=== PATIENT | male | born 1965 | race Hispanic/Latino ===

== ENCOUNTER 2021-01-22 10:44 | Inpatient (IN) | payer SELFPAY ==
[2021-01-22] MEDS ORDERED: cefTRIAXone/NS 1 GM/50 ML 1 GM/50 ML BAG IV NR (11:04)
[2021-01-22] MEDS ORDERED: AZITHROMYCIN/NS 500 MG/250 ML 500 MG/250 ML BAG IV NR (11:04)
--- NOTE | 2021-01-22 11:13 | Emergency Department Report ---
ED Fever HPI - General Chief Complaint: Dyspnea/Respdistress Stated Complaint: ASHLEIGH/COVID POSS X 6 DAYS PUI?: Yes Time Seen by Provider: 01/22/21 10:58 Source: patient, EMS Exam Limitations: no limitations - History of Present Illness Initial Comments: Chief complaint: Shortness of breath, Covid positive HPI: This is a 55-year-old male with history of severe obesity weight 268 pounds and venous insufficiency who presents with severe shortness of breath via EMS. On January 10 patient began having symptoms of Covid 19. He was diagnosed with PCR test on January 16 at [facility]. He was also diagnosed with Covid pneumonia at that time. His oxygen saturation was normal. He was discharged home. Over the past few days, his symptoms worsen. Today his became scared when he seemed "delusional". He also had a episode of incontinence. His symptoms include fever, chills, headache, cough, shortness of breath, body aches. He also has loss of taste and smell. His and 2 children also have similar symptoms. Patient's oxygen saturations 68% on room air according to EMS. He received albuterol, magnesium, Solu-Medrol via EMS. Patient remained hypoxic 82% in spite oxygen via nonrebreather. Patient does not smoke cigarettes. He denies any recent travel. Denies chest pain or leg pain. 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 Timing/Duration: other (Symptoms began 12 days ago, diagnosed with COVID-19 6 days ago at [facility]) Fever Severity/Quality: subjective Associated Symptoms: cough, headache, muscle aches, shortness of breath ED Review of Systems ROS: Stated complaint: ASHLEIGH/COVID POSS X 6 DAYS Other details as noted in HPI Comment: All other systems reviewed and negative Constitutional: chills, fever, malaise Respiratory: cough, shortness of breath, wheezing Cardiovascular: denies: chest pain Gastrointestinal: denies: abdominal pain Neurological: headache ED Past Medical Hx - Past Medical History Previous Medical History?: Yes Additional medical history: Venous insufficiency, severe obesity - Surgical History Past Surgical History?: No - Family History Family history: hypertension - Social History Smoking Status: Former Smoker (Patient stopped smoking 20 years ago) Substance Use Type: None ED Physical Exam - General Limitations: No Limitations General appearance: alert, other (Speaking full sentences with moderate effort, appears out of breath) - Head Head exam: Present: atraumatic, normocephalic - Eye Eye exam: Present: normal appearance - ENT ENT exam: Present: mucous membranes dry - Neck Neck exam: Present: normal inspection, full ROM - Respiratory Respiratory exam: Present: respiratory distress, wheezes, rales, rhonchi, decreased breath sounds. Absent: prolonged expiratory - Cardiovascular Cardiovascular Exam: Present: regular rate, normal rhythm, normal heart sounds. Absent: systolic murmur, diastolic murmur, rubs, gallop - GI/Abdominal GI/Abdominal exam: Present: soft, normal bowel sounds. Absent: distended, tenderness, guarding, rebound - Rectal Rectal exam: Present: deferred - Extremities Exam Extremities exam: Present: other (Hyperpigmented patches nonpitting edema both legs) - Neurological Exam Neurological exam: Present: alert, oriented X3 - Psychiatric Psychiatric exam: Present: normal affect, anxious - Skin Skin exam: Present: warm, rash (Lower legs hyperpigmented discoloration), pallor (Grayish discoloration pale) ED Course Vital Signs 01/22/21 01/22/21 01/22/21 11:05 11:09 11:10 Pulse Rate 66 60 Respiratory 48 H 43 H Rate Blood Pressure 109/40 109/40 O2 Sat by Pulse 91 91 91 Oximetry - Reevaluation(s) Reevaluation #1: 01/22/21 13:04 Repeat blood pressure 125/70. No indication for septic shock. Will need trending lactic acid levels in order to rule out or rule in bacteremia. Patient feels much better after 2-hour course of BiPAP. Normal saline bolus ordered to address dehydration. ED Medical Decision Making - Lab Data Result diagrams: 01/22/21 11:06 01/22/21 11:06 - Radiology Data Radiology results: report reviewed [facility] [address] [place] [address] XRay Report Signed Patient: ABHINAV HUNTER MR#: [id number] : 1965 Acct:[id number] Age/Sex: 55 / M ADM Date: 01/22/21 Loc: ED Attending Dr: Ordering Physician: Catherine Thompson MD Date of Service: 08/16/21 Procedure(s): XR chest 1V ap Accession Number(s): [id number] cc: Catherine Thompson MD Fluoro Time In Minutes: XR chest 1V ap INDICATION / CLINICAL INFORMATION: COVID positive hx of Pneumonia hypoxia COMPARISON: None available. FINDINGS: SUPPORT DEVICES: None. HEART / MEDIASTINUM: No significant abnormality. LUNGS / PLEURA: Patchy bilateral airspace disease in a peripheral predilection. Costophrenic sulci are sharp. No pneumothorax. ADDITIONAL FINDINGS: No significant additional findings. IMPRESSION: 1. Bilateral airspace disease consistent with patient's provided history of Covid pneumonia. Signer Name: Linwood Webber MD Signed: 01/22/2021 11:30 AM Workstation Name: [id number] Transcribed By: CS Dictated By: Linwood Webber MD Electronically Authenticated By: Linwood Webber MD Signed Date/Time: 01/22/21 113 DD/ 1130 TD/TT: - Medical Decision Making Acute respiratory failure hypoxia due to COVID-19 multifocal pneumonia. Patient received magnesium, Solu-Medrol and albuterol. Patient's oxygen saturation 59% on room air upon arrival. I observe hypoxia while patient was being placed on noninvasive positive pressure ventilation. Patient received ceftriaxone and azithromycin for possible bacterial superinfection. Patient is admitted to IMCU in fair condition. Patient does have leukocytosis with left shift, bacterial infection is a consideration. Covid markers are elevated including D-dimer ferritin LDH CRP. I discussed case with admitting hospitalist. Patient is admitted to IMCU fair condition. Critical Care Time: Yes Critical care time in (mins) excluding proc time.: 40 Critical care attestation.: If time is entered above; I have spent that time in minutes in the direct care of this critically ill patient, excluding procedure time. 40 minutes of critical care time excluding procedures were used in the care of the patient. After hearing EMS report over the radio, I asked charge nurse to arrange for respiratory therapist. I came immediately to the bedside upon patient's arrival. I obtained history from EMS at the bedside. I immediately asked respiratory therapist to apply noninvasive positive pressure ventilation with BiPAP. I was concerned for imminent airway compromise. I discussed treatment plan with the nursing team members. I reviewed electronic record. Patient required multiple interventions and reassessments. ED Disposition Clinical Impression: Acute respiratory failure due to COVID-19, Multifocal pneumonia Disposition: 09 ADMITTED INPATIENT Is pt being admited?: Yes Does the pt Need Aspirin: No Condition: Fair Instructions: Bacterial Pneumonia (ED)
--- NOTE | 2021-01-22 11:34 | XRay Report ---
XR chest 1V ap INDICATION / CLINICAL INFORMATION: COVID positive hx of Pneumonia hypoxia COMPARISON: None available. FINDINGS: SUPPORT DEVICES: None. HEART / MEDIASTINUM: No significant abnormality. LUNGS / PLEURA: Patchy bilateral airspace disease in a peripheral predilection. Costophrenic sulci ar e sharp. No pneumothorax. ADDITIONAL FINDINGS: No significant additional findings. IMPRESSION: 1. Bilateral airspace disease consistent with patient's provided history of Covid pneumonia. Signer Name: Linwood Webber MD Signed: 01/22/2021 11:30 AM Workstation Name: [id number]
[2021-01-22 11:35] LABS: Hemoglobin 15.8 gm/dl (11.8-15.2); Mean Corpuscular HGB Conc 32 % (32-34); Mean Corpuscular Volume 87 fl (84-94); Platelet Count 329 K/mm3 (140-440); Red Blood Count 5.63 M/mm3 (3.65-5.03); Red Cell Distribution Width 14.2 % (13.2-15.2)
[2021-01-22 11:56] LABS: Alanine Aminotransferase 25 units/L (7-56); Albumin 2.9 g/dL (3.9-5); BUN/Creatinine Ratio 36; Blood Urea Nitrogen 32 mg/dL (9-20); C-Reactive Protein 3.3 mg/dL (0.00-1.30); Calcium 8.7 mg/dL (8.4-10.2); Hemolysis Index 9
[2021-01-22 12:10] LABS: Band Neutrophils # (Manual) 0.4 K/mm3; Total Cells Counted 100
[2021-01-22 12:11] LABS: Platelet Estimate Consistent w Auto; RBC Morphology Normal
[2021-01-22] MEDS ORDERED: SODIUM CHLORIDE 0.9% 1000 ML 1,000 ML IV ONE (12:59)
--- NOTE | 2021-01-22 23:01 | History and Physical Report ---
History of Present Illness Date of examination: 01/22/21 Date of admission: 01/22/21 13:01 Chief complaint: Shortness of breath of 4 days History of present illness: 55-year-old male with history of morbid obesity weighing about 268 pounds and venous insufficiency comes in for shortness of breath of 4 days duration. Patient started having symptoms of a viral syndrome around January 10. Patient was diagnosed with positive PCR test for khan on January 16 at [facility]. Because he was saturating well on room air patient was discharged home with instructions. Patient started worsening over the last 4 days and becoming very short of breath and also delusional. He also had an episode of incontinence. Patient symptoms improved fever chills headache cough shortness of breath and body aches. Patient also has loss of taste and smell. Is his and 2 children also have similar symptoms. Patient oxygen saturation was 60% on room air according to EMS. He received albuterol magnesium Solu-Medrol by EMS. Patient remained hypoxic 82% in spite of oxygen via nonrebreather. And patient was started on BiPAP in the emergency room. Patient is not a smoker. No recent travel. No chest pain or leg pain. 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 - Past Medical History Previous Medical History?: Yes Additional medical history: Venous insufficiency, severe obesity - Surgical History Past Surgical History?: No - Family History Family history: hypertension - Social History Smoking Status: Former Smoker (Patient stopped smoking 20 years ago) Substance Use Type: None Review of Systems ROS: Stated complaint: ASHLEIGH/COVID POSS X 6 DAYS Other details as noted in HPI Comment: All other systems reviewed and negative Constitutional: chills, fever, malaise Respiratory: cough, shortness of breath, wheezing Cardiovascular: denies: chest pain Gastrointestinal: denies: abdominal pain Neurological: headache Medications and Allergies Allergies Allergy/AdvReac Type Severity Reaction Status Date / Time No Known Allergies Allergy Unverified 01/22/21 11:26 Exam - Constitutional Vitals: Temp Pulse Resp BP Pulse Ox 98.1 F 56 L 36 H 130/52 92 01/22/21 20:08 01/22/21 22:15 01/22/21 22:15 01/22/21 22:15 01/22/21 22:15 General appearance: Present: severe distress, well-nourished - EENT Eyes: Present: PERRL ENT: hearing intact, clear oral mucosa - Neck Neck: Present: supple, normal ROM - Respiratory Respiratory effort: normal Respiratory: bilateral: CTA, rhonchi (Scattered rhonchi), wheezing (Scattered rhonchi) - Cardiovascular Heart rate: 78 Rhythm: regular Heart Sounds: Present: S1 & S2. Absent: rub, click - Extremities Extremities: no ischemia, pulses symmetrical, No edema Peripheral Pulses: within normal limits - Abdominal General gastrointestinal: Present: soft, non-tender, non-distended, normal bowel sounds Male genitourinary: Present: normal - Rectal Rectal Exam: deferred - Integumentary Integumentary: Present: clear, warm, dry - Musculoskeletal Musculoskeletal: gait normal, strength equal bilaterally - Psychiatric Psychiatric: appropriate mood/affect, intact judgment & insight - Neurologic Neurologic: CNII-XII intact, moves all extremities - Allied Health Allied health notes reviewed: nursing, case management HEART Score - HEART Score History: Slightly suspicious Age: 45-65 Risk factors: 1-2 risk factors Troponin: < normal limit - Critical Actions Critical Actions: 0-3 pts:0.9-1.7%risk of adverse cardiac event.Candidate for discharge Results - Labs CBC & Chem 7: 01/23/21 05:29 01/23/21 05:29 Labs: Laboratory Last Values WBC 19.2 K/mm3 (4.5-11.0) H 01/22/21 11:06 RBC 5.63 M/mm3 (3.65-5.03) H 01/22/21 11:06 Hgb 15.8 gm/dl (11.8-15.2) H 01/22/21 11:06 Hct 49.0 % (35.5-45.6) H 01/22/21 11:06 MCV 87 fl (84-94) 01/22/21 11:06 MCH 28 pg (28-32) 01/22/21 11:06 MCHC 32 % (32-34) 01/22/21 11:06 RDW 14.2 % (13.2-15.2) 01/22/21 11:06 Plt Count 329 K/mm3 (140-440) 01/22/21 11:06 Add Manual Diff Complete 01/22/21 11:06 Total Counted 100 01/22/21 11:06 Seg Neuts % (Manual) 92.0 % (40.0-70.0) H 01/22/21 11:06 Band Neutrophils % 2.0 % 01/22/21 11:06 Lymphocytes % (Manual) 1.0 % (13.4-35.0) L 01/22/21 11:06 Monocytes % (Manual) 5.0 % (0.0-7.3) 01/22/21 11:06 Nucleated RBC % 1.0 % (0.0-0.9) H 01/22/21 11:06 Seg Neutrophils # Man 17.7 K/mm3 (1.8-7.7) H 01/22/21 11:06 Band Neutrophils # 0.4 K/mm3 01/22/21 11:06 Lymphocytes # (Manual) 0.2 K/mm3 (1.2-5.4) L 01/22/21 11:06 Abs React Lymphs (Man) 0.0 K/mm3 01/22/21 11:06 Monocytes # (Manual) 1.0 K/mm3 (0.0-0.8) H 01/22/21 11:06 Eosinophils # (Manual) 0.0 K/mm3 (0.0-0.4) 01/22/21 11:06 Basophils # (Manual) 0.0 K/mm3 (0.0-0.1) 01/22/21 11:06 Metamyelocytes # 0.0 K/mm3 01/22/21 11:06 Myelocytes # 0.0 K/mm3 01/22/21 11:06 Promyelocytes # 0.0 K/mm3 01/22/21 11:06 Blast Cells # 0.0 K/mm3 01/22/21 11:06 WBC Morphology Not Reportable 01/22/21 11:06 Hypersegmented Neuts Not Reportable 01/22/21 11:06 Hyposegmented Neuts Not Reportable 01/22/21 11:06 Hypogranular Neuts Not Reportable 01/22/21 11:06 Smudge Cells Not Reportable 01/22/21 11:06 Toxic Granulation Not Reportable 01/22/21 11:06 Toxic Vacuolation Not Reportable 01/22/21 11:06 Dohle Bodies Not Reportable 01/22/21 11:06 Pelger-Huet Anomaly Not Reportable 01/22/21 11:06 Rd Rods Not Reportable 01/22/21 11:06 Platelet Estimate Consistent w auto 01/22/21 11:06 Clumped Platelets Not Reportable 01/22/21 11:06 Plt Clumps, EDTA Not Reportable 01/22/21 11:06 Large Platelets Not Reportable 01/22/21 11:06 Giant Platelets Not Reportable 01/22/21 11:06 Platelet Satelliting Not Reportable 01/22/21 11:06 Plt Morphology Comment Not Reportable 01/22/21 11:06 RBC Morphology Normal 01/22/21 11:06 Dimorphic RBCs Not Reportable 01/22/21 11:06 Polychromasia Not Reportable 01/22/21 11:06 Hypochromasia Not Reportable 01/22/21 11:06 Poikilocytosis Not Reportable 01/22/21 11:06 Anisocytosis Not Reportable 01/22/21 11:06 Microcytosis Not Reportable 01/22/21 11:06 Macrocytosis Not Reportable 01/22/21 11:06 Spherocytes Not Reportable 01/22/21 11:06 Pappenheimer Bodies Not Reportable 01/22/21 11:06 Sickle Cells Not Reportable 01/22/21 11:06 Target Cells Not Reportable 01/22/21 11:06 Tear Drop Cells Not Reportable 01/22/21 11:06 Ovalocytes Not Reportable 01/22/21 11:06 Helmet Cells Not Reportable 01/22/21 11:06 [place] Bodies Not Reportable 01/22/21 11:06 Sprague Rings Not Reportable 01/22/21 11:06 Cove Cells Not Reportable 01/22/21 11:06 Bite Cells Not Reportable 01/22/21 11:06 Crenated Cell Not Reportable 01/22/21 11:06 Elliptocytes Not Reportable 01/22/21 11:06 Acanthocytes (Spur) Not Reportable 01/22/21 11:06 Rouleaux Not Reportable 01/22/21 11:06 Hemoglobin C Crystals Not Reportable 01/22/21 11:06 Schistocytes Not Reportable 01/22/21 11:06 Malaria parasites Not Reportable 01/22/21 11:06 Lloyd Bodies Not Reportable 01/22/21 11:06 Hem Pathologist Commnt No 01/22/21 11:06 D-Dimer 2625.11 ng/mlDDU (0-234) H 01/22/21 11:06 ABG pH 7.449 (7.320-7.450) 01/22/21 12:03 POC ABG pCO2 30.7 mmHg (32.0-48.0) L 01/22/21 12:03 POC ABG pO2 61.4 mmHg (83-108) L 01/22/21 12:03 POC ABG HCO3 20.9 01/22/21 12:03 ABG O2 Saturation 92.5 (0-100) 01/22/21 12:03 POC ABG Base Excess -1.9 01/22/21 12:03 ABG Hemoglobin 15.80 (12.0-17.5) 01/22/21 12:03 ABG Oxyhemoglobin 90.5 (94-98) L 01/22/21 12:03 ABG Methemoglobin 0.5 (0.0-1.5) 01/22/21 12:03 Carboxyhemoglobin 1.7 (0.5-1.5) H 01/22/21 12:03 FiO2 % 100 01/22/21 12:03 Sodium 140 mmol/L (137-145) 01/22/21 11:06 Potassium 3.3 mmol/L (3.6-5.0) L 01/22/21 11:06 Chloride 102.8 mmol/L (98-107) 01/22/21 11:06 Carbon Dioxide 20 mmol/L (22-30) L 01/22/21 11:06 Anion Gap 21 mmol/L 01/22/21 11:06 BUN 32 mg/dL (9-20) H 01/22/21 11:06 Creatinine 0.9 mg/dL (0.8-1.3) 01/22/21 11:06 Estimated GFR > 60 ml/min 01/22/21 11:06 BUN/Creatinine Ratio 36 % 01/22/21 11:06 Glucose 130 mg/dL (75-100) H 01/22/21 11:06 Glucose 130 mg/dL (75-100) H 01/22/21 11:06 Lactic Acid 4.20 mmol/L (0.7-2.0) H* 01/22/21 11:06 Calcium 8.7 mg/dL (8.4-10.2) 01/22/21 11:06 Ferritin 557.5 ng/mL (30.0-300.0) H 01/22/21 11:06 Total Bilirubin 0.70 mg/dL (0.1-1.2) 01/22/21 11:06 AST 34 units/L (5-40) 01/22/21 11:06 ALT 25 units/L (7-56) 01/22/21 11:06 Alkaline Phosphatase 89 units/L (35-129) 01/22/21 11:06 Lactate Dehydrogenase 799 units/L (91-180) H 01/22/21 11:06 C-Reactive Protein 3.30 mg/dL (0.00-1.30) H 01/22/21 11:06 Total Protein 7.0 g/dL (6.3-8.2) 01/22/21 11:06 Albumin 2.9 g/dL (3.9-5) L 01/22/21 11:06 Albumin/Globulin Ratio 0.7 % 01/22/21 11:06 Procalcitonin 0.15 ng/mL (<0.15) 01/22/21 11:06 Microbiology: Microbiology 01/22/21 11:06 Peripheral/Venous Blood Culture - Preliminary Culture in Progress 01/22/21 11:06 Peripheral/Venous Blood Culture - Preliminary Culture in Progress - Imaging and Cardiology EKG: report reviewed (Sinus tachycardia no acute ST-T wave changes) Chest x-ray: report reviewed Imaging and Cardiology: Chest x-ray Bilateral airspace disease consistent with patient's provided history of Covid pneumonia Assessment and Plan Advance Directives: Yes (full code) VTE prophylaxis?: Chemical - Patient Problems (1) Acute respiratory failure due to COVID-19 Current Visit: Yes Status: Acute Plan to address problem: Patient on BiPAP and high oxygen requirements Admission to IMCU Patient may need intubation down the road Pulmonary consult requested (2) Sepsis Current Visit: Yes Status: Acute Plan to address problem: Patient is a high white count and elevated inflammatory markers. Ferritin is 557 LDH is 749 CRP is 3.3. (3) Multifocal pneumonia Current Visit: Yes Status: Acute Plan to address problem: Patient initiated on IV ceftriaxone and Zithromax Recheck procalcitonin Will defer to ID regarding discontinuing antibiotics (4) Person under investigation for COVID-19 Current Visit: Yes Status: Acute Plan to address problem: Coronavirus PCR in a.m. Most probably Covid pneumonia Patient started on IV Decadron 8 mg every 24 Patient was tested positive for Covid on January 16 (5) Malnutrition Current Visit: Yes Status: Acute (6) Malnutrition Current Visit: Yes Status: Chronic Qualifiers: Protein-calorie malnutrition severity: moderate Qualified Code(s): E44.0 - Moderate protein-calorie malnutrition Plan to address problem: On dietary supplements (7) DVT prophylaxis Current Visit: Yes Status: Acute Plan to address problem: On Lovenox 40 mg subcu daily and GI prophylaxis
[2021-01-22] MEDS ORDERED: ONDANSETRON 4 MG/2 ML INJ IV PRN (23:03)
[2021-01-22] MEDS ORDERED: oxyCODONE /ACETAMINOPHEN 5-325MG TAB PO PRN (23:03)
[2021-01-22] MEDS ORDERED: METOCLOPRAMIDE 10 MG/2 ML INJ IV PRN (23:03)
[2021-01-22] MEDS ORDERED: ACETAMINOPHEN 325 MG TAB PO PRN (23:03)
[2021-01-23] MEDS: dexAMETHasone 4 MG/ML VIAL IV SCH (00:37)
[2021-01-23] MEDS: FAMOTIDINE 20 MG/2 ML INJ IV SCH ×2 (00:37→10:05)
[2021-01-23 06:27] LABS: Hemoglobin 15.3 gm/dl (11.8-15.2); Lymphocytes # (Auto) 0.8 K/mm3 (1.2-5.4); Lymphocytes % (Auto) 4.4 % (13.4-35.0); Mean Corpuscular HGB Conc 33 % (32-34); Mean Corpuscular Volume 88 fl (84-94); Monocytes # (Auto) 1.2 K/mm3 (0.0-0.8); Monocytes % (Auto) 6.4 % (0.0-7.3); Platelet Count 223 K/mm3 (140-440); Red Blood Count 5.24 M/mm3 (3.65-5.03); Red Cell Distribution Width 14.1 % (13.2-15.2)
[2021-01-23 06:32] LABS: Alanine Aminotransferase 24 units/L (7-56); Albumin 2.9 g/dL (3.9-5); BUN/Creatinine Ratio 32; Blood Urea Nitrogen 29 mg/dL (9-20); Calcium 8.6 mg/dL (8.4-10.2); Hemolysis Index 16
[2021-01-23] MEDS ORDERED: POTASSIUM CHLORIDE ER 20 MEQ TAB PO NR (07:30)
[2021-01-23] MEDS: cefTRIAXone/NS 2 GM/100 ML 2 GM/100 ML BAG IV SCH (10:05)
[2021-01-23] MEDS: ENOXAPARIN 40 MG/0.4 ML INJ SUB-Q SCH (10:05)
--- NOTE | 2021-01-23 11:28 | Consultation ---
History of Present Illness Consult date: 01/23/21 Reason for consult: dyspnea, cough History of present illness: 55-year-old male with history of morbid obesity and venous insufficiency comes in for shortness of breath of 4 days duration. Patient started having symptoms of a viral syndrome around January 10. Patient was diagnosed with positive PCR test for khan on January 16 at [facility]. Because he was saturating well on room air patient was discharged home with instructions. Patient started worsening over the last 4 days and becoming very short of breath and also delusional. He also had an episode of incontinence. Patient symptoms improved fever chills headache cough shortness of breath and body aches. Patient also has loss of taste and smell. His and 2 children also have similar symptoms. Patient oxygen saturation was 60% on room air according to EMS. He received albuterol magnesium Solu-Medrol by EMS. Patient remained hypoxic 82% in spite of oxygen via nonrebreather. And patient was started on BiPAP in the emergency room. Patient has history of smoking. Says stopped 2 years ago. Not clear how many years he smoked and not clear how many packs he smoked. Denies alcohol or drug abuse. 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 and has two children Patient awake. Patient presently on BIPAP,28/05, rate 20, FIO2 95% and O2 saturation running 97%. Patient still having mild shortness of breath on BIPAP. Patient running Low grade temp. Has leukocytosis. Blood pressure 128/56 . Pulse 52. Patient presently on Dexamethasone, REMDESIVIR,S/C Lovenox, Famotidine, Ceftriaxone and Zithromax. Past History Past Medical History: other (Morbid Obesity. Venous insufficiency.) Medications and Allergies Allergies Allergy/AdvReac Type Severity Reaction Status Date / Time No Known Allergies Allergy Unverified 01/22/21 11:26 Active Meds: Active Medications Acetaminophen (Acetaminophen 325 Mg Tab) 650 mg PO Q4H PRN PRN Reason: Pain MILD(1-3)/Fever >100.5/ANDERSEN Dexamethasone (Dexamethasone 4 Mg/Ml Vial) 8 mg IV Q24HR@2200 JACK Stop: 01/31/21 22:01 Last Admin: 01/23/21 00:37 Dose: 8 mg Documented by: Enoxaparin Sodium (Enoxaparin 40 Mg/0.4 Ml Inj) 40 mg SUB-Q QDAY [facility] Last Admin: 01/23/21 10:05 Dose: 40 mg Documented by: Famotidine (Famotidine 20 Mg/2 Ml Inj) 20 mg IV BID [facility] Last Admin: 01/23/21 10:05 Dose: 20 mg Documented by: Hydromorphone HCl (Hydromorphone 1 Mg/1 Ml Inj) 0.5 mg IV Q3H PRN PRN Reason: Pain , Severe (7-10) Azithromycin (Zithromax/Ns) 500 mg in 250 mls @ 250 mls/hr IV Q24H [facility] Ceftriaxone Sodium (Rocephin/Ns 2 Gm/100 Ml) 2 gm in 100 mls @ 200 mls/hr IV Q24HR [facility]; Protocol Last Admin: 01/23/21 10:05 Dose: 200 mls/hr Documented by: Metoclopramide HCl (Metoclopramide 10 Mg/2 Ml Inj) 10 mg IV Q6H PRN PRN Reason: Nausea And Vomiting Ondansetron HCl (Ondansetron 4 Mg/2 Ml Inj) 4 mg IV Q8H PRN PRN Reason: Nausea And Vomiting Oxycodone/Acetaminophen (Oxycodone /Acetaminophen 5-325mg Tab) 1 tab PO Q6H PRN PRN Reason: Pain, Moderate (4-6) Potassium Chloride (Potassium Chloride Er 20 Meq Tab) 20 meq PO ONCE NR Stop: 01/23/21 12:00 Sodium Chloride (Sodium Chloride 0.9% 10 Ml Flush Syringe) 10 ml IV BID [facility] Last Admin: 01/23/21 10:06 Dose: 10 ml Documented by: Sodium Chloride (Sodium Chloride 0.9% 10 Ml Flush Syringe) 10 ml IV PRN PRN PRN Reason: LINE FLUSH Physical Examination Vital signs: Vital Signs Pulse Ox 90 01/22/21 11:02 General appearance: alert, appears uncomfortable, other (Morbidly ,slight increased work of breathing on BIPAP.) Eyes: non-icteric ENT: oropharynx moist Neck: supple, no lymphadenopathy, no JVD Effort: mildly labored Ascultation: Bilateral: diminished breath sounds (at the bases.), rales, rhonchi Cardiovascular: regular rate and rhythm Gastrointestinal: normoactive bowel sounds, soft, non-tender Integumentary: normal Extremities: no cyanosis, no edema Musculoskeletal: no deformities Gait: other (Resting in bed.) normal mental status, non-focal exam, pupils equal and round, CN II-XII normal depressed Results - Laboratory Findings CBC and BMP: 01/23/21 05:29 01/24/21 05:50 ABG ABG pH 7.449 (7.320-7.450) 01/22/21 12:03 POC ABG pCO2 30.7 mmHg (32.0-48.0) L 01/22/21 12:03 POC ABG pO2 61.4 mmHg (83-108) L 01/22/21 12:03 POC ABG HCO3 20.9 01/22/21 12:03 ABG O2 Saturation 92.5 (0-100) 01/22/21 12:03 PT/INR, D-dimer D-Dimer 2625.11 ng/mlDDU (0-234) H 01/22/21 11:06 Abnormal lab findings: Abnormal Labs 01/22/21 01/22/21 01/22/21 11:06 11:06 11:06 WBC RBC Hgb Hct Lymph % (Auto) Lymph # (Auto) [place] # (Auto) Seg Neutrophils % Seg Neuts % (Manual) Lymphocytes % (Manual) Nucleated RBC % Seg Neutrophils # Seg Neutrophils # Man Lymphocytes # (Manual) Monocytes # (Manual) D-Dimer 2625.11 H POC ABG pCO2 POC ABG pO2 ABG Oxyhemoglobin Carboxyhemoglobin Potassium Carbon Dioxide BUN Glucose 130 H Hemoglobin A1c Lactic Acid Ferritin 557.5 H Lactate Dehydrogenase 799 H C-Reactive Protein 3.30 H Albumin 01/22/21 01/22/21 01/22/21 11:06 11:06 11:06 WBC 19.2 H RBC 5.63 H Hgb 15.8 H Hct 49.0 H Lymph % (Auto) Lymph # (Auto) [place] # (Auto) Seg Neutrophils % Seg Neuts % (Manual) 92.0 H Lymphocytes % (Manual) 1.0 L Nucleated RBC % 1.0 H Seg Neutrophils # Seg Neutrophils # Man 17.7 H Lymphocytes # (Manual) 0.2 L Monocytes # (Manual) 1.0 H D-Dimer POC ABG pCO2 POC ABG pO2 ABG Oxyhemoglobin Carboxyhemoglobin Potassium 3.3 L Carbon Dioxide 20 L BUN 32 H Glucose 130 H Hemoglobin A1c Lactic Acid 4.20 H* Ferritin Lactate Dehydrogenase C-Reactive Protein Albumin 2.9 L 01/22/21 01/22/21 01/23/21 11:06 12:03 05:29 WBC 19.0 H RBC 5.24 H Hgb 15.3 H Hct 46.0 H Lymph % (Auto) 4.4 L Lymph # (Auto) 0.8 L [place] # (Auto) 1.2 H Seg Neutrophils % 89.1 H Seg Neuts % (Manual) Lymphocytes % (Manual) Nucleated RBC % Seg Neutrophils # 16.9 H Seg Neutrophils # Man Lymphocytes # (Manual) Monocytes # (Manual) D-Dimer POC ABG pCO2 30.7 L POC ABG pO2 61.4 L ABG Oxyhemoglobin 90.5 L Carboxyhemoglobin 1.7 H Potassium Carbon Dioxide BUN Glucose Hemoglobin A1c 6.2 H Lactic Acid Ferritin Lactate Dehydrogenase C-Reactive Protein Albumin 01/23/21 05:29 WBC RBC Hgb Hct Lymph % (Auto) Lymph # (Auto) [place] # (Auto) Seg Neutrophils % Seg Neuts % (Manual) Lymphocytes % (Manual) Nucleated RBC % Seg Neutrophils # Seg Neutrophils # Man Lymphocytes # (Manual) Monocytes # (Manual) D-Dimer POC ABG pCO2 POC ABG pO2 ABG Oxyhemoglobin Carboxyhemoglobin Potassium 3.5 L Carbon Dioxide BUN 29 H Glucose 132 H Hemoglobin A1c Lactic Acid Ferritin Lactate Dehydrogenase C-Reactive Protein Albumin 2.9 L - Diagnostic Findings Chest x-ray: report reviewed, image reviewed Additional studies: XR chest 1V ap 01/22/21 INDICATION / CLINICAL INFORMATION: COVID positive hx of Pneumonia hypoxia COMPARISON: None available. FINDINGS: SUPPORT DEVICES: None. HEART / MEDIASTINUM: No significant abnormality. LUNGS / PLEURA: Patchy bilateral airspace disease in a peripheral predilection. Costophrenic sulci are sharp. No pneumothorax. ADDITIONAL FINDINGS: No significant additional findings. IMPRESSION: 1. Bilateral airspace disease consistent with patient's provided history of Covid pneumonia. Assessment and Plan 55-year-old male with history of morbid obesity and venous insufficiency comes in for shortness of breath of 4 days duration. Patient started having symptoms of a viral syndrome around January 10. Patient was diagnosed with positive PCR test for khan on January 16 at [facility]. Because he was saturating well on room air patient was discharged home with instructions. Patient started worsening over the last 4 days and becoming very short of breath and also de lusional. He also had an episode of incontinence. Patient symptoms improved fever chills headache cough shortness of breath and body aches. Patient also has loss of taste and smell. His and 2 children also have similar symptoms. Patient oxygen saturation was 60% on room air according to EMS. He received albuterol magnesium Solu-Medrol by EMS. Patient remained hypoxic 82% in spite of oxygen via nonrebreather. And patient was started on BiPAP in the emergency room. Patient has history of smoking. Says stopped 2 years ago. Not clear how many years he smoked and not clear how many packs he smoked. Denies alcohol or drug abuse. 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 Patient presently on BIPAP,20/12, rate 20, FIO2 95% and O2 saturation running 97%. Patient still having mild shortness of breath on BIPAP. Patient running Low grade temp. Has leukocytosis. Blood pressure 128/56 . Pulse 52. Patient presently on Dexamethasone, REMDESIVIR,S/C Lovenox, Famotidine, Ceftriaxone and Zithromax. - Patient Problems (1) Acute respiratory failure due to COVID-19 Current Visit: Yes Status: Acute Plan to address problem: BIPAP,20/12, rate 20, FIO2 95% Continue dexamethasone Continue S/C lovenox Continue famotidine. Contiue ceftriaxone and zithromax (2) Multifocal pneumonia Current Visit: Yes Status: Acute Plan to address problem: Patient is on ceftriaxone and zithromax. (3) Sepsis Current Visit: Yes Status: Acute Plan to address problem: On ceftriaxone and zithromax. (4) Morbid obesity with BMI of 40.0-44.9, adult Current Visit: Yes Status: Acute Plan to address problem: Recommend to loose weight. Diet and exercise.
[2021-01-23] MEDS: AZITHROMYCIN/NS 500 MG/250 ML 500 MG/250 ML BAG IV SCH (11:44)
--- NOTE | 2021-01-23 12:44 | Progress Note ---
Assessment and Plan Assessment and plan: -- Acute respiratory failure due to COVID-19/on BiPAP Current Visit: Yes Status: Acute Patient on BiPAP and high oxygen requirements Admission to IMCU Patient may need intubation if no improvement Pulmonary consult requested -- Sepsis/due to COVID-19 pneumonia Current Visit: Yes Status: Acute Patient is a high white count and elevated inflammatory markers. Ferritin is 557 LDH is 749 CRP is 3.3. -- Multifocal pneumonia Current Visit: Yes Status: Acute Patient initiated on IV ceftriaxone and Zithromax Recheck procalcitonin Will defer to ID regarding discontinuing antibiotics -- Person under investigation for COVID-19 Current Visit: Yes Status: Acute Coronavirus PCR in a.m. Most probably Covid pneumonia Patient started on IV Decadron 8 mg every 24 Patient was tested positive for Covid on January 16 No need for remdesivir[as patient was diagnosed 1 week ago] --Severe protein calorie malnutrition Current Visit: Yes Status: Chronic On dietary supplements, nutrition consult --Morbid obesity; BMI 43.9 Current Visit: Yes Status: Chronic Patient needs weight reduction when medically stable Dietary modification, lifestyle changes, exercise as tolerated When stable --DVT prophylaxis Current Visit: Yes Status: Acute On Lovenox 40 mg subcu daily and GI prophylaxis We will closely monitor the patient and adjust management as needed Follow khan PCR test, consult ID if needed History Interval history: I have seen and examined the patient at the bedside Following strict isolation precautions and PPE protocols per COVID-19 guidelines . Patient's chart and medications reviewed Patient feels slightly better Patient PUI, and contacting droplet isolation Vital signs reviewed Hospitalist Physical - Constitutional Vitals: Temp Pulse Resp BP Pulse Ox 99.8 F H 48 L 36 H 125/57 96 01/23/21 09:43 01/23/21 11:23 01/23/21 11:23 01/23/21 11:23 01/23/21 11:23 General appearance: Present: mild distress, well-nourished, obese (Morbidly obese) - EENT Eyes: Present: PERRL, EOM intact - Neck Neck: Present: supple, normal ROM - Respiratory Respiratory effort: normal Respiratory: bilateral: diminished, negative: rales, rhonchi, wheezing - Cardiovascular Rhythm: regular Heart Sounds: Present: S1 & S2 - Extremities Extremities: no ischemia, No edema - Abdominal General gastrointestinal: soft, non-tender, non-distended, normal bowel sounds - Integumentary Integumentary: Present: clear, warm - Psychiatric Psychiatric: appropriate mood/affect, cooperative - Neurologic Neurologic: CNII-XII intact, moves all extremities HEART Score - HEART Score Age: 45-65 Risk factors: 1-2 risk factors Troponin: < normal limit - Critical Actions Critical Actions: 0-3 pts:0.9-1.7%risk of adverse cardiac event.Candidate for discharge Results - Labs CBC & Chem 7: 01/23/21 05:29 01/23/21 05:29 Labs: Laboratory Last Values WBC 19.0 K/mm3 (4.5-11.0) H 01/23/21 05:29 RBC 5.24 M/mm3 (3.65-5.03) H 01/23/21 05:29 Hgb 15.3 gm/dl (11.8-15.2) H 01/23/21 05:29 Hct 46.0 % (35.5-45.6) H 01/23/21 05:29 MCV 88 fl (84-94) 01/23/21 05:29 MCH 29 pg (28-32) 01/23/21 05:29 MCHC 33 % (32-34) 01/23/21 05:29 RDW 14.1 % (13.2-15.2) 01/23/21 05:29 Plt Count 223 K/mm3 (140-440) 01/23/21 05:29 Lymph % (Auto) 4.4 % (13.4-35.0) L 01/23/21 05:29 [place] % (Auto) 6.4 % (0.0-7.3) 01/23/21 05:29 Lymph # (Auto) 0.8 K/mm3 (1.2-5.4) L 01/23/21 05:29 [place] # (Auto) 1.2 K/mm3 (0.0-0.8) H 01/23/21 05:29 Add Manual Diff Complete 01/22/21 11:06 Total Counted 100 01/22/21 11:06 Seg Neutrophils % 89.1 % (40.0-70.0) H 01/23/21 05:29 Seg Neuts % (Manual) 92.0 % (40.0-70.0) H 01/22/21 11:06 Band Neutrophils % 2.0 % 01/22/21 11:06 Lymphocytes % (Manual) 1.0 % (13.4-35.0) L 01/22/21 11:06 Monocytes % (Manual) 5.0 % (0.0-7.3) 01/22/21 11:06 Nucleated RBC % 1.0 % (0.0-0.9) H 01/22/21 11:06 Seg Neutrophils # 16.9 K/mm3 (1.8-7.7) H 01/23/21 05:29 Seg Neutrophils # Man 17.7 K/mm3 (1.8-7.7) H 01/22/21 11:06 Band Neutrophils # 0.4 K/mm3 01/22/21 11:06 Lymphocytes # (Manual) 0.2 K/mm3 (1.2-5.4) L 01/22/21 11:06 Abs React Lymphs (Man) 0.0 K/mm3 01/22/21 11:06 Monocytes # (Manual) 1.0 K/mm3 (0.0-0.8) H 01/22/21 11:06 Eosinophils # (Manual) 0.0 K/mm3 (0.0-0.4) 01/22/21 11:06 Basophils # (Manual) 0.0 K/mm3 (0.0-0.1) 01/22/21 11:06 Metamyelocytes # 0.0 K/mm3 01/22/21 11:06 Myelocytes # 0.0 K/mm3 01/22/21 11:06 Promyelocytes # 0.0 K/mm3 01/22/21 11:06 Blast Cells # 0.0 K/mm3 01/22/21 11:06 WBC Morphology Not Reportable 01/22/21 11:06 Hypersegmented Neuts Not Reportable 01/22/21 11:06 Hyposegmented Neuts Not Reportable 01/22/21 11:06 Hypogranular Neuts Not Reportable 01/22/21 11:06 Smudge Cells Not Reportable 01/22/21 11:06 Toxic Granulation Not Reportable 01/22/21 11:06 Toxic Vacuolation Not Reportable 01/22/21 11:06 Dohle Bodies Not Reportable 01/22/21 11:06 Pelger-Huet Anomaly Not Reportable 01/22/21 11:06 Rd Rods Not Reportable 01/22/21 11:06 Platelet Estimate Consistent w auto 01/22/21 11:06 Clumped Platelets Not Reportable 01/22/21 11:06 Plt Clumps, EDTA Not Reportable 01/22/21 11:06 Large Platelets Not Reportable 01/22/21 11:06 Giant Platelets Not Reportable 01/22/21 11:06 Platelet Satelliting Not Reportable 01/22/21 11:06 Plt Morphology Comment Not Reportable 01/22/21 11:06 RBC Morphology Normal 01/22/21 11:06 Dimorphic RBCs Not Reportable 01/22/21 11:06 Polychromasia Not Reportable 01/22/21 11:06 Hypochromasia Not Reportable 01/22/21 11:06 Poikilocytosis Not Reportable 01/22/21 11:06 Anisocytosis Not Reportable 01/22/21 11:06 Microcytosis Not Reportable 01/22/21 11:06 Macrocytosis Not Reportable 01/22/21 11:06 Spherocytes Not Reportable 01/22/21 11:06 Pappenheimer Bodies Not Reportable 01/22/21 11:06 Sickle Cells Not Reportable 01/22/21 11:06 Target Cells Not Reportable 01/22/21 11:06 Tear Drop Cells Not Reportable 01/22/21 11:06 Ovalocytes Not Reportable 01/22/21 11:06 Helmet Cells Not Reportable 01/22/21 11:06 [place] Bodies Not Reportable 01/22/21 11:06 [place] Rings Not Reportable 01/22/21 11:06 Claudia Cells Not Reportable 01/22/21 11:06 Bite Cells Not Reportable 01/22/21 11:06 Crenated Cell Not Reportable 01/22/21 11:06 Elliptocytes Not Reportable 01/22/21 11:06 Acanthocytes (Spur) Not Reportable 01/22/21 11:06 Rouleaux Not Reportable 01/22/21 11:06 Hemoglobin C Crystals Not Reportable 01/22/21 11:06 Schistocytes Not Reportable 01/22/21 11:06 Malaria parasites Not Reportable 01/22/21 11:06 Lloyd Bodies Not Reportable 01/22/21 11:06 Hem Pathologist Commnt No 01/22/21 11:06 D-Dimer 2625.11 ng/mlDDU (0-234) H 01/22/21 11:06 ABG pH 7.449 (7.320-7.450) 01/22/21 12:03 POC ABG pCO2 30.7 mmHg (32.0-48.0) L 01/22/21 12:03 POC ABG pO2 61.4 mmHg (83-108) L 01/22/21 12:03 POC ABG HCO3 20.9 01/22/21 12:03 ABG O2 Saturation 92.5 (0-100) 01/22/21 12:03 POC ABG Base Excess -1.9 01/22/21 12:03 ABG Hemoglobin 15.80 (12.0-17.5) 01/22/21 12:03 ABG Oxyhemoglobin 90.5 (94-98) L 01/22/21 12:03 ABG Methemoglobin 0.5 (0.0-1.5) 01/22/21 12:03 Carboxyhemoglobin 1.7 (0.5-1.5) H 01/22/21 12:03 FiO2 % 100 01/22/21 12:03 Sodium 144 mmol/L (137-145) 01/23/21 05:29 Potassium 3.5 mmol/L (3.6-5.0) L 01/23/21 05:29 Chloride 105.4 mmol/L (98-107) 01/23/21 05:29 Carbon Dioxide 27 mmol/L (22-30) D 01/23/21 05:29 Anion Gap 15 mmol/L 01/23/21 05:29 BUN 29 mg/dL (9-20) H 01/23/21 05:29 Creatinine 0.9 mg/dL (0.8-1.3) 01/23/21 05:29 Estimated GFR > 60 ml/min 01/23/21 05:29 BUN/Creatinine Ratio 32 % 01/23/21 05:29 Glucose 132 mg/dL (75-100) H 01/23/21 05:29 Hemoglobin A1c 6.2 % (4-6) H 01/22/21 11:06 Lactic Acid 4.20 mmol/L (0.7-2.0) H* 08/16/21 11:06 Calcium 8.6 mg/dL (8.4-10.2) 01/23/21 05:29 Ferritin 557.5 ng/mL (30.0-300.0) H 01/22/21 11:06 Total Bilirubin 0.60 mg/dL (0.1-1.2) 01/23/21 05:29 AST 28 units/L (5-40) 01/23/21 05:29 ALT 24 units/L (7-56) 01/23/21 05:29 Alkaline Phosphatase 97 units/L (35-129) 01/23/21 05:29 Lactate Dehydrogenase 799 units/L (91-180) H 01/22/21 11:06 C-Reactive Protein 3.30 mg/dL (0.00-1.30) H 01/22/21 11:06 Total Protein 6.8 g/dL (6.3-8.2) 01/23/21 05:29 Albumin 2.9 g/dL (3.9-5) L 01/23/21 05:29 Albumin/Globulin Ratio 0.7 % 01/23/21 05:29 Procalcitonin 0.15 ng/mL (<0.15) 01/22/21 11:06 Microbiology: Microbiology 01/22/21 11:06 Peripheral/Venous Blood Culture - Preliminary NO GROWTH AFTER 24 HOURS 01/22/21 11:06 Peripheral/Venous Blood Culture - Preliminary NO GROWTH AFTER 24 HOURS Active Medications - Current Medications Current Medications: Generic Name Dose Route Start Last Admin Trade Name Freq PRN Reason Stop Dose Admin Acetaminophen 650 mg 01/22/21 23:03 Acetaminophen 325 Mg Tab PO Q4H PRN Pain MILD(1-3)/Fever >100.5/ANDERSEN Dexamethasone 8 mg 01/22/21 23:45 01/23/21 00:37 Dexamethasone 4 Mg/Ml Vial IV 01/31/21 22:01 8 mg Q24HR@2200 JACK Administration Enoxaparin Sodium 40 mg 01/23/21 10:00 01/23/21 10:05 Enoxaparin 40 Mg/0.4 Ml Inj SUB-Q 40 mg QDAY JACK Administration Famotidine 20 mg 01/22/21 23:45 01/23/21 10:05 Famotidine 20 Mg/2 Ml Inj IV 20 mg BID JACK Administration Hydromorphone HCl 0.5 mg 01/22/21 23:03 Hydromorphone 1 Mg/1 Ml Inj IV Q3H PRN Pain , Severe (7-10) Azithromycin 500 mg in 250 mls @ 250 mls/hr 01/23/21 10:00 01/23/21 11:44 Zithromax/Ns IV 250 mls/hr Q24H JACK Administration Ceftriaxone Sodium 2 gm in 100 mls @ 200 mls/hr 01/23/21 10:00 01/23/21 10:05 Rocephin/Ns 2 Gm/100 Ml IV 200 mls/hr Q24HR JACK Administration Protocol Metoclopramide HCl 10 mg 01/22/21 23:03 Metoclopramide 10 Mg/2 Ml Inj IV Q6H PRN Nausea And Vomiting Ondansetron HCl 4 mg 01/22/21 23:03 Ondansetron 4 Mg/2 Ml Inj IV Q8H PRN Nausea And Vomiting Oxycodone/Acetaminophen 1 tab 01/22/21 23:03 Oxycodone /Acetaminophen 5-325mg Tab PO Q6H PRN Pain, Moderate (4-6) Sodium Chloride 10 ml 01/22/21 23:45 01/23/21 10:06 Sodium Chloride 0.9% 10 Ml Flush Syringe IV 10 ml BID JACK Administration Sodium Chloride 10 ml 01/22/21 23:03 Sodium Chloride 0.9% 10 Ml Flush Syringe IV PRN PRN LINE FLUSH
[2021-01-23 17:28] LABS: Alanine Aminotransferase 23 units/L (7-56); Albumin 2.9 g/dL (3.9-5); BUN/Creatinine Ratio 34; Blood Urea Nitrogen 27 mg/dL (9-20); Calcium 8.6 mg/dL (8.4-10.2); Hemolysis Index 27
[2021-01-23] MEDS ORDERED: REMDESIVIR 200 MG in SODIUM CHLORIDE 0.9% 250ML 250 ML IV ONE (18:00)
[2021-01-23] MEDS: SODIUM CHLORIDE 0.9% 50 ML IVPB IV SCH (21:30)
[2021-01-24] MEDS: dexAMETHasone 4 MG/ML VIAL IV SCH ×2 (00:01→23:55)
[2021-01-24] MEDS: FAMOTIDINE 20 MG/2 ML INJ IV SCH ×3 (00:02→23:56)
[2021-01-24 06:49] LABS: Alanine Aminotransferase 31 units/L (7-56); Albumin 2.9 g/dL (3.9-5); Blood Urea Nitrogen 26 mg/dL (9-20); Calcium 8.4 mg/dL (8.4-10.2); Hemolysis Index 163
[2021-01-24 07:17] LABS: BUN/Creatinine Ratio 37
[2021-01-24] MEDS: ENOXAPARIN 40 MG/0.4 ML INJ SUB-Q SCH (10:12)
[2021-01-24] MEDS: cefTRIAXone/NS 2 GM/100 ML 2 GM/100 ML BAG IV SCH (10:12)
[2021-01-24] MEDS: AZITHROMYCIN/NS 500 MG/250 ML 500 MG/250 ML BAG IV SCH (10:13)
--- NOTE | 2021-01-24 11:12 | Vascular Lab Report ---
DUPLEX DOPPLER LOWER EXTREMITY VEINS, BILATERAL INDICATION / CLINICAL INFORMATION: COVID-19/elevated D-dimers/rule out DVT. TECHNIQUE: Duplex doppler imaging was performed through the veins of both lower extremities using venous francois sean and other maneuvers. COMPARISON: None available. FINDINGS: RIGHT COMMON FEMORAL VEIN: Negative. RIGHT FEMORAL VEIN: Negative. RIGHT POPLITEAL VEIN: Negative. RIGHT CALF VEINS: Negative. LEFT COMMON FEMORAL VEIN: Negative. LEFT FEMORAL VEIN: Negative. LEFT POPLITEAL VEIN: Negative. LEFT CALF VEINS: Negative. ADDITIONAL FINDINGS: None. IMPRESSION: 1. No sonographic evidence for DVT in either lower extremity. Signer Name: Wm Queen MD Signed: 01/24/2021 11:08 AM Workstation Name: [id number]
--- NOTE | 2021-01-24 12:20 | Progress Note ---
Assessment and Plan Assessment and plan: --Hyperkalemia; Closely monitor electrolytes --Hypernatremia; Encourage free water by mouth. -- Acute respiratory failure due to COVID-19/on BiPAP Current Visit: Yes Status: Acute Patient on continuous BiPAP and high oxygen requirements Pulmonary following, stat ABG, discussed with Intubate if needed -- Sepsis/due to COVID-19 pneumonia Current Visit: Yes Status: Acute Patient is a high white count and elevated inflammatory markers. Ferritin is 557 LDH is 749 CRP is 3.3. --Elevated D-dimers ; Current Visit: Yes Status: Acute check CTA chest lower extremity venous Doppler, empiric therapeutic anticoagulation -- Multifocal pneumonia Current Visit: Yes Status: Acute Patient initiated on IV ceftriaxone and Zithromax Recheck procalcitonin Will defer to ID regarding discontinuing antibiotics -- Person under investigation for COVID-19 Current Visit: Yes Status: Acute Coronavirus PCR in a.m. Most probably Covid pneumonia Patient started on IV Decadron 8 mg every 24 Patient was tested positive for Covid on January 16 No need for remdesivir[as patient was diagnosed 1 week ago] --Severe protein calorie malnutrition Current Visit: Yes Status: Chronic On dietary supplements, nutrition consult --Morbid obesity; BMI 43.9 Current Visit: Yes Status: Chronic Patient needs weight reduction when medically stable Dietary modification, lifestyle changes, exercise as tolerated When stable --DVT prophylaxis Current Visit: Yes Status: Acute On Lovenox 40 mg subcu daily and GI prophylaxis Patient is severely hypoxemic requiring continuous BiPAP, with borderline O2 sats Pulmonary critical following, stat ABG If no improvement intubate as needed Patient is elevated D-dimers, in the setting of COVID-19 morbid obesity respiratory failure requiring continuous BiPAP We will treat empirically with full dose anticoagulation, check CTA chest and lower extremity venous Doppler to rule out PE and DVT. Patient is critically ill with poor prognosis Plan of care reviewed with the patient and his nurse Critical care time 55 minutes Total critical care time 65 minutes The high probability of a clinically significant, sudden or life threatening deterioration of the [multiple] system(s) required my full and direct attention, intervention and personal management. The aggregate critical care time was [55] minutes. This time is in addition to time spent performing reported procedures but includes the following: [x] Data Review and interpretation [x] Patient assessment and monitoring of vital signs [x] Documentation [x] Medication orders and management Will try to contact family and update patient's condition History Interval history: I have seen and examined the patient at the bedside Isolation precautions PPE protocols strictly followed per COVID-19 guidelines Patient is in mild distress, on continuous BiPAP, and saturating 88% Vital signs reviewed Hospitalist Physical - Constitutional Vitals: Temp Pulse Resp BP Pulse Ox 99.8 F H 102 H 16 126/63 90 01/23/21 09:43 01/24/21 11:07 01/24/21 11:07 01/24/21 11:07 01/24/21 11:07 General appearance: Present: mild distress, well-nourished, obese (Morbidly obese) - EENT Eyes: Present: PERRL, EOM intact - Neck Neck: Present: supple, normal ROM - Respiratory Respiratory effort: normal Respiratory: bilateral: diminished, rhonchi, negative: rales, wheezing - Cardiovascular Rhythm: regular Heart Sounds: Present: S1 & S2 - Extremities Extremities: no ischemia, No edema - Abdominal General gastrointestinal: soft, non-tender, non-distended, normal bowel sounds - Integumentary Integumentary: Present: clear, warm - Psychiatric Psychiatric: appropriate mood/affect, cooperative, other (Mild agitation) - Neurologic Neurologic: moves all extremities HEART Score - HEART Score Age: 45-65 Risk factors: 1-2 risk factors Troponin: < normal limit - Critical Actions Critical Actions: 0-3 pts:0.9-1.7%risk of adverse cardiac event.Candidate for discharge Results - Labs CBC & Chem 7: 01/23/21 05:29 01/24/21 05:50 Labs: Laboratory Last Values WBC 19.0 K/mm3 (4.5-11.0) H 01/23/21 05:29 RBC 5.24 M/mm3 (3.65-5.03) H 01/23/21 05:29 Hgb 15.3 gm/dl (11.8-15.2) H 01/23/21 05:29 Hct 46.0 % (35.5-45.6) H 01/23/21 05:29 MCV 88 fl (84-94) 01/23/21 05:29 MCH 29 pg (28-32) 01/23/21 05:29 MCHC 33 % (32-34) 01/23/21 05:29 RDW 14.1 % (13.2-15.2) 01/23/21 05:29 Plt Count 223 K/mm3 (140-440) 01/23/21 05:29 Lymph % (Auto) 4.4 % (13.4-35.0) L 01/23/21 05:29 Wilkinson % (Auto) 6.4 % (0.0-7.3) 01/23/21 05:29 Lymph # (Auto) 0.8 K/mm3 (1.2-5.4) L 01/23/21 05:29 Wilkinson # (Auto) 1.2 K/mm3 (0.0-0.8) H 01/23/21 05:29 Add Manual Diff Complete 01/22/21 11:06 Total Counted 100 01/22/21 11:06 Seg Neutrophils % 89.1 % (40.0-70.0) H 01/23/21 05:29 Seg Neuts % (Manual) 92.0 % (40.0-70.0) H 01/22/21 11:06 Band Neutrophils % 2.0 % 01/22/21 11:06 Lymphocytes % (Manual) 1.0 % (13.4-35.0) L 01/22/21 11:06 Monocytes % (Manual) 5.0 % (0.0-7.3) 01/22/21 11:06 Nucleated RBC % 1.0 % (0.0-0.9) H 01/22/21 11:06 Seg Neutrophils # 16.9 K/mm3 (1.8-7.7) H 01/23/21 05:29 Seg Neutrophils # Man 17.7 K/mm3 (1.8-7.7) H 01/22/21 11:06 Band Neutrophils # 0.4 K/mm3 01/22/21 11:06 Lymphocytes # (Manual) 0.2 K/mm3 (1.2-5.4) L 01/22/21 11:06 Abs React Lymphs (Man) 0.0 K/mm3 01/22/21 11:06 Monocytes # (Manual) 1.0 K/mm3 (0.0-0.8) H 01/22/21 11:06 Eosinophils # (Manual) 0.0 K/mm3 (0.0-0.4) 01/22/21 11:06 Basophils # (Manual) 0.0 K/mm3 (0.0-0.1) 01/22/21 11:06 Metamyelocytes # 0.0 K/mm3 01/22/21 11:06 Myelocytes # 0.0 K/mm3 01/22/21 11:06 Promyelocytes # 0.0 K/mm3 01/22/21 11:06 Blast Cells # 0.0 K/mm3 01/22/21 11:06 WBC Morphology Not Reportable 01/22/21 11:06 Hypersegmented Neuts Not Reportable 01/22/21 11:06 Hyposegmented Neuts Not Reportable 01/22/21 11:06 Hypogranular Neuts Not Reportable 01/22/21 11:06 Smudge Cells Not Reportable 01/22/21 11:06 Toxic Granulation Not Reportable 01/22/21 11:06 Toxic Vacuolation Not Reportable 01/22/21 11:06 Dohle Bodies Not Reportable 01/22/21 11:06 Pelger-Huet Anomaly Not Reportable 01/22/21 11:06 Rd Rods Not Reportable 01/22/21 11:06 Platelet Estimate Consistent w auto 01/22/21 11:06 Clumped Platelets Not Reportable 01/22/21 11:06 Plt Clumps, EDTA Not Reportable 01/22/21 11:06 Large Platelets Not Reportable 01/22/21 11:06 Giant Platelets Not Reportable 01/22/21 11:06 Platelet Satelliting Not Reportable 01/22/21 11:06 Plt Morphology Comment Not Reportable 01/22/21 11:06 RBC Morphology Normal 01/22/21 11:06 Dimorphic RBCs Not Reportable 01/22/21 11:06 Polychromasia Not Reportable 01/22/21 11:06 Hypochromasia Not Reportable 01/22/21 11:06 Poikilocytosis Not Reportable 01/22/21 11:06 Anisocytosis Not Reportable 01/22/21 11:06 Microcytosis Not Reportable 01/22/21 11:06 Macrocytosis Not Reportable 01/22/21 11:06 Spherocytes Not Reportable 01/22/21 11:06 Pappenheimer Bodies Not Reportable 01/22/21 11:06 Sickle Cells Not Reportable 01/22/21 11:06 Target Cells Not Reportable 01/22/21 11:06 Tear Drop Cells Not Reportable 01/22/21 11:06 Ovalocytes Not Reportable 01/22/21 11:06 Helmet Cells Not Reportable 01/22/21 11:06 Soliman-[place] Bodies Not Reportable 01/22/21 11:06 [place] Rings Not Reportable 01/22/21 11:06 [place] Cells Not Reportable 01/22/21 11:06 Bite Cells Not Reportable 01/22/21 11:06 Crenated Cell Not Reportable 01/22/21 11:06 Elliptocytes Not Reportable 01/22/21 11:06 Acanthocytes (Spur) Not Reportable 01/22/21 11:06 Rouleaux Not Reportable 01/22/21 11:06 Hemoglobin C Crystals Not Reportable 01/22/21 11:06 Schistocytes Not Reportable 01/22/21 11:06 Malaria parasites Not Reportable 01/22/21 11:06 Lloyd Bodies Not Reportable 01/22/21 11:06 Hem Pathologist Commnt No 01/22/21 11:06 D-Dimer 2625.11 ng/mlDDU (0-234) H 01/22/21 11:06 ABG pH 7.449 (7.320-7.450) 01/22/21 12:03 POC ABG pCO2 30.7 mmHg (32.0-48.0) L 01/22/21 12:03 POC ABG pO2 61.4 mmHg (83-108) L 01/22/21 12:03 POC ABG HCO3 20.9 01/22/21 12:03 ABG O2 Saturation 92.5 (0-100) 01/22/21 12:03 POC ABG Base Excess -1.9 01/22/21 12:03 ABG Hemoglobin 15.80 (12.0-17.5) 01/22/21 12:03 ABG Oxyhemoglobin 90.5 (94-98) L 01/22/21 12:03 ABG Methemoglobin 0.5 (0.0-1.5) 01/22/21 12:03 Carboxyhemoglobin 1.7 (0.5-1.5) H 01/22/21 12:03 FiO2 % 100 01/22/21 12:03 Sodium 148 mmol/L (137-145) H 01/24/21 05:50 Potassium 5.3 mmol/L (3.6-5.0) H D 01/24/21 05:50 Chloride 109.3 mmol/L (98-107) H 01/24/21 05:50 Carbon Dioxide 22 mmol/L (22-30) 01/24/21 05:50 Anion Gap 22 mmol/L 01/24/21 05:50 BUN 26 mg/dL (9-20) H 01/24/21 05:50 Creatinine 0.7 mg/dL (0.8-1.3) L 01/24/21 05:50 Estimated GFR > 60 ml/min 01/24/21 05:50 BUN/Creatinine Ratio 37 % 01/24/21 05:50 Glucose 130 mg/dL (75-100) H 01/24/21 05:50 Hemoglobin A1c 6.2 % (4-6) H 01/22/21 11:06 Lactic Acid 4.20 mmol/L (0.7-2.0) H* 01/22/21 11:06 Calcium 8.4 mg/dL (8.4-10.2) 01/24/21 05:50 Ferritin 557.5 ng/mL (30.0-300.0) H 01/22/21 11:06 Total Bilirubin 1.00 mg/dL (0.1-1.2) 01/24/21 05:50 AST 45 units/L (5-40) H 01/24/21 05:50 ALT 31 units/L (7-56) 01/24/21 05:50 Alkaline Phosphatase 126 units/L (35-129) 01/24/21 05:50 Lactate Dehydrogenase 799 units/L (91-180) H 01/22/21 11:06 C-Reactive Protein 3.30 mg/dL (0.00-1.30) H 01/22/21 11:06 Total Protein 6.7 g/dL (6.3-8.2) 01/24/21 05:50 Albumin 2.9 g/dL (3.9-5) L 01/24/21 05:50 Albumin/Globulin Ratio 0.8 % 01/24/21 05:50 Procalcitonin 0.15 ng/mL (<0.15) 01/22/21 11:06 Coronavirus (PCR) Positive (Negative) A 01/23/21 09:00 Microbiology: Microbiology 01/22/21 11:06 Peripheral/Venous Blood Culture - Preliminary NO GROWTH AFTER 48 HOURS 01/22/21 11:06 Peripheral/Venous Blood Culture - Preliminary NO GROWTH AFTER 48 HOURS Active Medications - Current Medications Current Medications: Generic Name Dose Route Start Last Admin Trade Name Freq PRN Reason Stop Dose Admin Acetaminophen 650 mg 01/22/21 23:03 Acetaminophen 325 Mg Tab PO Q4H PRN Pain MILD(1-3)/Fever >100.5/ANDERSEN Dexamethasone 8 mg 01/22/21 23:45 01/24/21 00:01 Dexamethasone 4 Mg/Ml Vial IV 01/31/21 22:01 8 mg Q24HR@2200 JACK Administration Enoxaparin Sodium 40 mg 01/23/21 10:00 01/24/21 10:12 Enoxaparin 40 Mg/0.4 Ml Inj SUB-Q 40 mg QDAY JACK Administration Famotidine 20 mg 01/22/21 23:45 01/24/21 10:11 Famotidine 20 Mg/2 Ml Inj IV 20 mg BID JACK Administration Hydromorphone HCl 0.5 mg 01/22/21 23:03 Hydromorphone 1 Mg/1 Ml Inj IV Q3H PRN Pain , Severe (7-10) Azithromycin 500 mg in 250 mls @ 250 mls/hr 01/23/21 10:00 01/24/21 10:13 Zithromax/Ns IV 250 mls/hr Q24H JACK Administration Ceftriaxone Sodium 2 gm in 100 mls @ 200 mls/hr 01/23/21 10:00 01/24/21 10:12 Rocephin/Ns 2 Gm/100 Ml IV 200 mls/hr Q24HR JACK Administration Protocol REMDESIVIR 100 mg/ Sodium 250 mls @ 500 mls/hr 01/24/21 21:00 Chloride IV 01/27/21 21:29 Q24HR@2100 JACK Metoclopramide HCl 10 mg 01/22/21 23:03 Metoclopramide 10 Mg/2 Ml Inj IV Q6H PRN Nausea And Vomiting Ondansetron HCl 4 mg 01/22/21 23:03 Ondansetron 4 Mg/2 Ml Inj IV Q8H PRN Nausea And Vomiting Oxycodone/Acetaminophen 1 tab 01/22/21 23:03 Oxycodone /Acetaminophen 5-325mg Tab PO Q6H PRN Pain, Moderate (4-6) Sodium Chloride 10 ml 01/22/21 23:45 01/24/21 10:08 Sodium Chloride 0.9% 10 Ml Flush Syringe IV 10 ml BID JACK Administration Sodium Chloride 10 ml 01/22/21 23:03 Sodium Chloride 0.9% 10 Ml Flush Syringe IV PRN PRN LINE FLUSH Sodium Chloride 50 ml 01/23/21 18:30 01/23/21 21:30 Sodium Chloride 0.9% 50 Ml Ivpb IV 01/27/21 21:01 50 ml Q24HR@2100 JACK Administration
--- NOTE | 2021-01-24 13:03 | Consultation ---
History of Present Illness - Reason for Consult Consult date: 01/24/21 COVID Requesting physician: CHRISS STEINER - History of Present Illness The patient is a 55-year-old male with morbid obesity, venous insufficiency, recent diagnosis of COVID-19 was admitted to the hospital with worsening shortness of breath. Patient was found to be significantly hypoxic, required BiPAP in the emergency room. Infectious diseases was consulted for additional evaluation. Afebrile here. Labs revealed WBC 19.2, D-dimer 2625, CRP 3.3, ferritin 557, LDH 799. DVT scan negative in lower extremities. Chest x-ray showed bilateral airspace disease. Review of Systems: reviewed in the chart, unable to obtain, minimize risk of transmission Past History Past Medical History: other (Morbid Obesity. Venous insufficiency.) Medications and Allergies Allergies Allergy/AdvReac Type Severity Reaction Status Date / Time No Known Allergies Allergy Unverified 01/22/21 11:26 Active Meds: Active Medications Acetaminophen (Acetaminophen 325 Mg Tab) 650 mg PO Q4H PRN PRN Reason: Pain MILD(1-3)/Fever >100.5/ANDERSEN Dexamethasone (Dexamethasone 4 Mg/Ml Vial) 10 mg IV Q24HR@2200 JACK Stop: 01/31/21 22:01 Enoxaparin Sodium (Enoxaparin 100 Mg/1 Ml Inj) 100 mg SUB-Q Q12HR JACK Enoxaparin Sodium (Enoxaparin 30 Mg/0.3 Ml Inj) 30 mg SUB-Q Q12HR JACK Famotidine (Famotidine 20 Mg/2 Ml Inj) 20 mg IV BID [facility] Last Admin: 01/24/21 10:11 Dose: 20 mg Documented by: Hydromorphone HCl (Hydromorphone 1 Mg/1 Ml Inj) 0.5 mg IV Q3H PRN PRN Reason: Pain , Severe (7-10) Azithromycin (Zithromax/Ns) 500 mg in 250 mls @ 250 mls/hr IV Q24H JACK Last Admin: 01/24/21 10:13 Dose: 250 mls/hr Documented by: Ceftriaxone Sodium (Rocephin/Ns 2 Gm/100 Ml) 2 gm in 100 mls @ 200 mls/hr IV Q24HR [facility]; Protocol Last Admin: 01/24/21 10:12 Dose: 200 mls/hr Documented by: REMDESIVIR 100 mg/ Sodium (Chloride) 250 mls @ 500 mls/hr IV Q24HR@2100 [facility] Stop: 01/27/21 21:29 Metoclopramide HCl (Metoclopramide 10 Mg/2 Ml Inj) 10 mg IV Q6H PRN PRN Reason: Nausea And Vomiting Ondansetron HCl (Ondansetron 4 Mg/2 Ml Inj) 4 mg IV Q8H PRN PRN Reason: Nausea And Vomiting Oxycodone/Acetaminophen (Oxycodone /Acetaminophen 5-325mg Tab) 1 tab PO Q6H PRN PRN Reason: Pain, Moderate (4-6) Sodium Chloride (Sodium Chloride 0.9% 10 Ml Flush Syringe) 10 ml IV BID [facility] Last Admin: 01/24/21 10:08 Dose: 10 ml Documented by: Sodium Chloride (Sodium Chloride 0.9% 10 Ml Flush Syringe) 10 ml IV PRN PRN PRN Reason: LINE FLUSH Sodium Chloride (Sodium Chloride 0.9% 50 Ml Ivpb) 50 ml IV Q24HR@2100 [facility] Stop: 01/27/21 21:01 Last Admin: 01/23/21 21:30 Dose: 50 ml Documented by: Physical Examination - Physical Exam Narrative exam: Physical Exam (reviewed in chart to minimize risk of transmission) Constitutional: deferred Head, Ears, Nose: deferred Eyes: deferred Neck: deferred Oral: deferred Cardiovascular: deferred Respiratory: deferred GI: deferred Musculoskeletal: deferred Skin: deferred Hem/Lymphatic: deferred Psych: deferred Neurological: deferred - Constitutional Vitals: Vital Signs Temp Pulse Resp BP Pulse Ox 99.8 F H 62 20 134/65 85 01/23/21 09:43 01/24/21 12:28 01/24/21 12:28 01/24/21 12:28 01/24/21 12:28 Results - Labs CBC & Chem 7: 01/23/21 05:29 01/24/21 05:50 Labs: Abnormal lab results 01/23/21 01/23/21 01/24/21 Range/Units 09:00 16:55 05:50 Sodium 148 H (137-145) mmol/L Potassium 5.3 H D (3.6-5.0) mmol/L Chloride 109.3 H (98-107) mmol/L BUN 27 H 26 H (9-20) mg/dL Creatinine 0.7 L (0.8-1.3) mg/dL Glucose 103 H 130 H (75-100) mg/dL AST 45 H (5-40) units/L Albumin 2.9 L 2.9 L (3.9-5) g/dL Coronavirus (PCR) Positive A (Negative) - Imaging and Cardiology Chest x-ray: report reviewed, image reviewed (b/l PNA) Assessment and Plan Cultures: SARS CoV2 PCR: positive A/P: 55/M with obesity, admitted with: #Bilateral pneumonia: Secondary to COVID-19 #Acute hypoxic respiratory failure: Requiring BiPAP. #Morbid obesity Recs: -IV/PO Dexamethasone 10 mg daily x 10 days, higher dose due to morbid obesity -Remdesivir 5 days -Due to low CRP, not a candidate for Actemra -Follow-up procalcitonin -prophylactic anticoagulation based on d-dimer per hospital protocol. Agree with evaluation for PE and DVT -trend ferritin, LDH, d-dimer, CRP every 2-3 days for risk stratification and to assess disease progression -guarded prognosis Misael Dudley MD, FACP [facility] ([facility] O: [phone] F: [phone]
--- NOTE | 2021-01-24 18:50 | Progress Note ---
Assessment and Plan 55-year-old male with history of morbid obesity and venous insufficiency comes in for shortness of breath of 4 days duration. Patient started having symptoms of a viral syndrome around January 10. Patient was diagnosed with positive PCR te st for khan on January 16 at [facility]. Because he was saturating well on room air patient was discharged home with instructions. Patient started worsening over the last 4 days and becoming very short of breath and also delusional. He also had an episode of incontinence. Patient symptoms improved fever chills headache cough shortness of breath and body aches. Patient also has loss of taste and smell. His and 2 children also have similar symptoms. Patient oxygen saturation was 60% on room air according to EMS. He received albuterol magnesium Solu-Medrol by EMS. Patient remained hypoxic 82% in spite of oxygen via nonrebreather. And patient was started on BiPAP in the emergency room. Patient has history of smoking. Says stopped 2 years ago. Not clear how many years he smoked and not clear how many packs he smoked. Denies alcohol or drug abuse. 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 Patient presently on BIPAP,20/12, rate 20, FIO2 100% and O2 saturation running 89%. Patient still having mild shortness of breath on BIPAP. Patient running Low grade temp. Has leukocytosis. Blood pressure 123/81 . Pulse 67. Patient presently on Dexamethasone, REMDESIVIR,S/C Lovenox, Famotidine, Ceftriaxone and Zithromax. Patient was seen in the emergency room. I spent critical care time of 37 minutes, review the chart, examine the patient, review labs and xrays, talking to nursing staff, respiratory therapy and work out plan of treatment in this critically ill COVID positive patient. - Patient Problems (1) Acute respiratory failure due to COVID-19 Current Visit: Yes Status: Acute Plan to address problem: BIPAP,20/12, rate 20, FIO2 100% Continue dexamethasone Continue S/C lovenox Continue famotidine. Contiue ceftriaxone and zithromax (2) Multifocal pneumonia Current Visit: Yes Status: Acute Plan to address problem: Patient is on ceftriaxone and zithromax. (3) Sepsis Current Visit: Yes Status: Acute Plan to address problem: On ceftriaxone and zithromax. (4) Morbid obesity with BMI of 40.0-44.9, adult Current Visit: Yes Status: Acute Plan to address problem: Recommend to loose weight. Diet and exercise. Subjective Date of service: 01/24/21 Interval history: 55-year-old male with history of morbid obesity and venous insufficiency comes in for shortness of breath of 4 days duration. Patient started having symptoms of a viral syndrome around January 10. Patient was diagnosed with positive PCR test for khan on January 16 at [facility]. Because he was saturating well on room air patient was discharged home with instructions. Patient started worsening over the last 4 days and becoming very short of breath and also delusional. He also had an episode of incontinence. Patient symptoms improved fever chills headache cough shortness of breath and body aches. Patient also has loss of taste and smell. His and 2 children also have similar symptoms. Patient oxygen saturation was 60% on room air according to EMS. He received albuterol magnesium Solu-Medrol by EMS. Patient remained hypoxic 82% in spite of oxygen via nonrebreather. And patient was started on BiPAP in the emergency room. Patient has history of smoking. Says stopped 2 years ago. Not clear how many years he smoked and not clear how many packs he smoked. Denies alcohol or drug abuse. 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 Patient presently on BIPAP,20/12, rate 20, FIO2 100% and O2 saturation running 89%. Patient still having mild shortness of breath on BIPAP. Patient running Low grade temp. Has leukocytosis. Blood pressure 123/81 . Pulse 67. Patient presently on Dexamethasone, REMDESIVIR,S/C Lovenox, Famotidine, Ceftriaxone and Zithromax. Objective Vital Signs - 12hr 01/24/21 01/24/21 01/24/21 08:14 11:07 12:28 Pulse Rate 60 102 H 62 Respiratory 16 16 20 Rate Blood Pressure Blood Pressure 111/55 126/63 134/65 [Left] O2 Sat by Pulse 95 90 85 Oximetry 01/24/21 01/24/21 01/24/21 14:08 15:11 16:57 Pulse Rate 67 64 80 Respiratory 20 39 H 16 Rate Blood Pressure 135/80 Blood Pressure 123/81 109/60 [Left] O2 Sat by Pulse 85 92 92 Oximetry Constitutional: alert, appears uncomfortable, other (Morbidly ,slight increased work of breathing on BIPAP.) Eyes: non-icteric ENT: oropharynx moist Neck: supple, no lymphadenopathy, no JVD Effort: mildly labored Ascultation: Bilateral: diminished breath sounds (at the bases.), rales, rhonchi Cardiovascular: regular rate and rhythm Gastrointestinal: normoactive bowel sounds, soft, non-tender Integumentary: normal Extremities: no cyanosis, no edema Neurologic: normal mental status, non-focal exam, pupils equal and round, CN II- XII normal Psychiatric: depressed CBC and BMP: 01/23/21 05:29 01/25/21 06:22 ABG, PT/INR, D-dimer: ABG ABG pH 7.449 (7.320-7.450) 01/22/21 12:03 POC ABG pCO2 30.7 mmHg (32.0-48.0) L 01/22/21 12:03 POC ABG pO2 61.4 mmHg (83-108) L 01/22/21 12:03 POC ABG HCO3 20.9 01/22/21 12:03 ABG O2 Saturation 92.5 (0-100) 01/22/21 12:03 PT/INR, D-dimer D-Dimer 2625.11 ng/mlDDU (0-234) H 01/22/21 11:06 Abnormal lab findings: Abnormal Labs 01/22/21 01/22/21 01/22/21 11:06 11:06 11:06 WBC RBC Hgb Hct Lymph % (Auto) Lymph # (Auto) Davis # (Auto) Seg Neutrophils % Seg Neuts % (Manual) Lymphocytes % (Manual) Nucleated RBC % Seg Neutrophils # Seg Neutrophils # Man Lymphocytes # (Manual) Monocytes # (Manual) D-Dimer 2625.11 H POC ABG pCO2 POC ABG pO2 ABG Oxyhemoglobin Carboxyhemoglobin Sodium Potassium Chloride Carbon Dioxide BUN Creatinine Glucose 130 H Hemoglobin A1c Lactic Acid Ferritin 557.5 H AST Lactate Dehydrogenase 799 H C-Reactive Protein 3.30 H Albumin Coronavirus (PCR) 01/22/21 01/22/21 01/22/21 11:06 11:06 11:06 WBC 19.2 H RBC 5.63 H Hgb 15.8 H Hct 49.0 H Lymph % (Auto) Lymph # (Auto) Davis # (Auto) Seg Neutrophils % Seg Neuts % (Manual) 92.0 H Lymphocytes % (Manual) 1.0 L Nucleated RBC % 1.0 H Seg Neutrophils # Seg Neutrophils # Man 17.7 H Lymphocytes # (Manual) 0.2 L Monocytes # (Manual) 1.0 H D-Dimer POC ABG pCO2 POC ABG pO2 ABG Oxyhemoglobin Carboxyhemoglobin Sodium Potassium 3.3 L Chloride Carbon Dioxide 20 L BUN 32 H Creatinine Glucose 130 H Hemoglobin A1c Lactic Acid 4.20 H* Ferritin AST Lactate Dehydrogenase C-Reactive Protein Albumin 2.9 L Coronavirus (PCR) 01/22/21 01/22/21 01/23/21 11:06 12:03 05:29 WBC 19.0 H RBC 5.24 H Hgb 15.3 H Hct 46.0 H Lymph % (Auto) 4.4 L Lymph # (Auto) 0.8 L Davis # (Auto) 1.2 H Seg Neutrophils % 89.1 H Seg Neuts % (Manual) Lymphocytes % (Manual) Nucleated RBC % Seg Neutrophils # 16.9 H Seg Neutrophils # Man Lymphocytes # (Manual) Monocytes # (Manual) D-Dimer POC ABG pCO2 30.7 L POC ABG pO2 61.4 L ABG Oxyhemoglobin 90.5 L Carboxyhemoglobin 1.7 H Sodium Potassium Chloride Carbon Dioxide BUN Creatinine Glucose Hemoglobin A1c 6.2 H Lactic Acid Ferritin AST Lactate Dehydrogenase C-Reactive Protein Albumin Coronavirus (PCR) 01/23/21 01/23/21 01/23/21 05:29 09:00 16:55 WBC RBC Hgb Hct Lymph % (Auto) Lymph # (Auto) Davis # (Auto) Seg Neutrophils % Seg Neuts % (Manual) Lymphocytes % (Manual) Nucleated RBC % Seg Neutrophils # Seg Neutrophils # Man Lymphocytes # (Manual) Monocytes # (Manual) D-Dimer POC ABG pCO2 POC ABG pO2 ABG Oxyhemoglobin Carboxyhemoglobin Sodium Potassium 3.5 L Chloride Carbon Dioxide BUN 29 H 27 H Creatinine Glucose 132 H 103 H Hemoglobin A1c Lactic Acid Ferritin AST Lactate Dehydrogenase C-Reactive Protein Albumin 2.9 L 2.9 L Coronavirus (PCR) Positive A 01/24/21 05:50 WBC RBC Hgb Hct Lymph % (Auto) Lymph # (Auto) Davis # (Auto) Seg Neutrophils % Seg Neuts % (Manual) Lymphocytes % (Manual) Nucleated RBC % Seg Neutrophils # Seg Neutrophils # Man Lymphocytes # (Manual) Monocytes # (Manual) D-Dimer POC ABG pCO2 POC ABG pO2 ABG Oxyhemoglobin Carboxyhemoglobin Sodium 148 H Potassium 5.3 H D Chloride 109.3 H Carbon Dioxide BUN 26 H Creatinine 0.7 L Glucose 130 H Hemoglobin A1c Lactic Acid Ferritin AST 45 H Lactate Dehydrogenase C-Reactive Protein Albumin 2.9 L Coronavirus (PCR)
[2021-01-24] MEDS: HYDROmorphone 1 MG/1 ML INJ IV PRN ×2 (19:10→22:22)
[2021-01-24] MEDS: REMDESIVIR 100 MG in SODIUM CHLORIDE 0.9% 250ML 250 ML IV SCH (21:25)
[2021-01-24] MEDS ORDERED: ENOXAPARIN 100 MG/1 ML INJ SUB-Q SCH (22:00)
[2021-01-24] MEDS: SODIUM CHLORIDE 0.9% 50 ML IVPB IV SCH (22:48)
[2021-01-24] MEDS ORDERED: HYDROmorphone 1 MG/1 ML INJ IV ONE (22:51)
[2021-01-24] MEDS ORDERED: ALUM-MAG HYDROXIDE-SIMETHICONE 200-200-20MG/5ML ORAL LIQD 30 ML PO ONE (22:51)
[2021-01-25] MEDS ORDERED: ALUM-MAG HYDROXIDE-SIMETHICONE 200-200-20MG/5ML ORAL LIQD 30 ML PO PRN (01:08)
[2021-01-25] MEDS ORDERED: LIDOCAINE VISCOUS 2% 15 ML ORAL LIQD PO ONE (01:08)
[2021-01-25] MEDS: ENOXAPARIN 100 MG/1 ML INJ SUB-Q SCH ×2 (01:33→10:10)
[2021-01-25] MEDS: ENOXAPARIN 30 MG/0.3 ML INJ SUB-Q SCH ×2 (01:34→10:10)
[2021-01-25] MEDS: HYDROmorphone 1 MG/1 ML INJ IV PRN ×2 (03:15→07:15)
[2021-01-25 07:37] LABS: Alanine Aminotransferase 32 units/L (7-56); Albumin 2.9 g/dL (3.9-5); BUN/Creatinine Ratio 34; Blood Urea Nitrogen 27 mg/dL (9-20); Calcium 8.9 mg/dL (8.4-10.2); Hemolysis Index 4
--- NOTE | 2021-01-25 09:06 | Progress Note ---
Assessment and Plan Assessment and plan: -- Acute hypoxic respiratory failure due to COVID-19/on continuous BiPAP Current Visit: Yes Status: Acute Patient on continuous BiPAP and high oxygen requirements Today patient is hypoxic even on continuous BiPAP Need intubation and mechanical ventilation Pulmonary critical following, planning to intubate With the help of anesthesiologist [as patient is obese short neck, will be difficult intubation] -- Sepsis/due to COVID-19 pneumonia Current Visit: Yes Status: Acute Severely hypoxemic on continuous BiPAP Elevated inflammatory markers On empiric full dose anticoagulation Closely monitor --Hypernatremia; Current Visit: Yes Status: Acute Free water flushes, closely monitor electrolytes --Elevated D-dimers ; Current Visit: Yes Status: Acute check CTA chest lower extremity venous Doppler, empiric therapeutic anticoagulation full dose Lovenox -- Multifocal pneumonia Current Visit: Yes Status: Acute Patient initiated on IV ceftriaxone and Zithromax Worsening procalcitonin levels today 2.11[normal 0.15] Continue current antibiotics --Severe protein calorie malnutrition Current Visit: Yes Status: Chronic On dietary supplements, nutrition consult --Morbid obesity; BMI 43.9 Current Visit: Yes Status: Chronic Patient needs weight reduction when medically stable Dietary modification, lifestyle changes, exercise as tolerated When stable --DVT prophylaxis Current Visit: Yes Status: Acute Full dose anticoagulation and GI prophylaxis Patient is severely hypoxemic even on continuous BiPAP, Pulmonary critical following, stat ABG Possible intubation and mechanical ventilation today Patient is elevated D-dimers, in the setting of COVID-19 morbid obesity respi ratory failure requiring continuous BiPAP We will treat empirically with full dose anticoagulation, check CTA chest and lower extremity venous Doppler to rule out PE and DVT. Patient is critically ill with poor prognosis Plan of care reviewed with the patient and his nurse Critical care time 50 minutes Total critical care time 50 minutes The high probability of a clinically significant, sudden or life threatening deterioration of the [multiple] system(s) required my full and direct attention, intervention and personal management. The aggregate critical care time was [50] minutes. This time is in addition to time spent performing reported procedures but includes the following: [x] Data Review and interpretation [x] Patient assessment and monitoring of vital signs [x] Documentation [x] Medication orders and management Will try to contact family and update patient's condition 01/25/2021; patient for intubation and mechanical ventilation As patient is severely hypoxemic even on continuous BiPAP History Interval history: Patient is not acute respiratory failure on continuous BiPAP With low saturations intermittently Patient has severe Covid pneumonia, elevated D-dimers on empiric full dose anticoagulation Not a candidate for CTA chest as patient is unstable Patient is critically ill in severe distress Patient has low saturations even on continuous BiPAP May need intubation and mechanical ventilation Vital signs noted Hospitalist Physical - Constitutional Vitals: Temp Pulse Resp BP Pulse Ox 99.8 F H 80 35 H 132/66 81 L 01/23/21 09:43 01/25/21 06:00 01/25/21 06:00 01/25/21 06:00 01/25/21 06:00 General appearance: Present: mild distress, well-nourished, obese (Morbidly obese), other (On continuous BiPAP) - EENT Eyes: Present: PERRL, EOM intact - Neck Neck: Present: supple, normal ROM - Respiratory Respiratory effort: normal Respiratory: bilateral: diminished, rhonchi, negative: rales, wheezing - Cardiovascular Rhythm: regular Heart Sounds: Present: S1 & S2 - Extremities Extremities: no ischemia, No edema - Abdominal General gastrointestinal: soft, non-tender, non-distended, normal bowel sounds - Integumentary Integumentary: Present: clear, warm - Psychiatric Psychiatric: appropriate mood/affect, cooperative - Neurologic Neurologic: CNII-XII intact, moves all extremities HEART Score - HEART Score Age: 45-65 Risk factors: 1-2 risk factors Troponin: < normal limit - Critical Actions Critical Actions: 0-3 pts:0.9-1.7%risk of adverse cardiac event.Candidate for discharge Results - Labs CBC & Chem 7: 02/06/21 06:40 02/05/21 14:32 Labs: Laboratory Last Values WBC 19.0 K/mm3 (4.5-11.0) H 01/23/21 05:29 RBC 5.24 M/mm3 (3.65-5.03) H 01/23/21 05:29 Hgb 15.3 gm/dl (11.8-15.2) H 01/23/21 05:29 Hct 46.0 % (35.5-45.6) H 01/23/21 05:29 MCV 88 fl (84-94) 01/23/21 05:29 MCH 29 pg (28-32) 01/23/21 05:29 MCHC 33 % (32-34) 01/23/21 05:29 RDW 14.1 % (13.2-15.2) 01/23/21 05:29 Plt Count 223 K/mm3 (140-440) 01/23/21 05:29 Lymph % (Auto) 4.4 % (13.4-35.0) L 01/23/21 05:29 [place] % (Auto) 6.4 % (0.0-7.3) 01/23/21 05:29 Lymph # (Auto) 0.8 K/mm3 (1.2-5.4) L 01/23/21 05:29 [place] # (Auto) 1.2 K/mm3 (0.0-0.8) H 01/23/21 05:29 Add Manual Diff Complete 01/22/21 11:06 Total Counted 100 01/22/21 11:06 Seg Neutrophils % 89.1 % (40.0-70.0) H 01/23/21 05:29 Seg Neuts % (Manual) 92.0 % (40.0-70.0) H 01/22/21 11:06 Band Neutrophils % 2.0 % 01/22/21 11:06 Lymphocytes % (Manual) 1.0 % (13.4-35.0) L 01/22/21 11:06 Monocytes % (Manual) 5.0 % (0.0-7.3) 01/22/21 11:06 Nucleated RBC % 1.0 % (0.0-0.9) H 01/22/21 11:06 Seg Neutrophils # 16.9 K/mm3 (1.8-7.7) H 01/23/21 05:29 Seg Neutrophils # Man 17.7 K/mm3 (1.8-7.7) H 01/22/21 11:06 Band Neutrophils # 0.4 K/mm3 01/22/21 11:06 Lymphocytes # (Manual) 0.2 K/mm3 (1.2-5.4) L 01/22/21 11:06 Abs React Lymphs (Man) 0.0 K/mm3 01/22/21 11:06 Monocytes # (Manual) 1.0 K/mm3 (0.0-0.8) H 01/22/21 11:06 Eosinophils # (Manual) 0.0 K/mm3 (0.0-0.4) 01/22/21 11:06 Basophils # (Manual) 0.0 K/mm3 (0.0-0.1) 01/22/21 11:06 Metamyelocytes # 0.0 K/mm3 01/22/21 11:06 Myelocytes # 0.0 K/mm3 01/22/21 11:06 Promyelocytes # 0.0 K/mm3 01/22/21 11:06 Blast Cells # 0.0 K/mm3 01/22/21 11:06 WBC Morphology Not Reportable 01/22/21 11:06 Hypersegmented Neuts Not Reportable 01/22/21 11:06 Hyposegmented Neuts Not Reportable 01/22/21 11:06 Hypogranular Neuts Not Reportable 01/22/21 11:06 Smudge Cells Not Reportable 01/22/21 11:06 Toxic Granulation Not Reportable 01/22/21 11:06 Toxic Vacuolation Not Reportable 01/22/21 11:06 Dohle Bodies Not Reportable 01/22/21 11:06 Pelger-Huet Anomaly Not Reportable 01/22/21 11:06 Rd Rods Not Reportable 01/22/21 11:06 Platelet Estimate Consistent w auto 01/22/21 11:06 Clumped Platelets Not Reportable 01/22/21 11:06 Plt Clumps, EDTA Not Reportable 01/22/21 11:06 Large Platelets Not Reportable 01/22/21 11:06 Giant Platelets Not Reportable 01/22/21 11:06 Platelet Satelliting Not Reportable 01/22/21 11:06 Plt Morphology Comment Not Reportable 01/22/21 11:06 RBC Morphology Normal 01/22/21 11:06 Dimorphic RBCs Not Reportable 01/22/21 11:06 Polychromasia Not Reportable 01/22/21 11:06 Hypochromasia Not Reportable 01/22/21 11:06 Poikilocytosis Not Reportable 01/22/21 11:06 Anisocytosis Not Reportable 01/22/21 11:06 Microcytosis Not Reportable 01/22/21 11:06 Macrocytosis Not Reportable 01/22/21 11:06 Spherocytes Not Reportable 01/22/21 11:06 Pappenheimer Bodies Not Reportable 01/22/21 11:06 Sickle Cells Not Reportable 01/22/21 11:06 Target Cells Not Reportable 01/22/21 11:06 Tear Drop Cells Not Reportable 01/22/21 11:06 Ovalocytes Not Reportable 01/22/21 11:06 Helmet Cells Not Reportable 01/22/21 11:06 [place] Bodies Not Reportable 01/22/21 11:06 Gipsy Rings Not Reportable 01/22/21 11:06 Claudia Cells Not Reportable 01/22/21 11:06 Bite Cells Not Reportable 01/22/21 11:06 Crenated Cell Not Reportable 01/22/21 11:06 Elliptocytes Not Reportable 01/22/21 11:06 Acanthocytes (Spur) Not Reportable 01/22/21 11:06 Rouleaux Not Reportable 01/22/21 11:06 Hemoglobin C Crystals Not Reportable 01/22/21 11:06 Schistocytes Not Reportable 01/22/21 11:06 Malaria parasites Not Reportable 01/22/21 11:06 Lloyd Bodies Not Reportable 01/22/21 11:06 Hem Pathologist Commnt No 01/22/21 11:06 D-Dimer > 74716 ng/mlDDU (0-234) H 01/25/21 06:22 ABG pH 7.449 (7.320-7.450) 01/22/21 12:03 POC ABG pCO2 30.7 mmHg (32.0-48.0) L 01/22/21 12:03 POC ABG pO2 61.4 mmHg (83-108) L 01/22/21 12:03 POC ABG HCO3 20.9 01/22/21 12:03 ABG O2 Saturation 92.5 (0-100) 01/22/21 12:03 POC ABG Base Excess -1.9 01/22/21 12:03 ABG Hemoglobin 15.80 (12.0-17.5) 01/22/21 12:03 ABG Oxyhemoglobin 90.5 (94-98) L 01/22/21 12:03 ABG Methemoglobin 0.5 (0.0-1.5) 01/22/21 12:03 ABG Sodium Not Reportable 01/22/21 12:03 ABG Potassium Not Reportable 01/22/21 12:03 ABG Chloride Not Reportable 01/22/21 12:03 ABG Glucose Not Reportable 01/22/21 12:03 Carboxyhemoglobin 1.7 (0.5-1.5) H 01/22/21 12:03 FiO2 % 100 01/22/21 12:03 Sodium 153 mmol/L (137-145) H 01/25/21 06:22 Potassium 3.4 mmol/L (3.6-5.0) L D 01/25/21 06:22 Chloride 116.1 mmol/L (98-107) H 01/25/21 06:22 Carbon Dioxide 21 mmol/L (22-30) L 01/25/21 06:22 Anion Gap 19 mmol/L 01/25/21 06:22 BUN 27 mg/dL (9-20) H 01/25/21 06:22 Creatinine 0.8 mg/dL (0.8-1.3) 01/25/21 06:22 Estimated GFR > 60 ml/min 01/25/21 06:22 BUN/Creatinine Ratio 34 % 01/25/21 06:22 Glucose 133 mg/dL (75-100) H 01/25/21 06:22 Hemoglobin A1c 6.2 % (4-6) H 01/22/21 11:06 Lactic Acid 4.20 mmol/L (0.7-2.0) H* 01/22/21 11:06 Calcium 8.9 mg/dL (8.4-10.2) 01/25/21 06:22 Ferritin 1031.0 ng/mL (30.0-300.0) H 01/24/21 20:20 Total Bilirubin 1.30 mg/dL (0.1-1.2) H 01/25/21 06:22 AST 50 units/L (5-40) H 01/25/21 06:22 ALT 32 units/L (7-56) 01/25/21 06:22 Alkaline Phosphatase 159 units/L (35-129) H 01/25/21 06:22 Lactate Dehydrogenase 1511 units/L (91-180) H 01/24/21 20:20 C-Reactive Protein 16.80 mg/dL (0.00-1.30) H 01/25/21 06:22 Total Protein 7.3 g/dL (6.3-8.2) 01/25/21 06:22 Albumin 2.9 g/dL (3.9-5) L 01/25/21 06:22 Albumin/Globulin Ratio 0.7 % 01/25/21 06:22 Procalcitonin 2.11 ng/mL (<0.15) 01/25/21 06:22 Arterial Blood Glucose Not Reportable 01/22/21 12:03 Coronavirus (PCR) Positive (Negative) A 01/23/21 09:00 Microbiology: Microbiology 01/22/21 11:06 Peripheral/Venous Blood Culture - Preliminary NO GROWTH AFTER 48 HOURS 01/22/21 11:06 Peripheral/Venous Blood Culture - Preliminary NO GROWTH AFTER 48 HOURS Active Medications - Current Medications Current Medications: Generic Name Dose Route Start Last Admin Trade Name Freq PRN Reason Stop Dose Admin Acetaminophen 650 mg 01/22/21 23:03 Acetaminophen 325 Mg Tab PO Q4H PRN Pain MILD(1-3)/Fever >100.5/ANDERSEN Al Hydrox/Mg Hydrox/Simethicone 30 ml 01/25/21 01:08 01/25/21 01:31 Alum-Mag Hydroxide-Simethicone [id number]/5ml Oral Liqd 30 Ml PO 30 ml Q4H PRN Administration Indigestion Dexamethasone 10 mg 01/24/21 22:00 01/24/21 23:55 Dexamethasone 4 Mg/Ml Vial IV 01/31/21 22:01 10 mg Q24HR@2200 JACK Administration Enoxaparin Sodium 100 mg 01/24/21 22:00 01/25/21 01:33 Enoxaparin 100 Mg/1 Ml Inj SUB-Q 100 mg Q12HR JACK Administration Enoxaparin Sodium 30 mg 01/24/21 22:00 01/25/21 01:34 Enoxaparin 30 Mg/0.3 Ml Inj SUB-Q 30 mg Q12HR JACK Administration Famotidine 20 mg 01/22/21 23:45 01/24/21 23:56 Famotidine 20 Mg/2 Ml Inj IV 20 mg BID JACK Administration Hydromorphone HCl 0.5 mg 01/22/21 23:03 01/24/21 22:22 Hydromorphone 1 Mg/1 Ml Inj IV 0.5 mg Q3H PRN Administration Pain , Severe (7-10) Azithromycin 500 mg in 250 mls @ 250 mls/hr 01/23/21 10:00 01/24/21 10:13 Zithromax/Ns IV 250 mls/hr Q24H JACK Administration Ceftriaxone Sodium 2 gm in 100 mls @ 200 mls/hr 01/23/21 10:00 01/24/21 10:12 Rocephin/Ns 2 Gm/100 Ml IV 200 mls/hr Q24HR JACK Administration Protocol REMDESIVIR 100 mg/ Sodium 250 mls @ 500 mls/hr 01/24/21 21:00 01/24/21 21:25 Chloride IV 01/27/21 21:29 500 mls/hr Q24HR@2100 JACK Administration Metoclopramide HCl 10 mg 01/22/21 23:03 Metoclopramide 10 Mg/2 Ml Inj IV Q6H PRN Nausea And Vomiting Ondansetron HCl 4 mg 01/22/21 23:03 Ondansetron 4 Mg/2 Ml Inj IV Q8H PRN Nausea And Vomiting Oxycodone/Acetaminophen 1 tab 01/22/21 23:03 01/24/21 22:36 Oxycodone /Acetaminophen 5-325mg Tab PO 1 tab Q6H PRN Administration Pain, Moderate (4-6) Sodium Chloride 10 ml 01/22/21 23:45 01/24/21 22:20 Sodium Chloride 0.9% 10 Ml Flush Syringe IV 10 ml BID JACK Administration Sodium Chloride 10 ml 01/22/21 23:03 Sodium Chloride 0.9% 10 Ml Flush Syringe IV PRN PRN LINE FLUSH Sodium Chloride 50 ml 01/23/21 18:30 01/24/21 22:48 Sodium Chloride 0.9% 50 Ml Ivpb IV 01/27/21 21:01 50 ml Q24HR@2100 JACK Administration Nutrition/Malnutrition Assess - Dietary Evaluation Nutrition/Malnutrition Findings: Nutrition Notes Start: 01/24/21 13:25 Freq: Status: Active Protocol: Document 01/24/21 15:56 SG (Rec: 01/24/21 16:15 SG [id number]) Nutrition Notes Need for 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 Pt on biPAP in ED. Burn Absent Trauma Absent Is patient on ventilator? No Is Patient Ambulatory and/or Out of Bed No REE-([place] [facility]-confined to bed) [phone] Additional Notes Energy (mifflin - 500 kcal): 1993 kcal Protein needs:1.2-1.5 g/kg 153-190 gram fluid needs: 1ml/kcal Nutrition Intervention Goal #1 PT meeting at least 75% of energy and protein needs. Follow-Up By: 01/25/21 Additional Comments F/u for intake, respiratory status.
[2021-01-25] MEDS: FAMOTIDINE 20 MG/2 ML INJ IV SCH (10:10)
[2021-01-25] MEDS: cefTRIAXone/NS 2 GM/100 ML 2 GM/100 ML BAG IV SCH (10:11)
[2021-01-25] MEDS ORDERED: propofoL 200 MG/20 ML VIAL IV ONE (10:48)
[2021-01-25] MEDS: fentaNYL DRIP Premix 2,000 MCG/100 ML BAG IV SCH (11:15)
[2021-01-25] MEDS ORDERED: fentaNYL 100 MCG/2 ML INJ IV PRN (11:32)
--- NOTE | 2021-01-25 11:45 | Event Note ---
Date: 01/25/21 (Urgent Intubation) Called to ED for assistance with COVID+ patient in respiratory distress with concern for possible difficult intubation given morbid obesity. Donned PPE per protocol prior to patient contact. Patient awake, alert, normotensive, tachycardic, SpO2 80% on NIPPV 100%. Intubation procedure explained, questions answered and verbal consent obtained. VS monitored. Preoxygenation with NIPPV in place. Induction with propofol 150mg IV + succinylcholine 140mg IV. Mask ventilation not attempted. Easy, atraumatic intubation with GS 4, grade 1 view, 1 attempt. 8.0 oETT secured at 22cm at the incisor. Placement confirmed with direct visualization, +CO2 color change. Desaturated to 40% which improved with after Peep 10 applied via ventilator. Normotensive, tachycardic, SpO2 65% and increasing at time of transfer of care. CXR and sedation orders per ED team. Time: 9512 - 5370 Wendy Mancini MD Anesthesiologist
[2021-01-25] MEDS ORDERED: PHENYLEPHRINE/NS 1,000 MCG/10 ML SYRINGE (OR USE) IV ONE (12:29)
[2021-01-25] MEDS ORDERED: NORepinephrine/NS 4 MG-250 ML 4 MG/250 ML BAG IV ONE (12:52)
[2021-01-25] MEDS: NORepinephrine/NS 4 MG-250 ML 4 MG/250 ML BAG IV SCH ×2 (13:00→22:00)
[2021-01-25] MEDS ORDERED: TOCILIZUMAB 800 MG in SODIUM CHLORIDE 0.9% 100 ML IV ONE (13:04)
--- NOTE | 2021-01-25 13:04 | Progress Note ---
Assessment and Plan Cultures: SARS CoV2 PCR: positive 01/22/2021 blood culture: No growth A/P: 55/M with obesity, admitted with: #Bilateral pneumonia: Secondary to COVID-19 #Acute hypoxic respiratory failure: Failed BiPAP. Requiring mechanical ventilation. #Morbid obesity Recs: -Got intubated, now on mechanical ventilation. D-dimer >10,000, ferritin 1031, CRP 16.8. Actemra ordered -IV/PO Dexamethasone 10 mg daily x 10 days, higher dose due to morbid obesity -continue Remdesivir -prophylactic anticoagulation based on d-dimer per hospital protocol. DVT scan negative. -trend ferritin, LDH, d-dimer, CRP every 2-3 days for risk stratification and to assess disease progression -guarded prognosis Misael Dudley MD, FACP [facility] ([facility] O: [phone] F: [phone] Subjective Date of service: 01/25/21 Interval history: Low-grade fever. Got intubated, now on mechanical ventilation. D-dimer >10,000, ferritin 1031, CRP 16.8. Objective - Exam Narrative Exam: Physical Exam (reviewed in chart to minimize risk of transmission) Constitutional: deferred Head, Ears, Nose: deferred Eyes: deferred Neck: deferred Oral: deferred Cardiovascular: deferred Respiratory: deferred GI: deferred Musculoskeletal: deferred Skin: deferred Hem/Lymphatic: deferred Psych: deferred Neurological: deferred - Constitutional Vitals: Vital Signs Temp Pulse Resp BP Pulse Ox 99.8 F H 129 H 30 H 90/49 68 L 01/23/21 09:43 01/25/21 12:38 01/25/21 12:38 01/25/21 12:38 01/25/21 12:38 - Labs CBC & Chem 7: 01/23/21 05:29 01/25/21 06:22 Labs: Abnormal lab results 01/24/21 01/24/21 01/24/21 Range/Units 20:20 20:20 20:20 D-Dimer > 29733 H (0-234) ng/mlDDU ABG pH (7.320-7.450) POC ABG pO2 (83-108) mmHg ABG Oxyhemoglobin (94-98) ABG Sodium (136.0-145.0) mmol/L ABG Potassium (3.40-4.50) mmol/L ABG Chloride (98-107) mmol/L ABG Glucose (65-95) mg/dL Sodium (137-145) mmol/L Potassium (3.6-5.0) mmol/L Chloride (98-107) mmol/L Carbon Dioxide (22-30) mmol/L BUN (9-20) mg/dL Glucose (75-100) mg/dL Ferritin 1031.0 H (30.0-300.0) ng/mL Total Bilirubin (0.1-1.2) mg/dL AST (5-40) units/L Alkaline Phosphatase (35-129) units/L Lactate Dehydrogenase 1511 H (91-180) units/L C-Reactive Protein 12.00 H (0.00-1.30) mg/dL Albumin (3.9-5) g/dL Arterial Blood Glucose (65-95) mg/dL 01/25/21 01/25/21 01/25/21 Range/Units 06:22 06:22 06:22 D-Dimer > 99141 H (0-234) ng/mlDDU ABG pH (7.320-7.450) POC ABG pO2 (83-108) mmHg ABG Oxyhemoglobin (94-98) ABG Sodium (136.0-145.0) mmol/L ABG Potassium (3.40-4.50) mmol/L ABG Chloride (98-107) mmol/L ABG Glucose (65-95) mg/dL Sodium 153 H (137-145) mmol/L Potassium 3.4 L D (3.6-5.0) mmol/L Chloride 116.1 H (98-107) mmol/L Carbon Dioxide 21 L (22-30) mmol/L BUN 27 H (9-20) mg/dL Glucose 133 H (75-100) mg/dL Ferritin (30.0-300.0) ng/mL Total Bilirubin 1.30 H (0.1-1.2) mg/dL AST 50 H (5-40) units/L Alkaline Phosphatase 159 H (35-129) units/L Lactate Dehydrogenase (91-180) units/L C-Reactive Protein 16.80 H (0.00-1.30) mg/dL Albumin 2.9 L (3.9-5) g/dL Arterial Blood Glucose (65-95) mg/dL 01/25/21 Range/Units 09:35 D-Dimer (0-234) ng/mlDDU ABG pH 7.453 H (7.320-7.450) POC ABG pO2 44.9 L (83-108) mmHg ABG Oxyhemoglobin 81.4 L (94-98) ABG Sodium 153.1 H (136.0-145.0) mmol/L ABG Potassium 3.3 L (3.40-4.50) mmol/L ABG Chloride 116.0 H (98-107) mmol/L ABG Glucose 151 H (65-95) mg/dL Sodium (137-145) mmol/L Potassium (3.6-5.0) mmol/L Chloride (98-107) mmol/L Carbon Dioxide (22-30) mmol/L BUN (9-20) mg/dL Glucose (75-100) mg/dL Ferritin (30.0-300.0) ng/mL Total Bilirubin (0.1-1.2) mg/dL AST (5-40) units/L Alkaline Phosphatase (35-129) units/L Lactate Dehydrogenase (91-180) units/L C-Reactive Protein (0.00-1.30) mg/dL Albumin (3.9-5) g/dL Arterial Blood Glucose 151 H (65-95) mg/dL
--- NOTE | 2021-01-25 13:23 | Progress Note ---
Assessment and Plan Acute hypoxemic respiratory failure COVID-19 infection Multifocal pneumonia Hypernatremia Sepsis Morbid obesity with BMI of 40.0-44.9, adult - begin Vasopressors for target MAP > 65 mmHg - RIJ CVL placed - sedation for target RASS -2 to -3 acutely - teresita evaluate for proning if no improvement in oxygenation next 24-48 hours - Daily SAT and SBT assessment as tolerated - continue to wean supplemental oxygen for target O2 sat's > 90% acutely - VAP bundle addressed - continue lung protective strategies - continue bronchodilators with pulmonary hygiene per RT - wean per pulmonary driven protocols otherwise - avoid nephrotoxins, renally dose all medications - continue to avoid benzodiazepine's, reduce the possibility of delirium - complete AB's per ID rec's - prn analgesia per CPOT score - Maintenance of sleep-wake cycle, avoid delirium - enteral nutritional support at goal rate as tolerated - G.I. & VTE prophylaxis - PT/OT/ROM exercises - continue mobility protocols for pressure ulcer prophylaxis - Monitor hemodynamics closely - continue other care per attending / other consultants - discharge planning ongoing concurrently COVID SPECIFIC INTERVENTIONS - Remdesivir as per ID/Pulmonary developed protocols (receiving) - continue systemic steroids for severe COVID-19 infection (Dexamethasone) - follow repeat COVID tests results - zinc and vitamin C supplementation - Monitor inflammatory markers per facility protocol - ferritin, Ddimer, CRP - therapeutic anticoagulation per system Protocol based on d-dimer and clinical considerations (VTE prophylaxis doses now) - Continue contact and airborne isolation .... Re-evaluate in am & prn CONDITION: CRITICAL PROGNOSIS: GUARDED CODE STATUS: FULL CODE The high probability of a clinically significant, sudden or life-threatening deterioration of the [respiratory, cardiovascular & neurologic] system(s) required my full and direct attention, intervention and personal management. The aggregate critical care time was [45] minutes without overlap. Time includes spent on; [x] Data Review and interpretation [x] Patient assessment and monitoring of vital signs [x] Documentation [x] Medication orders and management Subjective Date of service: 01/25/21 Principal diagnosis: Ac hypoxemic resp failure; COVID-19; Pneumonia; Sepsis; Morbid obesity Interval history: Patient is seen today for: Acute hypoxemic respiratory failure; COVID- 19infection; Multifocal pneumonia; Hypernatremia; Sepsis; Morbid obesity Seen and examined at bedside; 24hour events reviewed; nursing and respiratory care staff consulted; no adverse overnight events reported to me; resting in bed with labored breathing on MVS; BP's soft post intubation; also now hypotensive; no emesis or overt aspiration Objective Vital Signs - 12hr 01/25/21 01/25/21 01/25/21 03:14 04:00 05:00 Pulse Rate 78 82 80 Respiratory 31 H 33 H 34 H Rate Blood Pressure 128/65 129/74 117/57 Blood Pressure [Left] O2 Sat by Pulse 83 L 83 L 85 Oximetry 01/25/21 01/25/21 01/25/21 06:00 08:00 09:00 Pulse Rate 80 92 H Respiratory 35 H 35 H 44 H Rate Blood Pressure 132/66 149/83 149/83 Blood Pressure [Left] O2 Sat by Pulse 81 L 86 84 Oximetry 01/25/21 01/25/21 01/25/21 09:36 09:37 10:00 Pulse Rate 106 H 105 H Respiratory 30 H 30 H 37 H Rate Blood Pressure 106/83 Blood Pressure 109/70 [Left] O2 Sat by Pulse 83 L 83 L 84 Oximetry 01/25/21 01/25/21 01/25/21 11:00 11:24 11:29 Pulse Rate 107 H 127 H 117 H Respiratory 59 H 32 H Rate Blood Pressure 131/54 99/73 Blood Pressure 100/47 [Left] O2 Sat by Pulse 80 L 88 85 Oximetry 01/25/21 01/25/21 01/25/21 11:50 12:00 12:09 Pulse Rate 138 H 141 H 140 H Respiratory 32 H 32 H 30 H Rate Blood Pressure Blood Pressure 99/65 121/51 106/53 [Left] O2 Sat by Pulse 88 87 76 L Oximetry 01/25/21 01/25/21 12:23 12:38 Pulse Rate 141 H 129 H Respiratory 31 H 30 H Rate Blood Pressure Blood Pressure 124/50 90/49 [Left] O2 Sat by Pulse 81 L 68 L Oximetry Constitutional: appears uncomfortable, other (middle aged obese male with mildly increased respiratory effort at rest on MVS) Eyes: non-icteric ENT: oropharynx moist, other (ETT 24 cm BRE) Neck: supple, no lymphadenopathy, no JVD, other (large circumference) Effort: mildly labored Ascultation: Bilateral: diminished breath sounds, rales Percussion: Bilateral: not dull Cardiovascular: regular rate and rhythm Gastrointestinal: normoactive bowel sounds, soft, non-tender, non-distended (protuberant) Integumentary: normal Extremities: no cyanosis, no edema, pink and warm, pulses normal Neurologic: normal mental status, non-focal exam (grossly), pupils equal and round, unable to assess (sedated) Psychiatric: depressed CBC and BMP: 01/23/21 05:29 01/25/21 06:22 ABG, PT/INR, D-dimer: ABG ABG pH 7.453 (7.320-7.450) H 01/25/21 09:35 POC ABG pCO2 32.0 mmHg (32.0-48.0) 01/25/21 09:35 POC ABG pO2 44.9 mmHg (83-108) L 01/25/21 09:35 POC ABG HCO3 21.9 01/25/21 09:35 ABG O2 Saturation 82.6 (0-100) 01/25/21 09:35 PT/INR, D-dimer D-Dimer > 34305 ng/mlDDU (0-234) H 01/25/21 06:22 Abnormal lab findings: Abnormal Labs 01/22/21 01/22/21 01/22/21 11:06 11:06 11:06 WBC RBC Hgb Hct Lymph % (Auto) Lymph # (Auto) [place] # (Auto) Seg Neutrophils % Seg Neuts % (Manual) Lymphocytes % (Manual) Nucleated RBC % Seg Neutrophils # Seg Neutrophils # Man Lymphocytes # (Manual) Monocytes # (Manual) D-Dimer 2625.11 H ABG pH POC ABG pCO2 POC ABG pO2 ABG Oxyhemoglobin ABG Sodium ABG Potassium ABG Chloride ABG Glucose Carboxyhemoglobin Sodium Potassium Chloride Carbon Dioxide BUN Creatinine Glucose 130 H Hemoglobin A1c Lactic Acid Ferritin 557.5 H Total Bilirubin AST Alkaline Phosphatase Lactate Dehydrogenase 799 H C-Reactive Protein 3.30 H Albumin Arterial Blood Glucose Coronavirus (PCR) 01/22/21 01/22/21 01/22/21 11:06 11:06 11:06 WBC 19.2 H RBC 5.63 H Hgb 15.8 H Hct 49.0 H Lymph % (Auto) Lymph # (Auto) [place] # (Auto) Seg Neutrophils % Seg Neuts % (Manual) 92.0 H Lymphocytes % (Manual) 1.0 L Nucleated RBC % 1.0 H Seg Neutrophils # Seg Neutrophils # Man 17.7 H Lymphocytes # (Manual) 0.2 L Monocytes # (Manual) 1.0 H D-Dimer ABG pH POC ABG pCO2 POC ABG pO2 ABG Oxyhemoglobin ABG Sodium ABG Potassium ABG Chloride ABG Glucose Carboxyhemoglobin Sodium Potassium 3.3 L Chloride Carbon Dioxide 20 L BUN 32 H Creatinine Glucose 130 H Hemoglobin A1c Lactic Acid 4.20 H* Ferritin Total Bilirubin AST Alkaline Phosphatase Lactate Dehydrogenase C-Reactive Protein Albumin 2.9 L Arterial Blood Glucose Coronavirus (PCR) 01/22/21 01/22/21 01/23/21 11:06 12:03 05:29 WBC 19.0 H RBC 5.24 H Hgb 15.3 H Hct 46.0 H Lymph % (Auto) 4.4 L Lymph # (Auto) 0.8 L [place] # (Auto) 1.2 H Seg Neutrophils % 89.1 H Seg Neuts % (Manual) Lymphocytes % (Manual) Nucleated RBC % Seg Neutrophils # 16.9 H Seg Neutrophils # Man Lymphocytes # (Manual) Monocytes # (Manual) D-Dimer ABG pH POC ABG pCO2 30.7 L POC ABG pO2 61.4 L ABG Oxyhemoglobin 90.5 L ABG Sodium ABG Potassium ABG Chloride ABG Glucose Carboxyhemoglobin 1.7 H Sodium Potassium Chloride Carbon Dioxide BUN Creatinine Glucose Hemoglobin A1c 6.2 H Lactic Acid Ferritin Total Bilirubin AST Alkaline Phosphatase Lactate Dehydrogenase C-Reactive Protein Albumin Arterial Blood Glucose Coronavirus (PCR) 01/23/21 01/23/21 01/23/21 05:29 09:00 16:55 WBC RBC Hgb Hct Lymph % (Auto) Lymph # (Auto) [place] # (Auto) Seg Neutrophils % Seg Neuts % (Manual) Lymphocytes % (Manual) Nucleated RBC % Seg Neutrophils # Seg Neutrophils # Man Lymphocytes # (Manual) Monocytes # (Manual) D-Dimer ABG pH POC ABG pCO2 POC ABG pO2 ABG Oxyhemoglobin ABG Sodium ABG Potassium ABG Chloride ABG Glucose Carboxyhemoglobin Sodium Potassium 3.5 L Chloride Carbon Dioxide BUN 29 H 27 H Creatinine Glucose 132 H 103 H Hemoglobin A1c Lactic Acid Ferritin Total Bilirubin AST Alkaline Phosphatase Lactate Dehydrogenase C-Reactive Protein Albumin 2.9 L 2.9 L Arterial Blood Glucose Coronavirus (PCR) Positive A 01/24/21 01/24/2101/24/21 05:50 20:20 20:20 WBC RBC Hgb Hct Lymph % (Auto) Lymph # (Auto) [place] # (Auto) Seg Neutrophils % Seg Neuts % (Manual) Lymphocytes % (Manual) Nucleated RBC % Seg Neutrophils # Seg Neutrophils # Man Lymphocytes # (Manual) Monocytes # (Manual) D-Dimer ABG pH POC ABG pCO2 POC ABG pO2 ABG Oxyhemoglobin ABG Sodium ABG Potassium ABG Chloride ABG Glucose Carboxyhemoglobin Sodium 148 H Potassium 5.3 H D Chloride 109.3 H Carbon Dioxide BUN 26 H Creatinine 0.7 L Glucose 130 H Hemoglobin A1c Lactic Acid Ferritin 1031.0 H Total Bilirubin AST 45 H Alkaline Phosphatase Lactate Dehydrogenase 1511 H C-Reactive Protein 12.00 H Albumin 2.9 L Arterial Blood Glucose Coronavirus (PCR) 01/24/21 01/25/21 01/25/21 20:20 06:22 06:22 WBC RBC Hgb Hct Lymph % (Auto) Lymph # (Auto) [place] # (Auto) Seg Neutrophils % Seg Neuts % (Manual) Lymphocytes % (Manual) Nucleated RBC % Seg Neutrophils # Seg Neutrophils # Man Lymphocytes # (Manual) Monocytes # (Manual) D-Dimer > 84406 H > 57872 H ABG pH POC ABG pCO2 POC ABG pO2 ABG Oxyhemoglobin ABG Sodium ABG Potassium ABG Chloride ABG Glucose Carboxyhemoglobin Sodium 153 H Potassium 3.4 L D Chloride 116.1 H Carbon Dioxide 21 L BUN 27 H Creatinine Glucose 133 H Hemoglobin A1c Lactic Acid Ferritin Total Bilirubin 1.30 H AST 50 H Alkaline Phosphatase 159 H Lactate Dehydrogenase C-Reactive Protein Albumin 2.9 L Arterial Blood Glucose Coronavirus (PCR) 01/25/21 01/25/21 06:22 09:35 WBC RBC Hgb Hct Lymph % (Auto) Lymph # (Auto) [place] # (Auto) Seg Neutrophils % Seg Neuts % (Manual) Lymphocytes % (Manual) Nucleated RBC % Seg Neutrophils # Seg Neutrophils # Man Lymphocytes # (Manual) Monocytes # (Manual) D-Dimer ABG pH 7.453 H POC ABG pCO2 POC ABG pO2 44.9 L ABG Oxyhemoglobin 81.4 L ABG Sodium 153.1 H ABG Potassium 3.3 L ABG Chloride 116.0 H ABG Glucose 151 H Carboxyhemoglobin Sodium Potassium Chloride Carbon Dioxide BUN Creatinine Glucose Hemoglobin A1c Lactic Acid Ferritin Total Bilirubin AST Alkaline Phosphatase Lactate Dehydrogenase C-Reactive Protein 16.80 H Albumin Arterial Blood Glucose 151 H Coronavirus (PCR) Chest x-ray: image reviewed (ETT riding high; bilateral infiltrates persist; RIJ in good position) Allied health notes reviewed: nursing
--- NOTE | 2021-01-25 13:25 | Procedure Note ---
Date of procedure: 01/25/21 Pre-op diagnosis: ARDS; Hypotension; COVID Post-op diagnosis: same Procedure: RIJ CVL Placement (Full dictation # [id number]) Please see dictated notes for full details
[2021-01-25] MEDS ORDERED: LIP THERAPY VASELINE TP PRN (13:27)
[2021-01-25] MEDS ORDERED: MINERAL OIL/PETROLATUM, WHITE OPHTH OINT 3.5 GM OU PRN (13:27)
[2021-01-25] MEDS: AZITHROMYCIN/NS 500 MG/250 ML 500 MG/250 ML BAG IV SCH (13:42)
[2021-01-25] MEDS ORDERED: ROCURONIUM 50 MG/5 ML INJ IV ONE (13:43)
--- NOTE | 2021-01-25 13:43 | XRay Report ---
XR chest 1V ap INDICATION / CLINICAL INFORMATION: dyspnea. COMPARISON: 01/22/2021 FINDINGS: SUPPORT DEVICES: Endotracheal tube terminates over the trachea at the level of the clavicular heads. Right IJ central venous catheter tip terminates in the region of the cavoatrial junction. HEART /PULMONARY VASCULATURE: Unchanged LUNGS / PLEURA: Low lung volumes remain. Moderate patchy bilateral airspace opacities appear unchange d. No sizable pleural effusion. No pneumothorax. ADDITIONAL FINDINGS: No significant additional findings. IMPRESSION: Stable appearance of the chest with satisfactory position of support devices, as above Signer Name: Donald Hyatt MD Signed: 01/25/2021 1:38 PM Workstation Name: [id number]
--- NOTE | 2021-01-25 14:13 | Operative Report ---
DATE OF SURGERY: 01/25/2021 PULMONARY PROCEDURE NOTE PROCEDURE: Right internal jugular central venous line placement. INDICATIONS: Hypotension, acute respiratory distress syndrome. CONSENT: Informed and witnessed obtained from the patient's , Hilda López over the phone and reached at phone number [phone]. DESCRIPTION OF PROCEDURE: After informed and witnessed consent as well as premedication, the patient being on mechanical ventilator and on propofol and fentanyl drip and just received paralytic. The area of the right upper anterior triangle of the neck was sterilely prepped and draped. Full strict sterile technique was used throughout including full barrier protection, sterile hat, mask, gloves and gowns. Generous local anesthetic agent was applied. The procedure was done under ultrasound guidance. The right IJ had first been identified with the ultrasound. It was easily compressible. It did not appear to have any intraluminal clot. With the patient in Trendelenburg position, the right IJ was entered on the first stick with ultrasound guidance. Good venous looking blood return was obtained. Wire was threaded through the needle. Catheter was advanced over the wire after dilatation. Again, good venous looking blood return was obtained. The line was sutured in place with 3-0 silk sutures provided with the kit and there were no immediate procedural complications. A post-procedure chest x-ray has been reviewed. The tip of the catheter is in the superior vena cava/right atrial junction and there is no obvious pneumothorax. TID: [id number] RECEIPT: [id number] VIJAY/ZACHERY
[2021-01-25] MEDS ORDERED: MIDAZOLAM 2 MG/2 ML INJ IV PRN (16:13)
[2021-01-25] MEDS ORDERED: MIDAZOLAM 100 MG in SODIUM CHLORIDE 0.9% 80 ML IV ONE (16:30)
[2021-01-25] MEDS ORDERED: NORepinephrine/NS 4 MG-250 ML 4 MG/250 ML BAG IV SCH (18:00)
[2021-01-25] MEDS: REMDESIVIR 100 MG in SODIUM CHLORIDE 0.9% 250ML 250 ML IV SCH (21:20)
[2021-01-25] MEDS: SODIUM CHLORIDE 0.9% 50 ML IVPB IV SCH (22:05)
[2021-01-26] MEDS ORDERED: LORazepam 2 MG/ML VIAL ONE (00:31)
[2021-01-26] MEDS ORDERED: LORazepam 2 MG/ML VIAL IV ONE ×2 (00:35→12:30)
[2021-01-26] MEDS: ENOXAPARIN 30 MG/0.3 ML INJ SUB-Q SCH ×2 (00:50→12:10)
[2021-01-26] MEDS: ENOXAPARIN 100 MG/1 ML INJ SUB-Q SCH ×2 (00:51→12:10)
[2021-01-26] MEDS: dexAMETHasone 4 MG/ML VIAL IV SCH (00:52)
[2021-01-26] MEDS: FAMOTIDINE 20 MG/2 ML INJ IV SCH ×2 (00:53→12:13)
[2021-01-26] MEDS: NORepinephrine/NS 4 MG-250 ML 4 MG/250 ML BAG IV SCH ×3 (03:15→21:40)
[2021-01-26] MEDS: SENNOSIDES/DOCUSATE SODIUM 8.6/50 MG TAB FEEDTUBE SCH ×3 (03:26→22:00)
[2021-01-26 08:24] LABS: Albumin 2.3 g/dL (3.9-5); C-Reactive Protein 20.9 mg/dL (0.00-1.30); Calcium 8.5 mg/dL (8.4-10.2)
[2021-01-26 08:42] LABS: ABG HCO3 21.7 mmol/L (20.0-26.0); ABG Methemoglobin 0.7 % (0.0-1.5); ABG Oxygen Saturation 98.1 % (95.0-99.0); ABG PCO2 46.6 mm Hg; ABG PH 7.287 pH Units (7.350-7.450); ABG PO2 124.5 mm Hg (80.0-90.0)
--- NOTE | 2021-01-26 10:55 | XRay Report ---
CHEST 1 VIEW 01/26/2021 10:31 AM INDICATION / CLINICAL INFORMATION: Follow-up respiratory failure. COMPARISON: Yesterday. FINDINGS: SUPPORT DEVICES: The positions of the endotracheal tube and right jugular CVL have not changed. HEART / MEDIASTINUM: Unchanged. LUNGS / PLEURA: There are moderately severe diffuse bilateral parenchymal opacities, mildly increased . No significant pleural effusion. No pneumothorax. ADDITIONAL FINDINGS: No significant additional findings. IMPRESSION: Moderately severe diffuse bilateral parenchymal opacities have shown mild increase. Signer Name: Johan Verde MD Signed: 01/26/2021 10:50 AM Workstation Name: [id number]
--- NOTE | 2021-01-26 11:15 | Progress Note ---
Assessment and Plan Acute hypoxemic respiratory failure COVID-19 infection Multifocal pneumonia Hypernatremia Sepsis Morbid obesity with BMI of 40.0-44.9, adult - repeat BMP stat - nephrology consult placed and case discussed - still making some urine - wean Vasopressors for target MAP > 65 mmHg - repeat ABG at 9pm and address - continue care as below otherwise; - sedation for target RASS -2 to -3 acutely - Daily SAT and SBT assessment as tolerated - continue to wean supplemental oxygen for target O2 sat's > 92% acutely - VAP bundle addressed - continue lung protective strategies - continue bronchodilators with pulmonary hygiene per RT - wean per pulmonary driven protocols otherwise - avoid nephrotoxins, renally dose all medications - continue to avoid benzodiazepine's, reduce the possibility of delirium - complete AB's per ID rec's - prn analgesia per CPOT score - Maintenance of sleep-wake cycle, avoid delirium - enteral nutritional support at goal rate as tolerated - G.I. & VTE prophylaxis - PT/OT/ROM exercises - continue mobility protocols for pressure ulcer prophylaxis - Monitor hemodynamics closely - continue other care per attending / other consultants - discharge planning ongoing concurrently COVID SPECIFIC INTERVENTIONS - Remdesivir as per ID/Pulmonary developed protocols (receiving) - continue systemic steroids for severe COVID-19 infection (Dexamethasone) - follow repeat COVID tests results - zinc and vitamin C supplementation - Monitor inflammatory markers per facility protocol - ferritin, Ddimer, CRP - therapeutic anticoagulation per system Protocol based on d-dimer and clinical considerations (VTE prophylaxis doses now) - Continue contact and airborne isolation .... Re-evaluate in am & prn CONDITION: CRITICAL PROGNOSIS: GUARDED CODE STATUS: FULL CODE The high probability of a clinically significant, sudden or life-threatening deterioration of the [respiratory, cardiovascular & neurologic] system(s) required my full and direct attention, intervention and personal management. The aggregate critical care time was [35] minutes without overlap. Time includes spent on; [x] Data Review and interpretation [x] Patient assessment and monitoring of vital signs [x] Documentation [x] Medication orders and management Subjective Date of service: 01/26/21 Principal diagnosis: Ac hypoxemic resp failure; COVID-19; Pneumonia; Sepsis; Morbid obesity Interval history: Patient is seen today for: Acute hypoxemic respiratory failure; COVID-19infection; Multifocal pneumonia; Hypernatremia; Sepsis; Morbid obesity Seen and examined at bedside; 24hour events reviewed; nursing and respiratory care staff consulted; no adverse overnight events reported to me; resting in bed; remains on MVS; sedated; remains on Levophed drip; no emesis or overt aspiration and no gross bleeding; serum creatinine has more than doubled and he may be headed towards dialysis Objective Vital Signs - 12hr 01/26/21 01/26/21 01/26/21 00:00 01:00 02:01 Pulse Rate 91 H 96 H 89 Respiratory 14 14 11 L Rate Blood Pressure 108/57 111/42 108/58 O2 Sat by Pulse 89 92 94 Oximetry 01/26/21 01/26/21 01/26/21 03:00 03:01 04:00 Pulse Rate 91 H 91 H 90 Respiratory 12 16 Rate Blood Pressure 112/56 107/57 121/57 O2 Sat by Pulse 94 94 93 Oximetry 01/26/21 01/26/21 01/26/21 05:00 06:00 07:01 Pulse Rate 92 H 90 89 Respiratory 15 17 11 L Rate Blood Pressure 119/53 110/59 119/63 O2 Sat by Pulse 93 92 96 Oximetry 01/26/21 01/26/21 01/26/21 08:00 08:13 09:00 Pulse Rate 88 87 90 Respiratory 12 12 Rate Blood Pressure 119/53 123/54 134/53 O2 Sat by Pulse 93 94 93 Oximetry 01/26/21 01/26/21 10:00 11:08 Pulse Rate 90 Respiratory Rate Blood Pressure 123/52 O2 Sat by Pulse 98 96 Oximetry Constitutional: no acute distress, other (middle aged obese male with mildly increased respiratory effort at rest on MVS) Eyes: non-icteric ENT: oropharynx moist, other (ETT 24 cm BRE) Neck: supple, no lymphadenopathy, no JVD, other (large circumference) Effort: mildly labored Ascultation: Bilateral: diminished breath sounds, rhonchi Percussion: Bilateral: not dull Cardiovascular: regular rate and rhythm Gastrointestinal: normoactive bowel sounds, soft, non-tender, non-distended (protuberant) Integumentary: normal Extremities: no cyanosis, no edema, pink and warm, pulses normal Neurologic: normal mental status, non-focal exam (grossly), pupils equal and round, unable to assess (sedated) Psychiatric: depressed CBC and BMP: 01/23/21 05:29 01/27/21 05:00 ABG, PT/INR, D-dimer: ABG ABG pH 7.287 pH Units (7.350-7.450) L 01/26/21 08:30 POC ABG pCO2 40.6 mmHg (32.0-48.0) 01/25/21 21:00 ABG pCO2 46.6 mm Hg 01/26/21 08:30 POC ABG pO2 68.5 mmHg (83-108) L 01/25/21 21:00 ABG pO2 124.5 mm Hg (80.0-90.0) H 01/26/21 08:30 POC ABG HCO3 21.3 01/25/21 21:00 ABG O2 Saturation 98.1 % (95.0-99.0) 01/26/21 08:30 PT/INR, D-dimer D-Dimer > 82599 ng/mlDDU (0-234) H 01/25/21 06:22 Abnormal lab findings: Abnormal Labs 01/22/21 01/22/21 01/22/21 11:06 11:06 11:06 WBC RBC Hgb Hct Lymph % (Auto) Lymph # (Auto) [place] # (Auto) Seg Neutrophils % Seg Neuts % (Manual) Lymphocytes % (Manual) Nucleated RBC % Seg Neutrophils # Seg Neutrophils # Man Lymphocytes # (Manual) Monocytes # (Manual) D-Dimer 2625.11 H ABG pH POC ABG pCO2 POC ABG pO2 ABG pO2 ABG Base Excess ABG Oxyhemoglobin ABG Sodium ABG Potassium ABG Chloride ABG Glucose Carboxyhemoglobin Sodium Potassium Chloride Carbon Dioxide BUN Creatinine Glucose 130 H Hemoglobin A1c Lactic Acid Ferritin 557.5 H Total Bilirubin AST Alkaline Phosphatase Lactate Dehydrogenase 799 H C-Reactive Protein 3.30 H Albumin Arterial Blood Glucose Coronavirus (PCR) 01/22/21 01/22/21 01/22/21 11:06 11:06 11:06 WBC 19.2 H RBC 5.63 H Hgb 15.8 H Hct 49.0 H Lymph % (Auto) Lymph # (Auto) [place] # (Auto) Seg Neutrophils % Seg Neuts % (Manual) 92.0 H Lymphocytes % (Manual) 1.0 L Nucleated RBC % 1.0 H Seg Neutrophils # Seg Neutrophils # Man 17.7 H Lymphocytes # (Manual) 0.2 L Monocytes # (Manual) 1.0 H D-Dimer ABG pH POC ABG pCO2 POC ABG pO2 ABG pO2 ABG Base Excess ABG Oxyhemoglobin ABG Sodium ABG Potassium ABG Chloride ABG Glucose Carboxyhemoglobin Sodium Potassium 3.3 L Chloride Carbon Dioxide 20 L BUN 32 H Creatinine Glucose 130 H Hemoglobin A1c Lactic Acid 4.20 H* Ferritin Total Bilirubin AST Alkaline Phosphatase Lactate Dehydrogenase C-Reactive Protein Albumin 2.9 L Arterial Blood Glucose Coronavirus (PCR) 01/22/21 01/22/21 01/23/21 11:06 12:03 05:29 WBC 19.0 H RBC 5.24 H Hgb 15.3 H Hct 46.0 H Lymph % (Auto) 4.4 L Lymph # (Auto) 0.8 L [place] # (Auto) 1.2 H Seg Neutrophils % 89.1 H Seg Neuts % (Manual) Lymphocytes % (Manual) Nucleated RBC % Seg Neutrophils # 16.9 H Seg Neutrophils # Man Lymphocytes # (Manual) Monocytes # (Manual) D-Dimer ABG pH POC ABG pCO2 30.7 L POC ABG pO2 61.4 L ABG pO2 ABG Base Excess ABG Oxyhemoglobin 90.5 L ABG Sodium ABG Potassium ABG Chloride ABG Glucose Carboxyhemoglobin 1.7 H Sodium Potassium Chloride Carbon Dioxide BUN Creatinine Glucose Hemoglobin A1c 6.2 H Lactic Acid Ferritin Total Bilirubin AST Alkaline Phosphatase Lactate Dehydrogenase C-Reactive Protein Albumin Arterial Blood Glucose Coronavirus (PCR) 01/23/21 01/23/21 01/23/21 05:29 09:00 16:55 WBC RBC Hgb Hct Lymph % (Auto) Lymph # (Auto) [place] # (Auto) Seg Neutrophils % Seg Neuts % (Manual) Lymphocytes % (Manual) Nucleated RBC % Seg Neutrophils # Seg Neutrophils # Man Lymphocytes # (Manual) Monocytes # (Manual) D-Dimer ABG pH POC ABG pCO2 POC ABG pO2 ABG pO2 ABG Base Excess ABG Oxyhemoglobin ABG Sodium ABG Potassium ABG Chloride ABG Glucose Carboxyhemoglobin Sodium Potassium 3.5 L Chloride Carbon Dioxide BUN 29 H 27 H Creatinine Glucose 132 H 103 H Hemoglobin A1c Lactic Acid Ferritin Total Bilirubin AST Alkaline Phosphatase Lactate Dehydrogenase C-Reactive Protein Albumin 2.9 L 2.9 L Arterial Blood Glucose Coronavirus (PCR) Positive A 08/18/21 08/18/21 08/18/21 05:50 20:20 20:20 WBC RBC Hgb Hct Lymph % (Auto) Lymph # (Auto) [place] # (Auto) Seg Neutrophils % Seg Neuts % (Manual) Lymphocytes % (Manual) Nucleated RBC % Seg Neutrophils # Seg Neutrophils # Man Lymphocytes # (Manual) Monocytes # (Manual) D-Dimer ABG pH POC ABG pCO2 POC ABG pO2 ABG pO2 ABG Base Excess ABG Oxyhemoglobin ABG Sodium ABG Potassium ABG Chloride ABG Glucose Carboxyhemoglobin Sodium 148 H Potassium 5.3 H D Chloride 109.3 H Carbon Dioxide BUN 26 H Creatinine 0.7 L Glucose 130 H Hemoglobin A1c Lactic Acid Ferritin 1031.0 H Total Bilirubin AST 45 H Alkaline Phosphatase Lactate Dehydrogenase 1511 H C-Reactive Protein 12.00 H Albumin 2.9 L Arterial Blood Glucose Coronavirus (PCR) 01/24/21 01/25/21 01/25/21 20:20 06:22 06:22 WBC RBC Hgb Hct Lymph % (Auto) Lymph # (Auto) [place] # (Auto) Seg Neutrophils % Seg Neuts % (Manual) Lymphocytes % (Manual) Nucleated RBC % Seg Neutrophils # Seg Neutrophils # Man Lymphocytes # (Manual) Monocytes # (Manual) D-Dimer > 69580 H > 63010 H ABG pH POC ABG pCO2 POC ABG pO2 ABG pO2 ABG Base Excess ABG Oxyhemoglobin ABG Sodium ABG Potassium ABG Chloride ABG Glucose Carboxyhemoglobin Sodium 153 H Potassium 3.4 L D Chloride 116.1 H Carbon Dioxide 21 L BUN 27 H Creatinine Glucose 133 H Hemoglobin A1c Lactic Acid Ferritin Total Bilirubin 1.30 H AST 50 H Alkaline Phosphatase 159 H Lactate Dehydrogenase C-Reactive Protein Albumin 2.9 L Arterial Blood Glucose Coronavirus (PCR) 01/25/21 01/25/21 01/25/21 06:22 09:35 11:25 WBC RBC Hgb Hct Lymph % (Auto) Lymph # (Auto) [place] # (Auto) Seg Neutrophils % Seg Neuts % (Manual) Lymphocytes % (Manual) Nucleated RBC % Seg Neutrophils # Seg Neutrophils # Man Lymphocytes # (Manual) Monocytes # (Manual) D-Dimer ABG pH 7.453 H 7.228 L POC ABG pCO2 60.0 H POC ABG pO2 44.9 L 111.7 H ABG pO2 ABG Base Excess ABG Oxyhemoglobin 81.4 L ABG Sodium 153.1 H 150.9 H ABG Potassium 3.3 L ABG Chloride 116.0 H 117.0 H ABG Glucose 151 H 155 H Carboxyhemoglobin Sodium Potassium Chloride Carbon Dioxide BUN Creatinine Glucose Hemoglobin A1c Lactic Acid Ferritin Total Bilirubin AST Alkaline Phosphatase Lactate Dehydrogenase C-Reactive Protein 16.80 H Albumin Arterial Blood Glucose 151 H 155 H Coronavirus (PCR) 01/25/21 01/26/21 01/26/21 21:00 07:32 07:39 WBC RBC Hgb Hct Lymph % (Auto) Lymph # (Auto) [place] # (Auto) Seg Neutrophils % Seg Neuts % (Manual) Lymphocytes % (Manual) Nucleated RBC % Seg Neutrophils # Seg Neutrophils # Man Lymphocytes # (Manual) Monocytes # (Manual) D-Dimer ABG pH POC ABG pCO2 POC ABG pO2 68.5 L ABG pO2 ABG Base Excess ABG Oxyhemoglobin 91.3 L ABG Sodium 151.9 H ABG Potassium ABG Chloride 117.0 H ABG Glucose 140 H Carboxyhemoglobin Sodium 151 H Potassium Chloride 116.7 H Carbon Dioxide 20 L BUN 59 H Creatinine 3.4 H D Glucose 121 H Hemoglobin A1c Lactic Acid Ferritin 1921.0 H Total Bilirubin AST 45 H Alkaline Phosphatase 137 H Lactate Dehydrogenase 1559 H C-Reactive Protein 20.90 H Albumin 2.3 L Arterial Blood Glucose 140 H Coronavirus (PCR) 01/26/21 08:30 WBC RBC Hgb Hct Lymph % (Auto) Lymph # (Auto) [place] # (Auto) Seg Neutrophils % Seg Neuts % (Manual) Lymphocytes % (Manual) Nucleated RBC % Seg Neutrophils # Seg Neutrophils # Man Lymphocytes # (Manual) Monocytes # (Manual) D-Dimer ABG pH 7.287 L POC ABG pCO2 POC ABG pO2 ABG pO2 124.5 H ABG Base Excess -5.0 L ABG Oxyhemoglobin ABG Sodium ABG Potassium ABG Chloride ABG Glucose Carboxyhemoglobin Sodium Potassium Chloride Carbon Dioxide BUN Creatinine Glucose Hemoglobin A1c Lactic Acid Ferritin Total Bilirubin AST Alkaline Phosphatase Lactate Dehydrogenase C-Reactive Protein Albumin Arterial Blood Glucose Coronavirus (PCR) Chest x-ray: image reviewed (persistent bilateral infiltrates ) Allied health notes reviewed: nursing
[2021-01-26] MEDS ORDERED: TOCILIZUMAB 810 MG in SODIUM CHLORIDE 0.9% 100 ML IV ONE (11:30)
[2021-01-26] MEDS ORDERED: FAMOTIDINE 20 MG/2 ML INJ IV ONE (12:06)
[2021-01-26] MEDS: cefTRIAXone/NS 2 GM/100 ML 2 GM/100 ML BAG IV SCH (12:07)
--- NOTE | 2021-01-26 12:25 | Progress Note ---
Assessment and Plan Cultures: SARS CoV2 PCR: positive 01/22/2021 blood culture: No growth 01/25/2021 endotracheal aspirate culture: In process A/P: 55/M with obesity, admitted with: #Shock: likely secondary to severe COVID-19. #Bilateral pneumonia: Secondary to COVID-19 #Acute hypoxic respiratory failure: Failed BiPAP. Requiring mechanical ventilation. #SEDRICK: monitor renal function #Morbid obesity Recs: -Actemra administration pending due to national shortage -continue IV/PO Dexamethasone 10 mg daily x 10 days, higher dose due to morbid obesity -continue Remdesivir for now, if renal function remains elevated tomorrow, would stop -continue empiric abx x 5 days -prophylactic anticoagulation based on d-dimer per hospital protocol. DVT scan negative. -trend ferritin, LDH, d-dimer, CRP every 2-3 days for risk stratification and to assess disease progression -poor prognosis Misael Dudley MD, FACP [facility] ([facility] O: [phone] F: [phone] Subjective Date of service: 01/26/21 Principal diagnosis: Ac hypoxemic resp failure; COVID-19; Pneumonia; Sepsis; Morbid obesity Interval history: Remains on the vent, creatinine is acutely worsened to 3.4, CRP 20.9, LDH 1559, ferritin 1921 Objective - Exam Narrative Exam: Physical Exam (reviewed in chart to minimize risk of transmission) Constitutional: deferred Head, Ears, Nose: deferred Eyes: deferred Neck: deferred Oral: deferred Cardiovascular: deferred Respiratory: deferred GI: deferred Musculoskeletal: deferred Skin: deferred Hem/Lymphatic: deferred Psych: deferred Neurological: deferred - Constitutional Vitals: Vital Signs Temp Pulse Resp BP Pulse Ox 99.8 F H 90 12 123/52 96 01/23/21 09:43 01/26/21 11:08 01/26/21 09:00 01/26/21 11:08 01/26/21 11:08 - Labs CBC & Chem 7: 01/23/21 05:29 01/26/21 07:32 Labs: Abnormal lab results 01/25/21 01/25/21 01/26/21 Range/Units 11:25 21:00 07:32 ABG pH 7.228 L (7.320-7.450) POC ABG pCO2 60.0 H (32.0-48.0) mmHg POC ABG pO2 111.7 H 68.5 L (83-108) mmHg ABG pO2 (80.0-90.0) mm Hg ABG Base Excess (-2.0-3.0) mmol/L ABG Oxyhemoglobin 91.3 L (94-98) ABG Sodium 150.9 H 151.9 H (136.0-145.0) mmol/L ABG Chloride 117.0 H 117.0 H (98-107) mmol/L ABG Glucose 155 H 140 H (65-95) mg/dL Sodium 151 H (137-145) mmol/L Chloride 116.7 H (98-107) mmol/L Carbon Dioxide 20 L (22-30) mmol/L BUN 59 H (9-20) mg/dL Creatinine 3.4 H D (0.8-1.3) mg/dL Glucose 121 H (75-100) mg/dL Ferritin (30.0-300.0) ng/mL AST 45 H (5-40) units/L Alkaline Phosphatase 137 H (35-129) units/L Lactate Dehydrogenase 1559 H (91-180) units/L C-Reactive Protein 20.90 H (0.00-1.30) mg/dL Albumin 2.3 L (3.9-5) g/dL Arterial Blood Glucose 155 H 140 H (65-95) mg/dL 01/26/21 01/26/21 Range/Units 07:39 08:30 ABG pH 7.287 L (7.320-7.450) POC ABG pCO2 (32.0-48.0) mmHg POC ABG pO2 (83-108) mmHg ABG pO2 124.5 H (80.0-90.0) mm Hg ABG Base Excess -5.0 L (-2.0-3.0) mmol/L ABG Oxyhemoglobin (94-98) ABG Sodium (136.0-145.0) mmol/L ABG Chloride (98-107) mmol/L ABG Glucose (65-95) mg/dL Sodium (137-145) mmol/L Chloride (98-107) mmol/L Carbon Dioxide (22-30) mmol/L BUN (9-20) mg/dL Creatinine (0.8-1.3) mg/dL Glucose (75-100) mg/dL Ferritin 1921.0 H (30.0-300.0) ng/mL AST (5-40) units/L Alkaline Phosphatase (35-129) units/L Lactate Dehydrogenase (91-180) units/L C-Reactive Protein (0.00-1.30) mg/dL Albumin (3.9-5) g/dL Arterial Blood Glucose (65-95) mg/dL
[2021-01-26] MEDS: AZITHROMYCIN/NS 500 MG/250 ML 500 MG/250 ML BAG IV SCH (13:02)
--- NOTE | 2021-01-26 16:26 | Progress Note ---
Assessment and Plan Critical care statement The high probability OF a clinically significant sudden or life-threatening deterioration of the cardiorespiratory system and endocrine system required my full and direct attention, intervention and postoperative management. The aggregate critical lcare time was 40 minutes. The time is in addition to time spent performing reported procedures but includes the followin: Data review and interpretation 2: Patient assessment and monitoring of vital signs 3: Documentation 4:: Medication orders and management - Patient Problems (1) Acute respiratory failure due to COVID-19 Current Visit: Yes Status: Acute Plan to address problem: Patient intubated On vent protocol [employer] and ID follow-up appreciated (2) Sepsis Current Visit: Yes Status: Acute Plan to address problem: Patient is a high white count and elevated inflammatory markers. Ferritin is 557 LDH is 749 CRP is 3.3. Patient on broad-spectrum IV antibiotics (3) Multifocal pneumonia Current Visit: Yes Status: Acute Plan to address problem: Patient initiated on IV ceftriaxone and Zithromax Recheck procalcitonin Will defer to ID regarding discontinuing antibiotics (4) Person under investigation for COVID-19 Current Visit: Yes Status: Acute Plan to address problem: Covid positive On steroids No remdesivir because of kidney failure (5) Malnutrition Current Visit: Yes Status: Chronic Qualifiers: Protein-calorie malnutrition severity: moderate Qualified Code(s): E44.0 - Moderate protein-calorie malnutrition Plan to address problem: On dietary supplements (6) DVT prophylaxis Current Visit: Yes Status: Acute Plan to address problem: On Lovenox 40 mg subcu daily and GI prophylaxis Subjective Date of service: 01/26/21 Principal diagnosis: Ac hypoxemic resp failure; COVID-19; Pneumonia; Sepsis; Morbid obesity Interval history: History Interval history: Patient is in acute respiratory failure on continuous BiPAP With low saturations intermittently Patient has severe Covid pneumonia, elevated D-dimers on empiric full dose anticoagulation Not a candidate for CTA chest as patient is unstable Patient is critically ill in severe distress Patient has low saturations even on continuous BiPAP May need intubation and mechanical ventilation Vital signs noted 01/26/2021 Patient is intubated Patient is Covid positive Objective - Exam Narrative Exam: Patient intubated - Constitutional Vitals: Vital Signs - 12hr 01/26/21 01/26/21 01/26/21 05:00 06:00 07:01 Temperature Pulse Rate 92 H 90 89 Respiratory 15 17 11 L Rate Blood Pressure 119/53 110/59 119/63 O2 Sat by Pulse 93 92 96 Oximetry 01/26/21 01/26/21 01/26/21 07:05 08:00 08:13 Temperature 98.2 F Pulse Rate 88 87 Respiratory 12 Rate Blood Pressure 119/53 123/54 O2 Sat by Pulse 94 94 Oximetry 01/26/21 01/26/21 01/26/21 09:00 10:00 11:00 Temperature Pulse Rate 90 87 91 H Respiratory 12 12 20 Rate Blood Pressure 134/53 123/52 122/49 O2 Sat by Pulse 93 93 92 Oximetry 01/26/21 01/26/21 01/26/21 11:08 12:00 13:00 Temperature Pulse Rate 90 87 84 Respiratory 19 27 H Rate Blood Pressure 123/52 125/59 123/61 O2 Sat by Pulse 96 92 97 Oximetry 01/26/21 01/26/21 14:00 15:11 Temperature Pulse Rate 86 87 Respiratory 29 H Rate Blood Pressure 119/59 118/65 O2 Sat by Pulse 95 92 Oximetry General appearance: Present: no acute distress, well-nourished - EENT Eyes: PERRL, EOM intact ENT: hearing intact, clear oral mucosa Ears: bilateral: normal - Neck Neck: supple, normal ROM - Respiratory Respiratory effort: normal Respiratory: bilateral: CTA - Breasts Breasts: normal - Cardiovascular Heart rate: 78 Rhythm: regular Heart Sounds: Present: S1 & S2. Absent: gallop, rub Extremities: pulses intact, No edema, normal color, Full ROM - Gastrointestinal General gastrointestinal: Present: soft, non-tender, non-distended, normal bowel sounds - Genitourinary Male genitourinary: normal - Integumentary Integumentary: clear, warm, dry - Musculoskeletal Musculoskeletal: 1, strength equal bilaterally - Neurologic Neurologic: moves all extremities - Psychiatric Psychiatric: other (Sedated) - Labs CBC & Chem 7: 01/30/21 05:00 01/30/21 05:00 Labs: Abnormal lab results 01/25/21 01/26/21 01/26/21 Range/Units 21:00 07:32 07:39 ABG pH (7.350-7.450) pH Units POC ABG pO2 68.5 L (83-108) mmHg ABG pO2 (80.0-90.0) mm Hg ABG Base Excess (-2.0-3.0) mmol/L ABG Oxyhemoglobin 91.3 L (94-98) ABG Sodium 151.9 H (136.0-145.0) mmol/L ABG Chloride 117.0 H (98-107) mmol/L ABG Glucose 140 H (65-95) mg/dL Sodium 151 H (137-145) mmol/L Chloride 116.7 H (98-107) mmol/L Carbon Dioxide 20 L (22-30) mmol/L BUN 59 H (9-20) mg/dL Creatinine 3.4 H D (0.8-1.3) mg/dL Glucose 121 H (75-100) mg/dL Ferritin 1921.0 H (30.0-300.0) ng/mL AST 45 H (5-40) units/L Alkaline Phosphatase 137 H (35-129) units/L Lactate Dehydrogenase 1559 H (91-180) units/L C-Reactive Protein 20.90 H (0.00-1.30) mg/dL Albumin 2.3 L (3.9-5) g/dL Arterial Blood Glucose 140 H (65-95) mg/dL 01/26/21 Range/Units 08:30 ABG pH 7.287 L (7.350-7.450) pH Units POC ABG pO2 (83-108) mmHg ABG pO2 124.5 H (80.0-90.0) mm Hg ABG Base Excess -5.0 L (-2.0-3.0) mmol/L ABG Oxyhemoglobin (94-98) ABG Sodium (136.0-145.0) mmol/L ABG Chloride (98-107) mmol/L ABG Glucose (65-95) mg/dL Sodium (137-145) mmol/L Chloride (98-107) mmol/L Carbon Dioxide (22-30) mmol/L BUN (9-20) mg/dL Creatinine (0.8-1.3) mg/dL Glucose (75-100) mg/dL Ferritin (30.0-300.0) ng/mL AST (5-40) units/L Alkaline Phosphatase (35-129) units/L Lactate Dehydrogenase (91-180) units/L C-Reactive Protein (0.00-1.30) mg/dL Albumin (3.9-5) g/dL Arterial Blood Glucose (65-95) mg/dL HEART Score - HEART Score Age: 45-65 Risk factors: 1-2 risk factors Troponin: < normal limit - Critical Actions Critical Actions: 0-3 pts:0.9-1.7%risk of adverse cardiac event.Candidate for discharge
[2021-01-26] MEDS: fentaNYL DRIP Premix 2,000 MCG/100 ML BAG IV SCH ×2 (17:06→21:39)
[2021-01-26 21:11] LABS: Calcium 7.4 mg/dL (8.4-10.2)
[2021-01-27] MEDS: dexAMETHasone 4 MG/ML VIAL IV SCH ×2 (00:54→21:37)
[2021-01-27] MEDS: REMDESIVIR 100 MG in SODIUM CHLORIDE 0.9% 250ML 250 ML IV SCH (00:56)
[2021-01-27] MEDS: ENOXAPARIN 30 MG/0.3 ML INJ SUB-Q SCH ×2 (00:57→21:37)
[2021-01-27] MEDS: ENOXAPARIN 100 MG/1 ML INJ SUB-Q SCH ×2 (00:57→21:37)
[2021-01-27] MEDS: SODIUM CHLORIDE 0.9% 50 ML IVPB IV SCH (01:00)
[2021-01-27] MEDS: NORepinephrine/NS 4 MG-250 ML 4 MG/250 ML BAG IV SCH ×6 (01:10→21:39)
[2021-01-27] MEDS: fentaNYL DRIP Premix 2,000 MCG/100 ML BAG IV SCH ×6 (01:11→21:38)
[2021-01-27 06:08] LABS: Calcium 7.9 mg/dL (8.4-10.2)
--- NOTE | 2021-01-27 08:29 | Progress Note ---
Assessment and Plan Critical care statement The high probability OF a clinically significant sudden or life-threatening deterioration of the cardiorespiratory system and endocrine system required my full and direct attention, intervention and postoperative management. The aggregate critical lcare time was 40 minutes. The time is in addition to time spent performing reported procedures but includes the followin: Data review and interpretation 2: Patient assessment and monitoring of vital signs 3: Documentation 4:: Medication orders and management - Patient Problems (1) Acute respiratory failure due to COVID-19 Current Visit: Yes Status: Acute Plan to address problem: Patient intubated On vent protocol (2) Sepsis Current Visit: Yes Status: Acute Plan to address problem: Patient is a high white count and elevated inflammatory markers. Ferritin is 557 LDH is 749 CRP is 3.3. (3) Multifocal pneumonia Current Visit: Yes Status: Acute Plan to address problem: Patient initiated on IV ceftriaxone and Zithromax Recheck procalcitonin Will defer to ID regarding discontinuing antibiotics (4) Person under investigation for COVID-19 Current Visit: Yes Status: Acute Plan to address problem: Covid positive On IV steroids No remdesivir (5) Malnutrition Current Visit: Yes Status: Deleted (6) Malnutrition Current Visit: Yes Status: Chronic Qualifiers: Protein-calorie malnutrition severity: moderate Qualified Code(s): E44.0 - Moderate protein-calorie malnutrition Plan to address problem: On dietary supplements (7) DVT prophylaxis Current Visit: Yes Status: Acute Plan to address problem: On Lovenox 40 mg subcu daily and GI prophylaxis Subjective Date of service: 01/27/21 Principal diagnosis: Ac hypoxemic resp failure; COVID-19; Pneumonia; Sepsis; Morbid obesity Interval history: History Interval history: Patient is not acute respiratory failure on continuous BiPAP With low saturations intermittently Patient has severe Covid pneumonia, elevated D-dimers on empiric full dose anticoagulation Not a candidate for CTA chest as patient is unstable Patient is critically ill in severe distress Patient has low saturations even on continuous BiPAP May need intubation and mechanical ventilation Vital signs noted 01/27/2021 Patient intubated Sedated On vent protocol Objective - Exam Narrative Exam: Patient intubated - Constitutional Vitals: Vital Signs - 12hr 01/26/21 01/26/21 01/26/21 20:30 20:40 20:50 Temperature Pulse Rate 71 74 72 Pulse Rate [ From Monitor] Respiratory 28 H 28 H 28 H Rate Blood Pressure 123/42 123/42 122/42 O2 Sat by Pulse 95 97 97 Oximetry 01/26/21 01/26/21 01/26/21 21:00 21:10 21:20 Temperature Pulse Rate 79 79 76 Pulse Rate [ From Monitor] Respiratory 22 14 21 Rate Blood Pressure 122/42 67/27 64/31 O2 Sat by Pulse 95 96 Oximetry 01/26/21 01/26/21 01/26/21 21:30 21:34 21:40 Temperature Pulse Rate 77 62 68 Pulse Rate [ From Monitor] Respiratory 26 H 28 H 31 H Rate Blood Pressure 72/30 85/39 129/47 O2 Sat by Pulse 94 97 96 Oximetry 01/26/21 01/26/21 01/26/21 21:50 22:00 22:10 Temperature Pulse Rate 69 70 71 Pulse Rate [ From Monitor] Respiratory 30 H 30 H 28 H Rate Blood Pressure 126/42 125/44 125/44 O2 Sat by Pulse 98 95 98 Oximetry 01/26/21 01/26/21 01/26/21 22:20 22:30 22:40 Temperature Pulse Rate 71 72 71 Pulse Rate [ From Monitor] Respiratory 30 H 30 H 30 H Rate Blood Pressure 126/40 126/40 O2 Sat by Pulse 97 94 97 Oximetry 01/26/21 01/26/21 01/26/21 22:50 23:00 23:10 Temperature Pulse Rate 76 79 81 Pulse Rate [ From Monitor] Respiratory 28 H 30 H 22 Rate Blood Pressure 121/38 117/46 117/46 O2 Sat by Pulse 97 93 96 Oximetry 01/26/21 01/26/21 01/26/21 23:15 23:20 23:29 Temperature 101.1 F H Pulse Rate 82 82 Pulse Rate [ 83 From Monitor] Respiratory 31 H 31 H Rate Blood Pressure 126/42 O2 Sat by Pulse 97 97 Oximetry 01/26/21 01/26/21 01/26/21 23:30 23:40 23:50 Temperature Pulse Rate 81 79 79 Pulse Rate [ From Monitor] Respiratory 30 H 30 H 30 H Rate Blood Pressure 124/41 121/38 118/45 O2 Sat by Pulse 94 97 97 Oximetry 01/27/21 01/27/21 01/27/21 00:00 00:08 00:10 Temperature Pulse Rate 77 80 84 Pulse Rate [ From Monitor] Respiratory 27 H 30 H Rate Blood Pressure 127/42 127/42 127/42 O2 Sat by Pulse 94 97 96 Oximetry 01/27/21 01/27/21 01/27/21 00:20 00:30 03:30 Temperature 100.4 F H Pulse Rate 87 82 Pulse Rate [ From Monitor] Respiratory 23 28 H Rate Blood Pressure 123/44 126/37 O2 Sat by Pulse 96 94 Oximetry 01/27/21 01/27/21 01/27/21 03:39 04:15 05:13 Temperature Pulse Rate 68 Pulse Rate [ From Monitor] Respiratory Rate Blood Pressure 114/43 O2 Sat by Pulse 97 98 96 Oximetry 01/27/21 07:20 Temperature 99.2 F Pulse Rate Pulse Rate [ From Monitor] Respiratory Rate Blood Pressure O2 Sat by Pulse Oximetry General appearance: Present: no acute distress, well-nourished - EENT Eyes: PERRL, EOM intact ENT: hearing intact, clear oral mucosa Ears: bilateral: normal - Neck Neck: supple, normal ROM - Respiratory Respiratory effort: normal Respiratory: bilateral: CTA - Breasts Breasts: normal - Cardiovascular Heart rate: 78 Rhythm: regular Heart Sounds: Present: S1 & S2. Absent: gallop, rub Extremities: pulses intact, No edema, normal color, Full ROM - Gastrointestinal General gastrointestinal: Present: soft, non-tender, non-distended, normal bowel sounds - Genitourinary Male genitourinary: normal - Integumentary Integumentary: clear, warm, dry - Musculoskeletal Musculoskeletal: 1, strength equal bilaterally - Neurologic Neurologic: moves all extremities - Psychiatric Psychiatric: memory intact, appropriate mood/affect, intact judgment & insight - Labs CBC & Chem 7: 01/30/21 05:00 01/30/21 05:00 Labs: Abnormal lab results 01/26/21 01/26/21 01/26/21 Range/Units 07:32 07:39 08:30 ABG pH 7.287 L (7.350-7.450) pH Units POC ABG pCO2 (32.0-48.0) mmHg POC ABG pO2 (83-108) mmHg ABG pO2 124.5 H (80.0-90.0) mm Hg ABG Base Excess -5.0 L (-2.0-3.0) mmol/L ABG Sodium (136.0-145.0) mmol/L ABG Potassium (3.40-4.50) mmol/L ABG Chloride (98-107) mmol/L ABG Glucose (65-95) mg/dL Sodium (137-145) mmol/L Potassium (3.6-5.0) mmol/L Chloride (98-107) mmol/L Carbon Dioxide (22-30) mmol/L BUN (9-20) mg/dL Creatinine (0.8-1.3) mg/dL Glucose (75-100) mg/dL POC Glucose (70-105) mg/dL Calcium (8.4-10.2) mg/dL Ferritin 1921.0 H (30.0-300.0) ng/mL Lactate Dehydrogenase 1559 H (91-180) units/L Arterial Blood Glucose (65-95) mg/dL Arterial Blood Ionized Calcium (4.6-5.3) mg/dL 01/26/21 01/26/21 01/26/21 Range/Units 17:55 20:39 23:14 ABG pH (7.350-7.450) pH Units POC ABG pCO2 (32.0-48.0) mmHg POC ABG pO2 (83-108) mmHg ABG pO2 (80.0-90.0) mm Hg ABG Base Excess (-2.0-3.0) mmol/L ABG Sodium (136.0-145.0) mmol/L ABG Potassium (3.40-4.50) mmol/L ABG Chloride (98-107) mmol/L ABG Glucose (65-95) mg/dL Sodium 152 H (137-145) mmol/L Potassium 6.0 H D (3.6-5.0) mmol/L Chloride 117.2 H (98-107) mmol/L Carbon Dioxide 15 L (22-30) mmol/L BUN 80 H (9-20) mg/dL Creatinine 5.6 H D (0.8-1.3) mg/dL Glucose 156 H (75-100) mg/dL POC Glucose 141 H 148 H (70-105) mg/dL Calcium 7.4 L (8.4-10.2) mg/dL Ferritin (30.0-300.0) ng/mL Lactate Dehydrogenase (91-180) units/L Arterial Blood Glucose (65-95) mg/dL Arterial Blood Ionized Calcium (4.6-5.3) mg/dL 01/27/21 01/27/21 01/27/21 Range/Units 02:55 05:00 05:14 ABG pH 7.215 L (7.350-7.450) pH Units POC ABG pCO2 48.9 H (32.0-48.0) mmHg POC ABG pO2 143.3 H (83-108) mmHg ABG pO2 (80.0-90.0) mm Hg ABG Base Excess (-2.0-3.0) mmol/L ABG Sodium 150.0 H (136.0-145.0) mmol/L ABG Potassium 5.0 H (3.40-4.50) mmol/L ABG Chloride 118.0 H (98-107) mmol/L ABG Glucose 180 H (65-95) mg/dL Sodium 154 H (137-145) mmol/L Potassium 5.3 H (3.6-5.0) mmol/L Chloride 117.2 H (98-107) mmol/L Carbon Dioxide 19 L (22-30) mmol/L BUN 92 H (9-20) mg/dL Creatinine 6.4 H (0.8-1.3) mg/dL Glucose 175 H (75-100) mg/dL POC Glucose 159 H (70-105) mg/dL Calcium 7.9 L (8.4-10.2) mg/dL Ferritin (30.0-300.0) ng/mL Lactate Dehydrogenase (91-180) units/L Arterial Blood Glucose 180 H (65-95) mg/dL Arterial Blood Ionized Calcium 4.5 L (4.6-5.3) mg/dL HEART Score - HEART Score Age: 45-65 Risk factors: 1-2 risk factors Troponin: < normal limit - Critical Actions Critical Actions: 0-3 pts:0.9-1.7%risk of adverse cardiac event.Candidate for discharge
[2021-01-27] MEDS: MIDAZOLAM 100 MG in SODIUM CHLORIDE 0.9% 80 ML IV SCH (09:14)
[2021-01-27] MEDS ORDERED: SODIUM CHLORIDE 0.9% 100 ML IV PRN (09:35)
[2021-01-27] MEDS ORDERED: ALBUMIN HUMAN 25% (25 GM/100 ML) INJ IV PRN (09:35)
[2021-01-27] MEDS: SENNOSIDES/DOCUSATE SODIUM 8.6/50 MG TAB FEEDTUBE SCH ×2 (10:14→21:38)
--- NOTE | 2021-01-27 10:49 | Progress Note ---
Assessment and Plan Cultures: SARS CoV2 PCR: positive 01/22/2021 blood culture: No growth 01/25/2021 endotracheal aspirate culture: In process A/P: 55/M with obesity, admitted with: #Shock: likely secondary to severe COVID-19. #Bilateral pneumonia: Secondary to COVID-19. Very high d-dimer. #Acute hypoxic respiratory failure: Failed BiPAP. Requiring mechanical ventilation. #SEDRICK: creatinine elevated. #Morbid obesity Recs: -Actemra administered 01/26/2021 -continue IV/PO Dexamethasone -Renal function has continued to worsen. Remdesivir discontinued. -complete empiric abx x 5 days -prophylactic anticoagulation based on d-dimer per hospital protocol. DVT scan negative. -trend ferritin, LDH, d-dimer, CRP every 2-3 days for risk stratification and to assess disease progression -extremely poor prognosis Misael Dudley MD, FACP [facility] O: [phone] F: [phone] Subjective Date of service: 01/27/21 Principal diagnosis: Ac hypoxemic resp failure; COVID-19; Pneumonia; Sepsis; Morbid obesity Interval history: Low-grade fevers. Febrile yesterday. Remains on the vent. Requiring pressors. Received Tocilizumab yesterday. Renal function has continued to worsen. Objective - Exam Narrative Exam: Physical Exam (reviewed in chart to minimize risk of transmission) Constitutional: deferred Head, Ears, Nose: deferred Eyes: deferred Neck: deferred Oral: deferred Cardiovascular: deferred Respiratory: deferred GI: deferred Musculoskeletal: deferred Skin: deferred Hem/Lymphatic: deferred Psych: deferred Neurological: deferred - Constitutional Vitals: Vital Signs Temp Pulse Resp BP Pulse Ox 99.2 F 66 28 H 123/50 97 01/27/21 07:20 01/27/21 08:00 01/27/21 00:30 01/27/21 08:00 01/27/21 08:00 Temperature -Last 24 Hours Temperature 99.2 F Temperature 100.4 F Temperature 101.1 F Temperature 101.3 F - Labs CBC & Chem 7: 01/23/21 05:29 01/27/21 05:00 Labs: Abnormal lab results 01/26/21 01/26/21 01/26/21 Range/Units 17:55 20:39 23:14 ABG pH (7.320-7.450) POC ABG pCO2 (32.0-48.0) mmHg POC ABG pO2 (83-108) mmHg ABG Sodium (136.0-145.0) mmol/L ABG Potassium (3.40-4.50) mmol/L ABG Chloride (98-107) mmol/L ABG Glucose (65-95) mg/dL Sodium 152 H (137-145) mmol/L Potassium 6.0 H D (3.6-5.0) mmol/L Chloride 117.2 H (98-107) mmol/L Carbon Dioxide 15 L (22-30) mmol/L BUN 80 H (9-20) mg/dL Creatinine 5.6 H D (0.8-1.3) mg/dL Glucose 156 H (75-100) mg/dL POC Glucose 141 H 148 H (70-105) mg/dL Calcium 7.4 L (8.4-10.2) mg/dL Arterial Blood Glucose (65-95) mg/dL Arterial Blood Ionized Calcium (4.6-5.3) mg/dL 01/27/21 01/27/21 01/27/21 Range/Units 02:55 05:00 05:14 ABG pH 7.215 L (7.320-7.450) POC ABG pCO2 48.9 H (32.0-48.0) mmHg POC ABG pO2 143.3 H (83-108) mmHg ABG Sodium 150.0 H (136.0-145.0) mmol/L ABG Potassium 5.0 H (3.40-4.50) mmol/L ABG Chloride 118.0 H (98-107) mmol/L ABG Glucose 180 H (65-95) mg/dL Sodium 154 H (137-145) mmol/L Potassium 5.3 H (3.6-5.0) mmol/L Chloride 117.2 H (98-107) mmol/L Carbon Dioxide 19 L (22-30) mmol/L BUN 92 H (9-20) mg/dL Creatinine 6.4 H (0.8-1.3) mg/dL Glucose 175 H (75-100) mg/dL POC Glucose 159 H (70-105) mg/dL Calcium 7.9 L (8.4-10.2) mg/dL Arterial Blood Glucose 180 H (65-95) mg/dL Arterial Blood Ionized Calcium 4.5 L (4.6-5.3) mg/dL
[2021-01-27] MEDS: FAMOTIDINE 20 MG/2 ML INJ IV SCH (11:00)
[2021-01-27] MEDS: cefTRIAXone/NS 2 GM/100 ML 2 GM/100 ML BAG IV SCH (11:00)
[2021-01-27] MEDS: AZITHROMYCIN/NS 500 MG/250 ML 500 MG/250 ML BAG IV SCH (11:00)
[2021-01-27] MEDS ORDERED: LIPASE 10,500/PROTEASE 25,000/AMYLASE 43,750 (UNITS) DR CAP FEEDTUBE PRN (11:37)
[2021-01-27] MEDS ORDERED: SODIUM BICARBONATE 325 MG TAB FEEDTUBE PRN (11:37)
[2021-01-27] MEDS ORDERED: SIMPLE SYRUP 15 ML FEEDTUBE PRN ×2 (11:37)
--- NOTE | 2021-01-27 11:39 | XRay Report ---
ABDOMEN 1 VIEW(S) 01/27/2021 11:08 AM INDICATION / CLINICAL INFORMATION: NGT placement verification. COMPARISON: None available. FINDINGS: The tip of an esophagogastric tube projects over the fundus of the stomach. Patient may benefit from advancing 5 to 7 cm for more optimal positioning. Signer Name: Des Perdomo MD Signed: 01/27/2021 11:34 AM Workstation Name: [id number]
--- NOTE | 2021-01-27 12:14 | Progress Note ---
Assessment and Plan Acute hypoxemic respiratory failure COVID-19 infection Multifocal pneumonia Hypernatremia Sepsis Morbid obesity with BMI of 40.0-44.9, adult - s/p Trialysis catheter - for HD/UF - nephrology input apprciated - wean Vasopressors for target MAP > 65 mmHg - continue care as below otherwise; - sedation for target RASS -2 to -3 acutely - Daily SAT and SBT assessment as tolerated - continue to wean supplemental oxygen for target O2 sat's > 92% acutely - VAP bundle addressed - continue lung protective strategies - continue bronchodilators with pulmonary hygiene per RT - wean per pulmonary driven protocols otherwise - avoid nephrotoxins, renally dose all medications - continue to avoid benzodiazepine's, reduce the possibility of delirium - complete AB's per ID rec's - prn analgesia per CPOT score - Maintenance of sleep-wake cycle, avoid delirium - enteral nutritional support at goal rate as tolerated - G.I. & VTE prophylaxis - PT/OT/ROM exercises - continue mobility protocols for pressure ulcer prophylaxis - Monitor hemodynamics closely - continue other care per attending / other consultants - discharge planning ongoing concurrently COVID SPECIFIC INTERVENTIONS - Remdesivir as per ID/Pulmonary developed protocols (receiving) - continue systemic steroids for severe COVID-19 infection (Dexamethasone) - follow repeat COVID tests results - zinc and vitamin C supplementation - Monitor inflammatory markers per facility protocol - ferritin, Ddimer, CRP - therapeutic anticoagulation per system Protocol based on d-dimer and clinical considerations (VTE prophylaxis doses now) - Continue contact and airborne isolation .... Re-evaluate in am & prn CONDITION: CRITICAL PROGNOSIS: GUARDED CODE STATUS: FULL CODE The high probability of a clinically significant, sudden or life-threatening deterioration of the [respiratory, cardiovascular & neurologic] system(s) required my full and direct attention, intervention and personal management. The aggregate critical care time was [40] minutes without overlap. Time includes spent on; [x] Data Review and interpretation [x] Patient assessment and monitoring of vital signs [x] Documentation [x] Medication orders and management Subjective Date of service: 01/27/21 Principal diagnosis: Ac hypoxemic resp failure; COVID-19; Pneumonia; Sepsis; Morbid obesity Interval history: Patient is seen today for: Acute hypoxemic respiratory failure; COVID- 19infection; Multifocal pneumonia; Hypernatremia; Sepsis; Morbid obesity Seen and examined at bedside; 24hour events reviewed; nursing and respiratory ca re staff consulted; no adverse overnight events reported to me; resting in bed; remains on MVS; azotemia is worse and dialysis has been recommended; sedated; no emesis or overt aspiration and no gross bleeding Objective Vital Signs - 12hr 01/27/21 01/27/21 01/27/21 00:20 00:30 03:20 Temperature Pulse Rate 87 82 71 Respiratory 23 28 H 30 H Rate Blood Pressure 123/44 126/37 114/44 O2 Sat by Pulse 96 94 97 Oximetry 01/27/21 01/27/21 01/27/21 03:30 03:39 03:40 Temperature 100.4 F H Pulse Rate 70 68 69 Respiratory 30 H 30 H Rate Blood Pressure 114/43 114/43 116/40 O2 Sat by Pulse 95 97 97 Oximetry 01/27/21 01/27/21 01/27/21 03:50 04:00 04:10 Temperature Pulse Rate 68 69 70 Respiratory 30 H 30 H 30 H Rate Blood Pressure 127/50 121/46 114/43 O2 Sat by Pulse 98 93 97 Oximetry 01/27/21 01/27/21 01/27/21 04:15 04:20 04:30 Temperature Pulse Rate 71 72 Respiratory 30 H 30 H Rate Blood Pressure 121/50 121/48 O2 Sat by Pulse 98 97 93 Oximetry 01/27/21 01/27/21 01/27/21 04:40 04:50 05:00 Temperature Pulse Rate 70 73 66 Respiratory 30 H 30 H 30 H Rate Blood Pressure 121/48 82/29 102/48 O2 Sat by Pulse 97 94 97 Oximetry 01/27/21 01/27/21 01/27/21 05:10 05:13 05:20 Temperature Pulse Rate 66 69 Respiratory 30 H 30 H Rate Blood Pressure 120/54 122/49 O2 Sat by Pulse 96 96 96 Oximetry 01/27/21 01/27/21 01/27/21 05:30 05:40 05:50 Temperature Pulse Rate 73 77 76 Respiratory 30 H 30 H 30 H Rate Blood Pressure 125/54 125/54 131/54 O2 Sat by Pulse 90 93 94 Oximetry 01/27/21 01/27/21 01/27/21 06:00 06:10 06:20 Temperature Pulse Rate 77 79 77 Respiratory 30 H 30 H 30 H Rate Blood Pressure 127/53 127/53 128/54 O2 Sat by Pulse 88 94 95 Oximetry 01/27/21 01/27/21 01/27/21 06:30 06:40 06:50 Temperature Pulse Rate 77 76 77 Respiratory 30 H 28 H 30 H Rate Blood Pressure 127/52 127/52 131/52 O2 Sat by Pulse 91 93 95 Oximetry 01/27/21 01/27/21 01/27/21 07:00 07:10 07:20 Temperature 99.2 F Pulse Rate 75 77 80 Respiratory 30 H 30 H 30 H Rate Blood Pressure 128/52 128/52 123/51 O2 Sat by Pulse 91 95 94 Oximetry 01/27/21 01/27/21 01/27/21 07:30 07:40 07:50 Temperature Pulse Rate 78 78 79 Respiratory 30 H 30 H 30 H Rate Blood Pressure 127/58 127/58 126/54 O2 Sat by Pulse 90 94 95 Oximetry 01/27/21 01/27/21 01/27/21 08:00 08:10 08:20 Temperature Pulse Rate 76 75 76 Respiratory 30 H 30 H 30 H Rate Blood Pressure 128/54 128/54 128/53 O2 Sat by Pulse 88 95 95 Oximetry 01/27/21 01/27/21 01/27/21 08:30 08:40 08:50 Temperature Pulse Rate 75 76 70 Respiratory 30 H 30 H 30 H Rate Blood Pressure 127/52 127/52 128/54 O2 Sat by Pulse 92 95 95 Oximetry 01/27/21 01/27/21 01/27/21 09:00 09:10 09:20 Temperature Pulse Rate 73 71 60 Respiratory 30 H 30 H 30 H Rate Blood Pressure 128/54 66/28 128/54 O2 Sat by Pulse 93 95 98 Oximetry 01/27/21 01/27/21 01/27/21 09:30 09:40 09:50 Temperature Pulse Rate 63 65 65 Respiratory 30 H 30 H 30 H Rate Blood Pressure 125/52 125/52 123/50 O2 Sat by Pulse 93 97 97 Oximetry 01/27/21 01/27/21 01/27/21 10:00 10:10 10:20 Temperature Pulse Rate 72 70 69 Respiratory 30 H 30 H 30 H Rate Blood Pressure 124/53 124/53 125/51 O2 Sat by Pulse 92 97 97 Oximetry 01/27/21 01/27/21 01/27/21 10:30 10:40 10:50 Temperature Pulse Rate 71 70 70 Respiratory 30 H 30 H 30 H Rate Blood Pressure 122/53 122/53 121/53 O2 Sat by Pulse 93 97 97 Oximetry 01/27/21 01/27/21 01/27/21 11:00 11:10 11:20 Temperature Pulse Rate 70 73 69 Respiratory 30 H 18 26 H Rate Blood Pressure 126/51 126/51 134/51 O2 Sat by Pulse 93 98 98 Oximetry 01/27/21 01/27/21 11:30 12:06 Temperature 98.2 F Pulse Rate 74 Respiratory 30 H Rate Blood Pressure 112/39 O2 Sat by Pulse 92 Oximetry Constitutional: no acute distress, other (middle aged obese male with mildly increased respiratory effort at rest on MVS) Eyes: non-icteric ENT: oropharynx moist, other (ETT 24 cm BRE) Neck: supple, no lymphadenopathy, no JVD, other (large circumference) Effort: mildly labored Ascultation: Bilateral: diminished breath sounds, rhonchi Percussion: Bilateral: not dull Cardiovascular: regular rate and rhythm Gastrointestinal: normoactive bowel sounds, soft, non-tender, non-distended (protuberant) Integumentary: normal Extremities: no cyanosis, no edema, pink and warm, pulses normal Neurologic: normal mental status, pupils equal and round, unable to assess (sedated) Psychiatric: other (unable top assess re: AMS) CBC and BMP: 01/23/21 05:29 01/27/21 05:00 ABG, PT/INR, D-dimer: ABG ABG pH 7.215 (7.320-7.450) L 01/27/21 02:55 POC ABG pCO2 48.9 mmHg (32.0-48.0) H 01/27/21 02:55 ABG pCO2 46.6 mm Hg 01/26/21 08:30 POC ABG pO2 143.3 mmHg (83-108) H 01/27/21 02:55 ABG pO2 124.5 mm Hg (80.0-90.0) H 01/26/21 08:30 POC ABG HCO3 19.3 01/27/21 02:55 ABG O2 Saturation 98.9 (0-100) 01/27/21 02:55 PT/INR, D-dimer D-Dimer > 31476 ng/mlDDU (0-234) H 01/25/21 06:22 Abnormal lab findings: Abnormal Labs 01/22/21 01/22/21 01/22/21 11:06 11:06 11:06 WBC RBC Hgb Hct Lymph % (Auto) Lymph # (Auto) Fisher # (Auto) Seg Neutrophils % Seg Neuts % (Manual) Lymphocytes % (Manual) Nucleated RBC % Seg Neutrophils # Seg Neutrophils # Man Lymphocytes # (Manual) Monocytes # (Manual) D-Dimer 2625.11 H ABG pH POC ABG pCO2 POC ABG pO2 ABG pO2 ABG Base Excess ABG Oxyhemoglobin ABG Sodium ABG Potassium ABG Chloride ABG Glucose Carboxyhemoglobin Sodium Potassium Chloride Carbon Dioxide BUN Creatinine Glucose 130 H POC Glucose Hemoglobin A1c Lactic Acid Calcium Ferritin 557.5 H Total Bilirubin AST Alkaline Phosphatase Lactate Dehydrogenase 799 H C-Reactive Protein 3.30 H Albumin Arterial Blood Glucose Arterial Blood Ionized Calcium Coronavirus (PCR) 01/22/21 01/22/21 01/22/21 11:06 11:06 11:06 WBC 19.2 H RBC 5.63 H Hgb 15.8 H Hct 49.0 H Lymph % (Auto) Lymph # (Auto) Fisher # (Auto) Seg Neutrophils % Seg Neuts % (Manual) 92.0 H Lymphocytes % (Manual) 1.0 L Nucleated RBC % 1.0 H Seg Neutrophils # Seg Neutrophils # Man 17.7 H Lymphocytes # (Manual) 0.2 L Monocytes # (Manual) 1.0 H D-Dimer ABG pH POC ABG pCO2 POC ABG pO2 ABG pO2 ABG Base Excess ABG Oxyhemoglobin ABG Sodium ABG Potassium ABG Chloride ABG Glucose Carboxyhemoglobin Sodium Potassium 3.3 L Chloride Carbon Dioxide 20 L BUN 32 H Creatinine Glucose 130 H POC Glucose Hemoglobin A1c Lactic Acid 4.20 H* Calcium Ferritin Total Bilirubin AST Alkaline Phosphatase Lactate Dehydrogenase C-Reactive Protein Albumin 2.9 L Arterial Blood Glucose Arterial Blood Ionized Calcium Coronavirus (PCR) 01/22/21 01/22/21 01/23/21 11:06 12:03 05:29 WBC 19.0 H RBC 5.24 H Hgb 15.3 H Hct 46.0 H Lymph % (Auto) 4.4 L Lymph # (Auto) 0.8 L Fisher # (Auto) 1.2 H Seg Neutrophils % 89.1 H Seg Neuts % (Manual) Lymphocytes % (Manual) Nucleated RBC % Seg Neutrophils # 16.9 H Seg Neutrophils # Man Lymphocytes # (Manual) Monocytes # (Manual) D-Dimer ABG pH POC ABG pCO2 30.7 L POC ABG pO2 61.4 L ABG pO2 ABG Base Excess ABG Oxyhemoglobin 90.5 L ABG Sodium ABG Potassium ABG Chloride ABG Glucose Carboxyhemoglobin 1.7 H Sodium Potassium Chloride Carbon Dioxide BUN Creatinine Glucose POC Glucose Hemoglobin A1c 6.2 H Lactic Acid Calcium Ferritin Total Bilirubin AST Alkaline Phosphatase Lactate Dehydrogenase C-Reactive Protein Albumin Arterial Blood Glucose Arterial Blood Ionized Calcium Coronavirus (PCR) 01/23/21 01/23/21 01/23/21 05:29 09:00 16:55 WBC RBC Hgb Hct Lymph % (Auto) Lymph # (Auto) Fisher # (Auto) Seg Neutrophils % Seg Neuts % (Manual) Lymphocytes % (Manual) Nucleated RBC % Seg Neutrophils # Seg Neutrophils # Man Lymphocytes # (Manual) Monocytes # (Manual) D-Dimer ABG pH POC ABG pCO2 POC ABG pO2 ABG pO2 ABG Base Excess ABG Oxyhemoglobin ABG Sodium ABG Potassium ABG Chloride ABG Glucose Carboxyhemoglobin Sodium Potassium 3.5 L Chloride Carbon Dioxide BUN 29 H 27 H Creatinine Glucose 132 H 103 H POC Glucose Hemoglobin A1c Lactic Acid Calcium Ferritin Total Bilirubin AST Alkaline Phosphatase Lactate Dehydrogenase C-Reactive Protein Albumin 2.9 L 2.9 L Arterial Blood Glucose Arterial Blood Ionized Calcium Coronavirus (PCR) Positive A 01/24/21 01/24/21 01/24/21 05:50 20:20 20:20 WBC RBC Hgb Hct Lymph % (Auto) Lymph # (Auto) Fisher # (Auto) Seg Neutrophils % Seg Neuts % (Manual) Lymphocytes % (Manual) Nucleated RBC % Seg Neutrophils # Seg Neutrophils # Man Lymphocytes # (Manual) Monocytes # (Manual) D-Dimer ABG pH POC ABG pCO2 POC ABG pO2 ABG pO2 ABG Base Excess ABG Oxyhemoglobin ABG Sodium ABG Potassium ABG Chloride ABG Glucose Carboxyhemoglobin Sodium 148 H Potassium 5.3 H D Chloride 109.3 H Carbon Dioxide BUN 26 H Creatinine 0.7 L Glucose 130 H POC Glucose Hemoglobin A1c Lactic Acid Calcium Ferritin 1031.0 H Total Bilirubin AST 45 H Alkaline Phosphatase Lactate Dehydrogenase 1511 H C-Reactive Protein 12.00 H Albumin 2.9 L Arterial Blood Glucose Arterial Blood Ionized Calcium Coronavirus (PCR) 08/18/21 08/19/21 08/19/21 20:20 06:22 06:22 WBC RBC Hgb Hct Lymph % (Auto) Lymph # (Auto) Fisher # (Auto) Seg Neutrophils % Seg Neuts % (Manual) Lymphocytes % (Manual) Nucleated RBC % Seg Neutrophils # Seg Neutrophils # Man Lymphocytes # (Manual) Monocytes # (Manual) D-Dimer > 09046 H > 06139 H ABG pH POC ABG pCO2 POC ABG pO2 ABG pO2 ABG Base Excess ABG Oxyhemoglobin ABG Sodium ABG Potassium ABG Chloride ABG Glucose Carboxyhemoglobin Sodium 153 H Potassium 3.4 L D Chloride 116.1 H Carbon Dioxide 21 L BUN 27 H Creatinine Glucose 133 H POC Glucose Hemoglobin A1c Lactic Acid Calcium Ferritin Total Bilirubin 1.30 H AST 50 H Alkaline Phosphatase 159 H Lactate Dehydrogenase C-Reactive Protein Albumin 2.9 L Arterial Blood Glucose Arterial Blood Ionized Calcium Coronavirus (PCR) 01/25/21 01/25/21 01/25/21 06:22 09:35 11:25 WBC RBC Hgb Hct Lymph % (Auto) Lymph # (Auto) Fisher # (Auto) Seg Neutrophils % Seg Neuts % (Manual) Lymphocytes % (Manual) Nucleated RBC % Seg Neutrophils # Seg Neutrophils # Man Lymphocytes # (Manual) Monocytes # (Manual) D-Dimer ABG pH 7.453 H 7.228 L POC ABG pCO2 60.0 H POC ABG pO2 44.9 L 111.7 H ABG pO2 ABG Base Excess ABG Oxyhemoglobin 81.4 L ABG Sodium 153.1 H 150.9 H ABG Potassium 3.3 L ABG Chloride 116.0 H 117.0 H ABG Glucose 151 H 155 H Carboxyhemoglobin Sodium Potassium Chloride Carbon Dioxide BUN Creatinine Glucose POC Glucose Hemoglobin A1c Lactic Acid Calcium Ferritin Total Bilirubin AST Alkaline Phosphatase Lactate Dehydrogenase C-Reactive Protein 16.80 H Albumin Arterial Blood Glucose 151 H 155 H Arterial Blood Ionized Calcium Coronavirus (PCR) 01/25/21 01/26/21 01/26/21 21:00 07:32 07:39 WBC RBC Hgb Hct Lymph % (Auto) Lymph # (Auto) Fisher # (Auto) Seg Neutrophils % Seg Neuts % (Manual) Lymphocytes % (Manual) Nucleated RBC % Seg Neutrophils # Seg Neutrophils # Man Lymphocytes # (Manual) Monocytes # (Manual) D-Dimer ABG pH POC ABG pCO2 POC ABG pO2 68.5 L ABG pO2 ABG Base Excess ABG Oxyhemoglobin 91.3 L ABG Sodium 151.9 H ABG Potassium ABG Chloride 117.0 H ABG Glucose 140 H Carboxyhemoglobin Sodium 151 H Potassium Chloride 116.7 H Carbon Dioxide 20 L BUN 59 H Creatinine 3.4 H D Glucose 121 H POC Glucose Hemoglobin A1c Lactic Acid Calcium Ferritin 1921.0 H Total Bilirubin AST 45 H Alkaline Phosphatase 137 H Lactate Dehydrogenase 1559 H C-Reactive Protein 20.90 H Albumin 2.3 L Arterial Blood Glucose 140 H Arterial Blood Ionized Calcium Coronavirus (PCR) 01/26/21 01/26/21 01/26/21 08:30 17:55 20:39 WBC RBC Hgb Hct Lymph % (Auto) Lymph # (Auto) Fisher # (Auto) Seg Neutrophils % Seg Neuts % (Manual) Lymphocytes % (Manual) Nucleated RBC % Seg Neutrophils # Seg Neutrophils # Man Lymphocytes # (Manual) Monocytes # (Manual) D-Dimer ABG pH 7.287 L POC ABG pCO2 POC ABG pO2 ABG pO2 124.5 H ABG Base Excess -5.0 L ABG Oxyhemoglobin ABG Sodium ABG Potassium ABG Chloride ABG Glucose Carboxyhemoglobin Sodium 152 H Potassium 6.0 H D Chloride 117.2 H Carbon Dioxide 15 L BUN 80 H Creatinine 5.6 H D Glucose 156 H POC Glucose 141 H Hemoglobin A1c Lactic Acid Calcium 7.4 L Ferritin Total Bilirubin AST Alkaline Phosphatase Lactate Dehydrogenase C-Reactive Protein Albumin Arterial Blood Glucose Arterial Blood Ionized Calcium Coronavirus (PCR) 01/26/21 01/27/21 01/27/21 23:14 02:55 05:00 WBC RBC Hgb Hct Lymph % (Auto) Lymph # (Auto) Fisher # (Auto) Seg Neutrophils % Seg Neuts % (Manual) Lymphocytes % (Manual) Nucleated RBC % Seg Neutrophils # Seg Neutrophils # Man Lymphocytes # (Manual) Monocytes # (Manual) D-Dimer ABG pH 7.215 L POC ABG pCO2 48.9 H POC ABG pO2 143.3 H ABG pO2 ABG Base Excess ABG Oxyhemoglobin ABG Sodium 150.0 H ABG Potassium 5.0 H ABG Chloride 118.0 H ABG Glucose 180 H Carboxyhemoglobin Sodium 154 H Potassium 5.3 H Chloride 117.2 H Carbon Dioxide 19 L BUN 92 H Creatinine 6.4 H Glucose 175 H POC Glucose 148 H Hemoglobin A1c Lactic Acid Calcium 7.9 L Ferritin Total Bilirubin AST Alkaline Phosphatase Lactate Dehydrogenase C-Reactive Protein Albumin Arterial Blood Glucose 180 H Arterial Blood Ionized Calcium 4.5 L Coronavirus (PCR) 01/27/21 01/27/21 05:14 11:42 WBC RBC Hgb Hct Lymph % (Auto) Lymph # (Auto) Fisher # (Auto) Seg Neutrophils % Seg Neuts % (Manual) Lymphocytes % (Manual) Nucleated RBC % Seg Neutrophils # Seg Neutrophils # Man Lymphocytes # (Manual) Monocytes # (Manual) D-Dimer ABG pH POC ABG pCO2 POC ABG pO2 ABG pO2 ABG Base Excess ABG Oxyhemoglobin ABG Sodium ABG Potassium ABG Chloride ABG Glucose Carboxyhemoglobin Sodium Potassium Chloride Carbon Dioxide BUN Creatinine Glucose POC Glucose 159 H 171 H Hemoglobin A1c Lactic Acid Calcium Ferritin Total Bilirubin AST Alkaline Phosphatase Lactate Dehydrogenase C-Reactive Protein Albumin Arterial Blood Glucose Arterial Blood Ionized Calcium Coronavirus (PCR) Chest x-ray: image reviewed (LSCVL Trialysis catheter in good position; no PTX) Allied health notes reviewed: nursing
[2021-01-27 13:39] LABS: Hepatitis C Virus Antibody Non-Reactive (NonReactive)
[2021-01-27 14:35] LABS: Hepatitis B Surface Antigen Nonreactive (Negative)
--- NOTE | 2021-01-27 15:13 | Procedure Note ---
Date of procedure: 01/27/21 Pre-op diagnosis: SEDRICK Post-op diagnosis: same Procedure: Left Subclavian trialysis catheter placement (Full dictation # [id number]) Please see dictated notes for full details
--- NOTE | 2021-01-27 15:13 | XRay Report ---
CHEST 1 VIEW 1436 INDICATION / CLINICAL INFORMATION: left chest vascath placement verification COMPARISON: 01/26/2021 FINDINGS: SUPPORT DEVICES: A multilumen left subclavian central line has been placed with tips appearing to be in the right atrium. Withdrawal by approximately 6 cm would be needed for placement in the area of th e atrial caval junction. Previous right central line is unchanged and endotracheal tube appears uncha nged. HEART / MEDIASTINUM: Stable LUNGS / PLEURA: Bilateral infiltrates and congestive changes continue without significant change. No pneumothorax. ADDITIONAL FINDINGS: No significant additional findings. Signer Name: Jack Kearney MD Signed: 01/27/2021 3:08 PM Workstation Name: [id number]
--- NOTE | 2021-01-27 15:32 | Event Note ---
Date: 01/27/21 discussed with customer counter representative who spoke with dialysis nurse in my presence and gave authorization to proceed with dialysis. Patients had also been earlier informed of the need for dialysis and she gave consent for the vascath earlier
--- NOTE | 2021-01-27 15:39 | Operative Report ---
DATE OF SURGERY: 01/27/2021 PROCEDURE: Left subclavian Vas Trialysis catheter placement. INDICATION: Acute kidney injury requiring dialysis and ultrafiltration. CONSENT: Informed and witnessed obtained from the patient's , Hilda Berman after the vessel engineer had discussed the dialysis and renal issues with her. COMPLICATIONS: No immediate procedural complications. PROCEDURE DETAILS ARE FOLLOWS: After informed and witnessed consent as well as premedication, which was mostly by sedation, the patient was on a fentanyl drip at that time as well as a propofol drip and a Versed drip for his severe COVID infection and ventilator status. Strict sterile technique was used, which include sterile gown, hat, mask, gloves and full barrier drape. Generous local anesthetic agent was used. The area of the left upper anterior triangle and left upper chest wall was sterilely prepped and draped prior to the procedure. This was due to the fact that if there was need to place a subclavian line, we will not need to re-prep the patient. The left internal jugular vein was located under ultrasound guidance, it was compressible. It was lateral to the carotid and anterior to the carotid artery. I was able to assess the vein on first stick with a good looking venous blood return. I should mention the patient was in Trendelenburg position for the whole procedure. However, I was unable to thread the wire through without meeting significant resistance. The wire was pulled out and I attempted to cannulate the left internal jugular a little bit higher. Again, I had difficulty threading the wire and so a decision was made to abandon that route. The left subclavian was then assessed on the first stick. I was able to get into the left subclavian vein. The wire threaded easily. Catheter was advanced over wire and ultimately sutured in place. This was after dilatation with the dilators provided before the catheter was advanced. I had good looking venous blood return again from the catheter. The catheter was sutured in place. Postprocedure chest x-ray shows good position of the catheter without any obvious pneumothorax. Total procedural time was about 55 minutes. TID: [id number] RECEIPT: [id number] [facility]
--- NOTE | 2021-01-27 18:09 | Consultation ---
History of Present Illness - Reason for Consult Consult date: 01/27/21 acute renal failure - History of Present Illness This is a 55-year-old man with morbid obesity who presented following recent diagnosis of Covid infection and and for day history of shortness of breath. He was previously seen at another hospital but was discharged home as he was saturating well on room air. His symptoms progressively worsened and he became altered therefore compelling other visit to the emergency department where he was subsequently admitted. His stay was complicated by acute respiratory failure requiring intubation. His renal function continued to decline during his stay. Nephrology was consulted for acute kidney injury. Patient is sedated and intubated and history has been obtained from chart. Past History Past Medical History: other (Morbid Obesity. Venous insufficiency.) Medications and Allergies Allergies Allergy/AdvReac Type Severity Reaction Status Date / Time No Known Allergies Allergy Verified 01/27/21 15:55 Home Medications Medication Instructions Recorded Confirmed Last Taken Type No Known Home Medications [No 01/27/21 01/27/21 Unknown History Reported Home Medications] Active Meds: Active Medications Acetaminophen (Acetaminophen 325 Mg Tab) 650 mg PO Q4H PRN PRN Reason: Pain MILD(1-3)/Fever >100.5/ANDERSEN Al Hydrox/Mg Hydrox/Simethicone (Alum-Mag Hydroxide-Simethicone [id number]/5ml Oral Liqd 30 Ml) 30 ml PO Q4H PRN PRN Reason: Indigestion Last Admin: 01/25/21 01:31 Dose: 30 ml Documented by: Albumin Human (Albumin Human 25% (25 Gm/100 Ml) Inj) 25 gm IV MELECIO PRN PRN Reason: Hypotension Lipase/Protease/Amylase (Lipase 10,500/Protease 25,000/Amylase 43,750 (Units) Dr Singer) 1 each FEEDTUBE PRN PRN PRN Reason: For Clogged Feeding Tube Dexamethasone (Dexamethasone 4 Mg/Ml Vial) 10 mg IV Q24HR@2200 JACK Stop: 01/31/21 22:01 Last Admin: 01/27/21 00:54 Dose: 10 mg Documented by: Enoxaparin Sodium (Enoxaparin 100 Mg/1 Ml Inj) 100 mg SUB-Q Q24H [facility] Last Admin: 01/27/21 00:57 Dose: 100 mg Documented by: Enoxaparin Sodium (Enoxaparin 30 Mg/0.3 Ml Inj) 30 mg SUB-Q Q24H JACK Last Admin: 01/27/21 00:57 Dose: 30 mg Documented by: Famotidine (Famotidine 20 Mg/2 Ml Inj) 20 mg IV DAILY JACK Last Admin: 01/27/21 11:00 Dose: 20 mg Documented by: Fentanyl (Fentanyl 100 Mcg/2 Ml Inj) 50 mcg IV Q10MIN PRN PRN Reason: ANALGESIA Hydromorphone HCl (Hydromorphone 1 Mg/1 Ml Inj) 0.5 mg IV Q3H PRN PRN Reason: Pain , Severe (7-10) Last Admin: 01/25/21 07:15 Dose: 0.5 mg Documented by: Hydrophilic Ointment (Lip Therapy Vaseline) 1 applic TP Q2HR PRN PRN Reason: Dry Lips Fentanyl Citrate (Fentanyl Drip Premix) 2,000 mcg in 100 mls @ 6.357 mls/hr IV TITR JACK; Protocol Last Admin: 01/27/21 13:27 Dose: 4 mcg/kg/hr, 25.428 mls/hr Documented by: Propofol (Diprivan 10 Mg/Ml) 1,000 mg in 100 mls @ 3.814 mls/hr IV TITR JACK; Protocol Last Admin: 01/27/21 16:29 Dose: 25 mcg/kg/min, 19.071 mls/hr Documented by: Norepinephrine (Levophed Drip 4 Mg/Ns 250 Ml) 4 mg in 250 mls @ 7.5 mls/hr IV TITR JACK; Protocol Last Titration: 01/27/21 15:50 Dose: 16 mcg/min, 60 mls/hr Documented by: Midazolam HCl 100 mg/ Sodium (Chloride) 100 mls @ 1 mls/hr IV TITR JACK; Protocol Last Admin: 01/27/21 09:14 Dose: 1 mg/hr, 1 mls/hr Documented by: Sodium Chloride (Nacl 0.9%) 100 mls @ 999 mls/hr IV MELECIO PRN PRN Reason: Hypotension Metoclopramide HCl (Metoclopramide 10 Mg/2 Ml Inj) 10 mg IV Q6H PRN PRN Reason: Nausea And Vomiting Midazolam HCl (Midazolam 2 Mg/2 Ml Inj) 2 mg IV Q10MIN PRN PRN Reason: Sedation Multi-Ingred Cream/Lotion/Oil/Oint (Mineral Oil/Petrolatum, White Ophth Oint 3.5 Gm) 1 applic OU Q4HR PRN PRN Reason: Dry Eye(s) Ondansetron HCl (Ondansetron 4 Mg/2 Ml Inj) 4 mg IV Q8H PRN PRN Reason: Nausea And Vomiting Oxycodone/Acetaminophen (Oxycodone /Acetaminophen 5-325mg Tab) 1 tab PO Q6H PRN PRN Reason: Pain, Moderate (4-6) Last Admin: 01/24/21 22:36 Dose: 1 tab Documented by: Senna/Docusate Sodium (Sennosides/Docusate Sodium 8.6/50 Mg Tab) 1 tab FEEDTUBE BID [facility] Last Admin: 01/26/21 22:00 Dose: Not Given Documented by: Simple Syrup (Simple Syrup 15 Ml) 15 ml FEEDTUBE PRN PRN PRN Reason: Hypoglycemia Simple Syrup (Simple Syrup 15 Ml) 30 ml FEEDTUBE PRN PRN PRN Reason: Hypoglycemia Sodium Bicarbonate (Sodium Bicarbonate 325 Mg Tab) 325 mg FEEDTUBE PRN PRN PRN Reason: For Clogged Feeding Tube Sodium Chloride (Sodium Chloride 0.9% 10 Ml Flush Syringe) 10 ml IV BID [facility] Last Admin: 01/27/21 11:00 Dose: 10 ml Documented by: Sodium Chloride (Sodium Chloride 0.9% 10 Ml Flush Syringe) 10 ml IV PRN PRN PRN Reason: LINE FLUSH Review of Systems ROS unobtainable: due to endotracheal tube, due to mental status Exam - Vital Signs Vital signs: Vital Signs Pulse Ox 90 01/22/21 11:02 - Physical Exam Narrative exam: General: Sedated. Intubated HEENT: Oral mucosa moist Neck: Supple, no JVD Chest: Intubated. Mechanical breath sounds Heart: RRR, S1 and S2, no pericardial rub Abdomen: Soft, nontender, no renal bruit Extremity: No peripheral cyanosis, edema Neurological: Sedated. Dermatology: No skin rash Psych: Unable to assess Musculoskeletal: No joint effusion Results - Lab Results 01/23/21 05:29 01/27/21 05:00 Most recent lab results ABG pH 7.215 (7.320-7.450) L 01/27/21 02:55 ABG pCO2 46.6 mm Hg 01/26/21 08:30 ABG pO2 124.5 mm Hg (80.0-90.0) H 01/26/21 08:30 ABG HCO3 21.7 mmol/L (20.0-26.0) 01/26/21 08:30 ABG O2 Saturation 98.9 (0-100) 01/27/21 02:55 Calcium 7.9 mg/dL (8.4-10.2) L 01/27/21 05:00 Assessment and Plan Assessment Acute kidney injury Hyperkalemia Acidosis Azotemia Acute respiratory failure, status post intubation Covid pneumonia Recommendations Start dialysis for clearance. Case was discussed in detail with patient's . Consent was obtained from for [employer]. Possible complications on dialysis were also explained in detail. Check renal ultrasound Check urinalysis Check serologies Unstable for renal biopsy at this time Renally dose medications Avoid nephrotoxins
[2021-01-28] MEDS: fentaNYL DRIP Premix 2,000 MCG/100 ML BAG IV SCH ×7 (00:55→23:29)
[2021-01-28] MEDS: NORepinephrine/NS 4 MG-250 ML 4 MG/250 ML BAG IV SCH ×5 (00:56→19:25)
[2021-01-28] MEDS ORDERED: AMIODARONE 150 MG in DEXTROSE 5% IN WATER 97 ML IV ONE (06:52)
[2021-01-28] MEDS: AMIODARONE 900 MG in DEXTROSE 5% IN WATER 482 ML IV SCH (07:08)
[2021-01-28] MEDS: VASOPRESSIN 20 UNIT in SODIUM CHLORIDE 0.9% 100 ML IV SCH ×2 (07:26→17:13)
--- NOTE | 2021-01-28 09:18 | Consultation ---
History of Present Illness Consult date: 01/28/21 Requesting physician: KASEY LAGUNA Consult reason: other (SVT) History of present illness: Pt is a 55-year-old male, previously unknown to our practice, who had initially presented to [facility] on 01/17 with complaints of muscle aches, chills, decreased appetite, cough, and congestion. He was found to positive for COVID-19 with associated radiographic evidence of multifocal PNA per ER documentation. Pt was deemed to be stable and was discharged home with PO steroids and a PRN albuterol inhaler. He presented to [facility] x 5 days later with progressively worsening SOB and was found to be significantly hypoxic. He is now intubated/on mechanical ventilation and requiring vasopressor support. Due to worsening renal function, he will also be initiated on dialysis. Cardiology has been consulted for SVT. ECG reveals AF with RVR with rate in the 150s. Pt was subsequently started on IV Amio gtt and has since converted to SR. In SR 60s upon assessment this AM. Past History Past Medical History: other (chronic venous insufficiency) Past Surgical History: No surgical history Social history: no significant social history. denies: smoking Family history: no significant family history Medications and Allergies Allergies Allergy/AdvReac Type Severity Reaction Status Date / Time No Known Allergies Allergy Verified 01/27/21 15:55 Home Medications Medication Instructions Recorded Confirmed Last Taken Type No Known Home Medications [No 01/27/21 01/27/21 Unknown History Reported Home Medications] Active Meds: Active Medications Acetaminophen (Acetaminophen 325 Mg Tab) 650 mg PO Q4H PRN PRN Reason: Pain MILD(1-3)/Fever >100.5/ANDERSEN Al Hydrox/Mg Hydrox/Simethicone (Alum-Mag Hydroxide-Simethicone [id number]/5ml Oral Liqd 30 Ml) 30 ml PO Q4H PRN PRN Reason: Indigestion Last Admin: 01/25/21 01:31 Dose: 30 ml Documented by: Albumin Human (Albumin Human 25% (25 Gm/100 Ml) Inj) 25 gm IV MELECIO PRN PRN Reason: Hypotension Lipase/Protease/Amylase (Lipase 10,500/Protease 25,000/Amylase 43,750 (Units) Dr Singer) 1 each FEEDTUBE PRN PRN PRN Reason: For Clogged Feeding Tube Dexamethasone (Dexamethasone 4 Mg/Ml Vial) 10 mg IV Q24HR@2200 JACK Stop: 01/31/21 22:01 Last Admin: 01/27/21 21:37 Dose: 10 mg Documented by: Enoxaparin Sodium (Enoxaparin 100 Mg/1 Ml Inj) 100 mg SUB-Q Q24H JACK Last Admin: 01/27/21 21:37 Dose: 100 mg Documented by: Enoxaparin Sodium (Enoxaparin 30 Mg/0.3 Ml Inj) 30 mg SUB-Q Q24H JACK Last Admin: 01/27/21 21:37 Dose: 30 mg Documented by: Famotidine (Famotidine 20 Mg/2 Ml Inj) 20 mg IV DAILY JACK Last Admin: 01/27/21 11:00 Dose: 20 mg Documented by: Fentanyl (Fentanyl 100 Mcg/2 Ml Inj) 50 mcg IV Q10MIN PRN PRN Reason: ANALGESIA Last Admin: 01/28/21 06:10 Dose: 50 mcg Documented by: Hydromorphone HCl (Hydromorphone 1 Mg/1 Ml Inj) 0.5 mg IV Q3H PRN PRN Reason: Pain , Severe (7-10) Last Admin: 01/25/21 07:15 Dose: 0.5 mg Documented by: Hydrophilic Ointment (Lip Therapy Vaseline) 1 applic TP Q2HR PRN PRN Reason: Dry Lips Fentanyl Citrate (Fentanyl Drip Premix) 2,000 mcg in 100 mls @ 6.357 mls/hr IV TITR JACK; Protocol Last Admin: 01/28/21 08:46 Dose: 4 mcg/kg/hr, 25.428 mls/hr Documented by: Propofol (Diprivan 10 Mg/Ml) 1,000 mg in 100 mls @ 3.814 mls/hr IV TITR JACK; Protocol Last Admin: 01/28/21 08:45 Dose: 50 mcg/kg/min, 38.143 mls/hr Documented by: Norepinephrine (Levophed Drip 4 Mg/Ns 250 Ml) 4 mg in 250 mls @ 7.5 mls/hr IV TITR JACK; Protocol Last Titration: 01/28/21 08:45 Dose: 16 mcg/min, 60 mls/hr Documented by: Midazolam HCl 100 mg/ Sodium (Chloride) 100 mls @ 1 mls/hr IV TITR JACK; Protocol Last Titration: 01/28/21 05:40 Dose: 5 mg/hr, 5 mls/hr Documented by: Sodium Chloride (Nacl 0.9%) 100 mls @ 999 mls/hr IV MELECIO PRN PRN Reason: Hypotension Amiodarone HCl 900 mg/ (Dextrose) 500 mls @ 33.333 mls/hr IV DIRECT JACK; Protocol Last Admin: 01/28/21 07:08 Dose: 1 mg/min, 33.333 mls/hr Documented by: Vasopressin 20 unit/ Sodium (Chloride) 101 mls @ 9.09 mls/hr IV TITR JACK; Protocol Last Admin: 01/28/21 07:26 Dose: 0.03 units/min, 9.09 mls/hr Documented by: Metoclopramide HCl (Metoclopramide 10 Mg/2 Ml Inj) 10 mg IV Q6H PRN PRN Reason: Nausea And Vomiting Midazolam HCl (Midazolam 2 Mg/2 Ml Inj) 2 mg IV Q10MIN PRN PRN Reason: Sedation Multi-Ingred Cream/Lotion/Oil/Oint (Mineral Oil/Petrolatum, White Ophth Oint 3.5 Gm) 1 applic OU Q4HR PRN PRN Reason: Dry Eye(s) Ondansetron HCl (Ondansetron 4 Mg/2 Ml Inj) 4 mg IV Q8H PRN PRN Reason: Nausea And Vomiting Oxycodone/Acetaminophen (Oxycodone /Acetaminophen 5-325mg Tab) 1 tab PO Q6H PRN PRN Reason: Pain, Moderate (4-6) Last Admin: 01/24/21 22:36 Dose: 1 tab Documented by: Senna/Docusate Sodium (Sennosides/Docusate Sodium 8.6/50 Mg Tab) 1 tab FEEDTUBE BID JACK Last Admin: 01/27/21 21:38 Dose: 1 tab Documented by: Simple Syrup (Simple Syrup 15 Ml) 15 ml FEEDTUBE PRN PRN PRN Reason: Hypoglycemia Simple Syrup (Simple Syrup 15 Ml) 30 ml FEEDTUBE PRN PRN PRN Reason: Hypoglycemia Sodium Bicarbonate (Sodium Bicarbonate 325 Mg Tab) 325 mg FEEDTUBE PRN PRN PRN Reason: For Clogged Feeding Tube Sodium Chloride (Sodium Chloride 0.9% 10 Ml Flush Syringe) 10 ml IV BID JACK Last Admin: 01/27/21 21:38 Dose: 10 ml Documented by: Sodium Chloride (Sodium Chloride 0.9% 10 Ml Flush Syringe) 10 ml IV PRN PRN PRN Reason: LINE FLUSH Review of Systems ROS unobtainable: due to endotracheal tube Physical Examination Last Vital Signs Temp 101.1 F H 01/28/21 07:18 Pulse 140 H 01/28/21 07:49 Resp 30 H 01/28/21 06:16 BP 109/60 01/28/21 07:49 Pulse Ox 97 01/28/21 07:49 General appearance: other (intubated) HEENT: Positive: Normocephaly Neck: Negative: JVD/HJR Cardiac: Positive: Reg Rate and Rhythm, S1/S2 Lungs: Positive: Decreased Breath Sounds Neuro: Positive: Other (intubated) Abdomen: Positive: Soft Skin: Negative: Rash Musculoskeletal: No Fluid Collection Extremities: Present: lower extr. pulses, Other (chronic changes). Absent: edema Results 01/28/21 10:03 01/28/21 10:03 Lipids 01/28/21 Range/Units 04:00 Triglycerides 369 H (2-149) mg/dL - Imaging and Cardiology Echo: pending EKG: report reviewed, image reviewed - EKG Interpretation EKG: no acute changes EKG interpretations - Telemetry EKG Rhythm: Sinus Rhythm - EKG Supraventricular dysrhythmia: atrial fibrillation Repolarization changes or abnormalities: nonspecific abnormality, ST segment, and/or T wave Assessment and Plan Assessment: Acute Respiratory Failure COVID-19 PNA Septic Shock SEDRICK Hyperkalemia New Onset AF with RVR Obesity Chronic Venous Insufficiency Plan: Recommend anticoagulation with IV heparin gtt. Continue IV Amio gtt @ 0.5mg/min for now. Wean pressors as tolerated. Pt seen in conjunction with Dr. Rosales, who agrees with the assessment and plan of care. - Patient Problems (1) Acute respiratory failure Current Visit: Yes Status: Acute (2) Pneumonia due to COVID-19 virus Current Visit: Yes Status: Acute (3) Septic shock Current Visit: Yes Status: Acute (4) SEDRICK (acute kidney injury) Current Visit: Yes Status: Acute (5) Atrial fibrillation with RVR Current Visit: Yes Status: Acute (6) Obesity Current Visit: Yes Status: Chronic Qualifiers: Body mass index: BMI 45.0-49.9 (7) Chronic venous insufficiency Current Visit: Yes Status: Chronic
[2021-01-28] MEDS ORDERED: HEPARIN 10,000 UNITS/10 ML VIAL IV ONE (09:27)
[2021-01-28] MEDS ORDERED: HEPARIN 10,000 UNITS/10 ML VIAL IV PRN (09:27)
[2021-01-28] MEDS ORDERED: HEPARIN/ 0.45% NACL DRIP 25,000 UNIT/500 ML BAG IV SCH (09:28)
[2021-01-28] MEDS: FAMOTIDINE 20 MG/2 ML INJ IV SCH (09:55)
[2021-01-28] MEDS: SENNOSIDES/DOCUSATE SODIUM 8.6/50 MG TAB FEEDTUBE SCH ×2 (09:55→21:28)
[2021-01-28] MEDS: HEPARIN/ 0.45% NACL DRIP 25,000 UNIT/500 ML BAG IV SCH (10:10)
[2021-01-28 10:38] LABS: Hematocrit 37.3 % (35.5-45.6); Hemoglobin 12.2 gm/dl (11.8-15.2)
[2021-01-28 10:51] LABS: Calcium 7.7 mg/dL (8.4-10.2); INR 1.36 (0.87-1.13)
[2021-01-28 10:53] LABS: Partial Thromboplastin Time 29.2 Sec. (24.2-36.6)
--- NOTE | 2021-01-28 13:51 | Progress Note ---
Assessment and Plan Acute hypoxemic respiratory failure COVID-19 infection Multifocal pneumonia Hypernatremia Sepsis Morbid obesity with BMI of 40.0-44.9, adult - tolerated HD/UF yesterday; continue per nephrology prescription - amiodarone started for SVT - cardiology consulted - wean Vasopressors for target MAP > 65 mmHg - continue care as below otherwise; - sedation for target RASS -2 to -3 acutely - Daily SAT and SBT assessment as tolerated - continue to wean supplemental oxygen for target O2 sat's > 92% acutely - VAP bundle addressed - continue lung protective strategies - continue bronchodilators with pulmonary hygiene per RT - wean per pulmonary driven protocols otherwise - avoid nephrotoxins, renally dose all medications - continue to avoid benzodiazepine's, reduce the possibility of delirium - complete AB's per ID rec's - prn analgesia per CPOT score - Maintenance of sleep-wake cycle, avoid delirium - enteral nutritional support at goal rate as tolerated - G.I. & VTE prophylaxis - PT/OT/ROM exercises - continue mobility protocols for pressure ulcer prophylaxis - Monitor hemodynamics closely - continue other care per attending / other consultants - discharge planning ongoing concurrently COVID SPECIFIC INTERVENTIONS - Remdesivir as per ID/Pulmonary developed protocols (receiving) - continue systemic steroids for severe COVID-19 infection (Dexamethasone) - follow repeat COVID tests results - zinc and vitamin C supplementation - Monitor inflammatory markers per facility protocol - ferritin, Ddimer, CRP - therapeutic anticoagulation per system Protocol based on d-dimer and clinical considerations (VTE prophylaxis doses now) - Continue contact and airborne isolation .... Re-evaluate in am & prn CONDITION: CRITICAL PROGNOSIS: GUARDED CODE STATUS: FULL CODE The high probability of a clinically significant, sudden or life-threatening deterioration of the [respiratory, cardiovascular & neurologic] system(s) required my full and direct attention, intervention and personal management. The aggregate critical care time was [35] minutes without overlap. Time includes spent on; [x] Data Review and interpretation [x] Patient assessment and monitoring of vital signs [x] Documentation [x] Medication orders and management Subjective Date of service: 01/28/21 Principal diagnosis: Ac hypoxemic resp failure; COVID-19; Pneumonia; Sepsis; Morbid obesity Interval history: Patient is seen today for: Acute hypoxemic respiratory failure; COVID- 19infection; Multifocal pneumonia; Hypernatremia; Sepsis; Morbid obesity Seen and examined at bedside; 24hour events reviewed; nursing and respiratory care staff consulted; no adverse overnight events reported to me; resting in bed; developed SVT overnight; FiO2 at 75% with some room to wean; no gross bleeding on IV Heparin Objective Vital Signs - 12hr 01/28/21 01/28/21 01/28/21 02:00 02:15 02:30 Temperature Pulse Rate 77 77 77 Pulse Rate [ From Monitor] Respiratory 30 H 30 H 30 H Rate Blood Pressure 118/38 121/41 122/39 O2 Sat by Pulse 95 94 94 Oximetry 01/28/21 01/28/21 01/28/21 02:45 03:00 03:15 Temperature Pulse Rate 78 79 78 Pulse Rate [ From Monitor] Respiratory 30 H 30 H 30 H Rate Blood Pressure 117/40 123/36 123/37 O2 Sat by Pulse 94 95 94 Oximetry 01/28/21 01/28/21 01/28/21 03:30 03:45 04:00 Temperature 99.9 F H Pulse Rate 79 81 80 Pulse Rate [ From Monitor] Respiratory 30 H 30 H 30 H Rate Blood Pressure 122/36 120/35 121/39 O2 Sat by Pulse 93 93 93 Oximetry 01/28/21 01/28/21 01/28/21 04:15 04:30 04:45 Temperature Pulse Rate 82 79 81 Pulse Rate [ From Monitor] Respiratory 30 H 30 H 30 H Rate Blood Pressure 122/35 113/40 123/38 O2 Sat by Pulse 94 94 93 Oximetry 01/28/21 01/28/21 01/28/21 05:00 05:15 05:30 Temperature Pulse Rate 82 82 181 H Pulse Rate [ From Monitor] Respiratory 30 H 30 H 30 H Rate Blood Pressure 112/39 119/41 119/41 O2 Sat by Pulse 94 94 94 Oximetry 01/28/21 01/28/21 01/28/21 05:46 06:00 06:16 Temperature Pulse Rate 182 H 162 H 198 H Pulse Rate [ From Monitor] Respiratory 30 H 30 H 30 H Rate Blood Pressure 87/60 77/49 84/46 O2 Sat by Pulse 94 92 94 Oximetry 01/28/21 01/28/21 01/28/21 06:46 07:00 07:15 Temperature Pulse Rate 181 H 170 H 211 H Pulse Rate [ From Monitor] Respiratory 29 H 30 H 30 H Rate Blood Pressure 145/46 79/39 72/38 O2 Sat by Pulse 95 96 96 Oximetry 01/28/21 01/28/21 01/28/21 07:18 07:30 07:45 Temperature 101.1 F H Pulse Rate 180 H 137 H Pulse Rate [ From Monitor] Respiratory 30 H 30 H Rate Blood Pressure 72/38 109/66 O2 Sat by Pulse 96 96 Oximetry 01/28/21 01/28/21 01/28/21 07:49 08:00 08:16 Temperature Pulse Rate 140 H 159 H 145 H Pulse Rate [ 159 H From Monitor] Respiratory 30 H 30 H Rate Blood Pressure 109/60 109/66 117/71 O2 Sat by Pulse 97 97 95 Oximetry 01/28/21 01/28/21 01/28/21 08:30 08:46 09:00 Temperature Pulse Rate 129 H 79 73 Pulse Rate [ From Monitor] Respiratory 30 H 29 H 30 H Rate Blood Pressure 130/65 62/32 131/64 O2 Sat by Pulse 94 96 95 Oximetry 01/28/21 01/28/21 01/28/21 09:15 09:30 09:46 Temperature Pulse Rate 72 71 78 Pulse Rate [ From Monitor] Respiratory 30 H 30 H 29 H Rate Blood Pressure 131/61 130/57 56/25 O2 Sat by Pulse 94 93 94 Oximetry 01/28/21 01/28/21 01/28/21 10:00 10:15 10:30 Temperature Pulse Rate 66 67 68 Pulse Rate [ From Monitor] Respiratory 30 H 29 H 30 H Rate Blood Pressure 138/67 137/61 135/54 O2 Sat by Pulse 95 93 93 Oximetry 01/28/21 01/28/21 01/28/21 10:45 11:00 11:15 Temperature Pulse Rate 68 67 67 Pulse Rate [ From Monitor] Respiratory 30 H 30 H 30 H Rate Blood Pressure 137/55 143/59 141/55 O2 Sat by Pulse 94 93 94 Oximetry 01/28/21 01/28/21 01/28/21 11:30 11:40 11:46 Temperature Pulse Rate 67 67 66 Pulse Rate [ From Monitor] Respiratory 30 H 30 H Rate Blood Pressure 150/62 141/56 150/56 O2 Sat by Pulse 93 97 94 Oximetry 01/28/21 01/28/21 01/28/21 12:00 12:16 12:30 Temperature Pulse Rate 66 66 66 Pulse Rate [ 66 From Monitor] Respiratory 30 H 30 H 30 H Rate Blood Pressure 149/59 141/56 142/60 O2 Sat by Pulse 93 94 92 Oximetry 01/28/21 12:36 Temperature 99.3 F Pulse Rate Pulse Rate [ From Monitor] Respiratory Rate Blood Pressure O2 Sat by Pulse Oximetry Constitutional: no acute distress (sedated), other (middle aged obese male with mildly increased respiratory effort at rest on MVS) Eyes: non-icteric ENT: oropharynx moist, other (ETT 24 cm BRE) Neck: supple, no lymphadenopathy, no JVD, other (large circumference) Effort: mildly labored Ascultation: Bilateral: diminished breath sounds, rhonchi Percussion: Bilateral: not dull Cardiovascular: regular rate and rhythm Gastrointestinal: normoactive bowel sounds, soft, non-tender, non-distended (protuberant) Integumentary: normal Extremities: no cyanosis, no edema, pink and warm, pulses normal Neurologic: normal mental status, pupils equal and round, unable to assess (sedated) Psychiatric: other (unable top assess re: AMS) CBC and BMP: 01/28/21 10:03 01/28/21 10:03 ABG, PT/INR, D-dimer: ABG ABG pH 7.272 (7.320-7.450) L 01/28/21 04:00 POC ABG pCO2 48.4 mmHg (32.0-48.0) H 01/28/21 04:00 ABG pCO2 46.6 mm Hg 01/26/21 08:30 POC ABG pO2 104.8 mmHg (83-108) 01/28/21 04:00 ABG pO2 124.5 mm Hg (80.0-90.0) H 01/26/21 08:30 POC ABG HCO3 21.8 01/28/21 04:00 ABG O2 Saturation 97.8 (0-100) 01/28/21 04:00 PT/INR, D-dimer PT 17.3 Sec. (12.2-14.9) H 01/28/21 10:03 INR 1.36 (0.87-1.13) H 01/28/21 10:03 D-Dimer > 71519 ng/mlDDU (0-234) H 01/25/21 06:22 Abnormal lab findings: Abnormal Labs 01/22/21 01/22/21 01/22/21 11:06 11:06 11:06 WBC RBC Hgb Hct Plt Count Lymph % (Auto) Lymph # (Auto) [place] # (Auto) Seg Neutrophils % Seg Neuts % (Manual) Lymphocytes % (Manual) Nucleated RBC % Seg Neutrophils # Seg Neutrophils # Man Lymphocytes # (Manual) Monocytes # (Manual) PT INR D-Dimer 2625.11 H ABG pH POC ABG pCO2 POC ABG pO2 ABG pO2 ABG Base Excess ABG Oxyhemoglobin ABG Sodium ABG Potassium ABG Chloride ABG Glucose Carboxyhemoglobin Sodium Potassium Chloride Carbon Dioxide BUN Creatinine Glucose 130 H POC Glucose Hemoglobin A1c Lactic Acid Calcium Ferritin 557.5 H Total Bilirubin AST Alkaline Phosphatase Lactate Dehydrogenase 799 H Total Creatine Kinase C-Reactive Protein 3.30 H Albumin Triglycerides TSH Arterial Blood Glucose Arterial Blood Ionized Calcium Coronavirus (PCR) 01/22/21 01/22/21 01/22/21 11:06 11:06 11:06 WBC 19.2 H RBC 5.63 H Hgb 15.8 H Hct 49.0 H Plt Count Lymph % (Auto) Lymph # (Auto) [place] # (Auto) Seg Neutrophils % Seg Neuts % (Manual) 92.0 H Lymphocytes % (Manual) 1.0 L Nucleated RBC % 1.0 H Seg Neutrophils # Seg Neutrophils # Man 17.7 H Lymphocytes # (Manual) 0.2 L Monocytes # (Manual) 1.0 H PT INR D-Dimer ABG pH POC ABG pCO2 POC ABG pO2 ABG pO2 ABG Base Excess ABG Oxyhemoglobin ABG Sodium ABG Potassium ABG Chloride ABG Glucose Carboxyhemoglobin Sodium Potassium 3.3 L Chloride Carbon Dioxide 20 L BUN 32 H Creatinine Glucose 130 H POC Glucose Hemoglobin A1c Lactic Acid 4.20 H* Calcium Ferritin Total Bilirubin AST Alkaline Phosphatase Lactate Dehydrogenase Total Creatine Kinase C-Reactive Protein Albumin 2.9 L Triglycerides TSH Arterial Blood Glucose Arterial Blood Ionized Calcium Coronavirus (PCR) 01/22/21 01/22/21 01/23/21 11:06 12:03 05:29 WBC 19.0 H RBC 5.24 H Hgb 15.3 H Hct 46.0 H Plt Count Lymph % (Auto) 4.4 L Lymph # (Auto) 0.8 L [place] # (Auto) 1.2 H Seg Neutrophils % 89.1 H Seg Neuts % (Manual) Lymphocytes % (Manual) Nucleated RBC % Seg Neutrophils # 16.9 H Seg Neutrophils # Man Lymphocytes # (Manual) Monocytes # (Manual) PT INR D-Dimer ABG pH POC ABG pCO2 30.7 L POC ABG pO2 61.4 L ABG pO2 ABG Base Excess ABG Oxyhemoglobin 90.5 L ABG Sodium ABG Potassium ABG Chloride ABG Glucose Carboxyhemoglobin 1.7 H Sodium Potassium Chloride Carbon Dioxide BUN Creatinine Glucose POC Glucose Hemoglobin A1c 6.2 H Lactic Acid Calcium Ferritin Total Bilirubin AST Alkaline Phosphatase Lactate Dehydrogenase Total Creatine Kinase C-Reactive Protein Albumin Triglycerides TSH Arterial Blood Glucose Arterial Blood Ionized Calcium Coronavirus (PCR) 01/23/21 01/23/21 01/23/21 05:29 09:00 16:55 WBC RBC Hgb Hct Plt Count Lymph % (Auto) Lymph # (Auto) [place] # (Auto) Seg Neutrophils % Seg Neuts % (Manual) Lymphocytes % (Manual) Nucleated RBC % Seg Neutrophils # Seg Neutrophils # Man Lymphocytes # (Manual) Monocytes # (Manual) PT INR D-Dimer ABG pH POC ABG pCO2 POC ABG pO2 ABG pO2 ABG Base Excess ABG Oxyhemoglobin ABG Sodium ABG Potassium ABG Chloride ABG Glucose Carboxyhemoglobin Sodium Potassium 3.5 L Chloride Carbon Dioxide BUN 29 H 27 H Creatinine Glucose 132 H 103 H POC Glucose Hemoglobin A1c Lactic Acid Calcium Ferritin Total Bilirubin AST Alkaline Phosphatase Lactate Dehydrogenase Total Creatine Kinase C-Reactive Protein Albumin 2.9 L 2.9 L Triglycerides TSH Arterial Blood Glucose Arterial Blood Ionized Calcium Coronavirus (PCR) Positive A 01/24/21 01/24/21 01/24/21 05:50 20:20 20:20 WBC RBC Hgb Hct Plt Count Lymph % (Auto) Lymph # (Auto) [place] # (Auto) Seg Neutrophils % Seg Neuts % (Manual) Lymphocytes % (Manual) Nucleated RBC % Seg Neutrophils # Seg Neutrophils # Man Lymphocytes # (Manual) Monocytes # (Manual) PT INR D-Dimer ABG pH POC ABG pCO2 POC ABG pO2 ABG pO2 ABG Base Excess ABG Oxyhemoglobin ABG Sodium ABG Potassium ABG Chloride ABG Glucose Carboxyhemoglobin Sodium 148 H Potassium 5.3 H D Chloride 109.3 H Carbon Dioxide BUN 26 H Creatinine 0.7 L Glucose 130 H POC Glucose Hemoglobin A1c Lactic Acid Calcium Ferritin 1031.0 H Total Bilirubin AST 45 H Alkaline Phosphatase Lactate Dehydrogenase 1511 H Total Creatine Kinase C-Reactive Protein 12.00 H Albumin 2.9 L Triglycerides TSH Arterial Blood Glucose Arterial Blood Ionized Calcium Coronavirus (PCR) 01/24/21 01/25/21 01/25/21 20:20 06:22 06:22 WBC RBC Hgb Hct Plt Count Lymph % (Auto) Lymph # (Auto) [place] # (Auto) Seg Neutrophils % Seg Neuts % (Manual) Lymphocytes % (Manual) Nucleated RBC % Seg Neutrophils # Seg Neutrophils # Man Lymphocytes # (Manual) Monocytes # (Manual) PT INR D-Dimer > 58164 H > 38469 H ABG pH POC ABG pCO2 POC ABG pO2 ABG pO2 ABG Base Excess ABG Oxyhemoglobin ABG Sodium ABG Potassium ABG Chloride ABG Glucose Carboxyhemoglobin Sodium 153 H Potassium 3.4 L D Chloride 116.1 H Carbon Dioxide 21 L BUN 27 H Creatinine Glucose 133 H POC Glucose Hemoglobin A1c Lactic Acid Calcium Ferritin Total Bilirubin 1.30 H AST 50 H Alkaline Phosphatase 159 H Lactate Dehydrogenase Total Creatine Kinase C-Reactive Protein Albumin 2.9 L Triglycerides TSH Arterial Blood Glucose Arterial Blood Ionized Calcium Coronavirus (PCR) 01/25/21 01/25/21 01/25/21 06:22 09:35 11:25 WBC RBC Hgb Hct Plt Count Lymph % (Auto) Lymph # (Auto) [place] # (Auto) Seg Neutrophils % Seg Neuts % (Manual) Lymphocytes % (Manual) Nucleated RBC % Seg Neutrophils # Seg Neutrophils # Man Lymphocytes # (Manual) Monocytes # (Manual) PT INR D-Dimer ABG pH 7.453 H 7.228 L POC ABG pCO2 60.0 H POC ABG pO2 44.9 L 111.7 H ABG pO2 ABG Base Excess ABG Oxyhemoglobin 81.4 L ABG Sodium 153.1 H 150.9 H ABG Potassium 3.3 L ABG Chloride 116.0 H 117.0 H ABG Glucose 151 H 155 H Carboxyhemoglobin Sodium Potassium Chloride Carbon Dioxide BUN Creatinine Glucose POC Glucose Hemoglobin A1c Lactic Acid Calcium Ferritin Total Bilirubin AST Alkaline Phosphatase Lactate Dehydrogenase Total Creatine Kinase C-Reactive Protein 16.80 H Albumin Triglycerides TSH Arterial Blood Glucose 151 H 155 H Arterial Blood Ionized Calcium Coronavirus (PCR) 01/25/21 01/26/21 01/26/21 21:00 07:32 07:39 WBC RBC Hgb Hct Plt Count Lymph % (Auto) Lymph # (Auto) [place] # (Auto) Seg Neutrophils % Seg Neuts % (Manual) Lymphocytes % (Manual) Nucleated RBC % Seg Neutrophils # Seg Neutrophils # Man Lymphocytes # (Manual) Monocytes # (Manual) PT INR D-Dimer ABG pH POC ABG pCO2 POC ABG pO2 68.5 L ABG pO2 ABG Base Excess ABG Oxyhemoglobin 91.3 L ABG Sodium 151.9 H ABG Potassium ABG Chloride 117.0 H ABG Glucose 140 H Carboxyhemoglobin Sodium 151 H Potassium Chloride 116.7 H Carbon Dioxide 20 L BUN 59 H Creatinine 3.4 H D Glucose 121 H POC Glucose Hemoglobin A1c Lactic Acid Calcium Ferritin 1921.0 H Total Bilirubin AST 45 H Alkaline Phosphatase 137 H Lactate Dehydrogenase 1559 H Total Creatine Kinase C-Reactive Protein 20.90 H Albumin 2.3 L Triglycerides TSH Arterial Blood Glucose 140 H Arterial Blood Ionized Calcium Coronavirus (PCR) 01/26/21 01/26/21 01/26/21 08:30 17:55 20:39 WBC RBC Hgb Hct Plt Count Lymph % (Auto) Lymph # (Auto) [place] # (Auto) Seg Neutrophils % Seg Neuts % (Manual) Lymphocytes % (Manual) Nucleated RBC % Seg Neutrophils # Seg Neutrophils # Man Lymphocytes # (Manual) Monocytes # (Manual) PT INR D-Dimer ABG pH 7.287 L POC ABG pCO2 POC ABG pO2 ABG pO2 124.5 H ABG Base Excess -5.0 L ABG Oxyhemoglobin ABG Sodium ABG Potassium ABG Chloride ABG Glucose Carboxyhemoglobin Sodium 152 H Potassium 6.0 H D Chloride 117.2 H Carbon Dioxide 15 L BUN 80 H Creatinine 5.6 H D Glucose 156 H POC Glucose 141 H Hemoglobin A1c Lactic Acid Calcium 7.4 L Ferritin Total Bilirubin AST Alkaline Phosphatase Lactate Dehydrogenase Total Creatine Kinase C-Reactive Protein Albumin Triglycerides TSH Arterial Blood Glucose Arterial Blood Ionized Calcium Coronavirus (PCR) 01/26/21 01/27/21 01/27/21 23:14 02:55 05:00 WBC RBC Hgb Hct Plt Count Lymph % (Auto) Lymph # (Auto) [place] # (Auto) Seg Neutrophils % Seg Neuts % (Manual) Lymphocytes % (Manual) Nucleated RBC % Seg Neutrophils # Seg Neutrophils # Man Lymphocytes # (Manual) Monocytes # (Manual) PT INR D-Dimer ABG pH 7.215 L POC ABG pCO2 48.9 H POC ABG pO2 143.3 H ABG pO2 ABG Base Excess ABG Oxyhemoglobin ABG Sodium 150.0 H ABG Potassium 5.0 H ABG Chloride 118.0 H ABG Glucose 180 H Carboxyhemoglobin Sodium 154 H Potassium 5.3 H Chloride 117.2 H Carbon Dioxide 19 L BUN 92 H Creatinine 6.4 H Glucose 175 H POC Glucose 148 H Hemoglobin A1c Lactic Acid Calcium 7.9 L Ferritin Total Bilirubin AST Alkaline Phosphatase Lactate Dehydrogenase Total Creatine Kinase C-Reactive Protein Albumin Triglycerides TSH Arterial Blood Glucose 180 H Arterial Blood Ionized Calcium 4.5 L Coronavirus (PCR) 01/27/21 01/27/21 01/27/21 05:00 05:14 11:42 WBC RBC Hgb Hct Plt Count Lymph % (Auto) Lymph # (Auto) [place] # (Auto) Seg Neutrophils % Seg Neuts % (Manual) Lymphocytes % (Manual) Nucleated RBC % Seg Neutrophils # Seg Neutrophils # Man Lymphocytes # (Manual) Monocytes # (Manual) PT INR D-Dimer ABG pH POC ABG pCO2 POC ABG pO2 ABG pO2 ABG Base Excess ABG Oxyhemoglobin ABG Sodium ABG Potassium ABG Chloride ABG Glucose Carboxyhemoglobin Sodium Potassium Chloride Carbon Dioxide BUN Creatinine Glucose POC Glucose 159 H 171 H Hemoglobin A1c Lactic Acid Calcium Ferritin Total Bilirubin AST Alkaline Phosphatase Lactate Dehydrogenase Total Creatine Kinase 258 H C-Reactive Protein Albumin Triglycerides TSH Arterial Blood Glucose Arterial Blood Ionized Calcium Coronavirus (PCR) 01/27/21 01/28/21 01/28/21 18:00 04:00 04:00 WBC RBC Hgb Hct Plt Count Lymph % (Auto) Lymph # (Auto) [place] # (Auto) Seg Neutrophils % Seg Neuts % (Manual) Lymphocytes % (Manual) Nucleated RBC % Seg Neutrophils # Seg Neutrophils # Man Lymphocytes # (Manual) Monocytes # (Manual) PT INR D-Dimer ABG pH 7.272 L POC ABG pCO2 48.4 H POC ABG pO2 ABG pO2 ABG Base Excess ABG Oxyhemoglobin ABG Sodium ABG Potassium ABG Chloride ABG Glucose 174 H Carboxyhemoglobin Sodium Potassium Chloride Carbon Dioxide BUN Creatinine Glucose POC Glucose 185 H Hemoglobin A1c Lactic Acid Calcium Ferritin Total Bilirubin AST Alkaline Phosphatase Lactate Dehydrogenase Total Creatine Kinase C-Reactive Protein Albumin Triglycerides 369 H TSH Arterial Blood Glucose 174 H Arterial Blood Ionized Calcium 4.3 L Coronavirus (PCR) 01/28/21 01/28/21 01/28/21 10:03 10:03 10:03 WBC RBC Hgb Hct Plt Count 104 L Lymph % (Auto) Lymph # (Auto) [place] # (Auto) Seg Neutrophils % Seg Neuts % (Manual) Lymphocytes % (Manual) Nucleated RBC % Seg Neutrophils # Seg Neutrophils # Man Lymphocytes # (Manual) Monocytes # (Manual) PT 17.3 H INR 1.36 H D-Dimer ABG pH POC ABG pCO2 POC ABG pO2 ABG pO2 ABG Base Excess ABG Oxyhemoglobin ABG Sodium ABG Potassium ABG Chloride ABG Glucose Carboxyhemoglobin Sodium Potassium 5.2 H Chloride Carbon Dioxide BUN 69 H Creatinine 5.6 H Glucose 220 H POC Glucose Hemoglobin A1c Lactic Acid Calcium 7.7 L Ferritin Total Bilirubin AST Alkaline Phosphatase Lactate Dehydrogenase Total Creatine Kinase C-Reactive Protein Albumin Triglycerides TSH Arterial Blood Glucose Arterial Blood Ionized Calcium Coronavirus (PCR) 01/28/21 01/28/21 10:03 11:34 WBC RBC Hgb Hct Plt Count Lymph % (Auto) Lymph # (Auto) [place] # (Auto) Seg Neutrophils % Seg Neuts % (Manual) Lymphocytes % (Manual) Nucleated RBC % Seg Neutrophils # Seg Neutrophils # Man Lymphocytes # (Manual) Monocytes # (Manual) PT INR D-Dimer ABG pH POC ABG pCO2 POC ABG pO2 ABG pO2 ABG Base Excess ABG Oxyhemoglobin ABG Sodium ABG Potassium ABG Chloride ABG Glucose Carboxyhemoglobin Sodium Potassium Chloride Carbon Dioxide BUN Creatinine Glucose POC Glucose 221 H Hemoglobin A1c Lactic Acid Calcium Ferritin Total Bilirubin AST Alkaline Phosphatase Lactate Dehydrogenase Total Creatine Kinase C-Reactive Protein Albumin Triglycerides TSH 0.013 L Arterial Blood Glucose Arterial Blood Ionized Calcium Coronavirus (PCR) Chest x-ray: other (none today) Allied health notes reviewed: nursing
--- NOTE | 2021-01-28 16:15 | Progress Note ---
Assessment and Plan Critical care statement The high probability OF a clinically significant sudden or life-threatening deterioration of the cardiorespiratory system and endocrine system required my full and direct attention, intervention and postoperative management. The aggregate critical lcare time was 40 minutes. The time is in addition to time spent performing reported procedures but includes the followin: Data review and interpretation 2: Patient assessment and monitoring of vital signs 3: Documentation 4:: Medication orders and management - Patient Problems (1) Acute respiratory failure due to COVID-19 Current Visit: Yes Status: Acute Plan to address problem: Patient intubated and on vent protocol (2) Hypotension Current Visit: Yes Status: Acute Plan to address problem: On pressors (3) Sepsis Current Visit: Yes Status: Acute Plan to address problem: Patient is a high white count and elevated inflammatory markers. Ferritin is 557 LDH is 749 CRP is 3.3. (4) Multifocal pneumonia Current Visit: Yes Status: Acute Plan to address problem: Patient initiated on IV ceftriaxone and Zithromax Recheck procalcitonin Will defer to ID regarding discontinuing antibiotics (5) Person under investigation for COVID-19 Current Visit: Yes Status: Acute Plan to address problem: Covid positive On IV steroids No remdesivir (6) Malnutrition Current Visit: Yes Status: Chronic Qualifiers: Protein-calorie malnutrition severity: moderate Qualified Code(s): E44.0 - Moderate protein-calorie malnutrition Plan to address problem: On dietary supplements (7) DVT prophylaxis Current Visit: Yes Status: Acute Plan to address problem: On Lovenox 40 mg subcu daily and GI prophylaxis Subjective Date of service: 01/28/21 Principal diagnosis: Ac hypoxemic resp failure; COVID-19; Pneumonia; Sepsis; Morbid obesity Interval history: History Interval history: Patient is not acute respiratory failure on continuous BiPAP With low saturations intermittently Patient has severe Covid pneumonia, elevated D-dimers on empiric full dose anticoagulation Not a candidate for CTA chest as patient is unstable Patient is critically ill in severe distress Patient has low saturations even on continuous BiPAP May need intubation and mechanical ventilation Vital signs noted 01/28/2021 Patient intubated Sedated Same condition On pressors Poor prognosis Objective - Exam Narrative Exam: Patient intubated - Constitutional Vitals: Vital Signs - 12hr 01/28/21 01/28/21 01/28/21 04:30 04:45 05:00 Temperature Pulse Rate 79 81 82 Pulse Rate [ From Monitor] Respiratory 30 H 30 H 30 H Rate Blood Pressure 113/40 123/38 112/39 O2 Sat by Pulse 94 93 94 Oximetry 01/28/21 01/28/21 01/28/21 05:15 05:30 05:46 Temperature Pulse Rate 82 181 H 182 H Pulse Rate [ From Monitor] Respiratory 30 H 30 H 30 H Rate Blood Pressure 119/41 119/41 87/60 O2 Sat by Pulse 94 94 94 Oximetry 01/28/21 01/28/21 01/28/21 06:00 06:16 06:46 Temperature Pulse Rate 162 H 198 H 181 H Pulse Rate [ From Monitor] Respiratory 30 H 30 H 29 H Rate Blood Pressure 77/49 84/46 145/46 O2 Sat by Pulse 92 94 95 Oximetry 01/28/21 01/28/21 01/28/21 07:00 07:15 07:18 Temperature 101.1 F H Pulse Rate 170 H 211 H Pulse Rate [ From Monitor] Respiratory 30 H 30 H Rate Blood Pressure 79/39 72/38 O2 Sat by Pulse 96 96 Oximetry 01/28/21 01/28/21 01/28/21 07:30 07:45 07:49 Temperature Pulse Rate 180 H 137 H 140 H Pulse Rate [ From Monitor] Respiratory 30 H 30 H Rate Blood Pressure 72/38 109/66 109/60 O2 Sat by Pulse 96 96 97 Oximetry 01/28/21 01/28/21 01/28/21 08:00 08:16 08:30 Temperature Pulse Rate 159 H 145 H 129 H Pulse Rate [ 159 H From Monitor] Respiratory 30 H 30 H 30 H Rate Blood Pressure 109/66 117/71 130/65 O2 Sat by Pulse 97 95 94 Oximetry 01/28/21 01/28/21 01/28/21 08:46 09:00 09:15 Temperature Pulse Rate 79 73 72 Pulse Rate [ From Monitor] Respiratory 29 H 30 H 30 H Rate Blood Pressure 62/32 131/64 131/61 O2 Sat by Pulse 96 95 94 Oximetry 01/28/21 01/28/21 01/28/21 09:30 09:46 10:00 Temperature Pulse Rate 71 78 66 Pulse Rate [ From Monitor] Respiratory 30 H 29 H 30 H Rate Blood Pressure 130/57 56/25 138/67 O2 Sat by Pulse 93 94 95 Oximetry 01/28/21 01/28/21 01/28/21 10:15 10:30 10:45 Temperature Pulse Rate 67 68 68 Pulse Rate [ From Monitor] Respiratory 29 H 30 H 30 H Rate Blood Pressure 137/61 135/54 137/55 O2 Sat by Pulse 93 93 94 Oximetry 01/28/21 01/28/21 01/28/21 11:00 11:15 11:30 Temperature Pulse Rate 67 67 67 Pulse Rate [ From Monitor] Respiratory 30 H 30 H 30 H Rate Blood Pressure 143/59 141/55 150/62 O2 Sat by Pulse 93 94 93 Oximetry 01/28/21 01/28/21 01/28/21 11:40 11:46 12:00 Temperature Pulse Rate 67 66 66 Pulse Rate [ 66 From Monitor] Respiratory 30 H 30 H Rate Blood Pressure 141/56 150/56 149/59 O2 Sat by Pulse 97 94 93 Oximetry 01/28/21 01/28/21 01/28/21 12:16 12:30 12:36 Temperature 99.3 F Pulse Rate 66 66 Pulse Rate [ From Monitor] Respiratory 30 H 30 H Rate Blood Pressure 141/56 142/60 O2 Sat by Pulse 94 92 Oximetry 01/28/21 15:18 Temperature Pulse Rate 62 Pulse Rate [ From Monitor] Respiratory Rate Blood Pressure 143/56 O2 Sat by Pulse 96 Oximetry General appearance: Present: no acute distress, well-nourished - EENT Eyes: PERRL, EOM intact ENT: hearing intact, clear oral mucosa Ears: bilateral: normal - Neck Neck: supple, normal ROM - Respiratory Respiratory effort: normal Respiratory: bilateral: CTA - Breasts Breasts: normal - Cardiovascular Heart rate: 98 Rhythm: regular Heart Sounds: Present: S1 & S2. Absent: gallop, rub Extremities: pulses intact, No edema, normal color, Full ROM - Gastrointestinal General gastrointestinal: Present: soft, non-tender, non-distended, normal bowel sounds - Genitourinary Male genitourinary: normal - Integumentary Integumentary: clear, warm, dry - Musculoskeletal Musculoskeletal: generalized weakness - Neurologic Neurologic: moves all extremities, other (Sedated) - Psychiatric Psychiatric: other (Sedated) - Labs CBC & Chem 7: 01/30/21 05:00 01/30/21 05:00 Labs: Abnormal lab results 01/27/21 01/28/21 01/28/21 Range/Units 18:00 04:00 04:00 Plt Count (140-440) K/mm3 PT (12.2-14.9) Sec. INR (0.87-1.13) ABG pH 7.272 L (7.320-7.450) POC ABG pCO2 48.4 H (32.0-48.0) mmHg ABG Glucose 174 H (65-95) mg/dL Potassium (3.6-5.0) mmol/L BUN (9-20) mg/dL Creatinine (0.8-1.3) mg/dL Glucose (75-100) mg/dL POC Glucose 185 H (70-105) mg/dL Calcium (8.4-10.2) mg/dL Magnesium (1.7-2.3) mg/dL Triglycerides 369 H (2-149) mg/dL TSH (0.270-4.200) mlU/mL Arterial Blood Glucose 174 H (65-95) mg/dL Arterial Blood Ionized Calcium 4.3 L (4.6-5.3) mg/dL 01/28/21 01/28/21 01/28/21 Range/Units 10:03 10:03 10:03 Plt Count 104 L (140-440) K/mm3 PT 17.3 H (12.2-14.9) Sec. INR 1.36 H (0.87-1.13) ABG pH (7.320-7.450) POC ABG pCO2 (32.0-48.0) mmHg ABG Glucose (65-95) mg/dL Potassium 5.2 H (3.6-5.0) mmol/L BUN 69 H (9-20) mg/dL Creatinine 5.6 H (0.8-1.3) mg/dL Glucose 220 H (75-100) mg/dL POC Glucose (70-105) mg/dL Calcium 7.7 L (8.4-10.2) mg/dL Magnesium (1.7-2.3) mg/dL Triglycerides (2-149) mg/dL TSH (0.270-4.200) mlU/mL Arterial Blood Glucose (65-95) mg/dL Arterial Blood Ionized Calcium (4.6-5.3) mg/dL 01/28/21 01/28/21 01/28/21 Range/Units 10:03 11:34 13:40 Plt Count (140-440) K/mm3 PT (12.2-14.9) Sec. INR (0.87-1.13) ABG pH (7.320-7.450) POC ABG pCO2 (32.0-48.0) mmHg ABG Glucose (65-95) mg/dL Potassium (3.6-5.0) mmol/L BUN (9-20) mg/dL Creatinine (0.8-1.3) mg/dL Glucose (75-100) mg/dL POC Glucose 221 H (70-105) mg/dL Calcium (8.4-10.2) mg/dL Magnesium 2.50 H (1.7-2.3) mg/dL Triglycerides (2-149) mg/dL TSH 0.013 L (0.270-4.200) mlU/mL Arterial Blood Glucose (65-95) mg/dL Arterial Blood Ionized Calcium (4.6-5.3) mg/dL HEART Score - HEART Score Age: 45-65 Risk factors: 1-2 risk factors Troponin: < normal limit - Critical Actions Critical Actions: 0-3 pts:0.9-1.7%risk of adverse cardiac event.Candidate for discharge
[2021-01-28] MEDS: MIDAZOLAM 100 MG in SODIUM CHLORIDE 0.9% 80 ML IV SCH (17:13)
--- NOTE | 2021-01-28 17:24 | Electrocardiograph Report ---
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
--- NOTE | 2021-01-28 18:53 | Progress Note ---
Assessment and Plan Assessment Acute kidney injury Hyperkalemia Acidosis Azotemia Acute respiratory failure, status post intubation Covid pneumonia Septic shock Recommendations Start dialysis for clearance 01/27. Case was discussed in detail with patient's . Consent was obtained from for [facility]. Possible complications on dialysis were also explained in detail. Continue MWF Assess daily for needs for additional sessions Ordered renal ultrasound - pending F/u urinalysis F/u serologies Unstable for renal biopsy at this time Renally dose medications Avoid nephrotoxins Subjective Date of service: 01/28/21 Principal diagnosis: Ac hypoxemic resp failure; COVID-19; Pneumonia; Sepsis; Morbid obesity Interval history: Remains intubated. No complications with HD yesterday. Objective - Exam Narrative Exam: General: Sedated. Intubated HEENT: Oral mucosa moist Neck: Supple, no JVD Chest: Intubated. Mechanical breath sounds Heart: RRR, S1 and S2, no pericardial rub Abdomen: Soft, nontender, no renal bruit Extremity: No peripheral cyanosis, edema Neurological: Sedated. Dermatology: No skin rash Psych: Unable to assess Musculoskeletal: No joint effusion - Vital Signs Vital signs: Vital Signs - 12hr 01/28/21 01/28/21 01/28/21 07:00 07:15 07:18 Temperature 101.1 F H Pulse Rate 170 H 211 H Pulse Rate [ From Monitor] Respiratory 30 H 30 H Rate Blood Pressure 79/39 72/38 O2 Sat by Pulse 96 96 Oximetry 01/28/21 01/28/21 01/28/21 07:30 07:45 07:49 Temperature Pulse Rate 180 H 137 H 140 H Pulse Rate [ From Monitor] Respiratory 30 H 30 H Rate Blood Pressure 72/38 109/66 109/60 O2 Sat by Pulse 96 96 97 Oximetry 01/28/21 01/28/21 01/28/21 08:00 08:16 08:30 Temperature Pulse Rate 159 H 145 H 129 H Pulse Rate [ 159 H From Monitor] Respiratory 30 H 30 H 30 H Rate Blood Pressure 109/66 117/71 130/65 O2 Sat by Pulse 97 95 94 Oximetry 01/28/21 01/28/21 01/28/21 08:46 09:00 09:15 Temperature Pulse Rate 79 73 72 Pulse Rate [ From Monitor] Respiratory 29 H 30 H 30 H Rate Blood Pressure 62/32 131/64 131/61 O2 Sat by Pulse 96 95 94 Oximetry 01/28/21 01/28/21 01/28/21 09:30 09:46 10:00 Temperature Pulse Rate 71 78 66 Pulse Rate [ From Monitor] Respiratory 30 H 29 H 30 H Rate Blood Pressure 130/57 56/25 138/67 O2 Sat by Pulse 93 94 95 Oximetry 01/28/21 01/28/21 01/28/21 10:15 10:30 10:45 Temperature Pulse Rate 67 68 68 Pulse Rate [ From Monitor] Respiratory 29 H 30 H 30 H Rate Blood Pressure 137/61 135/54 137/55 O2 Sat by Pulse 93 93 94 Oximetry 01/28/21 01/28/21 01/28/21 11:00 11:15 11:30 Temperature Pulse Rate 67 67 67 Pulse Rate [ From Monitor] Respiratory 30 H 30 H 30 H Rate Blood Pressure 143/59 141/55 150/62 O2 Sat by Pulse 93 94 93 Oximetry 01/28/21 01/28/21 01/28/21 11:40 11:46 12:00 Temperature Pulse Rate 67 66 66 Pulse Rate [ 66 From Monitor] Respiratory 30 H 30 H Rate Blood Pressure 141/56 150/56 149/59 O2 Sat by Pulse 97 94 93 Oximetry 01/28/21 01/28/21 01/28/21 12:16 12:30 12:36 Temperature 99.3 F Pulse Rate 66 66 Pulse Rate [ From Monitor] Respiratory 30 H 30 H Rate Blood Pressure 141/56 142/60 O2 Sat by Pulse 94 92 Oximetry 01/28/21 01/28/21 01/28/21 12:45 13:00 13:15 Temperature Pulse Rate 66 65 64 Pulse Rate [ From Monitor] Respiratory 30 H 30 H 30 H Rate Blood Pressure 143/55 145/59 144/57 O2 Sat by Pulse 92 92 93 Oximetry 01/28/21 01/28/21 01/28/21 13:30 13:45 14:00 Temperature Pulse Rate 65 67 65 Pulse Rate [ From Monitor] Respiratory 30 H 30 H 30 H Rate Blood Pressure 136/61 137/57 129/52 O2 Sat by Pulse 92 92 92 Oximetry 01/28/21 01/28/21 01/28/21 14:15 14:30 14:45 Temperature Pulse Rate 64 63 64 Pulse Rate [ From Monitor] Respiratory 30 H 20 30 H Rate Blood Pressure 138/61 135/59 138/65 O2 Sat by Pulse 92 92 91 Oximetry 01/28/21 01/28/21 01/28/21 15:00 15:15 15:18 Temperature Pulse Rate 62 63 62 Pulse Rate [ From Monitor] Respiratory 30 H 30 H Rate Blood Pressure 143/56 139/58 143/56 O2 Sat by Pulse 92 92 96 Oximetry 01/28/21 01/28/21 01/28/21 15:30 15:45 16:00 Temperature Pulse Rate 61 62 63 Pulse Rate [ 63 From Monitor] Respiratory 30 H 30 H 30 H Rate Blood Pressure 139/58 133/57 133/57 O2 Sat by Pulse 96 92 93 Oximetry 01/28/21 01/28/21 01/28/21 16:15 16:30 16:45 Temperature Pulse Rate 63 63 63 Pulse Rate [ From Monitor] Respiratory 30 H 30 H 30 H Rate Blood Pressure 137/55 136/57 137/56 O2 Sat by Pulse 93 91 91 Oximetry 01/28/21 01/28/21 01/28/21 16:58 17:00 17:16 Temperature 98.4 F Pulse Rate 63 68 Pulse Rate [ From Monitor] Respiratory 30 H 22 Rate Blood Pressure 136/60 119/41 O2 Sat by Pulse 91 86 Oximetry 01/28/21 01/28/21 01/28/21 17:30 17:45 18:00 Temperature Pulse Rate 69 66 65 Pulse Rate [ From Monitor] Respiratory 30 H 30 H 30 H Rate Blood Pressure 127/50 132/59 136/61 O2 Sat by Pulse 83 L 92 92 Oximetry 01/28/21 01/28/21 18:16 18:30 Temperature Pulse Rate 64 64 Pulse Rate [ From Monitor] Respiratory 30 H 30 H Rate Blood Pressure 139/59 126/52 O2 Sat by Pulse 94 Oximetry - Lab 01/28/21 10:03 01/28/21 10:03 Most recent lab results ABG pH 7.272 (7.320-7.450) L 01/28/21 04:00 ABG pCO2 46.6 mm Hg 01/26/21 08:30 ABG pO2 124.5 mm Hg (80.0-90.0) H 01/26/21 08:30 ABG HCO3 21.7 mmol/L (20.0-26.0) 01/26/21 08:30 ABG O2 Saturation 97.8 (0-100) 01/28/21 04:00 Calcium 7.7 mg/dL (8.4-10.2) L 01/28/21 10:03 Magnesium 2.50 mg/dL (1.7-2.3) H 01/28/21 13:40 Medications & Allergies - Medications Allergies/Adverse Reactions: Allergies No Known Allergies Allergy (Verified 01/27/21 15:55) Per Peg López Home Medications: Home Medications Medication Instructions Recorded Confirmed Last Taken Type No Known Home Medications [No 01/27/21 01/27/21 Unknown History Reported Home Medications] Active Medications: Generic Name Dose Route Start Last Admin Trade Name Freq PRN Reason Stop Dose Admin Acetaminophen 650 mg 01/22/21 23:03 Acetaminophen 325 Mg Tab PO Q4H PRN Pain MILD(1-3)/Fever >100.5/ANDERSEN Al Hydrox/Mg Hydrox/Simethicone 30 ml 01/25/21 01:08 01/25/21 01:31 Alum-Mag Hydroxide-Simethicone [phone]/5ml Oral Liqd 30 Ml PO 30 ml Q4H PRN Administration Indigestion Albumin Human 25 gm 01/27/21 09:35 Albumin Human 25% (25 Gm/100 Ml) Inj IV MELECIO PRN Hypotension Lipase/Protease/Amylase 1 each 01/27/21 11:37 Lipase 10,500/Protease 25,000/Amylase 43,750 (Units) Dr Singer FEEDTUBE PRN PRN For Clogged Feeding Tube Dexamethasone 10 mg 01/24/21 22:00 01/27/21 21:37 Dexamethasone 4 Mg/Ml Vial IV 01/31/21 22:01 10 mg Q24HR@2200 JACK Administration Famotidine 20 mg 01/27/21 10:00 01/28/21 09:55 Famotidine 20 Mg/2 Ml Inj IV 20 mg DAILY JACK Administration Fentanyl 50 mcg 01/25/21 11:32 01/28/21 06:10 Fentanyl 100 Mcg/2 Ml Inj IV 50 mcg Q10MIN PRN Administration ANALGESIA Heparin Sodium (Porcine) 5,000 unit 01/28/21 09:27 Heparin 10,000 Units/10 Ml Vial IV Q6H PRN Anti-Xa Assay < 0.1 units/ml Hydromorphone HCl 0.5 mg 01/22/21 23:03 01/25/21 07:15 Hydromorphone 1 Mg/1 Ml Inj IV 0.5 mg Q3H PRN Administration Pain , Severe (7-10) Hydrophilic Ointment 1 applic 01/25/21 13:27 Lip Therapy Vaseline TP Q2HR PRN Dry Lips Fentanyl Citrate 2,000 mcg in 100 mls @ 6.357 mls/hr 01/25/21 12:00 01/28/21 15:51 Fentanyl Drip Premix IV 4 mcg/kg/hr TITR JACK 25.428 mls/hr Administration Protocol 1 MCG/KG/HR Propofol 1,000 mg in 100 mls @ 3.814 mls/hr 01/25/21 14:00 01/28/21 18:29 Diprivan 10 Mg/Ml IV 50 mcg/kg/min TITR JACK 38.143 mls/hr Administration Protocol 5 MCG/KG/MIN Norepinephrine 4 mg in 250 mls @ 7.5 mls/hr 01/25/21 17:04 01/28/21 18:30 Levophed Drip 4 Mg/Ns 250 Ml IV 8 mcg/min TITR JACK 30 mls/hr Titration Protocol 2 MCG/MIN Midazolam HCl 100 mg/ Sodium 100 mls @ 1 mls/hr 01/26/21 11:00 01/28/21 17:13 Chloride IV 5 mg/hr TITR JACK 5 mls/hr Administration Protocol 1 MG/HR Sodium Chloride 100 mls @ 999 mls/hr 01/27/21 09:35 Nacl 0.9% IV MELECIO PRN Hypotension Amiodarone HCl 900 mg/ 500 mls @ 16.667 mls/hr 01/28/21 07:00 01/28/21 15:35 Dextrose IV 0.5 mg/min DIRECT JACK 16.667 mls/hr Infusion Protocol 0.5 MG/MIN Vasopressin 20 unit/ Sodium 101 mls @ 9.09 mls/hr 01/28/21 07:00 01/28/21 17:13 Chloride IV 0.03 units/min TITR JACK 9.09 mls/hr Administration Protocol 0.03 UNITS/MIN Heparin Sodium/Sodium Chloride 25,000 unit in 500 mls @ 30 mls/hr 01/28/21 11:00 01/28/21 18:47 Heparin/ 0.45% Nacl-25,000 Unit/500 Ml IV 0 units/hr TITR JACK 0 mls/hr Titration Protocol 1,500 UNITS/HR Metoclopramide HCl 10 mg 01/22/21 23:03 Metoclopramide 10 Mg/2 Ml Inj IV Q6H PRN Nausea And Vomiting Midazolam HCl 2 mg 01/25/21 16:13 Midazolam 2 Mg/2 Ml Inj IV Q10MIN PRN Sedation Multi-Ingred Cream/Lotion/Oil/Oint 1 applic 01/25/21 13:27 Mineral Oil/Petrolatum, White Ophth Oint 3.5 Gm OU Q4HR PRN Dry Eye(s) Ondansetron HCl 4 mg 01/22/21 23:03 Ondansetron 4 Mg/2 Ml Inj IV Q8H PRN Nausea And Vomiting Oxycodone/Acetaminophen 1 tab 01/22/21 23:03 01/24/21 22:36 Oxycodone /Acetaminophen 5-325mg Tab PO 1 tab Q6H PRN Administration Pain, Moderate (4-6) Senna/Docusate Sodium 1 tab 01/25/21 22:00 01/28/21 09:55 Sennosides/Docusate Sodium 8.6/50 Mg Tab FEEDTUBE 1 tab BID JACK Administration Simple Syrup 15 ml 01/27/21 11:37 Simple Syrup 15 Ml FEEDTUBE PRN PRN Hypoglycemia Simple Syrup 30 ml 01/27/21 11:37 Simple Syrup 15 Ml FEEDTUBE PRN PRN Hypoglycemia Sodium Bicarbonate 325 mg 01/27/21 11:37 Sodium Bicarbonate 325 Mg Tab FEEDTUBE PRN PRN For Clogged Feeding Tube Sodium Chloride 10 ml 01/22/21 23:45 01/28/21 09:53 Sodium Chloride 0.9% 10 Ml Flush Syringe IV 10 ml BID JACK Administration Sodium Chloride 10 ml 01/22/21 23:03 Sodium Chloride 0.9% 10 Ml Flush Syringe IV PRN PRN LINE FLUSH
[2021-01-28] MEDS: dexAMETHasone 4 MG/ML VIAL IV SCH (21:27)
[2021-01-29] MEDS: AMIODARONE 900 MG in DEXTROSE 5% IN WATER 482 ML IV SCH (00:26)
--- NOTE | 2021-01-29 01:34 | Progress Note ---
Subjective Date of service: 01/29/21 Principal diagnosis: Ac hypoxemic resp failure; COVID-19; Pneumonia; Sepsis; Morbid obesity Interval history: Assessment: Acute kidney injury Hyperkalemia Acidosis Azotemia Acute respiratory failure, status post intubation Covid pneumonia Septic shock Recommendations Start dialysis for clearance 01/27. Consent was obtained from for [employer]. Possible complications on dialysis were also explained in detail. Continue MWF Assess daily for needs for additional sessions UF Tolerated with hd daily lytes, strict i/os likey ATN due to COvid infection Renally dose medications Avoid nephrotoxins Subjective Principal diagnosis: Ac hypoxemic resp failure; COVID-19; Pneumonia; Sepsis; Morbid obesity Interval history: Remains intubated. resting in bed today Objective - Exam Narrative Exam: General: Sedated. Intubated HEENT: Oral mucosa moist Neck: Supple, no JVD Chest: Intubated. Mechanical breath sounds Heart: RRR, S1 and S2, no pericardial rub Abdomen: Soft, nontender, no renal bruit Extremity: No peripheral cyanosis, edema Neurological: Sedated. Dermatology: No skin rash Psych: Unable to assess Musculoskeletal: No joint effusion Objective - Vital Signs Vital signs: Vital Signs - 12hr 01/28/21 01/28/21 01/28/21 13:45 14:00 14:15 Temperature Pulse Rate 67 65 64 Pulse Rate [ From Monitor] Respiratory 30 H 30 H 30 H Rate Blood Pressure 137/57 129/52 138/61 O2 Sat by Pulse 92 92 92 Oximetry 01/28/21 01/28/21 01/28/21 14:30 14:45 15:00 Temperature Pulse Rate 63 64 62 Pulse Rate [ From Monitor] Respiratory 20 30 H 30 H Rate Blood Pressure 135/59 138/65 143/56 O2 Sat by Pulse 92 91 92 Oximetry 01/28/21 01/28/21 01/28/21 15:15 15:18 15:30 Temperature Pulse Rate 63 62 61 Pulse Rate [ From Monitor] Respiratory 30 H 30 H Rate Blood Pressure 139/58 143/56 139/58 O2 Sat by Pulse 92 96 96 Oximetry 01/28/21 01/28/21 01/28/21 15:45 16:00 16:15 Temperature Pulse Rate 62 63 63 Pulse Rate [ 63 From Monitor] Respiratory 30 H 30 H 30 H Rate Blood Pressure 133/57 133/57 137/55 O2 Sat by Pulse 92 93 93 Oximetry 01/28/21 01/28/21 01/28/21 16:30 16:45 16:58 Temperature 98.4 F Pulse Rate 63 63 Pulse Rate [ From Monitor] Respiratory 30 H 30 H Rate Blood Pressure 136/57 137/56 O2 Sat by Pulse 91 91 Oximetry 01/28/21 01/28/21 01/28/21 17:00 17:16 17:30 Temperature Pulse Rate 63 68 69 Pulse Rate [ From Monitor] Respiratory 30 H 22 30 H Rate Blood Pressure 136/60 119/41 127/50 O2 Sat by Pulse 91 86 83 L Oximetry 01/28/21 01/28/21 01/28/21 17:45 18:00 18:16 Temperature Pulse Rate 66 65 64 Pulse Rate [ From Monitor] Respiratory 30 H 30 H 30 H Rate Blood Pressure 132/59 136/61 139/59 O2 Sat by Pulse 92 92 94 Oximetry 01/28/21 01/28/21 01/28/21 18:30 20:00 20:06 Temperature 98.3 F Pulse Rate 64 61 Pulse Rate [ From Monitor] Respiratory 30 H Rate Blood Pressure 126/52 140/53 O2 Sat by Pulse 95 Oximetry 01/28/21 01/29/21 23:17 00:00 Temperature 98.9 F Pulse Rate 63 Pulse Rate [ From Monitor] Respiratory Rate Blood Pressure 138/55 O2 Sat by Pulse 96 Oximetry - Lab 01/28/21 10:03 01/28/21 10:03 Most recent lab results ABG pH 7.272 (7.320-7.450) L 01/28/21 04:00 ABG pCO2 46.6 mm Hg 01/26/21 08:30 ABG pO2 124.5 mm Hg (80.0-90.0) H 01/26/21 08:30 ABG HCO3 21.7 mmol/L (20.0-26.0) 01/26/21 08:30 ABG O2 Saturation 97.8 (0-100) 01/28/21 04:00 Calcium 7.7 mg/dL (8.4-10.2) L 01/28/21 10:03 Magnesium 2.50 mg/dL (1.7-2.3) H 01/28/21 13:40 Medications & Allergies - Medications Allergies/Adverse Reactions: Allergies No Known Allergies Allergy (Verified 01/27/21 15:55) Per Peg López Home Medications: Home Medications Medication Instructions Recorded Confirmed Last Taken Type No Known Home Medications [No 01/27/21 01/27/21 Unknown History Reported Home Medications] Active Medications: Generic Name Dose Route Start Last Admin Trade Name Freq PRN Reason Stop Dose Admin Acetaminophen 650 mg 01/22/21 23:03 Acetaminophen 325 Mg Tab PO Q4H PRN Pain MILD(1-3)/Fever >100.5/ANDERSEN Al Hydrox/Mg Hydrox/Simethicone 30 ml 01/25/21 01:08 01/25/21 01:31 Alum-Mag Hydroxide-Simethicone [phone]/5ml Oral Liqd 30 Ml PO 30 ml Q4H PRN Administration Indigestion Albumin Human 25 gm 01/27/21 09:35 Albumin Human 25% (25 Gm/100 Ml) Inj IV MELECIO PRN Hypotension Lipase/Protease/Amylase 1 each 01/27/21 11:37 Lipase 10,500/Protease 25,000/Amylase 43,750 (Units) Dr Singer FEEDTUBE PRN PRN For Clogged Feeding Tube Dexamethasone 10 mg 01/24/21 22:00 01/28/21 21:27 Dexamethasone 4 Mg/Ml Vial IV 01/31/21 22:01 10 mg Q24HR@2200 JACK Administration Famotidine 20 mg 01/27/21 10:00 01/28/21 09:55 Famotidine 20 Mg/2 Ml Inj IV 20 mg DAILY JACK Administration Fentanyl 50 mcg 01/25/21 11:32 01/28/21 06:10 Fentanyl 100 Mcg/2 Ml Inj IV 50 mcg Q10MIN PRN Administration ANALGESIA Heparin Sodium (Porcine) 5,000 unit 01/28/21 09:27 Heparin 10,000 Units/10 Ml Vial IV Q6H PRN Anti-Xa Assay < 0.1 units/ml Hydromorphone HCl 0.5 mg 01/22/21 23:03 01/25/21 07:15 Hydromorphone 1 Mg/1 Ml Inj IV 0.5 mg Q3H PRN Administration Pain , Severe (7-10) Hydrophilic Ointment 1 applic 01/25/21 13:27 Lip Therapy Vaseline TP Q2HR PRN Dry Lips Fentanyl Citrate 2,000 mcg in 100 mls @ 6.357 mls/hr 01/25/21 12:00 01/28/21 23:29 Fentanyl Drip Premix IV 4 mcg/kg/hr TITR JACK 25.428 mls/hr Administration Protocol 1 MCG/KG/HR Propofol 1,000 mg in 100 mls @ 3.814 mls/hr 01/25/21 14:00 01/28/21 23:29 Diprivan 10 Mg/Ml IV 50 mcg/kg/min TITR JACK 38.143 mls/hr Administration Protocol 5 MCG/KG/MIN Norepinephrine 4 mg in 250 mls @ 7.5 mls/hr 01/25/21 17:04 01/29/21 01:28 Levophed Drip 4 Mg/Ns 250 Ml IV 2 mcg/min TITR JACK 7.5 mls/hr Titration Protocol 2 MCG/MIN Midazolam HCl 100 mg/ Sodium 100 mls @ 1 mls/hr 01/26/21 11:00 01/28/21 17:13 Chloride IV 5 mg/hr TITR JACK 5 mls/hr Administration Protocol 1 MG/HR Sodium Chloride 100 mls @ 999 mls/hr 01/27/21 09:35 Nacl 0.9% IV MELECIO PRN Hypotension Amiodarone HCl 900 mg/ 500 mls @ 16.667 mls/hr 01/28/21 07:00 01/29/21 00:26 Dextrose IV 0.5 mg/min DIRECT JACK 16.667 mls/hr Administration Protocol 0.5 MG/MIN Vasopressin 20 unit/ Sodium 101 mls @ 9.09 mls/hr 01/28/21 07:00 01/28/21 17:13 Chloride IV 0.03 units/min TITR JACK 9.09 mls/hr Administration Protocol 0.03 UNITS/MIN Heparin Sodium/Sodium Chloride 25,000 unit in 500 mls @ 30 mls/hr 01/28/21 11:00 01/28/21 20:45 Heparin/ 0.45% Nacl-25,000 Unit/500 Ml IV 1,250 units/hr TITR JACK 25 mls/hr Titration Protocol 1,500 UNITS/HR Metoclopramide HCl 10 mg 01/22/21 23:03 Metoclopramide 10 Mg/2 Ml Inj IV Q6H PRN Nausea And Vomiting Midazolam HCl 2 mg 01/25/21 16:13 Midazolam 2 Mg/2 Ml Inj IV Q10MIN PRN Sedation Multi-Ingred Cream/Lotion/Oil/Oint 1 applic 01/25/21 13:27 Mineral Oil/Petrolatum, White Ophth Oint 3.5 Gm OU Q4HR PRN Dry Eye(s) Ondansetron HCl 4 mg 01/22/21 23:03 Ondansetron 4 Mg/2 Ml Inj IV Q8H PRN Nausea And Vomiting Oxycodone/Acetaminophen 1 tab 01/22/21 23:03 01/24/21 22:36 Oxycodone /Acetaminophen 5-325mg Tab PO 1 tab Q6H PRN Administration Pain, Moderate (4-6) Senna/Docusate Sodium 1 tab 01/25/21 22:00 01/28/21 21:28 Sennosides/Docusate Sodium 8.6/50 Mg Tab FEEDTUBE 1 tab BID JACK Administration Simple Syrup 15 ml 01/27/21 11:37 Simple Syrup 15 Ml FEEDTUBE PRN PRN Hypoglycemia Simple Syrup 30 ml 01/27/21 11:37 Simple Syrup 15 Ml FEEDTUBE PRN PRN Hypoglycemia Sodium Bicarbonate 325 mg 01/27/21 11:37 Sodium Bicarbonate 325 Mg Tab FEEDTUBE PRN PRN For Clogged Feeding Tube Sodium Chloride 10 ml 01/22/21 23:45 01/28/21 21:26 Sodium Chloride 0.9% 10 Ml Flush Syringe IV 10 ml BID JACK Administration Sodium Chloride 10 ml 01/22/21 23:03 Sodium Chloride 0.9% 10 Ml Flush Syringe IV PRN PRN LINE FLUSH
[2021-01-29] MEDS: fentaNYL DRIP Premix 2,000 MCG/100 ML BAG IV SCH ×4 (03:17→15:41)
[2021-01-29] MEDS: VASOPRESSIN 20 UNIT in SODIUM CHLORIDE 0.9% 100 ML IV SCH ×2 (03:38→15:41)
[2021-01-29] MEDS: HEPARIN/ 0.45% NACL DRIP 25,000 UNIT/500 ML BAG IV SCH (04:33)
[2021-01-29] MEDS: SENNOSIDES/DOCUSATE SODIUM 8.6/50 MG TAB FEEDTUBE SCH ×2 (09:26→21:59)
[2021-01-29] MEDS: FAMOTIDINE 20 MG/2 ML INJ IV SCH (09:26)
--- NOTE | 2021-01-29 10:41 | Progress Note ---
Assessment and Plan Cultures: SARS CoV2 PCR: positive 01/22/2021 blood culture: No growth 01/25/2021 endotracheal aspirate culture: Mold, sent to reference laboratory for further evaluation. A/P: 55/M with obesity, admitted with: #Shock: likely secondary to severe COVID-19. #Bilateral pneumonia: Secondary to COVID-19. Very high d-dimer. #Mold in sputum: ?colonization. Awaiting ID, meanwhile, initiated PO voriconazole given steroids and Actemra. Avoid ABLC given renal failure. #Acute hypoxic respiratory failure: Failed BiPAP. Requiring mechanical ventilation. #SEDRICK: creatinine elevated, now on HD per nephrology. #Morbid obesity Recs: -Actemra administered 01/26/2021 -continue IV/PO Dexamethasone -completed empiric abx -initiated PO voriconazole given steroids and Actemra. Avoid ABLC given renal failure -prophylactic anticoagulation based on d-dimer per hospital protocol. DVT scan negative. -trend ferritin, LDH, d-dimer, CRP every 2-3 days for risk stratification and to assess disease progression -extremely poor prognosis Misael Dudley MD, FACP [facility] O: [phone] F: [phone] Subjective Date of service: 01/29/21 Principal diagnosis: Ac hypoxemic resp failure; COVID-19; Pneumonia; Sepsis; Morbid obesity Interval history: No fever. Remains on the vent, 75% FiO2, 18 of PEEP. On pressors: Norepinephrine and vasopressin. Renal function has continued to decline, nephrology has initiated dialysis. On heparin drip Objective - Exam Narrative Exam: Physical Exam (reviewed in chart to minimize risk of transmission) Constitutional: deferred Head, Ears, Nose: deferred Eyes: deferred Neck: deferred Oral: deferred Cardiovascular: deferred Respiratory: deferred GI: deferred Musculoskeletal: deferred Skin: deferred Hem/Lymphatic: deferred Psych: deferred Neurological: deferred - Constitutional Vitals: Vital Signs Temp Pulse Resp BP Pulse Ox 97.3 F L 56 L 30 H 114/51 94 01/29/21 07:37 01/29/21 10:00 01/29/21 10:00 01/29/21 10:00 01/29/21 10:00 Temperature -Last 24 Hours Temperature 97.3 F Temperature 98.1 F Temperature 98.9 F Temperature 98.3 F Temperature 98.4 F Temperature 99.3 F - Labs CBC & Chem 7: 01/28/21 10:03 01/28/21 10:03 Labs: Abnormal lab results 01/28/21 01/28/21 01/28/21 Range/Units 10:03 10:03 10:03 Plt Count 104 L (140-440) K/mm3 PT 17.3 H (12.2-14.9) Sec. INR 1.36 H (0.87-1.13) Heparin Anti-Xa Level (0.3-0.7) U.I./ml ABG pH (7.320-7.450) POC ABG pCO2 (32.0-48.0) mmHg ABG Sodium (136.0-145.0) mmol/L ABG Potassium (3.40-4.50) mmol/L ABG Glucose (65-95) mg/dL Potassium 5.2 H (3.6-5.0) mmol/L BUN 69 H (9-20) mg/dL Creatinine 5.6 H (0.8-1.3) mg/dL Glucose 220 H (75-100) mg/dL POC Glucose (70-105) mg/dL Calcium 7.7 L (8.4-10.2) mg/dL Magnesium (1.7-2.3) mg/dL TSH (0.270-4.200) mlU/mL Arterial Blood Glucose (65-95) mg/dL Arterial Blood Ionized Calcium (4.6-5.3) mg/dL 01/28/21 01/28/21 01/28/21 Range/Units 10:03 11:34 13:40 Plt Count (140-440) K/mm3 PT (12.2-14.9) Sec. INR (0.87-1.13) Heparin Anti-Xa Level (0.3-0.7) U.I./ml ABG pH (7.320-7.450) POC ABG pCO2 (32.0-48.0) mmHg ABG Sodium (136.0-145.0) mmol/L ABG Potassium (3.40-4.50) mmol/L ABG Glucose (65-95) mg/dL Potassium (3.6-5.0) mmol/L BUN (9-20) mg/dL Creatinine (0.8-1.3) mg/dL Glucose (75-100) mg/dL POC Glucose 221 H (70-105) mg/dL Calcium (8.4-10.2) mg/dL Magnesium 2.50 H (1.7-2.3) mg/dL TSH 0.013 L (0.270-4.200) mlU/mL Arterial Blood Glucose (65-95) mg/dL Arterial Blood Ionized Calcium (4.6-5.3) mg/dL 01/28/21 01/28/21 01/29/21 Range/Units 15:31 18:02 04:00 Plt Count (140-440) K/mm3 PT (12.2-14.9) Sec. INR (0.87-1.13) Heparin Anti-Xa Level 1.21 H (0.3-0.7) U.I./ml ABG pH 7.229 L (7.320-7.450) POC ABG pCO2 48.8 H (32.0-48.0) mmHg ABG Sodium 135.3 L (136.0-145.0) mmol/L ABG Potassium 5.2 H (3.40-4.50) mmol/L ABG Glucose 264 H (65-95) mg/dL Potassium (3.6-5.0) mmol/L BUN (9-20) mg/dL Creatinine (0.8-1.3) mg/dL Glucose (75-100) mg/dL POC Glucose 215 H (70-105) mg/dL Calcium (8.4-10.2) mg/dL Magnesium (1.7-2.3) mg/dL TSH (0.270-4.200) mlU/mL Arterial Blood Glucose 264 H (65-95) mg/dL Arterial Blood Ionized Calcium 4.0 L (4.6-5.3) mg/dL 01/29/21 Range/Units 04:30 Plt Count (140-440) K/mm3 PT (12.2-14.9) Sec. INR (0.87-1.13) Heparin Anti-Xa Level 0.81 H (0.3-0.7) U.I./ml ABG pH (7.320-7.450) POC ABG pCO2 (32.0-48.0) mmHg ABG Sodium (136.0-145.0) mmol/L ABG Potassium (3.40-4.50) mmol/L ABG Glucose (65-95) mg/dL Potassium (3.6-5.0) mmol/L BUN (9-20) mg/dL Creatinine (0.8-1.3) mg/dL Glucose (75-100) mg/dL POC Glucose (70-105) mg/dL Calcium (8.4-10.2) mg/dL Magnesium (1.7-2.3) mg/dL TSH (0.270-4.200) mlU/mL Arterial Blood Glucose (65-95) mg/dL Arterial Blood Ionized Calcium (4.6-5.3) mg/dL
[2021-01-29] MEDS: METOCLOPRAMIDE 10 MG/2 ML INJ IV SCH ×3 (11:27→21:59)
--- NOTE | 2021-01-29 12:13 | Progress Note ---
Assessment and Plan Acute hypoxemic respiratory failure COVID-19 infection Multifocal pneumonia Hypernatremia Sepsis Morbid obesity with BMI of 40.0-44.9, adult - Reglan started - RN to lighten sedation for RASS -2 to -3 - HD/UF today per nephrology prescription for toxin and volume clearance - tentatively transition to oral Amiodarone - wean Vasopressors for target MAP > 65 mmHg - continue care as below otherwise; - Daily SAT and SBT assessment as tolerated - continue to wean supplemental oxygen for target O2 sat's > 92% acutely - VAP bundle addressed - continue lung protective strategies - continue bronchodilators with pulmonary hygiene per RT - wean per pulmonary driven protocols otherwise - avoid nephrotoxins, renally dose all medications - continue to avoid benzodiazepine's, reduce the possibility of delirium - complete AB's per ID rec's - prn analgesia per CPOT score - Maintenance of sleep-wake cycle, avoid delirium - enteral nutritional support at goal rate as tolerated - G.I. & VTE prophylaxis - PT/OT/ROM exercises - continue mobility protocols for pressure ulcer prophylaxis - Monitor hemodynamics closely - continue other care per attending / other consultants - discharge planning ongoing concurrently COVID SPECIFIC INTERVENTIONS - Remdesivir as per ID/Pulmonary developed protocols (receiving) - continue systemic steroids for severe COVID-19 infection (Dexamethasone) - follow repeat COVID tests results - zinc and vitamin C supplementation - Monitor inflammatory markers per facility protocol - ferritin, Ddimer, CRP - therapeutic anticoagulation per system Protocol based on d-dimer and clinical considerations (VTE prophylaxis doses now) - Continue contact and airborne isolation .... Re-evaluate in am & prn CONDITION: CRITICAL PROGNOSIS: GUARDED CODE STATUS: FULL CODE The high probability of a clinically significant, sudden or life-threatening deterioration of the [respiratory, cardiovascular & neurologic] system(s) required my full and direct attention, intervention and personal management. The aggregate critical care time was [32] minutes without overlap. Time includes spent on; [x] Data Review and interpretation [x] Patient assessment and monitoring of vital signs [x] Documentation [x] Medication orders and management Subjective Date of service: 01/29/21 Principal diagnosis: Ac hypoxemic resp failure; COVID-19; Pneumonia; Sepsis; Morbid obesity Interval history: Patient is seen today for: Acute hypoxemic respiratory failure; COVID-1 9infection; Multifocal pneumonia; Hypernatremia; Sepsis; Morbid obesity Seen and examined at bedside; 24hour events reviewed; nursing and respiratory care staff consulted; no adverse overnight events reported to me; resting in bed; remains on MVS; gastric residuals high overnight and tube feeds held; no emesis or overt aspiration reported; no high grade fevers Objective Vital Signs - 12hr 01/29/21 01/29/21 01/29/21 00:16 00:30 00:45 Temperature Pulse Rate 60 60 58 L Pulse Rate [ From Monitor] Respiratory 30 H 30 H 30 H Rate Blood Pressure 131/55 126/54 135/58 O2 Sat by Pulse 95 95 95 Oximetry O2 Sat by Pulse Oximetry [ Anterior Bilateral] 01/29/21 01/29/21 01/29/21 01:00 01:15 01:30 Temperature Pulse Rate 57 L 57 L 60 Pulse Rate [ From Monitor] Respiratory 30 H 30 H 30 H Rate Blood Pressure 135/57 134/59 134/59 O2 Sat by Pulse 94 94 Oximetry O2 Sat by Pulse Oximetry [ Anterior Bilateral] 01/29/21 01/29/21 01/29/21 01:45 02:00 02:15 Temperature Pulse Rate 61 61 61 Pulse Rate [ From Monitor] Respiratory 30 H 30 H 30 H Rate Blood Pressure 104/45 106/49 107/54 O2 Sat by Pulse 94 95 95 Oximetry O2 Sat by Pulse Oximetry [ Anterior Bilateral] 01/29/21 01/29/21 01/29/21 02:30 02:34 02:45 Temperature Pulse Rate 59 L 61 60 Pulse Rate [ From Monitor] Respiratory 30 H 30 H Rate Blood Pressure 110/54 111/53 O2 Sat by Pulse 94 95 Oximetry O2 Sat by Pulse Oximetry [ Anterior Bilateral] 01/29/21 01/29/21 01/29/21 03:00 03:15 03:30 Temperature Pulse Rate 59 L 58 L 59 L Pulse Rate [ From Monitor] Respiratory 30 H 30 H 30 H Rate Blood Pressure 112/57 110/54 110/51 O2 Sat by Pulse 95 94 95 Oximetry O2 Sat by Pulse Oximetry [ Anterior Bilateral] 01/29/21 01/29/21 01/29/21 03:45 04:00 04:15 Temperature 98.1 F Pulse Rate 59 L 61 60 Pulse Rate [ From Monitor] Respiratory 30 H 30 H 30 H Rate Blood Pressure 97/45 88/40 83/45 O2 Sat by Pulse 93 95 Oximetry O2 Sat by Pulse Oximetry [ Anterior Bilateral] 01/29/21 01/29/21 01/29/21 04:20 04:30 04:45 Temperature Pulse Rate 59 L 58 L 57 L Pulse Rate [ From Monitor] Respiratory 30 H 30 H Rate Blood Pressure 83/45 100/58 109/54 O2 Sat by Pulse 96 94 Oximetry O2 Sat by Pulse Oximetry [ Anterior Bilateral] 01/29/21 01/29/21 01/29/21 05:00 05:15 05:30 Temperature Pulse Rate 57 L 56 L 57 L Pulse Rate [ From Monitor] Respiratory 30 H 30 H 30 H Rate Blood Pressure 107/55 112/56 110/54 O2 Sat by Pulse 94 94 94 Oximetry O2 Sat by Pulse Oximetry [ Anterior Bilateral] 01/29/21 01/29/21 01/29/21 05:45 06:00 06:15 Temperature Pulse Rate 57 L 57 L 58 L Pulse Rate [ From Monitor] Respiratory 30 H 30 H 30 H Rate Blood Pressure 110/61 107/50 110/60 O2 Sat by Pulse 94 94 93 Oximetry O2 Sat by Pulse Oximetry [ Anterior Bilateral] 01/29/21 01/29/21 01/29/21 06:30 06:45 07:00 Temperature Pulse Rate 57 L 57 L 57 L Pulse Rate [ From Monitor] Respiratory 30 H 30 H 30 H Rate Blood Pressure 106/58 105/52 109/50 O2 Sat by Pulse 90 94 94 Oximetry O2 Sat by Pulse Oximetry [ Anterior Bilateral] 01/29/21 01/29/21 01/29/21 07:15 07:30 07:37 Temperature 97.3 F L Pulse Rate 57 L 56 L Pulse Rate [ From Monitor] Respiratory 30 H 30 H Rate Blood Pressure 107/53 107/52 O2 Sat by Pulse 93 93 Oximetry O2 Sat by Pulse Oximetry [ Anterior Bilateral] 01/29/21 01/29/21 01/29/21 07:45 08:00 08:10 Temperature Pulse Rate 55 L 57 L 56 L Pulse Rate [ 56 L From Monitor] Respiratory 30 H 30 H Rate Blood Pressure 111/57 112/54 108/58 O2 Sat by Pulse 94 94 96 Oximetry O2 Sat by Pulse Oximetry [ Anterior Bilateral] 01/29/21 01/29/21 01/29/21 08:15 08:30 08:45 Temperature Pulse Rate 56 L 58 L 55 L Pulse Rate [ From Monitor] Respiratory 30 H 30 H 30 H Rate Blood Pressure 108/58 111/56 110/51 O2 Sat by Pulse 93 94 94 Oximetry O2 Sat by Pulse Oximetry [ Anterior Bilateral] 01/29/21 01/29/21 01/29/21 09:00 09:15 09:30 Temperature Pulse Rate 55 L 55 L 55 L Pulse Rate [ From Monitor] Respiratory 30 H 30 H 30 H Rate Blood Pressure 109/52 110/59 110/52 O2 Sat by Pulse 95 95 94 Oximetry O2 Sat by Pulse Oximetry [ Anterior Bilateral] 01/29/21 01/29/21 01/29/21 09:45 10:00 10:15 Temperature Pulse Rate 56 L 56 L 56 L Pulse Rate [ From Monitor] Respiratory 30 H 30 H 30 H Rate Blood Pressure 108/51 114/51 111/59 O2 Sat by Pulse 94 94 93 Oximetry O2 Sat by Pulse Oximetry [ Anterior Bilateral] 01/29/21 01/29/21 01/29/21 10:30 10:45 11:00 Temperature 96.8 F L Pulse Rate 56 L 55 L 55 L Pulse Rate [ From Monitor] Respiratory 30 H 30 H 30 H Rate Blood Pressure 114/57 115/54 113/58 O2 Sat by Pulse 93 94 93 Oximetry O2 Sat by Pulse 75 L Oximetry [ Anterior Bilateral] 01/29/21 01/29/21 01/29/21 11:13 11:15 11:30 Temperature Pulse Rate 56 L 58 L 56 L Pulse Rate [ From Monitor] Respiratory 30 H 30 H Rate Blood Pressure 108/58 95/46 95/46 O2 Sat by Pulse 95 92 93 Oximetry O2 Sat by Pulse Oximetry [ Anterior Bilateral] 01/29/21 01/29/21 01/29/21 11:45 12:00 12:06 Temperature 96.8 F L Pulse Rate 56 L 58 L Pulse Rate [ From Monitor] Respiratory 30 H 30 H Rate Blood Pressure 130/60 127/50 O2 Sat by Pulse 91 89 Oximetry O2 Sat by Pulse Oximetry [ Anterior Bilateral] Constitutional: no acute distress (sedated), other (middle aged obese male with mildly increased respiratory effort at rest on MVS) Eyes: non-icteric ENT: oropharynx moist, other (ETT 24 cm BRE) Neck: supple, no lymphadenopathy, no JVD, other (large circumference) Effort: mildly labored Ascultation: Bilateral: diminished breath sounds, rales Percussion: Bilateral: not dull Cardiovascular: regular rate and rhythm Gastrointestinal: normoactive bowel sounds, soft, non-tender, non-distended (protuberant) Integumentary: normal Extremities: no cyanosis, no edema, pink and warm, pulses normal Neurologic: normal mental status, pupils equal and round, unable to assess (sedated) Psychiatric: other (unable top assess re: AMS) CBC and BMP: 01/30/21 05:00 01/30/21 05:00 ABG, PT/INR, D-dimer: ABG ABG pH 7.229 (7.320-7.450) L 01/29/21 04:00 POC ABG pCO2 48.8 mmHg (32.0-48.0) H 01/29/21 04:00 ABG pCO2 46.6 mm Hg 01/26/21 08:30 POC ABG pO2 89.0 mmHg (83-108) 01/29/21 04:00 ABG pO2 124.5 mm Hg (80.0-90.0) H 01/26/21 08:30 POC ABG HCO3 19.9 01/29/21 04:00 ABG O2 Saturation 96.1 (0-100) 01/29/21 04:00 PT/INR, D-dimer PT 17.3 Sec. (12.2-14.9) H 01/28/21 10:03 INR 1.36 (0.87-1.13) H 01/28/21 10:03 D-Dimer > 30164 ng/mlDDU (0-234) H 01/25/21 06:22 Abnormal lab findings: Abnormal Labs 01/22/21 01/22/21 01/22/21 11:06 11:06 11:06 WBC RBC Hgb Hct Plt Count Lymph % (Auto) Lymph # (Auto) [place] # (Auto) Seg Neutrophils % Seg Neuts % (Manual) Lymphocytes % (Manual) Nucleated RBC % Seg Neutrophils # Seg Neutrophils # Man Lymphocytes # (Manual) Monocytes # (Manual) PT INR D-Dimer 2625.11 H Heparin Anti-Xa Level ABG pH POC ABG pCO2 POC ABG pO2 ABG pO2 ABG Base Excess ABG Oxyhemoglobin ABG Sodium ABG Potassium ABG Chloride ABG Glucose Carboxyhemoglobin Sodium Potassium Chloride Carbon Dioxide BUN Creatinine Glucose 130 H POC Glucose Hemoglobin A1c Lactic Acid Calcium Magnesium Ferritin 557.5 H Total Bilirubin AST Alkaline Phosphatase Lactate Dehydrogenase 799 H Total Creatine Kinase C-Reactive Protein 3.30 H Albumin Triglycerides TSH Arterial Blood Glucose Arterial Blood Ionized Calcium Coronavirus (PCR) 01/22/21 01/22/21 01/22/21 11:06 11:06 11:06 WBC 19.2 H RBC 5.63 H Hgb 15.8 H Hct 49.0 H Plt Count Lymph % (Auto) Lymph # (Auto) [place] # (Auto) Seg Neutrophils % Seg Neuts % (Manual) 92.0 H Lymphocytes % (Manual) 1.0 L Nucleated RBC % 1.0 H Seg Neutrophils # Seg Neutrophils # Man 17.7 H Lymphocytes # (Manual) 0.2 L Monocytes # (Manual) 1.0 H PT INR D-Dimer Heparin Anti-Xa Level ABG pH POC ABG pCO2 POC ABG pO2 ABG pO2 ABG Base Excess ABG Oxyhemoglobin ABG Sodium ABG Potassium ABG Chloride ABG Glucose Carboxyhemoglobin Sodium Potassium 3.3 L Chloride Carbon Dioxide 20 L BUN 32 H Creatinine Glucose 130 H POC Glucose Hemoglobin A1c Lactic Acid 4.20 H* Calcium Magnesium Ferritin Total Bilirubin AST Alkaline Phosphatase Lactate Dehydrogenase Total Creatine Kinase C-Reactive Protein Albumin 2.9 L Triglycerides TSH Arterial Blood Glucose Arterial Blood Ionized Calcium Coronavirus (PCR) 01/22/21 01/22/21 01/23/21 11:06 12:03 05:29 WBC 19.0 H RBC 5.24 H Hgb 15.3 H Hct 46.0 H Plt Count Lymph % (Auto) 4.4 L Lymph # (Auto) 0.8 L [place] # (Auto) 1.2 H Seg Neutrophils % 89.1 H Seg Neuts % (Manual) Lymphocytes % (Manual) Nucleated RBC % Seg Neutrophils # 16.9 H Seg Neutrophils # Man Lymphocytes # (Manual) Monocytes # (Manual) PT INR D-Dimer Heparin Anti-Xa Level ABG pH POC ABG pCO2 30.7 L POC ABG pO2 61.4 L ABG pO2 ABG Base Excess ABG Oxyhemoglobin 90.5 L ABG Sodium ABG Potassium ABG Chloride ABG Glucose Carboxyhemoglobin 1.7 H Sodium Potassium Chloride Carbon Dioxide BUN Creatinine Glucose POC Glucose Hemoglobin A1c 6.2 H Lactic Acid Calcium Magnesium Ferritin Total Bilirubin AST Alkaline Phosphatase Lactate Dehydrogenase Total Creatine Kinase C-Reactive Protein Albumin Triglycerides TSH Arterial Blood Glucose Arterial Blood Ionized Calcium Coronavirus (PCR) 01/23/21 01/23/21 01/23/21 05:29 09:00 16:55 WBC RBC Hgb Hct Plt Count Lymph % (Auto) Lymph # (Auto) [place] # (Auto) Seg Neutrophils % Seg Neuts % (Manual) Lymphocytes % (Manual) Nucleated RBC % Seg Neutrophils # Seg Neutrophils # Man Lymphocytes # (Manual) Monocytes # (Manual) PT INR D-Dimer Heparin Anti-Xa Level ABG pH POC ABG pCO2 POC ABG pO2 ABG pO2 ABG Base Excess ABG Oxyhemoglobin ABG Sodium ABG Potassium ABG Chloride ABG Glucose Carboxyhemoglobin Sodium Potassium 3.5 L Chloride Carbon Dioxide BUN 29 H 27 H Creatinine Glucose 132 H 103 H POC Glucose Hemoglobin A1c Lactic Acid Calcium Magnesium Ferritin Total Bilirubin AST Alkaline Phosphatase Lactate Dehydrogenase Total Creatine Kinase C-Reactive Protein Albumin 2.9 L 2.9 L Triglycerides TSH Arterial Blood Glucose Arterial Blood Ionized Calcium Coronavirus (PCR) Positive A 01/24/21 01/24/21 01/24/21 05:50 20:20 20:20 WBC RBC Hgb Hct Plt Count Lymph % (Auto) Lymph # (Auto) [place] # (Auto) Seg Neutrophils % Seg Neuts % (Manual) Lymphocytes % (Manual) Nucleated RBC % Seg Neutrophils # Seg Neutrophils # Man Lymphocytes # (Manual) Monocytes # (Manual) PT INR D-Dimer Heparin Anti-Xa Level ABG pH POC ABG pCO2 POC ABG pO2 ABG pO2 ABG Base Excess ABG Oxyhemoglobin ABG Sodium ABG Potassium ABG Chloride ABG Glucose Carboxyhemoglobin Sodium 148 H Potassium 5.3 H D Chloride 109.3 H Carbon Dioxide BUN 26 H Creatinine 0.7 L Glucose 130 H POC Glucose Hemoglobin A1c Lactic Acid Calcium Magnesium Ferritin 1031.0 H Total Bilirubin AST 45 H Alkaline Phosphatase Lactate Dehydrogenase 1511 H Total Creatine Kinase C-Reactive Protein 12.00 H Albumin 2.9 L Triglycerides TSH Arterial Blood Glucose Arterial Blood Ionized Calcium Coronavirus (PCR) 01/24/21 01/25/21 01/25/21 20:20 06:22 06:22 WBC RBC Hgb Hct Plt Count Lymph % (Auto) Lymph # (Auto) [place] # (Auto) Seg Neutrophils % Seg Neuts % (Manual) Lymphocytes % (Manual) Nucleated RBC % Seg Neutrophils # Seg Neutrophils # Man Lymphocytes # (Manual) Monocytes # (Manual) PT INR D-Dimer > 55512 H > 92311 H Heparin Anti-Xa Level ABG pH POC ABG pCO2 POC ABG pO2 ABG pO2 ABG Base Excess ABG Oxyhemoglobin ABG Sodium ABG Potassium ABG Chloride ABG Glucose Carboxyhemoglobin Sodium 153 H Potassium 3.4 L D Chloride 116.1 H Carbon Dioxide 21 L BUN 27 H Creatinine Glucose 133 H POC Glucose Hemoglobin A1c Lactic Acid Calcium Magnesium Ferritin Total Bilirubin 1.30 H AST 50 H Alkaline Phosphatase 159 H Lactate Dehydrogenase Total Creatine Kinase C-Reactive Protein Albumin 2.9 L Triglycerides TSH Arterial Blood Glucose Arterial Blood Ionized Calcium Coronavirus (PCR) 01/25/21 01/25/21 01/25/21 06:22 09:35 11:25 WBC RBC Hgb Hct Plt Count Lymph % (Auto) Lymph # (Auto) [place] # (Auto) Seg Neutrophils % Seg Neuts % (Manual) Lymphocytes % (Manual) Nucleated RBC % Seg Neutrophils # Seg Neutrophils # Man Lymphocytes # (Manual) Monocytes # (Manual) PT INR D-Dimer Heparin Anti-Xa Level ABG pH 7.453 H 7.228 L POC ABG pCO2 60.0 H POC ABG pO2 44.9 L 111.7 H ABG pO2 ABG Base Excess ABG Oxyhemoglobin 81.4 L ABG Sodium 153.1 H 150.9 H ABG Potassium 3.3 L ABG Chloride 116.0 H 117.0 H ABG Glucose 151 H 155 H Carboxyhemoglobin Sodium Potassium Chloride Carbon Dioxide BUN Creatinine Glucose POC Glucose Hemoglobin A1c Lactic Acid Calcium Magnesium Ferritin Total Bilirubin AST Alkaline Phosphatase Lactate Dehydrogenase Total Creatine Kinase C-Reactive Protein 16.80 H Albumin Triglycerides TSH Arterial Blood Glucose 151 H 155 H Arterial Blood Ionized Calcium Coronavirus (PCR) 01/25/21 01/26/21 01/26/21 21:00 07:32 07:39 WBC RBC Hgb Hct Plt Count Lymph % (Auto) Lymph # (Auto) [place] # (Auto) Seg Neutrophils % Seg Neuts % (Manual) Lymphocytes % (Manual) Nucleated RBC % Seg Neutrophils # Seg Neutrophils # Man Lymphocytes # (Manual) Monocytes # (Manual) PT INR D-Dimer Heparin Anti-Xa Level ABG pH POC ABG pCO2 POC ABG pO2 68.5 L ABG pO2 ABG Base Excess ABG Oxyhemoglobin 91.3 L ABG Sodium 151.9 H ABG Potassium ABG Chloride 117.0 H ABG Glucose 140 H Carboxyhemoglobin Sodium 151 H Potassium Chloride 116.7 H Carbon Dioxide 20 L BUN 59 H Creatinine 3.4 H D Glucose 121 H POC Glucose Hemoglobin A1c Lactic Acid Calcium Magnesium Ferritin 1921.0 H Total Bilirubin AST 45 H Alkaline Phosphatase 137 H Lactate Dehydrogenase 1559 H Total Creatine Kinase C-Reactive Protein 20.90 H Albumin 2.3 L Triglycerides TSH Arterial Blood Glucose 140 H Arterial Blood Ionized Calcium Coronavirus (PCR) 01/26/21 01/26/21 01/26/21 08:30 17:55 20:39 WBC RBC Hgb Hct Plt Count Lymph % (Auto) Lymph # (Auto) [place] # (Auto) Seg Neutrophils % Seg Neuts % (Manual) Lymphocytes % (Manual) Nucleated RBC % Seg Neutrophils # Seg Neutrophils # Man Lymphocytes # (Manual) Monocytes # (Manual) PT INR D-Dimer Heparin Anti-Xa Level ABG pH 7.287 L POC ABG pCO2 POC ABG pO2 ABG pO2 124.5 H ABG Base Excess -5.0 L ABG Oxyhemoglobin ABG Sodium ABG Potassium ABG Chloride ABG Glucose Carboxyhemoglobin Sodium 152 H Potassium 6.0 H D Chloride 117.2 H Carbon Dioxide 15 L BUN 80 H Creatinine 5.6 H D Glucose 156 H POC Glucose 141 H Hemoglobin A1c Lactic Acid Calcium 7.4 L Magnesium Ferritin Total Bilirubin AST Alkaline Phosphatase Lactate Dehydrogenase Total Creatine Kinase C-Reactive Protein Albumin Triglycerides TSH Arterial Blood Glucose Arterial Blood Ionized Calcium Coronavirus (PCR) 01/26/21 01/27/21 01/27/21 23:14 02:55 05:00 WBC RBC Hgb Hct Plt Count Lymph % (Auto) Lymph # (Auto) [place] # (Auto) Seg Neutrophils % Seg Neuts % (Manual) Lymphocytes % (Manual) Nucleated RBC % Seg Neutrophils # Seg Neutrophils # Man Lymphocytes # (Manual) Monocytes # (Manual) PT INR D-Dimer Heparin Anti-Xa Level ABG pH 7.215 L POC ABG pCO2 48.9 H POC ABG pO2 143.3 H ABG pO2 ABG Base Excess ABG Oxyhemoglobin ABG Sodium 150.0 H ABG Potassium 5.0 H ABG Chloride 118.0 H ABG Glucose 180 H Carboxyhemoglobin Sodium 154 H Potassium 5.3 H Chloride 117.2 H Carbon Dioxide 19 L BUN 92 H Creatinine 6.4 H Glucose 175 H POC Glucose 148 H Hemoglobin A1c Lactic Acid Calcium 7.9 L Magnesium Ferritin Total Bilirubin AST Alkaline Phosphatase Lactate Dehydrogenase Total Creatine Kinase C-Reactive Protein Albumin Triglycerides TSH Arterial Blood Glucose 180 H Arterial Blood Ionized Calcium 4.5 L Coronavirus (PCR) 01/27/21 01/27/21 01/27/21 05:00 05:14 11:42 WBC RBC Hgb Hct Plt Count Lymph % (Auto) Lymph # (Auto) [place] # (Auto) Seg Neutrophils % Seg Neuts % (Manual) Lymphocytes % (Manual) Nucleated RBC % Seg Neutrophils # Seg Neutrophils # Man Lymphocytes # (Manual) Monocytes # (Manual) PT INR D-Dimer Heparin Anti-Xa Level ABG pH POC ABG pCO2 POC ABG pO2 ABG pO2 ABG Base Excess ABG Oxyhemoglobin ABG Sodium ABG Potassium ABG Chloride ABG Glucose Carboxyhemoglobin Sodium Potassium Chloride Carbon Dioxide BUN Creatinine Glucose POC Glucose 159 H 171 H Hemoglobin A1c Lactic Acid Calcium Magnesium Ferritin Total Bilirubin AST Alkaline Phosphatase Lactate Dehydrogenase Total Creatine Kinase 258 H C-Reactive Protein Albumin Triglycerides TSH Arterial Blood Glucose Arterial Blood Ionized Calcium Coronavirus (PCR) 01/27/21 01/28/21 01/28/21 18:00 04:00 04:00 WBC RBC Hgb Hct Plt Count Lymph % (Auto) Lymph # (Auto) [place] # (Auto) Seg Neutrophils % Seg Neuts % (Manual) Lymphocytes % (Manual) Nucleated RBC % Seg Neutrophils # Seg Neutrophils # Man Lymphocytes # (Manual) Monocytes # (Manual) PT INR D-Dimer Heparin Anti-Xa Level ABG pH 7.272 L POC ABG pCO2 48.4 H POC ABG pO2 ABG pO2 ABG Base Excess ABG Oxyhemoglobin ABG Sodium ABG Potassium ABG Chloride ABG Glucose 174 H Carboxyhemoglobin Sodium Potassium Chloride Carbon Dioxide BUN Creatinine Glucose POC Glucose 185 H Hemoglobin A1c Lactic Acid Calcium Magnesium Ferritin Total Bilirubin AST Alkaline Phosphatase Lactate Dehydrogenase Total Creatine Kinase C-Reactive Protein Albumin Triglycerides 369 H TSH Arterial Blood Glucose 174 H Arterial Blood Ionized Calcium 4.3 L Coronavirus (PCR) 01/28/21 01/28/21 01/28/21 10:03 10:03 10:03 WBC RBC Hgb Hct Plt Count 104 L Lymph % (Auto) Lymph # (Auto) [place] # (Auto) Seg Neutrophils % Seg Neuts % (Manual) Lymphocytes % (Manual) Nucleated RBC % Seg Neutrophils # Seg Neutrophils # Man Lymphocytes # (Manual) Monocytes # (Manual) PT 17.3 H INR 1.36 H D-Dimer Heparin Anti-Xa Level ABG pH POC ABG pCO2 POC ABG pO2 ABG pO2 ABG Base Excess ABG Oxyhemoglobin ABG Sodium ABG Potassium ABG Chloride ABG Glucose Carboxyhemoglobin Sodium Potassium 5.2 H Chloride Carbon Dioxide BUN 69 H Creatinine 5.6 H Glucose 220 H POC Glucose Hemoglobin A1c Lactic Acid Calcium 7.7 L Magnesium Ferritin Total Bilirubin AST Alkaline Phosphatase Lactate Dehydrogenase Total Creatine Kinase C-Reactive Protein Albumin Triglycerides TSH Arterial Blood Glucose Arterial Blood Ionized Calcium Coronavirus (PCR) 01/28/21 01/28/21 01/28/21 10:03 11:34 13:40 WBC RBC Hgb Hct Plt Count Lymph % (Auto) Lymph # (Auto) [place] # (Auto) Seg Neutrophils % Seg Neuts % (Manual) Lymphocytes % (Manual) Nucleated RBC % Seg Neutrophils # Seg Neutrophils # Man Lymphocytes # (Manual) Monocytes # (Manual) PT INR D-Dimer Heparin Anti-Xa Level ABG pH POC ABG pCO2 POC ABG pO2 ABG pO2 ABG Base Excess ABG Oxyhemoglobin ABG Sodium ABG Potassium ABG Chloride ABG Glucose Carboxyhemoglobin Sodium Potassium Chloride Carbon Dioxide BUN Creatinine Glucose POC Glucose 221 H Hemoglobin A1c Lactic Acid Calcium Magnesium 2.50 H Ferritin Total Bilirubin AST Alkaline Phosphatase Lactate Dehydrogenase Total Creatine Kinase C-Reactive Protein Albumin Triglycerides TSH 0.013 L Arterial Blood Glucose Arterial Blood Ionized Calcium Coronavirus (PCR) 01/28/21 01/28/21 01/29/21 15:31 18:02 04:00 WBC RBC Hgb Hct Plt Count Lymph % (Auto) Lymph # (Auto) [place] # (Auto) Seg Neutrophils % Seg Neuts % (Manual) Lymphocytes % (Manual) Nucleated RBC % Seg Neutrophils # Seg Neutrophils # Man Lymphocytes # (Manual) Monocytes # (Manual) PT INR D-Dimer Heparin Anti-Xa Level 1.21 H ABG pH 7.229 L POC ABG pCO2 48.8 H POC ABG pO2 ABG pO2 ABG Base Excess ABG Oxyhemoglobin ABG Sodium 135.3 L ABG Potassium 5.2 H ABG Chloride ABG Glucose 264 H Carboxyhemoglobin Sodium Potassium Chloride Carbon Dioxide BUN Creatinine Glucose POC Glucose 215 H Hemoglobin A1c Lactic Acid Calcium Magnesium Ferritin Total Bilirubin AST Alkaline Phosphatase Lactate Dehydrogenase Total Creatine Kinase C-Reactive Protein Albumin Triglycerides TSH Arterial Blood Glucose 264 H Arterial Blood Ionized Calcium 4.0 L Coronavirus (PCR) 01/29/21 04:30 WBC RBC Hgb Hct Plt Count Lymph % (Auto) Lymph # (Auto) [place] # (Auto) Seg Neutrophils % Seg Neuts % (Manual) Lymphocytes % (Manual) Nucleated RBC % Seg Neutrophils # Seg Neutrophils # Man Lymphocytes # (Manual) Monocytes # (Manual) PT INR D-Dimer Heparin Anti-Xa Level 0.81 H ABG pH POC ABG pCO2 POC ABG pO2 ABG pO2 ABG Base Excess ABG Oxyhemoglobin ABG Sodium ABG Potassium ABG Chloride ABG Glucose Carboxyhemoglobin Sodium Potassium Chloride Carbon Dioxide BUN Creatinine Glucose POC Glucose Hemoglobin A1c Lactic Acid Calcium Magnesium Ferritin Total Bilirubin AST Alkaline Phosphatase Lactate Dehydrogenase Total Creatine Kinase C-Reactive Protein Albumin Triglycerides TSH Arterial Blood Glucose Arterial Blood Ionized Calcium Coronavirus (PCR) Chest x-ray: other (none today) Allied health notes reviewed: nursing
[2021-01-29] MEDS: VORICONAZOLE 200 MG TAB PO SCH ×2 (12:29→21:59)
[2021-01-29] MEDS: MIDAZOLAM 100 MG in SODIUM CHLORIDE 0.9% 80 ML IV SCH (12:30)
[2021-01-29] MEDS: NORepinephrine/NS 4 MG-250 ML 4 MG/250 ML BAG IV SCH (12:31)
[2021-01-29] MEDS: INSULIN REGULAR, HUMAN 100 UNITS/1 ML SUB-Q SCH ×3 (14:40→23:42)
--- NOTE | 2021-01-29 16:37 | Progress Note ---
Assessment and Plan Assessment: Acute Respiratory Failure COVID-19 PNA Septic Shock SEDRICK (initiated on dialysis) New Onset AF with RVR Obesity Chronic Venous Insufficiency Plan: Echo pending. Continue anticoagulation with IV heparin gtt for now. Discontinue IV Amio gtt. Will start PO Amio 200mg daily. Follow LFTs. Continue to wean pressors as tolerated. Prognosis is very guarded. Will follow. Pt seen in conjunction with Dr. David Schwarz, who agrees with the assessment and plan of care. - Patient Problems (1) Acute respiratory failure Current Visit: Yes Status: Acute (2) Pneumonia due to COVID-19 virus Current Visit: Yes Status: Acute (3) Septic shock Current Visit: Yes Status: Acute (4) SEDRICK (acute kidney injury) Current Visit: Yes Status: Acute (5) Atrial fibrillation with RVR Current Visit: Yes Status: Acute (6) Obesity Current Visit: Yes Status: Chronic Qualifiers: Body mass index: BMI 45.0-49.9 (7) Chronic venous insufficiency Current Visit: Yes Status: Chronic Subjective Date of service: 01/29/21 Principal diagnosis: AF with RVR Interval history: Remains in SR 50-60s on tele. Weaning down Levo & Vaso gtts. Objective Last Vital Signs Temp 97.0 F L 01/29/21 15:12 Pulse 60 01/29/21 16:00 Resp 30 H 01/29/21 16:00 BP 123/54 01/29/21 16:00 Pulse Ox 93 01/29/21 15:45 - Physical Examination General: Other (intubated) HEENT: Positive: Normocephaly Neck: Negative: JVD/HJR Cardiac: Positive: Reg Rate and Rhythm, S1/S2 Lungs: Positive: Ventilated Respirations Neuro: Positive: Other (intubated) Abdomen: Positive: Soft Skin: Negative: Rash Musculoskeletal: No Fluid Collection Extremities: Present: Other (chronic changes) - Imaging and Cardiology EKG: report reviewed, image reviewed Echo: pending - Telemetry EKG Rhythm: Sinus Rhythm - EKG Supraventricular dysrhythmia: atrial fibrillation Repolarization changes or abnormalities: nonspecific abnormality, ST segment, and/or T wave - Allied health notes Allied health notes reviewed: nursing
[2021-01-29] MEDS: dexAMETHasone 4 MG/ML VIAL IV SCH (21:58)
--- NOTE | 2021-01-29 23:47 | Progress Note ---
Assessment and Plan Critical care statement The high probability OF a clinically significant sudden or life-threatening deterioration of the cardiorespiratory system and endocrine system required my full and direct attention, intervention and postoperative management. The aggregate critical lcare time was 40 minutes. The time is in addition to time spent performing reported procedures but includes the followin: Data review and interpretation 2: Patient assessment and monitoring of vital signs 3: Documentation 4:: Medication orders and management - Patient Problems (1) Acute respiratory failure due to COVID-19 Current Visit: Yes Status: Acute Plan to address problem: patient in severe respiratory failure and patient intubated On vent protoco Poor prognosis (2) Leukocytosis Current Visit: Yes Status: Acute Plan to address problem: Will defer to ID On voriconazole No antibiotics (3) Sepsis Current Visit: Yes Status: Acute Plan to address problem: Completed antibiotic course initiated PO voriconazole given steroids and Actemra. Avoid ABLC given renal failure (4) ESRD on hemodialysis Current Visit: Yes Status: Chronic Plan to address problem: Continue hemodialysis as per schedule (5) Multifocal pneumonia Current Visit: Yes Status: Acute Plan to address problem: Patient on voriconazole (6) Person under investigation for COVID-19 Current Visit: Yes Status: Acute Plan to address problem: Patient is given Actemra on 01/26/2021 On voriconazole (7) Malnutrition Current Visit: Yes Status: Chronic Qualifiers: Protein-calorie malnutrition severity: moderate Qualified Code(s): E44.0 - Moderate protein-calorie malnutrition Plan to address problem: On dietary supplements (8) DVT prophylaxis Current Visit: Yes Status: Acute Plan to address problem: On Lovenox 40 mg subcu daily and GI prophylaxis Subjective Date of service: 01/29/21 Principal diagnosis: AF with RVR Interval history: History Interval history: Patient is in acute respiratory failure on continuous BiPAP With low saturations intermittently Patient has severe Covid pneumonia, elevated D-dimers on empiric full dose anticoagulation Not a candidate for CTA chest as patient is unstable Patient is critically ill in severe distress Patient has low saturations even on continuous BiPAP May need intubation and mechanical ventilation Vital signs noted Objective - Exam Narrative Exam: Patient intubated - Constitutional Vitals: Vital Signs - 12hr 01/29/21 01/29/21 01/29/21 12:00 12:06 12:15 Temperature 96.8 F L Pulse Rate 58 L 57 L Pulse Rate [ 56 L From Monitor] Respiratory 30 H 30 H Rate Blood Pressure 127/50 125/58 O2 Sat by Pulse 97 88 Oximetry O2 Sat by Pulse Oximetry [ Anterior Bilateral] 01/29/21 01/29/21 01/29/21 12:30 12:45 13:00 Temperature Pulse Rate 57 L 60 59 L Pulse Rate [ From Monitor] Respiratory 30 H 30 H 30 H Rate Blood Pressure 114/57 106/59 108/65 O2 Sat by Pulse 95 96 98 Oximetry O2 Sat by Pulse Oximetry [ Anterior Bilateral] 01/29/21 01/29/21 01/29/21 13:15 13:30 13:45 Temperature Pulse Rate 59 L 57 L 57 L Pulse Rate [ From Monitor] Respiratory 30 H 30 H 30 H Rate Blood Pressure 108/60 115/69 114/66 O2 Sat by Pulse 97 97 97 Oximetry O2 Sat by Pulse Oximetry [ Anterior Bilateral] 01/29/21 01/29/21 01/29/21 14:00 14:15 14:30 Temperature Pulse Rate 58 L 56 L 55 L Pulse Rate [ From Monitor] Respiratory 30 H 30 H 30 H Rate Blood Pressure 115/57 116/66 121/63 O2 Sat by Pulse 97 95 96 Oximetry O2 Sat by Pulse Oximetry [ Anterior Bilateral] 01/29/21 01/29/21 01/29/21 14:45 15:00 15:12 Temperature 97.0 F L Pulse Rate 64 62 51 L Pulse Rate [ From Monitor] Respiratory 30 H 30 H 30 H Rate Blood Pressure 128/62 128/74 128/74 O2 Sat by Pulse 98 97 Oximetry O2 Sat by Pulse 98 Oximetry [ Anterior Bilateral] 01/29/21 01/29/21 01/29/21 15:13 15:16 15:30 Temperature Pulse Rate 52 L 51 L 55 L Pulse Rate [ From Monitor] Respiratory 30 H 21 Rate Blood Pressure 128/74 149/61 143/54 O2 Sat by Pulse 99 97 Oximetry O2 Sat by Pulse Oximetry [ Anterior Bilateral] 01/29/21 01/29/21 01/29/21 15:45 16:00 16:15 Temperature Pulse Rate 56 L 59 L 59 L Pulse Rate [ 56 L From Monitor] Respiratory 30 H 30 H 30 H Rate Blood Pressure 135/57 123/54 122/60 O2 Sat by Pulse 93 95 93 Oximetry O2 Sat by Pulse Oximetry [ Anterior Bilateral] 01/29/21 01/29/21 01/29/21 16:30 16:45 17:00 Temperature 97.3 F L Pulse Rate 59 L 58 L 57 L Pulse Rate [ From Monitor] Respiratory 30 H 30 H 30 H Rate Blood Pressure 124/70 126/70 128/72 O2 Sat by Pulse 94 95 95 Oximetry O2 Sat by Pulse Oximetry [ Anterior Bilateral] 01/29/21 01/29/21 01/29/21 17:15 17:30 17:45 Temperature Pulse Rate 57 L 57 L 56 L Pulse Rate [ From Monitor] Respiratory 30 H 30 H 30 H Rate Blood Pressure 130/63 128/63 128/67 O2 Sat by Pulse 94 96 96 Oximetry O2 Sat by Pulse Oximetry [ Anterior Bilateral] 01/29/21 01/29/21 01/29/21 18:00 18:15 18:30 Temperature Pulse Rate 56 L 56 L 55 L Pulse Rate [ From Monitor] Respiratory 30 H 30 H 30 H Rate Blood Pressure 128/67 124/62 132/71 O2 Sat by Pulse 99 98 96 Oximetry O2 Sat by Pulse Oximetry [ Anterior Bilateral] 01/29/21 01/29/21 01/29/21 18:45 19:00 19:15 Temperature Pulse Rate 61 60 60 Pulse Rate [ From Monitor] Respiratory 30 H 30 H 27 H Rate Blood Pressure 110/60 117/63 117/63 O2 Sat by Pulse 85 85 88 Oximetry O2 Sat by Pulse Oximetry [ Anterior Bilateral] 01/29/21 01/29/21 01/29/21 19:30 19:40 19:45 Temperature 97.9 F Pulse Rate 55 L 55 L Pulse Rate [ 55 L From Monitor] Respiratory 21 Rate Blood Pressure 117/63 O2 Sat by Pulse 94 95 Oximetry O2 Sat by Pulse Oximetry [ Anterior Bilateral] 01/29/21 01/29/21 01/29/21 19:46 20:00 20:15 Temperature Pulse Rate 58 L 57 L 55 L Pulse Rate [ From Monitor] Respiratory 30 H 30 H 30 H Rate Blood Pressure 119/58 124/56 132/61 O2 Sat by Pulse 93 97 95 Oximetry O2 Sat by Pulse Oximetry [ Anterior Bilateral] 01/29/21 01/29/21 01/29/21 20:30 20:41 20:46 Temperature Pulse Rate 56 L 58 L 59 L Pulse Rate [ From Monitor] Respiratory 30 H 30 H Rate Blood Pressure 133/61 133/61 107/55 O2 Sat by Pulse 95 98 95 Oximetry O2 Sat by Pulse Oximetry [ Anterior Bilateral] 01/29/21 01/29/21 01/29/21 21:00 21:15 21:30 Temperature Pulse Rate 61 60 60 Pulse Rate [ From Monitor] Respiratory 30 H 30 H 30 H Rate Blood Pressure 97/48 93/49 99/51 O2 Sat by Pulse 95 95 93 Oximetry O2 Sat by Pulse Oximetry [ Anterior Bilateral] 01/29/21 01/29/21 01/29/21 21:33 21:45 22:00 Temperature Pulse Rate 50 L 61 56 L Pulse Rate [ From Monitor] Respiratory 30 H 27 H Rate Blood Pressure 94/51 129/76 O2 Sat by Pulse 92 Oximetry O2 Sat by Pulse Oximetry [ Anterior Bilateral] 01/29/21 01/29/21 01/29/21 22:10 22:16 22:30 Temperature Pulse Rate 56 L 53 L 58 L Pulse Rate [ From Monitor] Respiratory 30 H 28 H 25 H Rate Blood Pressure 141/69 149/72 O2 Sat by Pulse 98 95 91 Oximetry O2 Sat by Pulse Oximetry [ Anterior Bilateral] 01/29/21 01/29/21 01/29/21 22:45 23:00 23:16 Temperature Pulse Rate 53 L 50 L 55 L Pulse Rate [ From Monitor] Respiratory 30 H 26 H 28 H Rate Blood Pressure 159/72 158/71 152/62 O2 Sat by Pulse 95 98 95 Oximetry O2 Sat by Pulse Oximetry [ Anterior Bilateral] 01/29/21 23:30 Temperature Pulse Rate 53 L Pulse Rate [ From Monitor] Respiratory 31 H Rate Blood Pressure 158/67 O2 Sat by Pulse 94 Oximetry O2 Sat by Pulse Oximetry [ Anterior Bilateral] General appearance: Present: mild distress, well-nourished - EENT Eyes: PERRL, EOM intact ENT: hearing intact, clear oral mucosa Ears: bilateral: normal - Neck Neck: supple, normal ROM - Respiratory Respiratory effort: normal Respiratory: bilateral: CTA - Breasts Breasts: normal - Cardiovascular Rhythm: regular Heart Sounds: Present: S1 & S2. Absent: gallop, rub Extremities: pulses intact, No edema, normal color, Full ROM - Gastrointestinal General gastrointestinal: Present: soft, non-tender, non-distended, normal bowel sounds - Genitourinary Male genitourinary: normal - Integumentary Integumentary: clear, warm, dry - Musculoskeletal Musculoskeletal: 1, strength equal bilaterally - Neurologic Neurologic: moves all extremities - Psychiatric Psychiatric: memory intact, appropriate mood/affect, intact judgment & insight - Labs CBC & Chem 7: 01/30/21 05:00 01/30/21 05:00 Labs: Abnormal lab results 01/29/21 01/29/21 01/29/21 Range/Units 04:00 04:30 13:23 Heparin Anti-Xa Level 0.81 H (0.3-0.7) U.I./ml ABG pH 7.229 L (7.320-7.450) POC ABG pCO2 48.8 H (32.0-48.0) mmHg ABG Sodium 135.3 L (136.0-145.0) mmol/L ABG Potassium 5.2 H (3.40-4.50) mmol/L ABG Glucose 264 H (65-95) mg/dL POC Glucose 198 H (70-105) mg/dL Arterial Blood Glucose 264 H (65-95) mg/dL Arterial Blood Ionized Calcium 4.0 L (4.6-5.3) mg/dL 01/29/21 01/29/21 01/29/21 Range/Units 17:56 23:12 Unknown Heparin Anti-Xa Level 0.85 H (0.3-0.7) U.I./ml ABG pH (7.320-7.450) POC ABG pCO2 (32.0-48.0) mmHg ABG Sodium (136.0-145.0) mmol/L ABG Potassium (3.40-4.50) mmol/L ABG Glucose (65-95) mg/dL POC Glucose 200 H 172 H (70-105) mg/dL Arterial Blood Glucose (65-95) mg/dL Arterial Blood Ionized Calcium (4.6-5.3) mg/dL HEART Score - HEART Score Age: 45-65 Risk factors: 1-2 risk factors Troponin: < normal limit - Critical Actions Critical Actions: 0-3 pts:0.9-1.7%risk of adverse cardiac event.Candidate for discharge
[2021-01-30 05:38] LABS: Hematocrit 34.8 % (35.5-45.6); Hemoglobin 11.6 gm/dl (11.8-15.2); Mean Corpuscular HGB Conc 34 % (32-34); Mean Corpuscular Volume 87 fl (84-94); Platelet Count 126 K/mm3 (140-440); Red Blood Count 4.02 M/mm3 (3.65-5.03); Red Cell Distribution Width 14.8 % (13.2-15.2)
[2021-01-30 05:42] LABS: Calcium 7.4 mg/dL (8.4-10.2)
[2021-01-30] MEDS: HEPARIN/ 0.45% NACL DRIP 25,000 UNIT/500 ML BAG IV SCH (05:50)
[2021-01-30] MEDS: METOCLOPRAMIDE 10 MG/2 ML INJ IV SCH ×3 (06:07→18:36)
--- NOTE | 2021-01-30 07:38 | Progress Note ---
Subjective Date of service: 01/30/21 Principal diagnosis: AF with RVR Interval history: Assessment: Acute kidney injury Hyperkalemia Acidosis Azotemia Acute respiratory failure, status post intubation Covid pneumonia Septic shock Recommendations Start dialysis for clearance 01/27. Consent was obtained from for [employer] [employer]. Possible complications on dialysis were also explained in detail. Assess daily for needs for additional hemodialysis sessions UF Tolerated with hd daily lytes, strict i/os likey ATN due to COvid infection Renally dose medications Avoid nephrotoxins [facility] referral noted, may not be dialysis appropriate Subjective Principal diagnosis: Ac hypoxemic resp failure; COVID-19; Pneumonia; Sepsis; Morbid obesity Interval history: Remains intubated. Objective - Exam exam deferred for preservation of ppe, primary team exam noted Objective - Vital Signs Vital signs: Vital Signs - 12hr 01/29/21 01/29/21 01/29/21 19:40 19:45 19:46 Temperature 97.9 F Pulse Rate 55 L 58 L Pulse Rate [ 55 L From Monitor] Respiratory 30 H Rate Blood Pressure 119/58 O2 Sat by Pulse 95 93 Oximetry 01/29/21 01/29/21 01/29/21 20:00 20:15 20:30 Temperature Pulse Rate 57 L 55 L 56 L Pulse Rate [ From Monitor] Respiratory 30 H 30 H 30 H Rate Blood Pressure 124/56 132/61 133/61 O2 Sat by Pulse 97 95 95 Oximetry 01/29/21 01/29/21 01/29/21 20:41 20:46 21:00 Temperature Pulse Rate 58 L 59 L 61 Pulse Rate [ From Monitor] Respiratory 30 H 30 H Rate Blood Pressure 133/61 107/55 97/48 O2 Sat by Pulse 98 95 95 Oximetry 01/29/21 01/29/21 01/29/21 21:15 21:30 21:33 Temperature Pulse Rate 60 60 50 L Pulse Rate [ From Monitor] Respiratory 30 H 30 H Rate Blood Pressure 93/49 99/51 O2 Sat by Pulse 95 93 Oximetry 01/29/21 01/29/21 01/29/21 21:45 22:00 22:10 Temperature Pulse Rate 61 56 L 56 L Pulse Rate [ From Monitor] Respiratory 30 H 27 H 30 H Rate Blood Pressure 94/51 129/76 O2 Sat by Pulse 92 98 Oximetry 01/29/21 01/29/21 01/29/21 22:16 22:30 22:45 Temperature Pulse Rate 53 L 58 L 53 L Pulse Rate [ From Monitor] Respiratory 28 H 25 H 30 H Rate Blood Pressure 141/69 149/72 159/72 O2 Sat by Pulse 95 91 95 Oximetry 01/29/21 01/29/21 01/29/21 23:00 23:16 23:30 Temperature Pulse Rate 50 L 55 L 53 L Pulse Rate [ From Monitor] Respiratory 26 H 28 H 31 H Rate Blood Pressure 158/71 152/62 158/67 O2 Sat by Pulse 98 95 94 Oximetry 01/29/21 01/29/21 01/29/21 23:46 23:48 23:55 Temperature 97.9 F Pulse Rate 52 L 53 L Pulse Rate [ From Monitor] Respiratory 27 H 22 Rate Blood Pressure 153/73 153/73 O2 Sat by Pulse 96 99 Oximetry 01/30/21 01/30/21 01/30/21 00:00 00:15 00:30 Temperature Pulse Rate 52 L 51 L 51 L Pulse Rate [ From Monitor] Respiratory 23 28 H 28 H Rate Blood Pressure 155/65 161/71 151/69 O2 Sat by Pulse 95 96 Oximetry 01/30/21 01/30/21 01/30/21 00:46 01:00 01:08 Temperature Pulse Rate 51 L 53 L 52 L Pulse Rate [ From Monitor] Respiratory 28 H 24 Rate Blood Pressure 161/65 148/66 148/66 O2 Sat by Pulse 96 99 Oximetry 01/30/21 01/30/21 01/30/21 01:16 01:30 01:45 Temperature Pulse Rate 53 L 55 L 57 L Pulse Rate [ From Monitor] Respiratory 22 28 H 25 H Rate Blood Pressure 136/48 140/57 137/57 O2 Sat by Pulse 98 96 94 Oximetry 01/30/21 01/30/21 01/30/21 02:00 02:15 02:30 Temperature Pulse Rate 60 60 59 L Pulse Rate [ From Monitor] Respiratory 21 19 27 H Rate Blood Pressure 130/54 134/59 137/63 O2 Sat by Pulse 96 93 95 Oximetry 01/30/21 01/30/21 01/30/21 02:45 03:00 03:15 Temperature Pulse Rate 59 L 60 59 L Pulse Rate [ From Monitor] Respiratory 25 H 17 21 Rate Blood Pressure 135/61 131/62 137/67 O2 Sat by Pulse 94 92 90 Oximetry 01/30/21 01/30/21 01/30/21 03:30 03:32 03:45 Temperature 97.3 F L Pulse Rate 60 58 L Pulse Rate [ From Monitor] Respiratory 18 23 Rate Blood Pressure 134/61 139/66 O2 Sat by Pulse 95 94 Oximetry 01/30/21 01/30/21 01/30/21 04:00 04:15 04:30 Temperature Pulse Rate 60 60 58 L Pulse Rate [ From Monitor] Respiratory 26 H 18 19 Rate Blood Pressure 134/64 131/71 131/66 O2 Sat by Pulse 96 97 95 Oximetry 01/30/21 01/30/21 01/30/21 04:35 04:45 05:00 Temperature Pulse Rate 58 L 59 L 57 L Pulse Rate [ From Monitor] Respiratory 15 28 H Rate Blood Pressure 131/66 120/62 138/67 O2 Sat by Pulse 99 95 93 Oximetry 01/30/21 01/30/21 01/30/21 05:16 05:30 05:45 Temperature Pulse Rate 66 67 65 Pulse Rate [ From Monitor] Respiratory 11 L 16 30 H Rate Blood Pressure 89/38 90/46 91/51 O2 Sat by Pulse 95 98 98 Oximetry 01/30/21 01/30/21 01/30/21 06:00 06:15 06:30 Temperature Pulse Rate 57 L 60 59 L Pulse Rate [ From Monitor] Respiratory 30 H 24 30 H Rate Blood Pressure 130/59 122/59 121/63 O2 Sat by Pulse 99 94 93 Oximetry 01/30/21 01/30/21 01/30/21 06:45 07:00 07:15 Temperature Pulse Rate 58 L 61 59 L Pulse Rate [ From Monitor] Respiratory 24 19 21 Rate Blood Pressure 121/61 118/67 123/65 O2 Sat by Pulse 95 94 92 Oximetry - Lab 01/30/21 05:00 01/30/21 05:00 Most recent lab results ABG pH 7.288 (7.320-7.450) L 01/30/21 04:05 ABG pCO2 46.6 mm Hg 01/26/21 08:30 ABG pO2 124.5 mm Hg (80.0-90.0) H 01/26/21 08:30 ABG HCO3 21.7 mmol/L (20.0-26.0) 01/26/21 08:30 ABG O2 Saturation 99.3 (0-100) 01/30/21 04:05 Calcium 7.4 mg/dL (8.4-10.2) L 01/30/21 05:00 Phosphorus 8.60 mg/dL (2.5-4.5) H 01/30/21 05:00 Magnesium 2.40 mg/dL (1.7-2.3) H 01/30/21 05:00 Medications & Allergies - Medications Allergies/Adverse Reactions: Allergies No Known Allergies Allergy (Verified 01/27/21 15:55) Per Peg López Home Medications: Home Medications Medication Instructions Recorded Confirmed Last Taken Type No Known Home Medications [No 01/27/21 01/27/21 Unknown History Reported Home Medications] Active Medications: Generic Name Dose Route Start Last Admin Trade Name Freq PRN Reason Stop Dose Admin Acetaminophen 650 mg 01/22/21 23:03 Acetaminophen 325 Mg Tab PO Q4H PRN Pain MILD(1-3)/Fever >100.5/ANDERSEN Al Hydrox/Mg Hydrox/Simethicone 30 ml 01/25/21 01:08 01/25/21 01:31 Alum-Mag Hydroxide-Simethicone [phone] Oral Liqd 30 Ml PO 30 ml Q4H PRN Administration Indigestion Albumin Human 25 gm 01/27/21 09:35 Albumin Human 25% (25 Gm/100 Ml) Inj IV MELECIO PRN Hypotension Amiodarone HCl 200 mg 01/30/21 10:00 Amiodarone 200 Mg Tab PO DAILY JACK Lipase/Protease/Amylase 1 each 01/27/21 11:37 Lipase 10,500/Protease 25,000/Amylase 43,750 (Units) Dr Singer FEEDTUBE PRN PRN For Clogged Feeding Tube Dexamethasone 10 mg 01/24/21 22:00 01/29/21 21:58 Dexamethasone 4 Mg/Ml Vial IV 01/31/21 22:01 10 mg Q24HR@2200 JACK Administration Dextrose 50 ml 01/29/21 12:24 Dextrose 50% In Water (25gm) 50 Ml Syringe IV Q30MIN PRN Hypoglycemia Protocol Famotidine 20 mg 01/27/21 10:00 01/29/21 09:26 Famotidine 20 Mg/2 Ml Inj IV 20 mg DAILY JACK Administration Fentanyl 50 mcg 01/25/21 11:32 01/28/21 06:10 Fentanyl 100 Mcg/2 Ml Inj IV 50 mcg Q10MIN PRN Administration ANALGESIA Heparin Sodium (Porcine) 5,000 unit 01/28/21 09:27 Heparin 10,000 Units/10 Ml Vial IV Q6H PRN Anti-Xa Assay < 0.1 units/ml Hydromorphone HCl 0.5 mg 01/22/21 23:03 01/25/21 07:15 Hydromorphone 1 Mg/1 Ml Inj IV 0.5 mg Q3H PRN Administration Pain , Severe (7-10) Hydrophilic Ointment 1 applic 01/25/21 13:27 Lip Therapy Vaseline TP Q2HR PRN Dry Lips Fentanyl Citrate 2,000 mcg in 100 mls @ 6.357 mls/hr 01/25/21 12:00 01/30/21 05:21 Fentanyl Drip Premix IV 0 mcg/kg/hr TITR JACK 0 mls/hr Titration Protocol 1 MCG/KG/HR Propofol 1,000 mg in 100 mls @ 3.814 mls/hr 01/25/21 14:00 01/30/21 05:19 Diprivan 10 Mg/Ml IV 0 mcg/kg/min TITR JACK 0 mls/hr Titration Protocol 5 MCG/KG/MIN Norepinephrine 4 mg in 250 mls @ 7.5 mls/hr 01/25/21 17:04 01/30/21 06:20 Levophed Drip 4 Mg/Ns 250 Ml IV 2 mcg/min TITR JACK 7.5 mls/hr Titration Protocol 2 MCG/MIN Midazolam HCl 100 mg/ Sodium 100 mls @ 1 mls/hr 01/26/21 11:00 01/30/21 05:24 Chloride IV 0 mg/hr TITR JACK 0 mls/hr Titration Protocol 1 MG/HR Sodium Chloride 100 mls @ 999 mls/hr 01/27/21 09:35 Nacl 0.9% IV MELECIO PRN Hypotension Vasopressin 20 unit/ Sodium 101 mls @ 9.09 mls/hr 01/28/21 07:00 01/29/21 15:41 Chloride IV 0.03 units/min TITR JACK 9.09 mls/hr Administration Protocol 0.03 UNITS/MIN Heparin Sodium/Sodium Chloride 25,000 unit in 500 mls @ 30 mls/hr 01/28/21 11:00 01/30/21 05:50 Heparin/ 0.45% Nacl-25,000 Unit/500 Ml IV 1,050 units/hr TITR JACK 21 mls/hr Administration Protocol 1,500 UNITS/HR Insulin Human Regular 0 units 01/29/21 13:00 01/29/21 23:42 Insulin Regular, Human 100 Units/1 Ml SUB-Q Not Given Q6HR [facility] Protocol Metoclopramide HCl 5 mg 01/29/21 11:30 01/30/21 06:07 Metoclopramide 10 Mg/2 Ml Inj IV 01/31/21 11:29 5 mg ACHS JACK Administration Midazolam HCl 2 mg 01/25/21 16:13 Midazolam 2 Mg/2 Ml Inj IV Q10MIN PRN Sedation Multi-Ingred Cream/Lotion/Oil/Oint 1 applic 01/25/21 13:27 Mineral Oil/Petrolatum, White Ophth Oint 3.5 Gm OU Q4HR PRN Dry Eye(s) Ondansetron HCl 4 mg 01/22/21 23:03 Ondansetron 4 Mg/2 Ml Inj IV Q8H PRN Nausea And Vomiting Oxycodone/Acetaminophen 1 tab 01/22/21 23:03 01/24/21 22:36 Oxycodone /Acetaminophen 5-325mg Tab PO 1 tab Q6H PRN Administration Pain, Moderate (4-6) Senna/Docusate Sodium 1 tab 01/25/21 22:00 01/29/21 21:59 Sennosides/Docusate Sodium 8.6/50 Mg Tab FEEDTUBE 1 tab BID JACK Administration Simple Syrup 15 ml 01/27/21 11:37 Simple Syrup 15 Ml FEEDTUBE PRN PRN Hypoglycemia Simple Syrup 30 ml 01/27/21 11:37 Simple Syrup 15 Ml FEEDTUBE PRN PRN Hypoglycemia Sodium Bicarbonate 325 mg 01/27/21 11:37 Sodium Bicarbonate 325 Mg Tab FEEDTUBE PRN PRN For Clogged Feeding Tube Sodium Chloride 10 ml 01/22/21 23:45 01/29/21 22:01 Sodium Chloride 0.9% 10 Ml Flush Syringe IV 10 ml BID JACK Administration Sodium Chloride 10 ml 01/22/21 23:03 Sodium Chloride 0.9% 10 Ml Flush Syringe IV PRN PRN LINE FLUSH Voriconazole 300 mg 01/29/21 11:00 01/29/21 21:59 Voriconazole 200 Mg Tab PO 300 mg Q12HR JACK Administration
--- NOTE | 2021-01-30 08:42 | Ultrasound Report ---
Renal ultrasound INDICATION: Acute renal failure FINDINGS: Both kidneys measure about 12 cm in length. No mass or cyst identified. No hydronephrosis a ppreciated within the limits of the exam given patient's body habitus. Urinary bladder was not well i dentified but appeared at least partially collapsed IMPRESSION: No acute findings identified within the limits of the exam. Signer Name: Óscar Deras MD Signed: 01/30/2021 7:14 AM Workstation Name: [id number]
[2021-01-30] MEDS: FAMOTIDINE 20 MG/2 ML INJ IV SCH (09:59)
[2021-01-30] MEDS: VORICONAZOLE 200 MG TAB PO SCH ×2 (09:59→21:29)
[2021-01-30] MEDS: SENNOSIDES/DOCUSATE SODIUM 8.6/50 MG TAB FEEDTUBE SCH ×2 (10:00→21:30)
[2021-01-30] MEDS: AMIODARONE 200 MG TAB PO SCH (10:00)
--- NOTE | 2021-01-30 12:11 | Progress Note ---
Assessment and Plan Acute hypoxemic respiratory failure COVID-19 infection Multifocal pneumonia Hypernatremia Sepsis Morbid obesity with BMI of 40.0-44.9, adult - 2D ECHO with poor images and no read - get KUB and address - continue Reglan - continue to hold sedation (with renal failure may linger a while) - HD/UF today per nephrology prescription for toxin and volume clearance - transitioned to oral Amiodarone - wean Vasopressors for target MAP > 65 mmHg - continue care as below otherwise; - Daily SAT and SBT assessment as tolerated - continue to wean supplemental oxygen for target O2 sat's > 92% acutely - VAP bundle addressed - continue lung protective strategies - continue bronchodilators with pulmonary hygiene per RT - wean per pulmonary driven protocols otherwise - avoid nephrotoxins, renally dose all medications - continue to avoid benzodiazepine's, reduce the possibility of delirium - complete AB's per ID rec's - prn analgesia per CPOT score - Maintenance of sleep-wake cycle, avoid delirium - enteral nutritional support at goal rate as tolerated - G.I. & VTE prophylaxis - PT/OT/ROM exercises - continue mobility protocols for pressure ulcer prophylaxis - Monitor hemodynamics closely - continue other care per attending / other consultants - discharge planning ongoing concurrently COVID SPECIFIC INTERVENTIONS - Remdesivir as per ID/Pulmonary developed protocols (receiving) - continue systemic steroids for severe COVID-19 infection (Dexamethasone) - follow repeat COVID tests results - zinc and vitamin C supplementation - Monitor inflammatory markers per facility protocol - ferritin, Ddimer, CRP - therapeutic anticoagulation per system Protocol based on d-dimer and clinical considerations (VTE prophylaxis doses now) - Continue contact and airborne isolation .... Re-evaluate in am & prn CONDITION: CRITICAL PROGNOSIS: GUARDED CODE STATUS: FULL CODE The high probability of a clinically significant, sudden or life-threatening deterioration of the [respiratory, cardiovascular & neurologic] system(s) required my full and direct attention, intervention and personal management. The aggregate critical care time was [35] minutes without overlap. Time includes spent on; [x] Data Review and interpretation [x] Patient assessment and monitoring of vital signs [x] Documentation [x] Medication orders and management Subjective Date of service: 01/30/21 Principal diagnosis: Ac hypoxemic resp failure; COVID-19; Pneumonia; Sepsis; Morbid obesity Interval history: Patient is seen today for: Acute hypoxemic respiratory failure; COVID- 19infection; Multifocal pneumonia; Hypernatremia; Sepsis; Morbid obesity Seen and examined at bedside; 24hour events reviewed; nursing and respiratory care staff consulted; no adverse overnight events reported to me; resting in bed; remains on MVS; FiO2 down to 80%; sedation held overnight but still altered; weaning off vasopressors and Levophed down to 1 wilfredo/min; tube feeds remain on hold re: high residuals; no high grade fevers Objective Vital Signs - 12hr 01/30/21 01/30/21 01/30/21 00:15 00:30 00:46 Temperature Pulse Rate 51 L 51 L 51 L Respiratory 28 H 28 H 28 H Rate Blood Pressure 161/71 151/69 161/65 O2 Sat by Pulse 96 96 Oximetry 01/30/21 01/30/21 01/30/21 01:00 01:08 01:16 Temperature Pulse Rate 53 L 52 L 53 L Respiratory 24 22 Rate Blood Pressure 148/66 148/66 136/48 O2 Sat by Pulse 99 98 Oximetry 01/30/21 01/30/21 01/30/21 01:30 01:45 02:00 Temperature Pulse Rate 55 L 57 L 60 Respiratory 28 H 25 H 21 Rate Blood Pressure 140/57 137/57 130/54 O2 Sat by Pulse 96 94 96 Oximetry 01/30/21 01/30/21 01/30/21 02:15 02:30 02:45 Temperature Pulse Rate 60 59 L 59 L Respiratory 19 27 H 25 H Rate Blood Pressure 134/59 137/63 135/61 O2 Sat by Pulse 93 95 94 Oximetry 01/30/21 01/30/21 01/30/21 03:00 03:15 03:30 Temperature Pulse Rate 60 59 L 60 Respiratory 17 21 18 Rate Blood Pressure 131/62 137/67 134/61 O2 Sat by Pulse 92 90 95 Oximetry 01/30/21 01/30/21 01/30/21 03:32 03:45 04:00 Temperature 97.3 F L Pulse Rate 58 L 60 Respiratory 23 26 H Rate Blood Pressure 139/66 134/64 O2 Sat by Pulse 94 96 Oximetry 01/30/21 01/30/21 01/30/21 04:15 04:30 04:35 Temperature Pulse Rate 60 58 L 58 L Respiratory 18 19 Rate Blood Pressure 131/71 131/66 131/66 O2 Sat by Pulse 97 95 99 Oximetry 01/30/21 01/30/21 01/30/21 04:45 05:00 05:16 Temperature Pulse Rate 59 L 57 L 66 Respiratory 15 28 H 11 L Rate Blood Pressure 120/62 138/67 89/38 O2 Sat by Pulse 95 93 95 Oximetry 01/30/21 01/30/21 01/30/21 05:30 05:45 06:00 Temperature Pulse Rate 67 65 57 L Respiratory 16 30 H 30 H Rate Blood Pressure 90/46 91/51 130/59 O2 Sat by Pulse 98 98 99 Oximetry 01/30/21 01/30/21 01/30/21 06:15 06:30 06:45 Temperature Pulse Rate 60 59 L 58 L Respiratory 24 30 H 24 Rate Blood Pressure 122/59 121/63 121/61 O2 Sat by Pulse 94 93 95 Oximetry 01/30/21 01/30/21 01/30/21 07:00 07:15 07:30 Temperature Pulse Rate 61 59 L 61 Respiratory 19 21 17 Rate Blood Pressure 118/67 123/65 126/60 O2 Sat by Pulse 94 92 95 Oximetry 01/30/21 01/30/21 01/30/21 07:45 08:00 08:15 Temperature 97 F L Pulse Rate 63 61 63 Respiratory 22 28 H 19 Rate Blood Pressure 121/71 124/69 122/72 O2 Sat by Pulse 96 96 96 Oximetry 01/30/21 01/30/21 01/30/21 08:30 08:37 08:45 Temperature Pulse Rate 61 61 60 Respiratory 27 H 27 H Rate Blood Pressure 116/61 116/61 110/62 O2 Sat by Pulse 90 98 92 Oximetry 01/30/21 01/30/21 01/30/21 09:00 09:15 09:30 Temperature Pulse Rate 61 60 63 Respiratory 31 H 28 H 26 H Rate Blood Pressure 112/61 112/61 118/56 O2 Sat by Pulse 94 95 95 Oximetry 01/30/21 01/30/21 01/30/21 09:45 10:00 10:15 Temperature Pulse Rate 60 64 61 Respiratory 31 H 30 H 29 H Rate Blood Pressure 120/63 115/63 116/62 O2 Sat by Pulse 95 95 95 Oximetry 01/30/21 01/30/21 01/30/21 10:30 10:45 11:00 Temperature Pulse Rate 60 60 59 L Respiratory 29 H 24 30 H Rate Blood Pressure 120/68 115/64 114/69 O2 Sat by Pulse 96 93 96 Oximetry 01/30/21 11:15 Temperature Pulse Rate 59 L Respiratory 30 H Rate Blood Pressure 119/64 O2 Sat by Pulse 94 Oximetry Constitutional: no acute distress (sedated), other (middle aged obese male with mildly increased respiratory effort at rest on MVS) Eyes: non-icteric ENT: oropharynx moist, other (ETT 24 cm BRE) Neck: supple, no lymphadenopathy, no JVD, other (large circumference) Effort: mildly labored Ascultation: Bilateral: diminished breath sounds, rhonchi Percussion: Bilateral: not dull Cardiovascular: regular rate and rhythm Gastrointestinal: normoactive bowel sounds, soft, non-tender, non-distended (protuberant) Integumentary: normal Extremities: no cyanosis, no edema, pink and warm, pulses normal Neurologic: normal mental status, pupils equal and round, unable to assess (sedated) Psychiatric: other (unable top assess re: AMS) CBC and BMP: 01/31/21 03:30 01/31/21 03:30 ABG, PT/INR, D-dimer: ABG ABG pH 7.288 (7.320-7.450) L 01/30/21 04:05 POC ABG pCO2 49.7 mmHg (32.0-48.0) H 01/30/21 04:05 ABG pCO2 46.6 mm Hg 01/26/21 08:30 POC ABG pO2 169.7 mmHg (83-108) H 01/30/21 04:05 ABG pO2 124.5 mm Hg (80.0-90.0) H 01/26/21 08:30 POC ABG HCO3 23.3 01/30/21 04:05 ABG O2 Saturation 99.3 (0-100) 01/30/21 04:05 PT/INR, D-dimer PT 17.3 Sec. (12.2-14.9) H 01/28/21 10:03 INR 1.36 (0.87-1.13) H 01/28/21 10:03 D-Dimer > 28806 ng/mlDDU (0-234) H 01/25/21 06:22 Abnormal lab findings: Abnormal Labs 01/22/21 01/22/21 01/22/21 11:06 11:06 11:06 WBC RBC Hgb Hct Plt Count Lymph % (Auto) Lymph # (Auto) [place] # (Auto) Seg Neutrophils % Seg Neuts % (Manual) Lymphocytes % (Manual) Nucleated RBC % Seg Neutrophils # Seg Neutrophils # Man Lymphocytes # (Manual) Monocytes # (Manual) PT INR D-Dimer 2625.11 H Heparin Anti-Xa Level ABG pH POC ABG pCO2 POC ABG pO2 ABG pO2 ABG Base Excess ABG Oxyhemoglobin ABG Sodium ABG Potassium ABG Chloride ABG Glucose Carboxyhemoglobin Sodium Potassium Chloride Carbon Dioxide BUN Creatinine Glucose 130 H POC Glucose Hemoglobin A1c Lactic Acid Calcium Phosphorus Magnesium Ferritin 557.5 H Total Bilirubin AST Alkaline Phosphatase Lactate Dehydrogenase 799 H Total Creatine Kinase C-Reactive Protein 3.30 H Albumin Triglycerides TSH Arterial Blood Glucose Arterial Blood Ionized Calcium Coronavirus (PCR) 01/22/21 01/22/21 01/22/21 11:06 11:06 11:06 WBC 19.2 H RBC 5.63 H Hgb 15.8 H Hct 49.0 H Plt Count Lymph % (Auto) Lymph # (Auto) [place] # (Auto) Seg Neutrophils % Seg Neuts % (Manual) 92.0 H Lymphocytes % (Manual) 1.0 L Nucleated RBC % 1.0 H Seg Neutrophils # Seg Neutrophils # Man 17.7 H Lymphocytes # (Manual) 0.2 L Monocytes # (Manual) 1.0 H PT INR D-Dimer Heparin Anti-Xa Level ABG pH POC ABG pCO2 POC ABG pO2 ABG pO2 ABG Base Excess ABG Oxyhemoglobin ABG Sodium ABG Potassium ABG Chloride ABG Glucose Carboxyhemoglobin Sodium Potassium 3.3 L Chloride Carbon Dioxide 20 L BUN 32 H Creatinine Glucose 130 H POC Glucose Hemoglobin A1c Lactic Acid 4.20 H* Calcium Phosphorus Magnesium Ferritin Total Bilirubin AST Alkaline Phosphatase Lactate Dehydrogenase Total Creatine Kinase C-Reactive Protein Albumin 2.9 L Triglycerides TSH Arterial Blood Glucose Arterial Blood Ionized Calcium Coronavirus (PCR) 01/22/21 01/22/21 01/23/21 11:06 12:03 05:29 WBC 19.0 H RBC 5.24 H Hgb 15.3 H Hct 46.0 H Plt Count Lymph % (Auto) 4.4 L Lymph # (Auto) 0.8 L [place] # (Auto) 1.2 H Seg Neutrophils % 89.1 H Seg Neuts % (Manual) Lymphocytes % (Manual) Nucleated RBC % Seg Neutrophils # 16.9 H Seg Neutrophils # Man Lymphocytes # (Manual) Monocytes # (Manual) PT INR D-Dimer Heparin Anti-Xa Level ABG pH POC ABG pCO2 30.7 L POC ABG pO2 61.4 L ABG pO2 ABG Base Excess ABG Oxyhemoglobin 90.5 L ABG Sodium ABG Potassium ABG Chloride ABG Glucose Carboxyhemoglobin 1.7 H Sodium Potassium Chloride Carbon Dioxide BUN Creatinine Glucose POC Glucose Hemoglobin A1c 6.2 H Lactic Acid Calcium Phosphorus Magnesium Ferritin Total Bilirubin AST Alkaline Phosphatase Lactate Dehydrogenase Total Creatine Kinase C-Reactive Protein Albumin Triglycerides TSH Arterial Blood Glucose Arterial Blood Ionized Calcium Coronavirus (PCR) 01/23/21 01/23/21 01/23/21 05:29 09:00 16:55 WBC RBC Hgb Hct Plt Count Lymph % (Auto) Lymph # (Auto) [place] # (Auto) Seg Neutrophils % Seg Neuts % (Manual) Lymphocytes % (Manual) Nucleated RBC % Seg Neutrophils # Seg Neutrophils # Man Lymphocytes # (Manual) Monocytes # (Manual) PT INR D-Dimer Heparin Anti-Xa Level ABG pH POC ABG pCO2 POC ABG pO2 ABG pO2 ABG Base Excess ABG Oxyhemoglobin ABG Sodium ABG Potassium ABG Chloride ABG Glucose Carboxyhemoglobin Sodium Potassium 3.5 L Chloride Carbon Dioxide BUN 29 H 27 H Creatinine Glucose 132 H 103 H POC Glucose Hemoglobin A1c Lactic Acid Calcium Phosphorus Magnesium Ferritin Total Bilirubin AST Alkaline Phosphatase Lactate Dehydrogenase Total Creatine Kinase C-Reactive Protein Albumin 2.9 L 2.9 L Triglycerides TSH Arterial Blood Glucose Arterial Blood Ionized Calcium Coronavirus (PCR) Positive A 01/24/21 01/24/21 01/24/21 05:50 20:20 20:20 WBC RBC Hgb Hct Plt Count Lymph % (Auto) Lymph # (Auto) [place] # (Auto) Seg Neutrophils % Seg Neuts % (Manual) Lymphocytes % (Manual) Nucleated RBC % Seg Neutrophils # Seg Neutrophils # Man Lymphocytes # (Manual) Monocytes # (Manual) PT INR D-Dimer Heparin Anti-Xa Level ABG pH POC ABG pCO2 POC ABG pO2 ABG pO2 ABG Base Excess ABG Oxyhemoglobin ABG Sodium ABG Potassium ABG Chloride ABG Glucose Carboxyhemoglobin Sodium 148 H Potassium 5.3 H D Chloride 109.3 H Carbon Dioxide BUN 26 H Creatinine 0.7 L Glucose 130 H POC Glucose Hemoglobin A1c Lactic Acid Calcium Phosphorus Magnesium Ferritin 1031.0 H Total Bilirubin AST 45 H Alkaline Phosphatase Lactate Dehydrogenase 1511 H Total Creatine Kinase C-Reactive Protein 12.00 H Albumin 2.9 L Triglycerides TSH Arterial Blood Glucose Arterial Blood Ionized Calcium Coronavirus (PCR) 01/24/21 01/25/21 01/25/21 20:20 06:22 06:22 WBC RBC Hgb Hct Plt Count Lymph % (Auto) Lymph # (Auto) [place] # (Auto) Seg Neutrophils % Seg Neuts % (Manual) Lymphocytes % (Manual) Nucleated RBC % Seg Neutrophils # Seg Neutrophils # Man Lymphocytes # (Manual) Monocytes # (Manual) PT INR D-Dimer > 05426 H > 56065 H Heparin Anti-Xa Level ABG pH POC ABG pCO2 POC ABG pO2 ABG pO2 ABG Base Excess ABG Oxyhemoglobin ABG Sodium ABG Potassium ABG Chloride ABG Glucose Carboxyhemoglobin Sodium 153 H Potassium 3.4 L D Chloride 116.1 H Carbon Dioxide 21 L BUN 27 H Creatinine Glucose 133 H POC Glucose Hemoglobin A1c Lactic Acid Calcium Phosphorus Magnesium Ferritin Total Bilirubin 1.30 H AST 50 H Alkaline Phosphatase 159 H Lactate Dehydrogenase Total Creatine Kinase C-Reactive Protein Albumin 2.9 L Triglycerides TSH Arterial Blood Glucose Arterial Blood Ionized Calcium Coronavirus (PCR) 01/25/21 01/25/21 01/25/21 06:22 09:35 11:25 WBC RBC Hgb Hct Plt Count Lymph % (Auto) Lymph # (Auto) [place] # (Auto) Seg Neutrophils % Seg Neuts % (Manual) Lymphocytes % (Manual) Nucleated RBC % Seg Neutrophils # Seg Neutrophils # Man Lymphocytes # (Manual) Monocytes # (Manual) PT INR D-Dimer Heparin Anti-Xa Level ABG pH 7.453 H 7.228 L POC ABG pCO2 60.0 H POC ABG pO2 44.9 L 111.7 H ABG pO2 ABG Base Excess ABG Oxyhemoglobin 81.4 L ABG Sodium 153.1 H 150.9 H ABG Potassium 3.3 L ABG Chloride 116.0 H 117.0 H ABG Glucose 151 H 155 H Carboxyhemoglobin Sodium Potassium Chloride Carbon Dioxide BUN Creatinine Glucose POC Glucose Hemoglobin A1c Lactic Acid Calcium Phosphorus Magnesium Ferritin Total Bilirubin AST Alkaline Phosphatase Lactate Dehydrogenase Total Creatine Kinase C-Reactive Protein 16.80 H Albumin Triglycerides TSH Arterial Blood Glucose 151 H 155 H Arterial Blood Ionized Calcium Coronavirus (PCR) 01/25/21 01/26/21 01/26/21 21:00 07:32 07:39 WBC RBC Hgb Hct Plt Count Lymph % (Auto) Lymph # (Auto) [place] # (Auto) Seg Neutrophils % Seg Neuts % (Manual) Lymphocytes % (Manual) Nucleated RBC % Seg Neutrophils # Seg Neutrophils # Man Lymphocytes # (Manual) Monocytes # (Manual) PT INR D-Dimer Heparin Anti-Xa Level ABG pH POC ABG pCO2 POC ABG pO2 68.5 L ABG pO2 ABG Base Excess ABG Oxyhemoglobin 91.3 L ABG Sodium 151.9 H ABG Potassium ABG Chloride 117.0 H ABG Glucose 140 H Carboxyhemoglobin Sodium 151 H Potassium Chloride 116.7 H Carbon Dioxide 20 L BUN 59 H Creatinine 3.4 H D Glucose 121 H POC Glucose Hemoglobin A1c Lactic Acid Calcium Phosphorus Magnesium Ferritin 1921.0 H Total Bilirubin AST 45 H Alkaline Phosphatase 137 H Lactate Dehydrogenase 1559 H Total Creatine Kinase C-Reactive Protein 20.90 H Albumin 2.3 L Triglycerides TSH Arterial Blood Glucose 140 H Arterial Blood Ionized Calcium Coronavirus (PCR) 01/26/21 01/26/21 01/26/21 08:30 17:55 20:39 WBC RBC Hgb Hct Plt Count Lymph % (Auto) Lymph # (Auto) [place] # (Auto) Seg Neutrophils % Seg Neuts % (Manual) Lymphocytes % (Manual) Nucleated RBC % Seg Neutrophils # Seg Neutrophils # Man Lymphocytes # (Manual) Monocytes # (Manual) PT INR D-Dimer Heparin Anti-Xa Level ABG pH 7.287 L POC ABG pCO2 POC ABG pO2 ABG pO2 124.5 H ABG Base Excess -5.0 L ABG Oxyhemoglobin ABG Sodium ABG Potassium ABG Chloride ABG Glucose Carboxyhemoglobin Sodium 152 H Potassium 6.0 H D Chloride 117.2 H Carbon Dioxide 15 L BUN 80 H Creatinine 5.6 H D Glucose 156 H POC Glucose 141 H Hemoglobin A1c Lactic Acid Calcium 7.4 L Phosphorus Magnesium Ferritin Total Bilirubin AST Alkaline Phosphatase Lactate Dehydrogenase Total Creatine Kinase C-Reactive Protein Albumin Triglycerides TSH Arterial Blood Glucose Arterial Blood Ionized Calcium Coronavirus (PCR) 01/26/21 01/27/21 01/27/21 23:14 02:55 05:00 WBC RBC Hgb Hct Plt Count Lymph % (Auto) Lymph # (Auto) [place] # (Auto) Seg Neutrophils % Seg Neuts % (Manual) Lymphocytes % (Manual) Nucleated RBC % Seg Neutrophils # Seg Neutrophils # Man Lymphocytes # (Manual) Monocytes # (Manual) PT INR D-Dimer Heparin Anti-Xa Level ABG pH 7.215 L POC ABG pCO2 48.9 H POC ABG pO2 143.3 H ABG pO2 ABG Base Excess ABG Oxyhemoglobin ABG Sodium 150.0 H ABG Potassium 5.0 H ABG Chloride 118.0 H ABG Glucose 180 H Carboxyhemoglobin Sodium 154 H Potassium 5.3 H Chloride 117.2 H Carbon Dioxide 19 L BUN 92 H Creatinine 6.4 H Glucose 175 H POC Glucose 148 H Hemoglobin A1c Lactic Acid Calcium 7.9 L Phosphorus Magnesium Ferritin Total Bilirubin AST Alkaline Phosphatase Lactate Dehydrogenase Total Creatine Kinase C-Reactive Protein Albumin Triglycerides TSH Arterial Blood Glucose 180 H Arterial Blood Ionized Calcium 4.5 L Coronavirus (PCR) 01/27/21 01/27/21 01/27/21 05:00 05:14 11:42 WBC RBC Hgb Hct Plt Count Lymph % (Auto) Lymph # (Auto) [place] # (Auto) Seg Neutrophils % Seg Neuts % (Manual) Lymphocytes % (Manual) Nucleated RBC % Seg Neutrophils # Seg Neutrophils # Man Lymphocytes # (Manual) Monocytes # (Manual) PT INR D-Dimer Heparin Anti-Xa Level ABG pH POC ABG pCO2 POC ABG pO2 ABG pO2 ABG Base Excess ABG Oxyhemoglobin ABG Sodium ABG Potassium ABG Chloride ABG Glucose Carboxyhemoglobin Sodium Potassium Chloride Carbon Dioxide BUN Creatinine Glucose POC Glucose 159 H 171 H Hemoglobin A1c Lactic Acid Calcium Phosphorus Magnesium Ferritin Total Bilirubin AST Alkaline Phosphatase Lactate Dehydrogenase Total Creatine Kinase 258 H C-Reactive Protein Albumin Triglycerides TSH Arterial Blood Glucose Arterial Blood Ionized Calcium Coronavirus (PCR) 01/27/21 01/28/21 01/28/21 18:00 04:00 04:00 WBC RBC Hgb Hct Plt Count Lymph % (Auto) Lymph # (Auto) [place] # (Auto) Seg Neutrophils % Seg Neuts % (Manual) Lymphocytes % (Manual) Nucleated RBC % Seg Neutrophils # Seg Neutrophils # Man Lymphocytes # (Manual) Monocytes # (Manual) PT INR D-Dimer Heparin Anti-Xa Level ABG pH 7.272 L POC ABG pCO2 48.4 H POC ABG pO2 ABG pO2 ABG Base Excess ABG Oxyhemoglobin ABG Sodium ABG Potassium ABG Chloride ABG Glucose 174 H Carboxyhemoglobin Sodium Potassium Chloride Carbon Dioxide BUN Creatinine Glucose POC Glucose 185 H Hemoglobin A1c Lactic Acid Calcium Phosphorus Magnesium Ferritin Total Bilirubin AST Alkaline Phosphatase Lactate Dehydrogenase Total Creatine Kinase C-Reactive Protein Albumin Triglycerides 369 H TSH Arterial Blood Glucose 174 H Arterial Blood Ionized Calcium 4.3 L Coronavirus (PCR) 01/28/21 01/28/21 01/28/21 10:03 10:03 10:03 WBC RBC Hgb Hct Plt Count 104 L Lymph % (Auto) Lymph # (Auto) [place] # (Auto) Seg Neutrophils % Seg Neuts % (Manual) Lymphocytes % (Manual) Nucleated RBC % Seg Neutrophils # Seg Neutrophils # Man Lymphocytes # (Manual) Monocytes # (Manual) PT 17.3 H INR 1.36 H D-Dimer Heparin Anti-Xa Level ABG pH POC ABG pCO2 POC ABG pO2 ABG pO2 ABG Base Excess ABG Oxyhemoglobin ABG Sodium ABG Potassium ABG Chloride ABG Glucose Carboxyhemoglobin Sodium Potassium 5.2 H Chloride Carbon Dioxide BUN 69 H Creatinine 5.6 H Glucose 220 H POC Glucose Hemoglobin A1c Lactic Acid Calcium 7.7 L Phosphorus Magnesium Ferritin Total Bilirubin AST Alkaline Phosphatase Lactate Dehydrogenase Total Creatine Kinase C-Reactive Protein Albumin Triglycerides TSH Arterial Blood Glucose Arterial Blood Ionized Calcium Coronavirus (PCR) 01/28/21 01/28/21 01/28/21 10:03 11:34 13:40 WBC RBC Hgb Hct Plt Count Lymph % (Auto) Lymph # (Auto) [place] # (Auto) Seg Neutrophils % Seg Neuts % (Manual) Lymphocytes % (Manual) Nucleated RBC % Seg Neutrophils # Seg Neutrophils # Man Lymphocytes # (Manual) Monocytes # (Manual) PT INR D-Dimer Heparin Anti-Xa Level ABG pH POC ABG pCO2 POC ABG pO2 ABG pO2 ABG Base Excess ABG Oxyhemoglobin ABG Sodium ABG Potassium ABG Chloride ABG Glucose Carboxyhemoglobin Sodium Potassium Chloride Carbon Dioxide BUN Creatinine Glucose POC Glucose 221 H Hemoglobin A1c Lactic Acid Calcium Phosphorus Magnesium 2.50 H Ferritin Total Bilirubin AST Alkaline Phosphatase Lactate Dehydrogenase Total Creatine Kinase C-Reactive Protein Albumin Triglycerides TSH 0.013 L Arterial Blood Glucose Arterial Blood Ionized Calcium Coronavirus (PCR) 01/28/21 01/28/21 01/29/21 15:31 18:02 04:00 WBC RBC Hgb Hct Plt Count Lymph % (Auto) Lymph # (Auto) [place] # (Auto) Seg Neutrophils % Seg Neuts % (Manual) Lymphocytes % (Manual) Nucleated RBC % Seg Neutrophils # Seg Neutrophils # Man Lymphocytes # (Manual) Monocytes # (Manual) PT INR D-Dimer Heparin Anti-Xa Level 1.21 H ABG pH 7.229 L POC ABG pCO2 48.8 H POC ABG pO2 ABG pO2 ABG Base Excess ABG Oxyhemoglobin ABG Sodium 135.3 L ABG Potassium 5.2 H ABG Chloride ABG Glucose 264 H Carboxyhemoglobin Sodium Potassium Chloride Carbon Dioxide BUN Creatinine Glucose POC Glucose 215 H Hemoglobin A1c Lactic Acid Calcium Phosphorus Magnesium Ferritin Total Bilirubin AST Alkaline Phosphatase Lactate Dehydrogenase Total Creatine Kinase C-Reactive Protein Albumin Triglycerides TSH Arterial Blood Glucose 264 H Arterial Blood Ionized Calcium 4.0 L Coronavirus (PCR) 01/29/21 01/29/21 01/29/21 04:30 13:23 17:56 WBC RBC Hgb Hct Plt Count Lymph % (Auto) Lymph # (Auto) [place] # (Auto) Seg Neutrophils % Seg Neuts % (Manual) Lymphocytes % (Manual) Nucleated RBC % Seg Neutrophils # Seg Neutrophils # Man Lymphocytes # (Manual) Monocytes # (Manual) PT INR D-Dimer Heparin Anti-Xa Level 0.81 H ABG pH POC ABG pCO2 POC ABG pO2 ABG pO2 ABG Base Excess ABG Oxyhemoglobin ABG Sodium ABG Potassium ABG Chloride ABG Glucose Carboxyhemoglobin Sodium Potassium Chloride Carbon Dioxide BUN Creatinine Glucose POC Glucose 198 H 200 H Hemoglobin A1c Lactic Acid Calcium Phosphorus Magnesium Ferritin Total Bilirubin AST Alkaline Phosphatase Lactate Dehydrogenase Total Creatine Kinase C-Reactive Protein Albumin Triglycerides TSH Arterial Blood Glucose Arterial Blood Ionized Calcium Coronavirus (PCR) 01/29/21 01/29/21 01/30/21 23:12 Unknown 04:05 WBC RBC Hgb Hct Plt Count Lymph % (Auto) Lymph # (Auto) [place] # (Auto) Seg Neutrophils % Seg Neuts % (Manual) Lymphocytes % (Manual) Nucleated RBC % Seg Neutrophils # Seg Neutrophils # Man Lymphocytes # (Manual) Monocytes # (Manual) PT INR D-Dimer Heparin Anti-Xa Level 0.85 H ABG pH 7.288 L POC ABG pCO2 49.7 H POC ABG pO2 169.7 H ABG pO2 ABG Base Excess ABG Oxyhemoglobin 98.4 H ABG Sodium 132.5 L ABG Potassium 4.8 H ABG Chloride ABG Glucose 196 H Carboxyhemoglobin Sodium Potassium Chloride Carbon Dioxide BUN Creatinine Glucose POC Glucose 172 H Hemoglobin A1c Lactic Acid Calcium Phosphorus Magnesium Ferritin Total Bilirubin AST Alkaline Phosphatase Lactate Dehydrogenase Total Creatine Kinase C-Reactive Protein Albumin Triglycerides TSH Arterial Blood Glucose 196 H Arterial Blood Ionized Calcium 4.0 L Coronavirus (PCR) 01/30/21 01/30/21 01/30/21 05:00 05:00 05:32 WBC 27.4 H RBC Hgb 11.6 L Hct 34.8 L Plt Count 126 L Lymph % (Auto) Lymph # (Auto) [place] # (Auto) Seg Neutrophils % Seg Neuts % (Manual) Lymphocytes % (Manual) Nucleated RBC % Seg Neutrophils # Seg Neutrophils # Man Lymphocytes # (Manual) Monocytes # (Manual) PT INR D-Dimer Heparin Anti-Xa Level ABG pH POC ABG pCO2 POC ABG pO2 ABG pO2 ABG Base Excess ABG Oxyhemoglobin ABG Sodium ABG Potassium ABG Chloride ABG Glucose Carboxyhemoglobin Sodium 136 L Potassium Chloride 97.4 L Carbon Dioxide BUN 75 H Creatinine 5.4 H Glucose 184 H POC Glucose 169 H Hemoglobin A1c Lactic Acid Calcium 7.4 L Phosphorus 8.60 H Magnesium 2.40 H Ferritin Total Bilirubin AST Alkaline Phosphatase Lactate Dehydrogenase Total Creatine Kinase C-Reactive Protein Albumin Triglycerides TSH Arterial Blood Glucose Arterial Blood Ionized Calcium Coronavirus (PCR) 01/30/21 11:23 WBC RBC Hgb Hct Plt Count Lymph % (Auto) Lymph # (Auto) [place] # (Auto) Seg Neutrophils % Seg Neuts % (Manual) Lymphocytes % (Manual) Nucleated RBC % Seg Neutrophils # Seg Neutrophils # Man Lymphocytes # (Manual) Monocytes # (Manual) PT INR D-Dimer Heparin Anti-Xa Level ABG pH POC ABG pCO2 POC ABG pO2 ABG pO2 ABG Base Excess ABG Oxyhemoglobin ABG Sodium ABG Potassium ABG Chloride ABG Glucose Carboxyhemoglobin Sodium Potassium Chloride Carbon Dioxide BUN Creatinine Glucose POC Glucose 177 H Hemoglobin A1c Lactic Acid Calcium Phosphorus Magnesium Ferritin Total Bilirubin AST Alkaline Phosphatase Lactate Dehydrogenase Total Creatine Kinase C-Reactive Protein Albumin Triglycerides TSH Arterial Blood Glucose Arterial Blood Ionized Calcium Coronavirus (PCR) Chest x-ray: other (none today) Allied health notes reviewed: nursing
[2021-01-30] MEDS: INSULIN REGULAR, HUMAN 100 UNITS/1 ML SUB-Q SCH ×2 (12:21→18:30)
--- NOTE | 2021-01-30 13:49 | Progress Note ---
Assessment and Plan Cultures: SARS CoV2 PCR: positive 01/22/2021 blood culture: No growth 01/25/2021 endotracheal aspirate culture: Mold, sent to reference laboratory for further evaluation. A/P: 55/M with obesity, admitted with: #Shock: likely secondary to severe COVID-19. #Bilateral pneumonia: Secondary to COVID-19. Very high d-dimer. DVT scan negative. #Mold in sputum: ?colonization. Awaiting ID, meanwhile, initiated PO voriconazole given steroids and Actemra. Avoid ABLC given renal failure. #Acute hypoxic respiratory failure: Failed BiPAP. Requiring mechanical ventilation. #SEDRICK: creatinine elevated, now on HD per nephrology. #Morbid obesity Recs: -Actemra administered 01/26/2021 -continue IV/PO Dexamethasone -continue PO voriconazole given steroids and Actemra. Avoid ABLC given renal failure. F/u Aspergillus galactomannan and 1,3 [id number] -prophylactic anticoagulation based on d-dimer per hospital protocol. -trend ferritin, LDH, d-dimer, CRP every 2-3 days for risk stratification and to assess disease progression -extremely poor prognosis Misael Dudley MD, FACP [facility] ([facility] O: [phone] F: [phone] Subjective Date of service: 01/30/21 Principal diagnosis: Ac hypoxemic resp failure; COVID-19; Pneumonia; Sepsis; Mor bid obesity Interval history: No fever. Remains on the vent with high requirements, 90% FiO2, 20 PEEP. Creatinine 5.4. Remains on pressors. Objective - Exam Narrative Exam: Physical Exam (reviewed in chart to minimize risk of transmission) Constitutional: deferred Head, Ears, Nose: deferred Eyes: deferred Neck: deferred Oral: deferred Cardiovascular: deferred Respiratory: deferred GI: deferred Musculoskeletal: deferred Skin: deferred Hem/Lymphatic: deferred Psych: deferred Neurological: deferred - Constitutional Vitals: Vital Signs Temp Pulse Resp BP Pulse Ox 96.6 F L 65 30 H 110/64 97 01/30/21 12:00 01/30/21 12:14 01/30/21 11:15 01/30/21 12:14 01/30/21 12:14 Temperature -Last 24 Hours Temperature 96.6 F Temperature 97 F Temperature 97.3 F Temperature 97.9 F Temperature 97.9 F Temperature 97.3 F Temperature 97.0 F - Labs CBC & Chem 7: 01/30/21 05:00 01/30/21 05:00 Labs: Abnormal lab results 01/29/21 01/29/21 01/30/21 Range/Units 17:56 23:12 04:05 WBC (4.5-11.0) K/mm3 Hgb (11.8-15.2) gm/dl Hct (35.5-45.6) % Plt Count (140-440) K/mm3 ABG pH 7.288 L (7.320-7.450) POC ABG pCO2 49.7 H (32.0-48.0) mmHg POC ABG pO2 169.7 H (83-108) mmHg ABG Oxyhemoglobin 98.4 H (94-98) ABG Sodium 132.5 L (136.0-145.0) mmol/L ABG Potassium 4.8 H (3.40-4.50) mmol/L ABG Glucose 196 H (65-95) mg/dL Sodium (137-145) mmol/L Chloride (98-107) mmol/L BUN (9-20) mg/dL Creatinine (0.8-1.3) mg/dL Glucose (75-100) mg/dL POC Glucose 200 H 172 H (70-105) mg/dL Calcium (8.4-10.2) mg/dL Phosphorus (2.5-4.5) mg/dL Magnesium (1.7-2.3) mg/dL Arterial Blood Glucose 196 H (65-95) mg/dL Arterial Blood Ionized Calcium 4.0 L (4.6-5.3) mg/dL 01/30/21 01/30/21 01/30/21 Range/Units 05:00 05:00 05:32 WBC 27.4 H (4.5-11.0) K/mm3 Hgb 11.6 L (11.8-15.2) gm/dl Hct 34.8 L (35.5-45.6) % Plt Count 126 L (140-440) K/mm3 ABG pH (7.320-7.450) POC ABG pCO2 (32.0-48.0) mmHg POC ABG pO2 (83-108) mmHg ABG Oxyhemoglobin (94-98) ABG Sodium (136.0-145.0) mmol/L ABG Potassium (3.40-4.50) mmol/L ABG Glucose (65-95) mg/dL Sodium 136 L (137-145) mmol/L Chloride 97.4 L (98-107) mmol/L BUN 75 H (9-20) mg/dL Creatinine 5.4 H (0.8-1.3) mg/dL Glucose 184 H (75-100) mg/dL POC Glucose 169 H (70-105) mg/dL Calcium 7.4 L (8.4-10.2) mg/dL Phosphorus 8.60 H (2.5-4.5) mg/dL Magnesium 2.40 H (1.7-2.3) mg/dL Arterial Blood Glucose (65-95) mg/dL Arterial Blood Ionized Calcium (4.6-5.3) mg/dL 01/30/21 Range/Units 11:23 WBC (4.5-11.0) K/mm3 Hgb (11.8-15.2) gm/dl Hct (35.5-45.6) % Plt Count (140-440) K/mm3 ABG pH (7.320-7.450) POC ABG pCO2 (32.0-48.0) mmHg POC ABG pO2 (83-108) mmHg ABG Oxyhemoglobin (94-98) ABG Sodium (136.0-145.0) mmol/L ABG Potassium (3.40-4.50) mmol/L ABG Glucose (65-95) mg/dL Sodium (137-145) mmol/L Chloride (98-107) mmol/L BUN (9-20) mg/dL Creatinine (0.8-1.3) mg/dL Glucose (75-100) mg/dL POC Glucose 177 H (70-105) mg/dL Calcium (8.4-10.2) mg/dL Phosphorus (2.5-4.5) mg/dL Magnesium (1.7-2.3) mg/dL Arterial Blood Glucose (65-95) mg/dL Arterial Blood Ionized Calcium (4.6-5.3) mg/dL
--- NOTE | 2021-01-30 15:43 | Progress Note ---
Assessment and Plan Acute Respiratory Failure COVID-19 PNA Septic Shock * Patient intubated. ID following * Continue to wean pressors as tolerated SEDRICK (initiated on dialysis) * Nephrology following New Onset AF with RVR * Echo 01/29/2021- Technically difficult study, no interpretable images were seen. Unable to draw conclusions * Continue anticoagulation with IV heparin gtt for now. * PO Amio 200mg daily. Follow LFTs Will follow. Pt seen in conjunction with Dr. Cordero, who agrees with the assessment and plan of care. - Patient Problems (1) Acute respiratory failure due to COVID-19 Current Visit: Yes Status: Acute (2) Atrial fibrillation with RVR Current Visit: Yes Status: Acute (3) Hypotension Current Visit: Yes Status: Acute (4) Morbid obesity with BMI of 40.0-44.9, adult Current Visit: Yes Status: Acute (5) Multifocal pneumonia Current Visit: Yes Status: Acute (6) Sepsis Current Visit: Yes Status: Acute (7) Chronic venous insufficiency Current Visit: Yes Status: Chronic Subjective Date of service: 01/30/21 Principal diagnosis: Ac hypoxemic resp failure; COVID-19; Pneumonia; Sepsis; Morbid obesity Interval history: Patient is intubated sinus 60s on with episodes of bradycardia Objective Last Vital Signs Temp 96.6 F L 01/30/21 12:00 Pulse 65 01/30/21 12:14 Resp 30 H 01/30/21 11:15 BP 110/64 01/30/21 12:14 Pulse Ox 97 01/30/21 12:14 - Physical Examination General: Other (intubated) HEENT: Positive: Normocephaly Neck: Negative: JVD/HJR Cardiac: Positive: Reg Rate and Rhythm Lungs: Positive: Ventilated Respirations Neuro: Positive: Other (intubated) Abdomen: Positive: Soft Skin: Negative: Rash Musculoskeletal: No Fluid Collection Extremities: Present: Other (chronic changes) - Labs and Meds CBC 01/30/21 Range/Units 05:00 WBC 27.4 H (4.5-11.0) K/mm3 RBC 4.02 (3.65-5.03) M/mm3 Hgb 11.6 L (11.8-15.2) gm/dl Hct 34.8 L (35.5-45.6) % Plt Count 126 L (140-440) K/mm3 Comprehensive Metabolic Panel 01/30/21 Range/Units 05:00 Sodium 136 L (137-145) mmol/L Potassium 5.0 (3.6-5.0) mmol/L Chloride 97.4 L (98-107) mmol/L Carbon Dioxide 25 (22-30) mmol/L BUN 75 H (9-20) mg/dL Creatinine 5.4 H (0.8-1.3) mg/dL Glucose 184 H (75-100) mg/dL Calcium 7.4 L (8.4-10.2) mg/dL - Imaging and Cardiology EKG: report reviewed, image reviewed Echo: report reviewed - Telemetry EKG Rhythm: Sinus Rhythm - EKG Sinus rhythms and dysrhythmias: sinus rhythm Repolarization changes or abnormalities: nonspecific abnormality, ST segment, and/or T wave - Allied health notes Allied health notes reviewed: nursing
--- NOTE | 2021-01-30 20:24 | Progress Note ---
<CHAVEZANGIE NelsonNat - Last Filed: 01/30/21 20:22> Assessment and Plan Assessment and plan: This is a 55-year-old male with morbid obesity, former nicotine abuse and venous insufficiency who was admitted as a COVID-19 PUI with acute hypoxic respiratory failure, sepsis, multifocal pneumonia Neuro: Acute metabolic encephalopathy -RN to lighten sedation -EEG pending -Avoid delirium -Goal RASS -2 to -3 Cardio: A. fib with RVR -Cardiology consulted, patient recommendations -Patient transition from IV amiodarone to p.o. amiodarone -Echocardiogram completed ee results -Blood pressure monitor per protocol -Wean vasopressor support for MAP goal greater than 65 Respiratory: Acute hypoxic respiratory failure -Intubated -CCM consulted, patient recommendations -Current vent settings: AC/HI VC tidal volume 500, rate 30, PEEP of 20, 90% FiO2 -ABG reviewed -Serial ABG and CXR -VAP bundle -Continuous SPO2 monitoring GI: MO, malnutrition, high residuals -Patient had high residuals on 01/30 and 2 feeding was turned off -Per RN DHT is clogged and will be replaced -Place NG tube to low intermittent suction -Reglan every 6 -BR: Senokot -Resume tube feeding when tolerated -01/30 KUB reviewed : Acute kidney injury secondary to vasomotor nephropathy -Nephrology consulted, patient recommendations -Patient initiated on hemodialysis 01/27 -HD per nephrology -Strict intake and output -Avoid nephrotoxic medications-renally dose medications -trend BMP -Past 24 hours +[id number] Endo: NAD -SSI -Accu-Cheks every 6 -Avoid hypoglycemia ID: COVID-19 pneumonia, septic shock, bilateral pneumonia,? Mold in sputum -Infectious disease consulted, appreciate recommendations -Contact/droplet isolation -Dexamethasone -Actemra administered 01/26 -P.o. voriconazole given steroids and Actemra -Per infectious disease: Avoid ABLC given renal failure -Follow-up ID labs -Trend COVID-19 inflammatory markers -S/p ABX therapy for pneumonia -Monitor WBC and fever curve -Follow blood cultures Heme: Elevated D-dimer, leukocytosis, thrombocytopenia -Anticoagulation with heparin drip -Trend CBC -Transfuse for hemoglobin less than 7 -Lower extremity Doppler ultrasound shows no evidence of DVT The high probability of a clinically significant, sudden or life threatening deterioration of the [multi] system(s) required my full and direct attention, intervention and personal management. The aggregate critical care time was [60] minutes. This time is in addition to time spent performing reported procedures but includes the following: [x] Data Review and interpretation [x] Patient assessment and monitoring of vital signs [x] Documentation [x] Medication orders and management Disposition Plan: icu Total Time Spent with Patient (Minutes): 60 History Interval history: This is a 55-year-old male with morbid obesity venous insufficiency, former smoker who presented to the emergency department on 01/22 for SOB x4 days prior to admission and patient was diagnosed with COVID-19 at OSH on 01/16 after the patient was discharged. Patient had worsening symptoms therefore he presented to [facility]. Patient had fever, chills, headache, cough, shortness of breath, body aches, loss of taste and smell. Upon arrival of EMS patient was saturating at 60% on room air and received albuterol, magnesium, Solu-Medrol. Patient remained hypoxic in spite of being on a nonrebreather and was started on a BiPAP in the emergency department. Patient was admitted to the hospitalist service with consults to ID, pulmonology and later nephrology and cardiology. Patient admitted for acute hypoxic respiratory failure, sepsis, multifocal pneumonia, PUI for COVID-19. 01/30: This morning patient is not on sedation and does not follow commands, per RN report patient does not have cough/gag. No acute events reported overnight. EEG ordered, KUB and NGT to LIS for high residuals. 01/29: Patient is in acute respiratory failure on continuous BiPAP With low saturations intermittently Patient has severe Covid pneumonia, elevated D-dimers on empiric full dose anticoagulation Not a candidate for CTA chest as patient is unstable Patient is critically ill in severe distress Patient has low saturations even on continuous BiPAP May need intubation and mechanical ventilation Vital signs noted 01/28/2021 Patient intubated Sedated Same condition On pressors Poor prognosis 01/27/2021 Patient intubated Sedated On vent protocol 01/26/2021 Patient is intubated Patient is Covid positive 01/25/2021; patient for intubation and mechanical ventilation As patient is severely hypoxemic even on continuous BiPAP 01/24: Patient is severely hypoxemic requiring continuous BiPAP, with borderline O2 sats Pulmonary critical following, stat ABG If no improvement intubate as needed Patient is elevated D-dimers, in the setting of COVID-19 morbid obesity respiratory failure requiring continuous BiPAP We will treat empirically with full dose anticoagulation, check CTA chest and lower extremity venous Doppler to rule out PE and DVT. Patient is critically ill with poor prognosis Plan of care reviewed with the patient and his nurse 01/23: We will closely monitor the patient and adjust management as needed Follow khan PCR test, consult ID if needed Hospitalist Physical - Constitutional Vitals: Temp Pulse Resp BP Pulse Ox 97.3 F L 73 11 L 93/48 92 01/30/21 19:52 01/30/21 20:15 01/30/21 20:15 01/30/21 20:15 01/30/21 20:15 General appearance: Present: no acute distress, well-nourished, other (sedated) - Neck Neck: Absent: masses or JVD, cervical LAD - Respiratory Respiratory effort: normal Respiratory: bilateral: diminished - Cardiovascular Rhythm: regular Heart Sounds: Present: S1 & S2. Absent: systolic murmur, diastolic murmur - Extremities Extremities: no ischemia, pulses intact, pulses symmetrical, normal temperature, normal color Peripheral Pulses: within normal limits - Abdominal General gastrointestinal: soft, non-tender, normal bowel sounds - Integumentary Integumentary: Present: warm, dry - Psychiatric Psychiatric: other (sedated) - Neurologic Neurologic: other (sedated) HEART Score - HEART Score Age: 45-65 Risk factors: 1-2 risk factors Troponin: < normal limit - Critical Actions Critical Actions: 0-3 pts:0.9-1.7%risk of adverse cardiac event.Candidate for discharge Results - Labs CBC & Chem 7: 01/30/21 05:00 01/30/21 05:00 Labs: Laboratory Last Values WBC 27.4 K/mm3 (4.5-11.0) H 01/30/21 05:00 RBC 4.02 M/mm3 (3.65-5.03) 01/30/21 05:00 Hgb 11.6 gm/dl (11.8-15.2) L 01/30/21 05:00 Hct 34.8 % (35.5-45.6) L 01/30/21 05:00 MCV 87 fl (84-94) 01/30/21 05:00 MCH 29 pg (28-32) 01/30/21 05:00 MCHC 34 % (32-34) 01/30/21 05:00 RDW 14.8 % (13.2-15.2) 01/30/21 05:00 Plt Count 126 K/mm3 (140-440) L 01/30/21 05:00 Lymph % (Auto) 4.4 % (13.4-35.0) L 01/23/21 05:29 [place] % (Auto) 6.4 % (0.0-7.3) 01/23/21 05:29 Lymph # (Auto) 0.8 K/mm3 (1.2-5.4) L 01/23/21 05:29 [place] # (Auto) 1.2 K/mm3 (0.0-0.8) H 01/23/21 05:29 Add Manual Diff Complete 01/22/21 11:06 Total Counted 100 01/22/21 11:06 Seg Neutrophils % 89.1 % (40.0-70.0) H 01/23/21 05:29 Seg Neuts % (Manual) 92.0 % (40.0-70.0) H 01/22/21 11:06 Band Neutrophils % 2.0 % 01/22/21 11:06 Lymphocytes % (Manual) 1.0 % (13.4-35.0) L 01/22/21 11:06 Monocytes % (Manual) 5.0 % (0.0-7.3) 01/22/21 11:06 Nucleated RBC % 1.0 % (0.0-0.9) H 01/22/21 11:06 Seg Neutrophils # 16.9 K/mm3 (1.8-7.7) H 01/23/21 05:29 Seg Neutrophils # Man 17.7 K/mm3 (1.8-7.7) H 01/22/21 11:06 Band Neutrophils # 0.4 K/mm3 01/22/21 11:06 Lymphocytes # (Manual) 0.2 K/mm3 (1.2-5.4) L 01/22/21 11:06 Abs React Lymphs (Man) 0.0 K/mm3 01/22/21 11:06 Monocytes # (Manual) 1.0 K/mm3 (0.0-0.8) H 01/22/21 11:06 Eosinophils # (Manual) 0.0 K/mm3 (0.0-0.4) 01/22/21 11:06 Basophils # (Manual) 0.0 K/mm3 (0.0-0.1) 01/22/21 11:06 Metamyelocytes # 0.0 K/mm3 01/22/21 11:06 Myelocytes # 0.0 K/mm3 01/22/21 11:06 Promyelocytes # 0.0 K/mm3 01/22/21 11:06 Blast Cells # 0.0 K/mm3 01/22/21 11:06 WBC Morphology Not Reportable 01/22/21 11:06 Hypersegmented Neuts Not Reportable 01/22/21 11:06 Hyposegmented Neuts Not Reportable 01/22/21 11:06 Hypogranular Neuts Not Reportable 01/22/21 11:06 Smudge Cells Not Reportable 01/22/21 11:06 Toxic Granulation Not Reportable 01/22/21 11:06 Toxic Vacuolation Not Reportable 01/22/21 11:06 Dohle Bodies Not Reportable 01/22/21 11:06 Pelger-Huet Anomaly Not Reportable 01/22/21 11:06 Rd Rods Not Reportable 01/22/21 11:06 Platelet Estimate Consistent w auto 01/22/21 11:06 Clumped Platelets Not Reportable 01/22/21 11:06 Plt Clumps, EDTA Not Reportable 01/22/21 11:06 Large Platelets Not Reportable 01/22/21 11:06 Giant Platelets Not Reportable 01/22/21 11:06 Platelet Satelliting Not Reportable 01/22/21 11:06 Plt Morphology Comment Not Reportable 01/22/21 11:06 RBC Morphology Normal 01/22/21 11:06 Dimorphic RBCs Not Reportable 01/22/21 11:06 Polychromasia Not Reportable 01/22/21 11:06 Hypochromasia Not Reportable 01/22/21 11:06 Poikilocytosis Not Reportable 01/22/21 11:06 Anisocytosis Not Reportable 01/22/21 11:06 Microcytosis Not Reportable 01/22/21 11:06 Macrocytosis Not Reportable 01/22/21 11:06 Spherocytes Not Reportable 01/22/21 11:06 Pappenheimer Bodies Not Reportable 01/22/21 11:06 Sickle Cells Not Reportable 01/22/21 11:06 Target Cells Not Reportable 01/22/21 11:06 Tear Drop Cells Not Reportable 01/22/21 11:06 Ovalocytes Not Reportable 01/22/21 11:06 Helmet Cells Not Reportable 01/22/21 11:06 [place] Bodies Not Reportable 01/22/21 11:06 [place] Rings Not Reportable 01/22/21 11:06 [place] Cells Not Reportable 01/22/21 11:06 Bite Cells Not Reportable 01/22/21 11:06 Crenated Cell Not Reportable 01/22/21 11:06 Elliptocytes Not Reportable 01/22/21 11:06 Acanthocytes (Spur) Not Reportable 01/22/21 11:06 Rouleaux Not Reportable 01/22/21 11:06 Hemoglobin C Crystals Not Reportable 01/22/21 11:06 Schistocytes Not Reportable 01/22/21 11:06 Malaria parasites Not Reportable 01/22/21 11:06 [place] Bodies Not Reportable 01/22/21 11:06 Hem Pathologist Commnt No 01/22/21 11:06 PT 17.3 Sec. (12.2-14.9) H 01/28/21 10:03 INR 1.36 (0.87-1.13) H 01/28/21 10:03 APTT 29.2 Sec. (24.2-36.6) 01/28/21 10:03 D-Dimer > 80223 ng/mlDDU (0-234) H 01/25/21 06:22 Heparin Anti-Xa Level 0.85 U.I./ml (0.3-0.7) H 01/29/21 Unknown ABG pH 7.288 (7.320-7.450) L 01/30/21 04:05 POC ABG pCO2 49.7 mmHg (32.0-48.0) H 01/30/21 04:05 ABG pCO2 46.6 mm Hg 01/26/21 08:30 POC ABG pO2 169.7 mmHg (83-108) H 01/30/21 04:05 ABG pO2 124.5 mm Hg (80.0-90.0) H 01/26/21 08:30 POC ABG HCO3 23.3 01/30/21 04:05 ABG HCO3 21.7 mmol/L (20.0-26.0) 01/26/21 08:30 ABG O2 Saturation 99.3 (0-100) 01/30/21 04:05 ABG O2 Content 19.4 (0.0-44) 01/26/21 08:30 POC ABG Base Excess -3.6 01/30/21 04:05 ABG Base Excess -5.0 mmol/L (-2.0-3.0) L 01/26/21 08:30 ABG Hemoglobin 12.5 (12.0-17.5) 01/30/21 04:05 ABG Oxyhemoglobin 98.4 (94-98) H 01/30/21 04:05 ABG Carboxyhemoglobin 1.2 % (0.0-5.0) 01/26/21 08:30 ABG Methemoglobin 0.3 (0.0-1.5) 01/30/21 04:05 ABG Sodium 132.5 mmol/L (136.0-145.0) L 01/30/21 04:05 ABG Potassium 4.8 mmol/L (3.40-4.50) H 01/30/21 04:05 ABG Chloride 99.0 mmol/L (98-107) 01/30/21 04:05 ABG Glucose 196 mg/dL (65-95) H 01/30/21 04:05 Oxyhemoglobin 96.2 % (95.0-99.0) 01/26/21 08:30 Carboxyhemoglobin 0.6 (0.5-1.5) 01/30/21 04:05 FiO2 100 % 01/26/21 08:30 FiO2 % 100.0 01/30/21 04:05 Sodium 136 mmol/L (137-145) L 01/30/21 05:00 Potassium 5.0 mmol/L (3.6-5.0) 01/30/21 05:00 Chloride 97.4 mmol/L (98-107) L 01/30/21 05:00 Carbon Dioxide 25 mmol/L (22-30) 01/30/21 05:00 Anion Gap 19 mmol/L 01/30/21 05:00 BUN 75 mg/dL (9-20) H 01/30/21 05:00 Creatinine 5.4 mg/dL (0.8-1.3) H 01/30/21 05:00 Estimated GFR 11 ml/min 01/30/21 05:00 BUN/Creatinine Ratio 14 % 01/30/21 05:00 Glucose 184 mg/dL (75-100) H 01/30/21 05:00 POC Glucose 123 mg/dL (70-105) H 01/30/21 18:13 Hemoglobin A1c 6.2 % (4-6) H 01/22/21 11:06 Lactic Acid 4.20 mmol/L (0.7-2.0) H* 01/22/21 11:06 Calcium 7.4 mg/dL (8.4-10.2) L 01/30/21 05:00 Phosphorus 8.60 mg/dL (2.5-4.5) H 01/30/21 05:00 Magnesium 2.40 mg/dL (1.7-2.3) H 01/30/21 05:00 Ferritin 1921.0 ng/mL (30.0-300.0) H 01/26/21 07:39 Total Bilirubin 1.20 mg/dL (0.1-1.2) 01/26/21 07:32 AST 45 units/L (5-40) H 01/26/21 07:32 ALT 25 units/L (7-56) 01/26/21 07:32 Alkaline Phosphatase 137 units/L (35-129) H 01/26/21 07:32 Lactate Dehydrogenase 1559 units/L (91-180) H 01/26/21 07:32 Total Creatine Kinase 258 units/L (55-170) H 01/27/21 05:00 C-Reactive Protein 20.90 mg/dL (0.00-1.30) H 01/26/21 07:32 Total Protein 6.9 g/dL (6.3-8.2) 01/26/21 07:32 Albumin 2.3 g/dL (3.9-5) L 01/26/21 07:32 Albumin/Globulin Ratio 0.5 % 01/26/21 07:32 Triglycerides 369 mg/dL (2-149) H 01/28/21 04:00 Procalcitonin 2.11 ng/mL (<0.15) 01/25/21 06:22 TSH 0.013 mlU/mL (0.270-4.200) L 01/28/21 10:03 Thyroxine (T4) 3.3 ug/dL (4.0-12.0) L 01/30/21 15:35 Arterial Blood Glucose 196 mg/dL (65-95) H 01/30/21 04:05 Arterial Blood Ionized Calcium 4.0 mg/dL (4.6-5.3) L 01/30/21 04:05 Coronavirus (PCR) Positive (Negative) A 01/23/21 09:00 Hepatitis A IgM Ab Non-reactive (NonReactive) 01/27/21 11:41 Hep Bs Antigen Nonreactive (Negative) 01/27/21 11:41 Hep B Core IgM Ab Non-reactive (NonReactive) 01/27/21 11:41 Hepatitis C Antibody Non-reactive (NonReactive) 01/27/21 11:41 Microbiology: Microbiology 01/25/21 Unknown Sputum - Endotracheal Wash Sputum Culture - Preliminary Ramirez/IV: Voiding Method Incontinent Active Medications - Current Medications Current Medications: Generic Name Dose Route Start Last Admin Trade Name Freq PRN Reason Stop Dose Admin Acetaminophen 650 mg 01/22/21 23:03 Acetaminophen 325 Mg Tab PO Q4H PRN Pain MILD(1-3)/Fever >100.5/ANEDRSEN Albumin Human 25 gm 01/27/21 09:35 Albumin Human 25% (25 Gm/100 Ml) Inj IV MELECIO PRN Hypotension Amiodarone HCl 200 mg 01/30/21 10:00 01/30/21 10:00 Amiodarone 200 Mg Tab PO 200 mg DAILY JACK Administration Lipase/Protease/Amylase 1 each 01/27/21 11:37 Lipase 10,500/Protease 25,000/Amylase 43,750 (Units) Cap FEEDTUBE PRN PRN For Clogged Feeding Tube Dexamethasone 10 mg 01/24/21 22:00 01/29/21 21:58 Dexamethasone 4 Mg/Ml Vial IV 01/31/21 22:01 10 mg Q24HR@2200 JACK Administration Dextrose 50 ml 01/29/21 12:24 Dextrose 50% In Water (25gm) 50 Ml Syringe IV Q30MIN PRN Hypoglycemia Protocol Famotidine 20 mg 01/27/21 10:00 01/30/21 09:59 Famotidine 20 Mg/2 Ml Inj IV 20 mg DAILY JACK Administration Fentanyl 50 mcg 01/25/21 11:32 01/28/21 06:10 Fentanyl 100 Mcg/2 Ml Inj IV 50 mcg Q10MIN PRN Administration ANALGESIA Heparin Sodium (Porcine) 5,000 unit 01/28/21 09:27 Heparin 10,000 Units/10 Ml Vial IV Q6H PRN Anti-Xa Assay < 0.1 units/ml Hydrophilic Ointment 1 applic 01/25/21 13:27 Lip Therapy Vaseline TP Q2HR PRN Dry Lips Fentanyl Citrate 2,000 mcg in 100 mls @ 6.357 mls/hr 01/25/21 12:00 01/30/21 05:21 Fentanyl Drip Premix IV 0 mcg/kg/hr TITR JACK 0 mls/hr Titration Protocol 1 MCG/KG/HR Propofol 1,000 mg in 100 mls @ 3.814 mls/hr 01/25/21 14:00 01/30/21 05:19 Diprivan 10 Mg/Ml IV 0 mcg/kg/min TITR JACK 0 mls/hr Titration Protocol 5 MCG/KG/MIN Norepinephrine 4 mg in 250 mls @ 7.5 mls/hr 01/25/21 17:04 01/30/21 08:53 Levophed Drip 4 Mg/Ns 250 Ml IV 1 mcg/min TITR JACK 3.75 mls/hr Titration Protocol 2 MCG/MIN Midazolam HCl 100 mg/ Sodium 100 mls @ 1 mls/hr 01/26/21 11:00 01/30/21 05:24 Chloride IV 0 mg/hr TITR JACK 0 mls/hr Titration Protocol 1 MG/HR Sodium Chloride 100 mls @ 999 mls/hr 01/27/21 09:35 Nacl 0.9% IV MELECIO PRN Hypotension Vasopressin 20 unit/ Sodium 101 mls @ 9.09 mls/hr 01/28/21 07:00 01/30/21 08:55 Chloride IV Infused TITR JACK Titration Protocol 0.03 UNITS/MIN Heparin Sodium/Sodium Chloride 25,000 unit in 500 mls @ 30 mls/hr 01/28/21 11:00 01/30/21 05:50 Heparin/ 0.45% Nacl-25,000 Unit/500 Ml IV 1,050 units/hr TITR JACK 21 mls/hr Administration Protocol 1,500 UNITS/HR Insulin Human Regular 0 units 01/29/21 13:00 01/30/21 18:30 Insulin Regular, Human 100 Units/1 Ml SUB-Q Not Given Q6HR [facility] Protocol Metoclopramide HCl 5 mg 01/30/21 12:00 01/30/21 18:36 Metoclopramide 10 Mg/2 Ml Inj IV 5 mg Q6HR JACK Administration Midazolam HCl 2 mg 01/25/21 16:13 Midazolam 2 Mg/2 Ml Inj IV Q10MIN PRN Sedation Multi-Ingred Cream/Lotion/Oil/Oint 1 applic 01/25/21 13:27 Mineral Oil/Petrolatum, White Ophth Oint 3.5 Gm OU Q4HR PRN Dry Eye(s) Ondansetron HCl 4 mg 01/22/21 23:03 Ondansetron 4 Mg/2 Ml Inj IV Q8H PRN Nausea And Vomiting Senna/Docusate Sodium 1 tab 01/25/21 22:00 01/30/21 10:00 Sennosides/Docusate Sodium 8.6/50 Mg Tab FEEDTUBE 1 tab BID JACK Administration Simple Syrup 15 ml 01/27/21 11:37 Simple Syrup 15 Ml FEEDTUBE PRN PRN Hypoglycemia Simple Syrup 30 ml 01/27/21 11:37 Simple Syrup 15 Ml FEEDTUBE PRN PRN Hypoglycemia Sodium Bicarbonate 325 mg 01/27/21 11:37 Sodium Bicarbonate 325 Mg Tab FEEDTUBE PRN PRN For Clogged Feeding Tube Sodium Chloride 10 ml 01/22/21 23:45 01/30/21 10:01 Sodium Chloride 0.9% 10 Ml Flush Syringe IV 10 ml BID JACK Administration Sodium Chloride 10 ml 01/22/21 23:03 Sodium Chloride 0.9% 10 Ml Flush Syringe IV PRN PRN LINE FLUSH Voriconazole 300 mg 01/29/21 11:00 01/30/21 09:59 Voriconazole 200 Mg Tab PO 300 mg Q12HR JACK Administration Nutrition/Malnutrition Assess - Dietary Evaluation Nutrition/Malnutrition Findings: Nutrition Notes Start: 01/24/21 13:25 Freq: Status: Active Protocol: Document 01/29/21 11:53 (Rec: 01/29/21 11:56 [id number]) Nutrition Notes Initial or Follow up Brief Note Current Diagnosis Sepsis,Respiratory Failure, Malnutrition Other Pertinent Diagnosis covid-19, pneumonia Current Diet Nepro 1.8 at 30 ml/hr Subjective/Other Information TF was running at goal rate. It was stopped yesterday due to gastric residuals. They are >400 this AM. Pt was started on Reglan and RN will restart TF once residuals are <250ml. Nutrition Intervention Nutrition Support: Nepro at 30 ml/hr with a free water flush of 275 ml q4h. once hypernatermia resolves, resume flush of 175 ml q4h Kcal 1,296 Protein (gm) 58 Fluid (mL) 523 Follow-Up By: 01/31/21 Additional Comments F/u: TF start and tolerance <STAR CHRISTY - Last Filed: 01/31/21 07:39> Assessment and Plan Assessment and plan: I saw and evaluated the patient. Discussed with the nurse practitioner and agree with their findings and plan as documented in this note. Hospitalist Physical - Constitutional Vitals: Temp Pulse Resp BP Pulse Ox 99.1 F 78 13 126/63 94 01/31/21 03:29 01/31/21 06:30 01/31/21 06:30 01/31/21 06:30 01/31/21 06:30 Results - Labs CBC & Chem 7: 01/31/21 03:30 01/31/21 03:30 Labs: Laboratory Last Values WBC 31.3 K/mm3 (4.5-11.0) H 01/31/21 03:30 RBC 3.94 M/mm3 (3.65-5.03) 01/31/21 03:30 Hgb 11.4 gm/dl (11.8-15.2) L 01/31/21 03:30 Hct 34.6 % (35.5-45.6) L 01/31/21 03:30 MCV 88 fl (84-94) 01/31/21 03:30 MCH 29 pg (28-32) 01/31/21 03:30 MCHC 33 % (32-34) 01/31/21 03:30 RDW 14.7 % (13.2-15.2) 01/31/21 03:30 Plt Count 143 K/mm3 (140-440) 01/31/21 03:30 Lymph % (Auto) 4.4 % (13.4-35.0) L 01/23/21 05:29 [place] % (Auto) 6.4 % (0.0-7.3) 01/23/21 05:29 Lymph # (Auto) 0.8 K/mm3 (1.2-5.4) L 01/23/21 05:29 [place] # (Auto) 1.2 K/mm3 (0.0-0.8) H 01/23/21 05:29 Add Manual Diff Complete 01/22/21 11:06 Total Counted 100 01/22/21 11:06 Seg Neutrophils % 89.1 % (40.0-70.0) H 01/23/21 05:29 Seg Neuts % (Manual) 92.0 % (40.0-70.0) H 01/22/21 11:06 Band Neutrophils % 2.0 % 01/22/21 11:06 Lymphocytes % (Manual) 1.0 % (13.4-35.0) L 01/22/21 11:06 Monocytes % (Manual) 5.0 % (0.0-7.3) 01/22/21 11:06 Nucleated RBC % 1.0 % (0.0-0.9) H 01/22/21 11:06 Seg Neutrophils # 16.9 K/mm3 (1.8-7.7) H 01/23/21 05:29 Seg Neutrophils # Man 17.7 K/mm3 (1.8-7.7) H 01/22/21 11:06 Band Neutrophils # 0.4 K/mm3 01/22/21 11:06 Lymphocytes # (Manual) 0.2 K/mm3 (1.2-5.4) L 01/22/21 11:06 Abs React Lymphs (Man) 0.0 K/mm3 01/22/21 11:06 Monocytes # (Manual) 1.0 K/mm3 (0.0-0.8) H 01/22/21 11:06 Eosinophils # (Manual) 0.0 K/mm3 (0.0-0.4) 01/22/21 11:06 Basophils # (Manual) 0.0 K/mm3 (0.0-0.1) 01/22/21 11:06 Metamyelocytes # 0.0 K/mm3 01/22/21 11:06 Myelocytes # 0.0 K/mm3 01/22/21 11:06 Promyelocytes # 0.0 K/mm3 01/22/21 11:06 Blast Cells # 0.0 K/mm3 01/22/21 11:06 WBC Morphology Not Reportable 01/22/21 11:06 Hypersegmented Neuts Not Reportable 01/22/21 11:06 Hyposegmented Neuts Not Reportable 01/22/21 11:06 Hypogranular Neuts Not Reportable 01/22/21 11:06 Smudge Cells Not Reportable 01/22/21 11:06 Toxic Granulation Not Reportable 01/22/21 11:06 Toxic Vacuolation Not Reportable 01/22/21 11:06 Dohle Bodies Not Reportable 01/22/21 11:06 Pelger-Huet Anomaly Not Reportable 01/22/21 11:06 Rd Rods Not Reportable 01/22/21 11:06 Platelet Estimate Consistent w auto 01/22/21 11:06 Clumped Platelets Not Reportable 01/22/21 11:06 Plt Clumps, EDTA Not Reportable 01/22/21 11:06 Large Platelets Not Reportable 01/22/21 11:06 Giant Platelets Not Reportable 01/22/21 11:06 Platelet Satelliting Not Reportable 01/22/21 11:06 Plt Morphology Comment Not Reportable 01/22/21 11:06 RBC Morphology Normal 01/22/21 11:06 Dimorphic RBCs Not Reportable 01/22/21 11:06 Polychromasia Not Reportable 01/22/21 11:06 Hypochromasia Not Reportable 01/22/21 11:06 Poikilocytosis Not Reportable 01/22/21 11:06 Anisocytosis Not Reportable 01/22/21 11:06 Microcytosis Not Reportable 01/22/21 11:06 Macrocytosis Not Reportable 01/22/21 11:06 Spherocytes Not Reportable 01/22/21 11:06 Pappenheimer Bodies Not Reportable 01/22/21 11:06 Sickle Cells Not Reportable 01/22/21 11:06 Target Cells Not Reportable 01/22/21 11:06 Tear Drop Cells Not Reportable 01/22/21 11:06 Ovalocytes Not Reportable 01/22/21 11:06 Helmet Cells Not Reportable 01/22/21 11:06 [place] Bodies Not Reportable 01/22/21 11:06 [place] Rings Not Reportable 01/22/21 11:06 [place] Cells Not Reportable 01/22/21 11:06 Bite Cells Not Reportable 01/22/21 11:06 Crenated Cell Not Reportable 01/22/21 11:06 Elliptocytes Not Reportable 01/22/21 11:06 Acanthocytes (Spur) Not Reportable 01/22/21 11:06 Rouleaux Not Reportable 01/22/21 11:06 Hemoglobin C Crystals Not Reportable 01/22/21 11:06 Schistocytes Not Reportable 01/22/21 11:06 Malaria parasites Not Reportable 01/22/21 11:06 Lloyd Bodies Not Reportable 01/22/21 11:06 Hem Pathologist Commnt No 01/22/21 11:06 PT 17.3 Sec. (12.2-14.9) H 01/28/21 10:03 INR 1.36 (0.87-1.13) H 01/28/21 10:03 APTT 29.2 Sec. (24.2-36.6) 01/28/21 10:03 D-Dimer > 66495 ng/mlDDU (0-234) H 01/25/21 06:22 Heparin Anti-Xa Level 0.32 U.I./ml (0.3-0.7) 01/30/21 21:01 ABG pH 7.288 (7.320-7.450) L 01/30/21 04:05 POC ABG pCO2 49.7 mmHg (32.0-48.0) H 01/30/21 04:05 ABG pCO2 46.6 mm Hg 01/26/21 08:30 POC ABG pO2 169.7 mmHg (83-108) H 01/30/21 04:05 ABG pO2 124.5 mm Hg (80.0-90.0) H 01/26/21 08:30 POC ABG HCO3 23.3 01/30/21 04:05 ABG HCO3 21.7 mmol/L (20.0-26.0) 01/26/21 08:30 ABG O2 Saturation 99.3 (0-100) 01/30/21 04:05 ABG O2 Content 19.4 (0.0-44) 01/26/21 08:30 POC ABG Base Excess -3.6 01/30/21 04:05 ABG Base Excess -5.0 mmol/L (-2.0-3.0) L 01/26/21 08:30 ABG Hemoglobin 12.5 (12.0-17.5) 01/30/21 04:05 ABG Oxyhemoglobin 98.4 (94-98) H 01/30/21 04:05 ABG Carboxyhemoglobin 1.2 % (0.0-5.0) 01/26/21 08:30 ABG Methemoglobin 0.3 (0.0-1.5) 01/30/21 04:05 ABG Sodium 132.5 mmol/L (136.0-145.0) L 01/30/21 04:05 ABG Potassium 4.8 mmol/L (3.40-4.50) H 01/30/21 04:05 ABG Chloride 99.0 mmol/L (98-107) 01/30/21 04:05 ABG Glucose 196 mg/dL (65-95) H 01/30/21 04:05 Oxyhemoglobin 96.2 % (95.0-99.0) 01/26/21 08:30 Carboxyhemoglobin 0.6 (0.5-1.5) 01/30/21 04:05 FiO2 100 % 01/26/21 08:30 FiO2 % 100.0 01/30/21 04:05 Sodium 138 mmol/L (137-145) 01/31/21 03:30 Potassium 5.3 mmol/L (3.6-5.0) H 01/31/21 03:30 Chloride 98.1 mmol/L (98-107) 01/31/21 03:30 Carbon Dioxide 22 mmol/L (22-30) 01/31/21 03:30 Anion Gap 23 mmol/L 01/31/21 03:30 BUN 111 mg/dL (9-20) H 01/31/21 03:30 Creatinine 6.8 mg/dL (0.8-1.3) H 01/31/21 03:30 Estimated GFR 9 ml/min 01/31/21 03:30 BUN/Creatinine Ratio 16 % 01/31/21 03:30 Glucose 143 mg/dL (75-100) H 01/31/21 03:30 POC Glucose 133 mg/dL (70-105) H 01/31/21 04:54 Hemoglobin A1c 6.2 % (4-6) H 01/22/21 11:06 Lactic Acid 4.20 mmol/L (0.7-2.0) H* 01/22/21 11:06 Calcium 7.3 mg/dL (8.4-10.2) L 01/31/21 03:30 Phosphorus 8.60 mg/dL (2.5-4.5) H 01/30/21 05:00 Magnesium 2.40 mg/dL (1.7-2.3) H 01/30/21 05:00 Ferritin 1921.0 ng/mL (30.0-300.0) H 01/26/21 07:39 Total Bilirubin 1.60 mg/dL (0.1-1.2) H 01/31/21 03:30 Total Bilirubin 1.70 mg/dL (0.1-1.2) H 01/31/21 03:30 Direct Bilirubin 1.6 mg/dL (0-0.2) H 01/31/21 03:30 Indirect Bilirubin 0.0 mg/dL 01/31/21 03:30 AST 57 units/L (5-40) H 01/31/21 03:30 AST 57 units/L (5-40) H 01/31/21 03:30 ALT 50 units/L (7-56) 01/31/21 03:30 ALT 50 units/L (7-56) 01/31/21 03:30 Alkaline Phosphatase 92 units/L (35-129) 01/31/21 03:30 Alkaline Phosphatase 95 units/L (35-129) 01/31/21 03:30 Lactate Dehydrogenase 1559 units/L (91-180) H 01/26/21 07:32 Total Creatine Kinase 258 units/L (55-170) H 01/27/21 05:00 C-Reactive Protein 20.90 mg/dL (0.00-1.30) H 01/26/21 07:32 Total Protein 5.5 g/dL (6.3-8.2) L 01/31/21 03:30 Total Protein 5.5 g/dL (6.3-8.2) L D 01/31/21 03:30 Albumin 2.5 g/dL (3.9-5) L 01/31/21 03:30 Albumin 2.5 g/dL (3.9-5) L 01/31/21 03:30 Albumin/Globulin Ratio 0.8 % 01/31/21 03:30 Albumin/Globulin Ratio 0.8 % 01/31/21 03:30 Triglycerides 369 mg/dL (2-149) H 01/28/21 04:00 Procalcitonin 2.11 ng/mL (<0.15) 01/25/21 06:22 TSH 0.013 mlU/mL (0.270-4.200) L 01/28/21 10:03 Thyroxine (T4) 3.3 ug/dL (4.0-12.0) L 01/30/21 15:35 Arterial Blood Glucose 196 mg/dL (65-95) H 01/30/21 04:05 Arterial Blood Ionized Calcium 4.0 mg/dL (4.6-5.3) L 01/30/21 04:05 Coronavirus (PCR) Positive (Negative) A 01/23/21 09:00 Hepatitis A IgM Ab Non-reactive (NonReactive) 01/27/21 11:41 Hep Bs Antigen Nonreactive (Negative) 01/27/21 11:41 Hep B Core IgM Ab Non-reactive (NonReactive) 01/27/21 11:41 Hepatitis C Antibody Non-reactive (NonReactive) 01/27/21 11:41 Microbiology: Microbiology 01/25/21 Unknown Sputum - Endotracheal Wash Sputum Culture - Preliminary Ramirez/IV: Voiding Method Incontinent Active Medications - Current Medications Current Medications: Generic Name Dose Route Start Last Admin Trade Name Freq PRN Reason Stop Dose Admin Acetaminophen 650 mg 01/22/21 23:03 Acetaminophen 325 Mg Tab PO Q4H PRN Pain MILD(1-3)/Fever >100.5/ANDERSEN Albumin Human 25 gm 01/27/21 09:35 Albumin Human 25% (25 Gm/100 Ml) Inj IV MELECIO PRN Hypotension Amiodarone HCl 200 mg 01/30/21 10:00 01/30/21 10:00 Amiodarone 200 Mg Tab PO 200 mg DAILY JACK Administration Lipase/Protease/Amylase 1 each 01/27/21 11:37 Lipase 10,500/Protease 25,000/Amylase 43,750 (Units) Dr Cap FEEDTUBE PRN PRN For Clogged Feeding Tube Dexamethasone 10 mg 01/24/21 22:00 01/30/21 21:29 Dexamethasone 4 Mg/Ml Vial IV 01/31/21 22:01 10 mg Q24HR@2200 JACK Administration Dextrose 50 ml 01/29/21 12:24 Dextrose 50% In Water (25gm) 50 Ml Syringe IV Q30MIN PRN Hypoglycemia Protocol Famotidine 20 mg 01/27/21 10:00 01/30/21 09:59 Famotidine 20 Mg/2 Ml Inj IV 20 mg DAILY JACK Administration Fentanyl 50 mcg 01/25/21 11:32 01/28/21 06:10 Fentanyl 100 Mcg/2 Ml Inj IV 50 mcg Q10MIN PRN Administration ANALGESIA Heparin Sodium (Porcine) 5,000 unit 01/28/21 09:27 Heparin 10,000 Units/10 Ml Vial IV Q6H PRN Anti-Xa Assay < 0.1 units/ml Hydrophilic Ointment 1 applic 01/25/21 13:27 Lip Therapy Vaseline TP Q2HR PRN Dry Lips Fentanyl Citrate 2,000 mcg in 100 mls @ 6.357 mls/hr 01/25/21 12:00 01/30/21 05:21 Fentanyl Drip Premix IV 0 mcg/kg/hr TITR JACK 0 mls/hr Titration Protocol 1 MCG/KG/HR Propofol 1,000 mg in 100 mls @ 3.814 mls/hr 01/25/21 14:00 01/30/21 05:19 Diprivan 10 Mg/Ml IV 0 mcg/kg/min TITR JACK 0 mls/hr Titration Protocol 5 MCG/KG/MIN Norepinephrine 4 mg in 250 mls @ 7.5 mls/hr 01/25/21 17:04 01/30/21 20:31 Levophed Drip 4 Mg/Ns 250 Ml IV 3 mcg/min TITR JACK 11.25 mls/hr Administration Protocol 2 MCG/MIN Midazolam HCl 100 mg/ Sodium 100 mls @ 1 mls/hr 01/26/21 11:00 01/30/21 05:24 Chloride IV 0 mg/hr TITR JACK 0 mls/hr Titration Protocol 1 MG/HR Sodium Chloride 100 mls @ 999 mls/hr 01/27/21 09:35 Nacl 0.9% IV MELECIO PRN Hypotension Vasopressin 20 unit/ Sodium 101 mls @ 9.09 mls/hr 01/28/21 07:00 01/30/21 08:55 Chloride IV Infused TITR JACK Titration Protocol 0.03 UNITS/MIN Heparin Sodium/Sodium Chloride 25,000 unit in 500 mls @ 30 mls/hr 01/28/21 11:00 01/31/21 03:03 Heparin/ 0.45% Nacl-25,000 Unit/500 Ml IV 1,050 units/hr TITR JACK 21 mls/hr Administration Protocol 1,500 UNITS/HR Insulin Human Regular 0 units 01/29/21 13:00 01/30/21 18:30 Insulin Regular, Human 100 Units/1 Ml SUB-Q Not Given Q6HR [facility] Protocol Metoclopramide HCl 5 mg 01/30/21 12:00 01/30/21 18:36 Metoclopramide 10 Mg/2 Ml Inj IV 5 mg Q6HR JACK Administration Midazolam HCl 2 mg 01/25/21 16:13 Midazolam 2 Mg/2 Ml Inj IV Q10MIN PRN Sedation Multi-Ingred Cream/Lotion/Oil/Oint 1 applic 01/25/21 13:27 Mineral Oil/Petrolatum, White Ophth Oint 3.5 Gm OU Q4HR PRN Dry Eye(s) Ondansetron HCl 4 mg 01/22/21 23:03 Ondansetron 4 Mg/2 Ml Inj IV Q8H PRN Nausea And Vomiting Senna/Docusate Sodium 1 tab 01/25/21 22:00 01/30/21 21:30 Sennosides/Docusate Sodium 8.6/50 Mg Tab FEEDTUBE 1 tab BID JACK Administration Simple Syrup 15 ml 01/27/21 11:37 Simple Syrup 15 Ml FEEDTUBE PRN PRN Hypoglycemia Simple Syrup 30 ml 01/27/21 11:37 Simple Syrup 15 Ml FEEDTUBE PRN PRN Hypoglycemia Sodium Bicarbonate 325 mg 01/27/21 11:37 Sodium Bicarbonate 325 Mg Tab FEEDTUBE PRN PRN For Clogged Feeding Tube Sodium Chloride 10 ml 01/22/21 23:45 01/30/21 21:30 Sodium Chloride 0.9% 10 Ml Flush Syringe IV 10 ml BID JACK Administration Sodium Chloride 10 ml 01/22/21 23:03 Sodium Chloride 0.9% 10 Ml Flush Syringe IV PRN PRN LINE FLUSH Voriconazole 300 mg 01/29/21 11:00 01/30/21 21:29 Voriconazole 200 Mg Tab PO 300 mg Q12HR JACK Administration Nutrition/Malnutrition Assess - Dietary Evaluation Nutrition/Malnutrition Findings: Nutrition Notes Start: 01/24/21 13:25 Freq: Status: Active Protocol: Document 01/29/21 11:53 MK (Rec: 01/29/21 11:56 MK [id number]) Nutrition Notes Initial or Follow up Brief Note Current Diagnosis Sepsis,Respiratory Failure, Malnutrition Other Pertinent Diagnosis covid-19, pneumonia Current Diet Nepro 1.8 at 30 ml/hr Subjective/Other Information TF was running at goal rate. It was stopped yesterday due to gastric residuals. They are >400 this AM. Pt was started on Reglan and RN will restart TF once residuals are <250ml. Nutrition Intervention Nutrition Support: Nepro at 30 ml/hr with a free water flush of 275 ml q4h. once hypernatermia resolves, resume flush of 175 ml q4h Kcal 1,296 Protein (gm) 58 Fluid (mL) 523 Follow-Up By: 01/31/21 Additional Comments F/u: TF start and tolerance
[2021-01-30] MEDS: NORepinephrine/NS 4 MG-250 ML 4 MG/250 ML BAG IV SCH (20:31)
[2021-01-30] MEDS: dexAMETHasone 4 MG/ML VIAL IV SCH (21:29)
[2021-01-31] MEDS: HEPARIN/ 0.45% NACL DRIP 25,000 UNIT/500 ML BAG IV SCH (03:03)
--- NOTE | 2021-01-31 03:46 | XRay Report ---
CHEST 1 VIEW INDICATION / CLINICAL INFORMATION: hypoxia. Dyspnea FINDINGS: SUPPORT DEVICES: No significant change in position. HEART / MEDIASTINUM: Pneumomediastinum has developed in the interim. This appears mild. LUNGS / PLEURA: Persistent bilateral airspace disease which has worsened significantly bilaterally wh en compared to 01/27/2021. Question tiny right apical pneumothorax. Extensive emphysema of the chest w all noted bilaterally. Signer Name: Óscar Deras MD Signed: 01/31/2021 3:42 AM Workstation Name: [id number]
[2021-01-31 05:41] LABS: Hematocrit 34.6 % (35.5-45.6); Hemoglobin 11.4 gm/dl (11.8-15.2); Mean Corpuscular HGB Conc 33 % (32-34); Mean Corpuscular Volume 88 fl (84-94); Platelet Count 143 K/mm3 (140-440); Red Blood Count 3.94 M/mm3 (3.65-5.03); Red Cell Distribution Width 14.7 % (13.2-15.2)
[2021-01-31 06:00] LABS: Albumin 2.5 g/dL (3.9-5); Bilirubin,Direct 1.6 mg/dL (0-0.2)
[2021-01-31 06:05] LABS: Albumin 2.5 g/dL (3.9-5); Calcium 7.3 mg/dL (8.4-10.2)
[2021-01-31] MEDS: INSULIN REGULAR, HUMAN 100 UNITS/1 ML SUB-Q SCH ×4 (08:03→19:03)
[2021-01-31] MEDS: METOCLOPRAMIDE 10 MG/2 ML INJ IV SCH ×3 (08:04→19:03)
--- NOTE | 2021-01-31 08:53 | Progress Note ---
Subjective Date of service: 01/31/21 Principal diagnosis: Ac hypoxemic resp failure; COVID-19; Pneumonia; Sepsis; Morbid obesity Interval history: Assessment: Acute kidney injury Hyperkalemia Acidosis Azotemia Acute respiratory failure, status post intubation Covid pneumonia Septic shock Recommendations HD q MWF and prn Consent was obtained from for [employer]. Possible complications on dialysis were also explained in detail. Assess daily for needs for additional hemodialysis sessions UF Tolerated with hd daily lytes, strict i/os likey ATN due to COvid infection Renally dose medications Avoid nephrotoxins lifelink referral noted, may not be fpc dialysis appropriate Subjective Principal diagnosis: Ac hypoxemic resp failure; COVID-19; Pneumonia; Sepsis; Morbid obesity Interval history: Remains intubated. Objective - Exam exam deferred for preservation of ppe, primary team exam noted Objective - Vital Signs Vital signs: Vital Signs - 12hr 01/30/21 01/30/21 01/30/21 20:56 21:00 21:15 Temperature Pulse Rate 67 70 68 Respiratory 11 L 16 Rate Blood Pressure 136/61 127/62 128/66 O2 Sat by Pulse 96 93 93 Oximetry 01/30/21 01/30/21 01/30/21 21:30 21:45 22:00 Temperature Pulse Rate 69 70 71 Respiratory 16 13 13 Rate Blood Pressure 124/54 130/66 120/59 O2 Sat by Pulse 95 94 96 Oximetry 01/30/21 01/30/21 01/30/21 22:15 22:30 22:45 Temperature Pulse Rate 70 71 69 Respiratory 15 15 18 Rate Blood Pressure 127/60 123/62 130/59 O2 Sat by Pulse 93 96 95 Oximetry 01/30/21 01/30/21 01/30/21 23:00 23:15 23:30 Temperature Pulse Rate 71 70 71 Respiratory 15 13 19 Rate Blood Pressure 128/61 130/68 134/67 O2 Sat by Pulse 96 95 95 Oximetry 01/30/21 01/30/21 01/31/21 23:34 23:45 00:00 Temperature 98.8 F Pulse Rate 71 71 71 Respiratory 21 19 19 Rate Blood Pressure 134/67 127/60 128/61 O2 Sat by Pulse 98 94 96 Oximetry 01/31/21 01/31/21 01/31/21 00:15 00:30 00:39 Temperature Pulse Rate 72 72 72 Respiratory 14 15 Rate Blood Pressure 119/62 134/66 128/61 O2 Sat by Pulse 95 95 98 Oximetry 01/31/21 01/31/21 01/31/21 00:45 01:00 01:15 Temperature Pulse Rate 73 79 72 Respiratory 13 29 H 14 Rate Blood Pressure 132/59 124/63 129/69 O2 Sat by Pulse 95 93 94 Oximetry 01/31/21 01/31/21 01/31/21 01:30 01:45 02:00 Temperature Pulse Rate 74 75 75 Respiratory 14 18 16 Rate Blood Pressure 133/60 128/65 118/57 O2 Sat by Pulse 95 94 95 Oximetry 01/31/21 01/31/21 01/31/21 02:15 02:30 02:45 Temperature Pulse Rate 75 77 76 Respiratory 14 14 15 Rate Blood Pressure 116/65 130/69 129/64 O2 Sat by Pulse 93 94 94 Oximetry 01/31/21 01/31/21 01/31/21 03:00 03:15 03:29 Temperature 99.1 F Pulse Rate 82 80 Respiratory 13 13 Rate Blood Pressure 119/53 127/61 O2 Sat by Pulse 93 92 Oximetry 01/31/21 01/31/21 01/31/21 03:30 03:45 03:56 Temperature Pulse Rate 82 81 81 Respiratory 14 13 Rate Blood Pressure 123/58 133/56 O2 Sat by Pulse 91 93 98 Oximetry 01/31/21 01/31/21 01/31/21 04:00 04:15 04:30 Temperature Pulse Rate 82 81 82 Respiratory 14 13 13 Rate Blood Pressure 108/66 112/61 116/66 O2 Sat by Pulse 93 91 97 Oximetry 01/31/21 01/31/21 01/31/21 04:45 05:00 05:15 Temperature Pulse Rate 79 79 80 Respiratory 14 16 16 Rate Blood Pressure 117/68 111/65 128/67 O2 Sat by Pulse 94 99 91 Oximetry 01/31/21 01/31/21 01/31/21 05:23 05:30 05:45 Temperature Pulse Rate 80 77 76 Respiratory 14 14 Rate Blood Pressure 112/61 119/62 121/70 O2 Sat by Pulse 97 94 90 Oximetry 01/31/21 01/31/21 01/31/21 06:00 06:15 06:30 Temperature Pulse Rate 77 78 78 Respiratory 15 13 13 Rate Blood Pressure 131/68 134/55 126/63 O2 Sat by Pulse 92 91 94 Oximetry 01/31/21 01/31/21 01/31/21 06:45 07:00 07:15 Temperature Pulse Rate 76 76 75 Respiratory 15 15 13 Rate Blood Pressure 131/66 117/70 133/67 O2 Sat by Pulse 93 91 93 Oximetry 01/31/21 01/31/21 01/31/21 07:30 08:00 08:10 Temperature 96.7 F L Pulse Rate 76 79 Respiratory 15 Rate Blood Pressure 122/58 135/60 O2 Sat by Pulse 94 97 Oximetry - Lab 01/31/21 03:30 01/31/21 03:30 Most recent lab results ABG pH 7.288 (7.320-7.450) L 01/30/21 04:05 ABG pCO2 46.6 mm Hg 01/26/21 08:30 ABG pO2 124.5 mm Hg (80.0-90.0) H 01/26/21 08:30 ABG HCO3 21.7 mmol/L (20.0-26.0) 01/26/21 08:30 ABG O2 Saturation 99.3 (0-100) 01/30/21 04:05 Calcium 7.3 mg/dL (8.4-10.2) L 01/31/21 03:30 Phosphorus 8.60 mg/dL (2.5-4.5) H 01/30/21 05:00 Magnesium 2.40 mg/dL (1.7-2.3) H 01/30/21 05:00 Medications & Allergies - Medications Allergies/Adverse Reactions: Allergies No Known Allergies Allergy (Verified 01/27/21 15:55) Per Peg López Home Medications: Home Medications Medication Instructions Recorded Confirmed Last Taken Type No Known Home Medications [No 01/27/21 01/27/21 Unknown History Reported Home Medications] Active Medications: Generic Name Dose Route Start Last Admin Trade Name Freq PRN Reason Stop Dose Admin Acetaminophen 650 mg 01/22/21 23:03 Acetaminophen 325 Mg Tab PO Q4H PRN Pain MILD(1-3)/Fever >100.5/ANDERSEN Albumin Human 25 gm 01/27/21 09:35 Albumin Human 25% (25 Gm/100 Ml) Inj IV MELECIO PRN Hypotension Amiodarone HCl 200 mg 01/30/21 10:00 01/30/21 10:00 Amiodarone 200 Mg Tab PO 200 mg DAILY JACK Administration Lipase/Protease/Amylase 1 each 01/27/21 11:37 Lipase 10,500/Protease 25,000/Amylase 43,750 (Units) Dr Cap FEEDTUBE PRN PRN For Clogged Feeding Tube Dexamethasone 10 mg 01/24/21 22:00 01/30/21 21:29 Dexamethasone 4 Mg/Ml Vial IV 01/31/21 22:01 10 mg Q24HR@2200 JACK Administration Dextrose 50 ml 01/29/21 12:24 Dextrose 50% In Water (25gm) 50 Ml Syringe IV Q30MIN PRN Hypoglycemia Protocol Famotidine 20 mg 01/27/21 10:00 01/30/21 09:59 Famotidine 20 Mg/2 Ml Inj IV 20 mg DAILY JACK Administration Fentanyl 50 mcg 01/25/21 11:32 01/28/21 06:10 Fentanyl 100 Mcg/2 Ml Inj IV 50 mcg Q10MIN PRN Administration ANALGESIA Heparin Sodium (Porcine) 5,000 unit 01/28/21 09:27 Heparin 10,000 Units/10 Ml Vial IV Q6H PRN Anti-Xa Assay < 0.1 units/ml Hydrophilic Ointment 1 applic 01/25/21 13:27 Lip Therapy Vaseline TP Q2HR PRN Dry Lips Fentanyl Citrate 2,000 mcg in 100 mls @ 6.357 mls/hr 01/25/21 12:00 01/30/21 05:21 Fentanyl Drip Premix IV 0 mcg/kg/hr TITR JACK 0 mls/hr Titration Protocol 1 MCG/KG/HR Propofol 1,000 mg in 100 mls @ 3.814 mls/hr 01/25/21 14:00 01/30/21 05:19 Diprivan 10 Mg/Ml IV 0 mcg/kg/min TITR JACK 0 mls/hr Titration Protocol 5 MCG/KG/MIN Norepinephrine 4 mg in 250 mls @ 7.5 mls/hr 01/25/21 17:04 01/30/21 21:01 Levophed Drip 4 Mg/Ns 250 Ml IV 4 mcg/min TITR JACK 15 mls/hr Titration Protocol 2 MCG/MIN Midazolam HCl 100 mg/ Sodium 100 mls @ 1 mls/hr 01/26/21 11:00 01/30/21 05:24 Chloride IV 0 mg/hr TITR JACK 0 mls/hr Titration Protocol 1 MG/HR Sodium Chloride 100 mls @ 999 mls/hr 01/27/21 09:35 Nacl 0.9% IV MELECIO PRN Hypotension Vasopressin 20 unit/ Sodium 101 mls @ 9.09 mls/hr 01/28/21 07:00 01/30/21 08:55 Chloride IV Infused TITR JACK Titration Protocol 0.03 UNITS/MIN Heparin Sodium/Sodium Chloride 25,000 unit in 500 mls @ 30 mls/hr 01/28/21 11:00 01/31/21 03:03 Heparin/ 0.45% Nacl-25,000 Unit/500 Ml IV 1,050 units/hr TITR JACK 21 mls/hr Administration Protocol 1,500 UNITS/HR Insulin Human Regular 0 units 01/29/21 13:00 01/31/21 08:04 Insulin Regular, Human 100 Units/1 Ml SUB-Q Not Given Q6HR [facility] Protocol Metoclopramide HCl 5 mg 01/30/21 12:00 01/31/21 08:04 Metoclopramide 10 Mg/2 Ml Inj IV Not Given Q6HR [facility] Midazolam HCl 2 mg 01/25/21 16:13 Midazolam 2 Mg/2 Ml Inj IV Q10MIN PRN Sedation Multi-Ingred Cream/Lotion/Oil/Oint 1 applic 01/25/21 13:27 Mineral Oil/Petrolatum, White Ophth Oint 3.5 Gm OU Q4HR PRN Dry Eye(s) Ondansetron HCl 4 mg 01/22/21 23:03 Ondansetron 4 Mg/2 Ml Inj IV Q8H PRN Nausea And Vomiting Senna/Docusate Sodium 1 tab 01/25/21 22:00 01/30/21 21:30 Sennosides/Docusate Sodium 8.6/50 Mg Tab FEEDTUBE 1 tab BID JACK Administration Simple Syrup 15 ml 01/27/21 11:37 Simple Syrup 15 Ml FEEDTUBE PRN PRN Hypoglycemia Simple Syrup 30 ml 01/27/21 11:37 Simple Syrup 15 Ml FEEDTUBE PRN PRN Hypoglycemia Sodium Bicarbonate 325 mg 01/27/21 11:37 Sodium Bicarbonate 325 Mg Tab FEEDTUBE PRN PRN For Clogged Feeding Tube Sodium Chloride 10 ml 01/22/21 23:45 01/30/21 21:30 Sodium Chloride 0.9% 10 Ml Flush Syringe IV 10 ml BID JACK Administration Sodium Chloride 10 ml 01/22/21 23:03 Sodium Chloride 0.9% 10 Ml Flush Syringe IV PRN PRN LINE FLUSH Voriconazole 300 mg 01/29/21 11:00 01/30/21 21:29 Voriconazole 200 Mg Tab PO 300 mg Q12HR JACK Administration
[2021-01-31] MEDS: FAMOTIDINE 20 MG/2 ML INJ IV SCH (09:06)
[2021-01-31] MEDS: SENNOSIDES/DOCUSATE SODIUM 8.6/50 MG TAB FEEDTUBE SCH (09:06)
[2021-01-31] MEDS: VORICONAZOLE 200 MG TAB PO SCH (09:06)
[2021-01-31] MEDS: AMIODARONE 200 MG TAB PO SCH (09:06)
--- NOTE | 2021-01-31 11:50 | Progress Note ---
Assessment and Plan Acute hypoxemic respiratory failure COVID-19 infection Multifocal pneumonia Hypernatremia Sepsis Morbid obesity with BMI of 40.0-44.9, adult - peep reduced to 16 cm and teresita wean down further for O2 sat's> 92% re: PTX (P- plateau 31 cm H2O now) - KUB non-specific; will give 300 mls magnesium citrate X 1 and increase Reglan to 10 mg IV q8h - continue to hold sedation (with renal failure prior sedative's may linger a while) - HD/UF today per nephrology prescription for toxin and volume clearance - transitioned to oral Amiodarone - wean Vasopressors for target MAP > 65 mmHg - continue care as below otherwise; - Daily SAT and SBT assessment as tolerated - continue to wean supplemental oxygen for target O2 sat's > 92% acutely - VAP bundle addressed - continue lung protective strategies - continue bronchodilators with pulmonary hygiene per RT - wean per pulmonary driven protocols otherwise - avoid nephrotoxins, renally dose all medications - continue to avoid benzodiazepine's, reduce the possibility of delirium - complete AB's per ID rec's - prn analgesia per CPOT score - Maintenance of sleep-wake cycle, avoid delirium - enteral nutritional support at goal rate as tolerated - G.I. & VTE prophylaxis - PT/OT/ROM exercises - continue mobility protocols for pressure ulcer prophylaxis - Monitor hemodynamics closely - continue other care per attending / other consultants - discharge planning ongoing concurrently COVID SPECIFIC INTERVENTIONS - Remdesivir as per ID/Pulmonary developed protocols (receiving) - continue systemic steroids for severe COVID-19 infection (Dexamethasone) - follow repeat COVID tests results - zinc and vitamin C supplementation - Monitor inflammatory markers per facility protocol - ferritin, Ddimer, CRP - therapeutic anticoagulation per system Protocol based on d-dimer and clinical considerations (VTE prophylaxis doses now) - Continue contact and airborne isolation .... Re-evaluate in am & prn CONDITION: CRITICAL PROGNOSIS: GUARDED CODE STATUS: FULL CODE The high probability of a clinically significant, sudden or life-threatening deterioration of the [respiratory, cardiovascular & neurologic] system(s) required my full and direct attention, intervention and personal management. The aggregate critical care time was [33] minutes without overlap. Time includes spent on; [x] Data Review and interpretation [x] Patient assessment and monitoring of vital signs [x] Documentation [x] Medication orders and management Subjective Date of service: 01/31/21 Principal diagnosis: Ac hypoxemic resp failure; COVID-19; Pneumonia; Sepsis; Morbid obesity Interval history: Patient is seen today for: Acute hypoxemic respiratory failure; COVID- 19infection; Multifocal pneumonia; Hypernatremia; Sepsis; Morbid obesity Seen and examined at bedside; 24hour events reviewed; nursing and respiratory care staff consulted; no adverse overnight events reported to me; resting in bed; remains on MVS; now with SQ emphysema; FiO2 at 80% but room to wean with 98% O2 sats; for HD/UF today Objective Vital Signs - 12hr 01/31/21 01/31/21 01/31/21 00:00 00:15 00:30 Temperature 98.8 F Pulse Rate 71 72 72 Respiratory 19 14 15 Rate Blood Pressure 128/61 119/62 134/66 O2 Sat by Pulse 96 95 95 Oximetry 01/31/21 01/31/21 01/31/21 00:39 00:45 01:00 Temperature Pulse Rate 72 73 79 Respiratory 13 29 H Rate Blood Pressure 128/61 132/59 124/63 O2 Sat by Pulse 98 95 93 Oximetry 01/31/21 01/31/21 01/31/21 01:15 01:30 01:45 Temperature Pulse Rate 72 74 75 Respiratory 14 14 18 Rate Blood Pressure 129/69 133/60 128/65 O2 Sat by Pulse 94 95 94 Oximetry 01/31/21 01/31/21 01/31/21 02:00 02:15 02:30 Temperature Pulse Rate 75 75 77 Respiratory 16 14 14 Rate Blood Pressure 118/57 116/65 130/69 O2 Sat by Pulse 95 93 94 Oximetry 01/31/21 01/31/21 01/31/21 02:45 03:00 03:15 Temperature Pulse Rate 76 82 80 Respiratory 15 13 13 Rate Blood Pressure 129/64 119/53 127/61 O2 Sat by Pulse 94 93 92 Oximetry 01/31/21 01/31/21 01/31/21 03:29 03:30 03:45 Temperature 99.1 F Pulse Rate 82 81 Respiratory 14 13 Rate Blood Pressure 123/58 133/56 O2 Sat by Pulse 91 93 Oximetry 01/31/21 01/31/21 01/31/21 03:56 04:00 04:15 Temperature Pulse Rate 81 82 81 Respiratory 14 13 Rate Blood Pressure 108/66 112/61 O2 Sat by Pulse 98 93 91 Oximetry 01/31/21 01/31/21 01/31/21 04:30 04:45 05:00 Temperature Pulse Rate 82 79 79 Respiratory 13 14 16 Rate Blood Pressure 116/66 117/68 111/65 O2 Sat by Pulse 97 94 99 Oximetry 01/31/21 01/31/21 01/31/21 05:15 05:23 05:30 Temperature Pulse Rate 80 80 77 Respiratory 16 14 Rate Blood Pressure 128/67 112/61 119/62 O2 Sat by Pulse 91 97 94 Oximetry 01/31/21 01/31/21 01/31/21 05:45 06:00 06:15 Temperature Pulse Rate 76 77 78 Respiratory 14 15 13 Rate Blood Pressure 121/70 131/68 134/55 O2 Sat by Pulse 90 92 91 Oximetry 01/31/21 01/31/21 01/31/21 06:30 06:45 07:00 Temperature Pulse Rate 78 76 76 Respiratory 13 15 15 Rate Blood Pressure 126/63 131/66 117/70 O2 Sat by Pulse 94 93 91 Oximetry 01/31/21 01/31/21 01/31/21 07:15 07:30 08:00 Temperature 96.7 F L Pulse Rate 75 76 Respiratory 13 15 Rate Blood Pressure 133/67 122/58 O2 Sat by Pulse 93 94 Oximetry 01/31/21 08:10 Temperature Pulse Rate 79 Respiratory Rate Blood Pressure 135/60 O2 Sat by Pulse 97 Oximetry Constitutional: appears uncomfortable, other (middle aged obese male with mildly increased respiratory effort at rest on MVS) Eyes: non-icteric ENT: oropharynx moist, other (ETT 24 cm BRE) Neck: supple, no lymphadenopathy, no JVD, other (large circumference) Effort: mildly labored Ascultation: Bilateral: diminished breath sounds, rhonchi, other (SQ emphysema to upper chest wall) Percussion: Bilateral: not dull Cardiovascular: regular rate and rhythm Gastrointestinal: normoactive bowel sounds, soft, non-tender, non-distended (protuberant) Integumentary: normal Extremities: no cyanosis, no edema, pink and warm, pulses normal Neurologic: normal mental status, pupils equal and round, unable to assess (sedated) Psychiatric: other (unable top assess re: AMS) CBC and BMP: 01/31/21 03:30 01/31/21 03:30 ABG, PT/INR, D-dimer: ABG ABG pH 7.288 (7.320-7.450) L 01/30/21 04:05 POC ABG pCO2 49.7 mmHg (32.0-48.0) H 01/30/21 04:05 ABG pCO2 46.6 mm Hg 01/26/21 08:30 POC ABG pO2 169.7 mmHg (83-108) H 01/30/21 04:05 ABG pO2 124.5 mm Hg (80.0-90.0) H 01/26/21 08:30 POC ABG HCO3 23.3 01/30/21 04:05 ABG O2 Saturation 99.3 (0-100) 01/30/21 04:05 PT/INR, D-dimer PT 17.3 Sec. (12.2-14.9) H 01/28/21 10:03 INR 1.36 (0.87-1.13) H 01/28/21 10:03 D-Dimer > 63668 ng/mlDDU (0-234) H 01/25/21 06:22 Abnormal lab findings: Abnormal Labs 01/22/21 01/22/21 01/22/21 11:06 11:06 11:06 WBC RBC Hgb Hct Plt Count Lymph % (Auto) Lymph # (Auto) [place] # (Auto) Seg Neutrophils % Seg Neuts % (Manual) Lymphocytes % (Manual) Nucleated RBC % Seg Neutrophils # Seg Neutrophils # Man Lymphocytes # (Manual) Monocytes # (Manual) PT INR D-Dimer 2625.11 H Heparin Anti-Xa Level ABG pH POC ABG pCO2 POC ABG pO2 ABG pO2 ABG Base Excess ABG Oxyhemoglobin ABG Sodium ABG Potassium ABG Chloride ABG Glucose Carboxyhemoglobin Sodium Potassium Chloride Carbon Dioxide BUN Creatinine Glucose 130 H POC Glucose Hemoglobin A1c Lactic Acid Calcium Phosphorus Magnesium Ferritin 557.5 H Total Bilirubin Direct Bilirubin AST Alkaline Phosphatase Lactate Dehydrogenase 799 H Total Creatine Kinase C-Reactive Protein 3.30 H Total Protein Albumin Triglycerides TSH Thyroxine (T4) Arterial Blood Glucose Arterial Blood Ionized Calcium Coronavirus (PCR) 01/22/21 01/22/21 01/22/21 11:06 11:06 11:06 WBC 19.2 H RBC 5.63 H Hgb 15.8 H Hct 49.0 H Plt Count Lymph % (Auto) Lymph # (Auto) [place] # (Auto) Seg Neutrophils % Seg Neuts % (Manual) 92.0 H Lymphocytes % (Manual) 1.0 L Nucleated RBC % 1.0 H Seg Neutrophils # Seg Neutrophils # Man 17.7 H Lymphocytes # (Manual) 0.2 L Monocytes # (Manual) 1.0 H PT INR D-Dimer Heparin Anti-Xa Level ABG pH POC ABG pCO2 POC ABG pO2 ABG pO2 ABG Base Excess ABG Oxyhemoglobin ABG Sodium ABG Potassium ABG Chloride ABG Glucose Carboxyhemoglobin Sodium Potassium 3.3 L Chloride Carbon Dioxide 20 L BUN 32 H Creatinine Glucose 130 H POC Glucose Hemoglobin A1c Lactic Acid 4.20 H* Calcium Phosphorus Magnesium Ferritin Total Bilirubin Direct Bilirubin AST Alkaline Phosphatase Lactate Dehydrogenase Total Creatine Kinase C-Reactive Protein Total Protein Albumin 2.9 L Triglycerides TSH Thyroxine (T4) Arterial Blood Glucose Arterial Blood Ionized Calcium Coronavirus (PCR) 01/22/21 01/22/21 01/23/21 11:06 12:03 05:29 WBC 19.0 H RBC 5.24 H Hgb 15.3 H Hct 46.0 H Plt Count Lymph % (Auto) 4.4 L Lymph # (Auto) 0.8 L [place] # (Auto) 1.2 H Seg Neutrophils % 89.1 H Seg Neuts % (Manual) Lymphocytes % (Manual) Nucleated RBC % Seg Neutrophils # 16.9 H Seg Neutrophils # Man Lymphocytes # (Manual) Monocytes # (Manual) PT INR D-Dimer Heparin Anti-Xa Level ABG pH POC ABG pCO2 30.7 L POC ABG pO2 61.4 L ABG pO2 ABG Base Excess ABG Oxyhemoglobin 90.5 L ABG Sodium ABG Potassium ABG Chloride ABG Glucose Carboxyhemoglobin 1.7 H Sodium Potassium Chloride Carbon Dioxide BUN Creatinine Glucose POC Glucose Hemoglobin A1c 6.2 H Lactic Acid Calcium Phosphorus Magnesium Ferritin Total Bilirubin Direct Bilirubin AST Alkaline Phosphatase Lactate Dehydrogenase Total Creatine Kinase C-Reactive Protein Total Protein Albumin Triglycerides TSH Thyroxine (T4) Arterial Blood Glucose Arterial Blood Ionized Calcium Coronavirus (PCR) 01/23/21 01/23/21 01/23/21 05:29 09:00 16:55 WBC RBC Hgb Hct Plt Count Lymph % (Auto) Lymph # (Auto) [place] # (Auto) Seg Neutrophils % Seg Neuts % (Manual) Lymphocytes % (Manual) Nucleated RBC % Seg Neutrophils # Seg Neutrophils # Man Lymphocytes # (Manual) Monocytes # (Manual) PT INR D-Dimer Heparin Anti-Xa Level ABG pH POC ABG pCO2 POC ABG pO2 ABG pO2 ABG Base Excess ABG Oxyhemoglobin ABG Sodium ABG Potassium ABG Chloride ABG Glucose Carboxyhemoglobin Sodium Potassium 3.5 L Chloride Carbon Dioxide BUN 29 H 27 H Creatinine Glucose 132 H 103 H POC Glucose Hemoglobin A1c Lactic Acid Calcium Phosphorus Magnesium Ferritin Total Bilirubin Direct Bilirubin AST Alkaline Phosphatase Lactate Dehydrogenase Total Creatine Kinase C-Reactive Protein Total Protein Albumin 2.9 L 2.9 L Triglycerides TSH Thyroxine (T4) Arterial Blood Glucose Arterial Blood Ionized Calcium Coronavirus (PCR) Positive A 01/24/21 01/24/21 01/24/21 05:50 20:20 20:20 WBC RBC Hgb Hct Plt Count Lymph % (Auto) Lymph # (Auto) [place] # (Auto) Seg Neutrophils % Seg Neuts % (Manual) Lymphocytes % (Manual) Nucleated RBC % Seg Neutrophils # Seg Neutrophils # Man Lymphocytes # (Manual) Monocytes # (Manual) PT INR D-Dimer Heparin Anti-Xa Level ABG pH POC ABG pCO2 POC ABG pO2 ABG pO2 ABG Base Excess ABG Oxyhemoglobin ABG Sodium ABG Potassium ABG Chloride ABG Glucose Carboxyhemoglobin Sodium 148 H Potassium 5.3 H D Chloride 109.3 H Carbon Dioxide BUN 26 H Creatinine 0.7 L Glucose 130 H POC Glucose Hemoglobin A1c Lactic Acid Calcium Phosphorus Magnesium Ferritin 1031.0 H Total Bilirubin Direct Bilirubin AST 45 H Alkaline Phosphatase Lactate Dehydrogenase 1511 H Total Creatine Kinase C-Reactive Protein 12.00 H Total Protein Albumin 2.9 L Triglycerides TSH Thyroxine (T4) Arterial Blood Glucose Arterial Blood Ionized Calcium Coronavirus (PCR) 01/24/21 01/25/21 01/25/21 20:20 06:22 06:22 WBC RBC Hgb Hct Plt Count Lymph % (Auto) Lymph # (Auto) [place] # (Auto) Seg Neutrophils % Seg Neuts % (Manual) Lymphocytes % (Manual) Nucleated RBC % Seg Neutrophils # Seg Neutrophils # Man Lymphocytes # (Manual) Monocytes # (Manual) PT INR D-Dimer > 30392 H > 87769 H Heparin Anti-Xa Level ABG pH POC ABG pCO2 POC ABG pO2 ABG pO2 ABG Base Excess ABG Oxyhemoglobin ABG Sodium ABG Potassium ABG Chloride ABG Glucose Carboxyhemoglobin Sodium 153 H Potassium 3.4 L D Chloride 116.1 H Carbon Dioxide 21 L BUN 27 H Creatinine Glucose 133 H POC Glucose Hemoglobin A1c Lactic Acid Calcium Phosphorus Magnesium Ferritin Total Bilirubin 1.30 H Direct Bilirubin AST 50 H Alkaline Phosphatase 159 H Lactate Dehydrogenase Total Creatine Kinase C-Reactive Protein Total Protein Albumin 2.9 L Triglycerides TSH Thyroxine (T4) Arterial Blood Glucose Arterial Blood Ionized Calcium Coronavirus (PCR) 01/25/21 01/25/21 01/25/21 06:22 09:35 11:25 WBC RBC Hgb Hct Plt Count Lymph % (Auto) Lymph # (Auto) [place] # (Auto) Seg Neutrophils % Seg Neuts % (Manual) Lymphocytes % (Manual) Nucleated RBC % Seg Neutrophils # Seg Neutrophils # Man Lymphocytes # (Manual) Monocytes # (Manual) PT INR D-Dimer Heparin Anti-Xa Level ABG pH 7.453 H 7.228 L POC ABG pCO2 60.0 H POC ABG pO2 44.9 L 111.7 H ABG pO2 ABG Base Excess ABG Oxyhemoglobin 81.4 L ABG Sodium 153.1 H 150.9 H ABG Potassium 3.3 L ABG Chloride 116.0 H 117.0 H ABG Glucose 151 H 155 H Carboxyhemoglobin Sodium Potassium Chloride Carbon Dioxide BUN Creatinine Glucose POC Glucose Hemoglobin A1c Lactic Acid Calcium Phosphorus Magnesium Ferritin Total Bilirubin Direct Bilirubin AST Alkaline Phosphatase Lactate Dehydrogenase Total Creatine Kinase C-Reactive Protein 16.80 H Total Protein Albumin Triglycerides TSH Thyroxine (T4) Arterial Blood Glucose 151 H 155 H Arterial Blood Ionized Calcium Coronavirus (PCR) 01/25/21 01/26/21 01/26/21 21:00 07:32 07:39 WBC RBC Hgb Hct Plt Count Lymph % (Auto) Lymph # (Auto) [place] # (Auto) Seg Neutrophils % Seg Neuts % (Manual) Lymphocytes % (Manual) Nucleated RBC % Seg Neutrophils # Seg Neutrophils # Man Lymphocytes # (Manual) Monocytes # (Manual) PT INR D-Dimer Heparin Anti-Xa Level ABG pH POC ABG pCO2 POC ABG pO2 68.5 L ABG pO2 ABG Base Excess ABG Oxyhemoglobin 91.3 L ABG Sodium 151.9 H ABG Potassium ABG Chloride 117.0 H ABG Glucose 140 H Carboxyhemoglobin Sodium 151 H Potassium Chloride 116.7 H Carbon Dioxide 20 L BUN 59 H Creatinine 3.4 H D Glucose 121 H POC Glucose Hemoglobin A1c Lactic Acid Calcium Phosphorus Magnesium Ferritin 1921.0 H Total Bilirubin Direct Bilirubin AST 45 H Alkaline Phosphatase 137 H Lactate Dehydrogenase 1559 H Total Creatine Kinase C-Reactive Protein 20.90 H Total Protein Albumin 2.3 L Triglycerides TSH Thyroxine (T4) Arterial Blood Glucose 140 H Arterial Blood Ionized Calcium Coronavirus (PCR) 01/26/21 01/26/21 01/26/21 08:30 17:55 20:39 WBC RBC Hgb Hct Plt Count Lymph % (Auto) Lymph # (Auto) [place] # (Auto) Seg Neutrophils % Seg Neuts % (Manual) Lymphocytes % (Manual) Nucleated RBC % Seg Neutrophils # Seg Neutrophils # Man Lymphocytes # (Manual) Monocytes # (Manual) PT INR D-Dimer Heparin Anti-Xa Level ABG pH 7.287 L POC ABG pCO2 POC ABG pO2 ABG pO2 124.5 H ABG Base Excess -5.0 L ABG Oxyhemoglobin ABG Sodium ABG Potassium ABG Chloride ABG Glucose Carboxyhemoglobin Sodium 152 H Potassium 6.0 H D Chloride 117.2 H Carbon Dioxide 15 L BUN 80 H Creatinine 5.6 H D Glucose 156 H POC Glucose 141 H Hemoglobin A1c Lactic Acid Calcium 7.4 L Phosphorus Magnesium Ferritin Total Bilirubin Direct Bilirubin AST Alkaline Phosphatase Lactate Dehydrogenase Total Creatine Kinase C-Reactive Protein Total Protein Albumin Triglycerides TSH Thyroxine (T4) Arterial Blood Glucose Arterial Blood Ionized Calcium Coronavirus (PCR) 01/26/21 01/27/21 01/27/21 23:14 02:55 05:00 WBC RBC Hgb Hct Plt Count Lymph % (Auto) Lymph # (Auto) [place] # (Auto) Seg Neutrophils % Seg Neuts % (Manual) Lymphocytes % (Manual) Nucleated RBC % Seg Neutrophils # Seg Neutrophils # Man Lymphocytes # (Manual) Monocytes # (Manual) PT INR D-Dimer Heparin Anti-Xa Level ABG pH 7.215 L POC ABG pCO2 48.9 H POC ABG pO2 143.3 H ABG pO2 ABG Base Excess ABG Oxyhemoglobin ABG Sodium 150.0 H ABG Potassium 5.0 H ABG Chloride 118.0 H ABG Glucose 180 H Carboxyhemoglobin Sodium 154 H Potassium 5.3 H Chloride 117.2 H Carbon Dioxide 19 L BUN 92 H Creatinine 6.4 H Glucose 175 H POC Glucose 148 H Hemoglobin A1c Lactic Acid Calcium 7.9 L Phosphorus Magnesium Ferritin Total Bilirubin Direct Bilirubin AST Alkaline Phosphatase Lactate Dehydrogenase Total Creatine Kinase C-Reactive Protein Total Protein Albumin Triglycerides TSH Thyroxine (T4) Arterial Blood Glucose 180 H Arterial Blood Ionized Calcium 4.5 L Coronavirus (PCR) 01/27/21 01/27/21 01/27/21 05:00 05:14 11:42 WBC RBC Hgb Hct Plt Count Lymph % (Auto) Lymph # (Auto) [place] # (Auto) Seg Neutrophils % Seg Neuts % (Manual) Lymphocytes % (Manual) Nucleated RBC % Seg Neutrophils # Seg Neutrophils # Man Lymphocytes # (Manual) Monocytes # (Manual) PT INR D-Dimer Heparin Anti-Xa Level ABG pH POC ABG pCO2 POC ABG pO2 ABG pO2 ABG Base Excess ABG Oxyhemoglobin ABG Sodium ABG Potassium ABG Chloride ABG Glucose Carboxyhemoglobin Sodium Potassium Chloride Carbon Dioxide BUN Creatinine Glucose POC Glucose 159 H 171 H Hemoglobin A1c Lactic Acid Calcium Phosphorus Magnesium Ferritin Total Bilirubin Direct Bilirubin AST Alkaline Phosphatase Lactate Dehydrogenase Total Creatine Kinase 258 H C-Reactive Protein Total Protein Albumin Triglycerides TSH Thyroxine (T4) Arterial Blood Glucose Arterial Blood Ionized Calcium Coronavirus (PCR) 01/27/21 01/28/21 01/28/21 18:00 04:00 04:00 WBC RBC Hgb Hct Plt Count Lymph % (Auto) Lymph # (Auto) [place] # (Auto) Seg Neutrophils % Seg Neuts % (Manual) Lymphocytes % (Manual) Nucleated RBC % Seg Neutrophils # Seg Neutrophils # Man Lymphocytes # (Manual) Monocytes # (Manual) PT INR D-Dimer Heparin Anti-Xa Level ABG pH 7.272 L POC ABG pCO2 48.4 H POC ABG pO2 ABG pO2 ABG Base Excess ABG Oxyhemoglobin ABG Sodium ABG Potassium ABG Chloride ABG Glucose 174 H Carboxyhemoglobin Sodium Potassium Chloride Carbon Dioxide BUN Creatinine Glucose POC Glucose 185 H Hemoglobin A1c Lactic Acid Calcium Phosphorus Magnesium Ferritin Total Bilirubin Direct Bilirubin AST Alkaline Phosphatase Lactate Dehydrogenase Total Creatine Kinase C-Reactive Protein Total Protein Albumin Triglycerides 369 H TSH Thyroxine (T4) Arterial Blood Glucose 174 H Arterial Blood Ionized Calcium 4.3 L Coronavirus (PCR) 01/28/21 01/28/21 01/28/21 10:03 10:03 10:03 WBC RBC Hgb Hct Plt Count 104 L Lymph % (Auto) Lymph # (Auto) [place] # (Auto) Seg Neutrophils % Seg Neuts % (Manual) Lymphocytes % (Manual) Nucleated RBC % Seg Neutrophils # Seg Neutrophils # Man Lymphocytes # (Manual) Monocytes # (Manual) PT 17.3 H INR 1.36 H D-Dimer Heparin Anti-Xa Level ABG pH POC ABG pCO2 POC ABG pO2 ABG pO2 ABG Base Excess ABG Oxyhemoglobin ABG Sodium ABG Potassium ABG Chloride ABG Glucose Carboxyhemoglobin Sodium Potassium 5.2 H Chloride Carbon Dioxide BUN 69 H Creatinine 5.6 H Glucose 220 H POC Glucose Hemoglobin A1c Lactic Acid Calcium 7.7 L Phosphorus Magnesium Ferritin Total Bilirubin Direct Bilirubin AST Alkaline Phosphatase Lactate Dehydrogenase Total Creatine Kinase C-Reactive Protein Total Protein Albumin Triglycerides TSH Thyroxine (T4) Arterial Blood Glucose Arterial Blood Ionized Calcium Coronavirus (PCR) 01/28/21 01/28/21 01/28/21 10:03 11:34 13:40 WBC RBC Hgb Hct Plt Count Lymph % (Auto) Lymph # (Auto) [place] # (Auto) Seg Neutrophils % Seg Neuts % (Manual) Lymphocytes % (Manual) Nucleated RBC % Seg Neutrophils # Seg Neutrophils # Man Lymphocytes # (Manual) Monocytes # (Manual) PT INR D-Dimer Heparin Anti-Xa Level ABG pH POC ABG pCO2 POC ABG pO2 ABG pO2 ABG Base Excess ABG Oxyhemoglobin ABG Sodium ABG Potassium ABG Chloride ABG Glucose Carboxyhemoglobin Sodium Potassium Chloride Carbon Dioxide BUN Creatinine Glucose POC Glucose 221 H Hemoglobin A1c Lactic Acid Calcium Phosphorus Magnesium 2.50 H Ferritin Total Bilirubin Direct Bilirubin AST Alkaline Phosphatase Lactate Dehydrogenase Total Creatine Kinase C-Reactive Protein Total Protein Albumin Triglycerides TSH 0.013 L Thyroxine (T4) Arterial Blood Glucose Arterial Blood Ionized Calcium Coronavirus (PCR) 01/28/21 01/28/21 01/29/21 15:31 18:02 04:00 WBC RBC Hgb Hct Plt Count Lymph % (Auto) Lymph # (Auto) [place] # (Auto) Seg Neutrophils % Seg Neuts % (Manual) Lymphocytes % (Manual) Nucleated RBC % Seg Neutrophils # Seg Neutrophils # Man Lymphocytes # (Manual) Monocytes # (Manual) PT INR D-Dimer Heparin Anti-Xa Level 1.21 H ABG pH 7.229 L POC ABG pCO2 48.8 H POC ABG pO2 ABG pO2 ABG Base Excess ABG Oxyhemoglobin ABG Sodium 135.3 L ABG Potassium 5.2 H ABG Chloride ABG Glucose 264 H Carboxyhemoglobin Sodium Potassium Chloride Carbon Dioxide BUN Creatinine Glucose POC Glucose 215 H Hemoglobin A1c Lactic Acid Calcium Phosphorus Magnesium Ferritin Total Bilirubin Direct Bilirubin AST Alkaline Phosphatase Lactate Dehydrogenase Total Creatine Kinase C-Reactive Protein Total Protein Albumin Triglycerides TSH Thyroxine (T4) Arterial Blood Glucose 264 H Arterial Blood Ionized Calcium 4.0 L Coronavirus (PCR) 01/29/21 01/29/21 01/29/21 04:30 13:23 17:56 WBC RBC Hgb Hct Plt Count Lymph % (Auto) Lymph # (Auto) [place] # (Auto) Seg Neutrophils % Seg Neuts % (Manual) Lymphocytes % (Manual) Nucleated RBC % Seg Neutrophils # Seg Neutrophils # Man Lymphocytes # (Manual) Monocytes # (Manual) PT INR D-Dimer Heparin Anti-Xa Level 0.81 H ABG pH POC ABG pCO2 POC ABG pO2 ABG pO2 ABG Base Excess ABG Oxyhemoglobin ABG Sodium ABG Potassium ABG Chloride ABG Glucose Carboxyhemoglobin Sodium Potassium Chloride Carbon Dioxide BUN Creatinine Glucose POC Glucose 198 H 200 H Hemoglobin A1c Lactic Acid Calcium Phosphorus Magnesium Ferritin Total Bilirubin Direct Bilirubin AST Alkaline Phosphatase Lactate Dehydrogenase Total Creatine Kinase C-Reactive Protein Total Protein Albumin Triglycerides TSH Thyroxine (T4) Arterial Blood Glucose Arterial Blood Ionized Calcium Coronavirus (PCR) 01/29/21 01/29/21 01/30/21 23:12 Unknown 04:00 WBC RBC Hgb Hct Plt Count Lymph % (Auto) Lymph # (Auto) [place] # (Auto) Seg Neutrophils % Seg Neuts % (Manual) Lymphocytes % (Manual) Nucleated RBC % Seg Neutrophils # Seg Neutrophils # Man Lymphocytes # (Manual) Monocytes # (Manual) PT INR D-Dimer Heparin Anti-Xa Level 0.85 H ABG pH 7.304 L POC ABG pCO2 POC ABG pO2 112.8 H ABG pO2 ABG Base Excess ABG Oxyhemoglobin ABG Sodium ABG Potassium 5.2 H ABG Chloride ABG Glucose 160 H Carboxyhemoglobin Sodium Potassium Chloride Carbon Dioxide BUN Creatinine Glucose POC Glucose 172 H Hemoglobin A1c Lactic Acid Calcium Phosphorus Magnesium Ferritin Total Bilirubin Direct Bilirubin AST Alkaline Phosphatase Lactate Dehydrogenase Total Creatine Kinase C-Reactive Protein Total Protein Albumin Triglycerides TSH Thyroxine (T4) Arterial Blood Glucose 160 H Arterial Blood Ionized Calcium 4.1 L Coronavirus (PCR) 01/30/21 01/30/21 01/30/21 04:05 05:00 05:00 WBC 27.4 H RBC Hgb 11.6 L Hct 34.8 L Plt Count 126 L Lymph % (Auto) Lymph # (Auto) [place] # (Auto) Seg Neutrophils % Seg Neuts % (Manual) Lymphocytes % (Manual) Nucleated RBC % Seg Neutrophils # Seg Neutrophils # Man Lymphocytes # (Manual) Monocytes # (Manual) PT INR D-Dimer Heparin Anti-Xa Level ABG pH 7.288 L POC ABG pCO2 49.7 H POC ABG pO2 169.7 H ABG pO2 ABG Base Excess ABG Oxyhemoglobin 98.4 H ABG Sodium 132.5 L ABG Potassium 4.8 H ABG Chloride ABG Glucose 196 H Carboxyhemoglobin Sodium 136 L Potassium Chloride 97.4 L Carbon Dioxide BUN 75 H Creatinine 5.4 H Glucose 184 H POC Glucose Hemoglobin A1c Lactic Acid Calcium 7.4 L Phosphorus 8.60 H Magnesium 2.40 H Ferritin Total Bilirubin Direct Bilirubin AST Alkaline Phosphatase Lactate Dehydrogenase Total Creatine Kinase C-Reactive Protein Total Protein Albumin Triglycerides TSH Thyroxine (T4) Arterial Blood Glucose 196 H Arterial Blood Ionized Calcium 4.0 L Coronavirus (PCR) 01/30/21 01/30/21 01/30/21 05:32 11:23 15:35 WBC RBC Hgb Hct Plt Count Lymph % (Auto) Lymph # (Auto) [place] # (Auto) Seg Neutrophils % Seg Neuts % (Manual) Lymphocytes % (Manual) Nucleated RBC % Seg Neutrophils # Seg Neutrophils # Man Lymphocytes # (Manual) Monocytes # (Manual) PT INR D-Dimer Heparin Anti-Xa Level ABG pH POC ABG pCO2 POC ABG pO2 ABG pO2 ABG Base Excess ABG Oxyhemoglobin ABG Sodium ABG Potassium ABG Chloride ABG Glucose Carboxyhemoglobin Sodium Potassium Chloride Carbon Dioxide BUN Creatinine Glucose POC Glucose 169 H 177 H Hemoglobin A1c Lactic Acid Calcium Phosphorus Magnesium Ferritin Total Bilirubin Direct Bilirubin AST Alkaline Phosphatase Lactate Dehydrogenase Total Creatine Kinase C-Reactive Protein Total Protein Albumin Triglycerides TSH Thyroxine (T4) 3.3 L Arterial Blood Glucose Arterial Blood Ionized Calcium Coronavirus (PCR) 01/30/21 01/30/21 01/31/21 18:13 23:49 03:30 WBC RBC Hgb Hct Plt Count Lymph % (Auto) Lymph # (Auto) Hitchcock # (Auto) Seg Neutrophils % Seg Neuts % (Manual) Lymphocytes % (Manual) Nucleated RBC % Seg Neutrophils # Seg Neutrophils # Man Lymphocytes # (Manual) Monocytes # (Manual) PT INR D-Dimer Heparin Anti-Xa Level ABG pH POC ABG pCO2 POC ABG pO2 ABG pO2 ABG Base Excess ABG Oxyhemoglobin ABG Sodium ABG Potassium ABG Chloride ABG Glucose Carboxyhemoglobin Sodium Potassium 5.3 H Chloride Carbon Dioxide BUN 111 H Creatinine 6.8 H Glucose 143 H POC Glucose 123 H 143 H Hemoglobin A1c Lactic Acid Calcium 7.3 L Phosphorus Magnesium Ferritin Total Bilirubin 1.70 H Direct Bilirubin AST 57 H Alkaline Phosphatase Lactate Dehydrogenase Total Creatine Kinase C-Reactive Protein Total Protein 5.5 L D Albumin 2.5 L Triglycerides TSH Thyroxine (T4) Arterial Blood Glucose Arterial Blood Ionized Calcium Coronavirus (PCR) 01/31/21 01/31/21 01/31/21 03:30 03:30 04:54 WBC 31.3 H RBC Hgb 11.4 L Hct 34.6 L Plt Count Lymph % (Auto) Lymph # (Auto) Hitchcock # (Auto) Seg Neutrophils % Seg Neuts % (Manual) Lymphocytes % (Manual) Nucleated RBC % Seg Neutrophils # Seg Neutrophils # Man Lymphocytes # (Manual) Monocytes # (Manual) PT INR D-Dimer Heparin Anti-Xa Level ABG pH POC ABG pCO2 POC ABG pO2 ABG pO2 ABG Base Excess ABG Oxyhemoglobin ABG Sodium ABG Potassium ABG Chloride ABG Glucose Carboxyhemoglobin Sodium Potassium Chloride Carbon Dioxide BUN Creatinine Glucose POC Glucose 133 H Hemoglobin A1c Lactic Acid Calcium Phosphorus Magnesium Ferritin Total Bilirubin 1.60 H Direct Bilirubin 1.6 H AST 57 H Alkaline Phosphatase Lactate Dehydrogenase Total Creatine Kinase C-Reactive Protein Total Protein 5.5 L Albumin 2.5 L Triglycerides TSH Thyroxine (T4) Arterial Blood Glucose Arterial Blood Ionized Calcium Coronavirus (PCR) Chest x-ray: image reviewed (SQ emphysema & ? small apical right pneumothorax) Allied health notes reviewed: nursing
[2021-01-31 11:59] LABS: ANA Screen, IFA Negative (Negative); Abnormal Protein Band 1 0.5 g/dL; Albumin 2.5 g/dL (3.8-4.8); Gamma Globulin 1.6 g/dL (0.8-1.7)
--- NOTE | 2021-01-31 12:45 | Progress Note ---
Assessment and Plan Cultures: SARS CoV2 PCR: positive 01/22/2021 blood culture: No growth 01/25/2021 endotracheal aspirate culture: Mold, sent to reference laboratory for further evaluation. A/P: 55/M with obesity, admitted with: #Shock: likely secondary to severe COVID-19. #Bilateral pneumonia: Secondary to COVID-19. Very high d-dimer. DVT scan negative. #Mold in sputum: ?colonization. Awaiting ID, meanwhile, initiated PO voriconazole given steroids and Actemra. Avoid ABLC given renal failure. #Acute hypoxic respiratory failure: Failed BiPAP. Requiring mechanical ventilation. #SEDRICK: creatinine elevated, on HD per nephrology. #Morbid obesity Recs: -s/p Actemra 01/26/2021 -continue IV/PO Dexamethasone -continue PO voriconazole given steroids and Actemra. Avoid ABLC given renal failure. F/u Aspergillus galactomannan and 1,3 [id number] -prophylactic anticoagulation based on d-dimer per hospital protocol. -extremely poor prognosis Misael Dudley MD, FACP [facility] ([facility] O: [phone] F: [phone] Subjective Date of service: 01/31/21 Principal diagnosis: Ac hypoxemic resp failure; COVID-19; Pneumonia; Sepsis; Morbid obesity Interval history: Afebrile. Remains on the vent. On heparin drip, on pressors. WBC increasing Objective - Exam Narrative Exam: Physical Exam (reviewed in chart to minimize risk of transmission) Constitutional: deferred Head, Ears, Nose: deferred Eyes: deferred Neck: deferred Oral: deferred Cardiovascular: deferred Respiratory: deferred GI: deferred Musculoskeletal: deferred Skin: deferred Hem/Lymphatic: deferred Psych: deferred Neurological: deferred - Constitutional Vitals: Vital Signs Temp Pulse Resp BP Pulse Ox 98.7 F 79 15 135/60 97 01/31/21 12:00 01/31/21 08:10 01/31/21 07:30 01/31/21 08:10 01/31/21 08:10 Temperature -Last 24 Hours Temperature 98.7 F Temperature 96.7 F Temperature 99.1 F Temperature 98.8 F Temperature 97.3 F Temperature 96.6 F - Labs CBC & Chem 7: 01/31/21 03:30 01/31/21 03:30 Labs: Abnormal lab results 01/27/21 01/30/21 01/30/21 Range/Units 11:55 04:00 15:35 WBC (4.5-11.0) K/mm3 Hgb (11.8-15.2) gm/dl Hct (35.5-45.6) % ABG pH 7.304 L (7.320-7.450) POC ABG pO2 112.8 H (83-108) mmHg ABG Potassium 5.2 H (3.40-4.50) mmol/L ABG Glucose 160 H (65-95) mg/dL Potassium (3.6-5.0) mmol/L BUN (9-20) mg/dL Creatinine (0.8-1.3) mg/dL Glucose (75-100) mg/dL POC Glucose (70-105) mg/dL Calcium (8.4-10.2) mg/dL Total Bilirubin (0.1-1.2) mg/dL Direct Bilirubin (0-0.2) mg/dL AST (5-40) units/L Total Protein (6.3-8.2) g/dL Albumin 2.5 L (3.8-4.8) g/dL Jseox-4-Bhcouiqbz 0.7 H (0.2-0.3) g/dL Lyvfh-2-Ucoemakjb 1.2 H (0.5-0.9) g/dL Beta Globulins 0.7 H (0.2-0.5) g/dL Abnorm Protein Band 1 0.5 H g/dL PEP Interpretation see below H Thyroxine (T4) 3.3 L (4.0-12.0) ug/dL Arterial Blood Glucose 160 H (65-95) mg/dL Arterial Blood Ionized Calcium 4.1 L (4.6-5.3) mg/dL 01/30/21 01/30/21 01/31/21 Range/Units 18:13 23:49 03:30 WBC (4.5-11.0) K/mm3 Hgb (11.8-15.2) gm/dl Hct (35.5-45.6) % ABG pH (7.320-7.450) POC ABG pO2 (83-108) mmHg ABG Potassium (3.40-4.50) mmol/L ABG Glucose (65-95) mg/dL Potassium 5.3 H (3.6-5.0) mmol/L BUN 111 H (9-20) mg/dL Creatinine 6.8 H (0.8-1.3) mg/dL Glucose 143 H (75-100) mg/dL POC Glucose 123 H 143 H (70-105) mg/dL Calcium 7.3 L (8.4-10.2) mg/dL Total Bilirubin 1.70 H (0.1-1.2) mg/dL Direct Bilirubin (0-0.2) mg/dL AST 57 H (5-40) units/L Total Protein 5.5 L D (6.3-8.2) g/dL Albumin 2.5 L (3.8-4.8) g/dL Ouuwi-6-Frldcrnci (0.2-0.3) g/dL Jwtrq-7-Oaaaevyza (0.5-0.9) g/dL Beta Globulins (0.2-0.5) g/dL Abnorm Protein Band 1 g/dL PEP Interpretation Thyroxine (T4) (4.0-12.0) ug/dL Arterial Blood Glucose (65-95) mg/dL Arterial Blood Ionized Calcium (4.6-5.3) mg/dL 01/31/21 01/31/21 01/31/21 Range/Units 03:30 03:30 04:54 WBC 31.3 H (4.5-11.0) K/mm3 Hgb 11.4 L (11.8-15.2) gm/dl Hct 34.6 L (35.5-45.6) % ABG pH (7.320-7.450) POC ABG pO2 (83-108) mmHg ABG Potassium (3.40-4.50) mmol/L ABG Glucose (65-95) mg/dL Potassium (3.6-5.0) mmol/L BUN (9-20) mg/dL Creatinine (0.8-1.3) mg/dL Glucose (75-100) mg/dL POC Glucose 133 H (70-105) mg/dL Calcium (8.4-10.2) mg/dL Total Bilirubin 1.60 H (0.1-1.2) mg/dL Direct Bilirubin 1.6 H (0-0.2) mg/dL AST 57 H (5-40) units/L Total Protein 5.5 L (6.3-8.2) g/dL Albumin 2.5 L (3.8-4.8) g/dL Nghqx-7-Jdfzxtfsv (0.2-0.3) g/dL Mkyzr-7-Clhkdnqgd (0.5-0.9) g/dL Beta Globulins (0.2-0.5) g/dL Abnorm Protein Band 1 g/dL PEP Interpretation Thyroxine (T4) (4.0-12.0) ug/dL Arterial Blood Glucose (65-95) mg/dL Arterial Blood Ionized Calcium (4.6-5.3) mg/dL 01/31/21 Range/Units 12:00 WBC (4.5-11.0) K/mm3 Hgb (11.8-15.2) gm/dl Hct (35.5-45.6) % ABG pH (7.320-7.450) POC ABG pO2 (83-108) mmHg ABG Potassium (3.40-4.50) mmol/L ABG Glucose (65-95) mg/dL Potassium (3.6-5.0) mmol/L BUN (9-20) mg/dL Creatinine (0.8-1.3) mg/dL Glucose (75-100) mg/dL POC Glucose 152 H (70-105) mg/dL Calcium (8.4-10.2) mg/dL Total Bilirubin (0.1-1.2) mg/dL Direct Bilirubin (0-0.2) mg/dL AST (5-40) units/L Total Protein (6.3-8.2) g/dL Albumin (3.8-4.8) g/dL Vmgmi-0-Jcjtppmpf (0.2-0.3) g/dL Zqovu-8-Qubngqggi (0.5-0.9) g/dL Beta Globulins (0.2-0.5) g/dL Abnorm Protein Band 1 g/dL PEP Interpretation Thyroxine (T4) (4.0-12.0) ug/dL Arterial Blood Glucose (65-95) mg/dL Arterial Blood Ionized Calcium (4.6-5.3) mg/dL
--- NOTE | 2021-01-31 13:54 | Progress Note ---
Assessment and Plan Acute Respiratory Failure COVID-19 PNA Septic Shock * Patient intubated. ID following * Continue to wean pressors as tolerated SEDRICK (initiated on dialysis) * Nephrology following New Onset AF with RVR * Patient sinus 80s on monitor * Echo 01/29/2021- Technically difficult study, no interpretable images were seen. Unable to draw conclusions * Continue anticoagulation with IV heparin gtt for now. * PO Amio 200mg daily. Follow LFTs Will follow. Pt seen in conjunction with Dr. Cordero, who agrees with the assessment and plan of care. - Patient Problems (1) Acute respiratory failure due to COVID-19 Current Visit: Yes Status: Acute (2) Atrial fibrillation with RVR Current Visit: Yes Status: Acute (3) Hypotension Current Visit: Yes Status: Acute (4) Morbid obesity with BMI of 40.0-44.9, adult Current Visit: Yes Status: Acute (5) Multifocal pneumonia Current Visit: Yes Status: Acute (6) Sepsis Current Visit: Yes Status: Acute (7) Chronic venous insufficiency Current Visit: Yes Status: Chronic Subjective Date of service: 01/31/21 Principal diagnosis: Ac hypoxemic resp failure; COVID-19; Pneumonia; Sepsis; Morbid obesity Interval history: Patient is intubated sinus 80s on with no events Objective Last Vital Signs Temp 93.6 F L 01/31/21 13:00 Pulse 813 H 01/31/21 13:45 Resp 16 01/31/21 13:00 BP 120/63 01/31/21 13:45 Pulse Ox 97 01/31/21 13:07 - Physical Examination General: Other (intubated) HEENT: Positive: Normocephaly Neck: Positive: trachea midline. Negative: JVD/HJR Cardiac: Positive: Reg Rate and Rhythm Lungs: Positive: Ventilated Respirations Neuro: Positive: Other (intubated) Abdomen: Positive: Soft Skin: Negative: Rash Musculoskeletal: No Fluid Collection Extremities: Present: lower extr. pulses, edema, Other (chronic changes) - Labs and Meds Cardiac Enzymes 01/31/21 01/31/21 Range/Units 03:30 03:30 AST 57 H 57 H (5-40) units/L CBC 01/31/21 Range/Units 03:30 WBC 31.3 H (4.5-11.0) K/mm3 RBC 3.94 (3.65-5.03) M/mm3 Hgb 11.4 L (11.8-15.2) gm/dl Hct 34.6 L (35.5-45.6) % Plt Count 143 (140-440) K/mm3 Comprehensive Metabolic Panel 01/27/21 01/31/21 01/31/21 Range/Units 11:55 03:30 03:30 Sodium 138 (137-145) mmol/L Potassium 5.3 H (3.6-5.0) mmol/L Chloride 98.1 (98-107) mmol/L Carbon Dioxide 22 (22-30) mmol/L BUN 111 H (9-20) mg/dL Creatinine 6.8 H (0.8-1.3) mg/dL Glucose 143 H (75-100) mg/dL Calcium 7.3 L (8.4-10.2) mg/dL Direct Bilirubin 1.6 H (0-0.2) mg/dL Indirect Bilirubin 0.0 mg/dL AST 57 H 57 H (5-40) units/L ALT 50 50 (7-56) units/L Alkaline Phosphatase 95 92 (35-129) units/L Total Protein 5.5 L D 5.5 L (6.3-8.2) g/dL Albumin 2.5 L 2.5 L 2.5 L (3.8-4.8) g/dL - Imaging and Cardiology EKG: report reviewed, image reviewed Echo: report reviewed - EKG Sinus rhythms and dysrhythmias: sinus rhythm Repolarization changes or abnormalities: nonspecific abnormality, ST segment, and/or T wave - Allied health notes Allied health notes reviewed: nursing
--- NOTE | 2021-01-31 14:13 | XRay Report ---
ABDOMEN 1 VIEW(S) INDICATION / CLINICAL INFORMATION: distention. COMPARISON: 01/27/2021 FINDINGS: TUBES / LINES: Esophagogastric tube tip and side-port are in the stomach. BOWEL GAS PATTERN: Gas is noted in the transverse colon, which is normal in caliber. Otherwise there is a paucity of bowel gas. FREE AIR / EXTRALUMINAL GAS: There appears to be subcutaneous soft tissue gas within the left upper q uadrant. ADDITIONAL FINDINGS: No significant additional findings. IMPRESSION: 1. Gastric tube in satisfactory position. 2. There is a paucity of bowel gas which limits evaluation of the bowel gas pattern. Accounting for t his, no bowel obstruction is seen. 3. Subcutaneous gas is seen in the left upper quadrant tracking from the lower chest. There is overly ing subcutaneous emphysema along with supine imaging limits evaluation for pneumoperitoneum. Signer Name: Wm Queen MD Signed: 01/31/2021 2:09 PM Workstation Name: [id number]
--- NOTE | 2021-01-31 14:52 | Consultation ---
History of Present Illness Consult date: 01/31/21 Reason for consult: chest tube Chief complaint: pneumothorax - History of present illness History of present illness: 55 year old male who is COVID+ requiring ventilator support. CXR today showed possible right apical pneumothorax with bilateral significant subcutaneous emphysema. PT requiring high PEEP pressures. Surgery being consulted for possible chest tube placement. Past History Past Medical History: other (chronic venous insufficiency) Past Surgical History: No surgical history Social history: no significant social history. denies: smoking Family history: no significant family history Medications and Allergies Allergies Allergy/AdvReac Type Severity Reaction Status Date / Time No Known Allergies Allergy Verified 01/27/21 15:55 Home Medications Medication Instructions Recorded Confirmed Last Taken Type No Known Home Medications [No 01/27/21 01/27/21 Unknown History Reported Home Medications] Active Meds: Active Medications Acetaminophen (Acetaminophen 325 Mg Tab) 650 mg PO Q4H PRN PRN Reason: Pain MILD(1-3)/Fever >100.5/ANDERSEN Albumin Human (Albumin Human 25% (25 Gm/100 Ml) Inj) 25 gm IV MELECIO PRN PRN Reason: Hypotension Amiodarone HCl (Amiodarone 200 Mg Tab) 200 mg PO DAILY [facility] Last Admin: 01/31/21 09:06 Dose: 200 mg Documented by: Lipase/Protease/Amylase (Lipase 10,500/Protease 25,000/Amylase 43,750 (Units) Dr Singer) 1 each FEEDTUBE PRN PRN PRN Reason: For Clogged Feeding Tube Dexamethasone (Dexamethasone 4 Mg/Ml Vial) 10 mg IV Q24HR@2200 [facility] Stop: 01/31/21 22:01 Last Admin: 01/30/21 21:29 Dose: 10 mg Documented by: Dextrose (Dextrose 50% In Water (25gm) 50 Ml Syringe) 50 ml IV Q30MIN PRN; Protocol PRN Reason: Hypoglycemia Famotidine (Famotidine 20 Mg/2 Ml Inj) 20 mg IV DAILY [facility] Last Admin: 01/31/21 09:06 Dose: 20 mg Documented by: Fentanyl (Fentanyl 100 Mcg/2 Ml Inj) 50 mcg IV Q10MIN PRN PRN Reason: ANALGESIA Last Admin: 01/28/21 06:10 Dose: 50 mcg Documented by: Heparin Sodium (Porcine) (Heparin 10,000 Units/10 Ml Vial) 5,000 unit IV Q6H PRN PRN Reason: Anti-Xa Assay < 0.1 units/ml Hydrophilic Ointment (Lip Therapy Vaseline) 1 applic TP Q2HR PRN PRN Reason: Dry Lips Fentanyl Citrate (Fentanyl Drip Premix) 2,000 mcg in 100 mls @ 6.357 mls/hr IV TITR JACK; Protocol Last Titration: 01/30/21 05:21 Dose: 0 mcg/kg/hr, 0 mls/hr Documented by: Propofol (Diprivan 10 Mg/Ml) 1,000 mg in 100 mls @ 3.814 mls/hr IV TITR JACK; Protocol Last Titration: 01/30/21 05:19 Dose: 0 mcg/kg/min, 0 mls/hr Documented by: Norepinephrine (Levophed Drip 4 Mg/Ns 250 Ml) 4 mg in 250 mls @ 7.5 mls/hr IV TITR JACK; Protocol Last Titration: 01/31/21 09:05 Dose: 2 mcg/min, 7.5 mls/hr Documented by: Midazolam HCl 100 mg/ Sodium (Chloride) 100 mls @ 1 mls/hr IV TITR JACK; Protocol Last Titration: 01/30/21 05:24 Dose: 0 mg/hr, 0 mls/hr Documented by: Sodium Chloride (Nacl 0.9%) 100 mls @ 999 mls/hr IV MELECIO PRN PRN Reason: Hypotension Vasopressin 20 unit/ Sodium (Chloride) 101 mls @ 9.09 mls/hr IV TITR JACK; Protocol Last Titration: 01/30/21 08:55 Dose: Infused Documented by: Heparin Sodium/Sodium Chloride (Heparin/ 0.45% Nacl-25,000 Unit/500 Ml) 25,000 unit in 500 mls @ 30 mls/hr IV TITR JACK; Protocol Last Admin: 01/31/21 03:03 Dose: 1,050 units/hr, 21 mls/hr Documented by: Insulin Human Regular (Insulin Regular, Human 100 Units/1 Ml) 0 units SUB-Q Q6HR JACK; Protocol Last Admin: 01/31/21 12:52 Dose: Not Given Documented by: Metoclopramide HCl (Metoclopramide 10 Mg/2 Ml Inj) 5 mg IV Q6HR JACK Last Admin: 01/31/21 12:51 Dose: 5 mg Documented by: Midazolam HCl (Midazolam 2 Mg/2 Ml Inj) 2 mg IV Q10MIN PRN PRN Reason: Sedation Multi-Ingred Cream/Lotion/Oil/Oint (Mineral Oil/Petrolatum, White Ophth Oint 3.5 Gm) 1 applic OU Q4HR PRN PRN Reason: Dry Eye(s) Ondansetron HCl (Ondansetron 4 Mg/2 Ml Inj) 4 mg IV Q8H PRN PRN Reason: Nausea And Vomiting Senna/Docusate Sodium (Sennosides/Docusate Sodium 8.6/50 Mg Tab) 1 tab FEEDTUBE BID [facility] Last Admin: 01/31/21 09:06 Dose: 1 tab Documented by: Simple Syrup (Simple Syrup 15 Ml) 15 ml FEEDTUBE PRN PRN PRN Reason: Hypoglycemia Simple Syrup (Simple Syrup 15 Ml) 30 ml FEEDTUBE PRN PRN PRN Reason: Hypoglycemia Sodium Bicarbonate (Sodium Bicarbonate 325 Mg Tab) 325 mg FEEDTUBE PRN PRN PRN Reason: For Clogged Feeding Tube Sodium Chloride (Sodium Chloride 0.9% 10 Ml Flush Syringe) 10 ml IV BID [facility] Last Admin: 01/31/21 09:06 Dose: 10 ml Documented by: Sodium Chloride (Sodium Chloride 0.9% 10 Ml Flush Syringe) 10 ml IV PRN PRN PRN Reason: LINE FLUSH Voriconazole (Voriconazole 200 Mg Tab) 300 mg PO Q12HR [facility] Last Admin: 01/31/21 09:06 Dose: 300 mg Documented by: Review of Systems ROS unobtainable: due to endotracheal tube Exam Vital Signs Pulse Ox 90 01/22/21 11:02 - General physical appearance Positive: well developed, no distress, obese, other (On dialysis at time of examination) - Respiratory Positive: normal expansion, normal respiratory effort, other (Intubated on ventilator) - Abdomen Abdomen: Present: soft - Additional Findings palpable chest subcutaneous emphysema. Results - Labs 01/31/21 03:30 01/31/21 03:30 Abnormal lab results 01/27/21 01/30/21 01/30/21 Range/Units 11:55 04:00 15:35 WBC (4.5-11.0) K/mm3 Hgb (11.8-15.2) gm/dl Hct (35.5-45.6) % ABG pH 7.304 L (7.320-7.450) POC ABG pO2 112.8 H (83-108) mmHg ABG Potassium 5.2 H (3.40-4.50) mmol/L ABG Glucose 160 H (65-95) mg/dL Potassium (3.6-5.0) mmol/L BUN (9-20) mg/dL Creatinine (0.8-1.3) mg/dL Glucose (75-100) mg/dL POC Glucose (70-105) mg/dL Calcium (8.4-10.2) mg/dL Total Bilirubin (0.1-1.2) mg/dL Direct Bilirubin (0-0.2) mg/dL AST (5-40) units/L Total Protein (6.3-8.2) g/dL Albumin 2.5 L (3.8-4.8) g/dL Kucns-8-Zkhrpcbcr 0.7 H (0.2-0.3) g/dL Gvgkv-5-Uxakqyloi 1.2 H (0.5-0.9) g/dL Beta Globulins 0.7 H (0.2-0.5) g/dL Abnorm Protein Band 1 0.5 H g/dL PEP Interpretation see below H Thyroxine (T4) 3.3 L (4.0-12.0) ug/dL Arterial Blood Glucose 160 H (65-95) mg/dL Arterial Blood Ionized Calcium 4.1 L (4.6-5.3) mg/dL 01/30/21 01/30/21 01/31/21 Range/Units 18:13 23:49 03:30 WBC (4.5-11.0) K/mm3 Hgb (11.8-15.2) gm/dl Hct (35.5-45.6) % ABG pH (7.320-7.450) POC ABG pO2 (83-108) mmHg ABG Potassium (3.40-4.50) mmol/L ABG Glucose (65-95) mg/dL Potassium 5.3 H (3.6-5.0) mmol/L BUN 111 H (9-20) mg/dL Creatinine 6.8 H (0.8-1.3) mg/dL Glucose 143 H (75-100) mg/dL POC Glucose 123 H 143 H (70-105) mg/dL Calcium 7.3 L (8.4-10.2) mg/dL Total Bilirubin 1.70 H (0.1-1.2) mg/dL Direct Bilirubin (0-0.2) mg/dL AST 57 H (5-40) units/L Total Protein 5.5 L D (6.3-8.2) g/dL Albumin 2.5 L (3.8-4.8) g/dL Duwhv-7-Qfcmshvsg (0.2-0.3) g/dL Frbig-6-Luyktuban (0.5-0.9) g/dL Beta Globulins (0.2-0.5) g/dL Abnorm Protein Band 1 g/dL PEP Interpretation Thyroxine (T4) (4.0-12.0) ug/dL Arterial Blood Glucose (65-95) mg/dL Arterial Blood Ionized Calcium (4.6-5.3) mg/dL 01/31/21 01/31/21 01/31/21 Range/Units 03:30 03:30 04:54 WBC 31.3 H (4.5-11.0) K/mm3 Hgb 11.4 L (11.8-15.2) gm/dl Hct 34.6 L (35.5-45.6) % ABG pH (7.320-7.450) POC ABG pO2 (83-108) mmHg ABG Potassium (3.40-4.50) mmol/L ABG Glucose (65-95) mg/dL Potassium (3.6-5.0) mmol/L BUN (9-20) mg/dL Creatinine (0.8-1.3) mg/dL Glucose (75-100) mg/dL POC Glucose 133 H (70-105) mg/dL Calcium (8.4-10.2) mg/dL Total Bilirubin 1.60 H (0.1-1.2) mg/dL Direct Bilirubin 1.6 H (0-0.2) mg/dL AST 57 H (5-40) units/L Total Protein 5.5 L (6.3-8.2) g/dL Albumin 2.5 L (3.8-4.8) g/dL Qkuqt-2-Ikajblhqf (0.2-0.3) g/dL Uwcrg-8-Ekgbrpkmm (0.5-0.9) g/dL Beta Globulins (0.2-0.5) g/dL Abnorm Protein Band 1 g/dL PEP Interpretation Thyroxine (T4) (4.0-12.0) ug/dL Arterial Blood Glucose (65-95) mg/dL Arterial Blood Ionized Calcium (4.6-5.3) mg/dL 01/31/21 Range/Units 12:00 WBC (4.5-11.0) K/mm3 Hgb (11.8-15.2) gm/dl Hct (35.5-45.6) % ABG pH (7.320-7.450) POC ABG pO2 (83-108) mmHg ABG Potassium (3.40-4.50) mmol/L ABG Glucose (65-95) mg/dL Potassium (3.6-5.0) mmol/L BUN (9-20) mg/dL Creatinine (0.8-1.3) mg/dL Glucose (75-100) mg/dL POC Glucose 152 H (70-105) mg/dL Calcium (8.4-10.2) mg/dL Total Bilirubin (0.1-1.2) mg/dL Direct Bilirubin (0-0.2) mg/dL AST (5-40) units/L Total Protein (6.3-8.2) g/dL Albumin (3.8-4.8) g/dL Rgqhf-3-Icvvgxjno (0.2-0.3) g/dL Lipxx-1-Teyosrabk (0.5-0.9) g/dL Beta Globulins (0.2-0.5) g/dL Abnorm Protein Band 1 g/dL PEP Interpretation Thyroxine (T4) (4.0-12.0) ug/dL Arterial Blood Glucose (65-95) mg/dL Arterial Blood Ionized Calcium (4.6-5.3) mg/dL Diabetes panel 01/27/21 01/31/21 01/31/21 Range/Units 11:55 03:30 03:30 Sodium 138 (137-145) mmol/L Potassium 5.3 H (3.6-5.0) mmol/L Chloride 98.1 (98-107) mmol/L Carbon Dioxide 22 (22-30) mmol/L BUN 111 H (9-20) mg/dL Creatinine 6.8 H (0.8-1.3) mg/dL Glucose 143 H (75-100) mg/dL Calcium 7.3 L (8.4-10.2) mg/dL AST 57 H 57 H (5-40) units/L ALT 50 50 (7-56) units/L Alkaline Phosphatase 95 92 (35-129) units/L Total Protein 5.5 L D 5.5 L (6.3-8.2) g/dL Albumin 2.5 L 2.5 L 2.5 L (3.8-4.8) g/dL Thyroid panel 01/30/21 Range/Units 15:35 Thyroxine (T4) 3.3 L (4.0-12.0) ug/dL Calcium panel 01/27/21 01/31/21 01/31/21 Range/Units 11:55 03:30 03:30 Calcium 7.3 L (8.4-10.2) mg/dL Albumin 2.5 L 2.5 L 2.5 L (3.8-4.8) g/dL Pituitary panel 01/30/21 01/31/21 Range/Units 15:35 03:30 Sodium 138 (137-145) mmol/L Potassium 5.3 H (3.6-5.0) mmol/L Chloride 98.1 (98-107) mmol/L Carbon Dioxide 22 (22-30) mmol/L BUN 111 H (9-20) mg/dL Creatinine 6.8 H (0.8-1.3) mg/dL Glucose 143 H (75-100) mg/dL Calcium 7.3 L (8.4-10.2) mg/dL Thyroxine (T4) 3.3 L (4.0-12.0) ug/dL Adrenal panel 01/27/21 01/31/21 01/31/21 Range/Units 11:55 03:30 03:30 Sodium 138 (137-145) mmol/L Potassium 5.3 H (3.6-5.0) mmol/L Chloride 98.1 (98-107) mmol/L Carbon Dioxide 22 (22-30) mmol/L BUN 111 H (9-20) mg/dL Creatinine 6.8 H (0.8-1.3) mg/dL Glucose 143 H (75-100) mg/dL Calcium 7.3 L (8.4-10.2) mg/dL Total Bilirubin 1.70 H 1.60 H (0.1-1.2) mg/dL AST 57 H 57 H (5-40) units/L ALT 50 50 (7-56) units/L Alkaline Phosphatase 95 92 (35-129) units/L Total Protein 5.5 L D 5.5 L (6.3-8.2) g/dL Albumin 2.5 L 2.5 L 2.5 L (3.8-4.8) g/dL - Imaging Chest x-ray: report reviewed, image reviewed Assessment and Plan 55 year old COVID+ male with significant bilateral subcutaneous emphysema and possible small right pneumothorax. May benefit from bilateral chest tube placement. consent obtained from .
--- NOTE | 2021-01-31 16:10 | Progress Note ---
<CHAVEZANGIE NelsonNat - Last Filed: 01/31/21 16:06> Assessment and Plan Assessment and plan: This is a 55-year-old male with morbid obesity, former nicotine abuse and venous insufficiency who was admitted as a COVID-19 PUI with acute hypoxic respiratory failure, sepsis, multifocal pneumonia Neuro: Acute metabolic encephalopathy -RN to lighten sedation -EEG pending -Avoid delirium -Goal RASS -2 to -3 Cardio: A. fib with RVR -Cardiology consulted, appreciate recommendations -Patient transitioned from IV amiodarone to p.o. amiodarone -Echocardiogram completed ee results -Blood pressure monitor per protocol -Wean vasopressor support for MAP goal greater than 65 Respiratory: Acute hypoxic respiratory failure, apical pneumothorax -Intubated -CCM consulted, patient recommendations -AM vent settings: AC TV 500/R 30/PeeP 20/80% FiO2 -ABG and CXR reviewed -surgery consulted to possibly place Chest tube-> will evaluate -Serial ABG and CXR -VAP bundle -Continuous SPO2 monitoring GI: MO, malnutrition, high residuals -Patient had high residuals overnight and NGT was placed to suction-> RN to resume trickle feeding -Reglan every 6 -BR: Senokot -01/30 KUB reviewed : Acute kidney injury secondary to vasomotor nephropathy -Nephrology consulted, appreciate recommendations -Patient initiated on hemodialysis 01/27 -HD per nephrology -Strict intake and output -Avoid nephrotoxic medications-renally dose medications -trend BMP -Past 24 hours +326 Endo: NAD -SSI -Accu-Cheks every 6 -Avoid hypoglycemia ID: COVID-19 pneumonia, septic shock, bilateral pneumonia,? Mold in sputum -Infectious disease consulted, appreciate recommendations (signed off 01/31) -Contact/droplet isolation -Dexamethasone for 10 days -Actemra administered 01/26 -P.o. voriconazole given steroids and Actemra -Per infectious disease: Avoid ABLC given renal failure -Follow-up ID labs -Trend COVID-19 inflammatory markers -S/p ABX therapy for pneumonia -Monitor WBC and fever curve -Follow blood cultures Heme: Elevated D-dimer, leukocytosis -Anticoagulation with heparin drip -Trend CBC -Transfuse for hemoglobin less than 7 -Lower extremity Doppler ultrasound shows no evidence of DVT The high probability of a clinically significant, sudden or life threatening deterioration of the [multi] system(s) required my full and direct attention, intervention and personal management. The aggregate critical care time was [60] minutes. This time is in addition to time spent performing reported procedures but includes the following: [x] Data Review and interpretation [x] Patient assessment and monitoring of vital signs [x] Documentation [x] Medication orders and management Disposition Plan: icu Total Time Spent with Patient (Minutes): 60 History Interval history: This is a 55-year-old male with morbid obesity venous insufficiency, former smoker who presented to the emergency department on 01/22 for SOB x4 days prior to admission and patient was diagnosed with COVID-19 at OSH on 01/16 after the patient was discharged. Patient had worsening symptoms therefore he presented to [facility]. Patient had fever, chills, headache, cough, shortness of breath, body aches, loss of taste and smell. Upon arrival of EMS patient was saturating at 60% on room air and received albuterol, magnesium, Solu-Medrol. Patient remained hypoxic in spite of being on a nonrebreather and was started on a BiPAP in the emergency department. Patient was admitted to the hospitalist service with consults to ID, pulmonology and [place] ter nephrology and cardiology. Patient admitted for acute hypoxic respiratory failure, sepsis, multifocal pneumonia, PUI for COVID-19. 01/31: Patient has subq air on exam, cxr shows possible apical pneumo and surgery consulted for possible chest tube placement. HD today 01/30: This morning patient is not on sedation and does not follow commands, per RN report patient does not have cough/gag. No acute events reported overnight. EEG ordered, KUB and NGT to LIS for high residuals. 01/29: Patient is in acute respiratory failure on continuous BiPAP With low saturations intermittently Patient has severe Covid pneumonia, elevated D-dimers on empiric full dose anticoagulation Not a candidate for CTA chest as patient is unstable Patient is critically ill in severe distress Patient has low saturations even on continuous BiPAP May need intubation and mechanical ventilation Vital signs noted 01/28/2021 Patient intubated Sedated Same condition On pressors Poor prognosis 01/27/2021 Patient intubated Sedated On vent protocol 01/26/2021 Patient is intubated Patient is Covid positive 01/25/2021; patient for intubation and mechanical ventilation As patient is severely hypoxemic even on continuous BiPAP 01/24: Patient is severely hypoxemic requiring continuous BiPAP, with borderline O2 sats Pulmonary critical following, stat ABG If no improvement intubate as needed Patient is elevated D-dimers, in the setting of COVID-19 morbid obesity respiratory failure requiring continuous BiPAP We will treat empirically with full dose anticoagulation, check CTA chest and lower extremity venous Doppler to rule out PE and DVT. Patient is critically ill with poor prognosis Plan of care reviewed with the patient and his nurse 01/23: We will closely monitor the patient and adjust management as needed Follow khan PCR test, consult ID if needed Hospitalist Physical - Constitutional Vitals: Temp Pulse Resp BP Pulse Ox 93.6 F L 81 16 116/67 97 01/31/21 13:00 01/31/21 16:00 01/31/21 13:00 01/31/21 16:00 01/31/21 13:07 General appearance: Present: no acute distress, well-nourished, other (not responsive) - Respiratory Respiratory: bilateral: diminished - Cardiovascular Rhythm: regular Heart Sounds: Present: S1 & S2 - Extremities Extremities: no ischemia, pulses intact, pulses symmetrical, normal temperature, normal color Peripheral Pulses: within normal limits - Abdominal General gastrointestinal: soft, non-tender, non-distended, normal bowel sounds - Integumentary Integumentary: Present: warm, dry - Neurologic Neurologic: no moves all extremities - Allied Health Allied health notes reviewed: nursing, social work HEART Score - HEART Score Age: 45-65 Risk factors: 1-2 risk factors Troponin: < normal limit - Critical Actions Critical Actions: 0-3 pts:0.9-1.7%risk of adverse cardiac event.Candidate for discharge Results - Labs CBC & Chem 7: 01/31/21 03:30 01/31/21 03:30 Labs: Laboratory Last Values WBC 31.3 K/mm3 (4.5-11.0) H 01/31/21 03:30 RBC 3.94 M/mm3 (3.65-5.03) 01/31/21 03:30 Hgb 11.4 gm/dl (11.8-15.2) L 01/31/21 03:30 Hct 34.6 % (35.5-45.6) L 01/31/21 03:30 MCV 88 fl (84-94) 01/31/21 03:30 MCH 29 pg (28-32) 01/31/21 03:30 MCHC 33 % (32-34) 01/31/21 03:30 RDW 14.7 % (13.2-15.2) 01/31/21 03:30 Plt Count 143 K/mm3 (140-440) 01/31/21 03:30 Lymph % (Auto) 4.4 % (13.4-35.0) L 01/23/21 05:29 [place] % (Auto) 6.4 % (0.0-7.3) 01/23/21 05:29 Lymph # (Auto) 0.8 K/mm3 (1.2-5.4) L 01/23/21 05:29 [place] # (Auto) 1.2 K/mm3 (0.0-0.8) H 01/23/21 05:29 Add Manual Diff Complete 01/22/21 11:06 Total Counted 100 01/22/21 11:06 Seg Neutrophils % 89.1 % (40.0-70.0) H 01/23/21 05:29 Seg Neuts % (Manual) 92.0 % (40.0-70.0) H 01/22/21 11:06 Band Neutrophils % 2.0 % 01/22/21 11:06 Lymphocytes % (Manual) 1.0 % (13.4-35.0) L 01/22/21 11:06 Monocytes % (Manual) 5.0 % (0.0-7.3) 01/22/21 11:06 Nucleated RBC % 1.0 % (0.0-0.9) H 01/22/21 11:06 Seg Neutrophils # 16.9 K/mm3 (1.8-7.7) H 01/23/21 05:29 Seg Neutrophils # Man 17.7 K/mm3 (1.8-7.7) H 01/22/21 11:06 Band Neutrophils # 0.4 K/mm3 01/22/21 11:06 Lymphocytes # (Manual) 0.2 K/mm3 (1.2-5.4) L 01/22/21 11:06 Abs React Lymphs (Man) 0.0 K/mm3 01/22/21 11:06 Monocytes # (Manual) 1.0 K/mm3 (0.0-0.8) H 01/22/21 11:06 Eosinophils # (Manual) 0.0 K/mm3 (0.0-0.4) 01/22/21 11:06 Basophils # (Manual) 0.0 K/mm3 (0.0-0.1) 01/22/21 11:06 Metamyelocytes # 0.0 K/mm3 01/22/21 11:06 Myelocytes # 0.0 K/mm3 01/22/21 11:06 Promyelocytes # 0.0 K/mm3 01/22/21 11:06 Blast Cells # 0.0 K/mm3 01/22/21 11:06 WBC Morphology Not Reportable 01/22/21 11:06 Hypersegmented Neuts Not Reportable 01/22/21 11:06 Hyposegmented Neuts Not Reportable 01/22/21 11:06 Hypogranular Neuts Not Reportable 01/22/21 11:06 Smudge Cells Not Reportable 01/22/21 11:06 Toxic Granulation Not Reportable 01/22/21 11:06 Toxic Vacuolation Not Reportable 01/22/21 11:06 Dohle Bodies Not Reportable 01/22/21 11:06 Pelger-Huet Anomaly Not Reportable 01/22/21 11:06 Rd Rods Not Reportable 01/22/21 11:06 Platelet Estimate Consistent w auto 01/22/21 11:06 Clumped Platelets Not Reportable 01/22/21 11:06 Plt Clumps, EDTA Not Reportable 01/22/21 11:06 Large Platelets Not Reportable 01/22/21 11:06 Giant Platelets Not Reportable 01/22/21 11:06 Platelet Satelliting Not Reportable 01/22/21 11:06 Plt Morphology Comment Not Reportable 01/22/21 11:06 RBC Morphology Normal 01/22/21 11:06 Dimorphic RBCs Not Reportable 01/22/21 11:06 Polychromasia Not Reportable 01/22/21 11:06 Hypochromasia Not Reportable 01/22/21 11:06 Poikilocytosis Not Reportable 01/22/21 11:06 Anisocytosis Not Reportable 01/22/21 11:06 Microcytosis Not Reportable 01/22/21 11:06 Macrocytosis Not Reportable 01/22/21 11:06 Spherocytes Not Reportable 01/22/21 11:06 Pappenheimer Bodies Not Reportable 01/22/21 11:06 Sickle Cells Not Reportable 01/22/21 11:06 Target Cells Not Reportable 01/22/21 11:06 Tear Drop Cells Not Reportable 01/22/21 11:06 Ovalocytes Not Reportable 01/22/21 11:06 Helmet Cells Not Reportable 01/22/21 11:06 Soliman-Brusly Bodies Not Reportable 01/22/21 11:06 [place] Rings Not Reportable 01/22/21 11:06 [place] Cells Not Reportable 01/22/21 11:06 Bite Cells Not Reportable 01/22/21 11:06 Crenated Cell Not Reportable 01/22/21 11:06 Elliptocytes Not Reportable 01/22/21 11:06 Acanthocytes (Spur) Not Reportable 01/22/21 11:06 Rouleaux Not Reportable 01/22/21 11:06 Hemoglobin C Crystals Not Reportable 01/22/21 11:06 Schistocytes Not Reportable 01/22/21 11:06 Malaria parasites Not Reportable 01/22/21 11:06 Lloyd Bodies Not Reportable 01/22/21 11:06 Hem Pathologist Commnt No 01/22/21 11:06 PT 17.3 Sec. (12.2-14.9) H 01/28/21 10:03 INR 1.36 (0.87-1.13) H 01/28/21 10:03 APTT 29.2 Sec. (24.2-36.6) 01/28/21 10:03 D-Dimer > 69985 ng/mlDDU (0-234) H 01/25/21 06:22 Heparin Anti-Xa Level 0.32 U.I./ml (0.3-0.7) 01/30/21 21:01 ABG pH 7.288 (7.320-7.450) L 01/30/21 04:05 POC ABG pCO2 49.7 mmHg (32.0-48.0) H 01/30/21 04:05 ABG pCO2 46.6 mm Hg 01/26/21 08:30 POC ABG pO2 169.7 mmHg (83-108) H 01/30/21 04:05 ABG pO2 124.5 mm Hg (80.0-90.0) H 01/26/21 08:30 POC ABG HCO3 23.3 01/30/21 04:05 ABG HCO3 21.7 mmol/L (20.0-26.0) 01/26/21 08:30 ABG O2 Saturation 99.3 (0-100) 01/30/21 04:05 ABG O2 Content 19.4 (0.0-44) 01/26/21 08:30 POC ABG Base Excess -3.6 01/30/21 04:05 ABG Base Excess -5.0 mmol/L (-2.0-3.0) L 01/26/21 08:30 ABG Hemoglobin 12.5 (12.0-17.5) 01/30/21 04:05 ABG Oxyhemoglobin 98.4 (94-98) H 01/30/21 04:05 ABG Carboxyhemoglobin 1.2 % (0.0-5.0) 01/26/21 08:30 ABG Methemoglobin 0.3 (0.0-1.5) 01/30/21 04:05 ABG Sodium 132.5 mmol/L (136.0-145.0) L 01/30/21 04:05 ABG Potassium 4.8 mmol/L (3.40-4.50) H 01/30/21 04:05 ABG Chloride 99.0 mmol/L (98-107) 01/30/21 04:05 ABG Glucose 196 mg/dL (65-95) H 01/30/21 04:05 Oxyhemoglobin 96.2 % (95.0-99.0) 01/26/21 08:30 Carboxyhemoglobin 0.6 (0.5-1.5) 01/30/21 04:05 FiO2 100 % 01/26/21 08:30 FiO2 % 100.0 01/30/21 04:05 Sodium 138 mmol/L (137-145) 01/31/21 03:30 Potassium 5.3 mmol/L (3.6-5.0) H 01/31/21 03:30 Chloride 98.1 mmol/L (98-107) 01/31/21 03:30 Carbon Dioxide 22 mmol/L (22-30) 01/31/21 03:30 Anion Gap 23 mmol/L 01/31/21 03:30 BUN 111 mg/dL (9-20) H 01/31/21 03:30 Creatinine 6.8 mg/dL (0.8-1.3) H 01/31/21 03:30 Estimated GFR 9 ml/min 01/31/21 03:30 BUN/Creatinine Ratio 16 % 01/31/21 03:30 Glucose 143 mg/dL (75-100) H 01/31/21 03:30 POC Glucose 152 mg/dL (70-105) H 01/31/21 12:00 Hemoglobin A1c 6.2 % (4-6) H 01/22/21 11:06 Lactic Acid 4.20 mmol/L (0.7-2.0) H* 01/22/21 11:06 Calcium 7.3 mg/dL (8.4-10.2) L 01/31/21 03:30 Phosphorus 8.60 mg/dL (2.5-4.5) H 01/30/21 05:00 Magnesium 2.40 mg/dL (1.7-2.3) H 01/30/21 05:00 Ferritin 1921.0 ng/mL (30.0-300.0) H 01/26/21 07:39 Total Bilirubin 1.60 mg/dL (0.1-1.2) H 01/31/21 03:30 Total Bilirubin 1.70 mg/dL (0.1-1.2) H 01/31/21 03:30 Direct Bilirubin 1.6 mg/dL (0-0.2) H 01/31/21 03:30 Indirect Bilirubin 0.0 mg/dL 01/31/21 03:30 AST 57 units/L (5-40) H 01/31/21 03:30 AST 57 units/L (5-40) H 01/31/21 03:30 ALT 50 units/L (7-56) 01/31/21 03:30 ALT 50 units/L (7-56) 01/31/21 03:30 Alkaline Phosphatase 92 units/L (35-129) 01/31/21 03:30 Alkaline Phosphatase 95 units/L (35-129) 01/31/21 03:30 Lactate Dehydrogenase 1559 units/L (91-180) H 01/26/21 07:32 Total Creatine Kinase 258 units/L (55-170) H 01/27/21 05:00 C-Reactive Protein 20.90 mg/dL (0.00-1.30) H 01/26/21 07:32 Serum Total Protein 7.2 g/dL (6.1-8.1) 01/27/21 11:55 Total Protein 5.5 g/dL (6.3-8.2) L 01/31/21 03:30 Total Protein 5.5 g/dL (6.3-8.2) L D 01/31/21 03:30 Albumin 2.5 g/dL (3.9-5) L 01/31/21 03:30 Albumin 2.5 g/dL (3.9-5) L 01/31/21 03:30 Albumin/Globulin Ratio 0.8 % 01/31/21 03:30 Albumin/Globulin Ratio 0.8 % 01/31/21 03:30 Ociqe-1-Vowometdm 0.7 g/dL (0.2-0.3) H 01/27/21 11:55 Iaeob-7-Ifkiwzmid 1.2 g/dL (0.5-0.9) H 01/27/21 11:55 Beta Globulins 0.7 g/dL (0.2-0.5) H 01/27/21 11:55 Gamma Globulins 1.6 g/dL (0.8-1.7) 01/27/21 11:55 Abnorm Protein Band 1 0.5 g/dL H 01/27/21 11:55 PEP Interpretation see below H 01/27/21 11:55 Triglycerides 369 mg/dL (2-149) H 01/28/21 04:00 Procalcitonin 2.11 ng/mL (<0.15) 01/25/21 06:22 TSH 0.013 mlU/mL (0.270-4.200) L 01/28/21 10:03 Thyroxine (T4) 3.3 ug/dL (4.0-12.0) L 01/30/21 15:35 Arterial Blood Glucose 196 mg/dL (65-95) H 01/30/21 04:05 Arterial Blood Ionized Calcium 4.0 mg/dL (4.6-5.3) L 01/30/21 04:05 ANURAG Screen Negative (Negative) 01/27/21 11:55 Complement C3 105 mg/dL (82-185) 01/27/21 11:55 Complement C4 17 mg/dL (15-53) 01/27/21 11:55 Coronavirus (PCR) Positive (Negative) A 01/23/21 09:00 Hepatitis A IgM Ab Non-reactive (NonReactive) 01/27/21 11:41 Hep Bs Antigen Nonreactive (Negative) 01/27/21 11:41 Hep B Core IgM Ab Non-reactive (NonReactive) 01/27/21 11:41 Hepatitis C Antibody Non-reactive (NonReactive) 01/27/21 11:41 Microbiology: Microbiology 01/25/21 Unknown Sputum - Endotracheal Wash Sputum Culture - Preliminary Ramirez/IV: Voiding Method Incontinent Active Medications - Current Medications Current Medications: Generic Name Dose Route Start Last Admin Trade Name Freq PRN Reason Stop Dose Admin Acetaminophen 650 mg 01/22/21 23:03 Acetaminophen 325 Mg Tab PO Q4H PRN Pain MILD(1-3)/Fever >100.5/ANDERSEN Albumin Human 25 gm 01/27/21 09:35 Albumin Human 25% (25 Gm/100 Ml) Inj IV MELECIO PRN Hypotension Amiodarone HCl 200 mg 01/30/21 10:00 01/31/21 09:06 Amiodarone 200 Mg Tab PO 200 mg DAILY JACK Administration Lipase/Protease/Amylase 1 each 01/27/21 11:37 Lipase 10,500/Protease 25,000/Amylase 43,750 (Units) Dr Singer FEEDTUBE PRN PRN For Clogged Feeding Tube Dexamethasone 10 mg 01/24/21 22:00 01/30/21 21:29 Dexamethasone 4 Mg/Ml Vial IV 01/31/21 22:01 10 mg Q24HR@2200 JACK Administration Dextrose 50 ml 01/29/21 12:24 Dextrose 50% In Water (25gm) 50 Ml Syringe IV Q30MIN PRN Hypoglycemia Protocol Famotidine 20 mg 01/27/21 10:00 01/31/21 09:06 Famotidine 20 Mg/2 Ml Inj IV 20 mg DAILY JACK Administration Fentanyl 50 mcg 01/25/21 11:32 01/28/21 06:10 Fentanyl 100 Mcg/2 Ml Inj IV 50 mcg Q10MIN PRN Administration ANALGESIA Heparin Sodium (Porcine) 5,000 unit 01/28/21 09:27 Heparin 10,000 Units/10 Ml Vial IV Q6H PRN Anti-Xa Assay < 0.1 units/ml Hydrophilic Ointment 1 applic 01/25/21 13:27 Lip Therapy Vaseline TP Q2HR PRN Dry Lips Fentanyl Citrate 2,000 mcg in 100 mls @ 6.357 mls/hr 01/25/21 12:00 01/30/21 05:21 Fentanyl Drip Premix IV 0 mcg/kg/hr TITR JACK 0 mls/hr Titration Protocol 1 MCG/KG/HR Propofol 1,000 mg in 100 mls @ 3.814 mls/hr 01/25/21 14:00 01/30/21 05:19 Diprivan 10 Mg/Ml IV 0 mcg/kg/min TITR JACK 0 mls/hr Titration Protocol 5 MCG/KG/MIN Norepinephrine 4 mg in 250 mls @ 7.5 mls/hr 01/25/21 17:04 01/31/21 09:05 Levophed Drip 4 Mg/Ns 250 Ml IV 2 mcg/min TITR JACK 7.5 mls/hr Titration Protocol 2 MCG/MIN Midazolam HCl 100 mg/ Sodium 100 mls @ 1 mls/hr 01/26/21 11:00 01/30/21 05:24 Chloride IV 0 mg/hr TITR JACK 0 mls/hr Titration Protocol 1 MG/HR Sodium Chloride 100 mls @ 999 mls/hr 01/27/21 09:35 Nacl 0.9% IV MELECIO PRN Hypotension Vasopressin 20 unit/ Sodium 101 mls @ 9.09 mls/hr 01/28/21 07:00 01/30/21 08:55 Chloride IV Infused TITR JACK Titration Protocol 0.03 UNITS/MIN Heparin Sodium/Sodium Chloride 25,000 unit in 500 mls @ 30 mls/hr 01/28/21 11:00 01/31/21 14:52 Heparin/ 0.45% Nacl-25,000 Unit/500 Ml IV 0 units/hr TITR JACK 0 mls/hr Titration Protocol 1,500 UNITS/HR Insulin Human Regular 0 units 01/29/21 13:00 01/31/21 12:52 Insulin Regular, Human 100 Units/1 Ml SUB-Q Not Given Q6HR JACK Protocol Metoclopramide HCl 5 mg 01/30/21 12:00 01/31/21 12:51 Metoclopramide 10 Mg/2 Ml Inj IV 5 mg Q6HR JACK Administration Midazolam HCl 2 mg 01/25/21 16:13 Midazolam 2 Mg/2 Ml Inj IV Q10MIN PRN Sedation Multi-Ingred Cream/Lotion/Oil/Oint 1 applic 01/25/21 13:27 Mineral Oil/Petrolatum, White Ophth Oint 3.5 Gm OU Q4HR PRN Dry Eye(s) Ondansetron HCl 4 mg 01/22/21 23:03 Ondansetron 4 Mg/2 Ml Inj IV Q8H PRN Nausea And Vomiting Senna/Docusate Sodium 1 tab 01/25/21 22:00 01/31/21 09:06 Sennosides/Docusate Sodium 8.6/50 Mg Tab FEEDTUBE 1 tab BID JACK Administration Simple Syrup 15 ml 01/27/21 11:37 Simple Syrup 15 Ml FEEDTUBE PRN PRN Hypoglycemia Simple Syrup 30 ml 01/27/21 11:37 Simple Syrup 15 Ml FEEDTUBE PRN PRN Hypoglycemia Sodium Bicarbonate 325 mg 01/27/21 11:37 Sodium Bicarbonate 325 Mg Tab FEEDTUBE PRN PRN For Clogged Feeding Tube Sodium Chloride 10 ml 01/22/21 23:45 01/31/21 09:06 Sodium Chloride 0.9% 10 Ml Flush Syringe IV 10 ml BID JACK Administration Sodium Chloride 10 ml 01/22/21 23:03 Sodium Chloride 0.9% 10 Ml Flush Syringe IV PRN PRN LINE FLUSH Voriconazole 300 mg 01/29/21 11:00 01/31/21 09:06 Voriconazole 200 Mg Tab PO 300 mg Q12HR JACK Administration Nutrition/Malnutrition Assess - Dietary Evaluation Nutrition/Malnutrition Findings: Nutrition Notes Start: 01/24/21 13:25 Freq: Status: Active Protocol: Document 01/31/21 11:11 KAMERON (Rec: 01/31/21 11:13 [id number]) Nutrition Notes Initial or Follow up Brief Note Current Diagnosis Sepsis,Respiratory Failure, Malnutrition Other Pertinent Diagnosis covid-19, pneumonia Current Diet Nepro 1.8 at 30 ml/hr Labs/Tests K 5.3 Subjective/Other Information Per RN, TF was running however , pt with high gastric residuals again. Pt to get reglan at noon. RN to reassess and restart TF as able. Unable to change TF due to high K. Nutrition Intervention Follow-Up By: 02/02/21 Additional Comments F/U: TF restart, tolerance and renal labs <STAR CHRISTY - Last Filed: 01/31/21 20:10> Assessment and Plan Assessment and plan: I saw and evaluated the patient. Discussed with the nurse practitioner and agree with their findings and plan as documented in this note. Hospitalist Physical - Constitutional Vitals: Temp Pulse Resp BP Pulse Ox 93.9 F L 84 20 118/52 89 01/31/21 16:53 01/31/21 19:45 01/31/21 19:45 01/31/21 19:45 01/31/21 19:45 Results - Labs CBC & Chem 7: 01/31/21 03:30 01/31/21 03:30 Labs: Laboratory Last Values WBC 31.3 K/mm3 (4.5-11.0) H 01/31/21 03:30 RBC 3.94 M/mm3 (3.65-5.03) 01/31/21 03:30 Hgb 11.4 gm/dl (11.8-15.2) L 01/31/21 03:30 Hct 34.6 % (35.5-45.6) L 01/31/21 03:30 MCV 88 fl (84-94) 01/31/21 03:30 MCH 29 pg (28-32) 01/31/21 03:30 MCHC 33 % (32-34) 01/31/21 03:30 RDW 14.7 % (13.2-15.2) 01/31/21 03:30 Plt Count 143 K/mm3 (140-440) 01/31/21 03:30 Lymph % (Auto) 4.4 % (13.4-35.0) L 01/23/21 05:29 [place] % (Auto) 6.4 % (0.0-7.3) 01/23/21 05:29 Lymph # (Auto) 0.8 K/mm3 (1.2-5.4) L 01/23/21 05:29 [place] # (Auto) 1.2 K/mm3 (0.0-0.8) H 01/23/21 05:29 Add Manual Diff Complete 01/22/21 11:06 Total Counted 100 01/22/21 11:06 Seg Neutrophils % 89.1 % (40.0-70.0) H 01/23/21 05:29 Seg Neuts % (Manual) 92.0 % (40.0-70.0) H 01/22/21 11:06 Band Neutrophils % 2.0 % 01/22/21 11:06 Lymphocytes % (Manual) 1.0 % (13.4-35.0) L 01/22/21 11:06 Monocytes % (Manual) 5.0 % (0.0-7.3) 01/22/21 11:06 Nucleated RBC % 1.0 % (0.0-0.9) H 01/22/21 11:06 Seg Neutrophils # 16.9 K/mm3 (1.8-7.7) H 01/23/21 05:29 Seg Neutrophils # Man 17.7 K/mm3 (1.8-7.7) H 01/22/21 11:06 Band Neutrophils # 0.4 K/mm3 01/22/21 11:06 Lymphocytes # (Manual) 0.2 K/mm3 (1.2-5.4) L 01/22/21 11:06 Abs React Lymphs (Man) 0.0 K/mm3 01/22/21 11:06 Monocytes # (Manual) 1.0 K/mm3 (0.0-0.8) H 01/22/21 11:06 Eosinophils # (Manual) 0.0 K/mm3 (0.0-0.4) 01/22/21 11:06 Basophils # (Manual) 0.0 K/mm3 (0.0-0.1) 01/22/21 11:06 Metamyelocytes # 0.0 K/mm3 01/22/21 11:06 Myelocytes # 0.0 K/mm3 01/22/21 11:06 Promyelocytes # 0.0 K/mm3 01/22/21 11:06 Blast Cells # 0.0 K/mm3 01/22/21 11:06 WBC Morphology Not Reportable 01/22/21 11:06 Hypersegmented Neuts Not Reportable 01/22/21 11:06 Hyposegmented Neuts Not Reportable 01/22/21 11:06 Hypogranular Neuts Not Reportable 01/22/21 11:06 Smudge Cells Not Reportable 01/22/21 11:06 Toxic Granulation Not Reportable 01/22/21 11:06 Toxic Vacuolation Not Reportable 01/22/21 11:06 Dohle Bodies Not Reportable 01/22/21 11:06 Pelger-Huet Anomaly Not Reportable 01/22/21 11:06 Rd Rods Not Reportable 01/22/21 11:06 Platelet Estimate Consistent w auto 01/22/21 11:06 Clumped Platelets Not Reportable 01/22/21 11:06 Plt Clumps, EDTA Not Reportable 01/22/21 11:06 Large Platelets Not Reportable 01/22/21 11:06 Giant Platelets Not Reportable 01/22/21 11:06 Platelet Satelliting Not Reportable 01/22/21 11:06 Plt Morphology Comment Not Reportable 01/22/21 11:06 RBC Morphology Normal 01/22/21 11:06 Dimorphic RBCs Not Reportable 01/22/21 11:06 Polychromasia Not Reportable 01/22/21 11:06 Hypochromasia Not Reportable 01/22/21 11:06 Poikilocytosis Not Reportable 01/22/21 11:06 Anisocytosis Not Reportable 01/22/21 11:06 Microcytosis Not Reportable 01/22/21 11:06 Macrocytosis Not Reportable 01/22/21 11:06 Spherocytes Not Reportable 01/22/21 11:06 Pappenheimer Bodies Not Reportable 01/22/21 11:06 Sickle Cells Not Reportable 01/22/21 11:06 Target Cells Not Reportable 01/22/21 11:06 Tear Drop Cells Not Reportable 01/22/21 11:06 Ovalocytes Not Reportable 01/22/21 11:06 Helmet Cells Not Reportable 01/22/21 11:06 Soliman-Brusly Bodies Not Reportable 01/22/21 11:06 [place] Rings Not Reportable 01/22/21 11:06 [place] Cells Not Reportable 01/22/21 11:06 Bite Cells Not Reportable 01/22/21 11:06 Crenated Cell Not Reportable 01/22/21 11:06 Elliptocytes Not Reportable 01/22/21 11:06 Acanthocytes (Spur) Not Reportable 01/22/21 11:06 Rouleaux Not Reportable 01/22/21 11:06 Hemoglobin C Crystals Not Reportable 01/22/21 11:06 Schistocytes Not Reportable 01/22/21 11:06 Malaria parasites Not Reportable 01/22/21 11:06 Lloyd Bodies Not Reportable 01/22/21 11:06 Hem Pathologist Commnt No 01/22/21 11:06 PT 17.3 Sec. (12.2-14.9) H 01/28/21 10:03 INR 1.36 (0.87-1.13) H 01/28/21 10:03 APTT 29.2 Sec. (24.2-36.6) 01/28/21 10:03 D-Dimer > 02312 ng/mlDDU (0-234) H 01/25/21 06:22 Heparin Anti-Xa Level 0.32 U.I./ml (0.3-0.7) 01/30/21 21:01 ABG pH 7.288 (7.320-7.450) L 01/30/21 04:05 POC ABG pCO2 49.7 mmHg (32.0-48.0) H 01/30/21 04:05 ABG pCO2 46.6 mm Hg 01/26/21 08:30 POC ABG pO2 169.7 mmHg (83-108) H 01/30/21 04:05 ABG pO2 124.5 mm Hg (80.0-90.0) H 01/26/21 08:30 POC ABG HCO3 23.3 01/30/21 04:05 ABG HCO3 21.7 mmol/L (20.0-26.0) 01/26/21 08:30 ABG O2 Saturation 99.3 (0-100) 01/30/21 04:05 ABG O2 Content 19.4 (0.0-44) 01/26/21 08:30 POC ABG Base Excess -3.6 01/30/21 04:05 ABG Base Excess -5.0 mmol/L (-2.0-3.0) L 01/26/21 08:30 ABG Hemoglobin 12.5 (12.0-17.5) 01/30/21 04:05 ABG Oxyhemoglobin 98.4 (94-98) H 01/30/21 04:05 ABG Carboxyhemoglobin 1.2 % (0.0-5.0) 01/26/21 08:30 ABG Methemoglobin 0.3 (0.0-1.5) 01/30/21 04:05 ABG Sodium 132.5 mmol/L (136.0-145.0) L 01/30/21 04:05 ABG Potassium 4.8 mmol/L (3.40-4.50) H 01/30/21 04:05 ABG Chloride 99.0 mmol/L (98-107) 01/30/21 04:05 ABG Glucose 196 mg/dL (65-95) H 01/30/21 04:05 Oxyhemoglobin 96.2 % (95.0-99.0) 01/26/21 08:30 Carboxyhemoglobin 0.6 (0.5-1.5) 01/30/21 04:05 FiO2 100 % 01/26/21 08:30 FiO2 % 100.0 01/30/21 04:05 Sodium 138 mmol/L (137-145) 01/31/21 03:30 Potassium 5.3 mmol/L (3.6-5.0) H 01/31/21 03:30 Chloride 98.1 mmol/L (98-107) 01/31/21 03:30 Carbon Dioxide 22 mmol/L (22-30) 01/31/21 03:30 Anion Gap 23 mmol/L 01/31/21 03:30 BUN 111 mg/dL (9-20) H 01/31/21 03:30 Creatinine 6.8 mg/dL (0.8-1.3) H 01/31/21 03:30 Estimated GFR 9 ml/min 01/31/21 03:30 BUN/Creatinine Ratio 16 % 01/31/21 03:30 Glucose 143 mg/dL (75-100) H 01/31/21 03:30 POC Glucose 142 mg/dL (70-105) H 01/31/21 17:19 Hemoglobin A1c 6.2 % (4-6) H 01/22/21 11:06 Lactic Acid 4.20 mmol/L (0.7-2.0) H* 01/22/21 11:06 Calcium 7.3 mg/dL (8.4-10.2) L 01/31/21 03:30 Phosphorus 8.60 mg/dL (2.5-4.5) H 01/30/21 05:00 Magnesium 2.40 mg/dL (1.7-2.3) H 01/30/21 05:00 Ferritin 1921.0 ng/mL (30.0-300.0) H 01/26/21 07:39 Total Bilirubin 1.60 mg/dL (0.1-1.2) H 01/31/21 03:30 Total Bilirubin 1.70 mg/dL (0.1-1.2) H 01/31/21 03:30 Direct Bilirubin 1.6 mg/dL (0-0.2) H 01/31/21 03:30 Indirect Bilirubin 0.0 mg/dL 01/31/21 03:30 AST 57 units/L (5-40) H 01/31/21 03:30 AST 57 units/L (5-40) H 01/31/21 03:30 ALT 50 units/L (7-56) 01/31/21 03:30 ALT 50 units/L (7-56) 01/31/21 03:30 Alkaline Phosphatase 92 units/L (35-129) 01/31/21 03:30 Alkaline Phosphatase 95 units/L (35-129) 01/31/21 03:30 Lactate Dehydrogenase 1559 units/L (91-180) H 01/26/21 07:32 Total Creatine Kinase 258 units/L (55-170) H 01/27/21 05:00 C-Reactive Protein 20.90 mg/dL (0.00-1.30) H 01/26/21 07:32 Serum Total Protein 7.2 g/dL (6.1-8.1) 01/27/21 11:55 Total Protein 5.5 g/dL (6.3-8.2) L 01/31/21 03:30 Total Protein 5.5 g/dL (6.3-8.2) L D 01/31/21 03:30 Albumin 2.5 g/dL (3.9-5) L 01/31/21 03:30 Albumin 2.5 g/dL (3.9-5) L 01/31/21 03:30 Albumin/Globulin Ratio 0.8 % 01/31/21 03:30 Albumin/Globulin Ratio 0.8 % 01/31/21 03:30 Lcskt-9-Erbptbqrb 0.7 g/dL (0.2-0.3) H 01/27/21 11:55 Axxca-1-Tigaatlvb 1.2 g/dL (0.5-0.9) H 01/27/21 11:55 Beta Globulins 0.7 g/dL (0.2-0.5) H 01/27/21 11:55 Gamma Globulins 1.6 g/dL (0.8-1.7) 01/27/21 11:55 Abnorm Protein Band 1 0.5 g/dL H 01/27/21 11:55 PEP Interpretation see below H 01/27/21 11:55 Triglycerides 369 mg/dL (2-149) H 01/28/21 04:00 Procalcitonin 2.11 ng/mL (<0.15) 01/25/21 06:22 TSH 0.013 mlU/mL (0.270-4.200) L 01/28/21 10:03 Thyroxine (T4) 3.3 ug/dL (4.0-12.0) L 01/30/21 15:35 Arterial Blood Glucose 196 mg/dL (65-95) H 01/30/21 04:05 Arterial Blood Ionized Calcium 4.0 mg/dL (4.6-5.3) L 01/30/21 04:05 ANURAG Screen Negative (Negative) 01/27/21 11:55 Complement C3 105 mg/dL (82-185) 01/27/21 11:55 Complement C4 17 mg/dL (15-53) 01/27/21 11:55 Coronavirus (PCR) Positive (Negative) A 01/23/21 09:00 Hepatitis A IgM Ab Non-reactive (NonReactive) 01/27/21 11:41 Hep Bs Antigen Nonreactive (Negative) 01/27/21 11:41 Hep B Core IgM Ab Non-reactive (NonReactive) 01/27/21 11:41 Hepatitis C Antibody Non-reactive (NonReactive) 01/27/21 11:41 Ramirez/IV: Voiding Method Incontinent Active Medications - Current Medications Current Medications: Generic Name Dose Route Start Last Admin Trade Name Freq PRN Reason Stop Dose Admin Acetaminophen 650 mg 01/22/21 23:03 Acetaminophen 325 Mg Tab PO Q4H PRN Pain MILD(1-3)/Fever >100.5/ANDERSEN Albumin Human 25 gm 01/27/21 09:35 Albumin Human 25% (25 Gm/100 Ml) Inj IV MELECIO PRN Hypotension Amiodarone HCl 200 mg 01/30/21 10:00 01/31/21 09:06 Amiodarone 200 Mg Tab PO 200 mg DAILY JACK Administration Lipase/Protease/Amylase 1 each 01/27/21 11:37 Lipase 10,500/Protease 25,000/Amylase 43,750 (Units) Dr Cap FEEDTUBE PRN PRN For Clogged Feeding Tube Dexamethasone 10 mg 01/24/21 22:00 01/30/21 21:29 Dexamethasone 4 Mg/Ml Vial IV 01/31/21 22:01 10 mg Q24HR@2200 JACK Administration Dextrose 50 ml 01/29/21 12:24 Dextrose 50% In Water (25gm) 50 Ml Syringe IV Q30MIN PRN Hypoglycemia Protocol Famotidine 20 mg 01/27/21 10:00 01/31/21 09:06 Famotidine 20 Mg/2 Ml Inj IV 20 mg DAILY JACK Administration Fentanyl 50 mcg 01/25/21 11:32 01/28/21 06:10 Fentanyl 100 Mcg/2 Ml Inj IV 50 mcg Q10MIN PRN Administration ANALGESIA Heparin Sodium (Porcine) 5,000 unit 01/28/21 09:27 Heparin 10,000 Units/10 Ml Vial IV Q6H PRN Anti-Xa Assay < 0.1 units/ml Hydrophilic Ointment 1 applic 01/25/21 13:27 Lip Therapy Vaseline TP Q2HR PRN Dry Lips Fentanyl Citrate 2,000 mcg in 100 mls @ 6.357 mls/hr 01/25/21 12:00 01/30/21 05:21 Fentanyl Drip Premix IV 0 mcg/kg/hr TITR JACK 0 mls/hr Titration Protocol 1 MCG/KG/HR Propofol 1,000 mg in 100 mls @ 3.814 mls/hr 01/25/21 14:00 01/30/21 05:19 Diprivan 10 Mg/Ml IV 0 mcg/kg/min TITR JACK 0 mls/hr Titration Protocol 5 MCG/KG/MIN Norepinephrine 4 mg in 250 mls @ 7.5 mls/hr 01/25/21 17:04 01/31/21 09:05 Levophed Drip 4 Mg/Ns 250 Ml IV 2 mcg/min TITR JACK 7.5 mls/hr Titration Protocol 2 MCG/MIN Midazolam HCl 100 mg/ Sodium 100 mls @ 1 mls/hr 01/26/21 11:00 01/30/21 05:24 Chloride IV 0 mg/hr TITR JACK 0 mls/hr Titration Protocol 1 MG/HR Sodium Chloride 100 mls @ 999 mls/hr 01/27/21 09:35 Nacl 0.9% IV MELECIO PRN Hypotension Vasopressin 20 unit/ Sodium 101 mls @ 9.09 mls/hr 01/28/21 07:00 01/30/21 08:55 Chloride IV Infused TITR JACK Titration Protocol 0.03 UNITS/MIN Heparin Sodium/Sodium Chloride 25,000 unit in 500 mls @ 30 mls/hr 01/28/21 11:00 01/31/21 19:23 Heparin/ 0.45% Nacl-25,000 Unit/500 Ml IV 1,050 units/hr TITR JACK 21 mls/hr Titration Protocol 1,500 UNITS/HR Insulin Human Regular 0 units 01/29/21 13:00 01/31/21 19:03 Insulin Regular, Human 100 Units/1 Ml SUB-Q Not Given Q6HR JACK Protocol Metoclopramide HCl 5 mg 01/30/21 12:00 01/31/21 19:03 Metoclopramide 10 Mg/2 Ml Inj IV 5 mg Q6HR JACK Administration Midazolam HCl 2 mg 01/25/21 16:13 Midazolam 2 Mg/2 Ml Inj IV Q10MIN PRN Sedation Multi-Ingred Cream/Lotion/Oil/Oint 1 applic 01/25/21 13:27 Mineral Oil/Petrolatum, White Ophth Oint 3.5 Gm OU Q4HR PRN Dry Eye(s) Ondansetron HCl 4 mg 01/22/21 23:03 Ondansetron 4 Mg/2 Ml Inj IV Q8H PRN Nausea And Vomiting Senna/Docusate Sodium 1 tab 01/25/21 22:00 01/31/21 09:06 Sennosides/Docusate Sodium 8.6/50 Mg Tab FEEDTUBE 1 tab BID JACK Administration Simple Syrup 15 ml 01/27/21 11:37 Simple Syrup 15 Ml FEEDTUBE PRN PRN Hypoglycemia Simple Syrup 30 ml 01/27/21 11:37 Simple Syrup 15 Ml FEEDTUBE PRN PRN Hypoglycemia Sodium Bicarbonate 325 mg 01/27/21 11:37 Sodium Bicarbonate 325 Mg Tab FEEDTUBE PRN PRN For Clogged Feeding Tube Sodium Chloride 10 ml 01/22/21 23:45 01/31/21 09:06 Sodium Chloride 0.9% 10 Ml Flush Syringe IV 10 ml BID JACK Administration Sodium Chloride 10 ml 01/22/21 23:03 Sodium Chloride 0.9% 10 Ml Flush Syringe IV PRN PRN LINE FLUSH Voriconazole 300 mg 01/29/21 11:00 01/31/21 09:06 Voriconazole 200 Mg Tab PO 300 mg Q12HR JACK Administration Nutrition/Malnutrition Assess - Dietary Evaluation Nutrition/Malnutrition Findings: Nutrition Notes Start: 01/24/21 13:25 Freq: Status: Active Protocol: Document 01/31/21 11:11 KAMERON (Rec: 01/31/21 11:13 KAMERON [id number]) Nutrition Notes Initial or Follow up Brief Note Current Diagnosis Sepsis,Respiratory Failure, Malnutrition Other Pertinent Diagnosis covid-19, pneumonia Current Diet Nepro 1.8 at 30 ml/hr Labs/Tests K 5.3 Subjective/Other Information Per RN, TF was running however , pt with high gastric residuals again. Pt to get reglan at noon. RN to reassess and restart TF as able. Unable to change TF due to high K. Nutrition Intervention Follow-Up By: 02/02/21 Additional Comments F/U: TF restart, tolerance and renal labs
--- NOTE | 2021-01-31 19:50 | Procedure Note ---
Date of procedure: 01/31/21 Pre-op diagnosis: right ptx w/ bilateral subcutaneous emphysema Post-op diagnosis: same Procedure: Procedure: Placement of right chest tube, attempted placement of left chest tube Details of procedure: A right chest tube 28 Fr was placed in the 4-5th inter costal space mid axillary line in the right side under sterile conditions. Patient was noted to have 5 to 6 cm of subcutaneous tissue before getting into the thorax. The chest tube was originally read at 24 cm at the level of the skin. A postplacement chest x-ray showed that the chest tube was directed inferiorly kinked and angling up. The chest tube was then withdrawn approximately 7 to 8 cm and read at approximately 14 cm level of the skin. Post adjustment chest x-ray showed that the chest tube was no longer kinked however still directed inferiorly. Attempted directed superiorly however possibly due to scar tissue it cannot be directed in that direction. Chest tube was secured with silk followed by an occlusive dressing. In the same sterile fashion, using the same technique a chest tube with us in the placed in the left side. However once entering the thoracic cavity using a finger sweep there was noted to be circumferential adhesions that would not allow placements of a chest tube into the thoracic cavity to a significant length. We decided to not place a chest tube for fear of causing injury to the lung parenchyma. The skin was closed with a whipstitch using silk followed by an occlusive dressing. Preliminary read on my examination of the chest x-ray after this procedure did not show any significant pneumothorax. Anesthesia: local Surgeon: SHANICE KINCAID Estimated blood loss: minimal Pathology: none Condition: critical Disposition: ICU
--- NOTE | 2021-01-31 20:19 | XRay Report ---
CHEST 1 VIEW 7:05 PM INDICATION: right side chest tube. COMPARISON: Earlier today. FINDINGS: Support devices: Right thoracostomy tube has been placed with tip at the right base medially. Previou sly seen support devices are unchanged. Heart: Stable. Lungs/Pleura: No right pneumothorax is identified. Bilateral pulmonary opacities are stable. There is lucency at the left costophrenic angle. Extensive subcutaneous emphysema persists. IMPRESSION: 1. Interval placement of right thoracostomy tube; no right pneumothorax or right pleural effusion is seen. 2. There is lucency at the left costophrenic angle with increased soft tissue gas in the lateral left hemithorax. This could be due to a left basilar pneumothorax. Attention at follow-up is recommended. Signer Name: Wm Queen MD Signed: 01/31/2021 8:14 PM Workstation Name: [id number]
[2021-02-01 05:18] LABS: Hematocrit 34.6 % (35.5-45.6); Hemoglobin 11.6 gm/dl (11.8-15.2)
[2021-02-01 05:39] LABS: Albumin 2.7 g/dL (3.9-5); Calcium 7.1 mg/dL (8.4-10.2)
[2021-02-01] MEDS: INSULIN REGULAR, HUMAN 100 UNITS/1 ML SUB-Q SCH ×3 (06:39→11:46)
[2021-02-01] MEDS: METOCLOPRAMIDE 10 MG/2 ML INJ IV SCH ×3 (06:40→17:44)
[2021-02-01] MEDS: SENNOSIDES/DOCUSATE SODIUM 8.6/50 MG TAB FEEDTUBE SCH ×3 (06:41→21:49)
[2021-02-01] MEDS: VORICONAZOLE 200 MG TAB PO SCH ×3 (06:41→21:49)
[2021-02-01] MEDS: dexAMETHasone 4 MG/ML VIAL IV SCH (06:44)
[2021-02-01] MEDS: AMIODARONE 200 MG TAB PO SCH (09:06)
[2021-02-01] MEDS: FAMOTIDINE 20 MG/2 ML INJ IV SCH (09:07)
[2021-02-01] MEDS: HEPARIN/ 0.45% NACL DRIP 25,000 UNIT/500 ML BAG IV SCH (10:00)
--- NOTE | 2021-02-01 10:35 | Progress Note ---
Subjective Date of service: 02/01/21 Principal diagnosis: Ac hypoxemic resp failure; COVID-19; Pneumonia; Sepsis; Morbid obesity Interval history: Assessment: Acute kidney injury Hyperkalemia Acidosis Azotemia Acute respiratory failure, status post intubation Covid pneumonia pneumothorax Septic shock Recommendations HD q MWF and prn Consent was obtained from for [facility] [employer]. Possible complications on dialysis were also explained in detail. Assess daily for needs for additional hemodialysis sessions UF Tolerated with hd chest tube --surgery note reviewed daily lytes, strict i/os likey ATN due to COvid infection Renally dose medications Avoid nephrotoxins lifelink referral noted, may not be detention dialysis appropriate Subjective Principal diagnosis: Ac hypoxemic resp failure; COVID-19; Pneumonia; Sepsis; Morbid obesity Interval history: Remains intubated. Objective - Exam exam deferred for preservation of ppe, primary team exam noted Objective - Vital Signs Vital signs: Vital Signs - 12hr 01/31/21 01/31/21 01/31/21 22:45 23:00 23:16 Temperature Pulse Rate 91 H 91 H 92 H Pulse Rate [ From Monitor] Respiratory 23 24 24 Rate Blood Pressure 111/54 115/55 108/50 O2 Sat by Pulse 90 94 91 Oximetry 01/31/21 01/31/21 02/01/21 23:30 23:45 00:00 Temperature 98.8 F Pulse Rate 92 H 97 H 96 H Pulse Rate [ 100 H From Monitor] Respiratory 25 H 29 H 27 H Rate Blood Pressure 107/49 114/48 114/48 O2 Sat by Pulse 91 90 85 Oximetry 02/01/21 02/01/21 02/01/21 00:10 00:16 00:30 Temperature Pulse Rate 62 99 H 104 H Pulse Rate [ From Monitor] Respiratory 31 H 27 H Rate Blood Pressure 129/54 134/57 117/59 O2 Sat by Pulse 96 87 90 Oximetry 02/01/21 02/01/21 02/01/21 00:45 01:00 01:15 Temperature Pulse Rate 100 H 100 H 100 H Pulse Rate [ From Monitor] Respiratory 32 H 33 H 25 H Rate Blood Pressure 124/57 113/56 119/54 O2 Sat by Pulse 95 94 90 Oximetry 02/01/21 02/01/21 02/01/21 01:30 01:45 02:00 Temperature Pulse Rate 99 H 98 H 98 H Pulse Rate [ From Monitor] Respiratory 26 H 26 H 25 H Rate Blood Pressure 113/56 123/53 115/53 O2 Sat by Pulse 94 91 92 Oximetry 02/01/21 02/01/21 02/01/21 02:15 02:30 02:45 Temperature Pulse Rate 97 H 97 H 98 H Pulse Rate [ From Monitor] Respiratory 26 H 27 H 28 H Rate Blood Pressure 131/66 131/61 130/56 O2 Sat by Pulse 92 91 90 Oximetry 02/01/21 02/01/21 02/01/21 03:00 03:08 03:15 Temperature 97.5 F L Pulse Rate 98 H 100 H Pulse Rate [ From Monitor] Respiratory 18 27 H Rate Blood Pressure 121/55 123/63 O2 Sat by Pulse 90 89 Oximetry 02/01/21 02/01/21 02/01/21 03:30 03:45 04:00 Temperature Pulse Rate 101 H 102 H 104 H Pulse Rate [ 103 H From Monitor] Respiratory 28 H 26 H 29 H Rate Blood Pressure 122/61 119/59 127/52 O2 Sat by Pulse 87 90 89 Oximetry 02/01/21 02/01/21 02/01/21 04:15 04:30 04:45 Temperature Pulse Rate 105 H 106 H 105 H Pulse Rate [ From Monitor] Respiratory 28 H 27 H 28 H Rate Blood Pressure 132/64 139/60 138/62 O2 Sat by Pulse 89 89 88 Oximetry 02/01/21 02/01/21 02/01/21 05:00 05:15 05:30 Temperature Pulse Rate 106 H 108 H 109 H Pulse Rate [ From Monitor] Respiratory 28 H 29 H 30 H Rate Blood Pressure 129/66 147/58 144/60 O2 Sat by Pulse 91 90 89 Oximetry 02/01/21 02/01/21 02/01/21 05:45 06:00 06:15 Temperature Pulse Rate 110 H 110 H 111 H Pulse Rate [ From Monitor] Respiratory 23 31 H 31 H Rate Blood Pressure 147/64 150/63 148/61 O2 Sat by Pulse 88 88 89 Oximetry 02/01/21 02/01/21 02/01/21 06:30 06:45 07:00 Temperature Pulse Rate 112 H 114 H 114 H Pulse Rate [ From Monitor] Respiratory 31 H 31 H 32 H Rate Blood Pressure 147/62 148/62 151/64 O2 Sat by Pulse 88 89 88 Oximetry 08/02/01/21 02/01/21 07:15 07:30 07:34 Temperature Pulse Rate 114 H 116 H 108 H Pulse Rate [ From Monitor] Respiratory 33 H 32 H Rate Blood Pressure 149/64 148/64 147/58 O2 Sat by Pulse 89 90 90 Oximetry 02/01/21 02/01/21 02/01/21 07:45 08:00 08:15 Temperature 99.5 F Pulse Rate 116 H 116 H 117 H Pulse Rate [ From Monitor] Respiratory 32 H 33 H 33 H Rate Blood Pressure 146/64 148/66 144/63 O2 Sat by Pulse 89 89 89 Oximetry 02/01/21 02/01/21 02/01/21 08:30 08:45 09:00 Temperature 99.7 F H Pulse Rate 117 H 117 H 115 H Pulse Rate [ From Monitor] Respiratory 33 H 34 H 33 H Rate Blood Pressure 148/66 145/63 145/63 O2 Sat by Pulse 90 91 89 Oximetry 02/01/21 02/01/21 02/01/21 09:15 09:30 09:45 Temperature Pulse Rate 114 H 118 H 113 H Pulse Rate [ From Monitor] Respiratory 33 H 35 H 33 H Rate Blood Pressure 154/63 160/82 145/61 O2 Sat by Pulse 89 90 92 Oximetry 02/01/21 10:00 Temperature Pulse Rate 111 H Pulse Rate [ From Monitor] Respiratory 31 H Rate Blood Pressure 146/61 O2 Sat by Pulse 89 Oximetry - Lab 02/01/21 04:00 02/01/21 04:00 Most recent lab results ABG pH 7.294 (7.320-7.450) L 02/01/21 03:10 ABG pCO2 46.6 mm Hg 01/26/21 08:30 ABG pO2 124.5 mm Hg (80.0-90.0) H 01/26/21 08:30 ABG HCO3 21.7 mmol/L (20.0-26.0) 01/26/21 08:30 ABG O2 Saturation 94.0 (0-100) 02/01/21 03:10 Calcium 7.1 mg/dL (8.4-10.2) L 02/01/21 04:00 Phosphorus 8.60 mg/dL (2.5-4.5) H 01/30/21 05:00 Magnesium 2.40 mg/dL (1.7-2.3) H 01/30/21 05:00 Medications & Allergies - Medications Allergies/Adverse Reactions: Allergies No Known Allergies Allergy (Verified 01/27/21 15:55) Per Peg López Home Medications: Home Medications Medication Instructions Recorded Confirmed Last Taken Type No Known Home Medications [No 01/27/21 01/27/21 Unknown History Reported Home Medications] Active Medications: Generic Name Dose Route Start Last Admin Trade Name Freq PRN Reason Stop Dose Admin Acetaminophen 650 mg 01/22/21 23:03 Acetaminophen 325 Mg Tab PO Q4H PRN Pain MILD(1-3)/Fever >100.5/ANDERSEN Albumin Human 25 gm 01/27/21 09:35 Albumin Human 25% (25 Gm/100 Ml) Inj IV MELECIO PRN Hypotension Amiodarone HCl 200 mg 01/30/21 10:00 02/01/21 09:06 Amiodarone 200 Mg Tab PO 200 mg DAILY JACK Administration Lipase/Protease/Amylase 1 each 01/27/21 11:37 Lipase 10,500/Protease 25,000/Amylase 43,750 (Units) Dr Cap FEEDTUBE PRN PRN For Clogged Feeding Tube Dextrose 50 ml 01/29/21 12:24 Dextrose 50% In Water (25gm) 50 Ml Syringe IV Q30MIN PRN Hypoglycemia Protocol Famotidine 20 mg 01/27/21 10:00 02/01/21 09:07 Famotidine 20 Mg/2 Ml Inj IV 20 mg DAILY JACK Administration Fentanyl 50 mcg 01/25/21 11:32 01/28/21 06:10 Fentanyl 100 Mcg/2 Ml Inj IV 50 mcg Q10MIN PRN Administration ANALGESIA Heparin Sodium (Porcine) 5,000 unit 01/28/21 09:27 Heparin 10,000 Units/10 Ml Vial IV Q6H PRN Anti-Xa Assay < 0.1 units/ml Hydrophilic Ointment 1 applic 01/25/21 13:27 Lip Therapy Vaseline TP Q2HR PRN Dry Lips Fentanyl Citrate 2,000 mcg in 100 mls @ 6.357 mls/hr 01/25/21 12:00 01/30/21 05:21 Fentanyl Drip Premix IV 0 mcg/kg/hr TITR JACK 0 mls/hr Titration Protocol 1 MCG/KG/HR Propofol 1,000 mg in 100 mls @ 3.814 mls/hr 01/25/21 14:00 01/30/21 05:19 Diprivan 10 Mg/Ml IV 0 mcg/kg/min TITR JACK 0 mls/hr Titration Protocol 5 MCG/KG/MIN Norepinephrine 4 mg in 250 mls @ 7.5 mls/hr 01/25/21 17:04 01/31/21 09:05 Levophed Drip 4 Mg/Ns 250 Ml IV 2 mcg/min TITR JACK 7.5 mls/hr Titration Protocol 2 MCG/MIN Midazolam HCl 100 mg/ Sodium 100 mls @ 1 mls/hr 01/26/21 11:00 01/30/21 05:24 Chloride IV 0 mg/hr TITR JACK 0 mls/hr Titration Protocol 1 MG/HR Sodium Chloride 100 mls @ 999 mls/hr 01/27/21 09:35 Nacl 0.9% IV MELECIO PRN Hypotension Vasopressin 20 unit/ Sodium 101 mls @ 9.09 mls/hr 01/28/21 07:00 01/30/21 08:55 Chloride IV Infused TITR JACK Titration Protocol 0.03 UNITS/MIN Heparin Sodium/Sodium Chloride 25,000 unit in 500 mls @ 30 mls/hr 01/28/21 11:00 02/01/21 01:45 Heparin/ 0.45% Nacl-25,000 Unit/500 Ml IV 1,150 units/hr TITR JACK 23 mls/hr Titration Protocol 1,500 UNITS/HR Insulin Human Regular 0 units 01/29/21 13:00 02/01/21 06:39 Insulin Regular, Human 100 Units/1 Ml SUB-Q 1 units Q6HR JACK Administration Protocol Metoclopramide HCl 5 mg 01/30/21 12:00 02/01/21 06:40 Metoclopramide 10 Mg/2 Ml Inj IV 5 mg Q6HR JACK Administration Midazolam HCl 2 mg 01/25/21 16:13 Midazolam 2 Mg/2 Ml Inj IV Q10MIN PRN Sedation Multi-Ingred Cream/Lotion/Oil/Oint 1 applic 01/25/21 13:27 Mineral Oil/Petrolatum, White Ophth Oint 3.5 Gm OU Q4HR PRN Dry Eye(s) Ondansetron HCl 4 mg 01/22/21 23:03 Ondansetron 4 Mg/2 Ml Inj IV Q8H PRN Nausea And Vomiting Senna/Docusate Sodium 1 tab 01/25/21 22:00 02/01/21 09:06 Sennosides/Docusate Sodium 8.6/50 Mg Tab FEEDTUBE 1 tab BID JACK Administration Simple Syrup 15 ml 01/27/21 11:37 Simple Syrup 15 Ml FEEDTUBE PRN PRN Hypoglycemia Simple Syrup 30 ml 01/27/21 11:37 Simple Syrup 15 Ml FEEDTUBE PRN PRN Hypoglycemia Sodium Bicarbonate 325 mg 01/27/21 11:37 Sodium Bicarbonate 325 Mg Tab FEEDTUBE PRN PRN For Clogged Feeding Tube Sodium Chloride 10 ml 01/22/21 23:45 02/01/21 09:07 Sodium Chloride 0.9% 10 Ml Flush Syringe IV 10 ml BID JACK Administration Sodium Chloride 10 ml 01/22/21 23:03 Sodium Chloride 0.9% 10 Ml Flush Syringe IV PRN PRN LINE FLUSH Voriconazole 300 mg 01/29/21 11:00 02/01/21 09:06 Voriconazole 200 Mg Tab PO 300 mg Q12HR JACK Administration
[2021-02-01 10:37] LABS: INR 1.13 (0.87-1.13)
--- NOTE | 2021-02-01 10:50 | Progress Note ---
Assessment and Plan Cultures: SARS CoV2 PCR: positive 01/22/2021 blood culture: No growth 01/25/2021 endotracheal aspirate culture: Mold, sent to reference laboratory for further evaluation. A/P: 55/M with obesity, admitted with: #Shock: likely secondary to severe COVID-19. #Bilateral pneumonia: Secondary to COVID-19. Very high d-dimer. DVT scan negative. #Mold in sputum: ?colonization. Awaiting ID, meanwhile, initiated PO voriconazole given steroids and Actemra. Avoid ABLC given renal failure. #Acute hypoxic respiratory failure: Failed BiPAP. Requiring mechanical ventilation. #Subcutaneous emphysema, right-sided pneumothorax, was seen by surgery and underwent right-sided chest tube placement 01/31/2021. #SEDRICK: creatinine elevated, on HD per nephrology. #Morbid obesity Recs: -s/p Actemra on 01/26/2021 -complete at least 10 days of steroids -continue PO voriconazole given steroids and Actemra. Avoid ABLC given renal failure. F/u Aspergillus galactomannan and 1,3 mdth-m-ffodvd -prophylactic anticoagulation based on d-dimer per hospital protocol. -extremely poor prognosis Misael Dudley MD, FACP [facility] ([facility] O: [phone] F: [phone] Subjective Date of service: 02/01/21 Principal diagnosis: Ac hypoxemic resp failure; COVID-19; Pneumonia; Sepsis; Morbid obesity Interval history: No fever. Remains on the vent, 100% FiO2, 14 of PEEP on heparin drip, on norepinephrine. Off vasopressin. Found to have subcutaneous emphysema, right- sided pneumothorax, was seen by surgery and underwent right-sided chest tube placement. Objective - Exam Narrative Exam: Physical Exam (reviewed in chart to minimize risk of transmission) Constitutional: deferred Head, Ears, Nose: deferred Eyes: deferred Neck: deferred Oral: deferred Cardiovascular: deferred Respiratory: deferred GI: deferred Musculoskeletal: deferred Skin: deferred Hem/Lymphatic: deferred Psych: deferred Neurological: deferred - Constitutional Vitals: Vital Signs Temp Pulse Resp BP Pulse Ox 99.7 F H 111 H 31 H 146/61 89 02/01/21 09:00 02/01/21 10:00 02/01/21 10:00 02/01/21 10:00 02/01/21 10:00 Temperature -Last 24 Hours Temperature 99.7 F Temperature 99.5 F Temperature 97.5 F Temperature 98.8 F Temperature 98.6 F Temperature 93.9 F Temperature 93.6 F Temperature 98.7 F - Labs CBC & Chem 7: 02/01/21 04:00 02/01/21 04:00 Labs: Abnormal lab results 01/27/21 01/27/21 01/31/21 Range/Units 11:55 11:55 12:00 Hgb (11.8-15.2) gm/dl Hct (35.5-45.6) % PT (12.2-14.9) Sec. Heparin Anti-Xa Level (0.3-0.7) U.I./ml ABG pH (7.320-7.450) POC ABG pCO2 (32.0-48.0) mmHg POC ABG pO2 (83-108) mmHg ABG Oxyhemoglobin (94-98) ABG Sodium (136.0-145.0) mmol/L ABG Potassium (3.40-4.50) mmol/L ABG Chloride (98-107) mmol/L ABG Glucose (65-95) mg/dL Sodium (137-145) mmol/L Potassium (3.6-5.0) mmol/L Chloride (98-107) mmol/L BUN (9-20) mg/dL Creatinine (0.8-1.3) mg/dL Glucose (75-100) mg/dL POC Glucose 152 H (70-105) mg/dL Calcium (8.4-10.2) mg/dL Total Bilirubin (0.1-1.2) mg/dL AST (5-40) units/L ALT (7-56) units/L Total Protein (6.3-8.2) g/dL Albumin 2.5 L (3.8-4.8) g/dL Ixxbo-5-Nydewyagr 0.7 H (0.2-0.3) g/dL Asbtj-0-Kelmgryed 1.2 H (0.5-0.9) g/dL Beta Globulins 0.7 H (0.2-0.5) g/dL Abnorm Protein Band 1 0.5 H g/dL PEP Interpretation see below H Arterial Blood Glucose (65-95) mg/dL Arterial Blood Ionized Calcium (4.6-5.3) mg/dL Immunofix Electrophor see below H 01/31/21 01/31/21 02/01/21 Range/Units 17:19 23:46 00:25 Hgb (11.8-15.2) gm/dl Hct (35.5-45.6) % PT (12.2-14.9) Sec. Heparin Anti-Xa Level 0.19 L (0.3-0.7) U.I./ml ABG pH (7.320-7.450) POC ABG pCO2 (32.0-48.0) mmHg POC ABG pO2 (83-108) mmHg ABG Oxyhemoglobin (94-98) ABG Sodium (136.0-145.0) mmol/L ABG Potassium (3.40-4.50) mmol/L ABG Chloride (98-107) mmol/L ABG Glucose (65-95) mg/dL Sodium (137-145) mmol/L Potassium (3.6-5.0) mmol/L Chloride (98-107) mmol/L BUN (9-20) mg/dL Creatinine (0.8-1.3) mg/dL Glucose (75-100) mg/dL POC Glucose 142 H 140 H (70-105) mg/dL Calcium (8.4-10.2) mg/dL Total Bilirubin (0.1-1.2) mg/dL AST (5-40) units/L ALT (7-56) units/L Total Protein (6.3-8.2) g/dL Albumin (3.8-4.8) g/dL Kwgwu-0-Hguohkhkg (0.2-0.3) g/dL Fcsbw-6-Vxmbryhhb (0.5-0.9) g/dL Beta Globulins (0.2-0.5) g/dL Abnorm Protein Band 1 g/dL PEP Interpretation Arterial Blood Glucose (65-95) mg/dL Arterial Blood Ionized Calcium (4.6-5.3) mg/dL Immunofix Electrophor 02/01/21 02/01/21 02/01/21 Range/Units 03:10 04:00 04:00 Hgb 11.6 L (11.8-15.2) gm/dl Hct 34.6 L (35.5-45.6) % PT (12.2-14.9) Sec. Heparin Anti-Xa Level (0.3-0.7) U.I./ml ABG pH 7.294 L (7.320-7.450) POC ABG pCO2 50.8 H (32.0-48.0) mmHg POC ABG pO2 77.2 L (83-108) mmHg ABG Oxyhemoglobin 92.9 L (94-98) ABG Sodium 131.4 L (136.0-145.0) mmol/L ABG Potassium 5.2 H (3.40-4.50) mmol/L ABG Chloride 97.0 L (98-107) mmol/L ABG Glucose 158 H (65-95) mg/dL Sodium 136 L (137-145) mmol/L Potassium 5.2 H (3.6-5.0) mmol/L Chloride 93.6 L (98-107) mmol/L BUN 78 H (9-20) mg/dL Creatinine 5.7 H (0.8-1.3) mg/dL Glucose 152 H (75-100) mg/dL POC Glucose (70-105) mg/dL Calcium 7.1 L (8.4-10.2) mg/dL Total Bilirubin 3.00 H (0.1-1.2) mg/dL AST 117 H (5-40) units/L ALT 108 H (7-56) units/L Total Protein 5.6 L (6.3-8.2) g/dL Albumin 2.7 L (3.8-4.8) g/dL Souxs-2-Vuoioyzeb (0.2-0.3) g/dL Udrtx-6-Bbrrqrskh (0.5-0.9) g/dL Beta Globulins (0.2-0.5) g/dL Abnorm Protein Band 1 g/dL PEP Interpretation Arterial Blood Glucose 158 H (65-95) mg/dL Arterial Blood Ionized Calcium 3.9 L (4.6-5.3) mg/dL Immunofix Electrophor 02/01/21 02/01/21 Range/Units 05:36 09:15 Hgb (11.8-15.2) gm/dl Hct (35.5-45.6) % PT 15.1 H (12.2-14.9) Sec. Heparin Anti-Xa Level (0.3-0.7) U.I./ml ABG pH (7.320-7.450) POC ABG pCO2 (32.0-48.0) mmHg POC ABG pO2 (83-108) mmHg ABG Oxyhemoglobin (94-98) ABG Sodium (136.0-145.0) mmol/L ABG Potassium (3.40-4.50) mmol/L ABG Chloride (98-107) mmol/L ABG Glucose (65-95) mg/dL Sodium (137-145) mmol/L Potassium (3.6-5.0) mmol/L Chloride (98-107) mmol/L BUN (9-20) mg/dL Creatinine (0.8-1.3) mg/dL Glucose (75-100) mg/dL POC Glucose 167 H (70-105) mg/dL Calcium (8.4-10.2) mg/dL Total Bilirubin (0.1-1.2) mg/dL AST (5-40) units/L ALT (7-56) units/L Total Protein (6.3-8.2) g/dL Albumin (3.8-4.8) g/dL Jqoor-0-Xcnjerxao (0.2-0.3) g/dL Plnyy-1-Fnqssxwtw (0.5-0.9) g/dL Beta Globulins (0.2-0.5) g/dL Abnorm Protein Band 1 g/dL PEP Interpretation Arterial Blood Glucose (65-95) mg/dL Arterial Blood Ionized Calcium (4.6-5.3) mg/dL Immunofix Electrophor
--- NOTE | 2021-02-01 11:12 | Ultrasound Report ---
ULTRASOUND ABDOMEN, LIMITED (RIGHT UPPER QUADRANT) INDICATION: elevated lfts. COMPARISON: None available. FINDINGS: Pancreas: Not visualized secondary to bandaging and bowel gas Liver: Moderate coarse increased echotexture characteristic for steatosis. Liver measures 16.5 cm Gallbladder: Normal. Bile ducts: Normal. Common Bile Duct measures 4 mm. Free fluid: None. Additional Findings: None. IMPRESSION: 1. Hepatic steatosis. 2. Pancreas not visualized 3. Otherwise negative gallbladder ultrasound Signer Name: Tao Márquez MD Signed: 02/01/2021 11:07 AM Workstation Name: [id number]
--- NOTE | 2021-02-01 11:56 | Progress Note ---
Assessment and Plan Acute Respiratory Failure COVID-19 PNA Septic Shock * Patient intubated. ID following * Continue to wean pressors as tolerated SEDRICK (initiated on dialysis) * Nephrology following Sinus tachycardia New Onset AF with RVR * Patient sinus tachycardai 100s-110s on monitor * Echo 01/29/2021- Technically difficult study, no interpretable images were seen. Unable to draw conclusions * Continue anticoagulation with IV heparin gtt for now. * PO Amio 200mg daily. Follow LFTs Will follow. Pt seen in conjunction with Dr. Cordero, who agrees with the assessment and plan of care. - Patient Problems (1) Acute respiratory failure due to COVID-19 Current Visit: Yes Status: Acute (2) Atrial fibrillation with RVR Current Visit: Yes Status: Acute (3) Hypotension Current Visit: Yes Status: Acute (4) Morbid obesity with BMI of 40.0-44.9, adult Current Visit: Yes Status: Acute (5) Multifocal pneumonia Current Visit: Yes Status: Acute (6) Sepsis Current Visit: Yes Status: Acute (7) Chronic venous insufficiency Current Visit: Yes Status: Chronic Subjective Date of service: 02/01/21 Principal diagnosis: Ac hypoxemic resp failure; COVID-19; Pneumonia; Sepsis; Morbid obesity Interval history: Patient is intubated. PAtient was found to have pneumothorax and chest tube was inserted sinus tachycardia 100s-110s on with no events Objective Last Vital Signs Temp 101 F H 02/01/21 11:43 Pulse 108 H 02/01/21 11:00 Resp 34 H 02/01/21 11:00 BP 139/64 02/01/21 11:00 Pulse Ox 92 02/01/21 11:00 - Physical Examination General: Other (intubated) HEENT: Positive: Normocephaly Neck: Positive: trachea midline. Negative: JVD/HJR Cardiac: Positive: Regular Rhythm, Tachycardia Lungs: Positive: Ventilated Respirations Neuro: Positive: Other (intubated) Abdomen: Positive: Soft Skin: Negative: Rash Musculoskeletal: No Fluid Collection Extremities: Present: lower extr. pulses, edema, Other (chronic changes) - Labs and Meds Cardiac Enzymes 02/01/21 Range/Units 04:00 AST 117 H (5-40) units/L Coagulation 02/01/21 Range/Units 09:15 PT 15.1 H (12.2-14.9) Sec. INR 1.13 (0.87-1.13) CBC 02/01/21 Range/Units 04:00 Hgb 11.6 L (11.8-15.2) gm/dl Hct 34.6 L (35.5-45.6) % Plt Count 150 (140-440) K/mm3 Comprehensive Metabolic Panel 01/27/21 02/01/21 Range/Units 11:55 04:00 Sodium 136 L (137-145) mmol/L Potassium 5.2 H (3.6-5.0) mmol/L Chloride 93.6 L (98-107) mmol/L Carbon Dioxide 26 (22-30) mmol/L BUN 78 H (9-20) mg/dL Creatinine 5.7 H (0.8-1.3) mg/dL Glucose 152 H (75-100) mg/dL Calcium 7.1 L (8.4-10.2) mg/dL AST 117 H (5-40) units/L ALT 108 H (7-56) units/L Alkaline Phosphatase 97 (35-129) units/L Total Protein 5.6 L (6.3-8.2) g/dL Albumin 2.5 L 2.7 L (3.8-4.8) g/dL - Imaging and Cardiology EKG: report reviewed, image reviewed Echo: report reviewed - Telemetry EKG Rhythm: Sinus Tachycardia - EKG Sinus rhythms and dysrhythmias: sinus tachycardia Repolarization changes or abnormalities: nonspecific abnormality, ST segment, and/or T wave - Allied health notes Allied health notes reviewed: nursing
--- NOTE | 2021-02-01 12:55 | XRay Report ---
CHEST 1 VIEW 02/01/2021 11:43 AM INDICATION / CLINICAL INFORMATION: pneumothorax. COMPARISON: 01/31/2021 FINDINGS: SUPPORT DEVICES: Stable, satisfactory device positioning. HEART / MEDIASTINUM: Stable. LUNGS / PLEURA: Stable diffuse bilateral pulmonary opacities. Moderate left pneumothorax increased in size. ADDITIONAL FINDINGS: No significant additional findings. IMPRESSION: 1. Moderate left pneumothorax has increased in size from the prior study. Signer Name: Colin Carey MD Signed: 02/01/2021 12:50 PM Workstation Name: [id number]
--- NOTE | 2021-02-01 12:59 | Progress Note ---
<CHAVEZANGIE OmarNat - Last Filed: 02/01/21 17:08> Assessment and Plan Assessment and plan: This is a 55-year-old male with morbid obesity, former nicotine abuse and venous insufficiency who was admitted as a COVID-19 PUI with acute hypoxic respiratory failure, sepsis, multifocal pneumonia Neuro: Acute metabolic encephalopathy -Off sedation for several days unfortunately requiring 4 primary supports and unable to get imaging -EEG pending -Avoid delirium Cardio: A. fib with RVR -Cardiology consulted, appreciate recommendations -Patient transitioned from IV amiodarone to p.o. amiodarone -Echocardiogram completed ee results -Blood pressure monitor per protocol -Wean vasopressor support for MAP goal greater than 65 Respiratory: Acute hypoxic respiratory failure, Bilateral pneumothorax -Intubated -CCM consulted, patient recommendations -AM vent settings: AC TV 500/R 30/PEEP 14/100% FiO2 -ABG and CXR reviewed -Surgery consulted tfor chest tube -Bilateral chest tubes to wall suction placed by surgery -Serial ABG and CXR -VAP bundle -Continuous SPO2 monitoring GI: MO, malnutrition -pt is on trickle feeds->RN to advance slowly -Per RN pt had large BM -Reglan 5 mg every 6 -BR: Senokot -01/30 KUB reviewed : Acute kidney injury secondary to vasomotor nephropathy -Nephrology consulted, appreciate recommendations -Patient initiated on hemodialysis 01/27 -HD per nephrology -Strict intake and output -Avoid nephrotoxic medications-renally dose medications -trend BMP -Past 24 hours +506 Endo: NAD -SSI -Accu-Cheks every 6 -Avoid hypoglycemia ID: COVID-19 pneumonia, septic shock, bilateral pneumonia,? Mold in sputum -Infectious disease consulted, appreciate recommendations (signed off 01/31) -Contact/droplet isolation -Dexamethasone for 10 days -Actemra administered 01/26 -P.o. voriconazole given steroids and Actemra -Per infectious disease: Avoid ABLC given renal failure -Follow-up ID labs -Trend COVID-19 inflammatory markers -S/p ABX therapy for pneumonia -Monitor WBC and fever curve -Follow blood cultures Heme: Elevated D-dimer, leukocytosis -Anticoagulation with heparin drip -Trend CBC -Transfuse for hemoglobin less than 7 -Lower extremity Doppler ultrasound shows no evidence of DVT The high probability of a clinically significant, sudden or life threatening deterioration of the [multi] system(s) required my full and direct attention, intervention and personal management. The aggregate critical care time was [60] minutes. This time is in addition to time spent performing reported procedures but includes the following: [x] Data Review and interpretation [x] Patient assessment and monitoring of vital signs [x] Documentation [x] Medication orders and management Disposition Plan: icu Total Time Spent with Patient (Minutes): 60 History Interval history: This is a 55-year-old male with morbid obesity venous insufficiency, former smoker who presented to the emergency department on 01/22 for SOB x4 days prior to admission and patient was diagnosed with COVID-19 at OSH on 01/16 after the patient was discharged. Patient had worsening symptoms therefore he presented to [facility]. Patient had fever, chills, headache, cough, shortness of breath, body aches, loss of taste and smell. Upon arrival of EMS patient was saturating at 60% on room air and received albuterol, magnesium, Solu-Medrol. Patient remained hypoxic in spite of being on a nonrebreather and was started on a BiPAP in the emergency department. Patient was admitted to the hospitalist service with consults to ID, pulmonology and later nephrology and cardiology. Patient admitted for acute hypoxic respiratory failure, sepsis, multifocal pneumonia, PUI for COVID-19. 02/01: patient was started on trickle feeding yesterday, heparin was on hold for placement of chest tube by surgery. Today patient developed hydropneumothorax and chest tube was placed again by surgery at bedside. Patient tube feedings will be gradually increased to goal as tolerated. 01/31: Patient has subq air on exam, cxr shows possible apical pneumo and surgery consulted for possible chest tube placement. HD today 01/30: This morning patient is not on sedation and does not follow commands, per RN report patient does not have cough/gag. No acute events reported overnight. EEG ordered, KUB and NGT to LIS for high residuals. 01/29: Patient is in acute respiratory failure on continuous BiPAP With low saturations intermittently Patient has severe Covid pneumonia, elevated D-dimers on empiric full dose a nticoagulation Not a candidate for CTA chest as patient is unstable Patient is critically ill in severe distress Patient has low saturations even on continuous BiPAP May need intubation and mechanical ventilation Vital signs noted 01/28/2021 Patient intubated Sedated Same condition On pressors Poor prognosis 01/27/2021 Patient intubated Sedated On vent protocol 01/26/2021 Patient is intubated Patient is Covid positive 01/25/2021; patient for intubation and mechanical ventilation As patient is severely hypoxemic even on continuous BiPAP 01/24: Patient is severely hypoxemic requiring continuous BiPAP, with borderline O2 sats Pulmonary critical following, stat ABG If no improvement intubate as needed Patient is elevated D-dimers, in the setting of COVID-19 morbid obesity respiratory failure requiring continuous BiPAP We will treat empirically with full dose anticoagulation, check CTA chest and lower extremity venous Doppler to rule out PE and DVT. Patient is critically ill with poor prognosis Plan of care reviewed with the patient and his nurse 01/23: We will closely monitor the patient and adjust management as needed Follow khan PCR test, consult ID if needed Hospitalist Physical - Constitutional Vitals: Temp Pulse Resp BP Pulse Ox 101.5 F H 108 H 34 H 139/64 92 02/01/21 12:01 02/01/21 11:55 02/01/21 11:00 02/01/21 11:55 02/01/21 11:55 General appearance: Present: no acute distress, well-nourished, other (not responsive) - EENT Eyes: Absent: PERRL ENT: poor dentition - Neck Neck: Present: normal ROM - Respiratory Respiratory effort: normal Respiratory: bilateral: diminished - Cardiovascular Rhythm: regular Heart Sounds: Present: S1 & S2 - Extremities Extremities: no ischemia, pulses intact, pulses symmetrical Peripheral Pulses: within normal limits - Abdominal General gastrointestinal: soft, non-tender - Integumentary Integumentary: Present: warm, dry - Psychiatric Psychiatric: other (not interactive) - Neurologic Neurologic: other (not interactive) - Allied Health Allied health notes reviewed: nursing, social work HEART Score - HEART Score Age: 45-65 Risk factors: 1-2 risk factors Troponin: < normal limit - Critical Actions Critical Actions: 0-3 pts:0.9-1.7%risk of adverse cardiac event.Candidate for discharge Results - Labs CBC & Chem 7: 02/01/21 04:00 02/01/21 04:00 Labs: Laboratory Last Values WBC 31.3 K/mm3 (4.5-11.0) H 01/31/21 03:30 RBC 3.94 M/mm3 (3.65-5.03) 01/31/21 03:30 Hgb 11.6 gm/dl (11.8-15.2) L 02/01/21 04:00 Hct 34.6 % (35.5-45.6) L 02/01/21 04:00 MCV 88 fl (84-94) 01/31/21 03:30 MCH 29 pg (28-32) 01/31/21 03:30 MCHC 33 % (32-34) 01/31/21 03:30 RDW 14.7 % (13.2-15.2) 01/31/21 03:30 Plt Count 150 K/mm3 (140-440) 02/01/21 04:00 Lymph % (Auto) 4.4 % (13.4-35.0) L 01/23/21 05:29 Hunt % (Auto) 6.4 % (0.0-7.3) 01/23/21 05:29 Lymph # (Auto) 0.8 K/mm3 (1.2-5.4) L 01/23/21 05:29 Hunt # (Auto) 1.2 K/mm3 (0.0-0.8) H 01/23/21 05:29 Add Manual Diff Complete 01/22/21 11:06 Total Counted 100 01/22/21 11:06 Seg Neutrophils % 89.1 % (40.0-70.0) H 01/23/21 05:29 Seg Neuts % (Manual) 92.0 % (40.0-70.0) H 01/22/21 11:06 Band Neutrophils % 2.0 % 01/22/21 11:06 Lymphocytes % (Manual) 1.0 % (13.4-35.0) L 01/22/21 11:06 Monocytes % (Manual) 5.0 % (0.0-7.3) 01/22/21 11:06 Nucleated RBC % 1.0 % (0.0-0.9) H 01/22/21 11:06 Seg Neutrophils # 16.9 K/mm3 (1.8-7.7) H 01/23/21 05:29 Seg Neutrophils # Man 17.7 K/mm3 (1.8-7.7) H 01/22/21 11:06 Band Neutrophils # 0.4 K/mm3 01/22/21 11:06 Lymphocytes # (Manual) 0.2 K/mm3 (1.2-5.4) L 01/22/21 11:06 Abs React Lymphs (Man) 0.0 K/mm3 01/22/21 11:06 Monocytes # (Manual) 1.0 K/mm3 (0.0-0.8) H 01/22/21 11:06 Eosinophils # (Manual) 0.0 K/mm3 (0.0-0.4) 01/22/21 11:06 Basophils # (Manual) 0.0 K/mm3 (0.0-0.1) 01/22/21 11:06 Metamyelocytes # 0.0 K/mm3 01/22/21 11:06 Myelocytes # 0.0 K/mm3 01/22/21 11:06 Promyelocytes # 0.0 K/mm3 01/22/21 11:06 Blast Cells # 0.0 K/mm3 01/22/21 11:06 WBC Morphology Not Reportable 01/22/21 11:06 Hypersegmented Neuts Not Reportable 01/22/21 11:06 Hyposegmented Neuts Not Reportable 01/22/21 11:06 Hypogranular Neuts Not Reportable 01/22/21 11:06 Smudge Cells Not Reportable 01/22/21 11:06 Toxic Granulation Not Reportable 01/22/21 11:06 Toxic Vacuolation Not Reportable 01/22/21 11:06 Dohle Bodies Not Reportable 01/22/21 11:06 Pelger-Huet Anomaly Not Reportable 01/22/21 11:06 Rd Rods Not Reportable 01/22/21 11:06 Platelet Estimate Consistent w auto 01/22/21 11:06 Clumped Platelets Not Reportable 01/22/21 11:06 Plt Clumps, EDTA Not Reportable 01/22/21 11:06 Large Platelets Not Reportable 01/22/21 11:06 Giant Platelets Not Reportable 01/22/21 11:06 Platelet Satelliting Not Reportable 01/22/21 11:06 Plt Morphology Comment Not Reportable 01/22/21 11:06 RBC Morphology Normal 01/22/21 11:06 Dimorphic RBCs Not Reportable 01/22/21 11:06 Polychromasia Not Reportable 01/22/21 11:06 Hypochromasia Not Reportable 01/22/21 11:06 Poikilocytosis Not Reportable 01/22/21 11:06 Anisocytosis Not Reportable 01/22/21 11:06 Microcytosis Not Reportable 01/22/21 11:06 Macrocytosis Not Reportable 01/22/21 11:06 Spherocytes Not Reportable 01/22/21 11:06 Pappenheimer Bodies Not Reportable 01/22/21 11:06 Sickle Cells Not Reportable 01/22/21 11:06 Target Cells Not Reportable 01/22/21 11:06 Tear Drop Cells Not Reportable 01/22/21 11:06 Ovalocytes Not Reportable 01/22/21 11:06 Helmet Cells Not Reportable 01/22/21 11:06 [place] Bodies Not Reportable 01/22/21 11:06 [place] Rings Not Reportable 01/22/21 11:06 Claudia Cells Not Reportable 01/22/21 11:06 Bite Cells Not Reportable 01/22/21 11:06 Crenated Cell Not Reportable 01/22/21 11:06 Elliptocytes Not Reportable 01/22/21 11:06 Acanthocytes (Spur) Not Reportable 01/22/21 11:06 Rouleaux Not Reportable 01/22/21 11:06 Hemoglobin C Crystals Not Reportable 01/22/21 11:06 Schistocytes Not Reportable 01/22/21 11:06 Malaria parasites Not Reportable 01/22/21 11:06 Lloyd Bodies Not Reportable 01/22/21 11:06 Hem Pathologist Commnt No 01/22/21 11:06 PT 15.1 Sec. (12.2-14.9) H 02/01/21 09:15 INR 1.13 (0.87-1.13) 02/01/21 09:15 APTT 29.2 Sec. (24.2-36.6) 01/28/21 10:03 D-Dimer > 55134 ng/mlDDU (0-234) H 01/25/21 06:22 Heparin Anti-Xa Level 0.31 U.I./ml (0.3-0.7) 02/01/21 06:50 ABG pH 7.294 (7.320-7.450) L 02/01/21 03:10 POC ABG pCO2 50.8 mmHg (32.0-48.0) H 02/01/21 03:10 ABG pCO2 46.6 mm Hg 01/26/21 08:30 POC ABG pO2 77.2 mmHg (83-108) L 02/01/21 03:10 ABG pO2 124.5 mm Hg (80.0-90.0) H 01/26/21 08:30 POC ABG HCO3 24.1 02/01/21 03:10 ABG HCO3 21.7 mmol/L (20.0-26.0) 01/26/21 08:30 ABG O2 Saturation 94.0 (0-100) 02/01/21 03:10 ABG O2 Content 19.4 (0.0-44) 01/26/21 08:30 POC ABG Base Excess -2.8 02/01/21 03:10 ABG Base Excess -5.0 mmol/L (-2.0-3.0) L 01/26/21 08:30 ABG Hemoglobin 12.3 (12.0-17.5) 02/01/21 03:10 ABG Oxyhemoglobin 92.9 (94-98) L 02/01/21 03:10 ABG Carboxyhemoglobin 1.2 % (0.0-5.0) 01/26/21 08:30 ABG Methemoglobin 0.2 (0.0-1.5) 02/01/21 03:10 ABG Sodium 131.4 mmol/L (136.0-145.0) L 02/01/21 03:10 ABG Potassium 5.2 mmol/L (3.40-4.50) H 02/01/21 03:10 ABG Chloride 97.0 mmol/L (98-107) L 02/01/21 03:10 ABG Glucose 158 mg/dL (65-95) H 02/01/21 03:10 Oxyhemoglobin 96.2 % (95.0-99.0) 01/26/21 08:30 Carboxyhemoglobin 1.0 (0.5-1.5) 02/01/21 03:10 FiO2 100 % 01/26/21 08:30 FiO2 % 100.0 02/01/21 03:10 Sodium 136 mmol/L (137-145) L 02/01/21 04:00 Potassium 5.2 mmol/L (3.6-5.0) H 02/01/21 04:00 Chloride 93.6 mmol/L (98-107) L 02/01/21 04:00 Carbon Dioxide 26 mmol/L (22-30) 02/01/21 04:00 Anion Gap 22 mmol/L 02/01/21 04:00 BUN 78 mg/dL (9-20) H 02/01/21 04:00 Creatinine 5.7 mg/dL (0.8-1.3) H 02/01/21 04:00 Estimated GFR 10 ml/min 02/01/21 04:00 BUN/Creatinine Ratio 14 % 02/01/21 04:00 Glucose 152 mg/dL (75-100) H 02/01/21 04:00 POC Glucose 159 mg/dL (70-105) H 02/01/21 11:42 Hemoglobin A1c 6.2 % (4-6) H 01/22/21 11:06 Lactic Acid 4.20 mmol/L (0.7-2.0) H* 01/22/21 11:06 Calcium 7.1 mg/dL (8.4-10.2) L 02/01/21 04:00 Phosphorus 8.60 mg/dL (2.5-4.5) H 01/30/21 05:00 Magnesium 2.40 mg/dL (1.7-2.3) H 01/30/21 05:00 Ferritin 1921.0 ng/mL (30.0-300.0) H 01/26/21 07:39 Total Bilirubin 3.00 mg/dL (0.1-1.2) H 02/01/21 04:00 Direct Bilirubin 1.6 mg/dL (0-0.2) H 01/31/21 03:30 Indirect Bilirubin 0.0 mg/dL 01/31/21 03:30 AST 117 units/L (5-40) H 02/01/21 04:00 ALT 108 units/L (7-56) H 02/01/21 04:00 Alkaline Phosphatase 97 units/L (35-129) 02/01/21 04:00 Lactate Dehydrogenase 1559 units/L (91-180) H 01/26/21 07:32 Total Creatine Kinase 258 units/L (55-170) H 01/27/21 05:00 C-Reactive Protein 20.90 mg/dL (0.00-1.30) H 01/26/21 07:32 Serum Total Protein 7.2 g/dL (6.1-8.1) 01/27/21 11:55 Total Protein 5.6 g/dL (6.3-8.2) L 02/01/21 04:00 Albumin 2.7 g/dL (3.9-5) L 02/01/21 04:00 Albumin/Globulin Ratio 0.9 % 02/01/21 04:00 Pqtiz-6-Gsontduhf 0.7 g/dL (0.2-0.3) H 01/27/21 11:55 Povdw-2-Imncywaky 1.2 g/dL (0.5-0.9) H 01/27/21 11:55 Beta Globulins 0.7 g/dL (0.2-0.5) H 01/27/21 11:55 Gamma Globulins 1.6 g/dL (0.8-1.7) 01/27/21 11:55 Abnorm Protein Band 1 0.5 g/dL H 01/27/21 11:55 PEP Interpretation see below H 01/27/21 11:55 Triglycerides 369 mg/dL (2-149) H 01/28/21 04:00 Procalcitonin 2.11 ng/mL (<0.15) 01/25/21 06:22 TSH 0.013 mlU/mL (0.270-4.200) L 01/28/21 10:03 Thyroxine (T4) 3.3 ug/dL (4.0-12.0) L 01/30/21 15:35 Arterial Blood Glucose 158 mg/dL (65-95) H 02/01/21 03:10 Arterial Blood Ionized Calcium 3.9 mg/dL (4.6-5.3) L 02/01/21 03:10 Immunofix Electrophor see below H 01/27/21 11:55 ANURAG Screen Negative (Negative) 01/27/21 11:55 Complement C3 105 mg/dL (82-185) 01/27/21 11:55 Complement C4 17 mg/dL (15-53) 01/27/21 11:55 Coronavirus (PCR) Positive (Negative) A 01/23/21 09:00 Hepatitis A IgM Ab Non-reactive (NonReactive) 01/27/21 11:41 Hep Bs Antigen Nonreactive (Negative) 01/27/21 11:41 Hep B Core IgM Ab Non-reactive (NonReactive) 01/27/21 11:41 Hepatitis C Antibody Non-reactive (NonReactive) 01/27/21 11:41 Ramirez/IV: Voiding Method Incontinent Active Medications - Current Medications Current Medications: Generic Name Dose Route Start Last Admin Trade Name Freq PRN Reason Stop Dose Admin Acetaminophen 650 mg 01/22/21 23:03 Acetaminophen 325 Mg Tab PO Q4H PRN Pain MILD(1-3)/Fever >100.5/ANDERSEN Albumin Human 25 gm 01/27/21 09:35 Albumin Human 25% (25 Gm/100 Ml) Inj IV MELECIO PRN Hypotension Amiodarone HCl 200 mg 01/30/21 10:00 02/01/21 09:06 Amiodarone 200 Mg Tab PO 200 mg DAILY JACK Administration Lipase/Protease/Amylase 1 each 01/27/21 11:37 Lipase 10,500/Protease 25,000/Amylase 43,750 (Units) Dr Cap FEEDTUBE PRN PRN For Clogged Feeding Tube Dextrose 50 ml 01/29/21 12:24 Dextrose 50% In Water (25gm) 50 Ml Syringe IV Q30MIN PRN Hypoglycemia Protocol Famotidine 20 mg 01/27/21 10:00 02/01/21 09:07 Famotidine 20 Mg/2 Ml Inj IV 20 mg DAILY JACK Administration Fentanyl 50 mcg 01/25/21 11:32 01/28/21 06:10 Fentanyl 100 Mcg/2 Ml Inj IV 50 mcg Q10MIN PRN Administration ANALGESIA Heparin Sodium (Porcine) 5,000 unit 01/28/21 09:27 Heparin 10,000 Units/10 Ml Vial IV Q6H PRN Anti-Xa Assay < 0.1 units/ml Hydrophilic Ointment 1 applic 01/25/21 13:27 Lip Therapy Vaseline TP Q2HR PRN Dry Lips Fentanyl Citrate 2,000 mcg in 100 mls @ 6.357 mls/hr 01/25/21 12:00 01/30/21 05:21 Fentanyl Drip Premix IV 0 mcg/kg/hr TITR JACK 0 mls/hr Titration Protocol 1 MCG/KG/HR Propofol 1,000 mg in 100 mls @ 3.814 mls/hr 01/25/21 14:00 01/30/21 05:19 Diprivan 10 Mg/Ml IV 0 mcg/kg/min TITR JACK 0 mls/hr Titration Protocol 5 MCG/KG/MIN Norepinephrine 4 mg in 250 mls @ 7.5 mls/hr 01/25/21 17:04 01/31/21 09:05 Levophed Drip 4 Mg/Ns 250 Ml IV 2 mcg/min TITR JACK 7.5 mls/hr Titration Protocol 2 MCG/MIN Midazolam HCl 100 mg/ Sodium 100 mls @ 1 mls/hr 01/26/21 11:00 01/30/21 05:24 Chloride IV 0 mg/hr TITR JACK 0 mls/hr Titration Protocol 1 MG/HR Sodium Chloride 100 mls @ 999 mls/hr 01/27/21 09:35 Nacl 0.9% IV MELECIO PRN Hypotension Vasopressin 20 unit/ Sodium 101 mls @ 9.09 mls/hr 01/28/21 07:00 01/30/21 08:55 Chloride IV Infused TITR JACK Titration Protocol 0.03 UNITS/MIN Heparin Sodium/Sodium Chloride 25,000 unit in 500 mls @ 30 mls/hr 01/28/21 11:00 02/01/21 10:00 Heparin/ 0.45% Nacl-25,000 Unit/500 Ml IV 1,150 units/hr TITR JACK 23 mls/hr Administration Protocol 1,500 UNITS/HR Insulin Human Regular 0 units 01/29/21 13:00 02/01/21 11:46 Insulin Regular, Human 100 Units/1 Ml SUB-Q 1 units Q6HR JACK Administration Protocol Metoclopramide HCl 5 mg 01/30/21 12:00 02/01/21 06:40 Metoclopramide 10 Mg/2 Ml Inj IV 5 mg Q6HR JACK Administration Midazolam HCl 2 mg 01/25/21 16:13 Midazolam 2 Mg/2 Ml Inj IV Q10MIN PRN Sedation Multi-Ingred Cream/Lotion/Oil/Oint 1 applic 01/25/21 13:27 Mineral Oil/Petrolatum, White Ophth Oint 3.5 Gm OU Q4HR PRN Dry Eye(s) Ondansetron HCl 4 mg 01/22/21 23:03 Ondansetron 4 Mg/2 Ml Inj IV Q8H PRN Nausea And Vomiting Senna/Docusate Sodium 1 tab 01/25/21 22:00 02/01/21 09:06 Sennosides/Docusate Sodium 8.6/50 Mg Tab FEEDTUBE 1 tab BID JACK Administration Simple Syrup 15 ml 01/27/21 11:37 Simple Syrup 15 Ml FEEDTUBE PRN PRN Hypoglycemia Simple Syrup 30 ml 01/27/21 11:37 Simple Syrup 15 Ml FEEDTUBE PRN PRN Hypoglycemia Sodium Bicarbonate 325 mg 01/27/21 11:37 Sodium Bicarbonate 325 Mg Tab FEEDTUBE PRN PRN For Clogged Feeding Tube Sodium Chloride 10 ml 01/22/21 23:45 02/01/21 09:07 Sodium Chloride 0.9% 10 Ml Flush Syringe IV 10 ml BID JACK Administration Sodium Chloride 10 ml 01/22/21 23:03 Sodium Chloride 0.9% 10 Ml Flush Syringe IV PRN PRN LINE FLUSH Voriconazole 300 mg 01/29/21 11:00 02/01/21 09:06 Voriconazole 200 Mg Tab PO 300 mg Q12HR JACK Administration Nutrition/Malnutrition Assess - Dietary Evaluation Nutrition/Malnutrition Findings: Nutrition Notes Start: 01/24/21 13:25 Freq: Status: Active Protocol: Document 01/31/21 11:11 (Rec: 01/31/21 11:13 [email or web address]) Nutrition Notes Initial or Follow up Brief Note Current Diagnosis Sepsis,Respiratory Failure, Malnutrition Other Pertinent Diagnosis covid-19, pneumonia Current Diet Nepro 1.8 at 30 ml/hr Labs/Tests K 5.3 Subjective/Other Information Per RN, TF was running however , pt with high gastric residuals again. Pt to get reglan at noon. RN to reassess and restart TF as able. Unable to change TF due to high K. Nutrition Intervention Follow-Up By: 02/02/21 Additional Comments F/U: TF restart, tolerance and renal labs <STAR CHRISTY - Last Filed: 02/02/21 08:04> Assessment and Plan Assessment and plan: I saw and evaluated the patient. Discussed with the nurse practitioner and agree with their findings and plan as documented in this note. Hospitalist Physical - Constitutional Vitals: Temp Pulse Resp BP Pulse Ox 98.3 F 88 34 H 121/61 88 02/02/21 07:00 02/02/21 07:30 02/02/21 07:30 02/02/21 07:30 02/02/21 07:30 Results - Labs CBC & Chem 7: 02/02/21 Unknown 02/02/21 Unknown Labs: Laboratory Last Values WBC 39.4 K/mm3 (4.5-11.0) H 02/02/21 Unknown RBC 3.68 M/mm3 (3.65-5.03) 02/02/21 Unknown Hgb 10.7 gm/dl (11.8-15.2) L 02/02/21 Unknown Hct 32.3 % (35.5-45.6) L 02/02/21 Unknown MCV 88 fl (84-94) 02/02/21 Unknown MCH 29 pg (28-32) 02/02/21 Unknown MCHC 33 % (32-34) 02/02/21 Unknown RDW 14.5 % (13.2-15.2) 02/02/21 Unknown Plt Count 151 K/mm3 (140-440) 02/02/21 Unknown Lymph % (Auto) 4.4 % (13.4-35.0) L 01/23/21 05:29 Hunt % (Auto) 6.4 % (0.0-7.3) 01/23/21 05:29 Lymph # (Auto) 0.8 K/mm3 (1.2-5.4) L 01/23/21 05:29 Hunt # (Auto) 1.2 K/mm3 (0.0-0.8) H 01/23/21 05:29 Add Manual Diff Complete 01/22/21 11:06 Total Counted 100 01/22/21 11:06 Seg Neutrophils % 89.1 % (40.0-70.0) H 01/23/21 05:29 Seg Neuts % (Manual) 92.0 % (40.0-70.0) H 01/22/21 11:06 Band Neutrophils % 2.0 % 01/22/21 11:06 Lymphocytes % (Manual) 1.0 % (13.4-35.0) L 01/22/21 11:06 Monocytes % (Manual) 5.0 % (0.0-7.3) 01/22/21 11:06 Nucleated RBC % 1.0 % (0.0-0.9) H 01/22/21 11:06 Seg Neutrophils # 16.9 K/mm3 (1.8-7.7) H 01/23/21 05:29 Seg Neutrophils # Man 17.7 K/mm3 (1.8-7.7) H 01/22/21 11:06 Band Neutrophils # 0.4 K/mm3 01/22/21 11:06 Lymphocytes # (Manual) 0.2 K/mm3 (1.2-5.4) L 01/22/21 11:06 Abs React Lymphs (Man) 0.0 K/mm3 01/22/21 11:06 Monocytes # (Manual) 1.0 K/mm3 (0.0-0.8) H 01/22/21 11:06 Eosinophils # (Manual) 0.0 K/mm3 (0.0-0.4) 01/22/21 11:06 Basophils # (Manual) 0.0 K/mm3 (0.0-0.1) 01/22/21 11:06 Metamyelocytes # 0.0 K/mm3 01/22/21 11:06 Myelocytes # 0.0 K/mm3 01/22/21 11:06 Promyelocytes # 0.0 K/mm3 01/22/21 11:06 Blast Cells # 0.0 K/mm3 01/22/21 11:06 WBC Morphology Not Reportable 01/22/21 11:06 Hypersegmented Neuts Not Reportable 01/22/21 11:06 Hyposegmented Neuts Not Reportable 01/22/21 11:06 Hypogranular Neuts Not Reportable 01/22/21 11:06 Smudge Cells Not Reportable 01/22/21 11:06 Toxic Granulation Not Reportable 01/22/21 11:06 Toxic Vacuolation Not Reportable 01/22/21 11:06 Dohle Bodies Not Reportable 01/22/21 11:06 Pelger-Huet Anomaly Not Reportable 01/22/21 11:06 Rd Rods Not Reportable 01/22/21 11:06 Platelet Estimate Consistent w auto 01/22/21 11:06 Clumped Platelets Not Reportable 01/22/21 11:06 Plt Clumps, EDTA Not Reportable 01/22/21 11:06 Large Platelets Not Reportable 01/22/21 11:06 Giant Platelets Not Reportable 01/22/21 11:06 Platelet Satelliting Not Reportable 01/22/21 11:06 Plt Morphology Comment Not Reportable 01/22/21 11:06 RBC Morphology Normal 01/22/21 11:06 Dimorphic RBCs Not Reportable 01/22/21 11:06 Polychromasia Not Reportable 01/22/21 11:06 Hypochromasia Not Reportable 01/22/21 11:06 Poikilocytosis Not Reportable 01/22/21 11:06 Anisocytosis Not Reportable 01/22/21 11:06 Microcytosis Not Reportable 01/22/21 11:06 Macrocytosis Not Reportable 01/22/21 11:06 Spherocytes Not Reportable 01/22/21 11:06 Pappenheimer Bodies Not Reportable 01/22/21 11:06 Sickle Cells Not Reportable 01/22/21 11:06 Target Cells Not Reportable 01/22/21 11:06 Tear Drop Cells Not Reportable 01/22/21 11:06 Ovalocytes Not Reportable 01/22/21 11:06 Helmet Cells Not Reportable 01/22/21 11:06 [place] Bodies Not Reportable 01/22/21 11:06 [place] Rings Not Reportable 01/22/21 11:06 [place] Cells Not Reportable 01/22/21 11:06 Bite Cells Not Reportable 01/22/21 11:06 Crenated Cell Not Reportable 01/22/21 11:06 Elliptocytes Not Reportable 01/22/21 11:06 Acanthocytes (Spur) Not Reportable 01/22/21 11:06 Rouleaux Not Reportable 01/22/21 11:06 Hemoglobin C Crystals Not Reportable 01/22/21 11:06 Schistocytes Not Reportable 01/22/21 11:06 Malaria parasites Not Reportable 01/22/21 11:06 [place] Bodies Not Reportable 01/22/21 11:06 Hem Pathologist Commnt No 01/22/21 11:06 PT 15.1 Sec. (12.2-14.9) H 02/02/21 Unknown INR 1.13 (0.87-1.13) 02/02/21 Unknown APTT 29.2 Sec. (24.2-36.6) 01/28/21 10:03 D-Dimer > 36772 ng/mlDDU (0-234) H 01/25/21 06:22 Heparin Anti-Xa Level 0.35 U.I./ml (0.3-0.7) 02/01/21 16:45 ABG pH 7.208 (7.320-7.450) L 02/02/21 02:58 POC ABG pCO2 58.3 mmHg (32.0-48.0) H 02/02/21 02:58 ABG pCO2 46.6 mm Hg 01/26/21 08:30 POC ABG pO2 91.1 mmHg (83-108) 02/02/21 02:58 ABG pO2 124.5 mm Hg (80.0-90.0) H 01/26/21 08:30 POC ABG HCO3 22.7 02/02/21 02:58 ABG HCO3 21.7 mmol/L (20.0-26.0) 01/26/21 08:30 ABG O2 Saturation 95.8 (0-100) 02/02/21 02:58 ABG O2 Content 19.4 (0.0-44) 01/26/21 08:30 POC ABG Base Excess -5.7 02/02/21 02:58 ABG Base Excess -5.0 mmol/L (-2.0-3.0) L 01/26/21 08:30 ABG Hemoglobin 11.6 (12.0-17.5) L 02/02/21 02:58 ABG Oxyhemoglobin 94.6 (94-98) 02/02/21 02:58 ABG Carboxyhemoglobin 1.2 % (0.0-5.0) 01/26/21 08:30 ABG Methemoglobin 0.1 (0.0-1.5) 02/02/21 02:58 ABG Sodium 131.4 mmol/L (136.0-145.0) L 02/02/21 02:58 ABG Potassium 5.6 mmol/L (3.40-4.50) H 02/02/21 02:58 ABG Chloride 97.0 mmol/L (98-107) L 02/02/21 02:58 ABG Glucose 155 mg/dL (65-95) H 02/02/21 02:58 Oxyhemoglobin 96.2 % (95.0-99.0) 01/26/21 08:30 Carboxyhemoglobin 1.2 (0.5-1.5) 02/02/21 02:58 FiO2 100 % 01/26/21 08:30 FiO2 % 100.0 02/02/21 02:58 Sodium 137 mmol/L (137-145) 02/02/21 Unknown Potassium 5.9 mmol/L (3.6-5.0) H 02/02/21 Unknown Chloride 95.0 mmol/L (98-107) L 02/02/21 Unknown Carbon Dioxide 24 mmol/L (22-30) 02/02/21 Unknown Anion Gap 24 mmol/L 02/02/21 Unknown BUN 118 mg/dL (9-20) H 02/02/21 Unknown Creatinine 7.2 mg/dL (0.8-1.3) H 02/02/21 Unknown Estimated GFR 8 ml/min 02/02/21 Unknown BUN/Creatinine Ratio 16 % 02/02/21 Unknown Glucose 152 mg/dL (75-100) H 02/02/21 Unknown POC Glucose 134 mg/dL (70-105) H 02/02/21 05:06 Hemoglobin A1c 6.2 % (4-6) H 01/22/21 11:06 Lactic Acid 4.20 mmol/L (0.7-2.0) H* 01/22/21 11:06 Calcium 7.1 mg/dL (8.4-10.2) L 02/02/21 Unknown Phosphorus 8.60 mg/dL (2.5-4.5) H 01/30/21 05:00 Magnesium 2.40 mg/dL (1.7-2.3) H 01/30/21 05:00 Ferritin 1921.0 ng/mL (30.0-300.0) H 01/26/21 07:39 Total Bilirubin 2.90 mg/dL (0.1-1.2) H 02/02/21 Unknown Direct Bilirubin 1.6 mg/dL (0-0.2) H 01/31/21 03:30 Indirect Bilirubin 0.0 mg/dL 01/31/21 03:30 AST 134 units/L (5-40) H 02/02/21 Unknown ALT 169 units/L (7-56) H 02/02/21 Unknown Alkaline Phosphatase 94 units/L (35-129) 02/02/21 Unknown Lactate Dehydrogenase 1559 units/L (91-180) H 01/26/21 07:32 Total Creatine Kinase 258 units/L (55-170) H 01/27/21 05:00 C-Reactive Protein 20.90 mg/dL (0.00-1.30) H 01/26/21 07:32 Serum Total Protein 7.2 g/dL (6.1-8.1) 01/27/21 11:55 Total Protein 5.0 g/dL (6.3-8.2) L 02/02/21 Unknown Albumin 2.5 g/dL (3.9-5) L 02/02/21 Unknown Albumin/Globulin Ratio 1.0 % 02/02/21 Unknown Sddfd-6-Qqazpsoxs 0.7 g/dL (0.2-0.3) H 01/27/21 11:55 Uclec-8-Wkovfnhlx 1.2 g/dL (0.5-0.9) H 01/27/21 11:55 Beta Globulins 0.7 g/dL (0.2-0.5) H 01/27/21 11:55 Gamma Globulins 1.6 g/dL (0.8-1.7) 01/27/21 11:55 Abnorm Protein Band 1 0.5 g/dL H 01/27/21 11:55 PEP Interpretation see below H 01/27/21 11:55 Triglycerides 369 mg/dL (2-149) H 01/28/21 04:00 Lipase 46 units/L (13-60) 02/01/21 04:00 Procalcitonin 2.11 ng/mL (<0.15) 01/25/21 06:22 TSH 0.013 mlU/mL (0.270-4.200) L 01/28/21 10:03 Thyroxine (T4) 3.3 ug/dL (4.0-12.0) L 01/30/21 15:35 Arterial Blood Glucose 155 mg/dL (65-95) H 02/02/21 02:58 Arterial Blood Ionized Calcium 3.9 mg/dL (4.6-5.3) L 02/02/21 02:58 Immunofix Electrophor see below H 01/27/21 11:55 ANURAG Screen Negative (Negative) 01/27/21 11:55 Complement C3 105 mg/dL (82-185) 01/27/21 11:55 Complement C4 17 mg/dL (15-53) 01/27/21 11:55 Coronavirus (PCR) Positive (Negative) A 01/23/21 09:00 Hepatitis A IgM Ab Non-reactive (NonReactive) 01/27/21 11:41 Hep Bs Antigen Nonreactive (Negative) 01/27/21 11:41 Hep B Core IgM Ab Non-reactive (NonReactive) 01/27/21 11:41 Hepatitis C Antibody Non-reactive (NonReactive) 01/27/21 11:41 Ramirez/IV: Voiding Method Incontinent Active Medications - Current Medications Current Medications: Generic Name Dose Route Start Last Admin Trade Name Freq PRN Reason Stop Dose Admin Acetaminophen 650 mg 01/22/21 23:03 Acetaminophen 325 Mg Tab PO Q4H PRN Pain MILD(1-3)/Fever >100.5/ANDERSEN Albumin Human 25 gm 01/27/21 09:35 Albumin Human 25% (25 Gm/100 Ml) Inj IV MELECIO PRN Hypotension Amiodarone HCl 200 mg 01/30/21 10:00 02/01/21 09:06 Amiodarone 200 Mg Tab PO 200 mg DAILY JACK Administration Lipase/Protease/Amylase 1 each 01/27/21 11:37 Lipase 10,500/Protease 25,000/Amylase 43,750 (Units) Dr Cap FEEDTUBE PRN PRN For Clogged Feeding Tube Dextrose 50 ml 01/29/21 12:24 Dextrose 50% In Water (25gm) 50 Ml Syringe IV Q30MIN PRN Hypoglycemia Protocol Famotidine 20 mg 01/27/21 10:00 02/01/21 09:07 Famotidine 20 Mg/2 Ml Inj IV 20 mg DAILY JACK Administration Fentanyl 50 mcg 01/25/21 11:32 01/28/21 06:10 Fentanyl 100 Mcg/2 Ml Inj IV 50 mcg Q10MIN PRN Administration ANALGESIA Heparin Sodium (Porcine) 5,000 unit 01/28/21 09:27 Heparin 10,000 Units/10 Ml Vial IV Q6H PRN Anti-Xa Assay < 0.1 units/ml Hydrophilic Ointment 1 applic 01/25/21 13:27 Lip Therapy Vaseline TP Q2HR PRN Dry Lips Fentanyl Citrate 2,000 mcg in 100 mls @ 6.357 mls/hr 01/25/21 12:00 01/30/21 05:21 Fentanyl Drip Premix IV 0 mcg/kg/hr TITR JACK 0 mls/hr Titration Protocol 1 MCG/KG/HR Propofol 1,000 mg in 100 mls @ 3.814 mls/hr 01/25/21 14:00 01/30/21 05:19 Diprivan 10 Mg/Ml IV 0 mcg/kg/min TITR JACK 0 mls/hr Titration Protocol 5 MCG/KG/MIN Norepinephrine 4 mg in 250 mls @ 7.5 mls/hr 01/25/21 17:04 01/31/21 09:05 Levophed Drip 4 Mg/Ns 250 Ml IV 2 mcg/min TITR JACK 7.5 mls/hr Titration Protocol 2 MCG/MIN Midazolam HCl 100 mg/ Sodium 100 mls @ 1 mls/hr 01/26/21 11:00 01/30/21 05:24 Chloride IV 0 mg/hr TITR JACK 0 mls/hr Titration Protocol 1 MG/HR Sodium Chloride 100 mls @ 999 mls/hr 01/27/21 09:35 Nacl 0.9% IV MELECIO PRN Hypotension Vasopressin 20 unit/ Sodium 101 mls @ 9.09 mls/hr 01/28/21 07:00 01/30/21 08:55 Chloride IV Infused TITR JACK Titration Protocol 0.03 UNITS/MIN Heparin Sodium/Sodium Chloride 25,000 unit in 500 mls @ 30 mls/hr 01/28/21 11:00 02/01/21 10:00 Heparin/ 0.45% Nacl-25,000 Unit/500 Ml IV 1,150 units/hr TITR JACK 23 mls/hr Administration Protocol 1,500 UNITS/HR Insulin Human Regular 0 units 01/29/21 13:00 02/02/21 05:19 Insulin Regular, Human 100 Units/1 Ml SUB-Q Not Given Q6HR JACK Protocol Metoclopramide HCl 5 mg 01/30/21 12:00 02/02/21 00:08 Metoclopramide 10 Mg/2 Ml Inj IV 5 mg Q6HR JACK Administration Midazolam HCl 2 mg 01/25/21 16:13 Midazolam 2 Mg/2 Ml Inj IV Q10MIN PRN Sedation Multi-Ingred Cream/Lotion/Oil/Oint 1 applic 01/25/21 13:27 Mineral Oil/Petrolatum, White Ophth Oint 3.5 Gm OU Q4HR PRN Dry Eye(s) Ondansetron HCl 4 mg 01/22/21 23:03 Ondansetron 4 Mg/2 Ml Inj IV Q8H PRN Nausea And Vomiting Senna/Docusate Sodium 1 tab 01/25/21 22:00 02/01/21 21:49 Sennosides/Docusate Sodium 8.6/50 Mg Tab FEEDTUBE 1 tab BID JACK Administration Simple Syrup 15 ml 01/27/21 11:37 Simple Syrup 15 Ml FEEDTUBE PRN PRN Hypoglycemia Simple Syrup 30 ml 01/27/21 11:37 Simple Syrup 15 Ml FEEDTUBE PRN PRN Hypoglycemia Sodium Bicarbonate 325 mg 01/27/21 11:37 Sodium Bicarbonate 325 Mg Tab FEEDTUBE PRN PRN For Clogged Feeding Tube Sodium Chloride 10 ml 01/22/21 23:45 02/01/21 21:49 Sodium Chloride 0.9% 10 Ml Flush Syringe IV 10 ml BID JACK Administration Sodium Chloride 10 ml 01/22/21 23:03 Sodium Chloride 0.9% 10 Ml Flush Syringe IV PRN PRN LINE FLUSH Voriconazole 300 mg 01/29/21 11:00 02/01/21 21:49 Voriconazole 200 Mg Tab PO 300 mg Q12HR JACK Administration Nutrition/Malnutrition Assess - Dietary Evaluation Nutrition/Malnutrition Findings: Nutrition Notes Start: 01/24/21 13:25 Freq: Status: Active Protocol: Document 01/31/21 11:11 (Rec: 01/31/21 11:13 [id number]) Nutrition Notes Initial or Follow up Brief Note Current Diagnosis Sepsis,Respiratory Failure, Malnutrition Other Pertinent Diagnosis covid-19, pneumonia Current Diet Nepro 1.8 at 30 ml/hr Labs/Tests K 5.3 Subjective/Other Information Per RN, TF was running however , pt with high gastric residuals again. Pt to get reglan at noon. RN to reassess and restart TF as able. Unable to change TF due to high K. Nutrition Intervention Follow-Up By: 02/02/21 Additional Comments F/U: TF restart, tolerance and renal labs
--- NOTE | 2021-02-01 13:16 | Progress Note ---
Assessment and Plan Acute hypoxemic respiratory failure COVID-19 infection Multifocal pneumonia Hypernatremia Sepsis Morbid obesity with BMI of 40.0-44.9, adult - surgery to place left chest tube - peep at 14% - continue to wean supplemental oxygen for target O2 sat's > 92% acutely - continue Reglan to 10 mg IV q8h - continue HD/UF per nephrology prescription for toxin and volume clearance - wean Vasopressors for target MAP > 65 mmHg - continue care as below otherwise; - Daily SAT and SBT assessment as tolerated - VAP bundle addressed - continue lung protective strategies - continue bronchodilators with pulmonary hygiene per RT - wean per pulmonary driven protocols otherwise - avoid nephrotoxins, renally dose all medications - continue to avoid benzodiazepine's, reduce the possibility of delirium - complete AB's per ID rec's - prn analgesia per CPOT score - Maintenance of sleep-wake cycle, avoid delirium - enteral nutritional support at goal rate as tolerated - G.I. & VTE prophylaxis - PT/OT/ROM exercises - continue mobility protocols for pressure ulcer prophylaxis - Monitor hemodynamics closely - continue other care per attending / other consultants - discharge planning ongoing concurrently COVID SPECIFIC INTERVENTIONS - Remdesivir as per ID/Pulmonary developed protocols (receiving) - continue systemic steroids for severe COVID-19 infection (Dexamethasone) - follow repeat COVID tests results - zinc and vitamin C supplementation - Monitor inflammatory markers per facility protocol - ferritin, Ddimer, CRP - therapeutic anticoagulation per system Protocol based on d-dimer and clinical considerations (VTE prophylaxis doses now) - Continue contact and airborne isolation .... Re-evaluate in am & prn CONDITION: CRITICAL PROGNOSIS: GUARDED CODE STATUS: FULL CODE The high probability of a clinically significant, sudden or life-threatening deterioration of the [respiratory, cardiovascular & neurologic] system(s) required my full and direct attention, intervention and personal management. The aggregate critical care time was [32] minutes without overlap. Time includes spent on; [x] Data Review and interpretation [x] Patient assessment and monitoring of vital signs [x] Documentation [x] Medication orders and management Subjective Date of service: 02/01/21 Principal diagnosis: Ac hypoxemic resp failure; COVID-19; Pneumonia; Sepsis; Morbid obesity Interval history: Patient is seen today for: Acute hypoxemic respiratory failure; COVID- 19infection; Multifocal pneumonia; Hypernatremia; Sepsis; Morbid obesity Seen and examined at bedside; 24hour events reviewed; nursing and respiratory care staff consulted; no adverse overnight events reported to me; resting in bed; remains on MVS; minimal room to wean; FiO2 at 100% with peep at 12 cm H2O; tolerating HD/UF; no gross bleeding; to resume tube feeds; + enlarging left pneumothorax Objective Vital Signs - 12hr 02/01/21 02/01/21 02/01/21 01:30 01:45 02:00 Temperature Pulse Rate 99 H 98 H 98 H Pulse Rate [ From Monitor] Respiratory 26 H 26 H 25 H Rate Blood Pressure 113/56 123/53 115/53 O2 Sat by Pulse 94 91 92 Oximetry 02/01/21 02/01/21 02/01/21 02:15 02:30 02:45 Temperature Pulse Rate 97 H 97 H 98 H Pulse Rate [ From Monitor] Respiratory 26 H 27 H 28 H Rate Blood Pressure 131/66 131/61 130/56 O2 Sat by Pulse 92 91 90 Oximetry 02/01/21 02/01/21 02/01/21 03:00 03:08 03:15 Temperature 97.5 F L Pulse Rate 98 H 100 H Pulse Rate [ From Monitor] Respiratory 18 27 H Rate Blood Pressure 121/55 123/63 O2 Sat by Pulse 90 89 Oximetry 02/01/21 02/01/21 02/01/21 03:30 03:45 04:00 Temperature Pulse Rate 101 H 102 H 104 H Pulse Rate [ 103 H From Monitor] Respiratory 28 H 26 H 29 H Rate Blood Pressure 122/61 119/59 127/52 O2 Sat by Pulse 87 90 89 Oximetry 02/01/21 02/01/21 02/01/21 04:15 04:30 04:45 Temperature Pulse Rate 105 H 106 H 105 H Pulse Rate [ From Monitor] Respiratory 28 H 27 H 28 H Rate Blood Pressure 132/64 139/60 138/62 O2 Sat by Pulse 89 89 88 Oximetry 02/01/21 02/01/21 02/01/21 05:00 05:15 05:30 Temperature Pulse Rate 106 H 108 H 109 H Pulse Rate [ From Monitor] Respiratory 28 H 29 H 30 H Rate Blood Pressure 129/66 147/58 144/60 O2 Sat by Pulse 91 90 89 Oximetry 02/01/21 02/01/21 02/01/21 05:45 06:00 06:15 Temperature Pulse Rate 110 H 110 H 111 H Pulse Rate [ From Monitor] Respiratory 23 31 H 31 H Rate Blood Pressure 147/64 150/63 148/61 O2 Sat by Pulse 88 88 89 Oximetry 02/01/21 02/01/21 02/01/21 06:30 06:45 07:00 Temperature Pulse Rate 112 H 114 H 114 H Pulse Rate [ From Monitor] Respiratory 31 H 31 H 32 H Rate Blood Pressure 147/62 148/62 151/64 O2 Sat by Pulse 88 89 88 Oximetry 02/01/21 02/01/21 02/01/21 07:15 07:30 07:34 Temperature Pulse Rate 114 H 116 H 108 H Pulse Rate [ From Monitor] Respiratory 33 H 32 H Rate Blood Pressure 149/64 148/64 147/58 O2 Sat by Pulse 89 90 90 Oximetry 02/01/21 02/01/21 02/01/21 07:45 08:00 08:15 Temperature 99.5 F Pulse Rate 116 H 116 H 117 H Pulse Rate [ 115 H From Monitor] Respiratory 32 H 32 H 33 H Rate Blood Pressure 146/64 148/66 144/63 O2 Sat by Pulse 89 94 89 Oximetry 02/01/21 02/01/21 02/01/21 08:30 08:45 09:00 Temperature 99.7 F H Pulse Rate 117 H 117 H 115 H Pulse Rate [ From Monitor] Respiratory 33 H 34 H 33 H Rate Blood Pressure 148/66 145/63 145/63 O2 Sat by Pulse 90 91 89 Oximetry 02/01/21 02/01/21 02/01/21 09:15 09:30 09:45 Temperature Pulse Rate 114 H 118 H 113 H Pulse Rate [ From Monitor] Respiratory 33 H 35 H 33 H Rate Blood Pressure 154/63 160/82 145/61 O2 Sat by Pulse 89 90 92 Oximetry 02/01/21 02/01/21 02/01/21 10:00 10:15 10:30 Temperature Pulse Rate 111 H 110 H 108 H Pulse Rate [ From Monitor] Respiratory 31 H 31 H 32 H Rate Blood Pressure 146/61 128/65 126/57 O2 Sat by Pulse 89 Oximetry 02/01/21 02/01/21 02/01/21 10:45 11:00 11:43 Temperature 101 F H Pulse Rate 107 H 108 H Pulse Rate [ From Monitor] Respiratory 31 H 34 H Rate Blood Pressure 117/63 139/64 O2 Sat by Pulse 92 Oximetry 02/01/21 02/01/21 11:55 12:01 Temperature 101.5 F H Pulse Rate 108 H Pulse Rate [ From Monitor] Respiratory Rate Blood Pressure 139/64 O2 Sat by Pulse 92 Oximetry Constitutional: appears uncomfortable, other (middle aged obese male with mildly increased respiratory effort at rest on MVS) Eyes: non-icteric ENT: oropharynx moist, other (ETT 24 cm BRE) Neck: supple, no lymphadenopathy, no JVD, other (large circumference) Effort: mildly labored Ascultation: Bilateral: diminished breath sounds, rhonchi, other (SQ emphysema to upper chest wall) Percussion: Bilateral: not dull Cardiovascular: regular rate and rhythm Gastrointestinal: normoactive bowel sounds, soft, non-tender, non-distended (protuberant) Integumentary: normal Extremities: no cyanosis, no edema, pink and warm, pulses normal Neurologic: normal mental status, pupils equal and round, unable to assess (sedated) Psychiatric: other (unable top assess re: AMS) CBC and BMP: 02/02/21 Unknown 02/02/21 Unknown ABG, PT/INR, D-dimer: ABG ABG pH 7.294 (7.320-7.450) L 02/01/21 03:10 POC ABG pCO2 50.8 mmHg (32.0-48.0) H 02/01/21 03:10 ABG pCO2 46.6 mm Hg 01/26/21 08:30 POC ABG pO2 77.2 mmHg (83-108) L 02/01/21 03:10 ABG pO2 124.5 mm Hg (80.0-90.0) H 01/26/21 08:30 POC ABG HCO3 24.1 02/01/21 03:10 ABG O2 Saturation 94.0 (0-100) 02/01/21 03:10 PT/INR, D-dimer PT 15.1 Sec. (12.2-14.9) H 02/01/21 09:15 INR 1.13 (0.87-1.13) 02/01/21 09:15 D-Dimer > 07583 ng/mlDDU (0-234) H 01/25/21 06:22 Abnormal lab findings: Abnormal Labs 01/22/21 01/22/21 01/22/21 11:06 11:06 11:06 WBC RBC Hgb Hct Plt Count Lymph % (Auto) Lymph # (Auto) [place] # (Auto) Seg Neutrophils % Seg Neuts % (Manual) Lymphocytes % (Manual) Nucleated RBC % Seg Neutrophils # Seg Neutrophils # Man Lymphocytes # (Manual) Monocytes # (Manual) PT INR D-Dimer 2625.11 H Heparin Anti-Xa Level ABG pH POC ABG pCO2 POC ABG pO2 ABG pO2 ABG Base Excess ABG Oxyhemoglobin ABG Sodium ABG Potassium ABG Chloride ABG Glucose Carboxyhemoglobin Sodium Potassium Chloride Carbon Dioxide BUN Creatinine Glucose 130 H POC Glucose Hemoglobin A1c Lactic Acid Calcium Phosphorus Magnesium Ferritin 557.5 H Total Bilirubin Direct Bilirubin AST ALT Alkaline Phosphatase Lactate Dehydrogenase 799 H Total Creatine Kinase C-Reactive Protein 3.30 H Total Protein Albumin Xowji-0-Fnurbndzc Drret-4-Llkuavnpj Beta Globulins Abnorm Protein Band 1 PEP Interpretation Triglycerides TSH Thyroxine (T4) Arterial Blood Glucose Arterial Blood Ionized Calcium Immunofix Electrophor Coronavirus (PCR) 01/22/21 01/22/21 01/22/21 11:06 11:06 11:06 WBC 19.2 H RBC 5.63 H Hgb 15.8 H Hct 49.0 H Plt Count Lymph % (Auto) Lymph # (Auto) [place] # (Auto) Seg Neutrophils % Seg Neuts % (Manual) 92.0 H Lymphocytes % (Manual) 1.0 L Nucleated RBC % 1.0 H Seg Neutrophils # Seg Neutrophils # Man 17.7 H Lymphocytes # (Manual) 0.2 L Monocytes # (Manual) 1.0 H PT INR D-Dimer Heparin Anti-Xa Level ABG pH POC ABG pCO2 POC ABG pO2 ABG pO2 ABG Base Excess ABG Oxyhemoglobin ABG Sodium ABG Potassium ABG Chloride ABG Glucose Carboxyhemoglobin Sodium Potassium 3.3 L Chloride Carbon Dioxide 20 L BUN 32 H Creatinine Glucose 130 H POC Glucose Hemoglobin A1c Lactic Acid 4.20 H* Calcium Phosphorus Magnesium Ferritin Total Bilirubin Direct Bilirubin AST ALT Alkaline Phosphatase Lactate Dehydrogenase Total Creatine Kinase C-Reactive Protein Total Protein Albumin 2.9 L Vkloc-4-Sbyralnov Aqpgv-4-Vyqhltnwv Beta Globulins Abnorm Protein Band 1 PEP Interpretation Triglycerides TSH Thyroxine (T4) Arterial Blood Glucose Arterial Blood Ionized Calcium Immunofix Electrophor Coronavirus (PCR) 01/22/21 01/22/21 01/23/21 11:06 12:03 05:29 WBC 19.0 H RBC 5.24 H Hgb 15.3 H Hct 46.0 H Plt Count Lymph % (Auto) 4.4 L Lymph # (Auto) 0.8 L [place] # (Auto) 1.2 H Seg Neutrophils % 89.1 H Seg Neuts % (Manual) Lymphocytes % (Manual) Nucleated RBC % Seg Neutrophils # 16.9 H Seg Neutrophils # Man Lymphocytes # (Manual) Monocytes # (Manual) PT INR D-Dimer Heparin Anti-Xa Level ABG pH POC ABG pCO2 30.7 L POC ABG pO2 61.4 L ABG pO2 ABG Base Excess ABG Oxyhemoglobin 90.5 L ABG Sodium ABG Potassium ABG Chloride ABG Glucose Carboxyhemoglobin 1.7 H Sodium Potassium Chloride Carbon Dioxide BUN Creatinine Glucose POC Glucose Hemoglobin A1c 6.2 H Lactic Acid Calcium Phosphorus Magnesium Ferritin Total Bilirubin Direct Bilirubin AST ALT Alkaline Phosphatase Lactate Dehydrogenase Total Creatine Kinase C-Reactive Protein Total Protein Albumin Tbbum-1-Qnaucfrwd Kocxz-4-Rbhvuztge Beta Globulins Abnorm Protein Band 1 PEP Interpretation Triglycerides TSH Thyroxine (T4) Arterial Blood Glucose Arterial Blood Ionized Calcium Immunofix Electrophor Coronavirus (PCR) 01/23/21 01/23/21 01/23/21 05:29 09:00 16:55 WBC RBC Hgb Hct Plt Count Lymph % (Auto) Lymph # (Auto) [place] # (Auto) Seg Neutrophils % Seg Neuts % (Manual) Lymphocytes % (Manual) Nucleated RBC % Seg Neutrophils # Seg Neutrophils # Man Lymphocytes # (Manual) Monocytes # (Manual) PT INR D-Dimer Heparin Anti-Xa Level ABG pH POC ABG pCO2 POC ABG pO2 ABG pO2 ABG Base Excess ABG Oxyhemoglobin ABG Sodium ABG Potassium ABG Chloride ABG Glucose Carboxyhemoglobin Sodium Potassium 3.5 L Chloride Carbon Dioxide BUN 29 H 27 H Creatinine Glucose 132 H 103 H POC Glucose Hemoglobin A1c Lactic Acid Calcium Phosphorus Magnesium Ferritin Total Bilirubin Direct Bilirubin AST ALT Alkaline Phosphatase Lactate Dehydrogenase Total Creatine Kinase C-Reactive Protein Total Protein Albumin 2.9 L 2.9 L Lmkam-4-Jpvmwvxqf Tmmog-8-Abkcrrcfb Beta Globulins Abnorm Protein Band 1 PEP Interpretation Triglycerides TSH Thyroxine (T4) Arterial Blood Glucose Arterial Blood Ionized Calcium Immunofix Electrophor Coronavirus (PCR) Positive A 01/24/21 01/24/21 01/24/21 05:50 20:20 20:20 WBC RBC Hgb Hct Plt Count Lymph % (Auto) Lymph # (Auto) [place] # (Auto) Seg Neutrophils % Seg Neuts % (Manual) Lymphocytes % (Manual) Nucleated RBC % Seg Neutrophils # Seg Neutrophils # Man Lymphocytes # (Manual) Monocytes # (Manual) PT INR D-Dimer Heparin Anti-Xa Level ABG pH POC ABG pCO2 POC ABG pO2 ABG pO2 ABG Base Excess ABG Oxyhemoglobin ABG Sodium ABG Potassium ABG Chloride ABG Glucose Carboxyhemoglobin Sodium 148 H Potassium 5.3 H D Chloride 109.3 H Carbon Dioxide BUN 26 H Creatinine 0.7 L Glucose 130 H POC Glucose Hemoglobin A1c Lactic Acid Calcium Phosphorus Magnesium Ferritin 1031.0 H Total Bilirubin Direct Bilirubin AST 45 H ALT Alkaline Phosphatase Lactate Dehydrogenase 1511 H Total Creatine Kinase C-Reactive Protein 12.00 H Total Protein Albumin 2.9 L Jbltl-0-Mzweuhuwf Dwhhs-1-Bkzwhhmvd Beta Globulins Abnorm Protein Band 1 PEP Interpretation Triglycerides TSH Thyroxine (T4) Arterial Blood Glucose Arterial Blood Ionized Calcium Immunofix Electrophor Coronavirus (PCR) 01/24/21 01/25/21 01/25/21 20:20 06:22 06:22 WBC RBC Hgb Hct Plt Count Lymph % (Auto) Lymph # (Auto) [place] # (Auto) Seg Neutrophils % Seg Neuts % (Manual) Lymphocytes % (Manual) Nucleated RBC % Seg Neutrophils # Seg Neutrophils # Man Lymphocytes # (Manual) Monocytes # (Manual) PT INR D-Dimer > 69310 H > 51715 H Heparin Anti-Xa Level ABG pH POC ABG pCO2 POC ABG pO2 ABG pO2 ABG Base Excess ABG Oxyhemoglobin ABG Sodium ABG Potassium ABG Chloride ABG Glucose Carboxyhemoglobin Sodium 153 H Potassium 3.4 L D Chloride 116.1 H Carbon Dioxide 21 L BUN 27 H Creatinine Glucose 133 H POC Glucose Hemoglobin A1c Lactic Acid Calcium Phosphorus Magnesium Ferritin Total Bilirubin 1.30 H Direct Bilirubin AST 50 H ALT Alkaline Phosphatase 159 H Lactate Dehydrogenase Total Creatine Kinase C-Reactive Protein Total Protein Albumin 2.9 L Hguru-9-Vozxonbzx [place]ac[place]-9-Tivtlmeim Beta Globulins Abnorm Protein Band 1 PEP Interpretation Triglycerides TSH Thyroxine (T4) Arterial Blood Glucose Arterial Blood Ionized Calcium Immunofix Electrophor Coronavirus (PCR) 08/19/21 08/19/21 08/19/21 06:22 09:35 11:25 WBC RBC Hgb Hct Plt Count Lymph % (Auto) Lymph # (Auto) [place] # (Auto) Seg Neutrophils % Seg Neuts % (Manual) Lymphocytes % (Manual) Nucleated RBC % Seg Neutrophils # Seg Neutrophils # Man Lymphocytes # (Manual) Monocytes # (Manual) PT INR D-Dimer Heparin Anti-Xa Level ABG pH 7.453 H 7.228 L POC ABG pCO2 60.0 H POC ABG pO2 44.9 L 111.7 H ABG pO2 ABG Base Excess ABG Oxyhemoglobin 81.4 L ABG Sodium 153.1 H 150.9 H ABG Potassium 3.3 L ABG Chloride 116.0 H 117.0 H ABG Glucose 151 H 155 H Carboxyhemoglobin Sodium Potassium Chloride Carbon Dioxide BUN Creatinine Glucose POC Glucose Hemoglobin A1c Lactic Acid Calcium Phosphorus Magnesium Ferritin Total Bilirubin Direct Bilirubin AST ALT Alkaline Phosphatase Lactate Dehydrogenase Total Creatine Kinase C-Reactive Protein 16.80 H Total Protein Albumin Evvec-2-Sqwihpkxy Pwadk-1-Cwzhntgua Beta Globulins Abnorm Protein Band 1 PEP Interpretation Triglycerides TSH Thyroxine (T4) Arterial Blood Glucose 151 H 155 H Arterial Blood Ionized Calcium Immunofix Electrophor Coronavirus (PCR) 01/25/21 01/26/21 01/26/21 21:00 07:32 07:39 WBC RBC Hgb Hct Plt Count Lymph % (Auto) Lymph # (Auto) [place] # (Auto) Seg Neutrophils % Seg Neuts % (Manual) Lymphocytes % (Manual) Nucleated RBC % Seg Neutrophils # Seg Neutrophils # Man Lymphocytes # (Manual) Monocytes # (Manual) PT INR D-Dimer Heparin Anti-Xa Level ABG pH POC ABG pCO2 POC ABG pO2 68.5 L ABG pO2 ABG Base Excess ABG Oxyhemoglobin 91.3 L ABG Sodium 151.9 H ABG Potassium ABG Chloride 117.0 H ABG Glucose 140 H Carboxyhemoglobin Sodium 151 H Potassium Chloride 116.7 H Carbon Dioxide 20 L BUN 59 H Creatinine 3.4 H D Glucose 121 H POC Glucose Hemoglobin A1c Lactic Acid Calcium Phosphorus Magnesium Ferritin 1921.0 H Total Bilirubin Direct Bilirubin AST 45 H ALT Alkaline Phosphatase 137 H Lactate Dehydrogenase 1559 H Total Creatine Kinase C-Reactive Protein 20.90 H Total Protein Albumin 2.3 L Sgbop-1-Tiglmjury [place]-9-Gxzwnqvwp Beta Globulins Abnorm Protein Band 1 PEP Interpretation Triglycerides TSH Thyroxine (T4) Arterial Blood Glucose 140 H Arterial Blood Ionized Calcium Immunofix Electrophor Coronavirus (PCR) 01/26/21 01/26/21 01/26/21 08:30 17:55 20:39 WBC RBC Hgb Hct Plt Count Lymph % (Auto) Lymph # (Auto) [place] # (Auto) Seg Neutrophils % Seg Neuts % (Manual) Lymphocytes % (Manual) Nucleated RBC % Seg Neutrophils # Seg Neutrophils # Man Lymphocytes # (Manual) Monocytes # (Manual) PT INR D-Dimer Heparin Anti-Xa Level ABG pH 7.287 L POC ABG pCO2 POC ABG pO2 ABG pO2 124.5 H ABG Base Excess -5.0 L ABG Oxyhemoglobin ABG Sodium ABG Potassium ABG Chloride ABG Glucose Carboxyhemoglobin Sodium 152 H Potassium 6.0 H D Chloride 117.2 H Carbon Dioxide 15 L BUN 80 H Creatinine 5.6 H D Glucose 156 H POC Glucose 141 H Hemoglobin A1c Lactic Acid Calcium 7.4 L Phosphorus Magnesium Ferritin Total Bilirubin Direct Bilirubin AST ALT Alkaline Phosphatase Lactate Dehydrogenase Total Creatine Kinase C-Reactive Protein Total Protein Albumin Awbge-0-Qujpncclm Obqst-4-Ldwihvmrk Beta Globulins Abnorm Protein Band 1 PEP Interpretation Triglycerides TSH Thyroxine (T4) Arterial Blood Glucose Arterial Blood Ionized Calcium Immunofix Electrophor Coronavirus (PCR) 01/26/21 01/27/21 01/27/21 23:14 02:55 05:00 WBC RBC Hgb Hct Plt Count Lymph % (Auto) Lymph # (Auto) [place] # (Auto) Seg Neutrophils % Seg Neuts % (Manual) Lymphocytes % (Manual) Nucleated RBC % Seg Neutrophils # Seg Neutrophils # Man Lymphocytes # (Manual) Monocytes # (Manual) PT INR D-Dimer Heparin Anti-Xa Level ABG pH 7.215 L POC ABG pCO2 48.9 H POC ABG pO2 143.3 H ABG pO2 ABG Base Excess ABG Oxyhemoglobin ABG Sodium 150.0 H ABG Potassium 5.0 H ABG Chloride 118.0 H ABG Glucose 180 H Carboxyhemoglobin Sodium 154 H Potassium 5.3 H Chloride 117.2 H Carbon Dioxide 19 L BUN 92 H Creatinine 6.4 H Glucose 175 H POC Glucose 148 H Hemoglobin A1c Lactic Acid Calcium 7.9 L Phosphorus Magnesium Ferritin Total Bilirubin Direct Bilirubin AST ALT Alkaline Phosphatase Lactate Dehydrogenase Total Creatine Kinase C-Reactive Protein Total Protein Albumin Bfjea-5-Crjwdrifs Ohqyi-7-Kplfdotmn Beta Globulins Abnorm Protein Band 1 PEP Interpretation Triglycerides TSH Thyroxine (T4) Arterial Blood Glucose 180 H Arterial Blood Ionized Calcium 4.5 L Immunofix Electrophor Coronavirus (PCR) 01/27/21 01/27/21 01/27/21 05:00 05:14 11:42 WBC RBC Hgb Hct Plt Count Lymph % (Auto) Lymph # (Auto) [place] # (Auto) Seg Neutrophils % Seg Neuts % (Manual) Lymphocytes % (Manual) Nucleated RBC % Seg Neutrophils # Seg Neutrophils # Man Lymphocytes # (Manual) Monocytes # (Manual) PT INR D-Dimer Heparin Anti-Xa Level ABG pH POC ABG pCO2 POC ABG pO2 ABG pO2 ABG Base Excess ABG Oxyhemoglobin ABG Sodium ABG Potassium ABG Chloride ABG Glucose Carboxyhemoglobin Sodium Potassium Chloride Carbon Dioxide BUN Creatinine Glucose POC Glucose 159 H 171 H Hemoglobin A1c Lactic Acid Calcium Phosphorus Magnesium Ferritin Total Bilirubin Direct Bilirubin AST ALT Alkaline Phosphatase Lactate Dehydrogenase Total Creatine Kinase 258 H C-Reactive Protein Total Protein Albumin Gbueo-3-Uvkmzalov Crvex-2-Xoyovczcd Beta Globulins Abnorm Protein Band 1 PEP Interpretation Triglycerides TSH Thyroxine (T4) Arterial Blood Glucose Arterial Blood Ionized Calcium Immunofix Electrophor Coronavirus (PCR) 01/27/21 01/27/21 01/27/21 11:55 11:55 18:00 WBC RBC Hgb Hct Plt Count Lymph % (Auto) Lymph # (Auto) [place] # (Auto) Seg Neutrophils % Seg Neuts % (Manual) Lymphocytes % (Manual) Nucleated RBC % Seg Neutrophils # Seg Neutrophils # Man Lymphocytes # (Manual) Monocytes # (Manual) PT INR D-Dimer Heparin Anti-Xa Level ABG pH POC ABG pCO2 POC ABG pO2 ABG pO2 ABG Base Excess ABG Oxyhemoglobin ABG Sodium ABG Potassium ABG Chloride ABG Glucose Carboxyhemoglobin Sodium Potassium Chloride Carbon Dioxide BUN Creatinine Glucose POC Glucose 185 H Hemoglobin A1c Lactic Acid Calcium Phosphorus Magnesium Ferritin Total Bilirubin Direct Bilirubin AST ALT Alkaline Phosphatase Lactate Dehydrogenase Total Creatine Kinase C-Reactive Protein Total Protein Albumin 2.5 L Vtrth-5-Czphoulke 0.7 H Dmoim-2-Qrviyblin 1.2 H Beta Globulins 0.7 H Abnorm Protein Band 1 0.5 H PEP Interpretation see below H Triglycerides TSH Thyroxine (T4) Arterial Blood Glucose Arterial Blood Ionized Calcium Immunofix Electrophor see below H Coronavirus (PCR) 08/01/28/21 01/28/21 04:00 04:00 10:03 WBC RBC Hgb Hct Plt Count 104 L Lymph % (Auto) Lymph # (Auto) [place] # (Auto) Seg Neutrophils % Seg Neuts % (Manual) Lymphocytes % (Manual) Nucleated RBC % Seg Neutrophils # Seg Neutrophils # Man Lymphocytes # (Manual) Monocytes # (Manual) PT INR D-Dimer Heparin Anti-Xa Level ABG pH 7.272 L POC ABG pCO2 48.4 H POC ABG pO2 ABG pO2 ABG Base Excess ABG Oxyhemoglobin ABG Sodium ABG Potassium ABG Chloride ABG Glucose 174 H Carboxyhemoglobin Sodium Potassium Chloride Carbon Dioxide BUN Creatinine Glucose POC Glucose Hemoglobin A1c Lactic Acid Calcium Phosphorus Magnesium Ferritin Total Bilirubin Direct Bilirubin AST ALT Alkaline Phosphatase Lactate Dehydrogenase Total Creatine Kinase C-Reactive Protein Total Protein Albumin Dgeav-1-Feafrxcbf Eclgu-4-Cjileuxvx Beta Globulins Abnorm Protein Band 1 PEP Interpretation Triglycerides 369 H TSH Thyroxine (T4) Arterial Blood Glucose 174 H Arterial Blood Ionized Calcium 4.3 L Immunofix Electrophor Coronavirus (PCR) 01/28/21 01/28/21 01/28/21 10:03 10:03 10:03 WBC RBC Hgb Hct Plt Count Lymph % (Auto) Lymph # (Auto) [place] # (Auto) Seg Neutrophils % Seg Neuts % (Manual) Lymphocytes % (Manual) Nucleated RBC % Seg Neutrophils # Seg Neutrophils # Man Lymphocytes # (Manual) Monocytes # (Manual) PT 17.3 H INR 1.36 H D-Dimer Heparin Anti-Xa Level ABG pH POC ABG pCO2 POC ABG pO2 ABG pO2 ABG Base Excess ABG Oxyhemoglobin ABG Sodium ABG Potassium ABG Chloride ABG Glucose Carboxyhemoglobin Sodium Potassium 5.2 H Chloride Carbon Dioxide BUN 69 H Creatinine 5.6 H Glucose 220 H POC Glucose Hemoglobin A1c Lactic Acid Calcium 7.7 L Phosphorus Magnesium Ferritin Total Bilirubin Direct Bilirubin AST ALT Alkaline Phosphatase Lactate Dehydrogenase Total Creatine Kinase C-Reactive Protein Total Protein Albumin Piarc-0-Ggiotomxi Cebeb-1-Iklncrelo Beta Globulins Abnorm Protein Band 1 PEP Interpretation Triglycerides TSH 0.013 L Thyroxine (T4) Arterial Blood Glucose Arterial Blood Ionized Calcium Immunofix Electrophor Coronavirus (PCR) 01/28/21 01/28/21 01/28/21 11:34 13:40 15:31 WBC RBC Hgb Hct Plt Count Lymph % (Auto) Lymph # (Auto) [place] # (Auto) Seg Neutrophils % Seg Neuts % (Manual) Lymphocytes % (Manual) Nucleated RBC % Seg Neutrophils # Seg Neutrophils # Man Lymphocytes # (Manual) Monocytes # (Manual) PT INR D-Dimer Heparin Anti-Xa Level 1.21 H ABG pH POC ABG pCO2 POC ABG pO2 ABG pO2 ABG Base Excess ABG Oxyhemoglobin ABG Sodium ABG Potassium ABG Chloride ABG Glucose Carboxyhemoglobin Sodium Potassium Chloride Carbon Dioxide BUN Creatinine Glucose POC Glucose 221 H Hemoglobin A1c Lactic Acid Calcium Phosphorus Magnesium 2.50 H Ferritin Total Bilirubin Direct Bilirubin AST ALT Alkaline Phosphatase Lactate Dehydrogenase Total Creatine Kinase C-Reactive Protein Total Protein Albumin Jcyxy-0-Klvpuefcf Idojv-8-Qyachrpnj Beta Globulins Abnorm Protein Band 1 PEP Interpretation Triglycerides TSH Thyroxine (T4) Arterial Blood Glucose Arterial Blood Ionized Calcium Immunofix Electrophor Coronavirus (PCR) 01/28/21 01/29/21 01/29/21 18:02 04:00 04:30 WBC RBC Hgb Hct Plt Count Lymph % (Auto) Lymph # (Auto) [place] # (Auto) Seg Neutrophils % Seg Neuts % (Manual) Lymphocytes % (Manual) Nucleated RBC % Seg Neutrophils # Seg Neutrophils # Man Lymphocytes # (Manual) Monocytes # (Manual) PT INR D-Dimer Heparin Anti-Xa Level 0.81 H ABG pH 7.229 L POC ABG pCO2 48.8 H POC ABG pO2 ABG pO2 ABG Base Excess ABG Oxyhemoglobin ABG Sodium 135.3 L ABG Potassium 5.2 H ABG Chloride ABG Glucose 264 H Carboxyhemoglobin Sodium Potassium Chloride Carbon Dioxide BUN Creatinine Glucose POC Glucose 215 H Hemoglobin A1c Lactic Acid Calcium Phosphorus Magnesium Ferritin Total Bilirubin Direct Bilirubin AST ALT Alkaline Phosphatase Lactate Dehydrogenase Total Creatine Kinase C-Reactive Protein Total Protein Albumin Oejbr-7-Yeecriyhy Qrmvt-1-Hluuyvyjp Beta Globulins Abnorm Protein Band 1 PEP Interpretation Triglycerides TSH Thyroxine (T4) Arterial Blood Glucose 264 H Arterial Blood Ionized Calcium 4.0 L Immunofix Electrophor Coronavirus (PCR) 01/29/21 01/29/21 01/29/21 13:23 17:56 23:12 WBC RBC Hgb Hct Plt Count Lymph % (Auto) Lymph # (Auto) [place] # (Auto) Seg Neutrophils % Seg Neuts % (Manual) Lymphocytes % (Manual) Nucleated RBC % Seg Neutrophils # Seg Neutrophils # Man Lymphocytes # (Manual) Monocytes # (Manual) PT INR D-Dimer Heparin Anti-Xa Level ABG pH POC ABG pCO2 POC ABG pO2 ABG pO2 ABG Base Excess ABG Oxyhemoglobin ABG Sodium ABG Potassium ABG Chloride ABG Glucose Carboxyhemoglobin Sodium Potassium Chloride Carbon Dioxide BUN Creatinine Glucose POC Glucose 198 H 200 H 172 H Hemoglobin A1c Lactic Acid Calcium Phosphorus Magnesium Ferritin Total Bilirubin Direct Bilirubin AST ALT Alkaline Phosphatase Lactate Dehydrogenase Total Creatine Kinase C-Reactive Protein Total Protein Albumin Xoikz-0-Neqmsxfrj Xfimj-6-Duuuqzbwf Beta Globulins Abnorm Protein Band 1 PEP Interpretation Triglycerides TSH Thyroxine (T4) Arterial Blood Glucose Arterial Blood Ionized Calcium Immunofix Electrophor Coronavirus (PCR) 01/29/21 01/30/21 01/30/21 Unknown 04:00 04:05 WBC RBC Hgb Hct Plt Count Lymph % (Auto) Lymph # (Auto) [place] # (Auto) Seg Neutrophils % Seg Neuts % (Manual) Lymphocytes % (Manual) Nucleated RBC % Seg Neutrophils # Seg Neutrophils # Man Lymphocytes # (Manual) Monocytes # (Manual) PT INR D-Dimer Heparin Anti-Xa Level 0.85 H ABG pH 7.304 L 7.288 L POC ABG pCO2 49.7 H POC ABG pO2 112.8 H 169.7 H ABG pO2 ABG Base Excess ABG Oxyhemoglobin 98.4 H ABG Sodium 132.5 L ABG Potassium 5.2 H 4.8 H ABG Chloride ABG Glucose 160 H 196 H Carboxyhemoglobin Sodium Potassium Chloride Carbon Dioxide BUN Creatinine Glucose POC Glucose Hemoglobin A1c Lactic Acid Calcium Phosphorus Magnesium Ferritin Total Bilirubin Direct Bilirubin AST ALT Alkaline Phosphatase Lactate Dehydrogenase Total Creatine Kinase C-Reactive Protein Total Protein Albumin Jasax-7-Qblreqgmf Qgjch-6-Eiyqtptba Beta Globulins Abnorm Protein Band 1 PEP Interpretation Triglycerides TSH Thyroxine (T4) Arterial Blood Glucose 160 H 196 H Arterial Blood Ionized Calcium 4.1 L 4.0 L Immunofix Electrophor Coronavirus (PCR) 01/30/21 01/30/21 01/30/21 05:00 05:00 05:32 WBC 27.4 H RBC Hgb 11.6 L Hct 34.8 L Plt Count 126 L Lymph % (Auto) Lymph # (Auto) [place] # (Auto) Seg Neutrophils % Seg Neuts % (Manual) Lymphocytes % (Manual) Nucleated RBC % Seg Neutrophils # Seg Neutrophils # Man Lymphocytes # (Manual) Monocytes # (Manual) PT INR D-Dimer Heparin Anti-Xa Level ABG pH POC ABG pCO2 POC ABG pO2 ABG pO2 ABG Base Excess ABG Oxyhemoglobin ABG Sodium ABG Potassium ABG Chloride ABG Glucose Carboxyhemoglobin Sodium 136 L Potassium Chloride 97.4 L Carbon Dioxide BUN 75 H Creatinine 5.4 H Glucose 184 H POC Glucose 169 H Hemoglobin A1c Lactic Acid Calcium 7.4 L Phosphorus 8.60 H Magnesium 2.40 H Ferritin Total Bilirubin Direct Bilirubin AST ALT Alkaline Phosphatase Lactate Dehydrogenase Total Creatine Kinase C-Reactive Protein Total Protein Albumin Cmmgg-7-Tbtmeoziq Nrccj-4-Tnktcdifg Beta Globulins Abnorm Protein Band 1 PEP Interpretation Triglycerides TSH Thyroxine (T4) Arterial Blood Glucose Arterial Blood Ionized Calcium Immunofix Electrophor Coronavirus (PCR) 01/30/21 01/30/21 01/30/21 11:23 15:35 18:13 WBC RBC Hgb Hct Plt Count Lymph % (Auto) Lymph # (Auto) [place] # (Auto) Seg Neutrophils % Seg Neuts % (Manual) Lymphocytes % (Manual) Nucleated RBC % Seg Neutrophils # Seg Neutrophils # Man Lymphocytes # (Manual) Monocytes # (Manual) PT INR D-Dimer Heparin Anti-Xa Level ABG pH POC ABG pCO2 POC ABG pO2 ABG pO2 ABG Base Excess ABG Oxyhemoglobin ABG Sodium ABG Potassium ABG Chloride ABG Glucose Carboxyhemoglobin Sodium Potassium Chloride Carbon Dioxide BUN Creatinine Glucose POC Glucose 177 H 123 H Hemoglobin A1c Lactic Acid Calcium Phosphorus Magnesium Ferritin Total Bilirubin Direct Bilirubin AST ALT Alkaline Phosphatase Lactate Dehydrogenase Total Creatine Kinase C-Reactive Protein Total Protein Albumin Jzkrh-3-Afrcrrwwm Cslkg-4-Wtmreoszk Beta Globulins Abnorm Protein Band 1 PEP Interpretation Triglycerides TSH Thyroxine (T4) 3.3 L Arterial Blood Glucose Arterial Blood Ionized Calcium Immunofix Electrophor Coronavirus (PCR) 01/30/21 01/31/21 01/31/21 23:49 03:30 03:30 WBC 31.3 H RBC Hgb 11.4 L Hct 34.6 L Plt Count Lymph % (Auto) Lymph # (Auto) [place] # (Auto) Seg Neutrophils % Seg Neuts % (Manual) Lymphocytes % (Manual) Nucleated RBC % Seg Neutrophils # Seg Neutrophils # Man Lymphocytes # (Manual) Monocytes # (Manual) PT INR D-Dimer Heparin Anti-Xa Level ABG pH POC ABG pCO2 POC ABG pO2 ABG pO2 ABG Base Excess ABG Oxyhemoglobin ABG Sodium ABG Potassium ABG Chloride ABG Glucose Carboxyhemoglobin Sodium Potassium 5.3 H Chloride Carbon Dioxide BUN 111 H Creatinine 6.8 H Glucose 143 H POC Glucose 143 H Hemoglobin A1c Lactic Acid Calcium 7.3 L Phosphorus Magnesium Ferritin Total Bilirubin 1.70 H Direct Bilirubin AST 57 H ALT Alkaline Phosphatase Lactate Dehydrogenase Total Creatine Kinase C-Reactive Protein Total Protein 5.5 L D Albumin 2.5 L Mnqoc-9-Uldorslet Cwmpb-7-Xuryydzkt Beta Globulins Abnorm Protein Band 1 PEP Interpretation Triglycerides TSH Thyroxine (T4) Arterial Blood Glucose Arterial Blood Ionized Calcium Immunofix Electrophor Coronavirus (PCR) 01/31/21 01/31/21 01/31/21 03:30 04:54 12:00 WBC RBC Hgb Hct Plt Count Lymph % (Auto) Lymph # (Auto) [place] # (Auto) Seg Neutrophils % Seg Neuts % (Manual) Lymphocytes % (Manual) Nucleated RBC % Seg Neutrophils # Seg Neutrophils # Man Lymphocytes # (Manual) Monocytes # (Manual) PT INR D-Dimer Heparin Anti-Xa Level ABG pH POC ABG pCO2 POC ABG pO2 ABG pO2 ABG Base Excess ABG Oxyhemoglobin ABG Sodium ABG Potassium ABG Chloride ABG Glucose Carboxyhemoglobin Sodium Potassium Chloride Carbon Dioxide BUN Creatinine Glucose POC Glucose 133 H 152 H Hemoglobin A1c Lactic Acid Calcium Phosphorus Magnesium Ferritin Total Bilirubin 1.60 H Direct Bilirubin 1.6 H AST 57 H ALT Alkaline Phosphatase Lactate Dehydrogenase Total Creatine Kinase C-Reactive Protein Total Protein 5.5 L Albumin 2.5 L Aiuxm-7-Opaqbxblc Ynxew-6-Tgpusqnru Beta Globulins Abnorm Protein Band 1 PEP Interpretation Triglycerides TSH Thyroxine (T4) Arterial Blood Glucose Arterial Blood Ionized Calcium Immunofix Electrophor Coronavirus (PCR) 01/31/21 01/31/21 02/01/21 17:19 23:46 00:25 WBC RBC Hgb Hct Plt Count Lymph % (Auto) Lymph # (Auto) [place] # (Auto) Seg Neutrophils % Seg Neuts % (Manual) Lymphocytes % (Manual) Nucleated RBC % Seg Neutrophils # Seg Neutrophils # Man Lymphocytes # (Manual) Monocytes # (Manual) PT INR D-Dimer Heparin Anti-Xa Level 0.19 L ABG pH POC ABG pCO2 POC ABG pO2 ABG pO2 ABG Base Excess ABG Oxyhemoglobin ABG Sodium ABG Potassium ABG Chloride ABG Glucose Carboxyhemoglobin Sodium Potassium Chloride Carbon Dioxide BUN Creatinine Glucose POC Glucose 142 H 140 H Hemoglobin A1c Lactic Acid Calcium Phosphorus Magnesium Ferritin Total Bilirubin Direct Bilirubin AST ALT Alkaline Phosphatase Lactate Dehydrogenase Total Creatine Kinase C-Reactive Protein Total Protein Albumin Ptlxa-4-Sxhkvnyam Bdpct-1-Satjnjjwz Beta Globulins Abnorm Protein Band 1 PEP Interpretation Triglycerides TSH Thyroxine (T4) Arterial Blood Glucose Arterial Blood Ionized Calcium Immunofix Electrophor Coronavirus (PCR) 02/01/21 02/01/21 02/01/21 03:10 04:00 04:00 WBC RBC Hgb 11.6 L Hct 34.6 L Plt Count Lymph % (Auto) Lymph # (Auto) [place] # (Auto) Seg Neutrophils % Seg Neuts % (Manual) Lymphocytes % (Manual) Nucleated RBC % Seg Neutrophils # Seg Neutrophils # Man Lymphocytes # (Manual) Monocytes # (Manual) PT INR D-Dimer Heparin Anti-Xa Level ABG pH 7.294 L POC ABG pCO2 50.8 H POC ABG pO2 77.2 L ABG pO2 ABG Base Excess ABG Oxyhemoglobin 92.9 L ABG Sodium 131.4 L ABG Potassium 5.2 H ABG Chloride 97.0 L ABG Glucose 158 H Carboxyhemoglobin Sodium 136 L Potassium 5.2 H Chloride 93.6 L Carbon Dioxide BUN 78 H Creatinine 5.7 H Glucose 152 H POC Glucose Hemoglobin A1c Lactic Acid Calcium 7.1 L Phosphorus Magnesium Ferritin Total Bilirubin 3.00 H Direct Bilirubin AST 117 H ALT 108 H Alkaline Phosphatase Lactate Dehydrogenase Total Creatine Kinase C-Reactive Protein Total Protein 5.6 L Albumin 2.7 L Ictrk-1-Ucdeigkcj Oeoau-1-Rnkaksjkj Beta Globulins Abnorm Protein Band 1 PEP Interpretation Triglycerides TSH Thyroxine (T4) Arterial Blood Glucose 158 H Arterial Blood Ionized Calcium 3.9 L Immunofix Electrophor Coronavirus (PCR) 02/01/21 02/01/21 02/01/21 05:36 09:15 11:42 WBC RBC Hgb Hct Plt Count Lymph % (Auto) Lymph # (Auto) [place] # (Auto) Seg Neutrophils % Seg Neuts % (Manual) Lymphocytes % (Manual) Nucleated RBC % Seg Neutrophils # Seg Neutrophils # Man Lymphocytes # (Manual) Monocytes # (Manual) PT 15.1 H INR D-Dimer Heparin Anti-Xa Level ABG pH POC ABG pCO2 POC ABG pO2 ABG pO2 ABG Base Excess ABG Oxyhemoglobin ABG Sodium ABG Potassium ABG Chloride ABG Glucose Carboxyhemoglobin Sodium Potassium Chloride Carbon Dioxide BUN Creatinine Glucose POC Glucose 167 H 159 H Hemoglobin A1c Lactic Acid Calcium Phosphorus Magnesium Ferritin Total Bilirubin Direct Bilirubin AST ALT Alkaline Phosphatase Lactate Dehydrogenase Total Creatine Kinase C-Reactive Protein Total Protein Albumin Raxsr-5-Iqkentqhc Ohvjk-8-Hzhnzmngs Beta Globulins Abnorm Protein Band 1 PEP Interpretation Triglycerides TSH Thyroxine (T4) Arterial Blood Glucose Arterial Blood Ionized Calcium Immunofix Electrophor Coronavirus (PCR) Chest x-ray: image reviewed (increased L. pneumothorax) Allied health notes reviewed: nursing
--- NOTE | 2021-02-01 15:55 | XRay Report ---
CHEST 1 VIEW 02/01/2021 2:48 PM INDICATION / CLINICAL INFORMATION: left chest tube. COMPARISON: Earlier the same day. FINDINGS: SUPPORT DEVICES: New left-sided chest tube. Remaining lines and tubes are unchanged. HEART / MEDIASTINUM: No significant abnormality. LUNGS / PLEURA: Persistent bilateral opacity diffusely left greater than right with small left pneumo thorax. Mild interval improvement on the right. Improving aeration right base. ADDITIONAL FINDINGS: No significant additional findings. IMPRESSION: 1. Mild interval improvement in the appearance of the lungs. 2. Small left pneumothorax remains, but is mildly decreased in size status post chest tube placement. Signer Name: Luis Daniel Frost MD Signed: 02/01/2021 3:51 PM Workstation Name: [id number]
[2021-02-01] MEDS ORDERED: LIDOCAINE (1%) 10 MG/1 ML VIAL 20 ML MDV ONE (15:56)
--- NOTE | 2021-02-01 16:08 | Procedure Note ---
Date of procedure: 02/01/21 Pre-op diagnosis: left sided pneumothorax Post-op diagnosis: same Procedure: Procedure: Left chest tube placement Indication: Patient had an aborted left chest tube placement yesterday due to adhesions. Patient had a chest x-ray today that showed a moderate size left pneumothorax with collapsed lung. It was decided to reattempt left chest tube placement. A consent was obtained from his again. Details of procedure: Under sterile condition through an incision placed more superior than the one prior to yesterday a 28 [place] chest tube was placed through the same 5th intercostal space as prior. There was some resistance and under able to advance the tube as far as usual. The chest tube was secured at the 10 cm alejandro at the level of the skin. There was tidaling of small amount of blood noted in the tube. A postplacement chest x-ray was performed that showed that the last hole was in fact in thoracic cavity. There was some improvement in the left-sided pneumothorax. Patient tolerated the procedure well. Anesthesia: local Surgeon: SHANICE KINCAID [employer]: MONICA SCALES Estimated blood loss: 50-100ml Pathology: none Condition: critical Disposition: ICU
--- NOTE | 2021-02-01 16:47 | Event Note ---
Date: 02/01/21 Patient had a chest x-ray today that showed a moderate sized left pneumothorax. It was decided to reattempt placement of a left chest tube since the lung was showing some evidence of collapse. Consent was obtained from the . Left chest tube was successfully placed.
[2021-02-02] MEDS: METOCLOPRAMIDE 10 MG/2 ML INJ IV SCH ×4 (00:08→21:13)
[2021-02-02 04:48] LABS: Hematocrit 32.3 % (35.5-45.6); Hemoglobin 10.7 gm/dl (11.8-15.2); Mean Corpuscular HGB Conc 33 % (32-34); Mean Corpuscular Volume 88 fl (84-94); Platelet Count 151 K/mm3 (140-440); Red Blood Count 3.68 M/mm3 (3.65-5.03); Red Cell Distribution Width 14.5 % (13.2-15.2)
[2021-02-02 04:58] LABS: INR 1.13 (0.87-1.13)
[2021-02-02 05:15] LABS: Albumin 2.5 g/dL (3.9-5); Calcium 7.1 mg/dL (8.4-10.2)
[2021-02-02] MEDS: INSULIN REGULAR, HUMAN 100 UNITS/1 ML SUB-Q SCH ×5 (05:18→18:26)
--- NOTE | 2021-02-02 08:05 | XRay Report ---
CHEST 1 VIEW 02/02/2021 1:18 AM INDICATION / CLINICAL INFORMATION: hypoxia/ptx. COMPARISON: One view of the chest from 02/01/2021 FINDINGS: SUPPORT DEVICES: Unchanged. HEART / MEDIASTINUM: Stable. LUNGS / PLEURA: There is bilateral airspace opacities are similar with interval decrease in size of t he left pneumothorax. No significant pleural effusion. ADDITIONAL FINDINGS: No significant additional findings. IMPRESSION: Interval decrease in size of the left pneumothorax without other significant interval changes. Signer Name: Dewayne Finley MD Signed: 02/02/2021 8:01 AM Workstation Name: [id number]
[2021-02-02] MEDS: HEPARIN/ 0.45% NACL DRIP 25,000 UNIT/500 ML BAG IV SCH (08:26)
--- NOTE | 2021-02-02 09:07 | Progress Note ---
Subjective Date of service: 02/02/21 Principal diagnosis: Ac hypoxemic resp failure; COVID-19; Pneumonia; Sepsis; Morbid obesity Interval history: Assessment: Acute kidney injury Hyperkalemia Acidosis Azotemia Acute respiratory failure, status post intubation Covid pneumonia pneumothorax Septic shock Recommendations HD q MWF and prn Consent was obtained from for [employer]. Possible complications on dialysis were also explained in detail. Assess daily for needs for additional hemodialysis sessions UF Tolerated with hd chest tube --surgery note reviewed daily lytes, strict i/os likey ATN due to COvid infection Renally dose medications Avoid nephrotoxins lifel[facility] referral noted, may not be penitentiary dialysis appropriate, palliative care discussion appropriate Subjective Principal diagnosis: Ac hypoxemic resp failure; COVID-19; Pneumonia; Sepsis; Morbid obesity Interval history: Remains intubated. Objective - Exam exam deferred for preservation of ppe, primary team exam noted Objective - Vital Signs Vital signs: Vital Signs - 12hr 02/01/21 02/01/21 02/01/21 21:16 21:30 21:46 Temperature Pulse Rate 89 90 90 Pulse Rate [ From Monitor] Respiratory 30 H 31 H 31 H Rate Blood Pressure 129/57 129/57 129/57 O2 Sat by Pulse 94 93 93 Oximetry 02/01/21 02/01/21 02/01/21 22:00 22:16 22:30 Temperature Pulse Rate 90 91 H 91 H Pulse Rate [ From Monitor] Respiratory 32 H 31 H 32 H Rate Blood Pressure 120/56 129/57 129/57 O2 Sat by Pulse 92 93 93 Oximetry 02/01/21 02/01/21 02/01/21 22:46 23:00 23:16 Temperature Pulse Rate 89 89 89 Pulse Rate [ From Monitor] Respiratory 30 H 30 H 31 H Rate Blood Pressure 129/57 114/48 114/48 O2 Sat by Pulse 93 92 94 Oximetry 02/01/21 02/01/21 02/01/21 23:30 23:31 23:46 Temperature 98.5 F Pulse Rate 89 88 Pulse Rate [ From Monitor] Respiratory 30 H 30 H Rate Blood Pressure 114/48 114/48 O2 Sat by Pulse 95 95 Oximetry 02/02/21 02/02/21 02/02/21 00:00 00:16 00:30 Temperature Pulse Rate 90 88 88 Pulse Rate [ 90 From Monitor] Respiratory 32 H 31 H 31 H Rate Blood Pressure 114/48 128/51 128/51 O2 Sat by Pulse 93 94 95 Oximetry 02/02/21 02/02/21 02/02/21 00:46 01:00 01:16 Temperature Pulse Rate 88 87 87 Pulse Rate [ From Monitor] Respiratory 31 H 31 H 30 H Rate Blood Pressure 128/51 121/51 121/51 O2 Sat by Pulse 94 92 95 Oximetry 02/02/21 02/02/21 02/02/21 01:30 01:46 02:00 Temperature Pulse Rate 87 87 86 Pulse Rate [ From Monitor] Respiratory 33 H 32 H 30 H Rate Blood Pressure 121/51 121/51 130/55 O2 Sat by Pulse 95 95 93 Oximetry 02/02/21 02/02/21 02/02/21 02:16 02:30 02:46 Temperature Pulse Rate 85 85 85 Pulse Rate [ From Monitor] Respiratory 31 H 30 H 30 H Rate Blood Pressure 130/55 130/55 130/55 O2 Sat by Pulse 96 96 96 Oximetry 02/02/21 02/02/21 02/02/21 03:00 03:16 03:30 Temperature Pulse Rate 85 85 84 Pulse Rate [ From Monitor] Respiratory 30 H 30 H 30 H Rate Blood Pressure 125/50 125/50 125/50 O2 Sat by Pulse 94 96 96 Oximetry 02/02/21 02/02/21 02/02/21 03:46 03:51 04:00 Temperature 98.8 F Pulse Rate 85 85 Pulse Rate [ 94 H From Monitor] Respiratory 30 H 31 H Rate Blood Pressure 125/50 132/58 O2 Sat by Pulse 96 94 Oximetry 02/02/21 02/02/21 02/02/21 04:16 04:30 04:46 Temperature Pulse Rate 84 84 85 Pulse Rate [ From Monitor] Respiratory 30 H 30 H 30 H Rate Blood Pressure 132/58 132/58 132/58 O2 Sat by Pulse 96 97 96 Oximetry 02/02/21 02/02/21 02/02/21 05:00 05:12 05:16 Temperature Pulse Rate 84 85 85 Pulse Rate [ From Monitor] Respiratory 30 H 30 H Rate Blood Pressure 126/57 125/50 126/57 O2 Sat by Pulse 95 96 96 Oximetry 02/02/21 02/02/21 02/02/21 05:30 05:46 06:00 Temperature Pulse Rate 87 84 84 Pulse Rate [ From Monitor] Respiratory 30 H 30 H 32 H Rate Blood Pressure 126/57 126/57 125/59 O2 Sat by Pulse 97 96 94 Oximetry 02/02/21 02/02/21 02/02/21 06:16 06:30 06:37 Temperature Pulse Rate 85 86 Pulse Rate [ From Monitor] Respiratory 32 H 32 H Rate Blood Pressure 125/59 125/59 O2 Sat by Pulse 92 92 92 Oximetry 02/02/21 02/02/21 02/02/21 06:46 07:00 07:16 Temperature 98.3 F Pulse Rate 87 88 88 Pulse Rate [ From Monitor] Respiratory 33 H 33 H 33 H Rate Blood Pressure 125/59 121/61 121/61 O2 Sat by Pulse 90 87 89 Oximetry 02/02/21 07:30 Temperature Pulse Rate 88 Pulse Rate [ From Monitor] Respiratory 34 H Rate Blood Pressure 121/61 O2 Sat by Pulse 88 Oximetry - Lab 02/02/21 Unknown 02/02/21 Unknown Most recent lab results ABG pH 7.208 (7.320-7.450) L 02/02/21 02:58 ABG pCO2 46.6 mm Hg 01/26/21 08:30 ABG pO2 124.5 mm Hg (80.0-90.0) H 01/26/21 08:30 ABG HCO3 21.7 mmol/L (20.0-26.0) 01/26/21 08:30 ABG O2 Saturation 95.8 (0-100) 02/02/21 02:58 Calcium 7.1 mg/dL (8.4-10.2) L 02/02/21 Unknown Phosphorus 8.60 mg/dL (2.5-4.5) H 01/30/21 05:00 Magnesium 2.40 mg/dL (1.7-2.3) H 01/30/21 05:00 Medications & Allergies - Medications Allergies/Adverse Reactions: Allergies No Known Allergies Allergy (Verified 01/27/21 15:55) Per Peg López Home Medications: Home Medications Medication Instructions Recorded Confirmed Last Taken Type No Known Home Medications [No 01/27/21 01/27/21 Unknown History Reported Home Medications] Active Medications: Generic Name Dose Route Start Last Admin Trade Name Freq PRN Reason Stop Dose Admin Acetaminophen 650 mg 01/22/21 23:03 Acetaminophen 325 Mg Tab PO Q4H PRN Pain MILD(1-3)/Fever >100.5/ANDERSEN Albumin Human 25 gm 01/27/21 09:35 Albumin Human 25% (25 Gm/100 Ml) Inj IV MELECIO PRN Hypotension Amiodarone HCl 200 mg 01/30/21 10:00 02/01/21 09:06 Amiodarone 200 Mg Tab PO 200 mg DAILY JACK Administration Lipase/Protease/Amylase 1 each 01/27/21 11:37 Lipase 10,500/Protease 25,000/Amylase 43,750 (Units) Dr Cap FEEDTUBE PRN PRN For Clogged Feeding Tube Dextrose 50 ml 01/29/21 12:24 Dextrose 50% In Water (25gm) 50 Ml Syringe IV Q30MIN PRN Hypoglycemia Protocol Famotidine 20 mg 01/27/21 10:00 02/01/21 09:07 Famotidine 20 Mg/2 Ml Inj IV 20 mg DAILY JACK Administration Fentanyl 50 mcg 01/25/21 11:32 01/28/21 06:10 Fentanyl 100 Mcg/2 Ml Inj IV 50 mcg Q10MIN PRN Administration ANALGESIA Heparin Sodium (Porcine) 5,000 unit 01/28/21 09:27 Heparin 10,000 Units/10 Ml Vial IV Q6H PRN Anti-Xa Assay < 0.1 units/ml Hydrophilic Ointment 1 applic 01/25/21 13:27 Lip Therapy Vaseline TP Q2HR PRN Dry Lips Fentanyl Citrate 2,000 mcg in 100 mls @ 6.357 mls/hr 01/25/21 12:00 01/30/21 05:21 Fentanyl Drip Premix IV 0 mcg/kg/hr TITR JACK 0 mls/hr Titration Protocol 1 MCG/KG/HR Propofol 1,000 mg in 100 mls @ 3.814 mls/hr 01/25/21 14:00 01/30/21 05:19 Diprivan 10 Mg/Ml IV 0 mcg/kg/min TITR JACK 0 mls/hr Titration Protocol 5 MCG/KG/MIN Norepinephrine 4 mg in 250 mls @ 7.5 mls/hr 01/25/21 17:04 01/31/21 09:05 Levophed Drip 4 Mg/Ns 250 Ml IV 2 mcg/min TITR JACK 7.5 mls/hr Titration Protocol 2 MCG/MIN Midazolam HCl 100 mg/ Sodium 100 mls @ 1 mls/hr 01/26/21 11:00 01/30/21 05:24 Chloride IV 0 mg/hr TITR JACK 0 mls/hr Titration Protocol 1 MG/HR Sodium Chloride 100 mls @ 999 mls/hr 01/27/21 09:35 Nacl 0.9% IV MELECIO PRN Hypotension Vasopressin 20 unit/ Sodium 101 mls @ 9.09 mls/hr 01/28/21 07:00 01/30/21 08:55 Chloride IV Infused TITR JACK Titration Protocol 0.03 UNITS/MIN Heparin Sodium/Sodium Chloride 25,000 unit in 500 mls @ 30 mls/hr 01/28/21 11:00 02/02/21 08:26 Heparin/ 0.45% Nacl-25,000 Unit/500 Ml IV 1,150 units/hr TITR JACK 23 mls/hr Administration Protocol 1,500 UNITS/HR Insulin Human Regular 0 units 01/29/21 13:00 02/02/21 08:05 Insulin Regular, Human 100 Units/1 Ml SUB-Q Not Given Q6HR JACK Protocol Metoclopramide HCl 5 mg 01/30/21 12:00 02/02/21 08:17 Metoclopramide 10 Mg/2 Ml Inj IV 5 mg Q6HR JACK Administration Midazolam HCl 2 mg 01/25/21 16:13 Midazolam 2 Mg/2 Ml Inj IV Q10MIN PRN Sedation Multi-Ingred Cream/Lotion/Oil/Oint 1 applic 01/25/21 13:27 Mineral Oil/Petrolatum, White Ophth Oint 3.5 Gm OU Q4HR PRN Dry Eye(s) Ondansetron HCl 4 mg 01/22/21 23:03 Ondansetron 4 Mg/2 Ml Inj IV Q8H PRN Nausea And Vomiting Senna/Docusate Sodium 1 tab 01/25/21 22:00 02/01/21 21:49 Sennosides/Docusate Sodium 8.6/50 Mg Tab FEEDTUBE 1 tab BID JACK Administration Simple Syrup 15 ml 01/27/21 11:37 Simple Syrup 15 Ml FEEDTUBE PRN PRN Hypoglycemia Simple Syrup 30 ml 01/27/21 11:37 Simple Syrup 15 Ml FEEDTUBE PRN PRN Hypoglycemia Sodium Bicarbonate 325 mg 01/27/21 11:37 Sodium Bicarbonate 325 Mg Tab FEEDTUBE PRN PRN For Clogged Feeding Tube Sodium Chloride 10 ml 01/22/21 23:45 02/01/21 21:49 Sodium Chloride 0.9% 10 Ml Flush Syringe IV 10 ml BID JACK Administration Sodium Chloride 10 ml 01/22/21 23:03 Sodium Chloride 0.9% 10 Ml Flush Syringe IV PRN PRN LINE FLUSH Voriconazole 300 mg 01/29/21 11:00 02/01/21 21:49 Voriconazole 200 Mg Tab PO 300 mg Q12HR JACK Administration
[2021-02-02] MEDS: CHOLECALCIFEROL (VIT D3) 5,000 UNIT TAB PO SCH (10:55)
[2021-02-02] MEDS: AMIODARONE 200 MG TAB PO SCH (10:55)
[2021-02-02] MEDS: ZINC SULFATE 220 MG CAP PO SCH ×2 (10:55→21:12)
[2021-02-02] MEDS: SENNOSIDES/DOCUSATE SODIUM 8.6/50 MG TAB FEEDTUBE SCH ×2 (10:55→21:12)
[2021-02-02] MEDS: VORICONAZOLE 200 MG TAB PO SCH ×2 (10:55→21:14)
[2021-02-02] MEDS: FAMOTIDINE 20 MG/2 ML INJ IV SCH (10:56)
[2021-02-02] MEDS: ASCORBIC ACID 500 MG TAB PO SCH ×2 (10:56→21:12)
[2021-02-02] MEDS ORDERED: METOCLOPRAMIDE 10 MG/2 ML INJ IV SCH ×2 (11:00→12:00)
--- NOTE | 2021-02-02 11:11 | Progress Note ---
Assessment and Plan Acute Respiratory Failure COVID-19 PNA Septic Shock * Patient intubated. ID following * Continue to wean pressors as tolerated SEDRICK (initiated on dialysis) * Nephrology following Sinus tachycardia PAF with RVR * Patient sinus tachycardia 90s-100s on monitor * Echo 01/29/2021- Normal EF. Technically difficult study, no interpretable images were seen. * Continue anticoagulation with IV heparin gtt for now. * PO Amio 200mg daily. Will see as needed over the weekend. Pt seen in conjunction with Dr. Bryson, who agrees with the assessment and plan of care. - Patient Problems (1) Acute respiratory failure due to COVID-19 Current Visit: Yes Status: Acute (2) Atrial fibrillation with RVR Current Visit: Yes Status: Acute (3) Hypotension Current Visit: Yes Status: Acute (4) Morbid obesity with BMI of 40.0-44.9, adult Current Visit: Yes Status: Acute (5) Multifocal pneumonia Current Visit: Yes Status: Acute (6) Sepsis Current Visit: Yes Status: Acute (7) Chronic venous insufficiency Current Visit: Yes Status: Chronic Subjective Date of service: 02/02/21 Principal diagnosis: Ac hypoxemic resp failure; COVID-19; Pneumonia; Sepsis; Morbid obesity Interval history: Patient is intubated. sinus tachycardia 90s-100s on with no events Objective Last Vital Signs Temp 98.3 F 02/02/21 07:00 Pulse 94 H 02/02/21 09:24 Resp 34 H 02/02/21 07:30 BP 134/63 02/02/21 09:24 Pulse Ox 92 02/02/21 09:24 - Physical Examination General: Other (intubated) HEENT: Positive: Normocephaly Neck: Positive: trachea midline. Negative: JVD/HJR Cardiac: Positive: Regular Rate, Tachycardia Lungs: Positive: Ventilated Respirations Neuro: Positive: Other (intubated) Abdomen: Positive: Soft Skin: Negative: Rash Musculoskeletal: No Fluid Collection Extremities: Present: lower extr. pulses, edema, Other (chronic changes) - Labs and Meds Cardiac Enzymes 02/02/21 Range/Units Unknown AST 134 H (5-40) units/L Coagulation 02/02/21 Range/Units Unknown PT 15.1 H (12.2-14.9) Sec. INR 1.13 (0.87-1.13) CBC 02/02/21 Range/Units Unknown WBC 39.4 H (4.5-11.0) K/mm3 RBC 3.68 (3.65-5.03) M/mm3 Hgb 10.7 L (11.8-15.2) gm/dl Hct 32.3 L (35.5-45.6) % Plt Count 151 (140-440) K/mm3 Comprehensive Metabolic Panel 02/02/21 Range/Units Unknown Sodium 137 (137-145) mmol/L Potassium 5.9 H (3.6-5.0) mmol/L Chloride 95.0 L (98-107) mmol/L Carbon Dioxide 24 (22-30) mmol/L BUN 118 H (9-20) mg/dL Creatinine 7.2 H (0.8-1.3) mg/dL Glucose 152 H (75-100) mg/dL Calcium 7.1 L (8.4-10.2) mg/dL AST 134 H (5-40) units/L ALT 169 H (7-56) units/L Alkaline Phosphatase 94 (35-129) units/L Total Protein 5.0 L (6.3-8.2) g/dL Albumin 2.5 L (3.9-5) g/dL - Imaging and Cardiology EKG: report reviewed, image reviewed Echo: report reviewed - Telemetry EKG Rhythm: Sinus Rhythm - EKG Sinus rhythms and dysrhythmias: sinus tachycardia Repolarization changes or abnormalities: nonspecific abnormality, ST segment, and/or T wave - Allied health notes Allied health notes reviewed: nursing
[2021-02-02] MEDS ORDERED: VANCOMYCIN 2,000 MG in SODIUM CHLORIDE 0.9% 500 ML 500 ML IV ONE (13:14)
--- NOTE | 2021-02-02 13:14 | Progress Note ---
Assessment and Plan Cultures: SARS CoV2 PCR: positive 01/22/2021 blood culture: No growth 01/25/2021 endotracheal aspirate culture: Mold, sent to reference laboratory for further evaluation. A/P: 55/M with obesity, admitted with: #Shock: likely secondary to severe COVID-19. #Bilateral pneumonia: Secondary to COVID-19. Very high d-dimer. DVT scan negative. #Mold in sputum: ?colonization. Awaiting ID, meanwhile, initiated PO voriconazole given steroids and Actemra. Avoid ABLC given renal failure. #Acute hypoxic respiratory failure: Failed BiPAP. Requiring mechanical ventilation. #Subcutaneous emphysema, b/l pneumothorax, was seen by surgery and underwent right-sided chest tube placement 01/31/2021, left chest tube placement by Dr. Yee on 02/01/2021. #SEDRICK: creatinine elevated, on HD per nephrology. #Morbid obesity Recs: -Sputum culture ordered -IV Cefepime + Vancomycin x 5 days -s/p Actemra on 01/26/2021 -complete at least 10 days of steroids -continue PO voriconazole given steroids and Actemra. Avoid ABLC given renal failure. F/u Aspergillus galactomannan and 1,3 [id number] -prophylactic anticoagulation based on d-dimer per hospital protocol. -extremely poor prognosis, consider DNR status Misael Dudley MD, FACP [facility] O: [phone] F: [phone] Subjective Date of service: 02/02/21 Principal diagnosis: Ac hypoxemic resp failure; COVID-19; Pneumonia; Sepsis; Morbid obesity Interval history: Febrile yesterday. No fever today. Leukocytosis has continued to climb, up to 39.4 today. Remains on Levophed. Remains on the vent, 90% FiO2, 14 PEEP. Chest x-ray showed moderate sized left pneumothorax. Underwent left chest tube placement by Dr. Yee. Objective - Exam Narrative Exam: Physical Exam (reviewed in chart to minimize risk of transmission) Constitutional: deferred Head, Ears, Nose: deferred Eyes: deferred Neck: deferred Oral: deferred Cardiovascular: deferred Respiratory: deferred GI: deferred Musculoskeletal: deferred Skin: deferred Hem/Lymphatic: deferred Psych: deferred Neurological: deferred - Constitutional Vitals: Vital Signs Temp Pulse Resp BP Pulse Ox 98.3 F 92 H 34 H 128/58 93 02/02/21 11:44 02/02/21 12:50 02/02/21 07:30 02/02/21 12:50 02/02/21 12:50 Temperature -Last 24 Hours Temperature 98.3 F Temperature 98.3 F Temperature 98.8 F Temperature 98.5 F Temperature 98.7 F - Labs CBC & Chem 7: 02/02/21 Unknown 02/02/21 Unknown Labs: Abnormal lab results 02/01/21 02/01/21 02/02/21 Range/Units 17:28 23:06 02:58 WBC (4.5-11.0) K/mm3 Hgb (11.8-15.2) gm/dl Hct (35.5-45.6) % PT (12.2-14.9) Sec. ABG pH 7.208 L (7.320-7.450) POC ABG pCO2 58.3 H (32.0-48.0) mmHg ABG Hemoglobin 11.6 L (12.0-17.5) ABG Sodium 131.4 L (136.0-145.0) mmol/L ABG Potassium 5.6 H (3.40-4.50) mmol/L ABG Chloride 97.0 L (98-107) mmol/L ABG Glucose 155 H (65-95) mg/dL Potassium (3.6-5.0) mmol/L Chloride (98-107) mmol/L BUN (9-20) mg/dL Creatinine (0.8-1.3) mg/dL Glucose (75-100) mg/dL POC Glucose 171 H 155 H (70-105) mg/dL Calcium (8.4-10.2) mg/dL Total Bilirubin (0.1-1.2) mg/dL AST (5-40) units/L ALT (7-56) units/L Total Protein (6.3-8.2) g/dL Albumin (3.9-5) g/dL Arterial Blood Glucose 155 H (65-95) mg/dL Arterial Blood Ionized Calcium 3.9 L (4.6-5.3) mg/dL 02/02/21 02/02/21 02/02/21 Range/Units 05:06 11:10 Unknown WBC (4.5-11.0) K/mm3 Hgb (11.8-15.2) gm/dl Hct (35.5-45.6) % PT (12.2-14.9) Sec. ABG pH (7.320-7.450) POC ABG pCO2 (32.0-48.0) mmHg ABG Hemoglobin (12.0-17.5) ABG Sodium (136.0-145.0) mmol/L ABG Potassium (3.40-4.50) mmol/L ABG Chloride (98-107) mmol/L ABG Glucose (65-95) mg/dL Potassium 5.9 H (3.6-5.0) mmol/L Chloride 95.0 L (98-107) mmol/L BUN 118 H (9-20) mg/dL Creatinine 7.2 H (0.8-1.3) mg/dL Glucose 152 H (75-100) mg/dL POC Glucose 134 H 179 H (70-105) mg/dL Calcium 7.1 L (8.4-10.2) mg/dL Total Bilirubin 2.90 H (0.1-1.2) mg/dL AST 134 H (5-40) units/L ALT 169 H (7-56) units/L Total Protein 5.0 L (6.3-8.2) g/dL Albumin 2.5 L (3.9-5) g/dL Arterial Blood Glucose (65-95) mg/dL Arterial Blood Ionized Calcium (4.6-5.3) mg/dL 02/02/21 02/02/21 Range/Units Unknown Unknown WBC 39.4 H (4.5-11.0) K/mm3 Hgb 10.7 L (11.8-15.2) gm/dl Hct 32.3 L (35.5-45.6) % PT 15.1 H (12.2-14.9) Sec. ABG pH (7.320-7.450) POC ABG pCO2 (32.0-48.0) mmHg ABG Hemoglobin (12.0-17.5) ABG Sodium (136.0-145.0) mmol/L ABG Potassium (3.40-4.50) mmol/L ABG Chloride (98-107) mmol/L ABG Glucose (65-95) mg/dL Potassium (3.6-5.0) mmol/L Chloride (98-107) mmol/L BUN (9-20) mg/dL Creatinine (0.8-1.3) mg/dL Glucose (75-100) mg/dL POC Glucose (70-105) mg/dL Calcium (8.4-10.2) mg/dL Total Bilirubin (0.1-1.2) mg/dL AST (5-40) units/L ALT (7-56) units/L Total Protein (6.3-8.2) g/dL Albumin (3.9-5) g/dL Arterial Blood Glucose (65-95) mg/dL Arterial Blood Ionized Calcium (4.6-5.3) mg/dL
--- NOTE | 2021-02-02 13:17 | Progress Note ---
Assessment and Plan Acute hypoxemic respiratory failure COVID-19 infection Multifocal pneumonia Hypernatremia Sepsis Morbid obesity with BMI of 40.0-44.9, adult - repeat CXR in am - FiO2 remains at 90% - peep at 14 with minimal room to wean (91% O2sats) - continue to wean supplemental oxygen for target O2 sat's > 92% acutely - continue Reglan to 10 mg IV q8h - continue HD/UF per nephrology prescription for toxin and volume clearance - wean Vasopressors for target MAP > 65 mmHg - continue care as below otherwise; - Daily SAT and SBT assessment as tolerated - VAP bundle addressed - continue lung protective strategies - continue bronchodilators with pulmonary hygiene per RT - wean per pulmonary driven protocols otherwise - avoid nephrotoxins, renally dose all medications - continue to avoid benzodiazepine's, reduce the possibility of delirium - complete AB's per ID rec's - prn analgesia per CPOT score - Maintenance of sleep-wake cycle, avoid delirium - enteral nutritional support at goal rate as tolerated - G.I. & VTE prophylaxis - PT/OT/ROM exercises - continue mobility protocols for pressure ulcer prophylaxis - Monitor hemodynamics closely - continue other care per attending / other consultants - discharge planning ongoing concurrently COVID SPECIFIC INTERVENTIONS - Remdesivir as per ID/Pulmonary developed protocols (receiving) - continue systemic steroids for severe COVID-19 infection (Dexamethasone) - follow repeat COVID tests results - zinc and vitamin C supplementation - Monitor inflammatory markers per facility protocol - ferritin, Ddimer, CRP - therapeutic anticoagulation per system Protocol based on d-dimer and clinical considerations (VTE prophylaxis doses now) - Continue contact and airborne isolation .... Re-evaluate in am & prn CONDITION: CRITICAL PROGNOSIS: GUARDED CODE STATUS: FULL CODE The high probability of a clinically significant, sudden or life-threatening det erioration of the [respiratory, cardiovascular & neurologic] system(s) required my full and direct attention, intervention and personal management. The aggregate critical care time was [36] minutes without overlap. Time includes spent on; [x] Data Review and interpretation [x] Patient assessment and monitoring of vital signs [x] Documentation [x] Medication orders and management Subjective Date of service: 02/02/21 Principal diagnosis: Ac hypoxemic resp failure; COVID-19; Pneumonia; Sepsis; Morbid obesity Interval history: Patient is seen today for: Acute hypoxemic respiratory failure; COVID- 19infection; Multifocal pneumonia; Hypernatremia; Sepsis; Morbid obesity Seen and examined at bedside; 24hour events reviewed; nursing and respiratory care staff consulted; no adverse overnight events reported to me; resting in bed; remains on MVS; HD/UF today; mild bleeding into left vacutainer; tolerating tubes feeds so far but only @ 20 cc/hr; no emesis or overt aspiration Objective Vital Signs - 12hr 02/02/21 02/02/21 02/02/21 01:30 01:46 02:00 Temperature Pulse Rate 87 87 86 Pulse Rate [ From Monitor] Respiratory 33 H 32 H 30 H Rate Blood Pressure 121/51 121/51 130/55 O2 Sat by Pulse 95 95 93 Oximetry 02/02/21 02/02/21 02/02/21 02:16 02:30 02:46 Temperature Pulse Rate 85 85 85 Pulse Rate [ From Monitor] Respiratory 31 H 30 H 30 H Rate Blood Pressure 130/55 130/55 130/55 O2 Sat by Pulse 96 96 96 Oximetry 02/02/21 02/02/21 02/02/21 03:00 03:16 03:30 Temperature Pulse Rate 85 85 84 Pulse Rate [ From Monitor] Respiratory 30 H 30 H 30 H Rate Blood Pressure 125/50 125/50 125/50 O2 Sat by Pulse 94 96 96 Oximetry 02/02/21 02/02/21 02/02/21 03:46 03:51 04:00 Temperature 98.8 F Pulse Rate 85 85 Pulse Rate [ 94 H From Monitor] Respiratory 30 H 31 H Rate Blood Pressure 125/50 132/58 O2 Sat by Pulse 96 94 Oximetry 02/02/21 02/02/21 02/02/21 04:16 04:30 04:46 Temperature Pulse Rate 84 84 85 Pulse Rate [ From Monitor] Respiratory 30 H 30 H 30 H Rate Blood Pressure 132/58 132/58 132/58 O2 Sat by Pulse 96 97 96 Oximetry 02/02/21 02/02/21 02/02/21 05:00 05:12 05:16 Temperature Pulse Rate 84 85 85 Pulse Rate [ From Monitor] Respiratory 30 H 30 H Rate Blood Pressure 126/57 125/50 126/57 O2 Sat by Pulse 95 96 96 Oximetry 02/02/21 02/02/21 02/02/21 05:30 05:46 06:00 Temperature Pulse Rate 87 84 84 Pulse Rate [ From Monitor] Respiratory 30 H 30 H 32 H Rate Blood Pressure 126/57 126/57 125/59 O2 Sat by Pulse 97 96 94 Oximetry 02/02/21 02/02/21 02/02/21 06:16 06:30 06:37 Temperature Pulse Rate 85 86 Pulse Rate [ From Monitor] Respiratory 32 H 32 H Rate Blood Pressure 125/59 125/59 O2 Sat by Pulse 92 92 92 Oximetry 02/02/21 02/02/21 02/02/21 06:46 07:00 07:16 Temperature 98.3 F Pulse Rate 87 88 88 Pulse Rate [ From Monitor] Respiratory 33 H 33 H 33 H Rate Blood Pressure 125/59 121/61 121/61 O2 Sat by Pulse 90 87 89 Oximetry 02/02/21 02/02/21 02/02/21 07:30 09:24 11:44 Temperature 98.3 F Pulse Rate 88 94 H Pulse Rate [ From Monitor] Respiratory 34 H Rate Blood Pressure 121/61 134/63 O2 Sat by Pulse 88 92 Oximetry 02/02/21 12:50 Temperature Pulse Rate 92 H Pulse Rate [ From Monitor] Respiratory Rate Blood Pressure 128/58 O2 Sat by Pulse 93 Oximetry Constitutional: appears uncomfortable, other (middle aged obese male with mildly increased respiratory effort at rest on MVS) Eyes: non-icteric ENT: oropharynx moist, other (ETT 24 cm BRE) Neck: supple, no lymphadenopathy, no JVD, other (large circumference) Effort: mildly labored Ascultation: Bilateral: diminished breath sounds, rhonchi, other (L&R chest tubes in place) Percussion: Bilateral: not dull Cardiovascular: regular rate and rhythm Gastrointestinal: normoactive bowel sounds, soft, non-tender, non-distended (protuberant) Integumentary: normal Extremities: no cyanosis, no edema, pink and warm, pulses normal Neurologic: normal mental status, pupils equal and round, unable to assess (sedated) Psychiatric: other (unable top assess re: AMS) CBC and BMP: 02/02/21 Unknown 02/02/21 Unknown ABG, PT/INR, D-dimer: ABG ABG pH 7.208 (7.320-7.450) L 02/02/21 02:58 POC ABG pCO2 58.3 mmHg (32.0-48.0) H 02/02/21 02:58 ABG pCO2 46.6 mm Hg 01/26/21 08:30 POC ABG pO2 91.1 mmHg (83-108) 02/02/21 02:58 ABG pO2 124.5 mm Hg (80.0-90.0) H 01/26/21 08:30 POC ABG HCO3 22.7 02/02/21 02:58 ABG O2 Saturation 95.8 (0-100) 02/02/21 02:58 PT/INR, D-dimer PT 15.1 Sec. (12.2-14.9) H 02/02/21 Unknown INR 1.13 (0.87-1.13) 02/02/21 Unknown D-Dimer > 26735 ng/mlDDU (0-234) H 01/25/21 06:22 Abnormal lab findings: Abnormal Labs 01/22/21 01/22/21 01/22/21 11:06 11:06 11:06 WBC RBC Hgb Hct Plt Count Lymph % (Auto) Lymph # (Auto) Pratt # (Auto) Seg Neutrophils % Seg Neuts % (Manual) Lymphocytes % (Manual) Nucleated RBC % Seg Neutrophils # Seg Neutrophils # Man Lymphocytes # (Manual) Monocytes # (Manual) PT INR D-Dimer 2625.11 H Heparin Anti-Xa Level ABG pH POC ABG pCO2 POC ABG pO2 ABG pO2 ABG Base Excess ABG Hemoglobin ABG Oxyhemoglobin ABG Sodium ABG Potassium ABG Chloride ABG Glucose Carboxyhemoglobin Sodium Potassium Chloride Carbon Dioxide BUN Creatinine Glucose 130 H POC Glucose Hemoglobin A1c Lactic Acid Calcium Phosphorus Magnesium Ferritin 557.5 H Total Bilirubin Direct Bilirubin AST ALT Alkaline Phosphatase Lactate Dehydrogenase 799 H Total Creatine Kinase C-Reactive Protein 3.30 H Total Protein Albumin Beevj-8-Rgftaoeyx Frndo-5-Qinwujbzt Beta Globulins Abnorm Protein Band 1 PEP Interpretation Triglycerides TSH Thyroxine (T4) Arterial Blood Glucose Arterial Blood Ionized Calcium Immunofix Electrophor Coronavirus (PCR) 01/22/21 01/22/21 01/22/21 11:06 11:06 11:06 WBC 19.2 H RBC 5.63 H Hgb 15.8 H Hct 49.0 H Plt Count Lymph % (Auto) Lymph # (Auto) Pratt # (Auto) Seg Neutrophils % Seg Neuts % (Manual) 92.0 H Lymphocytes % (Manual) 1.0 L Nucleated RBC % 1.0 H Seg Neutrophils # Seg Neutrophils # Man 17.7 H Lymphocytes # (Manual) 0.2 L Monocytes # (Manual) 1.0 H PT INR D-Dimer Heparin Anti-Xa Level ABG pH POC ABG pCO2 POC ABG pO2 ABG pO2 ABG Base Excess ABG Hemoglobin ABG Oxyhemoglobin ABG Sodium ABG Potassium ABG Chloride ABG Glucose Carboxyhemoglobin Sodium Potassium 3.3 L Chloride Carbon Dioxide 20 L BUN 32 H Creatinine Glucose 130 H POC Glucose Hemoglobin A1c Lactic Acid 4.20 H* Calcium Phosphorus Magnesium Ferritin Total Bilirubin Direct Bilirubin AST ALT Alkaline Phosphatase Lactate Dehydrogenase Total Creatine Kinase C-Reactive Protein Total Protein Albumin 2.9 L Nzwxh-3-Lqvvlqfbl Bwojo-6-Rjmrdvunw Beta Globulins Abnorm Protein Band 1 PEP Interpretation Triglycerides TSH Thyroxine (T4) Arterial Blood Glucose Arterial Blood Ionized Calcium Immunofix Electrophor Coronavirus (PCR) 01/22/21 01/22/21 01/23/21 11:06 12:03 05:29 WBC 19.0 H RBC 5.24 H Hgb 15.3 H Hct 46.0 H Plt Count Lymph % (Auto) 4.4 L Lymph # (Auto) 0.8 L Pratt # (Auto) 1.2 H Seg Neutrophils % 89.1 H Seg Neuts % (Manual) Lymphocytes % (Manual) Nucleated RBC % Seg Neutrophils # 16.9 H Seg Neutrophils # Man Lymphocytes # (Manual) Monocytes # (Manual) PT INR D-Dimer Heparin Anti-Xa Level ABG pH POC ABG pCO2 30.7 L POC ABG pO2 61.4 L ABG pO2 ABG Base Excess ABG Hemoglobin ABG Oxyhemoglobin 90.5 L ABG Sodium ABG Potassium ABG Chloride ABG Glucose Carboxyhemoglobin 1.7 H Sodium Potassium Chloride Carbon Dioxide BUN Creatinine Glucose POC Glucose Hemoglobin A1c 6.2 H Lactic Acid Calcium Phosphorus Magnesium Ferritin Total Bilirubin Direct Bilirubin AST ALT Alkaline Phosphatase Lactate Dehydrogenase Total Creatine Kinase C-Reactive Protein Total Protein Albumin Vddrs-1-Qdfwttfvd Rfouf-4-Rgfspmzrp Beta Globulins Abnorm Protein Band 1 PEP Interpretation Triglycerides TSH Thyroxine (T4) Arterial Blood Glucose Arterial Blood Ionized Calcium Immunofix Electrophor Coronavirus (PCR) 01/23/21 01/23/21 01/23/21 05:29 09:00 16:55 WBC RBC Hgb Hct Plt Count Lymph % (Auto) Lymph # (Auto) Pratt # (Auto) Seg Neutrophils % Seg Neuts % (Manual) Lymphocytes % (Manual) Nucleated RBC % Seg Neutrophils # Seg Neutrophils # Man Lymphocytes # (Manual) Monocytes # (Manual) PT INR D-Dimer Heparin Anti-Xa Level ABG pH POC ABG pCO2 POC ABG pO2 ABG pO2 ABG Base Excess ABG Hemoglobin ABG Oxyhemoglobin ABG Sodium ABG Potassium ABG Chloride ABG Glucose Carboxyhemoglobin Sodium Potassium 3.5 L Chloride Carbon Dioxide BUN 29 H 27 H Creatinine Glucose 132 H 103 H POC Glucose Hemoglobin A1c Lactic Acid Calcium Phosphorus Magnesium Ferritin Total Bilirubin Direct Bilirubin AST ALT Alkaline Phosphatase Lactate Dehydrogenase Total Creatine Kinase C-Reactive Protein Total Protein Albumin 2.9 L 2.9 L Rhvxe-8-Qdyqivksc Knewe-3-Xsyvoyupm Beta Globulins Abnorm Protein Band 1 PEP Interpretation Triglycerides TSH Thyroxine (T4) Arterial Blood Glucose Arterial Blood Ionized Calcium Immunofix Electrophor Coronavirus (PCR) Positive A 01/24/21 01/24/21 01/24/21 05:50 20:20 20:20 WBC RBC Hgb Hct Plt Count Lymph % (Auto) Lymph # (Auto) Pratt # (Auto) Seg Neutrophils % Seg Neuts % (Manual) Lymphocytes % (Manual) Nucleated RBC % Seg Neutrophils # Seg Neutrophils # Man Lymphocytes # (Manual) Monocytes # (Manual) PT INR D-Dimer Heparin Anti-Xa Level ABG pH POC ABG pCO2 POC ABG pO2 ABG pO2 ABG Base Excess ABG Hemoglobin ABG Oxyhemoglobin ABG Sodium ABG Potassium ABG Chloride ABG Glucose Carboxyhemoglobin Sodium 148 H Potassium 5.3 H D Chloride 109.3 H Carbon Dioxide BUN 26 H Creatinine 0.7 L Glucose 130 H POC Glucose Hemoglobin A1c Lactic Acid Calcium Phosphorus Magnesium Ferritin 1031.0 H Total Bilirubin Direct Bilirubin AST 45 H ALT Alkaline Phosphatase Lactate Dehydrogenase 1511 H Total Creatine Kinase C-Reactive Protein 12.00 H Total Protein Albumin 2.9 L Rniae-9-Wiewvenkd Iqfge-9-Kjfrrftyz Beta Globulins Abnorm Protein Band 1 PEP Interpretation Triglycerides TSH Thyroxine (T4) Arterial Blood Glucose Arterial Blood Ionized Calcium Immunofix Electrophor Coronavirus (PCR) 01/24/21 01/25/21 01/25/21 20:20 06:22 06:22 WBC RBC Hgb Hct Plt Count Lymph % (Auto) Lymph # (Auto) Pratt # (Auto) Seg Neutrophils % Seg Neuts % (Manual) Lymphocytes % (Manual) Nucleated RBC % Seg Neutrophils # Seg Neutrophils # Man Lymphocytes # (Manual) Monocytes # (Manual) PT INR D-Dimer > 74453 H > 19743 H Heparin Anti-Xa Level ABG pH POC ABG pCO2 POC ABG pO2 ABG pO2 ABG Base Excess ABG Hemoglobin ABG Oxyhemoglobin ABG Sodium ABG Potassium ABG Chloride ABG Glucose Carboxyhemoglobin Sodium 153 H Potassium 3.4 L D Chloride 116.1 H Carbon Dioxide 21 L BUN 27 H Creatinine Glucose 133 H POC Glucose Hemoglobin A1c Lactic Acid Calcium Phosphorus Magnesium Ferritin Total Bilirubin 1.30 H Direct Bilirubin AST 50 H ALT Alkaline Phosphatase 159 H Lactate Dehydrogenase Total Creatine Kinase C-Reactive Protein Total Protein Albumin 2.9 L Sbazm-9-Fztyhjjjz Cmaio-1-Sryjostyv Beta Globulins Abnorm Protein Band 1 PEP Interpretation Triglycerides TSH Thyroxine (T4) Arterial Blood Glucose Arterial Blood Ionized Calcium Immunofix Electrophor Coronavirus (PCR) 01/25/21 01/25/21 01/25/21 06:22 09:35 11:25 WBC RBC Hgb Hct Plt Count Lymph % (Auto) Lymph # (Auto) [place]att # (Auto) Seg Neutrophils % Seg Neuts % (Manual) Lymphocytes % (Manual) Nucleated RBC % Seg Neutrophils # Seg Neutrophils # Man Lymphocytes # (Manual) Monocytes # (Manual) PT INR D-Dimer Heparin Anti-Xa Level ABG pH 7.453 H 7.228 L POC ABG pCO2 60.0 H POC ABG pO2 44.9 L 111.7 H ABG pO2 ABG Base Excess ABG Hemoglobin ABG Oxyhemoglobin 81.4 L ABG Sodium 153.1 H 150.9 H ABG Potassium 3.3 L ABG Chloride 116.0 H 117.0 H ABG Glucose 151 H 155 H Carboxyhemoglobin Sodium Potassium Chloride Carbon Dioxide BUN Creatinine Glucose POC Glucose Hemoglobin A1c Lactic Acid Calcium Phosphorus Magnesium Ferritin Total Bilirubin Direct Bilirubin AST ALT Alkaline Phosphatase Lactate Dehydrogenase Total Creatine Kinase C-Reactive Protein 16.80 H Total Protein Albumin Aqbfk-5-Xgxdpwqyn Veclo-7-Cpgduugoo Beta Globulins Abnorm Protein Band 1 PEP Interpretation Triglycerides TSH Thyroxine (T4) Arterial Blood Glucose 151 H 155 H Arterial Blood Ionized Calcium Immunofix Electrophor Coronavirus (PCR) 01/25/21 01/26/21 01/26/21 21:00 07:32 07:39 WBC RBC Hgb Hct Plt Count Lymph % (Auto) Lymph # (Auto) Pratt # (Auto) Seg Neutrophils % Seg Neuts % (Manual) Lymphocytes % (Manual) Nucleated RBC % Seg Neutrophils # Seg Neutrophils # Man Lymphocytes # (Manual) Monocytes # (Manual) PT INR D-Dimer Heparin Anti-Xa Level ABG pH POC ABG pCO2 POC ABG pO2 68.5 L ABG pO2 ABG Base Excess ABG Hemoglobin ABG Oxyhemoglobin 91.3 L ABG Sodium 151.9 H ABG Potassium ABG Chloride 117.0 H ABG Glucose 140 H Carboxyhemoglobin Sodium 151 H Potassium Chloride 116.7 H Carbon Dioxide 20 L BUN 59 H Creatinine 3.4 H D Glucose 121 H POC Glucose Hemoglobin A1c Lactic Acid Calcium Phosphorus Magnesium Ferritin 1921.0 H Total Bilirubin Direct Bilirubin AST 45 H ALT Alkaline Phosphatase 137 H Lactate Dehydrogenase 1559 H Total Creatine Kinase C-Reactive Protein 20.90 H Total Protein Albumin 2.3 L Uushn-9-Mftxarjqn Zufze-3-Ewuisgpvw Beta Globulins Abnorm Protein Band 1 PEP Interpretation Triglycerides TSH Thyroxine (T4) Arterial Blood Glucose 140 H Arterial Blood Ionized Calcium Immunofix Electrophor Coronavirus (PCR) 01/26/21 01/26/21 01/26/21 08:30 17:55 20:39 WBC RBC Hgb Hct Plt Count Lymph % (Auto) Lymph # (Auto) Pratt # (Auto) Seg Neutrophils % Seg Neuts % (Manual) Lymphocytes % (Manual) Nucleated RBC % Seg Neutrophils # Seg Neutrophils # Man Lymphocytes # (Manual) Monocytes # (Manual) PT INR D-Dimer Heparin Anti-Xa Level ABG pH 7.287 L POC ABG pCO2 POC ABG pO2 ABG pO2 124.5 H ABG Base Excess -5.0 L ABG Hemoglobin ABG Oxyhemoglobin ABG Sodium ABG Potassium ABG Chloride ABG Glucose Carboxyhemoglobin Sodium 152 H Potassium 6.0 H D Chloride 117.2 H Carbon Dioxide 15 L BUN 80 H Creatinine 5.6 H D Glucose 156 H POC Glucose 141 H Hemoglobin A1c Lactic Acid Calcium 7.4 L Phosphorus Magnesium Ferritin Total Bilirubin Direct Bilirubin AST ALT Alkaline Phosphatase Lactate Dehydrogenase Total Creatine Kinase C-Reactive Protein Total Protein Albumin Gvwgy-3-Wpyzmrfby Ogsva-1-Orjutdkkz Beta Globulins Abnorm Protein Band 1 PEP Interpretation Triglycerides TSH Thyroxine (T4) Arterial Blood Glucose Arterial Blood Ionized Calcium Immunofix Electrophor Coronavirus (PCR) 01/26/21 01/27/21 01/27/21 23:14 02:55 05:00 WBC RBC Hgb Hct Plt Count Lymph % (Auto) Lymph # (Auto) [place]att # (Auto) Seg Neutrophils % Seg Neuts % (Manual) Lymphocytes % (Manual) Nucleated RBC % Seg Neutrophils # Seg Neutrophils # Man Lymphocytes # (Manual) Monocytes # (Manual) PT INR D-Dimer Heparin Anti-Xa Level ABG pH 7.215 L POC ABG pCO2 48.9 H POC ABG pO2 143.3 H ABG pO2 ABG Base Excess ABG Hemoglobin ABG Oxyhemoglobin ABG Sodium 150.0 H ABG Potassium 5.0 H ABG Chloride 118.0 H ABG Glucose 180 H Carboxyhemoglobin Sodium 154 H Potassium 5.3 H Chloride 117.2 H Carbon Dioxide 19 L BUN 92 H Creatinine 6.4 H Glucose 175 H POC Glucose 148 H Hemoglobin A1c Lactic Acid Calcium 7.9 L Phosphorus Magnesium Ferritin Total Bilirubin Direct Bilirubin AST ALT Alkaline Phosphatase Lactate Dehydrogenase Total Creatine Kinase C-Reactive Protein Total Protein Albumin Hwvvp-0-Irnlckffw Plemc-0-Qcneyvxnc Beta Globulins Abnorm Protein Band 1 PEP Interpretation Triglycerides TSH Thyroxine (T4) Arterial Blood Glucose 180 H Arterial Blood Ionized Calcium 4.5 L Immunofix Electrophor Coronavirus (PCR) 01/27/21 01/27/21 01/27/21 05:00 05:14 11:42 WBC RBC Hgb Hct Plt Count Lymph % (Auto) Lymph # (Auto) Pratt # (Auto) Seg Neutrophils % Seg Neuts % (Manual) Lymphocytes % (Manual) Nucleated RBC % Seg Neutrophils # Seg Neutrophils # Man Lymphocytes # (Manual) Monocytes # (Manual) PT INR D-Dimer Heparin Anti-Xa Level ABG pH POC ABG pCO2 POC ABG pO2 ABG pO2 ABG Base Excess ABG Hemoglobin ABG Oxyhemoglobin ABG Sodium ABG Potassium ABG Chloride ABG Glucose Carboxyhemoglobin Sodium Potassium Chloride Carbon Dioxide BUN Creatinine Glucose POC Glucose 159 H 171 H Hemoglobin A1c Lactic Acid Calcium Phosphorus Magnesium Ferritin Total Bilirubin Direct Bilirubin AST ALT Alkaline Phosphatase Lactate Dehydrogenase Total Creatine Kinase 258 H C-Reactive Protein Total Protein Albumin Zdvsx-1-Rnyseafjl Vuyrf-9-Fubnrlvim Beta Globulins Abnorm Protein Band 1 PEP Interpretation Triglycerides TSH Thyroxine (T4) Arterial Blood Glucose Arterial Blood Ionized Calcium Immunofix Electrophor Coronavirus (PCR) 01/27/21 01/27/21 01/27/21 11:55 11:55 18:00 WBC RBC Hgb Hct Plt Count Lymph % (Auto) Lymph # (Auto) Pratt # (Auto) Seg Neutrophils % Seg Neuts % (Manual) Lymphocytes % (Manual) Nucleated RBC % Seg Neutrophils # Seg Neutrophils # Man Lymphocytes # (Manual) Monocytes # (Manual) PT INR D-Dimer Heparin Anti-Xa Level ABG pH POC ABG pCO2 POC ABG pO2 ABG pO2 ABG Base Excess ABG Hemoglobin ABG Oxyhemoglobin ABG Sodium ABG Potassium ABG Chloride ABG Glucose Carboxyhemoglobin Sodium Potassium Chloride Carbon Dioxide BUN Creatinine Glucose POC Glucose 185 H Hemoglobin A1c Lactic Acid Calcium Phosphorus Magnesium Ferritin Total Bilirubin Direct Bilirubin AST ALT Alkaline Phosphatase Lactate Dehydrogenase Total Creatine Kinase C-Reactive Protein Total Protein Albumin 2.5 L Ihokv-4-Yadwekyrw 0.7 H Dpqeh-2-Gpaqmlftz 1.2 H Beta Globulins 0.7 H Abnorm Protein Band 1 0.5 H PEP Interpretation see below H Triglycerides TSH Thyroxine (T4) Arterial Blood Glucose Arterial Blood Ionized Calcium Immunofix Electrophor see below H Coronavirus (PCR) 01/28/21 01/28/21 01/28/21 04:00 04:00 10:03 WBC RBC Hgb Hct Plt Count 104 L Lymph % (Auto) Lymph # (Auto) Pratt # (Auto) Seg Neutrophils % Seg Neuts % (Manual) Lymphocytes % (Manual) Nucleated RBC % Seg Neutrophils # Seg Neutrophils # Man Lymphocytes # (Manual) Monocytes # (Manual) PT INR D-Dimer Heparin Anti-Xa Level ABG pH 7.272 L POC ABG pCO2 48.4 H POC ABG pO2 ABG pO2 ABG Base Excess ABG Hemoglobin ABG Oxyhemoglobin ABG Sodium ABG Potassium ABG Chloride ABG Glucose 174 H Carboxyhemoglobin Sodium Potassium Chloride Carbon Dioxide BUN Creatinine Glucose POC Glucose Hemoglobin A1c Lactic Acid Calcium Phosphorus Magnesium Ferritin Total Bilirubin Direct Bilirubin AST ALT Alkaline Phosphatase Lactate Dehydrogenase Total Creatine Kinase C-Reactive Protein Total Protein Albumin Dokrh-9-Tigmevpny Bjpvl-1-Tbfpsywlq Beta Globulins Abnorm Protein Band 1 PEP Interpretation Triglycerides 369 H TSH Thyroxine (T4) Arterial Blood Glucose 174 H Arterial Blood Ionized Calcium 4.3 L Immunofix Electrophor Coronavirus (PCR) 01/28/21 01/28/21 01/28/21 10:03 10:03 10:03 WBC RBC Hgb Hct Plt Count Lymph % (Auto) Lymph # (Auto) Pratt # (Auto) Seg Neutrophils % Seg Neuts % (Manual) Lymphocytes % (Manual) Nucleated RBC % Seg Neutrophils # Seg Neutrophils # Man Lymphocytes # (Manual) Monocytes # (Manual) PT 17.3 H INR 1.36 H D-Dimer Heparin Anti-Xa Level ABG pH POC ABG pCO2 POC ABG pO2 ABG pO2 ABG Base Excess ABG Hemoglobin ABG Oxyhemoglobin ABG Sodium ABG Potassium ABG Chloride ABG Glucose Carboxyhemoglobin Sodium Potassium 5.2 H Chloride Carbon Dioxide BUN 69 H Creatinine 5.6 H Glucose 220 H POC Glucose Hemoglobin A1c Lactic Acid Calcium 7.7 L Phosphorus Magnesium Ferritin Total Bilirubin Direct Bilirubin AST ALT Alkaline Phosphatase Lactate Dehydrogenase Total Creatine Kinase C-Reactive Protein Total Protein Albumin Kzesm-9-Xyxhtozwf Mzhfx-8-Nlevhfwdj Beta Globulins Abnorm Protein Band 1 PEP Interpretation Triglycerides TSH 0.013 L Thyroxine (T4) Arterial Blood Glucose Arterial Blood Ionized Calcium Immunofix Electrophor Coronavirus (PCR) 01/28/21 01/28/21 01/28/21 11:34 13:40 15:31 WBC RBC Hgb Hct Plt Count Lymph % (Auto) Lymph # (Auto) [place]att # (Auto) Seg Neutrophils % Seg Neuts % (Manual) Lymphocytes % (Manual) Nucleated RBC % Seg Neutrophils # Seg Neutrophils # Man Lymphocytes # (Manual) Monocytes # (Manual) PT INR D-Dimer Heparin Anti-Xa Level 1.21 H ABG pH POC ABG pCO2 POC ABG pO2 ABG pO2 ABG Base Excess ABG Hemoglobin ABG Oxyhemoglobin ABG Sodium ABG Potassium ABG Chloride ABG Glucose Carboxyhemoglobin Sodium Potassium Chloride Carbon Dioxide BUN Creatinine Glucose POC Glucose 221 H Hemoglobin A1c Lactic Acid Calcium Phosphorus Magnesium 2.50 H Ferritin Total Bilirubin Direct Bilirubin AST ALT Alkaline Phosphatase Lactate Dehydrogenase Total Creatine Kinase C-Reactive Protein Total Protein Albumin Dxbzq-6-Cyamkzrno Dozvv-4-Lqdmevayi Beta Globulins Abnorm Protein Band 1 PEP Interpretation Triglycerides TSH Thyroxine (T4) Arterial Blood Glucose Arterial Blood Ionized Calcium Immunofix Electrophor Coronavirus (PCR) 01/28/21 01/29/21 01/29/21 18:02 04:00 04:30 WBC RBC Hgb Hct Plt Count Lymph % (Auto) Lymph # (Auto) Pratt # (Auto) Seg Neutrophils % Seg Neuts % (Manual) Lymphocytes % (Manual) Nucleated RBC % Seg Neutrophils # Seg Neutrophils # Man Lymphocytes # (Manual) Monocytes # (Manual) PT INR D-Dimer Heparin Anti-Xa Level 0.81 H ABG pH 7.229 L POC ABG pCO2 48.8 H POC ABG pO2 ABG pO2 ABG Base Excess ABG Hemoglobin ABG Oxyhemoglobin ABG Sodium 135.3 L ABG Potassium 5.2 H ABG Chloride ABG Glucose 264 H Carboxyhemoglobin Sodium Potassium Chloride Carbon Dioxide BUN Creatinine Glucose POC Glucose 215 H Hemoglobin A1c Lactic Acid Calcium Phosphorus Magnesium Ferritin Total Bilirubin Direct Bilirubin AST ALT Alkaline Phosphatase Lactate Dehydrogenase Total Creatine Kinase C-Reactive Protein Total Protein Albumin Jfuzi-8-Jgybszgxw Xqwmr-5-Avhmgfkwy Beta Globulins Abnorm Protein Band 1 PEP Interpretation Triglycerides TSH Thyroxine (T4) Arterial Blood Glucose 264 H Arterial Blood Ionized Calcium 4.0 L Immunofix Electrophor Coronavirus (PCR) 01/29/21 01/29/21 01/29/21 13:23 17:56 23:12 WBC RBC Hgb Hct Plt Count Lymph % (Auto) Lymph # (Auto) Pratt # (Auto) Seg Neutrophils % Seg Neuts % (Manual) Lymphocytes % (Manual) Nucleated RBC % Seg Neutrophils # Seg Neutrophils # Man Lymphocytes # (Manual) Monocytes # (Manual) PT INR D-Dimer Heparin Anti-Xa Level ABG pH POC ABG pCO2 POC ABG pO2 ABG pO2 ABG Base Excess ABG Hemoglobin ABG Oxyhemoglobin ABG Sodium ABG Potassium ABG Chloride ABG Glucose Carboxyhemoglobin Sodium Potassium Chloride Carbon Dioxide BUN Creatinine Glucose POC Glucose 198 H 200 H 172 H Hemoglobin A1c Lactic Acid Calcium Phosphorus Magnesium Ferritin Total Bilirubin Direct Bilirubin AST ALT Alkaline Phosphatase Lactate Dehydrogenase Total Creatine Kinase C-Reactive Protein Total Protein Albumin Laqxr-6-Wqmzokdjn Ieljs-6-Rhehizloj Beta Globulins Abnorm Protein Band 1 PEP Interpretation Triglycerides TSH Thyroxine (T4) Arterial Blood Glucose Arterial Blood Ionized Calcium Immunofix Electrophor Coronavirus (PCR) 01/29/21 01/30/21 01/30/21 Unknown 04:00 04:05 WBC RBC Hgb Hct Plt Count Lymph % (Auto) Lymph # (Auto) [place] # (Auto) Seg Neutrophils % Seg Neuts % (Manual) Lymphocytes % (Manual) Nucleated RBC % Seg Neutrophils # Seg Neutrophils # Man Lymphocytes # (Manual) Monocytes # (Manual) PT INR D-Dimer Heparin Anti-Xa Level 0.85 H ABG pH 7.304 L 7.288 L POC ABG pCO2 49.7 H POC ABG pO2 112.8 H 169.7 H ABG pO2 ABG Base Excess ABG Hemoglobin ABG Oxyhemoglobin 98.4 H ABG Sodium 132.5 L ABG Potassium 5.2 H 4.8 H ABG Chloride ABG Glucose 160 H 196 H Carboxyhemoglobin Sodium Potassium Chloride Carbon Dioxide BUN Creatinine Glucose POC Glucose Hemoglobin A1c Lactic Acid Calcium Phosphorus Magnesium Ferritin Total Bilirubin Direct Bilirubin AST ALT Alkaline Phosphatase Lactate Dehydrogenase Total Creatine Kinase C-Reactive Protein Total Protein Albumin Udfxz-4-Mlbthxrww Zssmn-4-Irelotthr Beta Globulins Abnorm Protein Band 1 PEP Interpretation Triglycerides TSH Thyroxine (T4) Arterial Blood Glucose 160 H 196 H Arterial Blood Ionized Calcium 4.1 L 4.0 L Immunofix Electrophor Coronavirus (PCR) 01/30/21 01/30/21 01/30/21 05:00 05:00 05:32 WBC 27.4 H RBC Hgb 11.6 L Hct 34.8 L Plt Count 126 L Lymph % (Auto) Lymph # (Auto) [place] # (Auto) Seg Neutrophils % Seg Neuts % (Manual) Lymphocytes % (Manual) Nucleated RBC % Seg Neutrophils # Seg Neutrophils # Man Lymphocytes # (Manual) Monocytes # (Manual) PT INR D-Dimer Heparin Anti-Xa Level ABG pH POC ABG pCO2 POC ABG pO2 ABG pO2 ABG Base Excess ABG Hemoglobin ABG Oxyhemoglobin ABG Sodium ABG Potassium ABG Chloride ABG Glucose Carboxyhemoglobin Sodium 136 L Potassium Chloride 97.4 L Carbon Dioxide BUN 75 H Creatinine 5.4 H Glucose 184 H POC Glucose 169 H Hemoglobin A1c Lactic Acid Calcium 7.4 L Phosphorus 8.60 H Magnesium 2.40 H Ferritin Total Bilirubin Direct Bilirubin AST ALT Alkaline Phosphatase Lactate Dehydrogenase Total Creatine Kinase C-Reactive Protein Total Protein Albumin Yxqdf-3-Wapeetjmz Eozky-5-Nhzgzbffl Beta Globulins Abnorm Protein Band 1 PEP Interpretation Triglycerides TSH Thyroxine (T4) Arterial Blood Glucose Arterial Blood Ionized Calcium Immunofix Electrophor Coronavirus (PCR) 01/30/21 01/30/21 01/30/21 11:23 15:35 18:13 WBC RBC Hgb Hct Plt Count Lymph % (Auto) Lymph # (Auto) [place] # (Auto) Seg Neutrophils % Seg Neuts % (Manual) Lymphocytes % (Manual) Nucleated RBC % Seg Neutrophils # Seg Neutrophils # Man Lymphocytes # (Manual) Monocytes # (Manual) PT INR D-Dimer Heparin Anti-Xa Level ABG pH POC ABG pCO2 POC ABG pO2 ABG pO2 ABG Base Excess ABG Hemoglobin ABG Oxyhemoglobin ABG Sodium ABG Potassium ABG Chloride ABG Glucose Carboxyhemoglobin Sodium Potassium Chloride Carbon Dioxide BUN Creatinine Glucose POC Glucose 177 H 123 H Hemoglobin A1c Lactic Acid Calcium Phosphorus Magnesium Ferritin Total Bilirubin Direct Bilirubin AST ALT Alkaline Phosphatase Lactate Dehydrogenase Total Creatine Kinase C-Reactive Protein Total Protein Albumin Snuam-9-Rhimivsyk Noqda-2-Ciibdowqg Beta Globulins Abnorm Protein Band 1 PEP Interpretation Triglycerides TSH Thyroxine (T4) 3.3 L Arterial Blood Glucose Arterial Blood Ionized Calcium Immunofix Electrophor Coronavirus (PCR) 01/30/21 01/31/21 01/31/21 23:49 03:30 03:30 WBC 31.3 H RBC Hgb 11.4 L Hct 34.6 L Plt Count Lymph % (Auto) Lymph # (Auto) [place] # (Auto) Seg Neutrophils % Seg Neuts % (Manual) Lymphocytes % (Manual) Nucleated RBC % Seg Neutrophils # Seg Neutrophils # Man Lymphocytes # (Manual) Monocytes # (Manual) PT INR D-Dimer Heparin Anti-Xa Level ABG pH POC ABG pCO2 POC ABG pO2 ABG pO2 ABG Base Excess ABG Hemoglobin ABG Oxyhemoglobin ABG Sodium ABG Potassium ABG Chloride ABG Glucose Carboxyhemoglobin Sodium Potassium 5.3 H Chloride Carbon Dioxide BUN 111 H Creatinine 6.8 H Glucose 143 H POC Glucose 143 H Hemoglobin A1c Lactic Acid Calcium 7.3 L Phosphorus Magnesium Ferritin Total Bilirubin 1.70 H Direct Bilirubin AST 57 H ALT Alkaline Phosphatase Lactate Dehydrogenase Total Creatine Kinase C-Reactive Protein Total Protein 5.5 L D Albumin 2.5 L Dkwcp-0-Xiwoxyzej Vieqs-5-Hzxtmzczy Beta Globulins Abnorm Protein Band 1 PEP Interpretation Triglycerides TSH Thyroxine (T4) Arterial Blood Glucose Arterial Blood Ionized Calcium Immunofix Electrophor Coronavirus (PCR) 01/31/21 01/31/21 01/31/21 03:30 04:54 12:00 WBC RBC Hgb Hct Plt Count Lymph % (Auto) Lymph # (Auto) [place] # (Auto) Seg Neutrophils % Seg Neuts % (Manual) Lymphocytes % (Manual) Nucleated RBC % Seg Neutrophils # Seg Neutrophils # Man Lymphocytes # (Manual) Monocytes # (Manual) PT INR D-Dimer Heparin Anti-Xa Level ABG pH POC ABG pCO2 POC ABG pO2 ABG pO2 ABG Base Excess ABG Hemoglobin ABG Oxyhemoglobin ABG Sodium ABG Potassium ABG Chloride ABG Glucose Carboxyhemoglobin Sodium Potassium Chloride Carbon Dioxide BUN Creatinine Glucose POC Glucose 133 H 152 H Hemoglobin A1c Lactic Acid Calcium Phosphorus Magnesium Ferritin Total Bilirubin 1.60 H Direct Bilirubin 1.6 H AST 57 H ALT Alkaline Phosphatase Lactate Dehydrogenase Total Creatine Kinase C-Reactive Protein Total Protein 5.5 L Albumin 2.5 L Grpht-1-Yljhxojyq Nydmv-2-Xpthjrpyp Beta Globulins Abnorm Protein Band 1 PEP Interpretation Triglycerides TSH Thyroxine (T4) Arterial Blood Glucose Arterial Blood Ionized Calcium Immunofix Electrophor Coronavirus (PCR) 01/31/21 01/31/21 02/01/21 17:19 23:46 00:25 WBC RBC Hgb Hct Plt Count Lymph % (Auto) Lymph # (Auto) [place] # (Auto) Seg Neutrophils % Seg Neuts % (Manual) Lymphocytes % (Manual) Nucleated RBC % Seg Neutrophils # Seg Neutrophils # Man Lymphocytes # (Manual) Monocytes # (Manual) PT INR D-Dimer Heparin Anti-Xa Level 0.19 L ABG pH POC ABG pCO2 POC ABG pO2 ABG pO2 ABG Base Excess ABG Hemoglobin ABG Oxyhemoglobin ABG Sodium ABG Potassium ABG Chloride ABG Glucose Carboxyhemoglobin Sodium Potassium Chloride Carbon Dioxide BUN Creatinine Glucose POC Glucose 142 H 140 H Hemoglobin A1c Lactic Acid Calcium Phosphorus Magnesium Ferritin Total Bilirubin Direct Bilirubin AST ALT Alkaline Phosphatase Lactate Dehydrogenase Total Creatine Kinase C-Reactive Protein Total Protein Albumin Ifrfu-8-Jaugtlwpq Nmcja-8-Owtrnlcpc Beta Globulins Abnorm Protein Band 1 PEP Interpretation Triglycerides TSH Thyroxine (T4) Arterial Blood Glucose Arterial Blood Ionized Calcium Immunofix Electrophor Coronavirus (PCR) 02/01/21 02/01/21 02/01/21 03:10 04:00 04:00 WBC RBC Hgb 11.6 L Hct 34.6 L Plt Count Lymph % (Auto) Lymph # (Auto) [place] # (Auto) Seg Neutrophils % Seg Neuts % (Manual) Lymphocytes % (Manual) Nucleated RBC % Seg Neutrophils # Seg Neutrophils # Man Lymphocytes # (Manual) Monocytes # (Manual) PT INR D-Dimer Heparin Anti-Xa Level ABG pH 7.294 L POC ABG pCO2 50.8 H POC ABG pO2 77.2 L ABG pO2 ABG Base Excess ABG Hemoglobin ABG Oxyhemoglobin 92.9 L ABG Sodium 131.4 L ABG Potassium 5.2 H ABG Chloride 97.0 L ABG Glucose 158 H Carboxyhemoglobin Sodium 136 L Potassium 5.2 H Chloride 93.6 L Carbon Dioxide BUN 78 H Creatinine 5.7 H Glucose 152 H POC Glucose Hemoglobin A1c Lactic Acid Calcium 7.1 L Phosphorus Magnesium Ferritin Total Bilirubin 3.00 H Direct Bilirubin AST 117 H ALT 108 H Alkaline Phosphatase Lactate Dehydrogenase Total Creatine Kinase C-Reactive Protein Total Protein 5.6 L Albumin 2.7 L Enzdx-7-Vffywihdy Wraxj-2-Jfrexltby Beta Globulins Abnorm Protein Band 1 PEP Interpretation Triglycerides TSH Thyroxine (T4) Arterial Blood Glucose 158 H Arterial Blood Ionized Calcium 3.9 L Immunofix Electrophor Coronavirus (PCR) 02/01/21 02/01/21 02/01/21 05:36 09:15 11:42 WBC RBC Hgb Hct Plt Count Lymph % (Auto) Lymph # (Auto) [place] # (Auto) Seg Neutrophils % Seg Neuts % (Manual) Lymphocytes % (Manual) Nucleated RBC % Seg Neutrophils # Seg Neutrophils # Man Lymphocytes # (Manual) Monocytes # (Manual) PT 15.1 H INR D-Dimer Heparin Anti-Xa Level ABG pH POC ABG pCO2 POC ABG pO2 ABG pO2 ABG Base Excess ABG Hemoglobin ABG Oxyhemoglobin ABG Sodium ABG Potassium ABG Chloride ABG Glucose Carboxyhemoglobin Sodium Potassium Chloride Carbon Dioxide BUN Creatinine Glucose POC Glucose 167 H 159 H Hemoglobin A1c Lactic Acid Calcium Phosphorus Magnesium Ferritin Total Bilirubin Direct Bilirubin AST ALT Alkaline Phosphatase Lactate Dehydrogenase Total Creatine Kinase C-Reactive Protein Total Protein Albumin Inlle-1-Gwsfrmjpl Aehkh-7-Ncyjfwgox Beta Globulins Abnorm Protein Band 1 PEP Interpretation Triglycerides TSH Thyroxine (T4) Arterial Blood Glucose Arterial Blood Ionized Calcium Immunofix Electrophor Coronavirus (PCR) 02/01/21 02/01/21 02/02/21 17:28 23:06 02:58 WBC RBC Hgb Hct Plt Count Lymph % (Auto) Lymph # (Auto) [place] # (Auto) Seg Neutrophils % Seg Neuts % (Manual) Lymphocytes % (Manual) Nucleated RBC % Seg Neutrophils # Seg Neutrophils # Man Lymphocytes # (Manual) Monocytes # (Manual) PT INR D-Dimer Heparin Anti-Xa Level ABG pH 7.208 L POC ABG pCO2 58.3 H POC ABG pO2 ABG pO2 ABG Base Excess ABG Hemoglobin 11.6 L ABG Oxyhemoglobin ABG Sodium 131.4 L ABG Potassium 5.6 H ABG Chloride 97.0 L ABG Glucose 155 H Carboxyhemoglobin Sodium Potassium Chloride Carbon Dioxide BUN Creatinine Glucose POC Glucose 171 H 155 H Hemoglobin A1c Lactic Acid Calcium Phosphorus Magnesium Ferritin Total Bilirubin Direct Bilirubin AST ALT Alkaline Phosphatase Lactate Dehydrogenase Total Creatine Kinase C-Reactive Protein Total Protein Albumin Ljsgs-6-Oiuhbdavg Zfehe-2-Hqkuydcym Beta Globulins Abnorm Protein Band 1 PEP Interpretation Triglycerides TSH Thyroxine (T4) Arterial Blood Glucose 155 H Arterial Blood Ionized Calcium 3.9 L Immunofix Electrophor Coronavirus (PCR) 02/02/21 02/02/21 02/02/21 05:06 11:10 Unknown WBC RBC Hgb Hct Plt Count Lymph % (Auto) Lymph # (Auto) [place] # (Auto) Seg Neutrophils % Seg Neuts % (Manual) Lymphocytes % (Manual) Nucleated RBC % Seg Neutrophils # Seg Neutrophils # Man Lymphocytes # (Manual) Monocytes # (Manual) PT INR D-Dimer Heparin Anti-Xa Level ABG pH POC ABG pCO2 POC ABG pO2 ABG pO2 ABG Base Excess ABG Hemoglobin ABG Oxyhemoglobin ABG Sodium ABG Potassium ABG Chloride ABG Glucose Carboxyhemoglobin Sodium Potassium 5.9 H Chloride 95.0 L Carbon Dioxide BUN 118 H Creatinine 7.2 H Glucose 152 H POC Glucose 134 H 179 H Hemoglobin A1c Lactic Acid Calcium 7.1 L Phosphorus Magnesium Ferritin Total Bilirubin 2.90 H Direct Bilirubin AST 134 H ALT 169 H Alkaline Phosphatase Lactate Dehydrogenase Total Creatine Kinase C-Reactive Protein Total Protein 5.0 L Albumin 2.5 L Osruq-2-Hiugpeevs Smkjd-7-Dfzswyeql Beta Globulins Abnorm Protein Band 1 PEP Interpretation Triglycerides TSH Thyroxine (T4) Arterial Blood Glucose Arterial Blood Ionized Calcium Immunofix Electrophor Coronavirus (PCR) 02/02/21 02/02/21 Unknown Unknown WBC 39.4 H RBC Hgb 10.7 L Hct 32.3 L Plt Count Lymph % (Auto) Lymph # (Auto) [place] # (Auto) Seg Neutrophils % Seg Neuts % (Manual) Lymphocytes % (Manual) Nucleated RBC % Seg Neutrophils # Seg Neutrophils # Man Lymphocytes # (Manual) Monocytes # (Manual) PT 15.1 H INR D-Dimer Heparin Anti-Xa Level ABG pH POC ABG pCO2 POC ABG pO2 ABG pO2 ABG Base Excess ABG Hemoglobin ABG Oxyhemoglobin ABG Sodium ABG Potassium ABG Chloride ABG Glucose Carboxyhemoglobin Sodium Potassium Chloride Carbon Dioxide BUN Creatinine Glucose POC Glucose Hemoglobin A1c Lactic Acid Calcium Phosphorus Magnesium Ferritin Total Bilirubin Direct Bilirubin AST ALT Alkaline Phosphatase Lactate Dehydrogenase Total Creatine Kinase C-Reactive Protein Total Protein Albumin Zbpvq-3-Dtevjoppk Qthwl-2-Pnanivzws Beta Globulins Abnorm Protein Band 1 PEP Interpretation Triglycerides TSH Thyroxine (T4) Arterial Blood Glucose Arterial Blood Ionized Calcium Immunofix Electrophor Coronavirus (PCR) Chest x-ray: other (none today) Allied health notes reviewed: nursing
[2021-02-02] MEDS ORDERED: VANCOMYCIN PHARMACY TO DOSE IV SCH (14:00)
[2021-02-02] MEDS ORDERED: LIDOCAINE (2%) 20 MG/1 ML VIAL 20 ML MDV INFILTRATI ONE (15:38)
[2021-02-02] MEDS: CEFEPIME/NS 1 GM/100 ML 1 GM/100 ML BAG IV SCH (17:08)
--- NOTE | 2021-02-02 17:38 | Progress Note ---
<CHAVEZANGIE OmarNat - Last Filed: 02/02/21 17:42> Assessment and Plan Assessment and plan: This is a 55-year-old male with morbid obesity, former nicotine abuse and venous insufficiency who was admitted as a COVID-19 PUI with acute hypoxic respiratory failure, sepsis, multifocal pneumonia Neuro: Acute metabolic encephalopathy -Off sedation for several days unfortunately requiring 4 primary supports and unable to get imaging -EEG completed and read pending -Avoid delirium -Patient is slowly responsive Cardio: A. fib with RVR -Cardiology consulted, appreciate recommendations -Patient transitioned from IV amiodarone to p.o. amiodarone -Echocardiogram completed results -Blood pressure monitor per protocol -Wean vasopressor support for MAP goal greater than 65 Respiratory: Acute hypoxic respiratory failure, Bilateral pneumothorax -Intubated -CCM consulted, patient recommendations -AM vent settings: AC TV 500/rare 30/PEEP 14/90% FiO2 -ABG and CXR reviewed -Surgery consulted for chest tube -Bilateral chest tubes to wall suction placed by surgery -Serial ABG and CXR -VAP bundle -Continuous SPO2 monitoring GI: MO, malnutrition, transaminitis -pt is on trickle feeds->RN to advance slowly -Per RN pt had large BM -Reglan 5 mg every 6 -BR: Senokot -01/30 KUB reviewed -Renal ultrasound reviewed-> shows only hepatic steatosis -02/01 lipase 46 -Trend LFTs : Acute kidney injury secondary to vasomotor nephropathy, hyperkalemia -Nephrology consulted, appreciate recommendations -Patient initiated on hemodialysis 01/27 -HD per nephrology -Strict intake and output -arana in place -Avoid nephrotoxic medications-renally dose medications -trend BMP -Past 24 hours +666 Endo: NAD -SSI -Accu-Cheks every 6 -Avoid hypoglycemia ID: COVID-19 pneumonia, septic shock, bilateral pneumonia,? Mold in sputum -Infectious disease consulted, appreciate recommendations (signed off 01/31) -Contact/droplet isolation -Dexamethasone for 10 days -Actemra administered 01/26 -P.o. voriconazole given steroids and Actemra -Per infectious disease: Avoid ABLC given renal failure -Follow-up ID labs -Trend COVID-19 inflammatory markers -S/p ABX therapy for pneumonia -Monitor WBC and fever curve -Follow blood cultures Heme: Elevated D-dimer, leukocytosis -Anticoagulation with heparin drip -Trend CBC -Transfuse for hemoglobin less than 7 -Lower extremity Doppler ultrasound shows no evidence of DVT The high probability of a clinically significant, sudden or life threatening deterioration of the [multi] system(s) required my full and direct attention, intervention and personal management. The aggregate critical care time was [60] minutes. This time is in addition to time spent performing reported procedures but includes the following: [x] Data Review and interpretation [x] Patient assessment and monitoring of vital signs [x] Documentation [x] Medication orders and management Disposition Plan: icu Total Time Spent with Patient (Minutes): 60 History Interval history: This is a 55-year-old male with morbid obesity venous insufficiency, former smoker who presented to the emergency department on 01/22 for SOB x4 days prior to admission and patient was diagnosed with COVID-19 at OSH on 01/16 after the patient was discharged. Patient had worsening symptoms therefore he presented to [facility]. Patient had fever, chills, headache, cough, shortness of breath, body aches, loss of taste and smell. Upon arrival of EMS patient was saturating at 60% on room air and received albuterol, mag nesium, Solu-Medrol. Patient remained hypoxic in spite of being on a nonrebreather and was started on a BiPAP in the emergency department. Patient was admitted to the hospitalist service with consults to ID, pulmonology and later nephrology and cardiology. Patient admitted for acute hypoxic respiratory failure, sepsis, multifocal pneumonia, PUI for COVID-19. 02/02: vent changes made by [facility], no acute events reported overnight. A.m. CXR read as improvement to pneumothorax. No acute events reported overnight. pt has hyperkalemia today but scheduled for hd today 02/01: patient was started on trickle feeding yesterday, heparin was on hold for placement of chest tube by surgery. Today patient developed pneumothorax and chest tube was placed again by surgery at bedside. Patient tube feedings will be gradually increased to goal as tolerated. 01/31: Patient has subq air on exam, cxr shows possible apical pneumo and surgery consulted for possible chest tube placement. HD today 01/30: This morning patient is not on sedation and does not follow commands, per RN report patient does not have cough/gag. No acute events reported overnight. EEG ordered, KUB and NGT to LIS for high residuals. 01/29: Patient is in acute respiratory failure on continuous BiPAP With low saturations intermittently Patient has severe Covid pneumonia, elevated D-dimers on empiric full dose anticoagulation Not a candidate for CTA chest as patient is unstable Patient is critically ill in severe distress Patient has low saturations even on continuous BiPAP May need intubation and mechanical ventilation Vital signs noted 01/28/2021 Patient intubated Sedated Same condition On pressors Poor prognosis 01/27/2021 Patient intubated Sedated On vent protocol 01/26/2021 Patient is intubated Patient is Covid positive 01/25/2021; patient for intubation and mechanical ventilation As patient is severely hypoxemic even on continuous BiPAP 01/24: Patient is severely hypoxemic requiring continuous BiPAP, with borderline O2 sats Pulmonary critical following, stat ABG If no improvement intubate as needed Patient is elevated D-dimers, in the setting of COVID-19 morbid obesity respiratory failure requiring continuous BiPAP We will treat empirically with full dose anticoagulation, check CTA chest and lower extremity venous Doppler to rule out PE and DVT. Patient is critically ill with poor prognosis Plan of care reviewed with the patient and his nurse 01/23: We will closely monitor the patient and adjust management as needed Follow khan PCR test, consult ID if needed Hospitalist Physical - Constitutional Vitals: Temp Pulse Resp BP Pulse Ox 98.1 F 99 H 37 H 123/60 89 02/02/21 16:31 02/02/21 17:01 02/02/21 17:01 02/02/21 17:01 02/02/21 17:01 General appearance: Present: no acute distress, well-nourished, other (not responsive) - EENT Eyes: Present: PERRL (sluggish) - Neck Neck: Absent: masses or JVD, cervical LAD - Respiratory Respiratory: bilateral: diminished - Cardiovascular Rhythm: regular - Extremities Extremities: no ischemia, pulses intact, pulses symmetrical - Abdominal General gastrointestinal: soft - Integumentary Integumentary: Present: warm, dry - Psychiatric Psychiatric: other - Neurologic Neurologic: other - Allied Health Allied health notes reviewed: nursing, RT HEART Score - HEART Score Age: 45-65 Risk factors: 1-2 risk factors Troponin: < normal limit - Critical Actions Critical Actions: 0-3 pts:0.9-1.7%risk of adverse cardiac event.Candidate for discharge Results - Labs CBC & Chem 7: 02/02/21 Unknown 02/02/21 Unknown Labs: Laboratory Last Values WBC 39.4 K/mm3 (4.5-11.0) H 02/02/21 Unknown RBC 3.68 M/mm3 (3.65-5.03) 02/02/21 Unknown Hgb 10.7 gm/dl (11.8-15.2) L 02/02/21 Unknown Hct 32.3 % (35.5-45.6) L 02/02/21 Unknown MCV 88 fl (84-94) 02/02/21 Unknown MCH 29 pg (28-32) 02/02/21 Unknown MCHC 33 % (32-34) 02/02/21 Unknown RDW 14.5 % (13.2-15.2) 02/02/21 Unknown Plt Count 151 K/mm3 (140-440) 02/02/21 Unknown Lymph % (Auto) 4.4 % (13.4-35.0) L 01/23/21 05:29 [place] % (Auto) 6.4 % (0.0-7.3) 01/23/21 05:29 Lymph # (Auto) 0.8 K/mm3 (1.2-5.4) L 01/23/21 05:29 [place] # (Auto) 1.2 K/mm3 (0.0-0.8) H 01/23/21 05:29 Add Manual Diff Complete 01/22/21 11:06 Total Counted 100 01/22/21 11:06 Seg Neutrophils % 89.1 % (40.0-70.0) H 01/23/21 05:29 Seg Neuts % (Manual) 92.0 % (40.0-70.0) H 01/22/21 11:06 Band Neutrophils % 2.0 % 01/22/21 11:06 Lymphocytes % (Manual) 1.0 % (13.4-35.0) L 01/22/21 11:06 Monocytes % (Manual) 5.0 % (0.0-7.3) 01/22/21 11:06 Nucleated RBC % 1.0 % (0.0-0.9) H 01/22/21 11:06 Seg Neutrophils # 16.9 K/mm3 (1.8-7.7) H 01/23/21 05:29 Seg Neutrophils # Man 17.7 K/mm3 (1.8-7.7) H 01/22/21 11:06 Band Neutrophils # 0.4 K/mm3 01/22/21 11:06 Lymphocytes # (Manual) 0.2 K/mm3 (1.2-5.4) L 01/22/21 11:06 Abs React Lymphs (Man) 0.0 K/mm3 01/22/21 11:06 Monocytes # (Manual) 1.0 K/mm3 (0.0-0.8) H 01/22/21 11:06 Eosinophils # (Manual) 0.0 K/mm3 (0.0-0.4) 01/22/21 11:06 Basophils # (Manual) 0.0 K/mm3 (0.0-0.1) 01/22/21 11:06 Metamyelocytes # 0.0 K/mm3 01/22/21 11:06 Myelocytes # 0.0 K/mm3 01/22/21 11:06 Promyelocytes # 0.0 K/mm3 01/22/21 11:06 Blast Cells # 0.0 K/mm3 01/22/21 11:06 WBC Morphology Not Reportable 01/22/21 11:06 Hypersegmented Neuts Not Reportable 01/22/21 11:06 Hyposegmented Neuts Not Reportable 01/22/21 11:06 Hypogranular Neuts Not Reportable 01/22/21 11:06 Smudge Cells Not Reportable 01/22/21 11:06 Toxic Granulation Not Reportable 01/22/21 11:06 Toxic Vacuolation Not Reportable 01/22/21 11:06 Dohle Bodies Not Reportable 01/22/21 11:06 Pelger-Huet Anomaly Not Reportable 01/22/21 11:06 Rd Rods Not Reportable 01/22/21 11:06 Platelet Estimate Consistent w auto 01/22/21 11:06 Clumped Platelets Not Reportable 01/22/21 11:06 Plt Clumps, EDTA Not Reportable 01/22/21 11:06 Large Platelets Not Reportable 01/22/21 11:06 Giant Platelets Not Reportable 01/22/21 11:06 Platelet Satelliting Not Reportable 01/22/21 11:06 Plt Morphology Comment Not Reportable 01/22/21 11:06 RBC Morphology Normal 01/22/21 11:06 Dimorphic RBCs Not Reportable 01/22/21 11:06 Polychromasia Not Reportable 01/22/21 11:06 Hypochromasia Not Reportable 01/22/21 11:06 Poikilocytosis Not Reportable 01/22/21 11:06 Anisocytosis Not Reportable 01/22/21 11:06 Microcytosis Not Reportable 01/22/21 11:06 Macrocytosis Not Reportable 01/22/21 11:06 Spherocytes Not Reportable 01/22/21 11:06 Pappenheimer Bodies Not Reportable 01/22/21 11:06 Sickle Cells Not Reportable 01/22/21 11:06 Target Cells Not Reportable 01/22/21 11:06 Tear Drop Cells Not Reportable 01/22/21 11:06 Ovalocytes Not Reportable 01/22/21 11:06 Helmet Cells Not Reportable 01/22/21 11:06 Soliman-Bradley Bodies Not Reportable 01/22/21 11:06 [place] Rings Not Reportable 01/22/21 11:06 [place] Cells Not Reportable 01/22/21 11:06 Bite Cells Not Reportable 01/22/21 11:06 Crenated Cell Not Reportable 01/22/21 11:06 Elliptocytes Not Reportable 01/22/21 11:06 Acanthocytes (Spur) Not Reportable 01/22/21 11:06 Rouleaux Not Reportable 01/22/21 11:06 Hemoglobin C Crystals Not Reportable 01/22/21 11:06 Schistocytes Not Reportable 01/22/21 11:06 Malaria parasites Not Reportable 01/22/21 11:06 Lloyd Bodies Not Reportable 01/22/21 11:06 Hem Pathologist Commnt No 01/22/21 11:06 PT 15.1 Sec. (12.2-14.9) H 02/02/21 Unknown INR 1.13 (0.87-1.13) 02/02/21 Unknown APTT 29.2 Sec. (24.2-36.6) 01/28/21 10:03 D-Dimer > 86488 ng/mlDDU (0-234) H 01/25/21 06:22 Heparin Anti-Xa Level 0.10 U.I./ml (0.3-0.7) L 02/02/21 16:22 ABG pH 7.208 (7.320-7.450) L 02/02/21 02:58 POC ABG pCO2 58.3 mmHg (32.0-48.0) H 02/02/21 02:58 ABG pCO2 46.6 mm Hg 01/26/21 08:30 POC ABG pO2 91.1 mmHg (83-108) 02/02/21 02:58 ABG pO2 124.5 mm Hg (80.0-90.0) H 01/26/21 08:30 POC ABG HCO3 22.7 02/02/21 02:58 ABG HCO3 21.7 mmol/L (20.0-26.0) 01/26/21 08:30 ABG O2 Saturation 95.8 (0-100) 02/02/21 02:58 ABG O2 Content 19.4 (0.0-44) 01/26/21 08:30 POC ABG Base Excess -5.7 02/02/21 02:58 ABG Base Excess -5.0 mmol/L (-2.0-3.0) L 01/26/21 08:30 ABG Hemoglobin 11.6 (12.0-17.5) L 02/02/21 02:58 ABG Oxyhemoglobin 94.6 (94-98) 02/02/21 02:58 ABG Carboxyhemoglobin 1.2 % (0.0-5.0) 01/26/21 08:30 ABG Methemoglobin 0.1 (0.0-1.5) 02/02/21 02:58 ABG Sodium 131.4 mmol/L (136.0-145.0) L 02/02/21 02:58 ABG Potassium 5.6 mmol/L (3.40-4.50) H 02/02/21 02:58 ABG Chloride 97.0 mmol/L (98-107) L 02/02/21 02:58 ABG Glucose 155 mg/dL (65-95) H 02/02/21 02:58 Oxyhemoglobin 96.2 % (95.0-99.0) 01/26/21 08:30 Carboxyhemoglobin 1.2 (0.5-1.5) 02/02/21 02:58 FiO2 100 % 01/26/21 08:30 FiO2 % 100.0 02/02/21 02:58 Sodium 137 mmol/L (137-145) 02/02/21 Unknown Potassium 5.9 mmol/L (3.6-5.0) H 02/02/21 Unknown Chloride 95.0 mmol/L (98-107) L 02/02/21 Unknown Carbon Dioxide 24 mmol/L (22-30) 02/02/21 Unknown Anion Gap 24 mmol/L 02/02/21 Unknown BUN 118 mg/dL (9-20) H 02/02/21 Unknown Creatinine 7.2 mg/dL (0.8-1.3) H 02/02/21 Unknown Estimated GFR 8 ml/min 02/02/21 Unknown BUN/Creatinine Ratio 16 % 02/02/21 Unknown Glucose 152 mg/dL (75-100) H 02/02/21 Unknown POC Glucose 179 mg/dL (70-105) H 02/02/21 11:10 Hemoglobin A1c 6.2 % (4-6) H 01/22/21 11:06 Lactic Acid 4.20 mmol/L (0.7-2.0) H* 01/22/21 11:06 Calcium 7.1 mg/dL (8.4-10.2) L 02/02/21 Unknown Phosphorus 8.60 mg/dL (2.5-4.5) H 01/30/21 05:00 Magnesium 2.40 mg/dL (1.7-2.3) H 01/30/21 05:00 Ferritin 1921.0 ng/mL (30.0-300.0) H 01/26/21 07:39 Total Bilirubin 2.90 mg/dL (0.1-1.2) H 02/02/21 Unknown Direct Bilirubin 1.6 mg/dL (0-0.2) H 01/31/21 03:30 Indirect Bilirubin 0.0 mg/dL 01/31/21 03:30 AST 134 units/L (5-40) H 02/02/21 Unknown ALT 169 units/L (7-56) H 02/02/21 Unknown Alkaline Phosphatase 94 units/L (35-129) 02/02/21 Unknown Lactate Dehydrogenase 1559 units/L (91-180) H 01/26/21 07:32 Total Creatine Kinase 258 units/L (55-170) H 01/27/21 05:00 C-Reactive Protein 20.90 mg/dL (0.00-1.30) H 01/26/21 07:32 Serum Total Protein 7.2 g/dL (6.1-8.1) 01/27/21 11:55 Total Protein 5.0 g/dL (6.3-8.2) L 02/02/21 Unknown Albumin 2.5 g/dL (3.9-5) L 02/02/21 Unknown Albumin/Globulin Ratio 1.0 % 02/02/21 Unknown Bftae-0-Sttdibmdw 0.7 g/dL (0.2-0.3) H 01/27/21 11:55 Dtmuo-0-Fnqyqzput 1.2 g/dL (0.5-0.9) H 01/27/21 11:55 Beta Globulins 0.7 g/dL (0.2-0.5) H 01/27/21 11:55 Gamma Globulins 1.6 g/dL (0.8-1.7) 01/27/21 11:55 Abnorm Protein Band 1 0.5 g/dL H 01/27/21 11:55 PEP Interpretation see below H 01/27/21 11:55 Triglycerides 369 mg/dL (2-149) H 01/28/21 04:00 Lipase 46 units/L (13-60) 02/01/21 04:00 Procalcitonin 2.11 ng/mL (<0.15) 01/25/21 06:22 TSH 0.013 mlU/mL (0.270-4.200) L 01/28/21 10:03 Thyroxine (T4) 3.3 ug/dL (4.0-12.0) L 01/30/21 15:35 Arterial Blood Glucose 155 mg/dL (65-95) H 02/02/21 02:58 Arterial Blood Ionized Calcium 3.9 mg/dL (4.6-5.3) L 02/02/21 02:58 Immunofix Electrophor see below H 01/27/21 11:55 ANURAG Screen Negative (Negative) 01/27/21 11:55 Complement C3 105 mg/dL (82-185) 01/27/21 11:55 Complement C4 17 mg/dL (15-53) 01/27/21 11:55 Coronavirus (PCR) Positive (Negative) A 01/23/21 09:00 Hepatitis A IgM Ab Non-reactive (NonReactive) 01/27/21 11:41 Hep Bs Antigen Nonreactive (Negative) 01/27/21 11:41 Hep B Core IgM Ab Non-reactive (NonReactive) 01/27/21 11:41 Hepatitis C Antibody Non-reactive (NonReactive) 01/27/21 11:41 Miscellaneous Test Flexitest 1 H 01/29/21 Unknown Arana/IV: Voiding Method Incontinent Active Medications - Current Medications Current Medications: Generic Name Dose Route Start Last Admin Trade Name Freq PRN Reason Stop Dose Admin Acetaminophen 650 mg 01/22/21 23:03 Acetaminophen 325 Mg Tab PO Q4H PRN Pain MILD(1-3)/Fever >100.5/ANDERSEN Albumin Human 25 gm 01/27/21 09:35 Albumin Human 25% (25 Gm/100 Ml) Inj IV MELECIO PRN Hypotension Amiodarone HCl 200 mg 01/30/21 10:00 02/02/21 10:55 Amiodarone 200 Mg Tab PO 200 mg DAILY JACK Administration Lipase/Protease/Amylase 1 each 01/27/21 11:37 Lipase 10,500/Protease 25,000/Amylase 43,750 (Units) Dr Singer FEEDTUBE PRN PRN For Clogged Feeding Tube Ascorbic Acid 500 mg 02/02/21 11:00 02/02/21 10:56 Ascorbic Acid 500 Mg Tab PO 500 mg BID JACK Administration Cholecalciferol 5,000 unit 02/02/21 11:00 02/02/21 10:55 Cholecalciferol (Vit D3) 5,000 Unit Tab PO 5,000 unit DAILY JACK Administration Dextrose 50 ml 01/29/21 12:24 Dextrose 50% In Water (25gm) 50 Ml Syringe IV Q30MIN PRN Hypoglycemia Protocol Famotidine 20 mg 01/27/21 10:00 02/02/21 10:56 Famotidine 20 Mg/2 Ml Inj IV 20 mg DAILY JACK Administration Fentanyl 50 mcg 01/25/21 11:32 01/28/21 06:10 Fentanyl 100 Mcg/2 Ml Inj IV 50 mcg Q10MIN PRN Administration ANALGESIA Heparin Sodium (Porcine) 5,000 unit 01/28/21 09:27 Heparin 10,000 Units/10 Ml Vial IV Q6H PRN Anti-Xa Assay < 0.1 units/ml Hydrophilic Ointment 1 applic 01/25/21 13:27 Lip Therapy Vaseline TP Q2HR PRN Dry Lips Fentanyl Citrate 2,000 mcg in 100 mls @ 6.357 mls/hr 01/25/21 12:00 01/30/21 05:21 Fentanyl Drip Premix IV 0 mcg/kg/hr TITR JACK 0 mls/hr Titration Protocol 1 MCG/KG/HR Propofol 1,000 mg in 100 mls @ 3.814 mls/hr 01/25/21 14:00 01/30/21 05:19 Diprivan 10 Mg/Ml IV 0 mcg/kg/min TITR JACK 0 mls/hr Titration Protocol 5 MCG/KG/MIN Norepinephrine 4 mg in 250 mls @ 7.5 mls/hr 01/25/21 17:04 01/31/21 09:05 Levophed Drip 4 Mg/Ns 250 Ml IV 2 mcg/min TITR JACK 7.5 mls/hr Titration Protocol 2 MCG/MIN Midazolam HCl 100 mg/ Sodium 100 mls @ 1 mls/hr 01/26/21 11:00 01/30/21 05:24 Chloride IV 0 mg/hr TITR JACK 0 mls/hr Titration Protocol 1 MG/HR Sodium Chloride 100 mls @ 999 mls/hr 01/27/21 09:35 Nacl 0.9% IV MELECIO PRN Hypotension Vasopressin 20 unit/ Sodium 101 mls @ 9.09 mls/hr 01/28/21 07:00 01/30/21 08:55 Chloride IV Infused TITR JACK Titration Protocol 0.03 UNITS/MIN Heparin Sodium/Sodium Chloride 25,000 unit in 500 mls @ 30 mls/hr 01/28/21 11:00 02/02/21 17:32 Heparin/ 0.45% Nacl-25,000 Unit/500 Ml IV 1,400 units/hr TITR JACK 28 mls/hr Titration Protocol 1,500 UNITS/HR Cefepime HCl 1 gm in 100 mls @ 200 mls/hr 02/02/21 18:00 02/02/21 17:08 Cefepime/Ns 1 Gm/100 Ml IV 200 mls/hr QPM JACK Administration Protocol Insulin Human Regular 0 units 01/29/21 13:00 02/02/21 11:40 Insulin Regular, Human 100 Units/1 Ml SUB-Q 1 units Q6HR JACK Administration Protocol Metoclopramide HCl 10 mg 02/02/21 14:00 02/02/21 17:12 Metoclopramide 10 Mg/2 Ml Inj IV 10 mg Q8H JACK Administration Midazolam HCl 2 mg 01/25/21 16:13 Midazolam 2 Mg/2 Ml Inj IV Q10MIN PRN Sedation Multi-Ingred Cream/Lotion/Oil/Oint 1 applic 01/25/21 13:27 Mineral Oil/Petrolatum, White Ophth Oint 3.5 Gm OU Q4HR PRN Dry Eye(s) Ondansetron HCl 4 mg 01/22/21 23:03 Ondansetron 4 Mg/2 Ml Inj IV Q8H PRN Nausea And Vomiting Senna/Docusate Sodium 1 tab 01/25/21 22:00 02/02/21 10:55 Sennosides/Docusate Sodium 8.6/50 Mg Tab FEEDTUBE 1 tab BID JACK Administration Simple Syrup 15 ml 01/27/21 11:37 Simple Syrup 15 Ml FEEDTUBE PRN PRN Hypoglycemia Simple Syrup 30 ml 01/27/21 11:37 Simple Syrup 15 Ml FEEDTUBE PRN PRN Hypoglycemia Sodium Bicarbonate 325 mg 01/27/21 11:37 Sodium Bicarbonate 325 Mg Tab FEEDTUBE PRN PRN For Clogged Feeding Tube Sodium Chloride 10 ml 01/22/21 23:45 02/02/21 10:55 Sodium Chloride 0.9% 10 Ml Flush Syringe IV 10 ml BID JACK Administration Sodium Chloride 10 ml 01/22/21 23:03 Sodium Chloride 0.9% 10 Ml Flush Syringe IV PRN PRN LINE FLUSH Voriconazole 300 mg 01/29/21 11:00 02/02/21 10:55 Voriconazole 200 Mg Tab PO 300 mg Q12HR JACK Administration Zinc Sulfate 220 mg 02/02/21 11:00 02/02/21 10:55 Zinc Sulfate 220 Mg Cap PO 220 mg BID JACK Administration Nutrition/Malnutrition Assess - Dietary Evaluation Nutrition/Malnutrition Findings: Nutrition Notes Start: 01/24/21 13:25 Freq: Status: Active Protocol: Document 02/02/21 10:21 (Rec: 02/02/21 10:28 [id number]) Nutrition Notes Initial or Follow up Reassessment Current Diagnosis Sepsis,Respiratory Failure, Malnutrition Other Pertinent Diagnosis covid-19, pneumonia Current Diet Nepro 1.8 at 30 ml/hr Labs/Tests K 5.9 BUN 118 Cr 7.2 Pertinent Medications Levophed Vasopressin Height 5 ft 6 in Weight 128 kg [place] Body Weight (kg) 64.54 BMI 45.5 Weight Status Morbidly Obese Subjective/Other Information TF running at 20 ml/hr and is being increased per tolerance. Pt procedure this AM and TF was paused. Percent of energy/protein needs met: 48%/24% Burn Absent Trauma Absent GI Symptoms None Current % PO Negligible Minimum of two criteria No physical signs of malnutrition #1 Nutrition Diagnosis Inadequate oral intake Diagnosis Progress(for reassessment Continues documentation) Is patient on ventilator? Yes Is Patient Ambulatory and/or Out of Bed No REE-([place]-confined to bed) 2484.852 Kcal/Kg value to use for calculation 14 Approximate Energy Requirements Using 1792 kcal/Kg Calculation Used for Recommendations Kcal/kg Additional Notes Protein needs: up to 161 (up to 2.5 g/kgIBW) fluid needs: 1ml/kcal or per MD order Nutrition Intervention Nutrition Support: Nepro at 30 ml/hr with a free water flush of 175 ml q4h Kcal 1,296 Protein (gm) 58 Fluid (mL) 523 Goal #1 Meet needs as best as possible via TF Anticipated Discharge Needs: Unable to determine at this time Follow-Up By: 02/05/21 Additional Comments F/u: TF rate and tolerance <STAR CHRISTY - Last Filed: 02/03/21 14:32> Assessment and Plan Assessment and plan: I saw and evaluated the patient. Discussed with the nurse practitioner and agree with their findings and plan as documented in this note. Hospitalist Physical - Constitutional Vitals: Temp Pulse Resp BP Pulse Ox 99.5 F 107 H 26 H 142/37 94 02/03/21 08:00 02/03/21 14:15 02/03/21 14:15 02/03/21 14:15 02/03/21 14:15 Results - Labs CBC & Chem 7: 02/03/21 05:25 02/03/21 05:25 Labs: Laboratory Last Values WBC 55.8 K/mm3 (4.5-11.0) H* 02/03/21 05:25 RBC 3.66 M/mm3 (3.65-5.03) 02/03/21 05:25 Hgb 10.3 gm/dl (11.8-15.2) L 02/03/21 05:25 Hct 32.4 % (35.5-45.6) L 02/03/21 05:25 MCV 89 fl (84-94) 02/03/21 05:25 MCH 28 pg (28-32) 02/03/21 05:25 MCHC 32 % (32-34) 02/03/21 05:25 RDW 14.7 % (13.2-15.2) 02/03/21 05:25 Plt Count 161 K/mm3 (140-440) 02/03/21 05:25 Lymph % (Auto) 4.4 % (13.4-35.0) L 01/23/21 05:29 [place] % (Auto) 6.4 % (0.0-7.3) 01/23/21 05:29 Lymph # (Auto) 0.8 K/mm3 (1.2-5.4) L 01/23/21 05:29 [place] # (Auto) 1.2 K/mm3 (0.0-0.8) H 01/23/21 05:29 Add Manual Diff Complete 02/02/21 Unknown Total Counted 100 02/02/21 Unknown Seg Neutrophils % Armature Bander 02/02/21 Unknown Seg Neuts % (Manual) 94.0 % (40.0-70.0) H 02/02/21 Unknown Band Neutrophils % 2.0 % 01/22/21 11:06 Lymphocytes % (Manual) 3.0 % (13.4-35.0) L 02/02/21 Unknown Monocytes % (Manual) 2.0 % (0.0-7.3) 02/02/21 Unknown Eosinophils % (Manual) 1.0 % (0.0-4.3) 02/02/21 Unknown Nucleated RBC % Not Reportable 02/02/21 Unknown Seg Neutrophils # 16.9 K/mm3 (1.8-7.7) H 01/23/21 05:29 Seg Neutrophils # Man 56.6 K/mm3 (1.8-7.7) H 02/02/21 Unknown Band Neutrophils # 0.0 K/mm3 02/02/21 Unknown Lymphocytes # (Manual) 1.8 K/mm3 (1.2-5.4) 02/02/21 Unknown Abs React Lymphs (Man) 0.0 K/mm3 02/02/21 Unknown Monocytes # (Manual) 1.2 K/mm3 (0.0-0.8) H 02/02/21 Unknown Eosinophils # (Manual) 0.6 K/mm3 (0.0-0.4) H 02/02/21 Unknown Basophils # (Manual) 0.0 K/mm3 (0.0-0.1) 02/02/21 Unknown Metamyelocytes # 0.0 K/mm3 02/02/21 Unknown Myelocytes # 0.0 K/mm3 02/02/21 Unknown Promyelocytes # 0.0 K/mm3 02/02/21 Unknown Blast Cells # 0.0 K/mm3 02/02/21 Unknown WBC Morphology Not Reportable 02/02/21 Unknown Hypersegmented Neuts Not Reportable 02/02/21 Unknown Hyposegmented Neuts Not Reportable 02/02/21 Unknown Hypogranular Neuts Not Reportable 02/02/21 Unknown Smudge Cells Not Reportable 02/02/21 Unknown Toxic Granulation Not Reportable 02/02/21 Unknown Toxic Vacuolation Not Reportable 02/02/21 Unknown Dohle Bodies Not Reportable 02/02/21 Unknown Pelger-Huet Anomaly Not Reportable 02/02/[address] Rods Not Reportable 02/02/21 Unknown Platelet Estimate Not Reportable 02/02/21 Unknown Clumped Platelets Not Reportable 02/02/21 Unknown Plt Clumps, EDTA Not Reportable 02/02/21 Unknown Large Platelets Not Reportable 02/02/21 Unknown Giant Platelets Not Reportable 02/02/21 Unknown Platelet Satelliting Not Reportable 02/02/21 Unknown Plt Morphology Comment Not Reportable 02/02/21 Unknown RBC Morphology Normal 02/02/21 Unknown Dimorphic RBCs Not Reportable 02/02/21 Unknown Polychromasia Not Reportable 02/02/21 Unknown Hypochromasia Not Reportable 02/02/21 Unknown Poikilocytosis Not Reportable 02/02/21 Unknown Anisocytosis Not Reportable 02/02/21 Unknown Microcytosis Not Reportable 02/02/21 Unknown Macrocytosis Not Reportable 02/02/21 Unknown Spherocytes Not Reportable 02/02/21 Unknown Pappenheimer Bodies Not Reportable 02/02/21 Unknown Sickle Cells Not Reportable 02/02/21 Unknown Target Cells Not Reportable 02/02/21 Unknown Tear Drop Cells Not Reportable 02/02/21 Unknown Ovalocytes Not Reportable 02/02/21 Unknown Helmet Cells Not Reportable 02/02/21 Unknown Soliman-Bradley Bodies Not Reportable 02/02/21 Unknown Sylmar Rings Not Reportable 02/02/21 Unknown Claudia Cells Not Reportable 02/02/21 Unknown Bite Cells Not Reportable 02/02/21 Unknown Crenated Cell Not Reportable 02/02/21 Unknown Elliptocytes Not Reportable 02/02/21 Unknown Acanthocytes (Spur) Not Reportable 02/02/21 Unknown Rouleaux Not Reportable 02/02/21 Unknown Hemoglobin C Crystals Not Reportable 02/02/21 Unknown Schistocytes Not Reportable 02/02/21 Unknown Malaria parasites Not Reportable 02/02/21 Unknown Lloyd Bodies Not Reportable 02/02/21 Unknown Hem Pathologist Commnt No 02/02/21 Unknown PT 15.1 Sec. (12.2-14.9) H 02/02/21 Unknown INR 1.13 (0.87-1.13) 02/02/21 Unknown APTT 29.2 Sec. (24.2-36.6) 01/28/21 10:03 D-Dimer 4328.24 ng/mlDDU (0-234) H 02/03/21 05:25 Heparin Anti-Xa Level 0.38 U.I./ml (0.3-0.7) 02/03/21 11:15 ABG pH 7.208 (7.320-7.450) L 02/02/21 02:58 POC ABG pCO2 58.3 mmHg (32.0-48.0) H 02/02/21 02:58 ABG pCO2 46.6 mm Hg 01/26/21 08:30 POC ABG pO2 91.1 mmHg (83-108) 02/02/21 02:58 ABG pO2 124.5 mm Hg (80.0-90.0) H 01/26/21 08:30 POC ABG HCO3 22.7 02/02/21 02:58 ABG HCO3 21.7 mmol/L (20.0-26.0) 01/26/21 08:30 ABG O2 Saturation 95.8 (0-100) 02/02/21 02:58 ABG O2 Content 19.4 (0.0-44) 01/26/21 08:30 POC ABG Base Excess -5.7 02/02/21 02:58 ABG Base Excess -5.0 mmol/L (-2.0-3.0) L 01/26/21 08:30 ABG Hemoglobin 11.6 (12.0-17.5) L 02/02/21 02:58 ABG Oxyhemoglobin 94.6 (94-98) 02/02/21 02:58 ABG Carboxyhemoglobin 1.2 % (0.0-5.0) 01/26/21 08:30 ABG Methemoglobin 0.1 (0.0-1.5) 02/02/21 02:58 ABG Sodium 131.4 mmol/L (136.0-145.0) L 02/02/21 02:58 ABG Potassium 5.6 mmol/L (3.40-4.50) H 02/02/21 02:58 ABG Chloride 97.0 mmol/L (98-107) L 02/02/21 02:58 ABG Glucose 155 mg/dL (65-95) H 02/02/21 02:58 Oxyhemoglobin 96.2 % (95.0-99.0) 01/26/21 08:30 Carboxyhemoglobin 1.2 (0.5-1.5) 02/02/21 02:58 FiO2 100 % 01/26/21 08:30 FiO2 % 100.0 02/02/21 02:58 Sodium 137 mmol/L (137-145) 02/03/21 05:25 Sodium 137 mmol/L (137-145) 02/03/21 05:25 Potassium 5.4 mmol/L (3.6-5.0) H 02/03/21 05:25 Potassium 5.6 mmol/L (3.6-5.0) H 02/03/21 05:25 Chloride 97.3 mmol/L (98-107) L 02/03/21 05:25 Chloride 98.2 mmol/L (98-107) 02/03/21 05:25 Carbon Dioxide 21 mmol/L (22-30) L 02/03/21 05:25 Carbon Dioxide 22 mmol/L (22-30) 02/03/21 05:25 Anion Gap 22 mmol/L 02/03/21 05:25 Anion Gap 24 mmol/L 02/03/21 05:25 BUN 86 mg/dL (9-20) H 02/03/21 05:25 BUN 86 mg/dL (9-20) H 02/03/21 05:25 Creatinine 5.6 mg/dL (0.8-1.3) H 02/03/21 05:25 Creatinine 5.8 mg/dL (0.8-1.3) H 02/03/21 05:25 Estimated GFR 10 ml/min 02/03/21 05:25 Estimated GFR 11 ml/min 02/03/21 05:25 BUN/Creatinine Ratio 15 % 02/03/21 05:25 BUN/Creatinine Ratio 15 % 02/03/21 05:25 Glucose 152 mg/dL (75-100) H 02/03/21 05:25 Glucose 154 mg/dL (75-100) H 02/03/21 05:25 POC Glucose 146 mg/dL (70-105) H 02/03/21 11:35 Hemoglobin A1c 6.2 % (4-6) H 01/22/21 11:06 Lactic Acid 4.20 mmol/L (0.7-2.0) H* 01/22/21 11:06 Calcium 7.8 mg/dL (8.4-10.2) L 02/03/21 05:25 Calcium 7.9 mg/dL (8.4-10.2) L 02/03/21 05:25 Phosphorus 8.50 mg/dL (2.5-4.5) H 02/03/21 05:25 Magnesium 2.50 mg/dL (1.7-2.3) H 02/03/21 05:25 Ferritin 2914.0 ng/mL (30.0-300.0) H 02/03/21 05:25 Total Bilirubin 2.30 mg/dL (0.1-1.2) H 02/03/21 05:25 Direct Bilirubin 1.6 mg/dL (0-0.2) H 01/31/21 03:30 Indirect Bilirubin 0.0 mg/dL 01/31/21 03:30 AST 103 units/L (5-40) H 02/03/21 05:25 ALT 200 units/L (7-56) H 02/03/21 05:25 Alkaline Phosphatase 135 units/L (35-129) H 02/03/21 05:25 Ammonia 83.0 umol/L (25-60) H 02/02/21 Unknown Lactate Dehydrogenase 1310 units/L (91-180) H 02/03/21 05:25 Total Creatine Kinase 258 units/L (55-170) H 01/27/21 05:00 C-Reactive Protein 2.50 mg/dL (0.00-1.30) H 02/03/21 05:25 Serum Total Protein 7.2 g/dL (6.1-8.1) 01/27/21 11:55 Total Protein 5.2 g/dL (6.3-8.2) L 02/03/21 05:25 Albumin 2.2 g/dL (3.9-5) L 02/03/21 05:25 Albumin/Globulin Ratio 0.7 % 02/03/21 05:25 Fueob-0-Rpmymtauw 0.7 g/dL (0.2-0.3) H 01/27/21 11:55 Qqqxl-7-Aqkhdxrxu 1.2 g/dL (0.5-0.9) H 01/27/21 11:55 Beta Globulins 0.7 g/dL (0.2-0.5) H 01/27/21 11:55 Gamma Globulins 1.6 g/dL (0.8-1.7) 01/27/21 11:55 Abnorm Protein Band 1 0.5 g/dL H 01/27/21 11:55 PEP Interpretation see below H 01/27/21 11:55 Triglycerides 369 mg/dL (2-149) H 01/28/21 04:00 Lipase 46 units/L (13-60) 02/01/21 04:00 Procalcitonin 2.11 ng/mL (<0.15) 01/25/21 06:22 TSH 0.013 mlU/mL (0.270-4.200) L 01/28/21 10:03 Thyroxine (T4) 3.3 ug/dL (4.0-12.0) L 01/30/21 15:35 Free T3 Index 1.1 pg/mL (2.3-4.2) L 01/30/21 15:35 Arterial Blood Glucose 155 mg/dL (65-95) H 02/02/21 02:58 Arterial Blood Ionized Calcium 3.9 mg/dL (4.6-5.3) L 02/02/21 02:58 Immunofix Electrophor see below H 01/27/21 11:55 ANURAG Screen Negative (Negative) 01/27/21 11:55 Proteinase 3 (PR3) Ab <1.0 AI (<1.0) 01/27/21 11:55 Myeloperoxidase Ab <1.0 AI (<1.0) 01/27/21 11:55 Complement C3 105 mg/dL (82-185) 01/27/21 11:55 Complement C4 17 mg/dL (15-53) 01/27/21 11:55 Coronavirus (PCR) Positive (Negative) A 01/23/21 09:00 Hepatitis A IgM Ab Non-reactive (NonReactive) 01/27/21 11:41 Hep Bs Antigen Nonreactive (Negative) 01/27/21 11:41 Hep B Core IgM Ab Non-reactive (NonReactive) 01/27/21 11:41 Hepatitis C Antibody Non-reactive (NonReactive) 01/27/21 11:41 Miscellaneous Test Flexitest 1 H 01/29/21 Unknown Microbiology: Microbiology 02/02/21 14:25 Tracheal Aspirate Sputum Culture - Preliminary 02/03/21 08:44 Peripheral/Venous Blood Culture - Preliminary Culture in Progress 02/03/21 08:44 Peripheral/Venous Blood Culture - Preliminary Culture in Progress Arana/IV: Voiding Method Incontinent Active Medications - Current Medications Current Medications: Generic Name Dose Route Start Last Admin Trade Name Freq PRN Reason Stop Dose Admin Albumin Human 25 gm 01/27/21 09:35 Albumin Human 25% (25 Gm/100 Ml) Inj IV MELECIO PRN Hypotension Amiodarone HCl 200 mg 01/30/21 10:00 02/03/21 09:40 Amiodarone 200 Mg Tab PO 200 mg DAILY JACK Administration Lipase/Protease/Amylase 1 each 01/27/21 11:37 Lipase 10,500/Protease 25,000/Amylase 43,750 (Units) Dr Cap FEEDTUBE PRN PRN For Clogged Feeding Tube Ascorbic Acid 500 mg 02/02/21 11:00 02/03/21 09:40 Ascorbic Acid 500 Mg Tab PO 500 mg BID JACK Administration Cholecalciferol 5,000 unit 02/02/21 11:00 02/03/21 09:40 Cholecalciferol (Vit D3) 5,000 Unit Tab PO 5,000 unit DAILY JACK Administration Dextrose 50 ml 01/29/21 12:24 Dextrose 50% In Water (25gm) 50 Ml Syringe IV Q30MIN PRN Hypoglycemia Protocol Famotidine 20 mg 01/27/21 10:00 02/03/21 09:40 Famotidine 20 Mg/2 Ml Inj IV 20 mg DAILY JACK Administration Fentanyl 50 mcg 01/25/21 11:32 01/28/21 06:10 Fentanyl 100 Mcg/2 Ml Inj IV 50 mcg Q10MIN PRN Administration ANALGESIA Heparin Sodium (Porcine) 5,000 unit 01/28/21 09:27 Heparin 10,000 Units/10 Ml Vial IV Q6H PRN Anti-Xa Assay < 0.1 units/ml Hydrophilic Ointment 1 applic 01/25/21 13:27 Lip Therapy Vaseline TP Q2HR PRN Dry Lips Norepinephrine 4 mg in 250 mls @ 7.5 mls/hr 01/25/21 17:04 01/31/21 09:05 Levophed Drip 4 Mg/Ns 250 Ml IV 2 mcg/min TITR JACK 7.5 mls/hr Titration Protocol 2 MCG/MIN Sodium Chloride 100 mls @ 999 mls/hr 01/27/21 09:35 Nacl 0.9% IV MELECIO PRN Hypotension Vasopressin 20 unit/ Sodium 101 mls @ 9.09 mls/hr 01/28/21 07:00 01/30/21 08:55 Chloride IV Infused TITR JACK Titration Protocol 0.03 UNITS/MIN Heparin Sodium/Sodium Chloride 25,000 unit in 500 mls @ 30 mls/hr 01/28/21 11:00 02/03/21 03:33 Heparin/ 0.45% Nacl-25,000 Unit/500 Ml IV 1,500 units/hr TITR JACK 30 mls/hr Administration Protocol 1,500 UNITS/HR Cefepime HCl 1 gm in 100 mls @ 200 mls/hr 02/02/21 18:00 02/02/21 17:08 Cefepime/Ns 1 Gm/100 Ml IV 02/06/21 18:29 200 mls/hr QPM PENDING SALE TO [facility] Administration Protocol Insulin Human Regular 0 units 01/29/21 13:00 02/03/21 05:20 Insulin Regular, Human 100 Units/1 Ml SUB-Q 1 units Q6HR JACK Administration Protocol Lactulose 20 gm 02/03/21 14:00 Lactulose 20 Gm/30 Ml Oral Liqd PO Q6HR PENDING SALE TO [facility] Metoclopramide HCl 10 mg 02/02/21 14:00 02/03/21 05:19 Metoclopramide 10 Mg/2 Ml Inj IV 10 mg Q8H JACK Administration Multi-Ingred Cream/Lotion/Oil/Oint 1 applic 01/25/21 13:27 Mineral Oil/Petrolatum, White Ophth Oint 3.5 Gm OU Q4HR PRN Dry Eye(s) Ondansetron HCl 4 mg 01/22/21 23:03 Ondansetron 4 Mg/2 Ml Inj IV Q8H PRN Nausea And Vomiting Senna/Docusate Sodium 1 tab 01/25/21 22:00 02/03/21 09:40 Sennosides/Docusate Sodium 8.6/50 Mg Tab FEEDTUBE 1 tab BID JACK Administration Simple Syrup 15 ml 01/27/21 11:37 Simple Syrup 15 Ml FEEDTUBE PRN PRN Hypoglycemia Simple Syrup 30 ml 01/27/21 11:37 Simple Syrup 15 Ml FEEDTUBE PRN PRN Hypoglycemia Sodium Bicarbonate 325 mg 01/27/21 11:37 Sodium Bicarbonate 325 Mg Tab FEEDTUBE PRN PRN For Clogged Feeding Tube Sodium Chloride 10 ml 01/22/21 23:45 02/03/21 09:41 Sodium Chloride 0.9% 10 Ml Flush Syringe IV 10 ml BID JACK Administration Sodium Chloride 10 ml 01/22/21 23:03 Sodium Chloride 0.9% 10 Ml Flush Syringe IV PRN PRN LINE FLUSH Voriconazole 300 mg 01/29/21 11:00 02/03/21 09:40 Voriconazole 200 Mg Tab PO 300 mg Q12HR JACK Administration Zinc Sulfate 220 mg 02/02/21 11:00 02/03/21 09:40 Zinc Sulfate 220 Mg Cap PO 220 mg BID JACK Administration Nutrition/Malnutrition Assess - Dietary Evaluation Nutrition/Malnutrition Findings: Nutrition Notes Start: 01/24/21 13:25 Freq: Status: Active Protocol: Document 02/02/21 10:21 KAMERON (Rec: 02/02/21 10:28 [id number]) Nutrition Notes Initial or Follow up Reassessment Current Diagnosis Sepsis,Respiratory Failure, Malnutrition Other Pertinent Diagnosis covid-19, pneumonia Current Diet Nepro 1.8 at 30 ml/hr Labs/Tests K 5.9 BUN 118 Cr 7.2 Pertinent Medications Levophed Vasopressin Height 5 ft 6 in Weight 128 kg [place] Body Weight (kg) 64.54 BMI 45.5 Weight Status Morbidly Obese Subjective/Other Information TF running at 20 ml/hr and is being increased per tolerance. Pt procedure this AM and TF was paused. Percent of energy/protein needs met: 48%/24% Burn Absent Trauma Absent GI Symptoms None Current % PO Negligible Minimum of two criteria No physical signs of malnutrition #1 Nutrition Diagnosis Inadequate oral intake Diagnosis Progress(for reassessment Continues documentation) Is patient on ventilator? Yes Is Patient Ambulatory and/or Out of Bed No REE-([facility]-confined to bed) 2484.852 Kcal/Kg value to use for calculation 14 Approximate Energy Requirements Using 1792 kcal/Kg Calculation Used for Recommendations Kcal/kg Additional Notes Protein needs: up to 161 (up to 2.5 g/kgIBW) fluid needs: 1ml/kcal or per MD order Nutrition Intervention Nutrition Support: Nepro at 30 ml/hr with a free water flush of 175 ml q4h Kcal 1,296 Protein (gm) 58 Fluid (mL) 523 Goal #1 Meet needs as best as possible via TF Anticipated Discharge Needs: Unable to determine at this time Follow-Up By: 02/05/21 Additional Comments F/u: TF rate and tolerance
[2021-02-02 21:24] LABS: Hematocrit 33.7 % (35.5-45.6); Mean Corpuscular HGB Conc 33 % (32-34); Mean Corpuscular Volume 88 fl (84-94); Platelet Count 174 K/mm3 (140-440); Red Blood Count 3.84 M/mm3 (3.65-5.03); Red Cell Distribution Width 14.4 % (13.2-15.2)
[2021-02-02 22:52] LABS: RBC Morphology Normal; Total Cells Counted 100
[2021-02-03] MEDS: INSULIN REGULAR, HUMAN 100 UNITS/1 ML SUB-Q SCH ×3 (03:13→17:27)
[2021-02-03] MEDS: HEPARIN/ 0.45% NACL DRIP 25,000 UNIT/500 ML BAG IV SCH ×2 (03:33→22:49)
--- NOTE | 2021-02-03 03:43 | XRay Report ---
CHEST 1 VIEW 02/03/2021 2:32 AM INDICATION / CLINICAL INFORMATION: sob. COMPARISON: Previous day. FINDINGS: SUPPORT DEVICES: Unchanged. HEART / MEDIASTINUM: No significant abnormality. LUNGS / PLEURA: Diffuse bilateral opacity remains with overall mild worsening. Mild enlargement of le ft-sided pneumothorax. ADDITIONAL FINDINGS: Mild increasing subcutaneous air on the right. IMPRESSION: 1. Mild interval worsening. 2. Mild enlargement of left-sided pneumothorax. Signer Name: Luis Daniel Frost MD Signed: 02/03/2021 3:39 AM Workstation Name: [id number]
[2021-02-03] MEDS: METOCLOPRAMIDE 10 MG/2 ML INJ IV SCH ×3 (05:19→22:47)
[2021-02-03 06:34] LABS: Hematocrit 32.4 % (35.5-45.6); Hemoglobin 10.3 gm/dl (11.8-15.2); Mean Corpuscular HGB Conc 32 % (32-34); Mean Corpuscular Volume 89 fl (84-94); Platelet Count 161 K/mm3 (140-440); Red Blood Count 3.66 M/mm3 (3.65-5.03); Red Cell Distribution Width 14.7 % (13.2-15.2)
[2021-02-03 06:49] LABS: Albumin 2.2 g/dL (3.9-5); Calcium 7.8 mg/dL (8.4-10.2)
[2021-02-03 07:18] LABS: C-Reactive Protein 2.5 mg/dL (0.00-1.30); Calcium 7.9 mg/dL (8.4-10.2)
[2021-02-03] MEDS: FAMOTIDINE 20 MG/2 ML INJ IV SCH (09:40)
[2021-02-03] MEDS: SENNOSIDES/DOCUSATE SODIUM 8.6/50 MG TAB FEEDTUBE SCH ×2 (09:40→22:47)
[2021-02-03] MEDS: VORICONAZOLE 200 MG TAB PO SCH ×2 (09:40→22:46)
[2021-02-03] MEDS: AMIODARONE 200 MG TAB PO SCH (09:40)
[2021-02-03] MEDS: CHOLECALCIFEROL (VIT D3) 5,000 UNIT TAB PO SCH (09:40)
[2021-02-03] MEDS: ASCORBIC ACID 500 MG TAB PO SCH ×2 (09:40→22:46)
[2021-02-03] MEDS: ZINC SULFATE 220 MG CAP PO SCH ×2 (09:40→22:46)
--- NOTE | 2021-02-03 10:02 | Progress Note ---
Subjective Date of service: 02/03/21 Principal diagnosis: Ac hypoxemic resp failure; COVID-19; Pneumonia; Sepsis; Morbid obesity Interval history: Assessment: Acute kidney injury Hyperkalemia Acidosis Azotemia Acute respiratory failure, status post intubation Covid pneumonia pneumothorax Septic shock Recommendations HD q MWF and prn, plan for extra hd session today Consent was obtained from for [employer]. Possible complications on dialysis were also explained in detail. Assess daily for needs for additional hemodialysis sessions UF Tolerated with hd chest tube --surgery note reviewed daily lytes, strict i/os likey ATN due to COvid infection Renally dose medications Avoid nephrotoxins lifelink referral noted, may not be fpc dialysis appropriate, palliative care discussion appropriate Subjective Principal diagnosis: Ac hypoxemic resp failure; COVID-19; Pneumonia; Sepsis; Morbid obesity Interval history: Remains intubated. Objective - Exam exam deferred for preservation of ppe, primary team exam noted Objective - Vital Signs Vital signs: Vital Signs - 12hr 02/02/21 02/02/21 02/02/21 22:15 22:30 22:45 Temperature Pulse Rate 113 H 113 H 111 H Pulse Rate [ From Monitor] Respiratory 38 H 38 H 38 H Rate Blood Pressure 109/55 106/50 106/50 O2 Sat by Pulse 89 90 89 Oximetry 02/02/21 02/02/21 02/02/21 23:00 23:15 23:27 Temperature Pulse Rate 113 H 112 H 111 H Pulse Rate [ From Monitor] Respiratory 38 H 39 H Rate Blood Pressure 116/52 96/66 96/66 O2 Sat by Pulse 90 88 89 Oximetry 02/02/21 02/02/21 02/02/21 23:30 23:38 23:45 Temperature 100.1 F H Pulse Rate 113 H 111 H Pulse Rate [ From Monitor] Respiratory 39 H 41 H Rate Blood Pressure 116/56 103/49 O2 Sat by Pulse 90 89 Oximetry 02/03/21 02/03/21 02/03/21 00:00 00:15 00:30 Temperature Pulse Rate 111 H 112 H 113 H Pulse Rate [ 90 From Monitor] Respiratory 32 H 41 H 40 H Rate Blood Pressure 104/61 108/59 97/53 O2 Sat by Pulse 90 89 92 Oximetry 02/03/21 02/03/21 02/03/21 00:45 01:00 01:15 Temperature Pulse Rate 110 H 113 H 113 H Pulse Rate [ From Monitor] Respiratory 41 H 40 H 41 H Rate Blood Pressure 99/57 89/52 98/53 O2 Sat by Pulse 92 91 Oximetry 02/03/21 02/03/21 02/03/21 01:30 01:45 02:00 Temperature Pulse Rate 112 H 113 H 113 H Pulse Rate [ From Monitor] Respiratory 40 H 40 H 41 H Rate Blood Pressure 94/61 99/49 97/59 O2 Sat by Pulse 92 94 93 Oximetry 02/03/21 02/03/21 02/03/21 02:15 02:30 02:45 Temperature Pulse Rate 114 H 113 H 112 H Pulse Rate [ From Monitor] Respiratory 41 H 38 H 41 H Rate Blood Pressure 94/61 105/63 109/56 O2 Sat by Pulse 91 98 93 Oximetry 02/03/21 02/03/21 02/03/21 03:01 03:15 03:31 Temperature Pulse Rate 115 H 110 H 114 H Pulse Rate [ From Monitor] Respiratory 37 H 39 H 41 H Rate Blood Pressure 104/52 104/52 104/50 O2 Sat by Pulse 94 89 93 Oximetry 02/03/21 02/03/21 02/03/21 03:33 03:45 04:00 Temperature 100.2 F H Pulse Rate 112 H 116 H Pulse Rate [ 85 From Monitor] Respiratory 38 H 31 H Rate Blood Pressure 104/50 107/56 O2 Sat by Pulse 90 94 Oximetry 02/03/21 02/03/21 02/03/21 04:10 04:15 04:30 Temperature Pulse Rate 114 H 114 H 115 H Pulse Rate [ From Monitor] Respiratory 38 H 41 H Rate Blood Pressure 104/50 107/56 97/55 O2 Sat by Pulse 90 92 96 Oximetry 02/03/21 02/03/21 02/03/21 04:45 05:00 05:15 Temperature Pulse Rate 115 H 114 H 115 H Pulse Rate [ From Monitor] Respiratory 38 H 36 H 33 H Rate Blood Pressure 97/55 103/54 109/64 O2 Sat by Pulse 93 95 91 Oximetry 02/03/21 02/03/21 02/03/21 05:30 05:45 06:01 Temperature Pulse Rate 114 H 114 H 116 H Pulse Rate [ From Monitor] Respiratory 36 H 33 H 14 Rate Blood Pressure 106/58 106/58 102/43 O2 Sat by Pulse 100 93 Oximetry 02/03/21 02/03/21 02/03/21 06:15 06:31 06:45 Temperature Pulse Rate 114 H 116 H 116 H Pulse Rate [ From Monitor] Respiratory 32 H 44 H 35 H Rate Blood Pressure 102/43 102/43 123/36 O2 Sat by Pulse 93 94 94 Oximetry 02/03/21 02/03/21 07:01 08:00 Temperature 99.5 F Pulse Rate 115 H 115 H Pulse Rate [ From Monitor] Respiratory 43 H Rate Blood Pressure 124/85 124/85 O2 Sat by Pulse 94 94 Oximetry - Lab 02/03/21 05:25 02/03/21 05:25 Most recent lab results ABG pH 7.208 (7.320-7.450) L 02/02/21 02:58 ABG pCO2 46.6 mm Hg 01/26/21 08:30 ABG pO2 124.5 mm Hg (80.0-90.0) H 01/26/21 08:30 ABG HCO3 21.7 mmol/L (20.0-26.0) 01/26/21 08:30 ABG O2 Saturation 95.8 (0-100) 02/02/21 02:58 Calcium 7.8 mg/dL (8.4-10.2) L 02/03/21 05:25 Calcium 7.9 mg/dL (8.4-10.2) L 02/03/21 05:25 Phosphorus 8.50 mg/dL (2.5-4.5) H 02/03/21 05:25 Magnesium 2.50 mg/dL (1.7-2.3) H 02/03/21 05:25 Medications & Allergies - Medications Allergies/Adverse Reactions: Allergies No Known Allergies Allergy (Verified 01/27/21 15:55) Per Peg López Home Medications: Home Medications Medication Instructions Recorded Confirmed Last Taken Type No Known Home Medications [No 01/27/21 01/27/21 Unknown History Reported Home Medications] Active Medications: Generic Name Dose Route Start Last Admin Trade Name Freq PRN Reason Stop Dose Admin Albumin Human 25 gm 01/27/21 09:35 Albumin Human 25% (25 Gm/100 Ml) Inj IV MELECIO PRN Hypotension Amiodarone HCl 200 mg 01/30/21 10:00 02/03/21 09:40 Amiodarone 200 Mg Tab PO 200 mg DAILY JACK Administration Lipase/Protease/Amylase 1 each 01/27/21 11:37 Lipase 10,500/Protease 25,000/Amylase 43,750 (Units) Dr Cap FEEDTUBE PRN PRN For Clogged Feeding Tube Ascorbic Acid 500 mg 02/02/21 11:00 02/03/21 09:40 Ascorbic Acid 500 Mg Tab PO 500 mg BID JACK Administration Cholecalciferol 5,000 unit 02/02/21 11:00 02/03/21 09:40 Cholecalciferol (Vit D3) 5,000 Unit Tab PO 5,000 unit DAILY JACK Administration Dextrose 50 ml 01/29/21 12:24 Dextrose 50% In Water (25gm) 50 Ml Syringe IV Q30MIN PRN Hypoglycemia Protocol Famotidine 20 mg 01/27/21 10:00 02/03/21 09:40 Famotidine 20 Mg/2 Ml Inj IV 20 mg DAILY JACK Administration Fentanyl 50 mcg 01/25/21 11:32 01/28/21 06:10 Fentanyl 100 Mcg/2 Ml Inj IV 50 mcg Q10MIN PRN Administration ANALGESIA Heparin Sodium (Porcine) 5,000 unit 01/28/21 09:27 Heparin 10,000 Units/10 Ml Vial IV Q6H PRN Anti-Xa Assay < 0.1 units/ml Hydrophilic Ointment 1 applic 01/25/21 13:27 Lip Therapy Vaseline TP Q2HR PRN Dry Lips Norepinephrine 4 mg in 250 mls @ 7.5 mls/hr 01/25/21 17:04 01/31/21 09:05 Levophed Drip 4 Mg/Ns 250 Ml IV 2 mcg/min TITR JACK 7.5 mls/hr Titration Protocol 2 MCG/MIN Sodium Chloride 100 mls @ 999 mls/hr 01/27/21 09:35 Nacl 0.9% IV MELECIO PRN Hypotension Vasopressin 20 unit/ Sodium 101 mls @ 9.09 mls/hr 01/28/21 07:00 01/30/21 08:55 Chloride IV Infused TITR JACK Titration Protocol 0.03 UNITS/MIN Heparin Sodium/Sodium Chloride 25,000 unit in 500 mls @ 30 mls/hr 01/28/21 11:00 02/03/21 03:33 Heparin/ 0.45% Nacl-25,000 Unit/500 Ml IV 1,500 units/hr TITR JACK 30 mls/hr Administration Protocol 1,500 UNITS/HR Cefepime HCl 1 gm in 100 mls @ 200 mls/hr 02/02/21 18:00 02/02/21 17:08 Cefepime/Ns 1 Gm/100 Ml IV 02/06/21 18:29 200 mls/hr QPM JACK Administration Protocol Insulin Human Regular 0 units 01/29/21 13:00 02/03/21 05:20 Insulin Regular, Human 100 Units/1 Ml SUB-Q 1 units Q6HR JACK Administration Protocol Metoclopramide HCl 10 mg 02/02/21 14:00 02/03/21 05:19 Metoclopramide 10 Mg/2 Ml Inj IV 10 mg Q8H JACK Administration Multi-Ingred Cream/Lotion/Oil/Oint 1 applic 01/25/21 13:27 Mineral Oil/Petrolatum, White Ophth Oint 3.5 Gm OU Q4HR PRN Dry Eye(s) Ondansetron HCl 4 mg 01/22/21 23:03 Ondansetron 4 Mg/2 Ml Inj IV Q8H PRN Nausea And Vomiting Senna/Docusate Sodium 1 tab 01/25/21 22:00 02/03/21 09:40 Sennosides/Docusate Sodium 8.6/50 Mg Tab FEEDTUBE 1 tab BID JACK Administration Simple Syrup 15 ml 01/27/21 11:37 Simple Syrup 15 Ml FEEDTUBE PRN PRN Hypoglycemia Simple Syrup 30 ml 01/27/21 11:37 Simple Syrup 15 Ml FEEDTUBE PRN PRN Hypoglycemia Sodium Bicarbonate 325 mg 01/27/21 11:37 Sodium Bicarbonate 325 Mg Tab FEEDTUBE PRN PRN For Clogged Feeding Tube Sodium Chloride 10 ml 01/22/21 23:45 02/03/21 09:41 Sodium Chloride 0.9% 10 Ml Flush Syringe IV 10 ml BID JACK Administration Sodium Chloride 10 ml 01/22/21 23:03 Sodium Chloride 0.9% 10 Ml Flush Syringe IV PRN PRN LINE FLUSH Voriconazole 300 mg 01/29/21 11:00 02/03/21 09:40 Voriconazole 200 Mg Tab PO 300 mg Q12HR JACK Administration Zinc Sulfate 220 mg 02/02/21 11:00 02/03/21 09:40 Zinc Sulfate 220 Mg Cap PO 220 mg BID JACK Administration
--- NOTE | 2021-02-03 13:01 | Progress Note ---
Assessment and Plan Cultures: SARS CoV2 PCR: positive 01/22/2021 blood culture: No growth 01/25/2021 endotracheal aspirate culture: Mold, sent to reference laboratory for further evaluation. 02/03/2021 blood culture: in process 02/03/2021 ET aspirate culture: in process. A/P: 55/M with obesity, admitted with: #Shock: likely secondary to severe COVID-19. #Leukemoid reaction: multifactorial, from below. On empiric abx. #Bilateral pneumonia: Secondary to COVID-19. Very high d-dimer. DVT scan negative. #Mold in sputum: ?colonization. Awaiting ID, meanwhile, initiated PO voriconazole given steroids and Actemra. Avoid ABLC given renal failure. #Acute hypoxic respiratory failure: Failed BiPAP. Requiring mechanical ventilation. #Subcutaneous emphysema, b/l pneumothorax, was seen by surgery and underwent right-sided chest tube placement 01/31/2021, left chest tube placement by Dr. Yee on 02/01/2021. #SEDRICK: creatinine elevated, on HD per nephrology. #Morbid obesity Recs: -f/u new cultures -continue IV Cefepime + Vancomycin, D2 of 5 -s/p Actemra on 01/26/2021 -completed steroids -continue PO voriconazole for mold in sputum given use of steroids and Actemra. Avoiding ABLC given renal failure. F/u Aspergillus galactomannan and 1,3 [id number] -prophylactic anticoagulation based on d-dimer per hospital protocol. -extremely poor prognosis, consider DNR status Misael Dudley MD, FACP [facility] ([facility] O: [phone] F: [phone] Subjective Date of service: 02/03/21 Principal diagnosis: Ac hypoxemic resp failure; COVID-19; Pneumonia; Sepsis; Morbid obesity Interval history: Low grade fever. Remains on the vent, high requirements FiO2 100%, PEEP of 14. Labs with leukemoid reaction. Objective - Exam Narrative Exam: Physical Exam (reviewed in chart to minimize risk of transmission) Constitutional: deferred Head, Ears, Nose: deferred Eyes: deferred Neck: deferred Oral: deferred Cardiovascular: deferred Respiratory: deferred GI: deferred Musculoskeletal: deferred Skin: deferred Hem/Lymphatic: deferred Psych: deferred Neurological: deferred - Constitutional Vitals: Vital Signs Temp Pulse Resp BP Pulse Ox 99.5 F 109 H 43 H 105/53 95 02/03/21 08:00 02/03/21 11:30 02/03/21 11:30 02/03/21 11:30 02/03/21 11:30 Temperature -Last 24 Hours Temperature 99.5 F Temperature 100.2 F Temperature 100.1 F Temperature 99.2 F Temperature 99.2 F Temperature 98.1 F Temperature 98.1 F - Labs CBC & Chem 7: 02/03/21 05:25 02/03/21 05:25 Labs: Abnormal lab results 01/29/21 01/30/21 02/02/21 Range/Units Unknown 15:35 16:22 WBC (4.5-11.0) K/mm3 Hgb (11.8-15.2) gm/dl Hct (35.5-45.6) % Seg Neuts % (Manual) (40.0-70.0) % Lymphocytes % (Manual) (13.4-35.0) % Seg Neutrophils # Man (1.8-7.7) K/mm3 Monocytes # (Manual) (0.0-0.8) K/mm3 Eosinophils # (Manual) (0.0-0.4) K/mm3 D-Dimer (0-234) ng/mlDDU Heparin Anti-Xa Level 0.10 L (0.3-0.7) U.I./ml Potassium (3.6-5.0) mmol/L Chloride (98-107) mmol/L Carbon Dioxide (22-30) mmol/L BUN (9-20) mg/dL Creatinine (0.8-1.3) mg/dL Glucose (75-100) mg/dL POC Glucose (70-105) mg/dL Calcium (8.4-10.2) mg/dL Phosphorus (2.5-4.5) mg/dL Magnesium (1.7-2.3) mg/dL Ferritin (30.0-300.0) ng/mL Total Bilirubin (0.1-1.2) mg/dL AST (5-40) units/L ALT (7-56) units/L Alkaline Phosphatase (35-129) units/L Ammonia (25-60) umol/L Lactate Dehydrogenase (91-180) units/L C-Reactive Protein (0.00-1.30) mg/dL Total Protein (6.3-8.2) g/dL Albumin (3.9-5) g/dL Free T3 Index 1.1 L (2.3-4.2) pg/mL Miscellaneous Test Flexitest 1 H 02/02/21 02/02/21 02/02/21 Range/Units 17:52 23:22 23:23 WBC (4.5-11.0) K/mm3 Hgb (11.8-15.2) gm/dl Hct (35.5-45.6) % Seg Neuts % (Manual) (40.0-70.0) % Lymphocytes % (Manual) (13.4-35.0) % Seg Neutrophils # Man (1.8-7.7) K/mm3 Monocytes # (Manual) (0.0-0.8) K/mm3 Eosinophils # (Manual) (0.0-0.4) K/mm3 D-Dimer (0-234) ng/mlDDU Heparin Anti-Xa Level 0.20 L (0.3-0.7) U.I./ml Potassium (3.6-5.0) mmol/L Chloride (98-107) mmol/L Carbon Dioxide (22-30) mmol/L BUN (9-20) mg/dL Creatinine (0.8-1.3) mg/dL Glucose (75-100) mg/dL POC Glucose 170 H 139 H (70-105) mg/dL Calcium (8.4-10.2) mg/dL Phosphorus (2.5-4.5) mg/dL Magnesium (1.7-2.3) mg/dL Ferritin (30.0-300.0) ng/mL Total Bilirubin (0.1-1.2) mg/dL AST (5-40) units/L ALT (7-56) units/L Alkaline Phosphatase (35-129) units/L Ammonia (25-60) umol/L Lactate Dehydrogenase (91-180) units/L C-Reactive Protein (0.00-1.30) mg/dL Total Protein (6.3-8.2) g/dL Albumin (3.9-5) g/dL Free T3 Index (2.3-4.2) pg/mL Miscellaneous Test 02/02/21 02/02/21 02/03/21 Range/Units Unknown Unknown 04:47 WBC 60.2 H* (4.5-11.0) K/mm3 Hgb 11.0 L (11.8-15.2) gm/dl Hct 33.7 L (35.5-45.6) % Seg Neuts % (Manual) 94.0 H (40.0-70.0) % Lymphocytes % (Manual) 3.0 L (13.4-35.0) % Seg Neutrophils # Man 56.6 H (1.8-7.7) K/mm3 Monocytes # (Manual) 1.2 H (0.0-0.8) K/mm3 Eosinophils # (Manual) 0.6 H (0.0-0.4) K/mm3 D-Dimer (0-234) ng/mlDDU Heparin Anti-Xa Level (0.3-0.7) U.I./ml Potassium (3.6-5.0) mmol/L Chloride (98-107) mmol/L Carbon Dioxide (22-30) mmol/L BUN (9-20) mg/dL Creatinine (0.8-1.3) mg/dL Glucose (75-100) mg/dL POC Glucose 158 H (70-105) mg/dL Calcium (8.4-10.2) mg/dL Phosphorus (2.5-4.5) mg/dL Magnesium (1.7-2.3) mg/dL Ferritin (30.0-300.0) ng/mL Total Bilirubin (0.1-1.2) mg/dL AST (5-40) units/L ALT (7-56) units/L Alkaline Phosphatase (35-129) units/L Ammonia 83.0 H (25-60) umol/L Lactate Dehydrogenase (91-180) units/L C-Reactive Protein (0.00-1.30) mg/dL Total Protein (6.3-8.2) g/dL Albumin (3.9-5) g/dL Free T3 Index (2.3-4.2) pg/mL Miscellaneous Test 02/03/21 02/03/21 02/03/21 Range/Units 05:25 05:25 05:25 WBC 55.8 H* (4.5-11.0) K/mm3 Hgb 10.3 L (11.8-15.2) gm/dl Hct 32.4 L (35.5-45.6) % Seg Neuts % (Manual) (40.0-70.0) % Lymphocytes % (Manual) (13.4-35.0) % Seg Neutrophils # Man (1.8-7.7) K/mm3 Monocytes # (Manual) (0.0-0.8) K/mm3 Eosinophils # (Manual) (0.0-0.4) K/mm3 D-Dimer 4328.24 H (0-234) ng/mlDDU Heparin Anti-Xa Level (0.3-0.7) U.I./ml Potassium 5.4 H (3.6-5.0) mmol/L Chloride (98-107) mmol/L Carbon Dioxide (22-30) mmol/L BUN 86 H (9-20) mg/dL Creatinine 5.8 H (0.8-1.3) mg/dL Glucose 154 H (75-100) mg/dL POC Glucose (70-105) mg/dL Calcium 7.8 L (8.4-10.2) mg/dL Phosphorus (2.5-4.5) mg/dL Magnesium (1.7-2.3) mg/dL Ferritin (30.0-300.0) ng/mL Total Bilirubin 2.30 H (0.1-1.2) mg/dL AST 103 H (5-40) units/L ALT 200 H (7-56) units/L Alkaline Phosphatase 135 H (35-129) units/L Ammonia (25-60) umol/L Lactate Dehydrogenase (91-180) units/L C-Reactive Protein (0.00-1.30) mg/dL Total Protein 5.2 L (6.3-8.2) g/dL Albumin 2.2 L (3.9-5) g/dL Free T3 Index (2.3-4.2) pg/mL Miscellaneous Test 02/03/21 02/03/21 02/03/21 Range/Units 05:25 05:25 07:35 WBC (4.5-11.0) K/mm3 Hgb (11.8-15.2) gm/dl Hct (35.5-45.6) % Seg Neuts % (Manual) (40.0-70.0) % Lymphocytes % (Manual) (13.4-35.0) % Seg Neutrophils # Man (1.8-7.7) K/mm3 Monocytes # (Manual) (0.0-0.8) K/mm3 Eosinophils # (Manual) (0.0-0.4) K/mm3 D-Dimer (0-234) ng/mlDDU Heparin Anti-Xa Level < 0.10 L (0.3-0.7) U.I./ml Potassium 5.6 H (3.6-5.0) mmol/L Chloride 97.3 L (98-107) mmol/L Carbon Dioxide 21 L (22-30) mmol/L BUN 86 H (9-20) mg/dL Creatinine 5.6 H (0.8-1.3) mg/dL Glucose 152 H (75-100) mg/dL POC Glucose (70-105) mg/dL Calcium 7.9 L (8.4-10.2) mg/dL Phosphorus 8.50 H (2.5-4.5) mg/dL Magnesium 2.50 H (1.7-2.3) mg/dL Ferritin 2914.0 H (30.0-300.0) ng/mL Total Bilirubin (0.1-1.2) mg/dL AST (5-40) units/L ALT (7-56) units/L Alkaline Phosphatase (35-129) units/L Ammonia (25-60) umol/L Lactate Dehydrogenase 1310 H (91-180) units/L C-Reactive Protein 2.50 H (0.00-1.30) mg/dL Total Protein (6.3-8.2) g/dL Albumin (3.9-5) g/dL Free T3 Index (2.3-4.2) pg/mL Miscellaneous Test 02/03/21 Range/Units 11:35 WBC (4.5-11.0) K/mm3 Hgb (11.8-15.2) gm/dl Hct (35.5-45.6) % Seg Neuts % (Manual) (40.0-70.0) % Lymphocytes % (Manual) (13.4-35.0) % Seg Neutrophils # Man (1.8-7.7) K/mm3 Monocytes # (Manual) (0.0-0.8) K/mm3 Eosinophils # (Manual) (0.0-0.4) K/mm3 D-Dimer (0-234) ng/mlDDU Heparin Anti-Xa Level (0.3-0.7) U.I./ml Potassium (3.6-5.0) mmol/L Chloride (98-107) mmol/L Carbon Dioxide (22-30) mmol/L BUN (9-20) mg/dL Creatinine (0.8-1.3) mg/dL Glucose (75-100) mg/dL POC Glucose 146 H (70-105) mg/dL Calcium (8.4-10.2) mg/dL Phosphorus (2.5-4.5) mg/dL Magnesium (1.7-2.3) mg/dL Ferritin (30.0-300.0) ng/mL Total Bilirubin (0.1-1.2) mg/dL AST (5-40) units/L ALT (7-56) units/L Alkaline Phosphatase (35-129) units/L Ammonia (25-60) umol/L Lactate Dehydrogenase (91-180) units/L C-Reactive Protein (0.00-1.30) mg/dL Total Protein (6.3-8.2) g/dL Albumin (3.9-5) g/dL Free T3 Index (2.3-4.2) pg/mL Miscellaneous Test
--- NOTE | 2021-02-03 13:10 | Procedure Note ---
Date of procedure: 02/03/21 Pre-op diagnosis: Left persistent pneumothorax Post-op diagnosis: same Procedure: Left chest tube placement (full dictation # [id number]) Please see dictated notes for full details
--- NOTE | 2021-02-03 13:13 | Progress Note ---
Assessment and Plan Acute hypoxemic respiratory failure COVID-19 infection Multifocal pneumonia Hypernatremia Sepsis Morbid obesity with BMI of 40.0-44.9, adult - another chest tube placed to upper chest percutaneously - all chest tubes to continuous wall suction - FiO2 back up to 100% - still keeping peep at 14 re: PTX - wean supplemental oxygen for target O2 sat's > 92% acutely - continue Reglan to 10 mg IV q8h - continue HD/UF per nephrology prescription for toxin and volume clearance - Vasopressors for target MAP > 65 mmHg - continue care as below otherwise; - Daily SAT and SBT assessment as tolerated - VAP bundle addressed - continue lung protective strategies - continue bronchodilators with pulmonary hygiene per RT - wean per pulmonary driven protocols otherwise - avoid nephrotoxins, renally dose all medications - continue to avoid benzodiazepine's, reduce the possibility of delirium - complete AB's per ID rec's - prn analgesia per CPOT score - Maintenance of sleep-wake cycle, avoid delirium - enteral nutritional support at goal rate as tolerated - G.I. & VTE prophylaxis - PT/OT/ROM exercises - continue mobility protocols for pressure ulcer prophylaxis - Monitor hemodynamics closely - continue other care per attending / other consultants - discharge planning ongoing concurrently COVID SPECIFIC INTERVENTIONS - Remdesivir as per ID/Pulmonary developed protocols (receiving) - continue systemic steroids for severe COVID-19 infection (Dexamethasone) - follow repeat COVID tests results - zinc and vitamin C supplementation - Monitor inflammatory markers per facility protocol - ferritin, Ddimer, CRP - therapeutic anticoagulation per system Protocol based on d-dimer and clinical considerations (VTE prophylaxis doses now) - Continue contact and airborne isolation .... Re-evaluate in am & prn CONDITION: CRITICAL PROGNOSIS: GRAVE CODE STATUS: FULL CODE The high probability of a clinically significant, sudden or life-threatening deterioration of the [respiratory, cardiovascular & neurologic] system(s) required my full and direct attention, intervention and personal management. The aggregate critical care time was [40] minutes without overlap. Time includes spent on; [x] Data Review and interpretation [x] Patient assessment and monitoring of vital signs [x] Documentation [x] Medication orders and management Subjective Date of service: 02/03/21 Principal diagnosis: Ac hypoxemic resp failure; COVID-19; Pneumonia; Sepsis; Morbid obesity Interval history: Patient is seen today for: Acute hypoxemic respiratory failure; COVID- 19infection; Multifocal pneumonia; Hypernatremia; Sepsis; Morbid obesity Seen and examined at bedside; 24hour events reviewed; nursing and respiratory care staff consulted; no adverse overnight events reported to me; resting in bed; remains on MVS; leucocytosis noted but a little better today; no high grade fevers; left pneumothorax is persistent; still with AMS Objective Vital Signs - 12hr 02/03/21 02/03/21 02/03/21 01:15 01:30 01:45 Temperature Pulse Rate 113 H 112 H 113 H Pulse Rate [ From Monitor] Respiratory 41 H 40 H 40 H Rate Blood Pressure 98/53 94/61 99/49 O2 Sat by Pulse 91 92 94 Oximetry 02/03/21 02/03/21 02/03/21 02:00 02:15 02:30 Temperature Pulse Rate 113 H 114 H 113 H Pulse Rate [ From Monitor] Respiratory 41 H 41 H 38 H Rate Blood Pressure 97/59 94/61 105/63 O2 Sat by Pulse 93 91 98 Oximetry 02/03/21 02/03/21 02/03/21 02:45 03:01 03:15 Temperature Pulse Rate 112 H 115 H 110 H Pulse Rate [ From Monitor] Respiratory 41 H 37 H 39 H Rate Blood Pressure 109/56 104/52 104/52 O2 Sat by Pulse 93 94 89 Oximetry 02/03/21 02/03/21 02/03/21 03:31 03:33 03:45 Temperature 100.2 F H Pulse Rate 114 H 112 H Pulse Rate [ From Monitor] Respiratory 41 H 38 H Rate Blood Pressure 104/50 104/50 O2 Sat by Pulse 93 90 Oximetry 02/03/21 02/03/21 02/03/21 04:00 04:10 04:15 Temperature Pulse Rate 116 H 114 H 114 H Pulse Rate [ 85 From Monitor] Respiratory 31 H 38 H Rate Blood Pressure 107/56 104/50 107/56 O2 Sat by Pulse 94 90 92 Oximetry 02/03/21 02/03/21 02/03/21 04:30 04:45 05:00 Temperature Pulse Rate 115 H 115 H 114 H Pulse Rate [ From Monitor] Respiratory 41 H 38 H 36 H Rate Blood Pressure 97/55 97/55 103/54 O2 Sat by Pulse 96 93 95 Oximetry 02/03/21 02/03/21 02/03/21 05:15 05:30 05:45 Temperature Pulse Rate 115 H 114 H 114 H Pulse Rate [ From Monitor] Respiratory 33 H 36 H 33 H Rate Blood Pressure 109/64 106/58 106/58 O2 Sat by Pulse 91 100 93 Oximetry 02/03/21 02/03/21 02/03/21 06:01 06:15 06:31 Temperature Pulse Rate 116 H 114 H 116 H Pulse Rate [ From Monitor] Respiratory 14 32 H 44 H Rate Blood Pressure 102/43 102/43 102/43 O2 Sat by Pulse 93 94 Oximetry 02/03/21 02/03/21 02/03/21 06:45 07:01 07:15 Temperature Pulse Rate 116 H 115 H 115 H Pulse Rate [ From Monitor] Respiratory 35 H 43 H 32 H Rate Blood Pressure 123/36 124/85 124/85 O2 Sat by Pulse 94 94 94 Oximetry 02/03/21 02/03/21 02/03/21 07:31 07:45 08:00 Temperature 99.5 F Pulse Rate 114 H 113 H 114 H Pulse Rate [ From Monitor] Respiratory 27 H 27 H Rate Blood Pressure 94/70 94/70 124/85 O2 Sat by Pulse 94 94 94 Oximetry 02/03/21 02/03/21 02/03/21 08:01 08:15 08:31 Temperature Pulse Rate 112 H 112 H 114 H Pulse Rate [ From Monitor] Respiratory 25 H 26 H 30 H Rate Blood Pressure 80/32 80/32 183/106 O2 Sat by Pulse 94 94 94 Oximetry 02/03/21 02/03/21 02/03/21 08:45 09:01 09:15 Temperature Pulse Rate 113 H 114 H 115 H Pulse Rate [ From Monitor] Respiratory 30 H 21 15 Rate Blood Pressure 183/106 243/139 104/54 O2 Sat by Pulse 94 95 95 Oximetry 02/03/21 02/03/21 02/03/21 09:31 09:45 10:01 Temperature Pulse Rate 115 H 115 H 113 H Pulse Rate [ From Monitor] Respiratory 29 H 16 26 H Rate Blood Pressure 123/57 123/57 186/85 O2 Sat by Pulse 95 96 94 Oximetry 02/03/21 02/03/21 02/03/21 10:15 10:31 10:45 Temperature Pulse Rate 112 H 112 H 111 H Pulse Rate [ From Monitor] Respiratory 32 H 35 H 22 Rate Blood Pressure 111/41 131/31 97/39 O2 Sat by Pulse 95 95 95 Oximetry 02/03/21 02/03/21 02/03/21 11:01 11:15 11:30 Temperature Pulse Rate 110 H 110 H 109 H Pulse Rate [ From Monitor] Respiratory 28 H 28 H 43 H Rate Blood Pressure 101/65 101/65 105/53 O2 Sat by Pulse 95 95 95 Oximetry Constitutional: appears uncomfortable, other (middle aged obese male with mildly increased respiratory effort at rest on MVS) Eyes: non-icteric ENT: oropharynx moist, other (ETT 24 cm BRE) Neck: supple, no lymphadenopathy, no JVD, other (large circumference) Effort: mildly labored Ascultation: Bilateral: diminished breath sounds, rhonchi, other (L&R chest tubes in place; + SQ emphysema) Percussion: Bilateral: not dull Cardiovascular: regular rate and rhythm Gastrointestinal: normoactive bowel sounds, soft, non-tender, non-distended (protuberant) Integumentary: normal Extremities: no cyanosis, no edema, pink and warm, pulses normal Neurologic: pupils equal and round, unable to assess (sedated) Psychiatric: other (unable top assess re: AMS) CBC and BMP: 02/03/21 05:25 02/03/21 05:25 ABG, PT/INR, D-dimer: ABG ABG pH 7.208 (7.320-7.450) L 02/02/21 02:58 POC ABG pCO2 58.3 mmHg (32.0-48.0) H 02/02/21 02:58 ABG pCO2 46.6 mm Hg 01/26/21 08:30 POC ABG pO2 91.1 mmHg (83-108) 02/02/21 02:58 ABG pO2 124.5 mm Hg (80.0-90.0) H 01/26/21 08:30 POC ABG HCO3 22.7 02/02/21 02:58 ABG O2 Saturation 95.8 (0-100) 02/02/21 02:58 PT/INR, D-dimer PT 15.1 Sec. (12.2-14.9) H 02/02/21 Unknown INR 1.13 (0.87-1.13) 02/02/21 Unknown D-Dimer 4328.24 ng/mlDDU (0-234) H 02/03/21 05:25 Abnormal lab findings: Abnormal Labs 01/22/21 01/22/21 01/22/21 11:06 11:06 11:06 WBC RBC Hgb Hct Plt Count Lymph % (Auto) Lymph # (Auto) [place] # (Auto) Seg Neutrophils % Seg Neuts % (Manual) Lymphocytes % (Manual) Nucleated RBC % Seg Neutrophils # Seg Neutrophils # Man Lymphocytes # (Manual) Monocytes # (Manual) Eosinophils # (Manual) PT INR D-Dimer 2625.11 H Heparin Anti-Xa Level ABG pH POC ABG pCO2 POC ABG pO2 ABG pO2 ABG Base Excess ABG Hemoglobin ABG Oxyhemoglobin ABG Sodium ABG Potassium ABG Chloride ABG Glucose Carboxyhemoglobin Sodium Potassium Chloride Carbon Dioxide BUN Creatinine Glucose 130 H POC Glucose Hemoglobin A1c Lactic Acid Calcium Phosphorus Magnesium Ferritin 557.5 H Total Bilirubin Direct Bilirubin AST ALT Alkaline Phosphatase Ammonia Lactate Dehydrogenase 799 H Total Creatine Kinase C-Reactive Protein 3.30 H Total Protein Albumin Tbfit-9-Iofhcfruj Iwtnj-7-Yepwhcbni Beta Globulins Abnorm Protein Band 1 PEP Interpretation Triglycerides TSH Thyroxine (T4) Free T3 Index Arterial Blood Glucose Arterial Blood Ionized Calcium Immunofix Electrophor Coronavirus (PCR) Miscellaneous Test 01/22/21 01/22/21 01/22/21 11:06 11:06 11:06 WBC 19.2 H RBC 5.63 H Hgb 15.8 H Hct 49.0 H Plt Count Lymph % (Auto) Lymph # (Auto) [place] # (Auto) Seg Neutrophils % Seg Neuts % (Manual) 92.0 H Lymphocytes % (Manual) 1.0 L Nucleated RBC % 1.0 H Seg Neutrophils # Seg Neutrophils # Man 17.7 H Lymphocytes # (Manual) 0.2 L Monocytes # (Manual) 1.0 H Eosinophils # (Manual) PT INR D-Dimer Heparin Anti-Xa Level ABG pH POC ABG pCO2 POC ABG pO2 ABG pO2 ABG Base Excess ABG Hemoglobin ABG Oxyhemoglobin ABG Sodium ABG Potassium ABG Chloride ABG Glucose Carboxyhemoglobin Sodium Potassium 3.3 L Chloride Carbon Dioxide 20 L BUN 32 H Creatinine Glucose 130 H POC Glucose Hemoglobin A1c Lactic Acid 4.20 H* Calcium Phosphorus Magnesium Ferritin Total Bilirubin Direct Bilirubin AST ALT Alkaline Phosphatase Ammonia Lactate Dehydrogenase Total Creatine Kinase C-Reactive Protein Total Protein Albumin 2.9 L Codqy-0-Bbylbtrry Ifbbk-4-Emuixgyga Beta Globulins Abnorm Protein Band 1 PEP Interpretation Triglycerides TSH Thyroxine (T4) Free T3 Index Arterial Blood Glucose Arterial Blood Ionized Calcium Immunofix Electrophor Coronavirus (PCR) Miscellaneous Test 01/22/21 01/22/21 01/23/21 11:06 12:03 05:29 WBC 19.0 H RBC 5.24 H Hgb 15.3 H Hct 46.0 H Plt Count Lymph % (Auto) 4.4 L Lymph # (Auto) 0.8 L [place] # (Auto) 1.2 H Seg Neutrophils % 89.1 H Seg Neuts % (Manual) Lymphocytes % (Manual) Nucleated RBC % Seg Neutrophils # 16.9 H Seg Neutrophils # Man Lymphocytes # (Manual) Monocytes # (Manual) Eosinophils # (Manual) PT INR D-Dimer Heparin Anti-Xa Level ABG pH POC ABG pCO2 30.7 L POC ABG pO2 61.4 L ABG pO2 ABG Base Excess ABG Hemoglobin ABG Oxyhemoglobin 90.5 L ABG Sodium ABG Potassium ABG Chloride ABG Glucose Carboxyhemoglobin 1.7 H Sodium Potassium Chloride Carbon Dioxide BUN Creatinine Glucose POC Glucose Hemoglobin A1c 6.2 H Lactic Acid Calcium Phosphorus Magnesium Ferritin Total Bilirubin Direct Bilirubin AST ALT Alkaline Phosphatase Ammonia Lactate Dehydrogenase Total Creatine Kinase C-Reactive Protein Total Protein Albumin Bqoso-4-Buacmrgcf Webci-4-Iqltwtano Beta Globulins Abnorm Protein Band 1 PEP Interpretation Triglycerides TSH Thyroxine (T4) Free T3 Index Arterial Blood Glucose Arterial Blood Ionized Calcium Immunofix Electrophor Coronavirus (PCR) Miscellaneous Test 01/23/21 01/23/21 01/23/21 05:29 09:00 16:55 WBC RBC Hgb Hct Plt Count Lymph % (Auto) Lymph # (Auto) [place] # (Auto) Seg Neutrophils % Seg Neuts % (Manual) Lymphocytes % (Manual) Nucleated RBC % Seg Neutrophils # Seg Neutrophils # Man Lymphocytes # (Manual) Monocytes # (Manual) Eosinophils # (Manual) PT INR D-Dimer Heparin Anti-Xa Level ABG pH POC ABG pCO2 POC ABG pO2 ABG pO2 ABG Base Excess ABG Hemoglobin ABG Oxyhemoglobin ABG Sodium ABG Potassium ABG Chloride ABG Glucose Carboxyhemoglobin Sodium Potassium 3.5 L Chloride Carbon Dioxide BUN 29 H 27 H Creatinine Glucose 132 H 103 H POC Glucose Hemoglobin A1c Lactic Acid Calcium Phosphorus Magnesium Ferritin Total Bilirubin Direct Bilirubin AST ALT Alkaline Phosphatase Ammonia Lactate Dehydrogenase Total Creatine Kinase C-Reactive Protein Total Protein Albumin 2.9 L 2.9 L Ncmtq-1-Jaaruqaxy Yekxl-6-Uyzlacjcr Beta Globulins Abnorm Protein Band 1 PEP Interpretation Triglycerides TSH Thyroxine (T4) Free T3 Index Arterial Blood Glucose Arterial Blood Ionized Calcium Immunofix Electrophor Coronavirus (PCR) Positive A Miscellaneous Test 01/24/21 01/24/21 01/24/21 05:50 20:20 20:20 WBC RBC Hgb Hct Plt Count Lymph % (Auto) Lymph # (Auto) [place] # (Auto) Seg Neutrophils % Seg Neuts % (Manual) Lymphocytes % (Manual) Nucleated RBC % Seg Neutrophils # Seg Neutrophils # Man Lymphocytes # (Manual) Monocytes # (Manual) Eosinophils # (Manual) PT INR D-Dimer Heparin Anti-Xa Level ABG pH POC ABG pCO2 POC ABG pO2 ABG pO2 ABG Base Excess ABG Hemoglobin ABG Oxyhemoglobin ABG Sodium ABG Potassium ABG Chloride ABG Glucose Carboxyhemoglobin Sodium 148 H Potassium 5.3 H D Chloride 109.3 H Carbon Dioxide BUN 26 H Creatinine 0.7 L Glucose 130 H POC Glucose Hemoglobin A1c Lactic Acid Calcium Phosphorus Magnesium Ferritin 1031.0 H Total Bilirubin Direct Bilirubin AST 45 H ALT Alkaline Phosphatase Ammonia Lactate Dehydrogenase 1511 H Total Creatine Kinase C-Reactive Protein 12.00 H Total Protein Albumin 2.9 L Nqgpc-9-Nrzodgmts Ezmvi-6-Bdlnniqtf Beta Globulins Abnorm Protein Band 1 PEP Interpretation Triglycerides TSH Thyroxine (T4) Free T3 Index Arterial Blood Glucose Arterial Blood Ionized Calcium Immunofix Electrophor Coronavirus (PCR) Miscellaneous Test 01/24/21 01/25/21 01/25/21 20:20 06:22 06:22 WBC RBC Hgb Hct Plt Count Lymph % (Auto) Lymph # (Auto) [place] # (Auto) Seg Neutrophils % Seg Neuts % (Manual) Lymphocytes % (Manual) Nucleated RBC % Seg Neutrophils # Seg Neutrophils # Man Lymphocytes # (Manual) Monocytes # (Manual) Eosinophils # (Manual) PT INR D-Dimer > 40642 H > 74787 H Heparin Anti-Xa Level ABG pH POC ABG pCO2 POC ABG pO2 ABG pO2 ABG Base Excess ABG Hemoglobin ABG Oxyhemoglobin ABG Sodium ABG Potassium ABG Chloride ABG Glucose Carboxyhemoglobin Sodium 153 H Potassium 3.4 L D Chloride 116.1 H Carbon Dioxide 21 L BUN 27 H Creatinine Glucose 133 H POC Glucose Hemoglobin A1c Lactic Acid Calcium Phosphorus Magnesium Ferritin Total Bilirubin 1.30 H Direct Bilirubin AST 50 H ALT Alkaline Phosphatase 159 H Ammonia Lactate Dehydrogenase Total Creatine Kinase C-Reactive Protein Total Protein Albumin 2.9 L Upclk-8-Tfxsnqhnm Vfmwg-6-Xydisikje Beta Globulins Abnorm Protein Band 1 PEP Interpretation Triglycerides TSH Thyroxine (T4) Free T3 Index Arterial Blood Glucose Arterial Blood Ionized Calcium Immunofix Electrophor Coronavirus (PCR) Miscellaneous Test 01/25/21 01/25/21 01/25/21 06:22 09:35 11:25 WBC RBC Hgb Hct Plt Count Lymph % (Auto) Lymph # (Auto) [place] # (Auto) Seg Neutrophils % Seg Neuts % (Manual) Lymphocytes % (Manual) Nucleated RBC % Seg Neutrophils # Seg Neutrophils # Man Lymphocytes # (Manual) Monocytes # (Manual) Eosinophils # (Manual) PT INR D-Dimer Heparin Anti-Xa Level ABG pH 7.453 H 7.228 L POC ABG pCO2 60.0 H POC ABG pO2 44.9 L 111.7 H ABG pO2 ABG Base Excess ABG Hemoglobin ABG Oxyhemoglobin 81.4 L ABG Sodium 153.1 H 150.9 H ABG Potassium 3.3 L ABG Chloride 116.0 H 117.0 H ABG Glucose 151 H 155 H Carboxyhemoglobin Sodium Potassium Chloride Carbon Dioxide BUN Creatinine Glucose POC Glucose Hemoglobin A1c Lactic Acid Calcium Phosphorus Magnesium Ferritin Total Bilirubin Direct Bilirubin AST ALT Alkaline Phosphatase Ammonia Lactate Dehydrogenase Total Creatine Kinase C-Reactive Protein 16.80 H Total Protein Albumin Mmfjs-6-Ykvarlqwh Onqmb-1-Qblzvbdcd Beta Globulins Abnorm Protein Band 1 PEP Interpretation Triglycerides TSH Thyroxine (T4) Free T3 Index Arterial Blood Glucose 151 H 155 H Arterial Blood Ionized Calcium Immunofix Electrophor Coronavirus (PCR) Miscellaneous Test 01/25/21 01/26/21 01/26/21 21:00 07:32 07:39 WBC RBC Hgb Hct Plt Count Lymph % (Auto) Lymph # (Auto) [place] # (Auto) Seg Neutrophils % Seg Neuts % (Manual) Lymphocytes % (Manual) Nucleated RBC % Seg Neutrophils # Seg Neutrophils # Man Lymphocytes # (Manual) Monocytes # (Manual) Eosinophils # (Manual) PT INR D-Dimer Heparin Anti-Xa Level ABG pH POC ABG pCO2 POC ABG pO2 68.5 L ABG pO2 ABG Base Excess ABG Hemoglobin ABG Oxyhemoglobin 91.3 L ABG Sodium 151.9 H ABG Potassium ABG Chloride 117.0 H ABG Glucose 140 H Carboxyhemoglobin Sodium 151 H Potassium Chloride 116.7 H Carbon Dioxide 20 L BUN 59 H Creatinine 3.4 H D Glucose 121 H POC Glucose Hemoglobin A1c Lactic Acid Calcium Phosphorus Magnesium Ferritin 1921.0 H Total Bilirubin Direct Bilirubin AST 45 H ALT Alkaline Phosphatase 137 H Ammonia Lactate Dehydrogenase 1559 H Total Creatine Kinase C-Reactive Protein 20.90 H Total Protein Albumin 2.3 L Ywyid-4-Qfkbujixu Libky-5-Uppgdnaam Beta Globulins Abnorm Protein Band 1 PEP Interpretation Triglycerides TSH Thyroxine (T4) Free T3 Index Arterial Blood Glucose 140 H Arterial Blood Ionized Calcium Immunofix Electrophor Coronavirus (PCR) Miscellaneous Test 01/26/21 01/26/21 01/26/21 08:30 17:55 20:39 WBC RBC Hgb Hct Plt Count Lymph % (Auto) Lymph # (Auto) [place] # (Auto) Seg Neutrophils % Seg Neuts % (Manual) Lymphocytes % (Manual) Nucleated RBC % Seg Neutrophils # Seg Neutrophils # Man Lymphocytes # (Manual) Monocytes # (Manual) Eosinophils # (Manual) PT INR D-Dimer Heparin Anti-Xa Level ABG pH 7.287 L POC ABG pCO2 POC ABG pO2 ABG pO2 124.5 H ABG Base Excess -5.0 L ABG Hemoglobin ABG Oxyhemoglobin ABG Sodium ABG Potassium ABG Chloride ABG Glucose Carboxyhemoglobin Sodium 152 H Potassium 6.0 H D Chloride 117.2 H Carbon Dioxide 15 L BUN 80 H Creatinine 5.6 H D Glucose 156 H POC Glucose 141 H Hemoglobin A1c Lactic Acid Calcium 7.4 L Phosphorus Magnesium Ferritin Total Bilirubin Direct Bilirubin AST ALT Alkaline Phosphatase Ammonia Lactate Dehydrogenase Total Creatine Kinase C-Reactive Protein Total Protein Albumin Zynug-5-Kedycsbqc Gioqz-5-Jmjbbtpmf Beta Globulins Abnorm Protein Band 1 PEP Interpretation Triglycerides TSH Thyroxine (T4) Free T3 Index Arterial Blood Glucose Arterial Blood Ionized Calcium Immunofix Electrophor Coronavirus (PCR) Miscellaneous Test 01/26/21 01/27/21 01/27/21 23:14 02:55 05:00 WBC RBC Hgb Hct Plt Count Lymph % (Auto) Lymph # (Auto) [place] # (Auto) Seg Neutrophils % Seg Neuts % (Manual) Lymphocytes % (Manual) Nucleated RBC % Seg Neutrophils # Seg Neutrophils # Man Lymphocytes # (Manual) Monocytes # (Manual) Eosinophils # (Manual) PT INR D-Dimer Heparin Anti-Xa Level ABG pH 7.215 L POC ABG pCO2 48.9 H POC ABG pO2 143.3 H ABG pO2 ABG Base Excess ABG Hemoglobin ABG Oxyhemoglobin ABG Sodium 150.0 H ABG Potassium 5.0 H ABG Chloride 118.0 H ABG Glucose 180 H Carboxyhemoglobin Sodium 154 H Potassium 5.3 H Chloride 117.2 H Carbon Dioxide 19 L BUN 92 H Creatinine 6.4 H Glucose 175 H POC Glucose 148 H Hemoglobin A1c Lactic Acid Calcium 7.9 L Phosphorus Magnesium Ferritin Total Bilirubin Direct Bilirubin AST ALT Alkaline Phosphatase Ammonia Lactate Dehydrogenase Total Creatine Kinase C-Reactive Protein Total Protein Albumin Onelj-6-Dzfaqxklf Ewddh-5-Bpkjqgvrx Beta Globulins Abnorm Protein Band 1 PEP Interpretation Triglycerides TSH Thyroxine (T4) Free T3 Index Arterial Blood Glucose 180 H Arterial Blood Ionized Calcium 4.5 L Immunofix Electrophor Coronavirus (PCR) Miscellaneous Test 01/27/21 01/27/21 01/27/21 05:00 05:14 11:42 WBC RBC Hgb Hct Plt Count Lymph % (Auto) Lymph # (Auto) [place] # (Auto) Seg Neutrophils % Seg Neuts % (Manual) Lymphocytes % (Manual) Nucleated RBC % Seg Neutrophils # Seg Neutrophils # Man Lymphocytes # (Manual) Monocytes # (Manual) Eosinophils # (Manual) PT INR D-Dimer Heparin Anti-Xa Level ABG pH POC ABG pCO2 POC ABG pO2 ABG pO2 ABG Base Excess ABG Hemoglobin ABG Oxyhemoglobin ABG Sodium ABG Potassium ABG Chloride ABG Glucose Carboxyhemoglobin Sodium Potassium Chloride Carbon Dioxide BUN Creatinine Glucose POC Glucose 159 H 171 H Hemoglobin A1c Lactic Acid Calcium Phosphorus Magnesium Ferritin Total Bilirubin Direct Bilirubin AST ALT Alkaline Phosphatase Ammonia Lactate Dehydrogenase Total Creatine Kinase 258 H C-Reactive Protein Total Protein Albumin Bjdaq-2-Ezieldjfo Bppxe-5-Hbklfeqkb Beta Globulins Abnorm Protein Band 1 PEP Interpretation Triglycerides TSH Thyroxine (T4) Free T3 Index Arterial Blood Glucose Arterial Blood Ionized Calcium Immunofix Electrophor Coronavirus (PCR) Miscellaneous Test 01/27/21 01/27/21 01/27/21 11:55 11:55 18:00 WBC RBC Hgb Hct Plt Count Lymph % (Auto) Lymph # (Auto) [place] # (Auto) Seg Neutrophils % Seg Neuts % (Manual) Lymphocytes % (Manual) Nucleated RBC % Seg Neutrophils # Seg Neutrophils # Man Lymphocytes # (Manual) Monocytes # (Manual) Eosinophils # (Manual) PT INR D-Dimer Heparin Anti-Xa Level ABG pH POC ABG pCO2 POC ABG pO2 ABG pO2 ABG Base Excess ABG Hemoglobin ABG Oxyhemoglobin ABG Sodium ABG Potassium ABG Chloride ABG Glucose Carboxyhemoglobin Sodium Potassium Chloride Carbon Dioxide BUN Creatinine Glucose POC Glucose 185 H Hemoglobin A1c Lactic Acid Calcium Phosphorus Magnesium Ferritin Total Bilirubin Direct Bilirubin AST ALT Alkaline Phosphatase Ammonia Lactate Dehydrogenase Total Creatine Kinase C-Reactive Protein Total Protein Albumin 2.5 L Afxkr-6-Iwmuntsfo 0.7 H Ksrii-1-Kbomwvrkb 1.2 H Beta Globulins 0.7 H Abnorm Protein Band 1 0.5 H PEP Interpretation see below H Triglycerides TSH Thyroxine (T4) Free T3 Index Arterial Blood Glucose Arterial Blood Ionized Calcium Immunofix Electrophor see below H Coronavirus (PCR) Miscellaneous Test 01/28/21 01/28/21 01/28/21 04:00 04:00 10:03 WBC RBC Hgb Hct Plt Count 104 L Lymph % (Auto) Lymph # (Auto) [place] # (Auto) Seg Neutrophils % Seg Neuts % (Manual) Lymphocytes % (Manual) Nucleated RBC % Seg Neutrophils # Seg Neutrophils # Man Lymphocytes # (Manual) Monocytes # (Manual) Eosinophils # (Manual) PT INR D-Dimer Heparin Anti-Xa Level ABG pH 7.272 L POC ABG pCO2 48.4 H POC ABG pO2 ABG pO2 ABG Base Excess ABG Hemoglobin ABG Oxyhemoglobin ABG Sodium ABG Potassium ABG Chloride ABG Glucose 174 H Carboxyhemoglobin Sodium Potassium Chloride Carbon Dioxide BUN Creatinine Glucose POC Glucose Hemoglobin A1c Lactic Acid Calcium Phosphorus Magnesium Ferritin Total Bilirubin Direct Bilirubin AST ALT Alkaline Phosphatase Ammonia Lactate Dehydrogenase Total Creatine Kinase C-Reactive Protein Total Protein Albumin Oychk-4-Djzcumhub Mzwzt-4-Dhswaecwd Beta Globulins Abnorm Protein Band 1 PEP Interpretation Triglycerides 369 H TSH Thyroxine (T4) Free T3 Index Arterial Blood Glucose 174 H Arterial Blood Ionized Calcium 4.3 L Immunofix Electrophor Coronavirus (PCR) Miscellaneous Test 01/28/21 01/28/21 01/28/21 10:03 10:03 10:03 WBC RBC Hgb Hct Plt Count Lymph % (Auto) Lymph # (Auto) [place] # (Auto) Seg Neutrophils % Seg Neuts % (Manual) Lymphocytes % (Manual) Nucleated RBC % Seg Neutrophils # Seg Neutrophils # Man Lymphocytes # (Manual) Monocytes # (Manual) Eosinophils # (Manual) PT 17.3 H INR 1.36 H D-Dimer Heparin Anti-Xa Level ABG pH POC ABG pCO2 POC ABG pO2 ABG pO2 ABG Base Excess ABG Hemoglobin ABG Oxyhemoglobin ABG Sodium ABG Potassium ABG Chloride ABG Glucose Carboxyhemoglobin Sodium Potassium 5.2 H Chloride Carbon Dioxide BUN 69 H Creatinine 5.6 H Glucose 220 H POC Glucose Hemoglobin A1c Lactic Acid Calcium 7.7 L Phosphorus Magnesium Ferritin Total Bilirubin Direct Bilirubin AST ALT Alkaline Phosphatase Ammonia Lactate Dehydrogenase Total Creatine Kinase C-Reactive Protein Total Protein Albumin Gcryr-0-Alxkzpfhr Bmijl-1-Inibaxkof Beta Globulins Abnorm Protein Band 1 PEP Interpretation Triglycerides TSH 0.013 L Thyroxine (T4) Free T3 Index Arterial Blood Glucose Arterial Blood Ionized Calcium Immunofix Electrophor Coronavirus (PCR) Miscellaneous Test 01/28/21 01/28/21 01/28/21 11:34 13:40 15:31 WBC RBC Hgb Hct Plt Count Lymph % (Auto) Lymph # (Auto) [place] # (Auto) Seg Neutrophils % Seg Neuts % (Manual) Lymphocytes % (Manual) Nucleated RBC % Seg Neutrophils # Seg Neutrophils # Man Lymphocytes # (Manual) Monocytes # (Manual) Eosinophils # (Manual) PT INR D-Dimer Heparin Anti-Xa Level 1.21 H ABG pH POC ABG pCO2 POC ABG pO2 ABG pO2 ABG Base Excess ABG Hemoglobin ABG Oxyhemoglobin ABG Sodium ABG Potassium ABG Chloride ABG Glucose Carboxyhemoglobin Sodium Potassium Chloride Carbon Dioxide BUN Creatinine Glucose POC Glucose 221 H Hemoglobin A1c Lactic Acid Calcium Phosphorus Magnesium 2.50 H Ferritin Total Bilirubin Direct Bilirubin AST ALT Alkaline Phosphatase Ammonia Lactate Dehydrogenase Total Creatine Kinase C-Reactive Protein Total Protein Albumin Xwtwl-2-Zrvzsakbb Syvjv-5-Urlhjvuqv Beta Globulins Abnorm Protein Band 1 PEP Interpretation Triglycerides TSH Thyroxine (T4) Free T3 Index Arterial Blood Glucose Arterial Blood Ionized Calcium Immunofix Electrophor Coronavirus (PCR) Miscellaneous Test 01/28/21 01/29/21 01/29/21 18:02 04:00 04:30 WBC RBC Hgb Hct Plt Count Lymph % (Auto) Lymph # (Auto) [place] # (Auto) Seg Neutrophils % Seg Neuts % (Manual) Lymphocytes % (Manual) Nucleated RBC % Seg Neutrophils # Seg Neutrophils # Man Lymphocytes # (Manual) Monocytes # (Manual) Eosinophils # (Manual) PT INR D-Dimer Heparin Anti-Xa Level 0.81 H ABG pH 7.229 L POC ABG pCO2 48.8 H POC ABG pO2 ABG pO2 ABG Base Excess ABG Hemoglobin ABG Oxyhemoglobin ABG Sodium 135.3 L ABG Potassium 5.2 H ABG Chloride ABG Glucose 264 H Carboxyhemoglobin Sodium Potassium Chloride Carbon Dioxide BUN Creatinine Glucose POC Glucose 215 H Hemoglobin A1c Lactic Acid Calcium Phosphorus Magnesium Ferritin Total Bilirubin Direct Bilirubin AST ALT Alkaline Phosphatase Ammonia Lactate Dehydrogenase Total Creatine Kinase C-Reactive Protein Total Protein Albumin Wgyom-0-Uuldcgwog Wlagv-1-Mukchwicu Beta Globulins Abnorm Protein Band 1 PEP Interpretation Triglycerides TSH Thyroxine (T4) Free T3 Index Arterial Blood Glucose 264 H Arterial Blood Ionized Calcium 4.0 L Immunofix Electrophor Coronavirus (PCR) Miscellaneous Test 01/29/21 01/29/21 01/29/21 13:23 17:56 23:12 WBC RBC Hgb Hct Plt Count Lymph % (Auto) Lymph # (Auto) [place] # (Auto) Seg Neutrophils % Seg Neuts % (Manual) Lymphocytes % (Manual) Nucleated RBC % Seg Neutrophils # Seg Neutrophils # Man Lymphocytes # (Manual) Monocytes # (Manual) Eosinophils # (Manual) PT INR D-Dimer Heparin Anti-Xa Level ABG pH POC ABG pCO2 POC ABG pO2 ABG pO2 ABG Base Excess ABG Hemoglobin ABG Oxyhemoglobin ABG Sodium ABG Potassium ABG Chloride ABG Glucose Carboxyhemoglobin Sodium Potassium Chloride Carbon Dioxide BUN Creatinine Glucose POC Glucose 198 H 200 H 172 H Hemoglobin A1c Lactic Acid Calcium Phosphorus Magnesium Ferritin Total Bilirubin Direct Bilirubin AST ALT Alkaline Phosphatase Ammonia Lactate Dehydrogenase Total Creatine Kinase C-Reactive Protein Total Protein Albumin Anlmv-7-Vdcpmhqip Louva-1-Wpecoyehs Beta Globulins Abnorm Protein Band 1 PEP Interpretation Triglycerides TSH Thyroxine (T4) Free T3 Index Arterial Blood Glucose Arterial Blood Ionized Calcium Immunofix Electrophor Coronavirus (PCR) Miscellaneous Test 01/29/21 01/29/21 01/30/21 Unknown Unknown 04:00 WBC RBC Hgb Hct Plt Count Lymph % (Auto) Lymph # (Auto) [place] # (Auto) Seg Neutrophils % Seg Neuts % (Manual) Lymphocytes % (Manual) Nucleated RBC % Seg Neutrophils # Seg Neutrophils # Man Lymphocytes # (Manual) Monocytes # (Manual) Eosinophils # (Manual) PT INR D-Dimer Heparin Anti-Xa Level 0.85 H ABG pH 7.304 L POC ABG pCO2 POC ABG pO2 112.8 H ABG pO2 ABG Base Excess ABG Hemoglobin ABG Oxyhemoglobin ABG Sodium ABG Potassium 5.2 H ABG Chloride ABG Glucose 160 H Carboxyhemoglobin Sodium Potassium Chloride Carbon Dioxide BUN Creatinine Glucose POC Glucose Hemoglobin A1c Lactic Acid Calcium Phosphorus Magnesium Ferritin Total Bilirubin Direct Bilirubin AST ALT Alkaline Phosphatase Ammonia Lactate Dehydrogenase Total Creatine Kinase C-Reactive Protein Total Protein Albumin Uhxux-4-Fkixynmyg Yuavb-5-Lymnxebyf Beta Globulins Abnorm Protein Band 1 PEP Interpretation Triglycerides TSH Thyroxine (T4) Free T3 Index Arterial Blood Glucose 160 H Arterial Blood Ionized Calcium 4.1 L Immunofix Electrophor Coronavirus (PCR) Miscellaneous Test Flexitest 1 H 01/30/21 01/30/21 01/30/21 04:05 05:00 05:00 WBC 27.4 H RBC Hgb 11.6 L Hct 34.8 L Plt Count 126 L Lymph % (Auto) Lymph # (Auto) [place] # (Auto) Seg Neutrophils % Seg Neuts % (Manual) Lymphocytes % (Manual) Nucleated RBC % Seg Neutrophils # Seg Neutrophils # Man Lymphocytes # (Manual) Monocytes # (Manual) Eosinophils # (Manual) PT INR D-Dimer Heparin Anti-Xa Level ABG pH 7.288 L POC ABG pCO2 49.7 H POC ABG pO2 169.7 H ABG pO2 ABG Base Excess ABG Hemoglobin ABG Oxyhemoglobin 98.4 H ABG Sodium 132.5 L ABG Potassium 4.8 H ABG Chloride ABG Glucose 196 H Carboxyhemoglobin Sodium 136 L Potassium Chloride 97.4 L Carbon Dioxide BUN 75 H Creatinine 5.4 H Glucose 184 H POC Glucose Hemoglobin A1c Lactic Acid Calcium 7.4 L Phosphorus 8.60 H Magnesium 2.40 H Ferritin Total Bilirubin Direct Bilirubin AST ALT Alkaline Phosphatase Ammonia Lactate Dehydrogenase Total Creatine Kinase C-Reactive Protein Total Protein Albumin Yedrr-1-Fezrbglhd Skyll-4-Tqibxczyz Beta Globulins Abnorm Protein Band 1 PEP Interpretation Triglycerides TSH Thyroxine (T4) Free T3 Index Arterial Blood Glucose 196 H Arterial Blood Ionized Calcium 4.0 L Immunofix Electrophor Coronavirus (PCR) Miscellaneous Test 01/30/21 01/30/21 01/30/21 05:32 11:23 15:35 WBC RBC Hgb Hct Plt Count Lymph % (Auto) Lymph # (Auto) [place] # (Auto) Seg Neutrophils % Seg Neuts % (Manual) Lymphocytes % (Manual) Nucleated RBC % Seg Neutrophils # Seg Neutrophils # Man Lymphocytes # (Manual) Monocytes # (Manual) Eosinophils # (Manual) PT INR D-Dimer Heparin Anti-Xa Level ABG pH POC ABG pCO2 POC ABG pO2 ABG pO2 ABG Base Excess ABG Hemoglobin ABG Oxyhemoglobin ABG Sodium ABG Potassium ABG Chloride ABG Glucose Carboxyhemoglobin Sodium Potassium Chloride Carbon Dioxide BUN Creatinine Glucose POC Glucose 169 H 177 H Hemoglobin A1c Lactic Acid Calcium Phosphorus Magnesium Ferritin Total Bilirubin Direct Bilirubin AST ALT Alkaline Phosphatase Ammonia Lactate Dehydrogenase Total Creatine Kinase C-Reactive Protein Total Protein Albumin Xlvol-6-Bxkzqfwcn Havkw-2-Qwjrnmsme Beta Globulins Abnorm Protein Band 1 PEP Interpretation Triglycerides TSH Thyroxine (T4) 3.3 L Free T3 Index Arterial Blood Glucose Arterial Blood Ionized Calcium Immunofix Electrophor Coronavirus (PCR) Miscellaneous Test 01/30/21 01/30/21 01/30/21 15:35 18:13 23:49 WBC RBC Hgb Hct Plt Count Lymph % (Auto) Lymph # (Auto) [place] # (Auto) Seg Neutrophils % Seg Neuts % (Manual) Lymphocytes % (Manual) Nucleated RBC % Seg Neutrophils # Seg Neutrophils # Man Lymphocytes # (Manual) Monocytes # (Manual) Eosinophils # (Manual) PT INR D-Dimer Heparin Anti-Xa Level ABG pH POC ABG pCO2 POC ABG pO2 ABG pO2 ABG Base Excess ABG Hemoglobin ABG Oxyhemoglobin ABG Sodium ABG Potassium ABG Chloride ABG Glucose Carboxyhemoglobin Sodium Potassium Chloride Carbon Dioxide BUN Creatinine Glucose POC Glucose 123 H 143 H Hemoglobin A1c Lactic Acid Calcium Phosphorus Magnesium Ferritin Total Bilirubin Direct Bilirubin AST ALT Alkaline Phosphatase Ammonia Lactate Dehydrogenase Total Creatine Kinase C-Reactive Protein Total Protein Albumin Opynf-3-Ncyrckmbu Ntrih-1-Drbxmclvo Beta Globulins Abnorm Protein Band 1 PEP Interpretation Triglycerides TSH Thyroxine (T4) Free T3 Index 1.1 L Arterial Blood Glucose Arterial Blood Ionized Calcium Immunofix Electrophor Coronavirus (PCR) Miscellaneous Test 01/31/21 01/31/21 01/31/21 03:30 03:30 03:30 WBC 31.3 H RBC Hgb 11.4 L Hct 34.6 L Plt Count Lymph % (Auto) Lymph # (Auto) [place] # (Auto) Seg Neutrophils % Seg Neuts % (Manual) Lymphocytes % (Manual) Nucleated RBC % Seg Neutrophils # Seg Neutrophils # Man Lymphocytes # (Manual) Monocytes # (Manual) Eosinophils # (Manual) PT INR D-Dimer Heparin Anti-Xa Level ABG pH POC ABG pCO2 POC ABG pO2 ABG pO2 ABG Base Excess ABG Hemoglobin ABG Oxyhemoglobin ABG Sodium ABG Potassium ABG Chloride ABG Glucose Carboxyhemoglobin Sodium Potassium 5.3 H Chloride Carbon Dioxide BUN 111 H Creatinine 6.8 H Glucose 143 H POC Glucose Hemoglobin A1c Lactic Acid Calcium 7.3 L Phosphorus Magnesium Ferritin Total Bilirubin 1.70 H 1.60 H Direct Bilirubin 1.6 H AST 57 H 57 H ALT Alkaline Phosphatase Ammonia Lactate Dehydrogenase Total Creatine Kinase C-Reactive Protein Total Protein 5.5 L D 5.5 L Albumin 2.5 L 2.5 L Kkwdk-6-Rwmdlieda Jiszd-3-Hnhudncvn Beta Globulins Abnorm Protein Band 1 PEP Interpretation Triglycerides TSH Thyroxine (T4) Free T3 Index Arterial Blood Glucose Arterial Blood Ionized Calcium Immunofix Electrophor Coronavirus (PCR) Miscellaneous Test 01/31/21 01/31/21 01/31/21 04:54 12:00 17:19 WBC RBC Hgb Hct Plt Count Lymph % (Auto) Lymph # (Auto) [place] # (Auto) Seg Neutrophils % Seg Neuts % (Manual) Lymphocytes % (Manual) Nucleated RBC % Seg Neutrophils # Seg Neutrophils # Man Lymphocytes # (Manual) Monocytes # (Manual) Eosinophils # (Manual) PT INR D-Dimer Heparin Anti-Xa Level ABG pH POC ABG pCO2 POC ABG pO2 ABG pO2 ABG Base Excess ABG Hemoglobin ABG Oxyhemoglobin ABG Sodium ABG Potassium ABG Chloride ABG Glucose Carboxyhemoglobin Sodium Potassium Chloride Carbon Dioxide BUN Creatinine Glucose POC Glucose 133 H 152 H 142 H Hemoglobin A1c Lactic Acid Calcium Phosphorus Magnesium Ferritin Total Bilirubin Direct Bilirubin AST ALT Alkaline Phosphatase Ammonia Lactate Dehydrogenase Total Creatine Kinase C-Reactive Protein Total Protein Albumin Xliur-0-Btsvjrdka Ojdto-6-Kpkabqrjw Beta Globulins Abnorm Protein Band 1 PEP Interpretation Triglycerides TSH Thyroxine (T4) Free T3 Index Arterial Blood Glucose Arterial Blood Ionized Calcium Immunofix Electrophor Coronavirus (PCR) Miscellaneous Test 01/31/21 02/01/21 02/01/21 23:46 00:25 03:10 WBC RBC Hgb Hct Plt Count Lymph % (Auto) Lymph # (Auto) [place] # (Auto) Seg Neutrophils % Seg Neuts % (Manual) Lymphocytes % (Manual) Nucleated RBC % Seg Neutrophils # Seg Neutrophils # Man Lymphocytes # (Manual) Monocytes # (Manual) Eosinophils # (Manual) PT INR D-Dimer Heparin Anti-Xa Level 0.19 L ABG pH 7.294 L POC ABG pCO2 50.8 H POC ABG pO2 77.2 L ABG pO2 ABG Base Excess ABG Hemoglobin ABG Oxyhemoglobin 92.9 L ABG Sodium 131.4 L ABG Potassium 5.2 H ABG Chloride 97.0 L ABG Glucose 158 H Carboxyhemoglobin Sodium Potassium Chloride Carbon Dioxide BUN Creatinine Glucose POC Glucose 140 H Hemoglobin A1c Lactic Acid Calcium Phosphorus Magnesium Ferritin Total Bilirubin Direct Bilirubin AST ALT Alkaline Phosphatase Ammonia Lactate Dehydrogenase Total Creatine Kinase C-Reactive Protein Total Protein Albumin Xicbk-9-Feofqawcs Cjvin-5-Nkulchhwa Beta Globulins Abnorm Protein Band 1 PEP Interpretation Triglycerides TSH Thyroxine (T4) Free T3 Index Arterial Blood Glucose 158 H Arterial Blood Ionized Calcium 3.9 L Immunofix Electrophor Coronavirus (PCR) Miscellaneous Test 02/01/21 02/01/21 02/01/21 04:00 04:00 05:36 WBC RBC Hgb 11.6 L Hct 34.6 L Plt Count Lymph % (Auto) Lymph # (Auto) [place] # (Auto) Seg Neutrophils % Seg Neuts % (Manual) Lymphocytes % (Manual) Nucleated RBC % Seg Neutrophils # Seg Neutrophils # Man Lymphocytes # (Manual) Monocytes # (Manual) Eosinophils # (Manual) PT INR D-Dimer Heparin Anti-Xa Level ABG pH POC ABG pCO2 POC ABG pO2 ABG pO2 ABG Base Excess ABG Hemoglobin ABG Oxyhemoglobin ABG Sodium ABG Potassium ABG Chloride ABG Glucose Carboxyhemoglobin Sodium 136 L Potassium 5.2 H Chloride 93.6 L Carbon Dioxide BUN 78 H Creatinine 5.7 H Glucose 152 H POC Glucose 167 H Hemoglobin A1c Lactic Acid Calcium 7.1 L Phosphorus Magnesium Ferritin Total Bilirubin 3.00 H Direct Bilirubin AST 117 H ALT 108 H Alkaline Phosphatase Ammonia Lactate Dehydrogenase Total Creatine Kinase C-Reactive Protein Total Protein 5.6 L Albumin 2.7 L Xqops-2-Puglxuqkn Ocrjc-6-Gnokrfotj Beta Globulins Abnorm Protein Band 1 PEP Interpretation Triglycerides TSH Thyroxine (T4) Free T3 Index Arterial Blood Glucose Arterial Blood Ionized Calcium Immunofix Electrophor Coronavirus (PCR) Miscellaneous Test 02/01/21 02/01/21 02/01/21 09:15 11:42 17:28 WBC RBC Hgb Hct Plt Count Lymph % (Auto) Lymph # (Auto) [place] # (Auto) Seg Neutrophils % Seg Neuts % (Manual) Lymphocytes % (Manual) Nucleated RBC % Seg Neutrophils # Seg Neutrophils # Man Lymphocytes # (Manual) Monocytes # (Manual) Eosinophils # (Manual) PT 15.1 H INR D-Dimer Heparin Anti-Xa Level ABG pH POC ABG pCO2 POC ABG pO2 ABG pO2 ABG Base Excess ABG Hemoglobin ABG Oxyhemoglobin ABG Sodium ABG Potassium ABG Chloride ABG Glucose Carboxyhemoglobin Sodium Potassium Chloride Carbon Dioxide BUN Creatinine Glucose POC Glucose 159 H 171 H Hemoglobin A1c Lactic Acid Calcium Phosphorus Magnesium Ferritin Total Bilirubin Direct Bilirubin AST ALT Alkaline Phosphatase Ammonia Lactate Dehydrogenase Total Creatine Kinase C-Reactive Protein Total Protein Albumin Llrvu-9-[place] Qjcnw-6-Munlaylmc Beta Globulins Abnorm Protein Band 1 PEP Interpretation Triglycerides TSH Thyroxine (T4) Free T3 Index Arterial Blood Glucose Arterial Blood Ionized Calcium Immunofix Electrophor Coronavirus (PCR) Miscellaneous Test 02/01/21 02/02/21 02/02/21 23:06 02:58 05:06 WBC RBC Hgb Hct Plt Count Lymph % (Auto) Lymph # (Auto) [place] # (Auto) Seg Neutrophils % Seg Neuts % (Manual) Lymphocytes % (Manual) Nucleated RBC % Seg Neutrophils # Seg Neutrophils # Man Lymphocytes # (Manual) Monocytes # (Manual) Eosinophils # (Manual) PT INR D-Dimer Heparin Anti-Xa Level ABG pH 7.208 L POC ABG pCO2 58.3 H POC ABG pO2 ABG pO2 ABG Base Excess ABG Hemoglobin 11.6 L ABG Oxyhemoglobin ABG Sodium 131.4 L ABG Potassium 5.6 H ABG Chloride 97.0 L ABG Glucose 155 H Carboxyhemoglobin Sodium Potassium Chloride Carbon Dioxide BUN Creatinine Glucose POC Glucose 155 H 134 H Hemoglobin A1c Lactic Acid Calcium Phosphorus Magnesium Ferritin Total Bilirubin Direct Bilirubin AST ALT Alkaline Phosphatase Ammonia Lactate Dehydrogenase Total Creatine Kinase C-Reactive Protein Total Protein Albumin Pozck-3-Drdvsvffv Mqppt-8-Uheahugvh Beta Globulins Abnorm Protein Band 1 PEP Interpretation Triglycerides TSH Thyroxine (T4) Free T3 Index Arterial Blood Glucose 155 H Arterial Blood Ionized Calcium 3.9 L Immunofix Electrophor Coronavirus (PCR) Miscellaneous Test 02/02/21 02/02/21 02/02/21 11:10 16:22 17:52 WBC RBC Hgb Hct Plt Count Lymph % (Auto) Lymph # (Auto) [place] # (Auto) Seg Neutrophils % Seg Neuts % (Manual) Lymphocytes % (Manual) Nucleated RBC % Seg Neutrophils # Seg Neutrophils # Man Lymphocytes # (Manual) Monocytes # (Manual) Eosinophils # (Manual) PT INR D-Dimer Heparin Anti-Xa Level 0.10 L ABG pH POC ABG pCO2 POC ABG pO2 ABG pO2 ABG Base Excess ABG Hemoglobin ABG Oxyhemoglobin ABG Sodium ABG Potassium ABG Chloride ABG Glucose Carboxyhemoglobin Sodium Potassium Chloride Carbon Dioxide BUN Creatinine Glucose POC Glucose 179 H 170 H Hemoglobin A1c Lactic Acid Calcium Phosphorus Magnesium Ferritin Total Bilirubin Direct Bilirubin AST ALT Alkaline Phosphatase Ammonia Lactate Dehydrogenase Total Creatine Kinase C-Reactive Protein Total Protein Albumin Rxcwd-3-Oazvpwyeh Ebqew-4-Btatsxmdy Beta Globulins Abnorm Protein Band 1 PEP Interpretation Triglycerides TSH Thyroxine (T4) Free T3 Index Arterial Blood Glucose Arterial Blood Ionized Calcium Immunofix Electrophor Coronavirus (PCR) Miscellaneous Test 02/02/21 02/02/21 02/02/21 23:22 23:23 Unknown WBC RBC Hgb Hct Plt Count Lymph % (Auto) Lymph # (Auto) [place] # (Auto) Seg Neutrophils % Seg Neuts % (Manual) Lymphocytes % (Manual) Nucleated RBC % Seg Neutrophils # Seg Neutrophils # Man Lymphocytes # (Manual) Monocytes # (Manual) Eosinophils # (Manual) PT INR D-Dimer Heparin Anti-Xa Level 0.20 L ABG pH POC ABG pCO2 POC ABG pO2 ABG pO2 ABG Base Excess ABG Hemoglobin ABG Oxyhemoglobin ABG Sodium ABG Potassium ABG Chloride ABG Glucose Carboxyhemoglobin Sodium Potassium 5.9 H Chloride 95.0 L Carbon Dioxide BUN 118 H Creatinine 7.2 H Glucose 152 H POC Glucose 139 H Hemoglobin A1c Lactic Acid Calcium 7.1 L Phosphorus Magnesium Ferritin Total Bilirubin 2.90 H Direct Bilirubin AST 134 H ALT 169 H Alkaline Phosphatase Ammonia Lactate Dehydrogenase Total Creatine Kinase C-Reactive Protein Total Protein 5.0 L Albumin 2.5 L Qbyyr-5-Kjihmzfky Sualm-2-Hehfdjqxb Beta Globulins Abnorm Protein Band 1 PEP Interpretation Triglycerides TSH Thyroxine (T4) Free T3 Index Arterial Blood Glucose Arterial Blood Ionized Calcium Immunofix Electrophor Coronavirus (PCR) Miscellaneous Test 02/02/21 02/02/21 02/02/21 Unknown Unknown Unknown WBC 39.4 H RBC Hgb 10.7 L Hct 32.3 L Plt Count Lymph % (Auto) Lymph # (Auto) [place] # (Auto) Seg Neutrophils % Seg Neuts % (Manual) Lymphocytes % (Manual) Nucleated RBC % Seg Neutrophils # Seg Neutrophils # Man Lymphocytes # (Manual) Monocytes # (Manual) Eosinophils # (Manual) PT 15.1 H INR D-Dimer Heparin Anti-Xa Level ABG pH POC ABG pCO2 POC ABG pO2 ABG pO2 ABG Base Excess ABG Hemoglobin ABG Oxyhemoglobin ABG Sodium ABG Potassium ABG Chloride ABG Glucose Carboxyhemoglobin Sodium Potassium Chloride Carbon Dioxide BUN Creatinine Glucose POC Glucose Hemoglobin A1c Lactic Acid Calcium Phosphorus Magnesium Ferritin Total Bilirubin Direct Bilirubin AST ALT Alkaline Phosphatase Ammonia 83.0 H Lactate Dehydrogenase Total Creatine Kinase C-Reactive Protein Total Protein Albumin Nyspo-8-Uvviyrzkc Wvgqa-7-Dhqolpbqi Beta Globulins Abnorm Protein Band 1 PEP Interpretation Triglycerides TSH Thyroxine (T4) Free T3 Index Arterial Blood Glucose Arterial Blood Ionized Calcium Immunofix Electrophor Coronavirus (PCR) Miscellaneous Test 02/02/21 02/03/21 02/03/21 Unknown 04:47 05:25 WBC 60.2 H* 55.8 H* RBC Hgb 11.0 L 10.3 L Hct 33.7 L 32.4 L Plt Count Lymph % (Auto) Lymph # (Auto) [place] # (Auto) Seg Neutrophils % Seg Neuts % (Manual) 94.0 H Lymphocytes % (Manual) 3.0 L Nucleated RBC % Seg Neutrophils # Seg Neutrophils # Man 56.6 H Lymphocytes # (Manual) Monocytes # (Manual) 1.2 H Eosinophils # (Manual) 0.6 H PT INR D-Dimer Heparin Anti-Xa Level ABG pH POC ABG pCO2 POC ABG pO2 ABG pO2 ABG Base Excess ABG Hemoglobin ABG Oxyhemoglobin ABG Sodium ABG Potassium ABG Chloride ABG Glucose Carboxyhemoglobin Sodium Potassium Chloride Carbon Dioxide BUN Creatinine Glucose POC Glucose 158 H Hemoglobin A1c Lactic Acid Calcium Phosphorus Magnesium Ferritin Total Bilirubin Direct Bilirubin AST ALT Alkaline Phosphatase Ammonia Lactate Dehydrogenase Total Creatine Kinase C-Reactive Protein Total Protein Albumin Vtorg-0-Cmrvdjnjf Mvjfv-1-Zapkfdqmv Beta Globulins Abnorm Protein Band 1 PEP Interpretation Triglycerides TSH Thyroxine (T4) Free T3 Index Arterial Blood Glucose Arterial Blood Ionized Calcium Immunofix Electrophor Coronavirus (PCR) Miscellaneous Test 02/03/21 02/03/21 02/03/21 05:25 05:25 05:25 WBC RBC Hgb Hct Plt Count Lymph % (Auto) Lymph # (Auto) [place] # (Auto) Seg Neutrophils % Seg Neuts % (Manual) Lymphocytes % (Manual) Nucleated RBC % Seg Neutrophils # Seg Neutrophils # Man Lymphocytes # (Manual) Monocytes # (Manual) Eosinophils # (Manual) PT INR D-Dimer 4328.24 H Heparin Anti-Xa Level ABG pH POC ABG pCO2 POC ABG pO2 ABG pO2 ABG Base Excess ABG Hemoglobin ABG Oxyhemoglobin ABG Sodium ABG Potassium ABG Chloride ABG Glucose Carboxyhemoglobin Sodium Potassium 5.4 H 5.6 H Chloride 97.3 L Carbon Dioxide 21 L BUN 86 H 86 H Creatinine 5.8 H 5.6 H Glucose 154 H 152 H POC Glucose Hemoglobin A1c Lactic Acid Calcium 7.8 L 7.9 L Phosphorus 8.50 H Magnesium 2.50 H Ferritin Total Bilirubin 2.30 H Direct Bilirubin AST 103 H ALT 200 H Alkaline Phosphatase 135 H Ammonia Lactate Dehydrogenase 1310 H Total Creatine Kinase C-Reactive Protein 2.50 H Total Protein 5.2 L Albumin 2.2 L Bfiiq-2-Wieeqdojw Wtwlr-5-Xszbfdyuj Beta Globulins Abnorm Protein Band 1 PEP Interpretation Triglycerides TSH Thyroxine (T4) Free T3 Index Arterial Blood Glucose Arterial Blood Ionized Calcium Immunofix Electrophor Coronavirus (PCR) Miscellaneous Test 02/03/21 02/03/21 02/03/21 05:25 07:35 11:35 WBC RBC Hgb Hct Plt Count Lymph % (Auto) Lymph # (Auto) [place] # (Auto) Seg Neutrophils % Seg Neuts % (Manual) Lymphocytes % (Manual) Nucleated RBC % Seg Neutrophils # Seg Neutrophils # Man Lymphocytes # (Manual) Monocytes # (Manual) Eosinophils # (Manual) PT INR D-Dimer Heparin Anti-Xa Level < 0.10 L ABG pH POC ABG pCO2 POC ABG pO2 ABG pO2 ABG Base Excess ABG Hemoglobin ABG Oxyhemoglobin ABG Sodium ABG Potassium ABG Chloride ABG Glucose Carboxyhemoglobin Sodium Potassium Chloride Carbon Dioxide BUN Creatinine Glucose POC Glucose 146 H Hemoglobin A1c Lactic Acid Calcium Phosphorus Magnesium Ferritin 2914.0 H Total Bilirubin Direct Bilirubin AST ALT Alkaline Phosphatase Ammonia Lactate Dehydrogenase Total Creatine Kinase C-Reactive Protein Total Protein Albumin Vufdj-1-Iimlcbyed Woyhj-1-Uhfhwvsny Beta Globulins Abnorm Protein Band 1 PEP Interpretation Triglycerides TSH Thyroxine (T4) Free T3 Index Arterial Blood Glucose Arterial Blood Ionized Calcium Immunofix Electrophor Coronavirus (PCR) Miscellaneous Test Chest x-ray: image reviewed (persistent left pneumothorax despite chest tube in place) Allied health notes reviewed: nursing
[2021-02-03 13:40] LABS: Myeloperoxidase Antibody <1.0 AI (<1.0)
--- NOTE | 2021-02-03 14:24 | XRay Report ---
CHEST 1 VIEW 02/03/2021 1:43 PM INDICATION / CLINICAL INFORMATION: chest tube placement. COMPARISON: 02/03/21 2:58 AM FINDINGS: SUPPORT DEVICES: Interval placement of smallbore left pleural tube. Other tubes and lines are unchang ed. HEART / MEDIASTINUM: Stable. LUNGS / PLEURA: Bilateral pulmonary opacities are unchanged. Slight decrease in size of small left pn eumothorax after placement of pleural tube. Tiny right apical pneumothorax with right basilar chest t ube in place. ADDITIONAL FINDINGS: No significant additional findings. IMPRESSION: 1. Decrease in size of left pneumothorax after placement of left pleural tube. Signer Name: Sergio Colorado MD Signed: 02/03/2021 2:20 PM Workstation Name: [id number]
--- NOTE | 2021-02-03 14:37 | Progress Note ---
<CHAVEZANGIE OmarNat - Last Filed: 02/03/21 14:32> Assessment and Plan Assessment and plan: This is a 55-year-old male with morbid obesity, former nicotine abuse and venous insufficiency who was admitted as a COVID-19 PUI with acute hypoxic respiratory failure, sepsis, multifocal pneumonia Neuro: Acute metabolic encephalopathy, hepatic encephalopathy -NH3 noted at 83->lactulose ordered -EEG completed and read pending -Avoid delirium -Patient is slowly responsive Cardio: A. fib with RVR -Cardiology consulted, appreciate recommendations -Patient transitioned from IV amiodarone to p.o. amiodarone -Echocardiogram completed results -Blood pressure monitor per protocol -Wean vasopressor support for MAP goal greater than 65 Respiratory: Acute hypoxic respiratory failure, Bilateral pneumothorax -Intubated -[facility] consulted, patient recommendations -AM vent settings: AC TV 500, Rate 50, PEEP 14, 100% FiO2 -ABG and CXR reviewed -Dr. Yee aware of worsening pneumothorax -Dr. Avendaño placed chest tube at bedside; Left chest tube -Surgery consulted for chest tube -All chest tubes to wall suction placed by surgery -Serial ABG and CXR -VAP bundle -Continuous SPO2 monitoring GI: MO, malnutrition, transaminitis -pt is on trickle feeds->RN to advance slowly -Per RN pt had large BM -Reglan 10 mg every 8 -BR: Senokot -01/30 KUB reviewed -Renal ultrasound reviewed-> shows only hepatic steatosis -02/01 lipase 46 -Trend LFTs : Acute kidney injury secondary to vasomotor nephropathy, hyperkalemia -Nephrology consulted, appreciate recommendations -Patient initiated on hemodialysis 01/27 -HD per nephrology -Strict intake and output -arana in place -Avoid nephrotoxic medications-renally dose medications -trend BMP -Past 24 hours +1943 Endo: NAD -SSI -Accu-Cheks every 6 -Avoid hypoglycemia ID: COVID-19 pneumonia, septic shock, bilateral pneumonia,? Mold in sputum, Leukocytosis -Infectious disease consulted, appreciate recommendations (signed off 01/31) -Contact/droplet isolation -Dexamethasone for 10 days -Actemra administered 01/26 -P.o. voriconazole given steroids and Actemra -Per infectious disease: Avoid ABLC given renal failure -Follow-up ID labs -Trend COVID-19 inflammatory markers -S/p ABX therapy for pneumonia -Monitor WBC and fever curve -Follow blood cultures- NGTD Heme: Elevated D-dimer, leukocytosis -Anticoagulation with heparin drip -Trend CBC -Transfuse for hemoglobin less than 7 -Lower extremity Doppler ultrasound shows no evidence of DVT The high probability of a clinically significant, sudden or life threatening deterioration of the [multi] system(s) required my full and direct attention, intervention and personal management. The aggregate critical care time was [60] minutes. This time is in addition to time spent performing reported procedures but includes the following: [x] Data Review and interpretation [x] Patient assessment and monitoring of vital signs [x] Documentation [x] Medication orders and management Disposition Plan: icu Total Time Spent with Patient (Minutes): 60 History Interval history: This is a 55-year-old male with morbid obesity venous insufficiency, former smoker who presented to the emergency department on 01/22 for SOB x4 days prior to admission and patient was diagnosed with COVID-19 at OSH on 01/16 after the patient was discharged. Patient had worsening symptoms therefore he presented to [facility]. Patient had fever, chills, headache, cough, shortness of breath, body aches, loss of taste and smell. Upon arrival of EMS patient was saturating at 60% on room air and received albuterol, magnesium, Solu-Medrol. Patient remained hypoxic in spite of being on a nonrebreather and was started on a BiPAP in the emergency department. Patient was admitted to the hospitalist service with consults to ID, pulmonology and later nephrology and cardiology. Patient admitted for acute hypoxic respiratory failure, sepsis, multifocal pneumonia, PUI for COVID-19. 02/03: HD MWF, left sided chest tube placed today at bedside by [facility]. Leukocytosis noted and will monitor. Witness consent for chest tube from who wants "everything done to save his life" 02/02: vent changes made by [facility], no acute events reported overnight. A.m. CXR read as improvement to pneumothorax. No acute events reported overnight. pt has hyperkalemia today but scheduled for hd today 02/01: patient was started on trickle feeding yesterday, heparin was on hold for placement of chest tube by surgery. Today patient developed pneumothorax and chest tube was placed again by surgery at bedside. Patient tube feedings will be gradually increased to goal as tolerated. 01/31: Patient has subq air on exam, cxr shows possible apical pneumo and surgery consulted for possible chest tube placement. HD today 01/30: This morning patient is not on sedation and does not follow commands, per RN report patient does not have cough/gag. No acute events reported overnight. EEG ordered, KUB and NGT to LIS for high residuals. NH3 high-lactulose started 01/29: Patient is in acute respiratory failure on continuous BiPAP With low saturations intermittently Patient has severe Covid pneumonia, elevated D-dimers on empiric full dose anticoagulation Not a candidate for CTA chest as patient is unstable Patient is critically ill in severe distress Patient has low saturations even on continuous BiPAP May need intubation and mechanical ventilation Vital signs noted 01/28/2021 Patient intubated Sedated Same condition On pressors Poor prognosis 01/27/2021 Patient intubated Sedated On vent protocol 01/26/2021 Patient is intubated Patient is Covid positive 01/25/2021; patient for intubation and mechanical ventilation As patient is severely hypoxemic even on continuous BiPAP 01/24: Patient is severely hypoxemic requiring continuous BiPAP, with borderline O2 sats Pulmonary critical following, stat ABG If no improvement intubate as needed Patient is elevated D-dimers, in the setting of COVID-19 morbid obesity respiratory failure requiring continuous BiPAP We will treat empirically with full dose anticoagulation, check CTA chest and lower extremity venous Doppler to rule out PE and DVT. Patient is critically ill with poor prognosis Plan of care reviewed with the patient and his nurse 01/23: We will closely monitor the patient and adjust management as needed Follow khan PCR test, consult ID if needed Hospitalist Physical - Constitutional Vitals: Temp Pulse Resp BP Pulse Ox 99.5 F 107 H 26 H 142/37 94 02/03/21 08:00 02/03/21 14:15 02/03/21 14:15 02/03/21 14:15 02/03/21 14:15 General appearance: Present: no acute distress, well-nourished, other (not responsive) - EENT Eyes: Present: PERRL - Neck Neck: Absent: masses or JVD, cervical LAD - Respiratory Respiratory effort: labored Respiratory: bilateral: diminished - Cardiovascular Rhythm: regular Heart Sounds: Present: S1 & S2 - Extremities Extremities: no ischemia, pulses intact, pulses symmetrical, No edema, normal temperature, normal color Peripheral Pulses: within normal limits - Abdominal General gastrointestinal: soft, non-tender, non-distended, normal bowel sounds - Integumentary Integumentary: Present: warm, dry - Neurologic Neurologic: other (PERRL, weak cough/gag) HEART Score - HEART Score Age: 45-65 Risk factors: 1-2 risk factors Troponin: < normal limit - Critical Actions Critical Actions: 0-3 pts:0.9-1.7%risk of adverse cardiac event.Candidate for discharge Results - Labs CBC & Chem 7: 02/03/21 05:25 02/03/21 05:25 Labs: Laboratory Last Values WBC 55.8 K/mm3 (4.5-11.0) H* 02/03/21 05:25 RBC 3.66 M/mm3 (3.65-5.03) 02/03/21 05:25 Hgb 10.3 gm/dl (11.8-15.2) L 02/03/21 05:25 Hct 32.4 % (35.5-45.6) L 02/03/21 05:25 MCV 89 fl (84-94) 02/03/21 05:25 MCH 28 pg (28-32) 02/03/21 05:25 MCHC 32 % (32-34) 02/03/21 05:25 RDW 14.7 % (13.2-15.2) 02/03/21 05:25 Plt Count 161 K/mm3 (140-440) 02/03/21 05:25 Lymph % (Auto) 4.4 % (13.4-35.0) L 01/23/21 05:29 [place] % (Auto) 6.4 % (0.0-7.3) 01/23/21 05:29 Lymph # (Auto) 0.8 K/mm3 (1.2-5.4) L 01/23/21 05:29 [place] # (Auto) 1.2 K/mm3 (0.0-0.8) H 01/23/21 05:29 Add Manual Diff Complete 02/02/21 Unknown Total Counted 100 02/02/21 Unknown Seg Neutrophils % Pipe Roller 02/02/21 Unknown Seg Neuts % (Manual) 94.0 % (40.0-70.0) H 02/02/21 Unknown Band Neutrophils % 2.0 % 01/22/21 11:06 Lymphocytes % (Manual) 3.0 % (13.4-35.0) L 02/02/21 Unknown Monocytes % (Manual) 2.0 % (0.0-7.3) 02/02/21 Unknown Eosinophils % (Manual) 1.0 % (0.0-4.3) 02/02/21 Unknown Nucleated RBC % Not Reportable 02/02/21 Unknown Seg Neutrophils # 16.9 K/mm3 (1.8-7.7) H 01/23/21 05:29 Seg Neutrophils # Man 56.6 K/mm3 (1.8-7.7) H 02/02/21 Unknown Band Neutrophils # 0.0 K/mm3 02/02/21 Unknown Lymphocytes # (Manual) 1.8 K/mm3 (1.2-5.4) 02/02/21 Unknown Abs React Lymphs (Man) 0.0 K/mm3 02/02/21 Unknown Monocytes # (Manual) 1.2 K/mm3 (0.0-0.8) H 02/02/21 Unknown Eosinophils # (Manual) 0.6 K/mm3 (0.0-0.4) H 02/02/21 Unknown Basophils # (Manual) 0.0 K/mm3 (0.0-0.1) 02/02/21 Unknown Metamyelocytes # 0.0 K/mm3 02/02/21 Unknown Myelocytes # 0.0 K/mm3 02/02/21 Unknown Promyelocytes # 0.0 K/mm3 02/02/21 Unknown Blast Cells # 0.0 K/mm3 02/02/21 Unknown WBC Morphology Not Reportable 02/02/21 Unknown Hypersegmented Neuts Not Reportable 02/02/21 Unknown Hyposegmented Neuts Not Reportable 02/02/21 Unknown Hypogranular Neuts Not Reportable 02/02/21 Unknown Smudge Cells Not Reportable 02/02/21 Unknown Toxic Granulation Not Reportable 02/02/21 Unknown Toxic Vacuolation Not Reportable 02/02/21 Unknown Dohle Bodies Not Reportable 02/02/21 Unknown Pelger-Huet Anomaly Not Reportable 02/02/[address] Rods Not Reportable 02/02/21 Unknown Platelet Estimate Not Reportable 02/02/21 Unknown Clumped Platelets Not Reportable 02/02/21 Unknown Plt Clumps, EDTA Not Reportable 02/02/21 Unknown Large Platelets Not Reportable 02/02/21 Unknown Giant Platelets Not Reportable 02/02/21 Unknown Platelet Satelliting Not Reportable 02/02/21 Unknown Plt Morphology Comment Not Reportable 02/02/21 Unknown RBC Morphology Normal 02/02/21 Unknown Dimorphic RBCs Not Reportable 02/02/21 Unknown Polychromasia Not Reportable 02/02/21 Unknown Hypochromasia Not Reportable 02/02/21 Unknown Poikilocytosis Not Reportable 02/02/21 Unknown Anisocytosis Not Reportable 02/02/21 Unknown Microcytosis Not Reportable 02/02/21 Unknown Macrocytosis Not Reportable 02/02/21 Unknown Spherocytes Not Reportable 02/02/21 Unknown Pappenheimer Bodies Not Reportable 02/02/21 Unknown Sickle Cells Not Reportable 02/02/21 Unknown Target Cells Not Reportable 02/02/21 Unknown Tear Drop Cells Not Reportable 02/02/21 Unknown Ovalocytes Not Reportable 02/02/21 Unknown Helmet Cells Not Reportable 02/02/21 Unknown [place] Bodies Not Reportable 02/02/21 Unknown Poth Rings Not Reportable 02/02/21 Unknown Claudia Cells Not Reportable 02/02/21 Unknown Bite Cells Not Reportable 02/02/21 Unknown Crenated Cell Not Reportable 02/02/21 Unknown Elliptocytes Not Reportable 02/02/21 Unknown Acanthocytes (Spur) Not Reportable 02/02/21 Unknown Rouleaux Not Reportable 02/02/21 Unknown Hemoglobin C Crystals Not Reportable 02/02/21 Unknown Schistocytes Not Reportable 02/02/21 Unknown Malaria parasites Not Reportable 02/02/21 Unknown Lloyd Bodies Not Reportable 02/02/21 Unknown Hem Pathologist Commnt No 02/02/21 Unknown PT 15.1 Sec. (12.2-14.9) H 02/02/21 Unknown INR 1.13 (0.87-1.13) 02/02/21 Unknown APTT 29.2 Sec. (24.2-36.6) 01/28/21 10:03 D-Dimer 4328.24 ng/mlDDU (0-234) H 02/03/21 05:25 Heparin Anti-Xa Level 0.38 U.I./ml (0.3-0.7) 02/03/21 11:15 ABG pH 7.208 (7.320-7.450) L 02/02/21 02:58 POC ABG pCO2 58.3 mmHg (32.0-48.0) H 02/02/21 02:58 ABG pCO2 46.6 mm Hg 01/26/21 08:30 POC ABG pO2 91.1 mmHg (83-108) 02/02/21 02:58 ABG pO2 124.5 mm Hg (80.0-90.0) H 01/26/21 08:30 POC ABG HCO3 22.7 02/02/21 02:58 ABG HCO3 21.7 mmol/L (20.0-26.0) 01/26/21 08:30 ABG O2 Saturation 95.8 (0-100) 02/02/21 02:58 ABG O2 Content 19.4 (0.0-44) 01/26/21 08:30 POC ABG Base Excess -5.7 02/02/21 02:58 ABG Base Excess -5.0 mmol/L (-2.0-3.0) L 01/26/21 08:30 ABG Hemoglobin 11.6 (12.0-17.5) L 02/02/21 02:58 ABG Oxyhemoglobin 94.6 (94-98) 02/02/21 02:58 ABG Carboxyhemoglobin 1.2 % (0.0-5.0) 01/26/21 08:30 ABG Methemoglobin 0.1 (0.0-1.5) 02/02/21 02:58 ABG Sodium 131.4 mmol/L (136.0-145.0) L 02/02/21 02:58 ABG Potassium 5.6 mmol/L (3.40-4.50) H 02/02/21 02:58 ABG Chloride 97.0 mmol/L (98-107) L 02/02/21 02:58 ABG Glucose 155 mg/dL (65-95) H 02/02/21 02:58 Oxyhemoglobin 96.2 % (95.0-99.0) 01/26/21 08:30 Carboxyhemoglobin 1.2 (0.5-1.5) 02/02/21 02:58 FiO2 100 % 01/26/21 08:30 FiO2 % 100.0 02/02/21 02:58 Sodium 137 mmol/L (137-145) 02/03/21 05:25 Sodium 137 mmol/L (137-145) 02/03/21 05:25 Potassium 5.4 mmol/L (3.6-5.0) H 02/03/21 05:25 Potassium 5.6 mmol/L (3.6-5.0) H 02/03/21 05:25 Chloride 97.3 mmol/L (98-107) L 02/03/21 05:25 Chloride 98.2 mmol/L (98-107) 02/03/21 05:25 Carbon Dioxide 21 mmol/L (22-30) L 02/03/21 05:25 Carbon Dioxide 22 mmol/L (22-30) 02/03/21 05:25 Anion Gap 22 mmol/L 02/03/21 05:25 Anion Gap 24 mmol/L 02/03/21 05:25 BUN 86 mg/dL (9-20) H 02/03/21 05:25 BUN 86 mg/dL (9-20) H 02/03/21 05:25 Creatinine 5.6 mg/dL (0.8-1.3) H 02/03/21 05:25 Creatinine 5.8 mg/dL (0.8-1.3) H 02/03/21 05:25 Estimated GFR 10 ml/min 02/03/21 05:25 Estimated GFR 11 ml/min 02/03/21 05:25 BUN/Creatinine Ratio 15 % 02/03/21 05:25 BUN/Creatinine Ratio 15 % 02/03/21 05:25 Glucose 152 mg/dL (75-100) H 02/03/21 05:25 Glucose 154 mg/dL (75-100) H 02/03/21 05:25 POC Glucose 146 mg/dL (70-105) H 02/03/21 11:35 Hemoglobin A1c 6.2 % (4-6) H 01/22/21 11:06 Lactic Acid 4.20 mmol/L (0.7-2.0) H* 01/22/21 11:06 Calcium 7.8 mg/dL (8.4-10.2) L 02/03/21 05:25 Calcium 7.9 mg/dL (8.4-10.2) L 02/03/21 05:25 Phosphorus 8.50 mg/dL (2.5-4.5) H 02/03/21 05:25 Magnesium 2.50 mg/dL (1.7-2.3) H 02/03/21 05:25 Ferritin 2914.0 ng/mL (30.0-300.0) H 02/03/21 05:25 Total Bilirubin 2.30 mg/dL (0.1-1.2) H 02/03/21 05:25 Direct Bilirubin 1.6 mg/dL (0-0.2) H 01/31/21 03:30 Indirect Bilirubin 0.0 mg/dL 01/31/21 03:30 AST 103 units/L (5-40) H 02/03/21 05:25 ALT 200 units/L (7-56) H 02/03/21 05:25 Alkaline Phosphatase 135 units/L (35-129) H 02/03/21 05:25 Ammonia 83.0 umol/L (25-60) H 02/02/21 Unknown Lactate Dehydrogenase 1310 units/L (91-180) H 02/03/21 05:25 Total Creatine Kinase 258 units/L (55-170) H 01/27/21 05:00 C-Reactive Protein 2.50 mg/dL (0.00-1.30) H 02/03/21 05:25 Serum Total Protein 7.2 g/dL (6.1-8.1) 01/27/21 11:55 Total Protein 5.2 g/dL (6.3-8.2) L 02/03/21 05:25 Albumin 2.2 g/dL (3.9-5) L 02/03/21 05:25 Albumin/Globulin Ratio 0.7 % 02/03/21 05:25 Djnil-4-Sfzorjydg 0.7 g/dL (0.2-0.3) H 01/27/21 11:55 Mbaly-9-Nfydvhhgd 1.2 g/dL (0.5-0.9) H 01/27/21 11:55 Beta Globulins 0.7 g/dL (0.2-0.5) H 01/27/21 11:55 Gamma Globulins 1.6 g/dL (0.8-1.7) 01/27/21 11:55 Abnorm Protein Band 1 0.5 g/dL H 01/27/21 11:55 PEP Interpretation see below H 01/27/21 11:55 Triglycerides 369 mg/dL (2-149) H 01/28/21 04:00 Lipase 46 units/L (13-60) 02/01/21 04:00 Procalcitonin 2.11 ng/mL (<0.15) 01/25/21 06:22 TSH 0.013 mlU/mL (0.270-4.200) L 01/28/21 10:03 Thyroxine (T4) 3.3 ug/dL (4.0-12.0) L 01/30/21 15:35 Free T3 Index 1.1 pg/mL (2.3-4.2) L 01/30/21 15:35 Arterial Blood Glucose 155 mg/dL (65-95) H 02/02/21 02:58 Arterial Blood Ionized Calcium 3.9 mg/dL (4.6-5.3) L 02/02/21 02:58 Immunofix Electrophor see below H 01/27/21 11:55 ANURAG Screen Negative (Negative) 01/27/21 11:55 Proteinase 3 (PR3) Ab <1.0 AI (<1.0) 01/27/21 11:55 Myeloperoxidase Ab <1.0 AI (<1.0) 01/27/21 11:55 Complement C3 105 mg/dL (82-185) 01/27/21 11:55 Complement C4 17 mg/dL (15-53) 01/27/21 11:55 Coronavirus (PCR) Positive (Negative) A 01/23/21 09:00 Hepatitis A IgM Ab Non-reactive (NonReactive) 01/27/21 11:41 Hep Bs Antigen Nonreactive (Negative) 01/27/21 11:41 Hep B Core IgM Ab Non-reactive (NonReactive) 01/27/21 11:41 Hepatitis C Antibody Non-reactive (NonReactive) 01/27/21 11:41 Miscellaneous Test Flexitest 1 H 01/29/21 Unknown Microbiology: Microbiology 02/02/21 14:25 Tracheal Aspirate Sputum Culture - Preliminary 02/03/21 08:44 Peripheral/Venous Blood Culture - Preliminary Culture in Progress 02/03/21 08:44 Peripheral/Venous Blood Culture - Preliminary Culture in Progress Arana/IV: Voiding Method Incontinent Active Medications - Current Medications Current Medications: Generic Name Dose Route Start Last Admin Trade Name Freq PRN Reason Stop Dose Admin Albumin Human 25 gm 01/27/21 09:35 Albumin Human 25% (25 Gm/100 Ml) Inj IV MELECIO PRN Hypotension Amiodarone HCl 200 mg 01/30/21 10:00 02/03/21 09:40 Amiodarone 200 Mg Tab PO 200 mg DAILY JACK Administration Lipase/Protease/Amylase 1 each 01/27/21 11:37 Lipase 10,500/Protease 25,000/Amylase 43,750 (Units) Dr Cap FEEDTUBE PRN PRN For Clogged Feeding Tube Ascorbic Acid 500 mg 02/02/21 11:00 02/03/21 09:40 Ascorbic Acid 500 Mg Tab PO 500 mg BID JACK Administration Cholecalciferol 5,000 unit 02/02/21 11:00 02/03/21 09:40 Cholecalciferol (Vit D3) 5,000 Unit Tab PO 5,000 unit DAILY JACK Administration Dextrose 50 ml 01/29/21 12:24 Dextrose 50% In Water (25gm) 50 Ml Syringe IV Q30MIN PRN Hypoglycemia Protocol Famotidine 20 mg 01/27/21 10:00 02/03/21 09:40 Famotidine 20 Mg/2 Ml Inj IV 20 mg DAILY JACK Administration Fentanyl 50 mcg 01/25/21 11:32 01/28/21 06:10 Fentanyl 100 Mcg/2 Ml Inj IV 50 mcg Q10MIN PRN Administration ANALGESIA Heparin Sodium (Porcine) 5,000 unit 01/28/21 09:27 Heparin 10,000 Units/10 Ml Vial IV Q6H PRN Anti-Xa Assay < 0.1 units/ml Hydrophilic Ointment 1 applic 01/25/21 13:27 Lip Therapy Vaseline TP Q2HR PRN Dry Lips Norepinephrine 4 mg in 250 mls @ 7.5 mls/hr 01/25/21 17:04 01/31/21 09:05 Levophed Drip 4 Mg/Ns 250 Ml IV 2 mcg/min TITR JACK 7.5 mls/hr Titration Protocol 2 MCG/MIN Sodium Chloride 100 mls @ 999 mls/hr 01/27/21 09:35 Nacl 0.9% IV MELECIO PRN Hypotension Vasopressin 20 unit/ Sodium 101 mls @ 9.09 mls/hr 01/28/21 07:00 01/30/21 08:55 Chloride IV Infused TITR JACK Titration Protocol 0.03 UNITS/MIN Heparin Sodium/Sodium Chloride 25,000 unit in 500 mls @ 30 mls/hr 01/28/21 11:00 02/03/21 03:33 Heparin/ 0.45% Nacl-25,000 Unit/500 Ml IV 1,500 units/hr TITR JACK 30 mls/hr Administration Protocol 1,500 UNITS/HR Cefepime HCl 1 gm in 100 mls @ 200 mls/hr 02/02/21 18:00 02/02/21 17:08 Cefepime/Ns 1 Gm/100 Ml IV 02/06/21 18:29 200 mls/hr QPM JACK Administration Protocol Insulin Human Regular 0 units 01/29/21 13:00 02/03/21 05:20 Insulin Regular, Human 100 Units/1 Ml SUB-Q 1 units Q6HR JACK Administration Protocol Lactulose 20 gm 02/03/21 14:00 Lactulose 20 Gm/30 Ml Oral Liqd PO Q6HR [facility] Metoclopramide HCl 10 mg 02/02/21 14:00 02/03/21 05:19 Metoclopramide 10 Mg/2 Ml Inj IV 10 mg Q8H JACK Administration Multi-Ingred Cream/Lotion/Oil/Oint 1 applic 01/25/21 13:27 Mineral Oil/Petrolatum, White Ophth Oint 3.5 Gm OU Q4HR PRN Dry Eye(s) Ondansetron HCl 4 mg 01/22/21 23:03 Ondansetron 4 Mg/2 Ml Inj IV Q8H PRN Nausea And Vomiting Senna/Docusate Sodium 1 tab 01/25/21 22:00 02/03/21 09:40 Sennosides/Docusate Sodium 8.6/50 Mg Tab FEEDTUBE 1 tab BID JACK Administration Simple Syrup 15 ml 01/27/21 11:37 Simple Syrup 15 Ml FEEDTUBE PRN PRN Hypoglycemia Simple Syrup 30 ml 01/27/21 11:37 Simple Syrup 15 Ml FEEDTUBE PRN PRN Hypoglycemia Sodium Bicarbonate 325 mg 01/27/21 11:37 Sodium Bicarbonate 325 Mg Tab FEEDTUBE PRN PRN For Clogged Feeding Tube Sodium Chloride 10 ml 01/22/21 23:45 02/03/21 09:41 Sodium Chloride 0.9% 10 Ml Flush Syringe IV 10 ml BID JACK Administration Sodium Chloride 10 ml 01/22/21 23:03 Sodium Chloride 0.9% 10 Ml Flush Syringe IV PRN PRN LINE FLUSH Voriconazole 300 mg 01/29/21 11:00 02/03/21 09:40 Voriconazole 200 Mg Tab PO 300 mg Q12HR JACK Administration Zinc Sulfate 220 mg 02/02/21 11:00 02/03/21 09:40 Zinc Sulfate 220 Mg Cap PO 220 mg BID JACK Administration Nutrition/Malnutrition Assess - Dietary Evaluation Nutrition/Malnutrition Findings: Nutrition Notes Start: 01/24/21 13:25 Freq: Status: Active Protocol: Document 02/02/21 10:21 (Rec: 02/02/21 10:28 [id number]) Nutrition Notes Initial or Follow up Reassessment Current Diagnosis Sepsis,Respiratory Failure, Malnutrition Other Pertinent Diagnosis covid-19, pneumonia Current Diet Nepro 1.8 at 30 ml/hr Labs/Tests K 5.9 BUN 118 Cr 7.2 Pertinent Medications Levophed Vasopressin Height 5 ft 6 in Weight 128 kg [place] Body Weight (kg) 64.54 BMI 45.5 Weight Status Morbidly Obese Subjective/Other Information TF running at 20 ml/hr and is being increased per tolerance. Pt procedure this AM and TF was paused. Percent of energy/protein needs met: 48%/24% Burn Absent Trauma Absent GI Symptoms None Current % PO Negligible Minimum of two criteria No physical signs of malnutrition #1 Nutrition Diagnosis Inadequate oral intake Diagnosis Progress(for reassessment Continues documentation) Is patient on ventilator? Yes Is Patient Ambulatory and/or Out of Bed No REE-([facility]-confined to bed) 2484.852 Kcal/Kg value to use for calculation 14 Approximate Energy Requirements Using 1792 kcal/Kg Calculation Used for Recommendations Kcal/kg Additional Notes Protein needs: up to 161 (up to 2.5 g/kgIBW) fluid needs: 1ml/kcal or per MD order Nutrition Intervention Nutrition Support: Nepro at 30 ml/hr with a free water flush of 175 ml q4h Kcal 1,296 Protein (gm) 58 Fluid (mL) 523 Goal #1 Meet needs as best as possible via TF Anticipated Discharge Needs: Unable to determine at this time Follow-Up By: 02/05/21 Additional Comments F/u: TF rate and tolerance <STAR CHRISTY - Last Filed: 02/04/21 13:13> History Interval history: I saw and evaluated the patient. Discussed with the nurse practitioner and agree with their findings and plan as documented in this note. Hospitalist Physical - Constitutional Vitals: Temp Pulse Resp BP Pulse Ox 99 F 98 H 32 H 96/47 92 02/04/21 08:00 02/04/21 08:00 02/04/21 00:01 02/04/21 08:00 02/04/21 08:00 Results - Labs CBC & Chem 7: 02/04/21 06:40 02/04/21 05:00 Labs: Laboratory Last Values WBC 59.8 K/mm3 (4.5-11.0) H* 02/04/21 06:40 RBC 2.95 M/mm3 (3.65-5.03) L 02/04/21 06:40 Hgb 8.5 gm/dl (11.8-15.2) L 02/04/21 06:40 Hct 26.2 % (35.5-45.6) L D 02/04/21 06:40 MCV 89 fl (84-94) 02/04/21 06:40 MCH 29 pg (28-32) 02/04/21 06:40 MCHC 32 % (32-34) 02/04/21 06:40 RDW 14.8 % (13.2-15.2) 02/04/21 06:40 Plt Count 152 K/mm3 (140-440) 02/04/21 06:40 Lymph % (Auto) 4.4 % (13.4-35.0) L 01/23/21 05:29 [place] % (Auto) 6.4 % (0.0-7.3) 01/23/21 05:29 Lymph # (Auto) 0.8 K/mm3 (1.2-5.4) L 01/23/21 05:29 [place] # (Auto) 1.2 K/mm3 (0.0-0.8) H 01/23/21 05:29 Add Manual Diff Complete 02/02/21 Unknown Total Counted 100 02/02/21 Unknown Seg Neutrophils % Pipe Roller 02/02/21 Unknown Seg Neuts % (Manual) 94.0 % (40.0-70.0) H 02/02/21 Unknown Band Neutrophils % 2.0 % 01/22/21 11:06 Lymphocytes % (Manual) 3.0 % (13.4-35.0) L 02/02/21 Unknown Monocytes % (Manual) 2.0 % (0.0-7.3) 02/02/21 Unknown Eosinophils % (Manual) 1.0 % (0.0-4.3) 02/02/21 Unknown Nucleated RBC % Not Reportable 02/02/21 Unknown Seg Neutrophils # 16.9 K/mm3 (1.8-7.7) H 01/23/21 05:29 Seg Neutrophils # Man 56.6 K/mm3 (1.8-7.7) H 02/02/21 Unknown Band Neutrophils # 0.0 K/mm3 02/02/21 Unknown Lymphocytes # (Manual) 1.8 K/mm3 (1.2-5.4) 02/02/21 Unknown Abs React Lymphs (Man) 0.0 K/mm3 02/02/21 Unknown Monocytes # (Manual) 1.2 K/mm3 (0.0-0.8) H 02/02/21 Unknown Eosinophils # (Manual) 0.6 K/mm3 (0.0-0.4) H 02/02/21 Unknown Basophils # (Manual) 0.0 K/mm3 (0.0-0.1) 02/02/21 Unknown Metamyelocytes # 0.0 K/mm3 02/02/21 Unknown Myelocytes # 0.0 K/mm3 02/02/21 Unknown Promyelocytes # 0.0 K/mm3 02/02/21 Unknown Blast Cells # 0.0 K/mm3 02/02/21 Unknown WBC Morphology Not Reportable 02/02/21 Unknown Hypersegmented Neuts Not Reportable 02/02/21 Unknown Hyposegmented Neuts Not Reportable 02/02/21 Unknown Hypogranular Neuts Not Reportable 02/02/21 Unknown Smudge Cells Not Reportable 02/02/21 Unknown Toxic Granulation Not Reportable 02/02/21 Unknown Toxic Vacuolation Not Reportable 02/02/21 Unknown Dohle Bodies Not Reportable 02/02/21 Unknown Pelger-Huet Anomaly Not Reportable 02/02/[address] Rods Not Reportable 02/02/21 Unknown Platelet Estimate Not Reportable 02/02/21 Unknown Clumped Platelets Not Reportable 02/02/21 Unknown Plt Clumps, EDTA Not Reportable 02/02/21 Unknown Large Platelets Not Reportable 02/02/21 Unknown Giant Platelets Not Reportable 02/02/21 Unknown Platelet Satelliting Not Reportable 02/02/21 Unknown Plt Morphology Comment Not Reportable 02/02/21 Unknown RBC Morphology Normal 02/02/21 Unknown Dimorphic RBCs Not Reportable 02/02/21 Unknown Polychromasia Not Reportable 02/02/21 Unknown Hypochromasia Not Reportable 02/02/21 Unknown Poikilocytosis Not Reportable 02/02/21 Unknown Anisocytosis Not Reportable 02/02/21 Unknown Microcytosis Not Reportable 02/02/21 Unknown Macrocytosis Not Reportable 02/02/21 Unknown Spherocytes Not Reportable 02/02/21 Unknown Pappenheimer Bodies Not Reportable 02/02/21 Unknown Sickle Cells Not Reportable 02/02/21 Unknown Target Cells Not Reportable 02/02/21 Unknown Tear Drop Cells Not Reportable 02/02/21 Unknown Ovalocytes Not Reportable 02/02/21 Unknown Helmet Cells Not Reportable 02/02/21 Unknown [place] Bodies Not Reportable 02/02/21 Unknown Poth Rings Not Reportable 02/02/21 Unknown Claudia Cells Not Reportable 02/02/21 Unknown Bite Cells Not Reportable 02/02/21 Unknown Crenated Cell Not Reportable 02/02/21 Unknown Elliptocytes Not Reportable 02/02/21 Unknown Acanthocytes (Spur) Not Reportable 02/02/21 Unknown Rouleaux Not Reportable 02/02/21 Unknown Hemoglobin C Crystals Not Reportable 02/02/21 Unknown Schistocytes Not Reportable 02/02/21 Unknown Malaria parasites Not Reportable 02/02/21 Unknown Lloyd Bodies Not Reportable 02/02/21 Unknown Hem Pathologist Commnt No 02/02/21 Unknown PT 15.1 Sec. (12.2-14.9) H 02/02/21 Unknown INR 1.13 (0.87-1.13) 02/02/21 Unknown APTT 29.2 Sec. (24.2-36.6) 01/28/21 10:03 D-Dimer 4328.24 ng/mlDDU (0-234) H 02/03/21 05:25 Heparin Anti-Xa Level 0.40 U.I./ml (0.3-0.7) 02/04/21 12:20 ABG pH 7.329 (7.320-7.450) 02/04/21 04:00 POC ABG pCO2 47.3 mmHg (32.0-48.0) 02/04/21 04:00 ABG pCO2 46.6 mm Hg 01/26/21 08:30 POC ABG pO2 69.2 mmHg (83-108) L 02/04/21 04:00 ABG pO2 124.5 mm Hg (80.0-90.0) H 01/26/21 08:30 POC ABG HCO3 24.3 02/04/21 04:00 ABG HCO3 21.7 mmol/L (20.0-26.0) 01/26/21 08:30 ABG O2 Saturation 92.7 (0-100) 02/04/21 04:00 ABG O2 Content 19.4 (0.0-44) 01/26/21 08:30 POC ABG Base Excess -1.7 02/04/21 04:00 ABG Base Excess -5.0 mmol/L (-2.0-3.0) L 01/26/21 08:30 ABG Hemoglobin 9.4 (12.0-17.5) L 02/04/21 04:00 ABG Oxyhemoglobin 91.5 (94-98) L 02/04/21 04:00 ABG Carboxyhemoglobin 1.2 % (0.0-5.0) 01/26/21 08:30 ABG Methemoglobin 0.3 (0.0-1.5) 02/04/21 04:00 ABG Sodium 127.7 mmol/L (136.0-145.0) L 02/04/21 04:00 ABG Potassium 4.9 mmol/L (3.40-4.50) H 02/04/21 04:00 ABG Chloride 98.0 mmol/L (98-107) 02/04/21 04:00 ABG Glucose 172 mg/dL (65-95) H 02/04/21 04:00 Oxyhemoglobin 96.2 % (95.0-99.0) 01/26/21 08:30 Carboxyhemoglobin 1.0 (0.5-1.5) 02/04/21 04:00 FiO2 100 % 01/26/21 08:30 FiO2 % 100.0 02/04/21 04:00 Sodium 133 mmol/L (137-145) L 02/04/21 05:00 Potassium 5.0 mmol/L (3.6-5.0) 02/04/21 05:00 Chloride 93.8 mmol/L (98-107) L 02/04/21 05:00 Carbon Dioxide 25 mmol/L (22-30) 02/04/21 05:00 Anion Gap 19 mmol/L 02/04/21 05:00 BUN 77 mg/dL (9-20) H 02/04/21 05:00 Creatinine 5.3 mg/dL (0.8-1.3) H 02/04/21 05:00 Estimated GFR 11 ml/min 02/04/21 05:00 BUN/Creatinine Ratio 15 % 02/04/21 05:00 Glucose 168 mg/dL (75-100) H 02/04/21 05:00 POC Glucose 135 mg/dL (70-105) H 02/04/21 12:15 Hemoglobin A1c 6.2 % (4-6) H 01/22/21 11:06 Lactic Acid 4.20 mmol/L (0.7-2.0) H* 01/22/21 11:06 Calcium 7.3 mg/dL (8.4-10.2) L 02/04/21 05:00 Phosphorus 8.50 mg/dL (2.5-4.5) H 02/03/21 05:25 Magnesium 2.50 mg/dL (1.7-2.3) H 02/03/21 05:25 Ferritin 2914.0 ng/mL (30.0-300.0) H 02/03/21 05:25 Total Bilirubin 1.40 mg/dL (0.1-1.2) H 02/04/21 05:00 Direct Bilirubin 1.6 mg/dL (0-0.2) H 01/31/21 03:30 Indirect Bilirubin 0.0 mg/dL 01/31/21 03:30 AST 110 units/L (5-40) H 02/04/21 05:00 ALT 171 units/L (7-56) H 02/04/21 05:00 Alkaline Phosphatase 196 units/L (35-129) H 02/04/21 05:00 Ammonia 83.0 umol/L (25-60) H 02/02/21 Unknown Lactate Dehydrogenase 1310 units/L (91-180) H 02/03/21 05:25 Total Creatine Kinase 258 units/L (55-170) H 01/27/21 05:00 C-Reactive Protein 2.50 mg/dL (0.00-1.30) H 02/03/21 05:25 Serum Total Protein 7.2 g/dL (6.1-8.1) 01/27/21 11:55 Total Protein 4.7 g/dL (6.3-8.2) L 02/04/21 05:00 Albumin 2.2 g/dL (3.9-5) L 02/04/21 05:00 Albumin/Globulin Ratio 0.9 % 02/04/21 05:00 Xltmh-8-Ubnsglwew 0.7 g/dL (0.2-0.3) H 01/27/21 11:55 Mopwn-0-Yifhaztzx 1.2 g/dL (0.5-0.9) H 01/27/21 11:55 Beta Globulins 0.7 g/dL (0.2-0.5) H 01/27/21 11:55 Gamma Globulins 1.6 g/dL (0.8-1.7) 01/27/21 11:55 Abnorm Protein Band 1 0.5 g/dL H 01/27/21 11:55 PEP Interpretation see below H 01/27/21 11:55 Triglycerides 369 mg/dL (2-149) H 01/28/21 04:00 Lipase 46 units/L (13-60) 02/01/21 04:00 Procalcitonin 2.11 ng/mL (<0.15) 01/25/21 06:22 TSH 0.013 mlU/mL (0.270-4.200) L 01/28/21 10:03 Thyroxine (T4) 3.3 ug/dL (4.0-12.0) L 01/30/21 15:35 Free T3 Index 1.1 pg/mL (2.3-4.2) L 01/30/21 15:35 Arterial Blood Glucose 172 mg/dL (65-95) H 02/04/21 04:00 Arterial Blood Ionized Calcium 4.0 mg/dL (4.6-5.3) L 02/04/21 04:00 Immunofix Electrophor see below H 01/27/21 11:55 ANURAG Screen Negative (Negative) 01/27/21 11:55 Proteinase 3 (PR3) Ab <1.0 AI (<1.0) 01/27/21 11:55 Myeloperoxidase Ab <1.0 AI (<1.0) 01/27/21 11:55 Complement C3 105 mg/dL (82-185) 01/27/21 11:55 Complement C4 17 mg/dL (15-53) 01/27/21 11:55 Coronavirus (PCR) Positive (Negative) A 01/23/21 09:00 Hepatitis A IgM Ab Non-reactive (NonReactive) 01/27/21 11:41 Hep Bs Antigen Nonreactive (Negative) 01/27/21 11:41 Hep B Core IgM Ab Non-reactive (NonReactive) 01/27/21 11:41 Hepatitis C Antibody Non-reactive (NonReactive) 01/27/21 11:41 Miscellaneous Test Flexitest 1 H 01/29/21 Unknown Microbiology: Microbiology 02/03/21 08:44 Peripheral/Venous Blood Culture - Preliminary NO GROWTH AFTER 24 HOURS 02/03/21 08:44 Peripheral/Venous Blood Culture - Preliminary NO GROWTH AFTER 24 HOURS 02/02/21 14:25 Tracheal Aspirate Sputum Culture - Preliminary 02/03/21 10:12 Urine,Catheterized - Indwelling Catheter Urine Culture - Preliminary NO GROWTH AFTER 24 HOURS Arana/IV: Voiding Method Incontinent Active Medications - Current Medications Current Medications: Generic Name Dose Route Start Last Admin Trade Name Freq PRN Reason Stop Dose Admin Albumin Human 25 gm 01/27/21 09:35 Albumin Human 25% (25 Gm/100 Ml) Inj IV MELECIO PRN Hypotension Amiodarone HCl 200 mg 01/30/21 10:00 02/04/21 12:20 Amiodarone 200 Mg Tab PO 200 mg DAILY JACK Administration Lipase/Protease/Amylase 1 each 01/27/21 11:37 Lipase 10,500/Protease 25,000/Amylase 43,750 (Units) Dr Cap FEEDTUBE PRN PRN For Clogged Feeding Tube Ascorbic Acid 500 mg 02/02/21 11:00 02/04/21 12:21 Ascorbic Acid 500 Mg Tab PO 500 mg BID JACK Administration Cholecalciferol 5,000 unit 02/02/21 11:00 02/04/21 12:19 Cholecalciferol (Vit D3) 5,000 Unit Tab PO 5,000 unit DAILY JACK Administration Dextrose 50 ml 01/29/21 12:24 Dextrose 50% In Water (25gm) 50 Ml Syringe IV Q30MIN PRN Hypoglycemia Protocol Famotidine 20 mg 01/27/21 10:00 02/04/21 12:20 Famotidine 20 Mg/2 Ml Inj IV 20 mg DAILY JACK Administration Fentanyl 50 mcg 01/25/21 11:32 01/28/21 06:10 Fentanyl 100 Mcg/2 Ml Inj IV 50 mcg Q10MIN PRN Administration ANALGESIA Fentanyl 50 mcg 02/03/21 15:20 Fentanyl 100 Mcg/2 Ml Inj IV Q10MIN PRN ANALGESIA Heparin Sodium (Porcine) 5,000 unit 01/28/21 09:27 Heparin 10,000 Units/10 Ml Vial IV Q6H PRN Anti-Xa Assay < 0.1 units/ml Hydrophilic Ointment 1 applic 01/25/21 13:27 Lip Therapy Vaseline TP Q2HR PRN Dry Lips Norepinephrine 4 mg in 250 mls @ 7.5 mls/hr 01/25/21 17:04 02/03/21 19:40 Levophed Drip 4 Mg/Ns 250 Ml IV 6 mcg/min TITR JACK 22.5 mls/hr Titration Protocol 2 MCG/MIN Sodium Chloride 100 mls @ 999 mls/hr 01/27/21 09:35 Nacl 0.9% IV MELECIO PRN Hypotension Vasopressin 20 unit/ Sodium 101 mls @ 9.09 mls/hr 01/28/21 07:00 01/30/21 08:55 Chloride IV Infused TITR JACK Titration Protocol 0.03 UNITS/MIN Heparin Sodium/Sodium Chloride 25,000 unit in 500 mls @ 30 mls/hr 01/28/21 11:00 02/03/21 22:49 Heparin/ 0.45% Nacl-25,000 Unit/500 Ml IV 1,500 units/hr TITR JACK 30 mls/hr Administration Protocol 1,500 UNITS/HR Cefepime HCl 1 gm in 100 mls @ 200 mls/hr 02/02/21 18:00 02/03/21 17:06 Cefepime/Ns 1 Gm/100 Ml IV 02/06/21 18:29 200 mls/hr QPM JACK Administration Protocol Fentanyl Citrate 2,000 mcg in 100 mls @ 6.4 mls/hr 02/03/21 16:00 02/04/21 06 :36 Fentanyl Drip Premix IV 1 mcg/kg/hr TITR JACK 6.4 mls/hr Administration Protocol 1 MCG/KG/HR Insulin Human Regular 0 units 01/29/21 13:00 02/04/21 12:21 Insulin Regular, Human 100 Units/1 Ml SUB-Q Not Given Q6HR [facility] Protocol Lactulose 20 gm 02/03/21 14:00 02/04/21 12:19 Lactulose 20 Gm/30 Ml Oral Liqd PO 20 gm Q6HR [facility] Administration Metoclopramide HCl 10 mg 02/02/21 14:00 02/04/21 06:37 Metoclopramide 10 Mg/2 Ml Inj IV 10 mg Q8H JACK Administration Multi-Ingred Cream/Lotion/Oil/Oint 1 applic 01/25/21 13:27 Mineral Oil/Petrolatum, White Ophth Oint 3.5 Gm OU Q4HR PRN Dry Eye(s) Ondansetron HCl 4 mg 01/22/21 23:03 Ondansetron 4 Mg/2 Ml Inj IV Q8H PRN Nausea And Vomiting Senna/Docusate Sodium 1 tab 01/25/21 22:00 02/04/21 12:19 Sennosides/Docusate Sodium 8.6/50 Mg Tab FEEDTUBE 1 tab BID JACK Administration Simple Syrup 15 ml 01/27/21 11:37 Simple Syrup 15 Ml FEEDTUBE PRN PRN Hypoglycemia Simple Syrup 30 ml 01/27/21 11:37 Simple Syrup 15 Ml FEEDTUBE PRN PRN Hypoglycemia Sodium Bicarbonate 325 mg 01/27/21 11:37 Sodium Bicarbonate 325 Mg Tab FEEDTUBE PRN PRN For Clogged Feeding Tube Sodium Chloride 10 ml 01/22/21 23:45 02/04/21 12:19 Sodium Chloride 0.9% 10 Ml Flush Syringe IV 10 ml BID JACK Administration Sodium Chloride 10 ml 01/22/21 23:03 Sodium Chloride 0.9% 10 Ml Flush Syringe IV PRN PRN LINE FLUSH Voriconazole 300 mg 01/29/21 11:00 02/04/21 12:20 Voriconazole 200 Mg Tab PO 300 mg Q12HR JACK Administration Zinc Sulfate 220 mg 02/02/21 11:00 02/04/21 12:20 Zinc Sulfate 220 Mg Cap PO 220 mg BID JACK Administration Nutrition/Malnutrition Assess - Dietary Evaluation Nutrition/Malnutrition Findings: Nutrition Notes Start: 01/24/21 13:25 Freq: Status: Active Protocol: Document 02/02/21 10:21 (Rec: 02/02/21 10:28 [id number]) Nutrition Notes Initial or Follow up Reassessment Current Diagnosis Sepsis,Respiratory Failure, Malnutrition Other Pertinent Diagnosis covid-19, pneumonia Current Diet Nepro 1.8 at 30 ml/hr Labs/Tests K 5.9 BUN 118 Cr 7.2 Pertinent Medications Levophed Vasopressin Height 5 ft 6 in Weight 128 kg [place] Body Weight (kg) 64.54 BMI 45.5 Weight Status Morbidly Obese Subjective/Other Information TF running at 20 ml/hr and is being increased per tolerance. Pt procedure this AM and TF was paused. Percent of energy/protein needs met: 48%/24% Burn Absent Trauma Absent GI Symptoms None Current % PO Negligible Minimum of two criteria No physical signs of malnutrition #1 Nutrition Diagnosis Inadequate oral intake Diagnosis Progress(for reassessment Continues documentation) Is patient on ventilator? Yes Is Patient Ambulatory and/or Out of Bed No REE-([facility]-confined to bed) 2484.852 Kcal/Kg value to use for calculation 14 Approximate Energy Requirements Using 1792 kcal/Kg Calculation Used for Recommendations Kcal/kg Additional Notes Protein needs: up to 161 (up to 2.5 g/kgIBW) fluid needs: 1ml/kcal or per MD order Nutrition Intervention Nutrition Support: Nepro at 30 ml/hr with a free water flush of 175 ml q4h Kcal 1,296 Protein (gm) 58 Fluid (mL) 523 Goal #1 Meet needs as best as possible via TF Anticipated Discharge Needs: Unable to determine at this time Follow-Up By: 02/05/21 Additional Comments F/u: TF rate and tolerance
[2021-02-03] MEDS ORDERED: fentaNYL 100 MCG/2 ML INJ IV PRN (15:20)
[2021-02-03] MEDS: LACTULOSE 20 GM/30 ML ORAL LIQD PO SCH ×2 (15:27→17:06)
[2021-02-03] MEDS: fentaNYL DRIP Premix 2,000 MCG/100 ML BAG IV SCH (15:45)
[2021-02-03] MEDS: CEFEPIME/NS 1 GM/100 ML 1 GM/100 ML BAG IV SCH (17:06)
--- NOTE | 2021-02-03 17:07 | Operative Report ---
DATE OF SURGERY: 02/03/2021 PROCEDURE: Left percutaneous chest tube placement, anterior position. INDICATION: Persistent left pneumothorax despite large bore chest tube in place already. CONSENT: Informed and witnessed obtained from the patient's , Hilda López, obtained after calling her phone number [phone]. COMPLICATIONS: No immediate procedural complications. DESCRIPTION OF PROCEDURE: After informed and witnessed consent and premedication mostly generous local anesthetic agent as the patient is on mechanical ventilator, but with altered mental status and sedation is on hold at this point, the area of the left upper anterior chest wall was sterilely prepped and draped. Sterile gloves, sterile barrier protection was used. The area around the left second intercostal space was located at the junction of the mid clavicular line with a sternal angle. Generous local anesthetic agent was infiltrated and then the pleural space cavity was assessed with the provided needle. I could see air bubbles coming through the fluid in the syringe. Wire was threaded through this guidewire into the pleural cavity and then a little incision was made and then the dilator was used to dilate the cavity before the introduction of the pigtail catheter. The catheter was sutured in place, connected to vacutainer and connected to continuous wall suction. Postprocedure chest x-ray has been done and shows the chest tube in the pleural cavity, but still with persistent left pneumothorax. The patient tolerated the procedure well. Bleeding was minimal. TID: [id number] RECEIPT: [id number] VIJAY/VALENTINE
[2021-02-03] MEDS: NORepinephrine/NS 4 MG-250 ML 4 MG/250 ML BAG IV SCH (19:04)
[2021-02-04] MEDS: LACTULOSE 20 GM/30 ML ORAL LIQD PO SCH ×4 (01:02→18:55)
[2021-02-04] MEDS: INSULIN REGULAR, HUMAN 100 UNITS/1 ML SUB-Q SCH ×4 (01:12→19:26)
--- NOTE | 2021-02-04 04:04 | XRay Report ---
CHEST 1 VIEW 02/04/2021 2:45 AM INDICATION / CLINICAL INFORMATION: s/p chest tube. COMPARISON: Previous day. FINDINGS: SUPPORT DEVICES: Unchanged. HEART / MEDIASTINUM: No significant abnormality. LUNGS / PLEURA: Persistent bilateral opacity left greater than right. Left-sided opacity is mildly wo rsened. Mild increasing left-sided pneumothorax. Small right apical pneumothorax unchanged. ADDITIONAL FINDINGS: No significant additional findings. IMPRESSION: Mild interval worsening. Signer Name: Luis Daniel Frost MD Signed: 02/04/2021 3:59 AM Workstation Name: [id number]
[2021-02-04] MEDS: fentaNYL DRIP Premix 2,000 MCG/100 ML BAG IV SCH (06:36)
[2021-02-04] MEDS: METOCLOPRAMIDE 10 MG/2 ML INJ IV SCH ×2 (06:37→15:50)
[2021-02-04 07:13] LABS: Hematocrit 26.2 % (35.5-45.6); Hemoglobin 8.5 gm/dl (11.8-15.2); Mean Corpuscular HGB Conc 32 % (32-34); Mean Corpuscular Volume 89 fl (84-94); Platelet Count 152 K/mm3 (140-440); Red Blood Count 2.95 M/mm3 (3.65-5.03); Red Cell Distribution Width 14.8 % (13.2-15.2)
--- NOTE | 2021-02-04 09:41 | Progress Note ---
Subjective Date of service: 02/04/21 Principal diagnosis: Ac hypoxemic resp failure; COVID-19; Pneumonia; Sepsis; Morbid obesity Interval history: Assessment: Acute kidney injury Hyperkalemia Acidosis Azotemia Acute respiratory failure, status post intubation Covid pneumonia pneumothorax Septic shock Recommendations HD prn, monitor for hemodynamic stablity, last hd 1.5 hrs yesterday before hemodynamics prevented full treatment Assess daily for needs for additional hemodialysis sessions UF Tolerated with hd chest tube --surgery note reviewed daily lytes, strict i/os likey ATN due to COvid infection Renally dose medications Avoid nephrotoxins [facility] referral noted, may not be group home dialysis appropriate, palliative care discussion appropriate Subjective Principal diagnosis: Ac hypoxemic resp failure; COVID-19; Pneumonia; Sepsis; Morbid obesity Interval history: Remains intubated. Objective - Exam exam deferred for preservation of ppe, primary team exam noted Objective - Vital Signs Vital signs: Vital Signs - 12hr 02/03/21 02/03/21 02/03/21 21:45 22:00 22:15 Temperature Pulse Rate 102 H 119 H 113 H Respiratory 33 H 36 H 34 H Rate Blood Pressure 145/60 126/63 126/48 O2 Sat by Pulse 89 91 90 Oximetry 02/03/21 02/03/21 02/03/21 22:31 22:45 23:01 Temperature Pulse Rate 110 H 111 H 100 H Respiratory 35 H 35 H 33 H Rate Blood Pressure 99/58 106/55 118/64 O2 Sat by Pulse 90 90 92 Oximetry 02/03/21 02/03/21 02/03/21 23:15 23:22 23:30 Temperature Pulse Rate 100 H 99 H 99 H Respiratory 33 H 34 H Rate Blood Pressure 159/63 143/62 156/63 O2 Sat by Pulse 92 92 91 Oximetry 02/03/21 02/03/21 02/04/21 23:45 23:57 00:00 Temperature 99.8 F H Pulse Rate 101 H 98 H Respiratory 34 H 34 H Rate Blood Pressure 143/66 172/50 O2 Sat by Pulse 91 90 Oximetry 02/04/21 02/04/21 02/04/21 00:01 03:10 05:04 Temperature 100.3 F H Pulse Rate 99 H 109 H Respiratory 32 H Rate Blood Pressure 155/52 107/64 O2 Sat by Pulse 91 90 Oximetry 02/04/21 08:00 Temperature 99 F Pulse Rate 98 H Respiratory Rate Blood Pressure 96/47 O2 Sat by Pulse 92 Oximetry - Lab 02/04/21 06:40 02/03/21 05:25 Most recent lab results ABG pH 7.329 (7.320-7.450) 02/04/21 04:00 ABG pCO2 46.6 mm Hg 01/26/21 08:30 ABG pO2 124.5 mm Hg (80.0-90.0) H 01/26/21 08:30 ABG HCO3 21.7 mmol/L (20.0-26.0) 01/26/21 08:30 ABG O2 Saturation 92.7 (0-100) 02/04/21 04:00 Calcium 7.8 mg/dL (8.4-10.2) L 02/03/21 05:25 Calcium 7.9 mg/dL (8.4-10.2) L 02/03/21 05:25 Phosphorus 8.50 mg/dL (2.5-4.5) H 02/03/21 05:25 Magnesium 2.50 mg/dL (1.7-2.3) H 02/03/21 05:25 Medications & Allergies - Medications Allergies/Adverse Reactions: Allergies No Known Allergies Allergy (Verified 01/27/21 15:55) Per Peg López Home Medications: Home Medications Medication Instructions Recorded Confirmed Last Taken Type No Known Home Medications [No 01/27/21 01/27/21 Unknown History Reported Home Medications] Active Medications: Generic Name Dose Route Start Last Admin Trade Name Freq PRN Reason Stop Dose Admin Albumin Human 25 gm 01/27/21 09:35 Albumin Human 25% (25 Gm/100 Ml) Inj IV MELECIO PRN Hypotension Amiodarone HCl 200 mg 01/30/21 10:00 02/03/21 09:40 Amiodarone 200 Mg Tab PO 200 mg DAILY JACK Administration Lipase/Protease/Amylase 1 each 01/27/21 11:37 Lipase 10,500/Protease 25,000/Amylase 43,750 (Units) Dr Singer FEEDTUBE PRN PRN For Clogged Feeding Tube Ascorbic Acid 500 mg 02/02/21 11:00 02/03/21 22:46 Ascorbic Acid 500 Mg Tab PO 500 mg BID JACK Administration Cholecalciferol 5,000 unit 02/02/21 11:00 02/03/21 09:40 Cholecalciferol (Vit D3) 5,000 Unit Tab PO 5,000 unit DAILY JACK Administration Dextrose 50 ml 01/29/21 12:24 Dextrose 50% In Water (25gm) 50 Ml Syringe IV Q30MIN PRN Hypoglycemia Protocol Famotidine 20 mg 01/27/21 10:00 02/03/21 09:40 Famotidine 20 Mg/2 Ml Inj IV 20 mg DAILY JACK Administration Fentanyl 50 mcg 01/25/21 11:32 01/28/21 06:10 Fentanyl 100 Mcg/2 Ml Inj IV 50 mcg Q10MIN PRN Administration ANALGESIA Fentanyl 50 mcg 02/03/21 15:20 Fentanyl 100 Mcg/2 Ml Inj IV Q10MIN PRN ANALGESIA Heparin Sodium (Porcine) 5,000 unit 01/28/21 09:27 Heparin 10,000 Units/10 Ml Vial IV Q6H PRN Anti-Xa Assay < 0.1 units/ml Hydrophilic Ointment 1 applic 01/25/21 13:27 Lip Therapy Vaseline TP Q2HR PRN Dry Lips Norepinephrine 4 mg in 250 mls @ 7.5 mls/hr 01/25/21 17:04 02/03/21 19:40 Levophed Drip 4 Mg/Ns 250 Ml IV 6 mcg/min TITR JACK 22.5 mls/hr Titration Protocol 2 MCG/MIN Sodium Chloride 100 mls @ 999 mls/hr 01/27/21 09:35 Nacl 0.9% IV MELECIO PRN Hypotension Vasopressin 20 unit/ Sodium 101 mls @ 9.09 mls/hr 01/28/21 07:00 01/30/21 08:55 Chloride IV Infused TITR JACK Titration Protocol 0.03 UNITS/MIN Heparin Sodium/Sodium Chloride 25,000 unit in 500 mls @ 30 mls/hr 01/28/21 11:00 02/03/21 22:49 Heparin/ 0.45% Nacl-25,000 Unit/500 Ml IV 1,500 units/hr TITR JACK 30 mls/hr Administration Protocol 1,500 UNITS/HR Cefepime HCl 1 gm in 100 mls @ 200 mls/hr 02/02/21 18:00 02/03/21 17:06 Cefepime/Ns 1 Gm/100 Ml IV 02/06/21 18:29 200 mls/hr QPM JACK Administration Protocol Fentanyl Citrate 2,000 mcg in 100 mls @ 6.4 mls/hr 02/03/21 16:00 02/04/21 06:36 Fentanyl Drip Premix IV 1 mcg/kg/hr TITR JACK 6.4 mls/hr Administration Protocol 1 MCG/KG/HR Insulin Human Regular 0 units 01/29/21 13:00 02/04/21 06:37 Insulin Regular, Human 100 Units/1 Ml SUB-Q 1 units Q6HR JACK Administration Protocol Lactulose 20 gm 02/03/21 14:00 02/04/21 06:38 Lactulose 20 Gm/30 Ml Oral Liqd PO 20 gm Q6HR JACK Administration Metoclopramide HCl 10 mg 02/02/21 14:00 02/04/21 06:37 Metoclopramide 10 Mg/2 Ml Inj IV 10 mg Q8H JACK Administration Multi-Ingred Cream/Lotion/Oil/Oint 1 applic 01/25/21 13:27 Mineral Oil/Petrolatum, White Ophth Oint 3.5 Gm OU Q4HR PRN Dry Eye(s) Ondansetron HCl 4 mg 01/22/21 23:03 Ondansetron 4 Mg/2 Ml Inj IV Q8H PRN Nausea And Vomiting Senna/Docusate Sodium 1 tab 01/25/21 22:00 02/03/21 22:47 Sennosides/Docusate Sodium 8.6/50 Mg Tab FEEDTUBE 1 tab BID JACK Administration Simple Syrup 15 ml 01/27/21 11:37 Simple Syrup 15 Ml FEEDTUBE PRN PRN Hypoglycemia Simple Syrup 30 ml 01/27/21 11:37 Simple Syrup 15 Ml FEEDTUBE PRN PRN Hypoglycemia Sodium Bicarbonate 325 mg 01/27/21 11:37 Sodium Bicarbonate 325 Mg Tab FEEDTUBE PRN PRN For Clogged Feeding Tube Sodium Chloride 10 ml 01/22/21 23:45 02/03/21 22:48 Sodium Chloride 0.9% 10 Ml Flush Syringe IV 10 ml BID JACK Administration Sodium Chloride 10 ml 01/22/21 23:03 Sodium Chloride 0.9% 10 Ml Flush Syringe IV PRN PRN LINE FLUSH Voriconazole 300 mg 01/29/21 11:00 02/03/21 22:46 Voriconazole 200 Mg Tab PO 300 mg Q12HR JACK Administration Zinc Sulfate 220 mg 02/02/21 11:00 02/03/21 22:46 Zinc Sulfate 220 Mg Cap PO 220 mg BID JACK Administration
[2021-02-04 10:49] LABS: Albumin 2.2 g/dL (3.9-5); Calcium 7.3 mg/dL (8.4-10.2)
[2021-02-04] MEDS: CHOLECALCIFEROL (VIT D3) 5,000 UNIT TAB PO SCH (12:19)
[2021-02-04] MEDS: SENNOSIDES/DOCUSATE SODIUM 8.6/50 MG TAB FEEDTUBE SCH ×2 (12:19→22:12)
[2021-02-04] MEDS: ZINC SULFATE 220 MG CAP PO SCH ×2 (12:20→22:12)
[2021-02-04] MEDS: VORICONAZOLE 200 MG TAB PO SCH ×2 (12:20→22:13)
[2021-02-04] MEDS: AMIODARONE 200 MG TAB PO SCH (12:20)
[2021-02-04] MEDS: FAMOTIDINE 20 MG/2 ML INJ IV SCH (12:20)
[2021-02-04] MEDS: ASCORBIC ACID 500 MG TAB PO SCH ×2 (12:21→22:12)
--- NOTE | 2021-02-04 16:03 | Progress Note ---
Assessment and Plan Acute hypoxemic respiratory failure COVID-19 infection Multifocal pneumonia Hypernatremia Sepsis Morbid obesity with BMI of 40.0-44.9, adult - will add empiric Flagyl re: leucocytosis and prior G.I. S&S - continue all chest tubes to wall suction (continuous) - peep increased to 18 overnight - wean supplemental oxygen for target O2 sat's > 92% acutely - continue Reglan to 10 mg IV q8h - continue HD/UF per nephrology prescription for toxin and volume clearance - Vasopressors for target MAP > 65 mmHg - continue care as below otherwise; - Daily SAT and SBT assessment as tolerated - VAP bundle addressed - continue lung protective strategies - continue bronchodilators with pulmonary hygiene per RT - wean per pulmonary driven protocols otherwise - avoid nephrotoxins, renally dose all medications - continue to avoid benzodiazepine's, reduce the possibility of delirium - complete AB's per ID rec's - prn analgesia per CPOT score - Maintenance of sleep-wake cycle, avoid delirium - enteral nutritional support at goal rate as tolerated - G.I. & VTE prophylaxis - PT/OT/ROM exercises - continue mobility protocols for pressure ulcer prophylaxis - Monitor hemodynamics closely - continue other care per attending / other consultants - discharge planning ongoing concurrently COVID SPECIFIC INTERVENTIONS - Remdesivir as per ID/Pulmonary developed protocols (receiving) - continue systemic steroids for severe COVID-19 infection (Dexamethasone) - follow repeat COVID tests results - zinc and vitamin C supplementation - Monitor inflammatory markers per facility protocol - ferritin, Ddimer, CRP - therapeutic anticoagulation per system Protocol based on d-dimer and clinical considerations (VTE prophylaxis doses now) - Continue contact and airborne isolation .... Re-evaluate in am & prn CONDITION: CRITICAL PROGNOSIS: GRAVE CODE STATUS: FULL CODE The high probability of a clinically significant, sudden or life-threatening deterioration of the [respiratory, cardiovascular & neurologic] system(s) required my full and direct attention, intervention and personal management. The aggregate critical care time was [33] minutes without overlap. Time includes spent on; [x] Data Review and interpretation [x] Patient assessment and monitoring of vital signs [x] Documentation [x] Medication orders and management Subjective Date of service: 02/04/21 Principal diagnosis: Ac hypoxemic resp failure; COVID-19; Pneumonia; Sepsis; Morbid obesity Interval history: Patient is seen today for: Acute hypoxemic respiratory failure; COVID- 19infection; Multifocal pneumonia; Hypernatremia; Sepsis; Morbid obesity Seen and examined at bedside; 24hour events reviewed; nursing and respiratory care staff consulted; no adverse overnight events reported to me; resting in bed; remains on MVS; chest tubes in place; by my read left PTX is smaller; AMS is persistent Objective Vital Signs - 12hr 02/04/21 02/04/21 02/04/21 04:15 04:30 04:45 Temperature Pulse Rate 108 H 109 H 112 H Respiratory 35 H 36 H 34 H Rate Blood Pressure 102/65 109/56 113/57 O2 Sat by Pulse 89 90 90 Oximetry 02/04/21 02/04/21 02/04/21 05:00 05:04 05:15 Temperature Pulse Rate 109 H 109 H 107 H Respiratory 36 H 34 H Rate Blood Pressure 110/56 107/64 110/52 O2 Sat by Pulse 90 90 91 Oximetry 02/04/21 02/04/21 02/04/21 05:31 05:45 06:00 Temperature Pulse Rate 104 H 104 H 109 H Respiratory 34 H 34 H 36 H Rate Blood Pressure 97/50 82/46 109/52 O2 Sat by Pulse 92 92 91 Oximetry 02/04/21 02/04/21 02/04/21 06:15 06:30 06:45 Temperature Pulse Rate 107 H 102 H 109 H Respiratory 34 H 35 H 35 H Rate Blood Pressure 133/40 102/52 123/54 O2 Sat by Pulse 91 92 90 Oximetry 02/04/21 02/04/21 02/04/21 07:00 07:15 07:30 Temperature Pulse Rate 106 H 104 H 110 H Respiratory 36 H 34 H 35 H Rate Blood Pressure 90/44 94/44 94/46 O2 Sat by Pulse 91 91 91 Oximetry 02/04/21 02/04/21 02/04/21 07:45 08:00 08:01 Temperature 99 F Pulse Rate 105 H 98 H 101 H Respiratory 34 H 34 H Rate Blood Pressure 97/46 96/47 103/44 O2 Sat by Pulse 91 94 92 Oximetry 02/04/21 02/04/21 02/04/21 08:15 08:30 08:45 Temperature Pulse Rate 102 H 100 H 97 H Respiratory 35 H 35 H 34 H Rate Blood Pressure 108/41 85/48 102/38 O2 Sat by Pulse 92 92 92 Oximetry 02/04/21 02/04/21 02/04/21 09:00 09:15 09:30 Temperature Pulse Rate 98 H 99 H 97 H Respiratory 34 H 33 H 33 H Rate Blood Pressure 85/44 99/45 96/47 O2 Sat by Pulse 92 92 91 Oximetry 02/04/21 02/04/21 02/04/21 09:45 10:00 10:15 Temperature Pulse Rate 97 H 95 H 96 H Respiratory 33 H 32 H 32 H Rate Blood Pressure 106/47 101/36 105/44 O2 Sat by Pulse 92 91 90 Oximetry 02/04/21 02/04/21 02/04/21 10:30 10:45 11:00 Temperature Pulse Rate 92 H 92 H 92 H Respiratory 31 H 31 H 30 H Rate Blood Pressure 94/42 100/40 98/42 O2 Sat by Pulse 88 87 87 Oximetry 02/04/21 02/04/21 02/04/21 11:15 11:30 11:45 Temperature Pulse Rate 92 H 92 H 92 H Respiratory 31 H 32 H 30 H Rate Blood Pressure 105/40 115/41 114/38 O2 Sat by Pulse 86 86 86 Oximetry 02/04/21 02/04/21 02/04/21 12:00 12:15 12:30 Temperature 98.9 F Pulse Rate 91 H 90 94 H Respiratory 30 H 31 H 32 H Rate Blood Pressure 66/52 99/43 83/50 O2 Sat by Pulse 90 87 87 Oximetry 02/04/21 02/04/21 02/04/21 12:45 13:01 13:15 Temperature Pulse Rate 91 H 92 H 91 H Respiratory 31 H 31 H 30 H Rate Blood Pressure 108/47 116/44 112/48 O2 Sat by Pulse 85 84 84 Oximetry 02/04/21 02/04/21 02/04/21 13:31 13:45 14:00 Temperature Pulse Rate 91 H 98 H 99 H Respiratory 31 H 31 H 31 H Rate Blood Pressure 111/51 107/47 99/47 O2 Sat by Pulse 84 87 89 Oximetry 02/04/21 02/04/21 02/04/21 14:15 14:31 14:45 Temperature Pulse Rate 96 H 94 H 99 H Respiratory 30 H 31 H 30 H Rate Blood Pressure 97/45 103/52 99/52 O2 Sat by Pulse 90 89 90 Oximetry 02/04/21 15:00 Temperature Pulse Rate 113 H Respiratory 31 H Rate Blood Pressure 110/46 O2 Sat by Pulse 88 Oximetry Constitutional: appears uncomfortable, other (middle aged obese male with mildly increased respiratory effort at rest on MVS) Eyes: non-icteric ENT: oropharynx moist, other (ETT 24 cm BRE) Neck: supple, no lymphadenopathy, no JVD, other (large circumference) Effort: mildly labored Ascultation: Bilateral: diminished breath sounds, rhonchi, other (L&R chest tubes in place; + SQ emphysema) Percussion: Bilateral: not dull Cardiovascular: regular rate and rhythm Gastrointestinal: normoactive bowel sounds, soft, non-tender, non-distended (protuberant) Integumentary: normal Extremities: no cyanosis, no edema, pink and warm, pulses normal Neurologic: pupils equal and round, unable to assess (sedated) Psychiatric: other (unable top assess re: AMS) CBC and BMP: 02/04/21 06:40 02/04/21 05:00 ABG, PT/INR, D-dimer: ABG ABG pH 7.329 (7.320-7.450) 02/04/21 04:00 POC ABG pCO2 47.3 mmHg (32.0-48.0) 02/04/21 04:00 ABG pCO2 46.6 mm Hg 01/26/21 08:30 POC ABG pO2 69.2 mmHg (83-108) L 02/04/21 04:00 ABG pO2 124.5 mm Hg (80.0-90.0) H 01/26/21 08:30 POC ABG HCO3 24.3 02/04/21 04:00 ABG O2 Saturation 92.7 (0-100) 02/04/21 04:00 PT/INR, D-dimer PT 15.1 Sec. (12.2-14.9) H 02/02/21 Unknown INR 1.13 (0.87-1.13) 02/02/21 Unknown D-Dimer 4328.24 ng/mlDDU (0-234) H 02/03/21 05:25 Abnormal lab findings: Abnormal Labs 01/22/21 01/22/21 01/22/21 11:06 11:06 11:06 WBC RBC Hgb Hct Plt Count Lymph % (Auto) Lymph # (Auto) [place] # (Auto) Seg Neutrophils % Seg Neuts % (Manual) Lymphocytes % (Manual) Nucleated RBC % Seg Neutrophils # Seg Neutrophils # Man Lymphocytes # (Manual) Monocytes # (Manual) Eosinophils # (Manual) PT INR D-Dimer 2625.11 H Heparin Anti-Xa Level ABG pH POC ABG pCO2 POC ABG pO2 ABG pO2 ABG Base Excess ABG Hemoglobin ABG Oxyhemoglobin ABG Sodium ABG Potassium ABG Chloride ABG Glucose Carboxyhemoglobin Sodium Potassium Chloride Carbon Dioxide BUN Creatinine Glucose 130 H POC Glucose Hemoglobin A1c Lactic Acid Calcium Phosphorus Magnesium Ferritin 557.5 H Total Bilirubin Direct Bilirubin AST ALT Alkaline Phosphatase Ammonia Lactate Dehydrogenase 799 H Total Creatine Kinase C-Reactive Protein 3.30 H Total Protein Albumin Volbx-1-Dnydczwit Rvgxa-2-Tjlwkfxpc Beta Globulins Abnorm Protein Band 1 PEP Interpretation Triglycerides TSH Thyroxine (T4) Free T3 Index Arterial Blood Glucose Arterial Blood Ionized Calcium Immunofix Electrophor Coronavirus (PCR) Miscellaneous Test 01/22/21 01/22/21 01/22/21 11:06 11:06 11:06 WBC 19.2 H RBC 5.63 H Hgb 15.8 H Hct 49.0 H Plt Count Lymph % (Auto) Lymph # (Auto) [place] # (Auto) Seg Neutrophils % Seg Neuts % (Manual) 92.0 H Lymphocytes % (Manual) 1.0 L Nucleated RBC % 1.0 H Seg Neutrophils # Seg Neutrophils # Man 17.7 H Lymphocytes # (Manual) 0.2 L Monocytes # (Manual) 1.0 H Eosinophils # (Manual) PT INR D-Dimer Heparin Anti-Xa Level ABG pH POC ABG pCO2 POC ABG pO2 ABG pO2 ABG Base Excess ABG Hemoglobin ABG Oxyhemoglobin ABG Sodium ABG Potassium ABG Chloride ABG Glucose Carboxyhemoglobin Sodium Potassium 3.3 L Chloride Carbon Dioxide 20 L BUN 32 H Creatinine Glucose 130 H POC Glucose Hemoglobin A1c Lactic Acid 4.20 H* Calcium Phosphorus Magnesium Ferritin Total Bilirubin Direct Bilirubin AST ALT Alkaline Phosphatase Ammonia Lactate Dehydrogenase Total Creatine Kinase C-Reactive Protein Total Protein Albumin 2.9 L Xzzhi-4-Rxhjubvzf Aypaz-7-Ufshtyqim Beta Globulins Abnorm Protein Band 1 PEP Interpretation Triglycerides TSH Thyroxine (T4) Free T3 Index Arterial Blood Glucose Arterial Blood Ionized Calcium Immunofix Electrophor Coronavirus (PCR) Miscellaneous Test 01/22/21 01/22/21 01/23/21 11:06 12:03 05:29 WBC 19.0 H RBC 5.24 H Hgb 15.3 H Hct 46.0 H Plt Count Lymph % (Auto) 4.4 L Lymph # (Auto) 0.8 L [place] # (Auto) 1.2 H Seg Neutrophils % 89.1 H Seg Neuts % (Manual) Lymphocytes % (Manual) Nucleated RBC % Seg Neutrophils # 16.9 H Seg Neutrophils # Man Lymphocytes # (Manual) Monocytes # (Manual) Eosinophils # (Manual) PT INR D-Dimer Heparin Anti-Xa Level ABG pH POC ABG pCO2 30.7 L POC ABG pO2 61.4 L ABG pO2 ABG Base Excess ABG Hemoglobin ABG Oxyhemoglobin 90.5 L ABG Sodium ABG Potassium ABG Chloride ABG Glucose Carboxyhemoglobin 1.7 H Sodium Potassium Chloride Carbon Dioxide BUN Creatinine Glucose POC Glucose Hemoglobin A1c 6.2 H Lactic Acid Calcium Phosphorus Magnesium Ferritin Total Bilirubin Direct Bilirubin AST ALT Alkaline Phosphatase Ammonia Lactate Dehydrogenase Total Creatine Kinase C-Reactive Protein Total Protein Albumin Fgmmk-9-Vuchkbjuq Kkcct-0-Kgnofmerq Beta Globulins Abnorm Protein Band 1 PEP Interpretation Triglycerides TSH Thyroxine (T4) Free T3 Index Arterial Blood Glucose Arterial Blood Ionized Calcium Immunofix Electrophor Coronavirus (PCR) Miscellaneous Test 01/23/21 01/23/21 01/23/21 05:29 09:00 16:55 WBC RBC Hgb Hct Plt Count Lymph % (Auto) Lymph # (Auto) [place] # (Auto) Seg Neutrophils % Seg Neuts % (Manual) Lymphocytes % (Manual) Nucleated RBC % Seg Neutrophils # Seg Neutrophils # Man Lymphocytes # (Manual) Monocytes # (Manual) Eosinophils # (Manual) PT INR D-Dimer Heparin Anti-Xa Level ABG pH POC ABG pCO2 POC ABG pO2 ABG pO2 ABG Base Excess ABG Hemoglobin ABG Oxyhemoglobin ABG Sodium ABG Potassium ABG Chloride ABG Glucose Carboxyhemoglobin Sodium Potassium 3.5 L Chloride Carbon Dioxide BUN 29 H 27 H Creatinine Glucose 132 H 103 H POC Glucose Hemoglobin A1c Lactic Acid Calcium Phosphorus Magnesium Ferritin Total Bilirubin Direct Bilirubin AST ALT Alkaline Phosphatase Ammonia Lactate Dehydrogenase Total Creatine Kinase C-Reactive Protein Total Protein Albumin 2.9 L 2.9 L Xvrhf-3-Xcossoten Jzvts-2-Emvttopkh Beta Globulins Abnorm Protein Band 1 PEP Interpretation Triglycerides TSH Thyroxine (T4) Free T3 Index Arterial Blood Glucose Arterial Blood Ionized Calcium Immunofix Electrophor Coronavirus (PCR) Positive A Miscellaneous Test 01/24/21 01/24/21 01/24/21 05:50 20:20 20:20 WBC RBC Hgb Hct Plt Count Lymph % (Auto) Lymph # (Auto) [place] # (Auto) Seg Neutrophils % Seg Neuts % (Manual) Lymphocytes % (Manual) Nucleated RBC % Seg Neutrophils # Seg Neutrophils # Man Lymphocytes # (Manual) Monocytes # (Manual) Eosinophils # (Manual) PT INR D-Dimer Heparin Anti-Xa Level ABG pH POC ABG pCO2 POC ABG pO2 ABG pO2 ABG Base Excess ABG Hemoglobin ABG Oxyhemoglobin ABG Sodium ABG Potassium ABG Chloride ABG Glucose Carboxyhemoglobin Sodium 148 H Potassium 5.3 H D Chloride 109.3 H Carbon Dioxide BUN 26 H Creatinine 0.7 L Glucose 130 H POC Glucose Hemoglobin A1c Lactic Acid Calcium Phosphorus Magnesium Ferritin 1031.0 H Total Bilirubin Direct Bilirubin AST 45 H ALT Alkaline Phosphatase Ammonia Lactate Dehydrogenase 1511 H Total Creatine Kinase C-Reactive Protein 12.00 H Total Protein Albumin 2.9 L Xvahe-0-Wjdcxektc Rqnkj-8-Vroaiczdb Beta Globulins Abnorm Protein Band 1 PEP Interpretation Triglycerides TSH Thyroxine (T4) Free T3 Index Arterial Blood Glucose Arterial Blood Ionized Calcium Immunofix Electrophor Coronavirus (PCR) Miscellaneous Test 01/24/21 01/25/21 01/25/21 20:20 06:22 06:22 WBC RBC Hgb Hct Plt Count Lymph % (Auto) Lymph # (Auto) [place] # (Auto) Seg Neutrophils % Seg Neuts % (Manual) Lymphocytes % (Manual) Nucleated RBC % Seg Neutrophils # Seg Neutrophils # Man Lymphocytes # (Manual) Monocytes # (Manual) Eosinophils # (Manual) PT INR D-Dimer > 79450 H > 07310 H Heparin Anti-Xa Level ABG pH POC ABG pCO2 POC ABG pO2 ABG pO2 ABG Base Excess ABG Hemoglobin ABG Oxyhemoglobin ABG Sodium ABG Potassium ABG Chloride ABG Glucose Carboxyhemoglobin Sodium 153 H Potassium 3.4 L D Chloride 116.1 H Carbon Dioxide 21 L BUN 27 H Creatinine Glucose 133 H POC Glucose Hemoglobin A1c Lactic Acid Calcium Phosphorus Magnesium Ferritin Total Bilirubin 1.30 H Direct Bilirubin AST 50 H ALT Alkaline Phosphatase 159 H Ammonia Lactate Dehydrogenase Total Creatine Kinase C-Reactive Protein Total Protein Albumin 2.9 L Pnqbr-0-Utzfjgpyz Fpgbg-8-Lzxttsjdd Beta Globulins Abnorm Protein Band 1 PEP Interpretation Triglycerides TSH Thyroxine (T4) Free T3 Index Arterial Blood Glucose Arterial Blood Ionized Calcium Immunofix Electrophor Coronavirus (PCR) Miscellaneous Test 01/25/21 01/25/21 01/25/21 06:22 09:35 11:25 WBC RBC Hgb Hct Plt Count Lymph % (Auto) Lymph # (Auto) [place] # (Auto) Seg Neutrophils % Seg Neuts % (Manual) Lymphocytes % (Manual) Nucleated RBC % Seg Neutrophils # Seg Neutrophils # Man Lymphocytes # (Manual) Monocytes # (Manual) Eosinophils # (Manual) PT INR D-Dimer Heparin Anti-Xa Level ABG pH 7.453 H 7.228 L POC ABG pCO2 60.0 H POC ABG pO2 44.9 L 111.7 H ABG pO2 ABG Base Excess ABG Hemoglobin ABG Oxyhemoglobin 81.4 L ABG Sodium 153.1 H 150.9 H ABG Potassium 3.3 L ABG Chloride 116.0 H 117.0 H ABG Glucose 151 H 155 H Carboxyhemoglobin Sodium Potassium Chloride Carbon Dioxide BUN Creatinine Glucose POC Glucose Hemoglobin A1c Lactic Acid Calcium Phosphorus Magnesium Ferritin Total Bilirubin Direct Bilirubin AST ALT Alkaline Phosphatase Ammonia Lactate Dehydrogenase Total Creatine Kinase C-Reactive Protein 16.80 H Total Protein Albumin Ijbxc-1-Jnjrqrlkw Ikjht-6-Svwszrpvf Beta Globulins Abnorm Protein Band 1 PEP Interpretation Triglycerides TSH Thyroxine (T4) Free T3 Index Arterial Blood Glucose 151 H 155 H Arterial Blood Ionized Calcium Immunofix Electrophor Coronavirus (PCR) Miscellaneous Test 01/25/21 01/26/21 01/26/21 21:00 07:32 07:39 WBC RBC Hgb Hct Plt Count Lymph % (Auto) Lymph # (Auto) [place] # (Auto) Seg Neutrophils % Seg Neuts % (Manual) Lymphocytes % (Manual) Nucleated RBC % Seg Neutrophils # Seg Neutrophils # Man Lymphocytes # (Manual) Monocytes # (Manual) Eosinophils # (Manual) PT INR D-Dimer Heparin Anti-Xa Level ABG pH POC ABG pCO2 POC ABG pO2 68.5 L ABG pO2 ABG Base Excess ABG Hemoglobin ABG Oxyhemoglobin 91.3 L ABG Sodium 151.9 H ABG Potassium ABG Chloride 117.0 H ABG Glucose 140 H Carboxyhemoglobin Sodium 151 H Potassium Chloride 116.7 H Carbon Dioxide 20 L BUN 59 H Creatinine 3.4 H D Glucose 121 H POC Glucose Hemoglobin A1c Lactic Acid Calcium Phosphorus Magnesium Ferritin 1921.0 H Total Bilirubin Direct Bilirubin AST 45 H ALT Alkaline Phosphatase 137 H Ammonia Lactate Dehydrogenase 1559 H Total Creatine Kinase C-Reactive Protein 20.90 H Total Protein Albumin 2.3 L Fbhpb-8-Etmpngzaq Zsqix-3-Mzcdwnwrl Beta Globulins Abnorm Protein Band 1 PEP Interpretation Triglycerides TSH Thyroxine (T4) Free T3 Index Arterial Blood Glucose 140 H Arterial Blood Ionized Calcium Immunofix Electrophor Coronavirus (PCR) Miscellaneous Test 01/26/21 01/26/21 01/26/21 08:30 17:55 20:39 WBC RBC Hgb Hct Plt Count Lymph % (Auto) Lymph # (Auto) [place] # (Auto) Seg Neutrophils % Seg Neuts % (Manual) Lymphocytes % (Manual) Nucleated RBC % Seg Neutrophils # Seg Neutrophils # Man Lymphocytes # (Manual) Monocytes # (Manual) Eosinophils # (Manual) PT INR D-Dimer Heparin Anti-Xa Level ABG pH 7.287 L POC ABG pCO2 POC ABG pO2 ABG pO2 124.5 H ABG Base Excess -5.0 L ABG Hemoglobin ABG Oxyhemoglobin ABG Sodium ABG Potassium ABG Chloride ABG Glucose Carboxyhemoglobin Sodium 152 H Potassium 6.0 H D Chloride 117.2 H Carbon Dioxide 15 L BUN 80 H Creatinine 5.6 H D Glucose 156 H POC Glucose 141 H Hemoglobin A1c Lactic Acid Calcium 7.4 L Phosphorus Magnesium Ferritin Total Bilirubin Direct Bilirubin AST ALT Alkaline Phosphatase Ammonia Lactate Dehydrogenase Total Creatine Kinase C-Reactive Protein Total Protein Albumin Ivwku-9-Orhcpubnp Axjka-9-Sfmsjspcx Beta Globulins Abnorm Protein Band 1 PEP Interpretation Triglycerides TSH Thyroxine (T4) Free T3 Index Arterial Blood Glucose Arterial Blood Ionized Calcium Immunofix Electrophor Coronavirus (PCR) Miscellaneous Test 01/26/21 01/27/21 01/27/21 23:14 02:55 05:00 WBC RBC Hgb Hct Plt Count Lymph % (Auto) Lymph # (Auto) [place] # (Auto) Seg Neutrophils % Seg Neuts % (Manual) Lymphocytes % (Manual) Nucleated RBC % Seg Neutrophils # Seg Neutrophils # Man Lymphocytes # (Manual) Monocytes # (Manual) Eosinophils # (Manual) PT INR D-Dimer Heparin Anti-Xa Level ABG pH 7.215 L POC ABG pCO2 48.9 H POC ABG pO2 143.3 H ABG pO2 ABG Base Excess ABG Hemoglobin ABG Oxyhemoglobin ABG Sodium 150.0 H ABG Potassium 5.0 H ABG Chloride 118.0 H ABG Glucose 180 H Carboxyhemoglobin Sodium 154 H Potassium 5.3 H Chloride 117.2 H Carbon Dioxide 19 L BUN 92 H Creatinine 6.4 H Glucose 175 H POC Glucose 148 H Hemoglobin A1c Lactic Acid Calcium 7.9 L Phosphorus Magnesium Ferritin Total Bilirubin Direct Bilirubin AST ALT Alkaline Phosphatase Ammonia Lactate Dehydrogenase Total Creatine Kinase C-Reactive Protein Total Protein Albumin Psbgn-5-Jvezgojme Sxxcq-1-Heshaexft Beta Globulins Abnorm Protein Band 1 PEP Interpretation Triglycerides TSH Thyroxine (T4) Free T3 Index Arterial Blood Glucose 180 H Arterial Blood Ionized Calcium 4.5 L Immunofix Electrophor Coronavirus (PCR) Miscellaneous Test 01/27/21 01/27/21 01/27/21 05:00 05:14 11:42 WBC RBC Hgb Hct Plt Count Lymph % (Auto) Lymph # (Auto) [place] # (Auto) Seg Neutrophils % Seg Neuts % (Manual) Lymphocytes % (Manual) Nucleated RBC % Seg Neutrophils # Seg Neutrophils # Man Lymphocytes # (Manual) Monocytes # (Manual) Eosinophils # (Manual) PT INR D-Dimer Heparin Anti-Xa Level ABG pH POC ABG pCO2 POC ABG pO2 ABG pO2 ABG Base Excess ABG Hemoglobin ABG Oxyhemoglobin ABG Sodium ABG Potassium ABG Chloride ABG Glucose Carboxyhemoglobin Sodium Potassium Chloride Carbon Dioxide BUN Creatinine Glucose POC Glucose 159 H 171 H Hemoglobin A1c Lactic Acid Calcium Phosphorus Magnesium Ferritin Total Bilirubin Direct Bilirubin AST ALT Alkaline Phosphatase Ammonia Lactate Dehydrogenase Total Creatine Kinase 258 H C-Reactive Protein Total Protein Albumin Tjydr-7-Bujcefzce Cmowb-9-Lnmwhcsrc Beta Globulins Abnorm Protein Band 1 PEP Interpretation Triglycerides TSH Thyroxine (T4) Free T3 Index Arterial Blood Glucose Arterial Blood Ionized Calcium Immunofix Electrophor Coronavirus (PCR) Miscellaneous Test 01/27/21 01/27/21 01/27/21 11:55 11:55 18:00 WBC RBC Hgb Hct Plt Count Lymph % (Auto) Lymph # (Auto) [place] # (Auto) Seg Neutrophils % Seg Neuts % (Manual) Lymphocytes % (Manual) Nucleated RBC % Seg Neutrophils # Seg Neutrophils # Man Lymphocytes # (Manual) Monocytes # (Manual) Eosinophils # (Manual) PT INR D-Dimer Heparin Anti-Xa Level ABG pH POC ABG pCO2 POC ABG pO2 ABG pO2 ABG Base Excess ABG Hemoglobin ABG Oxyhemoglobin ABG Sodium ABG Potassium ABG Chloride ABG Glucose Carboxyhemoglobin Sodium Potassium Chloride Carbon Dioxide BUN Creatinine Glucose POC Glucose 185 H Hemoglobin A1c Lactic Acid Calcium Phosphorus Magnesium Ferritin Total Bilirubin Direct Bilirubin AST ALT Alkaline Phosphatase Ammonia Lactate Dehydrogenase Total Creatine Kinase C-Reactive Protein Total Protein Albumin 2.5 L Ztvqg-1-Ergifxqpq 0.7 H Zmarj-4-Tjvmxodxm 1.2 H Beta Globulins 0.7 H Abnorm Protein Band 1 0.5 H PEP Interpretation see below H Triglycerides TSH Thyroxine (T4) Free T3 Index Arterial Blood Glucose Arterial Blood Ionized Calcium Immunofix Electrophor see below H Coronavirus (PCR) Miscellaneous Test 01/28/21 01/28/21 01/28/21 04:00 04:00 10:03 WBC RBC Hgb Hct Plt Count 104 L Lymph % (Auto) Lymph # (Auto) [place] # (Auto) Seg Neutrophils % Seg Neuts % (Manual) Lymphocytes % (Manual) Nucleated RBC % Seg Neutrophils # Seg Neutrophils # Man Lymphocytes # (Manual) Monocytes # (Manual) Eosinophils # (Manual) PT INR D-Dimer Heparin Anti-Xa Level ABG pH 7.272 L POC ABG pCO2 48.4 H POC ABG pO2 ABG pO2 ABG Base Excess ABG Hemoglobin ABG Oxyhemoglobin ABG Sodium ABG Potassium ABG Chloride ABG Glucose 174 H Carboxyhemoglobin Sodium Potassium Chloride Carbon Dioxide BUN Creatinine Glucose POC Glucose Hemoglobin A1c Lactic Acid Calcium Phosphorus Magnesium Ferritin Total Bilirubin Direct Bilirubin AST ALT Alkaline Phosphatase Ammonia Lactate Dehydrogenase Total Creatine Kinase C-Reactive Protein Total Protein Albumin Qfkxl-3-Ihjoczcmc Ciyiv-3-Zyqstndig Beta Globulins Abnorm Protein Band 1 PEP Interpretation Triglycerides 369 H TSH Thyroxine (T4) Free T3 Index Arterial Blood Glucose 174 H Arterial Blood Ionized Calcium 4.3 L Immunofix Electrophor Coronavirus (PCR) Miscellaneous Test 01/28/21 01/28/21 01/28/21 10:03 10:03 10:03 WBC RBC Hgb Hct Plt Count Lymph % (Auto) Lymph # (Auto) [place] # (Auto) Seg Neutrophils % Seg Neuts % (Manual) Lymphocytes % (Manual) Nucleated RBC % Seg Neutrophils # Seg Neutrophils # Man Lymphocytes # (Manual) Monocytes # (Manual) Eosinophils # (Manual) PT 17.3 H INR 1.36 H D-Dimer Heparin Anti-Xa Level ABG pH POC ABG pCO2 POC ABG pO2 ABG pO2 ABG Base Excess ABG Hemoglobin ABG Oxyhemoglobin ABG Sodium ABG Potassium ABG Chloride ABG Glucose Carboxyhemoglobin Sodium Potassium 5.2 H Chloride Carbon Dioxide BUN 69 H Creatinine 5.6 H Glucose 220 H POC Glucose Hemoglobin A1c Lactic Acid Calcium 7.7 L Phosphorus Magnesium Ferritin Total Bilirubin Direct Bilirubin AST ALT Alkaline Phosphatase Ammonia Lactate Dehydrogenase Total Creatine Kinase C-Reactive Protein Total Protein Albumin Lqlzm-3-Fgmlltdua Nitau-2-Kmxfscvuj Beta Globulins Abnorm Protein Band 1 PEP Interpretation Triglycerides TSH 0.013 L Thyroxine (T4) Free T3 Index Arterial Blood Glucose Arterial Blood Ionized Calcium Immunofix Electrophor Coronavirus (PCR) Miscellaneous Test 01/28/21 01/28/21 01/28/21 11:34 13:40 15:31 WBC RBC Hgb Hct Plt Count Lymph % (Auto) Lymph # (Auto) [place] # (Auto) Seg Neutrophils % Seg Neuts % (Manual) Lymphocytes % (Manual) Nucleated RBC % Seg Neutrophils # Seg Neutrophils # Man Lymphocytes # (Manual) Monocytes # (Manual) Eosinophils # (Manual) PT INR D-Dimer Heparin Anti-Xa Level 1.21 H ABG pH POC ABG pCO2 POC ABG pO2 ABG pO2 ABG Base Excess ABG Hemoglobin ABG Oxyhemoglobin ABG Sodium ABG Potassium ABG Chloride ABG Glucose Carboxyhemoglobin Sodium Potassium Chloride Carbon Dioxide BUN Creatinine Glucose POC Glucose 221 H Hemoglobin A1c Lactic Acid Calcium Phosphorus Magnesium 2.50 H Ferritin Total Bilirubin Direct Bilirubin AST ALT Alkaline Phosphatase Ammonia Lactate Dehydrogenase Total Creatine Kinase C-Reactive Protein Total Protein Albumin Kgbsw-7-Mjhnnbpnu Zkjxb-9-Fluwkqsuz Beta Globulins Abnorm Protein Band 1 PEP Interpretation Triglycerides TSH Thyroxine (T4) Free T3 Index Arterial Blood Glucose Arterial Blood Ionized Calcium Immunofix Electrophor Coronavirus (PCR) Miscellaneous Test 01/28/21 01/29/21 01/29/21 18:02 04:00 04:30 WBC RBC Hgb Hct Plt Count Lymph % (Auto) Lymph # (Auto) [place] # (Auto) Seg Neutrophils % Seg Neuts % (Manual) Lymphocytes % (Manual) Nucleated RBC % Seg Neutrophils # Seg Neutrophils # Man Lymphocytes # (Manual) Monocytes # (Manual) Eosinophils # (Manual) PT INR D-Dimer Heparin Anti-Xa Level 0.81 H ABG pH 7.229 L POC ABG pCO2 48.8 H POC ABG pO2 ABG pO2 ABG Base Excess ABG Hemoglobin ABG Oxyhemoglobin ABG Sodium 135.3 L ABG Potassium 5.2 H ABG Chloride ABG Glucose 264 H Carboxyhemoglobin Sodium Potassium Chloride Carbon Dioxide BUN Creatinine Glucose POC Glucose 215 H Hemoglobin A1c Lactic Acid Calcium Phosphorus Magnesium Ferritin Total Bilirubin Direct Bilirubin AST ALT Alkaline Phosphatase Ammonia Lactate Dehydrogenase Total Creatine Kinase C-Reactive Protein Total Protein Albumin Mvhje-9-Krxrfrddy Jmiuu-7-Uvrwdupny Beta Globulins Abnorm Protein Band 1 PEP Interpretation Triglycerides TSH Thyroxine (T4) Free T3 Index Arterial Blood Glucose 264 H Arterial Blood Ionized Calcium 4.0 L Immunofix Electrophor Coronavirus (PCR) Miscellaneous Test 01/29/21 01/29/21 01/29/21 13:23 17:56 23:12 WBC RBC Hgb Hct Plt Count Lymph % (Auto) Lymph # (Auto) [place] # (Auto) Seg Neutrophils % Seg Neuts % (Manual) Lymphocytes % (Manual) Nucleated RBC % Seg Neutrophils # Seg Neutrophils # Man Lymphocytes # (Manual) Monocytes # (Manual) Eosinophils # (Manual) PT INR D-Dimer Heparin Anti-Xa Level ABG pH POC ABG pCO2 POC ABG pO2 ABG pO2 ABG Base Excess ABG Hemoglobin ABG Oxyhemoglobin ABG Sodium ABG Potassium ABG Chloride ABG Glucose Carboxyhemoglobin Sodium Potassium Chloride Carbon Dioxide BUN Creatinine Glucose POC Glucose 198 H 200 H 172 H Hemoglobin A1c Lactic Acid Calcium Phosphorus Magnesium Ferritin Total Bilirubin Direct Bilirubin AST ALT Alkaline Phosphatase Ammonia Lactate Dehydrogenase Total Creatine Kinase C-Reactive Protein Total Protein Albumin Pdxiu-3-Curdhbcwk Hpgtr-3-Efnzmngcu Beta Globulins Abnorm Protein Band 1 PEP Interpretation Triglycerides TSH Thyroxine (T4) Free T3 Index Arterial Blood Glucose Arterial Blood Ionized Calcium Immunofix Electrophor Coronavirus (PCR) Miscellaneous Test 01/29/21 01/29/21 01/30/21 Unknown Unknown 04:00 WBC RBC Hgb Hct Plt Count Lymph % (Auto) Lymph # (Auto) [place] # (Auto) Seg Neutrophils % Seg Neuts % (Manual) Lymphocytes % (Manual) Nucleated RBC % Seg Neutrophils # Seg Neutrophils # Man Lymphocytes # (Manual) Monocytes # (Manual) Eosinophils # (Manual) PT INR D-Dimer Heparin Anti-Xa Level 0.85 H ABG pH 7.304 L POC ABG pCO2 POC ABG pO2 112.8 H ABG pO2 ABG Base Excess ABG Hemoglobin ABG Oxyhemoglobin ABG Sodium ABG Potassium 5.2 H ABG Chloride ABG Glucose 160 H Carboxyhemoglobin Sodium Potassium Chloride Carbon Dioxide BUN Creatinine Glucose POC Glucose Hemoglobin A1c Lactic Acid Calcium Phosphorus Magnesium Ferritin Total Bilirubin Direct Bilirubin AST ALT Alkaline Phosphatase Ammonia Lactate Dehydrogenase Total Creatine Kinase C-Reactive Protein Total Protein Albumin Hkkyz-6-Qduoinldb Zxikk-3-Ackijzloj Beta Globulins Abnorm Protein Band 1 PEP Interpretation Triglycerides TSH Thyroxine (T4) Free T3 Index Arterial Blood Glucose 160 H Arterial Blood Ionized Calcium 4.1 L Immunofix Electrophor Coronavirus (PCR) Miscellaneous Test Flexitest 1 H 01/30/21 01/30/21 01/30/21 04:05 05:00 05:00 WBC 27.4 H RBC Hgb 11.6 L Hct 34.8 L Plt Count 126 L Lymph % (Auto) Lymph # (Auto) [place] # (Auto) Seg Neutrophils % Seg Neuts % (Manual) Lymphocytes % (Manual) Nucleated RBC % Seg Neutrophils # Seg Neutrophils # Man Lymphocytes # (Manual) Monocytes # (Manual) Eosinophils # (Manual) PT INR D-Dimer Heparin Anti-Xa Level ABG pH 7.288 L POC ABG pCO2 49.7 H POC ABG pO2 169.7 H ABG pO2 ABG Base Excess ABG Hemoglobin ABG Oxyhemoglobin 98.4 H ABG Sodium 132.5 L ABG Potassium 4.8 H ABG Chloride ABG Glucose 196 H Carboxyhemoglobin Sodium 136 L Potassium Chloride 97.4 L Carbon Dioxide BUN 75 H Creatinine 5.4 H Glucose 184 H POC Glucose Hemoglobin A1c Lactic Acid Calcium 7.4 L Phosphorus 8.60 H Magnesium 2.40 H Ferritin Total Bilirubin Direct Bilirubin AST ALT Alkaline Phosphatase Ammonia Lactate Dehydrogenase Total Creatine Kinase C-Reactive Protein Total Protein Albumin Fsodn-8-Txuoqezct Hchar-5-Invyculam Beta Globulins Abnorm Protein Band 1 PEP Interpretation Triglycerides TSH Thyroxine (T4) Free T3 Index Arterial Blood Glucose 196 H Arterial Blood Ionized Calcium 4.0 L Immunofix Electrophor Coronavirus (PCR) Miscellaneous Test 01/30/21 01/30/21 01/30/21 05:32 11:23 15:35 WBC RBC Hgb Hct Plt Count Lymph % (Auto) Lymph # (Auto) [place] # (Auto) Seg Neutrophils % Seg Neuts % (Manual) Lymphocytes % (Manual) Nucleated RBC % Seg Neutrophils # Seg Neutrophils # Man Lymphocytes # (Manual) Monocytes # (Manual) Eosinophils # (Manual) PT INR D-Dimer Heparin Anti-Xa Level ABG pH POC ABG pCO2 POC ABG pO2 ABG pO2 ABG Base Excess ABG Hemoglobin ABG Oxyhemoglobin ABG Sodium ABG Potassium ABG Chloride ABG Glucose Carboxyhemoglobin Sodium Potassium Chloride Carbon Dioxide BUN Creatinine Glucose POC Glucose 169 H 177 H Hemoglobin A1c Lactic Acid Calcium Phosphorus Magnesium Ferritin Total Bilirubin Direct Bilirubin AST ALT Alkaline Phosphatase Ammonia Lactate Dehydrogenase Total Creatine Kinase C-Reactive Protein Total Protein Albumin Bzapm-5-Itvpjhsua Crtkb-8-Roiuspqfz Beta Globulins Abnorm Protein Band 1 PEP Interpretation Triglycerides TSH Thyroxine (T4) 3.3 L Free T3 Index Arterial Blood Glucose Arterial Blood Ionized Calcium Immunofix Electrophor Coronavirus (PCR) Miscellaneous Test 01/30/21 01/30/21 01/30/21 15:35 18:13 23:49 WBC RBC Hgb Hct Plt Count Lymph % (Auto) Lymph # (Auto) [place] # (Auto) Seg Neutrophils % Seg Neuts % (Manual) Lymphocytes % (Manual) Nucleated RBC % Seg Neutrophils # Seg Neutrophils # Man Lymphocytes # (Manual) Monocytes # (Manual) Eosinophils # (Manual) PT INR D-Dimer Heparin Anti-Xa Level ABG pH POC ABG pCO2 POC ABG pO2 ABG pO2 ABG Base Excess ABG Hemoglobin ABG Oxyhemoglobin ABG Sodium ABG Potassium ABG Chloride ABG Glucose Carboxyhemoglobin Sodium Potassium Chloride Carbon Dioxide BUN Creatinine Glucose POC Glucose 123 H 143 H Hemoglobin A1c Lactic Acid Calcium Phosphorus Magnesium Ferritin Total Bilirubin Direct Bilirubin AST ALT Alkaline Phosphatase Ammonia Lactate Dehydrogenase Total Creatine Kinase C-Reactive Protein Total Protein Albumin Zrobd-1-Xjcaabywh Lsoqj-9-Whjxbhsww Beta Globulins Abnorm Protein Band 1 PEP Interpretation Triglycerides TSH Thyroxine (T4) Free T3 Index 1.1 L Arterial Blood Glucose Arterial Blood Ionized Calcium Immunofix Electrophor Coronavirus (PCR) Miscellaneous Test 01/31/21 01/31/21 01/31/21 03:30 03:30 03:30 WBC 31.3 H RBC Hgb 11.4 L Hct 34.6 L Plt Count Lymph % (Auto) Lymph # (Auto) [place] # (Auto) Seg Neutrophils % Seg Neuts % (Manual) Lymphocytes % (Manual) Nucleated RBC % Seg Neutrophils # Seg Neutrophils # Man Lymphocytes # (Manual) Monocytes # (Manual) Eosinophils # (Manual) PT INR D-Dimer Heparin Anti-Xa Level ABG pH POC ABG pCO2 POC ABG pO2 ABG pO2 ABG Base Excess ABG Hemoglobin ABG Oxyhemoglobin ABG Sodium ABG Potassium ABG Chloride ABG Glucose Carboxyhemoglobin Sodium Potassium 5.3 H Chloride Carbon Dioxide BUN 111 H Creatinine 6.8 H Glucose 143 H POC Glucose Hemoglobin A1c Lactic Acid Calcium 7.3 L Phosphorus Magnesium Ferritin Total Bilirubin 1.70 H 1.60 H Direct Bilirubin 1.6 H AST 57 H 57 H ALT Alkaline Phosphatase Ammonia Lactate Dehydrogenase Total Creatine Kinase C-Reactive Protein Total Protein 5.5 L D 5.5 L Albumin 2.5 L 2.5 L Ehauf-1-Usmbnwewn Rxexq-0-Hoeelonpv Beta Globulins Abnorm Protein Band 1 PEP Interpretation Triglycerides TSH Thyroxine (T4) Free T3 Index Arterial Blood Glucose Arterial Blood Ionized Calcium Immunofix Electrophor Coronavirus (PCR) Miscellaneous Test 01/31/21 01/31/21 01/31/21 04:54 12:00 17:19 WBC RBC Hgb Hct Plt Count Lymph % (Auto) Lymph # (Auto) [place] # (Auto) Seg Neutrophils % Seg Neuts % (Manual) Lymphocytes % (Manual) Nucleated RBC % Seg Neutrophils # Seg Neutrophils # Man Lymphocytes # (Manual) Monocytes # (Manual) Eosinophils # (Manual) PT INR D-Dimer Heparin Anti-Xa Level ABG pH POC ABG pCO2 POC ABG pO2 ABG pO2 ABG Base Excess ABG Hemoglobin ABG Oxyhemoglobin ABG Sodium ABG Potassium ABG Chloride ABG Glucose Carboxyhemoglobin Sodium Potassium Chloride Carbon Dioxide BUN Creatinine Glucose POC Glucose 133 H 152 H 142 H Hemoglobin A1c Lactic Acid Calcium Phosphorus Magnesium Ferritin Total Bilirubin Direct Bilirubin AST ALT Alkaline Phosphatase Ammonia Lactate Dehydrogenase Total Creatine Kinase C-Reactive Protein Total Protein Albumin Mdlgf-8-Fkbzirkmm Uejfm-4-Kwabtzlqu Beta Globulins Abnorm Protein Band 1 PEP Interpretation Triglycerides TSH Thyroxine (T4) Free T3 Index Arterial Blood Glucose Arterial Blood Ionized Calcium Immunofix Electrophor Coronavirus (PCR) Miscellaneous Test 01/31/21 02/01/21 02/01/21 23:46 00:25 03:10 WBC RBC Hgb Hct Plt Count Lymph % (Auto) Lymph # (Auto) [place] # (Auto) Seg Neutrophils % Seg Neuts % (Manual) Lymphocytes % (Manual) Nucleated RBC % Seg Neutrophils # Seg Neutrophils # Man Lymphocytes # (Manual) Monocytes # (Manual) Eosinophils # (Manual) PT INR D-Dimer Heparin Anti-Xa Level 0.19 L ABG pH 7.294 L POC ABG pCO2 50.8 H POC ABG pO2 77.2 L ABG pO2 ABG Base Excess ABG Hemoglobin ABG Oxyhemoglobin 92.9 L ABG Sodium 131.4 L ABG Potassium 5.2 H ABG Chloride 97.0 L ABG Glucose 158 H Carboxyhemoglobin Sodium Potassium Chloride Carbon Dioxide BUN Creatinine Glucose POC Glucose 140 H Hemoglobin A1c Lactic Acid Calcium Phosphorus Magnesium Ferritin Total Bilirubin Direct Bilirubin AST ALT Alkaline Phosphatase Ammonia Lactate Dehydrogenase Total Creatine Kinase C-Reactive Protein Total Protein Albumin Jvoel-2-Rverzzqna Wnxus-2-Ltyjnsjwo Beta Globulins Abnorm Protein Band 1 PEP Interpretation Triglycerides TSH Thyroxine (T4) Free T3 Index Arterial Blood Glucose 158 H Arterial Blood Ionized Calcium 3.9 L Immunofix Electrophor Coronavirus (PCR) Miscellaneous Test 02/01/21 02/01/21 02/01/21 04:00 04:00 05:36 WBC RBC Hgb 11.6 L Hct 34.6 L Plt Count Lymph % (Auto) Lymph # (Auto) [place] # (Auto) Seg Neutrophils % Seg Neuts % (Manual) Lymphocytes % (Manual) Nucleated RBC % Seg Neutrophils # Seg Neutrophils # Man Lymphocytes # (Manual) Monocytes # (Manual) Eosinophils # (Manual) PT INR D-Dimer Heparin Anti-Xa Level ABG pH POC ABG pCO2 POC ABG pO2 ABG pO2 ABG Base Excess ABG Hemoglobin ABG Oxyhemoglobin ABG Sodium ABG Potassium ABG Chloride ABG Glucose Carboxyhemoglobin Sodium 136 L Potassium 5.2 H Chloride 93.6 L Carbon Dioxide BUN 78 H Creatinine 5.7 H Glucose 152 H POC Glucose 167 H Hemoglobin A1c Lactic Acid Calcium 7.1 L Phosphorus Magnesium Ferritin Total Bilirubin 3.00 H Direct Bilirubin AST 117 H ALT 108 H Alkaline Phosphatase Ammonia Lactate Dehydrogenase Total Creatine Kinase C-Reactive Protein Total Protein 5.6 L Albumin 2.7 L Uhmww-3-Vnrctuhlf Nsmnx-4-Ghqexrodl Beta Globulins Abnorm Protein Band 1 PEP Interpretation Triglycerides TSH Thyroxine (T4) Free T3 Index Arterial Blood Glucose Arterial Blood Ionized Calcium Immunofix Electrophor Coronavirus (PCR) Miscellaneous Test 02/01/21 02/01/21 02/01/21 09:15 11:42 17:28 WBC RBC Hgb Hct Plt Count Lymph % (Auto) Lymph # (Auto) [place] # (Auto) Seg Neutrophils % Seg Neuts % (Manual) Lymphocytes % (Manual) Nucleated RBC % Seg Neutrophils # Seg Neutrophils # Man Lymphocytes # (Manual) Monocytes # (Manual) Eosinophils # (Manual) PT 15.1 H INR D-Dimer Heparin Anti-Xa Level ABG pH POC ABG pCO2 POC ABG pO2 ABG pO2 ABG Base Excess ABG Hemoglobin ABG Oxyhemoglobin ABG Sodium ABG Potassium ABG Chloride ABG Glucose Carboxyhemoglobin Sodium Potassium Chloride Carbon Dioxide BUN Creatinine Glucose POC Glucose 159 H 171 H Hemoglobin A1c Lactic Acid Calcium Phosphorus Magnesium Ferritin Total Bilirubin Direct Bilirubin AST ALT Alkaline Phosphatase Ammonia Lactate Dehydrogenase Total Creatine Kinase C-Reactive Protein Total Protein Albumin Nejhr-8-Btgacbmkm Yqsig-5-Uafwezkvj Beta Globulins Abnorm Protein Band 1 PEP Interpretation Triglycerides TSH Thyroxine (T4) Free T3 Index Arterial Blood Glucose Arterial Blood Ionized Calcium Immunofix Electrophor Coronavirus (PCR) Miscellaneous Test 02/01/21 02/02/21 02/02/21 23:06 02:58 05:06 WBC RBC Hgb Hct Plt Count Lymph % (Auto) Lymph # (Auto) [place] # (Auto) Seg Neutrophils % Seg Neuts % (Manual) Lymphocytes % (Manual) Nucleated RBC % Seg Neutrophils # Seg Neutrophils # Man Lymphocytes # (Manual) Monocytes # (Manual) Eosinophils # (Manual) PT INR D-Dimer Heparin Anti-Xa Level ABG pH 7.208 L POC ABG pCO2 58.3 H POC ABG pO2 ABG pO2 ABG Base Excess ABG Hemoglobin 11.6 L ABG Oxyhemoglobin ABG Sodium 131.4 L ABG Potassium 5.6 H ABG Chloride 97.0 L ABG Glucose 155 H Carboxyhemoglobin Sodium Potassium Chloride Carbon Dioxide BUN Creatinine Glucose POC Glucose 155 H 134 H Hemoglobin A1c Lactic Acid Calcium Phosphorus Magnesium Ferritin Total Bilirubin Direct Bilirubin AST ALT Alkaline Phosphatase Ammonia Lactate Dehydrogenase Total Creatine Kinase C-Reactive Protein Total Protein Albumin Wrhkq-3-Mbpydaynn Uecrf-4-Jymentldx Beta Globulins Abnorm Protein Band 1 PEP Interpretation Triglycerides TSH Thyroxine (T4) Free T3 Index Arterial Blood Glucose 155 H Arterial Blood Ionized Calcium 3.9 L Immunofix Electrophor Coronavirus (PCR) Miscellaneous Test 02/02/21 02/02/21 02/02/21 11:10 16:22 17:52 WBC RBC Hgb Hct Plt Count Lymph % (Auto) Lymph # (Auto) [place] # (Auto) Seg Neutrophils % Seg Neuts % (Manual) Lymphocytes % (Manual) Nucleated RBC % Seg Neutrophils # Seg Neutrophils # Man Lymphocytes # (Manual) Monocytes # (Manual) Eosinophils # (Manual) PT INR D-Dimer Heparin Anti-Xa Level 0.10 L ABG pH POC ABG pCO2 POC ABG pO2 ABG pO2 ABG Base Excess ABG Hemoglobin ABG Oxyhemoglobin ABG Sodium ABG Potassium ABG Chloride ABG Glucose Carboxyhemoglobin Sodium Potassium Chloride Carbon Dioxide BUN Creatinine Glucose POC Glucose 179 H 170 H Hemoglobin A1c Lactic Acid Calcium Phosphorus Magnesium Ferritin Total Bilirubin Direct Bilirubin AST ALT Alkaline Phosphatase Ammonia Lactate Dehydrogenase Total Creatine Kinase C-Reactive Protein Total Protein Albumin Ujlsy-9-Tzuiyfhzd [place]-9-Aiuawwjrd Beta Globulins Abnorm Protein Band 1 PEP Interpretation Triglycerides TSH Thyroxine (T4) Free T3 Index Arterial Blood Glucose Arterial Blood Ionized Calcium Immunofix Electrophor Coronavirus (PCR) Miscellaneous Test 02/02/21 02/02/21 02/02/21 23:22 23:23 Unknown WBC RBC Hgb Hct Plt Count Lymph % (Auto) Lymph # (Auto) [place] # (Auto) Seg Neutrophils % Seg Neuts % (Manual) Lymphocytes % (Manual) Nucleated RBC % Seg Neutrophils # Seg Neutrophils # Man Lymphocytes # (Manual) Monocytes # (Manual) Eosinophils # (Manual) PT INR D-Dimer Heparin Anti-Xa Level 0.20 L ABG pH POC ABG pCO2 POC ABG pO2 ABG pO2 ABG Base Excess ABG Hemoglobin ABG Oxyhemoglobin ABG Sodium ABG Potassium ABG Chloride ABG Glucose Carboxyhemoglobin Sodium Potassium 5.9 H Chloride 95.0 L Carbon Dioxide BUN 118 H Creatinine 7.2 H Glucose 152 H POC Glucose 139 H Hemoglobin A1c Lactic Acid Calcium 7.1 L Phosphorus Magnesium Ferritin Total Bilirubin 2.90 H Direct Bilirubin AST 134 H ALT 169 H Alkaline Phosphatase Ammonia Lactate Dehydrogenase Total Creatine Kinase C-Reactive Protein Total Protein 5.0 L Albumin 2.5 L Oaxrx-3-Jscuweajv Ologk-0-Pvxnvybdx Beta Globulins Abnorm Protein Band 1 PEP Interpretation Triglycerides TSH Thyroxine (T4) Free T3 Index Arterial Blood Glucose Arterial Blood Ionized Calcium Immunofix Electrophor Coronavirus (PCR) Miscellaneous Test 02/02/21 02/02/21 02/02/21 Unknown Unknown Unknown WBC 39.4 H RBC Hgb 10.7 L Hct 32.3 L Plt Count Lymph % (Auto) Lymph # (Auto) [place] # (Auto) Seg Neutrophils % Seg Neuts % (Manual) Lymphocytes % (Manual) Nucleated RBC % Seg Neutrophils # Seg Neutrophils # Man Lymphocytes # (Manual) Monocytes # (Manual) Eosinophils # (Manual) PT 15.1 H INR D-Dimer Heparin Anti-Xa Level ABG pH POC ABG pCO2 POC ABG pO2 ABG pO2 ABG Base Excess ABG Hemoglobin ABG Oxyhemoglobin ABG Sodium ABG Potassium ABG Chloride ABG Glucose Carboxyhemoglobin Sodium Potassium Chloride Carbon Dioxide BUN Creatinine Glucose POC Glucose Hemoglobin A1c Lactic Acid Calcium Phosphorus Magnesium Ferritin Total Bilirubin Direct Bilirubin AST ALT Alkaline Phosphatase Ammonia 83.0 H Lactate Dehydrogenase Total Creatine Kinase C-Reactive Protein Total Protein Albumin Csujx-8-Vqarmcyry Klibm-4-Eizcsxvpp Beta Globulins Abnorm Protein Band 1 PEP Interpretation Triglycerides TSH Thyroxine (T4) Free T3 Index Arterial Blood Glucose Arterial Blood Ionized Calcium Immunofix Electrophor Coronavirus (PCR) Miscellaneous Test 02/02/21 02/03/21 02/03/21 Unknown 04:47 05:25 WBC 60.2 H* 55.8 H* RBC Hgb 11.0 L 10.3 L Hct 33.7 L 32.4 L Plt Count Lymph % (Auto) Lymph # (Auto) [place] # (Auto) Seg Neutrophils % Seg Neuts % (Manual) 94.0 H Lymphocytes % (Manual) 3.0 L Nucleated RBC % Seg Neutrophils # Seg Neutrophils # Man 56.6 H Lymphocytes # (Manual) Monocytes # (Manual) 1.2 H Eosinophils # (Manual) 0.6 H PT INR D-Dimer Heparin Anti-Xa Level ABG pH POC ABG pCO2 POC ABG pO2 ABG pO2 ABG Base Excess ABG Hemoglobin ABG Oxyhemoglobin ABG Sodium ABG Potassium ABG Chloride ABG Glucose Carboxyhemoglobin Sodium Potassium Chloride Carbon Dioxide BUN Creatinine Glucose POC Glucose 158 H Hemoglobin A1c Lactic Acid Calcium Phosphorus Magnesium Ferritin Total Bilirubin Direct Bilirubin AST ALT Alkaline Phosphatase Ammonia Lactate Dehydrogenase Total Creatine Kinase C-Reactive Protein Total Protein Albumin Xesiy-3-Kruvesaeq Vjlpa-4-Owbznutik Beta Globulins Abnorm Protein Band 1 PEP Interpretation Triglycerides TSH Thyroxine (T4) Free T3 Index Arterial Blood Glucose Arterial Blood Ionized Calcium Immunofix Electrophor Coronavirus (PCR) Miscellaneous Test 02/03/21 02/03/21 02/03/21 05:25 05:25 05:25 WBC RBC Hgb Hct Plt Count Lymph % (Auto) Lymph # (Auto) [place] # (Auto) Seg Neutrophils % Seg Neuts % (Manual) Lymphocytes % (Manual) Nucleated RBC % Seg Neutrophils # Seg Neutrophils # Man Lymphocytes # (Manual) Monocytes # (Manual) Eosinophils # (Manual) PT INR D-Dimer 4328.24 H Heparin Anti-Xa Level ABG pH POC ABG pCO2 POC ABG pO2 ABG pO2 ABG Base Excess ABG Hemoglobin ABG Oxyhemoglobin ABG Sodium ABG Potassium ABG Chloride ABG Glucose Carboxyhemoglobin Sodium Potassium 5.4 H 5.6 H Chloride 97.3 L Carbon Dioxide 21 L BUN 86 H 86 H Creatinine 5.8 H 5.6 H Glucose 154 H 152 H POC Glucose Hemoglobin A1c Lactic Acid Calcium 7.8 L 7.9 L Phosphorus 8.50 H Magnesium 2.50 H Ferritin Total Bilirubin 2.30 H Direct Bilirubin AST 103 H ALT 200 H Alkaline Phosphatase 135 H Ammonia Lactate Dehydrogenase 1310 H Total Creatine Kinase C-Reactive Protein 2.50 H Total Protein 5.2 L Albumin 2.2 L Nndrh-5-Mctikylpe Bniqp-7-Cgxneaytl Beta Globulins Abnorm Protein Band 1 PEP Interpretation Triglycerides TSH Thyroxine (T4) Free T3 Index Arterial Blood Glucose Arterial Blood Ionized Calcium Immunofix Electrophor Coronavirus (PCR) Miscellaneous Test 02/03/21 02/03/21 02/03/21 05:25 07:35 11:35 WBC RBC Hgb Hct Plt Count Lymph % (Auto) Lymph # (Auto) [place] # (Auto) Seg Neutrophils % Seg Neuts % (Manual) Lymphocytes % (Manual) Nucleated RBC % Seg Neutrophils # Seg Neutrophils # Man Lymphocytes # (Manual) Monocytes # (Manual) Eosinophils # (Manual) PT INR D-Dimer Heparin Anti-Xa Level < 0.10 L ABG pH POC ABG pCO2 POC ABG pO2 ABG pO2 ABG Base Excess ABG Hemoglobin ABG Oxyhemoglobin ABG Sodium ABG Potassium ABG Chloride ABG Glucose Carboxyhemoglobin Sodium Potassium Chloride Carbon Dioxide BUN Creatinine Glucose POC Glucose 146 H Hemoglobin A1c Lactic Acid Calcium Phosphorus Magnesium Ferritin 2914.0 H Total Bilirubin Direct Bilirubin AST ALT Alkaline Phosphatase Ammonia Lactate Dehydrogenase Total Creatine Kinase C-Reactive Protein Total Protein Albumin Qvbop-9-Rvpmdrexz Isvzf-7-Peksccmwb Beta Globulins Abnorm Protein Band 1 PEP Interpretation Triglycerides TSH Thyroxine (T4) Free T3 Index Arterial Blood Glucose Arterial Blood Ionized Calcium Immunofix Electrophor Coronavirus (PCR) Miscellaneous Test 02/03/21 02/03/21 02/04/21 17:45 23:41 04:00 WBC RBC Hgb Hct Plt Count Lymph % (Auto) Lymph # (Auto) [place] # (Auto) Seg Neutrophils % Seg Neuts % (Manual) Lymphocytes % (Manual) Nucleated RBC % Seg Neutrophils # Seg Neutrophils # Man Lymphocytes # (Manual) Monocytes # (Manual) Eosinophils # (Manual) PT INR D-Dimer Heparin Anti-Xa Level ABG pH POC ABG pCO2 POC ABG pO2 69.2 L ABG pO2 ABG Base Excess ABG Hemoglobin 9.4 L ABG Oxyhemoglobin 91.5 L ABG Sodium 127.7 L ABG Potassium 4.9 H ABG Chloride ABG Glucose 172 H Carboxyhemoglobin Sodium Potassium Chloride Carbon Dioxide BUN Creatinine Glucose POC Glucose 138 H 150 H Hemoglobin A1c Lactic Acid Calcium Phosphorus Magnesium Ferritin Total Bilirubin Direct Bilirubin AST ALT Alkaline Phosphatase Ammonia Lactate Dehydrogenase Total Creatine Kinase C-Reactive Protein Total Protein Albumin Cdytq-7-Egcobzhwk Ayiar-7-Cebtkyahn Beta Globulins Abnorm Protein Band 1 PEP Interpretation Triglycerides TSH Thyroxine (T4) Free T3 Index Arterial Blood Glucose 172 H Arterial Blood Ionized Calcium 4.0 L Immunofix Electrophor Coronavirus (PCR) Miscellaneous Test 02/04/21 02/04/21 02/04/21 05:00 05:18 06:40 WBC 59.8 H* RBC 2.95 L Hgb 8.5 L Hct 26.2 L D Plt Count Lymph % (Auto) Lymph # (Auto) [place] # (Auto) Seg Neutrophils % Seg Neuts % (Manual) Lymphocytes % (Manual) Nucleated RBC % Seg Neutrophils # Seg Neutrophils # Man Lymphocytes # (Manual) Monocytes # (Manual) Eosinophils # (Manual) PT INR D-Dimer Heparin Anti-Xa Level ABG pH POC ABG pCO2 POC ABG pO2 ABG pO2 ABG Base Excess ABG Hemoglobin ABG Oxyhemoglobin ABG Sodium ABG Potassium ABG Chloride ABG Glucose Carboxyhemoglobin Sodium 133 L Potassium Chloride 93.8 L Carbon Dioxide BUN 77 H Creatinine 5.3 H Glucose 168 H POC Glucose 163 H Hemoglobin A1c Lactic Acid Calcium 7.3 L Phosphorus Magnesium Ferritin Total Bilirubin 1.40 H Direct Bilirubin AST 110 H ALT 171 H Alkaline Phosphatase 196 H Ammonia Lactate Dehydrogenase Total Creatine Kinase C-Reactive Protein Total Protein 4.7 L Albumin 2.2 L Huzef-9-Myqshmbgm Ihjbb-8-Kjpsehbcw Beta Globulins Abnorm Protein Band 1 PEP Interpretation Triglycerides TSH Thyroxine (T4) Free T3 Index Arterial Blood Glucose Arterial Blood Ionized Calcium Immunofix Electrophor Coronavirus (PCR) Miscellaneous Test 02/04/21 12:15 WBC RBC Hgb Hct Plt Count Lymph % (Auto) Lymph # (Auto) [place] # (Auto) Seg Neutrophils % Seg Neuts % (Manual) Lymphocytes % (Manual) Nucleated RBC % Seg Neutrophils # Seg Neutrophils # Man Lymphocytes # (Manual) Monocytes # (Manual) Eosinophils # (Manual) PT INR D-Dimer Heparin Anti-Xa Level ABG pH POC ABG pCO2 POC ABG pO2 ABG pO2 ABG Base Excess ABG Hemoglobin ABG Oxyhemoglobin ABG Sodium ABG Potassium ABG Chloride ABG Glucose Carboxyhemoglobin Sodium Potassium Chloride Carbon Dioxide BUN Creatinine Glucose POC Glucose 135 H Hemoglobin A1c Lactic Acid Calcium Phosphorus Magnesium Ferritin Total Bilirubin Direct Bilirubin AST ALT Alkaline Phosphatase Ammonia Lactate Dehydrogenase Total Creatine Kinase C-Reactive Protein Total Protein Albumin Aaldh-4-Xkpqdypwz Kwduc-3-Pehgnuedh Beta Globulins Abnorm Protein Band 1 PEP Interpretation Triglycerides TSH Thyroxine (T4) Free T3 Index Arterial Blood Glucose Arterial Blood Ionized Calcium Immunofix Electrophor Coronavirus (PCR) Miscellaneous Test Chest x-ray: image reviewed (improved left PTX from yesterday) Allied health notes reviewed: nursing
--- NOTE | 2021-02-04 16:54 | Progress Note ---
<CHAVEZANGIE OmarNat - Last Filed: 02/04/21 16:59> Assessment and Plan Assessment and plan: This is a 55-year-old male with morbid obesity, former nicotine abuse and venous insufficiency who was admitted as a COVID-19 PUI with acute hypoxic respiratory failure, sepsis, multifocal pneumonia Neuro: Acute metabolic encephalopathy, hepatic encephalopathy -NH3 noted at 83->lactulose ordered->repeat NH3 pending -EEG completed and read pending -Avoid delirium -Patient is slowly responsive Cardio: A. fib with RVR -Cardiology consulted, appreciate recommendations -Transitioned from IV amiodarone to p.o. amiodarone -Echocardiogram completed ee results -Blood pressure monitor per protocol -Wean vasopressor support for MAP goal greater than 65 Respiratory: Acute hypoxic respiratory failure, Bilateral pneumothorax -Intubated -CCM consulted, patient recommendations -AM vent settings: AC/PRVC TV 500, Rate 30, PEEP 14, 100% FiO2 -ABG and CXR reviewed -Dr. Yee aware of persistent R pneumothorax -Surgery consulted for chest tube -All chest tubes to wall suction -Serial ABG and CXR -VAP bundle -Continuous SPO2 monitoring GI: MO, malnutrition, transaminitis -pt is on trickle feeds -Reglan 10 mg every 8 -BR: Senokot -01/30 KUB reviewed -Renal ultrasound reviewed-> shows only hepatic steatosis -02/01 lipase 46 -Trend LFTs : Acute kidney injury secondary to vasomotor nephropathy, hyperkalemia -Nephrology consulted, appreciate recommendations -Patient initiated on hemodialysis 01/27 -HD per nephrology -Strict intake and output -arana in place -Avoid nephrotoxic medications-renally dose medications -trend BMP -Past 24 hours +[id number] Endo: NAD -SSI -Accu-Cheks every 6 -Avoid hypoglycemia ID: COVID-19 pneumonia, septic shock, bilateral pneumonia,? Mold in sputum, Leukocytosis -Infectious disease consulted, appreciate recommendations (signed off 01/31) -Contact/droplet isolation -Dexamethasone for 10 days -Actemra administered 01/26 -P.o. voriconazole given steroids and Actemra -Per infectious disease: Avoid ABLC given renal failure -Follow-up ID labs -Trend COVID-19 inflammatory markers -S/p ABX therapy for pneumonia -Monitor WBC and fever curve -Follow blood cultures- NGTD -Started on flagyl today for persistent leukocytosis Heme: Elevated D-dimer, leukocytosis -Anticoagulation with heparin drip -Trend CBC -Transfuse for hemoglobin less than 7 -Lower extremity Doppler ultrasound shows no evidence of DVT The high probability of a clinically significant, sudden or life threatening deterioration of the [multi] system(s) required my full and direct attention, intervention and personal management. The aggregate critical care time was [60] minutes. This time is in addition to time spent performing reported procedures but includes the following: [x] Data Review and interpretation [x] Patient assessment and monitoring of vital signs [x] Documentation [x] Medication orders and management Disposition Plan: 60 Total Time Spent with Patient (Minutes): icu History Interval history: This is a 55-year-old male with morbid obesity venous insufficiency, former smoker who presented to the emergency department on 01/22 for SOB x4 days prior to admission and patient was diagnosed with COVID-19 at OSH on 01/16 after the patient was discharged. Patient had worsening symptoms therefore he presented to [facility]. Patient had fever, chills, headache, cough, shortness of breath, body aches, loss of taste and smell. Upon arrival of EMS patient was saturating at 60% on room air and received albuterol, magnesium, Solu-Medrol. Patient remained hypoxic in spite of being on a nonrebreather and was started on a BiPAP in the emergency department. Patient was admitted to the hospitalist service with consults to ID, pulmonology and later nephrology and cardiology. Patient admitted for acute hypoxic respiratory failure, sepsis, multifocal pneumonia, PUI for COVID-19. 02/04: Patient remains on high vent settings, family to visit tomorrow afternooon. 02/03: HD MWF, left sided chest tube placed today at bedside by [facility]. Leukocytosis noted and will monitor. Witness consent for chest tube from who wants "everything done to save his life" 02/02: vent changes made by [facility], no acute events reported overnight. A.m. CXR read as improvement to pneumothorax. No acute events reported overnight. pt has hyperkalemia today but scheduled for hd today 02/01: patient was started on trickle feeding yesterday, heparin was on hold for placement of chest tube by surgery. Today patient developed pneumothorax and chest tube was placed again by surgery at bedside. Patient tube feedings will be gradually increased to goal as tolerated. 01/31: Patient has subq air on exam, cxr shows possible apical pneumo and surgery consulted for possible chest tube placement. HD today 01/30: This morning patient is not on sedation and does not follow commands, per RN report patient does not have cough/gag. No acute events reported overnight. EEG ordered, KUB and NGT to LIS for high residuals. NH3 high-lactulose started 01/29: Patient is in acute respiratory failure on continuous BiPAP With low saturations intermittently Patient has severe Covid pneumonia, elevated D-dimers on empiric full dose anticoagulation Not a candidate for CTA chest as patient is unstable Patient is critically ill in severe distress Patient has low saturations even on continuous BiPAP May need intubation and mechanical ventilation Vital signs noted 01/28/2021 Patient intubated Sedated Same condition On pressors Poor prognosis 01/27/2021 Patient intubated Sedated On vent protocol 01/26/2021 Patient is intubated Patient is Covid positive 01/25/2021; patient for intubation and mechanical ventilation As patient is severely hypoxemic even on continuous BiPAP 01/24: Patient is severely hypoxemic requiring continuous BiPAP, with borderline O2 sats Pulmonary critical following, stat ABG If no improvement intubate as needed Patient is elevated D-dimers, in the setting of COVID-19 morbid obesity res piratory failure requiring continuous BiPAP We will treat empirically with full dose anticoagulation, check CTA chest and lower extremity venous Doppler to rule out PE and DVT. Patient is critically ill with poor prognosis Plan of care reviewed with the patient and his nurse 01/23: We will closely monitor the patient and adjust management as needed Follow khan PCR test, consult ID if needed Hospitalist Physical - Constitutional Vitals: Temp Pulse Resp BP Pulse Ox 98.9 F 91 H 30 H 94/40 91 02/04/21 12:00 02/04/21 16:15 02/04/21 16:15 02/04/21 16:15 02/04/21 16:15 General appearance: Present: no acute distress, well-nourished, other (not responsive) - EENT Eyes: Present: PERRL ENT: dentition normal - Neck Neck: Absent: masses or JVD, cervical LAD - Respiratory Respiratory effort: normal Respiratory: bilateral: diminished, other (subq air) - Cardiovascular Rhythm: regular - Extremities Extremities: no ischemia, pulses intact, pulses symmetrical, normal temperature, normal color Peripheral Pulses: within normal limits - Abdominal General gastrointestinal: soft - Integumentary Integumentary: Present: dry - Psychiatric Psychiatric: other (not agitated) - Neurologic Neurologic: other (weak cough/gag) - Allied Health Allied health notes reviewed: nursing, RT, social work HEART Score - HEART Score Age: 45-65 Risk factors: 1-2 risk factors Troponin: < normal limit - Critical Actions Critical Actions: 0-3 pts:0.9-1.7%risk of adverse cardiac event.Candidate for discharge Results - Labs CBC & Chem 7: 02/04/21 06:40 02/04/21 05:00 Labs: Laboratory Last Values WBC 59.8 K/mm3 (4.5-11.0) H* 02/04/21 06:40 RBC 2.95 M/mm3 (3.65-5.03) L 02/04/21 06:40 Hgb 8.5 gm/dl (11.8-15.2) L 02/04/21 06:40 Hct 26.2 % (35.5-45.6) L D 02/04/21 06:40 MCV 89 fl (84-94) 02/04/21 06:40 MCH 29 pg (28-32) 02/04/21 06:40 MCHC 32 % (32-34) 02/04/21 06:40 RDW 14.8 % (13.2-15.2) 02/04/21 06:40 Plt Count 152 K/mm3 (140-440) 02/04/21 06:40 Lymph % (Auto) 4.4 % (13.4-35.0) L 01/23/21 05:29 [place] % (Auto) 6.4 % (0.0-7.3) 01/23/21 05:29 Lymph # (Auto) 0.8 K/mm3 (1.2-5.4) L 01/23/21 05:29 [place] # (Auto) 1.2 K/mm3 (0.0-0.8) H 01/23/21 05:29 Add Manual Diff Complete 02/02/21 Unknown Total Counted 100 02/02/21 Unknown Seg Neutrophils % Instrument Repair Technician 02/02/21 Unknown Seg Neuts % (Manual) 94.0 % (40.0-70.0) H 02/02/21 Unknown Band Neutrophils % 2.0 % 01/22/21 11:06 Lymphocytes % (Manual) 3.0 % (13.4-35.0) L 02/02/21 Unknown Monocytes % (Manual) 2.0 % (0.0-7.3) 02/02/21 Unknown Eosinophils % (Manual) 1.0 % (0.0-4.3) 02/02/21 Unknown Nucleated RBC % Not Reportable 02/02/21 Unknown Seg Neutrophils # 16.9 K/mm3 (1.8-7.7) H 01/23/21 05:29 Seg Neutrophils # Man 56.6 K/mm3 (1.8-7.7) H 02/02/21 Unknown Band Neutrophils # 0.0 K/mm3 02/02/21 Unknown Lymphocytes # (Manual) 1.8 K/mm3 (1.2-5.4) 02/02/21 Unknown Abs React Lymphs (Man) 0.0 K/mm3 02/02/21 Unknown Monocytes # (Manual) 1.2 K/mm3 (0.0-0.8) H 02/02/21 Unknown Eosinophils # (Manual) 0.6 K/mm3 (0.0-0.4) H 02/02/21 Unknown Basophils # (Manual) 0.0 K/mm3 (0.0-0.1) 02/02/21 Unknown Metamyelocytes # 0.0 K/mm3 02/02/21 Unknown Myelocytes # 0.0 K/mm3 02/02/21 Unknown Promyelocytes # 0.0 K/mm3 02/02/21 Unknown Blast Cells # 0.0 K/mm3 02/02/21 Unknown WBC Morphology Not Reportable 02/02/21 Unknown Hypersegmented Neuts Not Reportable 02/02/21 Unknown Hyposegmented Neuts Not Reportable 02/02/21 Unknown Hypogranular Neuts Not Reportable 02/02/21 Unknown Smudge Cells Not Reportable 02/02/21 Unknown Toxic Granulation Not Reportable 02/02/21 Unknown Toxic Vacuolation Not Reportable 02/02/21 Unknown Dohle Bodies Not Reportable 02/02/21 Unknown Pelger-Huet Anomaly Not Reportable 02/02/[address] Not Reportable 02/02/21 Unknown Platelet Estimate Not Reportable 02/02/21 Unknown Clumped Platelets Not Reportable 02/02/21 Unknown Plt Clumps, EDTA Not Reportable 02/02/21 Unknown Large Platelets Not Reportable 02/02/21 Unknown Giant Platelets Not Reportable 02/02/21 Unknown Platelet Satelliting Not Reportable 02/02/21 Unknown Plt Morphology Comment Not Reportable 02/02/21 Unknown RBC Morphology Normal 02/02/21 Unknown Dimorphic RBCs Not Reportable 02/02/21 Unknown Polychromasia Not Reportable 02/02/21 Unknown Hypochromasia Not Reportable 02/02/21 Unknown Poikilocytosis Not Reportable 02/02/21 Unknown Anisocytosis Not Reportable 02/02/21 Unknown Microcytosis Not Reportable 02/02/21 Unknown Macrocytosis Not Reportable 02/02/21 Unknown Spherocytes Not Reportable 02/02/21 Unknown Pappenheimer Bodies Not Reportable 02/02/21 Unknown Sickle Cells Not Reportable 02/02/21 Unknown Target Cells Not Reportable 02/02/21 Unknown Tear Drop Cells Not Reportable 02/02/21 Unknown Ovalocytes Not Reportable 02/02/21 Unknown Helmet Cells Not Reportable 02/02/21 Unknown Soliman-Amorita Bodies Not Reportable 02/02/21 Unknown [place] Rings Not Reportable 02/02/21 Unknown Bessie Cells Not Reportable 02/02/21 Unknown Bite Cells Not Reportable 02/02/21 Unknown Crenated Cell Not Reportable 02/02/21 Unknown Elliptocytes Not Reportable 02/02/21 Unknown Acanthocytes (Spur) Not Reportable 02/02/21 Unknown Rouleaux Not Reportable 02/02/21 Unknown Hemoglobin C Crystals Not Reportable 02/02/21 Unknown Schistocytes Not Reportable 02/02/21 Unknown Malaria parasites Not Reportable 02/02/21 Unknown Lloyd Bodies Not Reportable 02/02/21 Unknown Hem Pathologist Commnt No 02/02/21 Unknown PT 15.1 Sec. (12.2-14.9) H 02/02/21 Unknown INR 1.13 (0.87-1.13) 02/02/21 Unknown APTT 29.2 Sec. (24.2-36.6) 01/28/21 10:03 D-Dimer 4328.24 ng/mlDDU (0-234) H 02/03/21 05:25 Heparin Anti-Xa Level 0.40 U.I./ml (0.3-0.7) 02/04/21 12:20 ABG pH 7.329 (7.320-7.450) 02/04/21 04:00 POC ABG pCO2 47.3 mmHg (32.0-48.0) 02/04/21 04:00 ABG pCO2 46.6 mm Hg 01/26/21 08:30 POC ABG pO2 69.2 mmHg (83-108) L 02/04/21 04:00 ABG pO2 124.5 mm Hg (80.0-90.0) H 01/26/21 08:30 POC ABG HCO3 24.3 02/04/21 04:00 ABG HCO3 21.7 mmol/L (20.0-26.0) 01/26/21 08:30 ABG O2 Saturation 92.7 (0-100) 02/04/21 04:00 ABG O2 Content 19.4 (0.0-44) 01/26/21 08:30 POC ABG Base Excess -1.7 02/04/21 04:00 ABG Base Excess -5.0 mmol/L (-2.0-3.0) L 01/26/21 08:30 ABG Hemoglobin 9.4 (12.0-17.5) L 02/04/21 04:00 ABG Oxyhemoglobin 91.5 (94-98) L 02/04/21 04:00 ABG Carboxyhemoglobin 1.2 % (0.0-5.0) 01/26/21 08:30 ABG Methemoglobin 0.3 (0.0-1.5) 02/04/21 04:00 ABG Sodium 127.7 mmol/L (136.0-145.0) L 02/04/21 04:00 ABG Potassium 4.9 mmol/L (3.40-4.50) H 02/04/21 04:00 ABG Chloride 98.0 mmol/L (98-107) 02/04/21 04:00 ABG Glucose 172 mg/dL (65-95) H 02/04/21 04:00 Oxyhemoglobin 96.2 % (95.0-99.0) 01/26/21 08:30 Carboxyhemoglobin 1.0 (0.5-1.5) 02/04/21 04:00 FiO2 100 % 01/26/21 08:30 FiO2 % 100.0 02/04/21 04:00 Sodium 133 mmol/L (137-145) L 02/04/21 05:00 Potassium 5.0 mmol/L (3.6-5.0) 02/04/21 05:00 Chloride 93.8 mmol/L (98-107) L 02/04/21 05:00 Carbon Dioxide 25 mmol/L (22-30) 02/04/21 05:00 Anion Gap 19 mmol/L 02/04/21 05:00 BUN 77 mg/dL (9-20) H 02/04/21 05:00 Creatinine 5.3 mg/dL (0.8-1.3) H 02/04/21 05:00 Estimated GFR 11 ml/min 02/04/21 05:00 BUN/Creatinine Ratio 15 % 02/04/21 05:00 Glucose 168 mg/dL (75-100) H 02/04/21 05:00 POC Glucose 135 mg/dL (70-105) H 02/04/21 12:15 Hemoglobin A1c 6.2 % (4-6) H 01/22/21 11:06 Lactic Acid 4.20 mmol/L (0.7-2.0) H* 01/22/21 11:06 Calcium 7.3 mg/dL (8.4-10.2) L 02/04/21 05:00 Phosphorus 8.50 mg/dL (2.5-4.5) H 02/03/21 05:25 Magnesium 2.50 mg/dL (1.7-2.3) H 02/03/21 05:25 Ferritin 2914.0 ng/mL (30.0-300.0) H 02/03/21 05:25 Total Bilirubin 1.40 mg/dL (0.1-1.2) H 02/04/21 05:00 Direct Bilirubin 1.6 mg/dL (0-0.2) H 01/31/21 03:30 Indirect Bilirubin 0.0 mg/dL 01/31/21 03:30 AST 110 units/L (5-40) H 02/04/21 05:00 ALT 171 units/L (7-56) H 02/04/21 05:00 Alkaline Phosphatase 196 units/L (35-129) H 02/04/21 05:00 Ammonia 83.0 umol/L (25-60) H 02/02/21 Unknown Lactate Dehydrogenase 1310 units/L (91-180) H 02/03/21 05:25 Total Creatine Kinase 258 units/L (55-170) H 01/27/21 05:00 C-Reactive Protein 2.50 mg/dL (0.00-1.30) H 02/03/21 05:25 Serum Total Protein 7.2 g/dL (6.1-8.1) 01/27/21 11:55 Total Protein 4.7 g/dL (6.3-8.2) L 02/04/21 05:00 Albumin 2.2 g/dL (3.9-5) L 02/04/21 05:00 Albumin/Globulin Ratio 0.9 % 02/04/21 05:00 Oqaze-0-Rvdfrdzdb 0.7 g/dL (0.2-0.3) H 01/27/21 11:55 Icjpz-3-Ewhlszszl 1.2 g/dL (0.5-0.9) H 01/27/21 11:55 Beta Globulins 0.7 g/dL (0.2-0.5) H 01/27/21 11:55 Gamma Globulins 1.6 g/dL (0.8-1.7) 01/27/21 11:55 Abnorm Protein Band 1 0.5 g/dL H 01/27/21 11:55 PEP Interpretation see below H 01/27/21 11:55 Triglycerides 369 mg/dL (2-149) H 01/28/21 04:00 Lipase 46 units/L (13-60) 02/01/21 04:00 Procalcitonin 2.11 ng/mL (<0.15) 01/25/21 06:22 TSH 0.013 mlU/mL (0.270-4.200) L 01/28/21 10:03 Thyroxine (T4) 3.3 ug/dL (4.0-12.0) L 01/30/21 15:35 Free T3 Index 1.1 pg/mL (2.3-4.2) L 01/30/21 15:35 Arterial Blood Glucose 172 mg/dL (65-95) H 02/04/21 04:00 Arterial Blood Ionized Calcium 4.0 mg/dL (4.6-5.3) L 02/04/21 04:00 Immunofix Electrophor see below H 01/27/21 11:55 ANURAG Screen Negative (Negative) 01/27/21 11:55 Proteinase 3 (PR3) Ab <1.0 AI (<1.0) 01/27/21 11:55 Myeloperoxidase Ab <1.0 AI (<1.0) 01/27/21 11:55 Complement C3 105 mg/dL (82-185) 01/27/21 11:55 Complement C4 17 mg/dL (15-53) 01/27/21 11:55 Coronavirus (PCR) Positive (Negative) A 01/23/21 09:00 Hepatitis A IgM Ab Non-reactive (NonReactive) 01/27/21 11:41 Hep Bs Antigen Nonreactive (Negative) 01/27/21 11:41 Hep B Core IgM Ab Non-reactive (NonReactive) 01/27/21 11:41 Hepatitis C Antibody Non-reactive (NonReactive) 01/27/21 11:41 Miscellaneous Test Flexitest 1 H 01/29/21 Unknown Microbiology: Microbiology 02/03/21 08:44 Peripheral/Venous Blood Culture - Preliminary NO GROWTH AFTER 24 HOURS 02/03/21 08:44 Peripheral/Venous Blood Culture - Preliminary NO GROWTH AFTER 24 HOURS 02/02/21 14:25 Tracheal Aspirate Sputum Culture - Preliminary 02/03/21 10:12 Urine,Catheterized - Indwelling Catheter Urine Culture - Preliminary NO GROWTH AFTER 24 HOURS Arana/IV: Voiding Method Incontinent Active Medications - Current Medications Current Medications: Generic Name Dose Route Start Last Admin Trade Name Freq PRN Reason Stop Dose Admin Albumin Human 25 gm 01/27/21 09:35 Albumin Human 25% (25 Gm/100 Ml) Inj IV MELECIO PRN Hypotension Amiodarone HCl 200 mg 01/30/21 10:00 02/04/21 12:20 Amiodarone 200 Mg Tab PO 200 mg DAILY JACK Administration Lipase/Protease/Amylase 1 each 01/27/21 11:37 Lipase 10,500/Protease 25,000/Amylase 43,750 (Units) Dr Singer FEEDTUBE PRN PRN For Clogged Feeding Tube Ascorbic Acid 500 mg 02/02/21 11:00 02/04/21 12:21 Ascorbic Acid 500 Mg Tab PO 500 mg BID JACK Administration Cholecalciferol 5,000 unit 02/02/21 11:00 02/04/21 12:19 Cholecalciferol (Vit D3) 5,000 Unit Tab PO 5,000 unit DAILY JACK Administration Dextrose 50 ml 01/29/21 12:24 Dextrose 50% In Water (25gm) 50 Ml Syringe IV Q30MIN PRN Hypoglycemia Protocol Famotidine 20 mg 01/27/21 10:00 02/04/21 12:20 Famotidine 20 Mg/2 Ml Inj IV 20 mg DAILY JACK Administration Fentanyl 50 mcg 01/25/21 11:32 01/28/21 06:10 Fentanyl 100 Mcg/2 Ml Inj IV 50 mcg Q10MIN PRN Administration ANALGESIA Fentanyl 50 mcg 02/03/21 15:20 Fentanyl 100 Mcg/2 Ml Inj IV Q10MIN PRN ANALGESIA Heparin Sodium (Porcine) 5,000 unit 01/28/21 09:27 Heparin 10,000 Units/10 Ml Vial IV Q6H PRN Anti-Xa Assay < 0.1 units/ml Hydrophilic Ointment 1 applic 01/25/21 13:27 Lip Therapy Vaseline TP Q2HR PRN Dry Lips Norepinephrine 4 mg in 250 mls @ 7.5 mls/hr 01/25/21 17:04 02/03/21 19:40 Levophed Drip 4 Mg/Ns 250 Ml IV 6 mcg/min TITR JACK 22.5 mls/hr Titration Protocol 2 MCG/MIN Sodium Chloride 100 mls @ 999 mls/hr 01/27/21 09:35 Nacl 0.9% IV MELECIO PRN Hypotension Vasopressin 20 unit/ Sodium 101 mls @ 9.09 mls/hr 01/28/21 07:00 01/30/21 08:55 Chloride IV Infused TITR JACK Titration Protocol 0.03 UNITS/MIN Heparin Sodium/Sodium Chloride 25,000 unit in 500 mls @ 30 mls/hr 01/28/21 11:00 02/04/21 13:10 Heparin/ 0.45% Nacl-25,000 Unit/500 Ml IV 1,500 units/hr TITR JACK 30 mls/hr Titration Protocol 1,500 UNITS/HR Cefepime HCl 1 gm in 100 mls @ 200 mls/hr 02/02/21 18:00 02/03/21 17:06 Cefepime/Ns 1 Gm/100 Ml IV 02/06/21 18:29 200 mls/hr QPM JACK Administration Protocol Fentanyl Citrate 2,000 mcg in 100 mls @ 6.4 mls/hr 02/03/21 16:00 02/04/21 06:36 Fentanyl Drip Premix IV 1 mcg/kg/hr TITR JACK 6.4 mls/hr Administration Protocol 1 MCG/KG/HR Insulin Human Regular 0 units 01/29/21 13:00 02/04/21 12:21 Insulin Regular, Human 100 Units/1 Ml SUB-Q Not Given Q6HR [facility] Protocol Lactulose 20 gm 02/03/21 14:00 02/04/21 12:19 Lactulose 20 Gm/30 Ml Oral Liqd PO 20 gm Q6HR JACK Administration Metoclopramide HCl 10 mg 02/02/21 14:00 02/04/21 15:50 Metoclopramide 10 Mg/2 Ml Inj IV 10 mg Q8H JACK Administration Multi-Ingred Cream/Lotion/Oil/Oint 1 applic 01/25/21 13:27 Mineral Oil/Petrolatum, White Ophth Oint 3.5 Gm OU Q4HR PRN Dry Eye(s) Ondansetron HCl 4 mg 01/22/21 23:03 Ondansetron 4 Mg/2 Ml Inj IV Q8H PRN Nausea And Vomiting Senna/Docusate Sodium 1 tab 01/25/21 22:00 02/04/21 12:19 Sennosides/Docusate Sodium 8.6/50 Mg Tab FEEDTUBE 1 tab BID JACK Administration Simple Syrup 15 ml 01/27/21 11:37 Simple Syrup 15 Ml FEEDTUBE PRN PRN Hypoglycemia Simple Syrup 30 ml 01/27/21 11:37 Simple Syrup 15 Ml FEEDTUBE PRN PRN Hypoglycemia Sodium Bicarbonate 325 mg 01/27/21 11:37 Sodium Bicarbonate 325 Mg Tab FEEDTUBE PRN PRN For Clogged Feeding Tube Sodium Chloride 10 ml 01/22/21 23:45 02/04/21 12:19 Sodium Chloride 0.9% 10 Ml Flush Syringe IV 10 ml BID JACK Administration Sodium Chloride 10 ml 01/22/21 23:03 Sodium Chloride 0.9% 10 Ml Flush Syringe IV PRN PRN LINE FLUSH Voriconazole 300 mg 01/29/21 11:00 02/04/21 12:20 Voriconazole 200 Mg Tab PO 300 mg Q12HR JACK Administration Zinc Sulfate 220 mg 02/02/21 11:00 02/04/21 12:20 Zinc Sulfate 220 Mg Cap PO 220 mg BID JACK Administration Nutrition/Malnutrition Assess - Dietary Evaluation Nutrition/Malnutrition Findings: Nutrition Notes Start: 01/24/21 13:25 Freq: Status: Active Protocol: Document 02/02/21 10:21 (Rec: 02/02/21 10:28 [id number]) Nutrition Notes Initial or Follow up Reassessment Current Diagnosis Sepsis,Respiratory Failure, Malnutrition Other Pertinent Diagnosis covid-19, pneumonia Current Diet Nepro 1.8 at 30 ml/hr Labs/Tests K 5.9 BUN 118 Cr 7.2 Pertinent Medications Levophed Vasopressin Height 5 ft 6 in Weight 128 kg [place] Body Weight (kg) 64.54 BMI 45.5 Weight Status Morbidly Obese Subjective/Other Information TF running at 20 ml/hr and is being increased per tolerance. Pt procedure this AM and TF was paused. Percent of energy/protein needs met: 48%/24% Burn Absent Trauma Absent GI Symptoms None Current % PO Negligible Minimum of two criteria No physical signs of malnutrition #1 Nutrition Diagnosis Inadequate oral intake Diagnosis Progress(for reassessment Continues documentation) Is patient on ventilator? Yes Is Patient Ambulatory and/or Out of Bed No REE-([facility]-confined to bed) 2484.852 Kcal/Kg value to use for calculation 14 Approximate Energy Requirements Using 1792 kcal/Kg Calculation Used for Recommendations Kcal/kg Additional Notes Protein needs: up to 161 (up to 2.5 g/kgIBW) fluid needs: 1ml/kcal or per MD order Nutrition Intervention Nutrition Support: Nepro at 30 ml/hr with a free water flush of 175 ml q4h Kcal 1,296 Protein (gm) 58 Fluid (mL) 523 Goal #1 Meet needs as best as possible via TF Anticipated Discharge Needs: Unable to determine at this time Follow-Up By: 02/05/21 Additional Comments F/u: TF rate and tolerance <STAR CHRISTY - Last Filed: 02/05/21 17:37> History Interval history: I saw and evaluated the patient. Discussed with the nurse practitioner and agree with their findings and plan as documented in this note. Hospitalist Physical - Constitutional Vitals: Temp Pulse Resp BP Pulse Ox 98.8 F 76 28 H 103/35 83 L 02/05/21 12:00 02/05/21 15:15 02/05/21 15:15 02/05/21 15:15 02/05/21 15:15 Results - Labs CBC & Chem 7: 02/05/21 14:32 02/05/21 14:32 Labs: Laboratory Last Values WBC 59.8 K/mm3 (4.5-11.0) H* 02/04/21 06:40 RBC 2.95 M/mm3 (3.65-5.03) L 02/04/21 06:40 Hgb 8.1 gm/dl (11.8-15.2) L 02/05/21 14:32 Hct 26.5 % (35.5-45.6) L 02/05/21 14:32 MCV 89 fl (84-94) 02/04/21 06:40 MCH 29 pg (28-32) 02/04/21 06:40 MCHC 32 % (32-34) 02/04/21 06:40 RDW 14.8 % (13.2-15.2) 02/04/21 06:40 Plt Count 132 K/mm3 (140-440) L 02/05/21 14:32 Lymph % (Auto) 4.4 % (13.4-35.0) L 01/23/21 05:29 [place] % (Auto) 6.4 % (0.0-7.3) 01/23/21 05:29 Lymph # (Auto) 0.8 K/mm3 (1.2-5.4) L 01/23/21 05:29 [place] # (Auto) 1.2 K/mm3 (0.0-0.8) H 01/23/21 05:29 Add Manual Diff Complete 02/02/21 Unknown Total Counted 100 02/02/21 Unknown Seg Neutrophils % Instrument Repair Technician 02/02/21 Unknown Seg Neuts % (Manual) 94.0 % (40.0-70.0) H 02/02/21 Unknown Band Neutrophils % 2.0 % 01/22/21 11:06 Lymphocytes % (Manual) 3.0 % (13.4-35.0) L 02/02/21 Unknown Monocytes % (Manual) 2.0 % (0.0-7.3) 02/02/21 Unknown Eosinophils % (Manual) 1.0 % (0.0-4.3) 02/02/21 Unknown Nucleated RBC % Not Reportable 02/02/21 Unknown Seg Neutrophils # 16.9 K/mm3 (1.8-7.7) H 01/23/21 05:29 Seg Neutrophils # Man 56.6 K/mm3 (1.8-7.7) H 02/02/21 Unknown Band Neutrophils # 0.0 K/mm3 02/02/21 Unknown Lymphocytes # (Manual) 1.8 K/mm3 (1.2-5.4) 02/02/21 Unknown Abs React Lymphs (Man) 0.0 K/mm3 02/02/21 Unknown Monocytes # (Manual) 1.2 K/mm3 (0.0-0.8) H 02/02/21 Unknown Eosinophils # (Manual) 0.6 K/mm3 (0.0-0.4) H 02/02/21 Unknown Basophils # (Manual) 0.0 K/mm3 (0.0-0.1) 02/02/21 Unknown Metamyelocytes # 0.0 K/mm3 02/02/21 Unknown Myelocytes # 0.0 K/mm3 02/02/21 Unknown Promyelocytes # 0.0 K/mm3 02/02/21 Unknown Blast Cells # 0.0 K/mm3 02/02/21 Unknown WBC Morphology Not Reportable 02/02/21 Unknown Hypersegmented Neuts Not Reportable 02/02/21 Unknown Hyposegmented Neuts Not Reportable 02/02/21 Unknown Hypogranular Neuts Not Reportable 02/02/21 Unknown Smudge Cells Not Reportable 02/02/21 Unknown Toxic Granulation Not Reportable 02/02/21 Unknown Toxic Vacuolation Not Reportable 02/02/21 Unknown Dohle Bodies Not Reportable 02/02/21 Unknown Pelger-Huet Anomaly Not Reportable 02/02/[address] Rods Not Reportable 02/02/21 Unknown Platelet Estimate Not Reportable 02/02/21 Unknown Clumped Platelets Not Reportable 02/02/21 Unknown Plt Clumps, EDTA Not Reportable 02/02/21 Unknown Large Platelets Not Reportable 02/02/21 Unknown Giant Platelets Not Reportable 02/02/21 Unknown Platelet Satelliting Not Reportable 02/02/21 Unknown Plt Morphology Comment Not Reportable 02/02/21 Unknown RBC Morphology Normal 02/02/21 Unknown Dimorphic RBCs Not Reportable 02/02/21 Unknown Polychromasia Not Reportable 02/02/21 Unknown Hypochromasia Not Reportable 02/02/21 Unknown Poikilocytosis Not Reportable 02/02/21 Unknown Anisocytosis Not Reportable 02/02/21 Unknown Microcytosis Not Reportable 02/02/21 Unknown Macrocytosis Not Reportable 02/02/21 Unknown Spherocytes Not Reportable 02/02/21 Unknown Pappenheimer Bodies Not Reportable 02/02/21 Unknown Sickle Cells Not Reportable 02/02/21 Unknown Target Cells Not Reportable 02/02/21 Unknown Tear Drop Cells Not Reportable 02/02/21 Unknown Ovalocytes Not Reportable 02/02/21 Unknown Helmet Cells Not Reportable 02/02/21 Unknown Soliman-Amorita Bodies Not Reportable 02/02/21 Unknown [place] Rings Not Reportable 02/02/21 Unknown Claudia Cells Not Reportable 02/02/21 Unknown Bite Cells Not Reportable 02/02/21 Unknown Crenated Cell Not Reportable 02/02/21 Unknown Elliptocytes Not Reportable 02/02/21 Unknown Acanthocytes (Spur) Not Reportable 02/02/21 Unknown Rouleaux Not Reportable 02/02/21 Unknown Hemoglobin C Crystals Not Reportable 02/02/21 Unknown Schistocytes Not Reportable 02/02/21 Unknown Malaria parasites Not Reportable 02/02/21 Unknown Lloyd Bodies Not Reportable 02/02/21 Unknown Hem Pathologist Commnt No 02/02/21 Unknown PT 15.1 Sec. (12.2-14.9) H 02/02/21 Unknown INR 1.13 (0.87-1.13) 02/02/21 Unknown APTT 29.2 Sec. (24.2-36.6) 01/28/21 10:03 D-Dimer 3359.01 ng/mlDDU (0-234) H 02/05/21 14:32 Heparin Anti-Xa Level 0.20 U.I./ml (0.3-0.7) L 02/05/21 14:32 ABG pH 7.203 pH Units (7.350-7.450) L 02/05/21 04:39 POC ABG pCO2 47.3 mmHg (32.0-48.0) 02/04/21 04:00 ABG pCO2 62.3 mm Hg 02/05/21 04:39 POC ABG pO2 69.2 mmHg (83-108) L 02/04/21 04:00 ABG pO2 64.8 mm Hg (80.0-90.0) L 02/05/21 04:39 POC ABG HCO3 24.3 02/04/21 04:00 ABG HCO3 24.0 mmol/L (20.0-26.0) 02/05/21 04:39 ABG O2 Saturation 86.6 % (95.0-99.0) L 02/05/21 04:39 ABG O2 Content 10.3 (0.0-44) 02/05/21 04:39 POC ABG Base Excess -1.7 02/04/21 04:00 ABG Base Excess -4.2 mmol/L (-2.0-3.0) L 02/05/21 04:39 ABG Hemoglobin 8.6 gm/dl (14.0-18.0) L 02/05/21 04:39 ABG Oxyhemoglobin 91.5 (94-98) L 02/04/21 04:00 ABG Carboxyhemoglobin 2.1 % (0.0-5.0) 02/05/21 04:39 ABG Methemoglobin 0.6 % (0.0-1.5) 02/05/21 04:39 ABG Sodium 127.7 mmol/L (136.0-145.0) L 02/04/21 04:00 ABG Potassium 4.9 mmol/L (3.40-4.50) H 02/04/21 04:00 ABG Chloride 98.0 mmol/L (98-107) 02/04/21 04:00 ABG Glucose 172 mg/dL (65-95) H 02/04/21 04:00 Oxyhemoglobin 84.1 % (95.0-99.0) L 02/05/21 04:39 Carboxyhemoglobin 1.0 (0.5-1.5) 02/04/21 04:00 FiO2 100 % 02/05/21 04:39 FiO2 % 100.0 02/04/21 04:00 Sodium 128 mmol/L (137-145) L 02/05/21 14:32 Sodium 129 mmol/L (137-145) L 02/05/21 14:32 Potassium 5.5 mmol/L (3.6-5.0) H 02/05/21 14:32 Potassium 5.5 mmol/L (3.6-5.0) H 02/05/21 14:32 Chloride 91.2 mmol/L (98-107) L 02/05/21 14:32 Chloride 91.3 mmol/L (98-107) L 02/05/21 14:32 Carbon Dioxide 22 mmol/L (22-30) 02/05/21 14:32 Carbon Dioxide 23 mmol/L (22-30) 02/05/21 14:32 Anion Gap 19 mmol/L 02/05/21 14:32 Anion Gap 21 mmol/L 02/05/21 14:32 BUN 95 mg/dL (9-20) H 02/05/21 14:32 BUN 97 mg/dL (9-20) H 02/05/21 14:32 Creatinine 6.2 mg/dL (0.8-1.3) H 02/05/21 14:32 Creatinine 6.4 mg/dL (0.8-1.3) H 02/05/21 14:32 Estimated GFR 9 ml/min 02/05/21 14:32 Estimated GFR 10 ml/min 02/05/21 14:32 BUN/Creatinine Ratio 15 % 02/05/21 14:32 BUN/Creatinine Ratio 16 % 02/05/21 14:32 Glucose 153 mg/dL (75-100) H 02/05/21 14:32 Glucose 155 mg/dL (75-100) H 02/05/21 14:32 POC Glucose 132 mg/dL (70-105) H 02/05/21 17:07 Hemoglobin A1c 6.2 % (4-6) H 01/22/21 11:06 Lactic Acid 4.20 mmol/L (0.7-2.0) H* 01/22/21 11:06 Calcium 7.1 mg/dL (8.4-10.2) L 02/05/21 14:32 Calcium 7.3 mg/dL (8.4-10.2) L 02/05/21 14:32 Phosphorus 9.80 mg/dL (2.5-4.5) H 02/05/21 16:40 Magnesium 2.50 mg/dL (1.7-2.3) H 02/03/21 05:25 Ferritin 2914.0 ng/mL (30.0-300.0) H 02/03/21 05:25 Total Bilirubin 1.20 mg/dL (0.1-1.2) 02/05/21 14:32 Direct Bilirubin 1.6 mg/dL (0-0.2) H 01/31/21 03:30 Indirect Bilirubin 0.0 mg/dL 01/31/21 03:30 AST 70 units/L (5-40) H 02/05/21 14:32 ALT 130 units/L (7-56) H 02/05/21 14:32 Alkaline Phosphatase 205 units/L (35-129) H 02/05/21 14:32 Ammonia 94.0 umol/L (25-60) H 02/05/21 14:32 Lactate Dehydrogenase 1181 units/L (91-180) H 02/05/21 14:32 Total Creatine Kinase 258 units/L (55-170) H 01/27/21 05:00 C-Reactive Protein 5.30 mg/dL (0.00-1.30) H 02/05/21 14:32 Serum Total Protein 7.2 g/dL (6.1-8.1) 01/27/21 11:55 Total Protein 4.9 g/dL (6.3-8.2) L 02/05/21 14:32 Albumin 2.1 g/dL (3.9-5) L 02/05/21 14:32 Albumin/Globulin Ratio 0.8 % 02/05/21 14:32 Pckad-2-Qpkpgvfig 0.7 g/dL (0.2-0.3) H 01/27/21 11:55 Hswfy-2-Hrkpbvgqc 1.2 g/dL (0.5-0.9) H 01/27/21 11:55 Beta Globulins 0.7 g/dL (0.2-0.5) H 01/27/21 11:55 Gamma Globulins 1.6 g/dL (0.8-1.7) 01/27/21 11:55 Abnorm Protein Band 1 0.5 g/dL H 01/27/21 11:55 PEP Interpretation see below H 01/27/21 11:55 Triglycerides 369 mg/dL (2-149) H 01/28/21 04:00 Lipase 46 units/L (13-60) 02/01/21 04:00 Procalcitonin 2.11 ng/mL (<0.15) 01/25/21 06:22 TSH 0.013 mlU/mL (0.270-4.200) L 01/28/21 10:03 Thyroxine (T4) 3.3 ug/dL (4.0-12.0) L 01/30/21 15:35 Free T3 Index 1.1 pg/mL (2.3-4.2) L 01/30/21 15:35 Arterial Blood Glucose 172 mg/dL (65-95) H 02/04/21 04:00 Arterial Blood Ionized Calcium 4.0 mg/dL (4.6-5.3) L 02/04/21 04:00 Random Vancomycin 13.1 ug/mL (0-40.0) 02/05/21 14:32 Immunofix Electrophor see below H 01/27/21 11:55 ANURAG Screen Negative (Negative) 01/27/21 11:55 Proteinase 3 (PR3) Ab <1.0 AI (<1.0) 01/27/21 11:55 Myeloperoxidase Ab <1.0 AI (<1.0) 01/27/21 11:55 Complement C3 105 mg/dL (82-185) 01/27/21 11:55 Complement C4 17 mg/dL (15-53) 01/27/21 11:55 Coronavirus (PCR) Positive (Negative) A 01/23/21 09:00 Hepatitis A IgM Ab Non-reactive (NonReactive) 01/27/21 11:41 Hep Bs Antigen Nonreactive (Negative) 01/27/21 11:41 Hep B Core IgM Ab Non-reactive (NonReactive) 01/27/21 11:41 Hepatitis C Antibody Non-reactive (NonReactive) 01/27/21 11:41 Miscellaneous Test Flexitest 1 H 01/29/21 Unknown Microbiology: Microbiology 02/03/21 10:12 Urine,Catheterized - Indwelling Catheter Urine Culture - Final NO GROWTH AFTER 48 HOURS 02/03/21 08:44 Peripheral/Venous Blood Culture - Preliminary NO GROWTH AFTER 48 HOURS 02/03/21 08:44 Peripheral/Venous Blood Culture - Preliminary NO GROWTH AFTER 48 HOURS Arana/IV: Voiding Method Incontinent Active Medications - Current Medications Current Medications: Generic Name Dose Route Start Last Admin Trade Name Freq PRN Reason Stop Dose Admin Albumin Human 25 gm 01/27/21 09:35 Albumin Human 25% (25 Gm/100 Ml) Inj IV MELECIO PRN Hypotension Amiodarone HCl 200 mg 01/30/21 10:00 02/05/21 10:53 Amiodarone 200 Mg Tab PO 200 mg DAILY JACK Administration Lipase/Protease/Amylase 1 each 01/27/21 11:37 Lipase 10,500/Protease 25,000/Amylase 43,750 (Units) Dr Cap FEEDTUBE PRN PRN For Clogged Feeding Tube Ascorbic Acid 500 mg 02/02/21 11:00 02/05/21 10:53 Ascorbic Acid 500 Mg Tab PO 500 mg BID JACK Administration Cholecalciferol 5,000 unit 02/02/21 11:00 02/05/21 10:53 Cholecalciferol (Vit D3) 5,000 Unit Tab PO 5,000 unit DAILY JACK Administration Dextrose 50 ml 01/29/21 12:24 Dextrose 50% In Water (25gm) 50 Ml Syringe IV Q30MIN PRN Hypoglycemia Protocol Famotidine 20 mg 01/27/21 10:00 02/05/21 10:53 Famotidine 20 Mg/2 Ml Inj IV 20 mg DAILY JACK Administration Fentanyl 50 mcg 02/03/21 15:20 Fentanyl 100 Mcg/2 Ml Inj IV Q10MIN PRN ANALGESIA Heparin Sodium (Porcine) 5,000 unit 01/28/21 09:27 Heparin 10,000 Units/10 Ml Vial IV Q6H PRN Anti-Xa Assay < 0.1 units/ml Hydrophilic Ointment 1 applic 01/25/21 13:27 Lip Therapy Vaseline TP Q2HR PRN Dry Lips Norepinephrine 4 mg in 250 mls @ 7.5 mls/hr 01/25/21 17:04 02/05/21 05:43 Levophed Drip 4 Mg/Ns 250 Ml IV 6 mcg/min TITR JACK 22.5 mls/hr Administration Protocol 2 MCG/MIN Sodium Chloride 100 mls @ 999 mls/hr 01/27/21 09:35 Nacl 0.9% IV MELECIO PRN Hypotension Vasopressin 20 unit/ Sodium 101 mls @ 9.09 mls/hr 01/28/21 07:00 01/30/21 08:55 Chloride IV Infused TITR JACK Titration Protocol 0.03 UNITS/MIN Heparin Sodium/Sodium Chloride 25,000 unit in 500 mls @ 30 mls/hr 01/28/21 11:00 02/05/21 16:33 Heparin/ 0.45% Nacl-25,000 Unit/500 Ml IV 1,600 units/hr TITR JACK 32 mls/hr Titration Protocol 1,500 UNITS/HR Cefepime HCl 1 gm in 100 mls @ 200 mls/hr 02/02/21 18:00 02/04/21 17:45 Cefepime/Ns 1 Gm/100 Ml IV 02/06/21 18:29 200 mls/hr QPM JACK Administration Protocol Fentanyl Citrate 2,000 mcg in 100 mls @ 6.4 mls/hr 02/03/21 16:00 02/04/21 06:36 Fentanyl Drip Premix IV 1 mcg/kg/hr TITR JACK 6.4 mls/hr Administration Protocol 1 MCG/KG/HR Insulin Human Regular 0 units 01/29/21 13:00 02/05/21 11:52 Insulin Regular, Human 100 Units/1 Ml SUB-Q 1 units Q6HR JACK Administration Protocol Metoclopramide HCl 10 mg 02/02/21 14:00 02/05/21 16:38 Metoclopramide 10 Mg/2 Ml Inj IV 10 mg Q8H [facility] Administration Multi-Ingred Cream/Lotion/Oil/Oint 1 applic 01/25/21 13:27 Mineral Oil/Petrolatum, White Ophth Oint 3.5 Gm OU Q4HR PRN Dry Eye(s) Ondansetron HCl 4 mg 01/22/21 23:03 Ondansetron 4 Mg/2 Ml Inj IV Q8H PRN Nausea And Vomiting Senna/Docusate Sodium 1 tab 01/25/21 22:00 02/05/21 10:54 Sennosides/Docusate Sodium 8.6/50 Mg Tab FEEDTUBE Not Given BID [facility] Simple Syrup 15 ml 01/27/21 11:37 Simple Syrup 15 Ml FEEDTUBE PRN PRN Hypoglycemia Simple Syrup 30 ml 01/27/21 11:37 Simple Syrup 15 Ml FEEDTUBE PRN PRN Hypoglycemia Sodium Bicarbonate 325 mg 01/27/21 11:37 Sodium Bicarbonate 325 Mg Tab FEEDTUBE PRN PRN For Clogged Feeding Tube Sodium Chloride 10 ml 01/22/21 23:45 02/05/21 10:54 Sodium Chloride 0.9% 10 Ml Flush Syringe IV 10 ml BID JACK Administration Sodium Chloride 10 ml 01/22/21 23:03 Sodium Chloride 0.9% 10 Ml Flush Syringe IV PRN PRN LINE FLUSH Vancomycin HCl 250 mg 02/05/21 13:00 02/05/21 16:38 Vancomycin 250 Mg/10 Ml Oral Liqd PO 02/15/21 06:01 250 mg Q6HR JACK Administration Protocol Voriconazole 300 mg 01/29/21 11:00 02/05/21 10:53 Voriconazole 200 Mg Tab PO 300 mg Q12HR JACK Administration Zinc Sulfate 220 mg 02/02/21 11:00 02/05/21 10:53 Zinc Sulfate 220 Mg Cap PO 220 mg BID JACK Administration Nutrition/Malnutrition Assess - Dietary Evaluation Nutrition/Malnutrition Findings: Nutrition Notes Start: 01/24/21 13:25 Freq: Status: Active Protocol: Document 02/05/21 10:43 (Rec: 02/05/21 10:53 [id number]) Nutrition Notes Initial or Follow up Reassessment Current Diagnosis Sepsis,Respiratory Failure, Malnutrition Other Pertinent Diagnosis covid-19, pneumonia Current Diet Nepro 1.8 at 30 ml/hr Labs/Tests 02/04: Na 133 BUN 77 Cr 5.3 Pertinent Medications Levophed Reglan Height 5 ft 6 in Weight 128 kg [place] Body Weight (kg) 64.54 BMI 45.5 Weight Status Morbidly Obese Subjective/Other Information Pt suffered code blue this AM. Per chart, pt TF remains running at 30 ml/hr. Percent of energy/protein needs met: 72%/36% Burn Absent Trauma Absent GI Symptoms None Current % PO Negligible Minimum of two criteria No physical signs of malnutrition #1 Nutrition Diagnosis Inadequate oral intake Diagnosis Progress(for reassessment Continues documentation) Is patient on ventilator? Yes Is Patient Ambulatory and/or Out of Bed No REE-([place]-[facility]. Jeor-confined to bed) 2484.852 Kcal/Kg value to use for calculation 14 Approximate Energy Requirements Using 1792 kcal/Kg Calculation Used for Recommendations Kcal/kg Additional Notes Protein needs: up to 161 (up to 2.5 g/kgIBW) fluid needs: 1ml/kcal or per MD order Nutrition Intervention Change Diet Order: Increase TF Nutrition Support: Nepro at 40 ml/hr with a free water flush of 175 ml q4h Kcal 1,728 Protein (gm) 78 Fluid (mL) 698 Goal #1 Meet at least 75% of kcal and meet protein needs as best as possible via TF Anticipated Discharge Needs: Unable to determine at this time Follow-Up By: 02/07/21 Additional Comments F/u: TF rate and tolerance
[2021-02-04] MEDS: HEPARIN/ 0.45% NACL DRIP 25,000 UNIT/500 ML BAG IV SCH (16:57)
[2021-02-04] MEDS ORDERED: ALTEPLASE 2 MG INJ IV ONE (17:33)
[2021-02-04] MEDS: CEFEPIME/NS 1 GM/100 ML 1 GM/100 ML BAG IV SCH (17:45)
[2021-02-05] MEDS: METOCLOPRAMIDE 10 MG/2 ML INJ IV SCH ×4 (01:00→22:38)
[2021-02-05] MEDS: LACTULOSE 20 GM/30 ML ORAL LIQD PO SCH ×2 (01:01→05:21)
[2021-02-05] MEDS: INSULIN REGULAR, HUMAN 100 UNITS/1 ML SUB-Q SCH ×4 (01:02→21:12)
[2021-02-05] MEDS ORDERED: dilTIAZem 25 MG/5 ML INJ IV ONE (04:57)
[2021-02-05 05:09] LABS: ABG Base Excess -4.2 mmol/L (-2.0-3.0); ABG Methemoglobin 0.6 % (0.0-1.5); ABG Oxygen Saturation 86.6 % (95.0-99.0); ABG PCO2 62.3 mm Hg; ABG PH 7.203 pH Units (7.350-7.450); ABG PO2 64.8 mm Hg (80.0-90.0)
[2021-02-05] MEDS: NORepinephrine/NS 4 MG-250 ML 4 MG/250 ML BAG IV SCH ×2 (05:43→20:30)
--- NOTE | 2021-02-05 05:55 | Event Note ---
Date: 02/05/21 CODE DOE was called. Patient was given CPR as per ACLS protocol. Patient was given 1 atropine 1 bicarb. Patient was found SVT patient was given 6 mg of adenosine and later 10 mg of Cardizem. Patient regained ROSC but blood pressure is low. We put we are going to put the patient on Levophed. Called the family but no one picked up the phone. Left voice messages.
[2021-02-05] MEDS ORDERED: SODIUM BICARB 8.4% 50 MEQ/50 ML SYRINGE IV ONE (06:39)
[2021-02-05] MEDS ORDERED: LIDOCAINE PF 100 MG/5 ML (CARDIAC SYRINGE) IV ONE (06:39)
[2021-02-05] MEDS ORDERED: ADENOSINE 6 MG/2 ML INJ ONE (06:39)
[2021-02-05] MEDS ORDERED: EPINEPHrine 1 MG/10 ML SYRINGE ONE (06:39)
--- NOTE | 2021-02-05 10:46 | Progress Note ---
Assessment and Plan Acute Respiratory Failure COVID-19 PNA Septic Shock * Patient intubated. ID following * Wean pressors as tolerated SEDRICK (initiated on dialysis) * Nephrology following SVT Sinus Rhythm PAF with RVR * Code blue was called on patient this AM. Per documentation ACLS protocol was followed and patient received CPR, 1 atropine, and 1 bicarb. Patient was then found to be SVT and was then given 6 mg of adenosine and later 10 mg of Cardizem. ROSC achieved * Patient currently sinus 80s on monitor. * Echo 01/29/2021- Normal EF. Technically difficult study, no interpretable images were seen. * Continue anticoagulation with IV heparin gtt for now. * Continue Amio 200mg PO daily Will continue to follow. Pt seen in conjunction with Dr. Bryson, who agrees with the assessment and plan of care. - Patient Problems (1) Acute respiratory failure due to COVID-19 Current Visit: Yes Status: Acute (2) Atrial fibrillation with RVR Current Visit: Yes Status: Acute (3) Hypotension Current Visit: Yes Status: Acute (4) Morbid obesity with BMI of 40.0-44.9, adult Current Visit: Yes Status: Acute (5) Multifocal pneumonia Current Visit: Yes Status: Acute (6) Sepsis Current Visit: Yes Status: Acute (7) Chronic venous insufficiency Current Visit: Yes Status: Chronic Subjective Date of service: 02/05/21 Principal diagnosis: Ac hypoxemic resp failure; COVID-19; Pneumonia; Sepsis; Morbid obesity Interval history: Sebastián unger was called on patient this AM. Per documentation ACLS protocol was followed and patient received CPR, 1 atropine, and 1 bicarb. Patient was then found to be SVT and was then given 6 mg of adenosine and later 10 mg of Cardizem. ROSC. Patient on Levophed Patient remain intubated. sinus tachycardia 80s monitor Objective Last Vital Signs Temp 98.1 F 02/05/21 08:00 Pulse 92 H 02/05/21 08:00 Resp 30 H 02/05/21 08:00 BP 105/41 02/05/21 08:00 Pulse Ox 91 02/05/21 08:00 - Physical Examination General: Other (intubated) HEENT: Positive: Normocephaly Neck: Positive: trachea midline. Negative: JVD/HJR Cardiac: Positive: Reg Rate and Rhythm Lungs: Positive: Ventilated Respirations Neuro: Positive: Other (intubated) Abdomen: Positive: Soft Skin: Negative: Rash Musculoskeletal: No Fluid Collection Extremities: Present: lower extr. pulses, edema, Other (chronic changes) - Labs and Meds Cardiac Enzymes 02/04/21 Range/Units 05:00 AST 110 H (5-40) units/L Comprehensive Metabolic Panel 02/04/21 Range/Units 05:00 Sodium 133 L (137-145) mmol/L Potassium 5.0 (3.6-5.0) mmol/L Chloride 93.8 L (98-107) mmol/L Carbon Dioxide 25 (22-30) mmol/L BUN 77 H (9-20) mg/dL Creatinine 5.3 H (0.8-1.3) mg/dL Glucose 168 H (75-100) mg/dL Calcium 7.3 L (8.4-10.2) mg/dL AST 110 H (5-40) units/L ALT 171 H (7-56) units/L Alkaline Phosphatase 196 H (35-129) units/L Total Protein 4.7 L (6.3-8.2) g/dL Albumin 2.2 L (3.9-5) g/dL - Imaging and Cardiology EKG: report reviewed, image reviewed Echo: report reviewed - Telemetry EKG Rhythm: Sinus Rhythm - EKG Sinus rhythms and dysrhythmias: sinus rhythm Repolarization changes or abnormalities: nonspecific abnormality, ST segment, and/or T wave - Allied health notes Allied health notes reviewed: nursing
[2021-02-05] MEDS: VORICONAZOLE 200 MG TAB PO SCH ×2 (10:53→22:38)
[2021-02-05] MEDS: CHOLECALCIFEROL (VIT D3) 5,000 UNIT TAB PO SCH (10:53)
[2021-02-05] MEDS: FAMOTIDINE 20 MG/2 ML INJ IV SCH (10:53)
[2021-02-05] MEDS: ASCORBIC ACID 500 MG TAB PO SCH ×2 (10:53→22:38)
[2021-02-05] MEDS: AMIODARONE 200 MG TAB PO SCH (10:53)
[2021-02-05] MEDS: ZINC SULFATE 220 MG CAP PO SCH ×2 (10:53→22:00)
[2021-02-05] MEDS: SENNOSIDES/DOCUSATE SODIUM 8.6/50 MG TAB FEEDTUBE SCH ×2 (10:54→22:38)
[2021-02-05] MEDS: HEPARIN/ 0.45% NACL DRIP 25,000 UNIT/500 ML BAG IV SCH (11:08)
[2021-02-05] MEDS ORDERED: WATER FOR INJ Sterile (PF) 10 ML ONE (11:56)
[2021-02-05] MEDS ORDERED: ALTEPLASE 2 MG INJ IV ONE (12:00)
--- NOTE | 2021-02-05 14:00 | Progress Note ---
Assessment and Plan Assessment: Acute kidney injury Hyperkalemia Acidosis Azotemia Acute respiratory failure, status post intubation Covid pneumonia Pneumothorax Septic shock Recommendations ABG reviewed, ordered BMP check Last hd 1.5 hrs 02/03 before hemodynamics prevented full treatment Assess daily for HD needs with close monitoring of hemodynamic status, HD challenging due to hemodynamic status/vasopressor requirements Check labs daily Assess daily for needs for additional hemodialysis sessions UF as tolerated with hd chest tube --surgery note reviewed daily lytes, strict i/os likey ATN due to COvid infection Renally dose medications Avoid nephrotoxins [facility] referral noted, may not be [facility] dialysis appropriate, palliative care discussion appropriate Prognosis guarded Subjective Date of service: 02/05/21 Principal diagnosis: Ac hypoxemic resp failure; COVID-19; Pneumonia; Sepsis; Morbid obesity Interval history: Code blue this morning s/p ROSC. Remains intubated. Objective - Exam Narrative Exam: Deferred to reduce transmission risk, primary team exam reviewed. - Vital Signs Vital signs: Vital Signs - 12hr 02/05/21 02/05/21 02/05/21 02:00 02:15 02:30 Temperature Pulse Rate 80 81 83 Respiratory 31 H 31 H 30 H Rate Blood Pressure 114/38 121/49 113/41 O2 Sat by Pulse 96 95 96 Oximetry 02/05/21 02/05/21 02/05/21 02:45 03:00 03:12 Temperature 98.8 F Pulse Rate 82 79 Respiratory 31 H 30 H Rate Blood Pressure 109/43 100/49 O2 Sat by Pulse 95 96 Oximetry 02/05/21 02/05/21 02/05/21 03:15 03:30 03:46 Temperature Pulse Rate 80 81 Respiratory 31 H 19 31 H Rate Blood Pressure 98/42 98/42 98/42 O2 Sat by Pulse 96 95 94 Oximetry 02/05/21 02/05/21 02/05/21 04:00 04:16 04:26 Temperature Pulse Rate 0 L 83 Respiratory 22 31 H Rate Blood Pressure 98/42 98/42 98/42 O2 Sat by Pulse 94 94 94 Oximetry 02/05/21 02/05/21 02/05/21 04:30 04:46 05:00 Temperature Pulse Rate 198 H 121 H Respiratory 32 H 33 H 22 Rate Blood Pressure 98/42 98/42 102/49 O2 Sat by Pulse 94 93 72 L Oximetry 0802/05/21 02/05/21 05:15 05:22 05:30 Temperature Pulse Rate 117 H 110 H 102 H Respiratory 25 H 25 H Rate Blood Pressure 102/42 99/38 91/39 O2 Sat by Pulse 74 L 74 L Oximetry 02/05/21 02/05/21 02/05/21 05:45 06:00 06:15 Temperature Pulse Rate 104 H 102 H 101 H Respiratory 26 H 27 H 25 H Rate Blood Pressure 93/34 90/37 91/42 O2 Sat by Pulse 85 85 86 Oximetry 02/05/21 02/05/21 02/05/21 06:30 06:45 07:00 Temperature Pulse Rate 101 H 101 H 103 H Respiratory 27 H 30 H 30 H Rate Blood Pressure 88/43 101/41 103/47 O2 Sat by Pulse 88 89 90 Oximetry 02/05/21 02/05/21 02/05/21 07:15 07:30 07:45 Temperature Pulse Rate 102 H 103 H 97 H Respiratory 31 H 29 H 30 H Rate Blood Pressure 101/47 96/48 104/51 O2 Sat by Pulse 90 90 90 Oximetry 02/05/21 02/05/21 02/05/21 08:00 08:15 08:30 Temperature 98.1 F Pulse Rate 92 H 93 H 90 Respiratory 30 H 31 H 30 H Rate Blood Pressure 105/41 102/47 97/44 O2 Sat by Pulse 91 90 91 Oximetry 02/05/21 02/05/21 02/05/21 08:45 09:00 09:15 Temperature Pulse Rate 91 H 88 87 Respiratory 28 H 29 H 30 H Rate Blood Pressure 107/40 103/39 105/41 O2 Sat by Pulse 91 90 92 Oximetry 02/05/21 02/05/21 02/05/21 09:30 09:45 10:00 Temperature Pulse Rate 85 80 81 Respiratory 29 H 27 H 24 Rate Blood Pressure 95/39 105/42 115/42 O2 Sat by Pulse 91 92 90 Oximetry 02/05/21 02/05/21 02/05/21 10:15 10:30 10:45 Temperature Pulse Rate 87 84 84 Respiratory 26 H 24 25 H Rate Blood Pressure 107/44 109/41 110/45 O2 Sat by Pulse 90 91 89 Oximetry 02/05/21 02/05/21 02/05/21 11:00 11:15 11:30 Temperature Pulse Rate 84 86 83 Respiratory 23 22 22 Rate Blood Pressure 111/45 113/46 107/41 O2 Sat by Pulse 91 93 91 Oximetry 02/05/21 02/05/21 02/05/21 11:45 12:00 12:15 Temperature 98.8 F Pulse Rate 84 82 82 Respiratory 23 22 21 Rate Blood Pressure 98/50 108/45 114/52 O2 Sat by Pulse 93 94 93 Oximetry 02/05/21 02/05/21 02/05/21 12:30 12:45 13:00 Temperature Pulse Rate 82 78 77 Respiratory 21 23 27 H Rate Blood Pressure 110/39 109/45 93/40 O2 Sat by Pulse 94 94 92 Oximetry 02/05/21 02/05/21 13:15 13:30 Temperature Pulse Rate 77 79 Respiratory 23 21 Rate Blood Pressure 111/40 101/41 O2 Sat by Pulse 91 89 Oximetry - Lab 02/04/21 06:40 02/04/21 05:00 Most recent lab results ABG pH 7.203 pH Units (7.350-7.450) L 02/05/21 04:39 ABG pCO2 62.3 mm Hg 02/05/21 04:39 ABG pO2 64.8 mm Hg (80.0-90.0) L 02/05/21 04:39 ABG HCO3 24.0 mmol/L (20.0-26.0) 02/05/21 04:39 ABG O2 Saturation 86.6 % (95.0-99.0) L 02/05/21 04:39 Calcium 7.3 mg/dL (8.4-10.2) L 02/04/21 05:00 Phosphorus 8.50 mg/dL (2.5-4.5) H 02/03/21 05:25 Magnesium 2.50 mg/dL (1.7-2.3) H 02/03/21 05:25 Medications & Allergies - Medications Allergies/Adverse Reactions: Allergies No Known Allergies Allergy (Verified 01/27/21 15:55) Per Peg López Home Medications: Home Medications Medication Instructions Recorded Confirmed Last Taken Type No Known Home Medications [No 01/27/21 01/27/21 Unknown History Reported Home Medications] Active Medications: Generic Name Dose Route Start Last Admin Trade Name Freq PRN Reason Stop Dose Admin Albumin Human 25 gm 01/27/21 09:35 Albumin Human 25% (25 Gm/100 Ml) Inj IV MELECIO PRN Hypotension Amiodarone HCl 200 mg 01/30/21 10:00 02/05/21 10:53 Amiodarone 200 Mg Tab PO 200 mg DAILY JACK Administration Lipase/Protease/Amylase 1 each 01/27/21 11:37 Lipase 10,500/Protease 25,000/Amylase 43,750 (Units) Dr Cap FEEDTUBE PRN PRN For Clogged Feeding Tube Ascorbic Acid 500 mg 02/02/21 11:00 02/05/21 10:53 Ascorbic Acid 500 Mg Tab PO 500 mg BID JACK Administration Cholecalciferol 5,000 unit 02/02/21 11:00 02/05/21 10:53 Cholecalciferol (Vit D3) 5,000 Unit Tab PO 5,000 unit DAILY JACK Administration Dextrose 50 ml 01/29/21 12:24 Dextrose 50% In Water (25gm) 50 Ml Syringe IV Q30MIN PRN Hypoglycemia Protocol Famotidine 20 mg 01/27/21 10:00 02/05/21 10:53 Famotidine 20 Mg/2 Ml Inj IV 20 mg DAILY JACK Administration Fentanyl 50 mcg 02/03/21 15:20 Fentanyl 100 Mcg/2 Ml Inj IV Q10MIN PRN ANALGESIA Heparin Sodium (Porcine) 5,000 unit 01/28/21 09:27 Heparin 10,000 Units/10 Ml Vial IV Q6H PRN Anti-Xa Assay < 0.1 units/ml Hydrophilic Ointment 1 applic 01/25/21 13:27 Lip Therapy Vaseline TP Q2HR PRN Dry Lips Norepinephrine 4 mg in 250 mls @ 7.5 mls/hr 01/25/21 17:04 02/05/21 05:43 Levophed Drip 4 Mg/Ns 250 Ml IV 6 mcg/min TITR JACK 22.5 mls/hr Administration Protocol 2 MCG/MIN Sodium Chloride 100 mls @ 999 mls/hr 01/27/21 09:35 Nacl 0.9% IV MELECIO PRN Hypotension Vasopressin 20 unit/ Sodium 101 mls @ 9.09 mls/hr 01/28/21 07:00 01/30/21 08:55 Chloride IV Infused TITR JACK Titration Protocol 0.03 UNITS/MIN Heparin Sodium/Sodium Chloride 25,000 unit in 500 mls @ 30 mls/hr 01/28/21 11:00 02/05/21 11:08 Heparin/ 0.45% Nacl-25,000 Unit/500 Ml IV 1,500 units/hr TITR JACK 30 mls/hr Administration Protocol 1,500 UNITS/HR Cefepime HCl 1 gm in 100 mls @ 200 mls/hr 02/02/21 18:00 02/04/21 17:45 Cefepime/Ns 1 Gm/100 Ml IV 02/06/21 18:29 200 mls/hr QPM JACK Administration Protocol Fentanyl Citrate 2,000 mcg in 100 mls @ 6.4 mls/hr 02/03/21 16:00 02/04/21 06:36 Fentanyl Drip Premix IV 1 mcg/kg/hr TITR JACK 6.4 mls/hr Administration Protocol 1 MCG/KG/HR Insulin Human Regular 0 units 01/29/21 13:00 02/05/21 11:52 Insulin Regular, Human 100 Units/1 Ml SUB-Q 1 units Q6HR JACK Administration Protocol Metoclopramide HCl 10 mg 02/02/21 14:00 02/05/21 05:21 Metoclopramide 10 Mg/2 Ml Inj IV 10 mg Q8H [facility] Administration Multi-Ingred Cream/Lotion/Oil/Oint 1 applic 01/25/21 13:27 Mineral Oil/Petrolatum, White Ophth Oint 3.5 Gm OU Q4HR PRN Dry Eye(s) Ondansetron HCl 4 mg 01/22/21 23:03 Ondansetron 4 Mg/2 Ml Inj IV Q8H PRN Nausea And Vomiting Senna/Docusate Sodium 1 tab 01/25/21 22:00 02/05/21 10:54 Sennosides/Docusate Sodium 8.6/50 Mg Tab FEEDTUBE Not Given BID JACK Simple Syrup 15 ml 01/27/21 11:37 Simple Syrup 15 Ml FEEDTUBE PRN PRN Hypoglycemia Simple Syrup 30 ml 01/27/21 11:37 Simple Syrup 15 Ml FEEDTUBE PRN PRN Hypoglycemia Sodium Bicarbonate 325 mg 01/27/21 11:37 Sodium Bicarbonate 325 Mg Tab FEEDTUBE PRN PRN For Clogged Feeding Tube Sodium Chloride 10 ml 01/22/21 23:45 02/05/21 10:54 Sodium Chloride 0.9% 10 Ml Flush Syringe IV 10 ml BID JACK Administration Sodium Chloride 10 ml 01/22/21 23:03 Sodium Chloride 0.9% 10 Ml Flush Syringe IV PRN PRN LINE FLUSH Vancomycin HCl 250 mg 02/05/21 13:00 Vancomycin 250 Mg/10 Ml Oral Liqd PO 02/15/21 06:01 Q6HR JACK Protocol Voriconazole 300 mg 01/29/21 11:00 02/05/21 10:53 Voriconazole 200 Mg Tab PO 300 mg Q12HR JACK Administration Zinc Sulfate 220 mg 02/02/21 11:00 02/05/21 10:53 Zinc Sulfate 220 Mg Cap PO 220 mg BID JACK Administration
--- NOTE | 2021-02-05 14:34 | Progress Note ---
Assessment and Plan Cultures: SARS CoV2 PCR: positive 01/22/2021 blood culture: No growth 01/25/2021 endotracheal aspirate culture: Mold, sent to reference laboratory for further evaluation. 02/03/2021 blood culture: in process 02/03/2021 ET aspirate culture: in process. A/P: 55/M with obesity, admitted with: #Shock: likely secondary to severe COVID-19. #Leukemoid reaction: multifactorial, from below. On empiric abx. #Bilateral pneumonia: Secondary to COVID-19. Very high d-dimer. DVT scan n egative. #Mold in sputum: ?colonization. Awaiting ID, meanwhile, initiated PO voriconazole given steroids and Actemra. Avoid ABLC given renal failure. #Acute hypoxic respiratory failure: Failed BiPAP. Requiring mechanical ventilation. #Subcutaneous emphysema, b/l pneumothorax, was seen by surgery and underwent right-sided chest tube placement 01/31/2021, left chest tube placement by Dr. Yee on 02/01/2021. #SEDRICK: creatinine elevated, on HD per nephrology. #Morbid obesity Recs: -f/u new cultures -continue IV Cefepime + Vancomycin, D2 of 5 -s/p Actemra on 01/26/2021 -completed steroids -continue PO voriconazole for mold in sputum given use of steroids and Actemra. Avoiding ABLC given renal failure. Fungitell high -prophylactic anticoagulation based on d-dimer per hospital protocol. -extremely poor prognosis, consider DNR status Kiya Eric MD [facility] O: [phone] F: [phone] Subjective Date of service: 02/05/21 Principal diagnosis: Ac hypoxemic resp failure; COVID-19; Pneumonia; Sepsis; Morbid obesity Interval history: Afebrile, on the vent. White count with ongoing leukemoid reaction Objective - Exam Narrative Exam: Physical exam deferred to reduce risk of transmission of COVID-19. Please refer to primary team's note. - Constitutional Vitals: Vital Signs Temp Pulse Resp BP Pulse Ox 98.8 F 79 21 101/41 89 02/05/21 12:00 02/05/21 13:30 02/05/21 13:30 02/05/21 13:30 02/05/21 13:30 Temperature -Last 24 Hours Temperature 98.8 F Temperature 98.1 F Temperature 98.8 F Temperature 98.5 F Temperature 98.1 F Temperature 99.8 F - Labs CBC & Chem 7: 02/04/21 06:40 02/04/21 05:00 Labs: Abnormal lab results 02/04/21 02/04/21 02/05/21 Range/Units 16:55 23:39 04:39 ABG pH 7.203 L (7.350-7.450) pH Units ABG pO2 64.8 L (80.0-90.0) mm Hg ABG O2 Saturation 86.6 L (95.0-99.0) % ABG Base Excess -4.2 L (-2.0-3.0) mmol/L ABG Hemoglobin 8.6 L (14.0-18.0) gm/dl Oxyhemoglobin 84.1 L (95.0-99.0) % POC Glucose 138 H 129 H (70-105) mg/dL 02/05/21 02/05/21 Range/Units 04:50 11:39 ABG pH (7.350-7.450) pH Units ABG pO2 (80.0-90.0) mm Hg ABG O2 Saturation (95.0-99.0) % ABG Base Excess (-2.0-3.0) mmol/L ABG Hemoglobin (14.0-18.0) gm/dl Oxyhemoglobin (95.0-99.0) % POC Glucose 116 H 168 H (70-105) mg/dL
--- NOTE | 2021-02-05 15:01 | Progress Note ---
Assessment and Plan Acute hypoxemic respiratory failure COVID-19 infection Multifocal pneumonia Hypernatremia Sepsis Morbid obesity with BMI of 40.0-44.9, adult - will add empiric Vancomycion instead of Flagyl re: leucocytosis and prior G.I. S&S (loose stools reported today also) - continue all chest tubes to wall suction (continuous) - repeat CXR in am - peep reduced to 14 cm H2O and will accept O2 sats in high 80's re: barotrauma - get Lactate level and trend prn - discontinued Lactulose - repeat ammonia level - continue Reglan to 10 mg IV q8h - continue HD/UF per nephrology prescription for toxin and volume clearance - Vasopressors for target MAP > 65 mmHg - continue care as below otherwise; - Daily SAT and SBT assessment as tolerated - VAP bundle addressed - continue lung protective strategies - continue bronchodilators with pulmonary hygiene per RT - wean per pulmonary driven protocols otherwise - avoid nephrotoxins, renally dose all medications - continue to avoid benzodiazepine's, reduce the possibility of delirium - complete AB's per ID rec's - prn analgesia per CPOT score - Maintenance of sleep-wake cycle, avoid delirium - enteral nutritional support at goal rate as tolerated - G.I. & VTE prophylaxis - PT/OT/ROM exercises - continue mobility protocols for pressure ulcer prophylaxis - Monitor hemodynamics closely - continue other care per attending / other consultants - discharge planning ongoing concurrently COVID SPECIFIC INTERVENTIONS - Remdesivir as per ID/Pulmonary developed protocols (receiving) - continue systemic steroids for severe COVID-19 infection (Dexamethasone) - follow repeat COVID tests results - zinc and vitamin C supplementation - Monitor inflammatory markers per facility protocol - ferritin, Ddimer, CRP - therapeutic anticoagulation per system Protocol based on d-dimer and clinical considerations (VTE prophylaxis doses now) - Continue contact and airborne isolation .... Re-evaluate in am & prn CONDITION: CRITICAL PROGNOSIS: GRAVE CODE STATUS: FULL CODE The high probability of a clinically significant, sudden or life-threatening deterioration of the [respiratory, cardiovascular & neurologic] system(s) required my full and direct attention, intervention and personal management. The aggregate critical care time was [36] minutes without overlap. Time includes spent on; [x] Data Review and interpretation [x] Patient assessment and monitoring of vital signs [x] Documentation [x] Medication orders and management Subjective Date of service: 02/05/21 Principal diagnosis: Ac hypoxemic resp failure; COVID-19; Pneumonia; Sepsis; Morbid obesity Interval history: Patient is seen today for: Acute hypoxemic respiratory failure; COVID- 19infection; Multifocal pneumonia; Hypernatremia; Sepsis; Morbid obesity Seen and examined at bedside; 24hour events reviewed; nursing and respiratory care staff consulted; no adverse overnight events reported to me; resting in bed; remains on MVS; chest tubes in place; on Levop[hed @ 4 wilfredo's/min; FiO2 remains at 100% with peep at 18 cm H2O; no emesis or overt aspiration; his visited earlier Objective Vital Signs - 12hr 02/05/21 02/05/21 02/05/21 03:12 03:15 03:30 Temperature 98.8 F Pulse Rate 80 81 Respiratory 31 H 19 Rate Blood Pressure 98/42 98/42 O2 Sat by Pulse 96 95 Oximetry 02/05/21 02/05/21 02/05/21 03:46 04:00 04:16 Temperature Pulse Rate 0 L Respiratory 31 H 22 31 H Rate Blood Pressure 98/42 98/42 98/42 O2 Sat by Pulse 94 94 94 Oximetry 02/05/21 02/05/21 02/05/21 04:26 04:30 04:46 Temperature Pulse Rate 83 198 H Respiratory 32 H 33 H Rate Blood Pressure 98/42 98/42 98/42 O2 Sat by Pulse 94 94 93 Oximetry 02/05/21 02/05/21 02/05/21 05:00 05:15 05:22 Temperature Pulse Rate 121 H 117 H 110 H Respiratory 22 25 H Rate Blood Pressure 102/49 102/42 99/38 O2 Sat by Pulse 72 L 74 L Oximetry 02/05/21 02/05/21 02/05/21 05:30 05:45 06:00 Temperature Pulse Rate 102 H 104 H 102 H Respiratory 25 H 26 H 27 H Rate Blood Pressure 91/39 93/34 90/37 O2 Sat by Pulse 74 L 85 85 Oximetry 02/05/21 02/05/21 02/05/21 06:15 06:30 06:45 Temperature Pulse Rate 101 H 101 H 101 H Respiratory 25 H 27 H 30 H Rate Blood Pressure 91/42 88/43 101/41 O2 Sat by Pulse 86 88 89 Oximetry 02/05/21 02/05/21 02/05/21 07:00 07:15 07:30 Temperature Pulse Rate 103 H 102 H 103 H Respiratory 30 H 31 H 29 H Rate Blood Pressure 103/47 101/47 96/48 O2 Sat by Pulse 90 90 90 Oximetry 02/05/21 02/05/21 02/05/21 07:45 08:00 08:15 Temperature 98.1 F Pulse Rate 97 H 92 H 93 H Respiratory 30 H 30 H 31 H Rate Blood Pressure 104/51 105/41 102/47 O2 Sat by Pulse 90 91 90 Oximetry 02/05/21 02/05/21 02/05/21 08:30 08:45 09:00 Temperature Pulse Rate 90 91 H 88 Respiratory 30 H 28 H 29 H Rate Blood Pressure 97/44 107/40 103/39 O2 Sat by Pulse 91 91 90 Oximetry 02/05/21 02/05/21 02/05/21 09:15 09:30 09:45 Temperature Pulse Rate 87 85 80 Respiratory 30 H 29 H 27 H Rate Blood Pressure 105/41 95/39 105/42 O2 Sat by Pulse 92 91 92 Oximetry 02/05/21 02/05/21 02/05/21 10:00 10:15 10:30 Temperature Pulse Rate 81 87 84 Respiratory 24 26 H 24 Rate Blood Pressure 115/42 107/44 109/41 O2 Sat by Pulse 90 90 91 Oximetry 02/05/21 02/05/21 02/05/21 10:45 11:00 11:15 Temperature Pulse Rate 84 84 86 Respiratory 25 H 23 22 Rate Blood Pressure 110/45 111/45 113/46 O2 Sat by Pulse 89 91 93 Oximetry 02/05/21 02/05/21 02/05/21 11:30 11:45 12:00 Temperature 98.8 F Pulse Rate 83 84 82 Respiratory 22 23 22 Rate Blood Pressure 107/41 98/50 108/45 O2 Sat by Pulse 91 93 94 Oximetry 02/05/21 02/05/21 02/05/21 12:15 12:30 12:45 Temperature Pulse Rate 82 82 78 Respiratory 21 21 23 Rate Blood Pressure 114/52 110/39 109/45 O2 Sat by Pulse 93 94 94 Oximetry 02/05/21 02/05/21 02/05/21 13:00 13:15 13:30 Temperature Pulse Rate 77 77 79 Respiratory 27 H 23 21 Rate Blood Pressure 93/40 111/40 101/41 O2 Sat by Pulse 92 91 89 Oximetry Constitutional: appears uncomfortable, other (middle aged obese male with mildly increased respiratory effort at rest on MVS) Eyes: non-icteric ENT: oropharynx moist, other (ETT 24 cm BRE) Neck: supple, no lymphadenopathy, no JVD, other (large circumference) Effort: mildly labored Ascultation: Bilateral: diminished breath sounds, rales, other (L&R chest tubes in place; + SQ emphysema) Percussion: Bilateral: not dull Cardiovascular: regular rate and rhythm Gastrointestinal: normoactive bowel sounds, soft, non-tender, non-distended (protuberant) Integumentary: normal Extremities: no cyanosis, no edema, pink and warm, pulses normal Neurologic: pupils equal and round, unable to assess (sedated) Psychiatric: other (unable top assess re: AMS) CBC and BMP: 02/04/21 06:40 02/04/21 05:00 ABG, PT/INR, D-dimer: ABG ABG pH 7.203 pH Units (7.350-7.450) L 02/05/21 04:39 POC ABG pCO2 47.3 mmHg (32.0-48.0) 02/04/21 04:00 ABG pCO2 62.3 mm Hg 02/05/21 04:39 POC ABG pO2 69.2 mmHg (83-108) L 02/04/21 04:00 ABG pO2 64.8 mm Hg (80.0-90.0) L 02/05/21 04:39 POC ABG HCO3 24.3 02/04/21 04:00 ABG O2 Saturation 86.6 % (95.0-99.0) L 02/05/21 04:39 PT/INR, D-dimer PT 15.1 Sec. (12.2-14.9) H 02/02/21 Unknown INR 1.13 (0.87-1.13) 02/02/21 Unknown D-Dimer 4328.24 ng/mlDDU (0-234) H 02/03/21 05:25 Abnormal lab findings: Abnormal Labs 01/22/21 01/22/21 01/22/21 11:06 11:06 11:06 WBC RBC Hgb Hct Plt Count Lymph % (Auto) Lymph # (Auto) [place] # (Auto) Seg Neutrophils % Seg Neuts % (Manual) Lymphocytes % (Manual) Nucleated RBC % Seg Neutrophils # Seg Neutrophils # Man Lymphocytes # (Manual) Monocytes # (Manual) Eosinophils # (Manual) PT INR D-Dimer 2625.11 H Heparin Anti-Xa Level ABG pH POC ABG pCO2 POC ABG pO2 ABG pO2 ABG O2 Saturation ABG Base Excess ABG Hemoglobin ABG Oxyhemoglobin ABG Sodium ABG Potassium ABG Chloride ABG Glucose Oxyhemoglobin Carboxyhemoglobin Sodium Potassium Chloride Carbon Dioxide BUN Creatinine Glucose 130 H POC Glucose Hemoglobin A1c Lactic Acid Calcium Phosphorus Magnesium Ferritin 557.5 H Total Bilirubin Direct Bilirubin AST ALT Alkaline Phosphatase Ammonia Lactate Dehydrogenase 799 H Total Creatine Kinase C-Reactive Protein 3.30 H Total Protein Albumin Hazdf-3-Hzdelojut Zrzci-2-Asvrsdzrx Beta Globulins Abnorm Protein Band 1 PEP Interpretation Triglycerides TSH Thyroxine (T4) Free T3 Index Arterial Blood Glucose Arterial Blood Ionized Calcium Immunofix Electrophor Coronavirus (PCR) Miscellaneous Test 01/22/21 01/22/21 01/22/21 11:06 11:06 11:06 WBC 19.2 H RBC 5.63 H Hgb 15.8 H Hct 49.0 H Plt Count Lymph % (Auto) Lymph # (Auto) [place] # (Auto) Seg Neutrophils % Seg Neuts % (Manual) 92.0 H Lymphocytes % (Manual) 1.0 L Nucleated RBC % 1.0 H Seg Neutrophils # Seg Neutrophils # Man 17.7 H Lymphocytes # (Manual) 0.2 L Monocytes # (Manual) 1.0 H Eosinophils # (Manual) PT INR D-Dimer Heparin Anti-Xa Level ABG pH POC ABG pCO2 POC ABG pO2 ABG pO2 ABG O2 Saturation ABG Base Excess ABG Hemoglobin ABG Oxyhemoglobin ABG Sodium ABG Potassium ABG Chloride ABG Glucose Oxyhemoglobin Carboxyhemoglobin Sodium Potassium 3.3 L Chloride Carbon Dioxide 20 L BUN 32 H Creatinine Glucose 130 H POC Glucose Hemoglobin A1c Lactic Acid 4.20 H* Calcium Phosphorus Magnesium Ferritin Total Bilirubin Direct Bilirubin AST ALT Alkaline Phosphatase Ammonia Lactate Dehydrogenase Total Creatine Kinase C-Reactive Protein Total Protein Albumin 2.9 L Fpiuq-0-Emwvecdja Qjqqb-3-Ctddhnbkm Beta Globulins Abnorm Protein Band 1 PEP Interpretation Triglycerides TSH Thyroxine (T4) Free T3 Index Arterial Blood Glucose Arterial Blood Ionized Calcium Immunofix Electrophor Coronavirus (PCR) Miscellaneous Test 01/22/21 01/22/21 01/23/21 11:06 12:03 05:29 WBC 19.0 H RBC 5.24 H Hgb 15.3 H Hct 46.0 H Plt Count Lymph % (Auto) 4.4 L Lymph # (Auto) 0.8 L [place] # (Auto) 1.2 H Seg Neutrophils % 89.1 H Seg Neuts % (Manual) Lymphocytes % (Manual) Nucleated RBC % Seg Neutrophils # 16.9 H Seg Neutrophils # Man Lymphocytes # (Manual) Monocytes # (Manual) Eosinophils # (Manual) PT INR D-Dimer Heparin Anti-Xa Level ABG pH POC ABG pCO2 30.7 L POC ABG pO2 61.4 L ABG pO2 ABG O2 Saturation ABG Base Excess ABG Hemoglobin ABG Oxyhemoglobin 90.5 L ABG Sodium ABG Potassium ABG Chloride ABG Glucose Oxyhemoglobin Carboxyhemoglobin 1.7 H Sodium Potassium Chloride Carbon Dioxide BUN Creatinine Glucose POC Glucose Hemoglobin A1c 6.2 H Lactic Acid Calcium Phosphorus Magnesium Ferritin Total Bilirubin Direct Bilirubin AST ALT Alkaline Phosphatase Ammonia Lactate Dehydrogenase Total Creatine Kinase C-Reactive Protein Total Protein Albumin Wijyn-2-Veutgudib Jjvma-8-Fnujfmpzn Beta Globulins Abnorm Protein Band 1 PEP Interpretation Triglycerides TSH Thyroxine (T4) Free T3 Index Arterial Blood Glucose Arterial Blood Ionized Calcium Immunofix Electrophor Coronavirus (PCR) Miscellaneous Test 01/23/21 01/23/21 01/23/21 05:29 09:00 16:55 WBC RBC Hgb Hct Plt Count Lymph % (Auto) Lymph # (Auto) [place] # (Auto) Seg Neutrophils % Seg Neuts % (Manual) Lymphocytes % (Manual) Nucleated RBC % Seg Neutrophils # Seg Neutrophils # Man Lymphocytes # (Manual) Monocytes # (Manual) Eosinophils # (Manual) PT INR D-Dimer Heparin Anti-Xa Level ABG pH POC ABG pCO2 POC ABG pO2 ABG pO2 ABG O2 Saturation ABG Base Excess ABG Hemoglobin ABG Oxyhemoglobin ABG Sodium ABG Potassium ABG Chloride ABG Glucose Oxyhemoglobin Carboxyhemoglobin Sodium Potassium 3.5 L Chloride Carbon Dioxide BUN 29 H 27 H Creatinine Glucose 132 H 103 H POC Glucose Hemoglobin A1c Lactic Acid Calcium Phosphorus Magnesium Ferritin Total Bilirubin Direct Bilirubin AST ALT Alkaline Phosphatase Ammonia Lactate Dehydrogenase Total Creatine Kinase C-Reactive Protein Total Protein Albumin 2.9 L 2.9 L Wvial-3-Bwgadiqwg Kmyyj-3-Yykudsqzs Beta Globulins Abnorm Protein Band 1 PEP Interpretation Triglycerides TSH Thyroxine (T4) Free T3 Index Arterial Blood Glucose Arterial Blood Ionized Calcium Immunofix Electrophor Coronavirus (PCR) Positive A Miscellaneous Test 01/24/21 01/24/21 01/24/21 05:50 20:20 20:20 WBC RBC Hgb Hct Plt Count Lymph % (Auto) Lymph # (Auto) [place] # (Auto) Seg Neutrophils % Seg Neuts % (Manual) Lymphocytes % (Manual) Nucleated RBC % Seg Neutrophils # Seg Neutrophils # Man Lymphocytes # (Manual) Monocytes # (Manual) Eosinophils # (Manual) PT INR D-Dimer Heparin Anti-Xa Level ABG pH POC ABG pCO2 POC ABG pO2 ABG pO2 ABG O2 Saturation ABG Base Excess ABG Hemoglobin ABG Oxyhemoglobin ABG Sodium ABG Potassium ABG Chloride ABG Glucose Oxyhemoglobin Carboxyhemoglobin Sodium 148 H Potassium 5.3 H D Chloride 109.3 H Carbon Dioxide BUN 26 H Creatinine 0.7 L Glucose 130 H POC Glucose Hemoglobin A1c Lactic Acid Calcium Phosphorus Magnesium Ferritin 1031.0 H Total Bilirubin Direct Bilirubin AST 45 H ALT Alkaline Phosphatase Ammonia Lactate Dehydrogenase 1511 H Total Creatine Kinase C-Reactive Protein 12.00 H Total Protein Albumin 2.9 L Rmnzp-1-Dunrrwgqg Ijbzc-8-Bzsuvgaic Beta Globulins Abnorm Protein Band 1 PEP Interpretation Triglycerides TSH Thyroxine (T4) Free T3 Index Arterial Blood Glucose Arterial Blood Ionized Calcium Immunofix Electrophor Coronavirus (PCR) Miscellaneous Test 01/24/21 01/25/21 01/25/21 20:20 06:22 06:22 WBC RBC Hgb Hct Plt Count Lymph % (Auto) Lymph # (Auto) [place] # (Auto) Seg Neutrophils % Seg Neuts % (Manual) Lymphocytes % (Manual) Nucleated RBC % Seg Neutrophils # Seg Neutrophils # Man Lymphocytes # (Manual) Monocytes # (Manual) Eosinophils # (Manual) PT INR D-Dimer > 23151 H > 84375 H Heparin Anti-Xa Level ABG pH POC ABG pCO2 POC ABG pO2 ABG pO2 ABG O2 Saturation ABG Base Excess ABG Hemoglobin ABG Oxyhemoglobin ABG Sodium ABG Potassium ABG Chloride ABG Glucose Oxyhemoglobin Carboxyhemoglobin Sodium 153 H Potassium 3.4 L D Chloride 116.1 H Carbon Dioxide 21 L BUN 27 H Creatinine Glucose 133 H POC Glucose Hemoglobin A1c Lactic Acid Calcium Phosphorus Magnesium Ferritin Total Bilirubin 1.30 H Direct Bilirubin AST 50 H ALT Alkaline Phosphatase 159 H Ammonia Lactate Dehydrogenase Total Creatine Kinase C-Reactive Protein Total Protein Albumin 2.9 L Hqerb-5-Tccvevmma Saxtd-5-Wjarisham Beta Globulins Abnorm Protein Band 1 PEP Interpretation Triglycerides TSH Thyroxine (T4) Free T3 Index Arterial Blood Glucose Arterial Blood Ionized Calcium Immunofix Electrophor Coronavirus (PCR) Miscellaneous Test 01/25/21 01/25/21 01/25/21 06:22 09:35 11:25 WBC RBC Hgb Hct Plt Count Lymph % (Auto) Lymph # (Auto) [place] # (Auto) Seg Neutrophils % Seg Neuts % (Manual) Lymphocytes % (Manual) Nucleated RBC % Seg Neutrophils # Seg Neutrophils # Man Lymphocytes # (Manual) Monocytes # (Manual) Eosinophils # (Manual) PT INR D-Dimer Heparin Anti-Xa Level ABG pH 7.453 H 7.228 L POC ABG pCO2 60.0 H POC ABG pO2 44.9 L 111.7 H ABG pO2 ABG O2 Saturation ABG Base Excess ABG Hemoglobin ABG Oxyhemoglobin 81.4 L ABG Sodium 153.1 H 150.9 H ABG Potassium 3.3 L ABG Chloride 116.0 H 117.0 H ABG Glucose 151 H 155 H Oxyhemoglobin Carboxyhemoglobin Sodium Potassium Chloride Carbon Dioxide BUN Creatinine Glucose POC Glucose Hemoglobin A1c Lactic Acid Calcium Phosphorus Magnesium Ferritin Total Bilirubin Direct Bilirubin AST ALT Alkaline Phosphatase Ammonia Lactate Dehydrogenase Total Creatine Kinase C-Reactive Protein 16.80 H Total Protein Albumin Ubipf-2-Kdulthfeb Wpbgw-4-Tqbqlllhv Beta Globulins Abnorm Protein Band 1 PEP Interpretation Triglycerides TSH Thyroxine (T4) Free T3 Index Arterial Blood Glucose 151 H 155 H Arterial Blood Ionized Calcium Immunofix Electrophor Coronavirus (PCR) Miscellaneous Test 01/25/21 01/26/21 01/26/21 21:00 07:32 07:39 WBC RBC Hgb Hct Plt Count Lymph % (Auto) Lymph # (Auto) [place] # (Auto) Seg Neutrophils % Seg Neuts % (Manual) Lymphocytes % (Manual) Nucleated RBC % Seg Neutrophils # Seg Neutrophils # Man Lymphocytes # (Manual) Monocytes # (Manual) Eosinophils # (Manual) PT INR D-Dimer Heparin Anti-Xa Level ABG pH POC ABG pCO2 POC ABG pO2 68.5 L ABG pO2 ABG O2 Saturation ABG Base Excess ABG Hemoglobin ABG Oxyhemoglobin 91.3 L ABG Sodium 151.9 H ABG Potassium ABG Chloride 117.0 H ABG Glucose 140 H Oxyhemoglobin Carboxyhemoglobin Sodium 151 H Potassium Chloride 116.7 H Carbon Dioxide 20 L BUN 59 H Creatinine 3.4 H D Glucose 121 H POC Glucose Hemoglobin A1c Lactic Acid Calcium Phosphorus Magnesium Ferritin 1921.0 H Total Bilirubin Direct Bilirubin AST 45 H ALT Alkaline Phosphatase 137 H Ammonia Lactate Dehydrogenase 1559 H Total Creatine Kinase C-Reactive Protein 20.90 H Total Protein Albumin 2.3 L Sgpxv-5-Mpomqxrls Qygno-3-Ihamwjgig Beta Globulins Abnorm Protein Band 1 PEP Interpretation Triglycerides TSH Thyroxine (T4) Free T3 Index Arterial Blood Glucose 140 H Arterial Blood Ionized Calcium Immunofix Electrophor Coronavirus (PCR) Miscellaneous Test 01/26/21 01/26/21 01/26/21 08:30 17:55 20:39 WBC RBC Hgb Hct Plt Count Lymph % (Auto) Lymph # (Auto) [place] # (Auto) Seg Neutrophils % Seg Neuts % (Manual) Lymphocytes % (Manual) Nucleated RBC % Seg Neutrophils # Seg Neutrophils # Man Lymphocytes # (Manual) Monocytes # (Manual) Eosinophils # (Manual) PT INR D-Dimer Heparin Anti-Xa Level ABG pH 7.287 L POC ABG pCO2 POC ABG pO2 ABG pO2 124.5 H ABG O2 Saturation ABG Base Excess -5.0 L ABG Hemoglobin ABG Oxyhemoglobin ABG Sodium ABG Potassium ABG Chloride ABG Glucose Oxyhemoglobin Carboxyhemoglobin Sodium 152 H Potassium 6.0 H D Chloride 117.2 H Carbon Dioxide 15 L BUN 80 H Creatinine 5.6 H D Glucose 156 H POC Glucose 141 H Hemoglobin A1c Lactic Acid Calcium 7.4 L Phosphorus Magnesium Ferritin Total Bilirubin Direct Bilirubin AST ALT Alkaline Phosphatase Ammonia Lactate Dehydrogenase Total Creatine Kinase C-Reactive Protein Total Protein Albumin Tlbka-4-Oqbnmcubh Xmwvh-8-Vsgturwxh Beta Globulins Abnorm Protein Band 1 PEP Interpretation Triglycerides TSH Thyroxine (T4) Free T3 Index Arterial Blood Glucose Arterial Blood Ionized Calcium Immunofix Electrophor Coronavirus (PCR) Miscellaneous Test 01/26/21 01/27/21 01/27/21 23:14 02:55 05:00 WBC RBC Hgb Hct Plt Count Lymph % (Auto) Lymph # (Auto) [place] # (Auto) Seg Neutrophils % Seg Neuts % (Manual) Lymphocytes % (Manual) Nucleated RBC % Seg Neutrophils # Seg Neutrophils # Man Lymphocytes # (Manual) Monocytes # (Manual) Eosinophils # (Manual) PT INR D-Dimer Heparin Anti-Xa Level ABG pH 7.215 L POC ABG pCO2 48.9 H POC ABG pO2 143.3 H ABG pO2 ABG O2 Saturation ABG Base Excess ABG Hemoglobin ABG Oxyhemoglobin ABG Sodium 150.0 H ABG Potassium 5.0 H ABG Chloride 118.0 H ABG Glucose 180 H Oxyhemoglobin Carboxyhemoglobin Sodium 154 H Potassium 5.3 H Chloride 117.2 H Carbon Dioxide 19 L BUN 92 H Creatinine 6.4 H Glucose 175 H POC Glucose 148 H Hemoglobin A1c Lactic Acid Calcium 7.9 L Phosphorus Magnesium Ferritin Total Bilirubin Direct Bilirubin AST ALT Alkaline Phosphatase Ammonia Lactate Dehydrogenase Total Creatine Kinase C-Reactive Protein Total Protein Albumin Czmgm-8-Eqgjlhohk Djfdf-8-Ncijymvxu Beta Globulins Abnorm Protein Band 1 PEP Interpretation Triglycerides TSH Thyroxine (T4) Free T3 Index Arterial Blood Glucose 180 H Arterial Blood Ionized Calcium 4.5 L Immunofix Electrophor Coronavirus (PCR) Miscellaneous Test 01/27/21 01/27/21 01/27/21 05:00 05:14 11:42 WBC RBC Hgb Hct Plt Count Lymph % (Auto) Lymph # (Auto) [place] # (Auto) Seg Neutrophils % Seg Neuts % (Manual) Lymphocytes % (Manual) Nucleated RBC % Seg Neutrophils # Seg Neutrophils # Man Lymphocytes # (Manual) Monocytes # (Manual) Eosinophils # (Manual) PT INR D-Dimer Heparin Anti-Xa Level ABG pH POC ABG pCO2 POC ABG pO2 ABG pO2 ABG O2 Saturation ABG Base Excess ABG Hemoglobin ABG Oxyhemoglobin ABG Sodium ABG Potassium ABG Chloride ABG Glucose Oxyhemoglobin Carboxyhemoglobin Sodium Potassium Chloride Carbon Dioxide BUN Creatinine Glucose POC Glucose 159 H 171 H Hemoglobin A1c Lactic Acid Calcium Phosphorus Magnesium Ferritin Total Bilirubin Direct Bilirubin AST ALT Alkaline Phosphatase Ammonia Lactate Dehydrogenase Total Creatine Kinase 258 H C-Reactive Protein Total Protein Albumin Ywhyj-2-Wrkdylvrx Upgil-6-Xqkweyerr Beta Globulins Abnorm Protein Band 1 PEP Interpretation Triglycerides TSH Thyroxine (T4) Free T3 Index Arterial Blood Glucose Arterial Blood Ionized Calcium Immunofix Electrophor Coronavirus (PCR) Miscellaneous Test 01/27/21 01/27/21 01/27/21 11:55 11:55 18:00 WBC RBC Hgb Hct Plt Count Lymph % (Auto) Lymph # (Auto) [place] # (Auto) Seg Neutrophils % Seg Neuts % (Manual) Lymphocytes % (Manual) Nucleated RBC % Seg Neutrophils # Seg Neutrophils # Man Lymphocytes # (Manual) Monocytes # (Manual) Eosinophils # (Manual) PT INR D-Dimer Heparin Anti-Xa Level ABG pH POC ABG pCO2 POC ABG pO2 ABG pO2 ABG O2 Saturation ABG Base Excess ABG Hemoglobin ABG Oxyhemoglobin ABG Sodium ABG Potassium ABG Chloride ABG Glucose Oxyhemoglobin Carboxyhemoglobin Sodium Potassium Chloride Carbon Dioxide BUN Creatinine Glucose POC Glucose 185 H Hemoglobin A1c Lactic Acid Calcium Phosphorus Magnesium Ferritin Total Bilirubin Direct Bilirubin AST ALT Alkaline Phosphatase Ammonia Lactate Dehydrogenase Total Creatine Kinase C-Reactive Protein Total Protein Albumin 2.5 L Rdctg-5-Vqbcpqhik 0.7 H Beapi-3-Lfzaphtzo 1.2 H Beta Globulins 0.7 H Abnorm Protein Band 1 0.5 H PEP Interpretation see below H Triglycerides TSH Thyroxine (T4) Free T3 Index Arterial Blood Glucose Arterial Blood Ionized Calcium Immunofix Electrophor see below H Coronavirus (PCR) Miscellaneous Test 01/28/21 01/28/21 01/28/21 04:00 04:00 10:03 WBC RBC Hgb Hct Plt Count 104 L Lymph % (Auto) Lymph # (Auto) [place] # (Auto) Seg Neutrophils % Seg Neuts % (Manual) Lymphocytes % (Manual) Nucleated RBC % Seg Neutrophils # Seg Neutrophils # Man Lymphocytes # (Manual) Monocytes # (Manual) Eosinophils # (Manual) PT INR D-Dimer Heparin Anti-Xa Level ABG pH 7.272 L POC ABG pCO2 48.4 H POC ABG pO2 ABG pO2 ABG O2 Saturation ABG Base Excess ABG Hemoglobin ABG Oxyhemoglobin ABG Sodium ABG Potassium ABG Chloride ABG Glucose 174 H Oxyhemoglobin Carboxyhemoglobin Sodium Potassium Chloride Carbon Dioxide BUN Creatinine Glucose POC Glucose Hemoglobin A1c Lactic Acid Calcium Phosphorus Magnesium Ferritin Total Bilirubin Direct Bilirubin AST ALT Alkaline Phosphatase Ammonia Lactate Dehydrogenase Total Creatine Kinase C-Reactive Protein Total Protein Albumin Agcyk-0-Shulljvke Qeoei-7-Ydplxeaap Beta Globulins Abnorm Protein Band 1 PEP Interpretation Triglycerides 369 H TSH Thyroxine (T4) Free T3 Index Arterial Blood Glucose 174 H Arterial Blood Ionized Calcium 4.3 L Immunofix Electrophor Coronavirus (PCR) Miscellaneous Test 01/28/21 01/28/21 01/28/21 10:03 10:03 10:03 WBC RBC Hgb Hct Plt Count Lymph % (Auto) Lymph # (Auto) [place] # (Auto) Seg Neutrophils % Seg Neuts % (Manual) Lymphocytes % (Manual) Nucleated RBC % Seg Neutrophils # Seg Neutrophils # Man Lymphocytes # (Manual) Monocytes # (Manual) Eosinophils # (Manual) PT 17.3 H INR 1.36 H D-Dimer Heparin Anti-Xa Level ABG pH POC ABG pCO2 POC ABG pO2 ABG pO2 ABG O2 Saturation ABG Base Excess ABG Hemoglobin ABG Oxyhemoglobin ABG Sodium ABG Potassium ABG Chloride ABG Glucose Oxyhemoglobin Carboxyhemoglobin Sodium Potassium 5.2 H Chloride Carbon Dioxide BUN 69 H Creatinine 5.6 H Glucose 220 H POC Glucose Hemoglobin A1c Lactic Acid Calcium 7.7 L Phosphorus Magnesium Ferritin Total Bilirubin Direct Bilirubin AST ALT Alkaline Phosphatase Ammonia Lactate Dehydrogenase Total Creatine Kinase C-Reactive Protein Total Protein Albumin Beoil-4-Cmhncezyp Vyqmo-7-Nntojvoqu Beta Globulins Abnorm Protein Band 1 PEP Interpretation Triglycerides TSH 0.013 L Thyroxine (T4) Free T3 Index Arterial Blood Glucose Arterial Blood Ionized Calcium Immunofix Electrophor Coronavirus (PCR) Miscellaneous Test 01/28/21 01/28/21 01/28/21 11:34 13:40 15:31 WBC RBC Hgb Hct Plt Count Lymph % (Auto) Lymph # (Auto) [place] # (Auto) Seg Neutrophils % Seg Neuts % (Manual) Lymphocytes % (Manual) Nucleated RBC % Seg Neutrophils # Seg Neutrophils # Man Lymphocytes # (Manual) Monocytes # (Manual) Eosinophils # (Manual) PT INR D-Dimer Heparin Anti-Xa Level 1.21 H ABG pH POC ABG pCO2 POC ABG pO2 ABG pO2 ABG O2 Saturation ABG Base Excess ABG Hemoglobin ABG Oxyhemoglobin ABG Sodium ABG Potassium ABG Chloride ABG Glucose Oxyhemoglobin Carboxyhemoglobin Sodium Potassium Chloride Carbon Dioxide BUN Creatinine Glucose POC Glucose 221 H Hemoglobin A1c Lactic Acid Calcium Phosphorus Magnesium 2.50 H Ferritin Total Bilirubin Direct Bilirubin AST ALT Alkaline Phosphatase Ammonia Lactate Dehydrogenase Total Creatine Kinase C-Reactive Protein Total Protein Albumin Qynlw-0-Yyhqjbhnv Fqgke-0-Redvzpynk Beta Globulins Abnorm Protein Band 1 PEP Interpretation Triglycerides TSH Thyroxine (T4) Free T3 Index Arterial Blood Glucose Arterial Blood Ionized Calcium Immunofix Electrophor Coronavirus (PCR) Miscellaneous Test 0801/29/21 01/29/21 18:02 04:00 04:30 WBC RBC Hgb Hct Plt Count Lymph % (Auto) Lymph # (Auto) [place] # (Auto) Seg Neutrophils % Seg Neuts % (Manual) Lymphocytes % (Manual) Nucleated RBC % Seg Neutrophils # Seg Neutrophils # Man Lymphocytes # (Manual) Monocytes # (Manual) Eosinophils # (Manual) PT INR D-Dimer Heparin Anti-Xa Level 0.81 H ABG pH 7.229 L POC ABG pCO2 48.8 H POC ABG pO2 ABG pO2 ABG O2 Saturation ABG Base Excess ABG Hemoglobin ABG Oxyhemoglobin ABG Sodium 135.3 L ABG Potassium 5.2 H ABG Chloride ABG Glucose 264 H Oxyhemoglobin Carboxyhemoglobin Sodium Potassium Chloride Carbon Dioxide BUN Creatinine Glucose POC Glucose 215 H Hemoglobin A1c Lactic Acid Calcium Phosphorus Magnesium Ferritin Total Bilirubin Direct Bilirubin AST ALT Alkaline Phosphatase Ammonia Lactate Dehydrogenase Total Creatine Kinase C-Reactive Protein Total Protein Albumin Bmizz-6-Wjfsqsvhf Cbvzj-8-Uylghtkly Beta Globulins Abnorm Protein Band 1 PEP Interpretation Triglycerides TSH Thyroxine (T4) Free T3 Index Arterial Blood Glucose 264 H Arterial Blood Ionized Calcium 4.0 L Immunofix Electrophor Coronavirus (PCR) Miscellaneous Test 01/29/21 01/29/21 01/29/21 13:23 17:56 23:12 WBC RBC Hgb Hct Plt Count Lymph % (Auto) Lymph # (Auto) [place] # (Auto) Seg Neutrophils % Seg Neuts % (Manual) Lymphocytes % (Manual) Nucleated RBC % Seg Neutrophils # Seg Neutrophils # Man Lymphocytes # (Manual) Monocytes # (Manual) Eosinophils # (Manual) PT INR D-Dimer Heparin Anti-Xa Level ABG pH POC ABG pCO2 POC ABG pO2 ABG pO2 ABG O2 Saturation ABG Base Excess ABG Hemoglobin ABG Oxyhemoglobin ABG Sodium ABG Potassium ABG Chloride ABG Glucose Oxyhemoglobin Carboxyhemoglobin Sodium Potassium Chloride Carbon Dioxide BUN Creatinine Glucose POC Glucose 198 H 200 H 172 H Hemoglobin A1c Lactic Acid Calcium Phosphorus Magnesium Ferritin Total Bilirubin Direct Bilirubin AST ALT Alkaline Phosphatase Ammonia Lactate Dehydrogenase Total Creatine Kinase C-Reactive Protein Total Protein Albumin [place]-1-Jlurszeof Blzyw-1-Biltnhker Beta Globulins Abnorm Protein Band 1 PEP Interpretation Triglycerides TSH Thyroxine (T4) Free T3 Index Arterial Blood Glucose Arterial Blood Ionized Calcium Immunofix Electrophor Coronavirus (PCR) Miscellaneous Test 01/29/21 01/29/21 01/30/21 Unknown Unknown 04:00 WBC RBC Hgb Hct Plt Count Lymph % (Auto) Lymph # (Auto) [place] # (Auto) Seg Neutrophils % Seg Neuts % (Manual) Lymphocytes % (Manual) Nucleated RBC % Seg Neutrophils # Seg Neutrophils # Man Lymphocytes # (Manual) Monocytes # (Manual) Eosinophils # (Manual) PT INR D-Dimer Heparin Anti-Xa Level 0.85 H ABG pH 7.304 L POC ABG pCO2 POC ABG pO2 112.8 H ABG pO2 ABG O2 Saturation ABG Base Excess ABG Hemoglobin ABG Oxyhemoglobin ABG Sodium ABG Potassium 5.2 H ABG Chloride ABG Glucose 160 H Oxyhemoglobin Carboxyhemoglobin Sodium Potassium Chloride Carbon Dioxide BUN Creatinine Glucose POC Glucose Hemoglobin A1c Lactic Acid Calcium Phosphorus Magnesium Ferritin Total Bilirubin Direct Bilirubin AST ALT Alkaline Phosphatase Ammonia Lactate Dehydrogenase Total Creatine Kinase C-Reactive Protein Total Protein Albumin Unmyd-2-Ylmjcmuov Hndqi-1-Qntlcziqt Beta Globulins Abnorm Protein Band 1 PEP Interpretation Triglycerides TSH Thyroxine (T4) Free T3 Index Arterial Blood Glucose 160 H Arterial Blood Ionized Calcium 4.1 L Immunofix Electrophor Coronavirus (PCR) Miscellaneous Test Flexitest 1 H 01/30/21 01/30/21 01/30/21 04:05 05:00 05:00 WBC 27.4 H RBC Hgb 11.6 L Hct 34.8 L Plt Count 126 L Lymph % (Auto) Lymph # (Auto) [place] # (Auto) Seg Neutrophils % Seg Neuts % (Manual) Lymphocytes % (Manual) Nucleated RBC % Seg Neutrophils # Seg Neutrophils # Man Lymphocytes # (Manual) Monocytes # (Manual) Eosinophils # (Manual) PT INR D-Dimer Heparin Anti-Xa Level ABG pH 7.288 L POC ABG pCO2 49.7 H POC ABG pO2 169.7 H ABG pO2 ABG O2 Saturation ABG Base Excess ABG Hemoglobin ABG Oxyhemoglobin 98.4 H ABG Sodium 132.5 L ABG Potassium 4.8 H ABG Chloride ABG Glucose 196 H Oxyhemoglobin Carboxyhemoglobin Sodium 136 L Potassium Chloride 97.4 L Carbon Dioxide BUN 75 H Creatinine 5.4 H Glucose 184 H POC Glucose Hemoglobin A1c Lactic Acid Calcium 7.4 L Phosphorus 8.60 H Magnesium 2.40 H Ferritin Total Bilirubin Direct Bilirubin AST ALT Alkaline Phosphatase Ammonia Lactate Dehydrogenase Total Creatine Kinase C-Reactive Protein Total Protein Albumin Nwxni-7-Pobqfygxz Jknrk-0-Owgiwxyvv Beta Globulins Abnorm Protein Band 1 PEP Interpretation Triglycerides TSH Thyroxine (T4) Free T3 Index Arterial Blood Glucose 196 H Arterial Blood Ionized Calcium 4.0 L Immunofix Electrophor Coronavirus (PCR) Miscellaneous Test 01/30/21 01/30/21 01/30/21 05:32 11:23 15:35 WBC RBC Hgb Hct Plt Count Lymph % (Auto) Lymph # (Auto) [place] # (Auto) Seg Neutrophils % Seg Neuts % (Manual) Lymphocytes % (Manual) Nucleated RBC % Seg Neutrophils # Seg Neutrophils # Man Lymphocytes # (Manual) Monocytes # (Manual) Eosinophils # (Manual) PT INR D-Dimer Heparin Anti-Xa Level ABG pH POC ABG pCO2 POC ABG pO2 ABG pO2 ABG O2 Saturation ABG Base Excess ABG Hemoglobin ABG Oxyhemoglobin ABG Sodium ABG Potassium ABG Chloride ABG Glucose Oxyhemoglobin Carboxyhemoglobin Sodium Potassium Chloride Carbon Dioxide BUN Creatinine Glucose POC Glucose 169 H 177 H Hemoglobin A1c Lactic Acid Calcium Phosphorus Magnesium Ferritin Total Bilirubin Direct Bilirubin AST ALT Alkaline Phosphatase Ammonia Lactate Dehydrogenase Total Creatine Kinase C-Reactive Protein Total Protein Albumin Jgbil-7-Hqwjqfoek Zpspb-2-Whunmswvm Beta Globulins Abnorm Protein Band 1 PEP Interpretation Triglycerides TSH Thyroxine (T4) 3.3 L Free T3 Index Arterial Blood Glucose Arterial Blood Ionized Calcium Immunofix Electrophor Coronavirus (PCR) Miscellaneous Test 01/30/21 01/30/21 01/30/21 15:35 18:13 23:49 WBC RBC Hgb Hct Plt Count Lymph % (Auto) Lymph # (Auto) [place] # (Auto) Seg Neutrophils % Seg Neuts % (Manual) Lymphocytes % (Manual) Nucleated RBC % Seg Neutrophils # Seg Neutrophils # Man Lymphocytes # (Manual) Monocytes # (Manual) Eosinophils # (Manual) PT INR D-Dimer Heparin Anti-Xa Level ABG pH POC ABG pCO2 POC ABG pO2 ABG pO2 ABG O2 Saturation ABG Base Excess ABG Hemoglobin ABG Oxyhemoglobin ABG Sodium ABG Potassium ABG Chloride ABG Glucose Oxyhemoglobin Carboxyhemoglobin Sodium Potassium Chloride Carbon Dioxide BUN Creatinine Glucose POC Glucose 123 H 143 H Hemoglobin A1c Lactic Acid Calcium Phosphorus Magnesium Ferritin Total Bilirubin Direct Bilirubin AST ALT Alkaline Phosphatase Ammonia Lactate Dehydrogenase Total Creatine Kinase C-Reactive Protein Total Protein Albumin Smfcg-2-Mluwscahw Nohtx-3-Dbiwfmmac Beta Globulins Abnorm Protein Band 1 PEP Interpretation Triglycerides TSH Thyroxine (T4) Free T3 Index 1.1 L Arterial Blood Glucose Arterial Blood Ionized Calcium Immunofix Electrophor Coronavirus (PCR) Miscellaneous Test 01/31/21 01/31/21 01/31/21 03:30 03:30 03:30 WBC 31.3 H RBC Hgb 11.4 L Hct 34.6 L Plt Count Lymph % (Auto) Lymph # (Auto) [place] # (Auto) Seg Neutrophils % Seg Neuts % (Manual) Lymphocytes % (Manual) Nucleated RBC % Seg Neutrophils # Seg Neutrophils # Man Lymphocytes # (Manual) Monocytes # (Manual) Eosinophils # (Manual) PT INR D-Dimer Heparin Anti-Xa Level ABG pH POC ABG pCO2 POC ABG pO2 ABG pO2 ABG O2 Saturation ABG Base Excess ABG Hemoglobin ABG Oxyhemoglobin ABG Sodium ABG Potassium ABG Chloride ABG Glucose Oxyhemoglobin Carboxyhemoglobin Sodium Potassium 5.3 H Chloride Carbon Dioxide BUN 111 H Creatinine 6.8 H Glucose 143 H POC Glucose Hemoglobin A1c Lactic Acid Calcium 7.3 L Phosphorus Magnesium Ferritin Total Bilirubin 1.70 H 1.60 H Direct Bilirubin 1.6 H AST 57 H 57 H ALT Alkaline Phosphatase Ammonia Lactate Dehydrogenase Total Creatine Kinase C-Reactive Protein Total Protein 5.5 L D 5.5 L Albumin 2.5 L 2.5 L Qdtux-8-Vurwfytje Wjiga-3-Chqxpnsyx Beta Globulins Abnorm Protein Band 1 PEP Interpretation Triglycerides TSH Thyroxine (T4) Free T3 Index Arterial Blood Glucose Arterial Blood Ionized Calcium Immunofix Electrophor Coronavirus (PCR) Miscellaneous Test 01/31/21 01/31/21 01/31/21 04:54 12:00 17:19 WBC RBC Hgb Hct Plt Count Lymph % (Auto) Lymph # (Auto) [place] # (Auto) Seg Neutrophils % Seg Neuts % (Manual) Lymphocytes % (Manual) Nucleated RBC % Seg Neutrophils # Seg Neutrophils # Man Lymphocytes # (Manual) Monocytes # (Manual) Eosinophils # (Manual) PT INR D-Dimer Heparin Anti-Xa Level ABG pH POC ABG pCO2 POC ABG pO2 ABG pO2 ABG O2 Saturation ABG Base Excess ABG Hemoglobin ABG Oxyhemoglobin ABG Sodium ABG Potassium ABG Chloride ABG Glucose Oxyhemoglobin Carboxyhemoglobin Sodium Potassium Chloride Carbon Dioxide BUN Creatinine Glucose POC Glucose 133 H 152 H 142 H Hemoglobin A1c Lactic Acid Calcium Phosphorus Magnesium Ferritin Total Bilirubin Direct Bilirubin AST ALT Alkaline Phosphatase Ammonia Lactate Dehydrogenase Total Creatine Kinase C-Reactive Protein Total Protein Albumin Ukidb-6-Bsvtdkaqo Fumes-9-Ikhecqevc Beta Globulins Abnorm Protein Band 1 PEP Interpretation Triglycerides TSH Thyroxine (T4) Free T3 Index Arterial Blood Glucose Arterial Blood Ionized Calcium Immunofix Electrophor Coronavirus (PCR) Miscellaneous Test 01/31/21 02/01/21 02/01/21 23:46 00:25 03:10 WBC RBC Hgb Hct Plt Count Lymph % (Auto) Lymph # (Auto) [place] # (Auto) Seg Neutrophils % Seg Neuts % (Manual) Lymphocytes % (Manual) Nucleated RBC % Seg Neutrophils # Seg Neutrophils # Man Lymphocytes # (Manual) Monocytes # (Manual) Eosinophils # (Manual) PT INR D-Dimer Heparin Anti-Xa Level 0.19 L ABG pH 7.294 L POC ABG pCO2 50.8 H POC ABG pO2 77.2 L ABG pO2 ABG O2 Saturation ABG Base Excess ABG Hemoglobin ABG Oxyhemoglobin 92.9 L ABG Sodium 131.4 L ABG Potassium 5.2 H ABG Chloride 97.0 L ABG Glucose 158 H Oxyhemoglobin Carboxyhemoglobin Sodium Potassium Chloride Carbon Dioxide BUN Creatinine Glucose POC Glucose 140 H Hemoglobin A1c Lactic Acid Calcium Phosphorus Magnesium Ferritin Total Bilirubin Direct Bilirubin AST ALT Alkaline Phosphatase Ammonia Lactate Dehydrogenase Total Creatine Kinase C-Reactive Protein Total Protein Albumin Luvze-8-Vjhtqexcf Cjraf-8-Mfphinkkl Beta Globulins Abnorm Protein Band 1 PEP Interpretation Triglycerides TSH Thyroxine (T4) Free T3 Index Arterial Blood Glucose 158 H Arterial Blood Ionized Calcium 3.9 L Immunofix Electrophor Coronavirus (PCR) Miscellaneous Test 02/01/21 02/01/21 02/01/21 04:00 04:00 05:36 WBC RBC Hgb 11.6 L Hct 34.6 L Plt Count Lymph % (Auto) Lymph # (Auto) [place] # (Auto) Seg Neutrophils % Seg Neuts % (Manual) Lymphocytes % (Manual) Nucleated RBC % Seg Neutrophils # Seg Neutrophils # Man Lymphocytes # (Manual) Monocytes # (Manual) Eosinophils # (Manual) PT INR D-Dimer Heparin Anti-Xa Level ABG pH POC ABG pCO2 POC ABG pO2 ABG pO2 ABG O2 Saturation ABG Base Excess ABG Hemoglobin ABG Oxyhemoglobin ABG Sodium ABG Potassium ABG Chloride ABG Glucose Oxyhemoglobin Carboxyhemoglobin Sodium 136 L Potassium 5.2 H Chloride 93.6 L Carbon Dioxide BUN 78 H Creatinine 5.7 H Glucose 152 H POC Glucose 167 H Hemoglobin A1c Lactic Acid Calcium 7.1 L Phosphorus Magnesium Ferritin Total Bilirubin 3.00 H Direct Bilirubin AST 117 H ALT 108 H Alkaline Phosphatase Ammonia Lactate Dehydrogenase Total Creatine Kinase C-Reactive Protein Total Protein 5.6 L Albumin 2.7 L Ljyms-9-Yrwfxssua Iranj-8-Dpvzexzjn Beta Globulins Abnorm Protein Band 1 PEP Interpretation Triglycerides TSH Thyroxine (T4) Free T3 Index Arterial Blood Glucose Arterial Blood Ionized Calcium Immunofix Electrophor Coronavirus (PCR) Miscellaneous Test 02/01/21 02/01/21 02/01/21 09:15 11:42 17:28 WBC RBC Hgb Hct Plt Count Lymph % (Auto) Lymph # (Auto) [place] # (Auto) Seg Neutrophils % Seg Neuts % (Manual) Lymphocytes % (Manual) Nucleated RBC % Seg Neutrophils # Seg Neutrophils # Man Lymphocytes # (Manual) Monocytes # (Manual) Eosinophils # (Manual) PT 15.1 H INR D-Dimer Heparin Anti-Xa Level ABG pH POC ABG pCO2 POC ABG pO2 ABG pO2 ABG O2 Saturation ABG Base Excess ABG Hemoglobin ABG Oxyhemoglobin ABG Sodium ABG Potassium ABG Chloride ABG Glucose Oxyhemoglobin Carboxyhemoglobin Sodium Potassium Chloride Carbon Dioxide BUN Creatinine Glucose POC Glucose 159 H 171 H Hemoglobin A1c Lactic Acid Calcium Phosphorus Magnesium Ferritin Total Bilirubin Direct Bilirubin AST ALT Alkaline Phosphatase Ammonia Lactate Dehydrogenase Total Creatine Kinase C-Reactive Protein Total Protein Albumin Upmgn-3-Ghibeotfb Zmnzr-8-Atbbvfudy Beta Globulins Abnorm Protein Band 1 PEP Interpretation Triglycerides TSH Thyroxine (T4) Free T3 Index Arterial Blood Glucose Arterial Blood Ionized Calcium Immunofix Electrophor Coronavirus (PCR) Miscellaneous Test 02/01/21 02/02/21 02/02/21 23:06 02:58 05:06 WBC RBC Hgb Hct Plt Count Lymph % (Auto) Lymph # (Auto) [place] # (Auto) Seg Neutrophils % Seg Neuts % (Manual) Lymphocytes % (Manual) Nucleated RBC % Seg Neutrophils # Seg Neutrophils # Man Lymphocytes # (Manual) Monocytes # (Manual) Eosinophils # (Manual) PT INR D-Dimer Heparin Anti-Xa Level ABG pH 7.208 L POC ABG pCO2 58.3 H POC ABG pO2 ABG pO2 ABG O2 Saturation ABG Base Excess ABG Hemoglobin 11.6 L ABG Oxyhemoglobin ABG Sodium 131.4 L ABG Potassium 5.6 H ABG Chloride 97.0 L ABG Glucose 155 H Oxyhemoglobin Carboxyhemoglobin Sodium Potassium Chloride Carbon Dioxide BUN Creatinine Glucose POC Glucose 155 H 134 H Hemoglobin A1c Lactic Acid Calcium Phosphorus Magnesium Ferritin Total Bilirubin Direct Bilirubin AST ALT Alkaline Phosphatase Ammonia Lactate Dehydrogenase Total Creatine Kinase C-Reactive Protein Total Protein Albumin Hisru-1-Wntmyuaeq Iolal-8-Crfgtwefn Beta Globulins Abnorm Protein Band 1 PEP Interpretation Triglycerides TSH Thyroxine (T4) Free T3 Index Arterial Blood Glucose 155 H Arterial Blood Ionized Calcium 3.9 L Immunofix Electrophor Coronavirus (PCR) Miscellaneous Test 02/02/21 02/02/21 02/02/21 11:10 16:22 17:52 WBC RBC Hgb Hct Plt Count Lymph % (Auto) Lymph # (Auto) [place] # (Auto) Seg Neutrophils % Seg Neuts % (Manual) Lymphocytes % (Manual) Nucleated RBC % Seg Neutrophils # Seg Neutrophils # Man Lymphocytes # (Manual) Monocytes # (Manual) Eosinophils # (Manual) PT INR D-Dimer Heparin Anti-Xa Level 0.10 L ABG pH POC ABG pCO2 POC ABG pO2 ABG pO2 ABG O2 Saturation ABG Base Excess ABG Hemoglobin ABG Oxyhemoglobin ABG Sodium ABG Potassium ABG Chloride ABG Glucose Oxyhemoglobin Carboxyhemoglobin Sodium Potassium Chloride Carbon Dioxide BUN Creatinine Glucose POC Glucose 179 H 170 H Hemoglobin A1c Lactic Acid Calcium Phosphorus Magnesium Ferritin Total Bilirubin Direct Bilirubin AST ALT Alkaline Phosphatase Ammonia Lactate Dehydrogenase Total Creatine Kinase C-Reactive Protein Total Protein Albumin Dkoom-5-Shpilweuw Lzvps-7-Smocggjox Beta Globulins Abnorm Protein Band 1 PEP Interpretation Triglycerides TSH Thyroxine (T4) Free T3 Index Arterial Blood Glucose Arterial Blood Ionized Calcium Immunofix Electrophor Coronavirus (PCR) Miscellaneous Test 02/02/21 02/02/21 02/02/21 23:22 23:23 Unknown WBC RBC Hgb Hct Plt Count Lymph % (Auto) Lymph # (Auto) [place] # (Auto) Seg Neutrophils % Seg Neuts % (Manual) Lymphocytes % (Manual) Nucleated RBC % Seg Neutrophils # Seg Neutrophils # Man Lymphocytes # (Manual) Monocytes # (Manual) Eosinophils # (Manual) PT INR D-Dimer Heparin Anti-Xa Level 0.20 L ABG pH POC ABG pCO2 POC ABG pO2 ABG pO2 ABG O2 Saturation ABG Base Excess ABG Hemoglobin ABG Oxyhemoglobin ABG Sodium ABG Potassium ABG Chloride ABG Glucose Oxyhemoglobin Carboxyhemoglobin Sodium Potassium 5.9 H Chloride 95.0 L Carbon Dioxide BUN 118 H Creatinine 7.2 H Glucose 152 H POC Glucose 139 H Hemoglobin A1c Lactic Acid Calcium 7.1 L Phosphorus Magnesium Ferritin Total Bilirubin 2.90 H Direct Bilirubin AST 134 H ALT 169 H Alkaline Phosphatase Ammonia Lactate Dehydrogenase Total Creatine Kinase C-Reactive Protein Total Protein 5.0 L Albumin 2.5 L Xohij-5-Goueijxbe Omovo-2-Gbudvhbmd Beta Globulins Abnorm Protein Band 1 PEP Interpretation Triglycerides TSH Thyroxine (T4) Free T3 Index Arterial Blood Glucose Arterial Blood Ionized Calcium Immunofix Electrophor Coronavirus (PCR) Miscellaneous Test 02/02/21 02/02/21 02/02/21 Unknown Unknown Unknown WBC 39.4 H RBC Hgb 10.7 L Hct 32.3 L Plt Count Lymph % (Auto) Lymph # (Auto) [place] # (Auto) Seg Neutrophils % Seg Neuts % (Manual) Lymphocytes % (Manual) Nucleated RBC % Seg Neutrophils # Seg Neutrophils # Man Lymphocytes # (Manual) Monocytes # (Manual) Eosinophils # (Manual) PT 15.1 H INR D-Dimer Heparin Anti-Xa Level ABG pH POC ABG pCO2 POC ABG pO2 ABG pO2 ABG O2 Saturation ABG Base Excess ABG Hemoglobin ABG Oxyhemoglobin ABG Sodium ABG Potassium ABG Chloride ABG Glucose Oxyhemoglobin Carboxyhemoglobin Sodium Potassium Chloride Carbon Dioxide BUN Creatinine Glucose POC Glucose Hemoglobin A1c Lactic Acid Calcium Phosphorus Magnesium Ferritin Total Bilirubin Direct Bilirubin AST ALT Alkaline Phosphatase Ammonia 83.0 H Lactate Dehydrogenase Total Creatine Kinase C-Reactive Protein Total Protein Albumin Jdibb-6-Tsekhlgwq Hsfru-9-Rrdrpczmf Beta Globulins Abnorm Protein Band 1 PEP Interpretation Triglycerides TSH Thyroxine (T4) Free T3 Index Arterial Blood Glucose Arterial Blood Ionized Calcium Immunofix Electrophor Coronavirus (PCR) Miscellaneous Test 02/02/21 02/03/21 02/03/21 Unknown 04:47 05:25 WBC 60.2 H* 55.8 H* RBC Hgb 11.0 L 10.3 L Hct 33.7 L 32.4 L Plt Count Lymph % (Auto) Lymph # (Auto) [place] # (Auto) Seg Neutrophils % Seg Neuts % (Manual) 94.0 H Lymphocytes % (Manual) 3.0 L Nucleated RBC % Seg Neutrophils # Seg Neutrophils # Man 56.6 H Lymphocytes # (Manual) Monocytes # (Manual) 1.2 H Eosinophils # (Manual) 0.6 H PT INR D-Dimer Heparin Anti-Xa Level ABG pH POC ABG pCO2 POC ABG pO2 ABG pO2 ABG O2 Saturation ABG Base Excess ABG Hemoglobin ABG Oxyhemoglobin ABG Sodium ABG Potassium ABG Chloride ABG Glucose Oxyhemoglobin Carboxyhemoglobin Sodium Potassium Chloride Carbon Dioxide BUN Creatinine Glucose POC Glucose 158 H Hemoglobin A1c Lactic Acid Calcium Phosphorus Magnesium Ferritin Total Bilirubin Direct Bilirubin AST ALT Alkaline Phosphatase Ammonia Lactate Dehydrogenase Total Creatine Kinase C-Reactive Protein Total Protein Albumin Kspee-5-Qxbninbht Tkhxy-1-Trqtvwzks Beta Globulins Abnorm Protein Band 1 PEP Interpretation Triglycerides TSH Thyroxine (T4) Free T3 Index Arterial Blood Glucose Arterial Blood Ionized Calcium Immunofix Electrophor Coronavirus (PCR) Miscellaneous Test 02/03/21 02/03/21 02/03/21 05:25 05:25 05:25 WBC RBC Hgb Hct Plt Count Lymph % (Auto) Lymph # (Auto) [place] # (Auto) Seg Neutrophils % Seg Neuts % (Manual) Lymphocytes % (Manual) Nucleated RBC % Seg Neutrophils # Seg Neutrophils # Man Lymphocytes # (Manual) Monocytes # (Manual) Eosinophils # (Manual) PT INR D-Dimer 4328.24 H Heparin Anti-Xa Level ABG pH POC ABG pCO2 POC ABG pO2 ABG pO2 ABG O2 Saturation ABG Base Excess ABG Hemoglobin ABG Oxyhemoglobin ABG Sodium ABG Potassium ABG Chloride ABG Glucose Oxyhemoglobin Carboxyhemoglobin Sodium Potassium 5.4 H 5.6 H Chloride 97.3 L Carbon Dioxide 21 L BUN 86 H 86 H Creatinine 5.8 H 5.6 H Glucose 154 H 152 H POC Glucose Hemoglobin A1c Lactic Acid Calcium 7.8 L 7.9 L Phosphorus 8.50 H Magnesium 2.50 H Ferritin Total Bilirubin 2.30 H Direct Bilirubin AST 103 H ALT 200 H Alkaline Phosphatase 135 H Ammonia Lactate Dehydrogenase 1310 H Total Creatine Kinase C-Reactive Protein 2.50 H Total Protein 5.2 L Albumin 2.2 L Qfjiy-3-Tttwltmdb Svvxf-1-Ndbhwydjs Beta Globulins Abnorm Protein Band 1 PEP Interpretation Triglycerides TSH Thyroxine (T4) Free T3 Index Arterial Blood Glucose Arterial Blood Ionized Calcium Immunofix Electrophor Coronavirus (PCR) Miscellaneous Test 02/03/21 02/03/21 02/03/21 05:25 07:35 11:35 WBC RBC Hgb Hct Plt Count Lymph % (Auto) Lymph # (Auto) [place] # (Auto) Seg Neutrophils % Seg Neuts % (Manual) Lymphocytes % (Manual) Nucleated RBC % Seg Neutrophils # Seg Neutrophils # Man Lymphocytes # (Manual) Monocytes # (Manual) Eosinophils # (Manual) PT INR D-Dimer Heparin Anti-Xa Level < 0.10 L ABG pH POC ABG pCO2 POC ABG pO2 ABG pO2 ABG O2 Saturation ABG Base Excess ABG Hemoglobin ABG Oxyhemoglobin ABG Sodium ABG Potassium ABG Chloride ABG Glucose Oxyhemoglobin Carboxyhemoglobin Sodium Potassium Chloride Carbon Dioxide BUN Creatinine Glucose POC Glucose 146 H Hemoglobin A1c Lactic Acid Calcium Phosphorus Magnesium Ferritin 2914.0 H Total Bilirubin Direct Bilirubin AST ALT Alkaline Phosphatase Ammonia Lactate Dehydrogenase Total Creatine Kinase C-Reactive Protein Total Protein Albumin Qtupq-8-Ivdspggcx Qbehv-5-Obrliqjop Beta Globulins Abnorm Protein Band 1 PEP Interpretation Triglycerides TSH Thyroxine (T4) Free T3 Index Arterial Blood Glucose Arterial Blood Ionized Calcium Immunofix Electrophor Coronavirus (PCR) Miscellaneous Test 02/03/21 02/03/21 02/04/21 17:45 23:41 04:00 WBC RBC Hgb Hct Plt Count Lymph % (Auto) Lymph # (Auto) [place] # (Auto) Seg Neutrophils % Seg Neuts % (Manual) Lymphocytes % (Manual) Nucleated RBC % Seg Neutrophils # Seg Neutrophils # Man Lymphocytes # (Manual) Monocytes # (Manual) Eosinophils # (Manual) PT INR D-Dimer Heparin Anti-Xa Level ABG pH POC ABG pCO2 POC ABG pO2 69.2 L ABG pO2 ABG O2 Saturation ABG Base Excess ABG Hemoglobin 9.4 L ABG Oxyhemoglobin 91.5 L ABG Sodium 127.7 L ABG Potassium 4.9 H ABG Chloride ABG Glucose 172 H Oxyhemoglobin Carboxyhemoglobin Sodium Potassium Chloride Carbon Dioxide BUN Creatinine Glucose POC Glucose 138 H 150 H Hemoglobin A1c Lactic Acid Calcium Phosphorus Magnesium Ferritin Total Bilirubin Direct Bilirubin AST ALT Alkaline Phosphatase Ammonia Lactate Dehydrogenase Total Creatine Kinase C-Reactive Protein Total Protein Albumin Ushri-0-Tjfiphqbb Vgmzh-9-Lyfwfmqyw Beta Globulins Abnorm Protein Band 1 PEP Interpretation Triglycerides TSH Thyroxine (T4) Free T3 Index Arterial Blood Glucose 172 H Arterial Blood Ionized Calcium 4.0 L Immunofix Electrophor Coronavirus (PCR) Miscellaneous Test 02/04/21 02/04/21 02/04/21 05:00 05:18 06:40 WBC 59.8 H* RBC 2.95 L Hgb 8.5 L Hct 26.2 L D Plt Count Lymph % (Auto) Lymph # (Auto) [place] # (Auto) Seg Neutrophils % Seg Neuts % (Manual) Lymphocytes % (Manual) Nucleated RBC % Seg Neutrophils # Seg Neutrophils # Man Lymphocytes # (Manual) Monocytes # (Manual) Eosinophils # (Manual) PT INR D-Dimer Heparin Anti-Xa Level ABG pH POC ABG pCO2 POC ABG pO2 ABG pO2 ABG O2 Saturation ABG Base Excess ABG Hemoglobin ABG Oxyhemoglobin ABG Sodium ABG Potassium ABG Chloride ABG Glucose Oxyhemoglobin Carboxyhemoglobin Sodium 133 L Potassium Chloride 93.8 L Carbon Dioxide BUN 77 H Creatinine 5.3 H Glucose 168 H POC Glucose 163 H Hemoglobin A1c Lactic Acid Calcium 7.3 L Phosphorus Magnesium Ferritin Total Bilirubin 1.40 H Direct Bilirubin AST 110 H ALT 171 H Alkaline Phosphatase 196 H Ammonia Lactate Dehydrogenase Total Creatine Kinase C-Reactive Protein Total Protein 4.7 L Albumin 2.2 L Rtkud-8-Hnpzsnevj Lrqha-2-Fqtaphrif Beta Globulins Abnorm Protein Band 1 PEP Interpretation Triglycerides TSH Thyroxine (T4) Free T3 Index Arterial Blood Glucose Arterial Blood Ionized Calcium Immunofix Electrophor Coronavirus (PCR) Miscellaneous Test 02/04/21 02/04/21 02/04/21 12:15 16:55 23:39 WBC RBC Hgb Hct Plt Count Lymph % (Auto) Lymph # (Auto) [place] # (Auto) Seg Neutrophils % Seg Neuts % (Manual) Lymphocytes % (Manual) Nucleated RBC % Seg Neutrophils # Seg Neutrophils # Man Lymphocytes # (Manual) Monocytes # (Manual) Eosinophils # (Manual) PT INR D-Dimer Heparin Anti-Xa Level ABG pH POC ABG pCO2 POC ABG pO2 ABG pO2 ABG O2 Saturation ABG Base Excess ABG Hemoglobin ABG Oxyhemoglobin ABG Sodium ABG Potassium ABG Chloride ABG Glucose Oxyhemoglobin Carboxyhemoglobin Sodium Potassium Chloride Carbon Dioxide BUN Creatinine Glucose POC Glucose 135 H 138 H 129 H Hemoglobin A1c Lactic Acid Calcium Phosphorus Magnesium Ferritin Total Bilirubin Direct Bilirubin AST ALT Alkaline Phosphatase Ammonia Lactate Dehydrogenase Total Creatine Kinase C-Reactive Protein Total Protein Albumin Cxare-1-Xadyuhmna Qarqj-5-Ugdlkhgqn Beta Globulins Abnorm Protein Band 1 PEP Interpretation Triglycerides TSH Thyroxine (T4) Free T3 Index Arterial Blood Glucose Arterial Blood Ionized Calcium Immunofix Electrophor Coronavirus (PCR) Miscellaneous Test 02/05/21 02/05/21 02/05/21 04:39 04:50 11:39 WBC RBC Hgb Hct Plt Count Lymph % (Auto) Lymph # (Auto) Wilkes # (Auto) Seg Neutrophils % Seg Neuts % (Manual) Lymphocytes % (Manual) Nucleated RBC % Seg Neutrophils # Seg Neutrophils # Man Lymphocytes # (Manual) Monocytes # (Manual) Eosinophils # (Manual) PT INR D-Dimer Heparin Anti-Xa Level ABG pH 7.203 L POC ABG pCO2 POC ABG pO2 ABG pO2 64.8 L ABG O2 Saturation 86.6 L ABG Base Excess -4.2 L ABG Hemoglobin 8.6 L ABG Oxyhemoglobin ABG Sodium ABG Potassium ABG Chloride ABG Glucose Oxyhemoglobin 84.1 L Carboxyhemoglobin Sodium Potassium Chloride Carbon Dioxide BUN Creatinine Glucose POC Glucose 116 H 168 H Hemoglobin A1c Lactic Acid Calcium Phosphorus Magnesium Ferritin Total Bilirubin Direct Bilirubin AST ALT Alkaline Phosphatase Ammonia Lactate Dehydrogenase Total Creatine Kinase C-Reactive Protein Total Protein Albumin Ikplm-[id number]-Utidmktpk Syuuy-7-Ikyoywuyf Beta Globulins Abnorm Protein Band 1 PEP Interpretation Triglycerides TSH Thyroxine (T4) Free T3 Index Arterial Blood Glucose Arterial Blood Ionized Calcium Immunofix Electrophor Coronavirus (PCR) Miscellaneous Test Chest x-ray: other (none today) Allied health notes reviewed: nursing
[2021-02-05 15:09] LABS: Calcium 7.3 mg/dL (8.4-10.2)
[2021-02-05 15:14] LABS: Hematocrit 26.5 % (35.5-45.6); Hemoglobin 8.1 gm/dl (11.8-15.2)
[2021-02-05 15:17] LABS: Albumin 2.1 g/dL (3.9-5); C-Reactive Protein 5.3 mg/dL (0.00-1.30); Calcium 7.1 mg/dL (8.4-10.2)
--- NOTE | 2021-02-05 15:38 | Progress Note ---
<KIRSTEN DIAZ - Last Filed: 02/05/21 15:43> Assessment and Plan Assessment and plan: Assessment and plan: This is a 55-year-old male with morbid obesity, former nicotine abuse and venous insufficiency who was admitted as a COVID-19 PUI with acute hypoxic respiratory failure, sepsis, multifocal pneumonia Neuro: Acute metabolic encephalopathy, hepatic encephalopathy -NH3 noted- repeat ordered -EEG completed -Avoid delirium -not waking up -neuro consult Cardio: A. fib with RVR; hypotension -Cardiology consulted, appreciate recommendations -Transitioned from IV amiodarone to p.o. amiodarone -Echocardiogram completed results -Blood pressure monitor per protocol -Wean vasopressor support for MAP goal greater than 65 -Levo as needed Respiratory: Acute hypoxic respiratory failure, Bilateral pneumothorax -Intubated -CCM consulted, patient recommendations -AM vent settings: AC/PRVC TV 500, Rate 30, PEEP 14, 100% FiO2 see RT notes for titration -surgery following for CT -CT to wall suction -Serial ABG and CXR -VAP bundle -Continuous SPO2 monitoring GI: protein isa. malnutrition, transaminitis -advance TF as tolerated -on reglan -BR: Senokot -01/30 KUB reviewed -Renal ultrasound reviewed-> shows only hepatic steatosis -02/01 lipase 46 -Trend LFTs : Acute kidney injury secondary to vasomotor nephropathy, hyperkalemia -Nephrology consulted, appreciate recommendations -Patient initiated on hemodialysis 01/27 -HD per nephrology -Strict intake and output -Avoid nephrotoxic medications-renally dose medications -trend BMP Endo: NAD; obese -SSI PRN -Avoid hypoglycemia ID: COVID-19 pneumonia, septic shock, bilateral pneumonia,? Mold in sputum, Leukocytosis -Infectious disease consulted, appreciate recommendations (signed off 01/31) -Contact/droplet isolation -Dexamethasone for 10 days -Actemra administered 01/26 -P.o. voriconazole given steroids and Actemra -Per infectious disease: Avoid ABLC given renal failure -Trend COVID-19 inflammatory markers -S/p ABX therapy for pneumonia -Monitor WBC and fever curve -trend cultures -treating for presumed cdiff given loose stool overnight - vanc PO x 10 days Heme: Elevated D-dimer, leukocytosis -Anticoagulation with heparin drip -Trend CBC -Transfuse for hemoglobin less than 7 -Lower extremity Doppler ultrasound shows no evidence of DVT The high probability of a clinically significant, sudden or life threatening deterioration of the [multi] system(s) required my full and direct attention, intervention and personal management. The aggregate critical care time was [60] minutes. This time is in addition to time spent performing reported procedures but includes the following: [x] Data Review and interpretation [x] Patient assessment and monitoring of vital signs [x] Documentation [x] Medication orders and management Disposition Plan: 60 Total Time Spent with Patient (Minutes): icu History Interval history: This is a 55-year-old male with morbid obesity venous insufficiency, former smoker who presented to the emergency department on 01/22 for SOB x4 days prior to admission and patient was diagnosed with COVID-19 at OSH on 01/16 after the patient was discharged. Patient had worsening symptoms therefore he presented to [facility]. Patient had fever, chills, headache, cough, shortness of breath, body aches, loss of taste and smell. Upon arrival of EMS patient was saturating at 60% on room air and received albuterol, magnesium, Solu-Medrol. Patient remained hypoxic in spite of being on a nonrebreather and was started on a BiPAP in the emergency department. Patient was admitted to the hospitalist service with consults to ID, pulmonology and later nephrology and cardiology. Patient admitted for acute hypoxic respiratory failure, sepsis, multifocal pneumonia, PUI for COVID-19. 02/04: Patient remains on high vent settings, family to visit tomorrow afternooon. 02/03: HD MWF, left sided chest tube placed today at bedside by [facility]. Leukocytosis noted and will monitor. Witness consent for chest tube from who wants "everything done to save his life" 02/02: vent changes made by [facility], no acute events reported overnight. A.m. CXR read as improvement to pneumothorax. No acute events reported overnight. pt has hyperkalemia today but scheduled for hd today 02/01: patient was started on trickle feeding yesterday, heparin was on hold for placement of chest tube by surgery. Today patient developed pneumothorax and chest tube was placed again by surgery at bedside. Patient tube feedings will be gradually increased to goal as tolerated. 01/31: Patient has subq air on exam, cxr shows possible apical pneumo and surgery consulted for possible chest tube placement. HD today 01/30: This morning patient is not on sedation and does not follow commands, per RN report patient does not have cough/gag. No acute events reported overnight. EEG ordered, KUB and NGT to LIS for high residuals. NH3 high-lactulose started 01/29: Patient is in acute respiratory failure on continuous BiPAP With low saturations intermittently Patient has severe Covid pneumonia, elevated D-dimers on empiric full dose anticoagulation Not a candidate for CTA chest as patient is unstable Patient is critically ill in severe distress Patient has low saturations even on continuous BiPAP May need intubation and mechanical ventilation Vital signs noted 01/28/2021 Patient intubated Sedated Same condition On pressors Poor prognosis 01/27/2021 Patient intubated Sedated On vent protocol 01/26/2021 Patient is intubated Patient is Covid positive 01/25/2021; patient for intubation and mechanical ventilation As patient is severely hypoxemic even on continuous BiPAP 01/24: Patient is severely hypoxemic requiring continuous BiPAP, with borderline O2 sats Pulmonary critical following, stat ABG If no improvement intubate as needed Patient is elevated D-dimers, in the setting of COVID-19 morbid obesity respiratory failure requiring continuous BiPAP We will treat empirically with full dose anticoagulation, check CTA chest and lower extremity venous Doppler to rule out PE and DVT. Patient is critically ill with poor prognosis Plan of care reviewed with the patient and his nurse 01/23: We will closely monitor the patient and adjust management as needed Follow khan PCR test, consult ID if needed 02-05 no acute events overnight Disposition Plan: icu Total Time Spent with Patient (Minutes): 60 History Interval history: no acute events overnight Hospitalist Physical - Constitutional Vitals: Temp Pulse Resp BP Pulse Ox 98.8 F 76 28 H 103/35 83 L 02/05/21 12:00 02/05/21 15:15 02/05/21 15:15 02/05/21 15:15 02/05/21 15:15 General appearance: Present: no acute distress, well-nourished, other (not responsive) - EENT ENT: clear oral mucosa - Neck Neck: Present: supple - Respiratory Respiratory effort: normal - Cardiovascular Rhythm: regular Heart Sounds: Present: S1 & S2 Peripheral Pulses: within normal limits - Abdominal General gastrointestinal: soft - Integumentary Integumentary: Present: clear - Psychiatric Psychiatric: other - Neurologic Neurologic: other - Allied Health Allied health notes reviewed: nursing, RT, social work, case management HEART Score - HEART Score Age: 45-65 Risk factors: 1-2 risk factors Troponin: < normal limit - Critical Actions Critical Actions: 0-3 pts:0.9-1.7%risk of adverse cardiac event.Candidate for discharge Results - Labs CBC & Chem 7: 02/05/21 14:32 02/05/21 14:32 Labs: Laboratory Last Values WBC 59.8 K/mm3 (4.5-11.0) H* 02/04/21 06:40 RBC 2.95 M/mm3 (3.65-5.03) L 02/04/21 06:40 Hgb 8.1 gm/dl (11.8-15.2) L 02/05/21 14:32 Hct 26.5 % (35.5-45.6) L 02/05/21 14:32 MCV 89 fl (84-94) 02/04/21 06:40 MCH 29 pg (28-32) 02/04/21 06:40 MCHC 32 % (32-34) 02/04/21 06:40 RDW 14.8 % (13.2-15.2) 02/04/21 06:40 Plt Count 132 K/mm3 (140-440) L 02/05/21 14:32 Lymph % (Auto) 4.4 % (13.4-35.0) L 01/23/21 05:29 [place] % (Auto) 6.4 % (0.0-7.3) 01/23/21 05:29 Lymph # (Auto) 0.8 K/mm3 (1.2-5.4) L 01/23/21 05:29 [place] # (Auto) 1.2 K/mm3 (0.0-0.8) H 01/23/21 05:29 Add Manual Diff Complete 02/02/21 Unknown Total Counted 100 02/02/21 Unknown Seg Neutrophils % Music Sound Light Technician 02/02/21 Unknown Seg Neuts % (Manual) 94.0 % (40.0-70.0) H 02/02/21 Unknown Band Neutrophils % 2.0 % 01/22/21 11:06 Lymphocytes % (Manual) 3.0 % (13.4-35.0) L 02/02/21 Unknown Monocytes % (Manual) 2.0 % (0.0-7.3) 02/02/21 Unknown Eosinophils % (Manual) 1.0 % (0.0-4.3) 02/02/21 Unknown Nucleated RBC % Not Reportable 02/02/21 Unknown Seg Neutrophils # 16.9 K/mm3 (1.8-7.7) H 01/23/21 05:29 Seg Neutrophils # Man 56.6 K/mm3 (1.8-7.7) H 02/02/21 Unknown Band Neutrophils # 0.0 K/mm3 02/02/21 Unknown Lymphocytes # (Manual) 1.8 K/mm3 (1.2-5.4) 02/02/21 Unknown Abs React Lymphs (Man) 0.0 K/mm3 02/02/21 Unknown Monocytes # (Manual) 1.2 K/mm3 (0.0-0.8) H 02/02/21 Unknown Eosinophils # (Manual) 0.6 K/mm3 (0.0-0.4) H 02/02/21 Unknown Basophils # (Manual) 0.0 K/mm3 (0.0-0.1) 02/02/21 Unknown Metamyelocytes # 0.0 K/mm3 02/02/21 Unknown Myelocytes # 0.0 K/mm3 02/02/21 Unknown Promyelocytes # 0.0 K/mm3 02/02/21 Unknown Blast Cells # 0.0 K/mm3 02/02/21 Unknown WBC Morphology Not Reportable 02/02/21 Unknown Hypersegmented Neuts Not Reportable 02/02/21 Unknown Hyposegmented Neuts Not Reportable 02/02/21 Unknown Hypogranular Neuts Not Reportable 02/02/21 Unknown Smudge Cells Not Reportable 02/02/21 Unknown Toxic Granulation Not Reportable 02/02/21 Unknown Toxic Vacuolation Not Reportable 02/02/21 Unknown Dohle Bodies Not Reportable 02/02/21 Unknown Pelger-Huet Anomaly Not Reportable 02/02/[address] Not Reportable 02/02/21 Unknown Platelet Estimate Not Reportable 02/02/21 Unknown Clumped Platelets Not Reportable 02/02/21 Unknown Plt Clumps, EDTA Not Reportable 02/02/21 Unknown Large Platelets Not Reportable 02/02/21 Unknown Giant Platelets Not Reportable 02/02/21 Unknown Platelet Satelliting Not Reportable 02/02/21 Unknown Plt Morphology Comment Not Reportable 02/02/21 Unknown RBC Morphology Normal 02/02/21 Unknown Dimorphic RBCs Not Reportable 02/02/21 Unknown Polychromasia Not Reportable 02/02/21 Unknown Hypochromasia Not Reportable 02/02/21 Unknown Poikilocytosis Not Reportable 02/02/21 Unknown Anisocytosis Not Reportable 02/02/21 Unknown Microcytosis Not Reportable 02/02/21 Unknown Macrocytosis Not Reportable 02/02/21 Unknown Spherocytes Not Reportable 02/02/21 Unknown Pappenheimer Bodies Not Reportable 02/02/21 Unknown Sickle Cells Not Reportable 02/02/21 Unknown Target Cells Not Reportable 02/02/21 Unknown Tear Drop Cells Not Reportable 02/02/21 Unknown Ovalocytes Not Reportable 02/02/21 Unknown Helmet Cells Not Reportable 02/02/21 Unknown [place] Bodies Not Reportable 02/02/21 Unknown [place] Rings Not Reportable 02/02/21 Unknown [place] Cells Not Reportable 02/02/21 Unknown Bite Cells Not Reportable 02/02/21 Unknown Crenated Cell Not Reportable 02/02/21 Unknown Elliptocytes Not Reportable 02/02/21 Unknown Acanthocytes (Spur) Not Reportable 02/02/21 Unknown Rouleaux Not Reportable 02/02/21 Unknown Hemoglobin C Crystals Not Reportable 02/02/21 Unknown Schistocytes Not Reportable 02/02/21 Unknown Malaria parasites Not Reportable 02/02/21 Unknown Lloyd Bodies Not Reportable 02/02/21 Unknown Hem Pathologist Commnt No 02/02/21 Unknown PT 15.1 Sec. (12.2-14.9) H 02/02/21 Unknown INR 1.13 (0.87-1.13) 02/02/21 Unknown APTT 29.2 Sec. (24.2-36.6) 01/28/21 10:03 D-Dimer 3359.01 ng/mlDDU (0-234) H 02/05/21 14:32 Heparin Anti-Xa Level 0.20 U.I./ml (0.3-0.7) L 02/05/21 14:32 ABG pH 7.203 pH Units (7.350-7.450) L 02/05/21 04:39 POC ABG pCO2 47.3 mmHg (32.0-48.0) 02/04/21 04:00 ABG pCO2 62.3 mm Hg 02/05/21 04:39 POC ABG pO2 69.2 mmHg (83-108) L 02/04/21 04:00 ABG pO2 64.8 mm Hg (80.0-90.0) L 02/05/21 04:39 POC ABG HCO3 24.3 02/04/21 04:00 ABG HCO3 24.0 mmol/L (20.0-26.0) 02/05/21 04:39 ABG O2 Saturation 86.6 % (95.0-99.0) L 02/05/21 04:39 ABG O2 Content 10.3 (0.0-44) 02/05/21 04:39 POC ABG Base Excess -1.7 02/04/21 04:00 ABG Base Excess -4.2 mmol/L (-2.0-3.0) L 02/05/21 04:39 ABG Hemoglobin 8.6 gm/dl (14.0-18.0) L 02/05/21 04:39 ABG Oxyhemoglobin 91.5 (94-98) L 02/04/21 04:00 ABG Carboxyhemoglobin 2.1 % (0.0-5.0) 02/05/21 04:39 ABG Methemoglobin 0.6 % (0.0-1.5) 02/05/21 04:39 ABG Sodium 127.7 mmol/L (136.0-145.0) L 02/04/21 04:00 ABG Potassium 4.9 mmol/L (3.40-4.50) H 02/04/21 04:00 ABG Chloride 98.0 mmol/L (98-107) 02/04/21 04:00 ABG Glucose 172 mg/dL (65-95) H 02/04/21 04:00 Oxyhemoglobin 84.1 % (95.0-99.0) L 02/05/21 04:39 Carboxyhemoglobin 1.0 (0.5-1.5) 02/04/21 04:00 FiO2 100 % 02/05/21 04:39 FiO2 % 100.0 02/04/21 04:00 Sodium 128 mmol/L (137-145) L 02/05/21 14:32 Sodium 129 mmol/L (137-145) L 02/05/21 14:32 Potassium 5.5 mmol/L (3.6-5.0) H 02/05/21 14:32 Potassium 5.5 mmol/L (3.6-5.0) H 02/05/21 14:32 Chloride 91.2 mmol/L (98-107) L 02/05/21 14:32 Chloride 91.3 mmol/L (98-107) L 02/05/21 14:32 Carbon Dioxide 22 mmol/L (22-30) 02/05/21 14:32 Carbon Dioxide 23 mmol/L (22-30) 02/05/21 14:32 Anion Gap 19 mmol/L 02/05/21 14:32 Anion Gap 21 mmol/L 02/05/21 14:32 BUN 95 mg/dL (9-20) H 02/05/21 14:32 BUN 97 mg/dL (9-20) H 02/05/21 14:32 Creatinine 6.2 mg/dL (0.8-1.3) H 02/05/21 14:32 Creatinine 6.4 mg/dL (0.8-1.3) H 02/05/21 14:32 Estimated GFR 9 ml/min 02/05/21 14:32 Estimated GFR 10 ml/min 02/05/21 14:32 BUN/Creatinine Ratio 15 % 02/05/21 14:32 BUN/Creatinine Ratio 16 % 02/05/21 14:32 Glucose 153 mg/dL (75-100) H 02/05/21 14:32 Glucose 155 mg/dL (75-100) H 02/05/21 14:32 POC Glucose 168 mg/dL (70-105) H 02/05/21 11:39 Hemoglobin A1c 6.2 % (4-6) H 01/22/21 11:06 Lactic Acid 4.20 mmol/L (0.7-2.0) H* 01/22/21 11:06 Calcium 7.1 mg/dL (8.4-10.2) L 02/05/21 14:32 Calcium 7.3 mg/dL (8.4-10.2) L 02/05/21 14:32 Phosphorus 8.50 mg/dL (2.5-4.5) H 02/03/21 05:25 Magnesium 2.50 mg/dL (1.7-2.3) H 02/03/21 05:25 Ferritin 2914.0 ng/mL (30.0-300.0) H 02/03/21 05:25 Total Bilirubin 1.20 mg/dL (0.1-1.2) 02/05/21 14:32 Direct Bilirubin 1.6 mg/dL (0-0.2) H 01/31/21 03:30 Indirect Bilirubin 0.0 mg/dL 01/31/21 03:30 AST 70 units/L (5-40) H 02/05/21 14:32 ALT 130 units/L (7-56) H 02/05/21 14:32 Alkaline Phosphatase 205 units/L (35-129) H 02/05/21 14:32 Ammonia 94.0 umol/L (25-60) H 02/05/21 14:32 Lactate Dehydrogenase 1181 units/L (91-180) H 02/05/21 14:32 Total Creatine Kinase 258 units/L (55-170) H 01/27/21 05:00 C-Reactive Protein 5.30 mg/dL (0.00-1.30) H 02/05/21 14:32 Serum Total Protein 7.2 g/dL (6.1-8.1) 01/27/21 11:55 Total Protein 4.9 g/dL (6.3-8.2) L 02/05/21 14:32 Albumin 2.1 g/dL (3.9-5) L 02/05/21 14:32 Albumin/Globulin Ratio 0.8 % 02/05/21 14:32 Omfmn-1-Ojbiwrcgm 0.7 g/dL (0.2-0.3) H 01/27/21 11:55 Qyfou-8-Qqaijvlqa 1.2 g/dL (0.5-0.9) H 01/27/21 11:55 Beta Globulins 0.7 g/dL (0.2-0.5) H 01/27/21 11:55 Gamma Globulins 1.6 g/dL (0.8-1.7) 01/27/21 11:55 Abnorm Protein Band 1 0.5 g/dL H 01/27/21 11:55 PEP Interpretation see below H 01/27/21 11:55 Triglycerides 369 mg/dL (2-149) H 01/28/21 04:00 Lipase 46 units/L (13-60) 02/01/21 04:00 Procalcitonin 2.11 ng/mL (<0.15) 01/25/21 06:22 TSH 0.013 mlU/mL (0.270-4.200) L 01/28/21 10:03 Thyroxine (T4) 3.3 ug/dL (4.0-12.0) L 01/30/21 15:35 Free T3 Index 1.1 pg/mL (2.3-4.2) L 01/30/21 15:35 Arterial Blood Glucose 172 mg/dL (65-95) H 02/04/21 04:00 Arterial Blood Ionized Calcium 4.0 mg/dL (4.6-5.3) L 02/04/21 04:00 Random Vancomycin 13.1 ug/mL (0-40.0) 02/05/21 14:32 Immunofix Electrophor see below H 01/27/21 11:55 ANURAG Screen Negative (Negative) 01/27/21 11:55 Proteinase 3 (PR3) Ab <1.0 AI (<1.0) 01/27/21 11:55 Myeloperoxidase Ab <1.0 AI (<1.0) 01/27/21 11:55 Complement C3 105 mg/dL (82-185) 01/27/21 11:55 Complement C4 17 mg/dL (15-53) 01/27/21 11:55 Coronavirus (PCR) Positive (Negative) A 01/23/21 09:00 Hepatitis A IgM Ab Non-reactive (NonReactive) 01/27/21 11:41 Hep Bs Antigen Nonreactive (Negative) 01/27/21 11:41 Hep B Core IgM Ab Non-reactive (NonReactive) 01/27/21 11:41 Hepatitis C Antibody Non-reactive (NonReactive) 01/27/21 11:41 Miscellaneous Test Flexitest 1 H 01/29/21 Unknown Microbiology: Microbiology 02/03/21 10:12 Urine,Catheterized - Indwelling Catheter Urine Culture - Final NO GROWTH AFTER 48 HOURS 02/03/21 08:44 Peripheral/Venous Blood Culture - Preliminary NO GROWTH AFTER 48 HOURS 02/03/21 08:44 Peripheral/Venous Blood Culture - Preliminary NO GROWTH AFTER 48 HOURS Ramirez/IV: Voiding Method Incontinent Active Medications - Current Medications Current Medications: Generic Name Dose Route Start Last Admin Trade Name Freq PRN Reason Stop Dose Admin Albumin Human 25 gm 01/27/21 09:35 Albumin Human 25% (25 Gm/100 Ml) Inj IV MELECIO PRN Hypotension Amiodarone HCl 200 mg 01/30/21 10:00 02/05/21 10:53 Amiodarone 200 Mg Tab PO 200 mg DAILY JACK Administration Lipase/Protease/Amylase 1 each 01/27/21 11:37 Lipase 10,500/Protease 25,000/Amylase 43,750 (Units) Dr Cap FEEDTUBE PRN PRN For Clogged Feeding Tube Ascorbic Acid 500 mg 02/02/21 11:00 02/05/21 10:53 Ascorbic Acid 500 Mg Tab PO 500 mg BID JACK Administration Cholecalciferol 5,000 unit 02/02/21 11:00 02/05/21 10:53 Cholecalciferol (Vit D3) 5,000 Unit Tab PO 5,000 unit DAILY JACK Administration Dextrose 50 ml 01/29/21 12:24 Dextrose 50% In Water (25gm) 50 Ml Syringe IV Q30MIN PRN Hypoglycemia Protocol Famotidine 20 mg 01/27/21 10:00 02/05/21 10:53 Famotidine 20 Mg/2 Ml Inj IV 20 mg DAILY JACK Administration Fentanyl 50 mcg 02/03/21 15:20 Fentanyl 100 Mcg/2 Ml Inj IV Q10MIN PRN ANALGESIA Heparin Sodium (Porcine) 5,000 unit 01/28/21 09:27 Heparin 10,000 Units/10 Ml Vial IV Q6H PRN Anti-Xa Assay < 0.1 units/ml Hydrophilic Ointment 1 applic 01/25/21 13:27 Lip Therapy Vaseline TP Q2HR PRN Dry Lips Norepinephrine 4 mg in 250 mls @ 7.5 mls/hr 01/25/21 17:04 02/05/21 05:43 Levophed Drip 4 Mg/Ns 250 Ml IV 6 mcg/min TITR JACK 22.5 mls/hr Administration Protocol 2 MCG/MIN Sodium Chloride 100 mls @ 999 mls/hr 01/27/21 09:35 Nacl 0.9% IV MELECIO PRN Hypotension Vasopressin 20 unit/ Sodium 101 mls @ 9.09 mls/hr 01/28/21 07:00 01/30/21 08:55 Chloride IV Infused TITR JACK Titration Protocol 0.03 UNITS/MIN Heparin Sodium/Sodium Chloride 25,000 unit in 500 mls @ 30 mls/hr 01/28/21 11:00 02/05/21 11:08 Heparin/ 0.45% Nacl-25,000 Unit/500 Ml IV 1,500 units/hr TITR JACK 30 mls/hr Administration Protocol 1,500 UNITS/HR Cefepime HCl 1 gm in 100 mls @ 200 mls/hr 02/02/21 18:00 02/04/21 17:45 Cefepime/Ns 1 Gm/100 Ml IV 02/06/21 18:29 200 mls/hr QPM JACK Administration Protocol Fentanyl Citrate 2,000 mcg in 100 mls @ 6.4 mls/hr 02/03/21 16:00 02/04/21 06:36 Fentanyl Drip Premix IV 1 mcg/kg/hr TITR JACK 6.4 mls/hr Administration Protocol 1 MCG/KG/HR Insulin Human Regular 0 units 01/29/21 13:00 02/05/21 11:52 Insulin Regular, Human 100 Units/1 Ml SUB-Q 1 units Q6HR JACK Administration Protocol Metoclopramide HCl 10 mg 02/02/21 14:00 02/05/21 05:21 Metoclopramide 10 Mg/2 Ml Inj IV 10 mg Q8H JACK Administration Multi-Ingred Cream/Lotion/Oil/Oint 1 applic 01/25/21 13:27 Mineral Oil/Petrolatum, White Ophth Oint 3.5 Gm OU Q4HR PRN Dry Eye(s) Ondansetron HCl 4 mg 01/22/21 23:03 Ondansetron 4 Mg/2 Ml Inj IV Q8H PRN Nausea And Vomiting Senna/Docusate Sodium 1 tab 01/25/21 22:00 02/05/21 10:54 Sennosides/Docusate Sodium 8.6/50 Mg Tab FEEDTUBE Not Given BID JACK Simple Syrup 15 ml 01/27/21 11:37 Simple Syrup 15 Ml FEEDTUBE PRN PRN Hypoglycemia Simple Syrup 30 ml 01/27/21 11:37 Simple Syrup 15 Ml FEEDTUBE PRN PRN Hypoglycemia Sodium Bicarbonate 325 mg 01/27/21 11:37 Sodium Bicarbonate 325 Mg Tab FEEDTUBE PRN PRN For Clogged Feeding Tube Sodium Chloride 10 ml 01/22/21 23:45 02/05/21 10:54 Sodium Chloride 0.9% 10 Ml Flush Syringe IV 10 ml BID JACK Administration Sodium Chloride 10 ml 01/22/21 23:03 Sodium Chloride 0.9% 10 Ml Flush Syringe IV PRN PRN LINE FLUSH Vancomycin HCl 250 mg 02/05/21 13:00 Vancomycin 250 Mg/10 Ml Oral Liqd PO 02/15/21 06:01 Q6HR JACK Protocol Voriconazole 300 mg 01/29/21 11:00 02/05/21 10:53 Voriconazole 200 Mg Tab PO 300 mg Q12HR JACK Administration Zinc Sulfate 220 mg 02/02/21 11:00 02/05/21 10:53 Zinc Sulfate 220 Mg Cap PO 220 mg BID JACK Administration Nutrition/Malnutrition Assess - Dietary Evaluation Nutrition/Malnutrition Findings: Nutrition Notes Start: 01/24/21 13:25 Freq: Status: Active Protocol: Document 02/05/21 10:43 (Rec: 02/05/21 10:53 [id number]) Nutrition Notes Initial or Follow up Reassessment Current Diagnosis Sepsis,Respiratory Failure, Malnutrition Other Pertinent Diagnosis covid-19, pneumonia Current Diet Nepro 1.8 at 30 ml/hr Labs/Tests 02/04: Na 133 BUN 77 Cr 5.3 Pertinent Medications Levophed Reglan Height 5 ft 6 in Weight 128 kg [place] Body Weight (kg) 64.54 BMI 45.5 Weight Status Morbidly Obese Subjective/Other Information Pt suffered code blue this AM. Per chart, pt TF remains running at 30 ml/hr. Percent of energy/protein needs met: 72%/36% Burn Absent Trauma Absent GI Symptoms None Current % PO Negligible Minimum of two criteria No physical signs of malnutrition #1 Nutrition Diagnosis Inadequate oral intake Diagnosis Progress(for reassessment Continues documentation) Is patient on ventilator? Yes Is Patient Ambulatory and/or Out of Bed No REE-([facility]-confined to bed) 2484.852 Kcal/Kg value to use for calculation 14 Approximate Energy Requirements Using 1792 kcal/Kg Calculation Used for Recommendations Kcal/kg Additional Notes Protein needs: up to 161 (up to 2.5 g/kgIBW) fluid needs: 1ml/kcal or per MD order Nutrition Intervention Change Diet Order: Increase TF Nutrition Support: Nepro at 40 ml/hr with a free water flush of 175 ml q4h Kcal 1,728 Protein (gm) 78 Fluid (mL) 698 Goal #1 Meet at least 75% of kcal and meet protein needs as best as possible via TF Anticipated Discharge Needs: Unable to determine at this time Follow-Up By: 02/07/21 Additional Comments F/u: TF rate and tolerance - Attestation Statement I have reviewed and agreed w/ Malnutrition eval & tx plan: Yes <STAR CHRISTY - Last Filed: 02/05/21 17:34> History Interval history: I saw and evaluated the patient. Discussed with the nurse practitioner and agree with their findings and plan as documented in this note. Hospitalist Physical - Constitutional Vitals: Temp Pulse Resp BP Pulse Ox 98.8 F 76 28 H 103/35 83 L 02/05/21 12:00 02/05/21 15:15 02/05/21 15:15 02/05/21 15:15 02/05/21 15:15 Results - Labs CBC & Chem 7: 02/05/21 14:32 02/05/21 14:32 Labs: Laboratory Last Values WBC 59.8 K/mm3 (4.5-11.0) H* 02/04/21 06:40 RBC 2.95 M/mm3 (3.65-5.03) L 02/04/21 06:40 Hgb 8.1 gm/dl (11.8-15.2) L 02/05/21 14:32 Hct 26.5 % (35.5-45.6) L 02/05/21 14:32 MCV 89 fl (84-94) 02/04/21 06:40 MCH 29 pg (28-32) 02/04/21 06:40 MCHC 32 % (32-34) 02/04/21 06:40 RDW 14.8 % (13.2-15.2) 02/04/21 06:40 Plt Count 132 K/mm3 (140-440) L 02/05/21 14:32 Lymph % (Auto) 4.4 % (13.4-35.0) L 01/23/21 05:29 [place] % (Auto) 6.4 % (0.0-7.3) 01/23/21 05:29 Lymph # (Auto) 0.8 K/mm3 (1.2-5.4) L 01/23/21 05:29 [place] # (Auto) 1.2 K/mm3 (0.0-0.8) H 01/23/21 05:29 Add Manual Diff Complete 02/02/21 Unknown Total Counted 100 02/02/21 Unknown Seg Neutrophils % Music Sound Light Technician 02/02/21 Unknown Seg Neuts % (Manual) 94.0 % (40.0-70.0) H 02/02/21 Unknown Band Neutrophils % 2.0 % 01/22/21 11:06 Lymphocytes % (Manual) 3.0 % (13.4-35.0) L 02/02/21 Unknown Monocytes % (Manual) 2.0 % (0.0-7.3) 02/02/21 Unknown Eosinophils % (Manual) 1.0 % (0.0-4.3) 02/02/21 Unknown Nucleated RBC % Not Reportable 02/02/21 Unknown Seg Neutrophils # 16.9 K/mm3 (1.8-7.7) H 01/23/21 05:29 Seg Neutrophils # Man 56.6 K/mm3 (1.8-7.7) H 02/02/21 Unknown Band Neutrophils # 0.0 K/mm3 02/02/21 Unknown Lymphocytes # (Manual) 1.8 K/mm3 (1.2-5.4) 02/02/21 Unknown Abs React Lymphs (Man) 0.0 K/mm3 02/02/21 Unknown Monocytes # (Manual) 1.2 K/mm3 (0.0-0.8) H 02/02/21 Unknown Eosinophils # (Manual) 0.6 K/mm3 (0.0-0.4) H 02/02/21 Unknown Basophils # (Manual) 0.0 K/mm3 (0.0-0.1) 02/02/21 Unknown Metamyelocytes # 0.0 K/mm3 02/02/21 Unknown Myelocytes # 0.0 K/mm3 02/02/21 Unknown Promyelocytes # 0.0 K/mm3 02/02/21 Unknown Blast Cells # 0.0 K/mm3 02/02/21 Unknown WBC Morphology Not Reportable 02/02/21 Unknown Hypersegmented Neuts Not Reportable 02/02/21 Unknown Hyposegmented Neuts Not Reportable 02/02/21 Unknown Hypogranular Neuts Not Reportable 02/02/21 Unknown Smudge Cells Not Reportable 02/02/21 Unknown Toxic Granulation Not Reportable 02/02/21 Unknown Toxic Vacuolation Not Reportable 02/02/21 Unknown Dohle Bodies Not Reportable 02/02/21 Unknown Pelger-Huet Anomaly Not Reportable 02/02/[address] Rod[address] Not Reportable 02/02/21 Unknown Platelet Estimate Not Reportable 02/02/21 Unknown Clumped Platelets Not Reportable 02/02/21 Unknown Plt Clumps, EDTA Not Reportable 02/02/21 Unknown Large Platelets Not Reportable 02/02/21 Unknown Giant Platelets Not Reportable 02/02/21 Unknown Platelet Satelliting Not Reportable 02/02/21 Unknown Plt Morphology Comment Not Reportable 02/02/21 Unknown RBC Morphology Normal 02/02/21 Unknown Dimorphic RBCs Not Reportable 02/02/21 Unknown Polychromasia Not Reportable 02/02/21 Unknown Hypochromasia Not Reportable 02/02/21 Unknown Poikilocytosis Not Reportable 02/02/21 Unknown Anisocytosis Not Reportable 02/02/21 Unknown Microcytosis Not Reportable 02/02/21 Unknown Macrocytosis Not Reportable 02/02/21 Unknown Spherocytes Not Reportable 02/02/21 Unknown Pappenheimer Bodies Not Reportable 02/02/21 Unknown Sickle Cells Not Reportable 02/02/21 Unknown Target Cells Not Reportable 02/02/21 Unknown Tear Drop Cells Not Reportable 02/02/21 Unknown Ovalocytes Not Reportable 02/02/21 Unknown Helmet Cells Not Reportable 02/02/21 Unknown [place] Bodies Not Reportable 02/02/21 Unknown [place] Rings Not Reportable 02/02/21 Unknown Blanco Cells Not Reportable 02/02/21 Unknown Bite Cells Not Reportable 02/02/21 Unknown Crenated Cell Not Reportable 02/02/21 Unknown Elliptocytes Not Reportable 02/02/21 Unknown Acanthocytes (Spur) Not Reportable 02/02/21 Unknown Rouleaux Not Reportable 02/02/21 Unknown Hemoglobin C Crystals Not Reportable 02/02/21 Unknown Schistocytes Not Reportable 02/02/21 Unknown Malaria parasites Not Reportable 02/02/21 Unknown Lloyd Bodies Not Reportable 02/02/21 Unknown Hem Pathologist Commnt No 02/02/21 Unknown PT 15.1 Sec. (12.2-14.9) H 02/02/21 Unknown INR 1.13 (0.87-1.13) 02/02/21 Unknown APTT 29.2 Sec. (24.2-36.6) 01/28/21 10:03 D-Dimer 3359.01 ng/mlDDU (0-234) H 02/05/21 14:32 Heparin Anti-Xa Level 0.20 U.I./ml (0.3-0.7) L 02/05/21 14:32 ABG pH 7.203 pH Units (7.350-7.450) L 02/05/21 04:39 POC ABG pCO2 47.3 mmHg (32.0-48.0) 02/04/21 04:00 ABG pCO2 62.3 mm Hg 02/05/21 04:39 POC ABG pO2 69.2 mmHg (83-108) L 02/04/21 04:00 ABG pO2 64.8 mm Hg (80.0-90.0) L 02/05/21 04:39 POC ABG HCO3 24.3 02/04/21 04:00 ABG HCO3 24.0 mmol/L (20.0-26.0) 02/05/21 04:39 ABG O2 Saturation 86.6 % (95.0-99.0) L 02/05/21 04:39 ABG O2 Content 10.3 (0.0-44) 02/05/21 04:39 POC ABG Base Excess -1.7 02/04/21 04:00 ABG Base Excess -4.2 mmol/L (-2.0-3.0) L 02/05/21 04:39 ABG Hemoglobin 8.6 gm/dl (14.0-18.0) L 02/05/21 04:39 ABG Oxyhemoglobin 91.5 (94-98) L 02/04/21 04:00 ABG Carboxyhemoglobin 2.1 % (0.0-5.0) 02/05/21 04:39 ABG Methemoglobin 0.6 % (0.0-1.5) 02/05/21 04:39 ABG Sodium 127.7 mmol/L (136.0-145.0) L 02/04/21 04:00 ABG Potassium 4.9 mmol/L (3.40-4.50) H 02/04/21 04:00 ABG Chloride 98.0 mmol/L (98-107) 02/04/21 04:00 ABG Glucose 172 mg/dL (65-95) H 02/04/21 04:00 Oxyhemoglobin 84.1 % (95.0-99.0) L 02/05/21 04:39 Carboxyhemoglobin 1.0 (0.5-1.5) 02/04/21 04:00 FiO2 100 % 02/05/21 04:39 FiO2 % 100.0 02/04/21 04:00 Sodium 128 mmol/L (137-145) L 02/05/21 14:32 Sodium 129 mmol/L (137-145) L 02/05/21 14:32 Potassium 5.5 mmol/L (3.6-5.0) H 02/05/21 14:32 Potassium 5.5 mmol/L (3.6-5.0) H 02/05/21 14:32 Chloride 91.2 mmol/L (98-107) L 02/05/21 14:32 Chloride 91.3 mmol/L (98-107) L 02/05/21 14:32 Carbon Dioxide 22 mmol/L (22-30) 02/05/21 14:32 Carbon Dioxide 23 mmol/L (22-30) 02/05/21 14:32 Anion Gap 19 mmol/L 02/05/21 14:32 Anion Gap 21 mmol/L 02/05/21 14:32 BUN 95 mg/dL (9-20) H 02/05/21 14:32 BUN 97 mg/dL (9-20) H 02/05/21 14:32 Creatinine 6.2 mg/dL (0.8-1.3) H 02/05/21 14:32 Creatinine 6.4 mg/dL (0.8-1.3) H 02/05/21 14:32 Estimated GFR 9 ml/min 02/05/21 14:32 Estimated GFR 10 ml/min 02/05/21 14:32 BUN/Creatinine Ratio 15 % 02/05/21 14:32 BUN/Creatinine Ratio 16 % 02/05/21 14:32 Glucose 153 mg/dL (75-100) H 02/05/21 14:32 Glucose 155 mg/dL (75-100) H 02/05/21 14:32 POC Glucose 132 mg/dL (70-105) H 02/05/21 17:07 Hemoglobin A1c 6.2 % (4-6) H 01/22/21 11:06 Lactic Acid 4.20 mmol/L (0.7-2.0) H* 01/22/21 11:06 Calcium 7.1 mg/dL (8.4-10.2) L 02/05/21 14:32 Calcium 7.3 mg/dL (8.4-10.2) L 02/05/21 14:32 Phosphorus 8.50 mg/dL (2.5-4.5) H 02/03/21 05:25 Magnesium 2.50 mg/dL (1.7-2.3) H 02/03/21 05:25 Ferritin 2914.0 ng/mL (30.0-300.0) H 02/03/21 05:25 Total Bilirubin 1.20 mg/dL (0.1-1.2) 02/05/21 14:32 Direct Bilirubin 1.6 mg/dL (0-0.2) H 01/31/21 03:30 Indirect Bilirubin 0.0 mg/dL 01/31/21 03:30 AST 70 units/L (5-40) H 02/05/21 14:32 ALT 130 units/L (7-56) H 02/05/21 14:32 Alkaline Phosphatase 205 units/L (35-129) H 02/05/21 14:32 Ammonia 94.0 umol/L (25-60) H 02/05/21 14:32 Lactate Dehydrogenase 1181 units/L (91-180) H 02/05/21 14:32 Total Creatine Kinase 258 units/L (55-170) H 01/27/21 05:00 C-Reactive Protein 5.30 mg/dL (0.00-1.30) H 02/05/21 14:32 Serum Total Protein 7.2 g/dL (6.1-8.1) 01/27/21 11:55 Total Protein 4.9 g/dL (6.3-8.2) L 02/05/21 14:32 Albumin 2.1 g/dL (3.9-5) L 02/05/21 14:32 Albumin/Globulin Ratio 0.8 % 02/05/21 14:32 Erfzn-8-Aopyxefbr 0.7 g/dL (0.2-0.3) H 01/27/21 11:55 Raimh-5-Bxekzsriw 1.2 g/dL (0.5-0.9) H 01/27/21 11:55 Beta Globulins 0.7 g/dL (0.2-0.5) H 01/27/21 11:55 Gamma Globulins 1.6 g/dL (0.8-1.7) 01/27/21 11:55 Abnorm Protein Band 1 0.5 g/dL H 01/27/21 11:55 PEP Interpretation see below H 01/27/21 11:55 Triglycerides 369 mg/dL (2-149) H 01/28/21 04:00 Lipase 46 units/L (13-60) 02/01/21 04:00 Procalcitonin 2.11 ng/mL (<0.15) 01/25/21 06:22 TSH 0.013 mlU/mL (0.270-4.200) L 01/28/21 10:03 Thyroxine (T4) 3.3 ug/dL (4.0-12.0) L 01/30/21 15:35 Free T3 Index 1.1 pg/mL (2.3-4.2) L 01/30/21 15:35 Arterial Blood Glucose 172 mg/dL (65-95) H 02/04/21 04:00 Arterial Blood Ionized Calcium 4.0 mg/dL (4.6-5.3) L 02/04/21 04:00 Random Vancomycin 13.1 ug/mL (0-40.0) 02/05/21 14:32 Immunofix Electrophor see below H 01/27/21 11:55 ANURAG Screen Negative (Negative) 01/27/21 11:55 Proteinase 3 (PR3) Ab <1.0 AI (<1.0) 01/27/21 11:55 Myeloperoxidase Ab <1.0 AI (<1.0) 01/27/21 11:55 Complement C3 105 mg/dL (82-185) 01/27/21 11:55 Complement C4 17 mg/dL (15-53) 01/27/21 11:55 Coronavirus (PCR) Positive (Negative) A 01/23/21 09:00 Hepatitis A IgM Ab Non-reactive (NonReactive) 01/27/21 11:41 Hep Bs Antigen Nonreactive (Negative) 01/27/21 11:41 Hep B Core IgM Ab Non-reactive (NonReactive) 01/27/21 11:41 Hepatitis C Antibody Non-reactive (NonReactive) 01/27/21 11:41 Miscellaneous Test Flexitest 1 H 01/29/21 Unknown Microbiology: Microbiology 02/03/21 10:12 Urine,Catheterized - Indwelling Catheter Urine Culture - Lizet l NO GROWTH AFTER 48 HOURS 02/03/21 08:44 Peripheral/Venous Blood Culture - Preliminary NO GROWTH AFTER 48 HOURS 02/03/21 08:44 Peripheral/Venous Blood Culture - Preliminary NO GROWTH AFTER 48 HOURS Ramirez/IV: Voiding Method Incontinent Active Medications - Current Medications Current Medications: Generic Name Dose Route Start Last Admin Trade Name Freq PRN Reason Stop Dose Admin Albumin Human 25 gm 01/27/21 09:35 Albumin Human 25% (25 Gm/100 Ml) Inj IV MELECIO PRN Hypotension Amiodarone HCl 200 mg 01/30/21 10:00 02/05/21 10:53 Amiodarone 200 Mg Tab PO 200 mg DAILY JACK Administration Lipase/Protease/Amylase 1 each 01/27/21 11:37 Lipase 10,500/Protease 25,000/Amylase 43,750 (Units) Dr Singer FEEDTUBE PRN PRN For Clogged Feeding Tube Ascorbic Acid 500 mg 02/02/21 11:00 02/05/21 10:53 Ascorbic Acid 500 Mg Tab PO 500 mg BID JACK Administration Cholecalciferol 5,000 unit 02/02/21 11:00 02/05/21 10:53 Cholecalciferol (Vit D3) 5,000 Unit Tab PO 5,000 unit DAILY JACK Administration Dextrose 50 ml 01/29/21 12:24 Dextrose 50% In Water (25gm) 50 Ml Syringe IV Q30MIN PRN Hypoglycemia Protocol Famotidine 20 mg 01/27/21 10:00 02/05/21 10:53 Famotidine 20 Mg/2 Ml Inj IV 20 mg DAILY JACK Administration Fentanyl 50 mcg 02/03/21 15:20 Fentanyl 100 Mcg/2 Ml Inj IV Q10MIN PRN ANALGESIA Heparin Sodium (Porcine) 5,000 unit 01/28/21 09:27 Heparin 10,000 Units/10 Ml Vial IV Q6H PRN Anti-Xa Assay < 0.1 units/ml Hydrophilic Ointment 1 applic 01/25/21 13:27 Lip Therapy Vaseline TP Q2HR PRN Dry Lips Norepinephrine 4 mg in 250 mls @ 7.5 mls/hr 01/25/21 17:04 02/05/21 05:43 Levophed Drip 4 Mg/Ns 250 Ml IV 6 mcg/min TITR JACK 22.5 mls/hr Administration Protocol 2 MCG/MIN Sodium Chloride 100 mls @ 999 mls/hr 01/27/21 09:35 Nacl 0.9% IV MELECIO PRN Hypotension Vasopressin 20 unit/ Sodium 101 mls @ 9.09 mls/hr 01/28/21 07:00 01/30/21 08:55 Chloride IV Infused TITR JACK Titration Protocol 0.03 UNITS/MIN Heparin Sodium/Sodium Chloride 25,000 unit in 500 mls @ 30 mls/hr 01/28/21 11:00 02/05/21 16:33 Heparin/ 0.45% Nacl-25,000 Unit/500 Ml IV 1,600 units/hr TITR JACK 32 mls/hr Titration Protocol 1,500 UNITS/HR Cefepime HCl 1 gm in 100 mls @ 200 mls/hr 02/02/21 18:00 02/04/21 17:45 Cefepime/Ns 1 Gm/100 Ml IV 02/06/21 18:29 200 mls/hr QPM JACK Administration Protocol Fentanyl Citrate 2,000 mcg in 100 mls @ 6.4 mls/hr 02/03/21 16:00 02/04/21 06:36 Fentanyl Drip Premix IV 1 mcg/kg/hr TITR JACK 6.4 mls/hr Administration Protocol 1 MCG/KG/HR Insulin Human Regular 0 units 01/29/21 13:00 02/05/21 11:52 Insulin Regular, Human 100 Units/1 Ml SUB-Q 1 units Q6HR JACK Administration Protocol Metoclopramide HCl 10 mg 02/02/21 14:00 02/05/21 16:38 Metoclopramide 10 Mg/2 Ml Inj IV 10 mg Q8H JACK Administration Multi-Ingred Cream/Lotion/Oil/Oint 1 applic 01/25/21 13:27 Mineral Oil/Petrolatum, White Ophth Oint 3.5 Gm OU Q4HR PRN Dry Eye(s) Ondansetron HCl 4 mg 01/22/21 23:03 Ondansetron 4 Mg/2 Ml Inj IV Q8H PRN Nausea And Vomiting Senna/Docusate Sodium 1 tab 01/25/21 22:00 02/05/21 10:54 Sennosides/Docusate Sodium 8.6/50 Mg Tab FEEDTUBE Not Given BID JACK Simple Syrup 15 ml 01/27/21 11:37 Simple Syrup 15 Ml FEEDTUBE PRN PRN Hypoglycemia Simple Syrup 30 ml 01/27/21 11:37 Simple Syrup 15 Ml FEEDTUBE PRN PRN Hypoglycemia Sodium Bicarbonate 325 mg 01/27/21 11:37 Sodium Bicarbonate 325 Mg Tab FEEDTUBE PRN PRN For Clogged Feeding Tube Sodium Chloride 10 ml 01/22/21 23:45 02/05/21 10:54 Sodium Chloride 0.9% 10 Ml Flush Syringe IV 10 ml BID JACK Administration Sodium Chloride 10 ml 01/22/21 23:03 Sodium Chloride 0.9% 10 Ml Flush Syringe IV PRN PRN LINE FLUSH Vancomycin HCl 250 mg 02/05/21 13:00 02/05/21 16:38 Vancomycin 250 Mg/10 Ml Oral Liqd PO 02/15/21 06:01 250 mg Q6HR JACK Administration Protocol Voriconazole 300 mg 01/29/21 11:00 02/05/21 10:53 Voriconazole 200 Mg Tab PO 300 mg Q12HR JACK Administration Zinc Sulfate 220 mg 02/02/21 11:00 02/05/21 10:53 Zinc Sulfate 220 Mg Cap PO 220 mg BID JACK Administration Nutrition/Malnutrition Assess - Dietary Evaluation Nutrition/Malnutrition Findings: Nutrition Notes Start: 01/24/21 13:25 Freq: Status: Active Protocol: Document 02/05/21 10:43 KAMERON (Rec: 02/05/21 10:53 KAMERON [id number]) Nutrition Notes Initial or Follow up Reassessment Current Diagnosis Sepsis,Respiratory Failure, Malnutrition Other Pertinent Diagnosis covid-19, pneumonia Current Diet Nepro 1.8 at 30 ml/hr Labs/Tests 02/04: Na 133 BUN 77 Cr 5.3 Pertinent Medications Levophed Reglan Height 5 ft 6 in Weight 128 kg [place] Body Weight (kg) 64.54 BMI 45.5 Weight Status Morbidly Obese Subjective/Other Information Pt suffered code blue this AM. Per chart, pt TF remains running at 30 ml/hr. Percent of energy/protein needs met: 72%/36% Burn Absent Trauma Absent GI Symptoms None Current % PO Negligible Minimum of two criteria No physical signs of malnutrition #1 Nutrition Diagnosis Inadequate oral intake Diagnosis Progress(for reassessment Continues documentation) Is patient on ventilator? Yes Is Patient Ambulatory and/or Out of Bed No REE-([place]-confined to bed) 2484.852 Kcal/Kg value to use for calculation 14 Approximate Energy Requirements Using 1792 kcal/Kg Calculation Used for Recommendations Kcal/kg Additional Notes Protein needs: up to 161 (up to 2.5 g/kgIBW) fluid needs: 1ml/kcal or per MD order Nutrition Intervention Change Diet Order: Increase TF Nutrition Support: Nepro at 40 ml/hr with a free water flush of 175 ml q4h Kcal 1,728 Protein (gm) 78 Fluid (mL) 698 Goal #1 Meet at least 75% of kcal and meet protein needs as best as possible via TF Anticipated Discharge Needs: Unable to determine at this time Follow-Up By: 02/07/21 Additional Comments F/u: TF rate and tolerance
[2021-02-05] MEDS: VANCOMYCIN 250 MG/10 ML ORAL LIQD PO SCH ×2 (16:38→18:52)
[2021-02-05] MEDS: CEFEPIME/NS 1 GM/100 ML 1 GM/100 ML BAG IV SCH (18:52)
[2021-02-06] MEDS: VANCOMYCIN 250 MG/10 ML ORAL LIQD PO SCH ×3 (00:40→18:35)
[2021-02-06] MEDS: INSULIN REGULAR, HUMAN 100 UNITS/1 ML SUB-Q SCH ×4 (06:00→19:14)
--- NOTE | 2021-02-06 06:21 | XRay Report ---
CHEST 1 VIEW 02/06/2021 5:08 AM INDICATION / CLINICAL INFORMATION: Pneumothorax. COMPARISON: 02/04/2021 FINDINGS: SUPPORT DEVICES: Unchanged. HEART / MEDIASTINUM: No significant abnormality. LUNGS / PLEURA: Lung volumes have diminished. Worsening bilateral infiltrates. Bilateral pneumothorac es remain left greater than right. These are mildly increased in, but remains small/moderate. ADDITIONAL FINDINGS: No significant additional findings. IMPRESSION: Interval worsening. Signer Name: Luis Daniel Frost MD Signed: 02/06/2021 6:17 AM Workstation Name: [id number]
[2021-02-06] MEDS: NORepinephrine/NS 4 MG-250 ML 4 MG/250 ML BAG IV SCH (06:44)
[2021-02-06] MEDS: HEPARIN/ 0.45% NACL DRIP 25,000 UNIT/500 ML BAG IV SCH ×2 (06:46→21:30)
[2021-02-06 07:07] LABS: Hematocrit 24.9 % (35.5-45.6); Hemoglobin 7.8 gm/dl (11.8-15.2); Mean Corpuscular HGB Conc 31 % (32-34); Mean Corpuscular Volume 92 fl (84-94); Platelet Count 124 K/mm3 (140-440); Red Blood Count 2.72 M/mm3 (3.65-5.03); Red Cell Distribution Width 15.4 % (13.2-15.2)
[2021-02-06] MEDS ORDERED: ALBUMIN HUMAN 25% (25 GM/100 ML) INJ IV PRN (08:45)
[2021-02-06] MEDS ORDERED: SODIUM CHLORIDE 0.9% 100 ML IV PRN (08:45)
[2021-02-06] MEDS: METOCLOPRAMIDE 10 MG/2 ML INJ IV SCH ×2 (09:58→18:35)
[2021-02-06] MEDS: CHOLECALCIFEROL (VIT D3) 5,000 UNIT TAB PO SCH (09:59)
[2021-02-06] MEDS: ASCORBIC ACID 500 MG TAB PO SCH ×2 (09:59→21:30)
[2021-02-06] MEDS: FAMOTIDINE 20 MG/2 ML INJ IV SCH (09:59)
[2021-02-06] MEDS ORDERED: VANCOMYCIN 500 MG in SODIUM CHLORIDE 0.9% 100 ML IV ONE (10:00)
[2021-02-06] MEDS: ZINC SULFATE 220 MG CAP PO SCH ×2 (10:15→21:30)
[2021-02-06] MEDS: NORepinephrine/NS 8 MG-250 ML 8 MG/250 ML INFUS..BTL IV SCH ×2 (10:25→21:29)
--- NOTE | 2021-02-06 10:40 | Progress Note ---
Assessment and Plan Acute Respiratory Failure COVID-19 PNA Septic Shock * Patient intubated. ID following * Wean pressors as tolerated SEDRICK (initiated on dialysis) * Nephrology following SVT Sinus Rhythm PAF with RVR * Code blue was called on patient yesterday. Per documentation ACLS protocol was followed and patient received CPR, 1 atropine, and 1 bicarb. Patient was then found to be SVT and was then given 6 mg of adenosine and later 10 mg of Cardizem. ROSC achieved * Patient still currently sinus 80s on monitor. * Echo 01/29/2021- Normal EF. Technically difficult study, no interpretable images were seen. * Continue anticoagulation with IV heparin gtt for now. * Continue Amio 200mg PO daily Will continue to follow. Pt seen in conjunction with Dr. Bryson, who agrees with the assessment and plan of care. - Patient Problems (1) Acute respiratory failure due to COVID-19 Current Visit: Yes Status: Acute (2) Atrial fibrillation with RVR Current Visit: Yes Status: Acute (3) Hypotension Current Visit: Yes Status: Acute (4) Morbid obesity with BMI of 40.0-44.9, adult Current Visit: Yes Status: Acute (5) Multifocal pneumonia Current Visit: Yes Status: Acute (6) Sepsis Current Visit: Yes Status: Acute (7) Chronic venous insufficiency Current Visit: Yes Status: Chronic Subjective Date of service: 02/06/21 Principal diagnosis: Ac hypoxemic resp failure; COVID-19; Pneumonia; Sepsis; Morbid obesity Interval history: Patient remain intubated. sinus 80s monitor Objective Last Vital Signs Temp 97.4 F L 02/06/21 09:29 Pulse 84 02/06/21 09:50 Resp 32 H 02/06/21 09:50 BP 110/35 02/06/21 09:50 Pulse Ox 92 02/06/21 09:50 - Physical Examination General: Other (intubated) HEENT: Positive: Normocephaly Neck: Positive: trachea midline. Negative: JVD/HJR Cardiac: Positive: Reg Rate and Rhythm Lungs: Positive: Ventilated Respirations Neuro: Positive: Other (intubated) Abdomen: Positive: Soft Skin: Negative: Rash Musculoskeletal: No Fluid Collection Extremities: Present: lower extr. pulses, edema, Other (chronic changes) - Labs and Meds Cardiac Enzymes 02/05/21 02/05/21 Range/Units 14:32 14:32 AST 70 H (5-40) units/L Lactate Dehydrogenase 1181 H (91-180) units/L CBC 02/05/21 02/06/21 Range/Units 14:32 06:40 WBC 59.7 H* (4.5-11.0) K/mm3 RBC 2.72 L (3.65-5.03) M/mm3 Hgb 8.1 L 7.8 L (11.8-15.2) gm/dl Hct 26.5 L 24.9 L (35.5-45.6) % Plt Count 132 L 124 L (140-440) K/mm3 Comprehensive Metabolic Panel 02/05/21 02/05/21 Range/Units 14:32 14:32 Sodium 129 L 128 L (137-145) mmol/L Potassium 5.5 H 5.5 H (3.6-5.0) mmol/L Chloride 91.3 L 91.2 L (98-107) mmol/L Carbon Dioxide 22 23 (22-30) mmol/L BUN 95 H 97 H (9-20) mg/dL Creatinine 6.4 H 6.2 H (0.8-1.3) mg/dL Glucose 153 H 155 H (75-100) mg/dL Calcium 7.1 L 7.3 L (8.4-10.2) mg/dL AST 70 H (5-40) units/L ALT 130 H (7-56) units/L Alkaline Phosphatase 205 H (35-129) units/L Total Protein 4.9 L (6.3-8.2) g/dL Albumin 2.1 L (3.9-5) g/dL - Imaging and Cardiology EKG: report reviewed, image reviewed Echo: report reviewed - Telemetry EKG Rhythm: Sinus Rhythm - EKG Sinus rhythms and dysrhythmias: sinus rhythm Repolarization changes or abnormalities: nonspecific abnormality, ST segment, and/or T wave - Allied health notes Allied health notes reviewed: nursing
--- NOTE | 2021-02-06 10:46 | Progress Note ---
Assessment and Plan Assessment and plan: Assessment and plan: This is a 55-year-old male with morbid obesity, former nicotine abuse and venous insufficiency who was admitted as a COVID-19 PUI with acute hypoxic respiratory failure, sepsis, multifocal pneumonia Neuro: Acute metabolic encephalopathy, hepatic encephalopathy -Trending ammonia -100 -EEG completed -Avoid delirium -not waking up -neuro consult Cardio: A. fib with RVR; hypotension -Cardiology consulted, appreciate recommendations -Transitioned from IV amiodarone to p.o. amiodarone -Echocardiogram completed ee results -Blood pressure monitor per protocol -Wean vasopressor support for MAP goal greater than 65 -Levo as needed Respiratory: Acute hypoxic respiratory failure, Bilateral pneumothorax with large airleak on the right -Intubated -CCM consulted, patient recommendations -AM vent settings: AC/PRVC TV 500, Rate 30, PEEP 14, 100% FiO2 see RT notes for titration -surgery following for CT -CT to wall suction - large airleak on the right -Serial ABG and CXR -VAP bundle -Continuous SPO2 monitoring GI: protein isa. malnutrition, transaminitis -advance TF as tolerated -on reglan -BR: Senokot -01/30 KUB reviewed -Renal ultrasound reviewed-> shows only hepatic steatosis -02/01 lipase 46 -Trend LFTs : Acute kidney injury secondary to vasomotor nephropathy, hyperkalemia -Nephrology consulted, appreciate recommendations -Patient initiated on hemodialysis 01/27 -HD per nephrology -HD today -Strict intake and output -Avoid nephrotoxic medications-renally dose medications -trend BMP Endo: NAD; obese -SSI PRN -Avoid hypoglycemia ID: COVID-19 pneumonia, septic shock, bilateral pneumonia,? Mold in sputum, Leukocytosis -Infectious disease consulted, appreciate recommendations (signed off 01/31) -Contact/droplet isolation -Dexamethasone for 10 days -Actemra administered 01/26 -P.o. voriconazole given steroids and Actemra -Per infectious disease: Avoid ABLC given renal failure -Trend COVID-19 inflammatory markers -S/p ABX therapy for pneumonia -Monitor WBC and fever curve -trend cultures -treating for presumed cdiff given loose stool overnight - vanc PO x 10 days Heme: Elevated D-dimer, leukocytosis -Anticoagulation with heparin drip -Trend CBC -Transfuse for hemoglobin less than 7 -Lower extremity Doppler ultrasound shows no evidence of DVT 1530 PT NOW A DNR. The high probability of a clinically significant, sudden or life threatening deterioration of the [multi] system(s) required my full and direct attention, intervention and personal management. The aggregate critical care time was [60] minutes. This time is in addition to time spent performing reported procedures but includes the following: [x] Data Review and interpretation [x] Patient assessment and monitoring of vital signs [x] Documentation [x] Medication orders and management Disposition Plan: 60 Total Time Spent with Patient (Minutes): icu History Interval history: This is a 55-year-old male with morbid obesity venous insufficiency, former smoker who presented to the emergency department on 01/22 for SOB x4 days prior to admission and patient was diagnosed with COVID-19 at OSH on 01/16 after the patient was discharged. Patient had worsening symptoms therefore he presented to [facility]. Patient had fever, chills, headache, cough, shortness of breath, body aches, loss of taste and smell. Upon arrival of EMS patient was saturating at 60% on room air and received albuterol, magnesium, Solu-Medrol. Patient remained hypoxic in spite of being on a nonrebreather and was started on a BiPAP in the emergency department. Patient was admitted to the hospitalist service with consults to ID, pulmonology and later nephrology and cardiology. Patient admitted for acute hypoxic respiratory failure, sepsis, multifocal pneumonia, PUI for COVID-19. 02/04: Patient remains on high vent settings, family to visit tomorrow afternooon. 02/03: HD MWF, left sided chest tube placed today at bedside by [facility]. Leukocytosis noted and will monitor. Witness consent for chest tube from who wants "everything done to save his life" 02/02: vent changes made by [facility], no acute events reported overnight. A.m. CXR read as improvement to pneumothorax. No acute events reported overnight. pt has hyperkalemia today but scheduled for hd today 02/01: patient was started on trickle feeding yesterday, heparin was on hold for placement of chest tube by surgery. Today patient developed pneumothorax and chest tube was placed again by surgery at bedside. Patient tube feedings will be gradually increased to goal as tolerated. 01/31: Patient has subq air on exam, cxr shows possible apical pneumo and surgery consulted for possible chest tube placement. HD today 01/30: This morning patient is not on sedation and does not follow commands, per RN report patient does not have cough/gag. No acute events reported overnight. EEG ordered, KUB and NGT to LIS for high residuals. NH3 high-lactulose started 01/29: Patient is in acute respiratory failure on continuous BiPAP With low saturations intermittently Patient has severe Covid pneumonia, elevated D-dimers on empiric full dose anticoagulation Not a candidate for CTA chest as patient is unstable Patient is critically ill in severe distress Patient has low saturations even on continuous BiPAP May need intubation and mechanical ventilation Vital signs noted 01/28/2021 Patient intubated Sedated Same condition On pressors Poor prognosis 01/27/2021 Patient intubated Sedated On vent protocol 01/26/2021 Patient is intubated Patient is Covid positive 01/25/2021; patient for intubation and mechanical ventilation As patient is severely hypoxemic even on continuous BiPAP 01/24: Patient is severely hypoxemic requiring continuous BiPAP, with borderline O2 sats Pulmonary critical following, stat ABG If no improvement intubate as needed Patient is elevated D-dimers, in the setting of COVID-19 morbid obesity respiratory failure requiring continuous BiPAP We will treat empirically with full dose anticoagulation, check CTA chest and lower extremity venous Doppler to rule out PE and DVT. Patient is critically ill with poor prognosis Plan of care reviewed with the patient and his nurse 01/23: We will closely monitor the patient and adjust management as needed Follow khan PCR test, consult ID if needed 02-05 no acute events overnight 02-06 DNR Disposition Plan: icu Total Time Spent with Patient (Minutes): 60 History Interval history: no acute events overnight Hospitalist Physical - Constitutional Vitals: Temp Pulse Resp BP Pulse Ox 97.4 F L 82 32 H 120/51 92 02/06/21 09:29 02/06/21 10:30 02/06/21 09:50 02/06/21 10:30 02/06/21 09:50 General appearance: Present: no acute distress, well-nourished - EENT Eyes: Present: PERRL - Neck Neck: Present: supple - Respiratory Respiratory effort: normal - Cardiovascular Rhythm: regular Heart Sounds: Present: S1 & S2 - Extremities Extremity abnormal: edema - Abdominal General gastrointestinal: soft - Integumentary Integumentary: Present: clear, warm - Psychiatric Psychiatric: other - Neurologic Neurologic: other - Allied Health Allied health notes reviewed: nursing, RT, social work, case management HEART Score - HEART Score Age: 45-65 Risk factors: 1-2 risk factors Troponin: < normal limit - Critical Actions Critical Actions: 0-3 pts:0.9-1.7%risk of adverse cardiac event.Candidate for discharge Results - Labs CBC & Chem 7: 02/06/21 06:40 02/05/21 14:32 Labs: Laboratory Last Values WBC 59.7 K/mm3 (4.5-11.0) H* 02/06/21 06:40 RBC 2.72 M/mm3 (3.65-5.03) L 02/06/21 06:40 Hgb 7.8 gm/dl (11.8-15.2) L 02/06/21 06:40 Hct 24.9 % (35.5-45.6) L 02/06/21 06:40 MCV 92 fl (84-94) 02/06/21 06:40 MCH 29 pg (28-32) 02/06/21 06:40 MCHC 31 % (32-34) L 02/06/21 06:40 RDW 15.4 % (13.2-15.2) H 02/06/21 06:40 Plt Count 124 K/mm3 (140-440) L 02/06/21 06:40 Lymph % (Auto) 4.4 % (13.4-35.0) L 01/23/21 05:29 Holt % (Auto) 6.4 % (0.0-7.3) 01/23/21 05:29 Lymph # (Auto) 0.8 K/mm3 (1.2-5.4) L 01/23/21 05:29 Holt # (Auto) 1.2 K/mm3 (0.0-0.8) H 01/23/21 05:29 Add Manual Diff Complete 02/02/21 Unknown Total Counted 100 02/02/21 Unknown Seg Neutrophils % Gore Cutter 02/02/21 Unknown Seg Neuts % (Manual) 94.0 % (40.0-70.0) H 02/02/21 Unknown Band Neutrophils % 2.0 % 01/22/21 11:06 Lymphocytes % (Manual) 3.0 % (13.4-35.0) L 02/02/21 Unknown Monocytes % (Manual) 2.0 % (0.0-7.3) 02/02/21 Unknown Eosinophils % (Manual) 1.0 % (0.0-4.3) 02/02/21 Unknown Nucleated RBC % Not Reportable 02/02/21 Unknown Seg Neutrophils # 16.9 K/mm3 (1.8-7.7) H 01/23/21 05:29 Seg Neutrophils # Man 56.6 K/mm3 (1.8-7.7) H 02/02/21 Unknown Band Neutrophils # 0.0 K/mm3 02/02/21 Unknown Lymphocytes # (Manual) 1.8 K/mm3 (1.2-5.4) 02/02/21 Unknown Abs React Lymphs (Man) 0.0 K/mm3 02/02/21 Unknown Monocytes # (Manual) 1.2 K/mm3 (0.0-0.8) H 02/02/21 Unknown Eosinophils # (Manual) 0.6 K/mm3 (0.0-0.4) H 02/02/21 Unknown Basophils # (Manual) 0.0 K/mm3 (0.0-0.1) 02/02/21 Unknown Metamyelocytes # 0.0 K/mm3 02/02/21 Unknown Myelocytes # 0.0 K/mm3 02/02/21 Unknown Promyelocytes # 0.0 K/mm3 02/02/21 Unknown Blast Cells # 0.0 K/mm3 02/02/21 Unknown WBC Morphology Not Reportable 02/02/21 Unknown Hypersegmented Neuts Not Reportable 02/02/21 Unknown Hyposegmented Neuts Not Reportable 02/02/21 Unknown Hypogranular Neuts Not Reportable 02/02/21 Unknown Smudge Cells Not Reportable 02/02/21 Unknown Toxic Granulation Not Reportable 02/02/21 Unknown Toxic Vacuolation Not Reportable 02/02/21 Unknown Dohle Bodies Not Reportable 02/02/21 Unknown Pelger-Huet Anomaly Not Reportable 02/02/[address] Not Reportable 02/02/21 Unknown Platelet Estimate Not Reportable 02/02/21 Unknown Clumped Platelets Not Reportable 02/02/21 Unknown Plt Clumps, EDTA Not Reportable 02/02/21 Unknown Large Platelets Not Reportable 02/02/21 Unknown Giant Platelets Not Reportable 02/02/21 Unknown Platelet Satelliting Not Reportable 02/02/21 Unknown Plt Morphology Comment Not Reportable 02/02/21 Unknown RBC Morphology Normal 02/02/21 Unknown Dimorphic RBCs Not Reportable 02/02/21 Unknown Polychromasia Not Reportable 02/02/21 Unknown Hypochromasia Not Reportable 02/02/21 Unknown Poikilocytosis Not Reportable 02/02/21 Unknown Anisocytosis Not Reportable 02/02/21 Unknown Microcytosis Not Reportable 02/02/21 Unknown Macrocytosis Not Reportable 02/02/21 Unknown Spherocytes Not Reportable 02/02/21 Unknown Pappenheimer Bodies Not Reportable 02/02/21 Unknown Sickle Cells Not Reportable 02/02/21 Unknown Target Cells Not Reportable 02/02/21 Unknown Tear Drop Cells Not Reportable 02/02/21 Unknown Ovalocytes Not Reportable 02/02/21 Unknown Helmet Cells Not Reportable 02/02/21 Unknown [place] Bodies Not Reportable 02/02/21 Unknown [place] Rings Not Reportable 02/02/21 Unknown [place] Cells Not Reportable 02/02/21 Unknown Bite Cells Not Reportable 02/02/21 Unknown Crenated Cell Not Reportable 02/02/21 Unknown Elliptocytes Not Reportable 02/02/21 Unknown Acanthocytes (Spur) Not Reportable 02/02/21 Unknown Rouleaux Not Reportable 02/02/21 Unknown Hemoglobin C Crystals Not Reportable 02/02/21 Unknown Schistocytes Not Reportable 02/02/21 Unknown Malaria parasites Not Reportable 02/02/21 Unknown Lloyd Bodies Not Reportable 02/02/21 Unknown Hem Pathologist Commnt No 02/02/21 Unknown PT 15.1 Sec. (12.2-14.9) H 02/02/21 Unknown INR 1.13 (0.87-1.13) 02/02/21 Unknown APTT 29.2 Sec. (24.2-36.6) 01/28/21 10:03 D-Dimer 3359.01 ng/mlDDU (0-234) H 02/05/21 14:32 Heparin Anti-Xa Level 0.20 U.I./ml (0.3-0.7) L 02/05/21 14:32 ABG pH 7.139 (7.320-7.450) L 02/06/21 05:00 POC ABG pCO2 64.9 mmHg (32.0-48.0) H 02/06/21 05:00 ABG pCO2 62.3 mm Hg 02/05/21 04:39 POC ABG pO2 51.5 mmHg (83-108) L 02/06/21 05:00 ABG pO2 64.8 mm Hg (80.0-90.0) L 02/05/21 04:39 POC ABG HCO3 21.5 02/06/21 05:00 ABG HCO3 24.0 mmol/L (20.0-26.0) 02/05/21 04:39 ABG O2 Saturation 79.2 (0-100) 02/06/21 05:00 ABG O2 Content 10.3 (0.0-44) 02/05/21 04:39 POC ABG Base Excess -7.5 02/06/21 05:00 ABG Base Excess -4.2 mmol/L (-2.0-3.0) L 02/05/21 04:39 ABG Hemoglobin 8.8 (12.0-17.5) L 02/06/21 05:00 ABG Oxyhemoglobin 77.8 (94-98) L 02/06/21 05:00 ABG Carboxyhemoglobin 2.1 % (0.0-5.0) 02/05/21 04:39 ABG Methemoglobin 0.3 (0.0-1.5) 02/06/21 05:00 ABG Sodium 125.8 mmol/L (136.0-145.0) L 02/06/21 05:00 ABG Potassium 5.6 mmol/L (3.40-4.50) H 02/06/21 05:00 ABG Chloride 92.0 mmol/L (98-107) L 02/06/21 05:00 ABG Glucose 129 mg/dL (65-95) H 02/06/21 05:00 Oxyhemoglobin 84.1 % (95.0-99.0) L 02/05/21 04:39 Carboxyhemoglobin 1.5 (0.5-1.5) 02/06/21 05:00 FiO2 100 % 02/05/21 04:39 FiO2 % 100.0 02/06/21 05:00 Sodium 128 mmol/L (137-145) L 02/05/21 14:32 Sodium 129 mmol/L (137-145) L 02/05/21 14:32 Potassium 5.5 mmol/L (3.6-5.0) H 02/05/21 14:32 Potassium 5.5 mmol/L (3.6-5.0) H 02/05/21 14:32 Chloride 91.2 mmol/L (98-107) L 02/05/21 14:32 Chloride 91.3 mmol/L (98-107) L 02/05/21 14:32 Carbon Dioxide 22 mmol/L (22-30) 02/05/21 14:32 Carbon Dioxide 23 mmol/L (22-30) 02/05/21 14:32 Anion Gap 19 mmol/L 02/05/21 14:32 Anion Gap 21 mmol/L 02/05/21 14:32 BUN 95 mg/dL (9-20) H 02/05/21 14:32 BUN 97 mg/dL (9-20) H 02/05/21 14:32 Creatinine 6.2 mg/dL (0.8-1.3) H 02/05/21 14:32 Creatinine 6.4 mg/dL (0.8-1.3) H 02/05/21 14:32 Estimated GFR 9 ml/min 02/05/21 14:32 Estimated GFR 10 ml/min 02/05/21 14:32 BUN/Creatinine Ratio 15 % 02/05/21 14:32 BUN/Creatinine Ratio 16 % 02/05/21 14:32 Glucose 153 mg/dL (75-100) H 02/05/21 14:32 Glucose 155 mg/dL (75-100) H 02/05/21 14:32 POC Glucose 115 mg/dL (70-105) H 02/06/21 05:42 Hemoglobin A1c 6.2 % (4-6) H 01/22/21 11:06 Lactic Acid 1.30 mmol/L (0.7-2.0) 02/05/21 16:40 Calcium 7.1 mg/dL (8.4-10.2) L 02/05/21 14:32 Calcium 7.3 mg/dL (8.4-10.2) L 02/05/21 14:32 Phosphorus 9.80 mg/dL (2.5-4.5) H 02/05/21 16:40 Magnesium 2.50 mg/dL (1.7-2.3) H 02/03/21 05:25 Ferritin 2509.0 ng/mL (30.0-300.0) H 02/05/21 14:32 Total Bilirubin 1.20 mg/dL (0.1-1.2) 02/05/21 14:32 Direct Bilirubin 1.6 mg/dL (0-0.2) H 01/31/21 03:30 Indirect Bilirubin 0.0 mg/dL 01/31/21 03:30 AST 70 units/L (5-40) H 02/05/21 14:32 ALT 130 units/L (7-56) H 02/05/21 14:32 Alkaline Phosphatase 205 units/L (35-129) H 02/05/21 14:32 Ammonia 100.0 umol/L (25-60) H 02/06/21 06:40 Lactate Dehydrogenase 1181 units/L (91-180) H 02/05/21 14:32 Total Creatine Kinase 258 units/L (55-170) H 01/27/21 05:00 C-Reactive Protein 5.30 mg/dL (0.00-1.30) H 02/05/21 14:32 Serum Total Protein 7.2 g/dL (6.1-8.1) 01/27/21 11:55 Total Protein 4.9 g/dL (6.3-8.2) L 02/05/21 14:32 Albumin 2.1 g/dL (3.9-5) L 02/05/21 14:32 Albumin/Globulin Ratio 0.8 % 02/05/21 14:32 Lksum-6-Aqxlcpszl 0.7 g/dL (0.2-0.3) H 01/27/21 11:55 Yelgn-9-Cicvtpxgd 1.2 g/dL (0.5-0.9) H 01/27/21 11:55 Beta Globulins 0.7 g/dL (0.2-0.5) H 01/27/21 11:55 Gamma Globulins 1.6 g/dL (0.8-1.7) 01/27/21 11:55 Abnorm Protein Band 1 0.5 g/dL H 01/27/21 11:55 PEP Interpretation see below H 01/27/21 11:55 Triglycerides 369 mg/dL (2-149) H 01/28/21 04:00 Lipase 46 units/L (13-60) 02/01/21 04:00 Procalcitonin 2.11 ng/mL (<0.15) 01/25/21 06:22 TSH 0.013 mlU/mL (0.270-4.200) L 01/28/21 10:03 Thyroxine (T4) 3.3 ug/dL (4.0-12.0) L 01/30/21 15:35 Free T3 Index 1.1 pg/mL (2.3-4.2) L 01/30/21 15:35 Arterial Blood Glucose 129 mg/dL (65-95) H 02/06/21 05:00 Arterial Blood Ionized Calcium 3.9 mg/dL (4.6-5.3) L 02/06/21 05:00 Random Vancomycin 13.1 ug/mL (0-40.0) 02/05/21 14:32 Immunofix Electrophor see below H 01/27/21 11:55 ANURAG Screen Negative (Negative) 01/27/21 11:55 Proteinase 3 (PR3) Ab <1.0 AI (<1.0) 01/27/21 11:55 Myeloperoxidase Ab <1.0 AI (<1.0) 01/27/21 11:55 Complement C3 105 mg/dL (82-185) 01/27/21 11:55 Complement C4 17 mg/dL (15-53) 01/27/21 11:55 Coronavirus (PCR) Positive (Negative) A 01/23/21 09:00 Hepatitis A IgM Ab Non-reactive (NonReactive) 01/27/21 11:41 Hep Bs Antigen Nonreactive (Negative) 01/27/21 11:41 Hep B Core IgM Ab Non-reactive (NonReactive) 01/27/21 11:41 Hepatitis C Antibody Non-reactive (NonReactive) 01/27/21 11:41 Miscellaneous Test Flexitest 1 H 01/29/21 Unknown Microbiology: Microbiology 01/25/21 Unknown Sputum - Endotracheal Wash Sputum Culture - Final Aspergillus Fumigatus 02/03/21 08:44 Peripheral/Venous Blood Culture - Preliminary NO GROWTH AFTER 72 HOURS 02/03/21 08:44 Peripheral/Venous Blood Culture - Preliminary NO GROWTH AFTER 72 HOURS 02/03/21 10:12 Urine,Catheterized - Indwelling Catheter Urine Culture - Final NO GROWTH AFTER 48 HOURS Ramirez/IV: Voiding Method Incontinent Active Medications - Current Medications Current Medications: Generic Name Dose Route Start Last Admin Trade Name Freq PRN Reason Stop Dose Admin Albumin Human 25 gm 02/06/21 08:45 Albumin Human 25% (25 Gm/100 Ml) Inj IV MELECIO PRN Hypotension Amiodarone HCl 200 mg 01/30/21 10:00 02/05/21 10:53 Amiodarone 200 Mg Tab PO 200 mg DAILY JACK Administration Lipase/Protease/Amylase 1 each 01/27/21 11:37 Lipase 10,500/Protease 25,000/Amylase 43,750 (Units) Dr Cap FEEDTUBE PRN PRN For Clogged Feeding Tube Ascorbic Acid 500 mg 02/02/21 11:00 02/06/21 09:59 Ascorbic Acid 500 Mg Tab PO 500 mg BID JACK Administration Cholecalciferol 5,000 unit 02/02/21 11:00 02/06/21 09:59 Cholecalciferol (Vit D3) 5,000 Unit Tab PO 5,000 unit DAILY JACK Administration Dextrose 50 ml 01/29/21 12:24 Dextrose 50% In Water (25gm) 50 Ml Syringe IV Q30MIN PRN Hypoglycemia Protocol Famotidine 20 mg 01/27/21 10:00 02/06/21 09:59 Famotidine 20 Mg/2 Ml Inj IV 20 mg DAILY JACK Administration Fentanyl 50 mcg 02/03/21 15:20 Fentanyl 100 Mcg/2 Ml Inj IV Q10MIN PRN ANALGESIA Heparin Sodium (Porcine) 5,000 unit 01/28/21 09:27 Heparin 10,000 Units/10 Ml Vial IV Q6H PRN Anti-Xa Assay < 0.1 units/ml Hydrophilic Ointment 1 applic 01/25/21 13:27 Lip Therapy Vaseline TP Q2HR PRN Dry Lips Norepinephrine 4 mg in 250 mls @ 7.5 mls/hr 01/25/21 17:04 02/06/21 10:24 Levophed Drip 4 Mg/Ns 250 Ml IV 12 mcg/min TITR JACK 45 mls/hr Titration Protocol 2 MCG/MIN Vasopressin 20 unit/ Sodium 101 mls @ 9.09 mls/hr 01/28/21 07:00 01/30/21 08:55 Chloride IV Infused TITR JACK Titration Protocol 0.03 UNITS/MIN Heparin Sodium/Sodium Chloride 25,000 unit in 500 mls @ 30 mls/hr 01/28/21 11:00 02/06/21 06:46 Heparin/ 0.45% Nacl-25,000 Unit/500 Ml IV 1,600 units/hr TITR JACK 32 mls/hr Administration Protocol 1,500 UNITS/HR Cefepime HCl 1 gm in 100 mls @ 200 mls/hr 02/02/21 18:00 02/05/21 18:52 Cefepime/Ns 1 Gm/100 Ml IV 02/06/21 18:29 200 mls/hr QPM JACK Administration Protocol Fentanyl Citrate 2,000 mcg in 100 mls @ 6.4 mls/hr 02/03/21 16:00 02/04/21 06:36 Fentanyl Drip Premix IV 1 mcg/kg/hr TITR JACK 6.4 mls/hr Administration Protocol 1 MCG/KG/HR Vancomycin HCl 500 mg/ Sodium 110 mls @ 66.667 mls/hr 02/06/21 10:00 Chloride IV 02/06/21 11:38 ONCE ONE Sodium Chloride 100 mls @ 999 mls/hr 02/06/21 08:45 Nacl 0.9% IV MELECIO PRN Hypotension Insulin Human Regular 0 units 01/29/21 13:00 02/05/21 21:12 Insulin Regular, Human 100 Units/1 Ml SUB-Q Not Given Q6HR [facility] Protocol Metoclopramide HCl 5 mg 02/06/21 10:00 02/06/21 09:58 Metoclopramide 10 Mg/2 Ml Inj IV 5 mg Q8H JACK Administration Multi-Ingred Cream/Lotion/Oil/Oint 1 applic 01/25/21 13:27 Mineral Oil/Petrolatum, White Ophth Oint 3.5 Gm OU Q4HR PRN Dry Eye(s) Ondansetron HCl 4 mg 01/22/21 23:03 Ondansetron 4 Mg/2 Ml Inj IV Q8H PRN Nausea And Vomiting Senna/Docusate Sodium 1 tab 01/25/21 22:00 02/05/21 22:38 Sennosides/Docusate Sodium 8.6/50 Mg Tab FEEDTUBE 1 tab BID JACK Administration Simple Syrup 15 ml 01/27/21 11:37 Simple Syrup 15 Ml FEEDTUBE PRN PRN Hypoglycemia Simple Syrup 30 ml 01/27/21 11:37 Simple Syrup 15 Ml FEEDTUBE PRN PRN Hypoglycemia Sodium Bicarbonate 325 mg 01/27/21 11:37 Sodium Bicarbonate 325 Mg Tab FEEDTUBE PRN PRN For Clogged Feeding Tube Sodium Chloride 10 ml 01/22/21 23:45 02/05/21 22:39 Sodium Chloride 0.9% 10 Ml Flush Syringe IV 10 ml BID JACK Administration Sodium Chloride 10 ml 01/22/21 23:03 Sodium Chloride 0.9% 10 Ml Flush Syringe IV PRN PRN LINE FLUSH Vancomycin HCl 125 mg 02/06/21 12:00 Vancomycin 250 Mg/10 Ml Oral Liqd PO 02/15/21 12:01 Q6HR JACK Protocol Voriconazole 300 mg 01/29/21 11:00 02/05/21 22:38 Voriconazole 200 Mg Tab PO 300 mg Q12HR JACK Administration Zinc Sulfate 220 mg 02/02/21 11:00 02/06/21 10:15 Zinc Sulfate 220 Mg Cap PO 220 mg BID JACK Administration Nutrition/Malnutrition Assess - Dietary Evaluation Nutrition/Malnutrition Findings: Nutrition Notes Start: 01/24/21 13:25 Freq: Status: Active Protocol: Document 02/05/21 10:43 (Rec: 02/05/21 10:53 [id number]) Nutrition Notes Initial or Follow up Reassessment Current Diagnosis Sepsis,Respiratory Failure, Malnutrition Other Pertinent Diagnosis covid-19, pneumonia Current Diet Nepro 1.8 at 30 ml/hr Labs/Tests 02/04: Na 133 BUN 77 Cr 5.3 Pertinent Medications Levophed Reglan Height 5 ft 6 in Weight 128 kg [place] Body Weight (kg) 64.54 BMI 45.5 Weight Status Morbidly Obese Subjective/Other Information Pt suffered code blue this AM. Per chart, pt TF remains running at 30 ml/hr. Percent of energy/protein needs met: 72%/36% Burn Absent Trauma Absent GI Symptoms None Current % PO Negligible Minimum of two criteria No physical signs of malnutrition #1 Nutrition Diagnosis Inadequate oral intake Diagnosis Progress(for reassessment Continues documentation) Is patient on ventilator? Yes Is Patient Ambulatory and/or Out of Bed No REE-(Crane-St. Jeor-confined to bed) 2484.852 Kcal/Kg value to use for calculation 14 Approximate Energy Requirements Using 1792 kcal/Kg Calculation Used for Recommendations Kcal/kg Additional Notes Protein needs: up to 161 (up to 2.5 g/kgIBW) fluid needs: 1ml/kcal or per MD order Nutrition Intervention Change Diet Order: Increase TF Nutrition Support: Nepro at 40 ml/hr with a free water flush of 175 ml q4h Kcal 1,728 Protein (gm) 78 Fluid (mL) 698 Goal #1 Meet at least 75% of kcal and meet protein needs as best as possible via TF Anticipated Discharge Needs: Unable to determine at this time Follow-Up By: 02/08/21 Additional Comments F/u: TF rate and tolerance - Attestation Statement I have reviewed and agreed w/ Malnutrition eval & tx plan: Yes
[2021-02-06] MEDS ORDERED: NORepinephrine/NS 8 MG-250 ML 8 MG/250 ML INFUS..BTL IV ONE (13:03)
[2021-02-06] MEDS: AMIODARONE 200 MG TAB PO SCH (13:45)
[2021-02-06] MEDS: VORICONAZOLE 200 MG TAB PO SCH ×2 (13:45→21:32)
[2021-02-06] MEDS: fentaNYL DRIP Premix 2,000 MCG/100 ML BAG IV SCH (14:13)
[2021-02-06] MEDS: SENNOSIDES/DOCUSATE SODIUM 8.6/50 MG TAB FEEDTUBE SCH ×2 (14:19→21:31)
--- NOTE | 2021-02-06 14:46 | Progress Note ---
Assessment and Plan Acute hypoxemic respiratory failure COVID-19 infection Multifocal pneumonia Hypernatremia Sepsis Morbid obesity with BMI of 40.0-44.9, adult (discussed gravity of situation with his and the likely futility of resuscitative efforts; she feels like he will not want to suffer further and has decided to go with DNR status) - changed bacvk to PRVC/AC mode - manual aspiration of chest tubes attempted at bedside - gross leak noted in right chest tube now - will attempt to wean peep down as tolerated if O2 sats stay in 80's - continue care as below otherwise; - continue empiric oral Vancomycin - continue all chest tubes to wall suction (continuous) - continue HD/UF per nephrology prescription for toxin and volume clearance - Vasopressors for target MAP > 65 mmHg - Daily SAT and SBT assessment as tolerated - VAP bundle addressed - continue lung protective strategies - continue bronchodilators with pulmonary hygiene per RT - wean per pulmonary driven protocols otherwise - avoid nephrotoxins, renally dose all medications - continue to avoid benzodiazepine's, reduce the possibility of delirium - complete AB's per ID rec's - prn analgesia per CPOT score - Maintenance of sleep-wake cycle, avoid delirium - enteral nutritional support at goal rate as tolerated - G.I. & VTE prophylaxis - PT/OT/ROM exercises - continue mobility protocols for pressure ulcer prophylaxis - Monitor hemodynamics closely - continue other care per attending / other consultants - discharge planning ongoing concurrently COVID SPECIFIC INTERVENTIONS - Remdesivir as per ID/Pulmonary developed protocols (receiving) - continue systemic steroids for severe COVID-19 infection (Dexamethasone) - follow repeat COVID tests results - zinc and vitamin C supplementation - Monitor inflammatory markers per facility protocol - ferritin, Ddimer, CRP - therapeutic anticoagulation per system Protocol based on d-dimer and clinical considerations (VTE prophylaxis doses now) - Continue contact and airborne isolation .... Re-evaluate in am & prn CONDITION: CRITICAL PROGNOSIS: GRAVE CODE STATUS: FULL CODE The high probability of a clinically significant, sudden or life-threatening deterioration of the [respiratory, cardiovascular & neurologic] system(s) required my full and direct attention, intervention and personal management. The aggregate critical care time was [40] minutes without overlap. Time includes spent on; [x] Data Review and interpretation [x] Patient assessment and monitoring of vital signs [x] Documentation [x] Medication orders and management Subjective Date of service: 02/06/21 Principal diagnosis: Ac hypoxemic resp failure; COVID-19; Pneumonia; Sepsis; Morbid obesity Interval history: Patient is seen today for: Acute hypoxemic respiratory failure; COVID-19i nfection; Multifocal pneumonia; Hypernatremia; Sepsis; Morbid obesity Seen and examined at bedside; 24hour events reviewed; nursing and respiratory care staff consulted; no adverse overnight events reported to me; resting in bed; remains on MVS; chest tubes in place but now with large leak on right side; Levophed up to 8 wilfredo's/min; remains hypoxemic & acidotic and changed to PCV; on dialysis and tolerating well so far Objective Vital Signs - 12hr 02/06/21 02/06/21 02/06/21 02:45 03:00 03:15 Temperature Pulse Rate 77 74 74 Respiratory 27 H 29 H 30 H Rate Blood Pressure 118/43 107/38 116/45 O2 Sat by Pulse 88 89 89 Oximetry O2 Sat by Pulse Oximetry [ Anterior Bilateral] 02/06/21 02/06/21 02/06/21 03:30 03:45 03:58 Temperature 97.8 F Pulse Rate 77 75 Respiratory 30 H 29 H Rate Blood Pressure 112/43 112/39 O2 Sat by Pulse 89 87 Oximetry O2 Sat by Pulse Oximetry [ Anterior Bilateral] 02/06/21 02/06/21 02/06/21 04:00 04:05 04:15 Temperature Pulse Rate 75 76 77 Respiratory 30 H 30 H Rate Blood Pressure 111/45 111/45 114/46 O2 Sat by Pulse 89 88 87 Oximetry O2 Sat by Pulse Oximetry [ Anterior Bilateral] 02/06/21 02/06/21 02/06/21 04:30 04:45 05:00 Temperature Pulse Rate 79 79 80 Respiratory 30 H 30 H 31 H Rate Blood Pressure 111/40 116/40 110/41 O2 Sat by Pulse 86 86 88 Oximetry O2 Sat by Pulse Oximetry [ Anterior Bilateral] 02/06/21 02/06/21 02/06/21 05:15 05:30 05:45 Temperature Pulse Rate 86 86 84 Respiratory 31 H 32 H 36 H Rate Blood Pressure 99/44 100/35 102/40 O2 Sat by Pulse 88 89 91 Oximetry O2 Sat by Pulse Oximetry [ Anterior Bilateral] 02/06/21 02/06/21 02/06/21 06:00 06:15 06:30 Temperature Pulse Rate 80 82 83 Respiratory 32 H 34 H 31 H Rate Blood Pressure 111/45 115/44 113/48 O2 Sat by Pulse 88 89 90 Oximetry O2 Sat by Pulse Oximetry [ Anterior Bilateral] 02/06/21 02/06/21 02/06/21 06:45 07:00 07:15 Temperature Pulse Rate 82 82 81 Respiratory 31 H 34 H 34 H Rate Blood Pressure 107/44 118/43 114/47 O2 Sat by Pulse 90 90 86 Oximetry O2 Sat by Pulse Oximetry [ Anterior Bilateral] 02/06/21 02/06/21 02/06/21 07:30 07:45 07:55 Temperature Pulse Rate 81 84 80 Respiratory 33 H 37 H Rate Blood Pressure 118/40 116/47 116/47 O2 Sat by Pulse 90 91 90 Oximetry O2 Sat by Pulse Oximetry [ Anterior Bilateral] 02/06/21 02/06/21 02/06/21 08:00 08:15 08:30 Temperature Pulse Rate 81 79 80 Respiratory 35 H 34 H 33 H Rate Blood Pressure 114/44 120/40 117/40 O2 Sat by Pulse 90 90 90 Oximetry O2 Sat by Pulse Oximetry [ Anterior Bilateral] 02/06/21 02/06/21 02/06/21 08:45 09:00 09:15 Temperature Pulse Rate 81 82 80 Respiratory 34 H 35 H 38 H Rate Blood Pressure 109/43 117/45 106/44 O2 Sat by Pulse 90 90 90 Oximetry O2 Sat by Pulse Oximetry [ Anterior Bilateral] 02/06/21 02/06/21 02/06/21 09:29 09:30 09:45 Temperature 97.4 F L Pulse Rate 79 81 Respiratory 36 H 35 H Rate Blood Pressure 112/42 117/46 O2 Sat by Pulse 91 90 Oximetry O2 Sat by Pulse Oximetry [ Anterior Bilateral] 02/06/21 02/06/21 02/06/21 09:50 10:00 10:05 Temperature Pulse Rate 84 82 84 Respiratory 32 H 31 H Rate Blood Pressure 110/35 114/42 110/35 O2 Sat by Pulse 91 Oximetry O2 Sat by Pulse 92 Oximetry [ Anterior Bilateral] 02/06/21 02/06/21 02/06/21 10:15 10:30 10:45 Temperature Pulse Rate 75 81 82 Respiratory 30 H 30 H Rate Blood Pressure 116/35 108/45 128/46 O2 Sat by Pulse 90 87 Oximetry O2 Sat by Pulse Oximetry [ Anterior Bilateral] 02/06/21 02/06/21 02/06/21 10:46 11:00 11:15 Temperature Pulse Rate 80 80 86 Respiratory 26 H 26 H 26 H Rate Blood Pressure 128/46 134/49 129/50 O2 Sat by Pulse 86 87 88 Oximetry O2 Sat by Pulse Oximetry [ Anterior Bilateral] 02/06/21 02/06/21 02/06/21 11:30 11:45 11:46 Temperature Pulse Rate 83 84 78 Respiratory 30 H 32 H Rate Blood Pressure 126/56 108/54 82/43 O2 Sat by Pulse 87 81 L Oximetry O2 Sat by Pulse Oximetry [ Anterior Bilateral] 02/06/21 02/06/21 02/06/21 12:00 12:15 12:25 Temperature Pulse Rate 85 84 86 Respiratory 27 H 22 Rate Blood Pressure 122/47 110/44 110/44 O2 Sat by Pulse 86 87 85 Oximetry O2 Sat by Pulse Oximetry [ Anterior Bilateral] 02/06/21 02/06/21 02/06/21 12:30 12:45 13:00 Temperature Pulse Rate 87 82 82 Respiratory 28 H 25 H 22 Rate Blood Pressure 123/49 113/49 113/49 O2 Sat by Pulse 82 L 83 L 84 Oximetry O2 Sat by Pulse Oximetry [ Anterior Bilateral] 02/06/21 02/06/21 02/06/21 13:15 13:30 13:45 Temperature Pulse Rate 82 80 94 H Respiratory 27 H 32 H 31 H Rate Blood Pressure 97/38 106/44 102/54 O2 Sat by Pulse 81 L 75 L 79 L Oximetry O2 Sat by Pulse Oximetry [ Anterior Bilateral] 02/06/21 02/06/21 02/06/21 14:00 14:15 14:24 Temperature Pulse Rate 82 83 128 H Respiratory 28 H 32 H Rate Blood Pressure 112/44 105/44 105/44 O2 Sat by Pulse 78 L 75 L 75 L Oximetry O2 Sat by Pulse Oximetry [ Anterior Bilateral] 02/06/21 14:30 Temperature Pulse Rate 83 Respiratory 27 H Rate Blood Pressure 119/50 O2 Sat by Pulse 71 L Oximetry O2 Sat by Pulse Oximetry [ Anterior Bilateral] Constitutional: appears uncomfortable, other (middle aged obese male with mildly increased respiratory effort at rest on MVS) Eyes: non-icteric ENT: oropharynx moist, other (ETT 24 cm BRE) Neck: supple, no lymphadenopathy, no JVD, other (large circumference) Effort: mildly labored Ascultation: Bilateral: diminished breath sounds, rhonchi, other (L&R chest tubes in place; + SQ emphysema) Percussion: Bilateral: not dull Cardiovascular: regular rate and rhythm Gastrointestinal: normoactive bowel sounds, soft, non-tender, non-distended (protuberant) Integumentary: normal Extremities: no cyanosis, no edema, pink and warm, pulses normal Neurologic: pupils equal and round, unable to assess (sedated) Psychiatric: other (unable top assess re: AMS) CBC and BMP: 02/06/21 06:40 02/05/21 14:32 ABG, PT/INR, D-dimer: ABG ABG pH 7.139 (7.320-7.450) L 02/06/21 05:00 POC ABG pCO2 64.9 mmHg (32.0-48.0) H 02/06/21 05:00 ABG pCO2 62.3 mm Hg 02/05/21 04:39 POC ABG pO2 51.5 mmHg (83-108) L 02/06/21 05:00 ABG pO2 64.8 mm Hg (80.0-90.0) L 02/05/21 04:39 POC ABG HCO3 21.5 02/06/21 05:00 ABG O2 Saturation 79.2 (0-100) 02/06/21 05:00 PT/INR, D-dimer PT 15.1 Sec. (12.2-14.9) H 02/02/21 Unknown INR 1.13 (0.87-1.13) 02/02/21 Unknown D-Dimer 3359.01 ng/mlDDU (0-234) H 02/05/21 14:32 Abnormal lab findings: Abnormal Labs 01/22/21 01/22/21 01/22/21 11:06 11:06 11:06 WBC RBC Hgb Hct MCHC RDW Plt Count Lymph % (Auto) Lymph # (Auto) [place] # (Auto) Seg Neutrophils % Seg Neuts % (Manual) Lymphocytes % (Manual) Nucleated RBC % Seg Neutrophils # Seg Neutrophils # Man Lymphocytes # (Manual) Monocytes # (Manual) Eosinophils # (Manual) PT INR D-Dimer 2625.11 H Heparin Anti-Xa Level ABG pH POC ABG pCO2 POC ABG pO2 ABG pO2 ABG O2 Saturation ABG Base Excess ABG Hemoglobin ABG Oxyhemoglobin ABG Sodium ABG Potassium ABG Chloride ABG Glucose Oxyhemoglobin Carboxyhemoglobin Sodium Potassium Chloride Carbon Dioxide BUN Creatinine Glucose 130 H POC Glucose Hemoglobin A1c Lactic Acid Calcium Phosphorus Magnesium Ferritin 557.5 H Total Bilirubin Direct Bilirubin AST ALT Alkaline Phosphatase Ammonia Lactate Dehydrogenase 799 H Total Creatine Kinase C-Reactive Protein 3.30 H Total Protein Albumin Dupne-4-Ziabposzr Nazsn-2-Lkfcizkml Beta Globulins Abnorm Protein Band 1 PEP Interpretation Triglycerides TSH Thyroxine (T4) Free T3 Index Arterial Blood Glucose Arterial Blood Ionized Calcium Immunofix Electrophor Coronavirus (PCR) Miscellaneous Test 01/22/21 01/22/21 01/22/21 11:06 11:06 11:06 WBC 19.2 H RBC 5.63 H Hgb 15.8 H Hct 49.0 H MCHC RDW Plt Count Lymph % (Auto) Lymph # (Auto) [place] # (Auto) Seg Neutrophils % Seg Neuts % (Manual) 92.0 H Lymphocytes % (Manual) 1.0 L Nucleated RBC % 1.0 H Seg Neutrophils # Seg Neutrophils # Man 17.7 H Lymphocytes # (Manual) 0.2 L Monocytes # (Manual) 1.0 H Eosinophils # (Manual) PT INR D-Dimer Heparin Anti-Xa Level ABG pH POC ABG pCO2 POC ABG pO2 ABG pO2 ABG O2 Saturation ABG Base Excess ABG Hemoglobin ABG Oxyhemoglobin ABG Sodium ABG Potassium ABG Chloride ABG Glucose Oxyhemoglobin Carboxyhemoglobin Sodium Potassium 3.3 L Chloride Carbon Dioxide 20 L BUN 32 H Creatinine Glucose 130 H POC Glucose Hemoglobin A1c Lactic Acid 4.20 H* Calcium Phosphorus Magnesium Ferritin Total Bilirubin Direct Bilirubin AST ALT Alkaline Phosphatase Ammonia Lactate Dehydrogenase Total Creatine Kinase C-Reactive Protein Total Protein Albumin 2.9 L Zdeds-5-Etxvshtyt Oewwa-0-Xeufsverh Beta Globulins Abnorm Protein Band 1 PEP Interpretation Triglycerides TSH Thyroxine (T4) Free T3 Index Arterial Blood Glucose Arterial Blood Ionized Calcium Immunofix Electrophor Coronavirus (PCR) Miscellaneous Test 01/22/21 01/22/21 01/23/21 11:06 12:03 05:29 WBC 19.0 H RBC 5.24 H Hgb 15.3 H Hct 46.0 H MCHC RDW Plt Count Lymph % (Auto) 4.4 L Lymph # (Auto) 0.8 L [place] # (Auto) 1.2 H Seg Neutrophils % 89.1 H Seg Neuts % (Manual) Lymphocytes % (Manual) Nucleated RBC % Seg Neutrophils # 16.9 H Seg Neutrophils # Man Lymphocytes # (Manual) Monocytes # (Manual) Eosinophils # (Manual) PT INR D-Dimer Heparin Anti-Xa Level ABG pH POC ABG pCO2 30.7 L POC ABG pO2 61.4 L ABG pO2 ABG O2 Saturation ABG Base Excess ABG Hemoglobin ABG Oxyhemoglobin 90.5 L ABG Sodium ABG Potassium ABG Chloride ABG Glucose Oxyhemoglobin Carboxyhemoglobin 1.7 H Sodium Potassium Chloride Carbon Dioxide BUN Creatinine Glucose POC Glucose Hemoglobin A1c 6.2 H Lactic Acid Calcium Phosphorus Magnesium Ferritin Total Bilirubin Direct Bilirubin AST ALT Alkaline Phosphatase Ammonia Lactate Dehydrogenase Total Creatine Kinase C-Reactive Protein Total Protein Albumin Zyuuv-5-Nidmixuuw Vkjhf-7-Pwbouangh Beta Globulins Abnorm Protein Band 1 PEP Interpretation Triglycerides TSH Thyroxine (T4) Free T3 Index Arterial Blood Glucose Arterial Blood Ionized Calcium Immunofix Electrophor Coronavirus (PCR) Miscellaneous Test 01/23/21 01/23/21 01/23/21 05:29 09:00 16:55 WBC RBC Hgb Hct MCHC RDW Plt Count Lymph % (Auto) Lymph # (Auto) [place] # (Auto) Seg Neutrophils % Seg Neuts % (Manual) Lymphocytes % (Manual) Nucleated RBC % Seg Neutrophils # Seg Neutrophils # Man Lymphocytes # (Manual) Monocytes # (Manual) Eosinophils # (Manual) PT INR D-Dimer Heparin Anti-Xa Level ABG pH POC ABG pCO2 POC ABG pO2 ABG pO2 ABG O2 Saturation ABG Base Excess ABG Hemoglobin ABG Oxyhemoglobin ABG Sodium ABG Potassium ABG Chloride ABG Glucose Oxyhemoglobin Carboxyhemoglobin Sodium Potassium 3.5 L Chloride Carbon Dioxide BUN 29 H 27 H Creatinine Glucose 132 H 103 H POC Glucose Hemoglobin A1c Lactic Acid Calcium Phosphorus Magnesium Ferritin Total Bilirubin Direct Bilirubin AST ALT Alkaline Phosphatase Ammonia Lactate Dehydrogenase Total Creatine Kinase C-Reactive Protein Total Protein Albumin 2.9 L 2.9 L Kehpc-3-Nkxiuaxfl Nnvlz-9-Avnxhpwem Beta Globulins Abnorm Protein Band 1 PEP Interpretation Triglycerides TSH Thyroxine (T4) Free T3 Index Arterial Blood Glucose Arterial Blood Ionized Calcium Immunofix Electrophor Coronavirus (PCR) Positive A Miscellaneous Test 01/24/21 01/24/21 01/24/21 05:50 20:20 20:20 WBC RBC Hgb Hct MCHC RDW Plt Count Lymph % (Auto) Lymph # (Auto) [place] # (Auto) Seg Neutrophils % Seg Neuts % (Manual) Lymphocytes % (Manual) Nucleated RBC % Seg Neutrophils # Seg Neutrophils # Man Lymphocytes # (Manual) Monocytes # (Manual) Eosinophils # (Manual) PT INR D-Dimer Heparin Anti-Xa Level ABG pH POC ABG pCO2 POC ABG pO2 ABG pO2 ABG O2 Saturation ABG Base Excess ABG Hemoglobin ABG Oxyhemoglobin ABG Sodium ABG Potassium ABG Chloride ABG Glucose Oxyhemoglobin Carboxyhemoglobin Sodium 148 H Potassium 5.3 H D Chloride 109.3 H Carbon Dioxide BUN 26 H Creatinine 0.7 L Glucose 130 H POC Glucose Hemoglobin A1c Lactic Acid Calcium Phosphorus Magnesium Ferritin 1031.0 H Total Bilirubin Direct Bilirubin AST 45 H ALT Alkaline Phosphatase Ammonia Lactate Dehydrogenase 1511 H Total Creatine Kinase C-Reactive Protein 12.00 H Total Protein Albumin 2.9 L Wknpo-9-Ckefqpkml Acbio-3-Ulajerezx Beta Globulins Abnorm Protein Band 1 PEP Interpretation Triglycerides TSH Thyroxine (T4) Free T3 Index Arterial Blood Glucose Arterial Blood Ionized Calcium Immunofix Electrophor Coronavirus (PCR) Miscellaneous Test 01/24/21 01/25/21 01/25/21 20:20 06:22 06:22 WBC RBC Hgb Hct MCHC RDW Plt Count Lymph % (Auto) Lymph # (Auto) [place] # (Auto) Seg Neutrophils % Seg Neuts % (Manual) Lymphocytes % (Manual) Nucleated RBC % Seg Neutrophils # Seg Neutrophils # Man Lymphocytes # (Manual) Monocytes # (Manual) Eosinophils # (Manual) PT INR D-Dimer > 30960 H > 81704 H Heparin Anti-Xa Level ABG pH POC ABG pCO2 POC ABG pO2 ABG pO2 ABG O2 Saturation ABG Base Excess ABG Hemoglobin ABG Oxyhemoglobin ABG Sodium ABG Potassium ABG Chloride ABG Glucose Oxyhemoglobin Carboxyhemoglobin Sodium 153 H Potassium 3.4 L D Chloride 116.1 H Carbon Dioxide 21 L BUN 27 H Creatinine Glucose 133 H POC Glucose Hemoglobin A1c Lactic Acid Calcium Phosphorus Magnesium Ferritin Total Bilirubin 1.30 H Direct Bilirubin AST 50 H ALT Alkaline Phosphatase 159 H Ammonia Lactate Dehydrogenase Total Creatine Kinase C-Reactive Protein Total Protein Albumin 2.9 L Ownpk-1-Jwjlcpuvd Aiqdk-6-Qizrgmzwb Beta Globulins Abnorm Protein Band 1 PEP Interpretation Triglycerides TSH Thyroxine (T4) Free T3 Index Arterial Blood Glucose Arterial Blood Ionized Calcium Immunofix Electrophor Coronavirus (PCR) Miscellaneous Test 01/25/21 01/25/21 01/25/21 06:22 09:35 11:25 WBC RBC Hgb Hct MCHC RDW Plt Count Lymph % (Auto) Lymph # (Auto) [place] # (Auto) Seg Neutrophils % Seg Neuts % (Manual) Lymphocytes % (Manual) Nucleated RBC % Seg Neutrophils # Seg Neutrophils # Man Lymphocytes # (Manual) Monocytes # (Manual) Eosinophils # (Manual) PT INR D-Dimer Heparin Anti-Xa Level ABG pH 7.453 H 7.228 L POC ABG pCO2 60.0 H POC ABG pO2 44.9 L 111.7 H ABG pO2 ABG O2 Saturation ABG Base Excess ABG Hemoglobin ABG Oxyhemoglobin 81.4 L ABG Sodium 153.1 H 150.9 H ABG Potassium 3.3 L ABG Chloride 116.0 H 117.0 H ABG Glucose 151 H 155 H Oxyhemoglobin Carboxyhemoglobin Sodium Potassium Chloride Carbon Dioxide BUN Creatinine Glucose POC Glucose Hemoglobin A1c Lactic Acid Calcium Phosphorus Magnesium Ferritin Total Bilirubin Direct Bilirubin AST ALT Alkaline Phosphatase Ammonia Lactate Dehydrogenase Total Creatine Kinase C-Reactive Protein 16.80 H Total Protein Albumin Efwui-2-Nwmficfbz Wouej-4-[place] Beta Globulins Abnorm Protein Band 1 PEP Interpretation Triglycerides TSH Thyroxine (T4) Free T3 Index Arterial Blood Glucose 151 H 155 H Arterial Blood Ionized Calcium Immunofix Electrophor Coronavirus (PCR) Miscellaneous Test 01/25/21 01/26/21 01/26/21 21:00 07:32 07:39 WBC RBC Hgb Hct MCHC RDW Plt Count Lymph % (Auto) Lymph # (Auto) [place] # (Auto) Seg Neutrophils % Seg Neuts % (Manual) Lymphocytes % (Manual) Nucleated RBC % Seg Neutrophils # Seg Neutrophils # Man Lymphocytes # (Manual) Monocytes # (Manual) Eosinophils # (Manual) PT INR D-Dimer Heparin Anti-Xa Level ABG pH POC ABG pCO2 POC ABG pO2 68.5 L ABG pO2 ABG O2 Saturation ABG Base Excess ABG Hemoglobin ABG Oxyhemoglobin 91.3 L ABG Sodium 151.9 H ABG Potassium ABG Chloride 117.0 H ABG Glucose 140 H Oxyhemoglobin Carboxyhemoglobin Sodium 151 H Potassium Chloride 116.7 H Carbon Dioxide 20 L BUN 59 H Creatinine 3.4 H D Glucose 121 H POC Glucose Hemoglobin A1c Lactic Acid Calcium Phosphorus Magnesium Ferritin 1921.0 H Total Bilirubin Direct Bilirubin AST 45 H ALT Alkaline Phosphatase 137 H Ammonia Lactate Dehydrogenase 1559 H Total Creatine Kinase C-Reactive Protein 20.90 H Total Protein Albumin 2.3 L Slphw-4-Xxclgbeui Jnjwe-2-Rlayajzle Beta Globulins Abnorm Protein Band 1 PEP Interpretation Triglycerides TSH Thyroxine (T4) Free T3 Index Arterial Blood Glucose 140 H Arterial Blood Ionized Calcium Immunofix Electrophor Coronavirus (PCR) Miscellaneous Test 01/26/21 01/26/21 01/26/21 08:30 17:55 20:39 WBC RBC Hgb Hct MCHC RDW Plt Count Lymph % (Auto) Lymph # (Auto) [place] # (Auto) Seg Neutrophils % Seg Neuts % (Manual) Lymphocytes % (Manual) Nucleated RBC % Seg Neutrophils # Seg Neutrophils # Man Lymphocytes # (Manual) Monocytes # (Manual) Eosinophils # (Manual) PT INR D-Dimer Heparin Anti-Xa Level ABG pH 7.287 L POC ABG pCO2 POC ABG pO2 ABG pO2 124.5 H ABG O2 Saturation ABG Base Excess -5.0 L ABG Hemoglobin ABG Oxyhemoglobin ABG Sodium ABG Potassium ABG Chloride ABG Glucose Oxyhemoglobin Carboxyhemoglobin Sodium 152 H Potassium 6.0 H D Chloride 117.2 H Carbon Dioxide 15 L BUN 80 H Creatinine 5.6 H D Glucose 156 H POC Glucose 141 H Hemoglobin A1c Lactic Acid Calcium 7.4 L Phosphorus Magnesium Ferritin Total Bilirubin Direct Bilirubin AST ALT Alkaline Phosphatase Ammonia Lactate Dehydrogenase Total Creatine Kinase C-Reactive Protein Total Protein Albumin Srqrn-1-Irfqeufih Kaaih-7-Kjgjqwzid Beta Globulins Abnorm Protein Band 1 PEP Interpretation Triglycerides TSH Thyroxine (T4) Free T3 Index Arterial Blood Glucose Arterial Blood Ionized Calcium Immunofix Electrophor Coronavirus (PCR) Miscellaneous Test 01/26/21 01/27/21 01/27/21 23:14 02:55 05:00 WBC RBC Hgb Hct MCHC RDW Plt Count Lymph % (Auto) Lymph # (Auto) [place] # (Auto) Seg Neutrophils % Seg Neuts % (Manual) Lymphocytes % (Manual) Nucleated RBC % Seg Neutrophils # Seg Neutrophils # Man Lymphocytes # (Manual) Monocytes # (Manual) Eosinophils # (Manual) PT INR D-Dimer Heparin Anti-Xa Level ABG pH 7.215 L POC ABG pCO2 48.9 H POC ABG pO2 143.3 H ABG pO2 ABG O2 Saturation ABG Base Excess ABG Hemoglobin ABG Oxyhemoglobin ABG Sodium 150.0 H ABG Potassium 5.0 H ABG Chloride 118.0 H ABG Glucose 180 H Oxyhemoglobin Carboxyhemoglobin Sodium 154 H Potassium 5.3 H Chloride 117.2 H Carbon Dioxide 19 L BUN 92 H Creatinine 6.4 H Glucose 175 H POC Glucose 148 H Hemoglobin A1c Lactic Acid Calcium 7.9 L Phosphorus Magnesium Ferritin Total Bilirubin Direct Bilirubin AST ALT Alkaline Phosphatase Ammonia Lactate Dehydrogenase Total Creatine Kinase C-Reactive Protein Total Protein Albumin Katre-4-Fvxgrfyap Rnafs-0-Vhxwepzbg Beta Globulins Abnorm Protein Band 1 PEP Interpretation Triglycerides TSH Thyroxine (T4) Free T3 Index Arterial Blood Glucose 180 H Arterial Blood Ionized Calcium 4.5 L Immunofix Electrophor Coronavirus (PCR) Miscellaneous Test 01/27/21 01/27/21 01/27/21 05:00 05:14 11:42 WBC RBC Hgb Hct MCHC RDW Plt Count Lymph % (Auto) Lymph # (Auto) [place] # (Auto) Seg Neutrophils % Seg Neuts % (Manual) Lymphocytes % (Manual) Nucleated RBC % Seg Neutrophils # Seg Neutrophils # Man Lymphocytes # (Manual) Monocytes # (Manual) Eosinophils # (Manual) PT INR D-Dimer Heparin Anti-Xa Level ABG pH POC ABG pCO2 POC ABG pO2 ABG pO2 ABG O2 Saturation ABG Base Excess ABG Hemoglobin ABG Oxyhemoglobin ABG Sodium ABG Potassium ABG Chloride ABG Glucose Oxyhemoglobin Carboxyhemoglobin Sodium Potassium Chloride Carbon Dioxide BUN Creatinine Glucose POC Glucose 159 H 171 H Hemoglobin A1c Lactic Acid Calcium Phosphorus Magnesium Ferritin Total Bilirubin Direct Bilirubin AST ALT Alkaline Phosphatase Ammonia Lactate Dehydrogenase Total Creatine Kinase 258 H C-Reactive Protein Total Protein Albumin Nefxb-0-Xyjrechqk Vwixt-8-Nmjhojoxh Beta Globulins Abnorm Protein Band 1 PEP Interpretation Triglycerides TSH Thyroxine (T4) Free T3 Index Arterial Blood Glucose Arterial Blood Ionized Calcium Immunofix Electrophor Coronavirus (PCR) Miscellaneous Test 01/27/21 01/27/21 01/27/21 11:55 11:55 18:00 WBC RBC Hgb Hct MCHC RDW Plt Count Lymph % (Auto) Lymph # (Auto) [place] # (Auto) Seg Neutrophils % Seg Neuts % (Manual) Lymphocytes % (Manual) Nucleated RBC % Seg Neutrophils # Seg Neutrophils # Man Lymphocytes # (Manual) Monocytes # (Manual) Eosinophils # (Manual) PT INR D-Dimer Heparin Anti-Xa Level ABG pH POC ABG pCO2 POC ABG pO2 ABG pO2 ABG O2 Saturation ABG Base Excess ABG Hemoglobin ABG Oxyhemoglobin ABG Sodium ABG Potassium ABG Chloride ABG Glucose Oxyhemoglobin Carboxyhemoglobin Sodium Potassium Chloride Carbon Dioxide BUN Creatinine Glucose POC Glucose 185 H Hemoglobin A1c Lactic Acid Calcium Phosphorus Magnesium Ferritin Total Bilirubin Direct Bilirubin AST ALT Alkaline Phosphatase Ammonia Lactate Dehydrogenase Total Creatine Kinase C-Reactive Protein Total Protein Albumin 2.5 L Pjoib-9-Tfghbzxiu 0.7 H Lpokq-8-Tgkplmlis 1.2 H Beta Globulins 0.7 H Abnorm Protein Band 1 0.5 H PEP Interpretation see below H Triglycerides TSH Thyroxine (T4) Free T3 Index Arterial Blood Glucose Arterial Blood Ionized Calcium Immunofix Electrophor see below H Coronavirus (PCR) Miscellaneous Test 01/28/21 01/28/21 01/28/21 04:00 04:00 10:03 WBC RBC Hgb Hct MCHC RDW Plt Count 104 L Lymph % (Auto) Lymph # (Auto) [place] # (Auto) Seg Neutrophils % Seg Neuts % (Manual) Lymphocytes % (Manual) Nucleated RBC % Seg Neutrophils # Seg Neutrophils # Man Lymphocytes # (Manual) Monocytes # (Manual) Eosinophils # (Manual) PT INR D-Dimer Heparin Anti-Xa Level ABG pH 7.272 L POC ABG pCO2 48.4 H POC ABG pO2 ABG pO2 ABG O2 Saturation ABG Base Excess ABG Hemoglobin ABG Oxyhemoglobin ABG Sodium ABG Potassium ABG Chloride ABG Glucose 174 H Oxyhemoglobin Carboxyhemoglobin Sodium Potassium Chloride Carbon Dioxide BUN Creatinine Glucose POC Glucose Hemoglobin A1c Lactic Acid Calcium Phosphorus Magnesium Ferritin Total Bilirubin Direct Bilirubin AST ALT Alkaline Phosphatase Ammonia Lactate Dehydrogenase Total Creatine Kinase C-Reactive Protein Total Protein Albumin Phqkb-5-Sdcbuganz Rbtnq-0-Lpooiozbm Beta Globulins Abnorm Protein Band 1 PEP Interpretation Triglycerides 369 H TSH Thyroxine (T4) Free T3 Index Arterial Blood Glucose 174 H Arterial Blood Ionized Calcium 4.3 L Immunofix Electrophor Coronavirus (PCR) Miscellaneous Test 01/28/21 01/28/21 01/28/21 10:03 10:03 10:03 WBC RBC Hgb Hct MCHC RDW Plt Count Lymph % (Auto) Lymph # (Auto) [place] # (Auto) Seg Neutrophils % Seg Neuts % (Manual) Lymphocytes % (Manual) Nucleated RBC % Seg Neutrophils # Seg Neutrophils # Man Lymphocytes # (Manual) Monocytes # (Manual) Eosinophils # (Manual) PT 17.3 H INR 1.36 H D-Dimer Heparin Anti-Xa Level ABG pH POC ABG pCO2 POC ABG pO2 ABG pO2 ABG O2 Saturation ABG Base Excess ABG Hemoglobin ABG Oxyhemoglobin ABG Sodium ABG Potassium ABG Chloride ABG Glucose Oxyhemoglobin Carboxyhemoglobin Sodium Potassium 5.2 H Chloride Carbon Dioxide BUN 69 H Creatinine 5.6 H Glucose 220 H POC Glucose Hemoglobin A1c Lactic Acid Calcium 7.7 L Phosphorus Magnesium Ferritin Total Bilirubin Direct Bilirubin AST ALT Alkaline Phosphatase Ammonia Lactate Dehydrogenase Total Creatine Kinase C-Reactive Protein Total Protein Albumin Bxvet-2-Glbuvlsyv Qjdtm-1-Ykadqzcge Beta Globulins Abnorm Protein Band 1 PEP Interpretation Triglycerides TSH 0.013 L Thyroxine (T4) Free T3 Index Arterial Blood Glucose Arterial Blood Ionized Calcium Immunofix Electrophor Coronavirus (PCR) Miscellaneous Test 01/28/21 01/28/21 01/28/21 11:34 13:40 15:31 WBC RBC Hgb Hct MCHC RDW Plt Count Lymph % (Auto) Lymph # (Auto) [place] # (Auto) Seg Neutrophils % Seg Neuts % (Manual) Lymphocytes % (Manual) Nucleated RBC % Seg Neutrophils # Seg Neutrophils # Man Lymphocytes # (Manual) Monocytes # (Manual) Eosinophils # (Manual) PT INR D-Dimer Heparin Anti-Xa Level 1.21 H ABG pH POC ABG pCO2 POC ABG pO2 ABG pO2 ABG O2 Saturation ABG Base Excess ABG Hemoglobin ABG Oxyhemoglobin ABG Sodium ABG Potassium ABG Chloride ABG Glucose Oxyhemoglobin Carboxyhemoglobin Sodium Potassium Chloride Carbon Dioxide BUN Creatinine Glucose POC Glucose 221 H Hemoglobin A1c Lactic Acid Calcium Phosphorus Magnesium 2.50 H Ferritin Total Bilirubin Direct Bilirubin AST ALT Alkaline Phosphatase Ammonia Lactate Dehydrogenase Total Creatine Kinase C-Reactive Protein Total Protein Albumin Tckjn-6-Pbencjxjw Imdeh-3-Pdonyqlvx Beta Globulins Abnorm Protein Band 1 PEP Interpretation Triglycerides TSH Thyroxine (T4) Free T3 Index Arterial Blood Glucose Arterial Blood Ionized Calcium Immunofix Electrophor Coronavirus (PCR) Miscellaneous Test 01/28/21 01/29/21 01/29/21 18:02 04:00 04:30 WBC RBC Hgb Hct MCHC RDW Plt Count Lymph % (Auto) Lymph # (Auto) [place] # (Auto) Seg Neutrophils % Seg Neuts % (Manual) Lymphocytes % (Manual) Nucleated RBC % Seg Neutrophils # Seg Neutrophils # Man Lymphocytes # (Manual) Monocytes # (Manual) Eosinophils # (Manual) PT INR D-Dimer Heparin Anti-Xa Level 0.81 H ABG pH 7.229 L POC ABG pCO2 48.8 H POC ABG pO2 ABG pO2 ABG O2 Saturation ABG Base Excess ABG Hemoglobin ABG Oxyhemoglobin ABG Sodium 135.3 L ABG Potassium 5.2 H ABG Chloride ABG Glucose 264 H Oxyhemoglobin Carboxyhemoglobin Sodium Potassium Chloride Carbon Dioxide BUN Creatinine Glucose POC Glucose 215 H Hemoglobin A1c Lactic Acid Calcium Phosphorus Magnesium Ferritin Total Bilirubin Direct Bilirubin AST ALT Alkaline Phosphatase Ammonia Lactate Dehydrogenase Total Creatine Kinase C-Reactive Protein Total Protein Albumin Opdjl-9-Lpizwmdzb Ryiwg-4-Qmnqvqqmi Beta Globulins Abnorm Protein Band 1 PEP Interpretation Triglycerides TSH Thyroxine (T4) Free T3 Index Arterial Blood Glucose 264 H Arterial Blood Ionized Calcium 4.0 L Immunofix Electrophor Coronavirus (PCR) Miscellaneous Test 01/29/21 01/29/21 01/29/21 13:23 17:56 23:12 WBC RBC Hgb Hct MCHC RDW Plt Count Lymph % (Auto) Lymph # (Auto) [place] # (Auto) Seg Neutrophils % Seg Neuts % (Manual) Lymphocytes % (Manual) Nucleated RBC % Seg Neutrophils # Seg Neutrophils # Man Lymphocytes # (Manual) Monocytes # (Manual) Eosinophils # (Manual) PT INR D-Dimer Heparin Anti-Xa Level ABG pH POC ABG pCO2 POC ABG pO2 ABG pO2 ABG O2 Saturation ABG Base Excess ABG Hemoglobin ABG Oxyhemoglobin ABG Sodium ABG Potassium ABG Chloride ABG Glucose Oxyhemoglobin Carboxyhemoglobin Sodium Potassium Chloride Carbon Dioxide BUN Creatinine Glucose POC Glucose 198 H 200 H 172 H Hemoglobin A1c Lactic Acid Calcium Phosphorus Magnesium Ferritin Total Bilirubin Direct Bilirubin AST ALT Alkaline Phosphatase Ammonia Lactate Dehydrogenase Total Creatine Kinase C-Reactive Protein Total Protein Albumin Isoht-9-Dqhndljcl Cdeea-7-Fdimeihez Beta Globulins Abnorm Protein Band 1 PEP Interpretation Triglycerides TSH Thyroxine (T4) Free T3 Index Arterial Blood Glucose Arterial Blood Ionized Calcium Immunofix Electrophor Coronavirus (PCR) Miscellaneous Test 01/29/21 01/29/21 01/30/21 Unknown Unknown 04:00 WBC RBC Hgb Hct MCHC RDW Plt Count Lymph % (Auto) Lymph # (Auto) [place] # (Auto) Seg Neutrophils % Seg Neuts % (Manual) Lymphocytes % (Manual) Nucleated RBC % Seg Neutrophils # Seg Neutrophils # Man Lymphocytes # (Manual) Monocytes # (Manual) Eosinophils # (Manual) PT INR D-Dimer Heparin Anti-Xa Level 0.85 H ABG pH 7.304 L POC ABG pCO2 POC ABG pO2 112.8 H ABG pO2 ABG O2 Saturation ABG Base Excess ABG Hemoglobin ABG Oxyhemoglobin ABG Sodium ABG Potassium 5.2 H ABG Chloride ABG Glucose 160 H Oxyhemoglobin Carboxyhemoglobin Sodium Potassium Chloride Carbon Dioxide BUN Creatinine Glucose POC Glucose Hemoglobin A1c Lactic Acid Calcium Phosphorus Magnesium Ferritin Total Bilirubin Direct Bilirubin AST ALT Alkaline Phosphatase Ammonia Lactate Dehydrogenase Total Creatine Kinase C-Reactive Protein Total Protein Albumin Rfckw-9-Rulrmvjkk Igewd-7-Zfvkarhmd Beta Globulins Abnorm Protein Band 1 PEP Interpretation Triglycerides TSH Thyroxine (T4) Free T3 Index Arterial Blood Glucose 160 H Arterial Blood Ionized Calcium 4.1 L Immunofix Electrophor Coronavirus (PCR) Miscellaneous Test Flexitest 1 H 01/30/21 01/30/21 01/30/21 04:05 05:00 05:00 WBC 27.4 H RBC Hgb 11.6 L Hct 34.8 L MCHC RDW Plt Count 126 L Lymph % (Auto) Lymph # (Auto) [place] # (Auto) Seg Neutrophils % Seg Neuts % (Manual) Lymphocytes % (Manual) Nucleated RBC % Seg Neutrophils # Seg Neutrophils # Man Lymphocytes # (Manual) Monocytes # (Manual) Eosinophils # (Manual) PT INR D-Dimer Heparin Anti-Xa Level ABG pH 7.288 L POC ABG pCO2 49.7 H POC ABG pO2 169.7 H ABG pO2 ABG O2 Saturation ABG Base Excess ABG Hemoglobin ABG Oxyhemoglobin 98.4 H ABG Sodium 132.5 L ABG Potassium 4.8 H ABG Chloride ABG Glucose 196 H Oxyhemoglobin Carboxyhemoglobin Sodium 136 L Potassium Chloride 97.4 L Carbon Dioxide BUN 75 H Creatinine 5.4 H Glucose 184 H POC Glucose Hemoglobin A1c Lactic Acid Calcium 7.4 L Phosphorus 8.60 H Magnesium 2.40 H Ferritin Total Bilirubin Direct Bilirubin AST ALT Alkaline Phosphatase Ammonia Lactate Dehydrogenase Total Creatine Kinase C-Reactive Protein Total Protein Albumin Xnkam-1-Jvmezwztp Godmq-8-Bnqctbopn Beta Globulins Abnorm Protein Band 1 PEP Interpretation Triglycerides TSH Thyroxine (T4) Free T3 Index Arterial Blood Glucose 196 H Arterial Blood Ionized Calcium 4.0 L Immunofix Electrophor Coronavirus (PCR) Miscellaneous Test 01/30/21 01/30/21 01/30/21 05:32 11:23 15:35 WBC RBC Hgb Hct MCHC RDW Plt Count Lymph % (Auto) Lymph # (Auto) [place] # (Auto) Seg Neutrophils % Seg Neuts % (Manual) Lymphocytes % (Manual) Nucleated RBC % Seg Neutrophils # Seg Neutrophils # Man Lymphocytes # (Manual) Monocytes # (Manual) Eosinophils # (Manual) PT INR D-Dimer Heparin Anti-Xa Level ABG pH POC ABG pCO2 POC ABG pO2 ABG pO2 ABG O2 Saturation ABG Base Excess ABG Hemoglobin ABG Oxyhemoglobin ABG Sodium ABG Potassium ABG Chloride ABG Glucose Oxyhemoglobin Carboxyhemoglobin Sodium Potassium Chloride Carbon Dioxide BUN Creatinine Glucose POC Glucose 169 H 177 H Hemoglobin A1c Lactic Acid Calcium Phosphorus Magnesium Ferritin Total Bilirubin Direct Bilirubin AST ALT Alkaline Phosphatase Ammonia Lactate Dehydrogenase Total Creatine Kinase C-Reactive Protein Total Protein Albumin Lwbqe-5-Bzuspcpys Amnib-9-Djbbntnoy Beta Globulins Abnorm Protein Band 1 PEP Interpretation Triglycerides TSH Thyroxine (T4) 3.3 L Free T3 Index Arterial Blood Glucose Arterial Blood Ionized Calcium Immunofix Electrophor Coronavirus (PCR) Miscellaneous Test 01/30/21 01/30/21 01/30/21 15:35 18:13 23:49 WBC RBC Hgb Hct MCHC RDW Plt Count Lymph % (Auto) Lymph # (Auto) [place] # (Auto) Seg Neutrophils % Seg Neuts % (Manual) Lymphocytes % (Manual) Nucleated RBC % Seg Neutrophils # Seg Neutrophils # Man Lymphocytes # (Manual) Monocytes # (Manual) Eosinophils # (Manual) PT INR D-Dimer Heparin Anti-Xa Level ABG pH POC ABG pCO2 POC ABG pO2 ABG pO2 ABG O2 Saturation ABG Base Excess ABG Hemoglobin ABG Oxyhemoglobin ABG Sodium ABG Potassium ABG Chloride ABG Glucose Oxyhemoglobin Carboxyhemoglobin Sodium Potassium Chloride Carbon Dioxide BUN Creatinine Glucose POC Glucose 123 H 143 H Hemoglobin A1c Lactic Acid Calcium Phosphorus Magnesium Ferritin Total Bilirubin Direct Bilirubin AST ALT Alkaline Phosphatase Ammonia Lactate Dehydrogenase Total Creatine Kinase C-Reactive Protein Total Protein Albumin Fieec-3-Xcbkbjolg Zitjc-7-Jcqzkalmp Beta Globulins Abnorm Protein Band 1 PEP Interpretation Triglycerides TSH Thyroxine (T4) Free T3 Index 1.1 L Arterial Blood Glucose Arterial Blood Ionized Calcium Immunofix Electrophor Coronavirus (PCR) Miscellaneous Test 01/31/21 01/31/21 01/31/21 03:30 03:30 03:30 WBC 31.3 H RBC Hgb 11.4 L Hct 34.6 L MCHC RDW Plt Count Lymph % (Auto) Lymph # (Auto) [place] # (Auto) Seg Neutrophils % Seg Neuts % (Manual) Lymphocytes % (Manual) Nucleated RBC % Seg Neutrophils # Seg Neutrophils # Man Lymphocytes # (Manual) Monocytes # (Manual) Eosinophils # (Manual) PT INR D-Dimer Heparin Anti-Xa Level ABG pH POC ABG pCO2 POC ABG pO2 ABG pO2 ABG O2 Saturation ABG Base Excess ABG Hemoglobin ABG Oxyhemoglobin ABG Sodium ABG Potassium ABG Chloride ABG Glucose Oxyhemoglobin Carboxyhemoglobin Sodium Potassium 5.3 H Chloride Carbon Dioxide BUN 111 H Creatinine 6.8 H Glucose 143 H POC Glucose Hemoglobin A1c Lactic Acid Calcium 7.3 L Phosphorus Magnesium Ferritin Total Bilirubin 1.70 H 1.60 H Direct Bilirubin 1.6 H AST 57 H 57 H ALT Alkaline Phosphatase Ammonia Lactate Dehydrogenase Total Creatine Kinase C-Reactive Protein Total Protein 5.5 L D 5.5 L Albumin 2.5 L 2.5 L Orbnd-2-Yjqzgrqoa Odgcd-2-Hhlrqprrs Beta Globulins Abnorm Protein Band 1 PEP Interpretation Triglycerides TSH Thyroxine (T4) Free T3 Index Arterial Blood Glucose Arterial Blood Ionized Calcium Immunofix Electrophor Coronavirus (PCR) Miscellaneous Test 01/31/21 01/31/21 01/31/21 04:54 12:00 17:19 WBC RBC Hgb Hct MCHC RDW Plt Count Lymph % (Auto) Lymph # (Auto) [place] # (Auto) Seg Neutrophils % Seg Neuts % (Manual) Lymphocytes % (Manual) Nucleated RBC % Seg Neutrophils # Seg Neutrophils # Man Lymphocytes # (Manual) Monocytes # (Manual) Eosinophils # (Manual) PT INR D-Dimer Heparin Anti-Xa Level ABG pH POC ABG pCO2 POC ABG pO2 ABG pO2 ABG O2 Saturation ABG Base Excess ABG Hemoglobin ABG Oxyhemoglobin ABG Sodium ABG Potassium ABG Chloride ABG Glucose Oxyhemoglobin Carboxyhemoglobin Sodium Potassium Chloride Carbon Dioxide BUN Creatinine Glucose POC Glucose 133 H 152 H 142 H Hemoglobin A1c Lactic Acid Calcium Phosphorus Magnesium Ferritin Total Bilirubin Direct Bilirubin AST ALT Alkaline Phosphatase Ammonia Lactate Dehydrogenase Total Creatine Kinase C-Reactive Protein Total Protein Albumin Canvu-3-Sfiyjwhcn Avfzf-7-Jzjccztzp Beta Globulins Abnorm Protein Band 1 PEP Interpretation Triglycerides TSH Thyroxine (T4) Free T3 Index Arterial Blood Glucose Arterial Blood Ionized Calcium Immunofix Electrophor Coronavirus (PCR) Miscellaneous Test 01/31/21 02/01/21 02/01/21 23:46 00:25 03:10 WBC RBC Hgb Hct MCHC RDW Plt Count Lymph % (Auto) Lymph # (Auto) [place] # (Auto) Seg Neutrophils % Seg Neuts % (Manual) Lymphocytes % (Manual) Nucleated RBC % Seg Neutrophils # Seg Neutrophils # Man Lymphocytes # (Manual) Monocytes # (Manual) Eosinophils # (Manual) PT INR D-Dimer Heparin Anti-Xa Level 0.19 L ABG pH 7.294 L POC ABG pCO2 50.8 H POC ABG pO2 77.2 L ABG pO2 ABG O2 Saturation ABG Base Excess ABG Hemoglobin ABG Oxyhemoglobin 92.9 L ABG Sodium 131.4 L ABG Potassium 5.2 H ABG Chloride 97.0 L ABG Glucose 158 H Oxyhemoglobin Carboxyhemoglobin Sodium Potassium Chloride Carbon Dioxide BUN Creatinine Glucose POC Glucose 140 H Hemoglobin A1c Lactic Acid Calcium Phosphorus Magnesium Ferritin Total Bilirubin Direct Bilirubin AST ALT Alkaline Phosphatase Ammonia Lactate Dehydrogenase Total Creatine Kinase C-Reactive Protein Total Protein Albumin Eotmw-5-Hhxbudbci Tzplo-1-Kmhbfhtdx Beta Globulins Abnorm Protein Band 1 PEP Interpretation Triglycerides TSH Thyroxine (T4) Free T3 Index Arterial Blood Glucose 158 H Arterial Blood Ionized Calcium 3.9 L Immunofix Electrophor Coronavirus (PCR) Miscellaneous Test 02/01/21 02/01/21 02/01/21 04:00 04:00 05:36 WBC RBC Hgb 11.6 L Hct 34.6 L MCHC RDW Plt Count Lymph % (Auto) Lymph # (Auto) [place] # (Auto) Seg Neutrophils % Seg Neuts % (Manual) Lymphocytes % (Manual) Nucleated RBC % Seg Neutrophils # Seg Neutrophils # Man Lymphocytes # (Manual) Monocytes # (Manual) Eosinophils # (Manual) PT INR D-Dimer Heparin Anti-Xa Level ABG pH POC ABG pCO2 POC ABG pO2 ABG pO2 ABG O2 Saturation ABG Base Excess ABG Hemoglobin ABG Oxyhemoglobin ABG Sodium ABG Potassium ABG Chloride ABG Glucose Oxyhemoglobin Carboxyhemoglobin Sodium 136 L Potassium 5.2 H Chloride 93.6 L Carbon Dioxide BUN 78 H Creatinine 5.7 H Glucose 152 H POC Glucose 167 H Hemoglobin A1c Lactic Acid Calcium 7.1 L Phosphorus Magnesium Ferritin Total Bilirubin 3.00 H Direct Bilirubin AST 117 H ALT 108 H Alkaline Phosphatase Ammonia Lactate Dehydrogenase Total Creatine Kinase C-Reactive Protein Total Protein 5.6 L Albumin 2.7 L Elwnr-5-Rboyrgigg Tsske-8-Gwahgpagf Beta Globulins Abnorm Protein Band 1 PEP Interpretation Triglycerides TSH Thyroxine (T4) Free T3 Index Arterial Blood Glucose Arterial Blood Ionized Calcium Immunofix Electrophor Coronavirus (PCR) Miscellaneous Test 02/01/21 02/01/21 02/01/21 09:15 11:42 17:28 WBC RBC Hgb Hct MCHC RDW Plt Count Lymph % (Auto) Lymph # (Auto) [place] # (Auto) Seg Neutrophils % Seg Neuts % (Manual) Lymphocytes % (Manual) Nucleated RBC % Seg Neutrophils # Seg Neutrophils # Man Lymphocytes # (Manual) Monocytes # (Manual) Eosinophils # (Manual) PT 15.1 H INR D-Dimer Heparin Anti-Xa Level ABG pH POC ABG pCO2 POC ABG pO2 ABG pO2 ABG O2 Saturation ABG Base Excess ABG Hemoglobin ABG Oxyhemoglobin ABG Sodium ABG Potassium ABG Chloride ABG Glucose Oxyhemoglobin Carboxyhemoglobin Sodium Potassium Chloride Carbon Dioxide BUN Creatinine Glucose POC Glucose 159 H 171 H Hemoglobin A1c Lactic Acid Calcium Phosphorus Magnesium Ferritin Total Bilirubin Direct Bilirubin AST ALT Alkaline Phosphatase Ammonia Lactate Dehydrogenase Total Creatine Kinase C-Reactive Protein Total Protein Albumin Wtaet-1-Tyjzyehvf Yxxgx-9-Sagonmxfu Beta Globulins Abnorm Protein Band 1 PEP Interpretation Triglycerides TSH Thyroxine (T4) Free T3 Index Arterial Blood Glucose Arterial Blood Ionized Calcium Immunofix Electrophor Coronavirus (PCR) Miscellaneous Test 02/01/21 02/02/21 02/02/21 23:06 02:58 05:06 WBC RBC Hgb Hct MCHC RDW Plt Count Lymph % (Auto) Lymph # (Auto) [place] # (Auto) Seg Neutrophils % Seg Neuts % (Manual) Lymphocytes % (Manual) Nucleated RBC % Seg Neutrophils # Seg Neutrophils # Man Lymphocytes # (Manual) Monocytes # (Manual) Eosinophils # (Manual) PT INR D-Dimer Heparin Anti-Xa Level ABG pH 7.208 L POC ABG pCO2 58.3 H POC ABG pO2 ABG pO2 ABG O2 Saturation ABG Base Excess ABG Hemoglobin 11.6 L ABG Oxyhemoglobin ABG Sodium 131.4 L ABG Potassium 5.6 H ABG Chloride 97.0 L ABG Glucose 155 H Oxyhemoglobin Carboxyhemoglobin Sodium Potassium Chloride Carbon Dioxide BUN Creatinine Glucose POC Glucose 155 H 134 H Hemoglobin A1c Lactic Acid Calcium Phosphorus Magnesium Ferritin Total Bilirubin Direct Bilirubin AST ALT Alkaline Phosphatase Ammonia Lactate Dehydrogenase Total Creatine Kinase C-Reactive Protein Total Protein Albumin Fwhkt-1-Ocrvddlbr Swdpw-2-Ptcwfholo Beta Globulins Abnorm Protein Band 1 PEP Interpretation Triglycerides TSH Thyroxine (T4) Free T3 Index Arterial Blood Glucose 155 H Arterial Blood Ionized Calcium 3.9 L Immunofix Electrophor Coronavirus (PCR) Miscellaneous Test 02/02/21 02/02/21 02/02/21 11:10 16:22 17:52 WBC RBC Hgb Hct MCHC RDW Plt Count Lymph % (Auto) Lymph # (Auto) [place] # (Auto) Seg Neutrophils % Seg Neuts % (Manual) Lymphocytes % (Manual) Nucleated RBC % Seg Neutrophils # Seg Neutrophils # Man Lymphocytes # (Manual) Monocytes # (Manual) Eosinophils # (Manual) PT INR D-Dimer Heparin Anti-Xa Level 0.10 L ABG pH POC ABG pCO2 POC ABG pO2 ABG pO2 ABG O2 Saturation ABG Base Excess ABG Hemoglobin ABG Oxyhemoglobin ABG Sodium ABG Potassium ABG Chloride ABG Glucose Oxyhemoglobin Carboxyhemoglobin Sodium Potassium Chloride Carbon Dioxide BUN Creatinine Glucose POC Glucose 179 H 170 H Hemoglobin A1c Lactic Acid Calcium Phosphorus Magnesium Ferritin Total Bilirubin Direct Bilirubin AST ALT Alkaline Phosphatase Ammonia Lactate Dehydrogenase Total Creatine Kinase C-Reactive Protein Total Protein Albumin Zwphy-3-Yayfowmpg Xypql-7-Eouvxcjyn Beta Globulins Abnorm Protein Band 1 PEP Interpretation Triglycerides TSH Thyroxine (T4) Free T3 Index Arterial Blood Glucose Arterial Blood Ionized Calcium Immunofix Electrophor Coronavirus (PCR) Miscellaneous Test 02/02/21 02/02/21 02/02/21 23:22 23:23 Unknown WBC RBC Hgb Hct MCHC RDW Plt Count Lymph % (Auto) Lymph # (Auto) [place] # (Auto) Seg Neutrophils % Seg Neuts % (Manual) Lymphocytes % (Manual) Nucleated RBC % Seg Neutrophils # Seg Neutrophils # Man Lymphocytes # (Manual) Monocytes # (Manual) Eosinophils # (Manual) PT INR D-Dimer Heparin Anti-Xa Level 0.20 L ABG pH POC ABG pCO2 POC ABG pO2 ABG pO2 ABG O2 Saturation ABG Base Excess ABG Hemoglobin ABG Oxyhemoglobin ABG Sodium ABG Potassium ABG Chloride ABG Glucose Oxyhemoglobin Carboxyhemoglobin Sodium Potassium 5.9 H Chloride 95.0 L Carbon Dioxide BUN 118 H Creatinine 7.2 H Glucose 152 H POC Glucose 139 H Hemoglobin A1c Lactic Acid Calcium 7.1 L Phosphorus Magnesium Ferritin Total Bilirubin 2.90 H Direct Bilirubin AST 134 H ALT 169 H Alkaline Phosphatase Ammonia Lactate Dehydrogenase Total Creatine Kinase C-Reactive Protein Total Protein 5.0 L Albumin 2.5 L Zekwx-0-Pchyxuucd Ezvts-3-Zeoultapg Beta Globulins Abnorm Protein Band 1 PEP Interpretation Triglycerides TSH Thyroxine (T4) Free T3 Index Arterial Blood Glucose Arterial Blood Ionized Calcium Immunofix Electrophor Coronavirus (PCR) Miscellaneous Test 02/02/21 02/02/21 02/02/21 Unknown Unknown Unknown WBC 39.4 H RBC Hgb 10.7 L Hct 32.3 L MCHC RDW Plt Count Lymph % (Auto) Lymph # (Auto) [place] # (Auto) Seg Neutrophils % Seg Neuts % (Manual) Lymphocytes % (Manual) Nucleated RBC % Seg Neutrophils # Seg Neutrophils # Man Lymphocytes # (Manual) Monocytes # (Manual) Eosinophils # (Manual) PT 15.1 H INR D-Dimer Heparin Anti-Xa Level ABG pH POC ABG pCO2 POC ABG pO2 ABG pO2 ABG O2 Saturation ABG Base Excess ABG Hemoglobin ABG Oxyhemoglobin ABG Sodium ABG Potassium ABG Chloride ABG Glucose Oxyhemoglobin Carboxyhemoglobin Sodium Potassium Chloride Carbon Dioxide BUN Creatinine Glucose POC Glucose Hemoglobin A1c Lactic Acid Calcium Phosphorus Magnesium Ferritin Total Bilirubin Direct Bilirubin AST ALT Alkaline Phosphatase Ammonia 83.0 H Lactate Dehydrogenase Total Creatine Kinase C-Reactive Protein Total Protein Albumin Xnmbs-2-Yqzocpmpf Ouoan-7-Quzdpakkm Beta Globulins Abnorm Protein Band 1 PEP Interpretation Triglycerides TSH Thyroxine (T4) Free T3 Index Arterial Blood Glucose Arterial Blood Ionized Calcium Immunofix Electrophor Coronavirus (PCR) Miscellaneous Test 02/02/21 02/03/21 02/03/21 Unknown 04:47 05:25 WBC 60.2 H* 55.8 H* RBC Hgb 11.0 L 10.3 L Hct 33.7 L 32.4 L MCHC RDW Plt Count Lymph % (Auto) Lymph # (Auto) [place] # (Auto) Seg Neutrophils % Seg Neuts % (Manual) 94.0 H Lymphocytes % (Manual) 3.0 L Nucleated RBC % Seg Neutrophils # Seg Neutrophils # Man 56.6 H Lymphocytes # (Manual) Monocytes # (Manual) 1.2 H Eosinophils # (Manual) 0.6 H PT INR D-Dimer Heparin Anti-Xa Level ABG pH POC ABG pCO2 POC ABG pO2 ABG pO2 ABG O2 Saturation ABG Base Excess ABG Hemoglobin ABG Oxyhemoglobin ABG Sodium ABG Potassium ABG Chloride ABG Glucose Oxyhemoglobin Carboxyhemoglobin Sodium Potassium Chloride Carbon Dioxide BUN Creatinine Glucose POC Glucose 158 H Hemoglobin A1c Lactic Acid Calcium Phosphorus Magnesium Ferritin Total Bilirubin Direct Bilirubin AST ALT Alkaline Phosphatase Ammonia Lactate Dehydrogenase Total Creatine Kinase C-Reactive Protein Total Protein Albumin Upcjq-7-Fjaeilmmd Hjhvp-2-Nsgokxdfb Beta Globulins Abnorm Protein Band 1 PEP Interpretation Triglycerides TSH Thyroxine (T4) Free T3 Index Arterial Blood Glucose Arterial Blood Ionized Calcium Immunofix Electrophor Coronavirus (PCR) Miscellaneous Test 02/03/21 02/03/21 02/03/21 05:25 05:25 05:25 WBC RBC Hgb Hct MCHC RDW Plt Count Lymph % (Auto) Lymph # (Auto) [place] # (Auto) Seg Neutrophils % Seg Neuts % (Manual) Lymphocytes % (Manual) Nucleated RBC % Seg Neutrophils # Seg Neutrophils # Man Lymphocytes # (Manual) Monocytes # (Manual) Eosinophils # (Manual) PT INR D-Dimer 4328.24 H Heparin Anti-Xa Level ABG pH POC ABG pCO2 POC ABG pO2 ABG pO2 ABG O2 Saturation ABG Base Excess ABG Hemoglobin ABG Oxyhemoglobin ABG Sodium ABG Potassium ABG Chloride ABG Glucose Oxyhemoglobin Carboxyhemoglobin Sodium Potassium 5.4 H 5.6 H Chloride 97.3 L Carbon Dioxide 21 L BUN 86 H 86 H Creatinine 5.8 H 5.6 H Glucose 154 H 152 H POC Glucose Hemoglobin A1c Lactic Acid Calcium 7.8 L 7.9 L Phosphorus 8.50 H Magnesium 2.50 H Ferritin Total Bilirubin 2.30 H Direct Bilirubin AST 103 H ALT 200 H Alkaline Phosphatase 135 H Ammonia Lactate Dehydrogenase 1310 H Total Creatine Kinase C-Reactive Protein 2.50 H Total Protein 5.2 L Albumin 2.2 L Bqvdf-9-Dyoumynxe Banvp-3-Toplgrfry Beta Globulins Abnorm Protein Band 1 PEP Interpretation Triglycerides TSH Thyroxine (T4) Free T3 Index Arterial Blood Glucose Arterial Blood Ionized Calcium Immunofix Electrophor Coronavirus (PCR) Miscellaneous Test 02/03/21 02/03/21 02/03/21 05:25 07:35 11:35 WBC RBC Hgb Hct MCHC RDW Plt Count Lymph % (Auto) Lymph # (Auto) [place] # (Auto) Seg Neutrophils % Seg Neuts % (Manual) Lymphocytes % (Manual) Nucleated RBC % Seg Neutrophils # Seg Neutrophils # Man Lymphocytes # (Manual) Monocytes # (Manual) Eosinophils # (Manual) PT INR D-Dimer Heparin Anti-Xa Level < 0.10 L ABG pH POC ABG pCO2 POC ABG pO2 ABG pO2 ABG O2 Saturation ABG Base Excess ABG Hemoglobin ABG Oxyhemoglobin ABG Sodium ABG Potassium ABG Chloride ABG Glucose Oxyhemoglobin Carboxyhemoglobin Sodium Potassium Chloride Carbon Dioxide BUN Creatinine Glucose POC Glucose 146 H Hemoglobin A1c Lactic Acid Calcium Phosphorus Magnesium Ferritin 2914.0 H Total Bilirubin Direct Bilirubin AST ALT Alkaline Phosphatase Ammonia Lactate Dehydrogenase Total Creatine Kinase C-Reactive Protein Total Protein Albumin Peuse-2-Hfjhaivbp Tiefr-0-Qchaxnpoq Beta Globulins Abnorm Protein Band 1 PEP Interpretation Triglycerides TSH Thyroxine (T4) Free T3 Index Arterial Blood Glucose Arterial Blood Ionized Calcium Immunofix Electrophor Coronavirus (PCR) Miscellaneous Test 02/03/21 02/03/21 02/04/21 17:45 23:41 04:00 WBC RBC Hgb Hct MCHC RDW Plt Count Lymph % (Auto) Lymph # (Auto) [place] # (Auto) Seg Neutrophils % Seg Neuts % (Manual) Lymphocytes % (Manual) Nucleated RBC % Seg Neutrophils # Seg Neutrophils # Man Lymphocytes # (Manual) Monocytes # (Manual) Eosinophils # (Manual) PT INR D-Dimer Heparin Anti-Xa Level ABG pH POC ABG pCO2 POC ABG pO2 69.2 L ABG pO2 ABG O2 Saturation ABG Base Excess ABG Hemoglobin 9.4 L ABG Oxyhemoglobin 91.5 L ABG Sodium 127.7 L ABG Potassium 4.9 H ABG Chloride ABG Glucose 172 H Oxyhemoglobin Carboxyhemoglobin Sodium Potassium Chloride Carbon Dioxide BUN Creatinine Glucose POC Glucose 138 H 150 H Hemoglobin A1c Lactic Acid Calcium Phosphorus Magnesium Ferritin Total Bilirubin Direct Bilirubin AST ALT Alkaline Phosphatase Ammonia Lactate Dehydrogenase Total Creatine Kinase C-Reactive Protein Total Protein Albumin Hynnp-7-Ghtjjyxdt Zmdsx-2-Lqxsmfcix Beta Globulins Abnorm Protein Band 1 PEP Interpretation Triglycerides TSH Thyroxine (T4) Free T3 Index Arterial Blood Glucose 172 H Arterial Blood Ionized Calcium 4.0 L Immunofix Electrophor Coronavirus (PCR) Miscellaneous Test 02/04/21 02/04/21 02/04/21 05:00 05:18 06:40 WBC 59.8 H* RBC 2.95 L Hgb 8.5 L Hct 26.2 L D MCHC RDW Plt Count Lymph % (Auto) Lymph # (Auto) [place] # (Auto) Seg Neutrophils % Seg Neuts % (Manual) Lymphocytes % (Manual) Nucleated RBC % Seg Neutrophils # Seg Neutrophils # Man Lymphocytes # (Manual) Monocytes # (Manual) Eosinophils # (Manual) PT INR D-Dimer Heparin Anti-Xa Level ABG pH POC ABG pCO2 POC ABG pO2 ABG pO2 ABG O2 Saturation ABG Base Excess ABG Hemoglobin ABG Oxyhemoglobin ABG Sodium ABG Potassium ABG Chloride ABG Glucose Oxyhemoglobin Carboxyhemoglobin Sodium 133 L Potassium Chloride 93.8 L Carbon Dioxide BUN 77 H Creatinine 5.3 H Glucose 168 H POC Glucose 163 H Hemoglobin A1c Lactic Acid Calcium 7.3 L Phosphorus Magnesium Ferritin Total Bilirubin 1.40 H Direct Bilirubin AST 110 H ALT 171 H Alkaline Phosphatase 196 H Ammonia Lactate Dehydrogenase Total Creatine Kinase C-Reactive Protein Total Protein 4.7 L Albumin 2.2 L Depaf-2-Qvdkqectu Ebgpp-8-Wmcfwyili Beta Globulins Abnorm Protein Band 1 PEP Interpretation Triglycerides TSH Thyroxine (T4) Free T3 Index Arterial Blood Glucose Arterial Blood Ionized Calcium Immunofix Electrophor Coronavirus (PCR) Miscellaneous Test 02/04/21 02/04/21 02/04/21 12:15 16:55 23:39 WBC RBC Hgb Hct MCHC RDW Plt Count Lymph % (Auto) Lymph # (Auto) [place] # (Auto) Seg Neutrophils % Seg Neuts % (Manual) Lymphocytes % (Manual) Nucleated RBC % Seg Neutrophils # Seg Neutrophils # Man Lymphocytes # (Manual) Monocytes # (Manual) Eosinophils # (Manual) PT INR D-Dimer Heparin Anti-Xa Level ABG pH POC ABG pCO2 POC ABG pO2 ABG pO2 ABG O2 Saturation ABG Base Excess ABG Hemoglobin ABG Oxyhemoglobin ABG Sodium ABG Potassium ABG Chloride ABG Glucose Oxyhemoglobin Carboxyhemoglobin Sodium Potassium Chloride Carbon Dioxide BUN Creatinine Glucose POC Glucose 135 H 138 H 129 H Hemoglobin A1c Lactic Acid Calcium Phosphorus Magnesium Ferritin Total Bilirubin Direct Bilirubin AST ALT Alkaline Phosphatase Ammonia Lactate Dehydrogenase Total Creatine Kinase C-Reactive Protein Total Protein Albumin Rrxje-3-Bcyncwtqn Cthti-6-Nfeztinqw Beta Globulins Abnorm Protein Band 1 PEP Interpretation Triglycerides TSH Thyroxine (T4) Free T3 Index Arterial Blood Glucose Arterial Blood Ionized Calcium Immunofix Electrophor Coronavirus (PCR) Miscellaneous Test 02/05/21 02/05/21 02/05/21 04:39 04:50 11:39 WBC RBC Hgb Hct MCHC RDW Plt Count Lymph % (Auto) Lymph # (Auto) [place] # (Auto) Seg Neutrophils % Seg Neuts % (Manual) Lymphocytes % (Manual) Nucleated RBC % Seg Neutrophils # Seg Neutrophils # Man Lymphocytes # (Manual) Monocytes # (Manual) Eosinophils # (Manual) PT INR D-Dimer Heparin Anti-Xa Level ABG pH 7.203 L POC ABG pCO2 POC ABG pO2 ABG pO2 64.8 L ABG O2 Saturation 86.6 L ABG Base Excess -4.2 L ABG Hemoglobin 8.6 L ABG Oxyhemoglobin ABG Sodium ABG Potassium ABG Chloride ABG Glucose Oxyhemoglobin 84.1 L Carboxyhemoglobin Sodium Potassium Chloride Carbon Dioxide BUN Creatinine Glucose POC Glucose 116 H 168 H Hemoglobin A1c Lactic Acid Calcium Phosphorus Magnesium Ferritin Total Bilirubin Direct Bilirubin AST ALT Alkaline Phosphatase Ammonia Lactate Dehydrogenase Total Creatine Kinase C-Reactive Protein Total Protein Albumin Ekxtu-5-Izqiwxouj Ezytg-5-Snamowxzl Beta Globulins Abnorm Protein Band 1 PEP Interpretation Triglycerides TSH Thyroxine (T4) Free T3 Index Arterial Blood Glucose Arterial Blood Ionized Calcium Immunofix Electrophor Coronavirus (PCR) Miscellaneous Test 02/05/21 02/05/21 02/05/21 14:32 14:32 14:32 WBC RBC Hgb 8.1 L Hct 26.5 L MCHC RDW Plt Count 132 L Lymph % (Auto) Lymph # (Auto) [place] # (Auto) Seg Neutrophils % Seg Neuts % (Manual) Lymphocytes % (Manual) Nucleated RBC % Seg Neutrophils # Seg Neutrophils # Man Lymphocytes # (Manual) Monocytes # (Manual) Eosinophils # (Manual) PT INR D-Dimer Heparin Anti-Xa Level ABG pH POC ABG pCO2 POC ABG pO2 ABG pO2 ABG O2 Saturation ABG Base Excess ABG Hemoglobin ABG Oxyhemoglobin ABG Sodium ABG Potassium ABG Chloride ABG Glucose Oxyhemoglobin Carboxyhemoglobin Sodium 129 L Potassium 5.5 H Chloride 91.3 L Carbon Dioxide BUN 95 H Creatinine 6.4 H Glucose 153 H POC Glucose Hemoglobin A1c Lactic Acid Calcium 7.1 L Phosphorus Magnesium Ferritin Total Bilirubin Direct Bilirubin AST 70 H ALT 130 H Alkaline Phosphatase 205 H Ammonia 94.0 H Lactate Dehydrogenase Total Creatine Kinase C-Reactive Protein Total Protein 4.9 L Albumin 2.1 L Udlal-0-Enxauxean Sbdbw-4-Vglcedvnu Beta Globulins Abnorm Protein Band 1 PEP Interpretation Triglycerides TSH Thyroxine (T4) Free T3 Index Arterial Blood Glucose Arterial Blood Ionized Calcium Immunofix Electrophor Coronavirus (PCR) Miscellaneous Test 02/05/21 02/05/21 02/05/21 14:32 14:32 14:32 WBC RBC Hgb Hct MCHC RDW Plt Count Lymph % (Auto) Lymph # (Auto) [place] # (Auto) Seg Neutrophils % Seg Neuts % (Manual) Lymphocytes % (Manual) Nucleated RBC % Seg Neutrophils # Seg Neutrophils # Man Lymphocytes # (Manual) Monocytes # (Manual) Eosinophils # (Manual) PT INR D-Dimer 3359.01 H Heparin Anti-Xa Level ABG pH POC ABG pCO2 POC ABG pO2 ABG pO2 ABG O2 Saturation ABG Base Excess ABG Hemoglobin ABG Oxyhemoglobin ABG Sodium ABG Potassium ABG Chloride ABG Glucose Oxyhemoglobin Carboxyhemoglobin Sodium Potassium Chloride Carbon Dioxide BUN Creatinine Glucose POC Glucose Hemoglobin A1c Lactic Acid Calcium Phosphorus Magnesium Ferritin 2509.0 H Total Bilirubin Direct Bilirubin AST ALT Alkaline Phosphatase Ammonia Lactate Dehydrogenase 1181 H Total Creatine Kinase C-Reactive Protein 5.30 H Total Protein Albumin Ylekp-3-Zaowfbxjd Onhxu-9-Ollrsrihr Beta Globulins Abnorm Protein Band 1 PEP Interpretation Triglycerides TSH Thyroxine (T4) Free T3 Index Arterial Blood Glucose Arterial Blood Ionized Calcium Immunofix Electrophor Coronavirus (PCR) Miscellaneous Test 02/05/21 02/05/21 02/05/21 14:32 14:32 16:40 WBC RBC Hgb Hct MCHC RDW Plt Count Lymph % (Auto) Lymph # (Auto) [place] # (Auto) Seg Neutrophils % Seg Neuts % (Manual) Lymphocytes % (Manual) Nucleated RBC % Seg Neutrophils # Seg Neutrophils # Man Lymphocytes # (Manual) Monocytes # (Manual) Eosinophils # (Manual) PT INR D-Dimer Heparin Anti-Xa Level 0.20 L ABG pH POC ABG pCO2 POC ABG pO2 ABG pO2 ABG O2 Saturation ABG Base Excess ABG Hemoglobin ABG Oxyhemoglobin ABG Sodium ABG Potassium ABG Chloride ABG Glucose Oxyhemoglobin Carboxyhemoglobin Sodium 128 L Potassium 5.5 H Chloride 91.2 L Carbon Dioxide BUN 97 H Creatinine 6.2 H Glucose 155 H POC Glucose Hemoglobin A1c Lactic Acid Calcium 7.3 L Phosphorus 9.80 H Magnesium Ferritin Total Bilirubin Direct Bilirubin AST ALT Alkaline Phosphatase Ammonia Lactate Dehydrogenase Total Creatine Kinase C-Reactive Protein Total Protein Albumin Sgehr-7-Nwhycmmgp Cuakw-1-Zqbhkyydz Beta Globulins Abnorm Protein Band 1 PEP Interpretation Triglycerides TSH Thyroxine (T4) Free T3 Index Arterial Blood Glucose Arterial Blood Ionized Calcium Immunofix Electrophor Coronavirus (PCR) Miscellaneous Test 02/05/21 02/06/21 02/06/21 17:07 00:19 03:07 WBC RBC Hgb Hct MCHC RDW Plt Count Lymph % (Auto) Lymph # (Auto) [place] # (Auto) Seg Neutrophils % Seg Neuts % (Manual) Lymphocytes % (Manual) Nucleated RBC % Seg Neutrophils # Seg Neutrophils # Man Lymphocytes # (Manual) Monocytes # (Manual) Eosinophils # (Manual) PT INR D-Dimer Heparin Anti-Xa Level ABG pH 7.166 L POC ABG pCO2 65.0 H POC ABG pO2 55.2 L ABG pO2 ABG O2 Saturation ABG Base Excess ABG Hemoglobin 8.9 L ABG Oxyhemoglobin 81.0 L ABG Sodium 126.4 L ABG Potassium 5.6 H ABG Chloride 93.0 L ABG Glucose 122 H Oxyhemoglobin Carboxyhemoglobin Sodium Potassium Chloride Carbon Dioxide BUN Creatinine Glucose POC Glucose 132 H 115 H Hemoglobin A1c Lactic Acid Calcium Phosphorus Magnesium Ferritin Total Bilirubin Direct Bilirubin AST ALT Alkaline Phosphatase Ammonia Lactate Dehydrogenase Total Creatine Kinase C-Reactive Protein Total Protein Albumin Rxhld-5-Oqrkgbvzx Tmrxh-0-Ctrkummmr Beta Globulins Abnorm Protein Band 1 PEP Interpretation Triglycerides TSH Thyroxine (T4) Free T3 Index Arterial Blood Glucose 122 H Arterial Blood Ionized Calcium 3.9 L Immunofix Electrophor Coronavirus (PCR) Miscellaneous Test 02/06/21 02/06/21 02/06/21 05:00 05:42 06:40 WBC 59.7 H* RBC 2.72 L Hgb 7.8 L Hct 24.9 L MCHC 31 L RDW 15.4 H Plt Count 124 L Lymph % (Auto) Lymph # (Auto) [place] # (Auto) Seg Neutrophils % Seg Neuts % (Manual) Lymphocytes % (Manual) Nucleated RBC % Seg Neutrophils # Seg Neutrophils # Man Lymphocytes # (Manual) Monocytes # (Manual) Eosinophils # (Manual) PT INR D-Dimer Heparin Anti-Xa Level ABG pH 7.139 L POC ABG pCO2 64.9 H POC ABG pO2 51.5 L ABG pO2 ABG O2 Saturation ABG Base Excess ABG Hemoglobin 8.8 L ABG Oxyhemoglobin 77.8 L ABG Sodium 125.8 L ABG Potassium 5.6 H ABG Chloride 92.0 L ABG Glucose 129 H Oxyhemoglobin Carboxyhemoglobin Sodium Potassium Chloride Carbon Dioxide BUN Creatinine Glucose POC Glucose 115 H Hemoglobin A1c Lactic Acid Calcium Phosphorus Magnesium Ferritin Total Bilirubin Direct Bilirubin AST ALT Alkaline Phosphatase Ammonia Lactate Dehydrogenase Total Creatine Kinase C-Reactive Protein Total Protein Albumin Rpoia-2-Psdlrldqi Xzqyb-0-Uccawahjz Beta Globulins Abnorm Protein Band 1 PEP Interpretation Triglycerides TSH Thyroxine (T4) Free T3 Index Arterial Blood Glucose 129 H Arterial Blood Ionized Calcium 3.9 L Immunofix Electrophor Coronavirus (PCR) Miscellaneous Test 02/06/21 02/06/21 06:40 11:39 WBC RBC Hgb Hct MCHC RDW Plt Count Lymph % (Auto) Lymph # (Auto) [place] # (Auto) Seg Neutrophils % Seg Neuts % (Manual) Lymphocytes % (Manual) Nucleated RBC % Seg Neutrophils # Seg Neutrophils # Man Lymphocytes # (Manual) Monocytes # (Manual) Eosinophils # (Manual) PT INR D-Dimer Heparin Anti-Xa Level ABG pH POC ABG pCO2 POC ABG pO2 ABG pO2 ABG O2 Saturation ABG Base Excess ABG Hemoglobin ABG Oxyhemoglobin ABG Sodium ABG Potassium ABG Chloride ABG Glucose Oxyhemoglobin Carboxyhemoglobin Sodium Potassium Chloride Carbon Dioxide BUN Creatinine Glucose POC Glucose 141 H Hemoglobin A1c Lactic Acid Calcium Phosphorus Magnesium Ferritin Total Bilirubin Direct Bilirubin AST ALT Alkaline Phosphatase Ammonia 100.0 H Lactate Dehydrogenase Total Creatine Kinase C-Reactive Protein Total Protein Albumin Bkdgi-5-Zxmbrkimg Fbtrr-1-Beeppaojq Beta Globulins Abnorm Protein Band 1 PEP Interpretation Triglycerides TSH Thyroxine (T4) Free T3 Index Arterial Blood Glucose Arterial Blood Ionized Calcium Immunofix Electrophor Coronavirus (PCR) Miscellaneous Test Chest x-ray: image reviewed (persistent and possibly increasing bilateral pneumothoraces) Allied health notes reviewed: nursing
--- NOTE | 2021-02-06 15:08 | Progress Note ---
Assessment and Plan Cultures: SARS CoV2 PCR: positive 01/22/2021 blood culture: No growth 01/25/2021 endotracheal aspirate culture: Aspergillus fumigatus 02/03/2021 blood culture: in process 02/03/2021 ET aspirate culture: in process. A/P: 55/M with obesity, admitted with: #Shock: likely secondary to severe COVID-19. #Leukemoid reaction: multifactorial, from below. On empiric abx. #Bilateral pneumonia: Secondary to COVID-19. Very high d-dimer. DVT scan negative. #Mold in sputum: ?colonization. Awaiting ID, meanwhile, initiated PO voriconazole given steroids and Actemra. Avoid ABLC given renal failure. #Acute hypoxic respiratory failure: Failed BiPAP. Requiring mechanical ventilation. #Subcutaneous emphysema, b/l pneumothorax, was seen by surgery and underwent right-sided chest tube placement 01/31/2021, left chest tube placement by Dr. Yee on 02/01/2021. #SEDRICK: creatinine elevated, on HD per nephrology. #Morbid obesity Recs: -f/u new cultures -continue IV Cefepime + Vancomycin, D3 of 5 -On PO vancomycin. Compelte 10 days if diarrhea improving -s/p Actemra on 01/26/2021 -completed steroids -continue PO voriconazole for mold in sputum given use of steroids and Actemra. Will likely need prolonged course if he survives -prophylactic anticoagulation based on d-dimer per hospital protocol. -extremely poor prognosis, consider DNR status GNat Eric MD [facility] O: [phone] F: [phone] Subjective Date of service: 02/06/21 Principal diagnosis: Ac hypoxemic resp failure; COVID-19; Pneumonia; Sepsis; Morbid obesity Interval history: Afebrile, white count stable started on p.o. vancomycin yesterday. Sputum cultures with Aspergillus fumigatus Imaging personally reviewed: Chest x-ray: Interval worsening. Objective - Exam Narrative Exam: Physical exam deferred to reduce risk of transmission of COVID-19. Please refer to primary team's note. - Constitutional Vitals: Vital Signs Temp Pulse Resp BP Pulse Ox 97.4 F L 81 27 H 119/50 72 L 02/06/21 09:29 02/06/21 14:38 02/06/21 14:30 02/06/21 14:38 02/06/21 14:38 Temperature -Last 24 Hours Temperature 97.4 F Temperature 97.8 F Temperature 97.6 F Temperature 98.3 F - Labs CBC & Chem 7: 02/06/21 06:40 02/05/21 14:32 Labs: Abnormal lab results 02/05/21 02/05/21 02/05/21 Range/Units 14:32 14:32 14:32 WBC (4.5-11.0) K/mm3 RBC (3.65-5.03) M/mm3 Hgb 8.1 L (11.8-15.2) gm/dl Hct 26.5 L (35.5-45.6) % MCHC (32-34) % RDW (13.2-15.2) % Plt Count 132 L (140-440) K/mm3 D-Dimer (0-234) ng/mlDDU Heparin Anti-Xa Level (0.3-0.7) U.I./ml ABG pH (7.320-7.450) POC ABG pCO2 (32.0-48.0) mmHg POC ABG pO2 (83-108) mmHg ABG Hemoglobin (12.0-17.5) ABG Oxyhemoglobin (94-98) ABG Sodium (136.0-145.0) mmol/L ABG Potassium (3.40-4.50) mmol/L ABG Chloride (98-107) mmol/L ABG Glucose (65-95) mg/dL Sodium 129 L (137-145) mmol/L Potassium 5.5 H (3.6-5.0) mmol/L Chloride 91.3 L (98-107) mmol/L BUN 95 H (9-20) mg/dL Creatinine 6.4 H (0.8-1.3) mg/dL Glucose 153 H (75-100) mg/dL POC Glucose (70-105) mg/dL Calcium 7.1 L (8.4-10.2) mg/dL Phosphorus (2.5-4.5) mg/dL Ferritin (30.0-300.0) ng/mL AST 70 H (5-40) units/L ALT 130 H (7-56) units/L Alkaline Phosphatase 205 H (35-129) units/L Ammonia 94.0 H (25-60) umol/L Lactate Dehydrogenase (91-180) units/L C-Reactive Protein (0.00-1.30) mg/dL Total Protein 4.9 L (6.3-8.2) g/dL Albumin 2.1 L (3.9-5) g/dL Arterial Blood Glucose (65-95) mg/dL Arterial Blood Ionized Calcium (4.6-5.3) mg/dL 02/05/21 02/05/21 02/05/21 Range/Units 14:32 14:32 14:32 WBC (4.5-11.0) K/mm3 RBC (3.65-5.03) M/mm3 Hgb (11.8-15.2) gm/dl Hct (35.5-45.6) % MCHC (32-34) % RDW (13.2-15.2) % Plt Count (140-440) K/mm3 D-Dimer 3359.01 H (0-234) ng/mlDDU Heparin Anti-Xa Level (0.3-0.7) U.I./ml ABG pH (7.320-7.450) POC ABG pCO2 (32.0-48.0) mmHg POC ABG pO2 (83-108) mmHg ABG Hemoglobin (12.0-17.5) ABG Oxyhemoglobin (94-98) ABG Sodium (136.0-145.0) mmol/L ABG Potassium (3.40-4.50) mmol/L ABG Chloride (98-107) mmol/L ABG Glucose (65-95) mg/dL Sodium (137-145) mmol/L Potassium (3.6-5.0) mmol/L Chloride (98-107) mmol/L BUN (9-20) mg/dL Creatinine (0.8-1.3) mg/dL Glucose (75-100) mg/dL POC Glucose (70-105) mg/dL Calcium (8.4-10.2) mg/dL Phosphorus (2.5-4.5) mg/dL Ferritin 2509.0 H (30.0-300.0) ng/mL AST (5-40) units/L ALT (7-56) units/L Alkaline Phosphatase (35-129) units/L Ammonia (25-60) umol/L Lactate Dehydrogenase 1181 H (91-180) units/L C-Reactive Protein 5.30 H (0.00-1.30) mg/dL Total Protein (6.3-8.2) g/dL Albumin (3.9-5) g/dL Arterial Blood Glucose (65-95) mg/dL Arterial Blood Ionized Calcium (4.6-5.3) mg/dL 02/05/21 02/05/21 02/05/21 Range/Units 14:32 14:32 16:40 WBC (4.5-11.0) K/mm3 RBC (3.65-5.03) M/mm3 Hgb (11.8-15.2) gm/dl Hct (35.5-45.6) % MCHC (32-34) % RDW (13.2-15.2) % Plt Count (140-440) K/mm3 D-Dimer (0-234) ng/mlDDU Heparin Anti-Xa Level 0.20 L (0.3-0.7) U.I./ml ABG pH (7.320-7.450) POC ABG pCO2 (32.0-48.0) mmHg POC ABG pO2 (83-108) mmHg ABG Hemoglobin (12.0-17.5) ABG Oxyhemoglobin (94-98) ABG Sodium (136.0-145.0) mmol/L ABG Potassium (3.40-4.50) mmol/L ABG Chloride (98-107) mmol/L ABG Glucose (65-95) mg/dL Sodium 128 L (137-145) mmol/L Potassium 5.5 H (3.6-5.0) mmol/L Chloride 91.2 L (98-107) mmol/L BUN 97 H (9-20) mg/dL Creatinine 6.2 H (0.8-1.3) mg/dL Glucose 155 H (75-100) mg/dL POC Glucose (70-105) mg/dL Calcium 7.3 L (8.4-10.2) mg/dL Phosphorus 9.80 H (2.5-4.5) mg/dL Ferritin (30.0-300.0) ng/mL AST (5-40) units/L ALT (7-56) units/L Alkaline Phosphatase (35-129) units/L Ammonia (25-60) umol/L Lactate Dehydrogenase (91-180) units/L C-Reactive Protein (0.00-1.30) mg/dL Total Protein (6.3-8.2) g/dL Albumin (3.9-5) g/dL Arterial Blood Glucose (65-95) mg/dL Arterial Blood Ionized Calcium (4.6-5.3) mg/dL 02/05/21 02/06/21 02/06/21 Range/Units 17:07 00:19 03:07 WBC (4.5-11.0) K/mm3 RBC (3.65-5.03) M/mm3 Hgb (11.8-15.2) gm/dl Hct (35.5-45.6) % MCHC (32-34) % RDW (13.2-15.2) % Plt Count (140-440) K/mm3 D-Dimer (0-234) ng/mlDDU Heparin Anti-Xa Level (0.3-0.7) U.I./ml ABG pH 7.166 L (7.320-7.450) POC ABG pCO2 65.0 H (32.0-48.0) mmHg POC ABG pO2 55.2 L (83-108) mmHg ABG Hemoglobin 8.9 L (12.0-17.5) ABG Oxyhemoglobin 81.0 L (94-98) ABG Sodium 126.4 L (136.0-145.0) mmol/L ABG Potassium 5.6 H (3.40-4.50) mmol/L ABG Chloride 93.0 L (98-107) mmol/L ABG Glucose 122 H (65-95) mg/dL Sodium (137-145) mmol/L Potassium (3.6-5.0) mmol/L Chloride (98-107) mmol/L BUN (9-20) mg/dL Creatinine (0.8-1.3) mg/dL Glucose (75-100) mg/dL POC Glucose 132 H 115 H (70-105) mg/dL Calcium (8.4-10.2) mg/dL Phosphorus (2.5-4.5) mg/dL Ferritin (30.0-300.0) ng/mL AST (5-40) units/L ALT (7-56) units/L Alkaline Phosphatase (35-129) units/L Ammonia (25-60) umol/L Lactate Dehydrogenase (91-180) units/L C-Reactive Protein (0.00-1.30) mg/dL Total Protein (6.3-8.2) g/dL Albumin (3.9-5) g/dL Arterial Blood Glucose 122 H (65-95) mg/dL Arterial Blood Ionized Calcium 3.9 L (4.6-5.3) mg/dL 02/06/21 02/06/21 02/06/21 Range/Units 05:00 05:42 06:40 WBC 59.7 H* (4.5-11.0) K/mm3 RBC 2.72 L (3.65-5.03) M/mm3 Hgb 7.8 L (11.8-15.2) gm/dl Hct 24.9 L (35.5-45.6) % MCHC 31 L (32-34) % RDW 15.4 H (13.2-15.2) % Plt Count 124 L (140-440) K/mm3 D-Dimer (0-234) ng/mlDDU Heparin Anti-Xa Level (0.3-0.7) U.I./ml ABG pH 7.139 L (7.320-7.450) POC ABG pCO2 64.9 H (32.0-48.0) mmHg POC ABG pO2 51.5 L (83-108) mmHg ABG Hemoglobin 8.8 L (12.0-17.5) ABG Oxyhemoglobin 77.8 L (94-98) ABG Sodium 125.8 L (136.0-145.0) mmol/L ABG Potassium 5.6 H (3.40-4.50) mmol/L ABG Chloride 92.0 L (98-107) mmol/L ABG Glucose 129 H (65-95) mg/dL Sodium (137-145) mmol/L Potassium (3.6-5.0) mmol/L Chloride (98-107) mmol/L BUN (9-20) mg/dL Creatinine (0.8-1.3) mg/dL Glucose (75-100) mg/dL POC Glucose 115 H (70-105) mg/dL Calcium (8.4-10.2) mg/dL Phosphorus (2.5-4.5) mg/dL Ferritin (30.0-300.0) ng/mL AST (5-40) units/L ALT (7-56) units/L Alkaline Phosphatase (35-129) units/L Ammonia (25-60) umol/L Lactate Dehydrogenase (91-180) units/L C-Reactive Protein (0.00-1.30) mg/dL Total Protein (6.3-8.2) g/dL Albumin (3.9-5) g/dL Arterial Blood Glucose 129 H (65-95) mg/dL Arterial Blood Ionized Calcium 3.9 L (4.6-5.3) mg/dL 02/06/21 02/06/21 Range/Units 06:40 11:39 WBC (4.5-11.0) K/mm3 RBC (3.65-5.03) M/mm3 Hgb (11.8-15.2) gm/dl Hct (35.5-45.6) % MCHC (32-34) % RDW (13.2-15.2) % Plt Count (140-440) K/mm3 D-Dimer (0-234) ng/mlDDU Heparin Anti-Xa Level (0.3-0.7) U.I./ml ABG pH (7.320-7.450) POC ABG pCO2 (32.0-48.0) mmHg POC ABG pO2 (83-108) mmHg ABG Hemoglobin (12.0-17.5) ABG Oxyhemoglobin (94-98) ABG Sodium (136.0-145.0) mmol/L ABG Potassium (3.40-4.50) mmol/L ABG Chloride (98-107) mmol/L ABG Glucose (65-95) mg/dL Sodium (137-145) mmol/L Potassium (3.6-5.0) mmol/L Chloride (98-107) mmol/L BUN (9-20) mg/dL Creatinine (0.8-1.3) mg/dL Glucose (75-100) mg/dL POC Glucose 141 H (70-105) mg/dL Calcium (8.4-10.2) mg/dL Phosphorus (2.5-4.5) mg/dL Ferritin (30.0-300.0) ng/mL AST (5-40) units/L ALT (7-56) units/L Alkaline Phosphatase (35-129) units/L Ammonia 100.0 H (25-60) umol/L Lactate Dehydrogenase (91-180) units/L C-Reactive Protein (0.00-1.30) mg/dL Total Protein (6.3-8.2) g/dL Albumin (3.9-5) g/dL Arterial Blood Glucose (65-95) mg/dL Arterial Blood Ionized Calcium (4.6-5.3) mg/dL
--- NOTE | 2021-02-06 18:19 | Progress Note ---
Assessment and Plan Assessment: Acute kidney injury Hyperkalemia Acidosis Azotemia Acute respiratory failure, status post intubation Covid pneumonia Pneumothorax Septic shock Recommendations Last hd 1.5 hrs 02/03 before hemodynamics prevented full treatment, plan for HD today, continue TTS Assess daily for HD needs with close monitoring of hemodynamic status, HD challenging due to hemodynamic status/vasopressor requirements UF as tolerated with hd chest tube --surgery note reviewed strict i/os likey ATN due to COvid infection Renally dose medications Avoid nephrotoxins [facility] referral noted, may not be fdc dialysis appropriate, palliative care discussion appropriate Prognosis guarded Subjective Date of service: 02/06/21 Principal diagnosis: Ac hypoxemic resp failure; COVID-19; Pneumonia; Sepsis; Morbid obesity Interval history: Remains intubated. Objective - Exam Narrative Exam: Deferred to reduce transmission risk, primary team exam reviewed. - Vital Signs Vital signs: Vital Signs - 12hr 02/06/21 02/06/21 02/06/21 06:30 06:45 07:00 Temperature Pulse Rate 83 82 82 Respiratory 31 H 31 H 34 H Rate Blood Pressure 113/48 107/44 118/43 O2 Sat by Pulse 90 90 90 Oximetry O2 Sat by Pulse Oximetry [ Anterior Bilateral] 02/06/21 02/06/21 02/06/21 07:15 07:30 07:45 Temperature Pulse Rate 81 81 84 Respiratory 34 H 33 H 37 H Rate Blood Pressure 114/47 118/40 116/47 O2 Sat by Pulse 86 90 91 Oximetry O2 Sat by Pulse Oximetry [ Anterior Bilateral] 02/06/21 02/06/21 02/06/21 07:55 08:00 08:15 Temperature Pulse Rate 80 81 79 Respiratory 35 H 34 H Rate Blood Pressure 116/47 114/44 120/40 O2 Sat by Pulse 90 90 90 Oximetry O2 Sat by Pulse Oximetry [ Anterior Bilateral] 02/06/21 02/06/21 02/06/21 08:30 08:45 09:00 Temperature Pulse Rate 80 81 82 Respiratory 33 H 34 H 35 H Rate Blood Pressure 117/40 109/43 117/45 O2 Sat by Pulse 90 90 90 Oximetry O2 Sat by Pulse Oximetry [ Anterior Bilateral] 02/06/21 02/06/21 02/06/21 09:15 09:29 09:30 Temperature 97.4 F L Pulse Rate 80 79 Respiratory 38 H 36 H Rate Blood Pressure 106/44 112/42 O2 Sat by Pulse 90 91 Oximetry O2 Sat by Pulse Oximetry [ Anterior Bilateral] 02/06/21 02/06/21 02/06/21 09:45 09:50 10:00 Temperature Pulse Rate 81 84 82 Respiratory 35 H 32 H 31 H Rate Blood Pressure 117/46 110/35 114/42 O2 Sat by Pulse 90 91 Oximetry O2 Sat by Pulse 92 Oximetry [ Anterior Bilateral] 02/06/21 02/06/21 02/06/21 10:05 10:15 10:30 Temperature Pulse Rate 84 75 81 Respiratory 30 H 30 H Rate Blood Pressure 110/35 116/35 108/45 O2 Sat by Pulse 90 87 Oximetry O2 Sat by Pulse Oximetry [ Anterior Bilateral] 02/06/21 02/06/21 02/06/21 10:45 10:46 11:00 Temperature Pulse Rate 82 80 80 Respiratory 26 H 26 H Rate Blood Pressure 128/46 128/46 134/49 O2 Sat by Pulse 86 87 Oximetry O2 Sat by Pulse Oximetry [ Anterior Bilateral] 02/06/21 02/06/21 02/06/21 11:15 11:30 11:45 Temperature Pulse Rate 86 83 84 Respiratory 26 H 30 H Rate Blood Pressure 129/50 126/56 108/54 O2 Sat by Pulse 88 87 Oximetry O2 Sat by Pulse Oximetry [ Anterior Bilateral] 02/06/21 02/06/21 02/06/21 11:46 12:00 12:15 Temperature 99.6 F Pulse Rate 78 85 84 Respiratory 32 H 27 H 22 Rate Blood Pressure 82/43 122/47 110/44 O2 Sat by Pulse 81 L 87 87 Oximetry O2 Sat by Pulse Oximetry [ Anterior Bilateral] 02/06/21 02/06/21 02/06/21 12:25 12:30 12:45 Temperature Pulse Rate 86 87 82 Respiratory 28 H 25 H Rate Blood Pressure 110/44 123/49 113/49 O2 Sat by Pulse 85 82 L 83 L Oximetry O2 Sat by Pulse Oximetry [ Anterior Bilateral] 02/06/21 02/06/21 02/06/21 13:00 13:15 13:30 Temperature Pulse Rate 82 82 80 Respiratory 22 27 H 32 H Rate Blood Pressure 113/49 97/38 106/44 O2 Sat by Pulse 84 81 L 75 L Oximetry O2 Sat by Pulse Oximetry [ Anterior Bilateral] 02/06/21 02/06/21 02/06/21 13:45 14:00 14:15 Temperature Pulse Rate 94 H 82 83 Respiratory 31 H 28 H 32 H Rate Blood Pressure 102/54 112/44 105/44 O2 Sat by Pulse 79 L 78 L 75 L Oximetry O2 Sat by Pulse Oximetry [ Anterior Bilateral] 02/06/21 02/06/21 02/06/21 14:24 14:30 14:38 Temperature Pulse Rate 128 H 83 81 Respiratory 27 H Rate Blood Pressure 105/44 119/50 119/50 O2 Sat by Pulse 75 L 71 L 72 L Oximetry O2 Sat by Pulse Oximetry [ Anterior Bilateral] 02/06/21 02/06/21 02/06/21 14:46 15:00 15:15 Temperature Pulse Rate 77 80 81 Respiratory 24 28 H 22 Rate Blood Pressure 115/26 108/42 118/43 O2 Sat by Pulse 74 L 70 L 69 L Oximetry O2 Sat by Pulse Oximetry [ Anterior Bilateral] 02/06/21 02/06/21 02/06/21 15:30 15:37 15:46 Temperature Pulse Rate 78 90 88 Respiratory 22 30 H Rate Blood Pressure 115/37 115/37 122/36 O2 Sat by Pulse 68 L 66 L 64 L Oximetry O2 Sat by Pulse Oximetry [ Anterior Bilateral] 02/06/21 02/06/21 02/06/21 16:00 16:15 16:30 Temperature Pulse Rate 80 83 78 Respiratory 27 H 18 23 Rate Blood Pressure 108/39 104/37 116/36 O2 Sat by Pulse 59 L 61 L 59 L Oximetry O2 Sat by Pulse Oximetry [ Anterior Bilateral] 02/06/21 02/06/21 16:45 17:00 Temperature Pulse Rate 77 82 Respiratory 25 H 28 H Rate Blood Pressure 109/37 99/37 O2 Sat by Pulse 62 L 63 L Oximetry O2 Sat by Pulse Oximetry [ Anterior Bilateral] - Lab 02/06/21 06:40 02/05/21 14:32 Most recent lab results ABG pH 7.322 (7.320-7.450) 02/06/21 15:12 ABG pCO2 62.3 mm Hg 02/05/21 04:39 ABG pO2 64.8 mm Hg (80.0-90.0) L 02/05/21 04:39 ABG HCO3 24.0 mmol/L (20.0-26.0) 02/05/21 04:39 ABG O2 Saturation 67.9 (0-100) 02/06/21 15:12 Calcium 7.1 mg/dL (8.4-10.2) L 02/05/21 14:32 Calcium 7.3 mg/dL (8.4-10.2) L 02/05/21 14:32 Phosphorus 9.80 mg/dL (2.5-4.5) H 02/05/21 16:40 Magnesium 2.50 mg/dL (1.7-2.3) H 02/03/21 05:25 Medications & Allergies - Medications Allergies/Adverse Reactions: Allergies No Known Allergies Allergy (Verified 01/27/21 15:55) Per Peg López Home Medications: Home Medications Medication Instructions Recorded Confirmed Last Taken Type No Known Home Medications [No 01/27/21 01/27/21 Unknown History Reported Home Medications] Active Medications: Generic Name Dose Route Start Last Admin Trade Name Freq PRN Reason Stop Dose Admin Albumin Human 25 gm 02/06/21 08:45 Albumin Human 25% (25 Gm/100 Ml) Inj IV MELECIO PRN Hypotension Amiodarone HCl 200 mg 01/30/21 10:00 02/06/21 13:45 Amiodarone 200 Mg Tab PO 200 mg DAILY JACK Administration Lipase/Protease/Amylase 1 each 01/27/21 11:37 Lipase 10,500/Protease 25,000/Amylase 43,750 (Units) Dr Singer FEEDTUBE PRN PRN For Clogged Feeding Tube Ascorbic Acid 500 mg 02/02/21 11:00 02/06/21 09:59 Ascorbic Acid 500 Mg Tab PO 500 mg BID JACK Administration Cholecalciferol 5,000 unit 02/02/21 11:00 02/06/21 09:59 Cholecalciferol (Vit D3) 5,000 Unit Tab PO 5,000 unit DAILY JACK Administration Dextrose 50 ml 01/29/21 12:24 Dextrose 50% In Water (25gm) 50 Ml Syringe IV Q30MIN PRN Hypoglycemia Protocol Famotidine 20 mg 01/27/21 10:00 02/06/21 09:59 Famotidine 20 Mg/2 Ml Inj IV 20 mg DAILY JACK Administration Fentanyl 50 mcg 02/03/21 15:20 Fentanyl 100 Mcg/2 Ml Inj IV Q10MIN PRN ANALGESIA Heparin Sodium (Porcine) 5,000 unit 01/28/21 09:27 Heparin 10,000 Units/10 Ml Vial IV Q6H PRN Anti-Xa Assay < 0.1 units/ml Hydrophilic Ointment 1 applic 01/25/21 13:27 Lip Therapy Vaseline TP Q2HR PRN Dry Lips Vasopressin 20 unit/ Sodium 101 mls @ 9.09 mls/hr 01/28/21 07:00 01/30/21 08:55 Chloride IV Infused TITR JACK Titration Protocol 0.03 UNITS/MIN Heparin Sodium/Sodium Chloride 25,000 unit in 500 mls @ 30 mls/hr 01/28/21 11:00 02/06/21 15:40 Heparin/ 0.45% Nacl-25,000 Unit/500 Ml IV 1,700 units/hr TITR JACK 34 mls/hr Titration Protocol 1,500 UNITS/HR Cefepime HCl 1 gm in 100 mls @ 200 mls/hr 02/02/21 18:00 02/05/21 18:52 Cefepime/Ns 1 Gm/100 Ml IV 02/06/21 18:29 200 mls/hr QPM JACK Administration Protocol Fentanyl Citrate 2,000 mcg in 100 mls @ 6.4 mls/hr 02/03/21 16:00 02/06/21 14:13 Fentanyl Drip Premix IV 1 mcg/kg/hr TITR JACK 6.4 mls/hr Administration Protocol 1 MCG/KG/HR Sodium Chloride 100 mls @ 999 mls/hr 02/06/21 08:45 Nacl 0.9% IV MELECIO PRN Hypotension NORepinephrine/NS 8 MG-250 ML 8 mg in 250 mls @ 3.75 mls/hr 02/06/21 14:00 Norepinephrine/Ns 8 Mg-250 Ml (Double Conc) IV TITRATE JACK Protocol 2 MCG/MIN Insulin Human Regular 0 units 01/29/21 13:00 02/06/21 13:13 Insulin Regular, Human 100 Units/1 Ml SUB-Q Not Given Q6HR ON LICENSE OF [facility] Protocol Metoclopramide HCl 5 mg 02/06/21 10:00 02/06/21 09:58 Metoclopramide 10 Mg/2 Ml Inj IV 5 mg Q8H JACK Administration Multi-Ingred Cream/Lotion/Oil/Oint 1 applic 01/25/21 13:27 Mineral Oil/Petrolatum, White Ophth Oint 3.5 Gm OU Q4HR PRN Dry Eye(s) Ondansetron HCl 4 mg 01/22/21 23:03 Ondansetron 4 Mg/2 Ml Inj IV Q8H PRN Nausea And Vomiting Senna/Docusate Sodium 1 tab 01/25/21 22:00 02/06/21 14:19 Sennosides/Docusate Sodium 8.6/50 Mg Tab FEEDTUBE Not Given BID JACK Simple Syrup 15 ml 01/27/21 11:37 Simple Syrup 15 Ml FEEDTUBE PRN PRN Hypoglycemia Simple Syrup 30 ml 01/27/21 11:37 Simple Syrup 15 Ml FEEDTUBE PRN PRN Hypoglycemia Sodium Bicarbonate 325 mg 01/27/21 11:37 Sodium Bicarbonate 325 Mg Tab FEEDTUBE PRN PRN For Clogged Feeding Tube Sodium Chloride 10 ml 01/22/21 23:45 02/06/21 10:15 Sodium Chloride 0.9% 10 Ml Flush Syringe IV 10 ml BID JACK Administration Sodium Chloride 10 ml 01/22/21 23:03 Sodium Chloride 0.9% 10 Ml Flush Syringe IV PRN PRN LINE FLUSH Vancomycin HCl 125 mg 02/06/21 12:00 02/06/21 13:45 Vancomycin 250 Mg/10 Ml Oral Liqd PO 02/15/21 12:01 125 mg Q6HR JACK Administration Protocol Voriconazole 300 mg 01/29/21 11:00 02/06/21 13:45 Voriconazole 200 Mg Tab PO 300 mg Q12HR JACK Administration Zinc Sulfate 220 mg 02/02/21 11:00 02/06/21 10:15 Zinc Sulfate 220 Mg Cap PO 220 mg BID JACK Administration
[2021-02-06] MEDS: CEFEPIME/NS 1 GM/100 ML 1 GM/100 ML BAG IV SCH (18:35)
[2021-02-07] MEDS: fentaNYL DRIP Premix 2,000 MCG/100 ML BAG IV SCH ×2 (00:25→17:25)
[2021-02-07] MEDS: VANCOMYCIN 250 MG/10 ML ORAL LIQD PO SCH ×4 (00:27→17:25)
[2021-02-07] MEDS: METOCLOPRAMIDE 10 MG/2 ML INJ IV SCH ×3 (01:41→17:25)
[2021-02-07] MEDS: NORepinephrine/NS 8 MG-250 ML 8 MG/250 ML INFUS..BTL IV SCH ×2 (05:44→20:14)
[2021-02-07] MEDS: INSULIN REGULAR, HUMAN 100 UNITS/1 ML SUB-Q SCH ×4 (06:44→17:33)
--- NOTE | 2021-02-07 09:17 | Progress Note ---
Subjective Principal diagnosis: Ac hypoxemic resp failure; COVID-19; Pneumonia; Sepsis; Morbid obesity Interval history: Patient was seen today for follow-up of multiple renal related issues, admitted with acute kidney injury hyperkalemia acidosis started hemodialysis, Currently dialysis dependent Friday and Friday Remains critically ill Interdisciplinary notes that also reviewed Events of 24 hours vitals labs intake output medications were reviewed Past medical history: Reviewed Family history: Reviewed Social history: Reviewed Allergies: Reviewed Physical examination: Vitals: Reviewed HEENT: No pallor or icterus oral mucosa moist Neck: Supple no JVD no thyromegaly Chest: Bilateral clear to auscultation anteriorly Heart: Regular rate and rhythm S1-S2 heard no S3-S4 Abdomen: Soft nontender no voluntary guarding rigidity rebound Extremity: Dry skin less than 1+ peripheral edema Psychiatric: No evidence of agitation and aggression noted Dermatology: No petechial rashes Labs and x-rays: Reviewed from today Assessment and plan #Acute kidney injury, admitted with hyperkalemia acidosis azotemia, respiratory failure with Covid pneumonia Patient has been placed on him dialysis Friday will be done as tolerated, ultrafiltration goal must be adjusted on a daily basis, dialysis nurse to monitor for any hemodynamic instability, Patient is doing very poorly overall #Respiratory failure currently intubated, #Hyponatremia: Chronic: Monitor and follow #Mild hyperkalemia, status post dialysis, will do a follow-up on the potassium level today #Acidosis appears to have corrected #Hypocalcemia check ionized calcium, #Elevated ammonia level currently at 100, #Low-grade thrombocytopenia currently 124,000 which was 151,000 on February 02 Noted to have possible leukemoid reaction Time spent in critical care setting 34 minuteAnd #Admitted with septic shock, bilateral pneumonia, respiratory failure, bilateral pneumothorax, Covid infection, We'll continue to follow and make recommendation for renal standpoint Objective - Vital Signs Vital signs: Vital Signs - 12hr 02/06/21 02/06/21 02/06/21 21:30 21:45 22:00 Temperature Pulse Rate 83 82 82 Respiratory 33 H 32 H 23 Rate Blood Pressure 113/47 112/44 113/45 O2 Sat by Pulse 67 L 66 L 67 L Oximetry 02/06/21 02/06/21 02/06/21 22:10 22:15 22:24 Temperature Pulse Rate 81 82 80 Respiratory 25 H 23 28 H Rate Blood Pressure 113/45 118/44 113/45 O2 Sat by Pulse 67 L 69 L 68 L Oximetry 02/06/21 02/06/21 02/06/21 22:30 22:45 23:00 Temperature Pulse Rate 80 80 81 Respiratory 28 H 30 H 27 H Rate Blood Pressure 116/45 114/43 118/43 O2 Sat by Pulse 66 L 67 L 67 L Oximetry 02/06/21 02/06/21 02/06/21 23:15 23:30 23:45 Temperature Pulse Rate 75 78 80 Respiratory 32 H 31 H 31 H Rate Blood Pressure 109/44 109/47 112/49 O2 Sat by Pulse 69 L 68 L 71 L Oximetry 02/07/21 02/07/21 02/07/21 00:00 00:15 00:19 Temperature 98.9 F Pulse Rate 80 79 81 Respiratory 30 H 31 H Rate Blood Pressure 93/44 104/47 104/47 O2 Sat by Pulse 70 L 72 L 66 L Oximetry 02/07/21 02/07/21 02/07/21 00:30 00:45 01:00 Temperature Pulse Rate 79 78 75 Respiratory 31 H 27 H 30 H Rate Blood Pressure 113/47 114/52 113/47 O2 Sat by Pulse 70 L 69 L 70 L Oximetry 02/07/21 02/07/21 02/07/21 01:15 01:30 01:45 Temperature Pulse Rate 77 78 77 Respiratory 30 H 29 H 30 H Rate Blood Pressure 118/50 121/50 124/45 O2 Sat by Pulse 71 L 74 L 74 L Oximetry 02/07/21 02/07/21 02/07/21 02:00 02:15 02:30 Temperature Pulse Rate 79 75 78 Respiratory 32 H 32 H 33 H Rate Blood Pressure 123/45 121/47 127/54 O2 Sat by Pulse 75 L 75 L 75 L Oximetry 02/07/21 02/07/21 02/07/21 02:45 03:00 03:15 Temperature Pulse Rate 76 77 75 Respiratory 29 H 27 H 23 Rate Blood Pressure 121/54 124/49 123/52 O2 Sat by Pulse 74 L 75 L 73 L Oximetry 02/07/21 02/07/21 02/07/21 03:28 03:30 03:45 Temperature Pulse Rate 78 76 74 Respiratory 21 30 H Rate Blood Pressure 116/49 116/49 125/47 O2 Sat by Pulse 75 L 74 L 76 L Oximetry 02/07/21 02/07/21 02/07/21 04:00 04:15 04:30 Temperature 98.8 F Pulse Rate 70 75 76 Respiratory 23 31 H 27 H Rate Blood Pressure 130/50 122/46 117/47 O2 Sat by Pulse 62 L 77 L 77 L Oximetry 02/07/21 02/07/21 02/07/21 04:45 05:00 05:15 Temperature Pulse Rate 73 73 72 Respiratory 30 H 30 H 28 H Rate Blood Pressure 123/46 119/46 120/56 O2 Sat by Pulse 79 L 78 L 79 L Oximetry 02/07/21 02/07/21 02/07/21 05:30 05:45 06:00 Temperature Pulse Rate 72 64 72 Respiratory 31 H 28 H 24 Rate Blood Pressure 131/52 139/50 131/52 O2 Sat by Pulse 78 L 79 L 79 L Oximetry 02/07/21 02/07/21 02/07/21 06:15 06:20 06:30 Temperature Pulse Rate 70 69 72 Respiratory 27 H 28 H Rate Blood Pressure 134/47 134/47 133/51 O2 Sat by Pulse 81 L 81 L 80 L Oximetry 02/07/21 02/07/21 02/07/21 06:45 07:00 07:15 Temperature 97.7 F Pulse Rate 69 71 70 Respiratory 29 H 30 H 31 H Rate Blood Pressure 136/50 135/48 138/48 O2 Sat by Pulse 80 L 82 L 82 L Oximetry 02/07/21 08:09 Temperature Pulse Rate 72 Respiratory Rate Blood Pressure 134/56 O2 Sat by Pulse 84 Oximetry - Lab 02/06/21 06:40 02/08/21 01:28 Most recent lab results ABG pH 7.322 (7.320-7.450) 02/06/21 15:12 ABG pCO2 62.3 mm Hg 02/05/21 04:39 ABG pO2 64.8 mm Hg (80.0-90.0) L 02/05/21 04:39 ABG HCO3 24.0 mmol/L (20.0-26.0) 02/05/21 04:39 ABG O2 Saturation 67.9 (0-100) 02/06/21 15:12 Calcium 7.1 mg/dL (8.4-10.2) L 02/05/21 14:32 Calcium 7.3 mg/dL (8.4-10.2) L 02/05/21 14:32 Phosphorus 9.80 mg/dL (2.5-4.5) H 02/05/21 16:40 Magnesium 2.50 mg/dL (1.7-2.3) H 02/03/21 05:25 Medications & Allergies - Medications Allergies/Adverse Reactions: Allergies No Known Allergies Allergy (Verified 01/27/21 15:55) Per Peg López Home Medications: Home Medications Medication Instructions Recorded Confirmed Last Taken Type No Known Home Medications [No 01/27/21 01/27/21 Unknown History Reported Home Medications] Active Medications: Generic Name Dose Route Start Last Admin Trade Name Freq PRN Reason Stop Dose Admin Albumin Human 25 gm 02/06/21 08:45 Albumin Human 25% (25 Gm/100 Ml) Inj IV MELECIO PRN Hypotension Amiodarone HCl 200 mg 01/30/21 10:00 02/06/21 13:45 Amiodarone 200 Mg Tab PO 200 mg DAILY JACK Administration Lipase/Protease/Amylase 1 each 01/27/21 11:37 Lipase 10,500/Protease 25,000/Amylase 43,750 (Units) Dr Singer FEEDTUBE PRN PRN For Clogged Feeding Tube Ascorbic Acid 500 mg 02/02/21 11:00 02/06/21 21:30 Ascorbic Acid 500 Mg Tab PO 500 mg BID JACK Administration Cholecalciferol 5,000 unit 02/02/21 11:00 02/06/21 09:59 Cholecalciferol (Vit D3) 5,000 Unit Tab PO 5,000 unit DAILY JACK Administration Dextrose 50 ml 01/29/21 12:24 Dextrose 50% In Water (25gm) 50 Ml Syringe IV Q30MIN PRN Hypoglycemia Protocol Famotidine 20 mg 01/27/21 10:00 02/06/21 09:59 Famotidine 20 Mg/2 Ml Inj IV 20 mg DAILY JACK Administration Fentanyl 50 mcg 02/03/21 15:20 Fentanyl 100 Mcg/2 Ml Inj IV Q10MIN PRN ANALGESIA Heparin Sodium (Porcine) 5,000 unit 01/28/21 09:27 Heparin 10,000 Units/10 Ml Vial IV Q6H PRN Anti-Xa Assay < 0.1 units/ml Hydrophilic Ointment 1 applic 01/25/21 13:27 Lip Therapy Vaseline TP Q2HR PRN Dry Lips Vasopressin 20 unit/ Sodium 101 mls @ 9.09 mls/hr 01/28/21 07:00 01/30/21 08:55 Chloride IV Infused TITR JACK Titration Protocol 0.03 UNITS/MIN Heparin Sodium/Sodium Chloride 25,000 unit in 500 mls @ 30 mls/hr 01/28/21 11:00 02/07/21 02:00 Heparin/ 0.45% Nacl-25,000 Unit/500 Ml IV 1,850 units/hr TITR JACK 37 mls/hr Titration Protocol 1,500 UNITS/HR Fentanyl Citrate 2,000 mcg in 100 mls @ 6.4 mls/hr 02/03/21 16:00 02/07/21 00:25 Fentanyl Drip Premix IV 1 mcg/kg/hr TITR JACK 6.4 mls/hr Administration Protocol 1 MCG/KG/HR Sodium Chloride 100 mls @ 999 mls/hr 02/06/21 08:45 Nacl 0.9% IV MELECIO PRN Hypotension NORepinephrine/NS 8 MG-250 ML 8 mg in 250 mls @ 3.75 mls/hr 02/06/21 14:00 02/07/21 05:44 Norepinephrine/Ns 8 Mg-250 Ml (Double Conc) IV 14 mcg/min TITRATE JACK 26.25 mls/hr Administration Protocol 2 MCG/MIN Insulin Human Regular 0 units 01/29/21 13:00 02/07/21 06:44 Insulin Regular, Human 100 Units/1 Ml SUB-Q Not Given Q6HR [facility] Protocol Metoclopramide HCl 5 mg 02/06/21 10:00 02/07/21 01:41 Metoclopramide 10 Mg/2 Ml Inj IV 5 mg Q8H [facility] Administration Multi-Ingred Cream/Lotion/Oil/Oint 1 applic 01/25/21 13:27 Mineral Oil/Petrolatum, White Ophth Oint 3.5 Gm OU Q4HR PRN Dry Eye(s) Ondansetron HCl 4 mg 01/22/21 23:03 Ondansetron 4 Mg/2 Ml Inj IV Q8H PRN Nausea And Vomiting Senna/Docusate Sodium 1 tab 01/25/21 22:00 02/06/21 21:31 Sennosides/Docusate Sodium 8.6/50 Mg Tab FEEDTUBE Not Given BID [facility] Simple Syrup 15 ml 01/27/21 11:37 Simple Syrup 15 Ml FEEDTUBE PRN PRN Hypoglycemia Simple Syrup 30 ml 01/27/21 11:37 Simple Syrup 15 Ml FEEDTUBE PRN PRN Hypoglycemia Sodium Bicarbonate 325 mg 01/27/21 11:37 Sodium Bicarbonate 325 Mg Tab FEEDTUBE PRN PRN For Clogged Feeding Tube Sodium Chloride 10 ml 01/22/21 23:45 02/06/21 21:33 Sodium Chloride 0.9% 10 Ml Flush Syringe IV 10 ml BID JACK Administration Sodium Chloride 10 ml 01/22/21 23:03 Sodium Chloride 0.9% 10 Ml Flush Syringe IV PRN PRN LINE FLUSH Vancomycin HCl 125 mg 02/06/21 12:00 02/07/21 05:41 Vancomycin 250 Mg/10 Ml Oral Liqd PO 02/15/21 12:01 125 mg Q6HR JACK Administration Protocol Voriconazole 300 mg 01/29/21 11:00 02/06/21 21:32 Voriconazole 200 Mg Tab PO 300 mg Q12HR JACK Administration Zinc Sulfate 220 mg 02/02/21 11:00 02/06/21 21:30 Zinc Sulfate 220 Mg Cap PO 220 mg BID JACK Administration
[2021-02-07] MEDS: VORICONAZOLE 200 MG TAB PO SCH ×2 (10:41→22:29)
[2021-02-07] MEDS: ASCORBIC ACID 500 MG TAB PO SCH ×2 (10:41→22:30)
[2021-02-07] MEDS: SENNOSIDES/DOCUSATE SODIUM 8.6/50 MG TAB FEEDTUBE SCH (10:41)
[2021-02-07] MEDS: CHOLECALCIFEROL (VIT D3) 5,000 UNIT TAB PO SCH (10:41)
[2021-02-07] MEDS: FAMOTIDINE 20 MG/2 ML INJ IV SCH (10:42)
[2021-02-07] MEDS: ZINC SULFATE 220 MG CAP PO SCH ×2 (10:42→22:30)
[2021-02-07] MEDS: AMIODARONE 200 MG TAB PO SCH (10:42)
--- NOTE | 2021-02-07 12:39 | Progress Note ---
Assessment and Plan Acute Respiratory Failure COVID-19 PNA Septic Shock * Patient remains intubated. ID following * Wean pressors as tolerated SEDRICK (initiated on dialysis) * Nephrology following SVT Sinus Rhythm PAF with RVR * Patient still currently sinus 60s-80s on monitor. * Echo 01/29/2021- Normal EF. Technically difficult study, no interpretable images were seen. * Continue anticoagulation with IV heparin gtt for now. * Continue Amio 200mg PO daily Will continue to follow. Pt seen in conjunction with Dr. Rosales, who agrees with the assessment and plan of care. - Patient Problems (1) Acute respiratory failure due to COVID-19 Current Visit: Yes Status: Acute (2) Atrial fibrillation with RVR Current Visit: Yes Status: Acute (3) Hypotension Current Visit: Yes Status: Acute (4) Morbid obesity with BMI of 40.0-44.9, adult Current Visit: Yes Status: Acute (5) Multifocal pneumonia Current Visit: Yes Status: Acute (6) Sepsis Current Visit: Yes Status: Acute (7) Chronic venous insufficiency Current Visit: Yes Status: Chronic Subjective Date of service: 02/07/21 Principal diagnosis: Ac hypoxemic resp failure; COVID-19; Pneumonia; Sepsis; Morbid obesity Interval history: Patient remain intubated. sinus 70s monitor Objective Last Vital Signs Temp 97.5 F L 02/07/21 11:29 Pulse 66 02/07/21 12:00 Resp 30 H 02/07/21 12:00 BP 118/52 02/07/21 12:00 Pulse Ox 88 02/07/21 12:00 - Physical Examination General: Other (intubated) HEENT: Positive: Normocephaly Neck: Positive: trachea midline. Negative: JVD/HJR Cardiac: Positive: Reg Rate and Rhythm Lungs: Positive: Ventilated Respirations Neuro: Positive: Other (intubated) Abdomen: Positive: Soft Skin: Negative: Rash Musculoskeletal: No Fluid Collection Extremities: Present: lower extr. pulses, edema, Other (chronic changes) - Imaging and Cardiology EKG: report reviewed, image reviewed Echo: report reviewed - EKG Sinus rhythms and dysrhythmias: sinus rhythm Repolarization changes or abnormalities: nonspecific abnormality, ST segment, and/or T wave - Allied health notes Allied health notes reviewed: nursing
[2021-02-07] MEDS: HEPARIN/ 0.45% NACL DRIP 25,000 UNIT/500 ML BAG IV SCH (12:45)
--- NOTE | 2021-02-07 13:13 | Progress Note ---
Assessment and Plan Acute hypoxemic respiratory failure COVID-19 infection Multifocal pneumonia Hypernatremia Sepsis Morbid obesity with BMI of 40.0-44.9, adult (discussed gravity of situation with his and the likely futility of resuscitative efforts; she feels like he will not want to suffer further and has decided to go with DNR status) - continue on PRVC/AC mode - will attempt to wean peep down as tolerated if O2 sats stay in 80's (peep up to 20 cm H2O) - grave prognosis - continue care as below otherwise; - continue empiric oral Vancomycin - continue all chest tubes to wall suction (continuous) - continue HD/UF per nephrology prescription for toxin and volume clearance - Vasopressors for target MAP > 65 mmHg - Daily SAT and SBT assessment as tolerated - VAP bundle addressed - continue lung protective strategies - continue bronchodilators with pulmonary hygiene per RT - wean per pulmonary driven protocols otherwise - avoid nephrotoxins, renally dose all medications - continue to avoid benzodiazepine's, reduce the possibility of delirium - complete AB's per ID rec's - prn analgesia per CPOT score - Maintenance of sleep-wake cycle, avoid delirium - enteral nutritional support at goal rate as tolerated - G.I. & VTE prophylaxis - PT/OT/ROM exercises - continue mobility protocols for pressure ulcer prophylaxis - Monitor hemodynamics closely - continue other care per attending / other consultants - discharge planning ongoing concurrently COVID SPECIFIC INTERVENTIONS - Remdesivir as per ID/Pulmonary developed protocols (receiving) - continue systemic steroids for severe COVID-19 infection (Dexamethasone) - follow repeat COVID tests results - zinc and vitamin C supplementation - Monitor inflammatory markers per facility protocol - ferritin, Ddimer, CRP - therapeutic anticoagulation per system Protocol based on d-dimer and clinical considerations (VTE prophylaxis doses now) - Continue contact and airborne isolation .... Re-evaluate in am & prn CONDITION: CRITICAL PROGNOSIS: GRAVE CODE STATUS: FULL CODE The high probability of a clinically significant, sudden or life-threatening deterioration of the [respiratory, cardiovascular & neurologic] system(s) required my full and direct attention, intervention and personal management. The aggregate critical care time was [32] minutes without overlap. Time includes spent on; [x] Data Review and interpretation [x] Patient assessment and monitoring of vital signs [x] Documentation [x] Medication orders and management Subjective Date of service: 02/07/21 Principal diagnosis: Ac hypoxemic resp failure; COVID-19; Pneumonia; Sepsis; Morbid obesity Interval history: Patient is seen today for: Acute hypoxemic respiratory failure; COVID- 19infection; Multifocal pneumonia; Hypernatremia; Sepsis; Morbid obesity Seen and examined at bedside; 24hour events reviewed; nursing and respiratory care staff consulted; no adverse overnight events reported to me; resting in bed; remains on MVS; remains hypoxemic; still with chest tube leak bilaterally; no emesis or overt aspiration; AMS is persistent Objective Vital Signs - 12hr 02/07/21 02/07/21 02/07/21 01:15 01:30 01:45 Temperature Pulse Rate 77 78 77 Respiratory 30 H 29 H 30 H Rate Blood Pressure 118/50 121/50 124/45 O2 Sat by Pulse 71 L 74 L 74 L Oximetry 02/07/21 02/07/21 02/07/21 02:00 02:15 02:30 Temperature Pulse Rate 79 75 78 Respiratory 32 H 32 H 33 H Rate Blood Pressure 123/45 121/47 127/54 O2 Sat by Pulse 75 L 75 L 75 L Oximetry 02/07/21 02/07/21 02/07/21 02:45 03:00 03:15 Temperature Pulse Rate 76 77 75 Respiratory 29 H 27 H 23 Rate Blood Pressure 121/54 124/49 123/52 O2 Sat by Pulse 74 L 75 L 73 L Oximetry 02/07/21 02/07/21 02/07/21 03:28 03:30 03:45 Temperature Pulse Rate 78 76 74 Respiratory 21 30 H Rate Blood Pressure 116/49 116/49 125/47 O2 Sat by Pulse 75 L 74 L 76 L Oximetry 02/07/21 02/07/21 02/07/21 04:00 04:15 04:30 Temperature 98.8 F Pulse Rate 70 75 76 Respiratory 23 31 H 27 H Rate Blood Pressure 130/50 122/46 117/47 O2 Sat by Pulse 62 L 77 L 77 L Oximetry 02/07/21 02/07/21 02/07/21 04:45 05:00 05:15 Temperature Pulse Rate 73 73 72 Respiratory 30 H 30 H 28 H Rate Blood Pressure 123/46 119/46 120/56 O2 Sat by Pulse 79 L 78 L 79 L Oximetry 02/07/21 02/07/21 02/07/21 05:30 05:45 06:00 Temperature Pulse Rate 72 64 72 Respiratory 31 H 28 H 24 Rate Blood Pressure 131/52 139/50 131/52 O2 Sat by Pulse 78 L 79 L 79 L Oximetry 02/07/21 02/07/21 02/07/21 06:15 06:20 06:30 Temperature Pulse Rate 70 69 72 Respiratory 27 H 28 H Rate Blood Pressure 134/47 134/47 133/51 O2 Sat by Pulse 81 L 81 L 80 L Oximetry 02/07/21 02/07/21 02/07/21 06:45 07:00 07:15 Temperature 97.7 F Pulse Rate 69 71 70 Respiratory 29 H 30 H 31 H Rate Blood Pressure 136/50 135/48 138/48 O2 Sat by Pulse 80 L 82 L 82 L Oximetry 02/07/21 02/07/21 02/07/21 07:30 07:45 08:00 Temperature Pulse Rate 70 71 64 Respiratory 29 H 30 H 30 H Rate Blood Pressure 135/49 131/49 134/56 O2 Sat by Pulse 82 L 83 L 82 L Oximetry 02/07/21 02/07/21 02/07/21 08:09 08:15 08:30 Temperature Pulse Rate 72 72 68 Respiratory 30 H 29 H Rate Blood Pressure 134/56 129/51 122/55 O2 Sat by Pulse 84 84 84 Oximetry 02/07/21 02/07/21 02/07/21 08:45 09:00 09:15 Temperature Pulse Rate 70 69 71 Respiratory 30 H 30 H 22 Rate Blood Pressure 110/53 117/48 125/53 O2 Sat by Pulse 84 85 85 Oximetry 02/07/21 02/07/21 02/07/21 09:30 09:45 10:00 Temperature Pulse Rate 69 68 67 Respiratory 30 H 30 H 23 Rate Blood Pressure 117/50 116/45 115/52 O2 Sat by Pulse 84 86 85 Oximetry 02/07/21 02/07/21 02/07/21 10:15 10:30 10:45 Temperature Pulse Rate 68 63 79 Respiratory 21 28 H 29 H Rate Blood Pressure 122/44 114/47 116/49 O2 Sat by Pulse 86 86 84 Oximetry 02/07/21 02/07/21 02/07/21 11:00 11:15 11:21 Temperature Pulse Rate 69 64 66 Respiratory 29 H 25 H Rate Blood Pressure 114/44 119/52 119/52 O2 Sat by Pulse 87 87 87 Oximetry 02/07/21 02/07/21 02/07/21 11:29 11:30 11:45 Temperature 97.5 F L Pulse Rate 66 67 Respiratory 29 H 29 H Rate Blood Pressure 121/51 121/50 O2 Sat by Pulse 87 88 Oximetry 02/07/21 12:00 Temperature Pulse Rate 66 Respiratory 30 H Rate Blood Pressure 118/52 O2 Sat by Pulse 87 Oximetry Constitutional: appears uncomfortable, other (middle aged obese male with mildly increased respiratory effort at rest on MVS) Eyes: non-icteric ENT: oropharynx moist, other (ETT 24 cm BRE) Neck: supple, no lymphadenopathy, no JVD, other (large circumference) Effort: mildly labored Ascultation: Bilateral: diminished breath sounds, rhonchi, other (L&R chest tubes in place; + SQ emphysema) Percussion: Bilateral: not dull Cardiovascular: regular rate and rhythm Gastrointestinal: normoactive bowel sounds, soft, non-tender, non-distended (protuberant) Integumentary: normal Extremities: no cyanosis, no edema, pink and warm, pulses normal Neurologic: pupils equal and round, unable to assess (sedated) Psychiatric: other (unable top assess re: AMS) CBC and BMP: 02/06/21 06:40 02/08/21 01:28 ABG, PT/INR, D-dimer: ABG ABG pH 7.322 (7.320-7.450) 02/06/21 15:12 POC ABG pCO2 50.6 mmHg (32.0-48.0) H 02/06/21 15:12 ABG pCO2 62.3 mm Hg 02/05/21 04:39 POC ABG pO2 36.5 mmHg (83-108) L 02/06/21 15:12 ABG pO2 64.8 mm Hg (80.0-90.0) L 02/05/21 04:39 POC ABG HCO3 25.6 02/06/21 15:12 ABG O2 Saturation 67.9 (0-100) 02/06/21 15:12 PT/INR, D-dimer PT 15.1 Sec. (12.2-14.9) H 02/02/21 Unknown INR 1.13 (0.87-1.13) 02/02/21 Unknown D-Dimer 3359.01 ng/mlDDU (0-234) H 02/05/21 14:32 Abnormal lab findings: Abnormal Labs 01/22/21 01/22/21 01/22/21 11:06 11:06 11:06 WBC RBC Hgb Hct MCHC RDW Plt Count Lymph % (Auto) Lymph # (Auto) [place] # (Auto) Seg Neutrophils % Seg Neuts % (Manual) Lymphocytes % (Manual) Nucleated RBC % Seg Neutrophils # Seg Neutrophils # Man Lymphocytes # (Manual) Monocytes # (Manual) Eosinophils # (Manual) PT INR D-Dimer 2625.11 H Heparin Anti-Xa Level ABG pH POC ABG pCO2 POC ABG pO2 ABG pO2 ABG O2 Saturation ABG Base Excess ABG Hemoglobin ABG Oxyhemoglobin ABG Sodium ABG Potassium ABG Chloride ABG Glucose Oxyhemoglobin Carboxyhemoglobin Sodium Potassium Chloride Carbon Dioxide BUN Creatinine Glucose 130 H POC Glucose Hemoglobin A1c Lactic Acid Calcium Phosphorus Magnesium Ferritin 557.5 H Total Bilirubin Direct Bilirubin AST ALT Alkaline Phosphatase Ammonia Lactate Dehydrogenase 799 H Total Creatine Kinase C-Reactive Protein 3.30 H Total Protein Albumin Awzzu-5-Nwohnydjj Gnpli-0-Xvtkgxirn Beta Globulins Abnorm Protein Band 1 PEP Interpretation Triglycerides TSH Thyroxine (T4) Free T3 Index Arterial Blood Glucose Arterial Blood Ionized Calcium Immunofix Electrophor Coronavirus (PCR) Miscellaneous Test 01/22/21 01/22/21 01/22/21 11:06 11:06 11:06 WBC 19.2 H RBC 5.63 H Hgb 15.8 H Hct 49.0 H MCHC RDW Plt Count Lymph % (Auto) Lymph # (Auto) [place] # (Auto) Seg Neutrophils % Seg Neuts % (Manual) 92.0 H Lymphocytes % (Manual) 1.0 L Nucleated RBC % 1.0 H Seg Neutrophils # Seg Neutrophils # Man 17.7 H Lymphocytes # (Manual) 0.2 L Monocytes # (Manual) 1.0 H Eosinophils # (Manual) PT INR D-Dimer Heparin Anti-Xa Level ABG pH POC ABG pCO2 POC ABG pO2 ABG pO2 ABG O2 Saturation ABG Base Excess ABG Hemoglobin ABG Oxyhemoglobin ABG Sodium ABG Potassium ABG Chloride ABG Glucose Oxyhemoglobin Carboxyhemoglobin Sodium Potassium 3.3 L Chloride Carbon Dioxide 20 L BUN 32 H Creatinine Glucose 130 H POC Glucose Hemoglobin A1c Lactic Acid 4.20 H* Calcium Phosphorus Magnesium Ferritin Total Bilirubin Direct Bilirubin AST ALT Alkaline Phosphatase Ammonia Lactate Dehydrogenase Total Creatine Kinase C-Reactive Protein Total Protein Albumin 2.9 L Rlfcf-9-Wowsipfxw Geicy-7-Ymxhrjide Beta Globulins Abnorm Protein Band 1 PEP Interpretation Triglycerides TSH Thyroxine (T4) Free T3 Index Arterial Blood Glucose Arterial Blood Ionized Calcium Immunofix Electrophor Coronavirus (PCR) Miscellaneous Test 01/22/21 01/22/21 01/23/21 11:06 12:03 05:29 WBC 19.0 H RBC 5.24 H Hgb 15.3 H Hct 46.0 H MCHC RDW Plt Count Lymph % (Auto) 4.4 L Lymph # (Auto) 0.8 L [place] # (Auto) 1.2 H Seg Neutrophils % 89.1 H Seg Neuts % (Manual) Lymphocytes % (Manual) Nucleated RBC % Seg Neutrophils # 16.9 H Seg Neutrophils # Man Lymphocytes # (Manual) Monocytes # (Manual) Eosinophils # (Manual) PT INR D-Dimer Heparin Anti-Xa Level ABG pH POC ABG pCO2 30.7 L POC ABG pO2 61.4 L ABG pO2 ABG O2 Saturation ABG Base Excess ABG Hemoglobin ABG Oxyhemoglobin 90.5 L ABG Sodium ABG Potassium ABG Chloride ABG Glucose Oxyhemoglobin Carboxyhemoglobin 1.7 H Sodium Potassium Chloride Carbon Dioxide BUN Creatinine Glucose POC Glucose Hemoglobin A1c 6.2 H Lactic Acid Calcium Phosphorus Magnesium Ferritin Total Bilirubin Direct Bilirubin AST ALT Alkaline Phosphatase Ammonia Lactate Dehydrogenase Total Creatine Kinase C-Reactive Protein Total Protein Albumin Brtgz-7-Zcwbrkbai Oqfkk-2-Lvplrokvb Beta Globulins Abnorm Protein Band 1 PEP Interpretation Triglycerides TSH Thyroxine (T4) Free T3 Index Arterial Blood Glucose Arterial Blood Ionized Calcium Immunofix Electrophor Coronavirus (PCR) Miscellaneous Test 01/23/21 01/23/21 01/23/21 05:29 09:00 16:55 WBC RBC Hgb Hct MCHC RDW Plt Count Lymph % (Auto) Lymph # (Auto) [place] # (Auto) Seg Neutrophils % Seg Neuts % (Manual) Lymphocytes % (Manual) Nucleated RBC % Seg Neutrophils # Seg Neutrophils # Man Lymphocytes # (Manual) Monocytes # (Manual) Eosinophils # (Manual) PT INR D-Dimer Heparin Anti-Xa Level ABG pH POC ABG pCO2 POC ABG pO2 ABG pO2 ABG O2 Saturation ABG Base Excess ABG Hemoglobin ABG Oxyhemoglobin ABG Sodium ABG Potassium ABG Chloride ABG Glucose Oxyhemoglobin Carboxyhemoglobin Sodium Potassium 3.5 L Chloride Carbon Dioxide BUN 29 H 27 H Creatinine Glucose 132 H 103 H POC Glucose Hemoglobin A1c Lactic Acid Calcium Phosphorus Magnesium Ferritin Total Bilirubin Direct Bilirubin AST ALT Alkaline Phosphatase Ammonia Lactate Dehydrogenase Total Creatine Kinase C-Reactive Protein Total Protein Albumin 2.9 L 2.9 L Xrapj-2-Zixtsivin Bhuwc-0-Enbcasfai Beta Globulins Abnorm Protein Band 1 PEP Interpretation Triglycerides TSH Thyroxine (T4) Free T3 Index Arterial Blood Glucose Arterial Blood Ionized Calcium Immunofix Electrophor Coronavirus (PCR) Positive A Miscellaneous Test 01/24/21 01/24/21 01/24/21 05:50 20:20 20:20 WBC RBC Hgb Hct MCHC RDW Plt Count Lymph % (Auto) Lymph # (Auto) [place] # (Auto) Seg Neutrophils % Seg Neuts % (Manual) Lymphocytes % (Manual) Nucleated RBC % Seg Neutrophils # Seg Neutrophils # Man Lymphocytes # (Manual) Monocytes # (Manual) Eosinophils # (Manual) PT INR D-Dimer Heparin Anti-Xa Level ABG pH POC ABG pCO2 POC ABG pO2 ABG pO2 ABG O2 Saturation ABG Base Excess ABG Hemoglobin ABG Oxyhemoglobin ABG Sodium ABG Potassium ABG Chloride ABG Glucose Oxyhemoglobin Carboxyhemoglobin Sodium 148 H Potassium 5.3 H D Chloride 109.3 H Carbon Dioxide BUN 26 H Creatinine 0.7 L Glucose 130 H POC Glucose Hemoglobin A1c Lactic Acid Calcium Phosphorus Magnesium Ferritin 1031.0 H Total Bilirubin Direct Bilirubin AST 45 H ALT Alkaline Phosphatase Ammonia Lactate Dehydrogenase 1511 H Total Creatine Kinase C-Reactive Protein 12.00 H Total Protein Albumin 2.9 L Ghdfh-6-Fkdqswbkh Lgzwg-1-Jujosmley Beta Globulins Abnorm Protein Band 1 PEP Interpretation Triglycerides TSH Thyroxine (T4) Free T3 Index Arterial Blood Glucose Arterial Blood Ionized Calcium Immunofix Electrophor Coronavirus (PCR) Miscellaneous Test 01/24/21 01/25/21 01/25/21 20:20 06:22 06:22 WBC RBC Hgb Hct MCHC RDW Plt Count Lymph % (Auto) Lymph # (Auto) [place] # (Auto) Seg Neutrophils % Seg Neuts % (Manual) Lymphocytes % (Manual) Nucleated RBC % Seg Neutrophils # Seg Neutrophils # Man Lymphocytes # (Manual) Monocytes # (Manual) Eosinophils # (Manual) PT INR D-Dimer > 68918 H > 58181 H Heparin Anti-Xa Level ABG pH POC ABG pCO2 POC ABG pO2 ABG pO2 ABG O2 Saturation ABG Base Excess ABG Hemoglobin ABG Oxyhemoglobin ABG Sodium ABG Potassium ABG Chloride ABG Glucose Oxyhemoglobin Carboxyhemoglobin Sodium 153 H Potassium 3.4 L D Chloride 116.1 H Carbon Dioxide 21 L BUN 27 H Creatinine Glucose 133 H POC Glucose Hemoglobin A1c Lactic Acid Calcium Phosphorus Magnesium Ferritin Total Bilirubin 1.30 H Direct Bilirubin AST 50 H ALT Alkaline Phosphatase 159 H Ammonia Lactate Dehydrogenase Total Creatine Kinase C-Reactive Protein Total Protein Albumin 2.9 L Rtxhf-6-Mylndcrbq Gtiky-3-Lxcfxznlp Beta Globulins Abnorm Protein Band 1 PEP Interpretation Triglycerides TSH Thyroxine (T4) Free T3 Index Arterial Blood Glucose Arterial Blood Ionized Calcium Immunofix Electrophor Coronavirus (PCR) Miscellaneous Test 01/25/21 01/25/21 01/25/21 06:22 09:35 11:25 WBC RBC Hgb Hct MCHC RDW Plt Count Lymph % (Auto) Lymph # (Auto) [place] # (Auto) Seg Neutrophils % Seg Neuts % (Manual) Lymphocytes % (Manual) Nucleated RBC % Seg Neutrophils # Seg Neutrophils # Man Lymphocytes # (Manual) Monocytes # (Manual) Eosinophils # (Manual) PT INR D-Dimer Heparin Anti-Xa Level ABG pH 7.453 H 7.228 L POC ABG pCO2 60.0 H POC ABG pO2 44.9 L 111.7 H ABG pO2 ABG O2 Saturation ABG Base Excess ABG Hemoglobin ABG Oxyhemoglobin 81.4 L ABG Sodium 153.1 H 150.9 H ABG Potassium 3.3 L ABG Chloride 116.0 H 117.0 H ABG Glucose 151 H 155 H Oxyhemoglobin Carboxyhemoglobin Sodium Potassium Chloride Carbon Dioxide BUN Creatinine Glucose POC Glucose Hemoglobin A1c Lactic Acid Calcium Phosphorus Magnesium Ferritin Total Bilirubin Direct Bilirubin AST ALT Alkaline Phosphatase Ammonia Lactate Dehydrogenase Total Creatine Kinase C-Reactive Protein 16.80 H Total Protein Albumin Ygyia-7-Hlsqlonzu Ufykw-5-Oxnvruqus Beta Globulins Abnorm Protein Band 1 PEP Interpretation Triglycerides TSH Thyroxine (T4) Free T3 Index Arterial Blood Glucose 151 H 155 H Arterial Blood Ionized Calcium Immunofix Electrophor Coronavirus (PCR) Miscellaneous Test 01/25/21 01/26/21 01/26/21 21:00 07:32 07:39 WBC RBC Hgb Hct MCHC RDW Plt Count Lymph % (Auto) Lymph # (Auto) [place] # (Auto) Seg Neutrophils % Seg Neuts % (Manual) Lymphocytes % (Manual) Nucleated RBC % Seg Neutrophils # Seg Neutrophils # Man Lymphocytes # (Manual) Monocytes # (Manual) Eosinophils # (Manual) PT INR D-Dimer Heparin Anti-Xa Level ABG pH POC ABG pCO2 POC ABG pO2 68.5 L ABG pO2 ABG O2 Saturation ABG Base Excess ABG Hemoglobin ABG Oxyhemoglobin 91.3 L ABG Sodium 151.9 H ABG Potassium ABG Chloride 117.0 H ABG Glucose 140 H Oxyhemoglobin Carboxyhemoglobin Sodium 151 H Potassium Chloride 116.7 H Carbon Dioxide 20 L BUN 59 H Creatinine 3.4 H D Glucose 121 H POC Glucose Hemoglobin A1c Lactic Acid Calcium Phosphorus Magnesium Ferritin 1921.0 H Total Bilirubin Direct Bilirubin AST 45 H ALT Alkaline Phosphatase 137 H Ammonia Lactate Dehydrogenase 1559 H Total Creatine Kinase C-Reactive Protein 20.90 H Total Protein Albumin 2.3 L Lmfwb-3-Rreagiyep Ogwgp-5-Kcdyhynxm Beta Globulins Abnorm Protein Band 1 PEP Interpretation Triglycerides TSH Thyroxine (T4) Free T3 Index Arterial Blood Glucose 140 H Arterial Blood Ionized Calcium Immunofix Electrophor Coronavirus (PCR) Miscellaneous Test 01/26/21 01/26/21 01/26/21 08:30 17:55 20:39 WBC RBC Hgb Hct MCHC RDW Plt Count Lymph % (Auto) Lymph # (Auto) [place] # (Auto) Seg Neutrophils % Seg Neuts % (Manual) Lymphocytes % (Manual) Nucleated RBC % Seg Neutrophils # Seg Neutrophils # Man Lymphocytes # (Manual) Monocytes # (Manual) Eosinophils # (Manual) PT INR D-Dimer Heparin Anti-Xa Level ABG pH 7.287 L POC ABG pCO2 POC ABG pO2 ABG pO2 124.5 H ABG O2 Saturation ABG Base Excess -5.0 L ABG Hemoglobin ABG Oxyhemoglobin ABG Sodium ABG Potassium ABG Chloride ABG Glucose Oxyhemoglobin Carboxyhemoglobin Sodium 152 H Potassium 6.0 H D Chloride 117.2 H Carbon Dioxide 15 L BUN 80 H Creatinine 5.6 H D Glucose 156 H POC Glucose 141 H Hemoglobin A1c Lactic Acid Calcium 7.4 L Phosphorus Magnesium Ferritin Total Bilirubin Direct Bilirubin AST ALT Alkaline Phosphatase Ammonia Lactate Dehydrogenase Total Creatine Kinase C-Reactive Protein Total Protein Albumin Jqjuz-4-Inywkkizf Dqgrd-7-Idvbuames Beta Globulins Abnorm Protein Band 1 PEP Interpretation Triglycerides TSH Thyroxine (T4) Free T3 Index Arterial Blood Glucose Arterial Blood Ionized Calcium Immunofix Electrophor Coronavirus (PCR) Miscellaneous Test 01/26/21 01/27/21 01/27/21 23:14 02:55 05:00 WBC RBC Hgb Hct MCHC RDW Plt Count Lymph % (Auto) Lymph # (Auto) [place] # (Auto) Seg Neutrophils % Seg Neuts % (Manual) Lymphocytes % (Manual) Nucleated RBC % Seg Neutrophils # Seg Neutrophils # Man Lymphocytes # (Manual) Monocytes # (Manual) Eosinophils # (Manual) PT INR D-Dimer Heparin Anti-Xa Level ABG pH 7.215 L POC ABG pCO2 48.9 H POC ABG pO2 143.3 H ABG pO2 ABG O2 Saturation ABG Base Excess ABG Hemoglobin ABG Oxyhemoglobin ABG Sodium 150.0 H ABG Potassium 5.0 H ABG Chloride 118.0 H ABG Glucose 180 H Oxyhemoglobin Carboxyhemoglobin Sodium 154 H Potassium 5.3 H Chloride 117.2 H Carbon Dioxide 19 L BUN 92 H Creatinine 6.4 H Glucose 175 H POC Glucose 148 H Hemoglobin A1c Lactic Acid Calcium 7.9 L Phosphorus Magnesium Ferritin Total Bilirubin Direct Bilirubin AST ALT Alkaline Phosphatase Ammonia Lactate Dehydrogenase Total Creatine Kinase C-Reactive Protein Total Protein Albumin Bqqrw-4-Grvbrumsp Tjaul-6-Hzpsrzeyj Beta Globulins Abnorm Protein Band 1 PEP Interpretation Triglycerides TSH Thyroxine (T4) Free T3 Index Arterial Blood Glucose 180 H Arterial Blood Ionized Calcium 4.5 L Immunofix Electrophor Coronavirus (PCR) Miscellaneous Test 01/27/21 01/27/21 01/27/21 05:00 05:14 11:42 WBC RBC Hgb Hct MCHC RDW Plt Count Lymph % (Auto) Lymph # (Auto) [place] # (Auto) Seg Neutrophils % Seg Neuts % (Manual) Lymphocytes % (Manual) Nucleated RBC % Seg Neutrophils # Seg Neutrophils # Man Lymphocytes # (Manual) Monocytes # (Manual) Eosinophils # (Manual) PT INR D-Dimer Heparin Anti-Xa Level ABG pH POC ABG pCO2 POC ABG pO2 ABG pO2 ABG O2 Saturation ABG Base Excess ABG Hemoglobin ABG Oxyhemoglobin ABG Sodium ABG Potassium ABG Chloride ABG Glucose Oxyhemoglobin Carboxyhemoglobin Sodium Potassium Chloride Carbon Dioxide BUN Creatinine Glucose POC Glucose 159 H 171 H Hemoglobin A1c Lactic Acid Calcium Phosphorus Magnesium Ferritin Total Bilirubin Direct Bilirubin AST ALT Alkaline Phosphatase Ammonia Lactate Dehydrogenase Total Creatine Kinase 258 H C-Reactive Protein Total Protein Albumin Mxgrm-2-Mxsritnzo Rgiih-4-Gnfnwwesy Beta Globulins Abnorm Protein Band 1 PEP Interpretation Triglycerides TSH Thyroxine (T4) Free T3 Index Arterial Blood Glucose Arterial Blood Ionized Calcium Immunofix Electrophor Coronavirus (PCR) Miscellaneous Test 01/27/21 01/27/21 01/27/21 11:55 11:55 18:00 WBC RBC Hgb Hct MCHC RDW Plt Count Lymph % (Auto) Lymph # (Auto) [place] # (Auto) Seg Neutrophils % Seg Neuts % (Manual) Lymphocytes % (Manual) Nucleated RBC % Seg Neutrophils # Seg Neutrophils # Man Lymphocytes # (Manual) Monocytes # (Manual) Eosinophils # (Manual) PT INR D-Dimer Heparin Anti-Xa Level ABG pH POC ABG pCO2 POC ABG pO2 ABG pO2 ABG O2 Saturation ABG Base Excess ABG Hemoglobin ABG Oxyhemoglobin ABG Sodium ABG Potassium ABG Chloride ABG Glucose Oxyhemoglobin Carboxyhemoglobin Sodium Potassium Chloride Carbon Dioxide BUN Creatinine Glucose POC Glucose 185 H Hemoglobin A1c Lactic Acid Calcium Phosphorus Magnesium Ferritin Total Bilirubin Direct Bilirubin AST ALT Alkaline Phosphatase Ammonia Lactate Dehydrogenase Total Creatine Kinase C-Reactive Protein Total Protein Albumin 2.5 L Bphlo-8-Fdidjrahw 0.7 H Xglij-6-Pjilfoimq 1.2 H Beta Globulins 0.7 H Abnorm Protein Band 1 0.5 H PEP Interpretation see below H Triglycerides TSH Thyroxine (T4) Free T3 Index Arterial Blood Glucose Arterial Blood Ionized Calcium Immunofix Electrophor see below H Coronavirus (PCR) Miscellaneous Test 01/28/21 01/28/21 01/28/21 04:00 04:00 10:03 WBC RBC Hgb Hct MCHC RDW Plt Count 104 L Lymph % (Auto) Lymph # (Auto) [place] # (Auto) Seg Neutrophils % Seg Neuts % (Manual) Lymphocytes % (Manual) Nucleated RBC % Seg Neutrophils # Seg Neutrophils # Man Lymphocytes # (Manual) Monocytes # (Manual) Eosinophils # (Manual) PT INR D-Dimer Heparin Anti-Xa Level ABG pH 7.272 L POC ABG pCO2 48.4 H POC ABG pO2 ABG pO2 ABG O2 Saturation ABG Base Excess ABG Hemoglobin ABG Oxyhemoglobin ABG Sodium ABG Potassium ABG Chloride ABG Glucose 174 H Oxyhemoglobin Carboxyhemoglobin Sodium Potassium Chloride Carbon Dioxide BUN Creatinine Glucose POC Glucose Hemoglobin A1c Lactic Acid Calcium Phosphorus Magnesium Ferritin Total Bilirubin Direct Bilirubin AST ALT Alkaline Phosphatase Ammonia Lactate Dehydrogenase Total Creatine Kinase C-Reactive Protein Total Protein Albumin Rpzjz-9-Qxalacxkc Syxjn-9-Kgpgjkmid Beta Globulins Abnorm Protein Band 1 PEP Interpretation Triglycerides 369 H TSH Thyroxine (T4) Free T3 Index Arterial Blood Glucose 174 H Arterial Blood Ionized Calcium 4.3 L Immunofix Electrophor Coronavirus (PCR) Miscellaneous Test 01/28/21 01/28/21 01/28/21 10:03 10:03 10:03 WBC RBC Hgb Hct MCHC RDW Plt Count Lymph % (Auto) Lymph # (Auto) [place] # (Auto) Seg Neutrophils % Seg Neuts % (Manual) Lymphocytes % (Manual) Nucleated RBC % Seg Neutrophils # Seg Neutrophils # Man Lymphocytes # (Manual) Monocytes # (Manual) Eosinophils # (Manual) PT 17.3 H INR 1.36 H D-Dimer Heparin Anti-Xa Level ABG pH POC ABG pCO2 POC ABG pO2 ABG pO2 ABG O2 Saturation ABG Base Excess ABG Hemoglobin ABG Oxyhemoglobin ABG Sodium ABG Potassium ABG Chloride ABG Glucose Oxyhemoglobin Carboxyhemoglobin Sodium Potassium 5.2 H Chloride Carbon Dioxide BUN 69 H Creatinine 5.6 H Glucose 220 H POC Glucose Hemoglobin A1c Lactic Acid Calcium 7.7 L Phosphorus Magnesium Ferritin Total Bilirubin Direct Bilirubin AST ALT Alkaline Phosphatase Ammonia Lactate Dehydrogenase Total Creatine Kinase C-Reactive Protein Total Protein Albumin Qtcdv-8-Msfkwzglj Spsan-9-Csvzogrhx Beta Globulins Abnorm Protein Band 1 PEP Interpretation Triglycerides TSH 0.013 L Thyroxine (T4) Free T3 Index Arterial Blood Glucose Arterial Blood Ionized Calcium Immunofix Electrophor Coronavirus (PCR) Miscellaneous Test 01/28/21 01/28/21 01/28/21 11:34 13:40 15:31 WBC RBC Hgb Hct MCHC RDW Plt Count Lymph % (Auto) Lymph # (Auto) [place] # (Auto) Seg Neutrophils % Seg Neuts % (Manual) Lymphocytes % (Manual) Nucleated RBC % Seg Neutrophils # Seg Neutrophils # Man Lymphocytes # (Manual) Monocytes # (Manual) Eosinophils # (Manual) PT INR D-Dimer Heparin Anti-Xa Level 1.21 H ABG pH POC ABG pCO2 POC ABG pO2 ABG pO2 ABG O2 Saturation ABG Base Excess ABG Hemoglobin ABG Oxyhemoglobin ABG Sodium ABG Potassium ABG Chloride ABG Glucose Oxyhemoglobin Carboxyhemoglobin Sodium Potassium Chloride Carbon Dioxide BUN Creatinine Glucose POC Glucose 221 H Hemoglobin A1c Lactic Acid Calcium Phosphorus Magnesium 2.50 H Ferritin Total Bilirubin Direct Bilirubin AST ALT Alkaline Phosphatase Ammonia Lactate Dehydrogenase Total Creatine Kinase C-Reactive Protein Total Protein Albumin Uqrat-6-Foifcszzu Gzwjq-1-Tcctvzvwj Beta Globulins Abnorm Protein Band 1 PEP Interpretation Triglycerides TSH Thyroxine (T4) Free T3 Index Arterial Blood Glucose Arterial Blood Ionized Calcium Immunofix Electrophor Coronavirus (PCR) Miscellaneous Test 01/28/21 01/29/21 01/29/21 18:02 04:00 04:30 WBC RBC Hgb Hct MCHC RDW Plt Count Lymph % (Auto) Lymph # (Auto) [place] # (Auto) Seg Neutrophils % Seg Neuts % (Manual) Lymphocytes % (Manual) Nucleated RBC % Seg Neutrophils # Seg Neutrophils # Man Lymphocytes # (Manual) Monocytes # (Manual) Eosinophils # (Manual) PT INR D-Dimer Heparin Anti-Xa Level 0.81 H ABG pH 7.229 L POC ABG pCO2 48.8 H POC ABG pO2 ABG pO2 ABG O2 Saturation ABG Base Excess ABG Hemoglobin ABG Oxyhemoglobin ABG Sodium 135.3 L ABG Potassium 5.2 H ABG Chloride ABG Glucose 264 H Oxyhemoglobin Carboxyhemoglobin Sodium Potassium Chloride Carbon Dioxide BUN Creatinine Glucose POC Glucose 215 H Hemoglobin A1c Lactic Acid Calcium Phosphorus Magnesium Ferritin Total Bilirubin Direct Bilirubin AST ALT Alkaline Phosphatase Ammonia Lactate Dehydrogenase Total Creatine Kinase C-Reactive Protein Total Protein Albumin Bxvir-6-Ntxpfobor Ozsno-2-Opwjrbrnv Beta Globulins Abnorm Protein Band 1 PEP Interpretation Triglycerides TSH Thyroxine (T4) Free T3 Index Arterial Blood Glucose 264 H Arterial Blood Ionized Calcium 4.0 L Immunofix Electrophor Coronavirus (PCR) Miscellaneous Test 01/29/21 01/29/21 01/29/21 13:23 17:56 23:12 WBC RBC Hgb Hct MCHC RDW Plt Count Lymph % (Auto) Lymph # (Auto) [place] # (Auto) Seg Neutrophils % Seg Neuts % (Manual) Lymphocytes % (Manual) Nucleated RBC % Seg Neutrophils # Seg Neutrophils # Man Lymphocytes # (Manual) Monocytes # (Manual) Eosinophils # (Manual) PT INR D-Dimer Heparin Anti-Xa Level ABG pH POC ABG pCO2 POC ABG pO2 ABG pO2 ABG O2 Saturation ABG Base Excess ABG Hemoglobin ABG Oxyhemoglobin ABG Sodium ABG Potassium ABG Chloride ABG Glucose Oxyhemoglobin Carboxyhemoglobin Sodium Potassium Chloride Carbon Dioxide BUN Creatinine Glucose POC Glucose 198 H 200 H 172 H Hemoglobin A1c Lactic Acid Calcium Phosphorus Magnesium Ferritin Total Bilirubin Direct Bilirubin AST ALT Alkaline Phosphatase Ammonia Lactate Dehydrogenase Total Creatine Kinase C-Reactive Protein Total Protein Albumin Ebimc-0-Pjuzswzvo Bqitx-3-Rkpdllgpx Beta Globulins Abnorm Protein Band 1 PEP Interpretation Triglycerides TSH Thyroxine (T4) Free T3 Index Arterial Blood Glucose Arterial Blood Ionized Calcium Immunofix Electrophor Coronavirus (PCR) Miscellaneous Test 01/29/21 01/29/21 01/30/21 Unknown Unknown 04:00 WBC RBC Hgb Hct MCHC RDW Plt Count Lymph % (Auto) Lymph # (Auto) [place] # (Auto) Seg Neutrophils % Seg Neuts % (Manual) Lymphocytes % (Manual) Nucleated RBC % Seg Neutrophils # Seg Neutrophils # Man Lymphocytes # (Manual) Monocytes # (Manual) Eosinophils # (Manual) PT INR D-Dimer Heparin Anti-Xa Level 0.85 H ABG pH 7.304 L POC ABG pCO2 POC ABG pO2 112.8 H ABG pO2 ABG O2 Saturation ABG Base Excess ABG Hemoglobin ABG Oxyhemoglobin ABG Sodium ABG Potassium 5.2 H ABG Chloride ABG Glucose 160 H Oxyhemoglobin Carboxyhemoglobin Sodium Potassium Chloride Carbon Dioxide BUN Creatinine Glucose POC Glucose Hemoglobin A1c Lactic Acid Calcium Phosphorus Magnesium Ferritin Total Bilirubin Direct Bilirubin AST ALT Alkaline Phosphatase Ammonia Lactate Dehydrogenase Total Creatine Kinase C-Reactive Protein Total Protein Albumin Gkcwl-7-Hmovcxkjf Qwuta-1-Ggfumjvul Beta Globulins Abnorm Protein Band 1 PEP Interpretation Triglycerides TSH Thyroxine (T4) Free T3 Index Arterial Blood Glucose 160 H Arterial Blood Ionized Calcium 4.1 L Immunofix Electrophor Coronavirus (PCR) Miscellaneous Test Flexitest 1 H 01/30/21 01/30/21 01/30/21 04:05 05:00 05:00 WBC 27.4 H RBC Hgb 11.6 L Hct 34.8 L MCHC RDW Plt Count 126 L Lymph % (Auto) Lymph # (Auto) [place] # (Auto) Seg Neutrophils % Seg Neuts % (Manual) Lymphocytes % (Manual) Nucleated RBC % Seg Neutrophils # Seg Neutrophils # Man Lymphocytes # (Manual) Monocytes # (Manual) Eosinophils # (Manual) PT INR D-Dimer Heparin Anti-Xa Level ABG pH 7.288 L POC ABG pCO2 49.7 H POC ABG pO2 169.7 H ABG pO2 ABG O2 Saturation ABG Base Excess ABG Hemoglobin ABG Oxyhemoglobin 98.4 H ABG Sodium 132.5 L ABG Potassium 4.8 H ABG Chloride ABG Glucose 196 H Oxyhemoglobin Carboxyhemoglobin Sodium 136 L Potassium Chloride 97.4 L Carbon Dioxide BUN 75 H Creatinine 5.4 H Glucose 184 H POC Glucose Hemoglobin A1c Lactic Acid Calcium 7.4 L Phosphorus 8.60 H Magnesium 2.40 H Ferritin Total Bilirubin Direct Bilirubin AST ALT Alkaline Phosphatase Ammonia Lactate Dehydrogenase Total Creatine Kinase C-Reactive Protein Total Protein Albumin Mpiqm-2-Blpcypgde Kdoiy-5-Rembjjfef Beta Globulins Abnorm Protein Band 1 PEP Interpretation Triglycerides TSH Thyroxine (T4) Free T3 Index Arterial Blood Glucose 196 H Arterial Blood Ionized Calcium 4.0 L Immunofix Electrophor Coronavirus (PCR) Miscellaneous Test 01/30/21 01/30/21 01/30/21 05:32 11:23 15:35 WBC RBC Hgb Hct MCHC RDW Plt Count Lymph % (Auto) Lymph # (Auto) [place] # (Auto) Seg Neutrophils % Seg Neuts % (Manual) Lymphocytes % (Manual) Nucleated RBC % Seg Neutrophils # Seg Neutrophils # Man Lymphocytes # (Manual) Monocytes # (Manual) Eosinophils # (Manual) PT INR D-Dimer Heparin Anti-Xa Level ABG pH POC ABG pCO2 POC ABG pO2 ABG pO2 ABG O2 Saturation ABG Base Excess ABG Hemoglobin ABG Oxyhemoglobin ABG Sodium ABG Potassium ABG Chloride ABG Glucose Oxyhemoglobin Carboxyhemoglobin Sodium Potassium Chloride Carbon Dioxide BUN Creatinine Glucose POC Glucose 169 H 177 H Hemoglobin A1c Lactic Acid Calcium Phosphorus Magnesium Ferritin Total Bilirubin Direct Bilirubin AST ALT Alkaline Phosphatase Ammonia Lactate Dehydrogenase Total Creatine Kinase C-Reactive Protein Total Protein Albumin Dihei-3-Eqmbqbytt Dhuxq-8-Hyjtzuezn Beta Globulins Abnorm Protein Band 1 PEP Interpretation Triglycerides TSH Thyroxine (T4) 3.3 L Free T3 Index Arterial Blood Glucose Arterial Blood Ionized Calcium Immunofix Electrophor Coronavirus (PCR) Miscellaneous Test 01/30/21 01/30/21 01/30/21 15:35 18:13 23:49 WBC RBC Hgb Hct MCHC RDW Plt Count Lymph % (Auto) Lymph # (Auto) [place] # (Auto) Seg Neutrophils % Seg Neuts % (Manual) Lymphocytes % (Manual) Nucleated RBC % Seg Neutrophils # Seg Neutrophils # Man Lymphocytes # (Manual) Monocytes # (Manual) Eosinophils # (Manual) PT INR D-Dimer Heparin Anti-Xa Level ABG pH POC ABG pCO2 POC ABG pO2 ABG pO2 ABG O2 Saturation ABG Base Excess ABG Hemoglobin ABG Oxyhemoglobin ABG Sodium ABG Potassium ABG Chloride ABG Glucose Oxyhemoglobin Carboxyhemoglobin Sodium Potassium Chloride Carbon Dioxide BUN Creatinine Glucose POC Glucose 123 H 143 H Hemoglobin A1c Lactic Acid Calcium Phosphorus Magnesium Ferritin Total Bilirubin Direct Bilirubin AST ALT Alkaline Phosphatase Ammonia Lactate Dehydrogenase Total Creatine Kinase C-Reactive Protein Total Protein Albumin Odqsh-3-Xagjhpyum Pdbon-5-Eldxsnwlu Beta Globulins Abnorm Protein Band 1 PEP Interpretation Triglycerides TSH Thyroxine (T4) Free T3 Index 1.1 L Arterial Blood Glucose Arterial Blood Ionized Calcium Immunofix Electrophor Coronavirus (PCR) Miscellaneous Test 01/31/21 01/31/21 01/31/21 03:30 03:30 03:30 WBC 31.3 H RBC Hgb 11.4 L Hct 34.6 L MCHC RDW Plt Count Lymph % (Auto) Lymph # (Auto) [place] # (Auto) Seg Neutrophils % Seg Neuts % (Manual) Lymphocytes % (Manual) Nucleated RBC % Seg Neutrophils # Seg Neutrophils # Man Lymphocytes # (Manual) Monocytes # (Manual) Eosinophils # (Manual) PT INR D-Dimer Heparin Anti-Xa Level ABG pH POC ABG pCO2 POC ABG pO2 ABG pO2 ABG O2 Saturation ABG Base Excess ABG Hemoglobin ABG Oxyhemoglobin ABG Sodium ABG Potassium ABG Chloride ABG Glucose Oxyhemoglobin Carboxyhemoglobin Sodium Potassium 5.3 H Chloride Carbon Dioxide BUN 111 H Creatinine 6.8 H Glucose 143 H POC Glucose Hemoglobin A1c Lactic Acid Calcium 7.3 L Phosphorus Magnesium Ferritin Total Bilirubin 1.70 H 1.60 H Direct Bilirubin 1.6 H AST 57 H 57 H ALT Alkaline Phosphatase Ammonia Lactate Dehydrogenase Total Creatine Kinase C-Reactive Protein Total Protein 5.5 L D 5.5 L Albumin 2.5 L 2.5 L Tgszr-6-Coiaaucxc Pqata-4-Jpxsthxyj Beta Globulins Abnorm Protein Band 1 PEP Interpretation Triglycerides TSH Thyroxine (T4) Free T3 Index Arterial Blood Glucose Arterial Blood Ionized Calcium Immunofix Electrophor Coronavirus (PCR) Miscellaneous Test 01/31/21 01/31/21 01/31/21 04:54 12:00 17:19 WBC RBC Hgb Hct MCHC RDW Plt Count Lymph % (Auto) Lymph # (Auto) [place] # (Auto) Seg Neutrophils % Seg Neuts % (Manual) Lymphocytes % (Manual) Nucleated RBC % Seg Neutrophils # Seg Neutrophils # Man Lymphocytes # (Manual) Monocytes # (Manual) Eosinophils # (Manual) PT INR D-Dimer Heparin Anti-Xa Level ABG pH POC ABG pCO2 POC ABG pO2 ABG pO2 ABG O2 Saturation ABG Base Excess ABG Hemoglobin ABG Oxyhemoglobin ABG Sodium ABG Potassium ABG Chloride ABG Glucose Oxyhemoglobin Carboxyhemoglobin Sodium Potassium Chloride Carbon Dioxide BUN Creatinine Glucose POC Glucose 133 H 152 H 142 H Hemoglobin A1c Lactic Acid Calcium Phosphorus Magnesium Ferritin Total Bilirubin Direct Bilirubin AST ALT Alkaline Phosphatase Ammonia Lactate Dehydrogenase Total Creatine Kinase C-Reactive Protein Total Protein Albumin Aezei-8-Quolcgunz Efwih-7-Awulrgonu Beta Globulins Abnorm Protein Band 1 PEP Interpretation Triglycerides TSH Thyroxine (T4) Free T3 Index Arterial Blood Glucose Arterial Blood Ionized Calcium Immunofix Electrophor Coronavirus (PCR) Miscellaneous Test 01/31/21 02/01/21 02/01/21 23:46 00:25 03:10 WBC RBC Hgb Hct MCHC RDW Plt Count Lymph % (Auto) Lymph # (Auto) [place] # (Auto) Seg Neutrophils % Seg Neuts % (Manual) Lymphocytes % (Manual) Nucleated RBC % Seg Neutrophils # Seg Neutrophils # Man Lymphocytes # (Manual) Monocytes # (Manual) Eosinophils # (Manual) PT INR D-Dimer Heparin Anti-Xa Level 0.19 L ABG pH 7.294 L POC ABG pCO2 50.8 H POC ABG pO2 77.2 L ABG pO2 ABG O2 Saturation ABG Base Excess ABG Hemoglobin ABG Oxyhemoglobin 92.9 L ABG Sodium 131.4 L ABG Potassium 5.2 H ABG Chloride 97.0 L ABG Glucose 158 H Oxyhemoglobin Carboxyhemoglobin Sodium Potassium Chloride Carbon Dioxide BUN Creatinine Glucose POC Glucose 140 H Hemoglobin A1c Lactic Acid Calcium Phosphorus Magnesium Ferritin Total Bilirubin Direct Bilirubin AST ALT Alkaline Phosphatase Ammonia Lactate Dehydrogenase Total Creatine Kinase C-Reactive Protein Total Protein Albumin Smbaj-5-Cpcbgzdsp Ipymk-1-Jpplxchxg Beta Globulins Abnorm Protein Band 1 PEP Interpretation Triglycerides TSH Thyroxine (T4) Free T3 Index Arterial Blood Glucose 158 H Arterial Blood Ionized Calcium 3.9 L Immunofix Electrophor Coronavirus (PCR) Miscellaneous Test 02/01/21 02/01/21 02/01/21 04:00 04:00 05:36 WBC RBC Hgb 11.6 L Hct 34.6 L MCHC RDW Plt Count Lymph % (Auto) Lymph # (Auto) [place] # (Auto) Seg Neutrophils % Seg Neuts % (Manual) Lymphocytes % (Manual) Nucleated RBC % Seg Neutrophils # Seg Neutrophils # Man Lymphocytes # (Manual) Monocytes # (Manual) Eosinophils # (Manual) PT INR D-Dimer Heparin Anti-Xa Level ABG pH POC ABG pCO2 POC ABG pO2 ABG pO2 ABG O2 Saturation ABG Base Excess ABG Hemoglobin ABG Oxyhemoglobin ABG Sodium ABG Potassium ABG Chloride ABG Glucose Oxyhemoglobin Carboxyhemoglobin Sodium 136 L Potassium 5.2 H Chloride 93.6 L Carbon Dioxide BUN 78 H Creatinine 5.7 H Glucose 152 H POC Glucose 167 H Hemoglobin A1c Lactic Acid Calcium 7.1 L Phosphorus Magnesium Ferritin Total Bilirubin 3.00 H Direct Bilirubin AST 117 H ALT 108 H Alkaline Phosphatase Ammonia Lactate Dehydrogenase Total Creatine Kinase C-Reactive Protein Total Protein 5.6 L Albumin 2.7 L Zcvar-4-Huqnczkjz Fkwjh-4-Ayduwcxqn Beta Globulins Abnorm Protein Band 1 PEP Interpretation Triglycerides TSH Thyroxine (T4) Free T3 Index Arterial Blood Glucose Arterial Blood Ionized Calcium Immunofix Electrophor Coronavirus (PCR) Miscellaneous Test 02/01/21 02/01/21 02/01/21 09:15 11:42 17:28 WBC RBC Hgb Hct MCHC RDW Plt Count Lymph % (Auto) Lymph # (Auto) [place] # (Auto) Seg Neutrophils % Seg Neuts % (Manual) Lymphocytes % (Manual) Nucleated RBC % Seg Neutrophils # Seg Neutrophils # Man Lymphocytes # (Manual) Monocytes # (Manual) Eosinophils # (Manual) PT 15.1 H INR D-Dimer Heparin Anti-Xa Level ABG pH POC ABG pCO2 POC ABG pO2 ABG pO2 ABG O2 Saturation ABG Base Excess ABG Hemoglobin ABG Oxyhemoglobin ABG Sodium ABG Potassium ABG Chloride ABG Glucose Oxyhemoglobin Carboxyhemoglobin Sodium Potassium Chloride Carbon Dioxide BUN Creatinine Glucose POC Glucose 159 H 171 H Hemoglobin A1c Lactic Acid Calcium Phosphorus Magnesium Ferritin Total Bilirubin Direct Bilirubin AST ALT Alkaline Phosphatase Ammonia Lactate Dehydrogenase Total Creatine Kinase C-Reactive Protein Total Protein Albumin Harkg-8-Ykwsltogf Tzgoh-9-Olibbxfzr Beta Globulins Abnorm Protein Band 1 PEP Interpretation Triglycerides TSH Thyroxine (T4) Free T3 Index Arterial Blood Glucose Arterial Blood Ionized Calcium Immunofix Electrophor Coronavirus (PCR) Miscellaneous Test 02/01/21 02/02/21 02/02/21 23:06 02:58 05:06 WBC RBC Hgb Hct MCHC RDW Plt Count Lymph % (Auto) Lymph # (Auto) [place] # (Auto) Seg Neutrophils % Seg Neuts % (Manual) Lymphocytes % (Manual) Nucleated RBC % Seg Neutrophils # Seg Neutrophils # Man Lymphocytes # (Manual) Monocytes # (Manual) Eosinophils # (Manual) PT INR D-Dimer Heparin Anti-Xa Level ABG pH 7.208 L POC ABG pCO2 58.3 H POC ABG pO2 ABG pO2 ABG O2 Saturation ABG Base Excess ABG Hemoglobin 11.6 L ABG Oxyhemoglobin ABG Sodium 131.4 L ABG Potassium 5.6 H ABG Chloride 97.0 L ABG Glucose 155 H Oxyhemoglobin Carboxyhemoglobin Sodium Potassium Chloride Carbon Dioxide BUN Creatinine Glucose POC Glucose 155 H 134 H Hemoglobin A1c Lactic Acid Calcium Phosphorus Magnesium Ferritin Total Bilirubin Direct Bilirubin AST ALT Alkaline Phosphatase Ammonia Lactate Dehydrogenase Total Creatine Kinase C-Reactive Protein Total Protein Albumin Kbtis-8-Usognlwqe Mmtur-2-Mbcjfihxu Beta Globulins Abnorm Protein Band 1 PEP Interpretation Triglycerides TSH Thyroxine (T4) Free T3 Index Arterial Blood Glucose 155 H Arterial Blood Ionized Calcium 3.9 L Immunofix Electrophor Coronavirus (PCR) Miscellaneous Test 02/02/21 02/02/21 02/02/21 11:10 16:22 17:52 WBC RBC Hgb Hct MCHC RDW Plt Count Lymph % (Auto) Lymph # (Auto) [place] # (Auto) Seg Neutrophils % Seg Neuts % (Manual) Lymphocytes % (Manual) Nucleated RBC % Seg Neutrophils # Seg Neutrophils # Man Lymphocytes # (Manual) Monocytes # (Manual) Eosinophils # (Manual) PT INR D-Dimer Heparin Anti-Xa Level 0.10 L ABG pH POC ABG pCO2 POC ABG pO2 ABG pO2 ABG O2 Saturation ABG Base Excess ABG Hemoglobin ABG Oxyhemoglobin ABG Sodium ABG Potassium ABG Chloride ABG Glucose Oxyhemoglobin Carboxyhemoglobin Sodium Potassium Chloride Carbon Dioxide BUN Creatinine Glucose POC Glucose 179 H 170 H Hemoglobin A1c Lactic Acid Calcium Phosphorus Magnesium Ferritin Total Bilirubin Direct Bilirubin AST ALT Alkaline Phosphatase Ammonia Lactate Dehydrogenase Total Creatine Kinase C-Reactive Protein Total Protein Albumin Uruyp-6-Lzqsczmso Iiknz-6-Fcinpdwpz Beta Globulins Abnorm Protein Band 1 PEP Interpretation Triglycerides TSH Thyroxine (T4) Free T3 Index Arterial Blood Glucose Arterial Blood Ionized Calcium Immunofix Electrophor Coronavirus (PCR) Miscellaneous Test 02/02/21 02/02/21 02/02/21 23:22 23:23 Unknown WBC RBC Hgb Hct MCHC RDW Plt Count Lymph % (Auto) Lymph # (Auto) [place] # (Auto) Seg Neutrophils % Seg Neuts % (Manual) Lymphocytes % (Manual) Nucleated RBC % Seg Neutrophils # Seg Neutrophils # Man Lymphocytes # (Manual) Monocytes # (Manual) Eosinophils # (Manual) PT INR D-Dimer Heparin Anti-Xa Level 0.20 L ABG pH POC ABG pCO2 POC ABG pO2 ABG pO2 ABG O2 Saturation ABG Base Excess ABG Hemoglobin ABG Oxyhemoglobin ABG Sodium ABG Potassium ABG Chloride ABG Glucose Oxyhemoglobin Carboxyhemoglobin Sodium Potassium 5.9 H Chloride 95.0 L Carbon Dioxide BUN 118 H Creatinine 7.2 H Glucose 152 H POC Glucose 139 H Hemoglobin A1c Lactic Acid Calcium 7.1 L Phosphorus Magnesium Ferritin Total Bilirubin 2.90 H Direct Bilirubin AST 134 H ALT 169 H Alkaline Phosphatase Ammonia Lactate Dehydrogenase Total Creatine Kinase C-Reactive Protein Total Protein 5.0 L Albumin 2.5 L Gbwam-2-Fsdvdaygt Tmios-6-Spfasomxb Beta Globulins Abnorm Protein Band 1 PEP Interpretation Triglycerides TSH Thyroxine (T4) Free T3 Index Arterial Blood Glucose Arterial Blood Ionized Calcium Immunofix Electrophor Coronavirus (PCR) Miscellaneous Test 02/02/21 02/02/21 02/02/21 Unknown Unknown Unknown WBC 39.4 H RBC Hgb 10.7 L Hct 32.3 L MCHC RDW Plt Count Lymph % (Auto) Lymph # (Auto) [place] # (Auto) Seg Neutrophils % Seg Neuts % (Manual) Lymphocytes % (Manual) Nucleated RBC % Seg Neutrophils # Seg Neutrophils # Man Lymphocytes # (Manual) Monocytes # (Manual) Eosinophils # (Manual) PT 15.1 H INR D-Dimer Heparin Anti-Xa Level ABG pH POC ABG pCO2 POC ABG pO2 ABG pO2 ABG O2 Saturation ABG Base Excess ABG Hemoglobin ABG Oxyhemoglobin ABG Sodium ABG Potassium ABG Chloride ABG Glucose Oxyhemoglobin Carboxyhemoglobin Sodium Potassium Chloride Carbon Dioxide BUN Creatinine Glucose POC Glucose Hemoglobin A1c Lactic Acid Calcium Phosphorus Magnesium Ferritin Total Bilirubin Direct Bilirubin AST ALT Alkaline Phosphatase Ammonia 83.0 H Lactate Dehydrogenase Total Creatine Kinase C-Reactive Protein Total Protein Albumin Icusw-1-Ptjxvenlw Wnkdh-0-Rwgtchlkq Beta Globulins Abnorm Protein Band 1 PEP Interpretation Triglycerides TSH Thyroxine (T4) Free T3 Index Arterial Blood Glucose Arterial Blood Ionized Calcium Immunofix Electrophor Coronavirus (PCR) Miscellaneous Test 02/02/21 02/03/21 02/03/21 Unknown 04:47 05:25 WBC 60.2 H* 55.8 H* RBC Hgb 11.0 L 10.3 L Hct 33.7 L 32.4 L MCHC RDW Plt Count Lymph % (Auto) Lymph # (Auto) [place] # (Auto) Seg Neutrophils % Seg Neuts % (Manual) 94.0 H Lymphocytes % (Manual) 3.0 L Nucleated RBC % Seg Neutrophils # Seg Neutrophils # Man 56.6 H Lymphocytes # (Manual) Monocytes # (Manual) 1.2 H Eosinophils # (Manual) 0.6 H PT INR D-Dimer Heparin Anti-Xa Level ABG pH POC ABG pCO2 POC ABG pO2 ABG pO2 ABG O2 Saturation ABG Base Excess ABG Hemoglobin ABG Oxyhemoglobin ABG Sodium ABG Potassium ABG Chloride ABG Glucose Oxyhemoglobin Carboxyhemoglobin Sodium Potassium Chloride Carbon Dioxide BUN Creatinine Glucose POC Glucose 158 H Hemoglobin A1c Lactic Acid Calcium Phosphorus Magnesium Ferritin Total Bilirubin Direct Bilirubin AST ALT Alkaline Phosphatase Ammonia Lactate Dehydrogenase Total Creatine Kinase C-Reactive Protein Total Protein Albumin Emifi-5-Stnrtaoyg Mitph-8-Uhdzqmtzz Beta Globulins Abnorm Protein Band 1 PEP Interpretation Triglycerides TSH Thyroxine (T4) Free T3 Index Arterial Blood Glucose Arterial Blood Ionized Calcium Immunofix Electrophor Coronavirus (PCR) Miscellaneous Test 02/03/21 02/03/21 02/03/21 05:25 05:25 05:25 WBC RBC Hgb Hct MCHC RDW Plt Count Lymph % (Auto) Lymph # (Auto) [place] # (Auto) Seg Neutrophils % Seg Neuts % (Manual) Lymphocytes % (Manual) Nucleated RBC % Seg Neutrophils # Seg Neutrophils # Man Lymphocytes # (Manual) Monocytes # (Manual) Eosinophils # (Manual) PT INR D-Dimer 4328.24 H Heparin Anti-Xa Level ABG pH POC ABG pCO2 POC ABG pO2 ABG pO2 ABG O2 Saturation ABG Base Excess ABG Hemoglobin ABG Oxyhemoglobin ABG Sodium ABG Potassium ABG Chloride ABG Glucose Oxyhemoglobin Carboxyhemoglobin Sodium Potassium 5.4 H 5.6 H Chloride 97.3 L Carbon Dioxide 21 L BUN 86 H 86 H Creatinine 5.8 H 5.6 H Glucose 154 H 152 H POC Glucose Hemoglobin A1c Lactic Acid Calcium 7.8 L 7.9 L Phosphorus 8.50 H Magnesium 2.50 H Ferritin Total Bilirubin 2.30 H Direct Bilirubin AST 103 H ALT 200 H Alkaline Phosphatase 135 H Ammonia Lactate Dehydrogenase 1310 H Total Creatine Kinase C-Reactive Protein 2.50 H Total Protein 5.2 L Albumin 2.2 L Frvrb-9-Knbdpxprr Cvpub-8-Knaizzwzp Beta Globulins Abnorm Protein Band 1 PEP Interpretation Triglycerides TSH Thyroxine (T4) Free T3 Index Arterial Blood Glucose Arterial Blood Ionized Calcium Immunofix Electrophor Coronavirus (PCR) Miscellaneous Test 02/03/21 02/03/21 02/03/21 05:25 07:35 11:35 WBC RBC Hgb Hct MCHC RDW Plt Count Lymph % (Auto) Lymph # (Auto) [place] # (Auto) Seg Neutrophils % Seg Neuts % (Manual) Lymphocytes % (Manual) Nucleated RBC % Seg Neutrophils # Seg Neutrophils # Man Lymphocytes # (Manual) Monocytes # (Manual) Eosinophils # (Manual) PT INR D-Dimer Heparin Anti-Xa Level < 0.10 L ABG pH POC ABG pCO2 POC ABG pO2 ABG pO2 ABG O2 Saturation ABG Base Excess ABG Hemoglobin ABG Oxyhemoglobin ABG Sodium ABG Potassium ABG Chloride ABG Glucose Oxyhemoglobin Carboxyhemoglobin Sodium Potassium Chloride Carbon Dioxide BUN Creatinine Glucose POC Glucose 146 H Hemoglobin A1c Lactic Acid Calcium Phosphorus Magnesium Ferritin 2914.0 H Total Bilirubin Direct Bilirubin AST ALT Alkaline Phosphatase Ammonia Lactate Dehydrogenase Total Creatine Kinase C-Reactive Protein Total Protein Albumin Hpshq-1-Nfejerfwl Idlhb-4-Jbwuubihr Beta Globulins Abnorm Protein Band 1 PEP Interpretation Triglycerides TSH Thyroxine (T4) Free T3 Index Arterial Blood Glucose Arterial Blood Ionized Calcium Immunofix Electrophor Coronavirus (PCR) Miscellaneous Test 02/03/21 02/03/21 02/04/21 17:45 23:41 04:00 WBC RBC Hgb Hct MCHC RDW Plt Count Lymph % (Auto) Lymph # (Auto) [place] # (Auto) Seg Neutrophils % Seg Neuts % (Manual) Lymphocytes % (Manual) Nucleated RBC % Seg Neutrophils # Seg Neutrophils # Man Lymphocytes # (Manual) Monocytes # (Manual) Eosinophils # (Manual) PT INR D-Dimer Heparin Anti-Xa Level ABG pH POC ABG pCO2 POC ABG pO2 69.2 L ABG pO2 ABG O2 Saturation ABG Base Excess ABG Hemoglobin 9.4 L ABG Oxyhemoglobin 91.5 L ABG Sodium 127.7 L ABG Potassium 4.9 H ABG Chloride ABG Glucose 172 H Oxyhemoglobin Carboxyhemoglobin Sodium Potassium Chloride Carbon Dioxide BUN Creatinine Glucose POC Glucose 138 H 150 H Hemoglobin A1c Lactic Acid Calcium Phosphorus Magnesium Ferritin Total Bilirubin Direct Bilirubin AST ALT Alkaline Phosphatase Ammonia Lactate Dehydrogenase Total Creatine Kinase C-Reactive Protein Total Protein Albumin Yezpy-6-Ozmvcdfim Mhebo-4-Sfrxwmmlz Beta Globulins Abnorm Protein Band 1 PEP Interpretation Triglycerides TSH Thyroxine (T4) Free T3 Index Arterial Blood Glucose 172 H Arterial Blood Ionized Calcium 4.0 L Immunofix Electrophor Coronavirus (PCR) Miscellaneous Test 02/04/21 02/04/21 02/04/21 05:00 05:18 06:40 WBC 59.8 H* RBC 2.95 L Hgb 8.5 L Hct 26.2 L D MCHC RDW Plt Count Lymph % (Auto) Lymph # (Auto) [place] # (Auto) Seg Neutrophils % Seg Neuts % (Manual) Lymphocytes % (Manual) Nucleated RBC % Seg Neutrophils # Seg Neutrophils # Man Lymphocytes # (Manual) Monocytes # (Manual) Eosinophils # (Manual) PT INR D-Dimer Heparin Anti-Xa Level ABG pH POC ABG pCO2 POC ABG pO2 ABG pO2 ABG O2 Saturation ABG Base Excess ABG Hemoglobin ABG Oxyhemoglobin ABG Sodium ABG Potassium ABG Chloride ABG Glucose Oxyhemoglobin Carboxyhemoglobin Sodium 133 L Potassium Chloride 93.8 L Carbon Dioxide BUN 77 H Creatinine 5.3 H Glucose 168 H POC Glucose 163 H Hemoglobin A1c Lactic Acid Calcium 7.3 L Phosphorus Magnesium Ferritin Total Bilirubin 1.40 H Direct Bilirubin AST 110 H ALT 171 H Alkaline Phosphatase 196 H Ammonia Lactate Dehydrogenase Total Creatine Kinase C-Reactive Protein Total Protein 4.7 L Albumin 2.2 L Drsal-3-Joljvqvwt Fclqz-8-Olkvfqtyj Beta Globulins Abnorm Protein Band 1 PEP Interpretation Triglycerides TSH Thyroxine (T4) Free T3 Index Arterial Blood Glucose Arterial Blood Ionized Calcium Immunofix Electrophor Coronavirus (PCR) Miscellaneous Test 02/04/21 02/04/21 02/04/21 12:15 16:55 23:39 WBC RBC Hgb Hct MCHC RDW Plt Count Lymph % (Auto) Lymph # (Auto) [place] # (Auto) Seg Neutrophils % Seg Neuts % (Manual) Lymphocytes % (Manual) Nucleated RBC % Seg Neutrophils # Seg Neutrophils # Man Lymphocytes # (Manual) Monocytes # (Manual) Eosinophils # (Manual) PT INR D-Dimer Heparin Anti-Xa Level ABG pH POC ABG pCO2 POC ABG pO2 ABG pO2 ABG O2 Saturation ABG Base Excess ABG Hemoglobin ABG Oxyhemoglobin ABG Sodium ABG Potassium ABG Chloride ABG Glucose Oxyhemoglobin Carboxyhemoglobin Sodium Potassium Chloride Carbon Dioxide BUN Creatinine Glucose POC Glucose 135 H 138 H 129 H Hemoglobin A1c Lactic Acid Calcium Phosphorus Magnesium Ferritin Total Bilirubin Direct Bilirubin AST ALT Alkaline Phosphatase Ammonia Lactate Dehydrogenase Total Creatine Kinase C-Reactive Protein Total Protein Albumin Tstnk-3-Hywiydbnh Oobdz-3-Dktjofdgc Beta Globulins Abnorm Protein Band 1 PEP Interpretation Triglycerides TSH Thyroxine (T4) Free T3 Index Arterial Blood Glucose Arterial Blood Ionized Calcium Immunofix Electrophor Coronavirus (PCR) Miscellaneous Test 02/05/21 02/05/21 02/05/21 04:39 04:50 11:39 WBC RBC Hgb Hct MCHC RDW Plt Count Lymph % (Auto) Lymph # (Auto) [place] # (Auto) Seg Neutrophils % Seg Neuts % (Manual) Lymphocytes % (Manual) Nucleated RBC % Seg Neutrophils # Seg Neutrophils # Man Lymphocytes # (Manual) Monocytes # (Manual) Eosinophils # (Manual) PT INR D-Dimer Heparin Anti-Xa Level ABG pH 7.203 L POC ABG pCO2 POC ABG pO2 ABG pO2 64.8 L ABG O2 Saturation 86.6 L ABG Base Excess -4.2 L ABG Hemoglobin 8.6 L ABG Oxyhemoglobin ABG Sodium ABG Potassium ABG Chloride ABG Glucose Oxyhemoglobin 84.1 L Carboxyhemoglobin Sodium Potassium Chloride Carbon Dioxide BUN Creatinine Glucose POC Glucose 116 H 168 H Hemoglobin A1c Lactic Acid Calcium Phosphorus Magnesium Ferritin Total Bilirubin Direct Bilirubin AST ALT Alkaline Phosphatase Ammonia Lactate Dehydrogenase Total Creatine Kinase C-Reactive Protein Total Protein Albumin Jkfde-1-Tpmtnvcby Gssqk-5-Mqmlbrdjz Beta Globulins Abnorm Protein Band 1 PEP Interpretation Triglycerides TSH Thyroxine (T4) Free T3 Index Arterial Blood Glucose Arterial Blood Ionized Calcium Immunofix Electrophor Coronavirus (PCR) Miscellaneous Test 02/05/21 02/05/21 02/05/21 14:32 14:32 14:32 WBC RBC Hgb 8.1 L Hct 26.5 L MCHC RDW Plt Count 132 L Lymph % (Auto) Lymph # (Auto) [place] # (Auto) Seg Neutrophils % Seg Neuts % (Manual) Lymphocytes % (Manual) Nucleated RBC % Seg Neutrophils # Seg Neutrophils # Man Lymphocytes # (Manual) Monocytes # (Manual) Eosinophils # (Manual) PT INR D-Dimer Heparin Anti-Xa Level ABG pH POC ABG pCO2 POC ABG pO2 ABG pO2 ABG O2 Saturation ABG Base Excess ABG Hemoglobin ABG Oxyhemoglobin ABG Sodium ABG Potassium ABG Chloride ABG Glucose Oxyhemoglobin Carboxyhemoglobin Sodium 129 L Potassium 5.5 H Chloride 91.3 L Carbon Dioxide BUN 95 H Creatinine 6.4 H Glucose 153 H POC Glucose Hemoglobin A1c Lactic Acid Calcium 7.1 L Phosphorus Magnesium Ferritin Total Bilirubin Direct Bilirubin AST 70 H ALT 130 H Alkaline Phosphatase 205 H Ammonia 94.0 H Lactate Dehydrogenase Total Creatine Kinase C-Reactive Protein Total Protein 4.9 L Albumin 2.1 L Fshxt-5-Lgehxbfbj Rsvyc-2-Dberspezp Beta Globulins Abnorm Protein Band 1 PEP Interpretation Triglycerides TSH Thyroxine (T4) Free T3 Index Arterial Blood Glucose Arterial Blood Ionized Calcium Immunofix Electrophor Coronavirus (PCR) Miscellaneous Test 02/05/21 02/05/21 02/05/21 14:32 14:32 14:32 WBC RBC Hgb Hct MCHC RDW Plt Count Lymph % (Auto) Lymph # (Auto) [place] # (Auto) Seg Neutrophils % Seg Neuts % (Manual) Lymphocytes % (Manual) Nucleated RBC % Seg Neutrophils # Seg Neutrophils # Man Lymphocytes # (Manual) Monocytes # (Manual) Eosinophils # (Manual) PT INR D-Dimer 3359.01 H Heparin Anti-Xa Level ABG pH POC ABG pCO2 POC ABG pO2 ABG pO2 ABG O2 Saturation ABG Base Excess ABG Hemoglobin ABG Oxyhemoglobin ABG Sodium ABG Potassium ABG Chloride ABG Glucose Oxyhemoglobin Carboxyhemoglobin Sodium Potassium Chloride Carbon Dioxide BUN Creatinine Glucose POC Glucose Hemoglobin A1c Lactic Acid Calcium Phosphorus Magnesium Ferritin 2509.0 H Total Bilirubin Direct Bilirubin AST ALT Alkaline Phosphatase Ammonia Lactate Dehydrogenase 1181 H Total Creatine Kinase C-Reactive Protein 5.30 H Total Protein Albumin Tieil-6-Zfoyvgeac Fxiyg-5-Ludyekaax Beta Globulins Abnorm Protein Band 1 PEP Interpretation Triglycerides TSH Thyroxine (T4) Free T3 Index Arterial Blood Glucose Arterial Blood Ionized Calcium Immunofix Electrophor Coronavirus (PCR) Miscellaneous Test 02/05/21 02/05/21 02/05/21 14:32 14:32 16:40 WBC RBC Hgb Hct MCHC RDW Plt Count Lymph % (Auto) Lymph # (Auto) [place] # (Auto) Seg Neutrophils % Seg Neuts % (Manual) Lymphocytes % (Manual) Nucleated RBC % Seg Neutrophils # Seg Neutrophils # Man Lymphocytes # (Manual) Monocytes # (Manual) Eosinophils # (Manual) PT INR D-Dimer Heparin Anti-Xa Level 0.20 L ABG pH POC ABG pCO2 POC ABG pO2 ABG pO2 ABG O2 Saturation ABG Base Excess ABG Hemoglobin ABG Oxyhemoglobin ABG Sodium ABG Potassium ABG Chloride ABG Glucose Oxyhemoglobin Carboxyhemoglobin Sodium 128 L Potassium 5.5 H Chloride 91.2 L Carbon Dioxide BUN 97 H Creatinine 6.2 H Glucose 155 H POC Glucose Hemoglobin A1c Lactic Acid Calcium 7.3 L Phosphorus 9.80 H Magnesium Ferritin Total Bilirubin Direct Bilirubin AST ALT Alkaline Phosphatase Ammonia Lactate Dehydrogenase Total Creatine Kinase C-Reactive Protein Total Protein Albumin Wzhzg-1-Dbkwsnafo Gthcg-6-Ydlkfxtkm Beta Globulins Abnorm Protein Band 1 PEP Interpretation Triglycerides TSH Thyroxine (T4) Free T3 Index Arterial Blood Glucose Arterial Blood Ionized Calcium Immunofix Electrophor Coronavirus (PCR) Miscellaneous Test 02/05/21 02/06/21 02/06/21 17:07 00:19 03:07 WBC RBC Hgb Hct MCHC RDW Plt Count Lymph % (Auto) Lymph # (Auto) [place] # (Auto) Seg Neutrophils % Seg Neuts % (Manual) Lymphocytes % (Manual) Nucleated RBC % Seg Neutrophils # Seg Neutrophils # Man Lymphocytes # (Manual) Monocytes # (Manual) Eosinophils # (Manual) PT INR D-Dimer Heparin Anti-Xa Level ABG pH 7.166 L POC ABG pCO2 65.0 H POC ABG pO2 55.2 L ABG pO2 ABG O2 Saturation ABG Base Excess ABG Hemoglobin 8.9 L ABG Oxyhemoglobin 81.0 L ABG Sodium 126.4 L ABG Potassium 5.6 H ABG Chloride 93.0 L ABG Glucose 122 H Oxyhemoglobin Carboxyhemoglobin Sodium Potassium Chloride Carbon Dioxide BUN Creatinine Glucose POC Glucose 132 H 115 H Hemoglobin A1c Lactic Acid Calcium Phosphorus Magnesium Ferritin Total Bilirubin Direct Bilirubin AST ALT Alkaline Phosphatase Ammonia Lactate Dehydrogenase Total Creatine Kinase C-Reactive Protein Total Protein Albumin Hppmi-1-Qisdytsxj Dpbdz-2-Xqbosmhcu Beta Globulins Abnorm Protein Band 1 PEP Interpretation Triglycerides TSH Thyroxine (T4) Free T3 Index Arterial Blood Glucose 122 H Arterial Blood Ionized Calcium 3.9 L Immunofix Electrophor Coronavirus (PCR) Miscellaneous Test 02/06/21 02/06/21 02/06/21 05:00 05:42 06:40 WBC 59.7 H* RBC 2.72 L Hgb 7.8 L Hct 24.9 L MCHC 31 L RDW 15.4 H Plt Count 124 L Lymph % (Auto) Lymph # (Auto) [place] # (Auto) Seg Neutrophils % Seg Neuts % (Manual) Lymphocytes % (Manual) Nucleated RBC % Seg Neutrophils # Seg Neutrophils # Man Lymphocytes # (Manual) Monocytes # (Manual) Eosinophils # (Manual) PT INR D-Dimer Heparin Anti-Xa Level ABG pH 7.139 L POC ABG pCO2 64.9 H POC ABG pO2 51.5 L ABG pO2 ABG O2 Saturation ABG Base Excess ABG Hemoglobin 8.8 L ABG Oxyhemoglobin 77.8 L ABG Sodium 125.8 L ABG Potassium 5.6 H ABG Chloride 92.0 L ABG Glucose 129 H Oxyhemoglobin Carboxyhemoglobin Sodium Potassium Chloride Carbon Dioxide BUN Creatinine Glucose POC Glucose 115 H Hemoglobin A1c Lactic Acid Calcium Phosphorus Magnesium Ferritin Total Bilirubin Direct Bilirubin AST ALT Alkaline Phosphatase Ammonia Lactate Dehydrogenase Total Creatine Kinase C-Reactive Protein Total Protein Albumin Jgnlq-2-Fwvndvuaw Mdymg-4-Rbypbxjzm Beta Globulins Abnorm Protein Band 1 PEP Interpretation Triglycerides TSH Thyroxine (T4) Free T3 Index Arterial Blood Glucose 129 H Arterial Blood Ionized Calcium 3.9 L Immunofix Electrophor Coronavirus (PCR) Miscellaneous Test 02/06/21 02/06/21 02/06/21 06:40 10:15 11:39 WBC RBC Hgb Hct MCHC RDW Plt Count Lymph % (Auto) Lymph # (Auto) [place] # (Auto) Seg Neutrophils % Seg Neuts % (Manual) Lymphocytes % (Manual) Nucleated RBC % Seg Neutrophils # Seg Neutrophils # Man Lymphocytes # (Manual) Monocytes # (Manual) Eosinophils # (Manual) PT INR D-Dimer Heparin Anti-Xa Level 0.18 L ABG pH POC ABG pCO2 POC ABG pO2 ABG pO2 ABG O2 Saturation ABG Base Excess ABG Hemoglobin ABG Oxyhemoglobin ABG Sodium ABG Potassium ABG Chloride ABG Glucose Oxyhemoglobin Carboxyhemoglobin Sodium Potassium Chloride Carbon Dioxide BUN Creatinine Glucose POC Glucose 141 H Hemoglobin A1c Lactic Acid Calcium Phosphorus Magnesium Ferritin Total Bilirubin Direct Bilirubin AST ALT Alkaline Phosphatase Ammonia 100.0 H Lactate Dehydrogenase Total Creatine Kinase C-Reactive Protein Total Protein Albumin Qwzop-9-Bgdyasdlv Bvchz-5-Zhmeeemko Beta Globulins Abnorm Protein Band 1 PEP Interpretation Triglycerides TSH Thyroxine (T4) Free T3 Index Arterial Blood Glucose Arterial Blood Ionized Calcium Immunofix Electrophor Coronavirus (PCR) Miscellaneous Test 02/06/21 02/06/21 02/06/21 15:12 18:15 21:00 WBC RBC Hgb Hct MCHC RDW Plt Count Lymph % (Auto) Lymph # (Auto) [place] # (Auto) Seg Neutrophils % Seg Neuts % (Manual) Lymphocytes % (Manual) Nucleated RBC % Seg Neutrophils # Seg Neutrophils # Man Lymphocytes # (Manual) Monocytes # (Manual) Eosinophils # (Manual) PT INR D-Dimer Heparin Anti-Xa Level 0.18 L ABG pH POC ABG pCO2 50.6 H POC ABG pO2 36.5 L ABG pO2 ABG O2 Saturation ABG Base Excess ABG Hemoglobin 8.6 L ABG Oxyhemoglobin 66.7 L ABG Sodium 129.1 L ABG Potassium ABG Chloride 96.0 L ABG Glucose 122 H Oxyhemoglobin Carboxyhemoglobin Sodium Potassium Chloride Carbon Dioxide BUN Creatinine Glucose POC Glucose 123 H Hemoglobin A1c Lactic Acid Calcium Phosphorus Magnesium Ferritin Total Bilirubin Direct Bilirubin AST ALT Alkaline Phosphatase Ammonia Lactate Dehydrogenase Total Creatine Kinase C-Reactive Protein Total Protein Albumin Fdwah-7-Ockifeupv Yztjg-2-Fmauvmmaz Beta Globulins Abnorm Protein Band 1 PEP Interpretation Triglycerides TSH Thyroxine (T4) Free T3 Index Arterial Blood Glucose 122 H Arterial Blood Ionized Calcium 4.0 L Immunofix Electrophor Coronavirus (PCR) Miscellaneous Test 02/07/21 02/07/21 06:26 11:15 WBC RBC Hgb Hct MCHC RDW Plt Count Lymph % (Auto) Lymph # (Auto) [place] # (Auto) Seg Neutrophils % Seg Neuts % (Manual) Lymphocytes % (Manual) Nucleated RBC % Seg Neutrophils # Seg Neutrophils # Man Lymphocytes # (Manual) Monocytes # (Manual) Eosinophils # (Manual) PT INR D-Dimer Heparin Anti-Xa Level ABG pH POC ABG pCO2 POC ABG pO2 ABG pO2 ABG O2 Saturation ABG Base Excess ABG Hemoglobin ABG Oxyhemoglobin ABG Sodium ABG Potassium ABG Chloride ABG Glucose Oxyhemoglobin Carboxyhemoglobin Sodium Potassium Chloride Carbon Dioxide BUN Creatinine Glucose POC Glucose 109 H 122 H Hemoglobin A1c Lactic Acid Calcium Phosphorus Magnesium Ferritin Total Bilirubin Direct Bilirubin AST ALT Alkaline Phosphatase Ammonia Lactate Dehydrogenase Total Creatine Kinase C-Reactive Protein Total Protein Albumin Qaqca-7-Dyffkgikg Fwcuc-1-Offwasgzo Beta Globulins Abnorm Protein Band 1 PEP Interpretation Triglycerides TSH Thyroxine (T4) Free T3 Index Arterial Blood Glucose Arterial Blood Ionized Calcium Immunofix Electrophor Coronavirus (PCR) Miscellaneous Test Chest x-ray: other (none today) Allied health notes reviewed: nursing
--- NOTE | 2021-02-07 16:49 | Progress Note ---
Assessment and Plan Cultures: SARS CoV2 PCR: positive 01/22/2021 blood culture: No growth 01/25/2021 endotracheal aspirate culture: Aspergillus fumigatus 02/03/2021 blood culture: in process 02/03/2021 ET aspirate culture: in process. A/P: 55/M with obesity, admitted with: #Shock: likely secondary to severe COVID-19. #Leukemoid reaction: multifactorial, from below. On empiric abx. #Bilateral pneumonia: Secondary to COVID-19. Very high d-dimer. DVT scan negative. #Mold in sputum: ?colonization. Awaiting ID, meanwhile, initiated PO voriconazole given steroids and Actemra. Avoid ABLC given renal failure. #Acute hypoxic respiratory failure: Failed BiPAP. Requiring mechanical ventilation. #Subcutaneous emphysema, b/l pneumothorax, was seen by surgery and underwent right-sided chest tube placement 01/31/2021, left chest tube placement by Dr. Yee on 02/01/2021. #SEDRICK: creatinine elevated, on HD per nephrology. #Morbid obesity Recs: -f/u new cultures -continue IV Cefepime + Vancomycin, D3 of 5 -On PO vancomycin. Compelte 10 days if diarrhea improving -s/p Actemra on 01/26/2021 -completed steroids -continue PO voriconazole for mold in sputum given use of steroids and Actemra. Will likely need prolonged course if he survives -prophylactic anticoagulation based on d-dimer per hospital protocol. -extremely poor prognosis, consider DNR status GNat Eric MD [facility] ([facility] O: [phone] F: [phone] Subjective Date of service: 02/07/21 Principal diagnosis: Ac hypoxemic resp failure; COVID-19; Pneumonia; Sepsis; Morbid obesity Interval history: Afebrile, remains on the vent. No acute change. Objective - Exam Narrative Exam: Physical exam deferred to reduce risk of transmission of COVID-19. Please refer to primary team's note. - Constitutional Vitals: Vital Signs Temp Pulse Resp BP Pulse Ox 97.5 F L 62 29 H 113/45 88 02/07/21 11:29 02/07/21 16:00 02/07/21 15:00 02/07/21 15:00 02/07/21 15:00 Temperature -Last 24 Hours Temperature 97.5 F Temperature 97.7 F Temperature 98.8 F Temperature 98.9 F - Labs CBC & Chem 7: 02/06/21 06:40 02/05/21 14:32 Labs: Abnormal lab results 02/06/21 02/06/21 02/07/21 Range/Units 18:15 21:00 06:26 Heparin Anti-Xa Level 0.18 L (0.3-0.7) U.I./ml POC Glucose 123 H 109 H (70-105) mg/dL 02/07/21 Range/Units 11:15 Heparin Anti-Xa Level (0.3-0.7) U.I./ml POC Glucose 122 H (70-105) mg/dL
--- NOTE | 2021-02-07 18:59 | Progress Note ---
Assessment and Plan Assessment and plan: Assessment and plan: This is a 55-year-old male with morbid obesity, former nicotine abuse and venous insufficiency who was admitted as a COVID-19 PUI with acute hypoxic respiratory failure, sepsis, multifocal pneumonia Neuro: Acute metabolic encephalopathy, hepatic encephalopathy -elevated ammonia -EEG completed -not waking up -neuro consulted Cardio: A. fib with RVR; hypotension -Cardiology consulted, appreciate recommendations -Transitioned from IV amiodarone to p.o. amiodarone -Echocardiogram completed ee results -Wean vasopressor support for MAP goal greater than 65 -Levo as needed Respiratory: Acute hypoxic respiratory failure, Bilateral pneumothorax with large airleak on the right -Intubated -CCM consulted, managing vent -surgery following for CT -CT to wall suction - large airleak on the right -Serial ABG and CXR -VAP bundle -Continuous SPO2 monitoring GI: protein isa. malnutrition, transaminitis -TF as tolerated -on reglan -BR: Senokot -Renal ultrasound reviewed-> shows only hepatic steatosis -Trend LFTs : Acute kidney injury secondary to vasomotor nephropathy, hyperkalemia -Nephrology consulted, appreciate recommendations -Patient initiated on hemodialysis 01/27 -HD per nephrology -Strict intake and output -Avoid nephrotoxic medications-renally dose medications Endo: NAD; obese -SSI PRN ID: COVID-19 pneumonia, septic shock, bilateral pneumonia,? Mold in sputum, Leukocytosis -Infectious disease consulted, appreciate recommendations (signed off 01/31) -Contact/droplet isolation -Dexamethasone for 10 days -Actemra administered 01/26 -P.o. voriconazole given steroids and Actemra -Per infectious disease: Avoid ABLC given renal failure -S/p ABX therapy for pneumonia -Monitor WBC and fever curve -trend cultures -treating for presumed cdiff given loose stool overnight - vanc PO x 10 days Heme: Elevated D-dimer, leukocytosis -Anticoagulation with heparin drip -Trend CBC -Transfuse for hemoglobin less than 7 -Lower extremity Doppler ultrasound shows no evidence of DVT DNR since 02/06, no acive management per family request,grave prognosis History Interval history: This is a 55-year-old male with morbid obesity venous insufficiency, former smoker who presented to the emergency department on 01/22 for SOB x4 days prior to admission and patient was diagnosed with COVID-19 at OSH on 01/16 after the patient was discharged. Patient had worsening symptoms therefore he presented to [facility]. Patient had fever, chills, headache, cough, shortness of breath, body aches, loss of taste and smell. Upon arrival of EMS patient was saturating at 60% on room air and received albuterol, magnesium, Solu-Medrol. Patient remained hypoxic in spite of being on a nonrebreather and was started on a BiPAP in the emergency department. Patient was admitted to the hospitalist service with consults to ID, pulmonology and later nephrology and cardiology. Patient admitted for acute hypoxic respiratory failure, sepsis, multifocal pneumonia, PUI for COVID-19. 02/04: Patient remains on high vent settings, family to visit tomorrow [facility] kisha. 02/03: HD MWF, left sided chest tube placed today at bedside by [facility]. Leukocytosis noted and will monitor. Witness consent for chest tube from who wants "everything done to save his life" 02/02: vent changes made by [facility], no acute events reported overnight. A.m. CXR read as improvement to pneumothorax. No acute events reported overnight. pt has hyperkalemia today but scheduled for hd today 02/01: patient was started on trickle feeding yesterday, heparin was on hold for placement of chest tube by surgery. Today patient developed pneumothorax and chest tube was placed again by surgery at bedside. Patient tube feedings will be gradually increased to goal as tolerated. 01/31: Patient has subq air on exam, cxr shows possible apical pneumo and surgery consulted for possible chest tube placement. HD today 01/30: This morning patient is not on sedation and does not follow commands, per RN report patient does not have cough/gag. No acute events reported overnight. EEG ordered, KUB and NGT to LIS for high residuals. NH3 high-lactulose started 01/29: Patient is in acute respiratory failure on continuous BiPAP With low saturations intermittently Patient has severe Covid pneumonia, elevated D-dimers on empiric full dose anticoagulation Not a candidate for CTA chest as patient is unstable Patient is critically ill in severe distress Patient has low saturations even on continuous BiPAP May need intubation and mechanical ventilation Vital signs noted 01/28/2021 Patient intubated Sedated Same condition On pressors Poor prognosis 01/27/2021 Patient intubated Sedated On vent protocol 01/26/2021 Patient is intubated Patient is Covid positive 01/25/2021; patient for intubation and mechanical ventilation As patient is severely hypoxemic even on continuous BiPAP 01/24: Patient is severely hypoxemic requiring continuous BiPAP, with borderline O2 sats Pulmonary critical following, stat ABG If no improvement intubate as needed Patient is elevated D-dimers, in the setting of COVID-19 morbid obesity respiratory failure requiring continuous BiPAP We will treat empirically with full dose anticoagulation, check CTA chest and lower extremity venous Doppler to rule out PE and DVT. Patient is critically ill with poor prognosis Plan of care reviewed with the patient and his nurse 01/23: We will closely monitor the patient and adjust management as needed Follow khan PCR test, consult ID if needed 02-05 no acute events overnight 02-06 Family made DNR and no active management 02/07 Family requested DNR status and no active management on 02/06 since he remains severely hypoxic, pO2 36 on Fio2 100%, however did not request WOC. He remains unresponsive and severely hypoxic with imminent . d/w nursing staff. History Interval history: Family requested DNR status and no active management on 02/06 since he remains severely hypoxic, pO2 36 on Fio2 100%, however did not request WOC. He remains unresponsive. Hospitalist Physical - Constitutional Vitals: Temp Pulse Resp BP Pulse Ox 97.5 F L 69 30 H 112/49 86 02/07/21 11:29 02/07/21 18:15 02/07/21 18:15 02/07/21 18:15 02/07/21 18:15 General appearance: Present: mild distress, obese (Morbidly obese), other (on vent,unresponsive) - EENT ENT: other (ETT in place) - Neck Neck: Present: supple - Respiratory Respiratory effort: other (on vent) Respiratory: bilateral: diminished - Cardiovascular Rhythm: regular - Abdominal General gastrointestinal: soft, non-tender - Neurologic Neurologic: other (unreponsive on vent) HEART Score - HEART Score Age: 45-65 Risk factors: 1-2 risk factors Troponin: < normal limit - Critical Actions Critical Actions: 0-3 pts:0.9-1.7%risk of adverse cardiac event.Candidate for discharge Results - Labs CBC & Chem 7: 02/06/21 06:40 02/08/21 01:28 Labs: Laboratory Last Values WBC 59.7 K/mm3 (4.5-11.0) H* 02/06/21 06:40 RBC 2.72 M/mm3 (3.65-5.03) L 02/06/21 06:40 Hgb 7.8 gm/dl (11.8-15.2) L 02/06/21 06:40 Hct 24.9 % (35.5-45.6) L 02/06/21 06:40 MCV 92 fl (84-94) 02/06/21 06:40 MCH 29 pg (28-32) 02/06/21 06:40 MCHC 31 % (32-34) L 02/06/21 06:40 RDW 15.4 % (13.2-15.2) H 02/06/21 06:40 Plt Count 124 K/mm3 (140-440) L 02/06/21 06:40 Lymph % (Auto) 4.4 % (13.4-35.0) L 01/23/21 05:29 [place] % (Auto) 6.4 % (0.0-7.3) 01/23/21 05:29 Lymph # (Auto) 0.8 K/mm3 (1.2-5.4) L 01/23/21 05:29 [place] # (Auto) 1.2 K/mm3 (0.0-0.8) H 01/23/21 05:29 Add Manual Diff Complete 02/02/21 Unknown Total Counted 100 02/02/21 Unknown Seg Neutrophils % Sap Bi Developer 02/02/21 Unknown Seg Neuts % (Manual) 94.0 % (40.0-70.0) H 02/02/21 Unknown Band Neutrophils % 2.0 % 01/22/21 11:06 Lymphocytes % (Manual) 3.0 % (13.4-35.0) L 02/02/21 Unknown Monocytes % (Manual) 2.0 % (0.0-7.3) 02/02/21 Unknown Eosinophils % (Manual) 1.0 % (0.0-4.3) 02/02/21 Unknown Nucleated RBC % Not Reportable 02/02/21 Unknown Seg Neutrophils # 16.9 K/mm3 (1.8-7.7) H 01/23/21 05:29 Seg Neutrophils # Man 56.6 K/mm3 (1.8-7.7) H 02/02/21 Unknown Band Neutrophils # 0.0 K/mm3 02/02/21 Unknown Lymphocytes # (Manual) 1.8 K/mm3 (1.2-5.4) 02/02/21 Unknown Abs React Lymphs (Man) 0.0 K/mm3 02/02/21 Unknown Monocytes # (Manual) 1.2 K/mm3 (0.0-0.8) H 02/02/21 Unknown Eosinophils # (Manual) 0.6 K/mm3 (0.0-0.4) H 02/02/21 Unknown Basophils # (Manual) 0.0 K/mm3 (0.0-0.1) 02/02/21 Unknown Metamyelocytes # 0.0 K/mm3 02/02/21 Unknown Myelocytes # 0.0 K/mm3 02/02/21 Unknown Promyelocytes # 0.0 K/mm3 02/02/21 Unknown Blast Cells # 0.0 K/mm3 02/02/21 Unknown WBC Morphology Not Reportable 02/02/21 Unknown Hypersegmented Neuts Not Reportable 02/02/21 Unknown Hyposegmented Neuts Not Reportable 02/02/21 Unknown Hypogranular Neuts Not Reportable 02/02/21 Unknown Smudge Cells Not Reportable 02/02/21 Unknown Toxic Granulation Not Reportable 02/02/21 Unknown Toxic Vacuolation Not Reportable 02/02/21 Unknown Dohle Bodies Not Reportable 02/02/21 Unknown Pelger-Huet Anomaly Not Reportable 02/02/[address]s Not Reportable 02/02/21 Unknown Platelet Estimate Not Reportable 02/02/21 Unknown Clumped Platelets Not Reportable 02/02/21 Unknown Plt Clumps, EDTA Not Reportable 02/02/21 Unknown Large Platelets Not Reportable 02/02/21 Unknown Giant Platelets Not Reportable 02/02/21 Unknown Platelet Satelliting Not Reportable 02/02/21 Unknown Plt Morphology Comment Not Reportable 02/02/21 Unknown RBC Morphology Normal 02/02/21 Unknown Dimorphic RBCs Not Reportable 02/02/21 Unknown Polychromasia Not Reportable 02/02/21 Unknown Hypochromasia Not Reportable 02/02/21 Unknown Poikilocytosis Not Reportable 02/02/21 Unknown Anisocytosis Not Reportable 02/02/21 Unknown Microcytosis Not Reportable 02/02/21 Unknown Macrocytosis Not Reportable 02/02/21 Unknown Spherocytes Not Reportable 02/02/21 Unknown Pappenheimer Bodies Not Reportable 02/02/21 Unknown Sickle Cells Not Reportable 02/02/21 Unknown Target Cells Not Reportable 02/02/21 Unknown Tear Drop Cells Not Reportable 02/02/21 Unknown Ovalocytes Not Reportable 02/02/21 Unknown Helmet Cells Not Reportable 02/02/21 Unknown [place] Bodies Not Reportable 02/02/21 Unknown [place] Rings Not Reportable 02/02/21 Unknown Claudia Cells Not Reportable 02/02/21 Unknown Bite Cells Not Reportable 02/02/21 Unknown Crenated Cell Not Reportable 02/02/21 Unknown Elliptocytes Not Reportable 02/02/21 Unknown Acanthocytes (Spur) Not Reportable 02/02/21 Unknown Rouleaux Not Reportable 02/02/21 Unknown Hemoglobin C Crystals Not Reportable 02/02/21 Unknown Schistocytes Not Reportable 02/02/21 Unknown Malaria parasites Not Reportable 02/02/21 Unknown Lloyd Bodies Not Reportable 02/02/21 Unknown Hem Pathologist Commnt No 02/02/21 Unknown PT 15.1 Sec. (12.2-14.9) H 02/02/21 Unknown INR 1.13 (0.87-1.13) 02/02/21 Unknown APTT 29.2 Sec. (24.2-36.6) 01/28/21 10:03 D-Dimer 3359.01 ng/mlDDU (0-234) H 02/05/21 14:32 Heparin Anti-Xa Level 0.58 U.I./ml (0.3-0.7) 02/07/21 Unknown ABG pH 7.322 (7.320-7.450) 02/06/21 15:12 POC ABG pCO2 50.6 mmHg (32.0-48.0) H 02/06/21 15:12 ABG pCO2 62.3 mm Hg 02/05/21 04:39 POC ABG pO2 36.5 mmHg (83-108) L 02/06/21 15:12 ABG pO2 64.8 mm Hg (80.0-90.0) L 02/05/21 04:39 POC ABG HCO3 25.6 02/06/21 15:12 ABG HCO3 24.0 mmol/L (20.0-26.0) 02/05/21 04:39 ABG O2 Saturation 67.9 (0-100) 02/06/21 15:12 ABG O2 Content 10.3 (0.0-44) 02/05/21 04:39 POC ABG Base Excess -0.7 02/06/21 15:12 ABG Base Excess -4.2 mmol/L (-2.0-3.0) L 02/05/21 04:39 ABG Hemoglobin 8.6 (12.0-17.5) L 02/06/21 15:12 ABG Oxyhemoglobin 66.7 (94-98) L 02/06/21 15:12 ABG Carboxyhemoglobin 2.1 % (0.0-5.0) 02/05/21 04:39 ABG Methemoglobin 0.3 (0.0-1.5) 02/06/21 15:12 ABG Sodium 129.1 mmol/L (136.0-145.0) L 02/06/21 15:12 ABG Potassium 4.1 mmol/L (3.40-4.50) 02/06/21 15:12 ABG Chloride 96.0 mmol/L (98-107) L 02/06/21 15:12 ABG Glucose 122 mg/dL (65-95) H 02/06/21 15:12 Oxyhemoglobin 84.1 % (95.0-99.0) L 02/05/21 04:39 Carboxyhemoglobin 1.5 (0.5-1.5) 02/06/21 15:12 FiO2 100 % 02/05/21 04:39 FiO2 % 100.0 02/06/21 15:12 Sodium 128 mmol/L (137-145) L 02/05/21 14:32 Sodium 129 mmol/L (137-145) L 02/05/21 14:32 Potassium 5.5 mmol/L (3.6-5.0) H 02/05/21 14:32 Potassium 5.5 mmol/L (3.6-5.0) H 02/05/21 14:32 Chloride 91.2 mmol/L (98-107) L 02/05/21 14:32 Chloride 91.3 mmol/L (98-107) L 02/05/21 14:32 Carbon Dioxide 22 mmol/L (22-30) 02/05/21 14:32 Carbon Dioxide 23 mmol/L (22-30) 02/05/21 14:32 Anion Gap 19 mmol/L 02/05/21 14:32 Anion Gap 21 mmol/L 02/05/21 14:32 BUN 95 mg/dL (9-20) H 02/05/21 14:32 BUN 97 mg/dL (9-20) H 02/05/21 14:32 Creatinine 6.2 mg/dL (0.8-1.3) H 02/05/21 14:32 Creatinine 6.4 mg/dL (0.8-1.3) H 02/05/21 14:32 Estimated GFR 9 ml/min 02/05/21 14:32 Estimated GFR 10 ml/min 02/05/21 14:32 BUN/Creatinine Ratio 15 % 02/05/21 14:32 BUN/Creatinine Ratio 16 % 02/05/21 14:32 Glucose 153 mg/dL (75-100) H 02/05/21 14:32 Glucose 155 mg/dL (75-100) H 02/05/21 14:32 POC Glucose 145 mg/dL (70-105) H 02/07/21 17:28 Hemoglobin A1c 6.2 % (4-6) H 01/22/21 11:06 Lactic Acid 1.30 mmol/L (0.7-2.0) 02/05/21 16:40 Calcium 7.1 mg/dL (8.4-10.2) L 02/05/21 14:32 Calcium 7.3 mg/dL (8.4-10.2) L 02/05/21 14:32 Phosphorus 9.80 mg/dL (2.5-4.5) H 02/05/21 16:40 Magnesium 2.50 mg/dL (1.7-2.3) H 02/03/21 05:25 Ferritin 2509.0 ng/mL (30.0-300.0) H 02/05/21 14:32 Total Bilirubin 1.20 mg/dL (0.1-1.2) 02/05/21 14:32 Direct Bilirubin 1.6 mg/dL (0-0.2) H 01/31/21 03:30 Indirect Bilirubin 0.0 mg/dL 01/31/21 03:30 AST 70 units/L (5-40) H 02/05/21 14:32 ALT 130 units/L (7-56) H 02/05/21 14:32 Alkaline Phosphatase 205 units/L (35-129) H 02/05/21 14:32 Ammonia 100.0 umol/L (25-60) H 02/06/21 06:40 Lactate Dehydrogenase 1181 units/L (91-180) H 02/05/21 14:32 Total Creatine Kinase 258 units/L (55-170) H 01/27/21 05:00 C-Reactive Protein 5.30 mg/dL (0.00-1.30) H 02/05/21 14:32 Serum Total Protein 7.2 g/dL (6.1-8.1) 01/27/21 11:55 Total Protein 4.9 g/dL (6.3-8.2) L 02/05/21 14:32 Albumin 2.1 g/dL (3.9-5) L 02/05/21 14:32 Albumin/Globulin Ratio 0.8 % 02/05/21 14:32 Xyefn-7-Wttgnwpic 0.7 g/dL (0.2-0.3) H 01/27/21 11:55 Zwpca-8-Yafqexnoh 1.2 g/dL (0.5-0.9) H 01/27/21 11:55 Beta Globulins 0.7 g/dL (0.2-0.5) H 01/27/21 11:55 Gamma Globulins 1.6 g/dL (0.8-1.7) 01/27/21 11:55 Abnorm Protein Band 1 0.5 g/dL H 01/27/21 11:55 PEP Interpretation see below H 01/27/21 11:55 Triglycerides 369 mg/dL (2-149) H 01/28/21 04:00 Lipase 46 units/L (13-60) 02/01/21 04:00 Procalcitonin 2.11 ng/mL (<0.15) 01/25/21 06:22 TSH 0.013 mlU/mL (0.270-4.200) L 01/28/21 10:03 Thyroxine (T4) 3.3 ug/dL (4.0-12.0) L 01/30/21 15:35 Free T3 Index 1.1 pg/mL (2.3-4.2) L 01/30/21 15:35 Arterial Blood Glucose 122 mg/dL (65-95) H 02/06/21 15:12 Arterial Blood Ionized Calcium 4.0 mg/dL (4.6-5.3) L 02/06/21 15:12 Random Vancomycin 13.1 ug/mL (0-40.0) 02/05/21 14:32 Immunofix Electrophor see below H 01/27/21 11:55 ANURAG Screen Negative (Negative) 01/27/21 11:55 Proteinase 3 (PR3) Ab <1.0 AI (<1.0) 01/27/21 11:55 Myeloperoxidase Ab <1.0 AI (<1.0) 01/27/21 11:55 Complement C3 105 mg/dL (82-185) 01/27/21 11:55 Complement C4 17 mg/dL (15-53) 01/27/21 11:55 Coronavirus (PCR) Positive (Negative) A 01/23/21 09:00 Hepatitis A IgM Ab Non-reactive (NonReactive) 01/27/21 11:41 Hep Bs Antigen Nonreactive (Negative) 01/27/21 11:41 Hep B Core IgM Ab Non-reactive (NonReactive) 01/27/21 11:41 Hepatitis C Antibody Non-reactive (NonReactive) 01/27/21 11:41 Miscellaneous Test Flexitest 1 H 01/29/21 Unknown Miscellaneous Test Tnp 01/29/21 Unknown Microbiology: Microbiology 02/03/21 08:44 Peripheral/Venous Blood Culture - Preliminary NO GROWTH AFTER 4 DAYS 02/03/21 08:44 Peripheral/Venous Blood Culture - Preliminary NO GROWTH AFTER 4 DAYS Ramirez/IV: Voiding Method Incontinent Active Medications - Current Medications Current Medications: Generic Name Dose Route Start Last Admin Trade Name Freq PRN Reason Stop Dose Admin Albumin Human 25 gm 02/06/21 08:45 Albumin Human 25% (25 Gm/100 Ml) Inj IV MELECIO PRN Hypotension Amiodarone HCl 200 mg 01/30/21 10:00 02/07/21 10:42 Amiodarone 200 Mg Tab PO 200 mg DAILY JACK Administration Lipase/Protease/Amylase 1 each 01/27/21 11:37 Lipase 10,500/Protease 25,000/Amylase 43,750 (Units) Dr Cap FEEDTUBE PRN PRN For Clogged Feeding Tube Ascorbic Acid 500 mg 02/02/21 11:00 02/07/21 10:41 Ascorbic Acid 500 Mg Tab PO 500 mg BID JACK Administration Cholecalciferol 5,000 unit 02/02/21 11:00 02/07/21 10:41 Cholecalciferol (Vit D3) 5,000 Unit Tab PO 5,000 unit DAILY JACK Administration Dextrose 50 ml 01/29/21 12:24 Dextrose 50% In Water (25gm) 50 Ml Syringe IV Q30MIN PRN Hypoglycemia Protocol Famotidine 20 mg 01/27/21 10:00 02/07/21 10:42 Famotidine 20 Mg/2 Ml Inj IV 20 mg DAILY JACK Administration Fentanyl 50 mcg 02/03/21 15:20 Fentanyl 100 Mcg/2 Ml Inj IV Q10MIN PRN ANALGESIA Heparin Sodium (Porcine) 5,000 unit 01/28/21 09:27 Heparin 10,000 Units/10 Ml Vial IV Q6H PRN Anti-Xa Assay < 0.1 units/ml Hydrophilic Ointment 1 applic 01/25/21 13:27 Lip Therapy Vaseline TP Q2HR PRN Dry Lips Vasopressin 20 unit/ Sodium 101 mls @ 9.09 mls/hr 01/28/21 07:00 01/30/21 08:55 Chloride IV Infused TITR JACK Titration Protocol 0.03 UNITS/MIN Heparin Sodium/Sodium Chloride 25,000 unit in 500 mls @ 30 mls/hr 01/28/21 11:00 02/07/21 12:45 Heparin/ 0.45% Nacl-25,000 Unit/500 Ml IV 1,850 units/hr TITR JACK 37 mls/hr Administration Protocol 1,500 UNITS/HR Fentanyl Citrate 2,000 mcg in 100 mls @ 6.4 mls/hr 02/03/21 16:00 02/07/21 17:25 Fentanyl Drip Premix IV 1 mcg/kg/hr TITR JACK 6.4 mls/hr Administration Protocol 1 MCG/KG/HR Sodium Chloride 100 mls @ 999 mls/hr 02/06/21 08:45 Nacl 0.9% IV MELECIO PRN Hypotension NORepinephrine/NS 8 MG-250 ML 8 mg in 250 mls @ 3.75 mls/hr 02/06/21 14:00 02/07/21 15:00 Norepinephrine/Ns 8 Mg-250 Ml (Double Conc) IV 6 mcg/min TITRATE JACK 11.25 mls/hr Titration Protocol 2 MCG/MIN Insulin Human Regular 0 units 01/29/21 13:00 02/07/21 17:33 Insulin Regular, Human 100 Units/1 Ml SUB-Q Not Given Q6HR [facility] Protocol Metoclopramide HCl 5 mg 02/06/21 10:00 02/07/21 17:25 Metoclopramide 10 Mg/2 Ml Inj IV 5 mg Q8H JACK Administration Multi-Ingred Cream/Lotion/Oil/Oint 1 applic 01/25/21 13:27 Mineral Oil/Petrolatum, White Ophth Oint 3.5 Gm OU Q4HR PRN Dry Eye(s) Ondansetron HCl 4 mg 01/22/21 23:03 Ondansetron 4 Mg/2 Ml Inj IV Q8H PRN Nausea And Vomiting Senna/Docusate Sodium 1 tab 01/25/21 22:00 02/07/21 10:41 Sennosides/Docusate Sodium 8.6/50 Mg Tab FEEDTUBE 1 tab BID JACK Administration Simple Syrup 15 ml 01/27/21 11:37 Simple Syrup 15 Ml FEEDTUBE PRN PRN Hypoglycemia Simple Syrup 30 ml 01/27/21 11:37 Simple Syrup 15 Ml FEEDTUBE PRN PRN Hypoglycemia Sodium Bicarbonate 325 mg 01/27/21 11:37 Sodium Bicarbonate 325 Mg Tab FEEDTUBE PRN PRN For Clogged Feeding Tube Sodium Chloride 10 ml 01/22/21 23:45 02/07/21 10:41 Sodium Chloride 0.9% 10 Ml Flush Syringe IV 10 ml BID JACK Administration Sodium Chloride 10 ml 01/22/21 23:03 Sodium Chloride 0.9% 10 Ml Flush Syringe IV PRN PRN LINE FLUSH Vancomycin HCl 125 mg 02/06/21 12:00 02/07/21 17:25 Vancomycin 250 Mg/10 Ml Oral Liqd PO 02/15/21 12:01 125 mg Q6HR JACK Administration Protocol Voriconazole 300 mg 01/29/21 11:00 02/07/21 10:41 Voriconazole 200 Mg Tab PO 300 mg Q12HR JACK Administration Zinc Sulfate 220 mg 02/02/21 11:00 02/07/21 10:42 Zinc Sulfate 220 Mg Cap PO 220 mg BID JACK Administration Nutrition/Malnutrition Assess - Dietary Evaluation Nutrition/Malnutrition Findings: Nutrition Notes Start: 01/24/21 13:25 Freq: Status: Active Protocol: Document 02/05/21 10:43 (Rec: 02/05/21 10:53 [id number]) Nutrition Notes Initial or Follow up Reassessment Current Diagnosis Sepsis,Respiratory Failure, Malnutrition Other Pertinent Diagnosis covid-19, pneumonia Current Diet Nepro 1.8 at 30 ml/hr Labs/Tests 02/04: Na 133 BUN 77 Cr 5.3 Pertinent Medications Levophed Reglan Height 5 ft 6 in Weight 128 kg [place] Body Weight (kg) 64.54 BMI 45.5 Weight Status Morbidly Obese Subjective/Other Information Pt suffered code blue this AM. Per chart, pt TF remains running at 30 ml/hr. Percent of energy/protein needs met: 72%/36% Burn Absent Trauma Absent GI Symptoms None Current % PO Negligible Minimum of two criteria No physical signs of malnutrition #1 Nutrition Diagnosis Inadequate oral intake Diagnosis Progress(for reassessment Continues documentation) Is patient on ventilator? Yes Is Patient Ambulatory and/or Out of Bed No REE-(Recluse-[facility]-confined to bed) 2484.852 Kcal/Kg value to use for calculation 14 Approximate Energy Requirements Using 1792 kcal/Kg Calculation Used for Recommendations Kcal/kg Additional Notes Protein needs: up to 161 (up to 2.5 g/kgIBW) fluid needs: 1ml/kcal or per MD order Nutrition Intervention Change Diet Order: Increase TF Nutrition Support: Nepro at 40 ml/hr with a free water flush of 175 ml q4h Kcal 1,728 Protein (gm) 78 Fluid (mL) 698 Goal #1 Meet at least 75% of kcal and meet protein needs as best as possible via TF Anticipated Discharge Needs: Unable to determine at this time Follow-Up By: 02/08/21 Additional Comments F/u: TF rate and tolerance
[2021-02-08] MEDS: METOCLOPRAMIDE 10 MG/2 ML INJ IV SCH (01:38)
[2021-02-08] MEDS: VANCOMYCIN 250 MG/10 ML ORAL LIQD PO SCH ×5 (01:38→23:57)
[2021-02-08] MEDS: HEPARIN/ 0.45% NACL DRIP 25,000 UNIT/500 ML BAG IV SCH ×2 (01:41→15:20)
[2021-02-08 02:03] LABS: Calcium 7.4 mg/dL (8.4-10.2)
[2021-02-08] MEDS: INSULIN REGULAR, HUMAN 100 UNITS/1 ML SUB-Q SCH ×5 (06:50→23:58)
[2021-02-08] MEDS: SENNOSIDES/DOCUSATE SODIUM 8.6/50 MG TAB FEEDTUBE SCH ×2 (06:52→17:44)
--- NOTE | 2021-02-08 08:36 | Progress Note ---
Assessment and Plan Acute hypoxemic respiratory failure COVID-19 infection Multifocal pneumonia Hypernatremia Sepsis Morbid obesity with BMI of 40.0-44.9, adult (discussed gravity of situation with his and the likely futility of resuscitative efforts; she feels like he will not want to suffer further and has decided to go with DNR status) - follow CXR - continue on PRVC/AC mode - will attempt to wean peep down as tolerated if O2 sats stay in 80's (peep remains at 20 cm H2O) - continue HD/UF per nephrology prescription as tolerated for toxin and volume clearance - very grave prognosis - continue care as below otherwise; - continue empiric oral Vancomycin - continue all chest tubes to wall suction (continuous) - Vasopressors for target MAP > 65 mmHg - Daily SAT and SBT assessment as tolerated - VAP bundle addressed - continue lung protective strategies - continue bronchodilators with pulmonary hygiene per RT - wean per pulmonary driven protocols otherwise - avoid nephrotoxins, renally dose all medications - continue to avoid benzodiazepine's, reduce the possibility of delirium - complete AB's per ID rec's - prn analgesia per CPOT score - Maintenance of sleep-wake cycle, avoid delirium - enteral nutritional support at goal rate as tolerated - G.I. & VTE prophylaxis - PT/OT/ROM exercises - continue mobility protocols for pressure ulcer prophylaxis - Monitor hemodynamics closely - continue other care per attending / other consultants - discharge planning ongoing concurrently COVID SPECIFIC INTERVENTIONS - Remdesivir as per ID/Pulmonary developed protocols (receiving) - continue systemic steroids for severe COVID-19 infection (Dexamethasone) - follow repeat COVID tests results - zinc and vitamin C supplementation - Monitor inflammatory markers per facility protocol - ferritin, Ddimer, CRP - therapeutic anticoagulation per system Protocol based on d-dimer and clinical considerations (VTE prophylaxis doses now) - Continue contact and airborne isolation .... Re-evaluate in am & prn CONDITION: CRITICAL PROGNOSIS: GRAVE CODE STATUS: FULL CODE The high probability of a clinically significant, sudden or life-threatening deterioration of the [respiratory, cardiovascular & neurologic] system(s) required my full and direct attention, intervention and personal management. The aggregate critical care time was [34] minutes without overlap. Time includes spent on; [x] Data Review and interpretation [x] Patient assessment and monitoring of vital signs [x] Documentation [x] Medication orders and management Subjective Date of service: 02/08/21 Principal diagnosis: Ac hypoxemic resp failure; COVID-19; Pneumonia; Sepsis; Morbid obesity Interval history: Patient is seen today for: Acute hypoxemic respiratory failure; COVID- 19infection; Multifocal pneumonia; Hypernatremia; Sepsis; Morbid obesity Seen and examined at bedside; 24hour events reviewed; nursing and respiratory care staff consulted; no adverse overnight events reported to me; resting in bed; remains on MVS; remains on vasopressors; no gross bleeding reported; remains hypoxemic Objective Vital Signs - 12hr 02/07/21 02/07/21 02/07/21 20:45 21:00 21:15 Pulse Rate 66 66 68 Pulse Rate [ From Monitor] Respiratory 30 H 30 H 30 H Rate Blood Pressure 112/48 110/47 107/46 O2 Sat by Pulse 86 87 86 Oximetry 02/07/21 02/07/21 02/07/21 21:30 21:45 22:00 Pulse Rate 65 66 66 Pulse Rate [ From Monitor] Respiratory 30 H 30 H 30 H Rate Blood Pressure 109/46 109/42 111/46 O2 Sat by Pulse 85 85 85 Oximetry 02/07/21 02/07/21 02/07/21 22:15 22:30 22:45 Pulse Rate 73 72 65 Pulse Rate [ From Monitor] Respiratory 30 H 30 H 30 H Rate Blood Pressure 104/48 108/46 103/51 O2 Sat by Pulse 90 90 86 Oximetry 02/07/21 02/07/21 02/07/21 22:48 23:00 23:02 Pulse Rate 67 69 67 Pulse Rate [ From Monitor] Respiratory 26 H 25 H 29 H Rate Blood Pressure 112/48 111/52 111/52 O2 Sat by Pulse 86 85 86 Oximetry 02/07/21 02/07/21 02/07/21 23:15 23:30 23:45 Pulse Rate 65 65 66 Pulse Rate [ From Monitor] Respiratory 30 H 26 H 30 H Rate Blood Pressure 114/49 109/44 108/42 O2 Sat by Pulse 87 87 87 Oximetry 02/08/21 02/08/21 02/08/21 00:00 00:15 00:30 Pulse Rate 66 67 65 Pulse Rate [ 69 From Monitor] Respiratory 30 H 30 H 29 H Rate Blood Pressure 118/37 121/47 121/46 O2 Sat by Pulse 87 87 86 Oximetry 02/08/21 02/08/21 02/08/21 00:40 00:45 01:00 Pulse Rate 66 66 67 Pulse Rate [ From Monitor] Respiratory 30 H 30 H Rate Blood Pressure 121/47 117/48 114/47 O2 Sat by Pulse 87 86 85 Oximetry 02/08/21 02/08/21 02/08/21 01:15 01:30 01:45 Pulse Rate 64 67 70 Pulse Rate [ From Monitor] Respiratory 30 H 30 H 30 H Rate Blood Pressure 117/44 114/48 104/42 O2 Sat by Pulse 84 86 84 Oximetry 02/08/21 02/08/21 02/08/21 02:00 02:15 02:30 Pulse Rate 68 68 66 Pulse Rate [ From Monitor] Respiratory 30 H 30 H 30 H Rate Blood Pressure 109/48 112/43 117/50 O2 Sat by Pulse 86 86 86 Oximetry 02/08/21 02/08/21 02/08/21 02:45 03:00 03:15 Pulse Rate 68 67 67 Pulse Rate [ From Monitor] Respiratory 30 H 30 H 30 H Rate Blood Pressure 108/45 105/46 102/42 O2 Sat by Pulse 87 88 87 Oximetry 02/08/21 02/08/21 02/08/21 03:30 03:45 04:00 Pulse Rate 66 65 63 Pulse Rate [ 68 From Monitor] Respiratory 30 H 30 H 30 H Rate Blood Pressure 101/40 110/37 113/58 O2 Sat by Pulse 88 86 88 Oximetry 02/08/21 02/08/21 02/08/21 04:15 04:30 04:45 Pulse Rate 67 66 68 Pulse Rate [ From Monitor] Respiratory 31 H 30 H 30 H Rate Blood Pressure 103/48 101/49 104/44 O2 Sat by Pulse 88 88 88 Oximetry 02/08/21 02/08/21 02/08/21 05:00 05:15 05:30 Pulse Rate 67 71 72 Pulse Rate [ From Monitor] Respiratory 30 H 30 H 30 H Rate Blood Pressure 111/52 111/47 119/48 O2 Sat by Pulse 84 85 86 Oximetry 02/08/21 02/08/21 02/08/21 05:45 06:00 06:15 Pulse Rate 73 76 73 Pulse Rate [ From Monitor] Respiratory 30 H 30 H 27 H Rate Blood Pressure 119/49 124/47 116/43 O2 Sat by Pulse 88 86 86 Oximetry 02/08/21 02/08/21 02/08/21 06:30 06:45 07:00 Pulse Rate 70 74 71 Pulse Rate [ From Monitor] Respiratory 30 H 13 13 Rate Blood Pressure 116/43 101/40 101/40 O2 Sat by Pulse 86 87 72 L Oximetry 02/08/21 02/08/21 02/08/21 07:15 07:30 07:45 Pulse Rate 77 75 76 Pulse Rate [ From Monitor] Respiratory 30 H 21 17 Rate Blood Pressure 113/40 102/42 100/43 O2 Sat by Pulse 80 L 83 L 81 L Oximetry 02/08/21 07:49 Pulse Rate 69 Pulse Rate [ From Monitor] Respiratory Rate Blood Pressure 100/43 O2 Sat by Pulse 82 L Oximetry Constitutional: appears uncomfortable, other (middle aged obese male with mildly increased respiratory effort at rest on MVS) Eyes: non-icteric ENT: oropharynx moist, other (ETT 24 cm BRE) Neck: supple, no lymphadenopathy, no JVD, other (large circumference) Effort: mildly labored Ascultation: Bilateral: diminished breath sounds, rhonchi, other (L&R chest tubes in place; + SQ emphysema) Percussion: Bilateral: not dull Cardiovascular: regular rate and rhythm Gastrointestinal: normoactive bowel sounds, soft, non-tender, non-distended (protuberant) Integumentary: normal Extremities: no cyanosis, no edema, pink and warm, pulses normal Neurologic: pupils equal and round, unable to assess (sedated) Psychiatric: other (unable top assess re: AMS) CBC and BMP: 02/06/21 06:40 02/08/21 01:28 ABG, PT/INR, D-dimer: ABG ABG pH 7.228 (7.320-7.450) L 02/08/21 03:30 POC ABG pCO2 55.5 mmHg (32.0-48.0) H 02/08/21 03:30 ABG pCO2 62.3 mm Hg 02/05/21 04:39 POC ABG pO2 49.9 mmHg (83-108) L 02/08/21 03:30 ABG pO2 64.8 mm Hg (80.0-90.0) L 02/05/21 04:39 POC ABG HCO3 22.6 02/08/21 03:30 ABG O2 Saturation 77.6 (0-100) 02/08/21 03:30 PT/INR, D-dimer PT 15.1 Sec. (12.2-14.9) H 02/02/21 Unknown INR 1.13 (0.87-1.13) 02/02/21 Unknown D-Dimer 3359.01 ng/mlDDU (0-234) H 02/05/21 14:32 Abnormal lab findings: Abnormal Labs 01/22/21 01/22/21 01/22/21 11:06 11:06 11:06 WBC RBC Hgb Hct MCHC RDW Plt Count Lymph % (Auto) Lymph # (Auto) [place] # (Auto) Seg Neutrophils % Seg Neuts % (Manual) Lymphocytes % (Manual) Nucleated RBC % Seg Neutrophils # Seg Neutrophils # Man Lymphocytes # (Manual) Monocytes # (Manual) Eosinophils # (Manual) PT INR D-Dimer 2625.11 H Heparin Anti-Xa Level ABG pH POC ABG pCO2 POC ABG pO2 ABG pO2 ABG O2 Saturation ABG Base Excess ABG Hemoglobin ABG Oxyhemoglobin ABG Sodium ABG Potassium ABG Chloride ABG Glucose Oxyhemoglobin Carboxyhemoglobin Sodium Potassium Chloride Carbon Dioxide BUN Creatinine Glucose 130 H POC Glucose Hemoglobin A1c Lactic Acid Calcium Phosphorus Magnesium Ferritin 557.5 H Total Bilirubin Direct Bilirubin AST ALT Alkaline Phosphatase Ammonia Lactate Dehydrogenase 799 H Total Creatine Kinase C-Reactive Protein 3.30 H Total Protein Albumin Osfcp-6-Ffvwyrfdc Sgxdi-8-Erppwjlik Beta Globulins Abnorm Protein Band 1 PEP Interpretation Triglycerides TSH Thyroxine (T4) Free T3 Index Arterial Blood Glucose Arterial Blood Ionized Calcium Immunofix Electrophor Coronavirus (PCR) Miscellaneous Test 01/22/21 01/22/21 01/22/21 11:06 11:06 11:06 WBC 19.2 H RBC 5.63 H Hgb 15.8 H Hct 49.0 H MCHC RDW Plt Count Lymph % (Auto) Lymph # (Auto) [place] # (Auto) Seg Neutrophils % Seg Neuts % (Manual) 92.0 H Lymphocytes % (Manual) 1.0 L Nucleated RBC % 1.0 H Seg Neutrophils # Seg Neutrophils # Man 17.7 H Lymphocytes # (Manual) 0.2 L Monocytes # (Manual) 1.0 H Eosinophils # (Manual) PT INR D-Dimer Heparin Anti-Xa Level ABG pH POC ABG pCO2 POC ABG pO2 ABG pO2 ABG O2 Saturation ABG Base Excess ABG Hemoglobin ABG Oxyhemoglobin ABG Sodium ABG Potassium ABG Chloride ABG Glucose Oxyhemoglobin Carboxyhemoglobin Sodium Potassium 3.3 L Chloride Carbon Dioxide 20 L BUN 32 H Creatinine Glucose 130 H POC Glucose Hemoglobin A1c Lactic Acid 4.20 H* Calcium Phosphorus Magnesium Ferritin Total Bilirubin Direct Bilirubin AST ALT Alkaline Phosphatase Ammonia Lactate Dehydrogenase Total Creatine Kinase C-Reactive Protein Total Protein Albumin 2.9 L Jzemx-4-Sryuwtcpf Dxpjn-1-Hjyhrbqjj Beta Globulins Abnorm Protein Band 1 PEP Interpretation Triglycerides TSH Thyroxine (T4) Free T3 Index Arterial Blood Glucose Arterial Blood Ionized Calcium Immunofix Electrophor Coronavirus (PCR) Miscellaneous Test 01/22/21 01/22/21 01/23/21 11:06 12:03 05:29 WBC 19.0 H RBC 5.24 H Hgb 15.3 H Hct 46.0 H MCHC RDW Plt Count Lymph % (Auto) 4.4 L Lymph # (Auto) 0.8 L [place] # (Auto) 1.2 H Seg Neutrophils % 89.1 H Seg Neuts % (Manual) Lymphocytes % (Manual) Nucleated RBC % Seg Neutrophils # 16.9 H Seg Neutrophils # Man Lymphocytes # (Manual) Monocytes # (Manual) Eosinophils # (Manual) PT INR D-Dimer Heparin Anti-Xa Level ABG pH POC ABG pCO2 30.7 L POC ABG pO2 61.4 L ABG pO2 ABG O2 Saturation ABG Base Excess ABG Hemoglobin ABG Oxyhemoglobin 90.5 L ABG Sodium ABG Potassium ABG Chloride ABG Glucose Oxyhemoglobin Carboxyhemoglobin 1.7 H Sodium Potassium Chloride Carbon Dioxide BUN Creatinine Glucose POC Glucose Hemoglobin A1c 6.2 H Lactic Acid Calcium Phosphorus Magnesium Ferritin Total Bilirubin Direct Bilirubin AST ALT Alkaline Phosphatase Ammonia Lactate Dehydrogenase Total Creatine Kinase C-Reactive Protein Total Protein Albumin Tnsfl-9-Qsgbzeakn Bloqy-9-Yijqchtfz Beta Globulins Abnorm Protein Band 1 PEP Interpretation Triglycerides TSH Thyroxine (T4) Free T3 Index Arterial Blood Glucose Arterial Blood Ionized Calcium Immunofix Electrophor Coronavirus (PCR) Miscellaneous Test 01/23/21 01/23/21 01/23/21 05:29 09:00 16:55 WBC RBC Hgb Hct MCHC RDW Plt Count Lymph % (Auto) Lymph # (Auto) [place] # (Auto) Seg Neutrophils % Seg Neuts % (Manual) Lymphocytes % (Manual) Nucleated RBC % Seg Neutrophils # Seg Neutrophils # Man Lymphocytes # (Manual) Monocytes # (Manual) Eosinophils # (Manual) PT INR D-Dimer Heparin Anti-Xa Level ABG pH POC ABG pCO2 POC ABG pO2 ABG pO2 ABG O2 Saturation ABG Base Excess ABG Hemoglobin ABG Oxyhemoglobin ABG Sodium ABG Potassium ABG Chloride ABG Glucose Oxyhemoglobin Carboxyhemoglobin Sodium Potassium 3.5 L Chloride Carbon Dioxide BUN 29 H 27 H Creatinine Glucose 132 H 103 H POC Glucose Hemoglobin A1c Lactic Acid Calcium Phosphorus Magnesium Ferritin Total Bilirubin Direct Bilirubin AST ALT Alkaline Phosphatase Ammonia Lactate Dehydrogenase Total Creatine Kinase C-Reactive Protein Total Protein Albumin 2.9 L 2.9 L Koiuj-6-Oubapdxtl Tvumz-4-Iosmpxjko Beta Globulins Abnorm Protein Band 1 PEP Interpretation Triglycerides TSH Thyroxine (T4) Free T3 Index Arterial Blood Glucose Arterial Blood Ionized Calcium Immunofix Electrophor Coronavirus (PCR) Positive A Miscellaneous Test 01/24/21 01/24/21 01/24/21 05:50 20:20 20:20 WBC RBC Hgb Hct MCHC RDW Plt Count Lymph % (Auto) Lymph # (Auto) [place] # (Auto) Seg Neutrophils % Seg Neuts % (Manual) Lymphocytes % (Manual) Nucleated RBC % Seg Neutrophils # Seg Neutrophils # Man Lymphocytes # (Manual) Monocytes # (Manual) Eosinophils # (Manual) PT INR D-Dimer Heparin Anti-Xa Level ABG pH POC ABG pCO2 POC ABG pO2 ABG pO2 ABG O2 Saturation ABG Base Excess ABG Hemoglobin ABG Oxyhemoglobin ABG Sodium ABG Potassium ABG Chloride ABG Glucose Oxyhemoglobin Carboxyhemoglobin Sodium 148 H Potassium 5.3 H D Chloride 109.3 H Carbon Dioxide BUN 26 H Creatinine 0.7 L Glucose 130 H POC Glucose Hemoglobin A1c Lactic Acid Calcium Phosphorus Magnesium Ferritin 1031.0 H Total Bilirubin Direct Bilirubin AST 45 H ALT Alkaline Phosphatase Ammonia Lactate Dehydrogenase 1511 H Total Creatine Kinase C-Reactive Protein 12.00 H Total Protein Albumin 2.9 L Ruvyj-2-Yxccjshus Hpqwj-7-Ifmshtzye Beta Globulins Abnorm Protein Band 1 PEP Interpretation Triglycerides TSH Thyroxine (T4) Free T3 Index Arterial Blood Glucose Arterial Blood Ionized Calcium Immunofix Electrophor Coronavirus (PCR) Miscellaneous Test 01/24/21 01/25/21 01/25/21 20:20 06:22 06:22 WBC RBC Hgb Hct MCHC RDW Plt Count Lymph % (Auto) Lymph # (Auto) [place] # (Auto) Seg Neutrophils % Seg Neuts % (Manual) Lymphocytes % (Manual) Nucleated RBC % Seg Neutrophils # Seg Neutrophils # Man Lymphocytes # (Manual) Monocytes # (Manual) Eosinophils # (Manual) PT INR D-Dimer > 44909 H > 73410 H Heparin Anti-Xa Level ABG pH POC ABG pCO2 POC ABG pO2 ABG pO2 ABG O2 Saturation ABG Base Excess ABG Hemoglobin ABG Oxyhemoglobin ABG Sodium ABG Potassium ABG Chloride ABG Glucose Oxyhemoglobin Carboxyhemoglobin Sodium 153 H Potassium 3.4 L D Chloride 116.1 H Carbon Dioxide 21 L BUN 27 H Creatinine Glucose 133 H POC Glucose Hemoglobin A1c Lactic Acid Calcium Phosphorus Magnesium Ferritin Total Bilirubin 1.30 H Direct Bilirubin AST 50 H ALT Alkaline Phosphatase 159 H Ammonia Lactate Dehydrogenase Total Creatine Kinase C-Reactive Protein Total Protein Albumin 2.9 L Zlkyo-3-Hclvpcsmb Hzusi-7-Oyogmskzd Beta Globulins Abnorm Protein Band 1 PEP Interpretation Triglycerides TSH Thyroxine (T4) Free T3 Index Arterial Blood Glucose Arterial Blood Ionized Calcium Immunofix Electrophor Coronavirus (PCR) Miscellaneous Test 01/25/21 01/25/21 01/25/21 06:22 09:35 11:25 WBC RBC Hgb Hct MCHC RDW Plt Count Lymph % (Auto) Lymph # (Auto) [place] # (Auto) Seg Neutrophils % Seg Neuts % (Manual) Lymphocytes % (Manual) Nucleated RBC % Seg Neutrophils # Seg Neutrophils # Man Lymphocytes # (Manual) Monocytes # (Manual) Eosinophils # (Manual) PT INR D-Dimer Heparin Anti-Xa Level ABG pH 7.453 H 7.228 L POC ABG pCO2 60.0 H POC ABG pO2 44.9 L 111.7 H ABG pO2 ABG O2 Saturation ABG Base Excess ABG Hemoglobin ABG Oxyhemoglobin 81.4 L ABG Sodium 153.1 H 150.9 H ABG Potassium 3.3 L ABG Chloride 116.0 H 117.0 H ABG Glucose 151 H 155 H Oxyhemoglobin Carboxyhemoglobin Sodium Potassium Chloride Carbon Dioxide BUN Creatinine Glucose POC Glucose Hemoglobin A1c Lactic Acid Calcium Phosphorus Magnesium Ferritin Total Bilirubin Direct Bilirubin AST ALT Alkaline Phosphatase Ammonia Lactate Dehydrogenase Total Creatine Kinase C-Reactive Protein 16.80 H Total Protein Albumin Gbetl-8-Qlqfqgkeo Ibopk-4-Qdfoftget Beta Globulins Abnorm Protein Band 1 PEP Interpretation Triglycerides TSH Thyroxine (T4) Free T3 Index Arterial Blood Glucose 151 H 155 H Arterial Blood Ionized Calcium Immunofix Electrophor Coronavirus (PCR) Miscellaneous Test 01/25/21 01/26/21 01/26/21 21:00 07:32 07:39 WBC RBC Hgb Hct MCHC RDW Plt Count Lymph % (Auto) Lymph # (Auto) [place] # (Auto) Seg Neutrophils % Seg Neuts % (Manual) Lymphocytes % (Manual) Nucleated RBC % Seg Neutrophils # Seg Neutrophils # Man Lymphocytes # (Manual) Monocytes # (Manual) Eosinophils # (Manual) PT INR D-Dimer Heparin Anti-Xa Level ABG pH POC ABG pCO2 POC ABG pO2 68.5 L ABG pO2 ABG O2 Saturation ABG Base Excess ABG Hemoglobin ABG Oxyhemoglobin 91.3 L ABG Sodium 151.9 H ABG Potassium ABG Chloride 117.0 H ABG Glucose 140 H Oxyhemoglobin Carboxyhemoglobin Sodium 151 H Potassium Chloride 116.7 H Carbon Dioxide 20 L BUN 59 H Creatinine 3.4 H D Glucose 121 H POC Glucose Hemoglobin A1c Lactic Acid Calcium Phosphorus Magnesium Ferritin 1921.0 H Total Bilirubin Direct Bilirubin AST 45 H ALT Alkaline Phosphatase 137 H Ammonia Lactate Dehydrogenase 1559 H Total Creatine Kinase C-Reactive Protein 20.90 H Total Protein Albumin 2.3 L Zlkgq-2-Ootyxtvnj Ybijn-2-Izbadarbg Beta Globulins Abnorm Protein Band 1 PEP Interpretation Triglycerides TSH Thyroxine (T4) Free T3 Index Arterial Blood Glucose 140 H Arterial Blood Ionized Calcium Immunofix Electrophor Coronavirus (PCR) Miscellaneous Test 01/26/21 01/26/21 01/26/21 08:30 17:55 20:39 WBC RBC Hgb Hct MCHC RDW Plt Count Lymph % (Auto) Lymph # (Auto) [place] # (Auto) Seg Neutrophils % Seg Neuts % (Manual) Lymphocytes % (Manual) Nucleated RBC % Seg Neutrophils # Seg Neutrophils # Man Lymphocytes # (Manual) Monocytes # (Manual) Eosinophils # (Manual) PT INR D-Dimer Heparin Anti-Xa Level ABG pH 7.287 L POC ABG pCO2 POC ABG pO2 ABG pO2 124.5 H ABG O2 Saturation ABG Base Excess -5.0 L ABG Hemoglobin ABG Oxyhemoglobin ABG Sodium ABG Potassium ABG Chloride ABG Glucose Oxyhemoglobin Carboxyhemoglobin Sodium 152 H Potassium 6.0 H D Chloride 117.2 H Carbon Dioxide 15 L BUN 80 H Creatinine 5.6 H D Glucose 156 H POC Glucose 141 H Hemoglobin A1c Lactic Acid Calcium 7.4 L Phosphorus Magnesium Ferritin Total Bilirubin Direct Bilirubin AST ALT Alkaline Phosphatase Ammonia Lactate Dehydrogenase Total Creatine Kinase C-Reactive Protein Total Protein Albumin Gqxwc-0-Ktojmozlw Urzov-4-Tzeixznvg Beta Globulins Abnorm Protein Band 1 PEP Interpretation Triglycerides TSH Thyroxine (T4) Free T3 Index Arterial Blood Glucose Arterial Blood Ionized Calcium Immunofix Electrophor Coronavirus (PCR) Miscellaneous Test 01/26/21 01/27/21 01/27/21 23:14 02:55 05:00 WBC RBC Hgb Hct MCHC RDW Plt Count Lymph % (Auto) Lymph # (Auto) [place] # (Auto) Seg Neutrophils % Seg Neuts % (Manual) Lymphocytes % (Manual) Nucleated RBC % Seg Neutrophils # Seg Neutrophils # Man Lymphocytes # (Manual) Monocytes # (Manual) Eosinophils # (Manual) PT INR D-Dimer Heparin Anti-Xa Level ABG pH 7.215 L POC ABG pCO2 48.9 H POC ABG pO2 143.3 H ABG pO2 ABG O2 Saturation ABG Base Excess ABG Hemoglobin ABG Oxyhemoglobin ABG Sodium 150.0 H ABG Potassium 5.0 H ABG Chloride 118.0 H ABG Glucose 180 H Oxyhemoglobin Carboxyhemoglobin Sodium 154 H Potassium 5.3 H Chloride 117.2 H Carbon Dioxide 19 L BUN 92 H Creatinine 6.4 H Glucose 175 H POC Glucose 148 H Hemoglobin A1c Lactic Acid Calcium 7.9 L Phosphorus Magnesium Ferritin Total Bilirubin Direct Bilirubin AST ALT Alkaline Phosphatase Ammonia Lactate Dehydrogenase Total Creatine Kinase C-Reactive Protein Total Protein Albumin Onzmj-5-Ivwzrjfdl Aoeqj-9-Ylnrtzoja Beta Globulins Abnorm Protein Band 1 PEP Interpretation Triglycerides TSH Thyroxine (T4) Free T3 Index Arterial Blood Glucose 180 H Arterial Blood Ionized Calcium 4.5 L Immunofix Electrophor Coronavirus (PCR) Miscellaneous Test 01/27/21 01/27/21 01/27/21 05:00 05:14 11:42 WBC RBC Hgb Hct MCHC RDW Plt Count Lymph % (Auto) Lymph # (Auto) [place] # (Auto) Seg Neutrophils % Seg Neuts % (Manual) Lymphocytes % (Manual) Nucleated RBC % Seg Neutrophils # Seg Neutrophils # Man Lymphocytes # (Manual) Monocytes # (Manual) Eosinophils # (Manual) PT INR D-Dimer Heparin Anti-Xa Level ABG pH POC ABG pCO2 POC ABG pO2 ABG pO2 ABG O2 Saturation ABG Base Excess ABG Hemoglobin ABG Oxyhemoglobin ABG Sodium ABG Potassium ABG Chloride ABG Glucose Oxyhemoglobin Carboxyhemoglobin Sodium Potassium Chloride Carbon Dioxide BUN Creatinine Glucose POC Glucose 159 H 171 H Hemoglobin A1c Lactic Acid Calcium Phosphorus Magnesium Ferritin Total Bilirubin Direct Bilirubin AST ALT Alkaline Phosphatase Ammonia Lactate Dehydrogenase Total Creatine Kinase 258 H C-Reactive Protein Total Protein Albumin Bwktq-8-Ntvzgqrpi Xtodx-7-Lzhnqfhui Beta Globulins Abnorm Protein Band 1 PEP Interpretation Triglycerides TSH Thyroxine (T4) Free T3 Index Arterial Blood Glucose Arterial Blood Ionized Calcium Immunofix Electrophor Coronavirus (PCR) Miscellaneous Test 01/27/21 01/27/21 01/27/21 11:55 11:55 18:00 WBC RBC Hgb Hct MCHC RDW Plt Count Lymph % (Auto) Lymph # (Auto) [place] # (Auto) Seg Neutrophils % Seg Neuts % (Manual) Lymphocytes % (Manual) Nucleated RBC % Seg Neutrophils # Seg Neutrophils # Man Lymphocytes # (Manual) Monocytes # (Manual) Eosinophils # (Manual) PT INR D-Dimer Heparin Anti-Xa Level ABG pH POC ABG pCO2 POC ABG pO2 ABG pO2 ABG O2 Saturation ABG Base Excess ABG Hemoglobin ABG Oxyhemoglobin ABG Sodium ABG Potassium ABG Chloride ABG Glucose Oxyhemoglobin Carboxyhemoglobin Sodium Potassium Chloride Carbon Dioxide BUN Creatinine Glucose POC Glucose 185 H Hemoglobin A1c Lactic Acid Calcium Phosphorus Magnesium Ferritin Total Bilirubin Direct Bilirubin AST ALT Alkaline Phosphatase Ammonia Lactate Dehydrogenase Total Creatine Kinase C-Reactive Protein Total Protein Albumin 2.5 L Voqhy-4-Tzariwsea 0.7 H Maizb-8-Spybiluoh 1.2 H Beta Globulins 0.7 H Abnorm Protein Band 1 0.5 H PEP Interpretation see below H Triglycerides TSH Thyroxine (T4) Free T3 Index Arterial Blood Glucose Arterial Blood Ionized Calcium Immunofix Electrophor see below H Coronavirus (PCR) Miscellaneous Test 01/28/21 01/28/21 01/28/21 04:00 04:00 10:03 WBC RBC Hgb Hct MCHC RDW Plt Count 104 L Lymph % (Auto) Lymph # (Auto) [place] # (Auto) Seg Neutrophils % Seg Neuts % (Manual) Lymphocytes % (Manual) Nucleated RBC % Seg Neutrophils # Seg Neutrophils # Man Lymphocytes # (Manual) Monocytes # (Manual) Eosinophils # (Manual) PT INR D-Dimer Heparin Anti-Xa Level ABG pH 7.272 L POC ABG pCO2 48.4 H POC ABG pO2 ABG pO2 ABG O2 Saturation ABG Base Excess ABG Hemoglobin ABG Oxyhemoglobin ABG Sodium ABG Potassium ABG Chloride ABG Glucose 174 H Oxyhemoglobin Carboxyhemoglobin Sodium Potassium Chloride Carbon Dioxide BUN Creatinine Glucose POC Glucose Hemoglobin A1c Lactic Acid Calcium Phosphorus Magnesium Ferritin Total Bilirubin Direct Bilirubin AST ALT Alkaline Phosphatase Ammonia Lactate Dehydrogenase Total Creatine Kinase C-Reactive Protein Total Protein Albumin Yjlky-7-Qbsoarktb Fhxtq-1-Ydwplmdpd Beta Globulins Abnorm Protein Band 1 PEP Interpretation Triglycerides 369 H TSH Thyroxine (T4) Free T3 Index Arterial Blood Glucose 174 H Arterial Blood Ionized Calcium 4.3 L Immunofix Electrophor Coronavirus (PCR) Miscellaneous Test 01/28/21 01/28/21 01/28/21 10:03 10:03 10:03 WBC RBC Hgb Hct MCHC RDW Plt Count Lymph % (Auto) Lymph # (Auto) [place] # (Auto) Seg Neutrophils % Seg Neuts % (Manual) Lymphocytes % (Manual) Nucleated RBC % Seg Neutrophils # Seg Neutrophils # Man Lymphocytes # (Manual) Monocytes # (Manual) Eosinophils # (Manual) PT 17.3 H INR 1.36 H D-Dimer Heparin Anti-Xa Level ABG pH POC ABG pCO2 POC ABG pO2 ABG pO2 ABG O2 Saturation ABG Base Excess ABG Hemoglobin ABG Oxyhemoglobin ABG Sodium ABG Potassium ABG Chloride ABG Glucose Oxyhemoglobin Carboxyhemoglobin Sodium Potassium 5.2 H Chloride Carbon Dioxide BUN 69 H Creatinine 5.6 H Glucose 220 H POC Glucose Hemoglobin A1c Lactic Acid Calcium 7.7 L Phosphorus Magnesium Ferritin Total Bilirubin Direct Bilirubin AST ALT Alkaline Phosphatase Ammonia Lactate Dehydrogenase Total Creatine Kinase C-Reactive Protein Total Protein Albumin Ttohw-8-Agrgtbmzt Yycey-6-Szawuwfvq Beta Globulins Abnorm Protein Band 1 PEP Interpretation Triglycerides TSH 0.013 L Thyroxine (T4) Free T3 Index Arterial Blood Glucose Arterial Blood Ionized Calcium Immunofix Electrophor Coronavirus (PCR) Miscellaneous Test 01/28/21 01/28/21 01/28/21 11:34 13:40 15:31 WBC RBC Hgb Hct MCHC RDW Plt Count Lymph % (Auto) Lymph # (Auto) [place] # (Auto) Seg Neutrophils % Seg Neuts % (Manual) Lymphocytes % (Manual) Nucleated RBC % Seg Neutrophils # Seg Neutrophils # Man Lymphocytes # (Manual) Monocytes # (Manual) Eosinophils # (Manual) PT INR D-Dimer Heparin Anti-Xa Level 1.21 H ABG pH POC ABG pCO2 POC ABG pO2 ABG pO2 ABG O2 Saturation ABG Base Excess ABG Hemoglobin ABG Oxyhemoglobin ABG Sodium ABG Potassium ABG Chloride ABG Glucose Oxyhemoglobin Carboxyhemoglobin Sodium Potassium Chloride Carbon Dioxide BUN Creatinine Glucose POC Glucose 221 H Hemoglobin A1c Lactic Acid Calcium Phosphorus Magnesium 2.50 H Ferritin Total Bilirubin Direct Bilirubin AST ALT Alkaline Phosphatase Ammonia Lactate Dehydrogenase Total Creatine Kinase C-Reactive Protein Total Protein Albumin Dcxaq-1-Rcbrpvsos Vjlmg-9-Xpuizwwcp Beta Globulins Abnorm Protein Band 1 PEP Interpretation Triglycerides TSH Thyroxine (T4) Free T3 Index Arterial Blood Glucose Arterial Blood Ionized Calcium Immunofix Electrophor Coronavirus (PCR) Miscellaneous Test 01/28/21 01/29/21 01/29/21 18:02 04:00 04:30 WBC RBC Hgb Hct MCHC RDW Plt Count Lymph % (Auto) Lymph # (Auto) [place] # (Auto) Seg Neutrophils % Seg Neuts % (Manual) Lymphocytes % (Manual) Nucleated RBC % Seg Neutrophils # Seg Neutrophils # Man Lymphocytes # (Manual) Monocytes # (Manual) Eosinophils # (Manual) PT INR D-Dimer Heparin Anti-Xa Level 0.81 H ABG pH 7.229 L POC ABG pCO2 48.8 H POC ABG pO2 ABG pO2 ABG O2 Saturation ABG Base Excess ABG Hemoglobin ABG Oxyhemoglobin ABG Sodium 135.3 L ABG Potassium 5.2 H ABG Chloride ABG Glucose 264 H Oxyhemoglobin Carboxyhemoglobin Sodium Potassium Chloride Carbon Dioxide BUN Creatinine Glucose POC Glucose 215 H Hemoglobin A1c Lactic Acid Calcium Phosphorus Magnesium Ferritin Total Bilirubin Direct Bilirubin AST ALT Alkaline Phosphatase Ammonia Lactate Dehydrogenase Total Creatine Kinase C-Reactive Protein Total Protein Albumin Acvbd-2-Khtujznhe Uvaof-3-Vfrfcsysy Beta Globulins Abnorm Protein Band 1 PEP Interpretation Triglycerides TSH Thyroxine (T4) Free T3 Index Arterial Blood Glucose 264 H Arterial Blood Ionized Calcium 4.0 L Immunofix Electrophor Coronavirus (PCR) Miscellaneous Test 01/29/21 01/29/21 01/29/21 13:23 17:56 23:12 WBC RBC Hgb Hct MCHC RDW Plt Count Lymph % (Auto) Lymph # (Auto) [place] # (Auto) Seg Neutrophils % Seg Neuts % (Manual) Lymphocytes % (Manual) Nucleated RBC % Seg Neutrophils # Seg Neutrophils # Man Lymphocytes # (Manual) Monocytes # (Manual) Eosinophils # (Manual) PT INR D-Dimer Heparin Anti-Xa Level ABG pH POC ABG pCO2 POC ABG pO2 ABG pO2 ABG O2 Saturation ABG Base Excess ABG Hemoglobin ABG Oxyhemoglobin ABG Sodium ABG Potassium ABG Chloride ABG Glucose Oxyhemoglobin Carboxyhemoglobin Sodium Potassium Chloride Carbon Dioxide BUN Creatinine Glucose POC Glucose 198 H 200 H 172 H Hemoglobin A1c Lactic Acid Calcium Phosphorus Magnesium Ferritin Total Bilirubin Direct Bilirubin AST ALT Alkaline Phosphatase Ammonia Lactate Dehydrogenase Total Creatine Kinase C-Reactive Protein Total Protein Albumin Edfrv-7-Lfrtlmgum Nwfym-9-Kyeslasgc Beta Globulins Abnorm Protein Band 1 PEP Interpretation Triglycerides TSH Thyroxine (T4) Free T3 Index Arterial Blood Glucose Arterial Blood Ionized Calcium Immunofix Electrophor Coronavirus (PCR) Miscellaneous Test 01/29/21 01/29/21 01/30/21 Unknown Unknown 04:00 WBC RBC Hgb Hct MCHC RDW Plt Count Lymph % (Auto) Lymph # (Auto) [place] # (Auto) Seg Neutrophils % Seg Neuts % (Manual) Lymphocytes % (Manual) Nucleated RBC % Seg Neutrophils # Seg Neutrophils # Man Lymphocytes # (Manual) Monocytes # (Manual) Eosinophils # (Manual) PT INR D-Dimer Heparin Anti-Xa Level 0.85 H ABG pH 7.304 L POC ABG pCO2 POC ABG pO2 112.8 H ABG pO2 ABG O2 Saturation ABG Base Excess ABG Hemoglobin ABG Oxyhemoglobin ABG Sodium ABG Potassium 5.2 H ABG Chloride ABG Glucose 160 H Oxyhemoglobin Carboxyhemoglobin Sodium Potassium Chloride Carbon Dioxide BUN Creatinine Glucose POC Glucose Hemoglobin A1c Lactic Acid Calcium Phosphorus Magnesium Ferritin Total Bilirubin Direct Bilirubin AST ALT Alkaline Phosphatase Ammonia Lactate Dehydrogenase Total Creatine Kinase C-Reactive Protein Total Protein Albumin Jdzsd-0-Rqvwasxxb Mefbj-3-Ishnnmaqq Beta Globulins Abnorm Protein Band 1 PEP Interpretation Triglycerides TSH Thyroxine (T4) Free T3 Index Arterial Blood Glucose 160 H Arterial Blood Ionized Calcium 4.1 L Immunofix Electrophor Coronavirus (PCR) Miscellaneous Test Flexitest 1 H 01/30/21 01/30/21 01/30/21 04:05 05:00 05:00 WBC 27.4 H RBC Hgb 11.6 L Hct 34.8 L MCHC RDW Plt Count 126 L Lymph % (Auto) Lymph # (Auto) [place] # (Auto) Seg Neutrophils % Seg Neuts % (Manual) Lymphocytes % (Manual) Nucleated RBC % Seg Neutrophils # Seg Neutrophils # Man Lymphocytes # (Manual) Monocytes # (Manual) Eosinophils # (Manual) PT INR D-Dimer Heparin Anti-Xa Level ABG pH 7.288 L POC ABG pCO2 49.7 H POC ABG pO2 169.7 H ABG pO2 ABG O2 Saturation ABG Base Excess ABG Hemoglobin ABG Oxyhemoglobin 98.4 H ABG Sodium 132.5 L ABG Potassium 4.8 H ABG Chloride ABG Glucose 196 H Oxyhemoglobin Carboxyhemoglobin Sodium 136 L Potassium Chloride 97.4 L Carbon Dioxide BUN 75 H Creatinine 5.4 H Glucose 184 H POC Glucose Hemoglobin A1c Lactic Acid Calcium 7.4 L Phosphorus 8.60 H Magnesium 2.40 H Ferritin Total Bilirubin Direct Bilirubin AST ALT Alkaline Phosphatase Ammonia Lactate Dehydrogenase Total Creatine Kinase C-Reactive Protein Total Protein Albumin Uquqc-7-Oifubfqbi Flclb-4-Kdkdfmppr Beta Globulins Abnorm Protein Band 1 PEP Interpretation Triglycerides TSH Thyroxine (T4) Free T3 Index Arterial Blood Glucose 196 H Arterial Blood Ionized Calcium 4.0 L Immunofix Electrophor Coronavirus (PCR) Miscellaneous Test 01/30/21 01/30/21 01/30/21 05:32 11:23 15:35 WBC RBC Hgb Hct MCHC RDW Plt Count Lymph % (Auto) Lymph # (Auto) [place] # (Auto) Seg Neutrophils % Seg Neuts % (Manual) Lymphocytes % (Manual) Nucleated RBC % Seg Neutrophils # Seg Neutrophils # Man Lymphocytes # (Manual) Monocytes # (Manual) Eosinophils # (Manual) PT INR D-Dimer Heparin Anti-Xa Level ABG pH POC ABG pCO2 POC ABG pO2 ABG pO2 ABG O2 Saturation ABG Base Excess ABG Hemoglobin ABG Oxyhemoglobin ABG Sodium ABG Potassium ABG Chloride ABG Glucose Oxyhemoglobin Carboxyhemoglobin Sodium Potassium Chloride Carbon Dioxide BUN Creatinine Glucose POC Glucose 169 H 177 H Hemoglobin A1c Lactic Acid Calcium Phosphorus Magnesium Ferritin Total Bilirubin Direct Bilirubin AST ALT Alkaline Phosphatase Ammonia Lactate Dehydrogenase Total Creatine Kinase C-Reactive Protein Total Protein Albumin Wyyao-8-Nhegosuxx Wrckg-3-Imrlyltig Beta Globulins Abnorm Protein Band 1 PEP Interpretation Triglycerides TSH Thyroxine (T4) 3.3 L Free T3 Index Arterial Blood Glucose Arterial Blood Ionized Calcium Immunofix Electrophor Coronavirus (PCR) Miscellaneous Test 01/30/21 01/30/21 01/30/21 15:35 18:13 23:49 WBC RBC Hgb Hct MCHC RDW Plt Count Lymph % (Auto) Lymph # (Auto) [place] # (Auto) Seg Neutrophils % Seg Neuts % (Manual) Lymphocytes % (Manual) Nucleated RBC % Seg Neutrophils # Seg Neutrophils # Man Lymphocytes # (Manual) Monocytes # (Manual) Eosinophils # (Manual) PT INR D-Dimer Heparin Anti-Xa Level ABG pH POC ABG pCO2 POC ABG pO2 ABG pO2 ABG O2 Saturation ABG Base Excess ABG Hemoglobin ABG Oxyhemoglobin ABG Sodium ABG Potassium ABG Chloride ABG Glucose Oxyhemoglobin Carboxyhemoglobin Sodium Potassium Chloride Carbon Dioxide BUN Creatinine Glucose POC Glucose 123 H 143 H Hemoglobin A1c Lactic Acid Calcium Phosphorus Magnesium Ferritin Total Bilirubin Direct Bilirubin AST ALT Alkaline Phosphatase Ammonia Lactate Dehydrogenase Total Creatine Kinase C-Reactive Protein Total Protein Albumin Vnzlt-6-Yjbzrwtow Qvlbm-7-Byeyauasj Beta Globulins Abnorm Protein Band 1 PEP Interpretation Triglycerides TSH Thyroxine (T4) Free T3 Index 1.1 L Arterial Blood Glucose Arterial Blood Ionized Calcium Immunofix Electrophor Coronavirus (PCR) Miscellaneous Test 01/31/21 01/31/21 01/31/21 03:30 03:30 03:30 WBC 31.3 H RBC Hgb 11.4 L Hct 34.6 L MCHC RDW Plt Count Lymph % (Auto) Lymph # (Auto) [place] # (Auto) Seg Neutrophils % Seg Neuts % (Manual) Lymphocytes % (Manual) Nucleated RBC % Seg Neutrophils # Seg Neutrophils # Man Lymphocytes # (Manual) Monocytes # (Manual) Eosinophils # (Manual) PT INR D-Dimer Heparin Anti-Xa Level ABG pH POC ABG pCO2 POC ABG pO2 ABG pO2 ABG O2 Saturation ABG Base Excess ABG Hemoglobin ABG Oxyhemoglobin ABG Sodium ABG Potassium ABG Chloride ABG Glucose Oxyhemoglobin Carboxyhemoglobin Sodium Potassium 5.3 H Chloride Carbon Dioxide BUN 111 H Creatinine 6.8 H Glucose 143 H POC Glucose Hemoglobin A1c Lactic Acid Calcium 7.3 L Phosphorus Magnesium Ferritin Total Bilirubin 1.70 H 1.60 H Direct Bilirubin 1.6 H AST 57 H 57 H ALT Alkaline Phosphatase Ammonia Lactate Dehydrogenase Total Creatine Kinase C-Reactive Protein Total Protein 5.5 L D 5.5 L Albumin 2.5 L 2.5 L Ciubz-3-Qrtxsvsuj Onxzy-9-Ggvpejtqs Beta Globulins Abnorm Protein Band 1 PEP Interpretation Triglycerides TSH Thyroxine (T4) Free T3 Index Arterial Blood Glucose Arterial Blood Ionized Calcium Immunofix Electrophor Coronavirus (PCR) Miscellaneous Test 01/31/21 01/31/21 01/31/21 04:54 12:00 17:19 WBC RBC Hgb Hct MCHC RDW Plt Count Lymph % (Auto) Lymph # (Auto) [place] # (Auto) Seg Neutrophils % Seg Neuts % (Manual) Lymphocytes % (Manual) Nucleated RBC % Seg Neutrophils # Seg Neutrophils # Man Lymphocytes # (Manual) Monocytes # (Manual) Eosinophils # (Manual) PT INR D-Dimer Heparin Anti-Xa Level ABG pH POC ABG pCO2 POC ABG pO2 ABG pO2 ABG O2 Saturation ABG Base Excess ABG Hemoglobin ABG Oxyhemoglobin ABG Sodium ABG Potassium ABG Chloride ABG Glucose Oxyhemoglobin Carboxyhemoglobin Sodium Potassium Chloride Carbon Dioxide BUN Creatinine Glucose POC Glucose 133 H 152 H 142 H Hemoglobin A1c Lactic Acid Calcium Phosphorus Magnesium Ferritin Total Bilirubin Direct Bilirubin AST ALT Alkaline Phosphatase Ammonia Lactate Dehydrogenase Total Creatine Kinase C-Reactive Protein Total Protein Albumin Hbjgo-1-Xepwnjhim Jngfq-8-Babqngfbm Beta Globulins Abnorm Protein Band 1 PEP Interpretation Triglycerides TSH Thyroxine (T4) Free T3 Index Arterial Blood Glucose Arterial Blood Ionized Calcium Immunofix Electrophor Coronavirus (PCR) Miscellaneous Test 01/31/21 02/01/21 02/01/21 23:46 00:25 03:10 WBC RBC Hgb Hct MCHC RDW Plt Count Lymph % (Auto) Lymph # (Auto) [place] # (Auto) Seg Neutrophils % Seg Neuts % (Manual) Lymphocytes % (Manual) Nucleated RBC % Seg Neutrophils # Seg Neutrophils # Man Lymphocytes # (Manual) Monocytes # (Manual) Eosinophils # (Manual) PT INR D-Dimer Heparin Anti-Xa Level 0.19 L ABG pH 7.294 L POC ABG pCO2 50.8 H POC ABG pO2 77.2 L ABG pO2 ABG O2 Saturation ABG Base Excess ABG Hemoglobin ABG Oxyhemoglobin 92.9 L ABG Sodium 131.4 L ABG Potassium 5.2 H ABG Chloride 97.0 L ABG Glucose 158 H Oxyhemoglobin Carboxyhemoglobin Sodium Potassium Chloride Carbon Dioxide BUN Creatinine Glucose POC Glucose 140 H Hemoglobin A1c Lactic Acid Calcium Phosphorus Magnesium Ferritin Total Bilirubin Direct Bilirubin AST ALT Alkaline Phosphatase Ammonia Lactate Dehydrogenase Total Creatine Kinase C-Reactive Protein Total Protein Albumin Rzpeh-4-Yccthtsfu Ofztz-1-Pcdgdurtz Beta Globulins Abnorm Protein Band 1 PEP Interpretation Triglycerides TSH Thyroxine (T4) Free T3 Index Arterial Blood Glucose 158 H Arterial Blood Ionized Calcium 3.9 L Immunofix Electrophor Coronavirus (PCR) Miscellaneous Test 02/01/21 02/01/21 02/01/21 04:00 04:00 05:36 WBC RBC Hgb 11.6 L Hct 34.6 L MCHC RDW Plt Count Lymph % (Auto) Lymph # (Auto) [place] # (Auto) Seg Neutrophils % Seg Neuts % (Manual) Lymphocytes % (Manual) Nucleated RBC % Seg Neutrophils # Seg Neutrophils # Man Lymphocytes # (Manual) Monocytes # (Manual) Eosinophils # (Manual) PT INR D-Dimer Heparin Anti-Xa Level ABG pH POC ABG pCO2 POC ABG pO2 ABG pO2 ABG O2 Saturation ABG Base Excess ABG Hemoglobin ABG Oxyhemoglobin ABG Sodium ABG Potassium ABG Chloride ABG Glucose Oxyhemoglobin Carboxyhemoglobin Sodium 136 L Potassium 5.2 H Chloride 93.6 L Carbon Dioxide BUN 78 H Creatinine 5.7 H Glucose 152 H POC Glucose 167 H Hemoglobin A1c Lactic Acid Calcium 7.1 L Phosphorus Magnesium Ferritin Total Bilirubin 3.00 H Direct Bilirubin AST 117 H ALT 108 H Alkaline Phosphatase Ammonia Lactate Dehydrogenase Total Creatine Kinase C-Reactive Protein Total Protein 5.6 L Albumin 2.7 L Ykxmc-1-Zcuerrrfb Ezdor-3-Gzgsaezlv Beta Globulins Abnorm Protein Band 1 PEP Interpretation Triglycerides TSH Thyroxine (T4) Free T3 Index Arterial Blood Glucose Arterial Blood Ionized Calcium Immunofix Electrophor Coronavirus (PCR) Miscellaneous Test 02/01/21 02/01/21 02/01/21 09:15 11:42 17:28 WBC RBC Hgb Hct MCHC RDW Plt Count Lymph % (Auto) Lymph # (Auto) [place] # (Auto) Seg Neutrophils % Seg Neuts % (Manual) Lymphocytes % (Manual) Nucleated RBC % Seg Neutrophils # Seg Neutrophils # Man Lymphocytes # (Manual) Monocytes # (Manual) Eosinophils # (Manual) PT 15.1 H INR D-Dimer Heparin Anti-Xa Level ABG pH POC ABG pCO2 POC ABG pO2 ABG pO2 ABG O2 Saturation ABG Base Excess ABG Hemoglobin ABG Oxyhemoglobin ABG Sodium ABG Potassium ABG Chloride ABG Glucose Oxyhemoglobin Carboxyhemoglobin Sodium Potassium Chloride Carbon Dioxide BUN Creatinine Glucose POC Glucose 159 H 171 H Hemoglobin A1c Lactic Acid Calcium Phosphorus Magnesium Ferritin Total Bilirubin Direct Bilirubin AST ALT Alkaline Phosphatase Ammonia Lactate Dehydrogenase Total Creatine Kinase C-Reactive Protein Total Protein Albumin Ltjlu-9-Edfumcmsc Myrxo-8-Trxtuivmf Beta Globulins Abnorm Protein Band 1 PEP Interpretation Triglycerides TSH Thyroxine (T4) Free T3 Index Arterial Blood Glucose Arterial Blood Ionized Calcium Immunofix Electrophor Coronavirus (PCR) Miscellaneous Test 02/01/21 02/02/21 02/02/21 23:06 02:58 05:06 WBC RBC Hgb Hct MCHC RDW Plt Count Lymph % (Auto) Lymph # (Auto) [place] # (Auto) Seg Neutrophils % Seg Neuts % (Manual) Lymphocytes % (Manual) Nucleated RBC % Seg Neutrophils # Seg Neutrophils # Man Lymphocytes # (Manual) Monocytes # (Manual) Eosinophils # (Manual) PT INR D-Dimer Heparin Anti-Xa Level ABG pH 7.208 L POC ABG pCO2 58.3 H POC ABG pO2 ABG pO2 ABG O2 Saturation ABG Base Excess ABG Hemoglobin 11.6 L ABG Oxyhemoglobin ABG Sodium 131.4 L ABG Potassium 5.6 H ABG Chloride 97.0 L ABG Glucose 155 H Oxyhemoglobin Carboxyhemoglobin Sodium Potassium Chloride Carbon Dioxide BUN Creatinine Glucose POC Glucose 155 H 134 H Hemoglobin A1c Lactic Acid Calcium Phosphorus Magnesium Ferritin Total Bilirubin Direct Bilirubin AST ALT Alkaline Phosphatase Ammonia Lactate Dehydrogenase Total Creatine Kinase C-Reactive Protein Total Protein Albumin Qvdcv-4-Fmmapsxly Bmbqt-4-Tcszxksux Beta Globulins Abnorm Protein Band 1 PEP Interpretation Triglycerides TSH Thyroxine (T4) Free T3 Index Arterial Blood Glucose 155 H Arterial Blood Ionized Calcium 3.9 L Immunofix Electrophor Coronavirus (PCR) Miscellaneous Test 02/02/21 02/02/21 02/02/21 11:10 16:22 17:52 WBC RBC Hgb Hct MCHC RDW Plt Count Lymph % (Auto) Lymph # (Auto) [place] # (Auto) Seg Neutrophils % Seg Neuts % (Manual) Lymphocytes % (Manual) Nucleated RBC % Seg Neutrophils # Seg Neutrophils # Man Lymphocytes # (Manual) Monocytes # (Manual) Eosinophils # (Manual) PT INR D-Dimer Heparin Anti-Xa Level 0.10 L ABG pH POC ABG pCO2 POC ABG pO2 ABG pO2 ABG O2 Saturation ABG Base Excess ABG Hemoglobin ABG Oxyhemoglobin ABG Sodium ABG Potassium ABG Chloride ABG Glucose Oxyhemoglobin Carboxyhemoglobin Sodium Potassium Chloride Carbon Dioxide BUN Creatinine Glucose POC Glucose 179 H 170 H Hemoglobin A1c Lactic Acid Calcium Phosphorus Magnesium Ferritin Total Bilirubin Direct Bilirubin AST ALT Alkaline Phosphatase Ammonia Lactate Dehydrogenase Total Creatine Kinase C-Reactive Protein Total Protein Albumin Nqakg-3-Kefmlkfcn Hsncl-8-Srytpmvty Beta Globulins Abnorm Protein Band 1 PEP Interpretation Triglycerides TSH Thyroxine (T4) Free T3 Index Arterial Blood Glucose Arterial Blood Ionized Calcium Immunofix Electrophor Coronavirus (PCR) Miscellaneous Test 02/02/21 02/02/21 02/02/21 23:22 23:23 Unknown WBC RBC Hgb Hct MCHC RDW Plt Count Lymph % (Auto) Lymph # (Auto) [place] # (Auto) Seg Neutrophils % Seg Neuts % (Manual) Lymphocytes % (Manual) Nucleated RBC % Seg Neutrophils # Seg Neutrophils # Man Lymphocytes # (Manual) Monocytes # (Manual) Eosinophils # (Manual) PT INR D-Dimer Heparin Anti-Xa Level 0.20 L ABG pH POC ABG pCO2 POC ABG pO2 ABG pO2 ABG O2 Saturation ABG Base Excess ABG Hemoglobin ABG Oxyhemoglobin ABG Sodium ABG Potassium ABG Chloride ABG Glucose Oxyhemoglobin Carboxyhemoglobin Sodium Potassium 5.9 H Chloride 95.0 L Carbon Dioxide BUN 118 H Creatinine 7.2 H Glucose 152 H POC Glucose 139 H Hemoglobin A1c Lactic Acid Calcium 7.1 L Phosphorus Magnesium Ferritin Total Bilirubin 2.90 H Direct Bilirubin AST 134 H ALT 169 H Alkaline Phosphatase Ammonia Lactate Dehydrogenase Total Creatine Kinase C-Reactive Protein Total Protein 5.0 L Albumin 2.5 L Ocwjg-1-Ursyswcgf Bglho-2-Ztqbghtxe Beta Globulins Abnorm Protein Band 1 PEP Interpretation Triglycerides TSH Thyroxine (T4) Free T3 Index Arterial Blood Glucose Arterial Blood Ionized Calcium Immunofix Electrophor Coronavirus (PCR) Miscellaneous Test 02/02/21 02/02/21 02/02/21 Unknown Unknown Unknown WBC 39.4 H RBC Hgb 10.7 L Hct 32.3 L MCHC RDW Plt Count Lymph % (Auto) Lymph # (Auto) [place] # (Auto) Seg Neutrophils % Seg Neuts % (Manual) Lymphocytes % (Manual) Nucleated RBC % Seg Neutrophils # Seg Neutrophils # Man Lymphocytes # (Manual) Monocytes # (Manual) Eosinophils # (Manual) PT 15.1 H INR D-Dimer Heparin Anti-Xa Level ABG pH POC ABG pCO2 POC ABG pO2 ABG pO2 ABG O2 Saturation ABG Base Excess ABG Hemoglobin ABG Oxyhemoglobin ABG Sodium ABG Potassium ABG Chloride ABG Glucose Oxyhemoglobin Carboxyhemoglobin Sodium Potassium Chloride Carbon Dioxide BUN Creatinine Glucose POC Glucose Hemoglobin A1c Lactic Acid Calcium Phosphorus Magnesium Ferritin Total Bilirubin Direct Bilirubin AST ALT Alkaline Phosphatase Ammonia 83.0 H Lactate Dehydrogenase Total Creatine Kinase C-Reactive Protein Total Protein Albumin Smcvt-0-Tjdhnsihi Wtlyp-2-Zbwunioec Beta Globulins Abnorm Protein Band 1 PEP Interpretation Triglycerides TSH Thyroxine (T4) Free T3 Index Arterial Blood Glucose Arterial Blood Ionized Calcium Immunofix Electrophor Coronavirus (PCR) Miscellaneous Test 02/02/21 02/03/21 02/03/21 Unknown 04:47 05:25 WBC 60.2 H* 55.8 H* RBC Hgb 11.0 L 10.3 L Hct 33.7 L 32.4 L MCHC RDW Plt Count Lymph % (Auto) Lymph # (Auto) [place] # (Auto) Seg Neutrophils % Seg Neuts % (Manual) 94.0 H Lymphocytes % (Manual) 3.0 L Nucleated RBC % Seg Neutrophils # Seg Neutrophils # Man 56.6 H Lymphocytes # (Manual) Monocytes # (Manual) 1.2 H Eosinophils # (Manual) 0.6 H PT INR D-Dimer Heparin Anti-Xa Level ABG pH POC ABG pCO2 POC ABG pO2 ABG pO2 ABG O2 Saturation ABG Base Excess ABG Hemoglobin ABG Oxyhemoglobin ABG Sodium ABG Potassium ABG Chloride ABG Glucose Oxyhemoglobin Carboxyhemoglobin Sodium Potassium Chloride Carbon Dioxide BUN Creatinine Glucose POC Glucose 158 H Hemoglobin A1c Lactic Acid Calcium Phosphorus Magnesium Ferritin Total Bilirubin Direct Bilirubin AST ALT Alkaline Phosphatase Ammonia Lactate Dehydrogenase Total Creatine Kinase C-Reactive Protein Total Protein Albumin Mbfqr-2-Aiyqwdafa Secch-7-Xkkxirslq Beta Globulins Abnorm Protein Band 1 PEP Interpretation Triglycerides TSH Thyroxine (T4) Free T3 Index Arterial Blood Glucose Arterial Blood Ionized Calcium Immunofix Electrophor Coronavirus (PCR) Miscellaneous Test 02/03/21 02/03/21 02/03/21 05:25 05:25 05:25 WBC RBC Hgb Hct MCHC RDW Plt Count Lymph % (Auto) Lymph # (Auto) [place] # (Auto) Seg Neutrophils % Seg Neuts % (Manual) Lymphocytes % (Manual) Nucleated RBC % Seg Neutrophils # Seg Neutrophils # Man Lymphocytes # (Manual) Monocytes # (Manual) Eosinophils # (Manual) PT INR D-Dimer 4328.24 H Heparin Anti-Xa Level ABG pH POC ABG pCO2 POC ABG pO2 ABG pO2 ABG O2 Saturation ABG Base Excess ABG Hemoglobin ABG Oxyhemoglobin ABG Sodium ABG Potassium ABG Chloride ABG Glucose Oxyhemoglobin Carboxyhemoglobin Sodium Potassium 5.4 H 5.6 H Chloride 97.3 L Carbon Dioxide 21 L BUN 86 H 86 H Creatinine 5.8 H 5.6 H Glucose 154 H 152 H POC Glucose Hemoglobin A1c Lactic Acid Calcium 7.8 L 7.9 L Phosphorus 8.50 H Magnesium 2.50 H Ferritin Total Bilirubin 2.30 H Direct Bilirubin AST 103 H ALT 200 H Alkaline Phosphatase 135 H Ammonia Lactate Dehydrogenase 1310 H Total Creatine Kinase C-Reactive Protein 2.50 H Total Protein 5.2 L Albumin 2.2 L Puvyz-6-Tckbclmxm Pyxps-9-Imudacuqs Beta Globulins Abnorm Protein Band 1 PEP Interpretation Triglycerides TSH Thyroxine (T4) Free T3 Index Arterial Blood Glucose Arterial Blood Ionized Calcium Immunofix Electrophor Coronavirus (PCR) Miscellaneous Test 02/03/21 02/03/21 02/03/21 05:25 07:35 11:35 WBC RBC Hgb Hct MCHC RDW Plt Count Lymph % (Auto) Lymph # (Auto) [place] # (Auto) Seg Neutrophils % Seg Neuts % (Manual) Lymphocytes % (Manual) Nucleated RBC % Seg Neutrophils # Seg Neutrophils # Man Lymphocytes # (Manual) Monocytes # (Manual) Eosinophils # (Manual) PT INR D-Dimer Heparin Anti-Xa Level < 0.10 L ABG pH POC ABG pCO2 POC ABG pO2 ABG pO2 ABG O2 Saturation ABG Base Excess ABG Hemoglobin ABG Oxyhemoglobin ABG Sodium ABG Potassium ABG Chloride ABG Glucose Oxyhemoglobin Carboxyhemoglobin Sodium Potassium Chloride Carbon Dioxide BUN Creatinine Glucose POC Glucose 146 H Hemoglobin A1c Lactic Acid Calcium Phosphorus Magnesium Ferritin 2914.0 H Total Bilirubin Direct Bilirubin AST ALT Alkaline Phosphatase Ammonia Lactate Dehydrogenase Total Creatine Kinase C-Reactive Protein Total Protein Albumin Gqlhx-9-Pdzaoqlyu Maqun-3-Zquuywwhs Beta Globulins Abnorm Protein Band 1 PEP Interpretation Triglycerides TSH Thyroxine (T4) Free T3 Index Arterial Blood Glucose Arterial Blood Ionized Calcium Immunofix Electrophor Coronavirus (PCR) Miscellaneous Test 02/03/21 02/03/21 02/04/21 17:45 23:41 04:00 WBC RBC Hgb Hct MCHC RDW Plt Count Lymph % (Auto) Lymph # (Auto) [place] # (Auto) Seg Neutrophils % Seg Neuts % (Manual) Lymphocytes % (Manual) Nucleated RBC % Seg Neutrophils # Seg Neutrophils # Man Lymphocytes # (Manual) Monocytes # (Manual) Eosinophils # (Manual) PT INR D-Dimer Heparin Anti-Xa Level ABG pH POC ABG pCO2 POC ABG pO2 69.2 L ABG pO2 ABG O2 Saturation ABG Base Excess ABG Hemoglobin 9.4 L ABG Oxyhemoglobin 91.5 L ABG Sodium 127.7 L ABG Potassium 4.9 H ABG Chloride ABG Glucose 172 H Oxyhemoglobin Carboxyhemoglobin Sodium Potassium Chloride Carbon Dioxide BUN Creatinine Glucose POC Glucose 138 H 150 H Hemoglobin A1c Lactic Acid Calcium Phosphorus Magnesium Ferritin Total Bilirubin Direct Bilirubin AST ALT Alkaline Phosphatase Ammonia Lactate Dehydrogenase Total Creatine Kinase C-Reactive Protein Total Protein Albumin Qjidl-0-Xtqfqmpai [place]sona-6-Bpwypjpxu Beta Globulins Abnorm Protein Band 1 PEP Interpretation Triglycerides TSH Thyroxine (T4) Free T3 Index Arterial Blood Glucose 172 H Arterial Blood Ionized Calcium 4.0 L Immunofix Electrophor Coronavirus (PCR) Miscellaneous Test 02/04/21 02/04/21 02/04/21 05:00 05:18 06:40 WBC 59.8 H* RBC 2.95 L Hgb 8.5 L Hct 26.2 L D MCHC RDW Plt Count Lymph % (Auto) Lymph # (Auto) [place] # (Auto) Seg Neutrophils % Seg Neuts % (Manual) Lymphocytes % (Manual) Nucleated RBC % Seg Neutrophils # Seg Neutrophils # Man Lymphocytes # (Manual) Monocytes # (Manual) Eosinophils # (Manual) PT INR D-Dimer Heparin Anti-Xa Level ABG pH POC ABG pCO2 POC ABG pO2 ABG pO2 ABG O2 Saturation ABG Base Excess ABG Hemoglobin ABG Oxyhemoglobin ABG Sodium ABG Potassium ABG Chloride ABG Glucose Oxyhemoglobin Carboxyhemoglobin Sodium 133 L Potassium Chloride 93.8 L Carbon Dioxide BUN 77 H Creatinine 5.3 H Glucose 168 H POC Glucose 163 H Hemoglobin A1c Lactic Acid Calcium 7.3 L Phosphorus Magnesium Ferritin Total Bilirubin 1.40 H Direct Bilirubin AST 110 H ALT 171 H Alkaline Phosphatase 196 H Ammonia Lactate Dehydrogenase Total Creatine Kinase C-Reactive Protein Total Protein 4.7 L Albumin 2.2 L Uvwnw-5-Ewdprjjyd Osica-0-Qvsmwpagi Beta Globulins Abnorm Protein Band 1 PEP Interpretation Triglycerides TSH Thyroxine (T4) Free T3 Index Arterial Blood Glucose Arterial Blood Ionized Calcium Immunofix Electrophor Coronavirus (PCR) Miscellaneous Test 02/04/21 02/04/21 02/04/21 12:15 16:55 23:39 WBC RBC Hgb Hct MCHC RDW Plt Count Lymph % (Auto) Lymph # (Auto) [place] # (Auto) Seg Neutrophils % Seg Neuts % (Manual) Lymphocytes % (Manual) Nucleated RBC % Seg Neutrophils # Seg Neutrophils # Man Lymphocytes # (Manual) Monocytes # (Manual) Eosinophils # (Manual) PT INR D-Dimer Heparin Anti-Xa Level ABG pH POC ABG pCO2 POC ABG pO2 ABG pO2 ABG O2 Saturation ABG Base Excess ABG Hemoglobin ABG Oxyhemoglobin ABG Sodium ABG Potassium ABG Chloride ABG Glucose Oxyhemoglobin Carboxyhemoglobin Sodium Potassium Chloride Carbon Dioxide BUN Creatinine Glucose POC Glucose 135 H 138 H 129 H Hemoglobin A1c Lactic Acid Calcium Phosphorus Magnesium Ferritin Total Bilirubin Direct Bilirubin AST ALT Alkaline Phosphatase Ammonia Lactate Dehydrogenase Total Creatine Kinase C-Reactive Protein Total Protein Albumin Nnrmf-7-Bxkvfnwie Phamr-5-Kdtucjydd Beta Globulins Abnorm Protein Band 1 PEP Interpretation Triglycerides TSH Thyroxine (T4) Free T3 Index Arterial Blood Glucose Arterial Blood Ionized Calcium Immunofix Electrophor Coronavirus (PCR) Miscellaneous Test 02/05/21 02/05/21 02/05/21 04:39 04:50 11:39 WBC RBC Hgb Hct MCHC RDW Plt Count Lymph % (Auto) Lymph # (Auto) [place] # (Auto) Seg Neutrophils % Seg Neuts % (Manual) Lymphocytes % (Manual) Nucleated RBC % Seg Neutrophils # Seg Neutrophils # Man Lymphocytes # (Manual) Monocytes # (Manual) Eosinophils # (Manual) PT INR D-Dimer Heparin Anti-Xa Level ABG pH 7.203 L POC ABG pCO2 POC ABG pO2 ABG pO2 64.8 L ABG O2 Saturation 86.6 L ABG Base Excess -4.2 L ABG Hemoglobin 8.6 L ABG Oxyhemoglobin ABG Sodium ABG Potassium ABG Chloride ABG Glucose Oxyhemoglobin 84.1 L Carboxyhemoglobin Sodium Potassium Chloride Carbon Dioxide BUN Creatinine Glucose POC Glucose 116 H 168 H Hemoglobin A1c Lactic Acid Calcium Phosphorus Magnesium Ferritin Total Bilirubin Direct Bilirubin AST ALT Alkaline Phosphatase Ammonia Lactate Dehydrogenase Total Creatine Kinase C-Reactive Protein Total Protein Albumin Jradr-3-Femelmpth Tupjr-4-Uhmmoypqs Beta Globulins Abnorm Protein Band 1 PEP Interpretation Triglycerides TSH Thyroxine (T4) Free T3 Index Arterial Blood Glucose Arterial Blood Ionized Calcium Immunofix Electrophor Coronavirus (PCR) Miscellaneous Test 02/05/21 02/05/21 02/05/21 14:32 14:32 14:32 WBC RBC Hgb 8.1 L Hct 26.5 L MCHC RDW Plt Count 132 L Lymph % (Auto) Lymph # (Auto) [place] # (Auto) Seg Neutrophils % Seg Neuts % (Manual) Lymphocytes % (Manual) Nucleated RBC % Seg Neutrophils # Seg Neutrophils # Man Lymphocytes # (Manual) Monocytes # (Manual) Eosinophils # (Manual) PT INR D-Dimer Heparin Anti-Xa Level ABG pH POC ABG pCO2 POC ABG pO2 ABG pO2 ABG O2 Saturation ABG Base Excess ABG Hemoglobin ABG Oxyhemoglobin ABG Sodium ABG Potassium ABG Chloride ABG Glucose Oxyhemoglobin Carboxyhemoglobin Sodium 129 L Potassium 5.5 H Chloride 91.3 L Carbon Dioxide BUN 95 H Creatinine 6.4 H Glucose 153 H POC Glucose Hemoglobin A1c Lactic Acid Calcium 7.1 L Phosphorus Magnesium Ferritin Total Bilirubin Direct Bilirubin AST 70 H ALT 130 H Alkaline Phosphatase 205 H Ammonia 94.0 H Lactate Dehydrogenase Total Creatine Kinase C-Reactive Protein Total Protein 4.9 L Albumin 2.1 L Nnhud-9-Fanpozlcj Bpwie-6-Ffrtswmvl Beta Globulins Abnorm Protein Band 1 PEP Interpretation Triglycerides TSH Thyroxine (T4) Free T3 Index Arterial Blood Glucose Arterial Blood Ionized Calcium Immunofix Electrophor Coronavirus (PCR) Miscellaneous Test 02/05/21 02/05/21 02/05/21 14:32 14:32 14:32 WBC RBC Hgb Hct MCHC RDW Plt Count Lymph % (Auto) Lymph # (Auto) [place] # (Auto) Seg Neutrophils % Seg Neuts % (Manual) Lymphocytes % (Manual) Nucleated RBC % Seg Neutrophils # Seg Neutrophils # Man Lymphocytes # (Manual) Monocytes # (Manual) Eosinophils # (Manual) PT INR D-Dimer 3359.01 H Heparin Anti-Xa Level ABG pH POC ABG pCO2 POC ABG pO2 ABG pO2 ABG O2 Saturation ABG Base Excess ABG Hemoglobin ABG Oxyhemoglobin ABG Sodium ABG Potassium ABG Chloride ABG Glucose Oxyhemoglobin Carboxyhemoglobin Sodium Potassium Chloride Carbon Dioxide BUN Creatinine Glucose POC Glucose Hemoglobin A1c Lactic Acid Calcium Phosphorus Magnesium Ferritin 2509.0 H Total Bilirubin Direct Bilirubin AST ALT Alkaline Phosphatase Ammonia Lactate Dehydrogenase 1181 H Total Creatine Kinase C-Reactive Protein 5.30 H Total Protein Albumin Hnsvq-7-Eggpzhnmv Bdogq-5-Lwddvkhiy Beta Globulins Abnorm Protein Band 1 PEP Interpretation Triglycerides TSH Thyroxine (T4) Free T3 Index Arterial Blood Glucose Arterial Blood Ionized Calcium Immunofix Electrophor Coronavirus (PCR) Miscellaneous Test 02/05/21 02/05/21 02/05/21 14:32 14:32 16:40 WBC RBC Hgb Hct MCHC RDW Plt Count Lymph % (Auto) Lymph # (Auto) [place] # (Auto) Seg Neutrophils % Seg Neuts % (Manual) Lymphocytes % (Manual) Nucleated RBC % Seg Neutrophils # Seg Neutrophils # Man Lymphocytes # (Manual) Monocytes # (Manual) Eosinophils # (Manual) PT INR D-Dimer Heparin Anti-Xa Level 0.20 L ABG pH POC ABG pCO2 POC ABG pO2 ABG pO2 ABG O2 Saturation ABG Base Excess ABG Hemoglobin ABG Oxyhemoglobin ABG Sodium ABG Potassium ABG Chloride ABG Glucose Oxyhemoglobin Carboxyhemoglobin Sodium 128 L Potassium 5.5 H Chloride 91.2 L Carbon Dioxide BUN 97 H Creatinine 6.2 H Glucose 155 H POC Glucose Hemoglobin A1c Lactic Acid Calcium 7.3 L Phosphorus 9.80 H Magnesium Ferritin Total Bilirubin Direct Bilirubin AST ALT Alkaline Phosphatase Ammonia Lactate Dehydrogenase Total Creatine Kinase C-Reactive Protein Total Protein Albumin Bgtby-0-Xmezogsix Pcyfe-7-Iifblmvrt Beta Globulins Abnorm Protein Band 1 PEP Interpretation Triglycerides TSH Thyroxine (T4) Free T3 Index Arterial Blood Glucose Arterial Blood Ionized Calcium Immunofix Electrophor Coronavirus (PCR) Miscellaneous Test 02/05/21 02/06/21 02/06/21 17:07 00:19 03:07 WBC RBC Hgb Hct MCHC RDW Plt Count Lymph % (Auto) Lymph # (Auto) [place] # (Auto) Seg Neutrophils % Seg Neuts % (Manual) Lymphocytes % (Manual) Nucleated RBC % Seg Neutrophils # Seg Neutrophils # Man Lymphocytes # (Manual) Monocytes # (Manual) Eosinophils # (Manual) PT INR D-Dimer Heparin Anti-Xa Level ABG pH 7.166 L POC ABG pCO2 65.0 H POC ABG pO2 55.2 L ABG pO2 ABG O2 Saturation ABG Base Excess ABG Hemoglobin 8.9 L ABG Oxyhemoglobin 81.0 L ABG Sodium 126.4 L ABG Potassium 5.6 H ABG Chloride 93.0 L ABG Glucose 122 H Oxyhemoglobin Carboxyhemoglobin Sodium Potassium Chloride Carbon Dioxide BUN Creatinine Glucose POC Glucose 132 H 115 H Hemoglobin A1c Lactic Acid Calcium Phosphorus Magnesium Ferritin Total Bilirubin Direct Bilirubin AST ALT Alkaline Phosphatase Ammonia Lactate Dehydrogenase Total Creatine Kinase C-Reactive Protein Total Protein Albumin Vuyfc-9-Lmdbwjezd Aclby-3-Cqnargoql Beta Globulins Abnorm Protein Band 1 PEP Interpretation Triglycerides TSH Thyroxine (T4) Free T3 Index Arterial Blood Glucose 122 H Arterial Blood Ionized Calcium 3.9 L Immunofix Electrophor Coronavirus (PCR) Miscellaneous Test 02/06/21 02/06/21 02/06/21 05:00 05:42 06:40 WBC 59.7 H* RBC 2.72 L Hgb 7.8 L Hct 24.9 L MCHC 31 L RDW 15.4 H Plt Count 124 L Lymph % (Auto) Lymph # (Auto) [place] # (Auto) Seg Neutrophils % Seg Neuts % (Manual) Lymphocytes % (Manual) Nucleated RBC % Seg Neutrophils # Seg Neutrophils # Man Lymphocytes # (Manual) Monocytes # (Manual) Eosinophils # (Manual) PT INR D-Dimer Heparin Anti-Xa Level ABG pH 7.139 L POC ABG pCO2 64.9 H POC ABG pO2 51.5 L ABG pO2 ABG O2 Saturation ABG Base Excess ABG Hemoglobin 8.8 L ABG Oxyhemoglobin 77.8 L ABG Sodium 125.8 L ABG Potassium 5.6 H ABG Chloride 92.0 L ABG Glucose 129 H Oxyhemoglobin Carboxyhemoglobin Sodium Potassium Chloride Carbon Dioxide BUN Creatinine Glucose POC Glucose 115 H Hemoglobin A1c Lactic Acid Calcium Phosphorus Magnesium Ferritin Total Bilirubin Direct Bilirubin AST ALT Alkaline Phosphatase Ammonia Lactate Dehydrogenase Total Creatine Kinase C-Reactive Protein Total Protein Albumin Xytqr-9-Huzemqpfh Fxqfj-7-Xepmpzpgm Beta Globulins Abnorm Protein Band 1 PEP Interpretation Triglycerides TSH Thyroxine (T4) Free T3 Index Arterial Blood Glucose 129 H Arterial Blood Ionized Calcium 3.9 L Immunofix Electrophor Coronavirus (PCR) Miscellaneous Test 02/06/21 02/06/21 02/06/21 06:40 10:15 11:39 WBC RBC Hgb Hct MCHC RDW Plt Count Lymph % (Auto) Lymph # (Auto) [place] # (Auto) Seg Neutrophils % Seg Neuts % (Manual) Lymphocytes % (Manual) Nucleated RBC % Seg Neutrophils # Seg Neutrophils # Man Lymphocytes # (Manual) Monocytes # (Manual) Eosinophils # (Manual) PT INR D-Dimer Heparin Anti-Xa Level 0.18 L ABG pH POC ABG pCO2 POC ABG pO2 ABG pO2 ABG O2 Saturation ABG Base Excess ABG Hemoglobin ABG Oxyhemoglobin ABG Sodium ABG Potassium ABG Chloride ABG Glucose Oxyhemoglobin Carboxyhemoglobin Sodium Potassium Chloride Carbon Dioxide BUN Creatinine Glucose POC Glucose 141 H Hemoglobin A1c Lactic Acid Calcium Phosphorus Magnesium Ferritin Total Bilirubin Direct Bilirubin AST ALT Alkaline Phosphatase Ammonia 100.0 H Lactate Dehydrogenase Total Creatine Kinase C-Reactive Protein Total Protein Albumin Ecdhr-3-Ityobmyta Ldcdk-3-Kbrrgkvvl Beta Globulins Abnorm Protein Band 1 PEP Interpretation Triglycerides TSH Thyroxine (T4) Free T3 Index Arterial Blood Glucose Arterial Blood Ionized Calcium Immunofix Electrophor Coronavirus (PCR) Miscellaneous Test 02/06/21 02/06/21 02/06/21 15:12 18:15 21:00 WBC RBC Hgb Hct MCHC RDW Plt Count Lymph % (Auto) Lymph # (Auto) [place] # (Auto) Seg Neutrophils % Seg Neuts % (Manual) Lymphocytes % (Manual) Nucleated RBC % Seg Neutrophils # Seg Neutrophils # Man Lymphocytes # (Manual) Monocytes # (Manual) Eosinophils # (Manual) PT INR D-Dimer Heparin Anti-Xa Level 0.18 L ABG pH POC ABG pCO2 50.6 H POC ABG pO2 36.5 L ABG pO2 ABG O2 Saturation ABG Base Excess ABG Hemoglobin 8.6 L ABG Oxyhemoglobin 66.7 L ABG Sodium 129.1 L ABG Potassium ABG Chloride 96.0 L ABG Glucose 122 H Oxyhemoglobin Carboxyhemoglobin Sodium Potassium Chloride Carbon Dioxide BUN Creatinine Glucose POC Glucose 123 H Hemoglobin A1c Lactic Acid Calcium Phosphorus Magnesium Ferritin Total Bilirubin Direct Bilirubin AST ALT Alkaline Phosphatase Ammonia Lactate Dehydrogenase Total Creatine Kinase C-Reactive Protein Total Protein Albumin Yyxsg-7-Rrbjxauax Mysui-6-Yyflblvuh Beta Globulins Abnorm Protein Band 1 PEP Interpretation Triglycerides TSH Thyroxine (T4) Free T3 Index Arterial Blood Glucose 122 H Arterial Blood Ionized Calcium 4.0 L Immunofix Electrophor Coronavirus (PCR) Miscellaneous Test 02/07/21 02/07/21 02/07/21 06:26 11:15 17:28 WBC RBC Hgb Hct MCHC RDW Plt Count Lymph % (Auto) Lymph # (Auto) [place] # (Auto) Seg Neutrophils % Seg Neuts % (Manual) Lymphocytes % (Manual) Nucleated RBC % Seg Neutrophils # Seg Neutrophils # Man Lymphocytes # (Manual) Monocytes # (Manual) Eosinophils # (Manual) PT INR D-Dimer Heparin Anti-Xa Level ABG pH POC ABG pCO2 POC ABG pO2 ABG pO2 ABG O2 Saturation ABG Base Excess ABG Hemoglobin ABG Oxyhemoglobin ABG Sodium ABG Potassium ABG Chloride ABG Glucose Oxyhemoglobin Carboxyhemoglobin Sodium Potassium Chloride Carbon Dioxide BUN Creatinine Glucose POC Glucose 109 H 122 H 145 H Hemoglobin A1c Lactic Acid Calcium Phosphorus Magnesium Ferritin Total Bilirubin Direct Bilirubin AST ALT Alkaline Phosphatase Ammonia Lactate Dehydrogenase Total Creatine Kinase C-Reactive Protein Total Protein Albumin Yxfzm-2-Qtlcqdzoc Sbhou-0-Lprkxzzdg Beta Globulins Abnorm Protein Band 1 PEP Interpretation Triglycerides TSH Thyroxine (T4) Free T3 Index Arterial Blood Glucose Arterial Blood Ionized Calcium Immunofix Electrophor Coronavirus (PCR) Miscellaneous Test 02/07/21 02/08/21 02/08/21 23:35 01:28 03:30 WBC RBC Hgb Hct MCHC RDW Plt Count Lymph % (Auto) Lymph # (Auto) [place] # (Auto) Seg Neutrophils % Seg Neuts % (Manual) Lymphocytes % (Manual) Nucleated RBC % Seg Neutrophils # Seg Neutrophils # Man Lymphocytes # (Manual) Monocytes # (Manual) Eosinophils # (Manual) PT INR D-Dimer Heparin Anti-Xa Level ABG pH 7.228 L POC ABG pCO2 55.5 H POC ABG pO2 49.9 L ABG pO2 ABG O2 Saturation ABG Base Excess ABG Hemoglobin 8.6 L ABG Oxyhemoglobin 75.8 L ABG Sodium 100.2 L ABG Potassium ABG Chloride 95.0 L ABG Glucose 144 H Oxyhemoglobin Carboxyhemoglobin 2.0 H Sodium 129 L Potassium Chloride 92.8 L Carbon Dioxide BUN 73 H Creatinine 5.3 H Glucose 147 H POC Glucose 121 H Hemoglobin A1c Lactic Acid Calcium 7.4 L Phosphorus Magnesium Ferritin Total Bilirubin Direct Bilirubin AST ALT Alkaline Phosphatase Ammonia Lactate Dehydrogenase Total Creatine Kinase C-Reactive Protein Total Protein Albumin Bzwqf-1-Lhgwfchvw Erbte-8-Vpkqbghjq Beta Globulins Abnorm Protein Band 1 PEP Interpretation Triglycerides TSH Thyroxine (T4) Free T3 Index Arterial Blood Glucose 144 H Arterial Blood Ionized Calcium 4.1 L Immunofix Electrophor Coronavirus (PCR) Miscellaneous Test 02/08/21 05:46 WBC RBC Hgb Hct MCHC RDW Plt Count Lymph % (Auto) Lymph # (Auto) [place] # (Auto) Seg Neutrophils % Seg Neuts % (Manual) Lymphocytes % (Manual) Nucleated RBC % Seg Neutrophils # Seg Neutrophils # Man Lymphocytes # (Manual) Monocytes # (Manual) Eosinophils # (Manual) PT INR D-Dimer Heparin Anti-Xa Level ABG pH POC ABG pCO2 POC ABG pO2 ABG pO2 ABG O2 Saturation ABG Base Excess ABG Hemoglobin ABG Oxyhemoglobin ABG Sodium ABG Potassium ABG Chloride ABG Glucose Oxyhemoglobin Carboxyhemoglobin Sodium Potassium Chloride Carbon Dioxide BUN Creatinine Glucose POC Glucose 138 H Hemoglobin A1c Lactic Acid Calcium Phosphorus Magnesium Ferritin Total Bilirubin Direct Bilirubin AST ALT Alkaline Phosphatase Ammonia Lactate Dehydrogenase Total Creatine Kinase C-Reactive Protein Total Protein Albumin Zaece-5-Hafoggpgi Kunmb-3-Xctmkuptm Beta Globulins Abnorm Protein Band 1 PEP Interpretation Triglycerides TSH Thyroxine (T4) Free T3 Index Arterial Blood Glucose Arterial Blood Ionized Calcium Immunofix Electrophor Coronavirus (PCR) Miscellaneous Test Chest x-ray: pending Allied health notes reviewed: nursing
--- NOTE | 2021-02-08 09:14 | Progress Note ---
Subjective Principal diagnosis: Ac hypoxemic resp failure; COVID-19; Pneumonia; Sepsis; Morbid obesity Interval history: Patient was seen today for follow-up of multiple renal related issues remains critically ill,in the ICU setting Multiorgan failure-like picture Events of 24 hours vitals labs intake output medications were reviewed Past medical history: Reviewed Family history: Reviewed Social history: Reviewed Allergies: Reviewed Physical examination: Vitals: Reviewed HEENT: No pallor or icterus oral mucosa moist Neck: Supple no JVD no thyromegaly Chest: Bilateral clear to auscultation anteriorly Heart: Regular rate and rhythm S1-S2 heard no S3-S4 Abdomen: Soft nontender no voluntary guarding rigidity rebound Extremity: Dry skin less than 1+ peripheral edema Psychiatric: No evidence of agitation and aggression noted Dermatology: No petechial rashes Labs and x-rays: Reviewed from today Assessment and plan Acute kidney injury: Currently dialysis dependent postdialysis labs shows sodium of 129 BUN 73 creatinine 5.3 bicarb 22 Currently on Friday schedule for dialysis, was initiated due to acute kidney injury patient continues to do very poorly, I do not believe dialysis alone is going to change the outcome, discussed with dialysis nurse will consider holding off dialysis for now Patient is high mortality risk #Elevated liver enzyme appears to be improving, #Elevated ammonia level, needs to be followed, #Severe protein calorie malnutrition due to acute illness liver disease renal failure multiorgan failure #Hypocalcemia ionized calcium is around 4.1 stable will need supplementation and close follow-up #Vancomycin level satisfactory 13.1 #Chronic hyponatremia multifactorial needs close monitoring and follow-up #Overall prognosis remains grim, mortality risk still remains high Critical care time spent in ICU setting 36 minutes Any renal questions call [phone] We'll continue to follow and make recommendation for renal standpoint Objective - Vital Signs Vital signs: Vital Signs - 12hr 02/07/21 02/07/21 02/07/21 21:15 21:30 21:45 Pulse Rate 68 65 66 Pulse Rate [ From Monitor] Respiratory 30 H 30 H 30 H Rate Blood Pressure 107/46 109/46 109/42 O2 Sat by Pulse 86 85 85 Oximetry 02/07/21 02/07/21 02/07/21 22:00 22:15 22:30 Pulse Rate 66 73 72 Pulse Rate [ From Monitor] Respiratory 30 H 30 H 30 H Rate Blood Pressure 111/46 104/48 108/46 O2 Sat by Pulse 85 90 90 Oximetry 02/07/21 02/07/21 02/07/21 22:45 22:48 23:00 Pulse Rate 65 67 69 Pulse Rate [ From Monitor] Respiratory 30 H 26 H 25 H Rate Blood Pressure 103/51 112/48 111/52 O2 Sat by Pulse 86 86 85 Oximetry 02/07/21 02/07/21 02/07/21 23:02 23:15 23:30 Pulse Rate 67 65 65 Pulse Rate [ From Monitor] Respiratory 29 H 30 H 26 H Rate Blood Pressure 111/52 114/49 109/44 O2 Sat by Pulse 86 87 87 Oximetry 02/07/21 02/08/21 02/08/21 23:45 00:00 00:15 Pulse Rate 66 66 67 Pulse Rate [ 69 From Monitor] Respiratory 30 H 30 H 30 H Rate Blood Pressure 108/42 118/37 121/47 O2 Sat by Pulse 87 87 87 Oximetry 02/08/21 02/08/21 02/08/21 00:30 00:40 00:45 Pulse Rate 65 66 66 Pulse Rate [ From Monitor] Respiratory 29 H 30 H Rate Blood Pressure 121/46 121/47 117/48 O2 Sat by Pulse 86 87 86 Oximetry 02/08/21 02/08/21 02/08/21 01:00 01:15 01:30 Pulse Rate 67 64 67 Pulse Rate [ From Monitor] Respiratory 30 H 30 H 30 H Rate Blood Pressure 114/47 117/44 114/48 O2 Sat by Pulse 85 84 86 Oximetry 02/08/21 02/08/21 02/08/21 01:45 02:00 02:15 Pulse Rate 70 68 68 Pulse Rate [ From Monitor] Respiratory 30 H 30 H 30 H Rate Blood Pressure 104/42 109/48 112/43 O2 Sat by Pulse 84 86 86 Oximetry 02/08/21 02/08/21 02/08/21 02:30 02:45 03:00 Pulse Rate 66 68 67 Pulse Rate [ From Monitor] Respiratory 30 H 30 H 30 H Rate Blood Pressure 117/50 108/45 105/46 O2 Sat by Pulse 86 87 88 Oximetry 02/08/21 02/08/21 02/08/21 03:15 03:30 03:45 Pulse Rate 67 66 65 Pulse Rate [ From Monitor] Respiratory 30 H 30 H 30 H Rate Blood Pressure 102/42 101/40 110/37 O2 Sat by Pulse 87 88 86 Oximetry 02/08/21 02/08/21 02/08/21 04:00 04:15 04:30 Pulse Rate 63 67 66 Pulse Rate [ 68 From Monitor] Respiratory 30 H 31 H 30 H Rate Blood Pressure 113/58 103/48 101/49 O2 Sat by Pulse 88 88 88 Oximetry 02/08/21 02/08/21 02/08/21 04:45 05:00 05:15 Pulse Rate 68 67 71 Pulse Rate [ From Monitor] Respiratory 30 H 30 H 30 H Rate Blood Pressure 104/44 111/52 111/47 O2 Sat by Pulse 88 84 85 Oximetry 02/08/21 02/08/21 02/08/21 05:30 05:45 06:00 Pulse Rate 72 73 76 Pulse Rate [ From Monitor] Respiratory 30 H 30 H 30 H Rate Blood Pressure 119/48 119/49 124/47 O2 Sat by Pulse 86 88 86 Oximetry 02/08/21 02/08/21 02/08/21 06:15 06:30 06:45 Pulse Rate 73 70 74 Pulse Rate [ From Monitor] Respiratory 27 H 30 H 13 Rate Blood Pressure 116/43 116/43 101/40 O2 Sat by Pulse 86 86 87 Oximetry 02/08/21 02/08/21 02/08/21 07:00 07:15 07:30 Pulse Rate 71 77 75 Pulse Rate [ From Monitor] Respiratory 13 30 H 21 Rate Blood Pressure 101/40 113/40 102/42 O2 Sat by Pulse 72 L 80 L 83 L Oximetry 02/08/21 02/08/21 07:45 07:49 Pulse Rate 76 69 Pulse Rate [ From Monitor] Respiratory 17 Rate Blood Pressure 100/43 100/43 O2 Sat by Pulse 81 L 82 L Oximetry - Lab 02/06/21 06:40 02/08/21 01:28 Most recent lab results ABG pH 7.228 (7.320-7.450) L 02/08/21 03:30 ABG pCO2 62.3 mm Hg 02/05/21 04:39 ABG pO2 64.8 mm Hg (80.0-90.0) L 02/05/21 04:39 ABG HCO3 24.0 mmol/L (20.0-26.0) 02/05/21 04:39 ABG O2 Saturation 77.6 (0-100) 02/08/21 03:30 Calcium 7.4 mg/dL (8.4-10.2) L 02/08/21 01:28 Phosphorus 9.80 mg/dL (2.5-4.5) H 02/05/21 16:40 Magnesium 2.50 mg/dL (1.7-2.3) H 02/03/21 05:25 Medications & Allergies - Medications Allergies/Adverse Reactions: Allergies No Known Allergies Allergy (Verified 01/27/21 15:55) Per Peg López Home Medications: Home Medications Medication Instructions Recorded Confirmed Last Taken Type No Known Home Medications [No 01/27/21 01/27/21 Unknown History Reported Home Medications] Active Medications: Generic Name Dose Route Start Last Admin Trade Name Freq PRN Reason Stop Dose Admin Albumin Human 25 gm 02/06/21 08:45 Albumin Human 25% (25 Gm/100 Ml) Inj IV MELECIO PRN Hypotension Amiodarone HCl 200 mg 01/30/21 10:00 02/07/21 10:42 Amiodarone 200 Mg Tab PO 200 mg DAILY JACK Administration Lipase/Protease/Amylase 1 each 01/27/21 11:37 Lipase 10,500/Protease 25,000/Amylase 43,750 (Units) Dr Singer FEEDTUBE PRN PRN For Clogged Feeding Tube Ascorbic Acid 500 mg 02/02/21 11:00 02/07/21 22:30 Ascorbic Acid 500 Mg Tab PO 500 mg BID JACK Administration Cholecalciferol 5,000 unit 02/02/21 11:00 02/07/21 10:41 Cholecalciferol (Vit D3) 5,000 Unit Tab PO 5,000 unit DAILY JACK Administration Dextrose 50 ml 01/29/21 12:24 Dextrose 50% In Water (25gm) 50 Ml Syringe IV Q30MIN PRN Hypoglycemia Protocol Famotidine 20 mg 01/27/21 10:00 02/07/21 10:42 Famotidine 20 Mg/2 Ml Inj IV 20 mg DAILY JACK Administration Fentanyl 50 mcg 02/03/21 15:20 Fentanyl 100 Mcg/2 Ml Inj IV Q10MIN PRN ANALGESIA Heparin Sodium (Porcine) 5,000 unit 01/28/21 09:27 Heparin 10,000 Units/10 Ml Vial IV Q6H PRN Anti-Xa Assay < 0.1 units/ml Hydrophilic Ointment 1 applic 01/25/21 13:27 Lip Therapy Vaseline TP Q2HR PRN Dry Lips Vasopressin 20 unit/ Sodium 101 mls @ 9.09 mls/hr 01/28/21 07:00 01/30/21 08:55 Chloride IV Infused TITR JACK Titration Protocol 0.03 UNITS/MIN Heparin Sodium/Sodium Chloride 25,000 unit in 500 mls @ 30 mls/hr 01/28/21 11 :00 02/08/21 01:41 Heparin/ 0.45% Nacl-25,000 Unit/500 Ml IV 1,850 units/hr TITR JACK 37 mls/hr Administration Protocol 1,500 UNITS/HR Fentanyl Citrate 2,000 mcg in 100 mls @ 6.4 mls/hr 02/03/21 16:00 02/07/21 17:25 Fentanyl Drip Premix IV 1 mcg/kg/hr TITR JACK 6.4 mls/hr Administration Protocol 1 MCG/KG/HR Sodium Chloride 100 mls @ 999 mls/hr 02/06/21 08:45 Nacl 0.9% IV MELECIO PRN Hypotension NORepinephrine/NS 8 MG-250 ML 8 mg in 250 mls @ 3.75 mls/hr 02/06/21 14:00 02/07/21 20:14 Norepinephrine/Ns 8 Mg-250 Ml (Double Conc) IV 6 mcg/min TITRATE JACK 11.25 mls/hr Administration Protocol 2 MCG/MIN Insulin Human Regular 0 units 01/29/21 13:00 02/08/21 06:51 Insulin Regular, Human 100 Units/1 Ml SUB-Q Not Given Q6HR [facility] Protocol Metoclopramide HCl 5 mg 02/06/21 10:00 02/08/21 01:38 Metoclopramide 10 Mg/2 Ml Inj IV 02/08/21 09:59 5 mg Q8H JACK Administration Multi-Ingred Cream/Lotion/Oil/Oint 1 applic 01/25/21 13:27 Mineral Oil/Petrolatum, White Ophth Oint 3.5 Gm OU Q4HR PRN Dry Eye(s) Ondansetron HCl 4 mg 01/22/21 23:03 Ondansetron 4 Mg/2 Ml Inj IV Q8H PRN Nausea And Vomiting Senna/Docusate Sodium 1 tab 01/25/21 22:00 02/08/21 06:52 Sennosides/Docusate Sodium 8.6/50 Mg Tab FEEDTUBE Not Given BID JACK Simple Syrup 15 ml 01/27/21 11:37 Simple Syrup 15 Ml FEEDTUBE PRN PRN Hypoglycemia Simple Syrup 30 ml 01/27/21 11:37 Simple Syrup 15 Ml FEEDTUBE PRN PRN Hypoglycemia Sodium Bicarbonate 325 mg 01/27/21 11:37 Sodium Bicarbonate 325 Mg Tab FEEDTUBE PRN PRN For Clogged Feeding Tube Sodium Chloride 10 ml 01/22/21 23:45 02/08/21 06:51 Sodium Chloride 0.9% 10 Ml Flush Syringe IV 10 ml BID JACK Administration Sodium Chloride 10 ml 01/22/21 23:03 Sodium Chloride 0.9% 10 Ml Flush Syringe IV PRN PRN LINE FLUSH Vancomycin HCl 125 mg 02/06/21 12:00 02/08/21 06:50 Vancomycin 250 Mg/10 Ml Oral Liqd PO 02/15/21 12:01 125 mg Q6HR JACK Administration Protocol Voriconazole 300 mg 01/29/21 11:00 02/07/21 22:29 Voriconazole 200 Mg Tab PO 300 mg Q12HR JACK Administration Zinc Sulfate 220 mg 02/02/21 11:00 02/07/21 22:30 Zinc Sulfate 220 Mg Cap PO 220 mg BID JACK Administration
--- NOTE | 2021-02-08 09:53 | XRay Report ---
CHEST 1 VIEW 02/08/2021 8:45 AM INDICATION / CLINICAL INFORMATION: pneumothorax. COMPARISON: 02/06/2021 FINDINGS: Bilateral pneumothoraces persist. The right apical pneumothorax measures 2.6 cm in left 2.7 cm. Diffuse underlying pulmonary opacities in bilateral lungs persist. The left lung pneumothorax ma y be slightly improved IMPRESSION: 1. Bilateral moderate pneumothoraces in the lung apices persist. Diffuse pulmonary opacities in bilat eral lungs are noted. Signer Name: Lucho Malloy MD Signed: 02/08/2021 9:49 AM Workstation Name: [id number]
--- NOTE | 2021-02-08 09:58 | Progress Note ---
Assessment and Plan Acute Respiratory Failure COVID-19 PNA Septic Shock * Patient remains intubated. ID following * Wean pressors as tolerated SEDRICK (initiated on dialysis) * Nephrology following SVT Sinus Rhythm PAF with RVR * Patient still currently sinus 70s on monitor. * Echo 01/29/2021- Normal EF. Technically difficult study, no interpretable im ages were seen. * Continue anticoagulation with IV heparin gtt for now. * Continue Amio 200mg PO daily Will continue to follow. Pt seen in conjunction with Dr. Rosales, who agrees with the assessment and plan of care. - Patient Problems (1) Acute respiratory failure due to COVID-19 Current Visit: Yes Status: Acute (2) Atrial fibrillation with RVR Current Visit: Yes Status: Acute (3) Hypotension Current Visit: Yes Status: Acute (4) Morbid obesity with BMI of 40.0-44.9, adult Current Visit: Yes Status: Acute (5) Multifocal pneumonia Current Visit: Yes Status: Acute (6) Sepsis Current Visit: Yes Status: Acute (7) Chronic venous insufficiency Current Visit: Yes Status: Chronic Subjective Date of service: 02/08/21 Principal diagnosis: Ac hypoxemic resp failure; COVID-19; Pneumonia; Sepsis; Morbid obesity Interval history: Patient remain intubated. sinus 70s with pvcs on monitor Objective Last Vital Signs Temp 96.1 F L 02/07/21 20:00 Pulse 69 02/08/21 07:49 Resp 17 02/08/21 07:45 BP 100/43 02/08/21 07:49 Pulse Ox 82 L 02/08/21 07:49 - Physical Examination General: Other (intubated) HEENT: Positive: Normocephaly Neck: Positive: trachea midline. Negative: JVD/HJR Cardiac: Positive: Reg Rate and Rhythm Lungs: Positive: Ventilated Respirations Neuro: Positive: Other (intubated) Abdomen: Positive: Soft Skin: Negative: Rash Musculoskeletal: No Fluid Collection Extremities: Present: lower extr. pulses, edema, Other (chronic changes) - Labs and Meds Comprehensive Metabolic Panel 02/08/21 Range/Units 01:28 Sodium 129 L (137-145) mmol/L Potassium 4.5 (3.6-5.0) mmol/L Chloride 92.8 L (98-107) mmol/L Carbon Dioxide 22 (22-30) mmol/L BUN 73 H (9-20) mg/dL Creatinine 5.3 H (0.8-1.3) mg/dL Glucose 147 H (75-100) mg/dL Calcium 7.4 L (8.4-10.2) mg/dL - Imaging and Cardiology EKG: report reviewed, image reviewed Echo: report reviewed - Telemetry EKG Rhythm: Sinus Rhythm - EKG Sinus rhythms and dysrhythmias: sinus rhythm Ventricular dysrhythmias: ventricular premature com Repolarization changes or abnormalities: nonspecific abnormality, ST segment, and/or T wave - Allied health notes Allied health notes reviewed: nursing
[2021-02-08] MEDS: fentaNYL DRIP Premix 2,000 MCG/100 ML BAG IV SCH ×2 (10:00→17:40)
[2021-02-08] MEDS: FAMOTIDINE 20 MG/2 ML INJ IV SCH (10:00)
[2021-02-08] MEDS: ASCORBIC ACID 500 MG TAB PO SCH ×2 (10:00→21:00)
[2021-02-08] MEDS: CHOLECALCIFEROL (VIT D3) 5,000 UNIT TAB PO SCH (10:00)
[2021-02-08] MEDS: ZINC SULFATE 220 MG CAP PO SCH (10:00)
[2021-02-08] MEDS: AMIODARONE 200 MG TAB PO SCH (10:00)
[2021-02-08] MEDS: VORICONAZOLE 200 MG TAB PO SCH ×2 (10:01→21:00)
--- NOTE | 2021-02-08 13:07 | Progress Note ---
Assessment and Plan Cultures: SARS CoV2 PCR: positive 01/22/2021 blood culture: No growth 01/25/2021 endotracheal aspirate culture: Aspergillus fumigatus 02/03/2021 blood culture: in process 02/03/2021 ET aspirate culture: in process. A/P: 55/M with obesity, admitted with: #Shock: likely secondary to severe COVID-19. #Leukemoid reaction: multifactorial, from below. On empiric abx. #Bilateral pneumonia: Secondary to COVID-19. Very high d-dimer. DVT scan negative. #Mold in sputum: ?colonization. Awaiting ID, meanwhile, initiated PO voriconazole given steroids and Actemra. Avoid ABLC given renal failure. #Acute hypoxic respiratory failure: Failed BiPAP. Requiring mechanical ventilation. #Subcutaneous emphysema, b/l pneumothorax, was seen by surgery and underwent right-sided chest tube placement 01/31/2021, left chest tube placement by Dr. Yee on 02/01/2021. #SEDRICK: creatinine elevated, on HD per nephrology. #Morbid obesity Recs: -f/u new cultures -continue IV Cefepime + Vancomycin, D5 of 5 -On PO vancomycin. Compelte 10 days if diarrhea improving -s/p Actemra on 01/26/2021 -completed steroids -continue PO voriconazole for mold in sputum given use of steroids and Actemra. Will likely need prolonged course if he survives -prophylactic anticoagulation based on d-dimer per hospital protocol. -extremely poor prognosis, consider DNR status GNat Eric MD [facility] O: [phone] F: [phone] Subjective Date of service: 02/08/21 Principal diagnosis: Ac hypoxemic resp failure; COVID-19; Pneumonia; Sepsis; Morbid obesity Interval history: Afebrile, no acute change. Imaging personally reviewed Chest x-ray: Bilateral moderate thoraces. Ongoing diffuse opacities bilaterally Objective - Exam Narrative Exam: Physical exam deferred to reduce risk of transmission of COVID-19. Please refer to primary team's note. - Constitutional Vitals: Vital Signs Temp Pulse Resp BP Pulse Ox 96.1 F L 80 17 100/41 80 L 02/07/21 20:00 02/08/21 11:53 02/08/21 07:45 02/08/21 11:53 02/08/21 11:53 Temperature -Last 24 Hours Temperature 96.1 F - Labs CBC & Chem 7: 02/06/21 06:40 02/08/21 01:28 Labs: Abnormal lab results 02/07/21 02/07/21 02/08/21 Range/Units 17:28 23:35 01:28 ABG pH (7.320-7.450) POC ABG pCO2 (32.0-48.0) mmHg POC ABG pO2 (83-108) mmHg ABG Hemoglobin (12.0-17.5) ABG Oxyhemoglobin (94-98) ABG Sodium (136.0-145.0) mmol/L ABG Chloride (98-107) mmol/L ABG Glucose (65-95) mg/dL Carboxyhemoglobin (0.5-1.5) Sodium 129 L (137-145) mmol/L Chloride 92.8 L (98-107) mmol/L BUN 73 H (9-20) mg/dL Creatinine 5.3 H (0.8-1.3) mg/dL Glucose 147 H (75-100) mg/dL POC Glucose 145 H 121 H (70-105) mg/dL Calcium 7.4 L (8.4-10.2) mg/dL Arterial Blood Glucose (65-95) mg/dL Arterial Blood Ionized Calcium (4.6-5.3) mg/dL 02/08/21 02/08/21 02/08/21 Range/Units 03:30 05:46 12:19 ABG pH 7.228 L (7.320-7.450) POC ABG pCO2 55.5 H (32.0-48.0) mmHg POC ABG pO2 49.9 L (83-108) mmHg ABG Hemoglobin 8.6 L (12.0-17.5) ABG Oxyhemoglobin 75.8 L (94-98) ABG Sodium 100.2 L (136.0-145.0) mmol/L ABG Chloride 95.0 L (98-107) mmol/L ABG Glucose 144 H (65-95) mg/dL Carboxyhemoglobin 2.0 H (0.5-1.5) Sodium (137-145) mmol/L Chloride (98-107) mmol/L BUN (9-20) mg/dL Creatinine (0.8-1.3) mg/dL Glucose (75-100) mg/dL POC Glucose 138 H 111 H (70-105) mg/dL Calcium (8.4-10.2) mg/dL Arterial Blood Glucose 144 H (65-95) mg/dL Arterial Blood Ionized Calcium 4.1 L (4.6-5.3) mg/dL
[2021-02-08] MEDS: NORepinephrine/NS 8 MG-250 ML 8 MG/250 ML INFUS..BTL IV SCH ×2 (16:21→22:22)
--- NOTE | 2021-02-08 19:19 | Progress Note ---
Assessment and Plan Assessment and plan: Assessment and plan: This is a 55-year-old male with morbid obesity, former nicotine abuse and venous insufficiency who was admitted as a COVID-19 PUI with acute hypoxic respiratory failure, sepsis, multifocal pneumonia Neuro: Acute metabolic encephalopathy, hepatic encephalopathy -elevated ammonia -EEG completed -not waking up -neuro consulted Cardio: A. fib with RVR; hypotension -Cardiology consulted, appreciate recommendations -Transitioned from IV amiodarone to p.o. amiodarone -Echocardiogram completed ee results -Wean vasopressor support for MAP goal greater than 65 -Levo as needed Respiratory: Acute hypoxic respiratory failure, Bilateral pneumothorax with large airleak on the right -Intubated -CCM consulted, managing vent -surgery following for CT -CT to wall suction - large airleak on the right -Serial ABG and CXR -VAP bundle -Continuous SPO2 monitoring GI: protein isa. malnutrition, transaminitis -TF as tolerated -on reglan -BR: Senokot -Renal ultrasound reviewed-> shows only hepatic steatosis -Trend LFTs : Acute kidney injury secondary to vasomotor nephropathy, hyperkalemia -Nephrology consulted, appreciate recommendations -Patient initiated on hemodialysis 01/27 -HD per nephrology -Strict intake and output -Avoid nephrotoxic medications-renally dose medications Endo: NAD; obese -SSI PRN ID: COVID-19 pneumonia, septic shock, bilateral pneumonia,? Mold in sputum, Leukocytosis -Infectious disease consulted, appreciate recommendations (signed off 01/31) -Contact/droplet isolation -Dexamethasone for 10 days -Actemra administered 01/26 -P.o. voriconazole given steroids and Actemra -Per infectious disease: Avoid ABLC given renal failure -S/p ABX therapy for pneumonia -Monitor WBC and fever curve -trend cultures -treating for presumed cdiff given loose stool overnight - vanc PO x 10 days Heme: Elevated D-dimer, leukocytosis -Anticoagulation with heparin drip -Trend CBC -Transfuse for hemoglobin less than 7 -Lower extremity Doppler ultrasound shows no evidence of DVT DNR since 02/06, no acive management per family request,grave prognosis History Interval history: This is a 55-year-old male with morbid obesity venous insufficiency, former smoker who presented to the emergency department on 01/22 for SOB x4 days prior to admission and patient was diagnosed with COVID-19 at OSH on 01/16 after the patient was discharged. Patient had worsening symptoms therefore he presented to [facility]. Patient had fever, chills, headache, cough, shortness of breath, body aches, loss of taste and smell. Upon arrival of EMS patient was saturating at 60% on room air and received albuterol, magnesium, Solu-Medrol. Patient remained hypoxic in spite of being on a nonrebreather and was started on a BiPAP in the emergency department. Patient was admitted to the hospitalist service with consults to ID, pulmonology and later nephrology and cardiology. Patient admitted for acute hypoxic respiratory failure, sepsis, multifocal pneumonia, PUI for COVID-19. 02/04: Patient remains on high vent settings, family to visit tomorrow [facility]. 02/03: HD MWF, left sided chest tube placed today at bedside by [facility]. Leukocytosis noted and will monitor. Witness consent for chest tube from who wants "everything done to save his life" 02/02: vent changes made by [facility], no acute events reported overnight. A.m. CXR read as improvement to pneumothorax. No acute events reported overnight. pt has hyperkalemia today but scheduled for hd today 02/01: patient was started on trickle feeding yesterday, heparin was on hold for placement of chest tube by surgery. Today patient developed pneumothorax and chest tube was placed again by surgery at bedside. Patient tube feedings will be gradually increased to goal as tolerated. 01/31: Patient has subq air on exam, cxr shows possible apical pneumo and surgery consulted for possible chest tube placement. HD today 01/30: This morning patient is not on sedation and does not follow commands, per RN report patient does not have cough/gag. No acute events reported overnight. EEG ordered, KUB and NGT to LIS for high residuals. NH3 high-lactulose started 01/29: Patient is in acute respiratory failure on continuous BiPAP With low saturations intermittently Patient has severe Covid pneumonia, elevated D-dimers on empiric full dose anticoagulation Not a candidate for CTA chest as patient is unstable Patient is critically ill in severe distress Patient has low saturations even on continuous BiPAP May need intubation and mechanical ventilation Vital signs noted 01/28/2021 Patient intubated Sedated Same condition On pressors Poor prognosis 01/27/2021 Patient intubated Sedated On vent protocol 01/26/2021 Patient is intubated Patient is Covid positive 01/25/2021; patient for intubation and mechanical ventilation As patient is severely hypoxemic even on continuous BiPAP 01/24: Patient is severely hypoxemic requiring continuous BiPAP, with borderline O2 sats Pulmonary critical following, stat ABG If no improvement intubate as needed Patient is elevated D-dimers, in the setting of COVID-19 morbid obesity respiratory failure requiring continuous BiPAP We will treat empirically with full dose anticoagulation, check CTA chest and lower extremity venous Doppler to rule out PE and DVT. Patient is critically ill with poor prognosis Plan of care reviewed with the patient and his nurse 01/23: We will closely monitor the patient and adjust management as needed Follow khan PCR test, consult ID if needed 02-05 no acute events overnight 02-06 Family made DNR and no active management 02/07 Family requested DNR status and no active management on 02/06 since he remains severely hypoxic, pO2 36 on Fio2 100%, however did not request WOC. He remains unresponsive and severely hypoxic with imminent . d/w nursing staff 02/08 Status unchanged. Family requested DNR status and no active management on 02/06 since he remains severely hypoxic, pO2 36 on Fio2 100%, however did not request WOC. He remains unresponsive and severely hypoxic with imminent . d/w nursing staff History Interval history: Family requested DNR status and no active management on 02/06 since he remains severely hypoxic, pO2 36 on Fio2 100%, however did not request WOC. He remains unresponsive. Hospitalist Physical - Constitutional Vitals: Temp Pulse Resp BP Pulse Ox 98.3 F 87 16 85/45 75 L 02/08/21 16:00 02/08/21 19:00 02/08/21 19:00 02/08/21 19:00 02/08/21 19:00 General appearance: Present: obese (Morbidly obese), other (on vent, unresp onsive) - EENT ENT: other (ETT inplace) - Neck Neck: Present: supple - Respiratory Respiratory effort: other (on vent, fio2 100 5) - Cardiovascular Rhythm: regular - Abdominal General gastrointestinal: soft, non-tender - Neurologic Neurologic: other (unresponsive on vent) HEART Score - HEART Score Age: 45-65 Risk factors: 1-2 risk factors Troponin: < normal limit - Critical Actions Critical Actions: 0-3 pts:0.9-1.7%risk of adverse cardiac event.Candidate for discharge Results - Labs CBC & Chem 7: 02/06/21 06:40 02/08/21 01:28 Labs: Laboratory Last Values WBC 59.7 K/mm3 (4.5-11.0) H* 02/06/21 06:40 RBC 2.72 M/mm3 (3.65-5.03) L 02/06/21 06:40 Hgb 7.8 gm/dl (11.8-15.2) L 02/06/21 06:40 Hct 24.9 % (35.5-45.6) L 02/06/21 06:40 MCV 92 fl (84-94) 02/06/21 06:40 MCH 29 pg (28-32) 02/06/21 06:40 MCHC 31 % (32-34) L 02/06/21 06:40 RDW 15.4 % (13.2-15.2) H 02/06/21 06:40 Plt Count 124 K/mm3 (140-440) L 02/06/21 06:40 Lymph % (Auto) 4.4 % (13.4-35.0) L 01/23/21 05:29 [place] % (Auto) 6.4 % (0.0-7.3) 01/23/21 05:29 Lymph # (Auto) 0.8 K/mm3 (1.2-5.4) L 01/23/21 05:29 [place] # (Auto) 1.2 K/mm3 (0.0-0.8) H 01/23/21 05:29 Add Manual Diff Complete 02/02/21 Unknown Total Counted 100 02/02/21 Unknown Seg Neutrophils % Training Director 02/02/21 Unknown Seg Neuts % (Manual) 94.0 % (40.0-70.0) H 02/02/21 Unknown Band Neutrophils % 2.0 % 01/22/21 11:06 Lymphocytes % (Manual) 3.0 % (13.4-35.0) L 02/02/21 Unknown Monocytes % (Manual) 2.0 % (0.0-7.3) 02/02/21 Unknown Eosinophils % (Manual) 1.0 % (0.0-4.3) 02/02/21 Unknown Nucleated RBC % Not Reportable 02/02/21 Unknown Seg Neutrophils # 16.9 K/mm3 (1.8-7.7) H 01/23/21 05:29 Seg Neutrophils # Man 56.6 K/mm3 (1.8-7.7) H 02/02/21 Unknown Band Neutrophils # 0.0 K/mm3 02/02/21 Unknown Lymphocytes # (Manual) 1.8 K/mm3 (1.2-5.4) 02/02/21 Unknown Abs React Lymphs (Man) 0.0 K/mm3 02/02/21 Unknown Monocytes # (Manual) 1.2 K/mm3 (0.0-0.8) H 02/02/21 Unknown Eosinophils # (Manual) 0.6 K/mm3 (0.0-0.4) H 02/02/21 Unknown Basophils # (Manual) 0.0 K/mm3 (0.0-0.1) 02/02/21 Unknown Metamyelocytes # 0.0 K/mm3 02/02/21 Unknown Myelocytes # 0.0 K/mm3 02/02/21 Unknown Promyelocytes # 0.0 K/mm3 02/02/21 Unknown Blast Cells # 0.0 K/mm3 02/02/21 Unknown WBC Morphology Not Reportable 02/02/21 Unknown Hypersegmented Neuts Not Reportable 02/02/21 Unknown Hyposegmented Neuts Not Reportable 02/02/21 Unknown Hypogranular Neuts Not Reportable 02/02/21 Unknown Smudge Cells Not Reportable 02/02/21 Unknown Toxic Granulation Not Reportable 02/02/21 Unknown Toxic Vacuolation Not Reportable 02/02/21 Unknown Dohle Bodies Not Reportable 02/02/21 Unknown Pelger-Huet Anomaly Not Reportable 02/02/[address] Not Reportable 02/02/21 Unknown Platelet Estimate Not Reportable 02/02/21 Unknown Clumped Platelets Not Reportable 02/02/21 Unknown Plt Clumps, EDTA Not Reportable 02/02/21 Unknown Large Platelets Not Reportable 02/02/21 Unknown Giant Platelets Not Reportable 02/02/21 Unknown Platelet Satelliting Not Reportable 02/02/21 Unknown Plt Morphology Comment Not Reportable 02/02/21 Unknown RBC Morphology Normal 02/02/21 Unknown Dimorphic RBCs Not Reportable 02/02/21 Unknown Polychromasia Not Reportable 02/02/21 Unknown Hypochromasia Not Reportable 02/02/21 Unknown Poikilocytosis Not Reportable 02/02/21 Unknown Anisocytosis Not Reportable 02/02/21 Unknown Microcytosis Not Reportable 02/02/21 Unknown Macrocytosis Not Reportable 02/02/21 Unknown Spherocytes Not Reportable 02/02/21 Unknown Pappenheimer Bodies Not Reportable 02/02/21 Unknown Sickle Cells Not Reportable 02/02/21 Unknown Target Cells Not Reportable 02/02/21 Unknown Tear Drop Cells Not Reportable 02/02/21 Unknown Ovalocytes Not Reportable 02/02/21 Unknown Helmet Cells Not Reportable 02/02/21 Unknown [place] Bodies Not Reportable 02/02/21 Unknown [place] Rings Not Reportable 02/02/21 Unknown Claudia Cells Not Reportable 02/02/21 Unknown Bite Cells Not Reportable 02/02/21 Unknown Crenated Cell Not Reportable 02/02/21 Unknown Elliptocytes Not Reportable 02/02/21 Unknown Acanthocytes (Spur) Not Reportable 02/02/21 Unknown Rouleaux Not Reportable 02/02/21 Unknown Hemoglobin C Crystals Not Reportable 02/02/21 Unknown Schistocytes Not Reportable 02/02/21 Unknown Malaria parasites Not Reportable 02/02/21 Unknown Lloyd Bodies Not Reportable 02/02/21 Unknown Hem Pathologist Commnt No 02/02/21 Unknown PT 15.1 Sec. (12.2-14.9) H 02/02/21 Unknown INR 1.13 (0.87-1.13) 02/02/21 Unknown APTT 29.2 Sec. (24.2-36.6) 01/28/21 10:03 D-Dimer 3359.01 ng/mlDDU (0-234) H 02/05/21 14:32 Heparin Anti-Xa Level 0.52 U.I./ml (0.3-0.7) 02/08/21 09:00 ABG pH 7.228 (7.320-7.450) L 02/08/21 03:30 POC ABG pCO2 55.5 mmHg (32.0-48.0) H 02/08/21 03:30 ABG pCO2 62.3 mm Hg 02/05/21 04:39 POC ABG pO2 49.9 mmHg (83-108) L 02/08/21 03:30 ABG pO2 64.8 mm Hg (80.0-90.0) L 02/05/21 04:39 POC ABG HCO3 22.6 02/08/21 03:30 ABG HCO3 24.0 mmol/L (20.0-26.0) 02/05/21 04:39 ABG O2 Saturation 77.6 (0-100) 02/08/21 03:30 ABG O2 Content 10.3 (0.0-44) 02/05/21 04:39 POC ABG Base Excess -4.9 02/08/21 03:30 ABG Base Excess -4.2 mmol/L (-2.0-3.0) L 02/05/21 04:39 ABG Hemoglobin 8.6 (12.0-17.5) L 02/08/21 03:30 ABG Oxyhemoglobin 75.8 (94-98) L 02/08/21 03:30 ABG Carboxyhemoglobin 2.1 % (0.0-5.0) 02/05/21 04:39 ABG Methemoglobin 0.3 (0.0-1.5) 02/08/21 03:30 ABG Sodium 100.2 mmol/L (136.0-145.0) L 02/08/21 03:30 ABG Potassium 4.1 mmol/L (3.40-4.50) 02/08/21 03:30 ABG Chloride 95.0 mmol/L (98-107) L 02/08/21 03:30 ABG Glucose 144 mg/dL (65-95) H 02/08/21 03:30 Oxyhemoglobin 84.1 % (95.0-99.0) L 02/05/21 04:39 Carboxyhemoglobin 2.0 (0.5-1.5) H 02/08/21 03:30 FiO2 100 % 02/05/21 04:39 FiO2 % 100.0 02/08/21 03:30 Sodium 129 mmol/L (137-145) L 02/08/21 01:28 Potassium 4.5 mmol/L (3.6-5.0) 02/08/21 01:28 Chloride 92.8 mmol/L (98-107) L 02/08/21 01:28 Carbon Dioxide 22 mmol/L (22-30) 02/08/21 01:28 Anion Gap 19 mmol/L 02/08/21 01:28 BUN 73 mg/dL (9-20) H 02/08/21 01:28 Creatinine 5.3 mg/dL (0.8-1.3) H 02/08/21 01:28 Estimated GFR 11 ml/min 02/08/21 01:28 BUN/Creatinine Ratio 14 % 02/08/21 01:28 Glucose 147 mg/dL (75-100) H 02/08/21 01:28 POC Glucose 70 mg/dL (70-105) 02/08/21 18:01 Hemoglobin A1c 6.2 % (4-6) H 01/22/21 11:06 Lactic Acid 1.30 mmol/L (0.7-2.0) 02/05/21 16:40 Calcium 7.4 mg/dL (8.4-10.2) L 02/08/21 01:28 Phosphorus 9.80 mg/dL (2.5-4.5) H 02/05/21 16:40 Magnesium 2.50 mg/dL (1.7-2.3) H 02/03/21 05:25 Ferritin 2509.0 ng/mL (30.0-300.0) H 02/05/21 14:32 Total Bilirubin 1.20 mg/dL (0.1-1.2) 02/05/21 14:32 Direct Bilirubin 1.6 mg/dL (0-0.2) H 01/31/21 03:30 Indirect Bilirubin 0.0 mg/dL 01/31/21 03:30 AST 70 units/L (5-40) H 02/05/21 14:32 ALT 130 units/L (7-56) H 02/05/21 14:32 Alkaline Phosphatase 205 units/L (35-129) H 02/05/21 14:32 Ammonia 100.0 umol/L (25-60) H 02/06/21 06:40 Lactate Dehydrogenase 1181 units/L (91-180) H 02/05/21 14:32 Total Creatine Kinase 258 units/L (55-170) H 01/27/21 05:00 C-Reactive Protein 5.30 mg/dL (0.00-1.30) H 02/05/21 14:32 Serum Total Protein 7.2 g/dL (6.1-8.1) 01/27/21 11:55 Total Protein 4.9 g/dL (6.3-8.2) L 02/05/21 14:32 Albumin 2.1 g/dL (3.9-5) L 02/05/21 14:32 Albumin/Globulin Ratio 0.8 % 02/05/21 14:32 Eagpi-8-Wmzvefdgg 0.7 g/dL (0.2-0.3) H 01/27/21 11:55 Itsls-2-Wjaagxosk 1.2 g/dL (0.5-0.9) H 01/27/21 11:55 Beta Globulins 0.7 g/dL (0.2-0.5) H 01/27/21 11:55 Gamma Globulins 1.6 g/dL (0.8-1.7) 01/27/21 11:55 Abnorm Protein Band 1 0.5 g/dL H 01/27/21 11:55 PEP Interpretation see below H 01/27/21 11:55 Triglycerides 369 mg/dL (2-149) H 01/28/21 04:00 Lipase 46 units/L (13-60) 02/01/21 04:00 Procalcitonin 2.11 ng/mL (<0.15) 01/25/21 06:22 TSH 0.013 mlU/mL (0.270-4.200) L 01/28/21 10:03 Thyroxine (T4) 3.3 ug/dL (4.0-12.0) L 01/30/21 15:35 Free T3 Index 1.1 pg/mL (2.3-4.2) L 01/30/21 15:35 Arterial Blood Glucose 144 mg/dL (65-95) H 02/08/21 03:30 Arterial Blood Ionized Calcium 4.1 mg/dL (4.6-5.3) L 02/08/21 03:30 Random Vancomycin 13.1 ug/mL (0-40.0) 02/05/21 14:32 Immunofix Electrophor see below H 01/27/21 11:55 ANURAG Screen Negative (Negative) 01/27/21 11:55 Proteinase 3 (PR3) Ab <1.0 AI (<1.0) 01/27/21 11:55 Myeloperoxidase Ab <1.0 AI (<1.0) 01/27/21 11:55 Complement C3 105 mg/dL (82-185) 01/27/21 11:55 Complement C4 17 mg/dL (15-53) 01/27/21 11:55 Coronavirus (PCR) Positive (Negative) A 01/23/21 09:00 Hepatitis A IgM Ab Non-reactive (NonReactive) 01/27/21 11:41 Hep Bs Antigen Nonreactive (Negative) 01/27/21 11:41 Hep B Core IgM Ab Non-reactive (NonReactive) 01/27/21 11:41 Hepatitis C Antibody Non-reactive (NonReactive) 01/27/21 11:41 Miscellaneous Test Flexitest 1 H 01/29/21 Unknown Miscellaneous Test Tnp 01/29/21 Unknown Microbiology: Microbiology 02/03/21 08:44 Peripheral/Venous Blood Culture - Final NO GROWTH AFTER 5 DAYS 02/03/21 08:44 Peripheral/Venous Blood Culture - Final NO GROWTH AFTER 5 DAYS Ramirez/IV: Voiding Method Incontinent Active Medications - Current Medications Current Medications: Generic Name Dose Route Start Last Admin Trade Name Freq PRN Reason Stop Dose Admin Albumin Human 25 gm 02/06/21 08:45 Albumin Human 25% (25 Gm/100 Ml) Inj IV MELECIO PRN Hypotension Amiodarone HCl 200 mg 01/30/21 10:00 02/08/21 10:00 Amiodarone 200 Mg Tab PO 200 mg DAILY JACK Administration Lipase/Protease/Amylase 1 each 01/27/21 11:37 Lipase 10,500/Protease 25,000/Amylase 43,750 (Units) Dr Singer FEEDTUBE PRN PRN For Clogged Feeding Tube Ascorbic Acid 500 mg 02/02/21 11:00 02/08/21 10:00 Ascorbic Acid 500 Mg Tab PO 500 mg BID JACK Administration Cholecalciferol 5,000 unit 02/02/21 11:00 02/08/21 10:00 Cholecalciferol (Vit D3) 5,000 Unit Tab PO 5,000 unit DAILY JACK Administration Dextrose 50 ml 01/29/21 12:24 Dextrose 50% In Water (25gm) 50 Ml Syringe IV Q30MIN PRN Hypoglycemia Protocol Famotidine 20 mg 01/27/21 10:00 02/08/21 10:00 Famotidine 20 Mg/2 Ml Inj IV 20 mg DAILY JACK Administration Fentanyl 50 mcg 02/03/21 15:20 Fentanyl 100 Mcg/2 Ml Inj IV Q10MIN PRN ANALGESIA Heparin Sodium (Porcine) 5,000 unit 01/28/21 09:27 Heparin 10,000 Units/10 Ml Vial IV Q6H PRN Anti-Xa Assay < 0.1 units/ml Hydrophilic Ointment 1 applic 01/25/21 13:27 Lip Therapy Vaseline TP Q2HR PRN Dry Lips Vasopressin 20 unit/ Sodium 101 mls @ 9.09 mls/hr 01/28/21 07:00 01/30/21 08:55 Chloride IV Infused TITR JACK Titration Protocol 0.03 UNITS/MIN Heparin Sodium/Sodium Chloride 25,000 unit in 500 mls @ 30 mls/hr 01/28/21 11:00 02/08/21 15:20 Heparin/ 0.45% Nacl-25,000 Unit/500 Ml IV 1,850 units/hr TITR JACK 37 mls/hr Administration Protocol 1,500 UNITS/HR Fentanyl Citrate 2,000 mcg in 100 mls @ 6.4 mls/hr 02/03/21 16:00 02/08/21 17:40 Fentanyl Drip Premix IV 1 mcg/kg/hr TITR AJCK 6.4 mls/hr Administration Protocol 1 MCG/KG/HR Sodium Chloride 100 mls @ 999 mls/hr 02/06/21 08:45 Nacl 0.9% IV MELECIO PRN Hypotension NORepinephrine/NS 8 MG-250 ML 8 mg in 250 mls @ 3.75 mls/hr 02/06/21 14:00 02/08/21 18:44 Norepinephrine/Ns 8 Mg-250 Ml (Double Conc) IV 24 mcg/min TITRATE JACK 45 mls/hr Titration Protocol 2 MCG/MIN Insulin Human Regular 0 units 01/29/21 13:00 02/08/21 18:21 Insulin Regular, Human 100 Units/1 Ml SUB-Q Not Given Q6HR JACK Protocol Multi-Ingred Cream/Lotion/Oil/Oint 1 applic 01/25/21 13:27 Mineral Oil/Petrolatum, White Ophth Oint 3.5 Gm OU Q4HR PRN Dry Eye(s) Ondansetron HCl 4 mg 01/22/21 23:03 Ondansetron 4 Mg/2 Ml Inj IV Q8H PRN Nausea And Vomiting Senna/Docusate Sodium 1 tab 01/25/21 22:00 02/08/21 17:44 Sennosides/Docusate Sodium 8.6/50 Mg Tab FEEDTUBE Not Given BID JACK Simple Syrup 15 ml 01/27/21 11:37 Simple Syrup 15 Ml FEEDTUBE PRN PRN Hypoglycemia Simple Syrup 30 ml 01/27/21 11:37 Simple Syrup 15 Ml FEEDTUBE PRN PRN Hypoglycemia Sodium Bicarbonate 325 mg 01/27/21 11:37 Sodium Bicarbonate 325 Mg Tab FEEDTUBE PRN PRN For Clogged Feeding Tube Sodium Chloride 10 ml 01/22/21 23:45 02/08/21 10:01 Sodium Chloride 0.9% 10 Ml Flush Syringe IV 10 ml BID JACK Administration Sodium Chloride 10 ml 01/22/21 23:03 Sodium Chloride 0.9% 10 Ml Flush Syringe IV PRN PRN LINE FLUSH Vancomycin HCl 125 mg 02/06/21 12:00 02/08/21 17:41 Vancomycin 250 Mg/10 Ml Oral Liqd PO 02/15/21 12:01 125 mg Q6HR JACK Administration Protocol Voriconazole 300 mg 01/29/21 11:00 02/08/21 10:01 Voriconazole 200 Mg Tab PO 300 mg Q12HR JACK Administration Zinc Sulfate 220 mg 02/02/21 11:00 02/08/21 10:00 Zinc Sulfate 220 Mg Cap PO 220 mg BID JACK Administration Nutrition/Malnutrition Assess - Dietary Evaluation Nutrition/Malnutrition Findings: Nutrition Notes Start: 01/24/21 13:25 Freq: Status: Active Protocol: Document 02/08/21 09:37 (Rec: 02/08/21 09:48 [id number]) Nutrition Notes Initial or Follow up Reassessment Current Diagnosis Sepsis,Respiratory Failure, Malnutrition Other Pertinent Diagnosis covid-19, pneumonia Current Diet Nepro 1.8 at 30 ml/hr Labs/Tests Na 129 BUN 77 Cr 5.3 Pertinent Medications Norepi Height 5 ft 6 in Weight 140.8 kg [place] Body Weight (kg) 64.54 BMI 50.1 Weight change and time frame wt change noted, likely due to edema Weight Status Morbidly Obese Subjective/Other Information Pt tolerating TF at 30 ml/hr. RN informed of correct goal rate. Pt with 3+ pitting generalized edema Percent of energy/protein needs met: 72%/36% Burn Absent Trauma Absent GI Symptoms None Current % PO Negligible Minimum of two criteria No physical signs of malnutrition #1 Nutrition Diagnosis Inadequate oral intake Diagnosis Progress(for reassessment Continues documentation) Is patient on ventilator? Yes Is Patient Ambulatory and/or Out of Bed No REE-([place]-confined to bed) 2638.296 Kcal/Kg value to use for calculation 12 Approximate Energy Requirements Using 1690 kcal/Kg Calculation Used for Recommendations Kcal/kg Additional Notes Protein needs: up to 161 (up to 2.5 g/kgIBW) fluid needs: 1ml/kcal or per MD order Nutrition Intervention Nutrition Support: Nepro at 40 ml/hr with a free water flush of 175 ml q4h Kcal 1,728 Protein (gm) 78 Fluid (mL) 698 Goal #1 Meet at least 75% of kcal and meet protein needs as best as possible via TF Anticipated Discharge Needs: Unable to determine at this time Follow-Up By: 02/12/21 Additional Comments F/u: TF rate and tolerance
[2021-02-08] MEDS: VASOPRESSIN 20 UNIT in SODIUM CHLORIDE 0.9% 100 ML IV SCH (22:23)
[2021-02-08] MEDS: DEXTROSE 50% IN WATER (25GM) 50 ML SYRINGE IV PRN (23:54)
[2021-02-09] MEDS: NORepinephrine/NS 8 MG-250 ML 8 MG/250 ML INFUS..BTL IV SCH (03:35)
[2021-02-09] MEDS: HEPARIN/ 0.45% NACL DRIP 25,000 UNIT/500 ML BAG IV SCH (05:12)
[2021-02-09] MEDS: DEXTROSE 50% IN WATER (25GM) 50 ML SYRINGE IV PRN (05:25)
[2021-02-09] MEDS: VANCOMYCIN 250 MG/10 ML ORAL LIQD PO SCH (05:26)
[2021-02-09] MEDS: ZINC SULFATE 220 MG CAP PO SCH (05:30)
[2021-02-09] MEDS: VASOPRESSIN 20 UNIT in SODIUM CHLORIDE 0.9% 100 ML IV SCH (05:31)
--- NOTE | 2021-02-09 07:19 | Event Note ---
Date: 02/09/21 Called to pronounce 55-year-old male who has been on admission in the intensive care unit for acute metabolic encephalopathy/hepatic encephalopathy, acute hypoxic respiratory failure with bilateral pneumothorax. He had been made a DNR by family. Upon exam:O/E No response to verbal or tactile stimuli. Very obese. 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 Patient pronounced at 0 6:52 AM on February 09, 2021. Peg López was immediately notified by phone on:[phone]
[2021-02-09 07:49] VITALS: BP 113/36
--- NOTE | 2021-02-09 09:07 | Death Summary ---
Summary - Providers Date of service: 02/09/21 Consults: 01/22/21 23:03 Consult to Physician [CONS] Routine Comment: Consulting Provider: KASEY LAGUNA Physician Instructions: Reason For Exam: Acute respiratory failure with hypoxia 01/23/21 16:39 Consult to Physician [CONS] Routine Comment: Consulting Provider: STEVE BLAKE Physician Instructions: Reason For Exam: COVID-19 +ve today/BiPAP[Covid +ve,one wk ago] 01/25/21 11:57 PICC Line Insertion [Consult to PICC Line RN] [CONS] Stat Reason For Exam: ICU Patient Type Line:: PICC 01/25/21 13:27 Consult to Dietitian/Nutrition [CONS] Routine Physician Instructions: Reason For Exam: Reason for Consult: Evaluate nutritional intake 01/25/21 13:33 Consult to Dietitian/Nutrition [CONS] Routine Physician Instructions: Reason For Exam: Reason for Consult: Write/Manage Tube Feeding 01/26/21 11:16 Consult to Physician [CONS] Routine Comment: called office/nunu Consulting Provider: CHRIS ALLEN Physician Instructions: Reason For Exam: SEDRICK 01/28/21 06:22 Consult to Cardiology [CONS] Urgent Consulting Provider: FIOR MCCONNELL Reason For Exam: SVT 01/31/21 13:04 Consult to Physician [CONS] Routine Comment: Consulting Provider: SHANICE KINCAID Physician Instructions: Reason For Exam: ? pneumo Attending: CHRISS STEINER - summary Date of admission: 01/22/21 13:01 Date of : 02/09/21 Reason for admission: Covid pneumonia with severe hypoxic respiratory failure Significant findings: 55-year-old male with morbid obesity venous insufficiency, former smoker who presented to the emergency department on 01/22 for SOB x4 days prior to admission and patient was diagnosed with COVID-19 at OSH on 01/16 after the patient was discharged. Patient had worsening symptoms therefore he presented to [facility]. Patient had fever, chills, headache, cough, shortness of breath, body aches, loss of taste and smell. Upon arrival of EMS patient was saturating at 60% on room air and received albuterol, magnesium, Solu-Medrol. Patient remained hypoxic in spite of being on a nonrebreather and was started on a BiPAP in the emergency department. Patient was admitted to the hospitalist service with consults to ID, pulmonology and later nephrology and cardiology. Patient admitted for acute hypoxic respiratory failure, sepsis, multifocal Covid pneumonia. His hospital course was complicated by rapidly worsening severe hypoxic respiratory failure requiring intubation/mechanical ventilation, bilateral pneumothoraces during chest tube placement, A. fib with RVR, sepsis with shock SEDRICK/acute renal failure requiring hemodialysis, hypercoagulopathy and encephalopathy. Patient required vasopressors to maintain hemodynamics from shock. However, he continued to deteriorate and became severely hypoxic with PO2 36 in spite of being on ventilator with FiO2 100%. He also became very encephalopathic. Genoveva requested DNR and no active management given grave/dismal prognosis. Patient in 48 hours since. Procedures/treatments rendered: CT scans Chest tube placements Mechanical ventilation Hemodialysis Disposition: - Complications Complications: His hospital course was complicated by rapidly worsening severe hypoxic respiratory failure requiring intubation/mechanical ventilation, bilateral pneumothoraces during chest tube placement, A. fib with RVR, sepsis with shock SEDRICK/acute renal failure requiring hemodialysis, hypercoagulopathy and encephalopathy.
== END 2021-02-09 14:11 | DRG 870 ==
LOC: ED 10:44 → IMCU 13:01 → CC1 01-25 15:26
PROVIDERS: ADMIT Internal Medicine; ATTEND Internal Medicine
PROC: 5A09457 Assistance with Respiratory Ventilation, 24-96 Consecutive Hours, Continuous Positive Airway Pressure (ICD-10-PCS; 2021-01-22)
PROC: XW033E5 Introduction of Remdesivir Anti-infective into Peripheral Vein, Percutaneous Approach, New Technology Group 5 (ICD-10-PCS; 2021-01-23)
PROC: 5A1955Z Respiratory Ventilation, Greater than 96 Consecutive Hours (ICD-10-PCS; principal; 2021-01-25)
PROC: 0BH17EZ Insertion of Endotracheal Airway into Trachea, Via Natural or Artificial Opening (ICD-10-PCS; 2021-01-25)
PROC: XW033H5 Introduction of Tocilizumab into Peripheral Vein, Percutaneous Approach, New Technology Group 5 (ICD-10-PCS; 2021-01-25)
PROC: 02HV33Z Insertion of Infusion Device into Superior Vena Cava, Percutaneous Approach (ICD-10-PCS; 2021-01-25)
PROC: B548ZZA Ultrasonography of Superior Vena Cava, Guidance (ICD-10-PCS; 2021-01-25)
PROC: 02H633Z Insertion of Infusion Device into Right Atrium, Percutaneous Approach (ICD-10-PCS; 2021-01-27)
PROC: B548ZZA Ultrasonography of Superior Vena Cava, Guidance (ICD-10-PCS; 2021-01-27)
PROC: 5A1D70Z Performance of Urinary Filtration, Intermittent, Less than 6 Hours Per Day (ICD-10-PCS; 2021-01-27)
PROC: 5A1D70Z Performance of Urinary Filtration, Intermittent, Less than 6 Hours Per Day (ICD-10-PCS; 2021-01-29)
PROC: 5A1D70Z Performance of Urinary Filtration, Intermittent, Less than 6 Hours Per Day (ICD-10-PCS; 2021-01-31)
PROC: 0W9B30Z Drainage of Left Pleural Cavity with Drainage Device, Percutaneous Approach (ICD-10-PCS; 2021-01-31)
PROC: 0W9930Z Drainage of Right Pleural Cavity with Drainage Device, Percutaneous Approach (ICD-10-PCS; 2021-01-31)
PROC: 0W9B30Z Drainage of Left Pleural Cavity with Drainage Device, Percutaneous Approach (ICD-10-PCS; 2021-02-01)
PROC: 5A1D70Z Performance of Urinary Filtration, Intermittent, Less than 6 Hours Per Day (ICD-10-PCS; 2021-02-02)
PROC: 0W9B30Z Drainage of Left Pleural Cavity with Drainage Device, Percutaneous Approach (ICD-10-PCS; 2021-02-03)
PROC: 5A1D70Z Performance of Urinary Filtration, Intermittent, Less than 6 Hours Per Day (ICD-10-PCS; 2021-02-03)
PROC: 4A033R1 Measurement of Arterial Saturation, Peripheral, Percutaneous Approach (ICD-10-PCS; 2021-02-04)
PROC: 5A1D70Z Performance of Urinary Filtration, Intermittent, Less than 6 Hours Per Day (ICD-10-PCS; 2021-02-06)
DX: A41.89 Other specified sepsis (principal); U07.1 COVID-19; E43 Unspecified severe protein-calorie malnutrition; J12.82 Pneumonia due to coronavirus disease 2019; R65.21 Severe sepsis with septic shock; J80 Acute respiratory distress syndrome; N18.6 End stage renal disease; N17.0 Acute kidney failure with tubular necrosis; G93.41 Metabolic encephalopathy; Z68.42 Body mass index [BMI] 45.0-49.9, adult; E87.0 Hyperosmolality and hypernatremia; Z68.43 Body mass index [BMI] 50.0-59.9, adult; I12.0 Hypertensive chronic kidney disease with stage 5 chronic kidney disease or end stage renal disease; J93.9 Pneumothorax, unspecified; D68.59 Other primary thrombophilia; I47.1 Supraventricular tachycardia; E66.01 Morbid (severe) obesity due to excess calories; I87.2 Venous insufficiency (chronic) (peripheral); R79.89 Other specified abnormal findings of blood chemistry; Z99.2 Dependence on renal dialysis; Z87.891 Personal history of nicotine dependence; E87.5 Hyperkalemia; I95.9 Hypotension, unspecified; D69.6 Thrombocytopenia, unspecified; J98.2 Interstitial emphysema; Z66 Do not resuscitate; K72.90 Hepatic failure, unspecified without coma; D72.823 Leukemoid reaction; I48.0 Paroxysmal atrial fibrillation; E83.51 Hypocalcemia
CPT/HCPCS: 36415; 36600; 71045; 74018; 76705; 76770; 80048; 80053; 80074; 80076; 80202; 82140; 82330; 82550; 82728; 82803; 82805; 82947; 82962; 83036; 83520; 83615; 83690; 83735; 84100; 84145; 84165; 84166; 84436; 84443; 84478; 84481; 85007; 85014; 85018; 85025; 85027; 85049; 85379; 85520; 85610; 85730; 86021; 86038; 86140; 86160; 86334; 87040; 87070; 87086; 87205; 93005; 93306; 93970; 94002; 94003; 94660; 95819; G0378; J0153; J0171; J0282; J0456; J0692; J0696; J1100; J1170; J1644; J1650; J1815; J2001; J2060; J2250; J2370; J2704; J2765; J2997; J3010; J3370; J7040; J7050; J7060; U0003